=== PATIENT | male | born 1945 | race Caucasian/White ===

== ENCOUNTER 2022-01-29 19:00 | Inpatient (IN) | payer MEDICARE, OTHER ==
[2022-01-29] MEDS ORDERED: FUROSEMIDE 10 MG/ML 4 ML VIAL IV STA (19:17)
[2022-01-29] MEDS ORDERED: IPRATROPIUM-ALBUTEROL 3 ML NEB INHALATION STA (19:17)
--- NOTE | 2022-01-29 19:20 | ED ---
SOB HPI - General Chief Complaint: Shortness of Breath Stated Complaint: SOB Time Seen by Provider: 01/29/22 19:00 Source: patient, EMS, RN notes reviewed Mode of arrival: EMS Limitations: no limitations - History of Present Illness Initial Comments: 68-year-old male history of renal failure and dialysis whose last dialysis was this morning who states she's had progressively worsening shortness of breath for the past week with exertional dyspnea. He states he been going 50 feet today after dialysis who is very short of breath he uses a walker normally. No fevers chills no nausea vomiting sweats he is a former smoker but denies any history of COPD he states he does feel better with oxygen on however. MD Complaint: shortness of breath - Related Data Allergies Allergy/AdvReac Type Severity Reaction Status Date / Time No Known Allergies Allergy Verified 01/29/22 19:11 Review of Systems ROS Statement: Those systems with pertinent positive or pertinent negative responses have been documented in the HPI. ROS Other: All systems not noted in ROS Statement are negative. Past Medical History Past Medical History: Dialysis, Renal Disease Additional Past Medical History / Comment(s): Heart murmur History of Any Multi-Drug Resistant Organisms: None Reported Additional Past Surgical History / Comment(s): Kidney transplant Past Psychological History: No Psychological Hx Reported Smoking Status: Former smoker Past Alcohol Use History: Rare Past Drug Use History: None Reported General Exam - General Exam Comments Initial Comments: This is a well-developed well-nourished awake alert oriented 4 male Limitations: no limitations General appearance: alert, anxious Head exam: Present: atraumatic, normocephalic, normal inspection Eye exam: Present: normal appearance, PERRL, EOMI. Absent: scleral icterus, conjunctival injection, periorbital swelling ENT exam: Present: normal exam, mucous membranes moist Neck exam: Present: other (He does have a soft collar on he states he had a cervical fracture over a year ago and aggravated it this past June when he fell down escalator. No deficits.). Absent: tenderness, meningismus, lymphadenopathy Respiratory exam: Present: rales, decreased breath sounds (No surgery or bruits). Absent: respiratory distress, wheezes, rhonchi, stridor Cardiovascular Exam: Present: regular rate, normal rhythm, normal heart sounds. Absent: systolic murmur, diastolic murmur, rubs, gallop, clicks GI/Abdominal exam: Present: soft, normal bowel sounds. Absent: distended, tenderness, guarding, rebound, rigid Extremities exam: Present: full ROM, pedal edema, other (Patient is demonstrating sluggish capillary refill left toes and foot.). Absent: tenderness, joint swelling, calf tenderness Back exam: Present: normal inspection Neurological exam: Present: alert, oriented X3, CN II-XII intact Psychiatric exam: Present: normal affect, normal mood Skin exam: Present: warm, dry, intact, normal color. Absent: rash Course Vital Signs 01/29/22 01/29/22 01/29/22 19:04 19:55 20:06 Temperature 98.2 F Pulse Rate 94 86 86 Respiratory 20 Rate Blood Pressure 102/83 O2 Sat by Pulse 98 Oximetry - Reevaluation(s) Reevaluation #1: 01/29/22 20:47 Voice the patient finds that he does still somewhat improved on further questio rupert the patient does state he he's had a flushed feeling and felt hot recently but no overt fevers chills or sweats. He does feel as if he does better with oxygen however. Medical Decision Making - Medical Decision Making I did discuss findings with patient family patient will be admitted to the [facility] group with consultation by Dr. Rios as well as cardiology. No old EKGs to compare the current one with. Patient just recently moved up here from [place] 10 days ago. - Lab Data Result diagrams: 01/29/22 19:26 01/29/22 19:26 Lab Results 01/29/22 01/29/22 01/29/22 Range/Units 19:26 19:26 19:26 WBC 5.6 (3.8-10.6) k/uL RBC 3.92 L (4.30-5.90) m/uL Hgb 12.2 L (13.0-17.5) gm/dL Hct 39.0 (39.0-53.0) % MCV 99.4 (80.0-100.0) fL MCH 31.2 (25.0-35.0) pg MCHC 31.4 (31.0-37.0) g/dL RDW 14.2 (11.5-15.5) % Plt Count 106 L (150-450) k/uL MPV 11.8 Neutrophils % 80 % Lymphocytes % 9 % Monocytes % 8 % Eosinophils % 1 % Basophils % 1 % Neutrophils # 4.5 (1.3-7.7) k/uL Lymphocytes # 0.5 L (1.0-4.8) k/uL Monocytes # 0.4 (0-1.0) k/uL Eosinophils # 0.1 (0-0.7) k/uL Basophils # 0.1 (0-0.2) k/uL PT 12.6 H (9.0-12.0) sec INR 1.2 H (<1.2) APTT 24.6 (22.0-30.0) sec Sodium 139 (137-145) mmol/L Potassium 4.3 (3.5-5.1) mmol/L Chloride 94 L (98-107) mmol/L Carbon Dioxide 29 (22-30) mmol/L Anion Gap 16 mmol/L BUN 31 H (9-20) mg/dL Creatinine 3.45 H (0.66-1.25) mg/dL Est GFR (CKD-EPI)AfAm 19 (>60 ml/min/1.73 sqM) Est GFR (CKD-EPI)NonAf 16 (>60 ml/min/1.73 sqM) Glucose 102 H (74-99) mg/dL Plasma Lactic Acid Ryan (0.7-2.0) mmol/L Calcium 8.3 L (8.4-10.2) mg/dL Magnesium 1.8 (1.6-2.3) mg/dL Total Bilirubin 0.8 (0.2-1.3) mg/dL AST 41 (17-59) U/L ALT 25 (4-49) U/L Alkaline Phosphatase 121 (38-126) U/L Troponin I (0.000-0.034) ng/mL NT-Pro-B Natriuret Pep pg/mL Total Protein 7.1 (6.3-8.2) g/dL Albumin 4.1 (3.5-5.0) g/dL 01/29/22 01/29/22 01/29/22 Range/Units 19:26 19:26 19:26 WBC (3.8-10.6) k/uL RBC (4.30-5.90) m/uL Hgb (13.0-17.5) gm/dL Hct (39.0-53.0) % MCV (80.0-100.0) fL MCH (25.0-35.0) pg MCHC (31.0-37.0) g/dL RDW (11.5-15.5) % Plt Count (150-450) k/uL MPV Neutrophils % % Lymphocytes % % Monocytes % % Eosinophils % % Basophils % % Neutrophils # (1.3-7.7) k/uL Lymphocytes # (1.0-4.8) k/uL Monocytes # (0-1.0) k/uL Eosinophils # (0-0.7) k/uL Basophils # (0-0.2) k/uL PT (9.0-12.0) sec INR (<1.2) APTT (22.0-30.0) sec Sodium (137-145) mmol/L Potassium (3.5-5.1) mmol/L Chloride (98-107) mmol/L Carbon Dioxide (22-30) mmol/L Anion Gap mmol/L BUN (9-20) mg/dL Creatinine (0.66-1.25) mg/dL Est GFR (CKD-EPI)AfAm (>60 ml/min/1.73 sqM) Est GFR (CKD-EPI)NonAf (>60 ml/min/1.73 sqM) Glucose (74-99) mg/dL Plasma Lactic Acid Ryan 2.3 H* (0.7-2.0) mmol/L Calcium (8.4-10.2) mg/dL Magnesium (1.6-2.3) mg/dL Total Bilirubin (0.2-1.3) mg/dL AST (17-59) U/L ALT (4-49) U/L Alkaline Phosphatase (38-126) U/L Troponin I 0.234 H* (0.000-0.034) ng/mL NT-Pro-B Natriuret Pep 97459 pg/mL Total Protein (6.3-8.2) g/dL Albumin (3.5-5.0) g/dL - EKG Data -: EKG Interpreted by Ca EKG shows normal: sinus rhythm EKG Comments: Sinus rhythm rate of 91. Interval 168 QRS duration 106 QT/QTC 393/441 borderline left axis deviation nonspecific T-wave configuration PVCs noted - Radiology Data Radiology results: report reviewed (Imaging reviewed evidence a right middle lobe infiltrate.), image reviewed Disposition Clinical Impression: Non-STEMI (non-ST elevated myocardial infarction), Pneumonia, Chronic renal failure, Bronchospasm Disposition: ADMITTED IP TO THIS HOSP Condition: Fair Referrals: None,Stated [Primary Care Provider] - 1-2 days Decision Date: 01/29/22 Decision Time: 20:53
[2022-01-29 19:35] LABS: Basophils # (A) 0.1 k/uL (0-0.2); Basophils % (A) 1 %; Eosinophils # (A) 0.1 k/uL (0-0.7); Eosinophils % (A) 1 %; HGB 12.2 gm/dL (13.0-17.5); Lymphocytes # (A) 0.5 k/uL (1.0-4.8); Lymphocytes % (A) 9 %; MCH 31.2 pg (25.0-35.0); MCHC 31.4 g/dL (31.0-37.0); MCV 99.4 fL (80.0-100.0); Mean Platelet Volume 11.8; Monocytes # (A) 0.4 k/uL (0-1.0); Monocytes % (A) 8 %; Neutrophils # (A) 4.5 k/uL (1.3-7.7); Neutrophils % (A) 80 %; Platelet Count 106 k/uL (150-450); RBC 3.92 m/uL (4.30-5.90); RDW 14.2 % (11.5-15.5); WBC 5.6 k/uL (3.8-10.6)
--- NOTE | 2022-01-29 19:41 | XR ---
EXAMINATION TYPE: XR chest 2V DATE OF EXAM: 01/29/2022 7:36 PM COMPARISON: None TECHNIQUE: XR chest 2V Frontal and lateral views of the chest. CLINICAL INDICATION:Male, 76 years old with history of difficulty breathing; FINDINGS: Lungs/Pleura: Obscuration of the right heart border with airspace opacities in the right lung base. N o evidence pneumothorax pleural effusion. Pulmonary vascularity: Unremarkable. Heart/mediastinum: Cardiomediastinal silhouette is unremarkable. Atherosclerotic calcifications are seen in the aorta. Musculoskeletal: No acute osseous pathology. IMPRESSION: Right middle lobe pneumonia.
[2022-01-29 19:44] LABS: Albumin 4.1 g/dL (3.5-5.0); Calcium 8.3 mg/dL (8.4-10.2); Magnesium 1.8 mg/dL (1.6-2.3); Potassium 4.3 mmol/L (3.5-5.1); Total Bilirubin 0.8 mg/dL (0.2-1.3); Total Protein 7.1 g/dL (6.3-8.2)
[2022-01-29 20:20] LABS: INR 1.2 (<1.2); Partial Thromboplastin Time 24.6 sec (22.0-30.0); Prothrombin Time 12.6 sec (9.0-12.0)
[2022-01-29] MEDS ORDERED: cefTRIAXone IN SWFI 1,000 MG/10 ML SYRINGE IVP STA (20:36)
[2022-01-29] MEDS ORDERED: NITROGLYCERIN SL TABS 0.4 MG TAB SUBLINGUAL PRN (20:53)
[2022-01-29] MEDS ORDERED: HEPARIN SODIUM 1,000 UN/ML (10ML VL) IV ONE (20:53)
[2022-01-29] MEDS ORDERED: AZITHROMYCIN 500 MG in SODIUM CHLORIDE 0.9% 250 ML IVPB STA (20:56)
[2022-01-29] MEDS: HEPARIN SOD,PORK IN 0.45% NACL 25,000 UNIT in 0.45% NACL 1 250ML.BAG IV SCH (22:02)
--- NOTE | 2022-01-30 03:04 | P.HPIM ---
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 he has not established OP docs for follow up. but has been receiving regular HD. last session was this morning of 01/29 after his session of HD today, he noticed that he got really short of breath after very short distance of 50 feet. this is unusual to him , he also reports SOB at rest over the past few days, this has been progressively getting worse, he also reports orthopnea. productive cough of yellowish sputum , denies any hemoptysis denies chest pain , denies fever, but does report chills. he is not aware of any sick contacts. He has travelled by car for many hours, and took very little stops if any. he denies any new calf tenderness, denies any history of blood clots. he is not on blood thinner at home. he has history of ESRD for many years now , he had renal transplant 1992 that failed later, and then had another transplant 1995 that has only recently failed and went back to HD May 2021. since he moved to [place] he has been receiving his HD 3 times a week as scheduled , no missed sessions. he reports an old neck injury for which he has been wearing soft neck collar as needed for pain, and was switched by RN to stiff neck collar. he otherwise denies any GI bleeding , abd pain , or focal neuro deficits. he normally walks with a walker. workup in the ED showed no leukocytosis , Hgb 12.2 lactic acidosis . elevated cr with history of ESRD. elevated trops . CXR showed right mid lobe infilterate. Review of Systems Pertinent positives as noted in HPI. All other systems were reviewed and are negative Past Medical History Past Medical History: Dialysis, Renal Disease Additional Past Medical History / Comment(s): Heart murmur History of Any Multi-Drug Resistant Organisms: None Reported Additional Past Surgical History / Comment(s): Kidney transplant Past Psychological History: No Psychological Hx Reported Smoking Status: Former smoker Past Alcohol Use History: Rare Past Drug Use History: None Reported - Past Family History famly Additional Family Medical History / Comment(s): father of stroke , mother pancreatic cancer Medications and Allergies Home Medications Medication Instructions Recorded Confirmed Type Atorvastatin [Lipitor] 10 mg PO DIRECTED 01/29/22 01/29/22 History Cholecalciferol [Vitamin D3 (25 25 mcg PO DAILY 01/29/22 01/29/22 History Mcg = 1000 Iu)] [place]-3/Dha/Epa/Fish Oil [Fish Oil 1 cap PO DAILY 01/29/22 01/29/22 History 1,000 mg Softgel] Ondansetron [Zofran] 4 mg PO DAILY PRN 01/29/22 01/29/22 History Sevelamer Carbonate 1,600 mg PO TID-W/MEALS 01/29/22 01/29/22 History Unknown Depression Medication 1 dose PO DAILY 01/29/22 01/29/22 History oxyCODONE-APAP 5-325MG [Percocet 1 tab PO BID PRN 01/29/22 01/29/22 History 5-325 mg] polyethylene glycoL 3350 [Miralax] 17 gm PO DAILY PRN 01/29/22 01/29/22 History rOPINIRole HCL [Requip] 2 mg PO DIRECTED 01/29/22 01/29/22 History Allergies Allergy/AdvReac Type Severity Reaction Status Date / Time No Known Allergies Allergy Verified 01/29/22 22:19 Physical Exam Vitals: Vital Signs Temp Pulse Resp BP Pulse Ox 01/30/22 00:36 98.3 F 96 24 99/66 100 01/29/22 21:38 85 20 117/80 98 01/29/22 20:06 86 01/29/22 19:55 86 01/29/22 19:04 98.2 F 94 20 102/83 98 Intake and Output 01/29/22 01/29/22 01/30/22 14:59 22:59 06:59 Other: Weight 68.039 kg Constitutional: No acute distress, conversant, pleasant Eyes: Anicteric sclerae, moist conjunctiva, Pupils equal round reactive to light ENMT: NC/AT Oropharynx clear, no erythema, or exudates Neck: neck fixed in stiff neck collar Lungs: Clear to auscultation, no wheezing or rales Clear to percussion Normal respiratory effort, no accessory muscle use Cardiovascular: Heart regular in rate and rhythm, No murmurs, gallops, or rubs No peripheral edema Abdominal: Soft Nontender, no guarding, rebound or rigidity Abdomen moving with respiration Normoactive bowel sounds No hepatomegaly, No splenomegaly No palpable mass No abdominal wall hernia noted Skin: Normal temperature, tone, texture, turgor No induration No subcutaneous nodules No rash, lesions No ulcers Extremities: positive left arm fistula thrill No digital cyanosis No clubbing post tibial pulses intact and symmetrical Radial pulses intact and symmetrical No calf tenderness Psychiatric: Alert and oriented to person, place and time Appropriate affect fair judgement Neuro Muscles Strength 4/5 in all 4 extremities Sensation to light touch grossly present throughout Cranial nerves II-XII grossly intact No focal sensory deficits Lymphatics: no palpable cervical or supraclavicular , or inguinal lymph nodes Results CBC & Chem 7: 01/29/22 19:01/29/22: Labs: Abnormal Lab Results - Last 24 Hours (Table) 01/29/22 01/29/22 01/29/22 Range/Units 19:26 19: 19: RBC 3.92 L (4.30-5.90) m/uL Hgb 12.2 L (13.0-17.5) gm/dL Plt Count 106 L (150-450) k/uL Lymphocytes # 0.5 L (1.0-4.8) k/uL PT 12.6 H (9.0-12.0) sec INR 1.2 H (<1.2) Chloride 94 L (98-107) mmol/L BUN 31 H (9-20) mg/dL Creatinine 3.45 H (0.66-1.25) mg/dL Glucose 102 H (74-99) mg/dL Plasma Lactic Acid Ryan (0.7-2.0) mmol/L Calcium 8.3 L (8.4-10.2) mg/dL Troponin I (0.000-0.034) ng/mL 01/29/22 01/29/22 01/29/22 Range/Units 19:26 19: 22:30 RBC (4.30-5.90) m/uL Hgb (13.0-17.5) gm/dL Plt Count (150-450) k/uL Lymphocytes # (1.0-4.8) k/uL PT (9.0-12.0) sec INR (<1.2) Chloride (98-107) mmol/L BUN (9-20) mg/dL Creatinine (0.66-1.25) mg/dL Glucose (74-99) mg/dL Plasma Lactic Acid Ryan 2.3 H* (0.7-2.0) mmol/L Calcium (8.4-10.2) mg/dL Troponin I 0.234 H* 0.226 H* (0.000-0.034) ng/mL 01/30/22 Range/Units 00:07 RBC (4.30-5.90) m/uL Hgb (13.0-17.5) gm/dL Plt Count (150-450) k/uL Lymphocytes # (1.0-4.8) k/uL PT (9.0-12.0) sec INR (<1.2) Chloride (98-107) mmol/L BUN (9-20) mg/dL Creatinine (0.66-1.25) mg/dL Glucose (74-99) mg/dL Plasma Lactic Acid Ryan (0.7-2.0) mmol/L Calcium (8.4-10.2) mg/dL Troponin I 0.236 H* (0.000-0.034) ng/mL Assessment and Plan Assessment: community acquired lobar pneumonia lactic acidosis follow up cultures urine legionella ag initiate on azithromycin and rocephin symptomatic control supplemental oxygen as needed tylenol for fever CXR showed right lobar pneumonia ESRD on HD nephrology consult Progressive SOB , rule out underlying cardiac disease elevated trops possibly secondary to ESRD trend trops monitoring tech cardiology consult EKG no acute ST changes check Echo cardiogram heparin gtt continue aspirin statin nitro prn for chest pain full code DVT PPX on heparin gtt for ACS
[2022-01-30] MEDS ORDERED: NALOXONE 0.4 MG/ML 1 ML VIAL IV PRN (03:05)
[2022-01-30] MEDS ORDERED: MELATONIN 3 MG TABLET PO PRN (03:05)
[2022-01-30] MEDS ORDERED: ACETAMINOPHEN TAB 325 MG TAB PO PRN (03:05)
[2022-01-30] MEDS: SEVELAMER 800 MG TAB PO SCH ×3 (08:15→20:51)
[2022-01-30] MEDS ORDERED: ASPIRIN 325 MG TAB PO SCH (09:00)
[2022-01-30] MEDS: IPRATROPIUM-ALBUTEROL 3 ML NEB INHALATION PRN (11:30)
--- NOTE | 2022-01-30 11:50 | P.NPCON ---
History of Present Illness - Reason for Consult end stage renal disease - History of Present Illness Patient is a 76-year-old male with end-stage renal disease on hemodialysis on a Friday schedule. Patient has just moved from [place] about 10 days ago. He has a previous history of 2 kidney transplants the first one in 1992 which was at donor allograft and the second one in 1995 from his niece which lasted for about 25 years. Patient was started on hemodialysis in May 2021. Patient is admitted to the hospital with complaints of shortness of breath. He did have his hemodialysis treatment in the morning at with about 2 L of ultrafiltration. Patient reported feeling weak and tired with the possible low-grade fever. He does not have any significant urine output No previous issues with fluid overload and increased weight gains during treatments. Next Chest x-ray shows right middle lobe pneumonia Review of Systems As per HPI Past Medical History Past Medical History: Dialysis, Renal Disease Additional Past Medical History / Comment(s): Heart murmur History of Any Multi-Drug Resistant Organisms: None Reported Additional Past Surgical History / Comment(s): Kidney transplant Past Psychological History: No Psychological Hx Reported Smoking Status: Former smoker Past Alcohol Use History: Rare Past Drug Use History: None Reported - Past Family History famly Additional Family Medical History / Comment(s): father of stroke , mother pancreatic cancer Medications and Allergies Home Medications Medication Instructions Recorded Confirmed Type Atorvastatin [Lipitor] 10 mg PO HS 01/29/22 01/30/22 History Cholecalciferol [Vitamin D3 (25 25 mcg PO DAILY 01/29/22 01/29/22 History Mcg = 1000 Iu)] [place]-3/Dha/Epa/Fish Oil [Fish Oil 1 cap PO DAILY 01/29/22 01/29/22 History 1,000 mg Softgel] Ondansetron [Zofran] 4 mg PO DAILY PRN 01/29/22 01/29/22 History Sevelamer Carbonate 1,600 mg PO TID-W/MEALS 01/29/22 01/29/22 History oxyCODONE-APAP 5-325MG [Percocet 1 tab PO BID PRN 01/29/22 01/29/22 History 5-325 mg] polyethylene glycoL 3350 [Miralax] 17 gm PO DAILY PRN 01/29/22 01/29/22 History rOPINIRole HCL [Requip] 2 mg PO BID 01/29/22 01/30/22 History Bumetanide [BUMEX] 2 mg PO BID 01/30/22 01/30/22 History Isosorbide Mononitrate ER [Imdur] 30 mg PO DAILY 01/30/22 01/30/22 History Magnesium Oxide [Mag-Ox] 400 mg PO DAILY 01/30/22 01/30/22 History PARoxetine [Paxil] 10 mg PO DAILY 01/30/22 01/30/22 History Allergies Allergy/AdvReac Type Severity Reaction Status Date / Time No Known Allergies Allergy Verified 01/29/22 22:19 Physical Exam Vitals: Vital Signs Temp Pulse Resp BP Pulse Ox 01/30/22 11:37 90 16 01/30/22 11:31 91 16 01/30/22 08:07 97.9 F 95 18 126/91 98 01/30/22 07:43 100 01/30/22 07:20 97.9 F 100 19 116/93 99 01/30/22 00:36 98.3 F 96 24 99/66 100 01/29/22 21:38 85 20 117/80 98 01/29/22 20:06 86 01/29/22 19:55 86 01/29/22 19:04 98.2 F 94 20 102/83 98 Intake and Output 01/29/22 01/30/22 01/30/22 22:59 06:59 14:59 Intake Total 44.363 Balance 44.363 Intake: Intake, IV Titration 44.363 Amount Heparin Sod,Pork in 0.45% 44.363 NaCl 25,000 unit In 0.45 % NaCl 1 250ml.bag @ 12 UNITS/KG/HR 8.165 mls/hr IV .Q24H [facility] Rx#: [id number] Other: Weight 68.039 kg Patient is awake, comfortable, not in any acute distress Alert oriented 3 Examination of the heart S1 and S2 Examination of the lungs bilateral breath sounds are heard Abdomen is soft nontender Examination of the lower extremities shows no significant edema [employer] exam grossly intact Results - Lab Results Most recent lab results Calcium 8.3 mg/dL (8.4-10.2) L 01/29/22 19:26 Magnesium 1.8 mg/dL (1.6-2.3) 01/29/22 19:26 01/29/22 19:26 01/29/22 19:26 Assessment and Plan Assessment: 1. End-stage renal disease on hemodialysis on a Friday schedule via left arm AV fistula 2. Acute hypoxic respiratory failure secondary to pneumonia 3. Right middle lobe pneumonia maintained on antibiotics 4. History of 2 previous kidney transplants initial one in 1992 which was a donor and the second one in 1995 which lasted for about 25 years. This was from his knees. Patient was restarted on dialysis in May 2021 5. CK D mineral bone disorder Plan: Hemodialysis in a.m. Continue antibiotics for pneumonia No evidence of significant fluid overload currently to warrant an extra treatment today. Continue with phosphate binders Thank you for the consultation. We'll continue to follow the patient with you during his hospitalization
--- NOTE | 2022-01-30 13:34 | P.PN ---
Subjective Progress Note Date: 01/30/22 Principal diagnosis: sob Patient is feeling okay currently. Still having shortness of breath. No chest pain. No significant cough. No fevers or chills. Currently requiring 2 L of nasal cannula. Objective - Vital Signs Vital signs: Vital Signs Temp 97.9 F 01/30/22 08:07 Pulse 90 01/30/22 11:37 Resp 16 01/30/22 11:37 BP 126/91 01/30/22 08:07 Pulse Ox 98 01/30/22 08:07 FiO2 Intake & Output 01/29/22 01/30/22 01/30/22 18:59 06:59 18:59 Intake Total 44.363 Balance 44.363 Weight 68.039 kg Intake: Intake, IV Titration 44.363 Amount Heparin Sod,Pork in 0.45% 44.363 NaCl 25,000 unit In 0.45 % NaCl 1 250ml.bag @ 12 UNITS/KG/HR 8.165 mls/hr IV .Q24H [facility] Rx#: [id number] - Exam Constitutional: No acute distress, conversant, pleasant Eyes:Anicteric sclerae, moist conjunctiva, no lid-lag, PERRLA, ENMT: Oropharynx clear, no erythema, exudates Neck: Supple, FROM, no masses, or JVD, No carotid bruits, No thyromegaly Lungs: Clear to auscultation, Clear to percussion, Normal respiratory effort, no accessory muscle use Cardiovascular: Heart regular in rate and rhythm, No murmurs, gallops, or rubs, No peripheral edema Abdominal: Soft, Nontender, no guarding, rebound or rigidity, Normoactive bowel sounds, No hepatomegaly, No splenomegaly, No palpable mass Skin: Normal temperature, tone, texture, turgor, no induration, No subcutaneous nodules, No rash, lesions, No ulcers Extremities: No digital cyanosis, No clubbing, Pedal pulses intact and symmetrical, Radial pulses intact and symmetrical, No calf tenderness Psychiatric: Alert and oriented to person, place and time, appropriate affect, intact judgement Neuro: Muscles Strength 5/5 in all 4 extremities, Sensation to light touch grossly present throughout, Cranial nerves II-XII grossly intact, no focal sensory deficits - Labs CBC & Chem 7: 01/29/22 19:26 01/29/22 19:26 Labs: Abnormal Lab Results - Last 24 Hours (Table) 01/29/22 01/29/22 01/29/22 Range/Units 19:26 19:26 19:26 RBC 3.92 L (4.30-5.90) m/uL Hgb 12.2 L (13.0-17.5) gm/dL Plt Count 106 L (150-450) k/uL Lymphocytes # 0.5 L (1.0-4.8) k/uL PT 12.6 H (9.0-12.0) sec INR 1.2 H (<1.2) APTT (22.0-30.0) sec Chloride 94 L (98-107) mmol/L BUN 31 H (9-20) mg/dL Creatinine 3.45 H (0.66-1.25) mg/dL Glucose 102 H (74-99) mg/dL Plasma Lactic Acid Ryan (0.7-2.0) mmol/L Calcium 8.3 L (8.4-10.2) mg/dL Troponin I (0.000-0.034) ng/mL Procalcitonin (0.02-0.09) ng/mL 01/29/22 01/29/22 01/29/22 Range/Units 19:26 19:26 20:39 RBC (4.30-5.90) m/uL Hgb (13.0-17.5) gm/dL Plt Count (150-450) k/uL Lymphocytes # (1.0-4.8) k/uL PT (9.0-12.0) sec INR (<1.2) APTT (22.0-30.0) sec Chloride (98-107) mmol/L BUN (9-20) mg/dL Creatinine (0.66-1.25) mg/dL Glucose (74-99) mg/dL Plasma Lactic Acid Ryan 2.3 H* (0.7-2.0) mmol/L Calcium (8.4-10.2) mg/dL Troponin I 0.234 H* (0.000-0.034) ng/mL Procalcitonin 0.23 H (0.02-0.09) ng/mL 01/29/22 01/30/22 01/30/22 Range/Units 22:30 00:07 02:50 RBC (4.30-5.90) m/uL Hgb (13.0-17.5) gm/dL Plt Count (150-450) k/uL Lymphocytes # (1.0-4.8) k/uL PT (9.0-12.0) sec INR (<1.2) APTT 50.2 H (22.0-30.0) sec Chloride (98-107) mmol/L BUN (9-20) mg/dL Creatinine (0.66-1.25) mg/dL Glucose (74-99) mg/dL Plasma Lactic Acid Ryan (0.7-2.0) mmol/L Calcium (8.4-10.2) mg/dL Troponin I 0.226 H* 0.236 H* (0.000-0.034) ng/mL Procalcitonin (0.02-0.09) ng/mL Assessment and Plan Plan: Community acquired lobar pneumonia Lactic acidosis, resolved follow up cultures urine legionella ag Continue azithromycin and rocephin supplemental oxygen as needed tylenol for fever as needed ESRD on HD nephrology is following Progressive SOB likely secondary to above, rule out underlying cardiac disease Flattly elevated trops possibly secondary to ESRD 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
--- NOTE | 2022-01-30 14:00 | P.CNPUL ---
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 Most recently patient was restarted on hemodialysis in May 2021. Other medical history includes smoking history, and bowel resection for bowel obstruction. Patient carries a [id number] smoki ng history, in remission for the past 6 years. He denies having a diagnosis of COPD, not any inhalers or breathing treatments on a regular basis, he recently started wearing oxygen. His hemodialysis is on Tuesdays and Saturdays. On 01/29/2022 patient presented to the emergency department per EMS, with complaints of progressive shortness of breath for the past week. Patient could hardly walk 50 feet, denied any chest pain, no fever, no chills, no nausea, mild cough, with some phlegm production. Patient has a c-collar neck brace in place for history of neck fracture 2 years ago and a fall more recently. Chest x-ray in emergency department showed right middle lobe pneumonia. Patient had a white count of 5.6, hemoglobin of 12.2, electrolytes were unremarkable, sodium was 139, potassium is 4.3, BUN was 31 and creatinine is 3.45, his proBNP was 68,200, troponins were 0.234, 0.226, 0.236. Progesterone level was 0.23 not significantly elevated especially in view of his impaired renal function. COVID-19 PCR was negative. Patient was started on azithromycin and Rocephin for possibility of underlying community acquired pneumonia, he was evaluated by cardiology and was started on heparin infusion for possibility non-ST elevated myocardial infarction. Review of Systems All systems: negative Constitutional: Reports weakness, Denies chills, Denies fever Eyes: denies blurred vision, denies pain Ears, nose, mouth and throat: Denies headache, Denies sore throat Cardiovascular: Denies chest pain, Denies shortness of breath Respiratory: Reports dyspnea, Denies cough Gastrointestinal: Denies abdominal pain, Denies diarrhea, Denies nausea, Denies vomiting Musculoskeletal: Denies myalgias Integumentary: Denies pruritus, Denies rash Neurological: Denies numbness, Denies weakness Psychiatric: Denies anxiety, Denies depression Endocrine: Denies fatigue, Denies weight change Past Medical History Past Medical History: Dialysis, Renal Disease Additional Past Medical History / Comment(s): Heart murmur History of Any Multi-Drug Resistant Organisms: None Reported Additional Past Surgical History / Comment(s): Kidney transplant Past Psychological History: No Psychological Hx Reported Smoking Status: Former smoker Past Alcohol Use History: Rare Past Drug Use History: None Reported - Past Family History famly Additional Family Medical History / Comment(s): father of stroke , mother pancreatic cancer Medications and Allergies Home Medications Medication Instructions Recorded Confirmed Type Atorvastatin [Lipitor] 10 mg PO HS 01/29/22 01/30/22 History Cholecalciferol [Vitamin D3 (25 25 mcg PO DAILY 01/29/22 01/29/22 History Mcg = 1000 Iu)] [place]-3/Dha/Epa/Fish Oil [Fish Oil 1 cap PO DAILY 01/29/22 01/29/22 History 1,000 mg Softgel] Ondansetron [Zofran] 4 mg PO DAILY PRN 01/29/22 01/29/22 History Sevelamer Carbonate 1,600 mg PO TID-W/MEALS 01/29/22 01/29/22 History oxyCODONE-APAP 5-325MG [Percocet 1 tab PO BID PRN 01/29/22 01/29/22 History 5-325 mg] polyethylene glycoL 3350 [Miralax] 17 gm PO DAILY PRN 01/29/22 01/29/22 History rOPINIRole HCL [Requip] 2 mg PO BID 01/29/22 01/30/22 History Bumetanide [BUMEX] 2 mg PO BID 01/30/22 01/30/22 History Isosorbide Mononitrate ER [Imdur] 30 mg PO DAILY 01/30/22 01/30/22 History Magnesium Oxide [Mag-Ox] 400 mg PO DAILY 01/30/22 01/30/22 History PARoxetine [Paxil] 10 mg PO DAILY 01/30/22 01/30/22 History Allergies Allergy/AdvReac Type Severity Reaction Status Date / Time No Known Allergies Allergy Verified 01/29/22 22:19 Physical Exam Vitals: Vital Signs Temp Pulse Resp BP Pulse Ox 01/30/22 11:37 90 16 01/30/22 11:31 91 16 01/30/22 08:07 97.9 F 95 18 126/91 98 01/30/22 07:43 100 01/30/22 07:20 97.9 F 100 19 116/93 99 01/30/22 00:36 98.3 F 96 24 99/66 100 01/29/22 21:38 85 20 117/80 98 01/29/22 20:06 86 01/29/22 19:55 86 01/29/22 19:04 98.2 F 94 20 102/83 98 Intake and Output 01/29/22 01/30/22 01/30/22 22:59 06:59 14:59 Intake Total 44.363 Balance 44.363 Intake: Intake, IV Titration 44.363 Amount Heparin Sod,Pork in 0.45% 44.363 NaCl 25,000 unit In 0.45 % NaCl 1 250ml.bag @ 12 UNITS/KG/HR 8.165 mls/hr IV .Q24H COUNT [facility]CLUDES [facility] Rx#: [id number] Other: Weight 68.039 kg GENERAL EXAM: Alert, very pleasant, 76-year-old white male, sitting up in the recliner, in the emergency department, no acute distress, on 2 L of oxygen satting 98%, comfortable in no apparent distress. HEAD: Normocephalic/atraumatic. EYES: Normal reaction of pupils, equal size. Conjunctiva pink, sclera white. NOSE: Clear with pink turbinates. THROAT: No erythema or exudates. NECK: No masses, no JVD, no thyroid enlargement, no adenopathy. Patient has a C collar neck brace in place CHEST: No chest wall deformity. Symmetrical expansion. LUNGS: Equal air entry with no crackles, wheeze, rhonchi or dullness. CVS: Regular rate and rhythm, normal S1 and S2, no gallops, no murmurs, no rubs ABDOMEN: Soft, nontender. No hepatosplenomegaly, normal bowel sounds, no guarding or rigidity. EXTREMITIES: No clubbing, no edema, no cyanosis, 2+ pulses and upper and lower extremities. MUSCULOSKELETAL: Muscle strength and tone normal. SPINE: No scoliosis or deformity SKIN: No rashes CENTRAL NERVOUS SYSTEM: Alert and oriented -3. No focal deficits, tone is normal in all 4 extremities. PSYCHIATRIC: Alert and oriented -3. Appropriate affect. Intact judgment and insight. Results - Laboratory Findings CBC and BMP: 01/29/22 19:26 01/29/22 19:26 PT/INR, D-dimer PT 12.6 sec (9.0-12.0) H 01/29/22 19: INR 1.2 (<1.2) H 01/29/22 19:26 Abnormal lab findings: Abnormal Labs 01/29/22 01/29/22 01/29/22 19:26 19:26 19:26 RBC 3.92 L Hgb 12.2 L Plt Count 106 L Lymphocytes # 0.5 L PT 12.6 H INR 1.2 H APTT Chloride 94 L BUN 31 H Creatinine 3.45 H Glucose 102 H Plasma Lactic Acid Ryan Calcium 8.3 L Troponin I Procalcitonin 01/29/22 01/29/22 01/29/22 19: 19: 20:39 RBC Hgb Plt Count Lymphocytes # PT INR APTT Chloride BUN Creatinine Glucose Plasma Lactic Acid Ryan 2.3 H* Calcium Troponin I 0.234 H* Procalcitonin 0.23 H 01/29/22 01/30/22 01/30/22 22:30 00:07 02:50 RBC Hgb Plt Count Lymphocytes # PT INR APTT 50.2 H Chloride BUN Creatinine Glucose Plasma Lactic Acid Ryan Calcium Troponin I 0.226 H* 0.236 H* Procalcitonin - Diagnostic Findings Chest x-ray: report reviewed, image reviewed Assessment and Plan Plan: Assessment: #1. Shortness of breath, with the possibility of coronary acquired pneumonia, and acute exacerbation of congestive heart failure #2. Elevated troponins, rule out non-ST elevated myocardial infarction #3. End-stage renal disease on hemodialysis on Friday schedule #4. History of smoking, currently in remission for the past 6 years, patient Shirley [id number] smoking history #5. Chronic hypoxic respiratory failure patient recently started wearing oxygen #6. History of renal transplant 2, in 1992 from a donor, and in 1995 from a living donor, who was patient's niece #7. History of neck fracture, and patient wears a c-collar Plan: Continue antibiotics Continue breathing treatments We will obtain sputum for culture Hemodialysis per nephrology Cardiology recommendations We'll continue to follow his clinical course I have personally seen and examined the patient, performed the documentation and the assessment and plan as written. Number of minutes spent on the visit: [15] Time with Patient: Greater than 30
--- NOTE | 2022-01-30 19:09 | CA ---
Transthoracic Echo Report Name: John Benedict Age: 76 Gender: M : 1945 Exam Date: 01/30/2022 08:48 Exam Location: [facility] Ht (in): 69 Wt (lb): 150 Ordering Physician: Clare Nelson MD Attending/Referring Phys: [id number], Leslie Data Entry Email Processor Irene Luna RDCS Procedure CPT: Indications: orthopnea , progressive SOB Cardiac Hx: Technical Quality: Technically difficult study Contrast 1: Total Dose (mL): Contrast 2: Lumason Total Dose (mL): MEASUREMENTS (Male / Female) Normal Values 2D ECHO LV Diastolic Diameter PLAX 5.3 cm 4.2 - 5.9 / 3.9 - 5.3 cm LV Systolic Diameter PLAX 4.7 cm IVS Diastolic Thickness 1.2 cm 0.6 - 1.0 / 0.6 - 0.9 cm LVPW Diastolic Thickness 1.6 cm 0.6 - 1.0 / 0.6 - 0.9 cm LV Relative Wall Thickness 0.5 RV Internal Dim ED PLAX 3.8 cm LA Systolic Diameter LX 4.8 cm 3.0 - 4.0 / 2.7 - 3.8 cm LA Volume 115.3 cm??? 18 - 58 / 22 - 52 cm??? M-MODE Aortic Root Diameter MM 3.4 cm LA Systolic Diameter MM 5.1 cm LA Ao Ratio MM 1.5 MV E Point Septal Separation 0.9 cm AV Cusp Separation MM 0.7 cm DOPPLER AV Peak Velocity 213.3 cm/s AV Peak Gradient 18.2 mmHg AV Mean Velocity 140.5 cm/s AV Mean Gradient 9.3 mmHg AV Velocity Time Integral 37.7 cm LVOT Peak Velocity 50.9 cm/s LVOT Peak Gradient 1.0 mmHg MV Area PHT 8.5 cm??? Mitral E Point Velocity 70.7 cm/s Mitral A Point Velocity 38.4 cm/s Mitral E to A Ratio 1.8 MV Deceleration Time 88.9 ms MV E' Velocity 3.1 cm/s Mitral E to MV E' Ratio 23.1 TR Peak Velocity 304.9 cm/s TR Peak Gradient 37.2 mmHg Right Ventricular Systolic Press 40.2 mmHg FINDINGS Left Ventricle Left ventricular ejection fraction is estimated at15- 20%. Severely reduced global left ventricular systolic function. Right Ventricle Moderate right ventricular dilatation. Mild pulmonary hypertension. Right Atrium Normal right atrial size. Left Atrium Moderately increased left atrial diameter. Severely increased left atrial volume. Mildly increased left atrial area. Mitral Valve Structurally normal mitral valve. Moderate mitral regurgitation. Aortic Valve Mild aortic stenosis with a peak gradient of 18 mmHg and a mean gradient of 9 mmHg. gradient could be underestimated because of poor LV function. Severe sclerosis Tricuspid Valve Structurally normal tricuspid valve. Moderate tricuspid regurgitation. Pulmonic Valve Pulmonic valve not well visualized. Pericardium Normal pericardium. Aorta Normal size aortic root and proximal ascending aorta. CONCLUSIONS 1. Severely impaired systolic function 2. Moderate mitral and tricuspid regurgitation 3. 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 The severity of the aortic stenosis could be underestimated secondary to the impaired systolic function. Previewed by: Dr. Manuel Russo MD (Electronically Signed) Final Date: 30 January 2022 19:08
[2022-01-30 19:12] LABS: Glucose,Whole Blood 155 mg/dL (70-110)
[2022-01-30] MEDS ORDERED: ATORVASTATIN 10 MG TAB PO SCH (21:00)
[2022-01-30] MEDS ORDERED: AZITHROMYCIN 500 MG TAB PO SCH (21:00)
[2022-01-30] MEDS: METOPROLOL TARTRATE 12.5 MG TAB PO SCH (21:03)
[2022-01-30] MEDS: HEPARIN SOD,PORK IN 0.45% NACL 25,000 UNIT in 0.45% NACL 1 250ML.BAG IV SCH (23:20)
--- NOTE | 2022-01-31 00:38 | CONS ---
CONSULTATION REASON FOR CONSULTATION: Elevated troponin. HISTORY OF PRESENT ILLNESS: This patient is 76 years of age. He came into the hospital complaining of shortness of breath walking short distances, feeling feverish and weak. He also had productive cough with yellowish sputum. He also has end-stage renal disease, on hemodialysis. He had a fracture of cervical spine, I believe he now wears a neck collar for support. I was asked to see him for elevated troponin, but it appears that his troponin is not primary related to any myocardial injury. He has a right middle lobe pneumonia and is currently on antibiotics. He denies any chest discomfort at the time of my evaluation. EKG revealed a sinus mechanism with IVCD, leftward axis, rare PVCs. Laboratory data reveals that the troponin is abnormal, but the pattern is not suggestive of myocardial injury, it seems to be a flat pattern 0.2. PAST MEDICAL HISTORY: Remarkable for end-stage renal disease, CAD, hypertension, and also hyperlipidemia. PHYSICAL EXAMINATION: VITAL SIGNS: Blood pressure is 120/70, pulse rate is about 90, regular. HEENT: Unremarkable. Fundus was not examined by me. NECK: Supple. There is JVD of 1 cm. No carotid bruit. HEART: Reveals S1, S2 with a short systolic murmur at left sternal border. Second heart sound is preserved. LUNGS: Clear. ABDOMEN: Soft, nontender. LOWER EXTREMITIES: Reveal diminished pulses. CENTRAL NERVOUS SYSTEM: Grossly within normal limits. IMPRESSION: 1. Right middle lobe pneumonia. 2. Elevated troponin, not suggestive of myocardial injury. 3. Hypertension. 4. End-stage renal disease, on hemodialysis. 5. Recent cervical spine fracture, on a collar. RECOMMENDATIONS: I am recommending pulmonary evaluation. Add a small dose of beta sal. Check LV function by echocardiogram. The patient will be followed for at least another day until we get the results of the echo. Clinical picture seems that we are dealing with a pneumonia with some hypoxia. I will request Pulmonary evaluation. Thank you very much for the consult. MMODL / IJN: [id number] /
[2022-01-31 00:45] LABS: HDL Cholesterol 64.7 mg/dL (40.00-60.00); Triglycerides 47.3 mg/dL (0.00-149.00)
[2022-01-31 01:13] LABS: Chol/HDL Ratio 1.59 Ratio; LDL Cholesterol,Direct Reflex 34.5 mg/dL (0.00-129.00)
[2022-01-31 03:14] LABS: Basophils % (A) 1 %; Eosinophils # (A) 0.1 k/uL (0-0.7); Eosinophils % (A) 2 %; HCT 39.5 % (39.0-53.0); HGB 12.1 gm/dL (13.0-17.5); Hypochromasia Slight; Lymphocytes # (A) 0.7 k/uL (1.0-4.8); Lymphocytes % (A) 13 %; MCH 30.7 pg (25.0-35.0); MCHC 30.5 g/dL (31.0-37.0); MCV 100.7 fL (80.0-100.0); Macrocytosis Slight; Mean Platelet Volume 11.5; Monocytes # (A) 0.5 k/uL (0-1.0); Monocytes % (A) 9 %; Neutrophils % (A) 74 %; Platelet Count 99 k/uL (150-450); RBC 3.93 m/uL (4.30-5.90); RDW 14.4 % (11.5-15.5); WBC 5.5 k/uL (3.8-10.6)
[2022-01-31 03:22] LABS: Calcium 8.2 mg/dL (8.4-10.2); Potassium 5.1 mmol/L (3.5-5.1)
[2022-01-31] MEDS: SEVELAMER 800 MG TAB PO SCH ×3 (08:07→17:54)
[2022-01-31] MEDS ORDERED: LIDOCAINE 2% GEL 30 ML TUBE TOPICAL PRN (09:48)
--- NOTE | 2022-01-31 10:07 | P.PN ---
Subjective Patient is seen for follow-up for end-stage renal disease. Patient was admitted to the hospital with complaints of shortness of breath which worsened after his dialysis treatment on Friday. Chest x-ray shows evidence of right middle lobe infiltrate. Echocardiogram showed ejection fraction of 20 % with moderate mitral and tricuspid regurgitation. White cell count is not elevated and patient has not had a fever post hospitalization although he complained of feeling warm prior to admission. Patient is scheduled for hemodialysis today. I will repeat a chest x-ray post dialysis and if he is symptomatically improved posttreatment we will arrange for an extra treatment tomorrow for fluid removal. Objective - Vital Signs Vital signs: Vital Signs Temp 97.5 F L 01/31/22 04:00 Pulse 96 01/31/22 04:00 Resp 01/31/22 04:00 BP 143/92 01/31/22 04:00 Pulse Ox 96 01/31/22 04:00 FiO2 Intake & Output 01/30/22 01/31/22 01/31/22 18:59 06:59 18:59 Intake Total 203.172 Balance 203.172 Intake: Intake, IV Titration 203.172 Amount Heparin Sod,Pork in 0.45% 203.172 NaCl 25,000 unit In 0.45 % NaCl 1 250ml.bag @ 12 UNITS/KG/HR 8.165 mls/hr IV .Q24H [facility] Rx#: [id number] Other: # Voids 1 # Bowel Movements 1 - Exam Patient is comfortable Tachypneic Possible wheezing Alert oriented 3 Examination of the heart S1 and S2 Examination lungs bilateral breath sounds are heard bilateral wheezing is heard as well Abdomen is soft nontender Examination of the lower extremities shows no significant edema bilaterally [employer] exam grossly intact - Labs CBC & Chem 7: 01/31/22 02:41 01/31/22 02:41 Labs: Abnormal Lab Results - Last 24 Hours (Table) 01/30/22 01/30/22 01/31/22 Range/Units 02:50 19:11 02:41 RBC 3.93 L (4.30-5.90) m/uL Hgb 12.1 L (13.0-17.5) gm/dL MCV 100.7 H (80.0-100.0) fL MCHC 30.5 L (31.0-37.0) g/dL Plt Count 99 L (150-450) k/uL Lymphocytes # 0.7 L (1.0-4.8) k/uL APTT (22.0-30.0) sec Sodium (137-145) mmol/L Chloride (98-107) mmol/L BUN (9-20) mg/dL Creatinine (0.66-1.25) mg/dL POC Glucose (mg/dL) 155 H (70-110) mg/dL Calcium (8.4-10.2) mg/dL HDL Cholesterol 64.70 H (40.00-60.00) mg/dL 01/31/22 01/31/22 Range/Units 02:41 02:41 RBC (4.30-5.90) m/uL Hgb (13.0-17.5) gm/dL MCV (80.0-100.0) fL MCHC (31.0-37.0) g/dL Plt Count (150-450) k/uL Lymphocytes # (1.0-4.8) k/uL APTT 39.1 H (22.0-30.0) sec Sodium 136 L (137-145) mmol/L Chloride 94 L (98-107) mmol/L BUN 51 H (9-20) mg/dL Creatinine 4.92 H (0.66-1.25) mg/dL POC Glucose (mg/dL) (70-110) mg/dL Calcium 8.2 L (8.4-10.2) mg/dL HDL Cholesterol (40.00-60.00) mg/dL Microbiology - Last 24 Hours (Table) 01/30/22 17:34 Gram Stain - Preliminary Sputum Sputum Culture - Preliminary 01/29/22 20:42 Blood Culture - Preliminary Blood No Growth after 24 hours 01/29/22 20:39 Blood Culture - Preliminary Blood No Growth after 24 hours Assessment and Plan Assessment: 1. End-stage renal disease on hemodialysis on a Friday schedule via left arm AV fistula 2. Acute hypoxic respiratory failure secondary to pneumonia. If patient's symptoms improved post dialysis we will arrange for an extra treatment tomorrow. A chest x-ray will also be repeated post dialysis. 3. Right middle lobe pneumonia maintained on antibiotics 4. History of 2 previous kidney transplants initial one in 1992 which was a donor and the second one in 1995 which lasted for about 25 years. This was from his knees. Patient was restarted on dialysis in May 2021 5. CK D mineral bone disorder 6. Severe cardiomyopathy with ejection fraction at 20% with moderate mitral valve and tricuspid regurgitation Plan: Hemodialysis today Check chest x-ray postdialysis If symptoms are significantly improved post dialysis we will arrange for next treatment tomorrow. Continue with antibiotics in the meantime Possible need for cardiac catheterization.
--- NOTE | 2022-01-31 10:38 | P.PN ---
Subjective Progress Note Date: 01/31/22 This is 76-year-old patient that recently moved to [place], [place] from [place], with past medical history of end-stage renal disease, patient has a history of 2 renal transplants in the past, with the last one in 1995 from his niece, and that lasted about 25 years. Most recently patient was restarted on hemodialysis in May 2021. Other medical history includes smoking history, and bowel resection for bowel obstruction. Patient carries a [id number] smoking history, in remission for the past 6 years. He denies having a diagnosis of COPD, not any inhalers or breathing treatments on a regular basis, he recently started wearing oxygen. His hemodialysis is on Tuesdays and Saturdays. On 01/29/2022 patient presented to the emergency department per EMS, with complaints of progressive shortness of breath for the past week. Patient could hardly walk 50 feet, denied any chest pain, no fever, no chills, no nausea, mild cough, with some phlegm production. Patient has a c-collar neck brace in place for history of neck fracture 2 years ago and a fall more recently. Chest x-ray in emergency department showed right middle lobe pneumonia. Patient had a white count of 5.6, hemoglobin of 12.2, electrolytes were unremarkable, sodium was 139, potassium is 4.3, BUN was 31 and creatinine is 3.45, his proBNP was 68,200, troponins were 0.234, 0.226, 0.236. Progesterone level was 0.23 not significantly elevated especially in view of his impaired renal function. COVID-19 PCR was negative. Patient was started on azithromycin and Rocephin for possibility of underlying community acquired pneumonia, he was evaluated by cardiology and was started on heparin infusion for possibility non-ST elevated myocardial infarction. The patient is seen today 01/31/2022 in follow-up in the intensive care unit. He is currently sitting up in a chair at the bedside. Awake and alert in no acute distress. He is still quite dyspneic with conversation, dyspneic with minimal exertion. Echocardiogram revealed an ejection fraction of 15-20%. 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 Moderate mitral and tricuspid regurgitation. Blood cultures revealing no growth. Sputum culture pending. White count 5.5. Hemoglobin 12.1. White count 99,000. Sodium 136. Potassium 5.1. BUN 51. Creatinine 4.92. Heparin drip discontinued. Normal saline running at 10 mL per hour. Oxygen at 1 L/m per nasal cannula. He is currently afebrile. The plan is for hemodialysis today with a chest x-ray to follow. Objective - Vital Signs Vital signs: Vital Signs Temp 97.5 F L 01/31/22 04:00 Pulse 96 01/31/22 04:00 Resp 22 01/31/22 04:00 BP 143/92 01/31/22 04:00 Pulse Ox 96 01/31/22 04:00 FiO2 Intake & Output 01/30/22 01/31/22 01/31/22 18:59 06:59 18:59 Intake Total 203.172 Balance 203.172 Intake: Intake, IV Titration 203.172 Amount Heparin Sod,Pork in 0.45% 203.172 NaCl 25,000 unit In 0.45 % NaCl 1 250ml.bag @ 12 UNITS/KG/HR 8.165 mls/hr IV .Q24H [facility] Rx#: [id number] Other: # Voids 1 # Bowel Movements 1 - Exam GENERAL EXAM: Alert, very pleasant, 76-year-old male, sitting up in the recliner, on 2 L of oxygen, comfortable in no apparent distress. HEAD: Normocephalic/atraumatic. EYES: Normal reaction of pupils, equal size. Conjunctiva pink, sclera white. NOSE: Clear with pink turbinates. THROAT: No erythema or exudates. NECK: No masses, no JVD, no thyroid enlargement, no adenopathy. CHEST: No chest wall deformity. Symmetrical expansion. LUNGS: Equal air entry with cost in the bilateral bases. CVS: Regular rate and rhythm, normal S1 and S2, no gallops, no murmurs, no rubs ABDOMEN: Soft, nontender. No hepatosplenomegaly, normal bowel sounds, no guarding or rigidity. EXTREMITIES: No clubbing, no edema, no cyanosis, 2+ pulses and upper and lower extremities. MUSCULOSKELETAL: Muscle strength and tone normal. SPINE: No scoliosis or deformity SKIN: No rashes CENTRAL NERVOUS SYSTEM: No focal deficits, tone is normal in all 4 extremities. PSYCHIATRIC: Alert and oriented -3. Appropriate affect. Intact judgment and insight. - Labs CBC & Chem 7: 01/31/22 02:41 01/31/22 02:41 Labs: Abnormal Lab Results - Last 24 Hours (Table) 01/30/22 01/30/22 01/31/22 Range/Units 02:50 19:11 02:41 RBC 3.93 L (4.30-5.90) m/uL Hgb 12.1 L (13.0-17.5) gm/dL MCV 100.7 H (80.0-100.0) fL MCHC 30.5 L (31.0-37.0) g/dL Plt Count 99 L (150-450) k/uL Lymphocytes # 0.7 L (1.0-4.8) k/uL APTT (22.0-30.0) sec Sodium (137-145) mmol/L Chloride (98-107) mmol/L BUN (9-20) mg/dL Creatinine (0.66-1.25) mg/dL POC Glucose (mg/dL) 155 H (70-110) mg/dL Calcium (8.4-10.2) mg/dL HDL Cholesterol 64.70 H (40.00-60.00) mg/dL 01/31/22 01/31/22 Range/Units 02:41 02:41 RBC (4.30-5.90) m/uL Hgb (13.0-17.5) gm/dL MCV (80.0-100.0) fL MCHC (31.0-37.0) g/dL Plt Count (150-450) k/uL Lymphocytes # (1.0-4.8) k/uL APTT 39.1 H (22.0-30.0) sec Sodium 136 L (137-145) mmol/L Chloride 94 L (98-107) mmol/L BUN 51 H (9-20) mg/dL Creatinine 4.92 H (0.66-1.25) mg/dL POC Glucose (mg/dL) (70-110) mg/dL Calcium 8.2 L (8.4-10.2) mg/dL HDL Cholesterol (40.00-60.00) mg/dL Microbiology - Last 24 Hours (Table) 01/30/22 17:34 Gram Stain - Preliminary Sputum Sputum Culture - Preliminary 01/29/22 20:42 Blood Culture - Preliminary Blood No Growth after 24 hours 01/29/22 20:39 Blood Culture - Preliminary Blood No Growth after 24 hours Assessment and Plan Assessment: Acute exacerbation of systolic congestive heart failure with ejection fraction 15-20% 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 Heparin drip off. 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, patient Shirley [id number] smoking history Chronic hypoxic respiratory failure patient recently started wearing oxygen History of renal transplant 2, in 1992 from a donor, and in 1995 from a living donor, who was patient's niece History of neck fracture, and patient wears a c-collar Plan: The patient was seen and evaluated Labs and medications reviewed To have follow-up chest x-ray after hemodialysis today Prognosis is guarded We will continue to follow and make further recommendations based on his clinical status I have personally seen and examined the patient, performed the documentation and the assessment and plan as written. Number of minutes spent on the visit: 10.
--- NOTE | 2022-01-31 11:05 | P.PN ---
Subjective Progress Note Date: 01/31/22 Principal diagnosis: sob Patient states that he feels slightly better today. Still with sob however. No cp. No fevers. Objective - Vital Signs Vital signs: Vital Signs Temp 97.5 F L 01/31/22 04:00 Pulse 96 01/31/22 04:00 Resp 22 01/31/22 04:00 BP 143/92 01/31/22 04:00 Pulse Ox 96 01/31/22 04:00 FiO2 Intake & Output 01/30/22 01/31/22 01/31/22 18:59 06:59 18:59 Intake Total 203.172 Balance 203.172 Intake: Intake, IV Titration 203.172 Amount Heparin Sod,Pork in 0.45% 203.172 NaCl 25,000 unit In 0.45 % NaCl 1 250ml.bag @ 12 UNITS/KG/HR 8.165 mls/hr IV .Q24H [facility] Rx#: [id number] Other: # Voids 1 # Bowel Movements 1 - Exam Constitutional: No acute distress, conversant, pleasant Eyes:Anicteric sclerae, moist conjunctiva, no lid-lag, PERRLA, ENMT: Oropharynx clear, no erythema, exudates Neck: Supple, FROM, no masses, or JVD, No carotid bruits, No thyromegaly Lungs: Clear to auscultation, Clear to percussion, Normal respiratory effort, no accessory muscle use Cardiovascular: Heart regular in rate and rhythm, No murmurs, gallops, or rubs, No peripheral edema Abdominal: Soft, Nontender, no guarding, rebound or rigidity, Normoactive bowel sounds, No hepatomegaly, No splenomegaly, No palpable mass Skin: Normal temperature, tone, texture, turgor, no induration, No subcutaneous nodules, No rash, lesions, No ulcers Extremities: No digital cyanosis, No clubbing, Pedal pulses intact and symmetrical, Radial pulses intact and symmetrical, No calf tenderness Psychiatric: Alert and oriented to person, place and time, appropriate affect, intact judgement Neuro: Muscles Strength 5/5 in all 4 extremities, Sensation to light touch grossly present throughout, Cranial nerves II-XII grossly intact, no focal sensory deficits - Labs CBC & Chem 7: 01/31/22 02:41 01/31/22 02:41 Labs: Abnormal Lab Results - Last 24 Hours (Table) 01/30/22 01/30/22 01/31/22 Range/Units 02:50 19:11 02:41 RBC 3.93 L (4.30-5.90) m/uL Hgb 12.1 L (13.0-17.5) gm/dL MCV 100.7 H (80.0-100.0) fL MCHC 30.5 L (31.0-37.0) g/dL Plt Count 99 L (150-450) k/uL Lymphocytes # 0.7 L (1.0-4.8) k/uL APTT (22.0-30.0) sec Sodium (137-145) mmol/L Chloride (98-107) mmol/L BUN (9-20) mg/dL Creatinine (0.66-1.25) mg/dL POC Glucose (mg/dL) 155 H (70-110) mg/dL Calcium (8.4-10.2) mg/dL HDL Cholesterol 64.70 H (40.00-60.00) mg/dL 01/31/22 01/31/22 Range/Units 02:41 02:41 RBC (4.30-5.90) m/uL Hgb (13.0-17.5) gm/dL MCV (80.0-100.0) fL MCHC (31.0-37.0) g/dL Plt Count (150-450) k/uL Lymphocytes # (1.0-4.8) k/uL APTT 39.1 H (22.0-30.0) sec Sodium 136 L (137-145) mmol/L Chloride 94 L (98-107) mmol/L BUN 51 H (9-20) mg/dL Creatinine 4.92 H (0.66-1.25) mg/dL POC Glucose (mg/dL) (70-110) mg/dL Calcium 8.2 L (8.4-10.2) mg/dL HDL Cholesterol (40.00-60.00) mg/dL Microbiology - Last 24 Hours (Table) 01/30/22 17:34 Gram Stain - Preliminary Sputum Sputum Culture - Preliminary 01/29/22 20:42 Blood Culture - Preliminary Blood No Growth after 24 hours 01/29/22 20:39 Blood Culture - Preliminary Blood No Growth after 24 hours Assessment and Plan Plan: Community acquired lobar pneumonia Lactic acidosis, resolved Cultures negative so far Continue azithromycin and rocephin supplemental oxygen as needed tylenol for fever as needed Acute exacerbation of systolic congestive heart failure with ejection fraction 15-20% Severe aortic disease Per cardio Per cardio trops elevation is not due to [place], off heparin gtt. Echo reviewed. Dialysis per nephro Continue metoprolol ESRD on HD nephrology is following Dialysis full code DVT PPX on heparin gtt for ACS
--- NOTE | 2022-01-31 13:23 | P.PN ---
Subjective Patient complains of being short of breath He has a productive cough and was treated for a right middle lobe pneumonia No dizziness no lightheadedness Blood pressure is low normal On examination Blood pressure 120/80 pulse rate in the 90s afebrile Breath sounds are reduced bilaterally Heart sounds S1-S2 are soft, soft ejection systolic murmur 2-D echo and Doppler study shows severely reduced global LV systolic function with moderate RV dilation Moderate MR and TR, mild aortic stenosis Hemoglobin 12.1 Sodium 136 potassium 5.1 BUN 51 creatinine 4.9 Impression End-stage renal disease on dialysis Severe cardio myopathy with moderate MR and TR and RV enlargement Long-standing history of hypertension Suggest Continue beta blockers Lasix on days when he is not on dialysis. The patient does not make much urine Consider isosorbide and hydralazine by mouth as long as blood pressure control rate, especially with dialysis, for heart failure management Increase atorvastatin 20 mg by mouth daily Reduce aspirin to 81 mg daily Objective - Vital Signs Vital signs: Vital Signs Temp 97.5 F L 01/31/22 04:00 Pulse 96 01/31/22 04:00 Resp 22 01/31/22 04:00 BP 143/92 01/31/22 04:00 Pulse Ox 96 01/31/22 04:00 FiO2 Intake & Output 01/30/22 01/31/22 01/31/22 18:59 06:59 18:59 Intake Total 203.172 Balance 203.172 Intake: Intake, IV Titration 203.172 Amount Heparin Sod,Pork in 0.45% 203.172 NaCl 25,000 unit In 0.45 % NaCl 1 250ml.bag @ 12 UNITS/KG/HR 8.165 mls/hr IV .Q24H [facility] Rx#: [id number] Other: # Voids 1 # Bowel Movements 1 - Labs CBC & Chem 7: 01/31/22 02:41 01/31/22 02:41 Labs: Abnormal Lab Results - Last 24 Hours (Table) 01/30/22 01/30/22 01/31/22 Range/Units 02:50 19:11 02:41 RBC 3.93 L (4.30-5.90) m/uL Hgb 12.1 L (13.0-17.5) gm/dL MCV 100.7 H (80.0-100.0) fL MCHC 30.5 L (31.0-37.0) g/dL Plt Count 99 L (150-450) k/uL Lymphocytes # 0.7 L (1.0-4.8) k/uL APTT (22.0-30.0) sec Sodium (137-145) mmol/L Chloride (98-107) mmol/L BUN (9-20) mg/dL Creatinine (0.66-1.25) mg/dL POC Glucose (mg/dL) 155 H (70-110) mg/dL Calcium (8.4-10.2) mg/dL HDL Cholesterol 64.70 H (40.00-60.00) mg/dL 01/31/22 01/31/22 Range/Units 02:41 02:41 RBC (4.30-5.90) m/uL Hgb (13.0-17.5) gm/dL MCV (80.0-100.0) fL MCHC (31.0-37.0) g/dL Plt Count (150-450) k/uL Lymphocytes # (1.0-4.8) k/uL APTT 39.1 H (22.0-30.0) sec Sodium 136 L (137-145) mmol/L Chloride 94 L (98-107) mmol/L BUN 51 H (9-20) mg/dL Creatinine 4.92 H (0.66-1.25) mg/dL POC Glucose (mg/dL) (70-110) mg/dL Calcium 8.2 L (8.4-10.2) mg/dL HDL Cholesterol (40.00-60.00) mg/dL Microbiology - Last 24 Hours (Table) 01/30/22 17:34 Gram Stain - Preliminary Sputum Sputum Culture - Preliminary 01/29/22 20:42 Blood Culture - Preliminary Blood No Growth after 24 hours 01/29/22 20:39 Blood Culture - Preliminary Blood No Growth after 24 hours
[2022-01-31] MEDS: METOPROLOL TARTRATE 12.5 MG TAB PO SCH ×2 (14:51→20:39)
[2022-01-31] MEDS: ASPIRIN 81 MG PO SCH (14:51)
--- NOTE | 2022-01-31 15:50 | XR ---
EXAMINATION TYPE: XR chest 1V portable DATE OF EXAM: 01/31/2022 COMPARISON: Chest x-ray 01/29/2022 HISTORY: Post hemodialysis, shortness of breath TECHNIQUE: Single frontal view of the chest is obtained. FINDINGS: Patient is rotated. Heart size may be accentuated by technique but is likely stable. Abnor mal densities present at the right lung base, the hemidiaphragm is obscured. There is no evident pneu mothorax. Central vascularity appears prominently. There are overlying artifacts. Aorta is dense. IMPRESSION: There may be right pleural effusion and associated atelectasis, edema versus pneumonia, rotated exam, follow-up as indicated
[2022-01-31] MEDS: ALPRAZolam 0.25 MG TAB PO PRN (18:58)
[2022-01-31] MEDS: ATORVASTATIN 20 MG TAB PO SCH (20:39)
[2022-02-01] MEDS: SEVELAMER 800 MG TAB PO SCH ×3 (07:04→16:56)
[2022-02-01] MEDS: oxyCODONE-APAP 5-325MG 1 EACH TAB PO PRN ×3 (08:42→18:36)
--- NOTE | 2022-02-01 09:45 | P.PN ---
Subjective Progress Note Date: 02/01/22 This is 76-year-old patient that recently moved to [place], [place] from [place], with past medical history of end-stage renal disease, patient has a history of 2 renal transplants in the past, with the last one in 1995 from his niece, and that lasted about 25 years. Most recently patient was restarted on hemodialysis in May 2021. Other medical history includes smoking history, and bowel resection for bowel obstruction. Patient carries a [id number] smoking history, in remission for the past 6 years. He denies having a diagnosis of COPD, not any inhalers or breathing treatments on a regular basis, he recently started wearing oxygen. His hemodialysis is on Tuesdays and Saturdays. On 01/29/2022 patient presented to the emergency department per EMS, with complaints of progressive shortness of breath for the past week. Patient could hardly walk 50 feet, denied any chest pain, no fever, no chills, no nausea, mild cough, with some phlegm production. Patient has a c-collar neck brace in place for history of neck fracture 2 years ago and a fall more recently. Chest x-ray in emergency department showed right middle lobe pneumonia. Patient had a white count of 5.6, hemoglobin of 12.2, electrolytes were unremarkable, sodium was 139, potassium is 4.3, BUN was 31 and creatinine is 3.45, his proBNP was 68,200, troponins were 0.234, 0.226, 0.236. Progesterone level was 0.23 not significantly elevated especially in view of his impaired renal function. COVID-19 PCR was negative. Patient was started on azithromycin and Rocephin for possibility of underlying community acquired pneumonia, he was evaluated by cardiology and was started on heparin infusion for possibility non-ST elevated myocardial infarction. The patient is seen today 01/31/2022 in follow-up in the intensive care unit. He is currently sitting up in a chair at the bedside. Awake and alert in no acute distress. He is still quite dyspneic with conversation, dyspneic with minimal exertion. Echocardiogram revealed an ejection fraction of 15-20%. 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 Moderate mitral and tricuspid regurgitation. Blood cultures revealing no growth. Sputum culture pending. White count 5.5. Hemoglobin 12.1. White count 99,000. Sodium 136. Potassium 5.1. BUN 51. Creatinine 4.92. Heparin drip discontinued. Normal saline running at 10 mL per hour. Oxygen at 1 L/m per nasal cannula. He is currently afebrile. The plan is for hemodialysis today with a chest x-ray to follow. The patient is seen today 02/01/2022 in follow-up in intensive care unit. He is currently sitting up in a chair at the bedside. C-collar in place. He is awake and alert. He did have some issues with confusion. A process safety specialist is at the bedside. He is maintaining O2 saturations in the 90s on 2 L/m per nasal cannula. 0.9% normal saline at KVO. He did receive hemodialysis yesterday with 2 L of fluid removed. Chest x-ray continues to show evidence of fluid volume overload. The plan is for possible repeat hemodialysis today. Blood cultures reveal no growth. Sputum culture revealed no growth. No new labs today. He is currently in a -1.6 L balance. He remains on DuoNeb inhalations. Oral diuretics. Objective - Vital Signs Vital signs: Vital Signs Temp 97.5 F L 02/01/22 08:00 Pulse 75 02/01/22 08:00 Resp 15 02/01/22 08:00 BP 110/72 02/01/22 08:00 Pulse Ox 97 02/01/22 03:34 FiO2 Intake & Output 01/31/22 02/01/22 02/01/22 18:59 06:59 18:59 Intake Total 700 Output Total 2300 Balance -1600 Intake: Oral 400 Hemodialysis 300 Output: Hemodialysis 2300 Other: # Voids 0 # Bowel Movements 0 - Exam GENERAL EXAM: Alert, very pleasant, 76-year-old male, sitting up in the recliner, on 2 L of oxygen, comfortable in no apparent distress. HEAD: Normocephalic/atraumatic. EYES: Normal reaction of pupils, equal size. Conjunctiva pink, sclera white. NOSE: Clear with pink turbinates. THROAT: No erythema or exudates. NECK: C-collar in place. No masses, no JVD, no thyroid enlargement, no adenopathy. CHEST: No chest wall deformity. Symmetrical expansion. LUNGS: Equal air entry with crackles the bilateral bases. CVS: Regular rate and rhythm, normal S1 and S2, no gallops, no murmurs, no rubs ABDOMEN: Soft, nontender. No hepatosplenomegaly, normal bowel sounds, no guarding or rigidity. EXTREMITIES: No clubbing, no edema, no cyanosis, 2+ pulses and upper and lower extremities. MUSCULOSKELETAL: Muscle strength and tone normal. SPINE: No scoliosis or deformity SKIN: No rashes CENTRAL NERVOUS SYSTEM: No focal deficits, tone is normal in all 4 extremities. PSYCHIATRIC: Alert and oriented -2. Appropriate affect. Intact judgment and insight. - Labs CBC & Chem 7: 01/31/22 02:41 01/31/22 02:41 Labs: Microbiology - Last 24 Hours (Table) 01/30/22 17:34 Gram Stain - Final Sputum Sputum Culture - Final 01/29/22 20:39 Blood Culture - Preliminary Blood No Growth after 48 hours 01/29/22 20:42 Blood Culture - Preliminary Blood No Growth after 48 hours Assessment and Plan Assessment: Acute exacerbation of systolic congestive heart failure with ejection fraction 15-20% Dyspnea secondary to cardiac asthma 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 Heparin drip off. 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, patient carries a 86-owan-atys smoking history Chronic hypoxic respiratory failure patient recently started wearing oxygen History of renal transplant 2, in 1992 from a donor, and in 1995 from a living donor, who was patient's niece History of neck fracture, and patient wears a c-collar Plan: The patient was seen and evaluated Chest x-ray and medications reviewed Possible extra hemodialysis today Prognosis is guarded He is a DO NOT RESUSCITATE/DO NOT INTUBATE CODE STATUS We will continue to follow and make further recommendations based on his clinical status I have personally seen and examined the patient, performed the documentation and the assessment and plan as written. Number of minutes spent on the visit: 10.
--- NOTE | 2022-02-01 10:22 | P.PN ---
Subjective Patient is seen for follow-up for end-stage renal disease. Patient was admitted to the hospital with complaints of shortness of breath which worsened after his dialysis treatment on Friday on admission Chest x-ray shows evidence of right middle lobe infiltrate. Echocardiogram showed ejection fraction of 20 % with moderate mitral and tricuspid regurgitation. White cell count is not elevated and patient has not had a fever post hospitalization although he complained of feeling warm prior to admission. Patient had dialysis yesterday with UF of 2.3 L. He states that he does not feel significantly better although chest x-ray posttreatment did show evidence of pulmonary vascular congestion. Therefore patient will be dialyzed again today. He has some component of anxiety. Objective - Vital Signs Vital signs: Vital Signs Temp 97.5 F L 02/01/22 08:00 Pulse 75 02/01/22 08:00 Resp 15 02/01/22 08:00 BP 110/72 02/01/22 08:00 Pulse Ox 97 02/01/22 03:34 FiO2 Intake & Output 01/31/22 02/01/22 02/01/22 18:59 06:59 18:59 Intake Total 700 Output Total 2300 Balance -1600 Intake: Oral 400 Hemodialysis 300 Output: Hemodialysis 2300 Other: # Voids 0 # Bowel Movements 0 - Exam Patient is comfortable Tachypneic Audible wheezing Alert oriented 3 Examination of the heart S1 and S2 Examination lungs bilateral breath sounds are heard bilateral wheezing is heard as well Abdomen is soft nontender Examination of the lower extremities shows no significant edema bilaterally RECYCLING MANAGER exam grossly intact - Labs CBC & Chem 7: 01/31/22 02:41 01/31/22 02:41 Labs: Microbiology - Last 24 Hours (Table) 01/30/22 17:34 Gram Stain - Final Sputum Sputum Culture - Final 01/29/22 20:39 Blood Culture - Preliminary Blood No Growth after 48 hours 01/29/22 20:42 Blood Culture - Preliminary Blood No Growth after 48 hours Assessment and Plan Assessment: 1. End-stage renal disease on hemodialysis on a Friday sche dule via left arm AV fistula 2. Acute hypoxic respiratory failure secondary to pneumonia and fluid overload. 3. Right middle lobe infiltrate noted on initial chest x-ray but antibiotics now discontinued due to low suspicion for pneumonia 4. History of 2 previous kidney transplants initial one in 1992 which was a donor and the second one in 1995 which lasted for about 25 years. This was from his knees. Patient was restarted on dialysis in May 2021 5. CK D mineral bone disorder 6. Severe cardiomyopathy with ejection fraction at 20% with moderate mitral valve and tricuspid regurgitation Plan: Extra treatment of Hemodialysis today and then repeat again in a.m. Continue phosphate binders
--- NOTE | 2022-02-01 10:40 | P.PN ---
Subjective Patient resting comfortably in a chair. Denies any chest discomfort Getting ready for dialysis Blood pressure in the normal range Heart rates in the 70s and 80s Afebrile Breath sounds are reduced bilaterally but there are no rhonchi no crackles Heart sounds S1 and S2 normal no murmurs No lower extremity edema Impression Cardiomyopathy Stage V chronic kidney disease on dialysis Potassium 5.1 BUN 51 and creatinine 4.9 Suggest Increase metoprolol to 5 mg twice daily Continue by mouth Lasix Continue dialysis Objective - Vital Signs Vital signs: Vital Signs Temp 97.5 F L 02/01/22 08:00 Pulse 75 02/01/22 08:00 Resp 15 02/01/22 08:00 BP 110/72 02/01/22 08:00 Pulse Ox 97 02/01/22 03:34 FiO2 Intake & Output 01/31/22 02/01/22 02/01/22 18:59 06:59 18:59 Intake Total 700 Output Total 2300 Balance -1600 Intake: Oral 400 Hemodialysis 300 Output: Hemodialysis 2300 Other: # Voids 0 # Bowel Movements 0 - Labs CBC & Chem 7: 01/31/22 02:41 01/31/22 02:41 Labs: Microbiology - Last 24 Hours (Table) 01/30/22 17:34 Gram Stain - Final Sputum Sputum Culture - Final 01/29/22 20:39 Blood Culture - Preliminary Blood No Growth after 48 hours 01/29/22 20:42 Blood Culture - Preliminary Blood No Growth after 48 hours
--- NOTE | 2022-02-01 13:35 | P.PN ---
Subjective Progress Note Date: 02/01/22 Principal diagnosis: sob Patient was confused last night. He wasn't knowing where he was. However when I saw this morning was more oriented. He told me that he is still feeling short of breath and weak, he denied having any improvement compared to when he came in. No fevers or chills. Objective - Vital Signs Vital signs: Vital Signs Temp 97.5 F L 02/01/22 08:00 Pulse 75 02/01/22 08:00 Resp 15 02/01/22 08:00 BP 110/72 02/01/22 08:00 Pulse Ox 97 02/01/22 03:34 FiO2 Intake & Output 01/31/22 02/01/22 02/01/22 18:59 06:59 18:59 Intake Total 700 Output Total 2300 Balance -1600 Intake: Oral 400 Hemodialysis 300 Output: Hemodialysis 2300 Other: # Voids 0 # Bowel Movements 0 - Exam Constitutional: No acute distress, conversant, pleasant Eyes:Anicteric sclerae, moist conjunctiva, no lid-lag, PERRLA, ENMT: Oropharynx clear, no erythema, exudates Neck: Supple, FROM, no masses, or JVD, No carotid bruits, No thyromegaly Lungs: Clear to auscultation, Clear to percussion, Normal respiratory effort, no accessory muscle use Cardiovascular: Heart regular in rate and rhythm, No murmurs, gallops, or rubs, No peripheral edema Abdominal: Soft, Nontender, no guarding, rebound or rigidity, Normoactive bowel sounds, No hepatomegaly, No splenomegaly, No palpable mass Skin: Normal temperature, tone, texture, turgor, no induration, No subcutaneous nodules, No rash, lesions, No ulcers Extremities: No digital cyanosis, No clubbing, Pedal pulses intact and symmetrical, Radial pulses intact and symmetrical, No calf tenderness Psychiatric: Alert and oriented to person, place and time, appropriate affect, intact judgement Neuro: Muscles Strength 5/5 in all 4 extremities, Sensation to light touch grossly present throughout, Cranial nerves II-XII grossly intact, no focal sensory deficits - Labs CBC & Chem 7: 01/31/22 02:41 01/31/22 02:41 Labs: Microbiology - Last 24 Hours (Table) 01/30/22 17:34 Gram Stain - Final Sputum Sputum Culture - Final 01/29/22 20:39 Blood Culture - Preliminary Blood No Growth after 48 hours 01/29/22 20:42 Blood Culture - Preliminary Blood No Growth after 48 hours Assessment and Plan Plan: Community acquired lobar pneumonia Lactic acidosis, resolved Cultures negative so far Continue azithromycin and rocephin supplemental oxygen as needed tylenol for fever as needed Acute exacerbation of systolic congestive heart failure with ejection fraction 15-20% Severe aortic disease Per cardio Per cardio trops elevation is not due to [place], off heparin gtt. Echo reviewed. Metoprolol increased to 25 mg twice a day. Dialysis per nephro ESRD on HD nephrology is following Dialysis General weakness PT and OT full code DVT PPX on heparin gtt for ACS
[2022-02-01] MEDS: FUROSEMIDE 40 MG TAB PO SCH (13:53)
[2022-02-01] MEDS: ASPIRIN 81 MG PO SCH (14:11)
[2022-02-01] MEDS: METOPROLOL TARTRATE 25 MG TAB PO SCH ×2 (14:14→21:05)
[2022-02-01] MEDS: ATORVASTATIN 20 MG TAB PO SCH (20:46)
[2022-02-02] MEDS: ONDANSETRON 4 MG/2 ML VIAL IVP PRN (02:00)
[2022-02-02 06:34] LABS: HCT 44.6 % (39.0-53.0); HGB 13.6 gm/dL (13.0-17.5); Hypochromasia Slight; MCHC 30.5 g/dL (31.0-37.0); MCV 101.5 fL (80.0-100.0); Macrocytosis Slight; Platelet Count 78 k/uL (150-450); RDW 14.4 % (11.5-15.5); WBC 10.1 k/uL (3.8-10.6)
[2022-02-02 06:42] LABS: Calcium 8.6 mg/dL (8.4-10.2); Potassium 5.8 mmol/L (3.5-5.1)
--- NOTE | 2022-02-02 09:01 | P.PN ---
Subjective Patient is seen in follow-up for end-stage renal disease. He is maintained on hemodialysis on Friday schedule. Resting in bed. Denies chest pain or shortness of breath. Denies cough. Sitter present at bedside. Vital signs are stable. General: Awake. No acute distress. HEENT: Head exam is unremarkable. LUNGS: Breath sounds decreased. HEART: Rate and Rhythm are regular. ABDOMEN: Soft, no distention. EXTREMITITES: No edema. Objective - Vital Signs Vital signs: Vital Signs Temp 97.1 F L 02/02/22 04:00 Pulse 66 02/02/22 04:00 Resp 22 02/02/22 04:00 BP 117/72 02/02/22 04:00 Pulse Ox 96 02/02/22 07:03 FiO2 Intake & Output 02/01/22 02/02/22 02/02/22 18:59 06:59 18:59 Intake Total 400 460 Balance 400 460 Weight 75 kg Intake: Oral 400 460 Other: # Voids 0 - Labs CBC & Chem 7: 02/02/22 06:10 02/02/22 06:10 Labs: Abnormal Lab Results - Last 24 Hours (Table) 02/02/22 02/02/22 Range/Units 06:10 06:10 MCV 101.5 H (80.0-100.0) fL MCHC 30.5 L (31.0-37.0) g/dL Plt Count 78 L (150-450) k/uL Sodium 133 L (137-145) mmol/L Potassium 5.8 H (3.5-5.1) mmol/L Chloride 93 L (98-107) mmol/L BUN 41 H (9-20) mg/dL Creatinine 4.37 H (0.66-1.25) mg/dL Glucose 70 L (74-99) mg/dL Microbiology - Last 24 Hours (Table) 01/29/22 20:42 Blood Culture - Preliminary Blood No Growth after 72 hours 01/29/22 20:39 Blood Culture - Preliminary Blood No Growth after 72 hours 01/30/22 17:34 Gram Stain - Final Sputum Sputum Culture - Final Assessment and Plan Plan: Assessment: 1. End-stage renal disease maintained on hemodialysis on Friday schedule. He has a left upper extremity AV fistula. 2. Pneumonia status post antibiotics. 3. Hyperkalemia secondary to chronic kidney disease. Expect improvement post dialysis. 4. 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 5. Acute on chronic systolic CHF with ejection fraction of 15-20% with moderate mitral and tricuspid regurgitation. Plan: Hemodialysis today.
--- NOTE | 2022-02-02 09:04 | P.PN ---
Subjective Progress Note Date: 02/02/22 PROGRESS NOTE The patient is a 76-year-old male with known history of end-stage renal disease, status post transplant and now on dialysis. He presented with symptoms progressive dyspnea and CHF. His echocardiogram showed a severely impaired systolic function. According to the patient when he lived in [place] he was told that he has an impaired systolic function and cardiac catheterization was suggested but because of his renal function that was not done. He had an episode of hypotension yesterday with confusion but better this morning. He is feeling better, he denies any dyspnea, dizziness or palpitations. He denies any chest discomfort. He has no nausea. Medications: Aspirin once a day, Lipitor 20 mg daily, Lasix 40 mg daily, metoprolol tartrate 25 mg twice a day, Renvela, PHYSICAL EXAMINATION: Blood pressure 117/70 heart rate 60 LUNGS: Decreased breath sounds bilaterally HEART: Regular rate and rhythm, S1, S2. No S3. systolic ejection murmur, /6 ABDOMEN: Soft, nontender, no organomegaly EXTREMETIES: Trace to 1 edema LAB: BUN 41, creatinine 4.37, hemoglobin 13.6, potassium 5.8 IMPRESSION: 1. Progressive dyspnea, multifactorial with possible lung infection, CHF with systolic dysfunction and chronic kidney disease 2. Cardiomyopathy of unknown duration or etiology. According to the patient he was told he has any appears systolic function in the past 3. End-stage renal disease on dialysis status post transplant 2 4. Aortic stenosis may be underestimated because of the cardiomyopathy PLAN: 1. Change the dose of beta sal to metoprolol succinate 12-1/2 mg daily 2. Continue other medications 3. Depending on the blood pressure adjust CHF treatment 4. Continue dialysis 5. Prognosis is guarded Objective - Vital Signs Vital signs: Vital Signs Temp 97.1 F L 02/02/22 04:00 Pulse 66 02/02/22 04:00 Resp 22 02/02/22 04:00 BP 117/72 02/02/22 04:00 Pulse Ox 96 02/02/22 07:03 FiO2 Intake & Output 02/01/22 02/02/22 02/02/22 18:59 06:59 18:59 Intake Total 400 460 Balance 400 460 Weight 75 kg Intake: Oral 400 460 Other: # Voids 0 - Labs CBC & Chem 7: 02/02/22 06:10 02/02/22 06:10 Labs: Abnormal Lab Results - Last 24 Hours (Table) 02/02/22 02/02/22 Range/Units 06:10 06:10 MCV 101.5 H (80.0-100.0) fL MCHC 30.5 L (31.0-37.0) g/dL Plt Count 78 L (150-450) k/uL Sodium 133 L (137-145) mmol/L Potassium 5.8 H (3.5-5.1) mmol/L Chloride 93 L (98-107) mmol/L BUN 41 H (9-20) mg/dL Creatinine 4.37 H (0.66-1.25) mg/dL Glucose 70 L (74-99) mg/dL Microbiology - Last 24 Hours (Table) 01/29/22 20:42 Blood Culture - Preliminary Blood No Growth after 72 hours 01/29/22 20:39 Blood Culture - Preliminary Blood No Growth after 72 hours 01/30/22 17:34 Gram Stain - Final Sputum Sputum Culture - Final
[2022-02-02] MEDS: ASPIRIN 81 MG PO SCH (10:41)
[2022-02-02] MEDS: SEVELAMER 800 MG TAB PO SCH ×3 (10:41→19:03)
[2022-02-02] MEDS: FUROSEMIDE 40 MG TAB PO SCH (10:42)
--- NOTE | 2022-02-02 10:58 | P.PN ---
Subjective Progress Note Date: 02/02/22 This is 76-year-old patient that recently moved to [place], [place] from [place], with past medical history of end-stage renal disease, patient has a history of 2 renal transplants in the past, with the last one in 1995 from his niece, and that lasted about 25 years. Most recently patient was restarted on hemodialysis in May 2021. Other medical history includes smoking history, and bowel resection for bowel obstruction. Patient carries a [id number] smoking history, in remission for the past 6 years. He denies having a diagnosis of COPD, not any inhalers or breathing treatments on a regular basis, he recently started wearing oxygen. His hemodialysis is on Tuesdays and Saturdays. On 01/29/2022 patient presented to the emergency department per EMS, with complaints of progressive shortness of breath for the past week. Patient could hardly walk 50 feet, denied any chest pain, no fever, no chills, no nausea, mild cough, with some phlegm production. Patient has a c-collar neck brace in place for history of neck fracture 2 years ago and a fall more recently. Chest x-ray in emergency department showed right middle lobe pneumonia. Patient had a white count of 5.6, hemoglobin of 12.2, electrolytes were unremarkable, sodium was 139, potassium is 4.3, BUN was 31 and creatinine is 3.45, his proBNP was 68,200, troponins were 0.234, 0.226, 0.236. Progesterone level was 0.23 not significantly elevated especially in view of his impaired renal function. COVID-19 PCR was negative. Patient was started on azithromycin and Rocephin for possibility of underlying community acquired pneumonia, he was evaluated by cardiology and was started on heparin infusion for possibility non-ST elevated myocardial infarction. The patient is seen today 01/31/2022 in follow-up in the intensive care unit. He is currently sitting up in a chair at the bedside. Awake and alert in no acute distress. He is still quite dyspneic with conversation, dyspneic with minimal exertion. Echocardiogram revealed an ejection fraction of 15-20%. 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 Moderate mitral and tricuspid regurgitation. Blood cultures revealing no growth. Sputum culture pending. White count 5.5. Hemoglobin 12.1. White count 99,000. Sodium 136. Potassium 5.1. BUN 51. Creatinine 4.92. Heparin drip discontinued. Normal saline running at 10 mL per hour. Oxygen at 1 L/m per nasal cannula. He is currently afebrile. The plan is for hemodialysis today with a chest x-ray to follow. The patient is seen today 02/01/2022 in follow-up in intensive care unit. He is currently sitting up in a chair at the bedside. C-collar in place. He is awake and alert. He did have some issues with confusion. A patient safety officer is at the bedside. He is maintaining O2 saturations in the 90s on 2 L/m per nasal cannula. 0.9% normal saline at KVO. He did receive hemodialysis yesterday with 2 L of fluid removed. Chest x-ray continues to show evidence of fluid volume overload. The plan is for possible repeat hemodialysis today. Blood cultures reveal no growth. Sputum culture revealed no growth. No new labs today. He is currently in a -1.6 L balance. He remains on DuoNeb inhalations. Oral diuretics. Patient is seen today 02/02/2022 in follow-up in the intensive care unit. He is currently resting comfortably in bed. Awake and alert in no acute distress. He is still somewhat confused. Sitter is at the bedside. He did have an episode of hypotension and bradycardia that resolved without treatment last evening. Currently hemodynamically stable. Afebrile. Maintaining O2 saturations in the 90s on room air. Blood culture reveals no growth. Sputum culture revealed no growth. White count 10.1. Hemoglobin 13.6. MCV 101.5. Platelet count 78,000. Sodium 133. Potassium 5.8. Bicarb 22. BUN 41. Creatinine 4.37. No IV fluids currently. He is maintained on DuoNeb inhalations. Oral diuretics. He is at 3 S. overflow. Objective - Vital Signs Vital signs: Vital Signs Temp 97.1 F L 02/02/22 04:00 Pulse 66 02/02/22 04:00 Resp 22 02/02/22 04:00 BP 117/72 02/02/22 04:00 Pulse Ox 96 02/02/22 07:03 FiO2 Intake & Output 02/01/22 02/02/22 02/02/22 18:59 06:59 18:59 Intake Total 400 460 Balance 400 460 Weight 75 kg Intake: Oral 400 460 Other: # Voids 0 - Exam GENERAL EXAM: Alert, very pleasant, 76-year-old male, on room air, comfortable i n no apparent distress. HEAD: Normocephalic/atraumatic. EYES: Normal reaction of pupils, equal size. Conjunctiva pink, sclera white. NOSE: Clear with pink turbinates. THROAT: No erythema or exudates. NECK: C-collar in place. No masses, no JVD, no thyroid enlargement, no adenopathy. CHEST: No chest wall deformity. Symmetrical expansion. LUNGS: Equal air entry with crackles the bilateral bases. CVS: Regular rate and rhythm, normal S1 and S2, no gallops, positive murmurs, no rubs ABDOMEN: Soft, nontender. No hepatosplenomegaly, normal bowel sounds, no guarding or rigidity. EXTREMITIES: No clubbing, no edema, no cyanosis, 2+ pulses and upper and lower extremities. MUSCULOSKELETAL: Muscle strength and tone normal. SPINE: No scoliosis or deformity SKIN: No rashes CENTRAL NERVOUS SYSTEM: No focal deficits, tone is normal in all 4 extremities. PSYCHIATRIC: Alert and oriented -2. Appropriate affect. Intact judgment and insight. - Labs CBC & Chem 7: 02/02/22 06:10 02/02/22 06:10 Labs: Abnormal Lab Results - Last 24 Hours (Table) 02/02/22 02/02/22 Range/Units 06:10 06:10 MCV 101.5 H (80.0-100.0) fL MCHC 30.5 L (31.0-37.0) g/dL Plt Count 78 L (150-450) k/uL Sodium 133 L (137-145) mmol/L Potassium 5.8 H (3.5-5.1) mmol/L Chloride 93 L (98-107) mmol/L BUN 41 H (9-20) mg/dL Creatinine 4.37 H (0.66-1.25) mg/dL Glucose 70 L (74-99) mg/dL Microbiology - Last 24 Hours (Table) 01/29/22 20:42 Blood Culture - Preliminary Blood No Growth after 72 hours 01/29/22 20:39 Blood Culture - Preliminary Blood No Growth after 72 hours 01/30/22 17:34 Gram Stain - Final Sputum Sputum Culture - Final Assessment and Plan Assessment: Acute exacerbation of systolic congestive heart failure with ejection fraction 15-20% Dyspnea secondary to cardiac asthma, improved and on room air 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 Heparin drip off. 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, patient carries a [id number] smoking history Chronic hypoxic respiratory failure patient recently started wearing oxygen History of renal transplant 2, in 1992 from a donor, and in 1995 from a living donor, who was patient's niece History of neck fracture, and patient wears a c-collar Plan: The patient was seen and evaluated Medications and labs reviewed Possible hemodialysis today Prognosis is guarded He is a DO NOT RESUSCITATE/DO NOT INTUBATE CODE STATUS We will continue to follow and make further recommendations based on his clinical status I have personally seen and examined the patient, performed the documentation and the assessment and plan as written. Number of minutes spent on the visit: 10.
--- NOTE | 2022-02-02 12:00 | P.PN ---
Subjective Progress Note Date: 02/02/22 Principal diagnosis: sob Patient is feeling better today, he says in the chair yesterday. States his breathing is better. No complaints of fever, chills, nausea or vomiting. Objective - Vital Signs Vital signs: Vital Signs Temp 97.5 F L 02/02/22 10:50 Pulse 59 L 02/02/22 10:50 Resp 18 02/02/22 10:50 BP 100/72 02/02/22 10:50 Pulse Ox 95 02/02/22 10:50 FiO2 Intake & Output 02/01/22 02/02/22 02/02/22 18:59 06:59 18:59 Intake Total 400 460 Balance 400 460 Weight 75 kg Intake: Oral 400 460 Other: # Voids 0 - Exam Constitutional: No acute distress, conversant, pleasant Eyes:Anicteric sclerae, moist conjunctiva, no lid-lag, PERRLA, ENMT: Oropharynx clear, no erythema, exudates Neck: Supple, FROM, no masses, or JVD, No carotid bruits, No thyromegaly Lungs: Clear to auscultation, Clear to percussion, Normal respiratory effort, no accessory muscle use Cardiovascular: Heart regular in rate and rhythm, No murmurs, gallops, or rubs, No peripheral edema Abdominal: Soft, Nontender, no guarding, rebound or rigidity, Normoactive bowel sounds, No hepatomegaly, No splenomegaly, No palpable mass Skin: Normal temperature, tone, texture, turgor, no induration, No subcutaneous nodules, No rash, lesions, No ulcers Extremities: No digital cyanosis, No clubbing, Pedal pulses intact and symmetrical, Radial pulses intact and symmetrical, No calf tenderness Psychiatric: Alert and oriented to person, place and time, appropriate affect, intact judgement Neuro: Muscles Strength 5/5 in all 4 extremities, Sensation to light touch grossly present throughout, Cranial nerves II-XII grossly intact, no focal sen fady deficits - Labs CBC & Chem 7: 02/02/22 06:10 02/02/22 06:10 Labs: Abnormal Lab Results - Last 24 Hours (Table) 02/02/22 02/02/22 Range/Units 06:10 06:10 MCV 101.5 H (80.0-100.0) fL MCHC 30.5 L (31.0-37.0) g/dL Plt Count 78 L (150-450) k/uL Sodium 133 L (137-145) mmol/L Potassium 5.8 H (3.5-5.1) mmol/L Chloride 93 L (98-107) mmol/L BUN 41 H (9-20) mg/dL Creatinine 4.37 H (0.66-1.25) mg/dL Glucose 70 L (74-99) mg/dL Microbiology - Last 24 Hours (Table) 01/29/22 20:42 Blood Culture - Preliminary Blood No Growth after 72 hours 01/29/22 20:39 Blood Culture - Preliminary Blood No Growth after 72 hours 01/30/22 17:34 Gram Stain - Final Sputum Sputum Culture - Final Assessment and Plan Plan: Community acquired lobar pneumonia Lactic acidosis, resolved Cultures negative so far Continue azithromycin and rocephin supplemental oxygen as needed tylenol for fever as needed Acute exacerbation of systolic congestive heart failure with ejection fraction 15-20% Severe aortic disease Per cardio Per cardio trops elevation is not due to IL, off heparin gtt. Echo reviewed. Metoprolol increased to 25 mg twice a day. Dialysis per nephro ESRD on HD nephrology is following Dialysis General weakness PT and OT full code DVT PPX on heparin gtt for ACS Anticipated discharge: 1-2 days
[2022-02-02] MEDS: ATORVASTATIN 20 MG TAB PO SCH (20:04)
[2022-02-02] MEDS: oxyCODONE-APAP 5-325MG 1 EACH TAB PO PRN (22:10)
[2022-02-03 06:52] LABS: Calcium 8.6 mg/dL (8.4-10.2); Potassium 4.7 mmol/L (3.5-5.1)
[2022-02-03] MEDS: SEVELAMER 800 MG TAB PO SCH ×3 (06:57→18:00)
[2022-02-03] MEDS: FUROSEMIDE 40 MG TAB PO SCH (08:02)
[2022-02-03] MEDS: ASPIRIN 81 MG PO SCH (08:02)
[2022-02-03] MEDS ORDERED: METOPROLOL SUCCINATE (ER) 25 MG TAB.ER.24H PO SCH (09:00)
--- NOTE | 2022-02-03 09:06 | P.PN ---
Subjective Patient is seen in follow-up for end-stage renal disease. He is maintained on hemodialysis on Friday schedule. Tolerated 2 L ul trafiltration yesterday. Currently sitting up in chair. Denies chest pain or shortness of breath. Blood pressure stable. Vital signs are stable. General: Awake. No acute distress. HEENT: Head exam is unremarkable. LUNGS: Breath sounds decreased. HEART: Rate and Rhythm are regular. ABDOMEN: Soft, no distention. EXTREMITITES: No edema. Objective - Vital Signs Vital signs: Vital Signs Temp 97.8 F 02/03/22 07:59 Pulse 65 02/03/22 07:59 Resp 22 02/03/22 07:59 BP 116/58 02/03/22 07:59 Pulse Ox 94 L 02/03/22 07:59 FiO2 Intake & Output 02/02/22 02/03/22 02/03/22 18:59 06:59 18:59 Intake Total 600 Output Total 2000 0 Balance -2000 600 Weight 75.2 kg Intake: Oral 600 Output: Urine 0 0 Hemodialysis 2000 Other: # Voids 0 0 - Labs CBC & Chem 7: 02/02/22 06:10 02/03/22 06:08 Labs: Abnormal Lab Results - Last 24 Hours (Table) 02/03/22 Range/Units 06:08 Sodium 133 L (137-145) mmol/L Chloride 94 L (98-107) mmol/L BUN 30 H (9-20) mg/dL Creatinine 3.65 H (0.66-1.25) mg/dL Microbiology - Last 24 Hours (Table) 01/29/22 20:39 Blood Culture - Preliminary Blood No Growth after 96 hours 01/29/22 20:42 Blood Culture - Preliminary Blood No Growth after 96 hours Assessment and Plan Plan: Assessment: 1. End-stage renal disease maintained on hemodialysis on Friday schedule. He has a left upper extremity AV fistula. 2. Pneumonia status post antibiotics. 3. Hyperkalemia secondary to chronic kidney disease. Improved post dialysis. 4. 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 5. Acute on chronic systolic CHF with ejection fraction of 15-20% with moderate mitral and tricuspid regurgitation. Plan: Hemodialysis Friday. Check phosphorus level.
--- NOTE | 2022-02-03 09:23 | P.PN ---
Subjective Progress Note Date: 02/03/22 PROGRESS NOTE The patient is a 76-year-old male with known history of end-stage renal disease, status post transplant and now on dialysis. He presented with symptoms progressive dyspnea and CHF. His echocardiogram showed a severely impaired systolic function. According to the patient when he lived in [place] he was told that he has an impaired systolic function and cardiac catheterization was suggested but because of his renal function that was not done. He had an episode of hypotension yesterday with confusion but better this morning. He is feeling better, he denies any dyspnea, dizziness or palpitations. He denies any chest discomfort. He has no nausea. February 03: The patient is feeling better overall, he denies any chest discomfort, dizziness or palpitations. He had dialysis yesterday. He denies any nausea or vomiting. He is in sinus mechanism. He is up in the chair. Medications: Aspirin once a day, Lipitor 20 mg daily, Lasix 40 mg daily, metoprolol succinate 12-1/2 mg once a day , Renvela, PHYSICAL EXAMINATION: Blood pressure 117/70 heart rate 60 LUNGS: Decreased breath sounds bilaterally, no wheezes HEART: Regular rate and rhythm, S1, S2. No S3. systolic ejection murmur, / ABDOMEN: Soft, nontender, no organomegaly EXTREMETIES: Trace edema LAB: BUN 30, creatinine 3.65, potassium 4.7 IMPRESSION: 1. Progressive dyspnea, multifactorial with possible lung infection, CHF with systolic dysfunction and chronic kidney disease, stabilizing 2. Cardiomyopathy of unknown duration or etiology. According to the patient he was told that he has a cardiomyopathy in the past, detail unavailable 3. End-stage renal disease on dialysis status post transplant 2 4. Aortic stenosis may be underestimated because of the cardiomyopathy PLAN: 1. Increase metoprolol to twice a day 2. Continue other medications 3. Depending on the blood pressure adjust CHF treatment 4. Continue dialysis 5. Prognosis is guarded Objective - Vital Signs Vital signs: Vital Signs Temp 97.8 F 02/03/22 07:59 Pulse 65 02/03/22 07:59 Resp 22 02/03/22 07:59 BP 116/58 02/03/22 07:59 Pulse Ox 94 L 02/03/22 07:59 FiO2 Intake & Output 02/02/22 02/03/22 02/03/22 18:59 06:59 18:59 Intake Total 600 Output Total 1999 0 Balance -1999 600 Weight 75.2 kg Intake: Oral 600 Output: Urine 0 0 Hemodialysis 1999 Other: # Voids 0 0 - Labs CBC & Chem 7: 02/02/22 06:10 02/03/22 06:08 Labs: Abnormal Lab Results - Last 24 Hours (Table) 02/03/22 Range/Units 06:08 Sodium 133 L (137-145) mmol/L Chloride 94 L (98-107) mmol/L BUN 30 H (9-20) mg/dL Creatinine 3.65 H (0.66-1.25) mg/dL Microbiology - Last 24 Hours (Table) 01/29/22 20:39 Blood Culture - Preliminary Blood No Growth after 96 hours 01/29/22 20:42 Blood Culture - Preliminary Blood No Growth after 96 hours
[2022-02-03] MEDS: METOPROLOL TARTRATE 12.5 MG TAB PO SCH (09:58)
[2022-02-03] MEDS: METOPROLOL TARTRATE 25 MG TAB PO SCH (09:58)
--- NOTE | 2022-02-03 10:58 | P.PN ---
Subjective Progress Note Date: 02/03/22 This is 76-year-old patient that recently moved to [place], [place] from [place], with past medical history of end-stage renal disease, patient has a history of 2 renal transplants in the past, with the last one in 1995 from his niece, and that lasted about 25 years. Most recently patient was restarted on hemodialysis in May 2021. Other medical history includes smoking history, and bowel resection for bowel obstruction. Patient carries a [id number] smoking history, in remission for the past 6 years. He denies having a diagnosis of COPD, not any inhalers or breathing treatments on a regular basis, he recently started wearing oxygen. His hemodialysis is on Tuesdays and Saturdays. On 01/29/2022 patient presented to the emergency department per EMS, with complaints of progressive shortness of breath for the past week. Patient could hardly walk 50 feet, denied any chest pain, no fever, no chills, no nausea, mild cough, with some phlegm production. Patient has a c-collar neck brace in place for history of neck fracture 2 years ago and a fall more recently. Chest x-ray in emergency department showed right middle lobe pneumonia. Patient had a white count of 5.6, hemoglobin of 12.2, electrolytes were unremarkable, sodium was 139, potassium is 4.3, BUN was 31 and creatinine is 3.45, his proBNP was 68,200, troponins were 0.234, 0.226, 0.236. Progesterone level was 0.23 not significantly elevated especially in view of his impaired renal function. COVID-19 PCR was negative. Patient was started on azithromycin and Rocephin for possibility of underlying community acquired pneumonia, he was evaluated by cardiology and was started on heparin infusion for possibility non-ST elevated myocardial infarction. The patient is seen today 01/31/2022 in follow-up in the intensive care unit. He is currently sitting up in a chair at the bedside. Awake and alert in no acute distress. He is still quite dyspneic with conversation, dyspneic with minimal exertion. Echocardiogram revealed an ejection fraction of 15-20%. 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 Moderate mitral and tricuspid regurgitation. Blood cultures revealing no growth. Sputum culture pending. White count 5.5. Hemoglobin 12.1. White count 99,000. Sodium 136. Potassium 5.1. BUN 51. Creatinine 4.92. Heparin drip discontinued. Normal saline running at 10 mL per hour. Oxygen at 1 L/m per nasal cannula. He is currently afebrile. The plan is for hemodialysis today with a chest x-ray to follow. The patient is seen today 02/01/2022 in follow-up in intensive care unit. He is currently sitting up in a chair at the bedside. C-collar in place. He is awake and alert. He did have some issues with confusion. A health and safety technician is at the bedside. He is maintaining O2 saturations in the 90s on 2 L/m per nasal cannula. 0.9% normal saline at KVO. He did receive hemodialysis yesterday with 2 L of fluid removed. Chest x-ray continues to show evidence of fluid volume overload. The plan is for possible repeat hemodialysis today. Blood cultures reveal no growth. Sputum culture revealed no growth. No new labs today. He is currently in a -1.6 L balance. He remains on DuoNeb inhalations. Oral diuretics. Patient is seen today 02/02/2022 in follow-up in the intensive care unit. He is currently resting comfortably in bed. Awake and alert in no acute distress. He is still somewhat confused. Sitter is at the bedside. He did have an episode of hypotension and bradycardia that resolved without treatment last evening. Currently hemodynamically stable. Afebrile. Maintaining O2 saturations in the 90s on room air. Blood culture reveals no growth. Sputum culture revealed no growth. White count 10.1. Hemoglobin 13.6. MCV 101.5. Platelet count 78,000. Sodium 133. Potassium 5.8. Bicarb 22. BUN 41. Creatinine 4.37. No IV fluids currently. He is maintained on DuoNeb inhalations. Oral diuretics. He is at 3 S. overflow. The patient is seen today 02/03/2022 in follow-up in the intensive care unit. He is currently sitting up in a chair at the bedside. He is maintaining O2 saturations in the 90s on room air. He is somewhat restless. No IV fluids. He is continued on DuoNeb inhalations. Remains on oral diuretics. Currently in a -1.4 L balance. Blood cultures revealed no growth. Sputum culture revealed no growth. Sodium 133. Potassium 4.7. Chloride 94. Bicarb 24. BUN 30. Creatinine 3.65. Objective - Vital Signs Vital signs: Vital Signs Temp 97.8 F 02/03/22 07:59 Pulse 65 02/03/22 07:59 Resp 22 02/03/22 07:59 BP 116/58 02/03/22 07:59 Pulse Ox 94 L 02/03/22 07:59 FiO2 Intake & Output 02/02/22 02/03/22 02/03/22 18:59 06:59 18:59 Intake Total 600 Output Total 2000 0 Balance -2000 600 Weight 75.2 kg Intake: Oral 600 Output: Urine 0 0 Hemodialysis 2000 Other: # Voids 0 0 - Exam GENERAL EXAM: Alert, very pleasant, 76-year-old male, on room air, up in a chair at the bedside, comfortable in no apparent distress. HEAD: Normocephalic/atraumatic. EYES: Normal reaction of pupils, equal size. Conjunctiva pink, sclera white. NOSE: Clear with pink turbinates. THROAT: No erythema or exudates. NECK: C-collar in place. No masses, no JVD, no thyroid enlargement, no adenopathy. CHEST: No chest wall deformity. Symmetrical expansion. LUNGS: Equal air entry with crackles the bilateral bases. CVS: Regular rate and rhythm, normal S1 and S2, no gallops, positive murmurs, no rubs ABDOMEN: Soft, nontender. No hepatosplenomegaly, normal bowel sounds, no guarding or rigidity. EXTREMITIES: No clubbing, no edema, no cyanosis, 2+ pulses and upper and lower extremities. MUSCULOSKELETAL: Muscle strength and tone normal. SPINE: No scoliosis or deformity SKIN: No rashes CENTRAL NERVOUS SYSTEM: No focal deficits, tone is normal in all 4 extremities. PSYCHIATRIC: Alert and oriented -2. Appropriate affect. Intact judgment and insight. - Labs CBC & Chem 7: 02/02/22 06:10 02/03/22 06:08 Labs: Abnormal Lab Results - Last 24 Hours (Table) 02/03/22 02/03/22 Range/Units 06:08 06:08 Sodium 133 L (137-145) mmol/L Chloride 94 L (98-107) mmol/L BUN 30 H (9-20) mg/dL Creatinine 3.65 H (0.66-1.25) mg/dL Phosphorus 5.2 H (2.5-4.5) mg/dL Microbiology - Last 24 Hours (Table) 01/29/22 20:39 Blood Culture - Preliminary Blood No Growth after 96 hours 01/29/22 20:42 Blood Culture - Preliminary Blood No Growth after 96 hours Assessment and Plan Assessment: Acute exacerbation of systolic congestive heart failure with ejection fraction 15-20% Dyspnea secondary to cardiac asthma, improved and on room air 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 Heparin drip off. 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, patient carries a [id number] smoking history Chronic hypoxic respiratory failure patient recently started wearing oxygen History of renal transplant 2, in 1992 from a donor, and in 1995 from a living donor, who was patient's niece History of neck fracture, and patient wears a c-collar Plan: The patient was seen and evaluated Medications and labs reviewed Currently stable and on room air Prognosis is guarded DO NOT RESUSCITATE/DO NOT INTUBATE CODE STATUS We will continue to follow I have personally seen and examined the patient, performed the documentation and the assessment and plan as written. Number of minutes spent on the visit: 10.
--- NOTE | 2022-02-03 12:25 | P.PN ---
Subjective Progress Note Date: 02/03/22 Principal diagnosis: sob Patient still feeling generally weak, is requesting not to go home today but tomorrow instead because he cannot stand up due to weakness. He states that his breathing is feeling better. No pain. Objective - Vital Signs Vital signs: Vital Signs Temp 97.6 F 02/03/22 11:34 Pulse 70 02/03/22 11:34 Resp 22 02/03/22 11:34 BP 116/58 02/03/22 07:59 Pulse Ox 99 02/03/22 11:34 FiO2 Intake & Output 02/02/22 02/03/22 02/03/22 18:59 06:59 18:59 Intake Total 600 Output Total 2000 0 Balance -2000 600 Weight 75.2 kg Intake: Oral 600 Output: Urine 0 0 Hemodialysis 2000 Other: # Voids 0 0 - Exam Constitutional: No acute distress, conversant, pleasant Eyes:Anicteric sclerae, moist conjunctiva, no lid-lag, PERRLA, ENMT: Oropharynx clear, no erythema, exudates Neck: Supple, FROM, no masses, or JVD, No carotid bruits, No thyromegaly Lungs: Clear to auscultation, Clear to percussion, Normal respiratory effort, no accessory muscle use Cardiovascular: Heart regular in rate and rhythm, No murmurs, gallops, or rubs, No peripheral edema Abdominal: Soft, Nontender, no guarding, rebound or rigidity, Normoactive bowel sounds, No hepatomegaly, No splenomegaly, No palpable mass Skin: Normal temperature, tone, texture, turgor, no induration, No subcutaneous nodules, No rash, lesions, No ulcers Extremities: No digital cyanosis, No clubbing, Pedal pulses intact and symme trical, Radial pulses intact and symmetrical, No calf tenderness Psychiatric: Alert and oriented to person, place and time, appropriate affect, intact judgement Neuro: Muscles Strength 5/5 in all 4 extremities, Sensation to light touch grossly present throughout, Cranial nerves II-XII grossly intact, no focal sensory deficits - Labs CBC & Chem 7: 02/02/22 06:10 02/03/22 06:08 Labs: Abnormal Lab Results - Last 24 Hours (Table) 02/03/22 02/03/22 Range/Units 06:08 06:08 Sodium 133 L (137-145) mmol/L Chloride 94 L (98-107) mmol/L BUN 30 H (9-20) mg/dL Creatinine 3.65 H (0.66-1.25) mg/dL Phosphorus 5.2 H (2.5-4.5) mg/dL Microbiology - Last 24 Hours (Table) 01/29/22 20:39 Blood Culture - Preliminary Blood No Growth after 96 hours 01/29/22 20:42 Blood Culture - Preliminary Blood No Growth after 96 hours Assessment and Plan Plan: Community acquired lobar pneumonia Lactic acidosis, resolved Cultures negative so far Continue azithromycin and rocephin supplemental oxygen as needed tylenol for fever as needed Acute exacerbation of systolic congestive heart failure with ejection fraction 1 5-20% Severe aortic disease Per cardio Per cardio trops elevation is not due to CT, off heparin gtt. Echo reviewed. Metoprolol Dialysis per nephro ESRD on HD nephrology is following Dialysis General weakness PT and OT full code DVT PPX on heparin gtt for ACS Anticipated discharge: Tomorrow
[2022-02-03] MEDS: ATORVASTATIN 20 MG TAB PO SCH (20:09)
[2022-02-03] MEDS: METOPROLOL SUCCINATE (ER) 25 MG TAB.ER.24H PO SCH (20:10)
[2022-02-03] MEDS: ALPRAZolam 0.25 MG TAB PO PRN (20:57)
[2022-02-03] MEDS: oxyCODONE-APAP 5-325MG 1 EACH TAB PO PRN (22:36)
[2022-02-04] MEDS: oxyCODONE-APAP 5-325MG 1 EACH TAB PO PRN (03:07)
[2022-02-04] MEDS: ONDANSETRON 4 MG/2 ML VIAL IVP PRN (05:06)
[2022-02-04] MEDS: SEVELAMER 800 MG TAB PO SCH ×3 (06:47→16:44)
[2022-02-04 08:21] LABS: Potassium 4.8 mmol/L (3.5-5.1)
--- NOTE | 2022-02-04 08:58 | P.PN ---
Subjective Progress Note Date: 02/04/22 The patient is a 76-year-old male with multiple comorbid conditions is currently admitted with progressive dyspnea and congestive heart failure. The patient has a known low ejection fraction, as well as end-stage renal disease on dialysis. Over the past 24 hours the patient has more reported hypotensive episodes. Currently his furosemide is being held on dialysis days. The patient was interviewed and examined sitting up in a recliner chair. He is slightly labored and his breathing. He denies any chest pain or chest pressure. GENERAL: Ill-appearing, with mild labored breathing NECK: Distended neck veins LUNGS: Breath sounds diminished to auscultation bilaterally. Respiration equal. No wheezes, rales or rhonchi. HEART: Regular rate and rhythm. Distant heart sounds. S1 and S2 heard. EXTREMITIES: Normal range of motion, no edema. No clubbing or cyanosis. Peripheral pulses intact. VITALS: Blood pressure 100/68, pulse 57, temp 97.4F, SpO2 95% on 2 L nasal cannula TELEMETRY: Sinus rhythm LABS: Sodium 132, potassium 4.8, BUN 46, creatinine 5.35 IMPRESSION: Progressive dyspnea, multifactorial Congestive heart failure, systolic Cardiomyopathy of unknown known duration or etiology Aortic stenosis End-stage renal disease on dialysis History of renal transplant PLAN: Discontinue diuretics Start low dose nitrates Consider hydralazine in the future if blood pressure allows Further recommendations based on clinical course I am dictating on behalf of Dr Kit Saucedo's history/physical and assessment/plan. Objective - Vital Signs Vital signs: Vital Signs Temp 97.4 F L 02/04/22 04:00 Pulse 57 L 02/04/22 04:00 Resp 21 02/04/22 04:00 BP 100/68 02/04/22 04:00 Pulse Ox 95 02/04/22 04:00 FiO2 Intake & Output 02/03/22 02/04/22 02/04/22 18:59 06:59 18:59 Intake Total 500 360 Output Total 0 0 Balance 500 360 Weight 73.3 kg Intake: Oral 500 360 Output: Urine 0 0 Other: # Voids 0 0 - Labs CBC & Chem 7: 02/02/22 06:10 02/04/22 07:46 Labs: Abnormal Lab Results - Last 24 Hours (Table) 02/03/22 02/04/22 Range/Units 06:08 07:46 Sodium 132 L (137-145) mmol/L Chloride 91 L (98-107) mmol/L BUN 46 H (9-20) mg/dL Creatinine 5.35 H (0.66-1.25) mg/dL Calcium 8.0 L (8.4-10.2) mg/dL Phosphorus 5.2 H (2.5-4.5) mg/dL Microbiology - Last 24 Hours (Table) 01/29/22 20:39 Blood Culture - Preliminary Blood No Growth after 120 hours 01/29/22 20:42 Blood Culture - Preliminary Blood No Growth after 120 hours
[2022-02-04] MEDS ORDERED: ISOSORBIDE MONONITRATE ER 15 MG TAB PO SCH (09:00)
--- NOTE | 2022-02-04 09:09 | P.PN ---
Subjective Patient is seen in follow-up for end-stage renal disease. He is maintained on hemodialysis on Friday schedule. Currently sitting up in chair. Denies chest pain or shortness of breath. Blood pressure on the lower side. Feels weak. Vital signs are stable. Blood pressure on the lower side. General: Awake. No acute distress. HEENT: Head exam is unremarkable. LUNGS: Breath sounds decreased. HEART: Rate and Rhythm are regular. ABDOMEN: Soft, no distention. EXTREMITITES: No edema. Objective - Vital Signs Vital signs: Vital Signs Temp 97.4 F L 02/04/22 04:00 Pulse 57 L 02/04/22 04:00 Resp 21 02/04/22 04:00 BP 100/68 02/04/22 04:00 Pulse Ox 95 02/04/22 04:00 FiO2 Intake & Output 02/03/22 02/04/22 02/04/22 18:59 06:59 18:59 Intake Total 500 360 Output Total 0 0 Balance 500 360 Weight 73.3 kg Intake: Oral 500 360 Output: Urine 0 0 Other: # Voids 0 0 - Labs CBC & Chem 7: 02/02/22 06:10 02/04/22 07:46 Labs: Abnormal Lab Results - Last 24 Hours (Table) 02/03/22 02/04/22 Range/Units 06:08 07:46 Sodium 132 L (137-145) mmol/L Chloride 91 L (98-107) mmol/L BUN 46 H (9-20) mg/dL Creatinine 5.35 H (0.66-1.25) mg/dL Calcium 8.0 L (8.4-10.2) mg/dL Phosphorus 5.2 H (2.5-4.5) mg/dL Microbiology - Last 24 Hours (Table) 01/29/22 20:39 Blood Culture - Preliminary Blood No Growth after 120 hours 01/29/22 20:42 Blood Culture - Preliminary Blood No Growth after 120 hours Assessment and Plan Plan: Assessment: 1. End-stage renal disease maintained on hemodialysis on Friday schedule. He has a left upper extremity AV fistula. 2. Pneumonia status post antibiotics. 3. Hyperkalemia secondary to chronic kidney disease. Improved post dialysis. 4. 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 Phosphorus 5.2 dated 01/26/2022. 5. Acute on chronic systolic CHF with ejection fraction of 15-20% with moderate mitral and tricuspid regurgitation. Plan: Short hemodialysis treatment today mostly for ultrafiltration. Another t reatment tomorrow per his outpatient schedule. Add midodrine 5 mg 3 times daily. Hold for systolic blood pressure greater than 110.
[2022-02-04] MEDS: METOPROLOL SUCCINATE (ER) 25 MG TAB.ER.24H PO SCH (09:23)
[2022-02-04] MEDS: ASPIRIN 81 MG PO SCH (09:28)
[2022-02-04] MEDS: MIDODRINE 5 MG TAB PO SCH ×2 (11:42→16:44)
--- NOTE | 2022-02-04 12:14 | P.PN ---
Subjective Progress Note Date: 02/04/22 02/04/2022, the patient is being seen for a follow-up. The patient is calm and comfortable on room air oxygen. He is on and off confused yet there is no agitation. No focal neurological deficits. No signs of any respiratory distress. The patient's last hemodialysis session was on Friday and another session this to be done today. He is known to have a left upper extremity AV fistula. His cardiac rhythm is sinus. Urine output is minimal at this point in time. In terms of his blood work, his blood Showed BUN of 46 with a creatinine of 5.3 and his sodium is 132. The patient has end-stage renal disease and undergoes dialysis 3 times a week. His blood pressure remains on the softer side. He feels weak. No nausea. No vomiting. No diarrhea. No abdominal pain. No other significant events overnight. Objective - Vital Signs Vital signs: Vital Signs Temp 97.5 F L 02/04/22 11:39 Pulse 45 L 02/04/22 11:39 Resp 16 02/04/22 11:39 BP 82/55 02/04/22 11:39 Pulse Ox 97 02/04/22 11:39 FiO2 Intake & Output 02/03/22 02/04/22 02/04/22 18:59 06:59 18:59 Intake Total 500 360 Output Total 0 0 Balance 500 360 Weight 73.3 kg Intake: Oral 500 360 Output: Urine 0 0 Other: # Voids 0 0 - Exam GENERAL EXAM: Alert, very pleasant, 76-year-old male, on room air, up in a chair at the bedside, comfortable in no apparent distress. The patient remains on room air oxygen for now. Breathing is nonlabored HEAD: Normocephalic/atraumatic. EYES: Normal reaction of pupils, equal size. Conjunctiva pink, sclera white. NOSE: Clear with pink turbinates. THROAT: No erythema or exudates. NECK: C-collar in place. No masses, no JVD, no thyroid enlargement, no adenopathy. CHEST: No chest wall deformity. Symmetrical expansion. LUNGS: Equal air entry with crackles the bilateral bases. CVS: Regular rate and rhythm, normal S1 and S2, no gallops, positive murmurs, no rubs ABDOMEN: Soft, nontender. No hepatosplenomegaly, normal bowel sounds, no guarding or rigidity. EXTREMITIES: No clubbing, no edema, no cyanosis, 2+ pulses and upper and lower extremities. MUSCULOSKELETAL: Muscle strength and tone normal. SPINE: No scoliosis or deformity SKIN: No rashes CENTRAL NERVOUS SYSTEM: No focal deficits, tone is normal in all 4 extremities. PSYCHIATRIC: Alert and oriented -2. Appropriate affect. Intact judgment and insight. - Labs CBC & Chem 7: 02/02/22 06:10 02/04/22 07:46 Labs: Abnormal Lab Results - Last 24 Hours (Table) 02/04/22 Range/Units 07:46 Sodium 132 L (137-145) mmol/L Chloride 91 L (98-107) mmol/L BUN 46 H (9-20) mg/dL Creatinine 5.35 H (0.66-1.25) mg/dL Calcium 8.0 L (8.4-10.2) mg/dL Microbiology - Last 24 Hours (Table) 01/29/22 20:39 Blood Culture - Preliminary Blood No Growth after 120 hours 01/29/22 20:42 Blood Culture - Preliminary Blood No Growth after 120 hours Assessment and Plan Plan: Acute exacerbation of systolic congestive heart failure with ejection fraction 15-20%, compensated at this point in time and there are no signs of fluid overload Dyspnea secondary to cardiac asthma, improved and the patient remains on room air 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 No angina. No syncope. Blood pressure is soft Elevated troponins, rule out non-ST elevated myocardial infarction in no acute coronary syndrome. Heparin drip off. 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, patient carries a [id number] smoking history Chronic hypoxic respiratory failure patient recently started wearing oxygen History of renal transplant 2, in 1992 from a donor, and in 1995 from a living donor, who was patient's niece History of neck fracture, and patient wears a c-collar Plan: Continue monitoring the respiratory status No signs of any fluid overload Continue hemodialysis with ultrafiltration and this is to be done today We'll start the patient on midodrine 5 mg 3 times a day Discharge planning is in progress The patient may be able to leave the ICU after hemodialysis today.
--- NOTE | 2022-02-04 13:34 | P.DS ---
Providers Date of admission: 01/29/22 20:53 Attending physician: Clare Nelson MD Consults: 01/29/22 20:53 Consult Physician Routine Consulting Provider: Gloria Rios Consult Reason/Comments: Chronic renal failure Do you want consulting provider notified?: Yes, Notify in am Consult Physician Urgent Consulting Provider: Manuel Russo Consult Reason/Comments: Elevated troponin, NSTEMI Do you want consulting provider notified?: Yes 01/30/22 10:10 Consult Physician Urgent Consulting Provider: Joey Dubon Consult Reason/Comments: left lower lobe pneumonia Do you want consulting provider notified?: Yes Primary care physician: Stated None Hospital Course: Patient is a 76-year-old male he's got multiple medical problems including congestive heart failure end-stage renal disease. Patient was having some difficulty in breathing atypical chest pain present on admission. Patient ended up undergoing additional dialysis sessions in the hospital. Has dialysis on Friday and Friday. Patient's respiratory status improved and he was on room air. His blood pressure was on the low side and he was started on regimen 5 mg 3 times a day by nephrology. Patient was cleared to resume his outpatient dialysis schedule. Patient was offered subacute rehab however family and patient refusing at this time and therefore patient was discharged home in stable condition. He is to resume his normal dialysis schedule. He is to continue with annual home medication midodrine 3 times daily. Patient was not having any difficulty breathing chest pain nausea vomiting fever or chills on day of discharge. Patient Condition at Discharge: Fair Plan - Discharge Summary Discharge Rx Participant: No New Discharge Prescriptions: New Midodrine [ProAmatine] 5 mg PO AC-TID #90 tab Continue Ondansetron [Zofran] 4 mg PO DAILY PRN PRN Reason: Nausea Atorvastatin [Lipitor] 10 mg PO HS polyethylene glycoL 3350 [Miralax] 17 gm PO DAILY PRN PRN Reason: Constipation oxyCODONE-APAP 5-325MG [Percocet 5-325 mg] 1 tab PO BID PRN PRN Reason: Pain Cholecalciferol [Vitamin D3 (25 Mcg = 1000 Iu)] 25 mcg PO DAILY rOPINIRole HCL [Requip] 2 mg PO BID Bumetanide [BUMEX] 2 mg PO BID Magnesium Oxide [Mag-Ox] 400 mg PO DAILY PARoxetine [Paxil] 10 mg PO DAILY Sevelamer Carbonate 1,600 mg PO TID-W/MEALS [place]-3/Dha/Epa/Fish Oil [Fish Oil 1,000 mg Softgel] 1 cap PO DAILY Isosorbide Mononitrate ER [Imdur] 30 mg PO DAILY Discharge Medication List Atorvastatin [Lipitor] 10 mg PO HS 01/29/22 [History] Cholecalciferol [Vitamin D3 (25 Mcg = 1000 Iu)] 25 mcg PO DAILY 01/29/22 [History] [place]-3/Dha/Epa/Fish Oil [Fish Oil 1,000 mg Softgel] 1 cap PO DAILY 01/29/22 [History] Ondansetron [Zofran] 4 mg PO DAILY PRN 01/29/22 [History] Sevelamer Carbonate 1,600 mg PO TID-W/MEALS 01/29/22 [History] oxyCODONE-APAP 5-325MG [Percocet 5-325 mg] 1 tab PO BID PRN 01/29/22 [History] polyethylene glycoL 3350 [Miralax] 17 gm PO DAILY PRN 01/29/22 [History] rOPINIRole HCL [Requip] 2 mg PO BID 01/29/22 [History] Bumetanide [BUMEX] 2 mg PO BID 01/30/22 [History] Isosorbide Mononitrate ER [Imdur] 30 mg PO DAILY 01/30/22 [History] Magnesium Oxide [Mag-Ox] 400 mg PO DAILY 01/30/22 [History] PARoxetine [Paxil] 10 mg PO DAILY 01/30/22 [History] Midodrine [ProAmatine] 5 mg PO AC-TID #90 tab 02/04/22 [Rx] Follow up Appointment(s)/Referral(s): None,Stated [Primary Care Provider] - 1-2 days Discharge Disposition: HOME SELF-CARE
[2022-02-04] MEDS: IPRATROPIUM-ALBUTEROL 3 ML NEB INHALATION PRN (15:55)
[2022-02-04 19:00] VITALS: BP 108/93; PULSE 70; RESP 24; TEMP 97.1
== END 2022-02-04 18:00 | disposition home health service (06) | DRG 291 ==
LOC: EC 19:00 → 3SCARD 20:53 → 2SICU 01-30 18:42
PROVIDERS: ADMIT Internal Medicine; ATTEND Internal Medicine
PROC: 5A1D70Z Performance of Urinary Filtration, Intermittent, Less than 6 Hours Per Day (ICD-10-PCS; principal; 2022-01-31)
DX: I13.2 Hypertensive heart and chronic kidney disease with heart failure and with stage 5 chronic kidney disease, or end stage renal disease (principal); I50.23 Acute on chronic systolic (congestive) heart failure; J18.1 Lobar pneumonia, unspecified organism; J96.21 Acute and chronic respiratory failure with hypoxia; N18.6 End stage renal disease; E87.2 Acidosis; Z94.0 Kidney transplant status; I42.9 Cardiomyopathy, unspecified; J98.01 Acute bronchospasm; E83.9 Disorder of mineral metabolism, unspecified; E78.5 Hyperlipidemia, unspecified; E87.5 Hyperkalemia; F41.9 Anxiety disorder, unspecified; R77.8 Other specified abnormalities of plasma proteins; Z99.2 Dependence on renal dialysis; I08.3 Combined rheumatic disorders of mitral, aortic and tricuspid valves; I25.10 Atherosclerotic heart disease of native coronary artery without angina pectoris; I49.3 Ventricular premature depolarization; S12.9XXD Fracture of neck, unspecified, subsequent encounter; Z91.81 History of falling; Z99.81 Dependence on supplemental oxygen; Z20.822 Contact with and (suspected) exposure to COVID-19; Z79.82 Long term (current) use of aspirin; Z79.899 Other long term (current) drug therapy; Z80.0 Family history of malignant neoplasm of digestive organs; Z82.3 Family history of stroke; Z87.891 Personal history of nicotine dependence
CPT/HCPCS: 36415; 71045; 71046; 80048; 80053; 80061; 83605; 83721; 83735; 83880; 84100; 84145; 84484; 85025; 85027; 85610; 85730; 87040; 87070; 87205; 87635; 90935; 93005; 93306; 94640; 94760; 96365; 96366; 96368; 96375; 99285

== ENCOUNTER 2022-03-11 19:07 | Inpatient (IN) | payer MEDICARE, OTHER ==
[2022-03-11] MEDS ORDERED: FUROSEMIDE 10 MG/ML 10 ML VIAL IV STA (19:27)
--- NOTE | 2022-03-11 19:30 | ED ---
General Adult HPI - General Chief complaint: Shortness of Breath Stated complaint: SOB Time Seen by Provider: 03/11/22 19:10 Source: patient, EMS, RN notes reviewed, old records reviewed Mode of arrival: EMS Limitations: no limitations - History of Present Illness Initial comments: This is a 76-year-old male who presents emergency Department with a past medical history significant for renal failure and congestive heart failure. Patient states his difficulty breathing is getting progressively worse so he came to emergency department today. Patient denies any fever chills or cough. Patient denies headache patient denies numbness weakness. Patient denies lightheadedness or dizziness. Patient denies any chest pain or palpitations. Patient denies abdominal pain patient denies nausea vomiting diarrhea. Patient states there is a little more swelling is legs are normal. Patient states he was dialyzed on Friday but on Friday he felt much worse and thought he needed to be dialyzed again. - Related Data Home Medications Medication Instructions Recorded Confirmed Atorvastatin [Lipitor] 10 mg PO HS 01/29/22 01/30/22 Cholecalciferol [Vitamin D3 (25 25 mcg PO DAILY 01/29/22 01/29/22 Mcg = 1000 Iu)] [place]-3/Dha/Epa/Fish Oil [Fish Oil 1 cap PO DAILY 01/29/22 01/29/22 1,000 mg Softgel] Ondansetron [Zofran] 4 mg PO DAILY PRN 01/29/22 01/29/22 Sevelamer Carbonate 1,600 mg PO TID-W/MEALS 01/29/22 01/29/22 oxyCODONE-APAP 5-325MG [Percocet 1 tab PO BID PRN 01/29/22 01/29/22 5-325 mg] polyethylene glycoL 3350 [Miralax] 17 gm PO DAILY PRN 01/29/22 01/29/22 rOPINIRole HCL [Requip] 2 mg PO BID 01/29/22 01/30/22 Bumetanide [BUMEX] 2 mg PO BID 01/30/22 01/30/22 Isosorbide Mononitrate ER [Imdur] 30 mg PO DAILY 01/30/22 01/30/22 Magnesium Oxide [Mag-Ox] 400 mg PO DAILY 01/30/22 01/30/22 PARoxetine [Paxil] 10 mg PO DAILY 01/30/22 01/30/22 Previous Rx's Medication Instructions Recorded Midodrine [ProAmatine] 5 mg PO AC-TID #90 tab 02/04/22 Allergies Allergy/AdvReac Type Severity Reaction Status Date / Time enalaprilat [From Vasotec] Allergy Swelling Verified 02/01/22 07:45 lisinopril Allergy Swelling Verified 02/01/22 07:45 Review of Systems ROS Statement: Those systems with pertinent positive or pertinent negative responses have been documented in the HPI. ROS Other: All systems not noted in ROS Statement are negative. Past Medical History Past Medical History: Dialysis, Renal Disease Additional Past Medical History / Comment(s): Heart murmur History of Any Multi-Drug Resistant Organisms: None Reported Additional Past Surgical History / Comment(s): Kidney transplant Past Anesthesia/Blood Transfusion Reactions: No Reported Reaction Past Psychological History: No Psychological Hx Reported Smoking Status: Former smoker Past Alcohol Use History: Rare Past Drug Use History: None Reported - Past Family History Mother Family Medical History: Cancer Additional Family Medical History / Comment(s): pancreatic cancer Father Additional Family Medical History / Comment(s): father of stroke , mother pancreatic cancer General Exam - General Exam Comments Initial Comments: GENERAL: Patient is well-developed and well-nourished. Patient is nontoxic and well- hydrated and is in mild distress. ENT: Neck is soft and supple. No significant lymphadenopathy is noted. Oropharynx is clear. Moist mucous membranes. Neck has full range of motion without eliciting any pain. EYES: The sclera were anicteric and conjunctiva were pink and moist. Extraocular movements were intact and pupils were equal round and reactive to light. Eyelids were unremarkable. PULMONARY: Unlabored respirations. Good breath sounds bilaterally. Slight crackles in the bases CARDIOVASCULAR: There is a regular rate and rhythm without any murmurs gallops or rubs. ABDOMEN: Soft and nontender with normal bowel sounds. SKIN: Skin is clear with no lesions or rashes and otherwise unremarkable. NEUROLOGIC: Patient is alert and oriented x3. Cranial nerves II through XII are grossly intact. Motor and sensory are also intact. Normal speech, volume and content. Symmetrical smile. MUSCULOSKELETAL: Normal extremities with adequate strength and full range of motion. LYMPHATICS: No significant lymphadenopathy is noted PSYCHIATRIC: Normal psychiatric evaluation. Limitations: no limitations Course Vital Signs 03/11/22 03/11/22 19:08 19:54 Pulse Rate 101 H 94 Respiratory 30 H 24 Rate Blood Pressure 124/88 120/77 O2 Sat by Pulse 98 100 Oximetry Medical Decision Making - Medical Decision Making EKG shows sinus tachycardia at 100 bpm MN interval 265 QRSs 100 a QT interval 363 QTC is 420. Patient's EKG shows no ST segment elevation or depression. Chest x-ray shows pleural effusion on the right consistent with congestive heart failure. I gave the patient 100 of Lasix. I spoke with Dr. Larose and he agreed to admit the patient admitted the patient I consult nephrology - Lab Data Result diagrams: 03/11/22 19:30 03/11/22 19:30 Lab Results 03/11/22 03/11/22 03/11/22 Range/Units 19:30 19:30 19:30 WBC 3.3 L (3.8-10.6) k/uL RBC 3.42 L (4.30-5.90) m/uL Hgb 11.1 L (13.0-17.5) gm/dL Hct 34.5 L (39.0-53.0) % MCV 101.0 H (80.0-100.0) fL MCH 32.4 (25.0-35.0) pg MCHC 32.1 (31.0-37.0) g/dL RDW 17.1 H (11.5-15.5) % Plt Count 88 L (150-450) k/uL MPV 11.9 Neutrophils % 68 % Lymphocytes % 14 % Monocytes % 12 % Eosinophils % 1 % Basophils % 1 % Neutrophils # 2.3 (1.3-7.7) k/uL Lymphocytes # 0.5 L (1.0-4.8) k/uL Monocytes # 0.4 (0-1.0) k/uL Eosinophils # 0.0 (0-0.7) k/uL Basophils # 0.0 (0-0.2) k/uL Hypochromasia Slight Anisocytosis Slight Macrocytosis Moderate PT 12.0 (9.0-12.0) sec INR 1.1 (<1.2) APTT 26.9 (22.0-30.0) sec Sodium 138 (137-145) mmol/L Potassium 5.4 H (3.5-5.1) mmol/L Chloride 93 L (98-107) mmol/L Carbon Dioxide 23 (22-30) mmol/L Anion Gap 22 mmol/L BUN 64 H (9-20) mg/dL Creatinine 6.47 H (0.66-1.25) mg/dL Est GFR (CKD-EPI)AfAm 9 (>60 ml/min/1.73 sqM) Est GFR (CKD-EPI)NonAf 8 (>60 ml/min/1.73 sqM) Glucose 97 (74-99) mg/dL Plasma Lactic Acid Ryan (0.7-2.0) mmol/L Calcium 7.7 L (8.4-10.2) mg/dL Magnesium 1.9 (1.6-2.3) mg/dL Total Bilirubin 0.9 (0.2-1.3) mg/dL AST 55 (17-59) U/L ALT 29 (4-49) U/L Alkaline Phosphatase 146 H (38-126) U/L Troponin I (0.000-0.034) ng/mL Total Protein 7.1 (6.3-8.2) g/dL Albumin 4.3 (3.5-5.0) g/dL 03/11/22 03/11/22 Range/Units 19:30 19:30 WBC (3.8-10.6) k/uL RBC (4.30-5.90) m/uL Hgb (13.0-17.5) gm/dL Hct (39.0-53.0) % MCV (80.0-100.0) fL MCH (25.0-35.0) pg MCHC (31.0-37.0) g/dL RDW (11.5-15.5) % Plt Count (150-450) k/uL MPV Neutrophils % % Lymphocytes % % Monocytes % % Eosinophils % % Basophils % % Neutrophils # (1.3-7.7) k/uL Lymphocytes # (1.0-4.8) k/uL Monocytes # (0-1.0) k/uL Eosinophils # (0-0.7) k/uL Basophils # (0-0.2) k/uL Hypochromasia Anisocytosis Macrocytosis PT (9.0-12.0) sec INR (<1.2) APTT (22.0-30.0) sec Sodium (137-145) mmol/L Potassium (3.5-5.1) mmol/L Chloride (98-107) mmol/L Carbon Dioxide (22-30) mmol/L Anion Gap mmol/L BUN (9-20) mg/dL Creatinine (0.66-1.25) mg/dL Est GFR (CKD-EPI)AfAm (>60 ml/min/1.73 sqM) Est GFR (CKD-EPI)NonAf (>60 ml/min/1.73 sqM) Glucose (74-99) mg/dL Plasma Lactic Acid Ryan 3.0 H* (0.7-2.0) mmol/L Calcium (8.4-10.2) mg/dL Magnesium (1.6-2.3) mg/dL Total Bilirubin (0.2-1.3) mg/dL AST (17-59) U/L ALT (4-49) U/L Alkaline Phosphatase (38-126) U/L Troponin I 0.410 H* (0.000-0.034) ng/mL Total Protein (6.3-8.2) g/dL Albumin (3.5-5.0) g/dL Disposition Clinical Impression: Acute pulmonary edema, Chronic renal failure Disposition: ADMITTED IP TO THIS HOSP Referrals: None,Stated [Primary Care Provider] - 1-2 days Time of Disposition: 20:30
[2022-03-11 19:45] LABS: Anisocytosis Slight; Basophils % (A) 1 %; Eosinophils % (A) 1 %; HCT 34.5 % (39.0-53.0); HGB 11.1 gm/dL (13.0-17.5); Hypochromasia Slight; Lymphocytes # (A) 0.5 k/uL (1.0-4.8); Lymphocytes % (A) 14 %; MCH 32.4 pg (25.0-35.0); MCHC 32.1 g/dL (31.0-37.0); Macrocytosis Moderate; Mean Platelet Volume 11.9; Monocytes # (A) 0.4 k/uL (0-1.0); Monocytes % (A) 12 %; Neutrophils # (A) 2.3 k/uL (1.3-7.7); Neutrophils % (A) 68 %; RBC 3.42 m/uL (4.30-5.90); RDW 17.1 % (11.5-15.5); WBC 3.3 k/uL (3.8-10.6)
[2022-03-11 19:54] LABS: Albumin 4.3 g/dL (3.5-5.0); Calcium 7.7 mg/dL (8.4-10.2); Magnesium 1.9 mg/dL (1.6-2.3); Potassium 5.4 mmol/L (3.5-5.1); Total Bilirubin 0.9 mg/dL (0.2-1.3); Total Protein 7.1 g/dL (6.3-8.2)
[2022-03-11 20:02] LABS: INR 1.1 (<1.2); Partial Thromboplastin Time 26.9 sec (22.0-30.0)
--- NOTE | 2022-03-11 20:03 | XR ---
EXAMINATION TYPE: XR chest 2V DATE OF EXAM: 03/11/2022 7:40 PM COMPARISON: Chest radiographs from 01/31/2022 TECHNIQUE: XR chest 2V Frontal and lateral views of the chest. CLINICAL INDICATION:Male, 76 years old with history of difficulty breathing; FINDINGS: Lungs/Pleura: Right pleural effusion with cardiomegaly. Pulmonary vascularity: Pulmonary vascular congestion. Heart/mediastinum: Cardiomediastinal silhouette is enlarged and partially obscured due to overlying a nd adjacent opacities. Musculoskeletal: No acute osseous pathology. IMPRESSION: Right-sided pleural effusion. Medical history correlate with serum BNP for congestive heart failure.
[2022-03-11 20:06] LABS: Platelet Count 88 k/uL (150-450)
--- NOTE | 2022-03-12 00:02 | P.HPIM ---
History of Present Illness H&P Date: 03/11/22 Chief Complaint: shortness of breath 76 year old male with ESRD (s/p 2 renal transplants 1992 donor , 1995 liver donor), advanced systolic CHF with LVEF 15-20%, severe aortic valve stenosis , 60 pack year of smoking patient has recently moved from [place] to [place] , has not established PCP care yet. he Receives HD through a left arm fistual on . his last session was Friday (2 days ago) however, he claims that this time he started feeling SOB next day and was hoping to get another HD session . he denies any fever, chills, chest pain, body aches, sore throat, abd pain , nausea or vomiting, denies any changes in bowel habits. he makes no urine, and denies any GI bleeding he was recently hospitalized for similar issue on January 29, upon discharge he declined placement at [facility]. today he reports Orthopnea , PND, productive cough , SOB despite using supplemental oxygen at home. he is getting exertional dyspnea with mild exertion , and has progressed to SOB at rest. he reports some leg edema , but denies any known sick contact. [place] in the ED CXR showed pulmonary vascular congestion with pleural effusion , WBC 3.3, Hgb 11.1 MCV 101, Plt 88, K 5.4 , LA 3.0, trop up to 0.4 from his baseline of 0.2 Review of Systems Pertinent positives as noted in HPI. All other systems were reviewed and are negative Past Medical History Past Medical History: Heart Failure, Dialysis, Renal Disease Additional Past Medical History / Comment(s): Heart murmur History of Any Multi-Drug Resistant Organisms: None Reported Additional Past Surgical History / Comment(s): Kidney transplant Past Anesthesia/Blood Transfusion Reactions: No Reported Reaction Past Psychological History: No Psychological Hx Reported Smoking Status: Former smoker Past Alcohol Use History: Rare Past Drug Use History: None Reported - Past Family History Mother Family Medical History: Cancer Additional Family Medical History / Comment(s): pancreatic cancer Father Additional Family Medical History / Comment(s): father of stroke , mother pancreatic cancer Medications and Allergies Home Medications Medication Instructions Recorded Confirmed Type Atorvastatin [Lipitor] 10 mg PO HS 01/29/22 03/11/22 History Cholecalciferol [Vitamin D3 (25 25 mcg PO DAILY 01/29/22 03/11/22 History Mcg = 1000 Iu)] [place]-3/Dha/Epa/Fish Oil [Fish Oil 1 cap PO DAILY 01/29/22 03/11/22 History 1,000 mg Softgel] Ondansetron [Zofran] 4 mg PO DAILY PRN 01/29/22 03/11/22 History Sevelamer Carbonate 1,600 mg PO TID-W/MEALS 01/29/22 03/11/22 History oxyCODONE-APAP 5-325MG [Percocet 1 tab PO BID PRN 01/29/22 03/11/22 History 5-325 mg] rOPINIRole HCL [Requip] 2 mg PO BID 01/29/22 03/11/22 History Bumetanide [BUMEX] 2 mg PO BID 01/30/22 03/11/22 History Isosorbide Mononitrate ER [Imdur] 30 mg PO DAILY 01/30/22 03/11/22 History Magnesium Oxide [Mag-Ox] 400 mg PO DAILY 01/30/22 03/11/22 History PARoxetine [Paxil] 10 mg PO DAILY 01/30/22 03/11/22 History Allergies Allergy/AdvReac Type Severity Reaction Status Date / Time enalaprilat [From Vasotec] Allergy Swelling Verified 03/11/22 20:48 lisinopril Allergy Swelling Verified 03/11/22 20:48 Physical Exam Vitals: Vital Signs Pulse Resp BP Pulse Ox 03/11/22 19:54 94 24 120/77 100 03/11/22 19:08 101 H 30 H 124/88 98 Intake and Output 03/11/22 03/11/22 03/11/22 06:59 14:59 22:59 Other: Weight 71.668 kg Constitutional: No acute distress, conversant Eyes: Anicteric sclerae, moist conjunctiva, Pupils equal round reactive to light ENMT: NC/AT Oropharynx clear, no erythema, or exudates Neck: Supple, no masses, + JVD No carotid bruits No thyromegaly Lungs: inspiratory rales at lung bases, no wheezing Normal respiratory effort, no accessory muscle use Cardiovascular: Heart regular in rate and rhythm, systolic murmurs, no gallops, or rubs +1 bilateral peripheral leg trace Abdominal: Soft Nontender, no guarding, rebound or rigidity Abdomen moving with respiration Normoactive bowel sounds No hepatomegaly, No splenomegaly No palpable mass No abdominal wall hernia noted Skin: Normal temperature, tone, texture, turgor No induration No subcutaneous nodules No rash, lesions No ulcers Extremities: No digital cyanosis No clubbing Pedal pulses intact and symmetrical Radial pulses intact and symmetrical No calf tenderness Psychiatric: Alert and oriented to person, place and time Appropriate affect fair judgement Neuro Muscles Strength 4/5 in all 4 extremities Sensation to light touch grossly present throughout Cranial nerves II-XII grossly intact No focal sensory deficits Lymphatics: no palpable cervical or supraclavicular , or inguinal lymph nodes Results CBC & Chem 7: 03/11/22 19:30 03/11/22 19:30 Labs: Abnormal Lab Results - Last 24 Hours (Table) 03/11/22 03/11/22 03/11/22 Range/Units 19:30 19:30 19:30 WBC 3.3 L (3.8-10.6) k/uL RBC 3.42 L (4.30-5.90) m/uL Hgb 11.1 L (13.0-17.5) gm/dL Hct 34.5 L (39.0-53.0) % MCV 101.0 H (80.0-100.0) fL RDW 17.1 H (11.5-15.5) % Plt Count 88 L (150-450) k/uL Lymphocytes # 0.5 L (1.0-4.8) k/uL Potassium 5.4 H (3.5-5.1) mmol/L Chloride 93 L (98-107) mmol/L BUN 64 H (9-20) mg/dL Creatinine 6.47 H (0.66-1.25) mg/dL Plasma Lactic Acid Ryan 3.0 H* (0.7-2.0) mmol/L Calcium 7.7 L (8.4-10.2) mg/dL Alkaline Phosphatase 146 H (38-126) U/L Troponin I (0.000-0.034) ng/mL 03/11/22 Range/Units 19:30 WBC (3.8-10.6) k/uL RBC (4.30-5.90) m/uL Hgb (13.0-17.5) gm/dL Hct (39.0-53.0) % MCV (80.0-100.0) fL RDW (11.5-15.5) % Plt Count (150-450) k/uL Lymphocytes # (1.0-4.8) k/uL Potassium (3.5-5.1) mmol/L Chloride (98-107) mmol/L BUN (9-20) mg/dL Creatinine (0.66-1.25) mg/dL Plasma Lactic Acid Ryan (0.7-2.0) mmol/L Calcium (8.4-10.2) mg/dL Alkaline Phosphatase (38-126) U/L Troponin I 0.410 H* (0.000-0.034) ng/mL Assessment and Plan Assessment: acute CHF exacerbation (LVEF 15-20%) ESRD on HD left AV fistula , TTS plan patient received 100 mg IV lasix in the ED nephro consult for HD renal diet with fluid restriction 1500 cc /24 hrs resume bumex monitor vital signs hall monitor supplemental oxygen as needed patient is not currently on ACEI or BB , or aldactone , possibly due to low blood pressure consult cardiology for heart failure medications optimization lactic acidosis , resolved elevated trops, (chronically elevated in ESRD patient , no report of chest pain ) continue to trend valvular heart disease , with suspected severe aortic valve stenosis await cardiology recs avoid hypotension thrombocytopenia , denies any bleeding continue to monitor anemia of chronic disease full code DVT PPX mechanical due to thrombocytopenia
[2022-03-12] MEDS: BUMETANIDE 1 MG TAB PO SCH ×3 (00:35→20:39)
[2022-03-12] MEDS: SEVELAMER 800 MG TAB PO SCH ×3 (07:06→17:32)
[2022-03-12] MEDS: PARoxetine 10 MG TAB PO SCH (09:44)
[2022-03-12] MEDS: ISOSORBIDE MONONITRATE ER 30 MG TAB.ER.24H PO SCH ×2 (09:44→16:35)
[2022-03-12 11:02] VITALS: BMI 23.3
--- NOTE | 2022-03-12 11:51 | P.CRDCN ---
History of Present Illness Consult date: 03/12/22 History of present illness: CHIEF COMPLAINT: Elevated troponins HISTORY OF PRESENT ILLNESS: This is a 76-year-old male with a past medical history significant for end-stage renal disease on hemodialysis with previous kidney transplant 2, cardiomyopathy with an ejection fraction of 20%, aortic stenosis, and hyperlipidemia. Patient follows in the office with Dr. Phillips. We have been asked to see the patient in consultation for abnormal troponins. Patient presented to the hospital with a chief complaint of shortness of breath. Patient denies any chest pain or pressure. Patient's vital signs are stable. Blood pressure 111/69. * EKG reveals sinus tachycardia with no signs of acute ischemia. Nonspecific ST-T wave changes.. Left axis deviation. LVH. * Chest xray right sided pleural effusion * Laboratory data: WBC 3.3. Hemoglobin 11.1. Platelet count 88. Sodium 138. Potassium 5.4. BUN 64. Creatinine 6.47. Lactic acid 3.0. Troponin 0.410. ProBNP 102,000. * Current home cardiac medications include Imdur 30 mg daily, Lipitor 10 mg at night, and Bumex 2 mg twice a day * Most recent echocardiogram obtained in January 2022 revealed ejection fraction 15-20%. REVIEW OF SYSTEMS: Thorough review of systems not completed secondary to limited evaluation/examination due to Covid19 PHYSICAL EXAM: Thorough physical exam not completed secondary to limited evaluation/examination due to Covid19 ASSESSMENT: Acute Covid 19 End-stage renal disease on hemodialysis Fluid overload, secondary to above Abnormal troponin, no evidence of acute coronary syndrome, likely secondary to end-stage renal disease History of renal transplant 2 Severe cardiomyopathy, etiology unclear Valvular heart disease PLAN: Obtain limited echo Obtain additional troponin Patient with soft blood pressures and has been unable to tolerate heart failure regimen indications in the past due to hypotension and bradycardia during dialysis. We will continue to monitor vital signs and add medications as patient can tolerate Further recommendations pending patient's Nurse practitioner note has been reviewed by physician. Signing provider agrees with the documented findings, assessment, and plan of care. Past Medical History Past Medical History: Heart Failure, Dialysis, Renal Disease Additional Past Medical History / Comment(s): Heart murmur History of Any Multi-Drug Resistant Organisms: None Reported Past Surgical History: Appendectomy Additional Past Surgical History / Comment(s): Kidney transplant Past Anesthesia/Blood Transfusion Reactions: No Reported Reaction Past Psychological History: No Psychological Hx Reported Smoking Status: Former smoker Past Alcohol Use History: Rare Past Drug Use History: None Reported - Past Family History Mother Family Medical History: Cancer Additional Family Medical History / Comment(s): pancreatic cancer Father Family Medical History: CVA/TIA Additional Family Medical History / Comment(s): father of stroke , mother pancreatic cancer Medications and Allergies Home Medications Medication Instructions Recorded Confirmed Type Atorvastatin [Lipitor] 10 mg PO HS 01/29/22 03/11/22 History Cholecalciferol [Vitamin D3 (25 25 mcg PO DAILY 01/29/22 03/11/22 History Mcg = 1000 Iu)] [place]-3/Dha/Epa/Fish Oil [Fish Oil 1 cap PO DAILY 01/29/22 03/11/22 History 1,000 mg Softgel] Ondansetron [Zofran] 4 mg PO DAILY PRN 01/29/22 03/11/22 History Sevelamer Carbonate 1,600 mg PO TID-W/MEALS 01/29/22 03/11/22 History oxyCODONE-APAP 5-325MG [Percocet 1 tab PO BID PRN 01/29/22 03/11/22 History 5-325 mg] rOPINIRole HCL [Requip] 2 mg PO BID 01/29/22 03/11/22 History Bumetanide [BUMEX] 2 mg PO BID 01/30/22 03/11/22 History Isosorbide Mononitrate ER [Imdur] 30 mg PO DAILY 01/30/22 03/11/22 History Magnesium Oxide [Mag-Ox] 400 mg PO DAILY 01/30/22 03/11/22 History PARoxetine [Paxil] 10 mg PO DAILY 01/30/22 03/11/22 History Allergies Allergy/AdvReac Type Severity Reaction Status Date / Time enalaprilat [From Vasotec] Allergy Swelling Verified 03/11/22 20:48 lisinopril Allergy Swelling Verified 03/11/22 20:48 Physical Exam Vitals: Vital Signs Temp Pulse Pulse Resp BP BP Pulse Ox 03/12/22 08:41 95 03/12/22 08:00 98.2 F 86 18 111/69 99 03/12/22 04:45 20 98 03/12/22 04:40 98.3 F 91 22 110/75 99 03/11/22 23:05 98.4 F 96 24 108/74 99 03/11/22 19:54 94 24 120/77 100 03/11/22 19:08 101 H 30 H 124/88 98 Intake and Output 03/11/22 03/12/22 03/12/22 22:59 06:59 14:59 Intake Total 550 Balance 550 Intake: Oral 550 Other: Weight 71.668 kg 71.668 kg 71.668 kg Results 03/11/22 19:30 03/11/22 19:30 Cardiac Enzymes 03/11/22 03/11/22 Range/Units 19:30 19:30 AST 55 (17-59) U/L Troponin I 0.410 H* (0.000-0.034) ng/mL Coagulation 03/11/22 Range/Units 19:30 PT 12.0 (9.0-12.0) sec APTT 26.9 (22.0-30.0) sec CBC 03/11/22 Range/Units 19:30 WBC 3.3 L (3.8-10.6) k/uL RBC 3.42 L (4.30-5.90) m/uL Hgb 11.1 L (13.0-17.5) gm/dL Hct 34.5 L (39.0-53.0) % Plt Count 88 L (150-450) k/uL Comprehensive Metabolic Panel 03/11/22 Range/Units 19:30 Sodium 138 (137-145) mmol/L Potassium 5.4 H (3.5-5.1) mmol/L Chloride 93 L (98-107) mmol/L Carbon Dioxide 23 (22-30) mmol/L BUN 64 H (9-20) mg/dL Creatinine 6.47 H (0.66-1.25) mg/dL Glucose 97 (74-99) mg/dL Calcium 7.7 L (8.4-10.2) mg/dL AST 55 (17-59) U/L ALT 29 (4-49) U/L Alkaline Phosphatase 146 H (38-126) U/L Total Protein 7.1 (6.3-8.2) g/dL Albumin 4.3 (3.5-5.0) g/dL Current Medications Generic Name Dose Route Start Last Admin Trade Name Freq PRN Reason Stop Dose Admin Atorvastatin Calcium 10 mg 03/12/22 21:00 Atorvastatin 10 Mg Tab PO HS MONY Bumetanide 2 mg 03/11/22 23:45 03/12/22 09:43 Bumetanide 1 Mg Tab PO 2 mg BID MONY Administration Isosorbide Mononitrate 30 mg 03/12/22 09:00 Isosorbide Mononitrate Er 30 Mg Tab.Er.24h PO DAILY MONY Oxycodone/Acetaminophen 1 each 03/11/22 23:43 Oxycodone-Apap 5-325mg 1 Each Tab PO BID PRN Pain Paroxetine HCl 10 mg 03/12/22 09:00 03/12/22 09:44 Paroxetine 10 Mg Tab PO 10 mg DAILY MONY Administration Ropinirole HCl 2 mg 03/11/22 23:45 03/12/22 09:43 Ropinirole Hcl 1 Mg Tab PO 2 mg BID MONY Administration Sevelamer Carbonate 1,600 mg 03/12/22 07:30 03/12/22 07:06 Sevelamer 800 Mg Tab PO 1,600 mg TID-W/MEALS MONY Administration Intake and Output 03/11/22 03/12/22 03/12/22 22:59 06:59 14:59 Intake Total 550 Balance 550 Intake: Oral 550 Other: Weight 71.668 kg 71.668 kg 71.668 kg Patient Weight 03/13/22 06:59 Weight 71.668 kg 03/11/22 19:30 03/11/22 19:30
[2022-03-12] MEDS ORDERED: dexAMETHasone 2 MG TAB PO STA (12:03)
--- NOTE | 2022-03-12 13:11 | P.NPCON ---
History of Present Illness - Reason for Consult end stage renal disease - History of Present Illness Patient is a 76-year-old male with end-stage renal disease and history of 2 prior renal transplants and currently back on hemodialysis. Patient is maintained on a Friday schedule. He recently moved from [place]. Patient has a left arm AV fistula. He states that he has been complaining of increased shortness of breath for the last week. Patient denied any fever Patient tested positive for COVID-19 PCR. Patient was recently hospitalized in January with acute hypoxic respiratory fa ilure and volume overload. He was found to have cardiomyopathy with ejection fraction of 15-20% with moderate tricuspid regurgitation. Chest x-ray showed evidence of CHF and pulmonary vascular congestion. Review of Systems As per HPI, other systems negative Past Medical History Past Medical History: Heart Failure, Dialysis, Renal Disease Additional Past Medical History / Comment(s): Heart murmur History of Any Multi-Drug Resistant Organisms: None Reported Past Surgical History: Appendectomy Additional Past Surgical History / Comment(s): Kidney transplant Past Anesthesia/Blood Transfusion Reactions: No Reported Reaction Past Psychological History: No Psychological Hx Reported Smoking Status: Former smoker Past Alcohol Use History: Rare Past Drug Use History: None Reported - Past Family History Mother Family Medical History: Cancer Additional Family Medical History / Comment(s): pancreatic cancer Father Family Medical History: CVA/TIA Additional Family Medical History / Comment(s): father of stroke , mother pancreatic cancer Medications and Allergies Home Medications Medication Instructions Recorded Confirmed Type Atorvastatin [Lipitor] 10 mg PO HS 01/29/22 03/11/22 History Cholecalciferol [Vitamin D3 (25 25 mcg PO DAILY 01/29/22 03/11/22 History Mcg = 1000 Iu)] [place]-3/Dha/Epa/Fish Oil [Fish Oil 1 cap PO DAILY 01/29/22 03/11/22 History 1,000 mg Softgel] Ondansetron [Zofran] 4 mg PO DAILY PRN 01/29/22 03/11/22 History Sevelamer Carbonate 1,600 mg PO TID-W/MEALS 01/29/22 03/11/22 History oxyCODONE-APAP 5-325MG [Percocet 1 tab PO BID PRN 01/29/22 03/11/22 History 5-325 mg] rOPINIRole HCL [Requip] 2 mg PO BID 01/29/22 03/11/22 History Bumetanide [BUMEX] 2 mg PO BID 01/30/22 03/11/22 History Isosorbide Mononitrate ER [Imdur] 30 mg PO DAILY 01/30/22 03/11/22 History Magnesium Oxide [Mag-Ox] 400 mg PO DAILY 01/30/22 03/11/22 History PARoxetine [Paxil] 10 mg PO DAILY 01/30/22 03/11/22 History Allergies Allergy/AdvReac Type Severity Reaction Status Date / Time enalaprilat [From Vasotec] Allergy Swelling Verified 03/11/22 20:48 lisinopril Allergy Swelling Verified 03/11/22 20:48 Physical Exam Vitals: Vital Signs Temp Pulse Pulse Resp BP BP Pulse Ox 03/12/22 08:41 95 03/12/22 08:00 98.2 F 86 18 111/69 99 03/12/22 04:45 20 98 03/12/22 04:40 98.3 F 91 22 110/75 99 03/11/22 23:05 98.4 F 96 24 108/74 99 03/11/22 19:54 94 24 120/77 100 03/11/22 19:08 101 H 30 H 124/88 98 Intake and Output 03/11/22 03/12/22 03/12/22 22:59 06:59 14:59 Intake Total 550 Balance 550 Intake: Oral 550 Other: Weight 71.668 kg 71.668 kg 71.668 kg Patient is awake, comfortable, not in any acute distress Examination of the heart S1 and S2 Examination lungs decreased breath sounds at the bases with basilar crackles heard Abdomen is soft nontender Examination lower extremities shows edema 1+ bilaterally [employer] exam grossly intact Results - Lab Results Most recent lab results Calcium 7.7 mg/dL (8.4-10.2) L 03/11/22 19:30 Magnesium 1.9 mg/dL (1.6-2.3) 03/11/22 19:30 03/11/22 19:30 03/11/22 19:30 Assessment and Plan Assessment: 1. End-stage renal disease on hemodialysis on a Friday schedule via left arm AV fistula 2. Volume overload 3. Positive COVID-19 PCR with chest x-ray showing evidence of pulmonary vascular congestion 4. 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 History of 2 prior renal transplant with the first one in 1992 which was a donor allograft and the second one in 1995 from his knees which lasted for 25 years. Patient was restarted on hemodialysis in May 2021 Plan: Hemodialysis today with increase UF as tolerated. Will repeat hemodialysis in a.m. Repeat chest x-ray after hemodialysis tomorrow Continue phosphate binders next Thank you for the consultation. We'll continue to follow the patient with you during his hospitalization
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
--- NOTE | 2022-03-12 15:36 | P.PN ---
Subjective Progress Note Date: 03/12/22 (delayed charting seen at 1125) Patient is a 76 year old male with ESRD (s/p 2 renal transplants 1992 donor ,1995 liver donor) currently on HD left arm fistual on TTS, advanced sys tolic CHF with LVEF 15-20%, and severe aortic valve stenosis who presented to the ER with worsening shortness of breath. In the ER he outpatient. Chest x- ray didn't demonstrate vascular congestion with pleural effusion. Laboratory analysis was remarkable for white blood cell count 3.3, hemoglobin 11.1, platelets 88, potassium 5.4, lactic acid 3, troponin 0.4. He was given a dose of IV diuresis. Arrangements are made for admission. Cardiology and nephrology were consulted. He did test positive for COVID-19 and pulmonary was consulted. Patient seen and examined at bedside. He reports that his breathing is somewhat better than yesterday, mostly because he is not active and has been sitting in bed. He denies any nausea, vomiting, significant lower extremity edema. We discussed his diagnosis of COVID. He adamantly denies having COVID in the past and states this is first time with the disease. General: Ill appearing, no distress, appears at stated age Derm: warm, dry Head: atraumatic, normocephalic, symmetric Eyes: EOMI, no lid lag, anicteric sclera Mouth: no lip lesion, mucus membranes moist Cardiovascular: S1S2 reg, no murmur, positive posterior tibial pulse bilateral, Lungs: Course bs bilateral, no rhonchi, no rales , no accessory muscle use Abdominal: soft, nontender to palpation, no guarding, no appreciable organomegaly Ext: no gross muscle atrophy, 1+ edema, no contractures Neuro: CN II-XI grossly intact, no focal neuro deficits Psych: lethargic, oriented, appropriate affect Assessment/Plan: Acute exacerbation of CHF, with EF 15-20% Severe aortic stenosis - fluid management with HD - Strict I and O - Daily weights - fluid restriction. - imdur - Cardio recs: Patient with marginal blood pressures, has been unable to tolerate heart failure regimen due to hypotension and bradycardia during dialysis in the past. COVID respiratory tract infection Acute hypoxic respiratory failure-patient had O2 sat in the 70s off of oxygen-- liekly multifactoral Prior tobacco abuse -Start Decadron -Consult pulmonary ESRD on HD - TTS - Nephrology recs, discussed with Dr. Gabriel WHARTON today. - Renveljuan Chronic: Anemia of chronic disease Thrombocytopenia DVT prophylaxis: SCDs Discussed with: patient, nephrology, nursing Anticipated discharge: in 2-[address]: home A total of 65 minutes was spent on the care of this complex patient more than 50% of the time was spent in counseling and care coordination. Objective - Vital Signs Vital signs: Vital Signs Temp 98.2 F 03/12/22 08:00 Pulse 86 03/12/22 08:00 Resp 18 03/12/22 08:00 BP 111/69 03/12/22 08:00 Pulse Ox 95 03/12/22 08:41 FiO2 Intake & Output 03/11/22 03/12/22 03/12/22 18:59 06:59 18:59 Intake Total 550 Balance 550 Weight 71.668 kg 71.668 kg Intake: Oral 550 - Labs CBC & Chem 7: 03/11/22 19:30 03/11/22 19:30 Labs: Abnormal Lab Results - Last 24 Hours (Table) 03/11/22 03/11/22 03/11/22 Range/Units 19:30 19:30 19:30 WBC 3.3 L (3.8-10.6) k/uL RBC 3.42 L (4.30-5.90) m/uL Hgb 11.1 L (13.0-17.5) gm/dL Hct 34.5 L (39.0-53.0) % MCV 101.0 H (80.0-100.0) fL RDW 17.1 H (11.5-15.5) % Plt Count 88 L (150-450) k/uL Lymphocytes # 0.5 L (1.0-4.8) k/uL Potassium 5.4 H (3.5-5.1) mmol/L Chloride 93 L (98-107) mmol/L BUN 64 H (9-20) mg/dL Creatinine 6.47 H (0.66-1.25) mg/dL Plasma Lactic Acid Ryan 3.0 H* (0.7-2.0) mmol/L Calcium 7.7 L (8.4-10.2) mg/dL Alkaline Phosphatase 146 H (38-126) U/L Troponin I (0.000-0.034) ng/mL Coronavirus (PCR) (Not Detectd) 03/11/22 03/12/22 03/12/22 Range/Units 19:30 01:05 11:50 WBC (3.8-10.6) k/uL RBC (4.30-5.90) m/uL Hgb (13.0-17.5) gm/dL Hct (39.0-53.0) % MCV (80.0-100.0) fL RDW (11.5-15.5) % Plt Count (150-450) k/uL Lymphocytes # (1.0-4.8) k/uL Potassium (3.5-5.1) mmol/L Chloride (98-107) mmol/L BUN (9-20) mg/dL Creatinine (0.66-1.25) mg/dL Plasma Lactic Acid Ryan (0.7-2.0) mmol/L Calcium (8.4-10.2) mg/dL Alkaline Phosphatase (38-126) U/L Troponin I 0.410 H* 0.484 H* (0.000-0.034) ng/mL Coronavirus (PCR) Detected A (Not Detectd)
[2022-03-12] MEDS: ATORVASTATIN 10 MG TAB PO SCH (20:39)
[2022-03-12] MEDS: oxyCODONE-APAP 5-325MG 1 EACH TAB PO PRN (22:20)
[2022-03-13] MEDS: SEVELAMER 800 MG TAB PO SCH ×3 (05:56→17:28)
--- NOTE | 2022-03-13 07:29 | CA ---
Transthoracic Echo Report Name: John Benedict Age: 76 Gender: M : 1945 Exam Date: 03/12/2022 13:53 Exam Location: [facility] Ht (in): 69 Wt (lb): 158 Ordering Physician: Grecia Land Attending/Referring Phys: [id number], Shanda Cardiology Teacher Irene Luna RDCS Procedure CPT: Indications: LV function Cardiac Hx: Limited Echo Pt is Covid positive. Technical Quality: Technically difficult study Contrast 1: [place] Total Dose (mL): 3 Contrast 2: Total Dose (mL): MEASUREMENTS (Male / Female) Normal Values 2D ECHO RV Internal Dim ED PLAX 4.5 cm DOPPLER TR Peak Velocity 267.9 cm/s TR Peak Gradient 28.7 mmHg FINDINGS Left Ventricle Left ventricular ejection fraction is estimated at 10-15%. Severely reduced global left ventricular systolic function. Right Ventricle Severe right ventricular dilatation. Right Atrium Left Atrium Mitral Valve Aortic Valve Tricuspid Valve Pulmonic Valve Pericardium Aorta CONCLUSIONS Limited echo. Severe global hypokinesis of the left ventricle Valvular structures were not visualized Previewed by: Dr. Manuel Russo MD (Electronically Signed) Final Date: 13 March 2022 07:28
[2022-03-13] MEDS ORDERED: dexAMETHasone 2 MG TAB PO SCH (09:00)
[2022-03-13 10:23] LABS: Anisocytosis Slight; HCT 33.3 % (39.0-53.0); HGB 10.8 gm/dL (13.0-17.5); Hypochromasia Slight; MCH 32.9 pg (25.0-35.0); MCHC 32.4 g/dL (31.0-37.0); MCV 101.5 fL (80.0-100.0); Macrocytosis Moderate; Mean Platelet Volume 11.9; RBC 3.28 m/uL (4.30-5.90); RDW 17.1 % (11.5-15.5); WBC 2.2 k/uL (3.8-10.6)
[2022-03-13 10:42] LABS: Platelet Count 97 k/uL (150-450)
[2022-03-13 10:48] LABS: Calcium 7.4 mg/dL (8.4-10.2); Magnesium 1.9 mg/dL (1.6-2.3); Potassium 4.6 mmol/L (3.5-5.1)
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
--- NOTE | 2022-03-13 13:22 | P.PN ---
Subjective Progress Note Date: 03/13/22 Patient is a 76 year old male with ESRD (s/p 2 renal transplants 1992 donor ,1995 liver donor) currently on HD left arm fistual on TTS, advanced systolic CHF with LVEF 15-20%, and severe aortic valve stenosis who presented to the ER with worsening shortness of breath. In the ER he outpatient. Chest x- ray didn't demonstrate vascular congestion with pleural effusion. Laboratory analysis was remarkable for white blood cell count 3.3, hemoglobin 11.1, platelets 88, potassium 5.4, lactic acid 3, troponin 0.4. He was given a dose of IV diuresis. Arrangements are made for admission. Cardiology and nephrology were consulted. He did test positive for COVID-19 and pulmonary was consulted. He underwent hemodialysis on 03/12 in 03/13. Pulmonary evaluated the patient and recommended no more steroids as hypoxia likely secondary to CHF and not COVID- 19. Patient seen and examined at bedside. Breathing is still bad, but better than yesterday. No chest pain. No nausea or vomiting. Just feeling weak and "ill". General: Ill appearing, no distress, appears at stated age Derm: warm, dry Head: atraumatic, normocephalic, symmetric Eyes: EOMI, no lid lag, anicteric sclera Mouth: no lip lesion, mucus membranes moist Cardiovascular: S1S2 reg, no murmur, positive posterior tibial pulse bilateral, Lungs: Course bs bilateral, no rhonchi, no rales , no accessory muscle use Abdominal: soft, nontender to palpation, no guarding, no appreciable organomegaly Ext: no gross muscle atrophy, 1+ edema, no contractures Neuro: CN II-XI grossly intact, no focal neuro deficits Psych: lethargic, oriented, appropriate affect Assessment/Plan: Acute exacerbation of CHF, with EF 15-20% Severe aortic stenosis - fluid management with HD done on 03/12 and 03/13, plan again fro 03/14 - Strict I and O - Daily weights - fluid restriction. - imdur - Cardio recs: Patient with marginal blood pressures, has been unable to tolerate heart failure regimen due to hypotension and bradycardia during dialysis in the past. COVID respiratory tract infection Acute hypoxic respiratory failure-patient had O2 sat in the 70s off of oxygen-- likely multifactoral Prior tobacco abuse - pulmonary recommends no decadron as hypoxia likely from CHF and not covid. ESRD on HD - TTS - Nephrology recs: Hd 03/12, 03/13, and 03/14 - [place] Elevated troponin - likely multifactoral and due to CHF in conjunction with renal failure - not consistent with ACS Chronic: Anemia of chronic disease Thrombocytopenia Leukopenia DVT prophylaxis: SCDs Discussed with: patient, nephrology, nursing Anticipated discharge: in 1-[address]: home health A total of 25 minutes was spent on the care of this complex patient more than 50% of the time was spent in counseling and care coordination. Active Medications Generic Name Dose Route Start Last Admin Trade Name Freq PRN Reason Stop Dose Admin Atorvastatin Calcium 10 mg 03/12/22 21:00 03/12/22 20:39 Atorvastatin 10 Mg Tab PO 10 mg HS MONY Administration Bumetanide 2 mg 03/11/22 23:45 03/12/22 20:39 Bumetanide 1 Mg Tab PO 2 mg BID MONY Administration Isosorbide Mononitrate 30 mg 03/12/22 09:00 03/12/22 16:35 Isosorbide Mononitrate Er 30 Mg Tab.Er.24h PO Not Given DAILY MONY Oxycodone/Acetaminophen 1 each 03/11/22 23:43 03/12/22 22:20 Oxycodone-Apap 5-325mg 1 Each Tab PO 1 each BID PRN Administration Pain Paroxetine HCl 10 mg 03/12/22 09:00 03/12/22 09:44 Paroxetine 10 Mg Tab PO 10 mg DAILY MONY Administration Ropinirole HCl 2 mg 03/11/22 23:45 03/12/22 20:39 Ropinirole Hcl 1 Mg Tab PO 2 mg BID MONY Administration Sevelamer Carbonate 1,600 mg 03/12/22 07:30 03/13/22 05:56 Sevelamer 800 Mg Tab PO 1,600 mg TID-W/MEALS MONY Administration Objective - Vital Signs Vital signs: Vital Signs Temp 97.8 F 03/13/22 13:07 Pulse 76 03/13/22 13:07 Resp 19 03/13/22 13:07 BP 122/65 03/13/22 13:07 Pulse Ox 93 L 03/13/22 04:15 FiO2 Intake & Output 03/12/22 03/13/22 03/13/22 18:59 06:59 18:59 Intake Total 300 660 Output Total 2800 2 3000 Balance -2500 -2 -0 Weight 71.668 kg Intake: Oral 360 Hemodialysis 300 300 Output: Urine 2 Hemodialysis 2800 3000 Other: # Voids 1 # Bowel Movements 1 1 - Labs CBC & Chem 7: 03/13/22 08:33 03/13/22 08:33 Labs: Abnormal Lab Results - Last 24 Hours (Table) 03/13/22 03/13/22 Range/Units 08:33 08:33 WBC 2.2 L (3.8-10.6) k/uL RBC 3.28 L (4.30-5.90) m/uL Hgb 10.8 L (13.0-17.5) gm/dL Hct 33.3 L (39.0-53.0) % MCV 101.5 H (80.0-100.0) fL RDW 17.1 H (11.5-15.5) % Plt Count 97 L (150-450) k/uL Chloride 94 L (98-107) mmol/L BUN 62 H (9-20) mg/dL Creatinine 6.09 H (0.66-1.25) mg/dL Glucose 128 H (74-99) mg/dL Calcium 7.4 L (8.4-10.2) mg/dL
[2022-03-13] MEDS: BUMETANIDE 1 MG TAB PO SCH ×2 (14:01→20:03)
[2022-03-13] MEDS: ISOSORBIDE MONONITRATE ER 30 MG TAB.ER.24H PO SCH (14:01)
[2022-03-13] MEDS: PARoxetine 10 MG TAB PO SCH (14:02)
--- NOTE | 2022-03-13 16:46 | P.PN ---
Subjective Patient is seen for follow-up for end-stage renal disease. He was admitted to the hospital with shortness of breath and volume overload. Patient also tested positive for COVID-19 PCR. Status post hemodialysis yesterday with UF of 2.8 L. Patient tolerated his treatment well. He will be scheduled for hemodialysis again today due to fluid overload. Objective - Vital Signs Vital signs: Vital Signs Temp 97.8 F 03/13/22 13:07 Pulse 76 03/13/22 14:00 Resp 19 03/13/22 14:00 BP 122/65 03/13/22 13:07 Pulse Ox 93 L 03/13/22 04:15 FiO2 Intake & Output 03/12/22 03/13/22 03/13/22 18:59 06:59 18:59 Intake Total 300 900 Output Total 2800 2 3000 Balance -2500 -2 -2100 Weight 71.668 kg Intake: Oral 600 Hemodialysis 300 300 Output: Urine 2 Hemodialysis 2800 3000 Other: # Voids 1 # Bowel Movements 1 1 - Exam Patient is awake, comfortable not in any acute distress Examination of the heart S1 and S2 Examination of the lungs bilateral breath sounds are heard Abdomen is soft nontender Examination of lower extremities shows edema 1+ bilaterally with chronic skin changes [employer] exam grossly intact - Labs CBC & Chem 7: 03/13/22 08:33 03/13/22 08:33 Labs: Abnormal Lab Results - Last 24 Hours (Table) 03/13/22 03/13/22 Range/Units 08:33 08:33 WBC 2.2 L (3.8-10.6) k/uL RBC 3.28 L (4.30-5.90) m/uL Hgb 10.8 L (13.0-17.5) gm/dL Hct 33.3 L (39.0-53.0) % MCV 101.5 H (80.0-100.0) fL RDW 17.1 H (11.5-15.5) % Plt Count 97 L (150-450) k/uL Chloride 94 L (98-107) mmol/L BUN 62 H (9-20) mg/dL Creatinine 6.09 H (0.66-1.25) mg/dL Glucose 128 H (74-99) mg/dL Calcium 7.4 L (8.4-10.2) mg/dL Assessment and Plan Assessment: 1. End-stage renal disease on hemodialysis on a Friday schedule via left arm AV fistula 2. Volume overload 3. Positive COVID-19 PCR with chest x-ray showing evidence of pulmonary vascular congestion 4. 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 History of 2 prior renal transplant with the first one in 1992 which was a donor allograft and the second one in 1995 from his knees which lasted for 25 years. Patient was restarted on hemodialysis in May 2021 Plan: Hemodialysis today with increase UF as tolerated. Will repeat hemodialysis in am Check chest x-ray post dialysis
--- NOTE | 2022-03-13 18:31 | XR ---
EXAMINATION TYPE: XR chest 1V DATE OF EXAM: 03/13/2022 5:19 PM COMPARISON: Chest radiographs from 03/11/2022 TECHNIQUE: XR chest 1V Portable AP radiograph of the chest. CLINICAL INDICATION:Male, 76 years old with history of chf; FINDINGS: Lungs/Pleura: There is no evidence of pleural effusion, focal consolidation, or pneumothorax. Pulmonary vascularity: Mild pulmonary vascular congestion. Heart/mediastinum: Cardiomediastinal silhouette is enlarged and stable. Musculoskeletal: No acute osseous pathology. IMPRESSION: Cardiomegaly and mild pulmonary vascular congestion. Correlate with BNP for congestive heart failure.
[2022-03-13] MEDS: ATORVASTATIN 10 MG TAB PO SCH (20:03)
[2022-03-14] MEDS: SEVELAMER 800 MG TAB PO SCH ×3 (06:05→18:43)
--- NOTE | 2022-03-14 08:09 | PN ---
PROGRESS NOTE SUBJECTIVE: Mr. Harkins is a 76-year-old gentleman who has been admitted to the hospital with multiple medical problems. He has end-stage renal disease and came in with a volume overloaded picture. His troponin elevation was the issue, but this troponin elevation does not suggest myocardial injury. I am recommending that we can continue dialysis and he can be discharged when okay with the admitting doctor. No further intervention necessary upon discharge. He should follow up with Dr. Phillips in about 2-3 weeks. OBJECTIVE: VITAL SIGNS: Stable. HEART: S1-S2 are normal, short systolic murmur noted. LUNGS: Reveal diminished air entry. ABDOMEN: Exam unchanged. LOWER EXTREMITIES: Exam unchanged. Dialysis is in progress. MMODL / IJN: [id number] /
[2022-03-14 08:58] LABS: Anisocytosis Slight; HCT 34.6 % (39.0-53.0); HGB 11.2 gm/dL (13.0-17.5); MCH 31.9 pg (25.0-35.0); MCHC 32.3 g/dL (31.0-37.0); MCV 98.8 fL (80.0-100.0); Macrocytosis Slight; Mean Platelet Volume 12.4; RDW 17.2 % (11.5-15.5); WBC 3.7 k/uL (3.8-10.6)
[2022-03-14 09:12] LABS: Calcium 7.9 mg/dL (8.4-10.2)
[2022-03-14 10:21] LABS: Platelet Count 73 k/uL (150-450)
--- NOTE | 2022-03-14 10:59 | P.PN ---
Subjective Progress Note Date: 03/14/22 CHIEF COMPLAINT: Elevated troponins HISTORY OF PRESENT ILLNESS: This is a 76-year-old male with a past medical history significant for end-stage renal disease on hemodialysis with previous kidney transplant 2, cardiomyopathy with an ejection fraction of 20%, aortic stenosis, and hyperlipidemia. Patient follows in the office with Dr. Phillips. We have been asked to see the patient in consultation for abnormal troponins. Patient presented to the hospital with a chief complaint of shortness of breath. Patient denies any chest pain or pressure. Patient's vital signs are stable. Blood pressure 111/69. * EKG reveals sinus tachycardia with no signs of acute ischemia. Nonspecific ST-T wave changes.. Left axis deviation. LVH. * Chest xray right sided pleural effusion * Laboratory data: WBC 3.3. Hemoglobin 11.1. Platelet count 88. Sodium 138. Potassium 5.4. BUN 64. Creatinine 6.47. Lactic acid 3.0. Troponin 0.410. ProBNP 102,000. * Current home cardiac medications include Imdur 30 mg daily, Lipitor 10 mg at night, and Bumex 2 mg twice a day * Most recent echocardiogram obtained in January 2022 revealed ejection fraction 15-20%. 03/14/2022 Patient examined this morning. Patient is sitting up in the chair. He denies chest pain or shortness of breath. Per nursing, he is scheduled for hemodialysis today. Vital signs are stable. Echo reveals EF 10-15% PHYSICAL EXAM: Thorough physical exam not completed secondary to limited evaluation/examination due to Covid19 ASSESSMENT: Acute Covid 19 End-stage renal disease on hemodialysis Fluid overload, secondary to above Abnormal troponin, no evidence of acute coronary syndrome, likely secondary to end-stage renal disease History of renal transplant 2 Severe cardiomyopathy, etiology unclear Valvular heart disease PLAN: Continue current cardiac medications Patient with soft blood pressures and has been unable to tolerate heart failure regimen medications in the past due to hypotension and bradycardia during dialysis. We will continue to monitor vital signs and add medications as patient can tolerate Further recommendations pending patient's course Nurse practitioner note has been reviewed by physician. Signing provider agrees with the documented findings, assessment, and plan of care. Objective - Vital Signs Vital signs: Vital Signs Temp 97.6 F 03/13/22 20:05 Pulse 78 03/14/22 03:55 Resp 17 03/14/22 03:55 BP 108/67 03/14/22 03:55 Pulse Ox 100 03/14/22 03:55 FiO2 Intake & Output 03/13/22 03/14/22 03/14/22 18:59 06:59 18:59 Intake Total 1260 358 Output Total 3000 1 Balance -1740 -1 358 Intake: Oral 960 358 Hemodialysis 300 Output: Urine 1 Hemodialysis 3000 Other: # Voids 1 - Labs CBC & Chem 7: 03/14/22 08:16 03/14/22 08:16 Labs: Abnormal Lab Results - Last 24 Hours (Table) 03/14/22 03/14/22 Range/Units 08:16 08:16 WBC 3.7 L (3.8-10.6) k/uL RBC 3.50 L (4.30-5.90) m/uL Hgb 11.2 L (13.0-17.5) gm/dL Hct 34.6 L (39.0-53.0) % RDW 17.2 H (11.5-15.5) % Plt Count 73 L (150-450) k/uL Sodium 136 L (137-145) mmol/L Chloride 95 L (98-107) mmol/L Carbon Dioxide 21 L (22-30) mmol/L BUN 53 H (9-20) mg/dL Creatinine 5.21 H (0.66-1.25) mg/dL Calcium 7.9 L (8.4-10.2) mg/dL
--- NOTE | 2022-03-14 11:45 | P.PN ---
Subjective Patient is seen for follow-up for end-stage renal disease. He was admitted to the hospital with shortness of breath and volume overload. Patient also tested positive for COVID-19 PCR. Status post hemodialysis yesterday with UF of 3 L. Patient tolerated his treatment well. He will be scheduled for hemodialysis again today due to fluid overload. Objective - Vital Signs Vital signs: Vital Signs Temp 97.6 F 03/13/22 20:05 Pulse 78 03/14/22 03:55 Resp 17 03/14/22 03:55 BP 108/67 03/14/22 03:55 Pulse Ox 100 03/14/22 03:55 FiO2 Intake & Output 03/13/22 03/14/22 03/14/22 18:59 06:59 18:59 Intake Total 1260 358 Output Total 3000 1 Balance -1740 -1 358 Intake: Oral 960 358 Hemodialysis 300 Output: Urine 1 Hemodialysis 3000 Other: # Voids 1 - Exam Patient is awake, comfortable not in any acute distress Examination of the heart S1 and S2 Examination of the lungs bilateral breath sounds are heard Abdomen is soft nontender Examination of lower extremities shows edema 1+ bilaterally with chronic skin changes [employer] exam grossly intact - Labs CBC & Chem 7: 03/14/22 08:16 03/14/22 08:16 Labs: Abnormal Lab Results - Last 24 Hours (Table) 03/14/22 03/14/22 Range/Units 08:16 08:16 WBC 3.7 L (3.8-10.6) k/uL RBC 3.50 L (4.30-5.90) m/uL Hgb 11.2 L (13.0-17.5) gm/dL Hct 34.6 L (39.0-53.0) % RDW 17.2 H (11.5-15.5) % Plt Count 73 L (150-450) k/uL Sodium 136 L (137-145) mmol/L Chloride 95 L (98-107) mmol/L Carbon Dioxide 21 L (22-30) mmol/L BUN 53 H (9-20) mg/dL Creatinine 5.21 H (0.66-1.25) mg/dL Calcium 7.9 L (8.4-10.2) mg/dL Assessment and Plan Assessment: 1. End-stage renal disease on hemodialysis on a Friday schedule via left arm AV fistula 2. Volume overload, improving with increase ultrafiltration 3. Positive COVID-19 PCR with chest x-ray showing evidence of pulmonary vascular congestion 4. 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 History of 2 prior renal transplant with the first one in 1992 which was a donor allograft and the second one in 1995 from his knees which lasted for 25 years. Patient was restarted on hemodialysis in May 2021 Plan: Continue with daily treatments for now for increased ultrafiltration. Repeat chest x-ray after 2 treatments of hemodialysis continues to show pulmonary vascular congestion.
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
--- NOTE | 2022-03-14 14:00 | P.PN ---
Subjective Progress Note Date: 03/14/22 Patient is getting better, but still having difficulty breathing today. Still has oxygen requirement. Gen: awake, alert HEENT: normocephalic, atraumatic, good hearing acuity, moist mucous membranes Resp: good air exchange, breathing comfortably with no accessory muscle use CVS: good distal perfusion x 4, GI: soft, NTTP, ND : no SPT, no CVAT, redmond catheter not present MSK: no pitting edema, no clubbing Neuro: non-focal, moving all extremities Psych: cooperative, euthymic mood Assessment/plan: Acute exacerbation of CHF, with EF 15-20% Severe aortic stenosis - fluid management with HD done on 03/12 and 03/13, plan again for 03/14 - Strict I and O - Daily weights - fluid restriction. - imdur - Cardio recs: Patient with marginal blood pressures, has been unable to tolerate heart failure regimen due to hypotension and bradycardia during dialysis in the past. COVID respiratory tract infection Acute hypoxic respiratory failure-patient had O2 sat in the 70s off of oxygen-- likely multifactoral Prior tobacco abuse - pulmonary recommends no decadron as hypoxia likely from CHF and not covid. ESRD on HD - TTS - Nephrology recs: Hd 03/12, 03/13, and 03/14 - [place] Elevated troponin - likely multifactoral and due to CHF in conjunction with renal failure - not consistent with ACS Chronic: Anemia of chronic disease Thrombocytopenia Leukopenia DVT prophylaxis: SCDs Anticipated discharge: in 1-[address]: home health Objective - Vital Signs Vital signs: Vital Signs Temp 97.4 F L 03/14/22 12:00 Pulse 74 03/14/22 12:00 Resp 16 03/14/22 12:00 BP 100/62 03/14/22 12:00 Pulse Ox 99 03/14/22 12:00 FiO2 Intake & Output 03/13/22 03/14/22 03/14/22 18:59 06:59 18:59 Intake Total 1260 358 Output Total 3000 1 Balance -1740 -1 358 Intake: Oral 960 358 Hemodialysis 300 Output: Urine 1 Hemodialysis 3000 Other: # Voids 1 - Labs CBC & Chem 7: 03/14/22 08:16 03/14/22 08:16 Labs: Abnormal Lab Results - Last 24 Hours (Table) 03/14/22 03/14/22 Range/Units 08:16 08:16 WBC 3.7 L (3.8-10.6) k/uL RBC 3.50 L (4.30-5.90) m/uL Hgb 11.2 L (13.0-17.5) gm/dL Hct 34.6 L (39.0-53.0) % RDW 17.2 H (11.5-15.5) % Plt Count 73 L (150-450) k/uL Sodium 136 L (137-145) mmol/L Chloride 95 L (98-107) mmol/L Carbon Dioxide 21 L (22-30) mmol/L BUN 53 H (9-20) mg/dL Creatinine 5.21 H (0.66-1.25) mg/dL Calcium 7.9 L (8.4-10.2) mg/dL
[2022-03-14] MEDS: ISOSORBIDE MONONITRATE ER 30 MG TAB.ER.24H PO SCH (19:22)
[2022-03-14] MEDS: PARoxetine 10 MG TAB PO SCH (19:22)
[2022-03-14] MEDS: BUMETANIDE 1 MG TAB PO SCH ×2 (19:22→20:08)
[2022-03-14] MEDS: ATORVASTATIN 10 MG TAB PO SCH (20:08)
[2022-03-15] MEDS: SEVELAMER 800 MG TAB PO SCH ×3 (06:21→18:16)
[2022-03-15 08:03] LABS: Anisocytosis Slight; HCT 35.2 % (39.0-53.0); HGB 10.9 gm/dL (13.0-17.5); Hypochromasia Slight; MCV 100.2 fL (80.0-100.0); Macrocytosis Slight; Mean Platelet Volume 13.3; Platelet Count 80 k/uL (150-450); RBC 3.51 m/uL (4.30-5.90); WBC 3.1 k/uL (3.8-10.6)
[2022-03-15 08:05] LABS: Calcium 7.9 mg/dL (8.4-10.2); Magnesium 1.8 mg/dL (1.6-2.3); Potassium 3.9 mmol/L (3.5-5.1)
[2022-03-15] MEDS ORDERED: LOSARTAN 25 MG TAB PO SCH ×2 (09:15→21:00)
[2022-03-15 10:13] LABS: Lymphocytes # (M) 0.47 k/uL (1.0-4.8); Monocytes # (M) 0.34 k/uL (0-1.0); Neutrophils # (M) 2.29 k/uL (1.3-7.7); Neutrophils % (M) 74 %; Nucleated Red Blood Cells 0 /100 WBC (0-0); Total Cells Counted 100
[2022-03-15 10:14] LABS: Large Platelets Present
[2022-03-15 10:15] LABS: Poikilocytosis (M) Present
[2022-03-15] MEDS: ISOSORBIDE MONONITRATE ER 30 MG TAB.ER.24H PO SCH (10:32)
[2022-03-15] MEDS: METOPROLOL TARTRATE 12.5 MG TAB PO SCH (10:32)
[2022-03-15] MEDS: PARoxetine 10 MG TAB PO SCH (10:33)
[2022-03-15] MEDS: BUMETANIDE 1 MG TAB PO SCH ×2 (10:33→20:10)
--- NOTE | 2022-03-15 11:22 | P.PN ---
Subjective Progress Note Date: 03/15/22 CHIEF COMPLAINT: Elevated troponins HISTORY OF PRESENT ILLNESS: This is a 76-year-old male with a past medical history significant for end-stage renal disease on hemodialysis with previous kidney transplant 2, cardiomyopathy with an ejection fraction of 20%, aortic stenosis, and hyperlipidemia. Patient follows in the office with Dr. Phillips. We have been asked to see the patient in consultation for abnormal troponins. Patient presented to the hospital with a chief complaint of shortness of breath. Patient denies any chest pain or pressure. Patient's vital signs are stable. Blood pressure 111/69. * EKG reveals sinus tachycardia with no signs of acute ischemia. Nonspecific ST-T wave changes.. Left axis deviation. LVH. * Chest xray right sided pleural effusion * Laboratory data: WBC 3.3. Hemoglobin 11.1. Platelet count 88. Sodium 138. Potassium 5.4. BUN 64. Creatinine 6.47. Lactic acid 3.0. Troponin 0.410. ProBNP 102,000. * Current home cardiac medications include Imdur 30 mg daily, Lipitor 10 mg at night, and Bumex 2 mg twice a day * Most recent echocardiogram obtained in January 2022 revealed ejection fraction 15-20%. 03/14/2022 Patient examined this morning. Patient is sitting up in the chair. He denies chest pain or shortness of breath. Per nursing, he is scheduled for hemodialysis today. Vital signs are stable. Echo reveals EF 10-15% 03/15/2022 Patient examined this morning sitting up in the chair. Patient denies chest pain or pressure. He denies shortness of breath. Vital signs are stable. PHYSICAL EXAM: Thorough physical exam not completed secondary to limited evaluation/examination due to Covid19 ASSESSMENT: Acute Covid 19 End-stage renal disease on hemodialysis Fluid overload, secondary to above Abnormal troponin, no evidence of acute coronary syndrome, likely secondary to end-stage renal disease History of renal transplant 2 Severe cardiomyopathy, etiology unclear Valvular heart disease PLAN: Continue current cardiac medications Patient with soft blood pressures and has been unable to tolerate heart failure regimen medications in the past due to hypotension and bradycardia during dialysis. We will add low dose losartan 12.5 mg at night and metoprolol tartrate 12.5 mg daily. Continue to monitor blood pressure We will sign off. Please reconsult if needed Nurse practitioner note has been reviewed by physician. Signing provider agrees with the documented findings, assessment, and plan of care. Objective - Vital Signs Vital signs: Vital Signs Temp 97.9 F 03/15/22 10:37 Pulse 75 03/15/22 10:38 Resp 18 03/15/22 10:38 BP 103/58 03/15/22 10:37 Pulse Ox 100 03/15/22 10:37 FiO2 Intake & Output 03/14/22 03/15/22 03/15/22 18:59 06:59 18:59 Intake Total 476 300 118 Output Total 3300 Balance 476 -3000 118 Weight 84 kg Intake: Oral 476 118 Hemodialysis 300 Output: Hemodialysis 3300 Other: # Voids 1 1 - Labs CBC & Chem 7: 03/15/22 07:32 03/15/22 07:32 Labs: Abnormal Lab Results - Last 24 Hours (Table) 03/15/22 03/15/22 Range/Units 07:32 07:32 WBC 3.1 L (3.8-10.6) k/uL RBC 3.51 L (4.30-5.90) m/uL Hgb 10.9 L (13.0-17.5) gm/dL Hct 35.2 L (39.0-53.0) % MCV 100.2 H (80.0-100.0) fL RDW 17.0 H (11.5-15.5) % Plt Count 80 L (150-450) k/uL Lymphocytes # (Manual) 0.47 L (1.0-4.8) k/uL BUN 36 H (9-20) mg/dL Creatinine 4.33 H (0.66-1.25) mg/dL Calcium 7.9 L (8.4-10.2) mg/dL
--- NOTE | 2022-03-15 11:25 | P.PN ---
Subjective Patient is seen for follow-up for end-stage renal disease. He was admitted to the hospital with shortness of breath and volume overload. Patient also tested positive for COVID-19 PCR. Patient has being dialyzed daily for the last 3 days with total UF of about 9 L. He states he is feeling better No complaints of nausea vomiting abdominal pain or diarrhea. Objective - Vital Signs Vital signs: Vital Signs Temp 97.9 F 03/15/22 10:37 Pulse 75 03/15/22 10:38 Resp 18 03/15/22 10:38 BP 103/58 03/15/22 10:37 Pulse Ox 100 03/15/22 10:37 FiO2 Intake & Output 03/14/22 03/15/22 03/15/22 18:59 06:59 18:59 Intake Total 476 300 118 Output Total 3300 Balance 476 -3000 118 Weight 84 kg Intake: Oral 476 118 Hemodialysis 300 Output: Hemodialysis 3300 Other: # Voids 1 1 - Exam Patient is awake, comfortable not in any acute distress Examination of the heart S1 and S2 Examination of the lungs bilateral breath sounds are heard Abdomen is soft nontender Examination of lower extremities shows edema 1+ bilaterally with chronic skin changes BIOMED TECH exam grossly intact - Labs CBC & Chem 7: 03/15/22 07:32 03/15/22 07:32 Labs: Abnormal Lab Results - Last 24 Hours (Table) 03/15/22 03/15/22 Range/Units 07:32 07:32 WBC 3.1 L (3.8-10.6) k/uL RBC 3.51 L (4.30-5.90) m/uL Hgb 10.9 L (13.0-17.5) gm/dL Hct 35.2 L (39.0-53.0) % MCV 100.2 H (80.0-100.0) fL RDW 17.0 H (11.5-15.5) % Plt Count 80 L (150-450) k/uL Lymphocytes # (Manual) 0.47 L (1.0-4.8) k/uL BUN 36 H (9-20) mg/dL Creatinine 4.33 H (0.66-1.25) mg/dL Calcium 7.9 L (8.4-10.2) mg/dL Assessment and Plan Assessment: 1. End-stage renal disease on hemodialysis on a Friday schedule via left arm AV fistula 2. Volume overload, improving with increase ultrafiltration 3. Positive COVID-19 PCR with chest x-ray showing evidence of pulmonary vascular congestion 4. 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 History of 2 prior renal transplant with the first one in 1992 which was a donor allograft and the second one in 1995 from his knees which lasted for 25 years. Patient was restarted on hemodialysis in May 2021 Plan: Hemodialysis today and then again in a.m.
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
--- NOTE | 2022-03-15 13:24 | P.PN ---
Subjective Progress Note Date: 03/15/22 Patient is getting better with dialysis. Plan is for discharge tomorrow, dialysis session today. Pt will undergo 6MWT to determine home oxygen need. Gen: awake, alert HEENT: normocephalic, atraumatic, good hearing acuity, moist mucous membranes Resp: good air exchange, breathing comfortably with no accessory muscle use CVS: good distal perfusion x 4, GI: soft, NTTP, ND : no SPT, no CVAT, redmond catheter not present MSK: no pitting edema, no clubbing Neuro: non-focal, moving all extremities Psych: cooperative, euthymic mood Assessment/plan: Acute exacerbation of CHF, with EF 15-20% Severe aortic stenosis - fluid management with HD done on 03/12 and 03/13, plan again for 03/14 - Strict I and O - Daily weights - fluid restriction. - imdur - Cardio recs: Patient with marginal blood pressures, has been unable to tolerate heart failure regimen due to hypotension and bradycardia during dialys is in the past. COVID respiratory tract infection Acute hypoxic respiratory failure-patient had O2 sat in the 70s off of oxygen-- likely multifactoral Prior tobacco abuse - pulmonary recommends no decadron as hypoxia likely from CHF and not covid. ESRD on HD - TTS - Nephrology recs: Hd 03/12, 03/13, and 03/14 - Renvela Elevated troponin - likely multifactoral and due to CHF in conjunction with renal failure - not consistent with ACS Chronic: Anemia of chronic disease Thrombocytopenia Leukopenia DVT prophylaxis: SCDs Anticipated discharge: in 1-[address]: home health Objective - Vital Signs Vital signs: Vital Signs Temp 97.9 F 03/15/22 10:37 Pulse 75 03/15/22 10:38 Resp 18 03/15/22 10:38 BP 103/58 03/15/22 10:37 Pulse Ox 100 03/15/22 10:37 FiO2 Intake & Output 03/14/22 03/15/22 03/15/22 18:59 06:59 18:59 Intake Total 476 300 118 Output Total 3300 Balance 476 -3000 118 Weight 84 kg Intake: Oral 476 118 Hemodialysis 300 Output: Hemodialysis 3300 Other: # Voids 1 1 - Labs CBC & Chem 7: 03/15/22 07:32 03/15/22 07:32 Labs: Abnormal Lab Results - Last 24 Hours (Table) 03/15/22 03/15/22 Range/Units 07:32 07:32 WBC 3.1 L (3.8-10.6) k/uL RBC 3.51 L (4.30-5.90) m/uL Hgb 10.9 L (13.0-17.5) gm/dL Hct 35.2 L (39.0-53.0) % MCV 100.2 H (80.0-100.0) fL RDW 17.0 H (11.5-15.5) % Plt Count 80 L (150-450) k/uL Lymphocytes # (Manual) 0.47 L (1.0-4.8) k/uL BUN 36 H (9-20) mg/dL Creatinine 4.33 H (0.66-1.25) mg/dL Calcium 7.9 L (8.4-10.2) mg/dL
[2022-03-15] MEDS: ATORVASTATIN 10 MG TAB PO SCH (20:09)
[2022-03-15] MEDS: oxyCODONE-APAP 5-325MG 1 EACH TAB PO PRN (20:10)
[2022-03-16 03:40] VITALS: RESP 18
[2022-03-16] MEDS: SEVELAMER 800 MG TAB PO SCH ×3 (06:25→19:11)
[2022-03-16] MEDS: BUMETANIDE 1 MG TAB PO SCH (09:51)
[2022-03-16] MEDS: PARoxetine 10 MG TAB PO SCH (09:52)
[2022-03-16] MEDS: METOPROLOL TARTRATE 12.5 MG TAB PO SCH (09:52)
[2022-03-16] MEDS: ISOSORBIDE MONONITRATE ER 30 MG TAB.ER.24H PO SCH (09:52)
--- NOTE | 2022-03-16 10:59 | P.DS ---
Providers Date of admission: 03/11/22 20:42 Expected date of discharge: 03/16/22 Attending physician: Clare Nelson MD Consults: 03/11/22 20:40 Consult Physician Routine Consulting Provider: Gloria Rios Consult Reason/Comments: Chronic renal failure Do you want consulting provider notified?: Yes 03/12/22 12:03 Consult Physician Routine Consulting Provider: Gonzalo Gandhi Consult Reason/Comments: COVID and Hypoxia, AE CHF Do you want consulting provider notified?: Yes Primary care physician: Stated None Hospital Course: Acute exacerbation of CHF, with EF 15-20% Severe aortic stenosis COVID respiratory tract infection Acute hypoxic respiratory failure-patient had O2 sat in the 70s off of oxygen-- likely multifactoral Prior tobacco abuse ESRD on HD Elevated troponin Anemia of chronic disease Thrombocytopenia Leukopenia Patient is a 76 year old male with ESRD (s/p 2 renal transplants 1992 donor ,1995 liver donor) currently on HD left arm fistual on TTS, advanced systolic CHF with LVEF 15-20%, and severe aortic valve stenosis who presented to the ER with worsening shortness of breath. In the ER he outpatient. Chest x- ray didn't demonstrate vascular congestion with pleural effusion. Laboratory analysis was remarkable for white blood cell count 3.3, hemoglobin 11.1, platelets 88, potassium 5.4, lactic acid 3, troponin 0.4. He was given a dose of IV diuresis. Arrangements are made for admission. Cardiology and nephrology were consulted. He did test positive for COVID-19 and pulmonary was consulted. He underwent hemodialysis on 03/12 in 03/13. Pulmonary evaluated the patient and recommended no more steroids as hypoxia likely secondary to CHF and not COVID- 19. Patient's dyspnea improved with multiple sessions of dialysis. However, on day of discharge she was still requiring oxygen at rest. Therefore, he was discharged with home oxygen with plans to follow-up with pulmonology as well as nephrology. Patient will also follow-up with primary care physician. I spent 40 minutes coordinating this complex discharge, discharge date 03/16. Gen: awake, alert HEENT: normocephalic, atraumatic, good hearing acuity, moist mucous membranes Resp: good air exchange, breathing comfortably with no accessory muscle use CVS: good distal perfusion x 4, GI: soft, NTTP, ND : no SPT, no CVAT, redmond catheter not present MSK: no pitting edema, no clubbing Neuro: non-focal, moving all extremities Psych: cooperative, euthymic mood Patient Condition at Discharge: Fair Plan - Discharge Summary Discharge Rx Participant: No New Discharge Prescriptions: New Metoprolol Tartrate [Lopressor] 12.5 mg PO DAILY #30 tab Losartan [Cozaar] 12.5 mg PO HS #15 tab Continue Ondansetron [Zofran] 4 mg PO DAILY PRN PRN Reason: Nausea Atorvastatin [Lipitor] 10 mg PO HS oxyCODONE-APAP 5-325MG [Percocet 5-325 mg] 1 tab PO BID PRN PRN Reason: Pain Cholecalciferol [Vitamin D3 (25 Mcg = 1000 Iu)] 25 mcg PO DAILY rOPINIRole HCL [Requip] 2 mg PO BID Bumetanide [BUMEX] 2 mg PO BID Magnesium Oxide [Mag-Ox] 400 mg PO DAILY PARoxetine [Paxil] 10 mg PO DAILY Sevelamer Carbonate 1,600 mg PO TID-W/MEALS [place]-3/Dha/Epa/Fish Oil [Fish Oil 1,000 mg Softgel] 1 cap PO DAILY Isosorbide Mononitrate ER [Imdur] 30 mg PO DAILY Discharge Medication List Atorvastatin [Lipitor] 10 mg PO HS 01/29/22 [History] Cholecalciferol [Vitamin D3 (25 Mcg = 1000 Iu)] 25 mcg PO DAILY 01/29/22 [History] [place]-3/Dha/Epa/Fish Oil [Fish Oil 1,000 mg Softgel] 1 cap PO DAILY 01/29/22 [History] Ondansetron [Zofran] 4 mg PO DAILY PRN 01/29/22 [History] Sevelamer Carbonate 1,600 mg PO TID-W/MEALS 01/29/22 [History] oxyCODONE-APAP 5-325MG [Percocet 5-325 mg] 1 tab PO BID PRN 01/29/22 [History] rOPINIRole HCL [Requip] 2 mg PO BID 01/29/22 [History] Bumetanide [BUMEX] 2 mg PO BID 01/30/22 [History] Isosorbide Mononitrate ER [Imdur] 30 mg PO DAILY 01/30/22 [History] Magnesium Oxide [Mag-Ox] 400 mg PO DAILY 01/30/22 [History] PARoxetine [Paxil] 10 mg PO DAILY 01/30/22 [History] Losartan [Cozaar] 12.5 mg PO HS #15 tab 03/16/22 [Rx] Metoprolol Tartrate [Lopressor] 12.5 mg PO DAILY #30 tab 03/16/22 [Rx] Follow up Appointment(s)/Referral(s): [facility] [NON-STAFF] - 03/18/22 4:40 am (You will have dialysis on MWF at 4:40PM for the 2 weeks after your COVID Diagnosis.) None,Stated [Primary Care Provider] - 1-2 days [facility] [NON-[facility]] - Discharge Disposition: HOME WITH HOME HEALTH SERVICES
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
[2022-03-16 12:52] VITALS: TEMP 97.6
--- NOTE | 2022-03-16 14:11 | P.PN ---
Subjective Progress Note Date: 03/16/22 Follow-up for ESRD. Objective - Vital Signs Vital signs: Vital Signs Temp 97.6 F 03/16/22 12:50 Pulse 78 03/16/22 12:50 Resp 18 03/16/22 12:50 BP 108/67 03/16/22 12:50 Pulse Ox 100 03/16/22 12:50 FiO2 Intake & Output 03/15/22 03/16/22 03/16/22 18:59 06:59 18:59 Intake Total 736 120 354 Output Total 2500 0 354 Balance -1764 120 0 Intake: Oral 736 120 354 Output: Urine 0 354 Hemodialysis 2500 Other: # Voids 1 - Exam No acute distress S1-S2 heard Lungs clear No edema - Labs CBC & Chem 7: 03/15/22 07:32 03/15/22 07:32 Assessment and Plan Assessment: #1 ESRD on hemodialysis. 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 Next treatment on Friday. #2 supportive care
[2022-03-16 18:16] VITALS: BP 118/71; PULSE 71
--- NOTE | 2022-03-21 07:36 | CDI ---
Documentation Clarification Form Date: 03/21/22 From: Ros Botello Admit Date: 03/11/2022 08:42:00 PM Patient Name: John Benedict Visit Number: [id number] Discharge Date: 03/16/2022 06:47:00 PM ATTENTION: The Clinical Documentation Specialists (CDI) and [facility] Coding Staff appreciate your assistance in clarifying documentation. Please respond to the clarification below the line at the bottom and electronically sign. The CDI & [facility] Coding staff will review the response and follow-up if needed. Please note: Queries are made part of the Legal Health Record. If you have any questions, please contact the author of this message via ITS. Dr. Mk Jackson, Your patient has leukopenia, thrombocytopenia, and anemia in CKD. Based on this information and the findings below, is there an additional diagnosis that is clinically appropriate for this patient? Patient history/risk factors: s/p 2 kidney transplants, ESRD, acute on chronic systolic CHF, COVID 19, aortic stenosis, dialysis, former smoker Clinical Indicators: WBC 3.3, HGB 11.1, HCT 34.5, PLT CT 88, Neutrophils 68, Treatment: monitor for bleeding, monitor with labs Is there an additional diagnosis that is clinically appropriate for this patient? [ ] Pancytopenia due to other, please specify [x] Anemia, in CKD [ ] Thrombocytopenia, please specify etiology [ ] Other, please specify [ ] Unable to determine MTDD
== END 2022-03-16 18:47 | disposition home health service (06) | DRG 291 ==
LOC: EC 19:07 → 3SCARD 20:42
PROVIDERS: ADMIT Internal Medicine; ATTEND Internal Medicine
PROC: 5A1D70Z Performance of Urinary Filtration, Intermittent, Less than 6 Hours Per Day (ICD-10-PCS; principal; 2022-03-12)
DX: I50.23 Acute on chronic systolic (congestive) heart failure (principal); J96.01 Acute respiratory failure with hypoxia; U07.1 COVID-19; N18.6 End stage renal disease; E87.20 Acidosis, unspecified; I42.9 Cardiomyopathy, unspecified; Z94.0 Kidney transplant status; I95.9 Hypotension, unspecified; D69.6 Thrombocytopenia, unspecified; D63.1 Anemia in chronic kidney disease; E83.9 Disorder of mineral metabolism, unspecified; Z99.2 Dependence on renal dialysis; I08.2 Rheumatic disorders of both aortic and tricuspid valves; R00.1 Bradycardia, unspecified; E78.5 Hyperlipidemia, unspecified; R77.8 Other specified abnormalities of plasma proteins; Z79.899 Other long term (current) drug therapy; Z87.891 Personal history of nicotine dependence; Z88.8 Allergy status to other drugs, medicaments and biological substances
CPT/HCPCS: 36415; 71045; 71046; 80048; 80053; 83605; 83735; 83880; 84484; 85025; 85027; 85610; 85730; 87635; 90935; 93005; 93308; 94760; 96365; 96366; 99285

== ENCOUNTER → 2022-04-12 | Outpatient (CLI) | payer MEDICARE, OTHER ==
--- NOTE | 2022-04-12 10:29 | XR ---
EXAMINATION TYPE: XR foot complete LT DATE OF EXAM: 04/12/2022 CLINICAL HISTORY: L03.031 CELLULITIS OF LEFT TOE TECHNIQUE: Frontal, lateral and oblique images of the left foot are obtained. COMPARISON: None. FINDINGS: There is no acute fracture/dislocation evident. The joint spaces appear within normal mantilla its. Mild soft tissue swelling left second toe. No bony destructive process to suggest osteomyelitis. Vascular calcifications are noted. IMPRESSION: There is no acute fracture or dislocation. ICD 10 NO FRACTURE, INITIAL EVALUATION
== END | disposition home or self-care (01) ==
LOC: RADXRMAIN 09:25
PROVIDERS: ATTEND Nurse Practitioner Family
DX: L03.031 Cellulitis of right toe (principal)

== ENCOUNTER 2022-05-01 09:54 | Inpatient (IN) | payer MEDICARE, OTHER ==
[2022-05-01] MEDS ORDERED: IPRATROPIUM-ALBUTEROL 3 ML NEB INHALATION STA (10:16)
--- NOTE | 2022-05-01 10:36 | ED ---
SOB HPI <Tamir Yi - Last Filed: 05/01/22 11:58> - General Source: patient, RN notes reviewed Mode of arrival: ambulatory Limitations: no limitations - History of Present Illness MD Complaint: shortness of breath, cough Known History Of: congestive heart failure Associated Symptoms: sputum production Treatments Prior to Arrival: oxygen - Related Data Home Oxygen Therapy: Yes <Thea Fair - Last Filed: 05/01/22 13:24> - General Chief Complaint: Shortness of Breath Stated Complaint: vomiting Time Seen by Provider: 05/01/22 09:59 - History of Present Illness Initial Comments: This is a 76-year-old male who presents to the emergency department for difficulty breathing. He was at dialysis today, when he proceeded to throw up, and he was only able to have 1.5 hours of treatment. Currently receives hemodialysis Friday, , and Saturdays, however due to the holidays this week he is getting it Friday, Friday, and Friday. His son-in-law states that he has been on hemodialysis for many years, and is not sure how long. He does have a history of 2 renal transplants in 1992 and was also a liver donor in 1995. At dialysis they were concerned that he had an 8 kg weight gain that there was a buildup of fluid in his lungs and around his heart. He has been increasingly short of breath over the last several days according to his son-in-law, and his son-in-law states that he has seemed somewhat delusional and has been speaking to himself over the last couple of days as well. He is normally on 2 L of oxygen at home, however they've had to increase it to 3-4 L due to an increase in difficulty breathing. He was hospitalized here in early March for an acute on chronic CHF exacerbation as well and subsequently required multiple rounds of dialysis as well as diuresis. Denies any fevers, chills, sore throat, chest pain, palpitations, abdominal pain, nausea, diarrhea, back pain, or headaches. (Thea Fair) - Related Data Home Medications Medication Instructions Recorded Confirmed Atorvastatin [Lipitor] 10 mg PO HS 01/29/22 05/01/22 Cholecalciferol [Vitamin D3 (25 25 mcg PO DAILY 01/29/22 05/01/22 Mcg = 1000 Iu)] [place]-3/Dha/Epa/Fish Oil [Fish Oil 1 cap PO DAILY 01/29/22 05/01/22 1,000 mg Softgel] Ondansetron [Zofran] 4 mg PO DAILY PRN 01/29/22 05/01/22 Sevelamer Carbonate 1,600 mg PO TID-W/MEALS 01/29/22 05/01/22 oxyCODONE-APAP 5-325MG [Percocet 1 tab PO TID PRN 01/29/22 05/01/22 5-325 mg] Bumetanide [BUMEX] 4 mg PO BID 01/30/22 05/01/22 Isosorbide Mononitrate ER [Imdur] 30 mg PO DAILY 01/30/22 05/01/22 Magnesium Oxide [Mag-Ox] 400 mg PO DAILY 01/30/22 05/01/22 PARoxetine [Paxil] 10 mg PO DIRECTED 01/30/22 05/01/22 Aspirin 81 mg PO DAILY 05/01/22 05/01/22 Gabapentin [Neurontin] 100 mg PO HS 05/01/22 05/01/22 Midodrine [ProAmatine] 5 mg PO DIRECTED 05/01/22 05/01/22 rOPINIRole HCL [Requip] 0.5 mg PO BID 05/01/22 05/01/22 Previous Rx's Medication Instructions Recorded Losartan [Cozaar] 12.5 mg PO HS #15 tab 03/16/22 Metoprolol Tartrate [Lopressor] 12.5 mg PO DAILY #30 tab 03/16/22 Allergies Allergy/AdvReac Type Severity Reaction Status Date / Time enalaprilat [From Vasotec] Allergy Swelling Verified 03/11/22 20:48 lisinopril Allergy Swelling Verified 03/11/22 20:48 Review of Systems ROS Other: All systems not noted in ROS Statement are negative. <Tamir Yi - Last Filed: 05/01/22 11:58> ROS Other: All systems not noted in ROS Statement are negative. <Thea Fair - Last Filed: 05/01/22 13:24> ROS Statement: Those systems with pertinent positive or pertinent negative responses have been documented in the HPI. Past Medical History Past Medical History: Heart Failure, Dialysis, Renal Disease Additional Past Medical History / Comment(s): Heart murmur History of Any Multi-Drug Resistant Organisms: None Reported Past Surgical History: Appendectomy Additional Past Surgical History / Comment(s): Kidney transplant Past Anesthesia/Blood Transfusion Reactions: No Reported Reaction Past Psychological History: No Psychological Hx Reported Smoking Status: Former smoker Past Alcohol Use History: Rare Past Drug Use History: None Reported - Past Family History Mother Family Medical History: Cancer Additional Family Medical History / Comment(s): pancreatic cancer Father Family Medical History: CVA/TIA Additional Family Medical History / Comment(s): father of stroke , mother pancreatic cancer <Thea Fair - Last Filed: 05/01/22 13:24> General Exam Limitations: no limitations General appearance: alert Head exam: Present: atraumatic, normocephalic, normal inspection Respiratory exam: Present: respiratory distress, rhonchi, accessory muscle use, decreased breath sounds Cardiovascular Exam: Present: normal rhythm, tachycardia GI/Abdominal exam: Present: soft, normal bowel sounds. Absent: distended, tenderness Neurological exam: Present: alert Skin exam: Present: warm, dry, intact <Thea Fair - Last Filed: 05/01/22 13:24> Course Vital Signs 05/01/22 05/01/22 05/01/22 09:54 10:42 11:00 Temperature 98.3 F 98.4 F Pulse Rate 58 L 114 H 126 H Respiratory 18 24 21 Rate Blood Pressure 138/81 129/77 88/44 O2 Sat by Pulse 84 L 98 94 L Oximetry Fraction of Inspired Oxygen (FIO2) 05/01/22 05/01/22 11:05 12:04 Temperature Pulse Rate 109 H Respiratory 20 Rate Blood Pressure 128/84 O2 Sat by Pulse 99 Oximetry Fraction of 100 Inspired Oxygen (FIO2) Medical Decision Making - Lab Data Result diagrams: 05/01/22 10:10 05/01/22 10:10 <Tamir Yi - Last Filed: 05/01/22 11:58> - Lab Data Result diagrams: 05/01/22 10:10 05/01/22 10:10 - EKG Data -: EKG Interpreted by [facility] - Radiology Data Radiology results: report reviewed, image reviewed <Thea Fair - Last Filed: 05/01/22 13:24> - Medical Decision Making Patient was also evaluated by myself. Patient was unable to finish dialysis earlier. Chest x-ray concerning for CHF. Case was discussed with Dr. Byrnes, who will consult covering for critical care. Case also discussed with Dr. Muñoz, who will admit covering Dr. Pereira. Cardiology will be placed on consult. Patient has been placed on BiPAP and is living with this. Patient and family are updated. I have reviewed all documentation, results and performed the medical decision making in its entirety, which constitutes more than 50% of the visit. (Tamir Yi) This is a 76-year-old male who presents to the emergency department for difficulty breathing and vomiting. Patient had a basin next to him, which was filled with a glob of sputum. He continued to desaturate into the high 70s to low 80s on the nasal cannula and was subsequently placed on a BiPAP. A DuoNeb treatment was administered. Lab work reveals leukocytosis, hyperkalemia, and several other electrolyte irregularities. ABG measures his pO2 at 35 and pCO2 at 54. My interpretation of his chest x-ray reveals a right-sided pleural effusion and pulmonary venous congestion. COVID and influenza testing are negative. Troponin is chronically elevated for the patient and this consistent with prior values. BNP is very high at 158,000, much higher than the patient's prior values. Patient admitted to medicine for acute CHF exacerbation and hypoxemia, but will be placed in the ICU. ED attending Dr. Yi evaluated the patient as well and spoke with Dr. Byrnes for critical care consult and Dr. Cruz for medicine. Cardiology and nephrology placed as consults. Of note, the patient's home medications were not all ordered, as it is unknown when these were last taken and if they are completely up to date. We'll defer to the admitting team when re-ordering these. (Thea Fair) - Lab Data Lab Results 05/01/22 05/01/22 05/01/22 Range/Units 10:10 10:10 10:10 WBC 16.6 H (3.8-10.6) k/uL RBC 3.69 L (4.30-5.90) m/uL Hgb 12.4 L (13.0-17.5) gm/dL Hct 38.9 L (39.0-53.0) % MCV 105.5 H D (80.0-100.0) fL MCH 33.5 (25.0-35.0) pg MCHC 31.8 (31.0-37.0) g/dL RDW 17.2 H (11.5-15.5) % Plt Count 100 L (150-450) k/uL MPV 11.0 Neutrophils % 94 % Lymphocytes % 2 % Monocytes % 3 % Eosinophils % 0 % Basophils % 0 % Neutrophils # 15.6 H (1.3-7.7) k/uL Lymphocytes # 0.3 L (1.0-4.8) k/uL Monocytes # 0.5 (0-1.0) k/uL Eosinophils # 0.1 (0-0.7) k/uL Basophils # 0.0 (0-0.2) k/uL Manual Slide Review Performed Hypochromasia Slight Anisocytosis Slight Macrocytosis Marked A PT 10.9 (9.0-12.0) sec INR 1.0 (<1.2) APTT 25.8 (22.0-30.0) sec Sample Site ABG pH (7.35-7.45) ABG pCO2 (35-45) mmHg ABG pO2 (83-108) mmHg ABG HCO3 (21-25) mmol/L ABG Total CO2 (19-24) mmol/L ABG O2 Saturation (94-97) % ABG Base Excess mmol/L Javy Test FiO2 % Sodium 141 (137-145) mmol/L Potassium 5.6 H (3.5-5.1) mmol/L Chloride 98 (98-107) mmol/L Carbon Dioxide 31 H (22-30) mmol/L Anion Gap 12 mmol/L BUN 46 H (9-20) mg/dL Creatinine 4.05 H (0.66-1.25) mg/dL Est GFR (CKD-EPI)AfAm 15 (>60 ml/min/1.73 sqM) Est GFR (CKD-EPI)NonAf 13 (>60 ml/min/1.73 sqM) Glucose 101 H (74-99) mg/dL Plasma Lactic Acid Ryan (0.7-2.0) mmol/L Calcium 7.9 L (8.4-10.2) mg/dL Phosphorus (2.5-4.5) mg/dL Magnesium (1.6-2.3) mg/dL Total Bilirubin 1.6 H (0.2-1.3) mg/dL AST 49 (17-59) U/L ALT 23 (4-49) U/L Alkaline Phosphatase 146 H (38-126) U/L Troponin I (0.000-0.034) ng/mL NT-Pro-B Natriuret Pep pg/mL Total Protein 7.3 (6.3-8.2) g/dL Albumin 4.3 (3.5-5.0) g/dL Amylase 196 H (30-110) U/L Lipase 454 H (23-300) U/L Coronavirus (PCR) (Not Detectd) Influenza Type A RNA (Not Detectd) Influenza Type B (PCR) (Not Detectd) 05/01/22 05/01/22 05/01/22 Range/Units 10:10 10:10 10:10 WBC (3.8-10.6) k/uL RBC (4.30-5.90) m/uL Hgb (13.0-17.5) gm/dL Hct (39.0-53.0) % MCV (80.0-100.0) fL MCH (25.0-35.0) pg MCHC (31.0-37.0) g/dL RDW (11.5-15.5) % Plt Count (150-450) k/uL MPV Neutrophils % % Lymphocytes % % Monocytes % % Eosinophils % % Basophils % % Neutrophils # (1.3-7.7) k/uL Lymphocytes # (1.0-4.8) k/uL Monocytes # (0-1.0) k/uL Eosinophils # (0-0.7) k/uL Basophils # (0-0.2) k/uL Manual Slide Review Hypochromasia Anisocytosis Macrocytosis PT (9.0-12.0) sec INR (<1.2) APTT (22.0-30.0) sec Sample Site ABG pH (7.35-7.45) ABG pCO2 (35-45) mmHg ABG pO2 (83-108) mmHg ABG HCO3 (21-25) mmol/L ABG Total CO2 (19-24) mmol/L ABG O2 Saturation (94-97) % ABG Base Excess mmol/L Javy Test FiO2 % Sodium (137-145) mmol/L Potassium (3.5-5.1) mmol/L Chloride (98-107) mmol/L Carbon Dioxide (22-30) mmol/L Anion Gap mmol/L BUN (9-20) mg/dL Creatinine (0.66-1.25) mg/dL Est GFR (CKD-EPI)AfAm (>60 ml/min/1.73 sqM) Est GFR (CKD-EPI)NonAf (>60 ml/min/1.73 sqM) Glucose (74-99) mg/dL Plasma Lactic Acid Ryan 2.1 H* (0.7-2.0) mmol/L Calcium (8.4-10.2) mg/dL Phosphorus (2.5-4.5) mg/dL Magnesium (1.6-2.3) mg/dL Total Bilirubin (0.2-1.3) mg/dL AST (17-59) U/L ALT (4-49) U/L Alkaline Phosphatase (38-126) U/L Troponin I 0.427 H* (0.000-0.034) ng/mL NT-Pro-B Natriuret Pep 768453 pg/mL Total Protein (6.3-8.2) g/dL Albumin (3.5-5.0) g/dL Amylase (30-110) U/L Lipase (23-300) U/L Coronavirus (PCR) (Not Detectd) Influenza Type A RNA (Not Detectd) Influenza Type B (PCR) (Not Detectd) 05/01/22 05/01/22 05/01/22 Range/Units 10:10 10:10 10:28 WBC (3.8-10.6) k/uL RBC (4.30-5.90) m/uL Hgb (13.0-17.5) gm/dL Hct (39.0-53.0) % MCV (80.0-100.0) fL MCH (25.0-35.0) pg MCHC (31.0-37.0) g/dL RDW (11.5-15.5) % Plt Count (150-450) k/uL MPV Neutrophils % % Lymphocytes % % Monocytes % % Eosinophils % % Basophils % % Neutrophils # (1.3-7.7) k/uL Lymphocytes # (1.0-4.8) k/uL Monocytes # (0-1.0) k/uL Eosinophils # (0-0.7) k/uL Basophils # (0-0.2) k/uL Manual Slide Review Hypochromasia Anisocytosis Macrocytosis PT (9.0-12.0) sec INR (<1.2) APTT (22.0-30.0) sec Sample Site ABG pH (7.35-7.45) ABG pCO2 (35-45) mmHg ABG pO2 (83-108) mmHg ABG HCO3 (21-25) mmol/L ABG Total CO2 (19-24) mmol/L ABG O2 Saturation (94-97) % ABG Base Excess mmol/L Javy Test FiO2 % Sodium (137-145) mmol/L Potassium (3.5-5.1) mmol/L Chloride (98-107) mmol/L Carbon Dioxide (22-30) mmol/L Anion Gap mmol/L BUN (9-20) mg/dL Creatinine (0.66-1.25) mg/dL Est GFR (CKD-EPI)AfAm (>60 ml/min/1.73 sqM) Est GFR (CKD-EPI)NonAf (>60 ml/min/1.73 sqM) Glucose (74-99) mg/dL Plasma Lactic Acid Ryan (0.7-2.0) mmol/L Calcium (8.4-10.2) mg/dL Phosphorus 4.3 (2.5-4.5) mg/dL Magnesium 1.7 (1.6-2.3) mg/dL Total Bilirubin (0.2-1.3) mg/dL AST (17-59) U/L ALT (4-49) U/L Alkaline Phosphatase (38-126) U/L Troponin I (0.000-0.034) ng/mL NT-Pro-B Natriuret Pep pg/mL Total Protein (6.3-8.2) g/dL Albumin (3.5-5.0) g/dL Amylase (30-110) U/L Lipase (23-300) U/L Coronavirus (PCR) Not Detected (Not Detectd) Influenza Type A RNA Not Detected (Not Detectd) Influenza Type B (PCR) Not Detected (Not Detectd) 05/01/22 Range/Units 10:28 WBC (3.8-10.6) k/uL RBC (4.30-5.90) m/uL Hgb (13.0-17.5) gm/dL Hct (39.0-53.0) % MCV (80.0-100.0) fL MCH (25.0-35.0) pg MCHC (31.0-37.0) g/dL RDW (11.5-15.5) % Plt Count (150-450) k/uL MPV Neutrophils % % Lymphocytes % % Monocytes % % Eosinophils % % Basophils % % Neutrophils # (1.3-7.7) k/uL Lymphocytes # (1.0-4.8) k/uL Monocytes # (0-1.0) k/uL Eosinophils # (0-0.7) k/uL Basophils # (0-0.2) k/uL Manual Slide Review Hypochromasia Anisocytosis Macrocytosis PT (9.0-12.0) sec INR (<1.2) APTT (22.0-30.0) sec Sample Site right radial ABG pH 7.36 (7.35-7.45) ABG pCO2 54 H (35-45) mmHg ABG pO2 35 L* (83-108) mmHg ABG HCO3 30 H (21-25) mmol/L ABG Total CO2 32 H (19-24) mmol/L ABG O2 Saturation 57.6 L (94-97) % ABG Base Excess 5.0 mmol/L Javy Test Yes FiO2 100 % Sodium (137-145) mmol/L Potassium (3.5-5.1) mmol/L Chloride (98-107) mmol/L Carbon Dioxide (22-30) mmol/L Anion Gap mmol/L BUN (9-20) mg/dL Creatinine (0.66-1.25) mg/dL Est GFR (CKD-EPI)AfAm (>60 ml/min/1.73 sqM) Est GFR (CKD-EPI)NonAf (>60 ml/min/1.73 sqM) Glucose (74-99) mg/dL Plasma Lactic Acid Ryan (0.7-2.0) mmol/L Calcium (8.4-10.2) mg/dL Phosphorus (2.5-4.5) mg/dL Magnesium (1.6-2.3) mg/dL Total Bilirubin (0.2-1.3) mg/dL AST (17-59) U/L ALT (4-49) U/L Alkaline Phosphatase (38-126) U/L Troponin I (0.000-0.034) ng/mL NT-Pro-B Natriuret Pep pg/mL Total Protein (6.3-8.2) g/dL Albumin (3.5-5.0) g/dL Amylase (30-110) U/L Lipase (23-300) U/L Coronavirus (PCR) (Not Detectd) Influenza Type A RNA (Not Detectd) Influenza Type B (PCR) (Not Detectd) - EKG Data EKG Comments: Sinus tachycardia. Left axis deviation. Ventricular rate 112 bpm, NM interval 177 ms, QRS duration 97 ms, QTC 381 ms. (Thea Fair) Critical Care Time Critical Care Time: Yes Total Critical Care Time: 32 <Tamir Yi - Last Filed: 05/01/22 11:58> Disposition <Tamir Yi - Last Filed: 05/01/22 11:58> <Thea Fair - Last Filed: 05/01/22 13:24> Clinical Impression: Acute exacerbation of CHF (congestive heart failure), Acute respiratory failure Disposition: ADMITTED IP TO THIS HOSP
[2022-05-01 10:47] LABS: Anisocytosis Slight; Basophils % (A) 0 %; Eosinophils # (A) 0.1 k/uL (0-0.7); Eosinophils % (A) 0 %; HCT 38.9 % (39.0-53.0); HGB 12.4 gm/dL (13.0-17.5); Hypochromasia Slight; Lymphocytes # (A) 0.3 k/uL (1.0-4.8); Lymphocytes % (A) 2 %; MCH 33.5 pg (25.0-35.0); MCHC 31.8 g/dL (31.0-37.0); Macrocytosis Marked; Monocytes # (A) 0.5 k/uL (0-1.0); Monocytes % (A) 3 %; Neutrophils # (A) 15.6 k/uL (1.3-7.7); Neutrophils % (A) 94 %; Platelet Count 100 k/uL (150-450); RBC 3.69 m/uL (4.30-5.90); RDW 17.2 % (11.5-15.5); WBC 16.6 k/uL (3.8-10.6)
[2022-05-01 10:52] LABS: ABG HCO3 30 mmol/L (21-25); ABG Oxygen Saturation 57.6 % (94-97); ABG PCO2 54 mmHg (35-45); ABG PH 7.36 (7.35-7.45); ABG TCO2 32 mmol/L (19-24); Allen Test Performed? Yes
[2022-05-01 10:54] LABS: Partial Thromboplastin Time 25.8 sec (22.0-30.0); Prothrombin Time 10.9 sec (9.0-12.0)
[2022-05-01 10:55] LABS: Magnesium 1.7 mg/dL (1.6-2.3); Phosphorus 4.3 mg/dL (2.5-4.5)
[2022-05-01 10:56] LABS: Albumin 4.3 g/dL (3.5-5.0); Calcium 7.9 mg/dL (8.4-10.2); Potassium 5.6 mmol/L (3.5-5.1); Total Bilirubin 1.6 mg/dL (0.2-1.3); Total Protein 7.3 g/dL (6.3-8.2)
--- NOTE | 2022-05-01 10:56 | XR ---
EXAMINATION TYPE: XR chest 2V DATE OF EXAM: 05/01/2022 COMPARISON: 03/13/2020 HISTORY: Shortness of breath TECHNIQUE: Frontal and lateral views of the chest are obtained. FINDINGS: Scattered senescent parenchymal changes noted. Pulmonary venous congestion with cardiomegaly and small right-sided pleural effusion suggests mild ch anges of congestive failure. Correlate clinically. Mediastinal structures are stable and grossly unremarkable. No evidence for hilar prominence. Degenerative changes dorsal spine. IMPRESSION: 1. Pulmonary venous congestion with cardiomegaly and small right-sided pleural effusion suggests mild changes of congestive failure. Correlate clinically.
[2022-05-01 11:03] LABS: MCV 105.5 fL (80.0-100.0)
[2022-05-01 11:08] LABS: ABG PO2 35 mmHg (83-108)
[2022-05-01] MEDS ORDERED: NALOXONE 0.4 MG/ML 1 ML VIAL IV PRN ×2 (11:57→14:36)
[2022-05-01] MEDS ORDERED: ACETAMINOPHEN TAB 325 MG TAB PO PRN (11:57)
[2022-05-01] MEDS ORDERED: ONDANSETRON 4 MG TAB PO PRN (12:38)
[2022-05-01] MEDS ORDERED: oxyCODONE-APAP 5-325MG 1 EACH TAB PO PRN (12:38)
--- NOTE | 2022-05-01 14:34 | P.HPIM ---
History of Present Illness H&P Date: 05/01/22 Chief Complaint: sob 76-year-old male with history of end-stage renal disease, chronic systolic congestive heart failure with ejection fraction of 15-20%, severe aortic stenos is who presents to the emergency department for difficulty breathing. He is a very poor historian, was moaning most of my interview with him, no providing much information. According to the ER he was at dialysis today, when he threw up, he was only able to have 1.5 hours of treatment. When seen in the ER he was receiving hemodialysis. He is on Friday, , and Saturdays schedule, however due to the holidays this week he is getting it Friday, Friday, and Friday. He does have a history of 2 renal transplants in 1992 and was also a liver donor in 1995. At dialysis they were concerned that he had an 8 kg weight gain. He has been increasingly short of breath over the last several days according to his son-in-law, and his son-in-law states that he has seemed somewhat delusional and has been speaking to himself over the last couple of days as well. He is normally on 2 L of oxygen at home, however they've had to increase it to 3-4 L due to an increase in difficulty breathing. He was hospitalized here in early March for an acute on chronic CHF exacerbation as well and subsequently required multiple rounds of dialysis as well as diuresis. Patient denied having any pain except in his feet and legs which has been chronic. He denied having fevers or chills. He states he has some abdominal pain and he threw up 2 days ago but currently no pain, no nausea or vomiting. No chest pain. No urinary symptoms. Evaluation in the emergency department revealed heart rate 109, oxygen saturation 84% on room air. white count 16.6, hemoglobin 12.4, platelet count 100, sodium 141, potassium 4.6, chloride 98, bicarbonate 31, BUN 46, creatinine 4.05, glucose 101. Amylase 196, lipase 454, lactic acid 2.1, calcium 7.9, phosphorus 4.3, magnesium 1.7, troponin 0.4-7, proBNP [id number]. Abg PH 7.36, Pco2 54, Po2 35. Tested negative for flu and covid in the emergency department. CXR showed pulmonary vascular congestion with cardiomegaly. Review of Systems Unobtainable secondary to current mental status Past Medical History Past Medical History: Heart Failure, Dialysis, Renal Disease Additional Past Medical History / Comment(s): Heart murmur History of Any Multi-Drug Resistant Organisms: None Reported Past Surgical History: Appendectomy Additional Past Surgical History / Comment(s): Kidney transplant Past Anesthesia/Blood Transfusion Reactions: No Reported Reaction Past Psychological History: No Psychological Hx Reported Smoking Status: Former smoker Past Alcohol Use History: Rare Past Drug Use History: None Reported - Past Family History Mother Family Medical History: Cancer Additional Family Medical History / Comment(s): pancreatic cancer Father Family Medical History: CVA/TIA Additional Family Medical History / Comment(s): father of stroke , mother pancreatic cancer Medications and Allergies Home Medications Medication Instructions Recorded Confirmed Type Atorvastatin [Lipitor] 10 mg PO HS 01/29/22 05/01/22 History Cholecalciferol [Vitamin D3 (25 25 mcg PO DAILY 01/29/22 05/01/22 History Mcg = 1000 Iu)] [place]-3/Dha/Epa/Fish Oil [Fish Oil 1 cap PO DAILY 01/29/22 05/01/22 History 1,000 mg Softgel] Ondansetron [Zofran] 4 mg PO DAILY PRN 01/29/22 05/01/22 History Sevelamer Carbonate 1,600 mg PO TID-W/MEALS 01/29/22 05/01/22 History oxyCODONE-APAP 5-325MG [Percocet 1 tab PO TID PRN 01/29/22 05/01/22 History 5-325 mg] Bumetanide [BUMEX] 4 mg PO BID 01/30/22 05/01/22 History Isosorbide Mononitrate ER [Imdur] 30 mg PO DAILY 01/30/22 05/01/22 History Magnesium Oxide [Mag-Ox] 400 mg PO DAILY 01/30/22 05/01/22 History PARoxetine [Paxil] 10 mg PO DIRECTED 01/30/22 05/01/22 History Losartan [Cozaar] 12.5 mg PO HS #15 tab 03/16/22 05/01/22 Rx Metoprolol Tartrate [Lopressor] 12.5 mg PO DAILY #30 tab 03/16/22 05/01/22 Rx Aspirin 81 mg PO DAILY 05/01/22 05/01/22 History Gabapentin [Neurontin] 100 mg PO HS 05/01/22 05/01/22 History Midodrine [ProAmatine] 5 mg PO DIRECTED 05/01/22 05/01/22 History rOPINIRole HCL [Requip] 0.5 mg PO BID 05/01/22 05/01/22 History Allergies Allergy/AdvReac Type Severity Reaction Status Date / Time enalaprilat [From Vasotec] Allergy Swelling Verified 03/11/22 20:48 lisinopril Allergy Swelling Verified 03/11/22 20:48 Physical Exam Vitals: Vital Signs Temp Pulse Resp BP Pulse Ox FiO2 05/01/22 12:04 109 H 20 128/84 99 05/01/22 11:05 100 05/01/22 11:00 98.4 F 126 H 21 88/44 94 L 05/01/22 10:42 114 H 24 129/77 98 05/01/22 09:54 98.3 F 58 L 18 138/81 84 L Intake and Output 04/30/22 05/01/22 05/01/22 22:59 06:59 14:59 Other: Weight 76.204 kg Constitutional: No acute distress, conversant, pleasant Eyes:Anicteric sclerae, moist conjunctiva, no lid-lag, PERRLA, ENMT: Oropharynx clear, no erythema, exudates Neck: Supple, FROM, no masses, or JVD, No carotid bruits, No thyromegaly Lungs: Decreased air entry bilaterally, Clear to percussion, Normal respiratory effort, no accessory muscle use Cardiovascular: Heart regular in rate and rhythm, No murmurs, gallops, or rubs, No peripheral edema Abdominal: Soft, Nontender, no guarding, rebound or rigidity, Normoactive bowel sounds, No hepatomegaly, No splenomegaly, No palpable mass Skin: Normal temperature, tone, texture, turgor, no induration, No subcutaneous nodules, No rash, lesions, No ulcers Extremities: erythema and skin changes in both lower extremities. No digital cyanosis, No clubbing, Pedal pulses intact and symmetrical, Radial pulses intact and symmetrical, No calf tenderness Psychiatric: Alert and oriented to person, place and time, appropriate affect, intact judgement Neuro: Muscles Strength 5/5 in all 4 extremities, Sensation to light touch grossly present throughout, Cranial nerves II-XII grossly intact, no focal sensory deficits Results CBC & Chem 7: 05/01/22 10:10 05/01/22 10:10 Labs: Abnormal Lab Results - Last 24 Hours (Table) 05/01/22 05/01/22 05/01/22 Range/Units 10:10 10:10 10:10 WBC 16.6 H (3.8-10.6) k/uL RBC 3.69 L (4.30-5.90) m/uL Hgb 12.4 L (13.0-17.5) gm/dL Hct 38.9 L (39.0-53.0) % MCV 105.5 H D (80.0-100.0) fL RDW 17.2 H (11.5-15.5) % Plt Count 100 L (150-450) k/uL Neutrophils # 15.6 H (1.3-7.7) k/uL Lymphocytes # 0.3 L (1.0-4.8) k/uL Macrocytosis Marked A ABG pCO2 (35-45) mmHg ABG pO2 (83-108) mmHg ABG HCO3 (21-25) mmol/L ABG Total CO2 (19-24) mmol/L ABG O2 Saturation (94-97) % Potassium 5.6 H (3.5-5.1) mmol/L Carbon Dioxide 31 H (22-30) mmol/L BUN 46 H (9-20) mg/dL Creatinine 4.05 H (0.66-1.25) mg/dL Glucose 101 H (74-99) mg/dL Plasma Lactic Acid Ryan 2.1 H* (0.7-2.0) mmol/L Calcium 7.9 L (8.4-10.2) mg/dL Total Bilirubin 1.6 H (0.2-1.3) mg/dL Alkaline Phosphatase 146 H (38-126) U/L Troponin I (0.000-0.034) ng/mL Amylase 196 H (30-110) U/L Lipase 454 H (23-300) U/L 05/01/22 05/01/22 Range/Units 10:10 10:28 WBC (3.8-10.6) k/uL RBC (4.30-5.90) m/uL Hgb (13.0-17.5) gm/dL Hct (39.0-53.0) % MCV (80.0-100.0) fL RDW (11.5-15.5) % Plt Count (150-450) k/uL Neutrophils # (1.3-7.7) k/uL Lymphocytes # (1.0-4.8) k/uL Macrocytosis ABG pCO2 54 H (35-45) mmHg ABG pO2 35 L* (83-108) mmHg ABG HCO3 30 H (21-25) mmol/L ABG Total CO2 32 H (19-24) mmol/L ABG O2 Saturation 57.6 L (94-97) % Potassium (3.5-5.1) mmol/L Carbon Dioxide (22-30) mmol/L BUN (9-20) mg/dL Creatinine (0.66-1.25) mg/dL Glucose (74-99) mg/dL Plasma Lactic Acid Ryan (0.7-2.0) mmol/L Calcium (8.4-10.2) mg/dL Total Bilirubin (0.2-1.3) mg/dL Alkaline Phosphatase (38-126) U/L Troponin I 0.427 H* (0.000-0.034) ng/mL Amylase (30-110) U/L Lipase (23-300) U/L Assessment and Plan Plan: Acute CHF exacerbation (LVEF 10-15%) Acute on chronic hypoxic respiratory failure BIPAP O2 to keep sats above 92% Consult pulm and cardio Currently on dialysis to assist removing fluids. Resume diuretics monitor vital signs lunchroom monitor ESRD on HD left AV fistula , Nephro consult Renal diet with fluid restriction 1500 cc /24 hrs lactic acidosis , Monitor for resolution Elevated trops, (chronically elevated in ESRD patient , no report of chest pain ) cardiology to see Valvular heart disease , with suspected severe aortic valve stenosis await cardiology recs avoid hypotension thrombocytopenia , denies any bleeding continue to monitor anemia of chronic disease full code DVT PPX mechanical due to thrombocytopenia Admit to inpatient, expected length of stay more than 2 midnights
--- NOTE | 2022-05-01 15:31 | P.CNPUL ---
History of Present Illness Consult date: 05/01/22 Reason for consult: dyspnea History of present illness: This is a 76-year-old male patient who came into the [facility] because of worsening shortness of breath. 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 During this current weekend holiday, the patient was switched to dialysis regimen of Friday and Friday. While having his dialysis today, the patient started having some abdominal pain and emesis and dialysis had to be interrupted. The patient also was noted to be short of breath and for that reason the patient was brought in to the hospital for further evaluation. At the time of arrival to the MRSA department, the patient was quite short of breath and hypoxic. He normally uses oxygen at 2 L and he had increase in oxygen requirements. At that point, the patient was placed on BiPAP to support his breathing. At the time of my arrival, the patient was started on a BiPAP and the patient was utilizing BiPAP at a pressure of 12/5 cm of water with an FiO2 of 75%. He was sent to the BiPAP machine. His chest x- ray showed cardiomegaly, Pulmicort after congestion and a recurrent left-sided pleural effusion. He did have some increased edema in lower extremity bilaterally and apparently there is history of weight gain in the order of 8 kg and this patient. The patient reported left ventricular shortness of breath. No fever. No chills. No altered mentation. While in the BiPAP, the patient was able to respond Lasix questions appropriately. His potassium level was at 5.6 with a sodium level of 141, he had an elevated white cell count of 16.6 with a hemoglobin of 12.4 and his BUN was 46 with a creatinine of 4.05. The patient had a blood. That was probably suboptimal. The blood gas showed a pH of 7.36 with a pCO2 of 54 and a pO2 of 35. I believe this was done while him being on a percent FiO2. Current pulse ox is above 90% on the monitor. His proBNP level was 158,000, his LFTs were normal, his Covid 19 testing and influenza screen was negative. His magnesium was at 1.7, phosphorus is 4.3, troponin was at 0.427. Sodium level is at 141. Normal coagulation profile. Review of Systems All systems: Generalized fatigue, weakness, debility Constitutional: Reports weakness, Denies chills, Denies fever Eyes: denies blurred vision, denies pain Ears, nose, mouth and throat: Denies headache, Denies sore throat Cardiovascular: Denies chest pain, increased shortness of breath and increased lower oximetry edema Respiratory: Reports dyspnea, Denies cough Gastrointestinal: Denies abdominal pain, Denies diarrhea, Denies nausea, Denies vomiting Musculoskeletal: Denies myalgias Integumentary: Denies pruritus, Denies rash Neurological: Denies numbness increase weakness Psychiatric: Denies anxiety, Denies depression Endocrine: Increase fatigue, increased body weight 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%, history of renal chest and 2 in 1992 from a donor and in 1995 from a living donor, history of neck fracture, history of Covid 19 infection, severe aortic stenosis, anemia of chronic disease History of Any Multi-Drug Resistant Organisms: None Reported Past Surgical History: Appendectomy Additional Past Surgical History / Comment(s): Kidney transplant times 07/28/1992 and 1995 and the patient has a fistula in the left upper extremity Past Anesthesia/Blood Transfusion Reactions: No Reported Reaction Past Psychological History: No Psychological Hx Reported Smoking Status: Former smoker Past Alcohol Use History: Rare Past Drug Use History: None Reported - Past Family History Mother Family Medical History: Cancer Additional Family Medical History / Comment(s): pancreatic cancer Father Family Medical History: CVA/TIA Additional Family Medical History / Comment(s): father of stroke , mother pancreatic cancer Medications and Allergies Home Medications Medication Instructions Recorded Confirmed Type Atorvastatin [Lipitor] 10 mg PO HS 01/29/22 03/11/22 History Cholecalciferol [Vitamin D3 (25 25 mcg PO DAILY 01/29/22 03/11/22 History Mcg = 1000 Iu)] [place]-3/Dha/Epa/Fish Oil [Fish Oil 1 cap PO DAILY 01/29/22 03/11/22 History 1,000 mg Softgel] Ondansetron [Zofran] 4 mg PO DAILY PRN 01/29/22 03/11/22 History Sevelamer Carbonate 1,600 mg PO TID-W/MEALS 01/29/22 03/11/22 History oxyCODONE-APAP 5-325MG [Percocet 1 tab PO TID PRN 01/29/22 03/11/22 History 5-325 mg] Bumetanide [BUMEX] 4 mg PO BID 01/30/22 03/11/22 History Isosorbide Mononitrate ER [Imdur] 30 mg PO DAILY 01/30/22 03/11/22 History Magnesium Oxide [Mag-Ox] 400 mg PO DAILY 01/30/22 03/11/22 History PARoxetine [Paxil] 10 mg PO DIRECTED 01/30/22 03/11/22 History Losartan [Cozaar] 12.5 mg PO HS #15 tab 03/16/22 Rx Metoprolol Tartrate [Lopressor] 12.5 mg PO DAILY #30 tab 03/16/22 Rx Aspirin 81 mg PO DAILY 05/01/22 History Colchicine [Colcrys] 0.6 mg PO DIRECTED PRN 05/01/22 History Gabapentin [Neurontin] 100 mg PO HS 05/01/22 History Lidocaine-Prilocaine Cream [Emla 1 applic TOPICAL MOWEFR 05/01/22 History Cream 2.5%/2.5%] Midodrine [ProAmatine] 5 - 10 mg PO TID 05/01/22 History allopurinoL [Zyloprim] 300 mg PO DAILY 05/01/22 History rOPINIRole HCL [Requip] 2 mg PO BID 05/01/22 History Allergies Allergy/AdvReac Type Severity Reaction Status Date / Time enalaprilat [From Vasotec] Allergy Swelling Verified 03/11/22 20:48 lisinopril Allergy Swelling Verified 03/11/22 20:48 Physical Exam Vitals: Vital Signs Temp Pulse Resp BP Pulse Ox FiO2 05/01/22 15:19 100 05/01/22 12:04 109 H 20 128/84 99 05/01/22 11:05 100 05/01/22 11:00 98.4 F 126 H 21 88/44 94 L 05/01/22 10:42 114 H 24 129/77 98 05/01/22 09:54 98.3 F 58 L 18 138/81 84 L Intake and Output 05/01/22 05/01/22 05/01/22 06:59 14:59 22:59 Other: Weight 76.204 kg General: Ill appearing, no distress, appears at stated age, the patient is having minimal breathing and at this point, the patient is on BiPAP with above- mentioned settings. He is able to communicate. Derm: warm, dry Head: atraumatic, normocephalic, symmetric Eyes: EOMI, no lid lag, anicteric sclera Mouth: no lip lesion, mucus membranes moist Cardiovascular: S1S2 reg, no murmur, positive posterior tibial pulse bilateral, overall heart sounds are quite distant Lungs: Diminished breath sounds bilaterally special left lung base along with dullness to percussion and the patient has crackles in lung base bilaterally. Abdominal: soft, nontender to palpation, no guarding, no appreciable organomegaly Ext: no gross muscle atrophy, 1+ edema, no contractures Neuro: CN II-XI grossly intact, no focal neuro deficits Psych: lethargic, oriented, appropriate affect Results - Laboratory Findings CBC and BMP: 05/01/22 10:10 05/01/22 10:10 ABG ABG pH 7.36 (7.35-7.45) 05/01/22 10:28 ABG pCO2 54 mmHg (35-45) H 05/01/22 10:28 ABG pO2 35 mmHg (83-108) L* 05/01/22 10:28 ABG O2 Saturation 57.6 % (94-97) L 05/01/22 10:28 PT/INR, D-dimer PT 10.9 sec (9.0-12.0) 05/01/22 10:10 INR 1.0 (<1.2) 05/01/22 10:10 Abnormal lab findings: Abnormal Labs 05/01/22 05/01/22 05/01/22 10:10 10:10 10:10 WBC 16.6 H RBC 3.69 L Hgb 12.4 L Hct 38.9 L MCV 105.5 H D RDW 17.2 H Plt Count 100 L Neutrophils # 15.6 H Lymphocytes # 0.3 L Macrocytosis Marked A ABG pCO2 ABG pO2 ABG HCO3 ABG Total CO2 ABG O2 Saturation Potassium 5.6 H Carbon Dioxide 31 H BUN 46 H Creatinine 4.05 H Glucose 101 H Plasma Lactic Acid Ryan 2.1 H* Calcium 7.9 L Total Bilirubin 1.6 H Alkaline Phosphatase 146 H Troponin I Amylase 196 H Lipase 454 H 05/01/22 05/01/22 10:10 10:28 WBC RBC Hgb Hct MCV RDW Plt Count Neutrophils # Lymphocytes # Macrocytosis ABG pCO2 54 H ABG pO2 35 L* ABG HCO3 30 H ABG Total CO2 32 H ABG O2 Saturation 57.6 L Potassium Carbon Dioxide BUN Creatinine Glucose Plasma Lactic Acid Ryan Calcium Total Bilirubin Alkaline Phosphatase Troponin I 0.427 H* Amylase Lipase - Diagnostic Findings Chest x-ray: image reviewed Assessment and Plan Plan: Acute hypoxic respiratory failure with obvious signs of fluid overload as the patient had increasing third spacing, peripheral edema, pulmonary vascular congestion and recurrent left pleural effusion Acute BiPAP dependent respiratory failure, currently the patient is on a BiPAP at a pressures of 12/5 cm of water Acute on chronic shortness of breath, mostly related to fluid overload/CHF/ pleural effusion. End-stage renal disease, currently on hemodialysis. Reason infection with coronavirus, without coronavirus associated pneumonia. The patient was hospitalized back in March 2022 when he tested positive for Covid 19 on 03/12/2022 and subsequent testing was negative. Prior history of kidney transplant 2 with subsequent failure and the patient is currently on hemodialysis History of CHF, systolic heart failure with an ejection fraction of 15-20% in addition to mild pulmonary hypertension, moderate mitral and tricuspid regurgitation and suspected aortic stenosis and the severity could not be established by the previous echocardiogram History of hyperlipidemia. Prior history of tobacco use. Chronic Thrombocytopenia nausea, abdominal pain with mild elevation of the lipase, rule out underlying pancreatitis Hyperkalemia, potassium level is at 5.6 Mild lactic acidosis, recovered and lactic acid level has normalized. Plan Keep continue the BiPAP for now the same setting The patient will be admitted to the intensive care unit for further monitoring Contacted nephrology and the patient is going to undergo hemodialysis today as the patient has obvious signs of fluid overload Possible thoracentesis of the left lung at the later stage Keep BiPAP therapy for now Monitor lipase levels Monitor electrodes including the potassium level Continue Bumex 2 mg IV every 12 hours as the patient develops a limited amount of urine output We will resume all medication including Cozaar, metoprolol and Imdur Prognosis extremely poor based above-mentioned comorbidities. The patient will be admitted to the intensive care unit. Family was made aware.
[2022-05-01] MEDS ORDERED: HEPARIN SODIUM,PORCINE 5,000 UNIT/ML 1 ML VIAL SQ SCH (16:00)
[2022-05-01] MEDS: BUMETANIDE 0.25 MG/ML 10 ML VIAL IV SCH (17:51)
[2022-05-01] MEDS: HEPARIN SODIUM,PORCINE/PF 5,000 UNIT/0.5 ML SYRINGE SQ SCH ×2 (17:54→23:45)
[2022-05-01] MEDS: SEVELAMER 800 MG TAB PO SCH ×2 (17:55→18:31)
[2022-05-01 18:49] LABS: Glucose,Whole Blood 96 mg/dL (70-110)
[2022-05-01 20:55] LABS: Anisocytosis Slight; HCT 32.3 % (39.0-53.0); HGB 10.6 gm/dL (13.0-17.5); Hypochromasia Slight; MCH 34.4 pg (25.0-35.0); MCHC 32.7 g/dL (31.0-37.0); Macrocytosis Moderate; Mean Platelet Volume 11.1; RBC 3.08 m/uL (4.30-5.90); RDW 16.8 % (11.5-15.5); WBC 9.9 k/uL (3.8-10.6)
[2022-05-01 21:02] LABS: Platelet Count 81 k/uL (150-450)
[2022-05-01] MEDS: ATORVASTATIN 10 MG TAB PO SCH (21:19)
[2022-05-01] MEDS: GABAPENTIN 100 MG CAP PO SCH (21:19)
[2022-05-01] MEDS: LOSARTAN 25 MG TAB PO SCH (21:19)
[2022-05-01 21:28] LABS: Calcium 7.5 mg/dL (8.4-10.2); Potassium 4.3 mmol/L (3.5-5.1)
[2022-05-02] MEDS: BUMETANIDE 0.25 MG/ML 10 ML VIAL IV SCH ×2 (03:10→15:57)
[2022-05-02] MEDS: HEPARIN SODIUM,PORCINE/PF 5,000 UNIT/0.5 ML SYRINGE SQ SCH ×3 (07:54→23:31)
[2022-05-02] MEDS: MAGNESIUM OXIDE 400 MG TAB PO SCH (08:01)
[2022-05-02] MEDS: CHOLECALCIFEROL 25 MCG (1000 IU) TABLET PO SCH (08:01)
[2022-05-02] MEDS: ASPIRIN 81 MG PO SCH (08:01)
[2022-05-02] MEDS: ISOSORBIDE MONONITRATE ER 30 MG TAB.ER.24H PO SCH (08:01)
[2022-05-02] MEDS: METOPROLOL TARTRATE 12.5 MG TAB PO SCH (08:01)
[2022-05-02] MEDS: SEVELAMER 800 MG TAB PO SCH ×3 (08:09→20:19)
[2022-05-02] MEDS ORDERED: NON FORMULARY DRUG (Omega-3/Dha/Epa/Fish Oil [Fish Oil 1,000 Mg Softgel] 1 EACH Capsule) PO SCH (09:00)
[2022-05-02 09:15] LABS: Anisocytosis Slight; Basophils % (A) 0 %; Eosinophils # (A) 0.1 k/uL (0-0.7); Eosinophils % (A) 1 %; HGB 10.4 gm/dL (13.0-17.5); Hypochromasia Moderate; Lymphocytes # (A) 0.4 k/uL (1.0-4.8); Lymphocytes % (A) 4 %; MCH 33.2 pg (25.0-35.0); MCHC 31.4 g/dL (31.0-37.0); MCV 105.7 fL (80.0-100.0); Macrocytosis Marked; Mean Platelet Volume 11.2; Monocytes # (A) 0.5 k/uL (0-1.0); Monocytes % (A) 6 %; Neutrophils # (A) 7.3 k/uL (1.3-7.7); Neutrophils % (A) 87 %; RBC 3.12 m/uL (4.30-5.90); WBC 8.4 k/uL (3.8-10.6)
[2022-05-02 09:21] LABS: Platelet Count 72 k/uL (150-450)
[2022-05-02 09:37] LABS: Albumin 2.9 g/dL (3.5-5.0); Calcium 6.9 mg/dL (8.4-10.2); Magnesium 1.7 mg/dL (1.6-2.3); Phosphorus 5.2 mg/dL (2.5-4.5); Potassium 4.6 mmol/L (3.5-5.1); Total Bilirubin 1.5 mg/dL (0.2-1.3); Total Protein 5.2 g/dL (6.3-8.2)
--- NOTE | 2022-05-02 09:37 | XR ---
EXAMINATION TYPE: XR chest 1V portable DATE OF EXAM: 05/02/2022 COMPARISON: 05/01/2022 HISTORY: CHF TECHNIQUE: Single frontal view of the chest is obtained. FINDINGS: There is persistent mild cardiomegaly and moderate pulmonary vascular congestion and mild interstitial edema. There is a small right pleural effusion. There is no pneumothorax. There is no airspace opacity. IMPRESSION: Findings most consistent with mild to moderate CHF unchanged compared to the prior study.
--- NOTE | 2022-05-02 09:40 | P.NPCON ---
History of Present Illness - Reason for Consult end stage renal disease - History of Present Illness Reason for consultation: End-stage renal disease History of present illness: Patient is a 76-year-old male seen in renal consultation for end-stage renal disease. He is maintained on hemodialysis on Friday schedule. Patient came to the hospital due to worsening shortness of breath. Patient has severe cardiomyopathy with ejection fraction of 10-15%. Patient went to hemodialysis outpatient yesterday but due to vomiting the treatment was cut short and he was sent to the hospital. Patient completed hemodialysis treatment here in the hospital with 2 L ultrafiltration. He is currently on BiPAP. He was requiring 75% FiO2 and is down to 40% today. Patient did have a fever of 101.2F this admission but this morning was 98.7. Patient tested negative for coronavirus as well as influenza A and B. Patient did have COVID- 19 infection recently and tested positive in March 2022. Per nurse, not making any urine. Blood pressure is stable. Vital signs are stable. General: Resting in bed. HEENT: Head exam is unremarkable. On BiPAP. LUNGS: Breath sounds decreased. HEART: Rate and Rhythm are regular. ABDOMEN: Soft, no distention. EXTREMITITES: No edema. 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%, history of renal chest and 2 in 1992 from a donor and in 1995 from a living donor, history of neck fracture, history of Covid 19 infection, severe aortic stenosis, anemia of chronic disease History of Any Multi-Drug Resistant Organisms: None Reported Past Surgical History: Appendectomy Additional Past Surgical History / Comment(s): Kidney transplant times 07/28/1992 and 1995 and the patient has a fistula in the left upper extremity Past Anesthesia/Blood Transfusion Reactions: No Reported Reaction Past Psychological History: No Psychological Hx Reported Smoking Status: Former smoker Past Alcohol Use History: Rare Past Drug Use History: None Reported - Past Family History Mother Family Medical History: Cancer Additional Family Medical History / Comment(s): pancreatic cancer Father Family Medical History: CVA/TIA Additional Family Medical History / Comment(s): father of stroke , mother pancreatic cancer Medications and Allergies Home Medications Medication Instructions Recorded Confirmed Type Atorvastatin [Lipitor] 10 mg PO HS 01/29/22 05/01/22 History Cholecalciferol [Vitamin D3 (25 25 mcg PO DAILY 01/29/22 05/01/22 History Mcg = 1000 Iu)] [place]-3/Dha/Epa/Fish Oil [Fish Oil 1 cap PO DAILY 01/29/22 05/01/22 History 1,000 mg Softgel] Ondansetron [Zofran] 4 mg PO DAILY PRN 01/29/22 05/01/22 History Sevelamer Carbonate 800 - 1,600 mg PO DIRECTED 01/29/22 05/01/22 History oxyCODONE-APAP 5-325MG [Percocet 1 tab PO TID PRN 01/29/22 05/01/22 History 5-325 mg] Bumetanide [BUMEX] 2 - 4 mg PO DIRECTED 01/30/22 05/01/22 History Isosorbide Mononitrate ER [Imdur] 30 mg PO DAILY 01/30/22 05/01/22 History Magnesium Oxide [Mag-Ox] 400 mg PO DAILY 01/30/22 05/01/22 History PARoxetine [Paxil] 10 mg PO DAILY 01/30/22 05/01/22 History Losartan [Cozaar] 12.5 mg PO HS #15 tab 03/16/22 05/01/22 Rx Metoprolol Tartrate [Lopressor] 12.5 mg PO DAILY #30 tab 03/16/22 05/01/22 Rx Allopurinol (Unknown Dose) 1 tab PO DIRECTED 05/01/22 05/01/22 History Aspirin 81 mg PO DAILY 05/01/22 05/01/22 History Colchicine [Colcrys] 0.6 mg PO DIRECTED PRN 05/01/22 05/01/22 History Gabapentin [Neurontin] 100 mg PO HS 05/01/22 05/01/22 History Lidocaine-Prilocaine Cream [Emla 1 applic TOPICAL MOWEFR 05/01/22 05/01/22 History Cream 2.5%/2.5%] Midodrine [ProAmatine] 5 - 10 mg PO DIRECTED 05/01/22 05/01/22 History [place] 1 tab PO DAILY 05/01/22 05/01/22 History rOPINIRole HCL [Requip] 2 mg PO BID 05/01/22 05/01/22 History Allergies Allergy/AdvReac Type Severity Reaction Status Date / Time enalaprilat [From Vasotec] Allergy Swelling Verified 03/11/22 20:48 lisinopril Allergy Swelling Verified 03/11/22 20:48 Physical Exam Vitals: Vital Signs Temp Pulse Pulse Resp BP BP Pulse Ox 05/02/22 09:00 84 15 112/68 96 05/02/22 08:00 98.7 F 92 98 19 104/59 95 05/02/22 07:27 96 05/02/22 07:00 103 H 16 115/60 95 05/02/22 06:00 90 15 114/67 98 05/02/22 05:00 96 17 114/69 97 05/02/22 04:00 99.2 F 98 108 H 17 110/61 97 05/02/22 03:57 05/02/22 03:39 05/02/22 03:29 05/02/22 03:00 92 15 107/58 96 05/02/22 02:00 96 14 117/70 96 05/02/22 01:00 101 H 16 119/66 97 05/02/22 00:13 98 17 96 05/02/22 00:00 101 H 15 114/64 96 05/01/22 23:32 05/01/22 23:00 101 H 19 113/57 96 05/01/22 22:00 104 H 16 115/60 96 05/01/22 21:33 05/01/22 21:00 100 14 112/60 97 05/01/22 20:00 99.2 F 102 H 13 112/57 97 05/01/22 19:00 100.9 F H 98 19 115/49 98 05/01/22 18:58 05/01/22 18:54 18 L 20 99 05/01/22 17:43 101.2 F H 108 H 22 119/59 100 05/01/22 15:19 05/01/22 14:00 106/74 05/01/22 13:00 105 H 18 128/80 100 05/01/22 12:57 100.9 F H 110 H 18 115/60 97 05/01/22 12:04 109 H 20 128/84 99 05/01/22 12:00 110 H 20 129/76 100 05/01/22 11:05 05/01/22 11:00 98.4 F 112 H 18 129/77 94 L 05/01/22 10:42 114 H 24 129/77 98 05/01/22 10:05 79 L 05/01/22 09:54 98.3 F 58 L 18 138/81 84 L FiO2 05/02/22 09:00 05/02/22 08:00 40 05/02/22 07:27 40 05/02/22 07:00 05/02/22 06:00 05/02/22 05:00 05/02/22 04:00 40 05/02/22 03:57 40 05/02/22 03:39 50 05/02/22 03:29 65 05/02/22 03:00 05/02/22 02:00 05/02/22 01:00 05/02/22 00:13 05/02/22 00:00 05/01/22 23:32 75 05/01/22 23:00 05/01/22 22:00 85 05/01/22 21:33 85 05/01/22 21:00 05/01/22 20:00 100 05/01/22 19:00 100 05/01/22 18:58 100 05/01/22 18:54 05/01/22 17:43 05/01/22 15:19 100 05/01/22 14:00 05/01/22 13:00 05/01/22 12:57 05/01/22 12:04 05/01/22 12:00 05/01/22 11:05 100 05/01/22 11:00 05/01/22 10:42 05/01/22 10:05 05/01/22 09:54 Intake and Output 05/01/22 05/02/22 05/02/22 22:59 06:59 14:59 Intake Total 500 10 Output Total 2200 0 0 Balance -1700 0 10 Intake: Oral 10 Hemodialysis 500 Output: Urine 0 0 0 Hemodialysis 2200 Other: # Bowel Movements 2 Weight 71.9 kg Results - Lab Results Most recent lab results ABG pH 7.36 (7.35-7.45) 05/01/22 10:28 ABG pCO2 54 mmHg (35-45) H 05/01/22 10:28 ABG pO2 35 mmHg (83-108) L* 05/01/22 10:28 ABG HCO3 30 mmol/L (21-25) H 05/01/22 10:28 ABG O2 Saturation 57.6 % (94-97) L 05/01/22 10:28 Calcium 7.5 mg/dL (8.4-10.2) L 05/01/22 20:04 Phosphorus 4.3 mg/dL (2.5-4.5) 05/01/22 10:28 Magnesium 1.7 mg/dL (1.6-2.3) 05/01/22 10:28 05/02/22 08:40 05/01/22 20:04 Assessment and Plan Plan: Assessment: 1. End-stage renal disease maintained on hemodialysis on Friday schedule. 2. Acute hypoxic respiratory failure secondary to volume overload and also concern for pneumonia. 3. Acute on chronic systolic CHF with ejection fraction of 10-15%. 4. 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 5. Anemia of chronic disease. Hemoglobin at goal. Plan: Hemodialysis tomorrow. Wean FiO2. Stop Bumex if anuric. Thank you for the consultation. I will continue to follow the patient with you during his hospital stay.
--- NOTE | 2022-05-02 12:00 | P.PN ---
Subjective Progress Note Date: 05/02/22 Principal diagnosis: sob Feeling better, still with pain in both legs. Nursing reported that he has been having liquid stools 2 last night and one this am. Had a fever last night of 101.2. No chest or abdominal pain. Not making any urine. Objective - Vital Signs Vital signs: Vital Signs Temp 98.7 F 05/02/22 08:00 Pulse 89 05/02/22 11:00 Resp 15 05/02/22 11:00 BP 99/59 05/02/22 11:00 Pulse Ox 94 L 05/02/22 11:00 FiO2 40 05/02/22 10:45 Intake & Output 05/01/22 05/02/22 05/02/22 18:59 06:59 18:59 Intake Total 500 210 Output Total 2200 0 0 Balance -1700 0 210 Weight 76.204 kg 71.9 kg Intake: Oral 210 Hemodialysis 500 Output: Urine 0 0 Hemodialysis 2200 Other: # Bowel Movements 1 - Exam Constitutional: No acute distress, conversant, pleasant Eyes:Anicteric sclerae, moist conjunctiva, no lid-lag, PERRLA, ENMT: Oropharynx clear, no erythema, exudates Neck: Supple, FROM, no masses, or JVD, No carotid bruits, No thyromegaly Lungs: Decreased air entry bilaterally, Clear to percussion, Normal respiratory effort, no accessory muscle use Cardiovascular: Heart regular in rate and rhythm, No murmurs, gallops, or rubs, No peripheral edema Abdominal: Soft, Nontender, no guarding, rebound or rigidity, Normoactive bowel sounds, No hepatomegaly, No splenomegaly, No palpable mass Skin: Normal temperature, tone, texture, turgor, no induration, No subcutaneous nodules, No rash, lesions, No ulcers Extremities: erythema and skin changes in both lower extremities. No digital cyanosis, No clubbing, Pedal pulses intact and symmetrical, Radial pulses intact and symmetrical, No calf tenderness Psychiatric: Alert and oriented to person, place and time, appropriate affect, intact judgement Neuro: Muscles Strength 5/5 in all 4 extremities, Sensation to light touch grossly present throughout, Cranial nerves II-XII grossly intact, no focal sensory deficits - Labs CBC & Chem 7: 05/02/22 08:40 05/02/22 08:40 Labs: Abnormal Lab Results - Last 24 Hours (Table) 05/01/22 05/01/22 05/01/22 Range/Units 20:04 20:04 20:04 RBC 3.08 L (4.30-5.90) m/uL Hgb 10.6 L (13.0-17.5) gm/dL Hct 32.3 L (39.0-53.0) % MCV 105.0 H (80.0-100.0) fL RDW 16.8 H (11.5-15.5) % Plt Count 81 L (150-450) k/uL Lymphocytes # (1.0-4.8) k/uL Macrocytosis Sodium 136 L (137-145) mmol/L BUN 27 H (9-20) mg/dL Creatinine 2.67 H (0.66-1.25) mg/dL Calcium 7.5 L (8.4-10.2) mg/dL Phosphorus (2.5-4.5) mg/dL Total Bilirubin (0.2-1.3) mg/dL Troponin I 0.746 H* (0.000-0.034) ng/mL Total Protein (6.3-8.2) g/dL Albumin (3.5-5.0) g/dL 05/02/22 05/02/22 Range/Units 08:40 08:40 RBC 3.12 L (4.30-5.90) m/uL Hgb 10.4 L (13.0-17.5) gm/dL Hct 33.0 L (39.0-53.0) % MCV 105.7 H (80.0-100.0) fL RDW 17.0 H (11.5-15.5) % Plt Count 72 L (150-450) k/uL Lymphocytes # 0.4 L (1.0-4.8) k/uL Macrocytosis Marked A Sodium (137-145) mmol/L BUN 44 H (9-20) mg/dL Creatinine 3.48 H (0.66-1.25) mg/dL Calcium 6.9 L (8.4-10.2) mg/dL Phosphorus 5.2 H (2.5-4.5) mg/dL Total Bilirubin 1.5 H (0.2-1.3) mg/dL Troponin I (0.000-0.034) ng/mL Total Protein 5.2 L (6.3-8.2) g/dL Albumin 2.9 L (3.5-5.0) g/dL Assessment and Plan Plan: Acute CHF exacerbation (LVEF 10-15%) Acute on chronic hypoxic respiratory failure BIPAP O2 to keep sats above 92% Pulm and cardio following Currently on dialysis to assist removing fluids. 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
[2022-05-02] MEDS: ONDANSETRON 4 MG/2 ML VIAL IVP PRN ×2 (12:07→20:06)
[2022-05-02] MEDS: PARoxetine 10 MG TAB PO SCH (12:40)
--- NOTE | 2022-05-02 12:47 | P.CRDCN ---
History of Present Illness History of present illness: HISTORY OF PRESENTING ILLNESS Patient is a 76-year-old male with history of end-stage renal disease, severe cardiomyopathy EF in the 10-20% range aortic stenosis likely underestimated secondary to low-flow low gradient. Patient did have adjustment in his dialysis today secondary to the holiday weekend. He then went to dialysis yesterday morning however was feeling nauseous and extremely short of breath and therefore only able to run half of his treatment. He then came to the emergency department and received further treatment and was placed on BiPAP. He states after having some of the volume removed he has been feeling better. He admits he does not make much of any urine. He denies any chest pain or pressure. [place] been in the area for approximately 8 weeks and has been hospitalized for a total of 3 weeks. He denies any chest pain or pressure. EKG shows sinus rhythm, left axis deviation, no significant ST or T wave abnor malities. Troponin 0.42, 0.74 with previous levels in the 0.2 2.4 range. On presentation he was noted to be hypoxic, 79%. Chest x-ray shows pulmonary congestion and small right-sided pleural effusion. He was seen in ICU and was able to be weaned from BiPAP and currently feels somewhat better. REVIEW OF SYSTEMS At the time of my exam: CONSTITUTIONAL: Denies fever or chills. CARDIOVASCULAR: Denies chest pain, +shortness of breath, +orthopnea, no PND or palpitations. RESPIRATORY: Denies cough. GASTROINTESTINAL: Denies abdominal pain, diarrhea, constipation, nausea or vomiting. MUSCULOSKELETAL: Denies myalgias. NEUROLOGIC: Denies numbness, tingling or weakness. ENDOCRINE: Denies fatigue, weight change, polydipsia or polyurina. GENITOURINARY: Denies burning, hematuria or urgency with micturation. HEMATOLOGIC: Denies history of anemia or bleeding. PHYSICAL EXAMINATION Vital signs reviewed. CONSTITUTIONAL: No apparent distress, chronically ill appearing HEENT: Head is normocephalic. Pupils are equal, round. Sclerae anicteric. Mucous membranes of the mouth are moist. No JVD. No carotid bruit. CHEST EXAMINATION: Decreased breath sounds bilaterally with crackles at bases HEART EXAMINATION: Regular rate and rhythm. S1, S2 heard. +2/6 systolic murmur, no gallops or rub. ABDOMEN: Soft, nontender. Positive bowel sounds. EXTREMITIES: 2+ peripheral pulses, no lower extremity edema and no calf tenderness. NEUROLOGIC EXAMINATION: Patient is awake, alert and oriented x3. ASSESSMENT 1. Acute on chronic systolic heart failure 2. End-stage renal disease 3. Non-STEMI, type II mechanism with no angina and appears related to hypoxia and end-stage renal disease 4. Severe cardiomyopathy EF 10-20% 5. Aortic stenosis likely underestimated secondary to low-flow low gradient PLAN Majority of symptoms appear related to changes in dialysis and he had a dramatic improvements with hemodialysis yesterday. Continue to dialyze patient as needed. Continue heart failure regimen with metoprolol and losartan as well as Imdur. No significant angina-type symptoms. 2 previous similar presentations with echoes at that time showing preserved EF and no need to repeat echo. May consider ischemic workup pending patient's progress however this can likely be performed as an outpt. 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%, history of renal chest and 2 in 1992 from a donor and in 1995 from a living donor, history of neck fracture, history of Covid 19 infection, severe aortic stenosis, anemia of chronic disease History of Any Multi-Drug Resistant Organisms: None Reported Past Surgical History: Appendectomy Additional Past Surgical History / Comment(s): Kidney transplant times 07/28/1992 and 1995 and the patient has a fistula in the left upper extremity Past Anesthesia/Blood Transfusion Reactions: No Reported Reaction Past Psychological History: No Psychological Hx Reported Smoking Status: Former smoker Past Alcohol Use History: Rare Past Drug Use History: None Reported - Past Family History Mother Family Medical History: Cancer Additional Family Medical History / Comment(s): pancreatic cancer Father Family Medical History: CVA/TIA Additional Family Medical History / Comment(s): father of stroke , mother pancreatic cancer Medications and Allergies Home Medications Medication Instructions Recorded Confirmed Type Atorvastatin [Lipitor] 10 mg PO HS 01/29/22 05/01/22 History Cholecalciferol [Vitamin D3 (25 25 mcg PO DAILY 01/29/22 05/01/22 History Mcg = 1000 Iu)] [place]-3/Dha/Epa/Fish Oil [Fish Oil 1 cap PO DAILY 01/29/22 05/01/22 History 1,000 mg Softgel] Ondansetron [Zofran] 4 mg PO DAILY PRN 01/29/22 05/01/22 History Sevelamer Carbonate 800 - 1,600 mg PO DIRECTED 01/29/22 05/01/22 History oxyCODONE-APAP 5-325MG [Percocet 1 tab PO TID PRN 01/29/22 05/01/22 History 5-325 mg] Bumetanide [BUMEX] 2 - 4 mg PO DIRECTED 01/30/22 05/01/22 History Isosorbide Mononitrate ER [Imdur] 30 mg PO DAILY 01/30/22 05/01/22 History Magnesium Oxide [Mag-Ox] 400 mg PO DAILY 01/30/22 05/01/22 History PARoxetine [Paxil] 10 mg PO DAILY 01/30/22 05/01/22 History Losartan [Cozaar] 12.5 mg PO HS #15 tab 03/16/22 05/01/22 Rx Metoprolol Tartrate [Lopressor] 12.5 mg PO DAILY #30 tab 03/16/22 05/01/22 Rx Allopurinol (Unknown Dose) 1 tab PO DIRECTED 05/01/22 05/01/22 History Aspirin 81 mg PO DAILY 05/01/22 05/01/22 History Colchicine [Colcrys] 0.6 mg PO DIRECTED PRN 05/01/22 05/01/22 History Gabapentin [Neurontin] 100 mg PO HS 05/01/22 05/01/22 History Lidocaine-Prilocaine Cream [Emla 1 applic TOPICAL MOWEFR 05/01/22 05/01/22 History Cream 2.5%/2.5%] Midodrine [ProAmatine] 5 - 10 mg PO DIRECTED 05/01/22 05/01/22 History Emy-Catalino 1 tab PO DAILY 05/01/22 05/01/22 History rOPINIRole HCL [Requip] 2 mg PO BID 05/01/22 05/01/22 History Allergies Allergy/AdvReac Type Severity Reaction Status Date / Time enalaprilat [From Vasotec] Allergy Swelling Verified 03/11/22 20:48 lisinopril Allergy Swelling Verified 03/11/22 20:48 Physical Exam Vitals: Vital Signs Temp Pulse Pulse Resp BP BP Pulse Ox 05/02/22 11:00 89 15 99/59 94 L 05/02/22 10:45 05/02/22 10:00 79 15 90/58 95 05/02/22 09:00 84 15 112/68 96 05/02/22 08:00 98.7 F 92 98 19 104/59 95 05/02/22 07:27 96 05/02/22 07:00 103 H 16 115/60 95 05/02/22 06:00 90 15 114/67 98 05/02/22 05:00 96 17 114/69 97 05/02/22 04:00 99.2 F 98 108 H 17 110/61 97 05/02/22 03:57 05/02/22 03:39 05/02/22 03:29 05/02/22 03:00 92 15 107/58 96 05/02/22 02:00 96 14 117/70 96 05/02/22 01:00 101 H 16 119/66 97 05/02/22 00:13 98 17 96 05/02/22 00:00 101 H 15 114/64 96 05/01/22 23:32 05/01/22 23:00 101 H 19 113/57 96 05/01/22 22:00 104 H 16 115/60 96 05/01/22 21:33 05/01/22 21:00 100 14 112/60 97 05/01/22 20:00 99.2 F 102 H 13 112/57 97 05/01/22 19:00 100.9 F H 98 19 115/49 98 05/01/22 18:58 05/01/22 18:54 18 L 20 99 05/01/22 17:43 101.2 F H 108 H 22 119/59 100 05/01/22 15:19 05/01/22 14:00 106/74 05/01/22 13:00 105 H 18 128/80 100 05/01/22 12:57 100.9 F H 110 H 18 115/60 97 FiO2 05/02/22 11:00 05/02/22 10:45 40 05/02/22 10:00 05/02/22 09:00 05/02/22 08:00 40 05/02/22 07:27 40 05/02/22 07:00 05/02/22 06:00 05/02/22 05:00 05/02/22 04:00 40 05/02/22 03:57 40 05/02/22 03:39 50 05/02/22 03:29 65 05/02/22 03:00 05/02/22 02:00 05/02/22 01:00 05/02/22 00:13 05/02/22 00:00 05/01/22 23:32 75 05/01/22 23:00 05/01/22 22:00 85 05/01/22 21:33 85 05/01/22 21:00 05/01/22 20:00 100 05/01/22 19:00 100 05/01/22 18:58 100 05/01/22 18:54 05/01/22 17:43 05/01/22 15:19 100 05/01/22 14:00 05/01/22 13:00 05/01/22 12:57 Intake and Output 05/01/22 05/02/22 05/02/22 22:59 06:59 14:59 Intake Total 500 210 Output Total 2200 0 0 Balance -1700 0 210 Intake: Oral 210 Hemodialysis 500 Output: Urine 0 0 0 Hemodialysis 2200 Other: # Bowel Movements 1 Weight 71.9 kg Results 05/02/22 08:40 05/02/22 08:40 Cardiac Enzymes 05/01/22 05/02/22 Range/Units 20:04 08:40 AST 35 (17-59) U/L Troponin I 0.746 H* (0.000-0.034) ng/mL CBC 05/01/22 05/02/22 Range/Units 20:04 08:40 WBC 9.9 8.4 (3.8-10.6) k/uL RBC 3.08 L 3.12 L (4.30-5.90) m/uL Hgb 10.6 L 10.4 L (13.0-17.5) gm/dL Hct 32.3 L 33.0 L (39.0-53.0) % Plt Count 81 L 72 L (150-450) k/uL Comprehensive Metabolic Panel 05/01/22 05/02/22 Range/Units 20:04 08:40 Sodium 136 L 138 (137-145) mmol/L Potassium 4.3 4.6 (3.5-5.1) mmol/L Chloride 100 101 (98-107) mmol/L Carbon Dioxide 28 25 (22-30) mmol/L BUN 27 H 44 H (9-20) mg/dL Creatinine 2.67 H 3.48 H (0.66-1.25) mg/dL Glucose 90 75 (74-99) mg/dL Calcium 7.5 L 6.9 L (8.4-10.2) mg/dL AST 35 (17-59) U/L ALT 17 (4-49) U/L Alkaline Phosphatase 96 (38-126) U/L Total Protein 5.2 L (6.3-8.2) g/dL Albumin 2.9 L (3.5-5.0) g/dL Current Medications Generic Name Dose Route Start Last Admin Trade Name Freq PRN Reason Stop Dose Admin Acetaminophen 650 mg 05/01/22 11:57 Acetaminophen Tab 325 Mg Tab PO Q4HR PRN Fever and/or Mild Pain Aspirin 81 mg 05/02/22 09:00 05/02/22 08:01 Aspirin 81 Mg PO 81 mg DAILY MONY Administration Atorvastatin Calcium 10 mg 05/01/22 21:00 05/01/22 21:19 Atorvastatin 10 Mg Tab PO Not Given HS MONY Bumetanide 2 mg 05/01/22 15:00 05/02/22 03:10 Bumetanide 0.25 Mg/Ml 10 Ml Vial IV 2 mg Q12H MONY Administration Cholecalciferol 25 mcg 05/02/22 09:00 05/02/22 08:01 Cholecalciferol 25 Mcg (1000 Iu) Tablet PO 25 mcg DAILY MONY Administration Gabapentin 100 mg 05/01/22 21:00 05/01/22 21:19 Gabapentin 100 Mg Cap PO Not Given HS MONY Heparin Sodium (Porcine) 5,000 unit 05/01/22 16:00 05/02/22 07:54 Heparin Sodium,Porcine/Pf 5,000 Unit/0.5 Ml Syringe SQ 5,000 unit Q8HR MONY Administration Isosorbide Mononitrate 30 mg 05/02/22 09:00 05/02/22 08:01 Isosorbide Mononitrate Er 30 Mg Tab.Er.24h PO 30 mg DAILY MONY Administration Losartan Potassium 12.5 mg 05/01/22 21:00 05/01/22 21:19 Losartan 25 Mg Tab PO Not Given HS MONY Magnesium Oxide 400 mg 05/02/22 09:00 05/02/22 08:01 Magnesium Oxide 400 Mg Tab PO 400 mg DAILY MONY Administration Metoprolol Tartrate 12.5 mg 05/02/22 09:00 05/02/22 08:01 Metoprolol Tartrate 12.5 Mg Tab PO 12.5 mg DAILY MONY Administration Naloxone HCl 0.2 mg 05/01/22 14:36 Naloxone 0.4 Mg/Ml 1 Ml Vial IV Q2M PRN Opioid Reversal Ondansetron HCl 4 mg 05/01/22 12:38 Ondansetron 4 Mg Tab PO DAILY PRN Nausea Ondansetron HCl 4 mg 05/01/22 14:36 05/02/22 12:07 Ondansetron 4 Mg/2 Ml Vial IVP 4 mg Q8HR PRN Administration Nausea And Vomiting Oxycodone/Acetaminophen 1 each 05/02/22 11:49 Oxycodone-Apap 10-325mg 1 Each Tab PO Q8HR PRN Pain Paroxetine HCl 10 mg 05/02/22 12:00 05/02/22 12:40 Paroxetine 10 Mg Tab PO 10 mg DAILY MONY Administration Ropinirole HCl 2 mg 05/02/22 12:00 05/02/22 12:39 Ropinirole Hcl 1 Mg Tab PO 2 mg BID MONY Administration Sevelamer Carbonate 1,600 mg 05/01/22 17:30 05/02/22 12:07 Sevelamer 800 Mg Tab PO 1,600 mg TID-W/MEALS MONY Administration Intake and Output 05/01/22 05/02/22 05/02/22 22:59 06:59 14:59 Intake Total 500 210 Output Total 2200 0 0 Balance -1700 0 210 Intake: Oral 210 Hemodialysis 500 Output: Urine 0 0 0 Hemodialysis 2200 Other: # Bowel Movements 1 Weight 71.9 kg 05/02/22 08:40 05/02/22 08:40
--- NOTE | 2022-05-02 14:22 | P.PN ---
Subjective Progress Note Date: 05/02/22 This is a 76-year-old male patient who came into the ED because of worsening shortness of breath. 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 During this current holiday, the patient was switched to dialysis regimen of Friday and Friday. While having his dialysis today, the patient started having some abdominal pain and emesis and dialysis had to be interrupted. The patient also was noted to be short of breath and for that reason the patient was brought in to the hospital for further evaluation. At the time of arrival to the MRSA department, the patient was quite short of breath and hypoxic. He normally uses oxygen at 2 L and he had increase in oxygen requirements. At that point, the patient was placed on BiPAP to support his breathing. At the time of my arrival, the patient was started on a BiPAP and the patient was utilizing BiPAP at a pressure of 12/5 cm of water with an FiO2 of 75%. He was sent to the BiPAP machine. His chest x- ray showed cardiomegaly, Pulmicort after congestion and a recurrent left-sided pleural effusion. He did have some increased edema in lower extremity bilaterally and apparently there is history of weight gain in the order of 8 kg and this patient. The patient reported left ventricular shortness of breath. No fever. No chills. No altered mentation. While in the BiPAP, the patient was able to respond Lasix questions appropriately. His potassium level was at 5.6 with a sodium level of 141, he had an elevated white cell count of 16.6 with a hemoglobin of 12.4 and his BUN was 46 with a creatinine of 4.05. The patient had a blood. That was probably suboptimal. The blood gas showed a pH of 7.36 with a pCO2 of 54 and a pO2 of 35. I believe this was done while him being on a percent FiO2. Current pulse ox is above 90% on the monitor. His proBNP level was 158,000, his LFTs were normal, his Covid 19 testing and influenza screen was negative. His magnesium was at 1.7, phosphorus is 4.3, troponin was at 0.427. Sodium level is at 141. Normal coagulation profile. On 05/02/2022, the patient is doing better compared to yesterday. The patient spent the night on BiPAP at a pressure of 12/6 cm of water and FiO2 is down to 40%. He generating a tidal volume of 700 and his minute ventilation is around 12 L/m. The patient completed hemodialysis yesterday and a total of 1.7 L of fluid was removed. Another session of hemodialysis will be done tomorrow. The chest x-ray was repeated and there is improvement in the volume status and decrease in the size of left-sided pleural effusion. Troponin was 0.7. The potassium level is down to 4.3 with a sodium level of 136 and a BUN of 27 with a creatinine of 2.6. The white cell count is at 8.4 with a hemoglobin of 10.4 and a platelet count of 72. The patient is not producing much of urine output. The patient remains on Bumex. All patient medications have been resumed. He is awake and alert and communicating. Denies having any chest pain. Objective - Vital Signs Vital signs: Vital Signs Temp 98.7 F 05/02/22 08:00 Pulse 84 05/02/22 09:00 Resp 15 05/02/22 09:00 BP 112/68 05/02/22 09:00 Pulse Ox 96 05/02/22 09:00 FiO2 40 05/02/22 08:00 Intake & Output 05/01/22 05/02/22 05/02/22 18:59 06:59 18:59 Intake Total 500 10 Output Total 2200 0 0 Balance -1700 0 10 Weight 76.204 kg 71.9 kg Intake: Oral 10 Hemodialysis 500 Output: Urine 0 0 Hemodialysis 2200 Other: # Bowel Movements 2 - Exam General: Ill appearing, no distress, appears at stated age, the patient is having minimal breathing and at this point, the patient is on BiPAP with above-m entioned settings. He is able to communicate. The patient remains on a BiPAP at a pressure of 12/6 cm of water. Derm: warm, dry Head: atraumatic, normocephalic, symmetric Eyes: EOMI, no lid lag, anicteric sclera Mouth: no lip lesion, mucus membranes moist Cardiovascular: S1S2 reg, no murmur, positive posterior tibial pulse bilateral, overall heart sounds are quite distant Lungs: Diminished breath sounds bilaterally special left lung base along with dullness to percussion and the patient has crackles in lung base bilaterally. Abdominal: soft, nontender to palpation, no guarding, no appreciable organomegaly Ext: no gross muscle atrophy, 1+ edema, no contractures Neuro: CN II-XI grossly intact, no focal neuro deficits Psych: lethargic, oriented, appropriate affect - Labs CBC & Chem 7: 05/02/22 08:40 05/02/22 08:40 Labs: Abnormal Lab Results - Last 24 Hours (Table) 05/01/22 05/01/22 05/01/22 Range/Units 10:10 10:10 10:10 WBC 16.6 H (3.8-10.6) k/uL RBC 3.69 L (4.30-5.90) m/uL Hgb 12.4 L (13.0-17.5) gm/dL Hct 38.9 L (39.0-53.0) % MCV 105.5 H D (80.0-100.0) fL RDW 17.2 H (11.5-15.5) % Plt Count 100 L (150-450) k/uL Neutrophils # 15.6 H (1.3-7.7) k/uL Lymphocytes # 0.3 L (1.0-4.8) k/uL Macrocytosis Marked A ABG pCO2 (35-45) mmHg ABG pO2 (83-108) mmHg ABG HCO3 (21-25) mmol/L ABG Total CO2 (19-24) mmol/L ABG O2 Saturation (94-97) % Sodium (137-145) mmol/L Potassium 5.6 H (3.5-5.1) mmol/L Carbon Dioxide 31 H (22-30) mmol/L BUN 46 H (9-20) mg/dL Creatinine 4.05 H (0.66-1.25) mg/dL Glucose 101 H (74-99) mg/dL Plasma Lactic Acid Ryan 2.1 H* (0.7-2.0) mmol/L Calcium 7.9 L (8.4-10.2) mg/dL Total Bilirubin 1.6 H (0.2-1.3) mg/dL Alkaline Phosphatase 146 H (38-126) U/L Troponin I (0.000-0.034) ng/mL Amylase 196 H (30-110) U/L Lipase 454 H (23-300) U/L 05/01/22 05/01/22 05/01/22 Range/Units 10:10 10:28 20:04 WBC (3.8-10.6) k/uL RBC 3.08 L (4.30-5.90) m/uL Hgb 10.6 L (13.0-17.5) gm/dL Hct 32.3 L (39.0-53.0) % MCV 105.0 H (80.0-100.0) fL RDW 16.8 H (11.5-15.5) % Plt Count 81 L (150-450) k/uL Neutrophils # (1.3-7.7) k/uL Lymphocytes # (1.0-4.8) k/uL Macrocytosis ABG pCO2 54 H (35-45) mmHg ABG pO2 35 L* (83-108) mmHg ABG HCO3 30 H (21-25) mmol/L ABG Total CO2 32 H (19-24) mmol/L ABG O2 Saturation 57.6 L (94-97) % Sodium (137-145) mmol/L Potassium (3.5-5.1) mmol/L Carbon Dioxide (22-30) mmol/L BUN (9-20) mg/dL Creatinine (0.66-1.25) mg/dL Glucose (74-99) mg/dL Plasma Lactic Acid Ryan (0.7-2.0) mmol/L Calcium (8.4-10.2) mg/dL Total Bilirubin (0.2-1.3) mg/dL Alkaline Phosphatase (38-126) U/L Troponin I 0.427 H* (0.000-0.034) ng/mL Amylase (30-110) U/L Lipase (23-300) U/L 05/01/22 05/01/22 05/02/22 Range/Units 20:04 20:04 08:40 WBC (3.8-10.6) k/uL RBC 3.12 L (4.30-5.90) m/uL Hgb 10.4 L (13.0-17.5) gm/dL Hct 33.0 L (39.0-53.0) % MCV 105.7 H (80.0-100.0) fL RDW 17.0 H (11.5-15.5) % Plt Count 72 L (150-450) k/uL Neutrophils # (1.3-7.7) k/uL Lymphocytes # 0.4 L (1.0-4.8) k/uL Macrocytosis Marked A ABG pCO2 (35-45) mmHg ABG pO2 (83-108) mmHg ABG HCO3 (21-25) mmol/L ABG Total CO2 (19-24) mmol/L ABG O2 Saturation (94-97) % Sodium 136 L (137-145) mmol/L Potassium (3.5-5.1) mmol/L Carbon Dioxide (22-30) mmol/L BUN 27 H (9-20) mg/dL Creatinine 2.67 H (0.66-1.25) mg/dL Glucose (74-99) mg/dL Plasma Lactic Acid Ryan (0.7-2.0) mmol/L Calcium 7.5 L (8.4-10.2) mg/dL Total Bilirubin (0.2-1.3) mg/dL Alkaline Phosphatase (38-126) U/L Troponin I 0.746 H* (0.000-0.034) ng/mL Amylase (30-110) U/L Lipase (23-300) U/L Assessment and Plan Plan: Acute hypoxic respiratory failure with obvious signs of fluid overload as the patient had increasing third spacing, peripheral edema, pulmonary vascular congestion and recurrent left pleural effusion. The patient underwent emergent hemodialysis yesterday and emergency department with removal of 1.7 L of fluid. Shortness of breath is improved. The patient is stable for now and the patient is going to be trialed on nasal cannula. Acute BiPAP dependent respiratory failure, currently the patient is on a BiPAP at a pressures of 12/5 cm of water, with an FiO2 of 40%, improving Acute on chronic shortness of breath, mostly related to fluid overload/CHF/ pleural effusion. Clinically improved postdialysis End-stage renal disease, currently on hemodialysis. Reason infection with coronavirus, without coronavirus associated pneumonia. The patient was hospitalized back in March 2022 when he tested positive for Covid 19 on 03/12/2022 and subsequent testing was negative. Prior history of kidney transplant 2 with subsequent failure and the patient is currently on hemodialysis History of CHF, systolic heart failure with an ejection fraction of 15-20% in addition to mild pulmonary hypertension, moderate mitral and tricuspid regurgitation and suspected aortic stenosis and the severity could not be established by the previous echocardiogram History of hyperlipidemia. Prior history of tobacco use. Chronic Thrombocytopenia nausea, abdominal pain with mild elevation of the lipase, rule out underlying pancreatitis Hyperkalemia, potassium level is at 5.6, potassium level improved postdialysis Mild lactic acidosis, recovered and lactic acid level has normalized. Plan Keep continue the BiPAP for now the same setting and this can be used on an off during the day and overnight and meanwhile the patient will be given breaks off the BiPAP and placed on nasal cannula We'll put the patient on 3 L liters of oxygen nasal cannula and we will going to titrate oxygen flow to maintain saturation above 90% Another session of hemodialysis tomorrow Monitor electrodes including the potassium level Continue Bumex 2 mg IV every 12 hours as the patient develops a limited amount of urine output Continue Cozaar, metoprolol and Imdur Prognosis extremely poor based above-mentioned comorbidities. The patient will be kept in the intensive care unit for now.
[2022-05-02] MEDS: oxyCODONE-APAP 10-325MG 1 EACH TAB PO PRN (15:58)
[2022-05-02] MEDS: GABAPENTIN 100 MG CAP PO SCH (20:19)
[2022-05-02] MEDS: ATORVASTATIN 10 MG TAB PO SCH (20:19)
[2022-05-03] MEDS ORDERED: ONDANSETRON 4 MG/2 ML VIAL IVP STA (01:22)
[2022-05-03] MEDS: LOSARTAN 25 MG TAB PO SCH ×2 (01:42→21:14)
[2022-05-03] MEDS: BUMETANIDE 0.25 MG/ML 10 ML VIAL IV SCH (03:45)
[2022-05-03] MEDS: SEVELAMER 800 MG TAB PO SCH ×3 (09:18→20:08)
[2022-05-03 09:29] LABS: Anisocytosis Slight; Basophils % (A) 0 %; Eosinophils # (A) 0.1 k/uL (0-0.7); Eosinophils % (A) 1 %; HCT 32.2 % (39.0-53.0); HGB 10.3 gm/dL (13.0-17.5); Hypochromasia Moderate; Lymphocytes # (A) 0.3 k/uL (1.0-4.8); Lymphocytes % (A) 5 %; MCH 33.9 pg (25.0-35.0); MCHC 31.9 g/dL (31.0-37.0); MCV 106.1 fL (80.0-100.0); Macrocytosis Marked; Mean Platelet Volume 10.8; Monocytes # (A) 0.6 k/uL (0-1.0); Monocytes % (A) 8 %; Neutrophils # (A) 6.1 k/uL (1.3-7.7); Neutrophils % (A) 83 %; RBC 3.04 m/uL (4.30-5.90); RDW 16.3 % (11.5-15.5); WBC 7.3 k/uL (3.8-10.6)
[2022-05-03] MEDS ORDERED: MIDODRINE 5 MG TAB PO ONE (09:30)
[2022-05-03] MEDS: PROMETHAZINE 25 MG TAB PO PRN ×3 (09:34→21:17)
--- NOTE | 2022-05-03 09:44 | P.PN ---
Subjective HISTORY OF PRESENTING ILLNESS Patient is a 76-year-old male with history of end-stage renal disease, severe cardiomyopathy EF in the 10-20% range aortic stenosis likely underestimated secondary to low-flow low gradient. Patient did have adjustment in his dialysis today secondary to the holiday weekend. He then went to dialysis yesterday morning however was feeling nauseous and extremely short of breath and therefore only able to run half of his treatment. He then came to the emergency department and received further treatment and was placed on BiPAP. He states after having some of the volume removed he has been feeling better. He admits he does not make much of any urine. He denies any chest pain or pressure. [place] been in the area for approximately 8 weeks and has been hospitalized for a total of 3 weeks. He denies any chest pain or pressure. EKG shows sinus rhythm, left axis deviation, no significant ST or T wave abnormalities. Troponin 0.42, 0.74 with previous levels in the 0.2 2.4 range. On presentation he was noted to be hypoxic, 79%. Chest x-ray shows pulmonary congestion and small right-sided pleural effusion. He was seen in ICU and was able to be weaned from BiPAP and currently feels somewhat better. 05/03 Patient seen and examined. Blood pressures borderline 92/56. He did have new onset of nausea yesterday and this morning with some epigastric pain. He denies any fevers or chills. He did have some loose stools however no hematochezia or melena. His breathing has been somewhat better with dialysis. PHYSICAL EXAMINATION Vital signs reviewed. CONSTITUTIONAL: No apparent distress, chronically ill appearing HEENT: Head is normocephalic. Pupils are equal, round. Sclerae anicteric. Mucous membranes of the mouth are moist. No JVD. No carotid bruit. CHEST EXAMINATION: Decreased breath sounds bilaterally with crackles at bases HEART EXAMINATION: Regular rate and rhythm. S1, S2 heard. +2/6 systolic murmur, no gallops or rub. ABDOMEN: Soft, nontender. Positive bowel sounds. EXTREMITIES: 2+ peripheral pulses, no lower extremity edema and no calf tenderness. NEUROLOGIC EXAMINATION: Patient is awake, alert and oriented x3. ASSESSMENT 1. Acute on chronic systolic heart failure 2. End-stage renal disease 3. Non-STEMI, type II mechanism with no angina and appears related to hypoxia and end-stage renal disease 4. Severe cardiomyopathy EF 10-20% 5. Aortic stenosis likely underestimated secondary to low-flow low gradient 6. Nasuea and epigastric pain, does not appear cardiac in nature PLAN Majority of symptoms appear related to changes in dialysis and has had improvements with hemodialysis. Continue to dialyze patient, undergoing HD today. Continue heart failure regimen with metoprolol and losartan as well as Imdur. No significant angina-type symptoms. 2 previous similar presentations with echoes at that time showing preserved EF and no need to repeat echo. May consider ischemic workup pending patient's progress however this can likely be performed as an outpt. Objective - Vital Signs Vital signs: Vital Signs Temp 97.8 F 05/03/22 04:00 Pulse 98 05/03/22 07:00 Resp 18 05/03/22 07:00 BP 109/58 05/03/22 07:00 Pulse Ox 92 L 05/03/22 08:13 FiO2 40 05/02/22 14:24 Intake & Output 05/02/22 05/03/22 05/03/22 18:59 06:59 18:59 Intake Total 230 500 Output Total 0 2500 Balance 230 -2000 Weight 73.3 kg Intake: Oral 230 Hemodialysis 500 Output: Urine 0 0 Emesis 100 Hemodialysis 2400 Other: # Bowel Movements 0 1 - Labs CBC & Chem 7: 05/02/22 08:40 05/02/22 08:40
[2022-05-03 09:47] LABS: Platelet Count 74 k/uL (150-450)
[2022-05-03 09:49] LABS: Potassium 4.3 mmol/L (3.5-5.1); Total Bilirubin 1.2 mg/dL (0.2-1.3); Total Protein 5.5 g/dL (6.3-8.2)
--- NOTE | 2022-05-03 09:53 | XR ---
EXAMINATION TYPE: XR abdomen 1V DATE OF EXAM: 05/03/2022 COMPARISON: NONE HISTORY: Pain TECHNIQUE: One view abdominal series FINDINGS: The osseous structures are intact. The bowel gas pattern is nonspecific. Hypertrophic and degenerati ve changes of the spine. Vascular calcifications noted. Surgical clips are seen in the abdomen. Chron ic rib deformities are noted. Prominent gastric bubble and a few small bowel loops. Arthropathy of th e hips with diffuse osteopenia. IMPRESSION: 1. Nonspecific abdomen with prominent gastric bubble. Small bowel loops in the basis of an ileus or e nteritis. A partial obstruction not entirely excluded correlate clinically
--- NOTE | 2022-05-03 09:54 | XR ---
EXAMINATION TYPE: XR chest 1V portable DATE OF EXAM: 05/03/2022 COMPARISON: 05/02/2022 HISTORY: Abnormal x-ray TECHNIQUE: Single frontal view of the chest is obtained. FINDINGS: A bilateral consolidation and pleural effusion with cardiomegaly. Hypertrophic and degener ative changes of the spine. Arthropathy of the shoulders. No pneumothorax. Hyperinflation suggests CO PD. Atherosclerotic change aorta. Prominent right paratracheal region could be the basis of positioni ng and ectatic vasculature. Correlate with standard PA and lateral views of the chest when the patien t condition tolerates. IMPRESSION: 1. COPD with cardiomegaly and bilateral lower lobe infiltrate with small effusion. Correlate for unde rlying CHF otherwise or pneumonia.
[2022-05-03] MEDS: HEPARIN SODIUM,PORCINE/PF 5,000 UNIT/0.5 ML SYRINGE SQ SCH ×2 (10:05→16:42)
--- NOTE | 2022-05-03 10:39 | P.PN ---
Subjective Patient is seen in follow-up for end-stage renal disease. He is maintained on hemodialysis on Friday schedule. Patient received dialysis yesterday with 2.4 L removed and is receiving another treatment now. He is now on nasal cannula. Patient is much better. Blood pressure is stable. Vital signs are stable. General: Awake. No acute distress. HEENT: Head exam is unremarkable. On nasal cannula. LUNGS: Breath sounds decreased. HEART: Rate and Rhythm are regular. ABDOMEN: Soft, no distention. EXTREMITITES: No edema. Objective - Vital Signs Vital signs: Vital Signs Temp 98.2 F 05/03/22 09:00 Pulse 83 05/03/22 10:00 Resp 13 05/03/22 10:00 BP 108/61 05/03/22 10:00 Pulse Ox 95 05/03/22 10:00 FiO2 40 05/02/22 14:24 Intake & Output 05/02/22 05/03/22 05/03/22 18:59 06:59 18:59 Intake Total 230 500 Output Total 0 2500 Balance 230 -2000 Weight 73.3 kg Intake: Oral 230 Hemodialysis 500 Output: Urine 0 0 Emesis 100 Hemodialysis 2400 Other: # Bowel Movements 0 1 - Labs CBC & Chem 7: 05/03/22 09:03 05/03/22 09:03 Labs: Abnormal Lab Results - Last 24 Hours (Table) 05/03/22 05/03/22 Range/Units 09:03 09:03 RBC 3.04 L (4.30-5.90) m/uL Hgb 10.3 L (13.0-17.5) gm/dL Hct 32.2 L (39.0-53.0) % MCV 106.1 H (80.0-100.0) fL RDW 16.3 H (11.5-15.5) % Plt Count 74 L (150-450) k/uL Lymphocytes # 0.3 L (1.0-4.8) k/uL Macrocytosis Marked A BUN 45 H (9-20) mg/dL Creatinine 3.56 H (0.66-1.25) mg/dL Glucose 109 H (74-99) mg/dL Calcium 7.0 L (8.4-10.2) mg/dL Total Protein 5.5 L (6.3-8.2) g/dL Albumin 3.0 L (3.5-5.0) g/dL Assessment and Plan Plan: Assessment: 1. End-stage renal disease maintained on hemodialysis on Friday schedule. 2. Acute hypoxic respiratory failure secondary to volume overload and also concern for pneumonia. 3. Acute on chronic systolic CHF with ejection fraction of 10-15%. 4. 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 5. Anemia of chronic disease. Plan: Currently seen while undergoing hemodialysis. Another treatment tomorrow per his outpatient schedule. Challenge UF as able to tolerate. Wean FiO2. Check iron studies. Stop Bumex as he is anuric. Hold losartan for systolic blood pressure less than 110.
[2022-05-03] MEDS ORDERED: IOPAMIDOL CONTRAST (ORAL USE) VIAL PO PRN (11:31)
--- NOTE | 2022-05-03 11:41 | P.PN ---
Subjective Progress Note Date: 05/03/22 Principal diagnosis: sob He was naving nausea and vomiting today, nursing reported diarrhea as well. Stool studies sent. No fevers or chills. He complains of pain in the upper abd ominal area. Objective - Vital Signs Vital signs: Vital Signs Temp 98.2 F 05/03/22 09:00 Pulse 83 05/03/22 10:00 Resp 13 05/03/22 10:00 BP 108/61 05/03/22 10:00 Pulse Ox 95 05/03/22 10:00 FiO2 40 05/02/22 14:24 Intake & Output 05/02/22 05/03/22 05/03/22 18:59 06:59 18:59 Intake Total 230 500 Output Total 0 2500 Balance 230 -2000 Weight 73.3 kg Intake: Oral 230 Hemodialysis 500 Output: Urine 0 0 Emesis 100 Hemodialysis 2400 Other: # Bowel Movements 0 1 - Exam Constitutional: No acute distress, conversant, pleasant Eyes:Anicteric sclerae, moist conjunctiva, no lid-lag, PERRLA, ENMT: Oropharynx clear, no erythema, exudates Neck: Supple, FROM, no masses, or JVD, No carotid bruits, No thyromegaly Lungs: Decreased air entry bilaterally, Clear to percussion, Normal respiratory effort, no accessory muscle use Cardiovascular: Heart regular in rate and rhythm, No murmurs, gallops, or rubs, No peripheral edema Abdominal: Soft, Nontender, no guarding, rebound or rigidity, Normoactive bowel sounds, No hepatomegaly, No splenomegaly, No palpable mass Skin: Normal temperature, tone, texture, turgor, no induration, No subcutaneous nodules, No rash, lesions, No ulcers Extremities: erythema and skin changes in both lower extremities. No digital cyanosis, No clubbing, Pedal pulses intact and symmetrical, Radial pulses intact and symmetrical, No calf tenderness Psychiatric: Alert and oriented to person, place and time, appropriate affect, intact judgement Neuro: Muscles Strength 5/5 in all 4 extremities, Sensation to light touch grossly present throughout, Cranial nerves II-XII grossly intact, no focal sensory deficits - Labs CBC & Chem 7: 05/03/22 09:03 05/03/22 09:03 Labs: Abnormal Lab Results - Last 24 Hours (Table) 05/03/22 05/03/22 Range/Units 09:03 09:03 RBC 3.04 L (4.30-5.90) m/uL Hgb 10.3 L (13.0-17.5) gm/dL Hct 32.2 L (39.0-53.0) % MCV 106.1 H (80.0-100.0) fL RDW 16.3 H (11.5-15.5) % Plt Count 74 L (150-450) k/uL Lymphocytes # 0.3 L (1.0-4.8) k/uL Macrocytosis Marked A BUN 45 H (9-20) mg/dL Creatinine 3.56 H (0.66-1.25) mg/dL Glucose 109 H (74-99) mg/dL Calcium 7.0 L (8.4-10.2) mg/dL Total Protein 5.5 L (6.3-8.2) g/dL Albumin 3.0 L (3.5-5.0) g/dL Microbiology - Last 24 Hours (Table) 05/02/22 09:03 Blood Culture - Preliminary Blood No Growth after 24 hours 05/02/22 09:12 Blood Culture - Preliminary Blood No Growth after 24 hours 05/02/22 23:27 Stool Culture - Preliminary Stool Assessment and Plan Plan: Acute CHF exacerbation (LVEF 10-15%) Acute on chronic hypoxic respiratory failure BIPAP O2 to keep sats above 92% Pulm and cardio following Currently on dialysis to assist removing fluids. Resume diuretics--currently no urine output monitor vital signs panel monitor Abdominal pain, vomiting and diarrhea, had fever on admission which is currently resolved. Amylase and lipase ok Stool cultures, WBC and C.diff ordered Xray showing possible bowel obstruction, will get abd/pelvis CT. D/w laine Lacey to give contrast ESRD on HD left AV fistula , Nephro following On HD Renal diet with fluid restriction 1500 cc /24 hrs Lactic acidosis Resolved Elevated trops, (chronically elevated in ESRD patient , no report of chest pain ) cardiology following Valvular heart disease , with suspected severe aortic valve stenosis cardiology recs Avoid hypotension thrombocytopenia , denies any bleeding continue to monitor anemia of chronic disease Stable full code DVT PPX mechanical due to thrombocytopenia
--- NOTE | 2022-05-03 15:01 | P.PN ---
Subjective Progress Note Date: 05/03/22 This is a 76-year-old male patient who came into the ED because of worsening shortness of breath. 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 During this current holiday, the patient was switched to dialysis regimen of Friday and Friday. While having his dialysis today, the patient started having some abdominal pain and emesis and dialysis had to be interrupted. The patient also was noted to be short of breath and for that reason the patient was brought in to the hospital for further evaluation. At the time of arrival to the MRSA department, the patient was quite short of breath and hypoxic. He normally uses oxygen at 2 L and he had increase in oxygen requirements. At that point, the patient was placed on BiPAP to support his breathing. At the time of my arrival, the patient was started on a BiPAP and the patient was utilizing BiPAP at a pressure of 12/5 cm of water with an FiO2 of 75%. He was sent to the BiPAP machine. His chest x- ray showed cardiomegaly, Pulmicort after congestion and a recurrent left-sided pleural effusion. He did have some increased edema in lower extremity bilaterally and apparently there is history of weight gain in the order of 8 kg and this patient. The patient reported left ventricular shortness of breath. No fever. No chills. No altered mentation. While in the BiPAP, the patient was able to respond Lasix questions appropriately. His potassium level was at 5.6 with a sodium level of 141, he had an elevated white cell count of 16.6 with a hemoglobin of 12.4 and his BUN was 46 with a creatinine of 4.05. The patient had a blood. That was probably suboptimal. The blood gas showed a pH of 7.36 with a pCO2 of 54 and a pO2 of 35. I believe this was done while him being on a percent FiO2. Current pulse ox is above 90% on the monitor. His proBNP level was 158,000, his LFTs were normal, his Covid 19 testing and influenza screen was negative. His magnesium was at 1.7, phosphorus is 4.3, troponin was at 0.427. Sodium level is at 141. Normal coagulation profile. On 05/02/2022, the patient is doing better compared to yesterday. The patient spent the night on BiPAP at a pressure of 12/6 cm of water and FiO2 is down to 40%. He generating a tidal volume of 700 and his minute ventilation is around 12 L/m. The patient completed hemodialysis yesterday and a total of 1.7 L of fluid was removed. Another session of hemodialysis will be done tomorrow. The chest x-ray was repeated and there is improvement in the volume status and decrease in the size of left-sided pleural effusion. Troponin was 0.7. The potassium level is down to 4.3 with a sodium level of 136 and a BUN of 27 with a creatinine of 2.6. The white cell count is at 8.4 with a hemoglobin of 10.4 and a platelet count of 72. The patient is not producing much of urine output. The patient remains on Bumex. All patient medications have been resumed. He is awake and alert and communicating. Denies having any chest pain. 05/03/2022, I'm seeing the patient for a follow-up. The patient is in the intensive care unit. Noted the patient underwent another session of hemodialysis yesterday with a total of 1.8 of ultrafiltration. Another session will be done today. Currently the patient on 3 L of oxygen by nasal cannula. Overnight, the patient had episodes of nausea and emesis and some vague abdominal pain. He was given Zofran and Phenergan for nausea. He also had some limited diarrhea. Accordingly, stool for C. diff was sent and the results of pending for now. Meanwhile, the patient is hemodynamically stable. He is off the BiPAP for now. His oxygen at 3 L/m cannula. His blood work today shows a sodium level of 1:30 this level of 4.3, current is 99 bicarb 30 BUN is 45 creatinine 3.56 and a white cell count 7.3 with a hemoglobin of 10.3 and a platelet count of 74. Chest x-ray from today showed COPD and cardiac megaly on bilateral lower lobe pulmonary infiltrates and small effusions lung base. The patient also had a flat some of the abdomen that showed nonspecific bowel. Repeat amylase and lipase showed drop in the numbers with a lipase level of 189. Objective - Vital Signs Vital signs: Vital Signs Temp 97.0 F L 05/03/22 13:50 Pulse 87 05/03/22 13:50 Resp 16 05/03/22 13:50 BP 121/62 05/03/22 13:50 Pulse Ox 100 05/03/22 13:00 FiO2 40 05/02/22 14:24 Intake & Output 05/02/22 05/03/22 05/03/22 18:59 06:59 18:59 Intake Total 230 500 250 Output Total 0 2500 0 Balance 230 -2000 250 Weight 73.3 kg Intake: Oral 230 250 Hemodialysis 500 Output: Urine 0 0 0 Emesis 100 Hemodialysis 2400 Other: # Bowel Movements 0 1 - Exam General: Ill appearing, no distress, appears at stated age, the patient is having minimal breathing and at this point, patient is currently on 3 L of Oxymizer nasal cannula. Derm: warm, dry Head: atraumatic, normocephalic, symmetric Eyes: EOMI, no lid lag, anicteric sclera Mouth: no lip lesion, mucus membranes moist Cardiovascular: S1S2 reg, no murmur, positive posterior tibial pulse bilateral, overall heart sounds are quite distant Lungs: Diminished breath sounds bilaterally special left lung base along with dullness to percussion and the patient has crackles in lung base bilaterally. Abdominal: soft, nontender to palpation, no guarding, no appreciable organomegaly Ext: no gross muscle atrophy, 1+ edema, no contractures Neuro: CN II-XI grossly intact, no focal neuro deficits Psych: lethargic, oriented, appropriate affect - Labs CBC & Chem 7: 05/03/22 09:03 05/03/22 09:03 Labs: Abnormal Lab Results - Last 24 Hours (Table) 05/02/22 05/03/22 05/03/22 Range/Units 23:27 09:03 09:03 RBC 3.04 L (4.30-5.90) m/uL Hgb 10.3 L (13.0-17.5) gm/dL Hct 32.2 L (39.0-53.0) % MCV 106.1 H (80.0-100.0) fL RDW 16.3 H (11.5-15.5) % Plt Count 74 L (150-450) k/uL Lymphocytes # 0.3 L (1.0-4.8) k/uL Macrocytosis Marked A BUN 45 H (9-20) mg/dL Creatinine 3.56 H (0.66-1.25) mg/dL Glucose 109 H (74-99) mg/dL Calcium 7.0 L (8.4-10.2) mg/dL Total Protein 5.5 L (6.3-8.2) g/dL Albumin 3.0 L (3.5-5.0) g/dL Stool Lactoferrin POSITIVE A (NEGATIVE) Microbiology - Last 24 Hours (Table) 05/02/22 09:03 Blood Culture - Preliminary Blood No Growth after 24 hours 05/02/22 09:12 Blood Culture - Preliminary Blood No Growth after 24 hours 05/02/22 23:27 Stool Culture - Preliminary Stool Assessment and Plan Plan: Acute hypoxic respiratory failure with obvious signs of fluid overload as the patient had increasing third spacing, peripheral edema, pulmonary vascular congestion and recurrent left pleural effusion. The patient underwent emergent hemodialysis yesterday and emergency department with removal of 1.7 L of fluid. Another session of hemodialysis was done on 05/02/2022 with a0.9 L of ultrafiltration and another session of dialysis will be done today. He is currently on 3 L of oxygen by nasal cannula. No signs of respiratory distress. Acute BiPAP dependent respiratory failure, currently the patient is off the BiPAP and is currently on 3 L Acute on chronic shortness of breath, mostly related to fluid overload/CHF/ pleural effusion. Clinically improved postdialysis Nausea and emesis and diarrhea on that investigation. Rule out C. diff colitis. The patient on a combination of Zofran and Phenergan for emesis. Last him of the abdomen is showing nonspecific findings. End-stage renal disease, currently on hemodialysis. Reason infection with coronavirus, without coronavirus associated pneumonia. The patient was hospitalized back in March 2022 when he tested positive for Covid 19 on 03/12/2022 and subsequent testing was negative. Prior history of kidney transplant 2 with subsequent failure and the patient is currently on hemodialysis History of CHF, systolic heart failure with an ejection fraction of 15-20% in addition to mild pulmonary hypertension, moderate mitral and tricuspid regurgitation and suspected aortic stenosis and the severity could not be established by the previous echocardiogram History of hyperlipidemia. Prior history of tobacco use. Chronic Thrombocytopenia nausea, abdominal pain with mild elevation of the lipase, rule out underlying pancreatitis Hyperkalemia, potassium level is at 5.6, potassium level improved postdialysis Mild lactic acidosis, recovered and lactic acid level has normalized. Plan Amylase and lipase levels are improving Complete hemodialysis today Continue rest of the medications Currently on 3 L of oxygen by nasal cannula Head some of the abdomen was nonspecific Stool for C. diff to be checked Keep the patient ICU and will continue to follow. Prognosis extremely poor based above-mentioned comorbidities. The patient will be kept in the intensive care unit for now.
[2022-05-03] MEDS: ASPIRIN 81 MG PO SCH (15:40)
[2022-05-03] MEDS: ISOSORBIDE MONONITRATE ER 30 MG TAB.ER.24H PO SCH (15:40)
[2022-05-03] MEDS: METOPROLOL TARTRATE 12.5 MG TAB PO SCH (15:40)
[2022-05-03] MEDS: MAGNESIUM OXIDE 400 MG TAB PO SCH (16:41)
[2022-05-03] MEDS: CHOLECALCIFEROL 25 MCG (1000 IU) TABLET PO SCH (16:42)
[2022-05-03] MEDS: PARoxetine 10 MG TAB PO SCH (16:42)
--- NOTE | 2022-05-03 17:06 | CT ---
EXAMINATION TYPE: CT abdomen pelvis w con DATE OF EXAM: 05/03/2022 COMPARISON: None HISTORY: Vomiting and diarrhea. Patient on dialysis CT DLP: 1327.2 mGycm Automated exposure control for dose reduction was used. CONTRAST: Performed with IV Contrast, patient injected with 100ml mL of Isovue 300. Images obtained from the diaphragm to the floor of the pelvis with oral and IV contrast. There are bilateral pleural effusions. Heart is borderline enlarged. There is some infiltrate and ate lectasis at both lung bases. Liver and spleen are intact. Gallbladder is dilated and measures 6 cm in diameter. The intrahepatic bile are not dilated. No evidence of pancreatic mass. There is vascular c alcification. There is no adrenal mass. Kidneys are absent. There is a transplanted kidney in the pelvis on the lef t side. There is 2.4 cm cortical cyst in the transplant kidney. No hydronephrosis. No retroperitoneal adenopathy. Abdominal aorta is atheromatous. There is some sigmoid diverticulosis without diverticul itis. No inguinal hernia. There is some prostate calcification. No free fluid in the pelvis. No ascit es. There is dilated mid small bowel up to 4 cm. Transition point not seen. The terminal ileum is not dilated. Appendix not seen. No sign of thickened appendix. There is multilevel lumbar spondylotic changes. No compression fracture. The hip joints are intact. IMPRESSION: Dilated gallbladder suggestive of cholecystitis. No dilated ducts. Dilated mid small bowel with no transition point seen. This could relate to partial mechanical obstru ction or small bowel ileus. Atherosclerotic vascular disease. Pleural effusions and cardiomegaly that could be some chronic congestive heart failure.
[2022-05-03] MEDS: GABAPENTIN 100 MG CAP PO SCH (21:17)
[2022-05-03] MEDS: ATORVASTATIN 10 MG TAB PO SCH (21:18)
[2022-05-03] MEDS: oxyCODONE-APAP 10-325MG 1 EACH TAB PO PRN (22:33)
[2022-05-04] MEDS: HEPARIN SODIUM,PORCINE/PF 5,000 UNIT/0.5 ML SYRINGE SQ SCH ×3 (00:27→18:54)
[2022-05-04 01:09] LABS: Glucose,Whole Blood 102 mg/dL (70-110)
[2022-05-04 07:12] LABS: Anisocytosis Slight; HCT 31.4 % (39.0-53.0); HGB 10.1 gm/dL (13.0-17.5); Hypochromasia Marked; MCH 34.4 pg (25.0-35.0); MCHC 32.1 g/dL (31.0-37.0); MCV 107.2 fL (80.0-100.0); Macrocytosis Marked; Mean Platelet Volume 10.8; RBC 2.93 m/uL (4.30-5.90); RDW 16.2 % (11.5-15.5)
[2022-05-04 07:15] LABS: Platelet Count 66 k/uL (150-450)
[2022-05-04 07:27] LABS: Calcium 6.9 mg/dL (8.4-10.2); Potassium 4.1 mmol/L (3.5-5.1)
[2022-05-04] MEDS ORDERED: PIPERACILLIN-TAZOBACTAM 3.375 GM in SODIUM CHLORIDE 0.9% 100 ML IVPB SCH (09:00)
--- NOTE | 2022-05-04 10:11 | P.GSCN ---
History of Present Illness Consult date: 05/04/22 Reason for Consult: Abdominal pain History of present illness: 76-year-old male comes in the ER with complaints of shortness of breath, vomitin g, and confusion. Patient says he has had 3-4 episodes in the last several years where he was told he had a bowel obstruction. His symptoms resolved with bowel rest he says during those episodes. He has had bowel movements. He was at dialysis 2 days ago when he had episodes of vomiting. Pain was again present yesterday along with further vomiting. CAT scan was ordered. CAT scan shows mild small bowel dilation. It also shows a distended gallbladder. Patient points to the periumbilical region as the source of his pain. Denies right upper quadrant pain. No history of known gallbladder disease. White blood cell count normal. Bilirubin initially minimally elevated. That is now normal. 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%, history of renal chest and 2 in 1992 from a donor and in 1995 from a living donor, history of neck fracture, history of Covid 19 infection, severe aortic stenosis, anemia of chronic disease History of Any Multi-Drug Resistant Organisms: None Reported Past Surgical History: Appendectomy Additional Past Surgical History / Comment(s): Kidney transplant times 07/28/1992 and 1995 and the patient has a fistula in the left upper extremity Past Anesthesia/Blood Transfusion Reactions: No Reported Reaction Past Psychological History: No Psychological Hx Reported Smoking Status: Former smoker Past Alcohol Use History: Rare Past Drug Use History: None Reported - Past Family History Mother Family Medical History: Cancer Additional Family Medical History / Comment(s): pancreatic cancer Father Family Medical History: CVA/TIA Additional Family Medical History / Comment(s): father of stroke , mother pancreatic cancer Medications and Allergies Home Medications Medication Instructions Recorded Confirmed Type Atorvastatin [Lipitor] 10 mg PO HS 01/29/22 05/01/22 History Cholecalciferol [Vitamin D3 (25 25 mcg PO DAILY 01/29/22 05/01/22 History Mcg = 1000 Iu)] [place]-3/Dha/Epa/Fish Oil [Fish Oil 1 cap PO DAILY 01/29/22 05/01/22 History 1,000 mg Softgel] Ondansetron [Zofran] 4 mg PO DAILY PRN 01/29/22 05/01/22 History Sevelamer Carbonate 800 - 1,600 mg PO DIRECTED 01/29/22 05/01/22 History oxyCODONE-APAP 5-325MG [Percocet 1 tab PO TID PRN 01/29/22 05/01/22 History 5-325 mg] Bumetanide [BUMEX] 2 - 4 mg PO DIRECTED 01/30/22 05/01/22 History Isosorbide Mononitrate ER [Imdur] 30 mg PO DAILY 01/30/22 05/01/22 History Magnesium Oxide [Mag-Ox] 400 mg PO DAILY 01/30/22 05/01/22 History PARoxetine [Paxil] 10 mg PO DAILY 01/30/22 05/01/22 History Losartan [Cozaar] 12.5 mg PO HS #15 tab 03/16/22 05/01/22 Rx Metoprolol Tartrate [Lopressor] 12.5 mg PO DAILY #30 tab 03/16/22 05/01/22 Rx Allopurinol (Unknown Dose) 1 tab PO DIRECTED 05/01/22 05/01/22 History Aspirin 81 mg PO DAILY 05/01/22 05/01/22 History Colchicine [Colcrys] 0.6 mg PO DIRECTED PRN 05/01/22 05/01/22 History Gabapentin [Neurontin] 100 mg PO HS 05/01/22 05/01/22 History Lidocaine-Prilocaine Cream [Emla 1 applic TOPICAL MOWEFR 05/01/22 05/01/22 His tory Cream 2.5%/2.5%] Midodrine [ProAmatine] 5 - 10 mg PO DIRECTED 05/01/22 05/01/22 History Emy-Catalino 1 tab PO DAILY 05/01/22 05/01/22 History rOPINIRole HCL [Requip] 2 mg PO BID 05/01/22 05/01/22 History Allergies Allergy/AdvReac Type Severity Reaction Status Date / Time enalaprilat [From Vasotec] Allergy Swelling Verified 03/11/22 20:48 lisinopril Allergy Swelling Verified 03/11/22 20:48 Surgical - Exam Vital Signs Temp Pulse Resp BP Pulse Ox 98.3 F 58 L 18 138/81 84 L 05/01/22 09:54 05/01/22 09:54 05/01/22 09:54 05/01/22 09:54 05/01/22 09:54 Physical exam: General: Well-developed, well-nourished HEENT: Normocephalic, sclerae nonicteric Abdomen: Nontender, nondistended Extremities: Mild edema, dialysis access noted Neuro: Alert and oriented Results - Labs 05/04/22 06:50 05/04/22 06:50 Abnormal Lab Results - Last 24 Hours (Table) 05/02/22 05/03/22 05/04/22 Range/Units 23:27 09:03 06:50 RBC 2.93 L (4.30-5.90) m/uL Hgb 10.1 L (13.0-17.5) gm/dL Hct 31.4 L (39.0-53.0) % MCV 107.2 H (80.0-100.0) fL RDW 16.2 H (11.5-15.5) % Plt Count 66 L (150-450) k/uL Macrocytosis Marked A Sodium (137-145) mmol/L BUN (9-20) mg/dL Creatinine (0.66-1.25) mg/dL Glucose (74-99) mg/dL Calcium (8.4-10.2) mg/dL Iron 51 L (65-175) ug/dL TIBC 190 L (228-460) ug/dL Transferrin 136.0 L (204.0-354.0) mg/dL Ferritin 1387.0 H (22.0-322.0) ng/mL Stool Lactoferrin POSITIVE A (NEGATIVE) 05/04/22 Range/Units 06:50 RBC (4.30-5.90) m/uL Hgb (13.0-17.5) gm/dL Hct (39.0-53.0) % MCV (80.0-100.0) fL RDW (11.5-15.5) % Plt Count (150-450) k/uL Macrocytosis Sodium 134 L (137-145) mmol/L BUN 31 H (9-20) mg/dL Creatinine 3.10 H (0.66-1.25) mg/dL Glucose 71 L (74-99) mg/dL Calcium 6.9 L (8.4-10.2) mg/dL Iron (65-175) ug/dL TIBC (228-460) ug/dL Transferrin (204.0-354.0) mg/dL Ferritin (22.0-322.0) ng/mL Stool Lactoferrin (NEGATIVE) Microbiology - Last 24 Hours (Table) 05/02/22 09:03 Blood Culture - Preliminary Blood No Growth after 24 hours 05/02/22 09:12 Blood Culture - Preliminary Blood No Growth after 24 hours 05/02/22 23:27 Stool Culture - Preliminary Stool Diabetes panel 05/04/22 Range/Units 06:50 Sodium 134 L (137-145) mmol/L Potassium 4.1 (3.5-5.1) mmol/L Chloride 98 (98-107) mmol/L Carbon Dioxide 28 (22-30) mmol/L BUN 31 H (9-20) mg/dL Creatinine 3.10 H (0.66-1.25) mg/dL Glucose 71 L (74-99) mg/dL Calcium 6.9 L (8.4-10.2) mg/dL Calcium panel 05/04/22 Range/Units 06:50 Calcium 6.9 L (8.4-10.2) mg/dL Pituitary panel 05/04/22 Range/Units 06:50 Sodium 134 L (137-145) mmol/L Potassium 4.1 (3.5-5.1) mmol/L Chloride 98 (98-107) mmol/L Carbon Dioxide 28 (22-30) mmol/L BUN 31 H (9-20) mg/dL Creatinine 3.10 H (0.66-1.25) mg/dL Glucose 71 L (74-99) mg/dL Calcium 6.9 L (8.4-10.2) mg/dL Adrenal panel 05/04/22 Range/Units 06:50 Sodium 134 L (137-145) mmol/L Potassium 4.1 (3.5-5.1) mmol/L Chloride 98 (98-107) mmol/L Carbon Dioxide 28 (22-30) mmol/L BUN 31 H (9-20) mg/dL Creatinine 3.10 H (0.66-1.25) mg/dL Glucose 71 L (74-99) mg/dL Calcium 6.9 L (8.4-10.2) mg/dL Assessment and Plan Assessment: 76-year-old male with abdominal pain, vomiting, and CAT scan findings as described. Etiology unclear at this time. Favor ileus/PSBO over cholecystitis as the etiology for his symptoms. We'll check abdominal ultrasound. Continue clear liquid diet for now. Repeat abdominal x-rays tomorrow. Will follow.
[2022-05-04] MEDS ORDERED: MIDODRINE 5 MG TAB PO PRN (10:13)
--- NOTE | 2022-05-04 10:14 | P.PN ---
Subjective Progress Note Date: 05/04/22 This is a 76-year-old male patient who came into the ED because of worsening shortness of breath. 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 During this current holiday, the patient was switched to dialysis regimen of Friday and Friday. While having his dialysis today, the patient started having some abdominal pain and emesis and dialysis had to be interrupted. The patient also was noted to be short of breath and for that reason the patient was brought in to the hospital for further evaluation. At the time of arrival to the MRSA department, the patient was quite short of breath and hypoxic. He normally uses oxygen at 2 L and he had increase in oxygen requirements. At that point, the patient was placed on BiPAP to support his breathing. At the time of my arrival, the patient was started on a BiPAP and the patient was utilizing BiPAP at a pressure of 12/5 cm of water with an FiO2 of 75%. He was sent to the BiPAP machine. His chest x- ray showed cardiomegaly, Pulmicort after congestion and a recurrent left-sided pleural effusion. He did have some increased edema in lower extremity bilaterally and apparently there is history of weight gain in the order of 8 kg and this patient. The patient reported left ventricular shortness of breath. No fever. No chills. No altered mentation. While in the BiPAP, the patient was able to respond Lasix questions appropriately. His potassium level was at 5.6 with a sodium level of 141, he had an elevated white cell count of 16.6 with a hemoglobin of 12.4 and his BUN was 46 with a creatinine of 4.05. The patient had a blood. That was probably suboptimal. The blood gas showed a pH of 7.36 with a pCO2 of 54 and a pO2 of 35. I believe this was done while him being on a percent FiO2. Current pulse ox is above 90% on the monitor. His proBNP level was 158,000, his LFTs were normal, his Covid 19 testing and influenza screen was negative. His magnesium was at 1.7, phosphorus is 4.3, troponin was at 0.427. Sodium level is at 141. Normal coagulation profile. On 05/02/2022, the patient is doing better compared to yesterday. The patient spent the night on BiPAP at a pressure of 12/6 cm of water and FiO2 is down to 40%. He generating a tidal volume of 700 and his minute ventilation is around 12 L/m. The patient completed hemodialysis yesterday and a total of 1.7 L of fluid was removed. Another session of hemodialysis will be done tomorrow. The chest x-ray was repeated and there is improvement in the volume status and decrease in the size of left-sided pleural effusion. Troponin was 0.7. The potassium level is down to 4.3 with a sodium level of 136 and a BUN of 27 with a creatinine of 2.6. The white cell count is at 8.4 with a hemoglobin of 10.4 and a platelet count of 72. The patient is not producing much of urine output. The patient remains on Bumex. All patient medications have been resumed. He is awake and alert and communicating. Denies having any chest pain. 05/03/2022, I'm seeing the patient for a follow-up. The patient is in the intensive care unit. Noted the patient underwent another session of hemodialysis yesterday with a total of 1.8 of ultrafiltration. Another session will be done today. Currently the patient on 3 L of oxygen by nasal cannula. Overnight, the patient had episodes of nausea and emesis and some vague abdominal pain. He was given Zofran and Phenergan for nausea. He also had some limited diarrhea. Accordingly, stool for C. diff was sent and the results of pending for now. Meanwhile, the patient is hemodynamically stable. He is off the BiPAP for now. His oxygen at 3 L/m cannula. His blood work today shows a sodium level of 1:30 this level of 4.3, current is 99 bicarb 30 BUN is 45 creatinine 3.56 and a white cell count 7.3 with a hemoglobin of 10.3 and a platelet count of 74. Chest x-ray from today showed COPD and cardiac megaly on bilateral lower lobe pulmonary infiltrates and small effusions lung base. The patient also had a flat some of the abdomen that showed nonspecific bowel. Repeat amylase and lipase showed drop in the numbers with a lipase level of 189. Today's evaluation of 05/04/2022, the patient is being seen for a follow-up. The patient is undergoing another session of hemodialysis. Dialysis was done yesterday and another session to be done today. The patient is being also demonstrated on a regular basis. The patient is currently on oxygen at 3 L. No significant respiratory distress. There was some concern of ongoing abdominal pain and some nausea and emesis yesterday. The patient was given Zofran and Phenergan. He was having also some episodic diarrhea. The diarrhea has resolved. Abdominal pain has also resolved. No emesis for now. CAT scan of the abdomen and pelvis was done yesterday and the patient was found to have bilateral pleural effusion. Limited atelectasis in lung bases. Gallbladder was dilated and measures up to 6 cm in size. The biliary ducts were none dilated. There was multilevel lumbar spondylolytic changes. There was dilated mid small bowel without a transition points. Possibility of ileus cannot be completely ruled out. In enervates, GI surgeries on the case. The patient is tolerating a heart healthy diet. The white cell count is at 5 with a hemoglobin of 10.1 and a platelet count of 66. BUN is 31 with a creatinine of 3.1 and sodium is at 134. Stool for C. diff is still not done as the patient's stool was better for him. Otherwise, no other significant events. No pressors. His blood pressure is borderline hypotensive. Objective - Vital Signs Vital signs: Vital Signs Temp 97.6 F 05/04/22 08:00 Pulse 87 05/04/22 09:00 Resp 12 05/04/22 09:00 BP 114/74 05/04/22 09:00 Pulse Ox 90 L 05/04/22 09:00 FiO2 100 05/04/22 00:55 Intake & Output 05/03/22 05/04/22 05/04/22 18:59 06:59 18:59 Intake Total 450 Output Total 0 0 0 Balance 450 0 0 Weight 68.6 kg Intake: Oral 450 Output: Urine 0 0 0 Other: # Bowel Movements 1 - Exam General: Ill appearing, no distress, appears at stated age, the patient is having minimal breathing and at this point, patient is currently on 3 L of O2 nasal cannula. Derm: warm, dry Head: atraumatic, normocephalic, symmetric Eyes: EOMI, no lid lag, anicteric sclera Mouth: no lip lesion, mucus membranes moist Cardiovascular: S1S2 reg, no murmur, positive posterior tibial pulse bilateral, overall heart sounds are quite distant Lungs: Diminished breath sounds bilaterally special left lung base along with dullness to percussion and the patient has crackles in lung base bilaterally. Abdominal: soft, nontender to palpation, no guarding, no appreciable organomegaly Ext: no gross muscle atrophy, 1+ edema, no contractures Neuro: CN II-XI grossly intact, no focal neuro deficits Psych: lethargic, oriented, appropriate affect - Labs CBC & Chem 7: 05/04/22 06:50 05/04/22 06:50 Labs: Abnormal Lab Results - Last 24 Hours (Table) 05/02/22 05/03/22 05/04/22 Range/Units 23:27 09:03 06:50 RBC 2.93 L (4.30-5.90) m/uL Hgb 10.1 L (13.0-17.5) gm/dL Hct 31.4 L (39.0-53.0) % MCV 107.2 H (80.0-100.0) fL RDW 16.2 H (11.5-15.5) % Plt Count 66 L (150-450) k/uL Macrocytosis Marked A Sodium (137-145) mmol/L BUN (9-20) mg/dL Creatinine (0.66-1.25) mg/dL Glucose (74-99) mg/dL Calcium (8.4-10.2) mg/dL Iron 51 L (65-175) ug/dL TIBC 190 L (228-460) ug/dL Transferrin 136.0 L (204.0-354.0) mg/dL Ferritin 1387.0 H (22.0-322.0) ng/mL Stool Lactoferrin POSITIVE A (NEGATIVE) 05/04/22 Range/Units 06:50 RBC (4.30-5.90) m/uL Hgb (13.0-17.5) gm/dL Hct (39.0-53.0) % MCV (80.0-100.0) fL RDW (11.5-15.5) % Plt Count (150-450) k/uL Macrocytosis Sodium 134 L (137-145) mmol/L BUN 31 H (9-20) mg/dL Creatinine 3.10 H (0.66-1.25) mg/dL Glucose 71 L (74-99) mg/dL Calcium 6.9 L (8.4-10.2) mg/dL Iron (65-175) ug/dL TIBC (228-460) ug/dL Transferrin (204.0-354.0) mg/dL Ferritin (22.0-322.0) ng/mL Stool Lactoferrin (NEGATIVE) Microbiology - Last 24 Hours (Table) 05/02/22 09:03 Blood Culture - Preliminary Blood No Growth after 24 hours 05/02/22 09:12 Blood Culture - Preliminary Blood No Growth after 24 hours 05/02/22 23:27 Stool Culture - Preliminary Stool Assessment and Plan Plan: Acute hypoxic respiratory failure with obvious signs of fluid overload as the patient had increasing third spacing, peripheral edema, pulmonary vascular congestion and recurrent left pleural effusion. The patient has underwent dialy sis on a daily basis since admission, and this is going to be his fourth hemodialysis. Is off the BiPAP and is on oxygen at 3 L/m nasal cannula. Acute BiPAP dependent respiratory failure, currently the patient is off the BiPAP and is currently on 3 L Acute on chronic shortness of breath, mostly related to fluid overload/CHF/ pleural effusion. Clinically improved postdialysis Nausea and emesis and diarrhea on that investigation. Rule out C. diff colitis. The patient on a combination of Zofran and Phenergan for emesis. Last him of the abdomen is showing nonspecific findings. The GI status is stable and the patient is currently well and asymptomatic. CAT scan of the abdomen was done a nd the findings were essentially nonspecific, questionable ileus. No leukocytosis. LFTs are normal. The gallbladder was dilated. We'll proceed with an ultrasound the gallbladder. End-stage renal disease, currently on hemodialysis. Reason infection with coronavirus, without coronavirus associated pneumonia. The patient was hospitalized back in March 2022 when he tested positive for Covid 19 on 03/12/2022 and subsequent testing was negative. Prior history of kidney transplant 2 with subsequent failure and the patient is currently on hemodialysis History of CHF, systolic heart failure with an ejection fraction of 15-20% in addition to mild pulmonary hypertension, moderate mitral and tricuspid regurgitation and suspected aortic stenosis and the severity could not be established by the previous echocardiogram History of hyperlipidemia. Prior history of tobacco use. Chronic Thrombocytopenia nausea, abdominal pain with mild elevation of the lipase, rule out underlying pancreatitis Hyperkalemia, potassium level is at 5.6, potassium level improved postdialysis Mild lactic acidosis, recovered and lactic acid level has normalized. Plan Discontinue Zosyn, no need for antibiotics Please on ultrasound of the gallbladder, GI symptoms have essentially recovered Amylase and lipase levels are improving Complete hemodialysis today Continue rest of the medications Currently on 3 L of oxygen by nasal cannula Head midodrine 3 times a day upon the request of the dialysis specialist exam blood pressure during hemodialysis and the patient will be started on midodrine 10 mg by mouth 3 times a day Keep the patient ICU and will continue to follow. Prognosis extremely poor based above-mentioned comorbidities.
--- NOTE | 2022-05-04 10:38 | P.PN ---
Subjective Progress Note Date: 05/04/22 Principal diagnosis: This is a 76-year-old male with ESRD on dialysis Friday. Came in with volume overload. Last dialysis before yesterday 2 L were taken off and he was able to tolerated with blood pressure somewhat low in the 90s to 100 as per the dialysis nurse. Patient remains weak and tired is on nasal cannula oxygen and complains of shortness of breath. Chest x-ray yesterday shows possible CHF History of present illness: Patient is a 76-year-old male seen in renal consultation for end-stage renal disease. He is maintained on hemodialysis on Friday schedule. Patient came to the hospital due to worsening shortness of breath. Patient has severe cardiomyopathy with ejection fraction of 10-15%. Patient went to hemodialysis outpatient yesterday but due to vomiting the treatment was cut short and he was sent to the hospital Objective - Vital Signs Vital signs: Vital Signs Temp 97.6 F 05/04/22 08:00 Pulse 87 05/04/22 09:00 Resp 12 05/04/22 09:00 BP 114/74 05/04/22 09:00 Pulse Ox 90 L 05/04/22 09:00 FiO2 100 05/04/22 00:55 Intake & Output 05/03/22 05/04/22 05/04/22 18:59 06:59 18:59 Intake Total 450 Output Total 0 0 0 Balance 450 0 0 Weight 68.6 kg Intake: Oral 450 Output: Urine 0 0 0 Other: # Bowel Movements 1 On examination awake alert but profoundly weak HEENT exam no JVP neck is supple no facial asymmetry Lungs are significant for an occasional basilar crackle poor air entry Heart sounds unremarkable for any murmur rub gallop Abdomen soft nontender Extremity exam was trace edema Neurologically awake alert profoundly weak - Labs CBC & Chem 7: 05/04/22 06:50 05/04/22 06:50 Labs: Abnormal Lab Results - Last 24 Hours (Table) 05/02/22 05/03/22 05/04/22 Range/Units 23:27 09:03 06:50 RBC 2.93 L (4.30-5.90) m/uL Hgb 10.1 L (13.0-17.5) gm/dL Hct 31.4 L (39.0-53.0) % MCV 107.2 H (80.0-100.0) fL RDW 16.2 H (11.5-15.5) % Plt Count 66 L (150-450) k/uL Macrocytosis Marked A Sodium (137-145) mmol/L BUN (9-20) mg/dL Creatinine (0.66-1.25) mg/dL Glucose (74-99) mg/dL Calcium (8.4-10.2) mg/dL Iron 51 L (65-175) ug/dL TIBC 190 L (228-460) ug/dL Transferrin 136.0 L (204.0-354.0) mg/dL Ferritin 1387.0 H (22.0-322.0) ng/mL Stool Lactoferrin POSITIVE A (NEGATIVE) 05/04/22 Range/Units 06:50 RBC (4.30-5.90) m/uL Hgb (13.0-17.5) gm/dL Hct (39.0-53.0) % MCV (80.0-100.0) fL RDW (11.5-15.5) % Plt Count (150-450) k/uL Macrocytosis Sodium 134 L (137-145) mmol/L BUN 31 H (9-20) mg/dL Creatinine 3.10 H (0.66-1.25) mg/dL Glucose 71 L (74-99) mg/dL Calcium 6.9 L (8.4-10.2) mg/dL Iron (65-175) ug/dL TIBC (228-460) ug/dL Transferrin (204.0-354.0) mg/dL Ferritin (22.0-322.0) ng/mL Stool Lactoferrin (NEGATIVE) Microbiology - Last 24 Hours (Table) 05/02/22 09:03 Blood Culture - Preliminary Blood No Growth after 24 hours 05/02/22 09:12 Blood Culture - Preliminary Blood No Growth after 24 hours 05/02/22 23:27 Stool Culture - Preliminary Stool Assessment and Plan Assessment: Assessment: 1. End-stage renal disease maintained on hemodialysis on Friday schedule. Low blood pressure difficult to ultrafiltrate aggressively 2. Acute hypoxic respiratory failure secondary to volume overload and also concern for pneumonia. 3. Acute on chronic systolic CHF with ejection fraction of 10-15%. 4. 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 5. Anemia of chronic disease. Plan: We will attempt 2.5 L today. Wean FiO2. Check iron studies. Stop Bumex as he is anuric. Hold losartan for systolic blood pressure less than 110.
--- NOTE | 2022-05-04 11:07 | US ---
EXAMINATION TYPE: US gallbladder DATE OF EXAM: 05/04/2022 COMPARISON: CT CLINICAL HISTORY: Distended gallbladder on CT. Abnormal CT TECHNIQUE: Multiple sonographic images of the right upper quadrant are obtained. FINDINGS: EXAM MEASUREMENTS: Liver Length: 12.7 cm Gallbladder Wall: 0.4 cm CBD: 0.6 cm Pancreas: Obscured by bowel gas Liver: Limited visualization, appeared wnl Gallbladder: Distended as visualized on CT, possible small amount of sludge, wall slightly thickened Evidence for sonographic Cat's sign: No CBD: wnl Right Kidney: Surgically absent Incidental finding right pleural effusion as visualized on CT IMPRESSION: Distended gallbladder with no wall thickening or pericholecystic fluid. There is mild sludge within t he dependent portion. The sonographic Cat's sign is negative.
--- NOTE | 2022-05-04 12:18 | P.PN ---
Subjective Progress Note Date: 05/04/22 Principal diagnosis: sob Symptoms has improved. No nausea or vomiting. No diarrhea. Patient states that his abdominal pain has improved. Breathing seems to be easier as well. Objective - Vital Signs Vital signs: Vital Signs Temp 97.6 F 05/04/22 08:00 Pulse 87 05/04/22 09:00 Resp 12 05/04/22 09:00 BP 114/74 05/04/22 09:00 Pulse Ox 90 L 05/04/22 09:00 FiO2 100 05/04/22 00:55 Intake & Output 05/03/22 05/04/22 05/04/22 18:59 06:59 18:59 Intake Total 450 Output Total 0 0 0 Balance 450 0 0 Weight 68.6 kg Intake: Oral 450 Output: Urine 0 0 0 Other: # Bowel Movements 1 - Exam Constitutional: No acute distress, conversant, pleasant Eyes:Anicteric sclerae, moist conjunctiva, no lid-lag, PERRLA, ENMT: Oropharynx clear, no erythema, exudates Neck: Supple, FROM, no masses, or JVD, No carotid bruits, No thyromegaly Lungs: Decreased air entry bilaterally, Clear to percussion, Normal respiratory effort, no accessory muscle use Cardiovascular: Heart regular in rate and rhythm, No murmurs, gallops, or rubs, No peripheral edema Abdominal: Soft, Nontender, no guarding, rebound or rigidity, Normoactive bowel sounds, No hepatomegaly, No splenomegaly, No palpable mass Skin: Normal temperature, tone, texture, turgor, no induration, No subcutaneous nodules, No rash, lesions, No ulcers Extremities: erythema and skin changes in both lower extremities. No digital cyanosis, No clubbing, Pedal pulses intact and symmetrical, Radial pulses intact and symmetrical, No calf tenderness Psychiatric: Alert and oriented to person, place and time, appropriate affect, intact judgement Neuro: Muscles Strength 5/5 in all 4 extremities, Sensation to light touch grossly present throughout, Cranial nerves II-XII grossly intact, no focal sensory deficits - Labs CBC & Chem 7: 05/04/22 06:50 05/04/22 06:50 Labs: Abnormal Lab Results - Last 24 Hours (Table) 05/02/22 05/03/22 05/04/22 Range/Units 23:27 09:03 06:50 RBC 2.93 L (4.30-5.90) m/uL Hgb 10.1 L (13.0-17.5) gm/dL Hct 31.4 L (39.0-53.0) % MCV 107.2 H (80.0-100.0) fL RDW 16.2 H (11.5-15.5) % Plt Count 66 L (150-450) k/uL Macrocytosis Marked A Sodium (137-145) mmol/L BUN (9-20) mg/dL Creatinine (0.66-1.25) mg/dL Glucose (74-99) mg/dL Calcium (8.4-10.2) mg/dL Iron 51 L (65-175) ug/dL TIBC 190 L (228-460) ug/dL Transferrin 136.0 L (204.0-354.0) mg/dL Ferritin 1387.0 H (22.0-322.0) ng/mL Stool Lactoferrin POSITIVE A (NEGATIVE) 05/04/22 Range/Units 06:50 RBC (4.30-5.90) m/uL Hgb (13.0-17.5) gm/dL Hct (39.0-53.0) % MCV (80.0-100.0) fL RDW (11.5-15.5) % Plt Count (150-450) k/uL Macrocytosis Sodium 134 L (137-145) mmol/L BUN 31 H (9-20) mg/dL Creatinine 3.10 H (0.66-1.25) mg/dL Glucose 71 L (74-99) mg/dL Calcium 6.9 L (8.4-10.2) mg/dL Iron (65-175) ug/dL TIBC (228-460) ug/dL Transferrin (204.0-354.0) mg/dL Ferritin (22.0-322.0) ng/mL Stool Lactoferrin (NEGATIVE) Microbiology - Last 24 Hours (Table) 05/02/22 09:12 Blood Culture - Preliminary Blood No Growth after 48 hours 05/02/22 09:03 Blood Culture - Preliminary Blood No Growth after 48 hours 05/02/22 23:27 Stool Culture - Preliminary Stool Assessment and Plan Plan: Acute CHF exacerbation (LVEF 10-15%) Acute on chronic hypoxic respiratory failure BIPAP O2 to keep sats above 92% Pulm and cardio following Currently on dialysis to assist removing fluids. Resume diuretics--currently no urine output monitor vital signs lunchroom monitor Abdominal pain, vomiting and diarrhea, had fever on admission which is currently resolved. Amylase and lipase ok Stool cultures pending, sent for lactoferrin positive Computed tomography scan of the abdomen showed possible ileus as well as distended gallbladder. Patient was seen by general surgery, case was discussed with Dr. Elizabeth who ordered a abdominal ultrasound. It showed distended gallbladder again but no pericholecystic fluid or gallbladder wall thickening. Conservative management is recommended. ESRD on HD left AV fistula , Nephro following On HD Renal diet with fluid restriction 1500 cc /24 hrs Suspected peripheral vascular disease, bilateral feet pain, left more than right Consult vascular surgery Lactic acidosis Resolved Elevated trops, (chronically elevated in ESRD patient , no report of chest pain ) cardiology following Valvular heart disease , with suspected severe aortic valve stenosis cardiology recs Avoid hypotension Thrombocytopenia , denies any bleeding continue to monitor anemia of chronic disease Stable full code DVT PPX mechanical due to thrombocytopenia
--- NOTE | 2022-05-04 12:36 | P.PN ---
Subjective HISTORY OF PRESENTING ILLNESS Patient is a 76-year-old male with history of end-stage renal disease, severe cardiomyopathy EF in the 10-20% range aortic stenosis likely underestimated secondary to low-flow low gradient. Patient did have adjustment in his dialysis today secondary to the holiday weekend. He then went to dialysis yesterday morning however was feeling nauseous and extremely short of breath and therefore only able to run half of his treatment. He then came to the emergency department and received further treatment and was placed on BiPAP. He states after having some of the volume removed he has been feeling better. He admits he does not make much of any urine. He denies any chest pain or pressure. [place] in the area for approximately 8 weeks and has been hospitalized for a total of 3 weeks. He denies any chest pain or pressure. EKG shows sinus rhythm, left axis deviation, no significant ST or T wave abnormalities. Troponin 0.42, 0.74 with previous levels in the 0.2 2.4 range. On presentation he was noted to be hypoxic, 79%. Chest x-ray shows pulmonary congestion and small right-sided pleural effusion. He was seen in ICU and was able to be weaned from BiPAP and currently feels somewhat better. 05/03 Patient seen and examined. Blood pressures borderline 92/56. He did have new onset of nausea yesterday and this morning with some epigastric pain. He denies any fevers or chills. He did have some loose stools however no hematochezia or melena. His breathing has been somewhat better with dialysis. 05/04 Patient seen and examined. Patient states overall he is feeling better. Undergoing dialysis today with goal of 3 L to be taken off. Denies any further abdominal pain. No chest pain. Has a good appetite. Blood pressures borderline however maps mainly in the mid 60s. PHYSICAL EXAMINATION Vital signs reviewed. CONSTITUTIONAL: No apparent distress, chronically ill appearing HEENT: Head is normocephalic. Pupils are equal, round. Sclerae anicteric. Mucous membranes of the mouth are moist. No JVD. No carotid bruit. CHEST EXAMINATION: Decreased breath sounds bilaterally with crackles at bases HEART EXAMINATION: Regular rate and rhythm. S1, S2 heard. +2/6 systolic murmur, no gallops or rub. ABDOMEN: Soft, nontender. Positive bowel sounds. EXTREMITIES: 2+ peripheral pulses, no lower extremity edema and no calf tenderness. NEUROLOGIC EXAMINATION: Patient is awake, alert and oriented x3. ASSESSMENT 1. Acute on chronic systolic heart failure 2. End-stage renal disease 3. Non-STEMI, type II mechanism with no angina and appears related to hypoxia and end-stage renal disease 4. Severe cardiomyopathy EF 10-20% 5. Aortic stenosis likely underestimated secondary to low-flow low gradient 6. Nasuea and epigastric pain, does not appear cardiac in nature PLAN Majority of symptoms appear related to changes in dialysis and has had improvements with hemodialysis. Continue to dialyze patient, undergoing HD today. Continue heart failure regimen with metoprolol and losartan as well as Imdur. No significant angina-type symptoms. 2 previous similar presentations with echoes at that time showing preserved EF and no need to repeat echo. May consider ischemic workup pending patient's progress however this can likely be performed as an outpt. Appears to be progressing well. OK for transfer from ICU Objective - Vital Signs Vital signs: Vital Signs Temp 97.6 F 05/04/22 08:00 Pulse 87 05/04/22 09:00 Resp 12 05/04/22 09:00 BP 114/74 05/04/22 09:00 Pulse Ox 90 L 05/04/22 09:00 FiO2 100 05/04/22 00:55 Intake & Output 05/03/22 05/04/22 05/04/22 18:59 06:59 18:59 Intake Total 450 Output Total 0 0 0 Balance 450 0 0 Weight 68.6 kg Intake: Oral 450 Output: Urine 0 0 0 Other: # Bowel Movements 1 - Labs CBC & Chem 7: 05/04/22 06:50 05/04/22 06:50 Labs: Abnormal Lab Results - Last 24 Hours (Table) 05/03/22 05/04/22 05/04/22 Range/Units 09:03 06:50 06:50 RBC 2.93 L (4.30-5.90) m/uL Hgb 10.1 L (13.0-17.5) gm/dL Hct 31.4 L (39.0-53.0) % MCV 107.2 H (80.0-100.0) fL RDW 16.2 H (11.5-15.5) % Plt Count 66 L (150-450) k/uL Macrocytosis Marked A Sodium 134 L (137-145) mmol/L BUN 31 H (9-20) mg/dL Creatinine 3.10 H (0.66-1.25) mg/dL Glucose 71 L (74-99) mg/dL Calcium 6.9 L (8.4-10.2) mg/dL Iron 51 L (65-175) ug/dL TIBC 190 L (228-460) ug/dL Transferrin 136.0 L (204.0-354.0) mg/dL Ferritin 1387.0 H (22.0-322.0) ng/mL Microbiology - Last 24 Hours (Table) 05/02/22 09:12 Blood Culture - Preliminary Blood No Growth after 48 hours 05/02/22 09:03 Blood Culture - Preliminary Blood No Growth after 48 hours 05/02/22 23:27 Stool Culture - Preliminary Stool
--- NOTE | 2022-05-04 13:19 | P.GSCN ---
History of Present Illness Consult date: 05/04/22 History of present illness: John is a 76-year-old male who has a history of renal failure on dialysis, peripheral arterial disease, heart failure, cardiomyopathy, renal transplantation who was at dialysis began having increasing shortness of breath vomiting and confusion. He was brought to the hospital for this. He also had issues with abdominal pain and vomiting therefore he was fully evaluated here in the ER. While here, he has complaints of left sided foot pain and previous wounds and he has been apparently trying to get into our office to see us but has not done so to this point. We are asked to see him regarding this. Patient states he has had a wound on his left second toe for many months, he has seen wound care and they have tried applying things to his wound. He denies any further workup or evaluation for peripheral arterial disease. He says he has a neuropathy. 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%, history of renal chest and 2 in 1992 from a donor and in 1995 from a living donor, history of neck fracture, history of Covid 19 infection, severe aortic stenosis, anemia of chronic disease History of Any Multi-Drug Resistant Organisms: None Reported Past Surgical History: Appendectomy Additional Past Surgical History / Comment(s): Kidney transplant times 07/28/1992 and 1995 and the patient has a fistula in the left upper extremity Past Anesthesia/Blood Transfusion Reactions: No Reported Reaction Past Psychological History: No Psychological Hx Reported Smoking Status: Former smoker Past Alcohol Use History: Rare Past Drug Use History: None Reported - Past Family History Mother Family Medical History: Cancer Additional Family Medical History / Comment(s): pancreatic cancer Father Family Medical History: CVA/TIA Additional Family Medical History / Comment(s): father of stroke , mother pancreatic cancer Medications and Allergies Home Medications Medication Instructions Recorded Confirmed Type Atorvastatin [Lipitor] 10 mg PO HS 01/29/22 05/01/22 History Cholecalciferol [Vitamin D3 (25 25 mcg PO DAILY 01/29/22 05/01/22 History Mcg = 1000 Iu)] [place]-3/Dha/Epa/Fish Oil [Fish Oil 1 cap PO DAILY 01/29/22 05/01/22 History 1,000 mg Softgel] Ondansetron [Zofran] 4 mg PO DAILY PRN 01/29/22 05/01/22 History Sevelamer Carbonate 800 - 1,600 mg PO DIRECTED 01/29/22 05/01/22 History oxyCODONE-APAP 5-325MG [Percocet 1 tab PO TID PRN 01/29/22 05/01/22 History 5-325 mg] Bumetanide [BUMEX] 2 - 4 mg PO DIRECTED 01/30/22 05/01/22 History Isosorbide Mononitrate ER [Imdur] 30 mg PO DAILY 01/30/22 05/01/22 History Magnesium Oxide [Mag-Ox] 400 mg PO DAILY 01/30/22 05/01/22 History PARoxetine [Paxil] 10 mg PO DAILY 01/30/22 05/01/22 History Losartan [Cozaar] 12.5 mg PO HS #15 tab 03/16/22 05/01/22 Rx Metoprolol Tartrate [Lopressor] 12.5 mg PO DAILY #30 tab 03/16/22 05/01/22 Rx Allopurinol (Unknown Dose) 1 tab PO DIRECTED 05/01/22 05/01/22 History Aspirin 81 mg PO DAILY 05/01/22 05/01/22 History Colchicine [Colcrys] 0.6 mg PO DIRECTED PRN 05/01/22 05/01/22 History Gabapentin [Neurontin] 100 mg PO HS 05/01/22 05/01/22 History Lidocaine-Prilocaine Cream [Emla 1 applic TOPICAL MOWEFR 05/01/22 05/01/22 History Cream 2.5%/2.5%] Midodrine [ProAmatine] 5 - 10 mg PO DIRECTED 05/01/22 05/01/22 History Emy-Catalino 1 tab PO DAILY 05/01/22 05/01/22 History rOPINIRole HCL [Requip] 2 mg PO BID 05/01/22 05/01/22 History Allergies Allergy/AdvReac Type Severity Reaction Status Date / Time enalaprilat [From Vasotec] Allergy Swelling Verified 03/11/22 20:48 lisinopril Allergy Swelling Verified 03/11/22 20:48 Surgical - Exam Vital Signs Temp Pulse Resp BP Pulse Ox 98.3 F 58 L 18 138/81 84 L 11/23/22 09:54 05/01/22 09:54 05/01/22 09:54 05/01/22 09:54 05/01/22 09:54 Gen. is a pleasant operative male on dialysis. In no acute distress. Chronically ill-appearing. HEENT is normal cephalic, atraumatic, heart appears regular. Lungs are diminished but clear. Abdomen is soft, no obvious tenderness to palpation. Extremities show no clubbing, cyanosis or edema. He has palpable radial femoral pulses and popliteal pulses bilaterally. No palpable pedal pulses. On the left second toe there is a callus Which is removed at the bedside, there is a small approximately 2-3 mm wound and some semi-purulent drainage at the level of the toenail. No erythema or drainage otherwise. Results - Labs 05/04/22 06:50 05/04/22 06:50 Abnormal Lab Results - Last 24 Hours (Table) 05/03/22 05/04/22 05/04/22 Range/Units 09:03 06:50 06:50 RBC 2.93 L (4.30-5.90) m/uL Hgb 10.1 L (13.0-17.5) gm/dL Hct 31.4 L (39.0-53.0) % MCV 107.2 H (80.0-100.0) fL RDW 16.2 H (11.5-15.5) % Plt Count 66 L (150-450) k/uL Macrocytosis Marked A Sodium 134 L (137-145) mmol/L BUN 31 H (9-20) mg/dL Creatinine 3.10 H (0.66-1.25) mg/dL Glucose 71 L (74-99) mg/dL Calcium 6.9 L (8.4-10.2) mg/dL Iron 51 L (65-175) ug/dL TIBC 190 L (228-460) ug/dL Transferrin 136.0 L (204.0-354.0) mg/dL Ferritin 1387.0 H (22.0-322.0) ng/mL Microbiology - Last 24 Hours (Table) 05/02/22 09:12 Blood Culture - Preliminary Blood No Growth after 48 hours 05/02/22 09:03 Blood Culture - Preliminary Blood No Growth after 48 hours 05/02/22 23:27 Stool Culture - Preliminary Stool Diabetes panel 05/04/22 Range/Units 06:50 Sodium 134 L (137-145) mmol/L Potassium 4.1 (3.5-5.1) mmol/L Chloride 98 (98-107) mmol/L Carbon Dioxide 28 (22-30) mmol/L BUN 31 H (9-20) mg/dL Creatinine 3.10 H (0.66-1.25) mg/dL Glucose 71 L (74-99) mg/dL Calcium 6.9 L (8.4-10.2) mg/dL Calcium panel 05/04/22 Range/Units 06:50 Calcium 6.9 L (8.4-10.2) mg/dL Pituitary panel 05/04/22 Range/Units 06:50 Sodium 134 L (137-145) mmol/L Potassium 4.1 (3.5-5.1) mmol/L Chloride 98 (98-107) mmol/L Carbon Dioxide 28 (22-30) mmol/L BUN 31 H (9-20) mg/dL Creatinine 3.10 H (0.66-1.25) mg/dL Glucose 71 L (74-99) mg/dL Calcium 6.9 L (8.4-10.2) mg/dL Adrenal panel 05/04/22 Range/Units 06:50 Sodium 134 L (137-145) mmol/L Potassium 4.1 (3.5-5.1) mmol/L Chloride 98 (98-107) mmol/L Carbon Dioxide 28 (22-30) mmol/L BUN 31 H (9-20) mg/dL Creatinine 3.10 H (0.66-1.25) mg/dL Glucose 71 L (74-99) mg/dL Calcium 6.9 L (8.4-10.2) mg/dL Assessment and Plan Assessment: Peripheral arterial disease, likely microvascular Left second toe wound Neuropathy Plan: John was seen and evaluated in the ICU, he likely has infrapopliteal disease as he maintains palpable popliteal pulses but no significant pedal pulses are notified. I do believe he would benefit from podiatry evaluation of his toes and possibly a removal of his toenail. At this time local wound care and will plan to order lower extremity arterial Doppler. Patient seemingly understands plan and is willing to proceed
[2022-05-04] MEDS: SEVELAMER 800 MG TAB PO SCH ×2 (14:36→18:39)
[2022-05-04] MEDS: CHOLECALCIFEROL 25 MCG (1000 IU) TABLET PO SCH (18:39)
[2022-05-04] MEDS: PARoxetine 10 MG TAB PO SCH (18:40)
[2022-05-04] MEDS: MAGNESIUM OXIDE 400 MG TAB PO SCH (18:40)
[2022-05-04] MEDS: PROMETHAZINE 25 MG TAB PO PRN (18:54)
[2022-05-04] MEDS: ATORVASTATIN 10 MG TAB PO SCH (20:01)
[2022-05-04] MEDS: GABAPENTIN 100 MG CAP PO SCH (20:01)
[2022-05-05] MEDS: HEPARIN SODIUM,PORCINE/PF 5,000 UNIT/0.5 ML SYRINGE SQ SCH ×3 (02:12→17:44)
[2022-05-05] MEDS: ISOSORBIDE MONONITRATE ER 30 MG TAB.ER.24H PO SCH ×2 (02:37→09:31)
[2022-05-05] MEDS: ASPIRIN 81 MG PO SCH ×2 (02:37→09:31)
[2022-05-05] MEDS: METOPROLOL TARTRATE 12.5 MG TAB PO SCH ×2 (02:38→09:31)
[2022-05-05] MEDS: LOSARTAN 25 MG TAB PO SCH ×2 (02:38→20:40)
[2022-05-05] MEDS: PROMETHAZINE 25 MG TAB PO PRN ×2 (04:25→20:40)
[2022-05-05 04:28] LABS: Albumin 3.1 g/dL (3.5-5.0); Calcium 7.2 mg/dL (8.4-10.2); Potassium 3.7 mmol/L (3.5-5.1); Total Bilirubin 1.2 mg/dL (0.2-1.3); Total Protein 5.7 g/dL (6.3-8.2)
[2022-05-05 05:11] LABS: Anisocytosis Slight; HCT 32.4 % (39.0-53.0); HGB 10.3 gm/dL (13.0-17.5); Hypochromasia Slight; MCH 33.4 pg (25.0-35.0); MCHC 31.7 g/dL (31.0-37.0); MCV 105.3 fL (80.0-100.0); Macrocytosis Moderate; Mean Platelet Volume 11.5; Platelet Count 79 k/uL (150-450); RBC 3.08 m/uL (4.30-5.90); RDW 16.3 % (11.5-15.5); WBC 5.5 k/uL (3.8-10.6)
[2022-05-05 06:09] LABS: Band Neutrophils % 1 %; Eosinophils # (M) 0.06 k/uL (0-0.7); Lymphocytes # (M) 0.55 k/uL (1.0-4.8); Monocytes # (M) 0.61 k/uL (0-1.0); Neutrophils % (M) 77 %; Nucleated Red Blood Cells 0 /100 WBC (0-0); Total Cells Counted 100
[2022-05-05 06:12] LABS: Poikilocytosis (M) Present
[2022-05-05] MEDS: SEVELAMER 800 MG TAB PO SCH ×3 (06:43→17:44)
--- NOTE | 2022-05-05 07:02 | XR ---
Abdomen. HISTORY: Follow-up ileus. COMPARISON: 05/03/2022. TECHNIQUE: 3 views of the abdomen were obtained including one upright view in 2 supine views. FINDINGS: There is contrast throughout the colon from previous CT of abdomen and pelvis performed on 05/03/2022 bowel gas pattern is nonspecific and there is no evidence of ileus or obstruction. There is an infiltrate in the left lung base. There is no free air beneath the diaphragm. The osseous structures are grossly normal in exception of degenerative disc disease lumbar spine. IMPRESSION: 1. Interval resolution of the previous ileus. There is no free air or obstruction. 2. Left lung base infiltrate consistent with pneumonia or atelectasis.
[2022-05-05] MEDS: MAGNESIUM OXIDE 400 MG TAB PO SCH (09:31)
[2022-05-05] MEDS: CHOLECALCIFEROL 25 MCG (1000 IU) TABLET PO SCH (09:31)
[2022-05-05] MEDS: PARoxetine 10 MG TAB PO SCH (09:33)
--- NOTE | 2022-05-05 10:50 | P.PN ---
Subjective Progress Note Date: 05/05/22 Principal diagnosis: This is a 76-year-old male with ESRD on dialysis Friday. Came in with volume overload. Last dialysis before yesterday 2 L were taken off and again was dialyzed yesterday and 2.5 L were taken off, he tolerated both sessions well this morning he is feeling fairly well. Patient remains weak and tired is on nasal cannula oxygen and complains of shortness of breath. Chest x-ray yesterday shows possible CHF History of present illness: Patient is a 76-year-old male seen in renal consultation for end-stage renal disease. He is maintained on hemodialysis on Friday schedule. Patient came to the hospital due to worsening shortness of breath. Patient has severe cardiomyopathy with ejection fraction of 10-15%. Patient went to hemodialysis outpatient yesterday but due to vomiting the treatment was cut short and he was sent to the hospital Objective - Vital Signs Vital signs: Vital Signs Temp 97.8 F 05/05/22 08:00 Pulse 80 05/05/22 08:00 Resp 17 05/05/22 08:00 BP 110/67 05/05/22 08:00 Pulse Ox 98 05/05/22 08:00 FiO2 100 05/04/22 00:55 Intake & Output 05/04/22 05/05/22 05/05/22 18:59 06:59 18:59 Intake Total 600 Output Total 0 0 Balance 600 0 Weight 65.9 kg Intake: Oral 600 Output: Urine 0 0 Other: # Bowel Movements 1 1 Examination awake alert somewhat slow to respond but oriented HEENT exam no JVP neck is supple no facial asymmetry Lungs are significant for an occasional coarse crackle at bases which clears with cough air entry is fairly good Heart sounds are unremarkable for any murmur rub gallop Abdomen soft nontender Extremity examination no edema Neurologically awake alert oriented but generalized weakness. - Labs CBC & Chem 7: 05/05/22 03:58 05/05/22 03:58 Labs: Abnormal Lab Results - Last 24 Hours (Table) 05/05/22 05/05/22 Range/Units 03:58 03:58 RBC 3.08 L (4.30-5.90) m/uL Hgb 10.3 L (13.0-17.5) gm/dL Hct 32.4 L (39.0-53.0) % MCV 105.3 H (80.0-100.0) fL RDW 16.3 H (11.5-15.5) % Plt Count 79 L (150-450) k/uL Lymphocytes # (Manual) 0.55 L (1.0-4.8) k/uL Sodium 132 L (137-145) mmol/L Chloride 97 L (98-107) mmol/L Creatinine 2.68 H (0.66-1.25) mg/dL Calcium 7.2 L (8.4-10.2) mg/dL Alkaline Phosphatase 148 H (38-126) U/L Total Protein 5.7 L (6.3-8.2) g/dL Albumin 3.1 L (3.5-5.0) g/dL Microbiology - Last 24 Hours (Table) 05/02/22 23:27 Stool Culture - Preliminary Stool 05/02/22 09:12 Blood Culture - Preliminary Blood No Growth after 48 hours 05/02/22 09:03 Blood Culture - Preliminary Blood No Growth after 48 hours Assessment and Plan Assessment: Assessment: 1. End-stage renal disease maintained on hemodialysis on Friday schedule. Low blood pressure difficult to ultrafiltrate aggressively. Had dialysis 2 days in a row Friday and Friday yesterday to and 2-1/2 L ultrafiltration 2. Acute hypoxic respiratory failure secondary to volume overload and also concern for pneumonia. Improved 3. Acute on chronic systolic CHF with ejection fraction of 10-15%. 4. 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 5. Anemia of chronic disease. hg 10.3 6. Chest x-ray shows left lung base infiltrate consistent with pneumonia or atelectasis. 7. Possible cholecystitis gallbladder ultrasound shows dilated gallbladder with no wall thickening with mild sludge and negative Cat's sign. Computed tomography scan on 05/03/2022 showed dilated gallbladder Recommendation 1. Dialysis schedule will be Friday 2. Monitor labs including hemoglobin calcium phosphorus
--- NOTE | 2022-05-05 10:53 | P.PN ---
Subjective Progress Note Date: 05/05/22 Principal diagnosis: Abdominal pain Patient says he is doing better today. He is fatigued. He is hungry. He has had a bowel movement. Abdominal cramps improved. Pain still present in the periumbilical location but better. He would like more food. Ultrasound gallbladder showed mild sludge and mild gallbladder distention. Abdominal x- rays show resolution of the ileus identified on recent CAT scan. Objective - Vital Signs Vital signs: Vital Signs Temp 97.8 F 05/05/22 08:00 Pulse 80 05/05/22 08:00 Resp 17 05/05/22 08:00 BP 110/67 05/05/22 08:00 Pulse Ox 98 05/05/22 08:00 FiO2 100 05/04/22 00:55 Intake & Output 05/04/22 05/05/22 05/05/22 18:59 06:59 18:59 Intake Total 600 Output Total 0 0 Balance 600 0 Weight 65.9 kg Intake: Oral 600 Output: Urine 0 0 Other: # Bowel Movements 1 1 - Exam Abdomen: Soft, minimal mid abdominal tenderness, no rebound or guarding - Labs CBC & Chem 7: 05/05/22 03:58 05/05/22 03:58 Labs: Abnormal Lab Results - Last 24 Hours (Table) 05/05/22 05/05/22 Range/Units 03:58 03:58 RBC 3.08 L (4.30-5.90) m/uL Hgb 10.3 L (13.0-17.5) gm/dL Hct 32.4 L (39.0-53.0) % MCV 105.3 H (80.0-100.0) fL RDW 16.3 H (11.5-15.5) % Plt Count 79 L (150-450) k/uL Lymphocytes # (Manual) 0.55 L (1.0-4.8) k/uL Sodium 132 L (137-145) mmol/L Chloride 97 L (98-107) mmol/L Creatinine 2.68 H (0.66-1.25) mg/dL Calcium 7.2 L (8.4-10.2) mg/dL Alkaline Phosphatase 148 H (38-126) U/L Total Protein 5.7 L (6.3-8.2) g/dL Albumin 3.1 L (3.5-5.0) g/dL Microbiology - Last 24 Hours (Table) 05/02/22 23:27 Stool Culture - Preliminary Stool 05/02/22 09:12 Blood Culture - Preliminary Blood No Growth after 48 hours 05/02/22 09:03 Blood Culture - Preliminary Blood No Growth after 48 hours Assessment and Plan (1) Abdominal pain Narrative/Plan: Patient seems to be doing better at this time. Will advance diet to full liqu ids. Increase activity. Will follow. Current Visit: Yes Status: Acute Code(s): R10.9 - UNSPECIFIED ABDOMINAL PAIN SNOMED Code(s): 75316821
--- NOTE | 2022-05-05 12:11 | P.PN ---
Subjective Progress Note Date: 05/05/22 Principal diagnosis: sob Patient says he is doing better today. No overnight events, he feels very weak. States that he was not able to stand up this morning due to weakness. He is hungry and asking for that to be advanced. He has had a bowel movement yesterday. Still with abdominal cramps but that's improved. Abdominal x-rays show resolution of the ileus identified on recent CAT scan. Objective - Vital Signs Vital signs: Vital Signs Temp 97.9 F 05/05/22 11:20 Pulse 80 05/05/22 11:20 Resp 18 05/05/22 11:20 BP 92/55 05/05/22 11:20 Pulse Ox 95 05/05/22 11:20 FiO2 100 05/04/22 00:55 Intake & Output 05/04/22 05/05/22 05/05/22 18:59 06:59 18:59 Intake Total 600 Output Total 0 0 Balance 600 0 Weight 65.9 kg Intake: Oral 600 Output: Urine 0 0 Other: # Bowel Movements 1 1 - Exam Constitutional: No acute distress, conversant, pleasant Eyes:Anicteric sclerae, moist conjunctiva, no lid-lag, PERRLA, ENMT: Oropharynx clear, no erythema, exudates Neck: Supple, FROM, no masses, or JVD, No carotid bruits, No thyromegaly Lungs: Decreased air entry bilaterally, Clear to percussion, Normal respiratory effort, no accessory muscle use Cardiovascular: Heart regular in rate and rhythm, No murmurs, gallops, or rubs, No peripheral edema Abdominal: Soft, Nontender, no guarding, rebound or rigidity, Normoactive bowel sounds, No hepatomegaly, No splenomegaly, No palpable mass Skin: Normal temperature, tone, texture, turgor, no induration, No subcutaneous nodules, No rash, lesions, No ulcers Extremities: erythema and skin changes in both lower extremities. No digital cyanosis, No clubbing, Pedal pulses intact and symmetrical, Radial pulses intact and symmetrical, No calf tenderness Psychiatric: Alert and oriented to person, place and time, appropriate affect, intact judgement Neuro: Muscles Strength 5/5 in all 4 extremities, Sensation to light touch grossly present throughout, Cranial nerves II-XII grossly intact, no focal sensory deficits - Labs CBC & Chem 7: 05/05/22 03:58 05/05/22 03:58 Labs: Abnormal Lab Results - Last 24 Hours (Table) 05/05/22 05/05/22 Range/Units 03:58 03:58 RBC 3.08 L (4.30-5.90) m/uL Hgb 10.3 L (13.0-17.5) gm/dL Hct 32.4 L (39.0-53.0) % MCV 105.3 H (80.0-100.0) fL RDW 16.3 H (11.5-15.5) % Plt Count 79 L (150-450) k/uL Lymphocytes # (Manual) 0.55 L (1.0-4.8) k/uL Sodium 132 L (137-145) mmol/L Chloride 97 L (98-107) mmol/L Creatinine 2.68 H (0.66-1.25) mg/dL Calcium 7.2 L (8.4-10.2) mg/dL Alkaline Phosphatase 148 H (38-126) U/L Total Protein 5.7 L (6.3-8.2) g/dL Albumin 3.1 L (3.5-5.0) g/dL Microbiology - Last 24 Hours (Table) 05/02/22 09:03 Blood Culture - Preliminary Blood No Growth after 72 hours 05/02/22 09:12 Blood Culture - Preliminary Blood No Growth after 72 hours 05/02/22 23:27 Stool Culture - Preliminary Stool Assessment and Plan Plan: Acute CHF exacerbation (LVEF 10-15%) Acute on chronic hypoxic respiratory failure BIPAP currently off O2 to keep sats above 92% Pulm and cardio following Currently on dialysis to assist removing fluids. 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 Ileus Amylase and lipase normal Computed tomography scan of the abdomen showed possible ileus as well as distended gallbladder. Patient was seen by general surgery, case was discussed with Dr. Elizabeth who ordered a abdominal ultrasound. It showed distended gallbladder again but no pericholecystic fluid or gallbladder wall thickening. Conservative management is recommended. Advancing diet as tolerated General surgery following, ileus seems to be resolving per the last abdominal x- ray done on 05/05. ESRD on HD left AV fistula , Nephro following On HD Renal diet with fluid restriction 1500 cc /24 hrs Suspected peripheral vascular disease, bilateral feet pain, left more than right Consult vascular surgery Lactic acidosis Resolved Elevated trops, (chronically elevated in ESRD patient , no report of chest pain ) cardiology following Valvular heart disease , with suspected severe aortic valve stenosis cardiology recs Avoid hypotension Thrombocytopenia , denies any bleeding continue to monitor anemia of chronic disease Stable General weakness PT and OT full code DVT PPX mechanical due to thrombocytopenia Anticipated Discharge: 1 day Anticipated disposition rehab
--- NOTE | 2022-05-05 14:12 | P.PN ---
Subjective HISTORY OF PRESENTING ILLNESS Patient is a 76-year-old male with history of end-stage renal disease, severe cardiomyopathy EF in the 10-20% range aortic stenosis likely underestimated secondary to low-flow low gradient. Patient did have adjustment in his dialysis today secondary to the holiday weekend. He then went to dialysis yesterday morning however was feeling nauseous and extremely short of breath and therefore only able to run half of his treatment. He then came to the emergency department and received further treatment and was placed on BiPAP. He states after having some of the volume removed he has been feeling better. He admits he does not make much of any urine. He denies any chest pain or pressure. [place] the area for approximately 8 weeks and has been hospitalized for a total of 3 weeks. He denies any chest pain or pressure. EKG shows sinus rhythm, left axis deviation, no significant ST or T wave abnormalities. Troponin 0.42, 0.74 with previous levels in the 0.2 2.4 range. On presentation he was noted to be hypoxic, 79%. Chest x-ray shows pulmonary congestion and small right-sided pleural effusion. He was seen in ICU and was able to be weaned from BiPAP and currently feels somewhat better. 05/03 Patient seen and examined. Blood pressures borderline 92/56. He did have new onset of nausea yesterday and this morning with some epigastric pain. He denies any fevers or chills. He did have some loose stools however no hematochezia or melena. His breathing has been somewhat better with dialysis. 05/04 Patient seen and examined. Patient states overall he is feeling better. Undergoing dialysis today with goal of 3 L to be taken off. Denies any further abdominal pain. No chest pain. Has a good appetite. Blood pressures borderline however maps mainly in the mid 60s. 05/05 Patient seen and examined. Patient transferred up from ICU. Denies any chest pain or pressure. He is eating clear liquid diet. Denies any abdominal pain currently. Blood pressure is borderline 89/56 at its lowest overnight. PHYSICAL EXAMINATION Vital signs reviewed. CONSTITUTIONAL: No apparent distress, chronically ill appearing HEENT: Head is normocephalic. Pupils are equal, round. Sclerae anicteric. Mucous membranes of the mouth are moist. No JVD. No carotid bruit. CHEST EXAMINATION: Decreased breath sounds bilaterally with crackles at bases HEART EXAMINATION: Regular rate and rhythm. S1, S2 heard. +2/6 systolic murmur, no gallops or rub. ABDOMEN: Soft, nontender. Positive bowel sounds. EXTREMITIES: 2+ peripheral pulses, no lower extremity edema and no calf tenderness. NEUROLOGIC EXAMINATION: Patient is awake, alert and oriented x3. ASSESSMENT 1. Acute on chronic systolic heart failure 2. End-stage renal disease 3. Non-STEMI, type II mechanism with no angina and appears related to hypoxia and end-stage renal disease 4. Severe cardiomyopathy EF 10-20% 5. Aortic stenosis likely underestimated secondary to low-flow low gradient 6. Nasuea and epigastric pain, does not appear cardiac in nature. Surgery evaluating PLAN Continue to dialyze patient per nephro Continue heart failure regimen with metoprolol and losartan as well as Imdur. Monitor borderline BP's however given extreme cardiomyopathy ideal MAP 65 No significant angina-type symptoms. 2 previous similar presentations with echoes at that time showing severely decr eased EF and no need to repeat echo. May consider ischemic workup pending patient's progress however this can likely be performed as an outpt. Further abdominal pain workup per surgery, advancing diet Objective - Vital Signs Vital signs: Vital Signs Temp 97.9 F 05/05/22 11:20 Pulse 80 05/05/22 11:20 Resp 18 05/05/22 11:20 BP 92/55 05/05/22 11:20 Pulse Ox 95 05/05/22 11:20 FiO2 100 05/04/22 00:55 Intake & Output 05/04/22 05/05/22 05/05/22 18:59 06:59 18:59 Intake Total 600 Output Total 0 0 Balance 600 0 Weight 65.9 kg Intake: Oral 600 Output: Urine 0 0 Other: # Bowel Movements 1 1 - Labs CBC & Chem 7: 05/05/22 03:58 05/05/22 03:58 Labs: Abnormal Lab Results - Last 24 Hours (Table) 05/05/22 05/05/22 Range/Units 03:58 03:58 RBC 3.08 L (4.30-5.90) m/uL Hgb 10.3 L (13.0-17.5) gm/dL Hct 32.4 L (39.0-53.0) % MCV 105.3 H (80.0-100.0) fL RDW 16.3 H (11.5-15.5) % Plt Count 79 L (150-450) k/uL Lymphocytes # (Manual) 0.55 L (1.0-4.8) k/uL Sodium 132 L (137-145) mmol/L Chloride 97 L (98-107) mmol/L Creatinine 2.68 H (0.66-1.25) mg/dL Calcium 7.2 L (8.4-10.2) mg/dL Alkaline Phosphatase 148 H (38-126) U/L Total Protein 5.7 L (6.3-8.2) g/dL Albumin 3.1 L (3.5-5.0) g/dL Microbiology - Last 24 Hours (Table) 05/02/22 09:03 Blood Culture - Preliminary Blood No Growth after 72 hours 05/02/22 09:12 Blood Culture - Preliminary Blood No Growth after 72 hours 05/02/22 23:27 Stool Culture - Preliminary Stool
--- NOTE | 2022-05-05 15:11 | P.PN ---
Subjective Progress Note Date: 05/05/22 This is a 76-year-old male patient who came into the ED because of worsening shortness of breath. 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 During this current holiday, the patient was switched to dialysis regimen of Friday and Friday. While having his dialysis today, the patient started having some abdominal pain and emesis and dialysis had to be interrupted. The patient also was noted to be short of breath and for that reason the patient was brought in to the hospital for further evaluation. At the time of arrival to the MRSA department, the patient was quite short of breath and hypoxic. He normally uses oxygen at 2 L and he had increase in oxygen requirements. At that point, the patient was placed on BiPAP to support his breathing. At the time of my arrival, the patient was started on a BiPAP and the patient was utilizing BiPAP at a pressure of 12/5 cm of water with an FiO2 of 75%. He was sent to the BiPAP machine. His chest x- ray showed cardiomegaly, Pulmicort after congestion and a recurrent left-sided pleural effusion. He did have some increased edema in lower extremity bilaterally and apparently there is history of weight gain in the order of 8 kg and this patient. The patient reported left ventricular shortness of breath. No fever. No chills. No altered mentation. While in the BiPAP, the patient was able to respond Lasix questions appropriately. His potassium level was at 5.6 with a sodium level of 141, he had an elevated white cell count of 16.6 with a hemoglobin of 12.4 and his BUN was 46 with a creatinine of 4.05. The patient had a blood. That was probably suboptimal. The blood gas showed a pH of 7.36 with a pCO2 of 54 and a pO2 of 35. I believe this was done while him being on a percent FiO2. Current pulse ox is above 90% on the monitor. His proBNP level was 158,000, his LFTs were normal, his Covid 19 testing and influenza screen was negative. His magnesium was at 1.7, phosphorus is 4.3, troponin was at 0.427. Sodium level is at 141. Normal coagulation profile. On 05/02/2022, the patient is doing better compared to yesterday. The patient spent the night on BiPAP at a pressure of 12/6 cm of water and FiO2 is down to 40%. He generating a tidal volume of 700 and his minute ventilation is around 12 L/m. The patient completed hemodialysis yesterday and a total of 1.7 L of fluid was removed. Another session of hemodialysis will be done tomorrow. The chest x-ray was repeated and there is improvement in the volume status and decrease in the size of left-sided pleural effusion. Troponin was 0.7. The potassium level is down to 4.3 with a sodium level of 136 and a BUN of 27 with a creatinine of 2.6. The white cell count is at 8.4 with a hemoglobin of 10.4 and a platelet count of 72. The patient is not producing much of urine output. The patient remains on Bumex. All patient medications have been resumed. He is awake and alert and communicating. Denies having any chest pain. 05/03/2022, I'm seeing the patient for a follow-up. The patient is in the intensive care unit. Noted the patient underwent another session of hemodialysis yesterday with a total of 1.8 of ultrafiltration. Another session will be done today. Currently the patient on 3 L of oxygen by nasal cannula. Overnight, the patient had episodes of nausea and emesis and some vague abdominal pain. He was given Zofran and Phenergan for nausea. He also had some limited diarrhea. Accordingly, stool for C. diff was sent and the results of pending for now. Meanwhile, the patient is hemodynamically stable. He is off the BiPAP for now. His oxygen at 3 L/m cannula. His blood work today shows a sodium level of 1:30 this level of 4.3, current is 99 bicarb 30 BUN is 45 creatinine 3.56 and a white cell count 7.3 with a hemoglobin of 10.3 and a platelet count of 74. Chest x-ray from today showed COPD and cardiac megaly on bilateral lower lobe pulmonary infiltrates and small effusions lung base. The patient also had a flat some of the abdomen that showed nonspecific bowel. Repeat amylase and lipase showed drop in the numbers with a lipase level of 189. Today's evaluation of 05/04/2022, the patient is being seen for a follow-up. The patient is undergoing another session of hemodialysis. Dialysis was done yesterday and another session to be done today. The patient is being also demonstrated on a regular basis. The patient is currently on oxygen at 3 L. No significant respiratory distress. There was some concern of ongoing abdominal pain and some nausea and emesis yesterday. The patient was given Zofran and Phenergan. He was having also some episodic diarrhea. The diarrhea has resolved. Abdominal pain has also resolved. No emesis for now. CAT scan of the abdomen and pelvis was done yesterday and the patient was found to have bilateral pleural effusion. Limited atelectasis in lung bases. Gallbladder was dilated and measures up to 6 cm in size. The biliary ducts were none dilated. There was multilevel lumbar spondylolytic changes. There was dilated mid small bowel without a transition points. Possibility of ileus cannot be completely ruled out. In enervates, GI surgeries on the case. The patient is tolerating a heart healthy diet. The white cell count is at 5 with a hemoglobin of 10.1 and a platelet count of 66. BUN is 31 with a creatinine of 3.1 and sodium is at 134. Stool for C. diff is still not done as the patient's stool was better for him. Otherwise, no other significant events. No pressors. His blood pressure is borderline hypotensive. On 05/05/2022, the patient left intensive care unit and the patient is currently on a medical floor. He is on room air oxygen. No nausea or vomiting or abdominal pain. No dialysis for today. Volume status is stable for now. No other new complaints. Blood pressure is stable. The white cell count of 5.5 with a hemoglobin of 10.3. Platelets 79. Sodium is at 132. BUN is at 20 with a creatinine of 2.6.. The cultures were negative. Flat film of the abdomen showed interval resolution of the previously described ileus. The patient was seen by general surgery. Abdominal cramps improved. He wanted some more fluid. Also of the gallbladder showed sludge and mild distention. Objective - Vital Signs Vital signs: Vital Signs Temp 97.9 F 05/05/22 11:20 Pulse 80 05/05/22 11:20 Resp 18 05/05/22 11:20 BP 92/55 05/05/22 11:20 Pulse Ox 95 05/05/22 11:20 FiO2 100 05/04/22 00:55 Intake & Output 05/04/22 05/05/22 05/05/22 18:59 06:59 18:59 Intake Total 600 Output Total 0 0 Balance 600 0 Weight 65.9 kg Intake: Oral 600 Output: Urine 0 0 Other: # Bowel Movements 1 1 1 - Exam General: Ill appearing, no distress, appears at stated age, the patient is having minimal breathing and at this point, patient is currently on room air oxygen Derm: warm, dry Head: atraumatic, normocephalic, symmetric Eyes: EOMI, no lid lag, anicteric sclera Mouth: no lip lesion, mucus membranes moist Cardiovascular: S1S2 reg, no murmur, positive posterior tibial pulse bilateral, overall heart sounds are quite distant Lungs: Diminished breath sounds bilaterally special left lung base along with dullness to percussion and the patient has crackles in lung base bilaterally. Abdominal: soft, nontender to palpation, no guarding, no appreciable organomegaly Ext: no gross muscle atrophy, 1+ edema, no contractures Neuro: CN II-XI grossly intact, no focal neuro deficits Psych: lethargic, oriented, appropriate affect - Labs CBC & Chem 7: 05/05/22 03:58 05/05/22 03:58 Labs: Abnormal Lab Results - Last 24 Hours (Table) 05/05/22 05/05/22 Range/Units 03:58 03:58 RBC 3.08 L (4.30-5.90) m/uL Hgb 10.3 L (13.0-17.5) gm/dL Hct 32.4 L (39.0-53.0) % MCV 105.3 H (80.0-100.0) fL RDW 16.3 H (11.5-15.5) % Plt Count 79 L (150-450) k/uL Lymphocytes # (Manual) 0.55 L (1.0-4.8) k/uL Sodium 132 L (137-145) mmol/L Chloride 97 L (98-107) mmol/L Creatinine 2.68 H (0.66-1.25) mg/dL Calcium 7.2 L (8.4-10.2) mg/dL Alkaline Phosphatase 148 H (38-126) U/L Total Protein 5.7 L (6.3-8.2) g/dL Albumin 3.1 L (3.5-5.0) g/dL Microbiology - Last 24 Hours (Table) 05/02/22 09:03 Blood Culture - Preliminary Blood No Growth after 72 hours 05/02/22 09:12 Blood Culture - Preliminary Blood No Growth after 72 hours 05/02/22 23:27 Stool Culture - Preliminary Stool Assessment and Plan Plan: Acute hypoxic respiratory failure with obvious signs of fluid overload as the patient had increasing third spacing, peripheral edema, pulmonary vascular congestion and recurrent left pleural effusion. The patient has underwent dialysis 4 since admission. Currently on room air oxygen. Acute BiPAP dependent respiratory failure, recovered currently on room air oxygen Acute on chronic shortness of breath, mostly related to fluid overload/CHF/ pleural effusion. Clinically improved postdialysis Ileus with secondary abdominal pain Nausea and emesis and diarrhea on that investigation. Rule out C. diff colitis. The patient on a combination of Zofran and Phenergan for emesis. Last him of the abdomen is showing nonspecific findings. The GI status is stable and the patient is currently well and asymptomatic. CAT scan of the abdomen was done and the findings were e ssentially nonspecific, questionable ileus. No leukocytosis. LFTs are normal. The gallbladder was dilated. Ultrasound the gallbladder showed distention and sludge. Clinically improved. Tolerating diet. End-stage renal disease, currently on hemodialysis. Reason infection with coronavirus, without coronavirus associated pneumonia. The patient was hospitalized back in March 2022 when he tested positive for Covid 19 on 03/12/2022 and subsequent testing was negative. Prior history of kidney transplant 2 with subsequent failure and the patient is currently on hemodialysis History of CHF, systolic heart failure with an ejection fraction of 15-20% in addition to mild pulmonary hypertension, moderate mitral and tricuspid regurgitation and suspected aortic stenosis and the severity could not be established by the previous echocardiogram History of hyperlipidemia. Prior history of tobacco use. Chronic Thrombocytopenia nausea, abdominal pain with mild elevation of the lipase, rule out underlying pancreatitis Hyperkalemia, potassium level is at 5.6, potassium level improved postdialysis Mild lactic acidosis, recovered and lactic acid level has normalized. Plan Currently on room air oxygen Abdominal pain resolved Pancreatic enzymes are back to normal ileus recovered Patient is doing well. midodrine 10 mg by mouth 3 times a day We will sign off the case. Prognosis on long-term basis is poor based above-mentioned comorbidities.
[2022-05-05] MEDS: oxyCODONE-APAP 10-325MG 1 EACH TAB PO PRN (15:26)
[2022-05-05] MEDS: ATORVASTATIN 10 MG TAB PO SCH (20:40)
[2022-05-05] MEDS: GABAPENTIN 100 MG CAP PO SCH (20:40)
[2022-05-06] MEDS: HEPARIN SODIUM,PORCINE/PF 5,000 UNIT/0.5 ML SYRINGE SQ SCH ×3 (00:12→17:29)
--- NOTE | 2022-05-06 07:44 | P.PN ---
Subjective Progress Note Date: 05/06/22 Patient is a 76-year-old male with end-stage renal disease on hemodialysis, systolic congestive heart failure with ejection fraction 10-20%, severe aortic stenosis, and multiple other comorbid conditions who presented to the ER for difficulty with breathing. On arrival to the ER he was satting 84% on room air and required placement on a BiPAP. Initial laboratory analysis showed hemoglo bin 10.6, platelets 81, creatinine 2.67, and troponin was mildly elevated at 0.74. COVID-19 and influenza testing are negative. BNP was significantly elevated at 158,000 He was admitted for acute exacerbation of congestive heart failure. He was started on diuresis and had an immediate hemodialysis session. Nephrology, cardiology, and pulmonary were consulted. He was admitted to the ICU. BiPAP was able to be weaned by the next morning. He underwent daily hemodialysis. He did develop abdominal pain and nausea. He underwent a computed tomography scan of abdomen and pelvis was found to have an ileus. General surgery was consulted. He was treated conservatively. He continued to tolerate a diet increase. He complained of some left foot pain and vascular surgery was consulted. Imaging: Initial chest x-ray: Pulmonary venous congestion with cardiomegaly and small right-sided pleural effusion CT abdomen and pelvis: Dilated gallbladder suggestive of cholecystitis without dilated ducts, dilated small bowel related to partial junction versus ileus, pleural effusion, cardiomegaly Gallbladder ultrasound: Distended gallbladder with no wall thickening or. Cholecystic fluid, Cat's sign negative General: nontoxic, no distress, appears at stated age Derm: warm, dry, smal 0.25 cm circular wound left second toe without drainage Head: atraumatic, normocephalic, symmetric Eyes: EOMI, no lid lag, anicteric sclera Mouth: no lip lesion, mucus membranes moist Cardiovascular: S1S2 reg, no murmur, positive posterior tibial pulse bilateral, Lungs: CTA bilateral, no rhonchi, no rales , no accessory muscle use Abdominal: soft, nontender to palpation, no guarding, no appreciable orga nomegaly Ext: no gross muscle atrophy, no edema, no contractures Neuro: CN II-XI grossly intact, no focal neuro deficits Psych: Alert, oriented, appropriate affect Assessment/plan: Acute exacerbation of systolic congestive heart failure Severe aortic stenosis Type II non-ST segment elevated myocardial infarction related to hypoxia and end-stage renal disease -Cardiology recommendations: Outpatient ischemic evaluation -Fluid management with hemodialysis -Continue with metoprolol, losartan, and Imdur -Aspirin End-stage renal disease on hemodialysis, prior kidney transplant 2 -Nephrology following -Continue with Renvela -Next hemodialysis is Monday 05/07 Probable PAD with left second toe wound - await lower extremity arterial US ordered by vascular surgery - agree with podiatry recs. Ileus -Gen. surgery recommendations -Increase to full liquid diet Hypertension, controlled - Patient is on medications for heart failure including losartan and Lopressor however due to low blood pressures he does take Midrin as needed with dialysis. -Follow blood pressures Generalized weakness and debility -PT/OT Anemia, likely related to end-stage renal disease Thrombocytopenia, chronic Acute hypoxic respiratory failure, resolved Hyperkalemia, resolved Lactic acidosis, resolved DVT prophylaxis: Heparin Discussed with: patient, nursing Anticipated discharge: in AM Anticipated discharge place: rehab A total of 65 minutes was spent on the care of this complex patient more than 50% of the time was spent in counseling and care coordination. Objective - Vital Signs Vital signs: Vital Signs Temp 96.9 F L 05/06/22 05:00 Pulse 72 05/06/22 05:00 Resp 16 05/06/22 05:00 BP 89/60 05/06/22 05:00 Pulse Ox 99 05/06/22 05:00 FiO2 100 05/04/22 00:55 Intake & Output 05/05/22 05/06/22 05/06/22 18:59 06:59 18:59 Other: # Bowel Movements 1 - Labs CBC & Chem 7: 05/05/22 03:58 05/05/22 03:58 Labs: Microbiology - Last 24 Hours (Table) 05/02/22 09:03 Blood Culture - Preliminary Blood No Growth after 72 hours 05/02/22 09:12 Blood Culture - Preliminary Blood No Growth after 72 hours 05/02/22 23:27 Stool Culture - Preliminary Stool
[2022-05-06] MEDS: MAGNESIUM OXIDE 400 MG TAB PO SCH (09:39)
[2022-05-06] MEDS: CHOLECALCIFEROL 25 MCG (1000 IU) TABLET PO SCH (09:39)
[2022-05-06] MEDS: SEVELAMER 800 MG TAB PO SCH ×3 (09:39→17:29)
[2022-05-06] MEDS: ASPIRIN 81 MG PO SCH (09:39)
[2022-05-06] MEDS: ISOSORBIDE MONONITRATE ER 30 MG TAB.ER.24H PO SCH (09:39)
[2022-05-06] MEDS: PARoxetine 10 MG TAB PO SCH (09:39)
[2022-05-06] MEDS: METOPROLOL TARTRATE 12.5 MG TAB PO SCH (09:39)
[2022-05-06] MEDS: oxyCODONE-APAP 10-325MG 1 EACH TAB PO PRN ×2 (09:43→21:12)
--- NOTE | 2022-05-06 09:58 | P.PN ---
Subjective Patient is a 76-year-old male with history of end-stage renal disease on hemodialysis with previous kidney transplant 2, hyperlipidemia, severe card iomyopathy EF in the 10-20% range aortic stenosis likely underestimated secondary to low-flow low gradient.Follows with Dr. Phillips.We are seeing the patient for congestive heart failure. Patient did have adjustment in his dialysis today secondary to the holiday weekend. He then went to dialysis ye morning however was feeling nauseous and extremely short of breath and therefore only able to run half of his treatment. He then came to the emergency department and received further treatment and was placed on BiPAP. He states after having some of the volume removed he has been feeling better. He admits he does not make much of any urine. Troponin 0.42, 0.74 with previous levels in the 0.2 2.4 range. On presentation he was noted to be hypoxic, 79%. He was initially admitted to the ICU and weaned from BiPAP and transferred to medical floor. 05/06 Patient seen and examined at bedside, has been transferred out of the ICU. Denies any chest pain or pressure. Denies any shortness of breath. Appears euvolemic on exam. He is eating full liquid diet. Being treated for Ileus. Denies any abdominal pain currently. Blood pressure is borderline overnight, this morning 111/69. PHYSICAL EXAMINATION Vital signs reviewed. CONSTITUTIONAL: No apparent distress, chronically ill appearing HEENT: Head is normocephalic. Mucous membranes of the mouth are moist. No JVD CHEST EXAMINATION: Decreased breath sounds bilaterally with crackles at bases HEART EXAMINATION: Regular rate and rhythm. S1, S2 heard. +2/6 systolic murmur, no gallops or rub. ABDOMEN: Soft, nontender. Positive bowel sounds. EXTREMITIES: 2+ peripheral pulses, no lower extremity edema and no calf tenderness. NEUROLOGIC EXAMINATION: Patient is awake, alert and oriented x3. ASSESSMENT 1. Acute on chronic heart failure with reduced ejection fraction 2. End-stage renal disease 3. Non-STEMI, type II mechanism with no angina and appears related to hypoxia and end-stage renal disease 4. Severe cardiomyopathy EF 10-20% 5. Aortic stenosis likely underestimated secondary to low-flow low gradient 6. Nasuea and epigastric pain, does not appear cardiac in nature. Surgery evaluating 7. Ileus PLAN Continue to dialyze patient per nephro Continue heart failure regimen with metoprolol and losartan as well as Imdur. Monitor borderline BP's however given extreme cardiomyopathy ideal MAP 65 No significant angina-type symptoms. 2 previous similar presentations with echoes at that time showing severely decr eased EF and no need to repeat echo. May consider ischemic workup pending patient's progress however this can likely be performed as an outpt. Close follow up outpatient with Dr. Phillips. No further changes from a cardiology perspective we'll follow the patient as needed. Please reconsult if needed. Nurse practitioner note has been reviewed by physician. Signing provider agrees with the documented findings, assessment, and plan of care. Objective - Vital Signs Vital signs: Vital Signs Temp 96.9 F L 05/06/22 05:00 Pulse 89 05/06/22 09:35 Resp 16 05/06/22 05:00 BP 111/69 05/06/22 09:35 Pulse Ox 99 05/06/22 05:00 FiO2 100 05/04/22 00:55 Intake & Output 05/05/22 05/06/22 05/06/22 18:59 06:59 18:59 Other: # Bowel Movements 1 - Labs CBC & Chem 7: 05/05/22 03:58 05/05/22 03:58 Labs: Microbiology - Last 24 Hours (Table) 05/02/22 23:27 Stool Culture - Final Stool 05/02/22 09:03 Blood Culture - Preliminary Blood No Growth after 72 hours 05/02/22 09:12 Blood Culture - Preliminary Blood No Growth after 72 hours
--- NOTE | 2022-05-06 11:09 | P.PN ---
Subjective Progress Note Date: 05/06/22 Principal diagnosis: Chronic foot wound Patient was seen and examined as a follow-up. No acute changes through the night. Patient is going to undergo arterial duplex study. He was up and ambulating with physical therapy. He has been afebrile. Podiatry has been consulted. Objective - Vital Signs Vital signs: Vital Signs Temp 96.9 F L 05/06/22 05:00 Pulse 72 05/06/22 05:00 Resp 16 05/06/22 05:00 BP 89/60 05/06/22 05:00 Pulse Ox 99 05/06/22 05:00 FiO2 100 05/04/22 00:55 Intake & Output 05/05/22 05/06/22 05/06/22 18:59 06:59 18:59 Other: # Bowel Movements 1 - Exam Gen. is a pleasant operative male on dialysis. In no acute distress. Chronically ill-appearing. HEENT is normal cephalic, atraumatic, heart appears regular. Lungs are diminished but clear. Extremities show no clubbing, cyanosis or edema. He has palpable radial femoral pulses and popliteal pulses bilaterally. No palpable pedal pulses. Left toenail was some semi-purulent drainage. - Labs CBC & Chem 7: 05/05/22 03:58 05/05/22 03:58 Labs: Microbiology - Last 24 Hours (Table) 05/02/22 23:27 Stool Culture - Final Stool 05/02/22 09:03 Blood Culture - Preliminary Blood No Growth after 72 hours 05/02/22 09:12 Blood Culture - Preliminary Blood No Growth after 72 hours Assessment and Plan Assessment: 1. Peripheral arterial disease, likely microvascular 2. Left second toe wound 3. Peripheral neuropathy Plan: 1. Continue symptomatic spread of care 2. Await arterial duplex study results 3. No plans for any vascular surgical intervention at this time 4. Recommend outpatient follow-up with vascular surgery Thank you for this consultation.The impression and plan of care has been dictated as directed. I performed a history and examination of this patient, discussed the same with the dictator. I agree with the dictator's note ,documented as a scribe. Any additional findings or plans will be noted.
--- NOTE | 2022-05-06 12:50 | P.PN ---
Subjective Patient is seen for follow-up for end-stage renal disease. He is maintained on a Friday schedule. Patient was admitted with volume overload. He states he is feeling better. Volume status has improved. No significant complaints today. Objective - Vital Signs Vital signs: Vital Signs Temp 98 F 05/06/22 12:39 Pulse 81 05/06/22 12:39 Resp 16 05/06/22 12:39 BP 110/69 05/06/22 12:39 Pulse Ox 93 L 05/06/22 12:39 FiO2 100 05/04/22 00:55 Intake & Output 05/05/22 05/06/22 05/06/22 18:59 06:59 18:59 Other: # Bowel Movements 1 - Exam Awake, comfortable, no acute distress Examination of the heart S1 and S2 Examination of the lungs bilateral breath sounds are heard Abdomen is soft nontender Examination lower extremities shows trace edema bilaterally SALVAGE ENGINEER exam grossly intact - Labs CBC & Chem 7: 05/05/22 03:58 05/05/22 03:58 Labs: Microbiology - Last 24 Hours (Table) 05/02/22 09:12 Blood Culture - Preliminary Blood No Growth after 96 hours 05/02/22 09:03 Blood Culture - Preliminary Blood No Growth after 96 hours 05/02/22 23:27 Stool Culture - Final Stool Assessment and Plan Assessment: 1. End-stage renal disease maintained on hemodialysis on Friday schedule. Low blood pressure difficult to ultrafiltrate aggressively. Had dialysis 2 days in a row Friday and Friday yesterday to and 2-1/2 L ultrafiltration 2. Acute hypoxic respiratory failure secondary to volume overload and also concern for pneumonia. Improved 3. Acute on chronic systolic CHF with ejection fraction of 10-15%. 4. 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 5. Anemia of chronic disease. hg 10.3 6. Chest x-ray shows left lung base infiltrate consistent with pneumonia or atelectasis. Plan: Hemodialysis tomorrow. This can be done as outpatient if patient is discharged today.
--- NOTE | 2022-05-06 13:01 | P.PN ---
Subjective Progress Note Date: 05/06/22 CHIEF COMPLAINT: Abdominal pain HISTORY OF PRESENT ILLNESS: Patient reports no abdominal pain at this time. He denies any nausea or vomiting. He did have a bowel movement yesterday that helped with his pain. Undergoing arterial Doppler studies for his peripheral arterial disease. And is followed by vascular surgery. Tolerating full liquid diet. Afebrile. WBC is 5.5 Hgb 10.3 platelets are 79 sodium 132 potassium 3.7 creatinine 2.68 PHYSICAL EXAM: VITAL SIGNS: Reviewed. GENERAL: Well-developed in no acute distress. ABDOMEN: Soft. Nondistended. Nontender. NEUROLOGIC: Alert and oriented. Cranial nerves II through XII grossly intact. ASSESSMENT: 1. Abdominal pain 2. Ileus 3. Distended gallbladder and sludge noted on ultrasound PLAN: -Continue full liquid diet -Continue supportive care -Increase activity level -Further recommendations forthcoming per surgeon Physician Assembling Fabricator note has been reviewed by physician. Signing provider agrees with the documented findings, assessment, and plan of care. I have personally seen and examined the patient, reviewed the AUTOMATIC HEMMER /PAs history, exam and MDM and agree with the assessment and plan as written. Based on total visit time, I have performed more than 50% of the visit. As above: Patient doing well today. He did have a bowel movement today. No nausea or vomiting. Tolerating full liquids. He is hungry for solid foods. Begin renal diet at this time. We'll follow. Objective - Vital Signs Vital signs: Vital Signs Temp 98 F 05/06/22 12:39 Pulse 81 05/06/22 12:39 Resp 16 05/06/22 12:39 BP 110/69 05/06/22 12:39 Pulse Ox 93 L 05/06/22 12:39 FiO2 100 05/04/22 00:55 Intake & Output 05/05/22 05/06/22 05/06/22 18:59 06:59 18:59 Other: # Bowel Movements 1 - Labs CBC & Chem 7: 05/05/22 03:58 05/05/22 03:58 Labs: Microbiology - Last 24 Hours (Table) 05/02/22 09:12 Blood Culture - Preliminary Blood No Growth after 96 hours 05/02/22 09:03 Blood Culture - Preliminary Blood No Growth after 96 hours 05/02/22 23:27 Stool Culture - Final Stool
[2022-05-06] MEDS: ATORVASTATIN 10 MG TAB PO SCH (20:19)
[2022-05-06] MEDS: GABAPENTIN 100 MG CAP PO SCH (20:19)
[2022-05-06] MEDS: LOSARTAN 25 MG TAB PO SCH (20:19)
[2022-05-06] MEDS: PROMETHAZINE 25 MG TAB PO PRN (21:12)
[2022-05-07] MEDS: HEPARIN SODIUM,PORCINE/PF 5,000 UNIT/0.5 ML SYRINGE SQ SCH ×4 (00:01→23:58)
[2022-05-07 06:24] LABS: HCT 27.9 % (39.0-53.0); HGB 9.2 gm/dL (13.0-17.5); Hypochromasia Slight; MCH 34.6 pg (25.0-35.0); MCV 104.9 fL (80.0-100.0); Macrocytosis Moderate; Mean Platelet Volume 11.8; RBC 2.65 m/uL (4.30-5.90); RDW 15.6 % (11.5-15.5); WBC 4.2 k/uL (3.8-10.6)
[2022-05-07 06:25] LABS: Platelet Count 78 k/uL (150-450)
[2022-05-07 06:45] LABS: African American GFR (CKD) 9 (>60 ml/min/1.73 sqM); Anion Gap 10 mmol/L; Blood Urea Nitrogen 51 mg/dL (9-20); Calcium 6.9 mg/dL (8.4-10.2); Carbon Dioxide 23 mmol/L (22-30); Chloride 96 mmol/L (98-107); Glucose 79 mg/dL (74-99); Non-African American GFR(CKD) 8 (>60 ml/min/1.73 sqM); Potassium 4.7 mmol/L (3.5-5.1); Sodium 129 mmol/L (137-145)
[2022-05-07] MEDS: SEVELAMER 800 MG TAB PO SCH ×3 (08:21→18:03)
[2022-05-07] MEDS: CHOLECALCIFEROL 25 MCG (1000 IU) TABLET PO SCH (08:22)
[2022-05-07] MEDS: ASPIRIN 81 MG PO SCH (08:22)
[2022-05-07] MEDS: MAGNESIUM OXIDE 400 MG TAB PO SCH (08:22)
[2022-05-07] MEDS: ISOSORBIDE MONONITRATE ER 30 MG TAB.ER.24H PO SCH (08:22)
[2022-05-07] MEDS: METOPROLOL TARTRATE 12.5 MG TAB PO SCH (08:22)
[2022-05-07] MEDS: PARoxetine 10 MG TAB PO SCH (08:23)
[2022-05-07] MEDS: oxyCODONE-APAP 10-325MG 1 EACH TAB PO PRN ×2 (08:28→18:04)
--- NOTE | 2022-05-07 11:58 | P.PN ---
Subjective Progress Note Date: 05/07/22 Principal diagnosis: Chronic foot wound Patient was seen and examined as a follow-up. No acute changes through the night. Patient states he's just feeling weak and tired.yesterday he underwent ABIs were not completed due to blood pressure not being allowed taken in the left upper extremity however patient has good waveforms. Objective - Vital Signs Vital signs: Vital Signs Temp 97.6 F 05/07/22 05:11 Pulse 79 05/07/22 05:11 Resp 16 05/07/22 05:11 BP 89/58 05/07/22 05:11 Pulse Ox 96 05/07/22 07:54 FiO2 100 05/04/22 00:55 Intake & Output 05/06/22 05/07/22 05/07/22 18:59 06:59 18:59 Intake Total 240 Balance 240 Weight 66.2 kg 66 kg Intake: Oral 240 Other: # Voids 3 - Exam Gen. is a pleasant operative male on dialysis. In no acute distress. Chronically ill-appearing. HEENT is normal cephalic, atraumatic, heart appears regular. Lungs are diminished but clear. Extremities show no clubbing, cyan osis or edema. He has palpable radial femoral pulses and popliteal pulses bilaterally. No palpable pedal pulses. Left toe with some mild erythema drainage noted today from toenail. great toe tender to palpation. - Labs CBC & Chem 7: 05/07/22 05:43 05/07/22 05:43 Labs: Abnormal Lab Results - Last 24 Hours (Table) 05/07/22 05/07/22 Range/Units 05:43 05:43 RBC 2.65 L (4.30-5.90) m/uL Hgb 9.2 L (13.0-17.5) gm/dL Hct 27.9 L (39.0-53.0) % MCV 104.9 H (80.0-100.0) fL RDW 15.6 H (11.5-15.5) % Plt Count 78 L (150-450) k/uL Sodium 129 L (137-145) mmol/L Chloride 96 L (98-107) mmol/L BUN 51 H (9-20) mg/dL Creatinine 6.27 H (0.66-1.25) mg/dL Calcium 6.9 L (8.4-10.2) mg/dL Microbiology - Last 24 Hours (Table) 05/02/22 09:12 Blood Culture - Preliminary Blood No Growth after 96 hours 05/02/22 09:03 Blood Culture - Preliminary Blood No Growth after 96 hours 05/02/22 23:27 Stool Culture - Final Stool Assessment and Plan Assessment: 1. Peripheral arterial disease, likely microvascular 2. Left second toe wound 3. Peripheral neuropathy Plan: 1. Continue symptomatic spread of care 2. No plans for any vascular surgical intervention at this time 3. Recommend outpatient follow-up with vascular surgery 4. Podiatry consulted to evaluate the left great toe/toenail for possible underlying infection under toenail/toenail removal Thank you for this consultation, we will sign off at this time. Thank you for this consultation.The impression and plan of care has been dictated as directed. Dr. Lundberg I performed a history and examination of this patient, discussed the same with the dictator. I agree with the dictator's note ,documented as a scribe. Any additional findings or plans will be noted.
--- NOTE | 2022-05-07 12:00 | P.PN ---
Subjective Patient is seen for follow-up for end-stage renal disease. He is maintained on a Friday schedule. Patient was admitted with volume overload. He states he is feeling better. Volume status has improved. No significant complaints today. Objective - Vital Signs Vital signs: Vital Signs Temp 97.6 F 05/07/22 05:11 Pulse 79 05/07/22 05:11 Resp 16 05/07/22 05:11 BP 89/58 05/07/22 05:11 Pulse Ox 96 05/07/22 07:54 FiO2 100 05/04/22 00:55 Intake & Output 05/06/22 05/07/22 05/07/22 18:59 06:59 18:59 Intake Total 240 Balance 240 Weight 66.2 kg 66 kg Intake: Oral 240 Other: # Voids 3 - Exam Awake, comfortable, no acute distress Examination of the heart S1 and S2 Examination of the lungs bilateral breath sounds are heard Abdomen is soft nontender Examination lower extremities shows trace edema bilaterally PROCESSING ASSOCIATE exam grossly intact - Labs CBC & Chem 7: 05/07/22 05:43 05/07/22 05:43 Labs: Abnormal Lab Results - Last 24 Hours (Table) 05/07/22 05/07/22 Range/Units 05:43 05:43 RBC 2.65 L (4.30-5.90) m/uL Hgb 9.2 L (13.0-17.5) gm/dL Hct 27.9 L (39.0-53.0) % MCV 104.9 H (80.0-100.0) fL RDW 15.6 H (11.5-15.5) % Plt Count 78 L (150-450) k/uL Sodium 129 L (137-145) mmol/L Chloride 96 L (98-107) mmol/L BUN 51 H (9-20) mg/dL Creatinine 6.27 H (0.66-1.25) mg/dL Calcium 6.9 L (8.4-10.2) mg/dL Microbiology - Last 24 Hours (Table) 05/02/22 23:27 Stool Culture - Final Stool 05/02/22 09:03 Blood Culture - Preliminary Blood No Growth after 120 hours 05/02/22 09:12 Blood Culture - Preliminary Blood No Growth after 120 hours Assessment and Plan Assessment: 1. End-stage renal disease maintained on hemodialysis on Friday schedule. Low blood pressure difficult to ultrafiltrate aggressively. Had dialysis 2 days in a row Friday and Friday yesterday to and 2-1/2 L ultrafiltration 2. Acute hypoxic respiratory failure secondary to volume overload and also concern for pneumonia. Improved 3. Acute on chronic systolic CHF with ejection fraction of 10-15%. 4. 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 5. Anemia of chronic disease. hg 10.3 6. Chest x-ray shows left lung base infiltrate consistent with pneumonia or atelectasis. Plan: Hemodialysis today.
[2022-05-07 12:25] VITALS: BMI 21.4
--- NOTE | 2022-05-07 12:51 | P.CNOR ---
History of Present Illness - [facility] Consult date: 05/07/22 Consult reason: other (left 2nd toe wound) History of present illness: I was asked to consult on this patient regarding a left 2nd toe wound. Patient was a poor historian regarding the issue with the toe. He denies injury and does not recollect a previous wound. States that it is tender to palpation. Patient has been evaluated by vascular sx who did not recommend any intervention. 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%, history of renal chest and 2 in 1992 from a donor and in 1995 from a living donor, history of neck fracture, history of Covid 19 infection, severe aortic stenosis, anemia of chronic disease History of Any Multi-Drug Resistant Organisms: None Reported Past Surgical History: Appendectomy Additional Past Surgical History / Comment(s): Kidney transplant times 07/28/1992 and 1995 and the patient has a fistula in the left upper extremity Past Anesthesia/Blood Transfusion Reactions: No Reported Reaction Past Psychological History: No Psychological Hx Reported Smoking Status: Former smoker Past Alcohol Use History: Rare Past Drug Use History: None Reported - Past Family History Mother Family Medical History: Cancer Additional Family Medical History / Comment(s): pancreatic cancer Father Family Medical History: CVA/TIA Additional Family Medical History / Comment(s): father of stroke , mother pancreatic cancer Medications and Allergies Home Medications Medication Instructions Recorded Confirmed Type Atorvastatin [Lipitor] 10 mg PO HS 01/29/22 05/01/22 History Cholecalciferol [Vitamin D3 (25 25 mcg PO DAILY 01/29/22 05/01/22 History Mcg = 1000 Iu)] [place]-3/Dha/Epa/Fish Oil [Fish Oil 1 cap PO DAILY 01/29/22 05/01/22 History 1,000 mg Softgel] Ondansetron [Zofran] 4 mg PO DAILY PRN 01/29/22 05/01/22 History Sevelamer Carbonate 800 - 1,600 mg PO DIRECTED 01/29/22 05/01/22 History oxyCODONE-APAP 5-325MG [Percocet 1 tab PO TID PRN 01/29/22 05/01/22 History 5-325 mg] Bumetanide [BUMEX] 2 - 4 mg PO DIRECTED 01/30/22 05/01/22 History Isosorbide Mononitrate ER [Imdur] 30 mg PO DAILY 01/30/22 05/01/22 History Magnesium Oxide [Mag-Ox] 400 mg PO DAILY 01/30/22 05/01/22 History PARoxetine [Paxil] 10 mg PO DAILY 01/30/22 05/01/22 History Losartan [Cozaar] 12.5 mg PO HS #15 tab 03/16/22 05/01/22 Rx Metoprolol Tartrate [Lopressor] 12.5 mg PO DAILY #30 tab 03/16/22 05/01/22 Rx Allopurinol (Unknown Dose) 1 tab PO DIRECTED 05/01/22 05/01/22 History Aspirin 81 mg PO DAILY 05/01/22 05/01/22 History Colchicine [Colcrys] 0.6 mg PO DIRECTED PRN 05/01/22 05/01/22 History Gabapentin [Neurontin] 100 mg PO HS 05/01/22 05/01/22 History Lidocaine-Prilocaine Cream [Emla 1 applic TOPICAL MOWEFR 05/01/22 05/01/22 History Cream 2.5%/2.5%] Midodrine [ProAmatine] 5 - 10 mg PO DIRECTED 05/01/22 05/01/22 History Emy-Catalino 1 tab PO DAILY 05/01/22 05/01/22 History rOPINIRole HCL [Requip] 2 mg PO BID 05/01/22 05/01/22 History Allergies Allergy/AdvReac Type Severity Reaction Status Date / Time enalaprilat [From Vasotec] Allergy Swelling Verified 03/11/22 20:48 lisinopril Allergy Swelling Verified 03/11/22 20:48 Physical Examination Osteopathic Statement: *. No significant issues noted on an osteopathic structural exam other than those noted in the History and Physical/Consult. B/L foot exam: Skin: warm, dry and flaky. No open wounds. No pedal hair growth. There is a stable, dry, superficial hemorrhagic bulla on the distal tip of the left 2nd toe. There is no surrounding erythema or edema. No drainage. Area is not soft or boggy. Mildly tender with palpation. The left 2nd toenail is thickened and dystrophic with no loosening of the nail plate Neurological: absent protective sensation B/L feet Vascular: weakly palpable pedal pulses with intact CFT to all digits B/L feet. No peripheral edema MSK: No bony abnormalities or deformities Results - Labs Labs: Abnormal Lab Results - Last 24 Hours (Table) 05/07/22 05/07/22 Range/Units 05:43 05:43 RBC 2.65 L (4.30-5.90) m/uL Hgb 9.2 L (13.0-17.5) gm/dL Hct 27.9 L (39.0-53.0) % MCV 104.9 H (80.0-100.0) fL RDW 15.6 H (11.5-15.5) % Plt Count 78 L (150-450) k/uL Sodium 129 L (137-145) mmol/L Chloride 96 L (98-107) mmol/L BUN 51 H (9-20) mg/dL Creatinine 6.27 H (0.66-1.25) mg/dL Calcium 6.9 L (8.4-10.2) mg/dL Microbiology - Last 24 Hours (Table) 05/02/22 23:27 Stool Culture - Final Stool 05/02/22 09:03 Blood Culture - Preliminary Blood No Growth after 120 hours 05/02/22 09:12 Blood Culture - Preliminary Blood No Growth after 120 hours H & H 05/01/22 05/01/22 05/02/22 Range/Units 10:10 20:04 08:40 Hgb 12.4 L 10.6 L 10.4 L (13.0-17.5) gm/dL Hct 38.9 L 32.3 L 33.0 L (39.0-53.0) % 05/03/22 05/04/22 05/05/22 Range/Units 09:03 06:50 03:58 Hgb 10.3 L 10.1 L 10.3 L (13.0-17.5) gm/dL Hct 32.2 L 31.4 L 32.4 L (39.0-53.0) % 05/07/22 Range/Units 05:43 Hgb 9.2 L (13.0-17.5) gm/dL Hct 27.9 L (39.0-53.0) % Coagulation 05/01/22 Range/Units 10:10 INR 1.0 (<1.2) Result Diagrams: 05/07/22 05:43 05/07/22 05:43 Assessment and Plan Assessment: Type 2 DM with neuropathy and ESRD Plan: The area of concern is dry and stable. There is no need for wound care or any other intervention at this time. The tissue will eventually slough over time. The wound does not appear to be caused by the thickened and dystrophic nail plate, therefore the nail does not require removal Time with Patient: Less than 30
--- NOTE | 2022-05-07 13:15 | P.PN ---
Subjective Progress Note Date: 05/07/22 CHIEF COMPLAINT: Abdominal pain HISTORY OF PRESENT ILLNESS: Patient is sitting up at bedside chair. Patient reports no abdominal pain. He denies any nausea or vomiting. He has been having bowel movements and flatus. He is tolerating a renal diet. Afebrile. WBC 4.2 Hgb 9.2 platelets 78 sodium 129 potassium 4.7 creatinine 6.27. Patient scheduled for hemodialysis today PHYSICAL EXAM: VITAL SIGNS: Reviewed. GENERAL: Well-developed in no acute distress. ABDOMEN: Soft. Nondistended. Nontender. NEUROLOGIC: Alert and oriented. Cranial nerves II through XII grossly intact. ASSESSMENT: 1. Abdominal pain resolved 2. Ileus resolved 3. Distended gallbladder and sludge noted on ultrasound PLAN: -Continue renal diet -Continue supportive care -Increase activity level Physician Topographical Field Assistant note has been reviewed by physician. Signing provider agrees with the documented findings, assessment, and plan of care. I have personally seen and examined the patient, reviewed the BORDER PATROL OFFICER /PAs history, exam and MDM and agree with the assessment and plan as written. Based on total visit time, I have performed more than 50% of the visit. As above: The patient doing well today. Tolerating diet. Had some mild nausea earlier today but that resolved. Denies abdominal pain. We'll sign off. Pleas e call if needed. Objective - Vital Signs Vital signs: Vital Signs Temp 97.9 F 05/07/22 12:45 Pulse 75 05/07/22 12:45 Resp 16 05/07/22 12:45 BP 99/58 05/07/22 12:45 Pulse Ox 98 05/07/22 12:45 FiO2 100 05/04/22 00:55 Intake & Output 05/06/22 05/07/22 05/07/22 18:59 06:59 18:59 Intake Total 240 Balance 240 Weight 66.2 kg 66 kg 66 kg Intake: Oral 240 Other: # Voids 3 - Labs CBC & Chem 7: 05/07/22 05:43 05/07/22 05:43 Labs: Abnormal Lab Results - Last 24 Hours (Table) 05/07/22 05/07/22 Range/Units 05:43 05:43 RBC 2.65 L (4.30-5.90) m/uL Hgb 9.2 L (13.0-17.5) gm/dL Hct 27.9 L (39.0-53.0) % MCV 104.9 H (80.0-100.0) fL RDW 15.6 H (11.5-15.5) % Plt Count 78 L (150-450) k/uL Sodium 129 L (137-145) mmol/L Chloride 96 L (98-107) mmol/L BUN 51 H (9-20) mg/dL Creatinine 6.27 H (0.66-1.25) mg/dL Calcium 6.9 L (8.4-10.2) mg/dL Microbiology - Last 24 Hours (Table) 05/02/22 23:27 Stool Culture - Final Stool 05/02/22 09:03 Blood Culture - Preliminary Blood No Growth after 120 hours 05/02/22 09:12 Blood Culture - Preliminary Blood No Growth after 120 hours
--- NOTE | 2022-05-07 15:18 | P.PN ---
Subjective Progress Note Date: 05/07/22 Patient is a 76-year-old male with end-stage renal disease on hemodialysis, systolic congestive heart failure with ejection fraction 10-20%, severe aortic stenosis, and multiple other comorbid conditions who presented to the ER for difficulty with breathing. On arrival to the ER he was satting 84% on room air and required placement on a BiPAP. Initial laboratory analysis showed hemoglobin 10.6, platelets 81, creatinine 2.67, and troponin was mildly elevated at 0.74. COVID-19 and influenza testing are negative. BNP was significantly elevated at 158,000 He was admitted for acute exacerbation of congestive heart failure. He was started on diuresis and had an immediate hemodialysis session. Nephrology, cardiology, and pulmonary were consulted. He was admitted to the ICU. BiPAP was able to be weaned by the next morning. He underwent daily hemodialysis. He did develop abdominal pain and nausea. He underwent a computed tomography scan of abdomen and pelvis was found to have an ileus. [facility] [place] was consulted. He was treated conservatively. He continued to tolerate a diet increase. He complained of some left foot pain and vascular surgery was consulted. Arterial duplex was ordered which was pending at the time of this note. Podiatry was consulted and recommended no further intervention. Imaging: Initial chest x-ray: Pulmonary venous congestion with cardiomegaly and small right-sided pleural effusion CT abdomen and pelvis: Dilated gallbladder suggestive of cholecystitis without dilated ducts, dilated small bowel related to partial junction versus ileus, pleural effusion, cardiomegaly Gallbladder ultrasound: Distended gallbladder with no wall thickening or cholecystic fluid, Cat's sign negative Patient was seen and examined during dialysis. He reports improvement in his breathing. He has no complaints today. No pain in his left foot. General: nontoxic, no distress, appears at stated age Derm: warm, dry, small 0.25 cm circular wound left second toe without drainage Head: atraumatic, normocephalic, symmetric Eyes: EOMI, no lid lag, anicteric sclera Mouth: no lip lesion, mucus membranes moist Cardiovascular: S1S2 reg, systolic murmur Lungs: CTA bilateral, no rhonchi, no rales , no accessory muscle use Abdominal: soft, nontender to palpation Ext: no gross muscle atrophy, no edema, no contractures Neuro: no focal neuro deficits Psych: Alert, oriented, appropriate affect #Acute exacerbation of systolic congestive heart failure #Severe aortic stenosis #Type II non-ST segment elevated myocardial infarction related to hypoxia and end-stage renal disease -Cardiology recommendations: Outpatient ischemic evaluation -Fluid management with hemodialysis -Continue with metoprolol, losartan, and Imdur -Aspirin #Hyponatremia -Likely related to lasix use -Patient encouraged hydration by mouth -Patient is not volume overloaded -Nephrology on board -Repeat BMP tomorrow morning #End-stage renal disease on hemodialysis, prior kidney transplant 2 -Nephrology following -Continue with Renvela -Continue hemodialysis #Probable PAD with left second toe wound - Await lower extremity arterial US ordered by vascular surgery #Ileus - Gen. surgery recommendations - Renal diet #Hypertension, controlled - Patient is on medications for heart failure including losartan and Lopressor however due to low blood pressures he does take Midodrin as needed with sandy lysis. - Follow blood pressures #Generalized weakness and debility - PT/OT #Anemia, likely related to end-stage renal disease #Thrombocytopenia, chronic Resolved: Acute hypoxic respiratory failure Hyperkalemia Lactic acidosis DVT prophylaxis: Heparin Discussed with: Patient, nursing Anticipated discharge: in AM Objective - Vital Signs Vital signs: Vital Signs Temp 97.9 F 05/07/22 12:45 Pulse 75 05/07/22 12:45 Resp 16 05/07/22 12:45 BP 99/58 05/07/22 12:45 Pulse Ox 98 05/07/22 12:45 FiO2 100 05/04/22 00:55 Intake & Output 05/06/22 05/07/22 05/07/22 18:59 06:59 18:59 Intake Total 240 Balance 240 Weight 66.2 kg 66 kg 66 kg Intake: Oral 240 Other: # Voids 3 - Labs CBC & Chem 7: 05/07/22 05:43 05/07/22 05:43 Labs: Abnormal Lab Results - Last 24 Hours (Table) 05/07/22 05/07/22 Range/Units 05:43 05:43 RBC 2.65 L (4.30-5.90) m/uL Hgb 9.2 L (13.0-17.5) gm/dL Hct 27.9 L (39.0-53.0) % MCV 104.9 H (80.0-100.0) fL RDW 15.6 H (11.5-15.5) % Plt Count 78 L (150-450) k/uL Sodium 129 L (137-145) mmol/L Chloride 96 L (98-107) mmol/L BUN 51 H (9-20) mg/dL Creatinine 6.27 H (0.66-1.25) mg/dL Calcium 6.9 L (8.4-10.2) mg/dL Microbiology - Last 24 Hours (Table) 05/02/22 23:27 Stool Culture - Final Stool 05/02/22 09:03 Blood Culture - Preliminary Blood No Growth after 120 hours 05/02/22 09:12 Blood Culture - Preliminary Blood No Growth after 120 hours
--- NOTE | 2022-05-07 18:04 | P.GSHP ---
History of Present Illness H&P Date: 05/07/22 Chief Complaint: Infected toe left foot 76-year-old male with history of end-stage renal disease, chronic systolic congestive heart failure with ejection fraction of 15-20%, severe aortic stenosis who presents to the emergency department for difficulty breathing. He is a very poor historian, was moaning most of my interview with him, no providing much information. According to the ER he was at dialysis today, when he threw up, he was only able to have 1.5 hours of treatment. When seen in the ER he was receiving hemodialysis. He is on Friday, , and Saturdays s Arrivelydule, however due to the holidays this week he is getting it Friday, Friday, and Friday. He does have a history of 2 renal transplants in 1992 and was also a liver donor in 1995. At dialysis they were concerned that he had an 8 kg weight gain. He has been increasingly short of breath over the last several days according to his son-in-law, and his son-in-law states that he has seemed somewhat delusional and has been speaking to himself over the last couple of days as well. He is normally on 2 L of oxygen at home, however they've had to increase it to 3-4 L due to an increase in difficulty breathing. He was hospitalized here in early March for an acute on chronic CHF exacerbation as well and subsequently required multiple rounds of dialysis as well as diuresis. Patient denied having any pain except in his feet and legs which has been chronic. He denied having fevers or chills. He states he has some abdominal pain and he threw up 2 days ago but currently no pain, no nausea or vomiting. No chest pain. No urinary symptoms. Evaluation in the emergency department revealed heart rate 109, oxygen saturation 84% on room air. white count 16.6, hemoglobin 12.4, platelet count 100, sodium 141, potassium 4.6, chloride 98, bicarbonate 31, BUN 46, creatinine 4.05, glucose 101. Amylase 196, lipase 454, lactic acid 2.1, calcium 7.9, phosphorus 4.3, magnesium 1.7, troponin 0.4-7, proBNP 120235. Abg PH 7.36, Pco2 54, Po2 35. Tested negative for flu and covid in the emergency department. CXR showed pulmonary vascular congestion with cardiomegaly. Patient is being consult did by podiatry for treatment of a possible infection to the left second toe. 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%, history of renal chest and 2 in 1992 from a donor and in 1995 from a living donor, history of neck fracture, history of Covid 19 infection, severe aortic stenosis, anemia of chronic disease History of Any Multi-Drug Resistant Organisms: None Reported Past Surgical History: Appendectomy Additional Past Surgical History / Comment(s): Kidney transplant times 07/28/1992 and 1995 and the patient has a fistula in the left upper extremity Past Anesthesia/Blood Transfusion Reactions: No Reported Reaction Past Psychological History: No Psychological Hx Reported Smoking Status: Former smoker Past Alcohol Use History: Rare Past Drug Use History: None Reported - Past Family History Mother Family Medical History: Cancer Additional Family Medical History / Comment(s): pancreatic cancer Father Family Medical History: CVA/TIA Additional Family Medical History / Comment(s): father of stroke , mother pancreatic cancer Medications and Allergies Home Medications Medication Instructions Recorded Confirmed Type Atorvastatin [Lipitor] 10 mg PO HS 01/29/22 05/01/22 History Cholecalciferol [Vitamin D3 (25 25 mcg PO DAILY 01/29/22 05/01/22 History Mcg = 1000 Iu)] [place]-3/Dha/Epa/Fish Oil [Fish Oil 1 cap PO DAILY 01/29/22 05/01/22 History 1,000 mg Softgel] Ondansetron [Zofran] 4 mg PO DAILY PRN 01/29/22 05/01/22 History Sevelamer Carbonate 800 - 1,600 mg PO DIRECTED 01/29/22 05/01/22 History oxyCODONE-APAP 5-325MG [Percocet 1 tab PO TID PRN 01/29/22 05/01/22 History 5-325 mg] Bumetanide [BUMEX] 2 - 4 mg PO DIRECTED 01/30/22 05/01/22 History Isosorbide Mononitrate ER [Imdur] 30 mg PO DAILY 01/30/22 05/01/22 History Magnesium Oxide [Mag-Ox] 400 mg PO DAILY 01/30/22 05/01/22 History PARoxetine [Paxil] 10 mg PO DAILY 01/30/22 05/01/22 History Losartan [Cozaar] 12.5 mg PO HS #15 tab 03/16/22 05/01/22 Rx Metoprolol Tartrate [Lopressor] 12.5 mg PO DAILY #30 tab 03/16/22 05/01/22 Rx Allopurinol (Unknown Dose) 1 tab PO DIRECTED 05/01/22 05/01/22 History Aspirin 81 mg PO DAILY 05/01/22 05/01/22 History Colchicine [Colcrys] 0.6 mg PO DIRECTED PRN 05/01/22 05/01/22 History Gabapentin [Neurontin] 100 mg PO HS 05/01/22 05/01/22 History Lidocaine-Prilocaine Cream [Emla 1 applic TOPICAL MOWEFR 05/01/22 05/01/22 History Cream 2.5%/2.5%] Midodrine [ProAmatine] 5 - 10 mg PO DIRECTED 05/01/22 05/01/22 History Emy-Catalino 1 tab PO DAILY 05/01/22 05/01/22 History rOPINIRole HCL [Requip] 2 mg PO BID 05/01/22 05/01/22 History Allergies Allergy/AdvReac Type Severity Reaction Status Date / Time enalaprilat [From Vasotec] Allergy Swelling Verified 03/11/22 20:48 lisinopril Allergy Swelling Verified 03/11/22 20:48 Surgical - Exam Vital Signs Temp Pulse Resp BP Pulse Ox 98.3 F 58 L 18 138/81 84 L 05/01/22 09:54 05/01/22 09:54 05/01/22 09:54 05/01/22 09:54 05/01/22 09:54 - Cardiovascular Patient has nonpalpable pedal pulses bilateral the integument is thin there is atrophy of the underlying dermal tissues there is no digital hair bilateral - Integumentary Patient has a pre-ulcerative lesion on the distal aspect of the left second toe this lesion is fluid filled with hematogenous fluid measuring approximately half centimeter diameter there is no extending erythema no extending edema no increased temperature no clinical sign of infection. - Neurologic All epicritic and L2 sensations intact and symmetrical bilateral - Musculoskeletal Decreased range of motion ankle joint subtalar joint and midtarsal joint bilateral hammertoes 2 through 4 bilateral all inverters everters plantar flex dorsiflexors grossly intact symmetrical bilateral Results - Labs 05/07/22 05:43 05/07/22 05:43 Abnormal Lab Results - Last 24 Hours (Table) 05/07/22 05/07/22 Range/Units 05:43 05:43 RBC 2.65 L (4.30-5.90) m/uL Hgb 9.2 L (13.0-17.5) gm/dL Hct 27.9 L (39.0-53.0) % MCV 104.9 H (80.0-100.0) fL RDW 15.6 H (11.5-15.5) % Plt Count 78 L (150-450) k/uL Sodium 129 L (137-145) mmol/L Chloride 96 L (98-107) mmol/L BUN 51 H (9-20) mg/dL Creatinine 6.27 H (0.66-1.25) mg/dL Calcium 6.9 L (8.4-10.2) mg/dL Microbiology - Last 24 Hours (Table) 05/02/22 23:27 Stool Culture - Final Stool 05/02/22 09:03 Blood Culture - Preliminary Blood No Growth after 120 hours 05/02/22 09:12 Blood Culture - Preliminary Blood No Growth after 120 hours Diabetes panel 05/07/22 Range/Units 05:43 Sodium 129 L (137-145) mmol/L Potassium 4.7 (3.5-5.1) mmol/L Chloride 96 L (98-107) mmol/L Carbon Dioxide 23 (22-30) mmol/L BUN 51 H (9-20) mg/dL Creatinine 6.27 H (0.66-1.25) mg/dL Glucose 79 (74-99) mg/dL Calcium 6.9 L (8.4-10.2) mg/dL Calcium panel 05/07/22 Range/Units 05:43 Calcium 6.9 L (8.4-10.2) mg/dL Pituitary panel 05/07/22 Range/Units 05:43 Sodium 129 L (137-145) mmol/L Potassium 4.7 (3.5-5.1) mmol/L Chloride 96 L (98-107) mmol/L Carbon Dioxide 23 (22-30) mmol/L BUN 51 H (9-20) mg/dL Creatinine 6.27 H (0.66-1.25) mg/dL Glucose 79 (74-99) mg/dL Calcium 6.9 L (8.4-10.2) mg/dL Adrenal panel 05/07/22 Range/Units 05:43 Sodium 129 L (137-145) mmol/L Potassium 4.7 (3.5-5.1) mmol/L Chloride 96 L (98-107) mmol/L Carbon Dioxide 23 (22-30) mmol/L BUN 51 H (9-20) mg/dL Creatinine 6.27 H (0.66-1.25) mg/dL Glucose 79 (74-99) mg/dL Calcium 6.9 L (8.4-10.2) mg/dL Assessment and Plan Assessment: Hematoma injury without infection left second toe with peripheral arterial disease Plan: Exam. Review of patient's past medical history. This lesion appears to be a hematoma on the distal aspect of the left second toe. Considering the patient systemic condition and vascular status be best to treat this lesion with precaution. Therefore no debridement or drainage and hematoma was performed. Instead we will provide topical protection and support to prevent infection. Hopefully this lesion resolves without complication. Orders written for application of Triple Antibiotic to the lesion topically cover loosely with a dry sterile dressing. Patient is to wear a surgical shoe to offload the area. He is not to wear street shoes. We will follow the patient in the clinic after discharge thank you for this consult
[2022-05-07] MEDS: BACITRACIN OINT 1 EACH PACKET TOPICAL SCH (18:28)
[2022-05-07] MEDS: LOSARTAN 25 MG TAB PO SCH (20:23)
[2022-05-07] MEDS: ATORVASTATIN 10 MG TAB PO SCH (20:24)
[2022-05-07] MEDS: GABAPENTIN 100 MG CAP PO SCH (20:24)
[2022-05-07] MEDS: PROMETHAZINE 25 MG TAB PO PRN (21:07)
[2022-05-08] MEDS: PARoxetine 10 MG TAB PO SCH (08:27)
[2022-05-08] MEDS: oxyCODONE-APAP 10-325MG 1 EACH TAB PO PRN ×2 (08:27→14:02)
[2022-05-08] MEDS: ISOSORBIDE MONONITRATE ER 30 MG TAB.ER.24H PO SCH (08:28)
[2022-05-08] MEDS: MAGNESIUM OXIDE 400 MG TAB PO SCH (08:28)
[2022-05-08] MEDS: METOPROLOL TARTRATE 12.5 MG TAB PO SCH (08:28)
[2022-05-08] MEDS: CHOLECALCIFEROL 25 MCG (1000 IU) TABLET PO SCH (08:29)
[2022-05-08] MEDS: ASPIRIN 81 MG PO SCH (08:29)
[2022-05-08] MEDS: SEVELAMER 800 MG TAB PO SCH ×2 (08:29→14:02)
[2022-05-08] MEDS: BACITRACIN OINT 1 EACH PACKET TOPICAL SCH (08:29)
[2022-05-08] MEDS: HEPARIN SODIUM,PORCINE/PF 5,000 UNIT/0.5 ML SYRINGE SQ SCH ×2 (08:29→15:37)
[2022-05-08 08:59] LABS: Anion Gap 12.1 mmol/L (10.00-18.00); BUN/Creat Ratio 6.1 Ratio (12.00-20.00); Blood Urea Nitrogen 23.8 mg/dL (9.0-27.0); Calcium 7.5 mg/dL (8.7-10.3); Carbon Dioxide 24.9 mmol/L (20.0-27.5); Non-African American GFR(CKD) 13.8 (60.0-200.0); Potassium 4.1 mmol/L (3.5-5.5)
[2022-05-08 09:49] LABS: HCT 26.2 % (39.6-50.0); HGB 8.3 g/dL (13.0-17.0); MCH 33.3 pg (27.0-32.0); MCHC 31.7 g/dL (32.0-37.0); MCV 105.2 fL (80.0-97.0); Mean Platelet Volume 13.7 fL (9.5-12.2); NRBC Per 100 WBC 0 /100 WBCS (0.0-0.0); Platelet Count 97 X 10*3/uL (140-440); RBC 2.49 X 10*6/uL (4.40-5.60); RDW 16.4 % (11.5-14.5); WBC 2.94 X 10*3/uL (4.50-10.00)
[2022-05-08 09:50] LABS: Macrocytosis (M) 2+
--- NOTE | 2022-05-08 10:15 | P.DS ---
Providers Date of admission: 05/01/22 11:48 Expected date of discharge: 05/08/22 Attending physician: Nandini Cruz MD Consults: 05/01/22 11:56 Consult Physician Stat Consulting Provider: Josse Byrnes Consult Reason/Comments: dyspnea Do you want consulting provider notified?: Already Contacted Consult Physician Urgent Consulting Provider: Raymundo Garcia Consult Reason/Comments: crf, dyspnea, did not finish dialysis Do you want consulting provider notified?: Yes 05/01/22 11:57 Consult Physician Urgent Consulting Provider: Kit Saucedo Consult Reason/Comments: dyspnea, eval for chf Do you want consulting provider notified?: Yes 05/04/22 08:42 Consult Physician Routine Consulting Provider: Shaw Elizabeth Consult Reason/Comments: fermin Do you want consulting provider notified?: Yes 05/04/22 12:09 Consult Physician Urgent Consulting Provider: Opal Lozada Consult Reason/Comments: y Do you want consulting provider notified?: Yes 05/07/22 11:14 Consult Physician Routine Consulting Provider: Rylan Crum Consult Reason/Comments: infected toenail, possible removal Do you want consulting provider notified?: Yes Primary care physician: Fransisco Pereira [facility] Hospital Course: Patient is a 76-year-old male with end-stage renal disease on hemodialysis, systolic congestive heart failure with ejection fraction 10-20%, severe aortic stenosis, and multiple other comorbid conditions who presented to the ER for difficulty with breathing. On arrival to the ER he was satting 84% on room air and required placement on a BiPAP. Initial laboratory analysis showed hemoglobin 10.6, platelets 81, creatinine 2.67, and troponin was mildly elevated at 0.74. COVID-19 and influenza testing are negative. BNP was significantly elevated at 158,000 He was admitted for acute exacerbation of congestive heart failure. He was started on diuresis and had an immediate hemodialysis session. Nephrology, cardiology, and pulmonary were consulted. He was admitted to the ICU. BiPAP was able to be weaned by the next morning. He underwent daily hemodialysis. He did develop abdominal pain and nausea. He underwent a computed tomography scan of abdomen and pelvis was found to have an ileus. General surgery was consulted. He was treated conservatively. He continued to tolerate a diet increase. He complained of some left foot pain and vascular surgery was consulted. Arterial duplex was ordered which was pending at the time of this note. Podiatry was consulted and recommended conservative management. PT and OT was consulted and recommended SNF. Patient was accepted to [facility]. Imaging: Initial chest x-ray: Pulmonary venous congestion with cardiomegaly and small right-sided pleural effusion CT abdomen and pelvis: Dilated gallbladder suggestive of cholecystitis without dilated ducts, dilated small bowel related to partial junction versus ileus, pleural effusion, cardiomegaly Gallbladder ultrasound: Distended gallbladder with no wall thickening or cholecystic fluid, Cat's sign negative Other pertient studies include arterial duplex Patient was seen and examined during dialysis. He reports improvement in his breathing. He has no complaints today. No pain in his left foot. General: nontoxic, no distress, appears at stated age Derm: warm, dry, small 0.25 cm circular wound left second toe without drainage Head: atraumatic, normocephalic, symmetric Eyes: EOMI, no lid lag, anicteric sclera Mouth: no lip lesion, mucus membranes moist Cardiovascular: S1S2 reg, systolic murmur Lungs: CTA bilateral, no rhonchi, no rales , no accessory muscle use Abdominal: soft, nontender to palpation Ext: no gross muscle atrophy, no edema, no contractures Neuro: no focal neuro deficits Psych: Alert, oriented, appropriate affect Discharge Diagnosis: #Acute exacerbation of systolic congestive heart failure #Severe aortic stenosis #Type II non-ST segment elevated myocardial infarction related to hypoxia and end-stage renal disease #Probable PAD with left second toe wound #Ileus #Hypertension, controlled #Generalized weakness and debility #Anemia, likely related to end-stage renal disease #Thrombocytopenia, chronic Resolved: Acute hypoxic respiratory failure Hyperkalemia Lactic acidosis Hyponatremia Patient will be discharged to [facility] with the following instructions: Diet: Renal Restart hemodialysis on a Friday, Friday, Friday schedule. Wound care instructions for L toe wound: Bacitracin twice a day. Follow up with your PCP within 1-2 days of discharge. Follow up with Podiatry within 1 week of discharge. Follow up with Vascular surgery within 1 week of discharge. Follow up with Cardiology within 1 week of discharge. Follow up with Nephrology within 1 week of discharge. This complex discharge took 37 minutes to complete. Patient Condition at Discharge: Stable Plan - Discharge Summary Discharge Rx Participant: Yes New Discharge Prescriptions: Continue Ondansetron [Zofran] 4 mg PO DAILY PRN PRN Reason: Nausea Atorvastatin [Lipitor] 10 mg PO HS Cholecalciferol [Vitamin D3 (25 Mcg = 1000 Iu)] 25 mcg PO DAILY Magnesium Oxide [Mag-Ox] 400 mg PO DAILY PARoxetine [Paxil] 10 mg PO DAILY Metoprolol Tartrate [Lopressor] 12.5 mg PO DAILY #30 tab Aspirin 81 mg PO DAILY Emy-Catalino 1 tab PO DAILY Sevelamer Carbonate 800 - 1,600 mg PO DIRECTED [place]-3/Dha/Epa/Fish Oil [Fish Oil 1,000 mg Softgel] 1 cap PO DAILY Isosorbide Mononitrate ER [Imdur] 30 mg PO DAILY Losartan [Cozaar] 12.5 mg PO HS #15 tab Midodrine [ProAmatine] 5 - 10 mg PO DIRECTED rOPINIRole HCL [Requip] 2 mg PO BID Lidocaine-Prilocaine Cream [Emla Cream 2.5%/2.5%] 1 applic TOPICAL MOWEFR oxyCODONE-APAP 5-325MG [Percocet 5-325 mg] 1 tab PO TID PRN #9 tab PRN Reason: Pain Gabapentin [Neurontin] 100 mg PO HS #3 cap Changed Bumetanide [BUMEX] 2 mg PO BID #0 Discontinued Allopurinol (Unknown Dose) 1 tab PO DIRECTED Colchicine [Colcrys] 0.6 mg PO DIRECTED PRN PRN Reason: gout Discharge Medication List Atorvastatin [Lipitor] 10 mg PO HS 01/29/22 [History] Cholecalciferol [Vitamin D3 (25 Mcg = 1000 Iu)] 25 mcg PO DAILY 01/29/22 [History] [place]-3/Dha/Epa/Fish Oil [Fish Oil 1,000 mg Softgel] 1 cap PO DAILY 01/29/22 [History] Ondansetron [Zofran] 4 mg PO DAILY PRN 01/29/22 [History] Sevelamer Carbonate 800 - 1,600 mg PO DIRECTED 01/29/22 [History] Isosorbide Mononitrate ER [Imdur] 30 mg PO DAILY 01/30/22 [History] Magnesium Oxide [Mag-Ox] 400 mg PO DAILY 01/30/22 [History] PARoxetine [Paxil] 10 mg PO DAILY 01/30/22 [History] Losartan [Cozaar] 12.5 mg PO HS #15 tab 03/16/22 [Rx] Metoprolol Tartrate [Lopressor] 12.5 mg PO DAILY #30 tab 03/16/22 [Rx] Aspirin 81 mg PO DAILY 05/01/22 [History] Lidocaine-Prilocaine Cream [Emla Cream 2.5%/2.5%] 1 applic TOPICAL MOWEFR 05/01/22 [History] Midodrine [ProAmatine] 5 - 10 mg PO DIRECTED 05/01/22 [History] Emy-Catalino 1 tab PO DAILY 05/01/22 [History] rOPINIRole HCL [Requip] 2 mg PO BID 05/01/22 [History] Bumetanide [BUMEX] 2 mg PO BID #0 05/08/22 [Rx] Gabapentin [Neurontin] 100 mg PO HS #3 cap 05/08/22 [Rx] oxyCODONE-APAP 5-325MG [Percocet 5-325 mg] 1 tab PO TID PRN #9 tab 05/08/22 [Rx] Follow up Appointment(s)/Referral(s): Fransisco Pereira MD [Primary Care Provider] - 1-2 days [facility] [NON-STAFF] - Mj Phillips MD [STAFF PHYSICIAN] - 1 Week (please make appt before dc ) Rylan Crum DPM [STAFF PHYSICIAN] - 1 Week Gloria Rios MD [STAFF PHYSICIAN] - 1 Week Activity/Diet/Wound Care/Special Instructions: Diet: Renal Restart hemodialysis on a Friday, Friday, Friday schedule. Wound care instructions for L toe wound: Bacitracin twice a day. Follow up with your PCP within 1-2 days of discharge. Follow up with Podiatry within 1 week of discharge. Follow up with Vascular surgery within 1 week of discharge. Follow up with Cardiology within 1 week of discharge. Follow up with Nephrology within 1 week of discharge. Discharge Disposition: TRANSFER TO SNF/ECF
[2022-05-08 13:16] VITALS: BP 95/60; PULSE 70; RESP 18; TEMP 97.9
--- NOTE | 2022-05-08 15:04 | US ---
EXAMINATION TYPE: US arterial LE multi level DATE OF EXAM: 05/06/2022 9:41 AM CLINICAL HISTORY: nonpalpable DP pulses. Doppler Waveforms: Right: Monophasic Left: Monophasic Ankle-Brachial Indices: Right: 1.2 Left: Non-compressible Toe Brachial Indices: Right: 0.42 Left: 0.31 Loss of phasicity bilaterally is nonspecific. IMPRESSION: Nondiagnostic left ENZO. Normal right ENZO. Diminished bilateral TBI's consistent with at least mild peripheral arterial disease in the bilateral feet. Further workup and follow-up advised.
--- NOTE | 2022-05-09 07:35 | P.PN ---
Subjective Patient is seen for follow-up for end-stage renal disease. He is maintained on a Friday schedule. Patient was admitted with volume overload. He states he is feeling better. Volume status has improved. No significant complaints today. Objective - Vital Signs Vital signs: Vital Signs Temp 97.9 F 05/08/22 13:00 Pulse 70 05/08/22 13:00 Resp 18 05/08/22 13:00 BP 95/60 05/08/22 13:00 Pulse Ox 100 05/08/22 13:00 FiO2 100 05/04/22 00:55 - Exam Awake, comfortable, no acute distress Examination of the heart S1 and S2 Examination of the lungs bilateral breath sounds are heard Abdomen is soft nontender Examination lower extremities shows trace edema bilaterally BALLOON SANDER exam grossly intact - Labs CBC & Chem 7: 05/08/22 03:47 05/08/22 03:47 Labs: Abnormal Lab Results - Last 24 Hours (Table) 05/08/22 05/08/22 Range/Units 03:47 03:47 WBC 2.94 L (4.50-10.00) X 10*3/uL RBC 2.49 L (4.40-5.60) X 10*6/uL Hgb 8.3 L (13.0-17.0) g/dL Hct 26.2 L (39.6-50.0) % MCV 105.2 H (80.0-97.0) fL MCH 33.3 H (27.0-32.0) pg MCHC 31.7 L (32.0-37.0) g/dL RDW 16.4 H (11.5-14.5) % Plt Count 97 L (140-440) X 10*3/uL Plt Count Comment DECREASED A MPV 13.7 H (9.5-12.2) fL Creatinine 3.9 H (0.6-1.5) mg/dL Est GFR (CKD-EPI)AfAm 16.0 L (60.0-200.0) Est GFR (CKD-EPI)NonAf 13.8 L (60.0-200.0) BUN/Creatinine Ratio 6.10 L (12.00-20.00) Ratio Calcium 7.5 L (8.7-10.3) mg/dL Microbiology - Last 24 Hours (Table) 05/02/22 09:03 Blood Culture - Final Blood No Growth after 144 hours 05/02/22 09:12 Blood Culture - Final Blood No Growth after 144 hours Assessment and Plan Assessment: 1. End-stage renal disease maintained on hemodialysis on Friday schedule. Low blood pressure difficult to ultrafiltrate aggressively. Had dialysis 2 days in a row Friday and Friday yesterday to and 2-1/2 L ultrafiltration 2. Acute hypoxic respiratory failure secondary to volume overload and also concern for pneumonia. Improved 3. Acute on chronic systolic CHF with ejection fraction of 10-15%. 4. 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 5. Anemia of chronic disease. hg 10.3 6. Chest x-ray shows left lung base infiltrate consistent with pneumonia or atelectasis. Plan: Hemodialysis in am
== END 2022-05-08 17:21 | DRG 280 ==
LOC: EC 09:54 → 2SICU 11:48 → 5NMEDONC 05-05 08:35
PROVIDERS: ADMIT Internal Medicine; ATTEND Internal Medicine
PROC: 5A09357 Assistance with Respiratory Ventilation, Less than 24 Consecutive Hours, Continuous Positive Airway Pressure (ICD-10-PCS; 2022-05-01)
PROC: 5A1D70Z Performance of Urinary Filtration, Intermittent, Less than 6 Hours Per Day (ICD-10-PCS; principal; 2022-05-02)
DX: I13.2 Hypertensive heart and chronic kidney disease with heart failure and with stage 5 chronic kidney disease, or end stage renal disease (principal); I21.A1 Myocardial infarction type 2; I50.23 Acute on chronic systolic (congestive) heart failure; J96.21 Acute and chronic respiratory failure with hypoxia; N18.6 End stage renal disease; E87.1 Hypo-osmolality and hyponatremia; E87.20 Acidosis, unspecified; J98.11 Atelectasis; K56.7 Ileus, unspecified; T86.12 Kidney transplant failure; E11.40 Type 2 diabetes mellitus with diabetic neuropathy, unspecified; E11.51 Type 2 diabetes mellitus with diabetic peripheral angiopathy without gangrene; S90.122A Contusion of left lesser toe(s) without damage to nail, initial encounter; D63.1 Anemia in chronic kidney disease; D69.6 Thrombocytopenia, unspecified; J44.9 Chronic obstructive pulmonary disease, unspecified; I95.9 Hypotension, unspecified; Z99.81 Dependence on supplemental oxygen; E11.22 Type 2 diabetes mellitus with diabetic chronic kidney disease; Z20.822 Contact with and (suspected) exposure to COVID-19; Z99.2 Dependence on renal dialysis; I42.9 Cardiomyopathy, unspecified; E83.9 Disorder of mineral metabolism, unspecified; R53.81 Other malaise; E78.5 Hyperlipidemia, unspecified; E87.5 Hyperkalemia; L60.3 Nail dystrophy; K82.8 Other specified diseases of gallbladder; Z86.16 Personal history of COVID-19; Z86.73 Personal history of transient ischemic attack (TIA), and cerebral infarction without residual deficits; Z79.82 Long term (current) use of aspirin; Z87.891 Personal history of nicotine dependence; Z79.899 Other long term (current) drug therapy; Z88.8 Allergy status to other drugs, medicaments and biological substances; I08.3 Combined rheumatic disorders of mitral, aortic and tricuspid valves
CPT/HCPCS: 36415; 36600; 71045; 71046; 74018; 74019; 74177; 76705; 80048; 80053; 82150; 82728; 82805; 83540; 83550; 83605; 83630; 83690; 83735; 83880; 84100; 84484; 85025; 85027; 85610; 85730; 87040; 87045; 87046; 87502; 87635; 90935; 93005; 93923; 94640; 94660; 94760; 96374; 99291

== ENCOUNTER 2022-06-03 01:02 | Inpatient (IN) | payer MEDICARE, OTHER ==
[2022-06-03] MEDS ORDERED: ONDANSETRON 4 MG/2 ML VIAL IVP STA (01:06)
[2022-06-03 02:21] LABS: Calcium 8.2 mg/dL (8.4-10.2); Magnesium 1.5 mg/dL (1.6-2.3); Potassium 4.1 mmol/L (3.5-5.1); Total Bilirubin 0.9 mg/dL (0.2-1.3); Total Protein 7.2 g/dL (6.3-8.2)
--- NOTE | 2022-06-03 02:21 | CT ---
EXAMINATION TYPE: CT abdomen pelvis wo con DATE OF EXAM: 06/03/2022 COMPARISON: 05/03/2022 HISTORY: Abdominal pain CT DLP: mGycm Automated exposure control for dose reduction was used. Images obtained from the diaphragm to the floor the pelvis with no contrast. There is mild right pleural effusion. Heart is enlarged. No pericardial effusion. There is some inter stitial density and subsegmental atelectasis at the posterior lung bases. The gallbladder is dilated and measures 6.5 cm in diameter. The bowel is nondilated. Spleen is intact . There is no pancreatic mass. The stomach is intact. No discrete liver mass. There is no adrenal mass. There clips apparently from bilateral nephrectomy. Abdominal aorta is ather omatous. 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 There is 2 cm cortical cyst lower pole of the transplant kidney. No hydronephrosis. The bladder distends smoothly. There is no free fluid in the pe lvis. There is prostate calcification. No inguinal hernia. There is no mesenteric edema. No ascites or free air. No evidence of a bowel obstruction. Lumbar spin e is intact. No compression fracture. There is multilevel vacuum disks. The bony pelvis is intact. Th e hip joints are intact. There is moderate atherosclerotic vascular calcification in the abdomen and pelvis. IMPRESSION: There is a mild right pleural effusion. There is some interstitial infiltrate and atelectasis at the posterior lung bases. There is improvement in the lung abnormalities and pleural fluid compared to ol d exam. Cardiomegaly. There is dilated gallbladder suggestive of cholecystitis and gallbladder increased in d iameter compared to recent exam. There is some mild colonic diverticulosis without diverticulitis.
--- NOTE | 2022-06-03 02:23 | XR ---
EXAMINATION TYPE: XR chest 2V DATE OF EXAM: 06/03/2022 COMPARISON: 05/03/2022 HISTORY: Nausea and vomiting TECHNIQUE: 2 views FINDINGS: Heart is within normal limits. There is no heart failure. There is slight blunting right co stophrenic angle. There are no hilar masses. There are chest leads. Bony thorax is intact. IMPRESSION: Minimal pleural reaction right lung base. Pleural fluid mostly cleared compared to old ex am. No heart failure seen. Inspiration improved compared to the old exam.
[2022-06-03 02:25] LABS: Basophils % (A) 0 %; Eosinophils # (A) 0.1 k/uL (0-0.7); Eosinophils % (A) 1 %; HGB 9.7 gm/dL (13.0-17.5); Hypochromasia Slight; Lymphocytes # (A) 0.6 k/uL (1.0-4.8); Lymphocytes % (A) 7 %; MCH 33.9 pg (25.0-35.0); MCHC 32.5 g/dL (31.0-37.0); MCV 104.5 fL (80.0-100.0); Macrocytosis Moderate; Mean Platelet Volume 11.4; Monocytes # (A) 0.7 k/uL (0-1.0); Monocytes % (A) 8 %; Neutrophils # (A) 7.7 k/uL (1.3-7.7); Neutrophils % (A) 83 %; RBC 2.87 m/uL (4.30-5.90); RDW 15.1 % (11.5-15.5); WBC 9.3 k/uL (3.8-10.6)
[2022-06-03 02:28] LABS: Platelet Count 121 k/uL (150-450)
--- NOTE | 2022-06-03 03:16 | ED ---
General Adult HPI - General Source: patient, EMS Mode of arrival: EMS Limitations: no limitations <Janusz Bailey - Last Filed: 06/03/22 03:10> <Gonzalo Reese - Last Filed: 06/03/22 10:26> - General Chief complaint: Abdominal Pain Stated complaint: Weakness, Vomiting, Diarrhea Time Seen by Provider: 06/03/22 01:04 - History of Present Illness Initial comments: This is a 76-year-old male with a past medical history including end-stage renal disease on dialysis Friday, and Friday presented to the emergency department via EMS for nausea, vomiting and weakness. The patient stated that he had an episode of nausea and vomiting today as well as episode of loose stools. The patient stated that his weakness also started today; EMS for evaluation. The patient stated that he did undergo dialysis with the full treatment on Friday and stated that the symptoms started today. The patient denied any recent sick contacts. The patient had right upper quadrant abdominal pain as well as generalized abdominal pain. The patient was however resting in bed comfortably without any acute pain or distress on my evaluation. The patient denied any fevers and chills. (Janusz Bailey) - Related Data Home Medications Medication Instructions Recorded Confirmed Atorvastatin [Lipitor] 10 mg PO HS 01/29/22 05/01/22 Cholecalciferol [Vitamin D3 (25 25 mcg PO DAILY 01/29/22 05/01/22 Mcg = 1000 Iu)] [place]-3/Dha/Epa/Fish Oil [Fish Oil 1 cap PO DAILY 01/29/22 05/01/22 1,000 mg Softgel] Ondansetron [Zofran] 4 mg PO DAILY PRN 01/29/22 05/01/22 Isosorbide Mononitrate ER [Imdur] 30 mg PO DAILY 01/30/22 05/01/22 Magnesium Oxide [Mag-Ox] 400 mg PO DAILY 01/30/22 05/01/22 PARoxetine [Paxil] 10 mg PO DAILY 01/30/22 05/01/22 Aspirin 81 mg PO DAILY 05/01/22 05/01/22 Lidocaine-Prilocaine Cream [Emla 1 applic TOPICAL MOWEFR 05/01/22 05/01/22 Cream 2.5%/2.5%] Emy-Catalino 1 tab PO DAILY 05/01/22 05/01/22 rOPINIRole HCL [Requip] 2 mg PO BID 05/01/22 05/01/22 Previous Rx's Medication Instructions Recorded Losartan [Cozaar] 12.5 mg PO HS #15 tab 03/16/22 Metoprolol Tartrate [Lopressor] 12.5 mg PO DAILY #30 tab 03/16/22 Bumetanide [BUMEX] 2 mg PO BID #0 05/08/22 Gabapentin [Neurontin] 100 mg PO HS #3 cap 05/08/22 Midodrine [ProAmatine] 10 mg PO TID PRN #0 05/08/22 Sevelamer Carbonate 1,600 mg PO TID #0 05/08/22 oxyCODONE-APAP 5-325MG [Percocet 1 tab PO TID PRN #9 tab 05/08/22 5-325 mg] Allergies Allergy/AdvReac Type Severity Reaction Status Date / Time enalaprilat [From Vasotec] Allergy Swelling Verified 03/11/22 20:48 lisinopril Allergy Swelling Verified 03/11/22 20:48 Review of Systems ROS Other: All systems not noted in ROS Statement are negative. <Janusz Bailey - Last Filed: 06/03/22 03:10> ROS Other: All systems not noted in ROS Statement are negative. <Gonzalo Reese - Last Filed: 06/03/22 10:26> ROS Statement: Those systems with pertinent positive or pertinent negative responses have been documented in the HPI. 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%, history of renal chest and 2 in 1992 from a donor and in 1995 from a living donor, history of neck fracture, history of Covid 19 infection, severe aortic stenosis, anemia of chronic disease History of Any Multi-Drug Resistant Organisms: None Reported Past Surgical History: Appendectomy Additional Past Surgical History / Comment(s): Kidney transplant times 07/28/1992 and 1995 and the patient has a fistula in the left upper extremity Past Anesthesia/Blood Transfusion Reactions: No Reported Reaction Past Psychological History: No Psychological Hx Reported Smoking Status: Former smoker Past Alcohol Use History: Rare Past Drug Use History: None Reported - Past Family History Mother Family Medical History: Cancer Additional Family Medical History / Comment(s): pancreatic cancer Father Family Medical History: CVA/TIA Additional Family Medical History / Comment(s): father of stroke , mother pancreatic cancer <Janusz Bailey - Last Filed: 06/03/22 03:10> General Exam Limitations: no limitations General appearance: alert, in no apparent distress Head exam: Present: atraumatic, normocephalic, normal inspection Eye exam: Present: normal appearance, PERRL Pupils: Present: normal accommodation ENT exam: Present: normal exam, normal oropharynx, mucous membranes moist Neck exam: Present: normal inspection, full ROM Respiratory exam: Present: normal lung sounds bilaterally Cardiovascular Exam: Present: regular rate, normal rhythm, normal heart sounds GI/Abdominal exam: Present: soft, tenderness (Tenderness noted in the right upper quadrant, generalized abdominal pain noted as well however a lesser extent than the right upper quadrant) Extremities exam: Present: normal inspection, full ROM, normal capillary refill Back exam: Present: normal inspection, full ROM Neurological exam: Present: alert, oriented X3, CN II-XII intact Psychiatric exam: Present: normal affect, normal mood Skin exam: Present: warm, dry <Janusz Bailey - Last Filed: 06/03/22 03:10> Course <Janusz Bailey - Last Filed: 06/03/22 03:10> <Gonzalo Reese - Last Filed: 06/03/22 10:26> Vital Signs 06/03/22 06/03/22 06/03/22 01:10 05:19 06:30 Temperature 99.6 F Pulse Rate 102 H 96 92 Respiratory 16 14 14 Rate Blood Pressure 130/82 120/64 117/70 O2 Sat by Pulse 98 98 98 Oximetry - Reevaluation(s) Reevaluation #1: Laboratory workup was obtained and was largely within normal limits. The patient's elevation of troponin was likely secondary to dialysis and was lower than his previous baseline troponin levels. The patient also had an elevated creatinine likely secondary to his dialysis as well. The patient's lipase was significantly elevated at 560. Computed tomography scan was obtained and was interpreted by myself and showed a possibility for cholecystitis. Due to this finding, an ultrasound was ordered at this time. 06/03/22 03:14 06/03/22 03:14 (Janusz Bailey) Reevaluation #2: 06/03/22 10:13 The patient was endorsed me at our shift change pending ultrasound. Ultrasound did show evidence of dilated gallbladder and pericolic fluid. On my repeat examination upon arrival the patient did have mild right upper quadrant tenderness palpation. I did discuss the case with Dr. Ferrara and Dr. Hahn as well as Dr. Villatoro. Patient be admitted I did also additionally discuss the case briefly with Dr. Phillips who will be consulted for the elevated troponin. (Gonzalo Reese) EKG Findings - EKG Comments: EKG Findings:: An EKG was obtained and was interpreted by myself showing a rate of 95, P irritable 161, QR alevism 109 and QTC of 434. This EKG showed normal sinus rhythm. There was an isolated T-wave inversions noted to lead V6 however there were no ST segment elevations or depressions noted. <Janusz Bailey - Last Filed: 06/03/22 03:10> Medical Decision Making - Lab Data Result diagrams: 06/03/22 01:38 06/03/22 01:38 <Janusz Bailey - Last Filed: 06/03/22 03:10> - Lab Data Result diagrams: 06/03/22 01:38 06/03/22 01:38 <Gonzalo Reese - Last Filed: 06/03/22 10:26> - Medical Decision Making The patient will be signed out to the oncoming physician, Dr. Reese pending ultrasound rule out cholecystitis at this time. The patient was signed out in stable condition. (Janusz Bailey) Was pt. sent in by a medical professional or institution? @ Yes-[by , PA, MOBILE SALES ASSISTANT, urgent care, hospital, or [place] health care facility] Did you speak to anyone other than the patient for history? @ No patient was signed out to me-[EMS, parent, family, police, friend?] Did you review nursing and triage notes? @ Yes-[agree or disagree, why?] Were old charts reviewed? @ Yes -[outside hosp., previous admissions, EMS record, old EKG, old radiological studies, urgent care reports/EKGs, [place] health care facility records?] Differential Diagnosis? @ Abdominal pain, ultrasound indicative of cholecystitis. Patient without chest pain but elevated troponin to be evaluated by cardiology. Patient is a dialysis patient to be evaluated and treated by nephrology-[chest pain, altered mental status abdominal pain women, abdominal pain men, vaginal bleeding, weakness, fever, dyspnea, syncope, headache, dizziness, GI bleed, back pain, seizure] EKG interpreted by me (3pts min.)? @ -[none] X-rays interpreted by me (1pt min.)? @ -[none] CT interpreted by me (1pt min.)? @ -[none] U/S interpreted by me (1pt. min.)? @ Ultrasound interpretation shows evidence of dilated gallbladder and pericolic fluid -[none] What testing was considered but not performed? (CT, X-rays, U/S, labs)? Why? @ [CT, X-rays, U/S, labs? Why?] What meds were considered but not given? Why? @ -[none] Did you discuss the management of the patient with other professionals? @ Yes with Dr. Ferrara, Dr. Hahn, Dr. Phillips, and Dr. Villatoro -[professionals i.e. Dr, PA, MOBILE SALES ASSISTANT, Lab, RT, Psych Nurse, Impersonator Character, Supervisor [employer], Teacher, Manufacturing Systems Engineer, foster care case manager? Give summary] Did you reconcile home meds? @ -[none] Was smoking cessation discussed for >3mins.? @ -[none] Was critical care preformed (if so, how long)? @ -[none] Were there social determinants of health that impacted care today? How? (Homelessness, low income, unemployed, alcoholism, drug addiction, transportation, low edu. Level, literacy, decrease access to med. care, retirement, rehab)? @ -[Homelessness, low income, unemployed, alcoholism, drug addiction, transportation, low edu. Level, literacy, decrease access to med. care, retirement, rehab?] Was there de-escalation of care discussed even if they declined? (Discuss DNR or withdrawal of care, Hospice)? @ No -[Discuss DNR or withdrawal of care, Hospice?] What co-morbidities impacted this encounter? (DM, HTN, Smoking, COPD, CAD, Cancer, CVA, Hep., AIDS, mental health diagnosis, sleep apnea, morbid obesity)? @ The patient was admitted for inpatient evaluation and treatment by surgery by nephrology by cardiology-[DM, HTN, Smoking, COPD, CAD, Cancer, CVA, Hep., AIDS, mental health diagnosis, sleep apnea, morbid obesity?] Was patient admitted / discharged? @ Patient was admitted-[hospital course] Undiagnosed new problem with uncertain prognosis? @ -[none] Drug Therapy requiring intensive monitoring for toxicity (Heparin, Nitro, Insulin, Cardizem)? @ -[none] Were any procedures done? @ -[none] Diagnosis/symptom? @ Acute cholecystitis, chronic renal failure, elevated troponin -[default] Acute, or Chronic, or Acute on Chronic? @ Acute and chronic-[default] Uncomplicated (without systemic symptoms) or Complicated (systemic symptoms)? @ -[default] Side effects of treatment? @ -[none] Exacerbation, Progression, or Severe Exacerbation] @ -[no] Poses a threat to life or bodily function? @ -[no] (Gonzalo Reese) - Lab Data Lab Results 06/03/22 06/03/22 06/03/22 Range/Units 01:38 01:38 01:38 WBC (3.8-10.6) k/uL RBC (4.30-5.90) m/uL Hgb (13.0-17.5) gm/dL Hct (39.0-53.0) % MCV (80.0-100.0) fL MCH (25.0-35.0) pg MCHC (31.0-37.0) g/dL RDW (11.5-15.5) % Plt Count (150-450) k/uL MPV Neutrophils % % Lymphocytes % % Monocytes % % Eosinophils % % Basophils % % Neutrophils # (1.3-7.7) k/uL Lymphocytes # (1.0-4.8) k/uL Monocytes # (0-1.0) k/uL Eosinophils # (0-0.7) k/uL Basophils # (0-0.2) k/uL Hypochromasia Macrocytosis Sodium 141 (137-145) mmol/L Potassium 4.1 (3.5-5.1) mmol/L Chloride 101 (98-107) mmol/L Carbon Dioxide 25 (22-30) mmol/L Anion Gap 15 mmol/L BUN 47 H (9-20) mg/dL Creatinine 5.15 H (0.66-1.25) mg/dL Est GFR (CKD-EPI)AfAm 11 (>60 ml/min/1.73 sqM) Est GFR (CKD-EPI)NonAf 10 (>60 ml/min/1.73 sqM) Glucose 103 H (74-99) mg/dL Calcium 8.2 L (8.4-10.2) mg/dL Magnesium 1.5 L (1.6-2.3) mg/dL Total Bilirubin 0.9 (0.2-1.3) mg/dL AST 34 (17-59) U/L ALT 21 (4-49) U/L Alkaline Phosphatase 137 H (38-126) U/L Troponin I 0.233 H* (0.000-0.034) ng/mL NT-Pro-B Natriuret Pep [id number] pg/mL Total Protein 7.2 (6.3-8.2) g/dL Albumin 4.0 (3.5-5.0) g/dL Lipase 560 H (23-300) U/L 06/03/22 Range/Units 01:38 WBC 9.3 (3.8-10.6) k/uL RBC 2.87 L (4.30-5.90) m/uL Hgb 9.7 L (13.0-17.5) gm/dL Hct 30.0 L (39.0-53.0) % MCV 104.5 H (80.0-100.0) fL MCH 33.9 (25.0-35.0) pg MCHC 32.5 (31.0-37.0) g/dL RDW 15.1 (11.5-15.5) % Plt Count 121 L D (150-450) k/uL MPV 11.4 Neutrophils % 83 % Lymphocytes % 7 % Monocytes % 8 % Eosinophils % 1 % Basophils % 0 % Neutrophils # 7.7 (1.3-7.7) k/uL Lymphocytes # 0.6 L (1.0-4.8) k/uL Monocytes # 0.7 (0-1.0) k/uL Eosinophils # 0.1 (0-0.7) k/uL Basophils # 0.0 (0-0.2) k/uL Hypochromasia Slight Macrocytosis Moderate Sodium (137-145) mmol/L Potassium (3.5-5.1) mmol/L Chloride (98-107) mmol/L Carbon Dioxide (22-30) mmol/L Anion Gap mmol/L BUN (9-20) mg/dL Creatinine (0.66-1.25) mg/dL Est GFR (CKD-EPI)AfAm (>60 ml/min/1.73 sqM) Est GFR (CKD-EPI)NonAf (>60 ml/min/1.73 sqM) Glucose (74-99) mg/dL Calcium (8.4-10.2) mg/dL Magnesium (1.6-2.3) mg/dL Total Bilirubin (0.2-1.3) mg/dL AST (17-59) U/L ALT (4-49) U/L Alkaline Phosphatase (38-126) U/L Troponin I (0.000-0.034) ng/mL NT-Pro-B Natriuret Pep pg/mL Total Protein (6.3-8.2) g/dL Albumin (3.5-5.0) g/dL Lipase (23-300) U/L Disposition <Janusz Bailey - Last Filed: 06/03/22 03:10> Decision Date: 06/03/22 Decision Time: 09:00 <Gonzalo Reese - Last Filed: 06/03/22 10:26> Clinical Impression: Acute cholecystitis, Elevated troponin, Chronic renal failure, Elevated brain natriuretic peptide (BNP) level, Hypomagnesemia Disposition: ADMITTED IP TO THIS HOSP Condition: Fair Referrals: Fransisco Pereira MD [Primary Care Provider] - 1-2 days
--- NOTE | 2022-06-03 07:29 | US ---
EXAMINATION TYPE: US abdomen limited DATE OF EXAM: 06/03/2022 COMPARISON: CT 06/03/2022 CLINICAL HISTORY: RUQ pain, r/o fermin. Right kidney removed. Hx of distended gallbladder. CT showed dilated GB. TECHNIQUE: Multiple sonographic images of the right upper quadrant are obtained. FINDINGS: EXAM MEASUREMENTS: Liver Length: 14.0 cm Gallbladder Wall: 0.5 cm CBD: 0.6 cm Pancreas: Obscured by bowel gas Liver: Appears coarse with increased echotexture. Gallbladder: Enlarged in size. Fluid visualized adjacent to GB. Mild wall thickening noted at 0.5 cm. Evidence for sonographic Cat's sign: neg CBD: wnl as visualized, limited due to bowel gas Right Kidney: Surgically absent Right pleural effusion seen IMPRESSION: 1. Dilated gallbladder with pericholecystic fluid. Correlate for signs and symptoms of cholecystitis given absence of a negative sonographic Cta's sign. Consider HIDA scan for confirmation. 2. Hepatic steatosis. 3. Trace right pleural effusion.
[2022-06-03] MEDS ORDERED: PIPERACILLIN-TAZOBACTAM 3.375 GM in SODIUM CHLORIDE 0.9% 100 ML IVPB STA (09:38)
[2022-06-03] MEDS ORDERED: IOPAMIDOL CONTRAST (ORAL USE) VIAL PO PRN (09:40)
[2022-06-03] MEDS ORDERED: NALOXONE 0.4 MG/ML 1 ML VIAL IV PRN (10:33)
[2022-06-03] MEDS ORDERED: MAGNESIUM SULFATE-D5W PMX 1 GM in DEXTROSE/WATER 1 100ML.BAG IVPB ONE (10:43)
[2022-06-03] MEDS: oxyCODONE-APAP 5-325MG 1 EACH TAB PO PRN ×2 (10:57→22:39)
--- NOTE | 2022-06-03 11:51 | P.HPIM ---
History of Present Illness H&P Date: 06/03/22 Chief Complaint: Vomiting Patient is a 76-year-old male with history of ESRD on hemodialysis, systolic CHF with EF 10-20%, severe aortic stenosis, multiple other comorbidities presenting with nausea and vomiting. He claims that he was recently admitted to the hospital for shortness of breath, discharged to subacute rehab. He then got home last week, and had his dialysis on Friday. He rested all of yesterday, but this morning woke up with vomiting. Since then he has also noted some right-sided abdominal pain, diffuse, unable to localize, feels tender to palpation, at worst is 10/10 with palpation. He denies any further nausea or vomiting. He denies any fevers or chills. He denies any chest pain, shortness of breath, urinary or bowel complaints. In the ED, patient was tachycardic to 102, normal blood pressure, afebrile and saturating well on room air. Laboratory workup was significant for macrocytic anemia at baseline, mild thrombocytopenia, magnesium 1.5, elevated BUN/creatinine, elevated troponin of 0.233, elevated ALP, proBNP elevated at 119,000, similar to prior, elevated lipase at 560. Right upper quadrant ultrasound showed dilated gallbladder with pericholecystic fluid and hepatic steatosis. CT abdomen and pelvis showed mild right pleural effusion, dilated gallbladder suggestive cholecystitis and mild colonic diverticulosis without diverticulitis. Patient was given Zosyn in the ED, and magnesium, and admitted for acute cholecystitis. Patient seen and examined at bedside. Pertinent positives and negatives as discussed in HPI, a complete review of systems was performed and all other systems are negative. Vital signs reviewed General: nontoxic, no distress, appears at stated age, chronically ill-appearing Derm: warm, dry Head: atraumatic, normocephalic, symmetric Eyes: EOMI, no lid lag, anicteric sclera, pupils equal round reactive to light ENT: Nose and ears atraumatic Neck: No thyromegaly, supple Mouth: no lip lesion, mucus membranes moist Cardiovascular: S1S2 reg, no murmur, trace peripheral, left arm AV fistula Lungs: Bilateral fine crackles at the bases, no wheeze, no accessory muscle use Abdominal: soft, nontender to palpation, no guarding, no appreciable organomegaly Ext: no gross muscle atrophy, muscle strength muscle strength 5 out of 5 in all 4 extremities, no contractures Neuro: CN II-XII grossly intact Psych: Alert, oriented, appropriate affect Assessment/Plan: Acute cholecystitis Acute abdominal pain Nausea and vomiting Diverticulosis without diverticulitis - Continue IV Zosyn - Gen. surgery consulted - Cardiology and nephrology for preoperative medical optimization History of systolic CHF with EF 10-20% Mild right pleural effusion Severe aortic stenosis Elevated troponin - EKG shows nonspecific T wave abnormalities, sinus rhythm - Cardiology consulted - Telemetry - Currently appears euvolemic ESRD on hemodialysis - Gets dialyzed TTS - Nephrology consulted Hypomagnesemia -Replete and monitor Macrocytic anemia Mild thrombocytopenia -B12 and folic acid pending Other Chronic medical problems Hypertension Dyslipidemia -Continue home medications The patient is admitted with an anticipated greater than 2 midnight stay for ev aluation of acute cholecystitis. Surrogate decision-maker: CODE STATUS: Full Code DVT prophylaxis: Subcu heparin Anticipated discharge date: Pending clinical course Anticipated discharge place: Pending Clinical course A total of 55 minutes was spent on the care of this complex patient more than 50% of the time was spent in counseling and care coordination. 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%, history of renal chest and 2 in 1992 from a donor and in 1995 from a living donor, history of neck fracture, history of Covid 19 infection, severe aortic stenosis, anemia of chronic disease History of Any Multi-Drug Resistant Organisms: None Reported Past Surgical History: Appendectomy Additional Past Surgical History / Comment(s): Kidney transplant times and 1995 and the patient has a fistula in the left upper extremity Past Anesthesia/Blood Transfusion Reactions: No Reported Reaction Past Psychological History: No Psychological Hx Reported Smoking Status: Former smoker Past Alcohol Use History: Rare Past Drug Use History: None Reported - Past Family History Mother Family Medical History: Cancer Additional Family Medical History / Comment(s): pancreatic cancer Father Family Medical History: CVA/TIA Additional Family Medical History / Comment(s): father of stroke , mother pancreatic cancer Medications and Allergies Home Medications Medication Instructions Recorded Confirmed Type Atorvastatin [Lipitor] 10 mg PO HS 01/29/22 06/03/22 History Cholecalciferol [Vitamin D3 (25 50 mcg PO DAILY 01/29/22 06/03/22 History Mcg = 1000 Iu)] [place]-3/Dha/Epa/Fish Oil [Fish Oil 1 cap PO DAILY 01/29/22 06/03/22 History 1,000 mg Softgel] Isosorbide Mononitrate ER [Imdur] 30 mg PO DAILY 01/30/22 06/03/22 History Aspirin 81 mg PO DAILY 05/01/22 06/03/22 History rOPINIRole HCL [Requip] 2 mg PO BID 05/01/22 06/03/22 History oxyCODONE-APAP 5-325MG [Percocet 1 tab PO TID PRN #9 tab 05/08/22 06/03/22 Rx 5-325 mg] Folic Acid/Vit B Complex and C 0.8 mg PO TUTHSA 06/03/22 06/03/22 History [Emy-Catalino Tablet] Sevelamer Carbonate 800 mg PO TID-W/MEALS 06/03/22 06/03/22 History Allergies Allergy/AdvReac Type Severity Reaction Status Date / Time enalaprilat [From Vasotec] Allergy Swelling Verified 06/03/22 11:06 lisinopril Allergy Swelling Verified 06/03/22 11:06 Physical Exam Vitals: Vital Signs Temp Pulse Resp BP Pulse Ox 06/03/22 10:21 93 18 108/63 96 06/03/22 06:30 92 14 117/70 98 06/03/22 05:19 96 14 120/64 98 06/03/22 01:10 99.6 F 102 H 16 130/82 98 Intake and Output 06/02/22 06/03/22 06/03/22 22:59 06:59 14:59 Other: Weight 68.039 kg Results CBC & Chem 7: 06/03/22 01:38 06/03/22 01:38 Labs: Abnormal Lab Results - Last 24 Hours (Table) 06/03/22 06/03/22 06/03/22 Range/Units 01:38 01:38 01:38 RBC 2.87 L (4.30-5.90) m/uL Hgb 9.7 L (13.0-17.5) gm/dL Hct 30.0 L (39.0-53.0) % MCV 104.5 H (80.0-100.0) fL Plt Count 121 L D (150-450) k/uL Lymphocytes # 0.6 L (1.0-4.8) k/uL BUN 47 H (9-20) mg/dL Creatinine 5.15 H (0.66-1.25) mg/dL Glucose 103 H (74-99) mg/dL Calcium 8.2 L (8.4-10.2) mg/dL Magnesium 1.5 L (1.6-2.3) mg/dL Alkaline Phosphatase 137 H (38-126) U/L Troponin I 0.233 H* (0.000-0.034) ng/mL Lipase 560 H (23-300) U/L
--- NOTE | 2022-06-03 11:54 | P.NPCON ---
History of Present Illness - Reason for Consult Consult date: 06/03/22 end stage renal disease - Chief Complaint ESRD TTS - History of Present Illness This is a 76-year-old male known to us with ESRD on dialysis Friday recent admission 05/01/2022 to 05/08/2022 because of volume overload. He came in today with nausea vomiting today. Denies any significant abdominal discomfort. He was last dialyzed on Friday day before yesterday on his scheduled time. Workup Based on computed tomography scan and ultrasound shows cholecystitis and gallstone. 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%, history of renal chest and 2 in 1992 from a donor and in 1995 from a living donor, history of nec k fracture, history of Covid 19 infection, severe aortic stenosis, anemia of chronic disease History of Any Multi-Drug Resistant Organisms: None Reported Past Surgical History: Appendectomy Additional Past Surgical History / Comment(s): Kidney transplant times 07/28/1992 and 1995 and the patient has a fistula in the left upper extremity Past Anesthesia/Blood Transfusion Reactions: No Reported Reaction Past Psychological History: No Psychological Hx Reported Smoking Status: Former smoker Past Alcohol Use History: Rare Past Drug Use History: None Reported - Past Family History Mother Family Medical History: Cancer Additional Family Medical History / Comment(s): pancreatic cancer Father Family Medical History: CVA/TIA Additional Family Medical History / Comment(s): father of stroke , mother pancreatic cancer Medications and Allergies Home Medications Medication Instructions Recorded Confirmed Type Atorvastatin [Lipitor] 10 mg PO HS 01/29/22 06/03/22 History Cholecalciferol [Vitamin D3 (25 50 mcg PO DAILY 01/29/22 06/03/22 History Mcg = 1000 Iu)] [place]-3/Dha/Epa/Fish Oil [Fish Oil 1 cap PO DAILY 01/29/22 06/03/22 History 1,000 mg Softgel] Isosorbide Mononitrate ER [Imdur] 30 mg PO DAILY 01/30/22 06/03/22 History Aspirin 81 mg PO DAILY 05/01/22 06/03/22 History rOPINIRole HCL [Requip] 2 mg PO BID 05/01/22 06/03/22 History oxyCODONE-APAP 5-325MG [Percocet 1 tab PO TID PRN #9 tab 05/08/22 06/03/22 Rx 5-325 mg] Folic Acid/Vit B Complex and C 0.8 mg PO TUTHSA 06/03/22 06/03/22 History [Emy-Catalino Tablet] Sevelamer Carbonate 800 mg PO TID-W/MEALS 06/03/22 06/03/22 History Allergies Allergy/AdvReac Type Severity Reaction Status Date / Time enalaprilat [From Vasotec] Allergy Swelling Verified 06/03/22 11:06 lisinopril Allergy Swelling Verified 06/03/22 11:06 Physical Exam Vitals: Vital Signs Temp Pulse Resp BP Pulse Ox 06/03/22 10:21 93 18 108/63 96 06/03/22 06:30 92 14 117/70 98 06/03/22 05:19 96 14 120/64 98 06/03/22 01:10 99.6 F 102 H 16 130/82 98 Intake and Output 06/02/22 06/03/22 06/03/22 22:59 06:59 14:59 Other: Weight 68.039 kg On examination somewhat ill-looking male. Currently on room air. HEENT exam no JVP neck is supple no facial asymmetry Lungs are significant for bilateral coarse crackles at bases Heart sounds are unremarkable. EKG shows normal sinus rhythm. Abdomen soft nontender Extremity exam was no edema Neurologically awake alert oriented but is weak overall. A chest x-ray shows minimal pleural reaction right lung base Results - Lab Results Most recent lab results Calcium 8.2 mg/dL (8.4-10.2) L 06/03/22 01:38 Magnesium 1.5 mg/dL (1.6-2.3) L 06/03/22 01:38 06/03/22 01:38 06/03/22 01:38 Assessment and Plan Assessment: Impression 1. ESRD on dialysis Friday with the left upper arm access. 2. Admitted with nausea vomiting. Computed tomography scan shows likely cholecystitis although clinically is not consistent. Ultrasound also shows dilated gallbladder with pericholecystic fluid. 3. Anemia hemoglobin is 9.7 slightly below target 4. Normal electrolytes. 5. History of cardiomyopathy ejection fraction 15% 6. Past history of living donor kidney allograft 1995 7. History of aortic stenosis. Recommendation We will dialyze tomorrow. Surgical consult pending although patient is refusing surgery for possible cholecystitis.
--- NOTE | 2022-06-03 12:06 | P.GSCN ---
History of Present Illness Consult date: 06/03/22 Reason for Consult: Dilated gallbladder History of present illness: Is a 76-year-old male who was admitted to the hospital some complaints of vague abdominal pain. Patient's CAT scan shows evidence of a mildly enlarged gallbladder. His ultrasound shows evidence of a large gallbladder with some pericholecystic fluid. The patient denies any significant abdominal pain today when I see him. He states he is hungry. 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%, history of renal chest and 2 in 1992 from a donor and in 1995 from a living donor, history of neck fracture, history of Covid 19 infection, severe aortic stenosis, anemia of chronic disease History of Any Multi-Drug Resistant Organisms: None Reported Past Surgical History: Appendectomy Additional Past Surgical History / Comment(s): Kidney transplant times and 1995 and the patient has a fistula in the left upper extremity Past Anesthesia/Blood Transfusion Reactions: No Reported Reaction Past Psychological History: No Psychological Hx Reported Smoking Status: Former smoker Past Alcohol Use History: Rare Past Drug Use History: None Reported - Past Family History Mother Family Medical History: Cancer Additional Family Medical History / Comment(s): pancreatic cancer Father Family Medical History: CVA/TIA Additional Family Medical History / Comment(s): father of stroke , mother pancreatic cancer Medications and Allergies Home Medications Medication Instructions Recorded Confirmed Type Atorvastatin [Lipitor] 10 mg PO HS 01/29/22 06/03/22 History Cholecalciferol [Vitamin D3 (25 50 mcg PO DAILY 01/29/22 06/03/22 History Mcg = 1000 Iu)] [place]-3/Dha/Epa/Fish Oil [Fish Oil 1 cap PO DAILY 01/29/22 06/03/22 History 1,000 mg Softgel] Isosorbide Mononitrate ER [Imdur] 30 mg PO DAILY 01/30/22 06/03/22 History Aspirin 81 mg PO DAILY 05/01/22 06/03/22 History rOPINIRole HCL [Requip] 2 mg PO BID 05/01/22 06/03/22 History oxyCODONE-APAP 5-325MG [Percocet 1 tab PO TID PRN #9 tab 05/08/22 06/03/22 Rx 5-325 mg] Folic Acid/Vit B Complex and C 0.8 mg PO TUTHSA 06/03/22 06/03/22 History [Emy-Catalino Tablet] Sevelamer Carbonate 800 mg PO TID-W/MEALS 06/03/22 06/03/22 History Allergies Allergy/AdvReac Type Severity Reaction Status Date / Time enalaprilat [From Vasotec] Allergy Swelling Verified 06/03/22 11:06 lisinopril Allergy Swelling Verified 06/03/22 11:06 Surgical - Exam Vital Signs Temp Pulse Resp BP Pulse Ox 99.6 F 102 H 16 130/82 98 06/03/22 01:10 06/03/22 01:10 06/03/22 01:10 06/03/22 01:10 06/03/22 01:10 - General well developed, well nourished, no distress - Eyes PERRL - ENT normal pinna - Neck no masses - Respiratory normal expansion - Cardiovascular Rhythm: regular - Abdomen Abdomen soft. There is minimal tenderness throughout. There is no rebound or guarding. There is no significant right upper quadrant pain. Abdomen: soft, non tender Results - Labs 06/03/22 01:38 06/03/22 01:38 Abnormal Lab Results - Last 24 Hours (Table) 06/03/22 06/03/22 06/03/22 Range/Units 01:38 01:38 01:38 RBC 2.87 L (4.30-5.90) m/uL Hgb 9.7 L (13.0-17.5) gm/dL Hct 30.0 L (39.0-53.0) % MCV 104.5 H (80.0-100.0) fL Plt Count 121 L D (150-450) k/uL Lymphocytes # 0.6 L (1.0-4.8) k/uL BUN 47 H (9-20) mg/dL Creatinine 5.15 H (0.66-1.25) mg/dL Glucose 103 H (74-99) mg/dL Calcium 8.2 L (8.4-10.2) mg/dL Magnesium 1.5 L (1.6-2.3) mg/dL Alkaline Phosphatase 137 H (38-126) U/L Troponin I 0.233 H* (0.000-0.034) ng/mL Lipase 560 H (23-300) U/L Diabetes panel 06/03/22 Range/Units 01:38 Sodium 141 (137-145) mmol/L Potassium 4.1 (3.5-5.1) mmol/L Chloride 101 (98-107) mmol/L Carbon Dioxide 25 (22-30) mmol/L BUN 47 H (9-20) mg/dL Creatinine 5.15 H (0.66-1.25) mg/dL Glucose 103 H (74-99) mg/dL Calcium 8.2 L (8.4-10.2) mg/dL AST 34 (17-59) U/L ALT 21 (4-49) U/L Alkaline Phosphatase 137 H (38-126) U/L Total Protein 7.2 (6.3-8.2) g/dL Albumin 4.0 (3.5-5.0) g/dL Calcium panel 06/03/22 Range/Units 01:38 Calcium 8.2 L (8.4-10.2) mg/dL Albumin 4.0 (3.5-5.0) g/dL Pituitary panel 06/03/22 Range/Units 01:38 Sodium 141 (137-145) mmol/L Potassium 4.1 (3.5-5.1) mmol/L Chloride 101 (98-107) mmol/L Carbon Dioxide 25 (22-30) mmol/L BUN 47 H (9-20) mg/dL Creatinine 5.15 H (0.66-1.25) mg/dL Glucose 103 H (74-99) mg/dL Calcium 8.2 L (8.4-10.2) mg/dL Adrenal panel 06/03/22 Range/Units 01:38 Sodium 141 (137-145) mmol/L Potassium 4.1 (3.5-5.1) mmol/L Chloride 101 (98-107) mmol/L Carbon Dioxide 25 (22-30) mmol/L BUN 47 H (9-20) mg/dL Creatinine 5.15 H (0.66-1.25) mg/dL Glucose 103 H (74-99) mg/dL Calcium 8.2 L (8.4-10.2) mg/dL Total Bilirubin 0.9 (0.2-1.3) mg/dL AST 34 (17-59) U/L ALT 21 (4-49) U/L Alkaline Phosphatase 137 H (38-126) U/L Total Protein 7.2 (6.3-8.2) g/dL Albumin 4.0 (3.5-5.0) g/dL - Imaging CT scan - abdomen: report reviewed (Mildly dilated gallbladder) US - abdomen: report reviewed (Large gallbladder with some minimal pericholecystic fluid.) Assessment and Plan Plan: Probable mild chronic cholecystitis. Patient's white count was normal. His liver function tests are also normal. Patient will be observed. No surgical i ntervention is planned at this point. We will follow with you. He may benefit from outpatient laparoscopic cholecystectomy in the future.
[2022-06-03] MEDS: SEVELAMER 800 MG TAB PO SCH ×2 (13:14→17:47)
--- NOTE | 2022-06-03 16:31 | CONS ---
CONSULTATION CHIEF COMPLAINT: Elevated troponin. HISTORY OF PRESENT ILLNESS: John is a 76-year-old gentleman with history of end-stage renal disease, on hemodialysis, who presented to hospital primarily with recurrent bouts of nausea and vomiting. I have been consulted because of elevated troponin at 0.2. He does not have any chest pain and does not have shortness of breath, PND, orthopnea, or leg edema. His BNP is elevated, probably related to underlying renal failure. Since admission, the patient has been diagnosed with cholecystitis, and workup is currently in progress for the same. He has a cardiac history including chronic systolic heart failure, severe aortic stenosis, and multiple other comorbidities. PAST MEDICAL HISTORY: Significant for cardiomyopathy with congestive heart failure; end-stage renal disease, on hemodialysis; and dyslipidemia. CURRENT MEDICATIONS: Include: 1. Percocet. 2. Requip. 3. Fish oil. 4. Imdur. 5. Vitamin D. 6. Aspirin. 7. Lipitor. ALLERGIES: 1. Lisinopril. 2. Vasotec. FAMILY HISTORY: Negative for premature coronary artery disease. SOCIAL HISTORY: Denies current smoking, EtOH abuse, or drug abuse. REVIEW OF SYSTEMS: HEENT: Unremarkable. CARDIAC: As described above. RESPIRATORY: As described above. GI: Negative. GENITOURINARY: Significant for end-stage renal disease. PSYCHOSOCIAL: Negative. DERM: Negative. CONSTITUTIONAL: Negative. ONCOLOGICAL: Negative. Rest of the system review is not relevant. IMAGING STUDIES: The patient had an echocardiogram in January of this year, that revealed severely impaired LV function with moderate mitral and tricuspid regurgitation and aortic sclerosis with aortic stenosis. PHYSICAL EXAMINATION: GENERAL: Comfortable at rest. VITAL SIGNS: Stable. CHEST: Reveals good air entry bilaterally. HEART: Reveals first and second heart sounds. Ejection systolic murmur in the aortic area. ABDOMEN: Soft. EXTREMITIES: Did not reveal any edema. LABORATORY DATA: Show that the potassium is 4.1, BUN is 47, creatinine is 5. Troponins are elevated. BNP is 119,000. Hemoglobin is 9.7, platelet count is 121. ASSESSMENT: 1. Elevated troponin secondary to end-stage renal disease. 2. History of cardiomyopathy with chronic systolic heart failure. 3. Possible cholecystitis. PLAN: Continue on current cardiac medications. MMODL / IJN: [id number] /
[2022-06-03] MEDS: HEPARIN SODIUM,PORCINE/PF 5,000 UNIT/0.5 ML SYRINGE SQ SCH ×2 (17:18→23:55)
[2022-06-03] MEDS: PIPERACILLIN-TAZOBACTAM 3.375 GM in SODIUM CHLORIDE 0.9% 100 ML IVPB SCH (21:23)
[2022-06-03] MEDS: ATORVASTATIN 10 MG TAB PO SCH (21:23)
[2022-06-04] MEDS: oxyCODONE-APAP 5-325MG 1 EACH TAB PO PRN ×2 (06:51→20:18)
[2022-06-04 08:46] LABS: Calcium 7.4 mg/dL (8.4-10.2); Magnesium 1.6 mg/dL (1.6-2.3); Potassium 4.4 mmol/L (3.5-5.1)
[2022-06-04] MEDS ORDERED: FOLIC ACID-VIT B COMPLEX-VIT C 1 CAP PO SCH (09:00)
[2022-06-04] MEDS: HEPARIN SODIUM,PORCINE/PF 5,000 UNIT/0.5 ML SYRINGE SQ SCH ×2 (09:29→16:04)
[2022-06-04] MEDS: ASPIRIN 81 MG PO SCH (09:30)
[2022-06-04] MEDS: CHOLECALCIFEROL 25 MCG (1000 IU) TABLET PO SCH (09:30)
[2022-06-04] MEDS: PIPERACILLIN-TAZOBACTAM 3.375 GM in SODIUM CHLORIDE 0.9% 100 ML IVPB SCH (09:30)
[2022-06-04] MEDS: NON FORMULARY DRUG (Omega-3/Dha/Epa/Fish Oil [Fish Oil 1,000 Mg Softgel] 1 EACH Capsule) PO SCH (09:31)
--- NOTE | 2022-06-04 11:24 | P.PN ---
Subjective Progress Note Date: 06/04/22 Principal diagnosis: vomitting Hospital Course: 76-year-old male with history of ESRD on hemodialysis, systolic CHF with EF 10- 20%, severe aortic stenosis, multiple other comorbidities presenting with nausea and vomiting. In the ED, patient was tachycardic to 102, normal blood pressure, afebrile and saturating well on room air. Laboratory workup was significant for macrocytic anemia at baseline, mild thrombocytopenia, magnesium 1.5, elevated BUN/creatinine, elevated troponin of 0.233, elevated ALP, proBNP elevated at 119,000, similar to prior, elevated lipase at 560. Right upper quadrant ultrasound showed dilated gallbladder with pericholecystic fluid and hepatic steatosis. CT abdomen and pelvis showed mild right pleural effusion, dilated gallbladder suggestive cholecystitis and mild colonic diverticulosis without diverticulitis. Patient was given Zosyn in the ED, and magnesium, and admitted for cholecystitis. Surgery consulted, no acute intervention. Cardiology consulted, no changes in medications. Subjective: Patient seen and examined at bedside. No acute events overnight. Still has occasional nausea, but no vomiting. He denies any further abdominal pain. He denies any chest pain, shortness of breath, bowel or urinary complaints. Pertinent positives and negatives as discussed above, a complete review of systems was performed and all other systems are negative. Vitals Signs Reviewed. General: nontoxic, no distress, appears at stated age, chronically ill-appearing Derm: warm, dry Head: atraumatic, normocephalic, symmetric Eyes: EOMI, no lid lag, anicteric sclera, pupils equal round reactive to light ENT: Nose and ears atraumatic Neck: No thyromegaly, supple Mouth: no lip lesion, mucus membranes moist Cardiovascular: S1S2 reg, no murmur, trace peripheral, left arm AV fistula Lungs: Bilateral fine crackles at the bases, no wheeze, no accessory muscle use, supplemental oxygen Abdominal: soft, nontender to palpation, no guarding, no appreciable organomegaly Ext: no gross muscle atrophy, muscle strength muscle strength 5 out of 5 in all 4 extremities, no contractures Neuro: CN II-XII grossly intact Psych: Alert, oriented, appropriate affect Assessment and Plan: Likely chronic cholecystitis Acute abdominal pain - resolved Nausea and vomiting - resolving Diverticulosis without diverticulitis -Was on IV antibiotics, switched to oral - Gen. surgery consulted, no acute interventions - Cardiology and nephrology also following History of systolic CHF with EF 10-20% Mild right pleural effusion Severe aortic stenosis Elevated troponin - EKG shows nonspecific T wave abnormalities, sinus rhythm - Cardiology consulted, no medication changes - Telemetry - Currently appears euvolemic ESRD on hemodialysis - Gets dialyzed TTS - Nephrology consulted Hypomagnesemia -Replete and monitor Macrocytic anemia Mild thrombocytopenia -folic acid levels normal - B12 pending Other Chronic medical problems Hypertension Dyslipidemia -Continue home medications DVT ppx: Subcu heparin Code status: No code Anticipated discharge place: Home Anticipated discharge time:. Tomorrow Objective - Vital Signs Vital signs: Vital Signs Temp 98.2 F 06/04/22 08:00 Pulse 85 06/04/22 08:00 Resp 20 06/04/22 08:00 BP 97/57 06/04/22 08:00 Pulse Ox 99 06/04/22 08:00 FiO2 Intake & Output 06/03/22 06/04/22 06/04/22 18:59 06:59 18:59 Intake Total 120 Balance 120 Weight 45 kg Intake: Oral 120 Other: # Voids 1 # Bowel Movements 2 - Labs CBC & Chem 7: 06/03/22 01:38 06/04/22 07:47 Labs: Abnormal Lab Results - Last 24 Hours (Table) 06/03/22 06/03/22 06/04/22 Range/Units 11:20 14:35 07:47 Carbon Dioxide 20 L (22-30) mmol/L BUN 64 H (9-20) mg/dL Creatinine 6.94 H (0.66-1.25) mg/dL Calcium 7.4 L (8.4-10.2) mg/dL Troponin I 0.233 H* 0.242 H* (0.000-0.034) ng/mL
--- NOTE | 2022-06-04 11:41 | CA ---
Transthoracic Echo Report Name: John Benedict Age: 76 Gender: M : 1945 Exam Date: 06/03/2022 13:39 Exam Location: [facility] Ht (in): 69 Wt (lb): 150 Ordering Physician: Mj Phillips MD ([id number]) Attending/Referring Phys: Alan RAMSEY Environmental Programs Manager Jumana Marin RDCS Procedure CPT: Indications: elevated trop Cardiac Hx: Technical Quality: Fair Contrast 1: Total Dose (mL): Contrast 2: Total Dose (mL): MEASUREMENTS (Male / Female) Normal Values 2D ECHO LV Diastolic Diameter PLAX 5.0 cm 4.2 - 5.9 / 3.9 - 5.3 cm LV Systolic Diameter PLAX 4.6 cm IVS Diastolic Thickness 1.4 cm 0.6 - 1.0 / 0.6 - 0.9 cm LVPW Diastolic Thickness 1.5 cm 0.6 - 1.0 / 0.6 - 0.9 cm LV Relative Wall Thickness 0.6 RV Internal Dim ED PLAX 5.2 cm LA Volume 103.6 cm??? 18 - 58 / 22 - 52 cm??? M-MODE Aortic Root Diameter MM 2.9 cm LA Systolic Diameter MM 5.1 cm LA Ao Ratio MM 1.8 AV Cusp Separation MM 1.3 cm DOPPLER AV Peak Velocity 237.3 cm/s AV Peak Gradient 22.5 mmHg LVOT Peak Velocity 74.2 cm/s LVOT Peak Gradient 2.2 mmHg MV Area PHT 4.0 cm??? Mitral E Point Velocity 124.1 cm/s Mitral A Point Velocity 78.3 cm/s Mitral E to A Ratio 1.6 MV Deceleration Time 190.7 ms TR Peak Velocity 312.2 cm/s TR Peak Gradient 39.0 mmHg Right Ventricular Systolic Press 43.1 mmHg FINDINGS Left Ventricle Mildly increased septal wall thickness. Severely reduced global left ventricular systolic function. Left ventricular ejection fraction is estimated at 20-25 %. Right Ventricle Severe right ventricular dilatation. Mild pulmonary hypertension. Right Atrium Severe right atrial dilatation. Left Atrium Severely increased left atrial volume. Mildly increased left atrial area. Mitral Valve Moderate mitral regurgitation. Mitral valve thickened. Moderate mitral annular calcification. Aortic Valve Diffuse thickening (sclerosis) of the aortic valve cusp. Aortic valve sclerosis. Severe calcifications of the aortic valve. The gradient could underestimate the severity of aortic stenosis because of low flow Tricuspid Valve Structurally normal tricuspid valve. [id number] tricuspid regurgitation. Pulmonic Valve Mild pulmonic regurgitation. Pericardium No pericardial effusion. Aorta Normal size aortic root and proximal ascending aorta. CONCLUSIONS 1. Severe global hypokinesis of the left ventricle 2. Severe calcification of the aortic valve, the severity of aortic stenosis may be underestimated 3. Moderate mitral with moderate to severe tricuspid regurgitation Previewed by: Dr. Manuel Russo MD (Electronically Signed) Final Date: 04 June 2022 11:40
[2022-06-04 11:57] VITALS: BMI 21.4
[2022-06-04] MEDS: SEVELAMER 800 MG TAB PO SCH ×2 (12:13→17:40)
--- NOTE | 2022-06-04 12:46 | P.PN ---
Subjective Patient is seen in follow-up for end-stage renal disease. He is maintained on hemodialysis on Friday schedule. Sitting up in chair. On 2 L is a cannula. Denies chest pain or shortness of breath. Feels weak. Vital signs are stable. General: No acute distress. HEENT: Head exam is unremarkable. LUNGS: Breath sounds decreased. HEART: Rate and Rhythm are regular. ABDOMEN: Soft, no distention. EXTREMITITES: Trace edema. Objective - Vital Signs Vital signs: Vital Signs Temp 98.2 F 06/04/22 08:00 Pulse 77 06/04/22 11:41 Resp 14 06/04/22 11:41 BP 100/66 06/04/22 11:41 Pulse Ox 99 06/04/22 11:41 FiO2 Intake & Output 06/03/22 06/04/22 06/04/22 18:59 06:59 18:59 Intake Total 120 Balance 120 Weight 45 kg 65.952 kg Intake: Oral 120 Other: # Voids 1 # Bowel Movements 2 - Labs CBC & Chem 7: 06/03/22 01:38 06/04/22 07:47 Labs: Abnormal Lab Results - Last 24 Hours (Table) 06/03/22 06/04/22 Range/Units 14:35 07:47 Carbon Dioxide 20 L (22-30) mmol/L BUN 64 H (9-20) mg/dL Creatinine 6.94 H (0.66-1.25) mg/dL Calcium 7.4 L (8.4-10.2) mg/dL Troponin I 0.242 H* (0.000-0.034) ng/mL Microbiology - Last 24 Hours (Table) 06/03/22 10:17 Blood Culture - Preliminary Blood No Growth after 24 hours 06/03/22 10:17 Blood Culture - Preliminary Blood No Growth after 24 hours Assessment and Plan Plan: Assessment: 1. End-stage renal disease maintained on hemodialysis on Friday schedule. 2. Abdominal pain with nausea and vomiting. Questionable cholecystitis. Surgery following. No interventions planned. 3. Chronic systolic CHF with ejection fraction of 10-20% with severe aortic stenosis. 4. Hypomagnesemia from poor intake. Being replaced. 5. 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 Plan: Hemodialysis today. Add oral magnesium oxide. Low-salt diet and 1500 mL fluid restriction.
--- NOTE | 2022-06-04 14:10 | P.PN ---
Subjective Progress Note Date: 06/04/22 CHIEF COMPLAINT: Chronic cholecystitis HISTORY OF PRESENT ILLNESS: Patient sitting at bedside. Denies any abdominal pain. Tolerating diet. Denies any nausea or vomiting. Patient seen by cardiology regarding elevated troponins and they feel is secondary to his end- stage renal disease. Afebrile. PHYSICAL EXAM: VITAL SIGNS: Reviewed. GENERAL: Well-developed in no acute distress. HEENT: No sclera icterus. Extraocular movements grossly intact. Moist buccal mucosa. Head is atraumatic, normocephalic. ABDOMEN: Soft. Nondistended. Nontender. NEUROLOGIC: Alert and oriented. Cranial nerves II through XII grossly intact. ASSESSMENT: 1. Chronic cholecystitis PLAN: -Recommend outpatient laparoscopic cholecystectomy -Continue supportive care Physician Dry Box Operator note has been reviewed by physician. Signing provider agrees with the documented findings, assessment, and plan of care. Objective - Vital Signs Vital signs: Vital Signs Temp 98.2 F 06/04/22 08:00 Pulse 77 06/04/22 11:41 Resp 14 06/04/22 11:41 BP 100/66 06/04/22 11:41 Pulse Ox 99 06/04/22 11:41 FiO2 Intake & Output 06/03/22 06/04/22 06/04/22 18:59 06:59 18:59 Intake Total 120 Balance 120 Weight 45 kg 65.952 kg Intake: Oral 120 Other: # Voids 1 # Bowel Movements 2 - Labs CBC & Chem 7: 06/03/22 01:38 06/04/22 07:47 Labs: Abnormal Lab Results - Last 24 Hours (Table) 06/03/22 06/04/22 Range/Units 14:35 07:47 Carbon Dioxide 20 L (22-30) mmol/L BUN 64 H (9-20) mg/dL Creatinine 6.94 H (0.66-1.25) mg/dL Calcium 7.4 L (8.4-10.2) mg/dL Troponin I 0.242 H* (0.000-0.034) ng/mL Microbiology - Last 24 Hours (Table) 06/03/22 10:17 Blood Culture - Preliminary Blood No Growth after 24 hours 06/03/22 10:17 Blood Culture - Preliminary Blood No Growth after 24 hours
[2022-06-04] MEDS: ISOSORBIDE MONONITRATE ER 30 MG TAB.ER.24H PO SCH (16:03)
[2022-06-04] MEDS: MAGNESIUM OXIDE 400 MG TAB PO SCH (16:04)
[2022-06-04] MEDS: metroNIDAZOLE 500 MG TAB PO SCH ×2 (16:04→21:37)
[2022-06-04] MEDS: MAGNESIUM SULFATE-D5W PMX 1 GM in DEXTROSE/WATER 1 100ML.BAG IVPB SCH ×2 (16:06→18:53)
[2022-06-04] MEDS: ATORVASTATIN 10 MG TAB PO SCH (20:19)
[2022-06-04] MEDS ORDERED: CEFDINIR 300 MG CAP PO SCH (21:00)
[2022-06-05] MEDS: HEPARIN SODIUM,PORCINE/PF 5,000 UNIT/0.5 ML SYRINGE SQ SCH ×2 (00:23→08:59)
[2022-06-05] MEDS: oxyCODONE-APAP 5-325MG 1 EACH TAB PO PRN (06:33)
--- NOTE | 2022-06-05 07:26 | PN ---
PROGRESS NOTE SUBJECTIVE: Mr. Benedict is a gentleman with acute cholecystitis and also has what seems to be an ischemic cardiomyopathy-type picture. He was seen in consultation by Dr. Phillips yesterday. He has end-stage renal disease, bouts of nausea, mild troponin elevation which I do not believe is related to a significant myocardial injury. He has cardiomyopathy and end-stage renal failure, on hemodialysis. He is doing somewhat better today. His cholecystitis is being managed conservatively. Troponin elevation does not suggest myocardial injury. PHYSICAL EXAMINATION: VITALS: Stable. HEART: S1, S2 heard normally with ejection systolic murmur at the base. Second heart sound is preserved. LUNGS: Reveal diminished air entry. ABDOMEN: Unchanged. LOWER EXTREMITY: Unchanged. PLAN: To continue current medications, and we will see him as needed. MMODL / IJN: [id number] /
[2022-06-05 08:17] VITALS: BP 98/60; PULSE 75; RESP 16; TEMP 98.3
[2022-06-05] MEDS: NON FORMULARY DRUG (Omega-3/Dha/Epa/Fish Oil [Fish Oil 1,000 Mg Softgel] 1 EACH Capsule) PO SCH (08:35)
[2022-06-05] MEDS: metroNIDAZOLE 500 MG TAB PO SCH (08:58)
[2022-06-05] MEDS: SEVELAMER 800 MG TAB PO SCH ×2 (08:58→12:26)
[2022-06-05] MEDS: ASPIRIN 81 MG PO SCH (08:59)
[2022-06-05] MEDS: MAGNESIUM OXIDE 400 MG TAB PO SCH (08:59)
[2022-06-05] MEDS: ISOSORBIDE MONONITRATE ER 30 MG TAB.ER.24H PO SCH (08:59)
[2022-06-05] MEDS: CHOLECALCIFEROL 25 MCG (1000 IU) TABLET PO SCH (08:59)
--- NOTE | 2022-06-05 10:40 | P.DS ---
Providers Date of admission: 06/03/22 10:34 Expected date of discharge: 06/05/22 Attending physician: Miguel Ferrara MD Consults: 06/03/22 10:33 Consult Physician Urgent Consulting Provider: Adam Villatoro Consult Reason/Comments: Evaluation for dialysis Do you want consulting provider notified?: Yes Consult Physician Urgent Consulting Provider: Mj Phillips Consult Reason/Comments: Elevated troponin, chronic renal failure Do you want consulting provider notified?: Yes 06/03/22 10:37 Consult Physician Routine Consulting Provider: Corbin Hahn Consult Reason/Comments: Cholecystitis Do you want consulting provider notified?: Already Contacted 06/04/22 15:37 Consult to Palliative Care Routine Consulting Provider: Payton Harp Consult Reason/Comments: high palliative screening score Do you want consulting provider notified?: Yes Primary care physician: Fransisco Pereira Hospital Course: Discharge Diagnosis: Acute on chronic cholecystitis Acute abdominal pain Nausea and vomiting Diverticulosis without diverticulitis History of systolic CHF EF 10-20% Mild right pleural effusion Severe aortic stenosis Elevated troponin ESRD on hemodialysis Hypomagnesemia Macrocytic anemia Mild thrombocytopenia Hospital Course: 76-year-old male with history of ESRD on hemodialysis, systolic CHF with EF 10- 20%, severe aortic stenosis, multiple other comorbidities presenting with nausea and vomiting. In the ED, patient was tachycardic to 102, normal blood pressure, afebrile and saturating well on room air. Laboratory workup was significant for macrocytic anemia at baseline, mild thrombocytopenia, magnesium 1.5, elevated BUN/creatinine, elevated troponin of 0.233, elevated ALP, proBNP elevated at 119,000, similar to prior, elevated lipase at 560. Right upper quadrant ultrasound showed dilated gallbladder with pericholecystic fluid and hepatic steatosis. CT abdomen and pelvis showed mild right pleural effusion, dilated gallbladder suggestive cholecystitis and mild colonic diverticulosis without diverticulitis. Patient was given Zosyn in the ED, and magnesium, and admitted for cholecystitis. Surgery consulted, no acute intervention. Needs outpatient follow-up for elective cholecystectomy. Will be discharged on oral antibiotics. Cardiology consulted, no changes in medications. Nephrology consulted, had dialysis as scheduled. Labs stable at Discharge. Patient seen and examined at bedside. Vital signs reviewed and stable. General: nontoxic, no distress, appears at stated age, chronically ill-appearing Derm: warm, dry Head: atraumatic, normocephalic, symmetric Eyes: EOMI, no lid lag, anicteric sclera, pupils equal round reactive to light ENT: Nose and ears atraumatic Neck: No thyromegaly, supple Mouth: no lip lesion, mucus membranes moist Cardiovascular: S1S2 reg, no murmur, trace peripheral, left arm AV fistula Lungs: Bilateral fine crackles at the bases, no wheeze, no accessory muscle use, supplemental oxygen Abdominal: soft, nontender to palpation, no guarding, no appreciable organomegaly Ext: no gross muscle atrophy, muscle strength muscle strength 5 out of 5 in all 4 extremities, no contractures Neuro: CN II-XII grossly intact Psych: Alert, oriented, appropriate affect A total of 37 minutes of time were spent preparing this complex discharge summary. Patient was discharged on 06/05/22 at 9:39. Patient Condition at Discharge: Stable Plan - Discharge Summary Discharge Rx Participant: No New Discharge Prescriptions: New metroNIDAZOLE [Flagyl] 500 mg PO TID #9 tab Magnesium Oxide [Mag-Ox] 400 mg PO DAILY #30 tab Cefdinir [Omnicef] 300 mg PO Q12HR #6 cap Continue Atorvastatin [Lipitor] 10 mg PO HS Cholecalciferol [Vitamin D3 (25 Mcg = 1000 Iu)] 50 mcg PO DAILY Aspirin 81 mg PO DAILY Folic Acid/Vit B Complex and C [Emy-Catalino Tablet] 0.8 mg PO TUTHSA Sevelamer Carbonate 800 mg PO TID-W/MEALS [place]-3/Dha/Epa/Fish Oil [Fish Oil 1,000 mg Softgel] 1 cap PO DAILY Isosorbide Mononitrate ER [Imdur] 30 mg PO DAILY rOPINIRole HCL [Requip] 2 mg PO BID oxyCODONE-APAP 5-325MG [Percocet 5-325 mg] 1 tab PO TID PRN #9 tab PRN Reason: Pain Discharge Medication List Atorvastatin [Lipitor] 10 mg PO HS 01/29/22 [History] Cholecalciferol [Vitamin D3 (25 Mcg = 1000 Iu)] 50 mcg PO DAILY 01/29/22 [History] [place]-3/Dha/Epa/Fish Oil [Fish Oil 1,000 mg Softgel] 1 cap PO DAILY 01/29/22 [History] Isosorbide Mononitrate ER [Imdur] 30 mg PO DAILY 01/30/22 [History] Aspirin 81 mg PO DAILY 05/01/22 [History] rOPINIRole HCL [Requip] 2 mg PO BID 05/01/22 [History] oxyCODONE-APAP 5-325MG [Percocet 5-325 mg] 1 tab PO TID PRN #9 tab 05/08/22 [Rx] Folic Acid/Vit B Complex and C [Emy-Catalino Tablet] 0.8 mg PO TUTHSA 06/03/22 [History] Sevelamer Carbonate 800 mg PO TID-W/MEALS 06/03/22 [History] Cefdinir [Omnicef] 300 mg PO Q12HR #6 cap 06/05/22 [Rx] Magnesium Oxide [Mag-Ox] 400 mg PO DAILY #30 tab 06/05/22 [Rx] metroNIDAZOLE [Flagyl] 500 mg PO TID #9 tab 06/05/22 [Rx] Follow up Appointment(s)/Referral(s): Fransisco Pereira MD [Primary Care Provider] - 1-2 days [facility] [NON-STAFF] - 1-2 Days Corbin Hahn MD [STAFF PHYSICIAN] - 06/14/22 11:15 am Activity/Diet/Wound Care/Special Instructions: Call your oxygen supply company and let them know that you are interested in being put on the list for a portable oxygen concentrator. Discharge Disposition: HOME WITH HOME HEALTH SERVICES
--- NOTE | 2022-06-05 11:35 | P.PN ---
Subjective Progress Note Date: 06/05/22 CHIEF COMPLAINT: Chronic cholecystitis HISTORY OF PRESENT ILLNESS: Patient cleaning up in the bathroom. Denies any abdominal pain. Tolerating diet. Denies any nausea or vomiting. Patient seen by cardiology regarding elevated troponins and they feel is secondary to his end-stage renal disease. Afebrile. Patient being discharged today PHYSICAL EXAM: VITAL SIGNS: Reviewed. GENERAL: Well-developed in no acute distress. HEENT: No sclera icterus. Extraocular movements grossly intact. Moist buccal mucosa. Head is atraumatic, normocephalic. ABDOMEN: Soft. Nondistended. Nontender. NEUROLOGIC: Alert and oriented. Cranial nerves II through XII grossly intact. ASSESSMENT: 1. Chronic cholecystitis PLAN: -Recommend outpatient laparoscopic cholecystectomy -Continue supportive care -Patient can be discharged from surgical standpoint Physician Record Clerk Salesperson note has been reviewed by physician. Signing provider agrees with the documented findings, assessment, and plan of care. Objective - Vital Signs Vital signs: Vital Signs Temp 98.3 F 06/05/22 08:00 Pulse 75 06/05/22 09:10 Resp 16 06/05/22 09:10 BP 98/60 06/05/22 08:00 Pulse Ox 100 06/05/22 08:00 FiO2 Intake & Output 06/04/22 06/05/22 06/05/22 18:59 06:59 18:59 Intake Total 360 980 Output Total 3300 Balance 360 -2320 Weight 65.952 kg Intake: Oral 360 680 Hemodialysis 300 Output: Hemodialysis 3300 Other: # Voids 4 # Bowel Movements 2 - Labs CBC & Chem 7: 06/03/22 01:38 06/04/22 07:47 Labs: Microbiology - Last 24 Hours (Table) 06/03/22 10:17 Blood Culture - Preliminary Blood No Growth after 24 hours 06/03/22 10:17 Blood Culture - Preliminary Blood No Growth after 24 hours
--- NOTE | 2022-06-05 12:27 | P.CONS ---
History of Present Illness - Reason for Consult Consult date: 06/05/22 Goals of care Requesting physician: Miguel Ferrara - Chief Complaint N/V, abdominal pain - History of Present Illness Patient is a 76-year-old male with history of ESRD on hemodialysis, systolic CHF with EF 10-20%, severe aortic stenosis, multiple other comorbidities presenting with nausea and vomiting. He claims that he was recently admitted to the hospital for shortness of breath, discharged to subacute rehab. He then got home last week, and had his dialysis on Friday. He woke up on 06/03/22 with nausea and vomiting and came to the emergency department. Since then he has also noted some right-sided abdominal pain, diffuse, unable to localize, feels tender to palpation, at worst is 10/10 with palpation. He denies any further nausea or vomiting. He denies any fevers or chills. He denies any chest pain, shortness of breath, urinary or bowel complaints. In the ED, patient was tachycardic to 102, normal blood pressure, afebrile and saturating well on room air. Laboratory workup was significant for macrocytic anemia at baseline, mild thrombocytopenia, magnesium 1.5, elevated BUN/creatinine, elevated troponin of 0.233, elevated ALP, proBNP elevated at 119,000, similar to prior, elevated lipase at 560. Right upper quadrant ultrasound showed dilated gallbladder with pericholecystic fluid and hepatic steatosis. CT abdomen and pelvis showed mild right pleural effusion, dilated gallbladder suggestive cholecystitis and mild colonic diverticulosis without diverticulitis. Patient was given Zosyn in the ED, and magnesium, and admitted for acute cholecystitis. Per surgery, probable mild chronic cholecystitis. Patient's white count was normal. His liver function tests are also normal. No surgical intervention is planned at this point. He may benefit from outpatient laparoscopic cholecystectomy in the future. 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%, history of renal chest and 2 in 1992 from a donor and in 1995 from a living donor, history of neck fracture, history of Covid 19 infection, severe aortic stenosis, anemia of chronic disease History of Any Multi-Drug Resistant Organisms: None Reported Past Surgical History: Appendectomy Additional Past Surgical History / Comment(s): Kidney transplant times 07/28/1992 and 1995 and the patient has a fistula in the left upper extremity Past Anesthesia/Blood Transfusion Reactions: No Reported Reaction Past Psychological History: No Psychological Hx Reported Smoking Status: Former smoker Past Alcohol Use History: Rare Past Drug Use History: None Reported - Past Family History Mother Family Medical History: Cancer Additional Family Medical History / Comment(s): pancreatic cancer Father Family Medical History: CVA/TIA Additional Family Medical History / Comment(s): father of stroke , mother pancreatic cancer Medications and Allergies Home Medications Medication Instructions Recorded Confirmed Type Atorvastatin [Lipitor] 10 mg PO HS 01/29/22 06/03/22 History Cholecalciferol [Vitamin D3 (25 50 mcg PO DAILY 01/29/22 06/03/22 History Mcg = 1000 Iu)] [place]-3/Dha/Epa/Fish Oil [Fish Oil 1 cap PO DAILY 01/29/22 06/03/22 History 1,000 mg Softgel] Isosorbide Mononitrate ER [Imdur] 30 mg PO DAILY 01/30/22 06/03/22 History Aspirin 81 mg PO DAILY 05/01/22 06/03/22 History rOPINIRole HCL [Requip] 2 mg PO BID 05/01/22 06/03/22 History oxyCODONE-APAP 5-325MG [Percocet 1 tab PO TID PRN #9 tab 05/08/22 06/03/22 Rx 5-325 mg] Folic Acid/Vit B Complex and C 0.8 mg PO TUTHSA 06/03/22 06/03/22 History [Emy-Catalino Tablet] Sevelamer Carbonate 800 mg PO TID-W/MEALS 06/03/22 06/03/22 History Cefdinir [Omnicef] 300 mg PO Q12HR #6 cap 06/05/22 Rx Magnesium Oxide [Mag-Ox] 400 mg PO DAILY #30 tab 06/05/22 Rx metroNIDAZOLE [Flagyl] 500 mg PO TID #9 tab 06/05/22 Rx Allergies Allergy/AdvReac Type Severity Reaction Status Date / Time enalaprilat [From Vasotec] Allergy Swelling Verified 06/03/22 11:06 lisinopril Allergy Swelling Verified 06/03/22 11:06 Physical Exam Vitals: Vital Signs Temp Pulse Resp BP Pulse Ox 06/05/22 09:10 75 16 06/05/22 08:00 98.3 F 75 16 98/60 100 06/05/22 02:08 98.0 F 81 17 132/74 95 06/04/22 23:56 98.3 F 80 17 102/62 100 06/04/22 22:14 97.7 F 77 16 139/72 06/04/22 20:00 98.3 F 81 18 127/66 98 06/04/22 16:07 98.2 F 78 20 96/58 100 Intake and Output 06/04/22 06/05/22 06/05/22 22:59 06:59 14:59 Intake Total 980 Output Total 3300 Balance -2320 Intake: Oral 680 Hemodialysis 300 Output: Hemodialysis 3300 Other: # Voids 4 General: Well developed, well nourished. No acute distress. Chronically ill appearing HEENT: Head is atraumatic, normocephalic. Lungs: Respirations even and nonlabored. Abdomen/GI: Soft. No guarding, rigidity, or abdominal tenderness. : No suprapubic tenderness. Musculoskeletal/ Extremities: SMALL, no joint deformity or swelling. No gross atrophy. + generalized weakness Skin: Warm and dry Neurologic: Awake, alert and oriented times 3. CN II-XII grossly intact. No focal deficits. Psychiatric: Appropriate mood and affect. Results CBC & Chem 7: 06/03/22 01:38 06/04/22 07:47 Labs: Microbiology - Last 24 Hours (Table) 06/03/22 10:17 Blood Culture - Preliminary Blood No Growth after 24 hours 06/03/22 10:17 Blood Culture - Preliminary Blood No Growth after 24 hours Chest x-ray: report reviewed CT scan - abdomen: report reviewed CT scan - pelvis: report reviewed US - abdomen: report reviewed Assessment and Plan Assessment: Social * Occupation - Retired * Marital status - to , Sissy * Residence - house * Who do you reside with - , daughter, and son-in-law * ETOH - no * Tobacco - former smoker * Illicit drugs - no Spiritual/Cultural * A spiritual person - no * Sikh - N/A Functional Assessment * Able to walk independently - yes * Assistive devices - walker * Able to use the bathroom independently - yes * Continent - yes * Require assistance bathing- minimal assistance * Able to feed self - yes * Who prepares meals - and daughter * How many meals a day eaten - 2 * Transportation - son-in-law * Able to shop - no * Who manages medications - daughter * Who manages finances -patient Psychological/Emotional * Dementia present - no * Insight and judgment - intact * Depression - no * Suicidal thoughts - * Good support system - family * Patients goals - optimize functionality * Frequent hospitalizations - no * Desire to keep coming back to the hospital for treatment - yes Symptoms * Pain - 5/10 toe pain, continue Percocet * Fatigue - + generalized weakness and fatigue * SOB - no * Insomnia - no * N/V - no * Anxiety - no * Depression - no * Confusion - no * Agitation - no * Hallucinations - no * Appetite/weight loss - decreased appetite, no recent weight loss. Continue with renal diet and 1.5 L fluid restriction * Dysphagia - no * Constipation - no, LBM 06/04 * Incontinence - no * Itch - no * Cough - no Plan: Summary/Goals - the patient is hard of hearing. He states he is going home today. The patient multiple chronic illnesses, including end-stage renal disease and CHF. He states they are well managed at home and sees Dr. Pereira. Information provided regarding palliative care philosophies and services available. The patient stated that he could use an extra layer of support at home. He agreed to try outpatient palliative care services and was assured that he may terminate these services at any point. Recommendations - home with [facility] services and palliative care Advanced Directives - none on file Code Status - DO NOT RESUSCITATE Thank you for this consultation Payton Harp [facility] Palliative Care [facility] [id number] Email: [email or web address] Time with Patient: Greater than 30
--- NOTE | 2022-06-05 13:36 | P.PN ---
Subjective Patient is seen in follow-up for end-stage renal disease. He is maintained on hemodialysis on Friday schedule. On 3 L nasal cannula. Denies chest pain or shortness of breath. No active complaints. Vital signs are stable. General: No acute distress. HEENT: Head exam is unremarkable. LUNGS: Breath sounds decreased. HEART: Rate and Rhythm are regular. ABDOMEN: Soft, no distention. EXTREMITITES: Trace edema. Objective - Vital Signs Vital signs: Vital Signs Temp 98.3 F 06/05/22 08:00 Pulse 75 06/05/22 09:10 Resp 16 06/05/22 09:10 BP 98/60 06/05/22 08:00 Pulse Ox 100 06/05/22 08:00 FiO2 Intake & Output 06/04/22 06/05/22 06/05/22 18:59 06:59 18:59 Intake Total 360 980 Output Total 3300 Balance 360 -2320 Weight 65.952 kg Intake: Oral 360 680 Hemodialysis 300 Output: Hemodialysis 3300 Other: # Voids 4 # Bowel Movements 2 - Labs CBC & Chem 7: 06/03/22 01:38 06/04/22 07:47 Labs: Microbiology - Last 24 Hours (Table) 06/03/22 10:17 Blood Culture - Preliminary Blood No Growth after 48 hours 06/03/22 10:17 Blood Culture - Preliminary Blood No Growth after 48 hours Assessment and Plan Plan: Assessment: 1. End-stage renal disease maintained on hemodialysis on Friday schedule. 2. Abdominal pain with nausea and vomiting. Questionable cholecystitis. Surgery following. No interventions planned this admission. 3. Chronic systolic CHF with ejection fraction of 10-20% with severe aortic stenosis. 4. Hypomagnesemia from poor intake. Being replaced. Better. On oral magnesium oxide. 5. 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 Plan: Hemodialysis tomorrow. Low-salt diet and 1500 mL fluid restriction. Increase Mag-Ox to twice a day.
[2022-06-05] MEDS ORDERED: MAGNESIUM OXIDE 400 MG TAB PO SCH (21:00)
== END 2022-06-05 14:51 | disposition home health service (06) | DRG 444 ==
LOC: EC 01:02 → 3SCARD 10:34 → 4SSUR 06-04 23:24
PROVIDERS: ADMIT Student in an Organized Health Care Education/Training Program; ATTEND Student in an Organized Health Care Education/Training Program
PROC: 5A1D70Z Performance of Urinary Filtration, Intermittent, Less than 6 Hours Per Day (ICD-10-PCS; principal; 2022-06-04)
DX: K80.12 Calculus of gallbladder with acute and chronic cholecystitis without obstruction (principal); N18.6 End stage renal disease; I13.2 Hypertensive heart and chronic kidney disease with heart failure and with stage 5 chronic kidney disease, or end stage renal disease; I50.22 Chronic systolic (congestive) heart failure; J98.11 Atelectasis; R45.851 Suicidal ideations; Z66 Do not resuscitate; R79.89 Other specified abnormal findings of blood chemistry; I25.10 Atherosclerotic heart disease of native coronary artery without angina pectoris; K57.90 Diverticulosis of intestine, part unspecified, without perforation or abscess without bleeding; E11.22 Type 2 diabetes mellitus with diabetic chronic kidney disease; E78.5 Hyperlipidemia, unspecified; E83.42 Hypomagnesemia; F10.20 Alcohol dependence, uncomplicated; F17.210 Nicotine dependence, cigarettes, uncomplicated; I25.5 Ischemic cardiomyopathy; D53.9 Nutritional anemia, unspecified; D63.8 Anemia in other chronic diseases classified elsewhere; R01.1 Cardiac murmur, unspecified; R00.0 Tachycardia, unspecified; D69.6 Thrombocytopenia, unspecified; J44.9 Chronic obstructive pulmonary disease, unspecified; I08.3 Combined rheumatic disorders of mitral, aortic and tricuspid valves; K76.0 Fatty (change of) liver, not elsewhere classified; K82.8 Other specified diseases of gallbladder; M89.8X9 Other specified disorders of bone, unspecified site; R56.9 Unspecified convulsions; Z79.82 Long term (current) use of aspirin; Z79.899 Other long term (current) drug therapy; Z86.16 Personal history of COVID-19; Z86.73 Personal history of transient ischemic attack (TIA), and cerebral infarction without residual deficits; Z99.2 Dependence on renal dialysis; Z87.81 Personal history of (healed) traumatic fracture
CPT/HCPCS: 36415; 71046; 74176; 76705; 80048; 80053; 82607; 82746; 83690; 83735; 83880; 84484; 85025; 87040; 87340; 90935; 93005; 93306; 96372; 96374; 96375; 99285

== ENCOUNTER 2022-06-22 03:13 | Inpatient (IN) | payer MEDICARE, OTHER ==
--- NOTE | 2022-06-22 03:20 | ED ---
SOB HPI - General Stated Complaint: SOB Time Seen by Provider: 06/22/22 03:18 Source: RN notes reviewed, old records reviewed Mode of arrival: EMS Limitations: no limitations - History of Present Illness Initial Comments: This is a 68-year-old male to the emergency department for evaluation presents today for evaluation severe shortness of breath cough can't catch his breath ca n't take a deep breath. Patient has history of dialysis renal failure CHF. Patient has significant difficulty in breathing and is scheduled for dialysis this morning. Patient is denying fevers, no chest pain MD Complaint: shortness of breath, cough -: days(s) Severity: moderate Severity scale (1-10): 5 Quality: dull Consistency: intermittent Improves With: oxygen, rest Worsens With: exertion, movement Context: recent URI, anxiety, recent illness Associated Symptoms: cough, nausea/vomiting Treatments Prior to Arrival: none - Related Data Home Medications Medication Instructions Recorded Confirmed Atorvastatin [Lipitor] 10 mg PO HS 01/29/22 06/03/22 Cholecalciferol [Vitamin D3 (25 50 mcg PO DAILY 01/29/22 06/03/22 Mcg = 1000 Iu)] [place]-3/Dha/Epa/Fish Oil [Fish Oil 1 cap PO DAILY 01/29/22 06/03/22 1,000 mg Softgel] Isosorbide Mononitrate ER [Imdur] 30 mg PO DAILY 01/30/22 06/03/22 Aspirin 81 mg PO DAILY 05/01/22 06/03/22 rOPINIRole HCL [Requip] 2 mg PO BID 05/01/22 06/03/22 Folic Acid/Vit B Complex and C 0.8 mg PO TUTHSA 06/03/22 06/03/22 [Emy-Catalino Tablet] Sevelamer Carbonate 800 mg PO TID-W/MEALS 06/03/22 06/03/22 Previous Rx's Medication Instructions Recorded oxyCODONE-APAP 5-325MG [Percocet 1 tab PO TID PRN #9 tab 05/08/22 5-325 mg] Cefdinir [Omnicef] 300 mg PO Q12HR #6 cap 06/05/22 Magnesium Oxide [Mag-Ox] 400 mg PO DAILY #30 tab 06/05/22 metroNIDAZOLE [Flagyl] 500 mg PO TID #9 tab 06/05/22 Allergies Allergy/AdvReac Type Severity Reaction Status Date / Time enalaprilat [From Vasotec] Allergy Swelling Verified 06/03/22 11:06 lisinopril Allergy Swelling Verified 06/03/22 11:06 Review of Systems ROS Statement: Those systems with pertinent positive or pertinent negative responses have been documented in the HPI. ROS Other: All systems not noted in ROS Statement are negative. 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%, history of renal chest and 2 in 1992 from a donor and in 1995 from a living donor, history of neck fracture, history of Covid 19 infection, severe aortic stenosis, anemia of chronic disease History of Any Multi-Drug Resistant Organisms: None Reported Past Surgical History: Appendectomy Additional Past Surgical History / Comment(s): Kidney transplant times 07/28/1992 and 1995 and the patient has a fistula in the left upper extremity Past Anesthesia/Blood Transfusion Reactions: No Reported Reaction Past Psychological History: No Psychological Hx Reported Smoking Status: Former smoker Past Alcohol Use History: Rare Past Drug Use History: None Reported - Past Family History Mother Family Medical History: Cancer Additional Family Medical History / Comment(s): pancreatic cancer Father Family Medical History: CVA/TIA Additional Family Medical History / Comment(s): father of stroke , mother pancreatic cancer General Exam General appearance: anxious Head exam: Present: atraumatic, normocephalic, normal inspection Eye exam: Present: normal appearance, PERRL, EOMI. Absent: scleral icterus, conjunctival injection, periorbital swelling ENT exam: Present: normal exam, mucous membranes moist Neck exam: Present: normal inspection. Absent: tenderness, meningismus, lymphadenopathy Respiratory exam: Present: respiratory distress, rales, accessory muscle use, decreased breath sounds, prolonged expiratory. Absent: wheezes, rhonchi, stridor Cardiovascular Exam: Present: regular rate, normal rhythm, normal heart sounds. Absent: systolic murmur, diastolic murmur, rubs, gallop, clicks GI/Abdominal exam: Present: soft, normal bowel sounds. Absent: distended, tenderness, guarding, rebound, rigid Extremities exam: Present: normal inspection, full ROM, normal capillary refill. Absent: tenderness, pedal edema, joint swelling, calf tenderness Back exam: Present: normal inspection Neurological exam: Present: alert, oriented X3, CN II-XII intact Psychiatric exam: Present: normal affect, normal mood Skin exam: Present: warm, dry, intact, normal color. Absent: rash Course Vital Signs 06/22/22 03:21 Temperature 98.5 F Pulse Rate 102 H Respiratory 22 Rate Blood Pressure 124/88 O2 Sat by Pulse 100 Oximetry - Reevaluation(s) Reevaluation #1: 06/22/22 03:19 Medical record is reviewed Reevaluation #2: 06/22/22 04:32 Patient still with shortness of breath Reevaluation #3: 06/22/22 04:32 Patient informed of results and questions answered Reevaluation #4: 06/22/22 03:20 Differential Dyspnea: Coronary syndrome, arrhythmia, tamponade, asthma, COPD, pulmonary embolism, pneumonia, pneumothorax, pulmonary effusion, anaphylaxis, diabetic ketoacidosis, flailed chest, pulmonary contusion, diaphragmatic rupture, anemia, n euromuscular, this is not meant to be an all-inclusive list. Reevaluation #5: 06/22/22 03:20 Was pt. sent in by a medical professional or institution? @ -[by , PA, TRANSFER COORDINATOR, urgent care, hospital, or detention] Did you speak to anyone other than the patient for history? @ -[EMS, parent, family, police, friend?] Did you review nursing and triage notes? @ -[agree or disagree, why?] Were old charts reviewed? @ -[outside hosp., previous admissions, EMS record, old EKG, old radiological studies, urgent care reports/EKGs, detention records?] Differential Diagnosis? @ -[chest pain, altered mental status abdominal pain women, abdominal pain men, vaginal bleeding, weakness, fever, dyspnea, syncope, headache, dizziness, GI bleed, back pain, seizure] EKG interpreted by me (3pts min.)? @ -[none] X-rays interpreted by me (1pt min.)? @ -[none] CT interpreted by me (1pt min.)? @ -[none] U/S interpreted by me (1pt. min.)? @ -[none] What testing was considered but not performed? (CT, X-rays, U/S, labs)? Why? @ [CT, X-rays, U/S, labs? Why?] What meds were considered but not given? Why? @ -[none] Did you discuss the management of the patient with other professionals? @ -[professionals i.e. Dr, PA, TRANSFER COORDINATOR, Lab, RT, Psych Nurse, Orthopedics Teacher, Bag Inspector, Teacher, Assistant Counsel, disease case manager? Give summary] Did you reconcile home meds? @ -[none] Was smoking cessation discussed for >3mins.? @ -[none] Was critical care preformed (if so, how long)? @ -[none] Were there social determinants of health that impacted care today? How? (Homelessness, low income, unemployed, alcoholism, drug addiction, transportation, low edu. Level, literacy, decrease access to med. care, senior living, rehab)? @ -[Homelessness, low income, unemployed, alcoholism, drug addiction, transport ation, low edu. Level, literacy, decrease access to med. care, senior living, rehab?] Was there de-escalation of care discussed even if they declined? (Discuss DNR or withdrawal of care, Hospice)? @ -[Discuss DNR or withdrawal of care, Hospice?] What co-morbidities impacted this encounter? (DM, HTN, Smoking, COPD, CAD, Cancer, CVA, Hep., AIDS, mental health diagnosis, sleep apnea, morbid obesity)? @ -[DM, HTN, Smoking, COPD, CAD, Cancer, CVA, Hep., AIDS, mental health diagnosis, sleep apnea, morbid obesity?] Was patient admitted / discharged? @ -[hospital course] Undiagnosed new problem with uncertain prognosis? @ -[none] Drug Therapy requiring intensive monitoring for toxicity (Heparin, Nitro, Insulin, Cardizem)? @ -[none] Were any procedures done? @ -[none] Diagnosis/symptom? @ -[default] Acute, or Chronic, or Acute on Chronic? @ -[default] Uncomplicated (without systemic symptoms) or Complicated (systemic symptoms)? @ -[default] Side effects of treatment? @ -[none] Exacerbation, Progression, or Severe Exacerbation] @ -[no] Poses a threat to life or bodily function? @ -[no] - Consultations Consultation #1: Spoke with sound who will admit this patient Medical Decision Making - Medical Decision Making 76 male DF for evaluation patient Dese for evaluation of shortness of breath patient has scheduled dialysis today states his breathing is significant. X- rays positive for CHF fluid overload and pneumonia. Will place on antibiotics. - Lab Data Result diagrams: 06/22/22 03:28 06/22/22 03:28 Lab Results 06/22/22 06/22/22 06/22/22 Range/Units 03:28 03:28 03:28 WBC 5.9 (3.8-10.6) k/uL RBC 3.22 L (4.30-5.90) m/uL Hgb 10.2 L (13.0-17.5) gm/dL Hct 32.3 L (39.0-53.0) % MCV 100.2 H (80.0-100.0) fL MCH 31.8 (25.0-35.0) pg MCHC 31.7 (31.0-37.0) g/dL RDW 15.6 H (11.5-15.5) % Plt Count 156 (150-450) k/uL MPV 11.1 Neutrophils % 78 % Lymphocytes % 9 % Monocytes % 7 % Eosinophils % 2 % Basophils % 1 % Neutrophils # 4.6 (1.3-7.7) k/uL Lymphocytes # 0.5 L (1.0-4.8) k/uL Monocytes # 0.4 (0-1.0) k/uL Eosinophils # 0.1 (0-0.7) k/uL Basophils # 0.1 (0-0.2) k/uL Macrocytosis Slight PT 12.2 H (9.0-12.0) sec INR 1.2 H (<1.2) APTT 24.9 (22.0-30.0) sec Sodium 135 L (137-145) mmol/L Potassium 5.1 (3.5-5.1) mmol/L Chloride 96 L (98-107) mmol/L Carbon Dioxide 24 (22-30) mmol/L Anion Gap 15 mmol/L BUN 68 H (9-20) mg/dL Creatinine 5.01 H (0.66-1.25) mg/dL Est GFR (CKD-EPI)AfAm 12 (>60 ml/min/1.73 sqM) Est GFR (CKD-EPI)NonAf 10 (>60 ml/min/1.73 sqM) Glucose 97 (74-99) mg/dL Calcium 7.6 L (8.4-10.2) mg/dL Phosphorus 8.9 H (2.5-4.5) mg/dL Magnesium 1.7 (1.6-2.3) mg/dL Total Bilirubin 0.9 (0.2-1.3) mg/dL AST 40 (17-59) U/L ALT 24 (4-49) U/L Alkaline Phosphatase 142 H (38-126) U/L Troponin I (0.000-0.034) ng/mL Total Protein 7.4 (6.3-8.2) g/dL Albumin 3.9 (3.5-5.0) g/dL 06/22/22 Range/Units 03:28 WBC (3.8-10.6) k/uL RBC (4.30-5.90) m/uL Hgb (13.0-17.5) gm/dL Hct (39.0-53.0) % MCV (80.0-100.0) fL MCH (25.0-35.0) pg MCHC (31.0-37.0) g/dL RDW (11.5-15.5) % Plt Count (150-450) k/uL MPV Neutrophils % % Lymphocytes % % Monocytes % % Eosinophils % % Basophils % % Neutrophils # (1.3-7.7) k/uL Lymphocytes # (1.0-4.8) k/uL Monocytes # (0-1.0) k/uL Eosinophils # (0-0.7) k/uL Basophils # (0-0.2) k/uL Macrocytosis PT (9.0-12.0) sec INR (<1.2) APTT (22.0-30.0) sec Sodium (137-145) mmol/L Potassium (3.5-5.1) mmol/L Chloride (98-107) mmol/L Carbon Dioxide (22-30) mmol/L Anion Gap mmol/L BUN (9-20) mg/dL Creatinine (0.66-1.25) mg/dL Est GFR (CKD-EPI)AfAm (>60 ml/min/1.73 sqM) Est GFR (CKD-EPI)NonAf (>60 ml/min/1.73 sqM) Glucose (74-99) mg/dL Calcium (8.4-10.2) mg/dL Phosphorus (2.5-4.5) mg/dL Magnesium (1.6-2.3) mg/dL Total Bilirubin (0.2-1.3) mg/dL AST (17-59) U/L ALT (4-49) U/L Alkaline Phosphatase (38-126) U/L Troponin I 0.180 H* (0.000-0.034) ng/mL Total Protein (6.3-8.2) g/dL Albumin (3.5-5.0) g/dL - EKG Data -: EKG Interpreted by Me (EKG is sinus tachycardia 102 [place] 158 QRS 1 QTC 420) - Radiology Data Radiology results: report reviewed (CHest x-rays positive for CHF pneumonia), image reviewed Disposition Clinical Impression: Elevated troponin, Pneumonia, Acute exacerbation of CHF (congestive heart failure), Chronic renal failure Disposition: ADMITTED IP TO THIS [facility] Condition: Fair Is patient prescribed a controlled substance at d/c from ED?: No Referrals: Fransisco Pereira MD [Primary Care Provider] - 1-2 days Time of Disposition: 04:35
[2022-06-22 03:36] LABS: Basophils # (A) 0.1 k/uL (0-0.2); Basophils % (A) 1 %; Eosinophils # (A) 0.1 k/uL (0-0.7); Eosinophils % (A) 2 %; HCT 32.3 % (39.0-53.0); HGB 10.2 gm/dL (13.0-17.5); Lymphocytes # (A) 0.5 k/uL (1.0-4.8); Lymphocytes % (A) 9 %; MCH 31.8 pg (25.0-35.0); MCHC 31.7 g/dL (31.0-37.0); MCV 100.2 fL (80.0-100.0); Macrocytosis Slight; Mean Platelet Volume 11.1; Monocytes # (A) 0.4 k/uL (0-1.0); Monocytes % (A) 7 %; Neutrophils # (A) 4.6 k/uL (1.3-7.7); Neutrophils % (A) 78 %; Platelet Count 156 k/uL (150-450); RBC 3.22 m/uL (4.30-5.90); RDW 15.6 % (11.5-15.5); WBC 5.9 k/uL (3.8-10.6)
--- NOTE | 2022-06-22 03:56 | XR ---
EXAMINATION TYPE: XR chest 1V portable DATE OF EXAM: 06/22/2022 COMPARISON: 06/03/2022 HISTORY: Short of breath TECHNIQUE: FINDINGS: Heart appears enlarged. There is pulmonary vascular congestion. There is blunting of the ri ght costophrenic angle. There are chest leads. Bony thorax is intact IMPRESSION: Congestive heart failure with right pleural effusion. Right lower lobe infiltrate. Abnorm alities appear new compared to old exam.
[2022-06-22 03:59] LABS: INR 1.2 (<1.2); Partial Thromboplastin Time 24.9 sec (22.0-30.0); Prothrombin Time 12.2 sec (9.0-12.0)
[2022-06-22 04:05] LABS: Albumin 3.9 g/dL (3.5-5.0); Calcium 7.6 mg/dL (8.4-10.2); Magnesium 1.7 mg/dL (1.6-2.3); Phosphorus 8.9 mg/dL (2.5-4.5); Potassium 5.1 mmol/L (3.5-5.1); Total Bilirubin 0.9 mg/dL (0.2-1.3); Total Protein 7.4 g/dL (6.3-8.2)
[2022-06-22] MEDS ORDERED: NALOXONE 0.4 MG/ML 1 ML VIAL IV PRN (04:29)
[2022-06-22] MEDS ORDERED: AZITHROMYCIN 500 MG in SODIUM CHLORIDE 0.9% 250 ML IVPB STA (04:33)
[2022-06-22] MEDS ORDERED: IPRATROPIUM-ALBUTEROL 3 ML NEB INHALATION PRN (04:34)
[2022-06-22] MEDS: ONDANSETRON 4 MG/2 ML VIAL IVP PRN ×2 (05:23→18:27)
--- NOTE | 2022-06-22 06:11 | P.HPIM ---
History of Present Illness H&P Date: 06/22/22 The patient is 76-year-old male with a PMH of ESRD on hemodialysis and systolic CHF with EF 10-20% who presented to the emergency room with complaints of shortness of breath. The patient reports that he has been experiencing gradually worsening shortness of breath since yesterday afternoon. He denied experiencing chest discomfort or lower extremity pain. Reports some nonproductive cough. Denies nausea, vomiting, abdominal pain, diarrhea. The patient was scheduled to undergo scheduled dialysis later today. Chest x-ray in the emergency room revealed findings consistent with fluid overload with right pleural effusion as well as a right lower lobe infiltrate. EKG reveals sinus rhythm beats per minute with left axis deviation as well as LVH with T-wave inversion in leads V5 to V6. Laboratory evaluation was remarkable for a proBNP 124,000, troponin 0.180, BUN 60, and creatinine 5.01. Review of systems: Pertinent positives and negatives as discussed in HPI, a complete review of systems was performed and all other systems are negative. Physical examination: General: non toxic, no distress, appears at stated age, normal weight Derm: Left first and second toe with scabs noted, warm Head: atraumatic, normocephalic, symmetric Eyes: EOMI, no lid lag, anicteric sclera, pupils equal round reactive to light ENT: Nose and ears atraumatic Neck: No cervical lymphadenopathy, trachea midline, supple Mouth: no lip lesion, mucus membranes moist Cardiovascular: S1S2 reg, no murmur, positive dorsalis pedis pulse bilateral, no edema Lungs: Scattered rhonchi without rales, no wheezing, no accessory muscle use Abdominal: soft, nontender to palpation, no guarding Ext: muscle strength 4 out of 5 in all 4 extremities grossly, no gross muscle atrophy, no contractures, left upper extremity fistula noted with palpable thrill Neuro: CN II-XI grossly intact, no gross focal neuro deficits Psych: Alert, oriented, appropriate affect Assessment/plan Shortness of breath, suspect secondary to community acquired pneumonia with fluid overload in setting of dialysis -Continue with empiric antibiotics Ceftriaxone and Azithromycin -Dialysis resumption Elevated troponin -At baseline Left toes scabs -Wound care consult DVT prophylaxis -Heparin subcu The patient is admitted with an anticipated greater than 2 midnight stay for evaluation of shortness of breath. CODE STATUS: No code (discussed the patient's goals of care in detail with the patient. Patient states that the event of a cardiac arrest, but he does not wish to undergo CPR or be placed on life support for any reason. He does not wish to have elective intubation or any additional forms of life support. 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%, history of renal chest and 2 in 1992 from a donor and in 1995 from a living donor, history of neck fracture, history of Covid 19 infection, severe aortic stenosis, anemia of chronic disease History of Any Multi-Drug Resistant Organisms: None Reported Past Surgical History: Appendectomy Additional Past Surgical History / Comment(s): Kidney transplant times 07/28/1992 and 1995 and the patient has a fistula in the left upper extremity Past Anesthesia/Blood Transfusion Reactions: No Reported Reaction Past Psychological History: No Psychological Hx Reported Smoking Status: Former smoker Past Alcohol Use History: Rare Past Drug Use History: None Reported - Past Family History Mother Family Medical History: Cancer Additional Family Medical History / Comment(s): pancreatic cancer Father Family Medical History: CVA/TIA Additional Family Medical History / Comment(s): father of stroke , mother pancreatic cancer Medications and Allergies Home Medications Medication Instructions Recorded Confirmed Type Atorvastatin [Lipitor] 10 mg PO HS 01/29/22 06/03/22 History Cholecalciferol [Vitamin D3 (25 50 mcg PO DAILY 01/29/22 06/03/22 History Mcg = 1000 Iu)] [place]-3/Dha/Epa/Fish Oil [Fish Oil 1 cap PO DAILY 01/29/22 06/03/22 History 1,000 mg Softgel] Isosorbide Mononitrate ER [Imdur] 30 mg PO DAILY 01/30/22 06/03/22 History Aspirin 81 mg PO DAILY 05/01/22 06/03/22 History rOPINIRole HCL [Requip] 2 mg PO BID 05/01/22 06/03/22 History oxyCODONE-APAP 5-325MG [Percocet 1 tab PO TID PRN #9 tab 05/08/22 06/03/22 Rx 5-325 mg] Folic Acid/Vit B Complex and C 0.8 mg PO TUTHSA 06/03/22 06/03/22 History [Emy-Catalino Tablet] Sevelamer Carbonate 800 mg PO TID-W/MEALS 06/03/22 06/03/22 History Cefdinir [Omnicef] 300 mg PO Q12HR #6 cap 06/05/22 Rx Magnesium Oxide [Mag-Ox] 400 mg PO DAILY #30 tab 06/05/22 Rx metroNIDAZOLE [Flagyl] 500 mg PO TID #9 tab 06/05/22 Rx Allergies Allergy/AdvReac Type Severity Reaction Status Date / Time enalaprilat [From Vasotec] Allergy Swelling Verified 06/03/22 11:06 lisinopril Allergy Swelling Verified 06/03/22 11:06 Physical Exam Vitals: Vital Signs Temp Pulse Pulse Resp BP BP Pulse Ox 06/22/22 05:40 97.9 F 105 H 18 94/64 100 06/22/22 03:21 98.5 F 102 H 22 124/88 100 Intake and Output 06/21/22 06/21/22 06/22/22 14:59 22:59 06:59 Other: Weight 68.039 kg Results CBC & Chem 7: 06/22/22 03:28 06/22/22 03:28 Labs: Abnormal Lab Results - Last 24 Hours (Table) 06/22/22 06/22/22 06/22/22 Range/Units 03:28 03:28 03:28 RBC 3.22 L (4.30-5.90) m/uL Hgb 10.2 L (13.0-17.5) gm/dL Hct 32.3 L (39.0-53.0) % MCV 100.2 H (80.0-100.0) fL RDW 15.6 H (11.5-15.5) % Lymphocytes # 0.5 L (1.0-4.8) k/uL PT 12.2 H (9.0-12.0) sec INR 1.2 H (<1.2) Sodium 135 L (137-145) mmol/L Chloride 96 L (98-107) mmol/L BUN 68 H (9-20) mg/dL Creatinine 5.01 H (0.66-1.25) mg/dL Calcium 7.6 L (8.4-10.2) mg/dL Phosphorus 8.9 H (2.5-4.5) mg/dL Alkaline Phosphatase 142 H (38-126) U/L Troponin I (0.000-0.034) ng/mL 06/22/22 Range/Units 03:28 RBC (4.30-5.90) m/uL Hgb (13.0-17.5) gm/dL Hct (39.0-53.0) % MCV (80.0-100.0) fL RDW (11.5-15.5) % Lymphocytes # (1.0-4.8) k/uL PT (9.0-12.0) sec INR (<1.2) Sodium (137-145) mmol/L Chloride (98-107) mmol/L BUN (9-20) mg/dL Creatinine (0.66-1.25) mg/dL Calcium (8.4-10.2) mg/dL Phosphorus (2.5-4.5) mg/dL Alkaline Phosphatase (38-126) U/L Troponin I 0.180 H* (0.000-0.034) ng/mL
[2022-06-22] MEDS: HEPARIN SODIUM,PORCINE/PF 5,000 UNIT/0.5 ML SYRINGE SQ SCH ×3 (08:44→23:29)
[2022-06-22] MEDS: ISOSORBIDE MONONITRATE ER 30 MG TAB.ER.24H PO SCH (08:44)
[2022-06-22] MEDS: ASPIRIN 81 MG PO SCH (08:44)
[2022-06-22] MEDS: MORPHINE SULFATE 4 MG/ML SYRINGE IV PRN ×2 (08:44→14:44)
--- NOTE | 2022-06-22 09:14 | P.NPCON ---
History of Present Illness - Reason for Consult Consult date: 06/22/22 end stage renal disease - Chief Complaint Shortness breath - History of Present Illness This is 76-year-old male known to us with ESRD on dialysis Friday. Came in because of shortness of breath. He is on oxygen nasal cannula here and is as well at home. He was recently admitted on 06/03/2022 for shortness of breath as well. At the time he was diagnosed to have cholecystitis and gallstones. Surgical intervention was delayed and he was discharged for elective cholecystectomy after antibiotics. 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%, history of renal chest and 2 in 1992 from a donor and in 1995 from a living donor, history of neck fracture, history of Covid 19 infection, severe aortic stenosis, anemia of chronic disease History of Any Multi-Drug Resistant Organisms: None Reported Past Surgical History: Appendectomy Additional Past Surgical History / Comment(s): Kidney transplant times 07/28/1992 and 1995 and the patient has a fistula in the left upper extremity Past Anesthesia/Blood Transfusion Reactions: No Reported Reaction Past Psychological History: No Psychological Hx Reported Smoking Status: Former smoker Past Alcohol Use History: Rare Past Drug Use History: None Reported - Past Family History Mother Family Medical History: Cancer Additional Family Medical History / Comment(s): pancreatic cancer Father Family Medical History: CVA/TIA Additional Family Medical History / Comment(s): father of stroke , mother pancreatic cancer Medications and Allergies Home Medications Medication Instructions Recorded Confirmed Type Atorvastatin [Lipitor] 10 mg PO HS 01/29/22 06/03/22 History Cholecalciferol [Vitamin D3 (25 50 mcg PO DAILY 01/29/22 06/03/22 History Mcg = 1000 Iu)] [place]-3/Dha/Epa/Fish Oil [Fish Oil 1 cap PO DAILY 01/29/22 06/03/22 History 1,000 mg Softgel] Isosorbide Mononitrate ER [Imdur] 30 mg PO DAILY 01/30/22 06/03/22 History Aspirin 81 mg PO DAILY 05/01/22 06/03/22 History rOPINIRole HCL [Requip] 2 mg PO BID 05/01/22 06/03/22 History oxyCODONE-APAP 5-325MG [Percocet 1 tab PO TID PRN #9 tab 05/08/22 06/03/22 Rx 5-325 mg] Folic Acid/Vit B Complex and C 0.8 mg PO TUTHSA 06/03/22 06/03/22 History [Emy-Catalino Tablet] Sevelamer Carbonate 800 mg PO TID-W/MEALS 06/03/22 06/03/22 History Cefdinir [Omnicef] 300 mg PO Q12HR #6 cap 06/05/22 Rx Magnesium Oxide [Mag-Ox] 400 mg PO DAILY #30 tab 06/05/22 Rx metroNIDAZOLE [Flagyl] 500 mg PO TID #9 tab 06/05/22 Rx Allergies Allergy/AdvReac Type Severity Reaction Status Date / Time enalaprilat [From Vasotec] Allergy Swelling Verified 06/03/22 11:06 lisinopril Allergy Swelling Verified 06/03/22 11:06 Physical Exam Vitals: Vital Signs Temp Pulse Pulse Resp BP BP Pulse Ox 06/22/22 05:40 97.9 F 105 H 18 94/64 100 06/22/22 03:21 98.5 F 102 H 22 124/88 100 Intake and Output 06/21/22 06/22/22 06/22/22 22:59 06:59 14:59 Other: Weight 68.039 kg Exam he looks anxious, is on oxygen nasal cannula. HEENT exam no JVP neck is supple no facial asymmetry Lungs are clear to auscultation fair air entry bilaterally Heart sounds unremarkable for any murmur rub gallop although is known with aortic stenosis Abdomen soft nontender Extremity exam was no edema Neurologically awake alert oriented profoundly weak Results - Lab Results Most recent lab results Calcium 7.6 mg/dL (8.4-10.2) L 06/22/22 03:28 Phosphorus 8.9 mg/dL (2.5-4.5) H 06/22/22 03:28 Magnesium 1.7 mg/dL (1.6-2.3) 06/22/22 03:28 06/22/22 03:28 06/22/22 03:28 Assessment and Plan Assessment: Impression 1. ESRD on dialysis Friday with an graft in his left upper arm. 2. Admitted with shortness of breath and congestive heart failure 3. 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 4. History of failed kidney transplant, 1995. Back on dialysis 5. History of severe aortic stenosis. 6. Anemia hemoglobin is 10.2 at target. 7. Phosphorus 8.9 and calcium is 7.6, albumin 3.9 8. Possible pneumonia currently on ceftriaxone. 9. History of cholecystitis recently 06/03/2022 Recommend addition 1. Will be dialyzed today we will attempt to take off 3 L or 20 half hours. 2. Maintain current antibiotics. 3. Monitor labs every 3-4 days Thank you for this consultation and we'll continue to follow closely
--- NOTE | 2022-06-22 09:49 | P.PN ---
Subjective Progress Note Date: 06/22/22 Hospital course: The patient is a very pleasant 76-year-old male with a past medical history of ESRD on hemodialysis (Tuesdays//Saturdays last completed dialysis session 06/20/22), peripheral vascular/arterial disease with left great toe and second toe distal ulcers, bilateral lower extremity neuropathy and systolic CHF with previously known EF of 20-25%. Patient presented to the emergency department with a chief complaint of shortness of breath accompanied by cough with greenish/grayish colored sputum production. Patient underwent a full evaluation in the emergency department. EKG completed revealing sinus tachycardia at 102 bpm with T-wave inversion in lateral leads I, aVL, V5 and V6. This is a new finding when compared to EKG completed in 06/03/22 only revealing T-wave inversion in V6. Chest x-ray completed consistent with fluid volume overload with right pleural effusion and right lower lobe infiltrate, consistent with CHF and right lower lobe pneumonia. Labs completed and reviewed. CBC revealing macrocytic anemia with hemoglobin of 10.2, at baseline levels. BMP consistent with ESRD with BUN of 68, creatinine 5.01, and GFR of 10. Liver profile revealing a chronically elevated alkaline phosphatase of 142. Covid PCR was negative. Troponin was elevated at 0.180, which appears to be chronic in nature. An proBNP elevated at 124,000. Patient admitted under our services with consultation to cardiology and nephrology. Physical exam: General: non toxic, no distress, appears at stated age Derm: warm, dry Head: atraumatic, normocephalic, symmetric Eyes: EOMI, no lid lag, anicteric sclera Mouth: no lip lesion, mucus membranes moist Cardiovascular: S1S2 reg, systolic murmur, positive diminished posterior tibial pulses bilaterally. AV fistula left upper extremity with bruit and thrill present. Lungs: Respirations even, regular, and unlabored. Lungs diminished with b ibasilar crackles. No wheezes or rhonchi noted. Abdominal: soft and distended, nontender to palpation, no guarding, no appreciable organomegaly Ext: no gross muscle atrophy, 1-2+ pitting bilateral lower extremity edema, no contractures. Left great toe and second toe distal ulcerations/wounds Neuro: CN II-XI grossly intact, no focal neuro deficits Psych: Alert, oriented, appropriate affect Assessment and plan of care: Acute exacerbation of chronic systolic heart failure with previously known EF of 20-25% Right lower lobe consolidation concerning for community-acquired pneumonia Elevated troponin, appears chronic in nature Sinus tachycardia with EKG changes -Cardiology consulted -Telemetry monitoring -ProBNP 124,000 -Daily weights -Close monitoring of I's and O's -Cardiac diet -Lasix -Continuation of cardiac medication regimen with Aspirin, atorvastatin, and isosorbide mononitrate -Antibiotics Rocephin and azithromycin -Continued close monitoring of electrolytes while diuresing. -Recent echocardiogram completed 06/03/22 revealing a severely reduced global left ventricular systolic function with an EF of 20-25% with Left great toe and second toe distal ulcerations/wounds Peripheral Arterial insufficiency Neuropathy, patient reports extreme pain and left great and second toe often at night and reports very severe at times -Wound care consulted -Patient to be referred to vascular surgery upon discharge for outpatient follow-up and further testing -Continue Requip 2 mg twice daily and Percocet as needed for pain/discomfort. CODE STATUS: DO NOT RESUSCITATE/DO NOT INTUBATE DVT prophylaxis: Heparin: Discussed with: Patient and RN Anticipated discharge date: Clinical course to determine Anticipated discharge place: Home A total of 38 minutes was spent on the care of this complex patient more than 50% of the time was spent in counseling and care coordination. I reviewed the documentation as provided by the POONAM above, who is the original author of this note. I agree with the documented assessment and plan, with the following changes: none Objective - Vital Signs Vital signs: Vital Signs Temp 97.9 F 06/22/22 05:40 Pulse 105 H 06/22/22 05:40 Resp 18 06/22/22 05:40 BP 94/64 06/22/22 05:40 Pulse Ox 100 06/22/22 05:40 FiO2 Intake & Output 06/21/22 06/22/22 06/22/22 18:59 06:59 18:59 Weight 68.039 kg - Labs CBC & Chem 7: 06/22/22 03:28 06/22/22 03:28 Labs: Abnormal Lab Results - Last 24 Hours (Table) 06/22/22 06/22/22 06/22/22 Range/Units 03:28 03:28 03:28 RBC 3.22 L (4.30-5.90) m/uL Hgb 10.2 L (13.0-17.5) gm/dL Hct 32.3 L (39.0-53.0) % MCV 100.2 H (80.0-100.0) fL RDW 15.6 H (11.5-15.5) % Lymphocytes # 0.5 L (1.0-4.8) k/uL PT 12.2 H (9.0-12.0) sec INR 1.2 H (<1.2) Sodium 135 L (137-145) mmol/L Chloride 96 L (98-107) mmol/L BUN 68 H (9-20) mg/dL Creatinine 5.01 H (0.66-1.25) mg/dL Calcium 7.6 L (8.4-10.2) mg/dL Phosphorus 8.9 H (2.5-4.5) mg/dL Alkaline Phosphatase 142 H (38-126) U/L Troponin I (0.000-0.034) ng/mL 06/22/22 Range/Units 03:28 RBC (4.30-5.90) m/uL Hgb (13.0-17.5) gm/dL Hct (39.0-53.0) % MCV (80.0-100.0) fL RDW (11.5-15.5) % Lymphocytes # (1.0-4.8) k/uL PT (9.0-12.0) sec INR (<1.2) Sodium (137-145) mmol/L Chloride (98-107) mmol/L BUN (9-20) mg/dL Creatinine (0.66-1.25) mg/dL Calcium (8.4-10.2) mg/dL Phosphorus (2.5-4.5) mg/dL Alkaline Phosphatase (38-126) U/L Troponin I 0.180 H* (0.000-0.034) ng/mL
[2022-06-22] MEDS: SEVELAMER 800 MG TAB PO SCH ×3 (11:58→17:17)
[2022-06-22] MEDS: FUROSEMIDE 10 MG/ML 4 ML VIAL IV SCH ×2 (12:13→23:29)
[2022-06-22] MEDS: ATORVASTATIN 10 MG TAB PO SCH (23:29)
[2022-06-23] MEDS: SEVELAMER 800 MG TAB PO SCH ×3 (06:54→16:02)
[2022-06-23 08:13] LABS: HCT 29.3 % (39.0-53.0); HGB 9.1 gm/dL (13.0-17.5); Hypochromasia Slight; MCH 31.9 pg (25.0-35.0); MCHC 31.2 g/dL (31.0-37.0); MCV 102.2 fL (80.0-100.0); Macrocytosis Slight; Mean Platelet Volume 10.8; Platelet Count 142 k/uL (150-450); RBC 2.86 m/uL (4.30-5.90); RDW 15.8 % (11.5-15.5); WBC 4.2 k/uL (3.8-10.6)
[2022-06-23 08:28] LABS: Albumin 3.6 g/dL (3.5-5.0); Calcium 7.7 mg/dL (8.4-10.2); Magnesium 1.7 mg/dL (1.6-2.3); Potassium 4.5 mmol/L (3.5-5.1); Total Bilirubin 0.7 mg/dL (0.2-1.3); Total Protein 7.1 g/dL (6.3-8.2)
[2022-06-23] MEDS: AZITHROMYCIN 500 MG in SODIUM CHLORIDE 0.9% 250 ML IVPB SCH (08:55)
[2022-06-23] MEDS: FUROSEMIDE 10 MG/ML 4 ML VIAL IV SCH ×2 (08:56→20:42)
[2022-06-23] MEDS: HEPARIN SODIUM,PORCINE/PF 5,000 UNIT/0.5 ML SYRINGE SQ SCH ×3 (08:56→23:11)
[2022-06-23] MEDS: ISOSORBIDE MONONITRATE ER 30 MG TAB.ER.24H PO SCH (08:56)
[2022-06-23] MEDS: ASPIRIN 81 MG PO SCH (08:56)
--- NOTE | 2022-06-23 09:16 | P.PN ---
Subjective Progress Note Date: 06/23/22 Principal diagnosis: This is 76-year-old male known to us with ESRD on dialysis Friday. Came in because of shortness of breath. He is on oxygen nasal cannula here and is as well at home. He was dialyzed yesterday and 2 L were taken off late last night. He remains still short of breath on oxygen. He was recently admitted on 06/03/2022 for shortness of breath as well. At the time he was diagnosed to have cholecystitis and gallstones. Surgical intervention was delayed and he was discharged for elective cholecystectomy after antibiotics. 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% history of kidney transplant in 1995, aortic stenosis Objective - Vital Signs Vital signs: Vital Signs Temp 97.7 F 06/23/22 03:26 Pulse 100 06/23/22 03:26 Resp 20 06/23/22 03:26 BP 110/70 06/23/22 03:26 Pulse Ox 97 06/23/22 03:26 FiO2 Intake & Output 06/22/22 06/23/22 06/23/22 18:59 06:59 18:59 Intake Total 360 358 Balance 360 358 Weight 67.3 kg Intake: Oral 360 358 Other: Voiding Method Bedside Commode Exam he looks anxious, is on oxygen nasal cannula. Short of breath HEENT exam no JVP neck is supple no facial asymmetry Lungs are significant for bilateral coarse crackle diminished air entry bilaterally Heart sounds unremarkable for any murmur rub gallop although is known with aortic stenosis Abdomen soft nontender Extremity exam was edema Neurologically awake alert oriented profoundly weak - Labs CBC & Chem 7: 06/23/22 07:44 06/23/22 07:44 Labs: Abnormal Lab Results - Last 24 Hours (Table) 06/22/22 06/22/22 06/23/22 Range/Units 08:54 12:07 07:44 RBC 2.86 L (4.30-5.90) m/uL Hgb 9.1 L (13.0-17.5) gm/dL Hct 29.3 L (39.0-53.0) % MCV 102.2 H (80.0-100.0) fL RDW 15.8 H (11.5-15.5) % Plt Count 142 L (150-450) k/uL BUN (9-20) mg/dL Creatinine (0.66-1.25) mg/dL Glucose (74-99) mg/dL Calcium (8.4-10.2) mg/dL Alkaline Phosphatase (38-126) U/L Troponin I 0.159 H* 0.174 H* (0.000-0.034) ng/mL 06/23/22 Range/Units 07:44 RBC (4.30-5.90) m/uL Hgb (13.0-17.5) gm/dL Hct (39.0-53.0) % MCV (80.0-100.0) fL RDW (11.5-15.5) % Plt Count (150-450) k/uL BUN 35 H (9-20) mg/dL Creatinine 3.58 H (0.66-1.25) mg/dL Glucose 135 H (74-99) mg/dL Calcium 7.7 L (8.4-10.2) mg/dL Alkaline Phosphatase 143 H (38-126) U/L Troponin I (0.000-0.034) ng/mL Assessment and Plan Assessment: Impression 1. ESRD on dialysis Friday with an graft in his left upper arm. 2. Admitted with shortness of breath and congestive heart failure, dialyzed yesterday 06/22/2022 2 L taken off or 3 hours was stable 3. 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 4. History of failed kidney transplant, 1995. Back on dialysis 5. History of severe aortic stenosis. 6. Anemia hemoglobin is 10.2 at target, came down to 9.1 this morning. 7. Phosphorus 8.9 and calcium is 7.6, albumin 3.9 8. Possible pneumonia currently on ceftriaxone. 9. History of cholecystitis recently 06/03/2022 Recommend addition 1. Will be dialyzed again today and will try to take off with pure ultrafiltration 2 L over 20 half hours. 2. Maintain current antibiotics. 3. Monitor labs every 3-4 days Thank you for this consultation and we'll continue to follow closely
[2022-06-23] MEDS: oxyCODONE-APAP 5-325MG 1 EACH TAB PO PRN ×3 (10:45→23:11)
--- NOTE | 2022-06-23 11:30 | P.PN ---
Subjective Progress Note Date: 06/23/22 Hospital course: The patient is a very pleasant 76-year-old male with a past medical history of ESRD on hemodialysis (Tuesdays//Saturdays last completed dialysis session 06/20/22), peripheral vascular/arterial disease with left great toe and second toe distal ulcers, bilateral lower extremity neuropathy and systolic CHF with previously known EF of 20-25%. Patient presented to the emergency department with a chief complaint of shortness of breath accompanied by cough with greenish/grayish colored sputum production. Patient underwent a full evaluation in the emergency department. EKG completed revealing sinus tachycardia at 102 bpm with T-wave inversion in lateral leads I, aVL, V5 and V6. This is a new finding when compared to EKG completed in 06/03/22 only revealing T-wave inversion in V6. Chest x-ray completed consistent with fluid volume overload with right pleural effusion and right lower lobe infiltrate, consistent with CHF and right lower lobe pneumonia. Labs completed and reviewed. CBC revealing macrocytic anemia with hemoglobin of 10.2, at baseline levels. BMP consistent with ESRD with BUN of 68, creatinine 5.01, and GFR of 10. Liver profile revealing a chronically elevated alkaline phosphatase of 142. Covid PCR was negative. Troponin was elevated at 0.180, which appears to be chronic in nature. An proBNP elevated at 124,000. Patient admitted under our services with consultation to cardiology and nephrology. Patient underwent hemodialysis on 06/22/22 and currently on IV diuresis with Lasix for treatment of CHF and azithromycin and Rocephin for treatment of right lower lobe pneumonia. Nephrology and cardiology remain following. Physical exam: Patient seen and fully evaluated at bedside this morning. He was sitting up in the chair and reports currently having pain to left great and second toe. RN medicating patient at this time. Patient reports shortness of breath is okay at rest but states significantly worsens with any movement. Patient reports becoming extremely short of breath just moving from bed to chair. Morning labs reviewed. Magnesium being replaced his magnesium was 1.7 this morning. Nephrology planning to have patient undergo dialysis again today. Discussed with Dr. Silva, edge bonder as well and patient to remain on Lasix 40 mg twice a day with strict I's and O's. General: non toxic, no distress, appears at stated age Derm: warm, dry Head: atraumatic, normocephalic, symmetric Eyes: EOMI, no lid lag, anicteric sclera Mouth: no lip lesion, mucus membranes moist Cardiovascular: S1S2 reg, systolic murmur, positive diminished posterior tibial pulses bilaterally. AV fistula left upper extremity with bruit and thrill pres ent. Lungs: Respirations even, regular, and unlabored. Lungs diminished with diffuse rhonchi and bibasilar crackles. No wheezes noted. Coarse cough was noted during assessment. Abdominal: soft and distended, nontender to palpation, no guarding, no appreciable organomegaly Ext: no gross muscle atrophy, 1+ pitting bilateral lower extremity edema, no contractures. Left great toe and second toe distal ulcerations/wounds Neuro: CN II-XI grossly intact, no focal neuro deficits Psych: Alert, oriented, appropriate affect Assessment and plan of care: Acute exacerbation of chronic systolic heart failure with previously known EF of 10-20% Right lower lobe consolidation concerning for community-acquired pneumonia Elevated troponin, appears chronic in nature Sinus tachycardia with EKG changes -Cardiology consulted -Telemetry monitoring -ProBNP 124,000 -Daily weights -Close monitoring of I's and O's -Cardiac diet -Lasix -Continuation of cardiac medication regimen with Aspirin, atorvastatin, and isosorbide mononitrate -Antibiotics Rocephin and azithromycin -Continued close monitoring of electrolytes while diuresing. -Recent echocardiogram completed 06/03/22 revealing a severely reduced global left ventricular systolic function with an EF of 20-25% with Left great toe and second toe distal ulcerations/wounds Peripheral Arterial insufficiency Neuropathy, patient reports extreme pain and left great and second toe often at night and reports very severe at times -Wound care consulted -Patient to be referred to vascular surgery upon discharge for outpatient foll ow-up and further testing -Continue Requip 2 mg twice daily and Percocet as needed for pain/discomfort. CODE STATUS: DO NOT RESUSCITATE/DO NOT INTUBATE DVT prophylaxis: Heparin: Discussed with: Patient and RN Anticipated discharge date: Clinical course to determine Anticipated discharge place: Home A total of 36 minutes was spent on the care of this complex patient more than 50% of the time was spent in counseling and care coordination. I reviewed the documentation as provided by the POONAM above, who is the original author of this note. I agree with the documented assessment and plan, with the following changes: none Objective - Vital Signs Vital signs: Vital Signs Temp 97.7 F 06/23/22 03:26 Pulse 100 06/23/22 03:26 Resp 20 06/23/22 03:26 BP 110/70 06/23/22 03:26 Pulse Ox 97 06/23/22 03:26 FiO2 Intake & Output 06/22/22 06/23/22 06/23/22 18:59 06:59 18:59 Intake Total 360 Balance 360 Weight 67.3 kg Intake: Oral 360 Other: Voiding Method Bedside Commode - Labs CBC & Chem 7: 06/25/22 06:39 06/26/22 08:35 Labs: Abnormal Lab Results - Last 24 Hours (Table) 06/22/22 06/22/22 Range/Units 08:54 12:07 Troponin I 0.159 H* 0.174 H* (0.000-0.034) ng/mL
[2022-06-23] MEDS ORDERED: MAGNESIUM OXIDE 400 MG TAB PO STA (11:54)
--- NOTE | 2022-06-23 12:47 | P.CRDCN ---
History of Present Illness Consult date: 06/23/22 History of present illness: The patient is 76-year-old male with a past medical history of ESRD on hemodialysis and systolic CHF with EF 10-20% who presented to the emergency room with complaints of shortness of breath. We've been consulted to see the patient for elevated troponins and congestive heart failure. Troponins were 0.180, 0.159, 0.174. BNP was 124,000. Upon admission creatinine was 5 patient was dialyzed yesterday and creatinine has improved to 3.5. He is on IV antibiotics and IV Lasix. Will restart home meds including Lipitor and Imdur. Patient will continue with Lasix dose by nephrology. Will start Toprol XL 25 mg. Will obtain a 2-D echocardiogram Review of Systems REVIEW OF SYSTEMS At the time of my exam: CONSTITUTIONAL: Denies fever or chills. EYES: Negative for vision changes ENT: Negative for hearing loss CARDIOVASCULAR: Denies chest pain, shortness of breath, diaphoresis, orthopnea, PND or palpitations. VASCULAR: Denies edema RESPIRATORY: Denies cough. Complains of shortness of breath GASTROINTESTINAL: Denies abdominal pain, diarrhea, constipation, nausea or vomiting. MUSCULOSKELETAL: Denies myalgias. NEUROLOGIC: Denies numbness, tingling, headache or weakness. ENDOCRINE: Denies fatigue, weight change, polydipsia or polyurina. GENITOURINARY: Denies burning, hematuria or urgency with micturation. HEMATOLOGIC: Denies history of anemia or bleeding. DERMATOLOGY: Denies rash or skin sores PSYCH: Negative for depression or hallucinations. 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%, history of renal chest and 2 in 1992 from a donor and in 1995 from a living donor, history of neck fracture, history of Covid 19 infection, severe aortic stenosis, anemia of chronic disease History of Any Multi-Drug Resistant Organisms: None Reported Past Surgical History: Appendectomy Additional Past Surgical History / Comment(s): Kidney transplant times 07/28/1992 and 1995 and the patient has a fistula in the left upper extremity Past Anesthesia/Blood Transfusion Reactions: No Reported Reaction Past Psychological History: No Psychological Hx Reported Smoking Status: Former smoker Past Alcohol Use History: Rare Past Drug Use History: None Reported - Past Family History Mother Family Medical History: Cancer Additional Family Medical History / Comment(s): pancreatic cancer Father Family Medical History: CVA/TIA Additional Family Medical History / Comment(s): father of stroke , mother pancreatic cancer Medications and Allergies Home Medications Medication Instructions Recorded Confirmed Type Atorvastatin [Lipitor] 10 mg PO HS 01/29/22 06/22/22 History Cholecalciferol [Vitamin D3 (25 50 mcg PO DAILY 01/29/22 06/22/22 History Mcg = 1000 Iu)] Viola-3/Dha/Epa/Fish Oil [Fish Oil 1 cap PO DAILY 01/29/22 06/22/22 History 1,000 mg Softgel] Isosorbide Mononitrate ER [Imdur] 30 mg PO DAILY 01/30/22 06/22/22 History Aspirin 81 mg PO DAILY 05/01/22 06/22/22 History rOPINIRole HCL [Requip] 2 mg PO BID 05/01/22 06/22/22 History oxyCODONE-APAP 5-325MG [Percocet 1 tab PO TID PRN #9 tab 05/08/22 06/22/22 Rx 5-325 mg] Folic Acid/Vit B Complex and C 0.8 mg PO TUTHSA 06/03/22 06/22/22 History [Emy-Catalino Tablet] Sevelamer Carbonate 800 mg PO TID-W/MEALS 06/03/22 06/22/22 History Magnesium Oxide [Mag-Ox] 400 mg PO DAILY #30 tab 06/05/22 06/22/22 Rx Allergies Allergy/AdvReac Type Severity Reaction Status Date / Time enalaprilat [From Vasotec] Allergy Swelling Verified 06/03/22 11:06 lisinopril Allergy Swelling Verified 06/03/22 11:06 Physical Exam Vitals: Vital Signs Temp Pulse Resp BP Pulse Ox 06/23/22 09:10 100 06/23/22 03:26 97.7 F 100 20 110/70 97 06/23/22 00:07 143/86 06/22/22 23:28 97.4 F L 103 H 16 107/68 100 06/22/22 19:32 97.6 F 86 20 105/69 99 06/22/22 16:00 97.9 F 91 16 103/68 97 06/22/22 14:00 90 18 Intake and Output 06/22/22 06/23/22 06/23/22 22:59 06:59 14:59 Intake Total 120 358 Balance 120 358 Intake: Oral 120 358 Other: Weight 67.3 kg General: The patient is awake and alert, in no distress, and does not appear acutely ill. Skin: Skin is warm and dry and no rashes or lesions are noted. Eye: Pupils are equal, round and reactive to light, extra-ocular movements are intact; there is normal conjunctiva bilaterally. Ears, nose, mouth and throat: There are moist mucous membranes and no oral lesions. Neck: The neck is supple, there is no tenderness or JVD. Cardiovascular: There is regular rate and rhythm. No murmur, rub or gallop is appreciated. Respiratory: Lungs are clear to auscultation, respirations are non-labored, breath sounds are equal. Gastrointestinal: Soft, non-distended, non-tender abdomen without masses or organomegaly noted. There is no rebound or guarding present. Bowel sounds are unremarkable. Back: There is no tenderness to palpation in the midline. There is no obvious deformity. Musculoskeletal: Normal ROM, no tenderness, There is no pedal edema. There is no calf tenderness or swelling. Extremities: Mild bilateral pitting edema Vascular: Femoral pulse is normal. Posterior tibial pulses are normal .Dorsalis pedis is palpable. Neurological: CN II-XII intact. There are no obvious motor or sensory deficits. Speech is normal. Psychiatric: Cooperative, appropriate mood & affect, normal judgment Results 06/23/22 07:44 06/23/22 07:44 Cardiac Enzymes 06/22/22 06/23/22 Range/Units 12:07 07:44 AST 35 (17-59) U/L Troponin I 0.174 H* (0.000-0.034) ng/mL CBC 06/23/22 Range/Units 07:44 WBC 4.2 (3.8-10.6) k/uL RBC 2.86 L (4.30-5.90) m/uL Hgb 9.1 L (13.0-17.5) gm/dL Hct 29.3 L (39.0-53.0) % Plt Count 142 L (150-450) k/uL Comprehensive Metabolic Panel 06/23/22 Range/Units 07:44 Sodium 139 (137-145) mmol/L Potassium 4.5 (3.5-5.1) mmol/L Chloride 99 (98-107) mmol/L Carbon Dioxide 26 (22-30) mmol/L BUN 35 H (9-20) mg/dL Creatinine 3.58 H (0.66-1.25) mg/dL Glucose 135 H (74-99) mg/dL Calcium 7.7 L (8.4-10.2) mg/dL AST 35 (17-59) U/L ALT 21 (4-49) U/L Alkaline Phosphatase 143 H (38-126) U/L Total Protein 7.1 (6.3-8.2) g/dL Albumin 3.6 (3.5-5.0) g/dL Current Medications Generic Name Dose Route Start Last Admin Trade Name Freq PRN Reason Stop Dose Admin Albuterol/Ipratropium 3 ml 06/22/22 04:34 Ipratropium-Albuterol 3 Ml Neb INHALATION RT-TID PRN Shortness Of Breath Or Wheezing Aspirin 81 mg 06/22/22 09:00 06/23/22 08:56 Aspirin 81 Mg PO 81 mg DAILY MONY Administration Atorvastatin Calcium 10 mg 06/22/22 21:00 06/22/22 23:29 Atorvastatin 10 Mg Tab PO 10 mg HS MONY Administration Furosemide 40 mg 06/22/22 09:30 06/23/22 08:56 Furosemide 10 Mg/Ml 4 Ml Vial IV 40 mg Q12HR MONY Administration Heparin Sodium (Porcine) 5,000 unit 06/22/22 08:00 06/23/22 08:56 Heparin Sodium,Porcine/Pf 5,000 Unit/0.5 Ml Syringe SQ 5,000 unit Q8HR MONY Administration Ceftriaxone Sodium 2 gm/ 50 mls @ 100 mls/hr 06/23/22 05:00 06/23/22 05:25 Sodium Chloride IVPB 100 mls/hr Q24H MONY Administration Protocol Azithromycin 500 mg/ Sodium 250 mls @ 250 mls/hr 06/23/22 09:00 06/23/22 08:55 Chloride IVPB 06/25/22 09:59 250 mls/hr DAILY MONY Administration Protocol Isosorbide Mononitrate 30 mg 06/22/22 09:00 06/23/22 08:56 Isosorbide Mononitrate Er 30 Mg Tab.Er.24h PO 30 mg DAILY MONY Administration Morphine Sulfate 4 mg 06/22/22 04:29 06/22/22 14:44 Morphine Sulfate 4 Mg/Ml Syringe IV 4 mg Q4HR PRN Administration Severe Pain (Scale 7 to 10) Naloxone HCl 0.2 mg 06/22/22 04:29 Naloxone 0.4 Mg/Ml 1 Ml Vial IV Q2M PRN Opioid Reversal Ondansetron HCl 4 mg 06/22/22 04:29 06/22/22 18:27 Ondansetron 4 Mg/2 Ml Vial IVP 4 mg Q8HR PRN Administration Nausea And Vomiting Oxycodone/Acetaminophen 1 each 06/22/22 09:29 06/23/22 10:45 Oxycodone-Apap 5-325mg 1 Each Tab PO 1 each TID PRN Administration Pain Ropinirole HCl 2 mg 06/22/22 09:30 06/23/22 08:56 Ropinirole Hcl 1 Mg Tab PO 2 mg BID MONY Administration Sevelamer Carbonate 800 mg 06/22/22 09:29 06/23/22 06:54 Sevelamer 800 Mg Tab PO 800 mg TID-W/MEALS MONY Administration Intake and Output 06/22/22 06/23/22 06/23/22 22:59 06:59 14:59 Intake Total 120 358 Balance 120 358 Intake: Oral 120 358 Other: Weight 67.3 kg 06/23/22 07:44 06/23/22 07:44 Assessment and Plan Assessment: Elevated troponin secondary to chronic kidney disease Acute on chronic systolic congestive heart failure Plan: Continue with Lasix Restart Imdur and Lipitor Start Toprol-XL 25 mg daily Continue with all other current cardiac medications Continue with telemetry monitoring Further recommendations based on clinical course The above impression and plan of care have been discussed and directed by the signing physician. Laura Ernst, nurse practitioner, acting as scribe for signing physician.
[2022-06-23] MEDS: METOPROLOL SUCCINATE (ER) 25 MG TAB.ER.24H PO SCH (15:18)
[2022-06-23] MEDS: ATORVASTATIN 10 MG TAB PO SCH (20:42)
[2022-06-24] MEDS: SEVELAMER 800 MG TAB PO SCH ×3 (08:00→16:58)
[2022-06-24] MEDS: FUROSEMIDE 10 MG/ML 4 ML VIAL IV SCH (08:00)
[2022-06-24] MEDS: ASPIRIN 81 MG PO SCH (08:00)
[2022-06-24] MEDS: oxyCODONE-APAP 5-325MG 1 EACH TAB PO PRN (08:01)
[2022-06-24] MEDS: METOPROLOL SUCCINATE (ER) 25 MG TAB.ER.24H PO SCH (08:01)
[2022-06-24] MEDS: ISOSORBIDE MONONITRATE ER 30 MG TAB.ER.24H PO SCH (08:01)
[2022-06-24] MEDS: HEPARIN SODIUM,PORCINE/PF 5,000 UNIT/0.5 ML SYRINGE SQ SCH ×3 (08:54→22:58)
[2022-06-24] MEDS: AZITHROMYCIN 500 MG in SODIUM CHLORIDE 0.9% 250 ML IVPB SCH (08:54)
--- NOTE | 2022-06-24 10:45 | P.PN ---
Subjective Patient is seen for follow-up for end-stage renal disease. He is maintained on a Friday schedule. He was admitted to the hospital with shortness of breath and chest x-ray showing evidence of volume overload and pulmonary vascular congestion. Patient has had extra treatment for hemodialysis and states he is feeling better. No significant complaints today. Objective - Vital Signs Vital signs: Vital Signs Temp 97.7 F 06/24/22 08:00 Pulse 95 06/24/22 08:00 Resp 19 06/24/22 08:00 BP 133/85 06/24/22 08:00 Pulse Ox 100 06/24/22 08:00 FiO2 Intake & Output 06/23/22 06/24/22 06/24/22 18:59 06:59 18:59 Intake Total 476 240 Balance 476 240 Intake: Oral 476 240 Other: Voiding Method Bedside Commode # Voids 1 # Bowel Movements 2 1 - Exam Awake, comfortable, no acute distress Examination of the heart S1 and S2 Examination lungs bilateral breath sounds are heard Abdomen is soft nontender Examination lower extremities shows trace edema bilaterally - Labs CBC & Chem 7: 06/23/22 07:44 06/23/22 07:44 Assessment and Plan Assessment: 1. ESRD on dialysis Friday with an graft in his left upper arm. 2. Admitted with shortness of breath and congestive heart failure, dialyzed 06/22/2022 2 L taken off or 3 hours was stable. Status post hemodialysis on 06/23/2022 as well but about 2 L of ultrafiltration 3. 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 4. History of failed kidney transplant, 1995. Back on dialysis 5. History of severe aortic stenosis. 6. Anemia hemoglobin is 10.2 at target, came down to 9.1 this morning. 7. Phosphorus 8.9 and calcium is 7.6, albumin 3.9 8. Possible pneumonia currently on ceftriaxone. 9. History of cholecystitis recently 06/03/20 Plan: Repeat hemodialysis in a.m.
--- NOTE | 2022-06-24 11:31 | P.CONS ---
History of Present Illness - Reason for Consult Consult date: 06/24/22 wound care - History of Present Illness This is a 76-year-old patient known to the wound care center with nonhealing ulceration to the second digit of the right foot. Patient's last appointment at the wound care center was May 29. It was recommended that patient undergo possible surgical debridement with possible removal of the phalanx of the second digit. Patient has not returned to the wound care center since that visit. He has been utilizing collagen prior. At this time patient has a eschar to To the medial aspect of the second digit and a To the distal tip of the phalanx. No drainage noted. No granulation noted. Review Of Systems: Constitutional: No fever, no chills, no night sweats. No weight change. No weakness, fatigue or lethargy. No daytime sleepiness. Integumentary:reports wounds, no lesions. No rash or pruritus. No unusual bruising. No change in hair or nails. Physical exam: General Appearance: Alert, cooperative, no distress, appears stated age. Skin: See HPI all other Skin color, texture, tugor normal, no rashes or lesions. Neurologic: Alert oriented x3 Assessment: 1. 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 Peripheral vascular disease 3. End-stage renal failure 4. Acute on chronic combined systolic and diastolic heart failure Plan: 1. Apply honey gel to the ulceration dry gauze rolled gauze and secure with paper tape. Change Friday. Patient returned to the wound care center on FridayJune 28 @ 9:00 Thank you for the consultation any questions to contact the wound care center DNP note has been reviewed and discussed with Dr. Chowdhury and the impression and plan of care has been directed as dictated. 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%, history of renal chest and 2 in 1992 from a donor and in 1995 from a living donor, history of neck fracture, history of Covid 19 infection, severe aortic stenosis, anemia of chronic disease History of Any Multi-Drug Resistant Organisms: None Reported Past Surgical History: Appendectomy Additional Past Surgical History / Comment(s): Kidney transplant times 07/28/1992 and 1995 and the patient has a fistula in the left upper extremity Past Anesthesia/Blood Transfusion Reactions: No Reported Reaction Past Psychological History: No Psychological Hx Reported Smoking Status: Former smoker Past Alcohol Use History: Rare Past Drug Use History: None Reported - Past Family History Mother Family Medical History: Cancer Additional Family Medical History / Comment(s): pancreatic cancer Father Family Medical History: CVA/TIA Additional Family Medical History / Comment(s): father of stroke , mother pancreatic cancer Medications and Allergies Home Medications Medication Instructions Recorded Confirmed Type Atorvastatin [Lipitor] 10 mg PO HS 01/29/22 06/22/22 History Cholecalciferol [Vitamin D3 (25 50 mcg PO DAILY 01/29/22 06/22/22 History Mcg = 1000 Iu)] [place]-3/Dha/Epa/Fish Oil [Fish Oil 1 cap PO DAILY 01/29/22 06/22/22 History 1,000 mg Softgel] Isosorbide Mononitrate ER [Imdur] 30 mg PO DAILY 01/30/22 06/22/22 History Aspirin 81 mg PO DAILY 05/01/22 06/22/22 History rOPINIRole HCL [Requip] 2 mg PO BID 05/01/22 06/22/22 History oxyCODONE-APAP 5-325MG [Percocet 1 tab PO TID PRN #9 tab 05/08/22 06/22/22 Rx 5-325 mg] Folic Acid/Vit B Complex and C 0.8 mg PO TUTHSA 06/03/22 06/22/22 History [Emy-Catalino Tablet] Sevelamer Carbonate 800 mg PO TID-W/MEALS 06/03/22 06/22/22 History Magnesium Oxide [Mag-Ox] 400 mg PO DAILY #30 tab 06/05/22 06/22/22 Rx Allergies Allergy/AdvReac Type Severity Reaction Status Date / Time enalaprilat [From Vasotec] Allergy Swelling Verified 06/03/22 11:06 lisinopril Allergy Swelling Verified 06/03/22 11:06 Physical Exam Vitals: Vital Signs Temp Pulse Resp BP Pulse Ox 06/24/22 08:00 97.7 F 95 19 133/85 100 06/24/22 03:16 97.9 F 103 H 18 114/73 100 06/23/22 23:09 97.6 F 93 16 110/73 100 06/23/22 19:47 97.7 F 82 18 101/58 100 06/23/22 16:00 97.8 F 90 16 128/74 96 06/23/22 14:00 95 18 Intake and Output 06/23/22 06/24/22 06/24/22 22:59 06:59 14:59 Intake Total 240 Balance 240 Intake: Oral 240 Other: Voiding Method Bedside Commode # Bowel Movements 1 Results CBC & Chem 7: 06/23/22 07:44 06/23/22 07:44 Assessment and Plan (1) Non-pressure chronic ulcer of other part of left foot with necrosis of bone Current Visit: Yes Status: Acute Code(s): L97.524 - NON-PRS CHRONIC ULCER OTH PRT LEFT FOOT W NECROSIS OF BONE SNOMED Code(s): 35348829609976305 (2) Peripheral vascular disease, unspecified Current Visit: Yes Status: Acute Code(s): I73.9 - PERIPHERAL VASCULAR DISEASE, UNSPECIFIED SNOMED Code(s): 598943195 (3) End stage renal disease Current Visit: Yes Status: Acute Code(s): N18.6 - END STAGE RENAL DISEASE SNOMED Code(s): 05901478 (4) Acute on chronic combined systolic (congestive) and diastolic (congestive) heart failure Current Visit: Yes Status: Acute Code(s): I50.43 - ACUTE ON CHRONIC COMBINED SYSTOLIC AND DIASTOLIC HRT FAIL SNOMED Code(s): 467416220641084
--- NOTE | 2022-06-24 12:05 | P.PN ---
Subjective Progress Note Date: 06/24/22 Hospital course: The patient is a very pleasant 76-year-old male with a past medical history of ESRD on hemodialysis (Tuesdays//Saturdays last completed dialysis session 06/20/22), peripheral vascular/arterial disease with left great toe and second toe distal ulcers, bilateral lower extremity neuropathy and systolic CHF with previously known EF of 20-25%. Patient presented to the emergency department with a chief complaint of shortness of breath accompanied by cough with greenish/grayish colored sputum production. Patient underwent a full evaluation in the emergency department. EKG completed revealing sinus tachycardia at 102 bpm with T-wave inversion in lateral leads I, aVL, V5 and V6. This is a new finding when compared to EKG completed in 06/03/22 only revealing T-wave inversion in V6. Chest x-ray completed consistent with fluid volume overload with right pleural effusion and right lower lobe infiltrate, consistent with CHF and right lower lobe pneumonia. Labs completed and reviewed. CBC revealing macrocytic anemia with hemoglobin of 10.2, at baseline levels. BMP consistent with ESRD with BUN of 68, creatinine 5.01, and GFR of 10. Liver profile revealing a chronically elevated alkaline phosphatase of 142. Covid PCR was negative. Troponin was elevated at 0.180, which appears to be chronic in nature. An proBNP elevated at 124,000. Patient admitted under our services with consultation to cardiology and nephrology. Patient underwent hemodialysis on 06/22/22 and currently on IV diuresis with Lasix for treatment of CHF and azithromycin and Rocephin for treatment of right lower lobe pneumonia. Nephrology and cardiology remain following. Physical exam: Patient seen and fully evaluated at bedside this morning. He was sitting up in the chair, he currently reports pain to his left first and second toe is controlled at this time with current pain medication regimen. Patient does report his breathing is better and is no longer exhibiting conversational dyspnea but continues to have SOB with exertion. There was no documented urinary output upon review of chart, this was discussed with patient and RN both report pt is reporting urine and it was expressed need for accurate monitoring and documentation of output. Patient did receive an extra course of dialysis yesterday afternoon and plan is for patient to resume scheduled dialysis session tomorrow. Pending further recommendations of cardiology we will continue with IV Lasix 40 mg every 12 hours and isosorbide mononitrate. General: non toxic, no distress, appears at stated age Derm: warm, dry Head: atraumatic, normocephalic, symmetric Eyes: EOMI, no lid lag, anicteric sclera Mouth: no lip lesion, mucus membranes moist Cardiovascular: S1S2 reg, systolic murmur, positive diminished posterior tibial pulses bilaterally. AV fistula left upper extremity with bruit and thrill present. Lungs: Respirations even, regular, and unlabored. Lungs with bibasilar crackles. No wheezes or rhonchi noted. Coarse cough was noted during assessment. Abdominal: soft and distended, nontender to palpation, no guarding, no appreciable organomegaly Ext: no gross muscle atrophy, scant bilateral lower extremity edema, no contractures. Left great toe and second toe distal ulcerations/wounds Neuro: CN II-XI grossly intact, no focal neuro deficits Psych: Alert, oriented, appropriate affect Assessment and plan of care: Acute exacerbation of chronic systolic heart failure with previously known EF of 20-25% Right lower lobe consolidation concerning for community-acquired pneumonia Elevated troponin, appears chronic in nature Sinus tachycardia with EKG changes -Cardiology consulted -Telemetry monitoring -ProBNP 124,000 -Daily weights -Close monitoring of I's and O's -Cardiac diet -Lasix -Continuation of cardiac medication regimen with Aspirin, atorvastatin, and isosorbide mononitrate -Antibiotics Rocephin and azithromycin -Continued close monitoring of electrolytes while diuresing. -Recent echocardiogram completed 06/03/22 revealing a severely reduced global left ventricular systolic function with an EF of 20-25% with Left great toe and second toe distal chronic ulcerations/wounds Peripheral Arterial insufficiency Neuropathy, patient reports extreme pain to left great and second toe often at night and reports very severe at times -Wound care following -Patient to be referred to vascular surgery upon discharge for outpatient follow-up and further management -Continue Requip 2 mg twice daily and Percocet as needed for pain/discomfort. CODE STATUS: DO NOT RESUSCITATE/DO NOT INTUBATE DVT prophylaxis: Heparin: Discussed with: Patient and RN Anticipated discharge date: Clinical course to determine Anticipated discharge place: Home A total of 35 minutes was spent on the care of this complex patient more than 50% of the time was spent in counseling and care coordination. I reviewed the documentation as provided by the POONAM above, who is the original author of this note. I agree with the documented assessment and plan, with the following changes: none Objective - Vital Signs Vital signs: Vital Signs Temp 97.7 F 06/24/22 08:00 Pulse 95 06/24/22 08:00 Resp 19 06/24/22 08:00 BP 133/85 06/24/22 08:00 Pulse Ox 100 06/24/22 08:00 FiO2 Intake & Output 06/23/22 06/24/22 06/24/22 18:59 06:59 18:59 Intake Total 476 240 Balance 476 240 Intake: Oral 476 240 Other: Voiding Method Bedside Commode # Voids 1 # Bowel Movements 2 1 - Labs CBC & Chem 7: 06/25/22 06:39 06/26/22 08:35
[2022-06-24 13:01] LABS: Anisocytosis Slight; HCT 31.5 % (39.0-53.0); HGB 9.4 gm/dL (13.0-17.5); Hypochromasia Moderate; MCH 31.7 pg (25.0-35.0); MCV 105.9 fL (80.0-100.0); Macrocytosis Moderate; Mean Platelet Volume 10.9; Platelet Count 138 k/uL (150-450); RBC 2.98 m/uL (4.30-5.90); RDW 16.2 % (11.5-15.5); WBC 4.2 k/uL (3.8-10.6)
[2022-06-24 13:04] LABS: Albumin 3.8 g/dL (3.5-5.0); Calcium 8.2 mg/dL (8.4-10.2); Magnesium 1.9 mg/dL (1.6-2.3); Total Bilirubin 0.8 mg/dL (0.2-1.3); Total Protein 7.2 g/dL (6.3-8.2)
--- NOTE | 2022-06-24 13:31 | P.PN ---
Subjective Progress Note Date: 06/24/22 History of present illness: The patient is 76-year-old male with a past medical history of ESRD on hemodia lysis and systolic CHF with EF 10-20% who presented to the emergency room with complaints of shortness of breath. We've been consulted to see the patient for elevated troponins and congestive heart failure. Troponins were 0.180, 0.159, 0.174. BNP was 124,000. Upon admission creatinine was 5 patient was dialyzed yesterday and creatinine has improved to 3.5. He is on IV antibiotics and IV Lasix. Will restart home meds including Lipitor and Imdur. Patient will continue with Lasix dose by nephrology. Will start Toprol XL 25 mg. Will obtain a 2-D echocardiogram 06/24 quality assurance monitor has been a sinus rhythm. Patient denies chest pain. He complains of neck pain and foot pain. Heart rate is in the 80s and 90s, blood pressure 110/74, pulse ox 100% on 3 L. Hemoglobin is 9.4, BUN 36 and creatinine 3.9. Physical examination: Gen: This is a 76-year-old male. He is resting comfortably in bed. VS: reviewed HEENT: Head is atraumatic, normocephalic. Pupils equal, round. Sclerae is anicteric. NECK: Supple. No JVD. No lymphadenopathy. No thyromegaly. LUNGS: Crackles bilaterally. No intercostal retractions. HEART: Regular rate and rhythm. No murmur. ABDOMEN: Soft. Bowel sounds are present. No masses. No tenderness. EXTREMITIES: No pedal edema. No calf tenderness. NEUROLOGICAL: Patient is awake, alert and oriented x3. Cranial nerves 2 through 12 are grossly intact. Assessment: Elevated troponin secondary to chronic kidney disease Acute on chronic systolic heart failure Chronic ulcer to the left foot End-stage renal disease on HD Peripheral vascular disease Plan: Continue with Lasix Continue patient on aspirin, Imdur and Lipitor Continue Toprol-XL 25 mg daily Further recommendations to follow based upon clinical course Nurse practitioner note has been reviewed, I agree with documented findings and plan of care. Patient was seen and examined. Objective - Vital Signs Vital signs: Vital Signs Temp 97.7 F 06/24/22 08:00 Pulse 95 06/24/22 08:00 Resp 19 06/24/22 08:00 BP 133/85 01/16/23 08:00 Pulse Ox 100 06/24/22 08:00 FiO2 Intake & Output 06/23/22 06/24/22 06/24/22 18:59 06:59 18:59 Intake Total 476 240 Balance 476 240 Intake: Oral 476 240 Other: Voiding Method Bedside Commode # Voids 1 # Bowel Movements 2 1 - Labs CBC & Chem 7: 06/24/22 12:24 06/24/22 12:24
[2022-06-24] MEDS: ATORVASTATIN 10 MG TAB PO SCH (20:49)
[2022-06-25] MEDS: oxyCODONE-APAP 5-325MG 1 EACH TAB PO PRN (05:33)
[2022-06-25 07:18] LABS: Anisocytosis Slight; HCT 33.1 % (39.0-53.0); MCH 31.2 pg (25.0-35.0); MCHC 30.3 g/dL (31.0-37.0); MCV 103.2 fL (80.0-100.0); Macrocytosis Moderate; Mean Platelet Volume 11.7; Platelet Count 136 k/uL (150-450); RBC 3.21 m/uL (4.30-5.90); WBC 4.1 k/uL (3.8-10.6)
[2022-06-25 07:28] LABS: Albumin 3.7 g/dL (3.5-5.0); Calcium 7.9 mg/dL (8.4-10.2); Magnesium 1.8 mg/dL (1.6-2.3); Potassium 5.7 mmol/L (3.5-5.1); Total Bilirubin 0.8 mg/dL (0.2-1.3); Total Protein 7.3 g/dL (6.3-8.2)
[2022-06-25] MEDS ORDERED: diphenhydrAMINE 50 MG/ML 1 ML VIAL IVP STA (10:28)
[2022-06-25] MEDS: HEPARIN SODIUM,PORCINE/PF 5,000 UNIT/0.5 ML SYRINGE SQ SCH ×3 (10:36→23:55)
--- NOTE | 2022-06-25 12:12 | P.PN ---
Subjective Progress Note Date: 06/25/22 History of present illness: The patient is 76-year-old male with a past medical history of ESRD on hemodia lysis and systolic CHF with EF 10-20% who presented to the emergency room with complaints of shortness of breath. We've been consulted to see the patient for elevated troponins and congestive heart failure. Troponins were 0.180, 0.159, 0.174. BNP was 124,000. Upon admission creatinine was 5 patient was dialyzed yesterday and creatinine has improved to 3.5. He is on IV antibiotics and IV Lasix. Will restart home meds including Lipitor and Imdur. Patient will continue with Lasix dose by nephrology. Will start Toprol XL 25 mg. Will obtain a 2-D echocardiogram 06/24 conveyor monitor has been a sinus rhythm. Patient denies chest pain. He complains of neck pain and foot pain. Heart rate is in the 80s and 90s, blood pressure 110/74, pulse ox 100% on 3 L. Hemoglobin is 9.4, BUN 36 and creatinine 3.9. 06/25 Patient denies any new concerns. No chest pain. Shortness of breath is contro lled. Heart rate is in the 70s and low 80s, blood pressure 114/79, pulse ox 99% on 3 L nasal cannula. Repeat blood work reveals potassium of 5.7, BUN 44 creatinine 5.2. Patient is having dialysis today. Physical examination: Gen: This is a 76-year-old male. He is resting comfortably in bed. VS: reviewed HEENT: Head is atraumatic, normocephalic. Pupils equal, round. Sclerae is anic teric. NECK: Supple. No JVD. No lymphadenopathy. No thyromegaly. LUNGS: Crackles bilaterally. No intercostal retractions. HEART: Regular rate and rhythm. No murmur. ABDOMEN: Soft. Bowel sounds are present. No masses. No tenderness. EXTREMITIES: No pedal edema. No calf tenderness. NEUROLOGICAL: Patient is awake, alert and oriented x3. Cranial nerves 2 through 12 are grossly intact. Assessment: Elevated troponin secondary to chronic kidney disease Acute on chronic systolic heart failure Chronic ulcer to the left foot End-stage renal disease on HD Peripheral vascular disease Plan: Continue patient on aspirin, Imdur and Lipitor Continue Toprol-XL 25 mg daily Cardiology will sign off this case in follow-up on an as-needed basis. Please reconsult if any new concerns. Nurse practitioner note has been reviewed, I agree with documented findings and plan of care. Patient was seen and examined. Objective - Vital Signs Vital signs: Vital Signs Temp 97.7 F 06/25/22 08:00 Pulse 79 06/25/22 08:00 Resp 19 06/25/22 08:00 BP 114/79 06/25/22 08:00 Pulse Ox 99 06/25/22 08:00 FiO2 Intake & Output 06/24/22 06/25/22 06/25/22 18:59 06:59 18:59 Intake Total 480 180 Output Total 150 Balance 330 180 Weight 65.4 kg Intake: Oral 480 180 Output: Urine 150 Other: Voiding Method Bedside Commode Bedside Commode # Bowel Movements 1 - Labs CBC & Chem 7: 06/25/22 06:39 06/25/22 06:39 Labs: Abnormal Lab Results - Last 24 Hours (Table) 06/24/22 06/24/22 06/25/22 Range/Units 12:24 12:24 06:39 RBC 2.98 L 3.21 L (4.30-5.90) m/uL Hgb 9.4 L 10.0 L (13.0-17.5) gm/dL Hct 31.5 L 33.1 L (39.0-53.0) % MCV 105.9 H 103.2 H (80.0-100.0) fL MCHC 30.0 L 30.3 L (31.0-37.0) g/dL RDW 16.2 H 16.0 H (11.5-15.5) % Plt Count 138 L 136 L (150-450) k/uL Potassium (3.5-5.1) mmol/L Carbon Dioxide (22-30) mmol/L BUN 36 H (9-20) mg/dL Creatinine 3.99 H (0.66-1.25) mg/dL Glucose 135 H (74-99) mg/dL Calcium 8.2 L (8.4-10.2) mg/dL Alkaline Phosphatase 157 H (38-126) U/L 06/25/22 Range/Units 06:39 RBC (4.30-5.90) m/uL Hgb (13.0-17.5) gm/dL Hct (39.0-53.0) % MCV (80.0-100.0) fL MCHC (31.0-37.0) g/dL RDW (11.5-15.5) % Plt Count (150-450) k/uL Potassium 5.7 H (3.5-5.1) mmol/L Carbon Dioxide 21 L (22-30) mmol/L BUN 44 H (9-20) mg/dL Creatinine 5.20 H (0.66-1.25) mg/dL Glucose (74-99) mg/dL Calcium 7.9 L (8.4-10.2) mg/dL Alkaline Phosphatase 164 H (38-126) U/L
--- NOTE | 2022-06-25 12:23 | P.PN ---
Subjective Progress Note Date: 06/25/22 Principal diagnosis: dyspnea Hospital Course: 76-year-old male with a past medical history of ESRD on hemodialysis TTS, peripheral vascular/arterial disease with left great toe and second toe distal ulcers, bilateral lower extremity neuropathy and systolic CHF with previously known EF of 20-25%. Patient presented to the emergency department with a chief complaint of shortness of breath accompanied by cough with greenish/grayish colored sputum production. Patient underwent a full evaluation in the emergency department. EKG completed revealing sinus tachycardia at 102 bpm with T-wave inversion in lateral leads I, aVL, V5 and V6. This is a new finding when compared to EKG completed in 06/03/22 only revealing T-wave inversion in V6. Chest x-ray completed consistent with fluid volume overload with right pleural effusion and right lower lobe infiltrate, consistent with CHF and right lower lobe pneumonia. Labs completed and reviewed. CBC revealing macrocytic anemia with hemoglobin of 10.2, at baseline levels. BMP consistent with ESRD with BUN of 68, creatinine 5.01, and GFR of 10. Liver profile revealing a chronically elevated alkaline phosphatase of 142. Covid PCR was negative. Troponin was elevated at 0.180, which appears to be chronic in nature. An proBNP elevated at 124,000. Patient no longer IV diuretics due to poor urine output, getting frequent hemodialysis for volume overload. Nephrology following. Cardiology also following. Subjective: Patient seen and examined at bedside. No acute events overnight. He claims that his shortness of breath is still persistent. He currently uses 2 L of oxygen at home. He denies any chest pain, abdominal pain, nausea, vomiting, diarrhea, constipation, or urinary complaints. Pertinent positives and negatives as discussed above, a complete review of systems was performed and all other systems are negative. Vitals Signs Reviewed. General: nontoxic, no distress, appears at stated age Derm: warm, dry Head: atraumatic, normocephalic, symmetric Eyes: EOMI, no lid lag, anicteric sclera Mouth: no lip lesion, mucus membranes moist Cardiovascular: S1S2 reg, no murmur, left upper extremity AV fistula with thrill and bruit present Lungs: Bibasilar rales , no accessory muscle use Abdominal: soft, nontender to palpation, no guarding, no appreciable organomegaly Ext: no gross muscle atrophy, no edema, no contractures, left great toe and second toe distal ulcerations/wounds Neuro: CN II-XI grossly intact, no focal neuro deficits Psych: Alert, oriented, appropriate affect Assessment and Plan: Acute on chronic systolic heart failure Elevated troponin, chronic Sinus tachycardia -IV Lasix discontinued due to poor urine output -Dialysis -Nephrology and cardiology following -Continue aspirin, statin, nitrates -Telemetry, daily weights, I's and O's Community-acquired pneumonia Acute on chronic hypoxic respiratory failure -Right lower lobe consolidation seen on chest x-ray -IV antibiotics -Currently on home 2 L oxygen Hyperkalemia -Dialysis today Left great toe, second toe chronic ulceration Peripheral arterial disease Peripheral neuropathy -Wound care -Outpatient vascular surgery follow-up DVT ppx: Subcu heparin Code status: DNR/DNI Anticipated discharge place: Home versus rehab, PT/OT consult Anticipated discharge time: 1-2 days Objective - Vital Signs Vital signs: Vital Signs Temp 97.7 F 06/25/22 08:00 Pulse 79 06/25/22 08:00 Resp 19 06/25/22 08:00 BP 114/79 06/25/22 08:00 Pulse Ox 99 06/25/22 08:00 FiO2 Intake & Output 06/24/22 06/25/22 06/25/22 18:59 06:59 18:59 Intake Total 480 180 Output Total 150 Balance 330 180 Weight 65.4 kg Intake: Oral 480 180 Output: Urine 150 Other: Voiding Method Bedside Commode Bedside Commode Bedside Commode # Bowel Movements 1 - Labs CBC & Chem 7: 06/25/22 06:39 06/25/22 06:39 Labs: Abnormal Lab Results - Last 24 Hours (Table) 06/24/22 06/24/22 06/25/22 Range/Units 12:24 12:24 06:39 RBC 2.98 L 3.21 L (4.30-5.90) m/uL Hgb 9.4 L 10.0 L (13.0-17.5) gm/dL Hct 31.5 L 33.1 L (39.0-53.0) % MCV 105.9 H 103.2 H (80.0-100.0) fL MCHC 30.0 L 30.3 L (31.0-37.0) g/dL RDW 16.2 H 16.0 H (11.5-15.5) % Plt Count 138 L 136 L (150-450) k/uL Potassium (3.5-5.1) mmol/L Carbon Dioxide (22-30) mmol/L BUN 36 H (9-20) mg/dL Creatinine 3.99 H (0.66-1.25) mg/dL Glucose 135 H (74-99) mg/dL Calcium 8.2 L (8.4-10.2) mg/dL Alkaline Phosphatase 157 H (38-126) U/L 06/25/22 Range/Units 06:39 RBC (4.30-5.90) m/uL Hgb (13.0-17.5) gm/dL Hct (39.0-53.0) % MCV (80.0-100.0) fL MCHC (31.0-37.0) g/dL RDW (11.5-15.5) % Plt Count (150-450) k/uL Potassium 5.7 H (3.5-5.1) mmol/L Carbon Dioxide 21 L (22-30) mmol/L BUN 44 H (9-20) mg/dL Creatinine 5.20 H (0.66-1.25) mg/dL Glucose (74-99) mg/dL Calcium 7.9 L (8.4-10.2) mg/dL Alkaline Phosphatase 164 H (38-126) U/L
--- NOTE | 2022-06-25 12:29 | P.PN ---
Subjective Patient is seen for follow-up for end-stage renal disease. He is maintained on a Friday schedule. He was admitted to the hospital with shortness of breath and chest x-ray showing evidence of volume overload and pulmonary vascular congestion. Patient has had extra treatment for hemodialysis and states he is feeling better. Patient is seen on hemodialysis. Tolerating his treatment well. Complaining of itching Objective - Vital Signs Vital signs: Vital Signs Temp 97.7 F 06/25/22 08:00 Pulse 79 06/25/22 08:00 Resp 19 06/25/22 08:00 BP 114/79 06/25/22 08:00 Pulse Ox 99 06/25/22 08:00 FiO2 Intake & Output 06/24/22 06/25/22 06/25/22 18:59 06:59 18:59 Intake Total 480 180 Output Total 150 Balance 330 180 Weight 65.4 kg Intake: Oral 480 180 Output: Urine 150 Other: Voiding Method Bedside Commode Bedside Commode Bedside Commode # Bowel Movements 1 - Exam Awake, comfortable, no acute distress Examination of the heart S1 and S2 Examination lungs bilateral breath sounds are heard Abdomen is soft nontender Examination lower extremities shows trace edema bilaterally - Labs CBC & Chem 7: 06/25/22 06:39 06/25/22 06:39 Labs: Abnormal Lab Results - Last 24 Hours (Table) 06/24/22 06/24/22 06/25/22 Range/Units 12:24 12:24 06:39 RBC 2.98 L 3.21 L (4.30-5.90) m/uL Hgb 9.4 L 10.0 L (13.0-17.5) gm/dL Hct 31.5 L 33.1 L (39.0-53.0) % MCV 105.9 H 103.2 H (80.0-100.0) fL MCHC 30.0 L 30.3 L (31.0-37.0) g/dL RDW 16.2 H 16.0 H (11.5-15.5) % Plt Count 138 L 136 L (150-450) k/uL Potassium (3.5-5.1) mmol/L Carbon Dioxide (22-30) mmol/L BUN 36 H (9-20) mg/dL Creatinine 3.99 H (0.66-1.25) mg/dL Glucose 135 H (74-99) mg/dL Calcium 8.2 L (8.4-10.2) mg/dL Alkaline Phosphatase 157 H (38-126) U/L 06/25/22 Range/Units 06:39 RBC (4.30-5.90) m/uL Hgb (13.0-17.5) gm/dL Hct (39.0-53.0) % MCV (80.0-100.0) fL MCHC (31.0-37.0) g/dL RDW (11.5-15.5) % Plt Count (150-450) k/uL Potassium 5.7 H (3.5-5.1) mmol/L Carbon Dioxide 21 L (22-30) mmol/L BUN 44 H (9-20) mg/dL Creatinine 5.20 H (0.66-1.25) mg/dL Glucose (74-99) mg/dL Calcium 7.9 L (8.4-10.2) mg/dL Alkaline Phosphatase 164 H (38-126) U/L Assessment and Plan Assessment: 1. ESRD on dialysis Friday with an graft in his left upper arm. 2. Admitted with shortness of breath and congestive heart failure, dialyzed 06/22/2022 2 L taken off or 3 hours was stable. Status post hemodialysis on 06/23/2022 as well but about 2 L of ultrafiltration 3. 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 4. History of failed kidney transplant, 1995. Back on dialysis 5. History of severe aortic stenosis. 6. Anemia hemoglobin is 10.2 at target, came down to 9.1 this morning. 7. Phosphorus 8.9 and calcium is 7.6, albumin 3.9 8. Possible pneumonia currently on ceftriaxone. 9. History of cholecystitis recently 06/03/20 Plan: Increase UF as tolerated IV Benadryl 1 with hemodialysis to help with the pruritus.
[2022-06-25] MEDS: SEVELAMER 800 MG TAB PO SCH ×3 (13:47→17:43)
[2022-06-25] MEDS: METOPROLOL SUCCINATE (ER) 25 MG TAB.ER.24H PO SCH (17:43)
[2022-06-25] MEDS: AZITHROMYCIN 500 MG in SODIUM CHLORIDE 0.9% 250 ML IVPB SCH (17:43)
[2022-06-25] MEDS: ASPIRIN 81 MG PO SCH (17:43)
[2022-06-25] MEDS: ISOSORBIDE MONONITRATE ER 30 MG TAB.ER.24H PO SCH (17:43)
[2022-06-25] MEDS: ATORVASTATIN 10 MG TAB PO SCH (20:10)
[2022-06-26] MEDS: oxyCODONE-APAP 5-325MG 1 EACH TAB PO PRN ×2 (03:53→10:09)
[2022-06-26 09:38] LABS: Calcium 8.3 mg/dL (8.4-10.2); Potassium 5.4 mmol/L (3.5-5.1)
[2022-06-26] MEDS: SEVELAMER 800 MG TAB PO SCH ×2 (10:05→13:41)
[2022-06-26] MEDS: ISOSORBIDE MONONITRATE ER 30 MG TAB.ER.24H PO SCH (10:09)
[2022-06-26] MEDS: ASPIRIN 81 MG PO SCH (10:09)
[2022-06-26] MEDS: HEPARIN SODIUM,PORCINE/PF 5,000 UNIT/0.5 ML SYRINGE SQ SCH ×2 (10:09→15:11)
[2022-06-26] MEDS: METOPROLOL SUCCINATE (ER) 25 MG TAB.ER.24H PO SCH (10:09)
--- NOTE | 2022-06-26 11:10 | P.PN ---
Subjective Patient is seen for follow-up for end-stage renal disease. He is maintained on a Friday schedule. He was admitted to the hospital with shortness of breath and chest x-ray showing evidence of volume overload and pulmonary vascular congestion. Patient has had extra treatment for hemodialysis and states he is feeling better. Tolerated hemodialysis well yesterday with UF of 2.6 L. Plans for discharge today. Objective - Vital Signs Vital signs: Vital Signs Temp 97.9 F 06/26/22 07:50 Pulse 76 06/26/22 07:53 Resp 16 06/26/22 09:40 BP 130/83 06/26/22 07:50 Pulse Ox 99 06/26/22 08:34 FiO2 Intake & Output 06/25/22 06/26/22 06/26/22 18:59 06:59 18:59 Intake Total 480 180 Output Total 2600 Balance -2119 180 Weight 99 kg Intake: Oral 180 180 Hemodialysis 300 Output: Hemodialysis 2600 Other: Voiding Method Bedside Commode Bedside Commode Bedside Commode # Voids 1 - Exam Awake, comfortable, no acute distress No edema noted [employer] exam grossly intact - Labs CBC & Chem 7: 06/25/22 06:39 06/26/22 08:35 Labs: Abnormal Lab Results - Last 24 Hours (Table) 06/26/22 Range/Units 08:35 Potassium 5.4 H (3.5-5.1) mmol/L BUN 34 H (9-20) mg/dL Creatinine 4.06 H (0.66-1.25) mg/dL Calcium 8.3 L (8.4-10.2) mg/dL Assessment and Plan Assessment: 1. ESRD on dialysis Friday with an graft in his left upper arm. 2. Admitted with shortness of breath and congestive heart failure, dialyzed 06/22/2022 2 L taken off or 3 hours was stable. Status post hemodialysis on 06/23/2022 as well but about 2 L of ultrafiltration 3. 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 4. History of failed kidney transplant, 1995. Back on dialysis 5. History of severe aortic stenosis. 6. Anemia hemoglobin is 10.2 at target, came down to 9.1 this morning. 7. Phosphorus 8.9 and calcium is 7.6, albumin 3.9 8. Possible pneumonia currently on ceftriaxone. 9. History of cholecystitis recently 06/03/20 Plan: Hemodialysis in a.m. This can be done as outpatient if patient is discharged today. He is cleared for discharge from nephrology standpoint.
--- NOTE | 2022-06-26 11:31 | P.DS ---
Providers Date of admission: 06/22/22 04:29 Expected date of discharge: 06/26/22 Attending physician: Zoë Keane MD Consults: 06/22/22 04:29 Consult Physician Routine Consulting Provider: Gloria Rios Consult Reason/Comments: HD Do you want consulting provider notified?: Yes 06/22/22 09:34 Consult Physician Routine Consulting Provider: Mj Phillips Consult Reason/Comments: CHF exacerbation Do you want consulting provider notified?: Yes Primary care physician: Fransisco Pereira Hospital Course: Discharge Diagnosis: Acute on chronic systolic heart failure Elevated troponin Sinus tachycardia Community-acquired pneumonia Acute on chronic hypoxic respiratory failure Hyperkalemia Left great toe, second toe chronic ulceration Peripheral arterial disease Peripheral neuropathy Hospital Course: 76-year-old male with a past medical history of ESRD on hemodialysis TTS, peripheral vascular/arterial disease with left great toe and second toe distal ulcers, bilateral lower extremity neuropathy and systolic CHF with previously known EF of 20-25%. Patient presented to the emergency department with a chief complaint of shortness of breath accompanied by cough with greenish/grayish colored sputum production. EKG completed revealing sinus tachycardia at 102 bpm with T-wave inversion in lateral leads I, aVL, V5 and V6. This is a new finding when compared to EKG completed in 06/03/22 only revealing T-wave inversion in V6. Chest x-ray consistent with fluid volume overload with right pleural effusion and right lower lobe infiltrate, consistent with CHF and right lower lobe pneumonia. CBC revealing macrocytic anemia with hemoglobin of 10.2, at baseline levels. BMP consistent with ESRD with BUN of 68, creatinine 5.01, and GFR of 10. Liver profile revealing a chronically elevated alkaline phosphatase of 142. Covid PCR was negative. Troponin was elevated at 0.180, which appears to be chronic in nature. An proBNP elevated at 124,000. Nephrology and ca rdiology consulted. Patient was initially on IV diuretics, but discontinued due to poor urine output. Patient received hemodialysis during this hospitalization with improvement in respiratory status. Patient also given IV antibiotics, will be discharged on oral antibiotics to complete the course of community-acquired pneumonia. Cardiology also started metoprolol. Patient seen by wound care for left toe chronic ulcerations, will be following up in the wound clinic. He should also follow up with vascular surgery as an outpatient for further evaluation. Patient seen and examined at bedside.[] Vital signs reviewed and stable. General: nontoxic, no distress, appears at stated age Derm: warm, dry Head: atraumatic, normocephalic, symmetric Eyes: EOMI, no lid lag, anicteric sclera Mouth: no lip lesion, mucus membranes moist Cardiovascular: S1S2 reg, no murmur, left upper extremity AV fistula with thrill and bruit present Lungs: Bibasilar rales , no accessory muscle use Abdominal: soft, nontender to palpation, no guarding, no appreciable organomegaly Ext: no gross muscle atrophy, no edema, no contractures, left great toe and second toe distal ulcerations/wounds Neuro: CN II-XI grossly intact, no focal neuro deficits Psych: Alert, oriented, appropriate affect A total of 36 minutes of time were spent preparing this complex discharge summary. Patient was discharged on 06/26/22 at 11:20. Patient Condition at Discharge: Stable Plan - Discharge Summary Discharge Rx Participant: No New Discharge Prescriptions: New Cefdinir 300 mg PO Q12HR #2 cap Metoprolol Succinate (ER) [Toprol XL] 25 mg PO DAILY #30 tab Continue Atorvastatin [Lipitor] 10 mg PO HS Cholecalciferol [Vitamin D3 (25 Mcg = 1000 Iu)] 50 mcg PO DAILY Aspirin 81 mg PO DAILY Folic Acid/Vit B Complex and C [Emy-Catalino Tablet] 0.8 mg PO TUTHSA Sevelamer Carbonate 800 mg PO TID-W/MEALS Magnesium Oxide [Mag-Ox] 400 mg PO DAILY #30 tab Addis-3/Dha/Epa/Fish Oil [Fish Oil 1,000 mg Softgel] 1 cap PO DAILY Isosorbide Mononitrate ER [Imdur] 30 mg PO DAILY rOPINIRole HCL [Requip] 2 mg PO BID oxyCODONE-APAP 5-325MG [Percocet 5-325 mg] 1 tab PO TID PRN #9 tab PRN Reason: Pain Discharge Medication List Atorvastatin [Lipitor] 10 mg PO HS 01/29/22 [History] Cholecalciferol [Vitamin D3 (25 Mcg = 1000 Iu)] 50 mcg PO DAILY 01/29/22 [History] Addis-3/Dha/Epa/Fish Oil [Fish Oil 1,000 mg Softgel] 1 cap PO DAILY 01/29/22 [History] Isosorbide Mononitrate ER [Imdur] 30 mg PO DAILY 01/30/22 [History] Aspirin 81 mg PO DAILY 05/01/22 [History] rOPINIRole HCL [Requip] 2 mg PO BID 05/01/22 [History] oxyCODONE-APAP 5-325MG [Percocet 5-325 mg] 1 tab PO TID PRN #9 tab 05/08/22 [Rx] Folic Acid/Vit B Complex and C [Emy-Catalino Tablet] 0.8 mg PO TUTHSA 06/03/22 [History] Sevelamer Carbonate 800 mg PO TID-W/MEALS 06/03/22 [History] Magnesium Oxide [Mag-Ox] 400 mg PO DAILY #30 tab 06/05/22 [Rx] Cefdinir 300 mg PO Q12HR #2 cap 06/26/22 [Rx] Metoprolol Succinate (ER) [Toprol XL] 25 mg PO DAILY #30 tab 06/26/22 [Rx] Follow up Appointment(s)/Referral(s): Fransisco Pereira MD [Primary Care Provider] - 1-2 days [facility] [NON-STAFF] - 06/28/22 9:00 am Patient Instructions/Handouts: Pulmonary Edema (GEN) Activity/Diet/Wound Care/Special Instructions: Please follow up with wound care clinic. He may need to see vascular surgeon for ulcerations on your left toes. Please see your PCP and oncology coordinator as soon as possible. Activity: As tolerated. Take breaks as needed. Diet: Heart healthy and carb consistent diet. Avoid salts, or foods with hidden salts such as canned or boxed foods and frozen dinners. Extra salt makes your heart work harder and traps the fluid in your body for longer. Special Instructions: Weigh yourself every morning after you urinate. If you gain 3 pounds overnight or more than 5 pounds in one week, call your primary physician and substance abuse prevention coordinator for guidance on your medications or they may want to see you in their office. Keep a daily log of your weights and be sure to bring with you at follow up visits with your PCP and substance abuse prevention coordinator. Take all of your medications as directed, especially your water pills. NEVER skip a dose. And remember to keep all of your doctor's appointments and follow- up as needed. Elevate your legs when you are not up moving around to help with circulation and prevent swelling. Compression stockings are also a great way to improve lower extremity circulation and prevent/improve lower extremity edema. Call your primary care provider and substance abuse prevention coordinator if you notice any extra swelling in your legs, ankles, feet or abdomen, if you have a new dry cough, if your shortness of breath worsens with activity or at rest, or if you feel more fatigued. Again, I truly like to thank you for your service! It is always an honor and to be able to provide care for a !!!! Thank you for allowing us to participate in your care, it was truly a pleasure having you for our patient!!! Discharge Disposition: HOME SELF-CARE
[2022-06-26 15:08] VITALS: BP 104/55; PULSE 69; RESP 17; TEMP 97.9
== END 2022-06-26 16:01 | disposition home or self-care (01) | DRG 193 ==
LOC: EC 03:13 → UNDOADMIN 04:29 → 4SSUR 04:29 → 3SCARD 04:29
PROVIDERS: ADMIT Internal Medicine; ATTEND Internal Medicine
PROC: 5A1D70Z Performance of Urinary Filtration, Intermittent, Less than 6 Hours Per Day (ICD-10-PCS; principal; 2022-06-22)
DX: J18.9 Pneumonia, unspecified organism (principal); I50.43 Acute on chronic combined systolic (congestive) and diastolic (congestive) heart failure; J96.21 Acute and chronic respiratory failure with hypoxia; N18.6 End stage renal disease; I42.9 Cardiomyopathy, unspecified; T86.10 Unspecified complication of kidney transplant; Z66 Do not resuscitate; L97.519 Non-pressure chronic ulcer of other part of right foot with unspecified severity; D63.8 Anemia in other chronic diseases classified elsewhere; L97.524 Non-pressure chronic ulcer of other part of left foot with necrosis of bone; I73.9 Peripheral vascular disease, unspecified; D53.9 Nutritional anemia, unspecified; Z99.2 Dependence on renal dialysis; I35.0 Nonrheumatic aortic (valve) stenosis; L29.9 Pruritus, unspecified; G62.9 Polyneuropathy, unspecified; R74.8 Abnormal levels of other serum enzymes; R00.0 Tachycardia, unspecified; Z20.822 Contact with and (suspected) exposure to COVID-19; E87.5 Hyperkalemia; Z28.310 Unvaccinated for COVID-19; Z86.73 Personal history of transient ischemic attack (TIA), and cerebral infarction without residual deficits; Z86.16 Personal history of COVID-19; Z87.891 Personal history of nicotine dependence; Z79.899 Other long term (current) drug therapy; Z79.82 Long term (current) use of aspirin; Z88.8 Allergy status to other drugs, medicaments and biological substances
CPT/HCPCS: 36415; 71045; 80048; 80053; 83735; 83880; 84100; 84484; 85025; 85027; 85610; 85730; 87635; 90935; 93005; 94760; 96365; 96375; 99285

== ENCOUNTER 2022-07-06 09:46 | Observation (INO) | payer MEDICARE, OTHER ==
[2022-07-06 09:53] VITALS: TEMP 98.5
[2022-07-06 10:21] LABS: Anisocytosis Slight; Basophils % (A) 1 %; Eosinophils # (A) 0.1 k/uL (0-0.7); Eosinophils % (A) 2 %; HCT 32.8 % (39.0-53.0); HGB 10.6 gm/dL (13.0-17.5); Lymphocytes # (A) 0.6 k/uL (1.0-4.8); Lymphocytes % (A) 12 %; MCH 32.1 pg (25.0-35.0); MCHC 32.2 g/dL (31.0-37.0); MCV 99.7 fL (80.0-100.0); Macrocytosis Slight; Mean Platelet Volume 11.3; Monocytes # (A) 0.7 k/uL (0-1.0); Monocytes % (A) 13 %; Neutrophils # (A) 3.7 k/uL (1.3-7.7); Neutrophils % (A) 69 %; RDW 17.5 % (11.5-15.5); WBC 5.3 k/uL (3.8-10.6)
[2022-07-06 10:22] LABS: Platelet Count 95 k/uL (150-450)
[2022-07-06 10:29] LABS: Albumin 3.7 g/dL (3.5-5.0); Calcium 7.9 mg/dL (8.4-10.2); Magnesium 1.8 mg/dL (1.6-2.3); Potassium 4.1 mmol/L (3.5-5.1); Total Bilirubin 1.2 mg/dL (0.2-1.3); Total Protein 7.4 g/dL (6.3-8.2)
[2022-07-06 10:35] LABS: INR 1.3 (<1.2); Partial Thromboplastin Time 30.9 sec (22.0-30.0)
--- NOTE | 2022-07-06 10:40 | XR ---
EXAMINATION TYPE: XR chest 2V DATE OF EXAM: 07/06/2022 10:24 AM COMPARISON: Chest radiographs from 06/22/2022 TECHNIQUE: XR chest 2V Frontal and lateral views of the chest. CLINICAL INDICATION:Male, 76 years old with history of difficulty breathing; FINDINGS: Lungs/Pleura: No evidence of focal consolidation or pneumothorax. Blunting of the costophrenic angles is present. Pulmonary vascularity: Pulmonary vascular congestion. Heart/mediastinum: Cardiomediastinal silhouette is enlarged and stable. Musculoskeletal: No acute osseous pathology. IMPRESSION: Cardiomegaly, pulmonary vascular congestion and bilateral pleural effusions. Correlate with BNP for c ongestive heart failure.
[2022-07-06 11:08] VITALS: RESP 20
[2022-07-06] MEDS ORDERED: NALOXONE 0.4 MG/ML 1 ML VIAL IV PRN (12:01)
--- NOTE | 2022-07-06 12:04 | ED ---
General Adult HPI - General Chief complaint: Shortness of Breath Stated complaint: SOB Time Seen by Provider: 07/06/22 10:07 Source: patient, EMS, RN notes reviewed, old records reviewed Mode of arrival: EMS - History of Present Illness Initial comments: Patient is a 76-year-old male that was sent here from dialysis of a concern for dyspnea. Patient has a history of ESRD on hemodialysis Friday, , Friday, heart failure, who presents complaining of dyspnea. He has had worsening exertional dyspnea over the last few weeks as well as some waking. There is concern for volume overload. Patient states he is normally on 3 L nasal cannula at home and he currently is on them and saturating well. States he get worsening shortness of breath with exertion. His no some mild lower extremity swelling as well. Endorses some mild worsening shortness of breath when laying down flat. He denies any chest pain. Denies any abdominal pain, nausea, vomiting. States he became short of breath at the facility. Dialysis was concerned that he needs to be evaluated and stopped his run early after 2 L were removed. They sent him immediately to the emergency department. Patient is currently resting comfortably. States he feels like he has to last few weeks. Has noticed some increased fluid. Is uncertain why they just did not finish his run of dialysis. Presents for further evaluation at this time. Denies any fevers, cough. - Related Data Home Medications Medication Instructions Recorded Confirmed Atorvastatin [Lipitor] 10 mg PO HS 01/29/22 07/06/22 Cholecalciferol [Vitamin D3 (25 50 mcg PO DAILY 01/29/22 07/06/22 Mcg = 1000 Iu)] [place]-3/Dha/Epa/Fish Oil [Fish Oil 1 cap PO DAILY 01/29/22 07/06/22 1,000 mg Softgel] Isosorbide Mononitrate ER [Imdur] 30 mg PO DAILY 01/30/22 07/06/22 Aspirin 81 mg PO DAILY 05/01/22 07/06/22 rOPINIRole HCL [Requip] 2 mg PO BID 05/01/22 07/06/22 Folic Acid/Vit B Complex and C 0.8 mg PO TUTHSA 06/03/22 07/06/22 [Emy-Catalino Tablet] Sevelamer Carbonate 800 mg PO TID-W/MEALS 06/03/22 07/06/22 Amoxic-Pot Clav 875-125Mg 1 tab PO BID 07/06/22 07/06/22 [Augmentin 875-125] Colchicine 0.6 mg PO BID 07/06/22 07/06/22 Previous Rx's Medication Instructions Recorded oxyCODONE-APAP 5-325MG [Percocet 1 tab PO TID PRN #9 tab 05/08/22 5-325 mg] Magnesium Oxide [Mag-Ox] 400 mg PO DAILY #30 tab 06/05/22 Metoprolol Succinate (ER) [Toprol 25 mg PO DAILY #30 tab 06/26/22 XL] Allergies Allergy/AdvReac Type Severity Reaction Status Date / Time enalaprilat [From Vasotec] Allergy Swelling Verified 07/06/22 12:04 lisinopril Allergy Swelling Verified 07/06/22 12:04 Review of Systems ROS Statement: Those systems with pertinent positive or pertinent negative responses have been documented in the HPI. Review of Systems: CONST: Denies fever EYES: Denies blurry vision ENT: Denies nasal congestion C/V: Denies Chest pain RESP: Endorses worsening exertional shortness of breath. GI: Denies abdominal pain : Denies dysuria SKIN: Denies rash. MSK: Denies joint pain. NEURO: Denies headache ROS Other: All systems not noted in ROS Statement are negative. 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%, history of renal chest and 2 in 1992 from a donor and in 1995 from a living donor, history of neck fracture, history of Covid 19 infection, severe aortic stenosis, anemia of chronic disease History of Any Multi-Drug Resistant Organisms: None Reported Past Surgical History: Appendectomy Additional Past Surgical History / Comment(s): Kidney transplant times 07/28/1992 and 1995 and the patient has a fistula in the left upper extremity Past Anesthesia/Blood Transfusion Reactions: No Reported Reaction Past Psychological History: No Psychological Hx Reported Smoking Status: Former smoker Past Alcohol Use History: Rare Past Drug Use History: None Reported - Past Family History Mother Family Medical History: Cancer Additional Family Medical History / Comment(s): pancreatic cancer Father Family Medical History: CVA/TIA Additional Family Medical History / Comment(s): father of stroke , mother pancreatic cancer General Exam - General Exam Comments Initial Comments: General: Appears in no acute distress. HEAD: Normal with no signs of head trauma. EYES: PERRLA, EOMI, conjunctiva normal, no discharge. ENT: Hearing grossly intact, normal oropharynx. RESPIRATORY: Clear breath sounds bilaterally. No wheezes, rales, or rhonchi. No hypoxia on baseline 3 L nasal cannula. C/V: Regular rate and rhythm. S1 and S2 auscultated, mild 1+ pitting edema symmetrical bilateral lower extremities., peripheral pulses 2+ and intact throughout. Has a palpable thrill and audible bruit of the patient's left upper extremity AV fistula. ABD: Abd is soft, nontender, nondistended EXT: Normal range of motion, no obvious deformity SKIN: No rashes or lesions observed on exposed skin. NEURO: Alert and oriented 4. Hard of hearing. Course Vital Signs 07/06/22 07/06/22 07/06/22 09:48 10:00 10:08 Temperature 98.5 F Pulse Rate 75 80 Respiratory 16 19 Rate Blood Pressure 131/81 131/81 O2 Sat by Pulse 100 99 99 Oximetry 07/06/22 07/06/22 07/06/22 10:30 10:49 11:00 Temperature Pulse Rate 79 80 80 Respiratory 19 16 20 Rate Blood Pressure 136/80 136/80 136/80 O2 Sat by Pulse 100 98 96 Oximetry Medical Decision Making - Medical Decision Making Based on the patient's presentation and physical exam, does appear volume overloaded and likely needed to finish his dialysis run. I'm not certain why they did not finish the dialysis run. Patient appears well. In no respiratory distress. We will obtain basic labs, chest x-ray, BNP. He was in agreement this plan. Vital signs otherwise within acceptable limits. No hypoxia on his baseline 3 L nasal cannula. Patient's laboratory studies are remarkable for a chronically elevated troponin with an his baseline. This is likely secondary to his history of ESRD. Patient's Covid, flu, RSV negative. BNP is elevated to 111,000 patient has a chronic anemia of 10.6 which is near his baseline. Chest x-ray revealed bilateral pulmonary edema as well as pleural effusions. Patient's EKG showed no signs of acute ischemia. On reevaluation, patient remains at his baseline. However on exertion, he does seem to desat slightly down to below 90%'s. He is having exertional dyspnea that is clinically significant. He likely requires further dialysis. I did recommend admission for nephrology to complete this. He was in agreement this plan. I spoke with the manager documentation on-call doctor Oscar and we discussed the case at length and he was in agreement that patient requires further dialysis. This was arranged. I spoke with the admitting physician, who accepted the admission. Patient was admitted in stable condition. Was pt. sent in by a medical professional or institution (, RON, TRANSCRIPTION MANAGER, urgent care, hospital, or custodial...) When possible be specific @ -Dialysis Center over concern for worsening dyspnea. Did you speak to anyone other than the patient for history (EMS, parent, family, police, friend...)? What history was obtained from this source @ -No Did you review nursing and triage notes (agree or disagree)? Why? @ -I reviewed and agree with nursing and triage notes Were old charts reviewed (outside hosp., previous admission, EMS record, old EKG, old radiological studies, urgent care reports/EKG's, custodial records)? Report findings @ -Yes, old labs and charts were reviewed. Differential Diagnosis (chest pain, altered mental status, abdominal pain women, abdominal pain men, vaginal bleeding, weakness, fever, dyspnea, syncope, headache, dizziness, GI bleed, back pain, seizure, CVA, palpatations, mental health)? @ -Volume overload, electrolyte abnormalities, CHF, exertional dyspnea. This list is not all inclusive. EKG interpreted by me (3pts min.). @ -As above X-rays interpreted by me (1pt min.). @ -Chest x-ray revealed bilateral pulmonary edema and pleural effusions. Concerning for volume overload. CT interpreted by me (1pt min.). @ -None done U/S interpreted by me (1pt. min.). @ -None done What testing was considered but not performed or refused? (CT, X-rays, U/S, labs)? Why? @ -None What meds were considered but not given or refused? Why? @ -None Did you discuss the management of the patient with other professionals (professionals i.e. , RON, TRANSCRIPTION MANAGER, lab, RT, psych nurse, social studies teacher, proofreader, teacher, registration officer, case planner)? Give summary @ -Yes, manager documentation Dr. Moore who was in agreement with the plan and will arrange for dialysis. I spoke with the admitting team Dr. Ferrara who accepted the admission. Was smoking cessation discussed for >3mins.? @ -No Was critical care preformed (if so, how long)? @ -No Were there social determinants of health that impacted care today? How? ( Homelessness, low income, unemployed, alcoholism, drug addiction, transportation, low edu. Level, literacy, decrease access to med. care, fpc, rehab)? @ -No Was there de-escalation of care discussed even if they declined (Discuss DNR or withdrawal of care, Hospice)? DNR status @ -No What co-morbidities impacted this encounter? (DM, HTN, Smoking, COPD, CAD, Cancer, CVA, ARF, Chemo, Hep., AIDS, mental health diagnosis, sleep apnea, morbid obesity)? @ -ESRD on hemodialysis. Was patient admitted / discharged? Hospital course, mention meds given and route, prescriptions, significant lab abnormalities, going to OR and other pertinent info. @ -Admitted to the hospital in stable condition. See above for emergency Department course. Undiagnosed new problem with uncertain prognosis? @ -No Drug Therapy requiring intensive monitoring for toxicity (Heparin, Nitro, Insulin, Cardizem)? @ -No Were any procedures done? @ -No Diagnosis/symptom? @ -Volume overload Acute, or Chronic, or Acute on Chronic? @ -Acute on chronic Uncomplicated (without systemic symptoms) or Complicated (systemic symptoms)? @ -Complicated Side effects of treatment? @ -No Exacerbation, Progression, or Severe Exacerbation? @ -No Poses a threat to life or bodily function? How? (Chest pain, [place], [place], pneumonia, PE, COPD, DKA, ARF, appy, cholecystitis, CVA, Diverticulitis, Homicidal, Suicidal, threat to staff... and all critical care pts) @ -Yes, if untreated can result in significant morbidity and mortality. Diagnosis/symptom? @ -History of ESRD on hemodialysis Acute, or Chronic, or Acute on Chronic? @ -Chronic Uncomplicated (without systemic symptoms) or Complicated (systemic symptoms)? @ -Complicated Side effects of treatment? @ -none Exacerbation, Progression, or Severe Exacerbation] @ -no Poses a threat to life or bodily function? @ -no Diagnosis/symptom? @ -Elevated troponin Acute, or Chronic, or Acute on Chronic? @ -Chronic Uncomplicated (without systemic symptoms) or Complicated (systemic symptoms)? @ -Uncomplicated Side effects of treatment? @ -none Exacerbation, Progression, or Severe Exacerbation] @ -no Poses a threat to life or bodily function? @ -no - Lab Data Result diagrams: 07/06/22 10:10 07/06/22 09:56 Lab Results 07/06/22 07/06/22 07/06/22 Range/Units 09:56 09:56 09:56 WBC (3.8-10.6) k/uL RBC (4.30-5.90) m/uL Hgb (13.0-17.5) gm/dL Hct (39.0-53.0) % MCV (80.0-100.0) fL MCH (25.0-35.0) pg MCHC (31.0-37.0) g/dL RDW (11.5-15.5) % Plt Count (150-450) k/uL MPV Neutrophils % % Lymphocytes % % Monocytes % % Eosinophils % % Basophils % % Neutrophils # (1.3-7.7) k/uL Lymphocytes # (1.0-4.8) k/uL Monocytes # (0-1.0) k/uL Eosinophils # (0-0.7) k/uL Basophils # (0-0.2) k/uL Anisocytosis Macrocytosis PT 13.0 H (9.0-12.0) sec INR 1.3 H (<1.2) APTT 30.9 H (22.0-30.0) sec Sodium 137 (137-145) mmol/L Potassium 4.1 (3.5-5.1) mmol/L Chloride 94 L (98-107) mmol/L Carbon Dioxide 33 H (22-30) mmol/L Anion Gap 10 mmol/L BUN 30 H (9-20) mg/dL Creatinine 3.05 H (0.66-1.25) mg/dL Est GFR (CKD-EPI)AfAm 22 (>60 ml/min/1.73 sqM) Est GFR (CKD-EPI)NonAf 19 (>60 ml/min/1.73 sqM) Glucose 77 (74-99) mg/dL Calcium 7.9 L (8.4-10.2) mg/dL Magnesium 1.8 (1.6-2.3) mg/dL Total Bilirubin 1.2 (0.2-1.3) mg/dL AST 69 H (17-59) U/L ALT 131 H (4-49) U/L Alkaline Phosphatase 178 H (38-126) U/L Troponin I 0.131 H* (0.000-0.034) ng/mL NT-Pro-B Natriuret Pep pg/mL Total Protein 7.4 (6.3-8.2) g/dL Albumin 3.7 (3.5-5.0) g/dL Influenza Type A (PCR) (Not Detectd) Influenza Type B (PCR) (Not Detectd) RSV (PCR) (Not Detectd) SARS-CoV-2 (PCR) (Not Detectd) 07/06/22 07/06/22 07/06/22 Range/Units 09:56 10:10 10:10 WBC 5.3 (3.8-10.6) k/uL RBC 3.30 L (4.30-5.90) m/uL Hgb 10.6 L (13.0-17.5) gm/dL Hct 32.8 L (39.0-53.0) % MCV 99.7 (80.0-100.0) fL MCH 32.1 (25.0-35.0) pg MCHC 32.2 (31.0-37.0) g/dL RDW 17.5 H (11.5-15.5) % Plt Count 95 L (150-450) k/uL MPV 11.3 Neutrophils % 69 % Lymphocytes % 12 % Monocytes % 13 % Eosinophils % 2 % Basophils % 1 % Neutrophils # 3.7 (1.3-7.7) k/uL Lymphocytes # 0.6 L (1.0-4.8) k/uL Monocytes # 0.7 (0-1.0) k/uL Eosinophils # 0.1 (0-0.7) k/uL Basophils # 0.0 (0-0.2) k/uL Anisocytosis Slight Macrocytosis Slight PT (9.0-12.0) sec INR (<1.2) APTT (22.0-30.0) sec Sodium (137-145) mmol/L Potassium (3.5-5.1) mmol/L Chloride (98-107) mmol/L Carbon Dioxide (22-30) mmol/L Anion Gap mmol/L BUN (9-20) mg/dL Creatinine (0.66-1.25) mg/dL Est GFR (CKD-EPI)AfAm (>60 ml/min/1.73 sqM) Est GFR (CKD-EPI)NonAf (>60 ml/min/1.73 sqM) Glucose (74-99) mg/dL Calcium (8.4-10.2) mg/dL Magnesium (1.6-2.3) mg/dL Total Bilirubin (0.2-1.3) mg/dL AST (17-59) U/L ALT (4-49) U/L Alkaline Phosphatase (38-126) U/L Troponin I (0.000-0.034) ng/mL NT-Pro-B Natriuret Pep [id number] pg/mL Total Protein (6.3-8.2) g/dL Albumin (3.5-5.0) g/dL Influenza Type A (PCR) Not Detected (Not Detectd) Influenza Type B (PCR) Not Detected (Not Detectd) RSV (PCR) Not Detected (Not Detectd) SARS-CoV-2 (PCR) Not Detected (Not Detectd) Disposition Clinical Impression: Volume overload, Dialysis patient, Elevated troponin Disposition: ADMITTED IP TO THIS [facility] Condition: Stable Time of Disposition: 11:40
--- NOTE | 2022-07-06 14:28 | P.NPCON ---
History of Present Illness - Reason for Consult Consult date: 07/06/22 end stage renal disease - Chief Complaint Shortness of breath - History of Present Illness 76-year-old gentleman referred from dialysis clinic after 2 hours of dialysis with worsening shortness of breath. He was recently hospitalized with similar problem, treated as worsening CHF. He has volume overload and he had an extra treatment yesterday. He did complete to oversew of dialysis in 2 L of fluid was removed. He did have episodes of low blood pressures during treatment. Discussion with the dialysis nurse, he was getting more labored breathing she got worried and called in EMS and sent him to the hospital. While in the hospital he is on 3 L oxygen by nasal cannula. No acute distress. Chest x-ray showed volume overload. Denies any chest pain. 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%, history of renal chest and 2 in 1992 from a donor and in 1995 from a living donor, history of neck fracture, history of Covid 19 infection, severe aortic stenosis, anemia of chronic disease History of Any Multi-Drug Resistant Organisms: None Reported Past Surgical History: Appendectomy Additional Past Surgical History / Comment(s): Kidney transplant times 07/28/1992 and 1995 and the patient has a fistula in the left upper extremity Past Anesthesia/Blood Transfusion Reactions: No Reported Reaction Past Psychological History: No Psychological Hx Reported Smoking Status: Former smoker Past Alcohol Use History: Rare Past Drug Use History: None Reported - Past Family History Mother Family Medical History: Cancer Additional Family Medical History / Comment(s): pancreatic cancer Father Family Medical History: CVA/TIA Additional Family Medical History / Comment(s): father of stroke , mother pancreatic cancer Medications and Allergies Home Medications Medication Instructions Recorded Confirmed Type Atorvastatin [Lipitor] 10 mg PO HS 01/29/22 07/06/22 History Cholecalciferol [Vitamin D3 (25 50 mcg PO DAILY 01/29/22 07/06/22 History Mcg = 1000 Iu)] [place]-3/Dha/Epa/Fish Oil [Fish Oil 1 cap PO DAILY 01/29/22 07/06/22 History 1,000 mg Softgel] Isosorbide Mononitrate ER [Imdur] 30 mg PO DAILY 01/30/22 07/06/22 History Aspirin 81 mg PO DAILY 05/01/22 07/06/22 History rOPINIRole HCL [Requip] 2 mg PO BID 05/01/22 07/06/22 History oxyCODONE-APAP 5-325MG [Percocet 1 tab PO TID PRN #9 tab 05/08/22 07/06/22 Rx 5-325 mg] Folic Acid/Vit B Complex and C 0.8 mg PO TUTHSA 06/03/22 07/06/22 History [Emy-Catalino Tablet] Sevelamer Carbonate 800 mg PO TID-W/MEALS 06/03/22 07/06/22 History Magnesium Oxide [Mag-Ox] 400 mg PO DAILY #30 tab 06/05/22 07/06/22 Rx Metoprolol Succinate (ER) [Toprol 25 mg PO DAILY #30 tab 06/26/22 07/06/22 Rx XL] Amoxic-Pot Clav 875-125Mg 1 tab PO BID 07/06/22 07/06/22 History [Augmentin 875-125] Colchicine 0.6 mg PO BID 07/06/22 07/06/22 History Allergies Allergy/AdvReac Type Severity Reaction Status Date / Time enalaprilat [From Vasotec] Allergy Swelling Verified 07/06/22 12:04 lisinopril Allergy Swelling Verified 07/06/22 12:04 Physical Exam Vitals: Vital Signs Temp Pulse Resp BP Pulse Ox 07/06/22 11:00 80 20 136/80 96 07/06/22 10:49 80 16 136/80 98 07/06/22 10:30 79 19 136/80 100 07/06/22 10:08 99 07/06/22 10:00 80 19 131/81 99 07/06/22 09:48 98.5 F 75 16 131/81 100 Intake and Output 07/05/22 07/06/22 07/06/22 22:59 06:59 14:59 Other: Weight 68.039 kg No acute distress S1-S2 heard Decreased breath sounds Trace edema Results - Lab Results Most recent lab results Calcium 7.9 mg/dL (8.4-10.2) L 07/06/22 09:56 Magnesium 1.8 mg/dL (1.6-2.3) 07/06/22 09:56 07/06/22 10:10 07/06/22 09:56 Assessment and Plan Assessment: #1 shortness of breath secondary to volume overload #2 ESRD on hemodialysis, TTS. #3 hypotensive episodes during dialysis. #4 anemia with ESRD #5 metabolic bone disease Plan: #1 plan hemodialysis today, 3 hours, 3 L of ultrafiltration. #2 ESRD medications #3 if patient stable after dialysis can be discharged from nephrology point of view to be followed up with dialysis clinic next week.
[2022-07-06] MEDS ORDERED: VIT B COMPLEX AND C PO SCH (14:45)
[2022-07-06] MEDS ORDERED: FOLIC ACID PO SCH (14:45)
--- NOTE | 2022-07-06 14:45 | P.HPIM ---
History of Present Illness H&P Date: 07/06/22 Chief Complaint: Dyspnea 76-year-old man with medical history of known CAD, chronic systolic heart failure with ejection fraction 20%, end-stage renal disease on Friday dialysis, hypertension, hyperlipidemia, restless leg syndrome presented for evaluation of dyspnea on exertion. Patient has been reporting increasing dyspnea on exertion for the last couple weeks, worse in the last couple days. He went to his routine dialysis session, where he was found to have worsening dyspnea while on dialysis. The dialysis nurse had concerns that the patient may need to be intubated and therefore sent the patient to the emergency room for further evaluation. At the time of evaluation the emergency room, patient was on his baseline oxygen requirement, but does get dyspneic with minimal exertion. Patient says that he has not been able to lie flat and quite some time and this is been affecting his sleep. He denies fevers, chills, nausea, vomiting, chest pain, palpitations, syncope, presyncope, abdominal pain, constipation, diarrhea, dysuria, dyschezia, numbness/weakness of extremities. He does report cough with sputum production, frothy white in nature. In the emergency room, patient was afebrile, 131/81, heart rate 80, 99% on 3 L of nasal cannula. CBC shows anemia 10.6, platelets of 95, both of which are close to baseline. Chemistries show chloride 94, CO2 33, BUN of 30, creatinine 3.05, otherwise unremarkable. Liver function test show an elevation of AST to 69, elevation of ALT 131, elevation of alkaline phosphatase to 178, otherwise unremarkable. ENT is 111,000, troponin is 0.131. Coags show elevated INR at 1.3. RSV, Covid, influenza A, B were all negative. Chest x-ray shows increasing pleural effusions as well as his primary vascularity insistent with volume overload, reviewed by admitting hospitalist. Case was discussed with emergency room physician and decision was made to admit the patient for observation for dialysis. All Systems reviewed and pertinent positives and negatives noted in HPI, all other symptoms are negative Gen: in no apparent distress, resting comfortably in bed Eyes: PERRL, no scleral injection or icterus HENT: normocephalic, atraumatic, good hearing acuity, moist mucous membranes Neck: no tracheal deviation, full range of motion Resp: good air exchange, breathing comfortably with no accessory muscle use, no tactile fremitus, bilateral crackles CVS: good distal perfusion x 4, bilateral 2+ pitting edema, regular rate and rhythm, soft systolic murmur GI: soft, NTTP, ND, no hepatosplenomegaly : no suprapubic tenderness, no CVAT, redmond catheter not present MSK: no clubbing, no cyanosis, no noted contractures of extremities Skin: no noted rashes, petechiae; temperature of skin is appropriate Neuro: moving all extremities without signs of weakness, CN II-XII intact Psych: cooperative, euthymic mood, insight and judgment intact Labs and imaging as above Assessment/plan: End-stage renal disease with volume overload Chronic combined systolic and diastolic heart failure, ejection fraction 20% Chronic respiratory failure -Admit to observation, telemetry -Nephrology consult -Dialysis session today, schedule for dialysis session on Friday for extra ultrafiltration, this was discussed with nephrology -After discussion with nephrology, patient can be discharged following his dial ysis session. 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%, history of renal chest and 2 in 1992 from a donor and in 1995 from a living donor, history of neck fracture, history of Covid 19 infection, severe aortic stenosis, anemia of chronic disease History of Any Multi-Drug Resistant Organisms: None Reported Past Surgical History: Appendectomy Additional Past Surgical History / Comment(s): Kidney transplant times 07/28/1992 and 1995 and the patient has a fistula in the left upper extremity Past Anesthesia/Blood Transfusion Reactions: No Reported Reaction Past Psychological History: No Psychological Hx Reported Smoking Status: Former smoker Past Alcohol Use History: Rare Past Drug Use History: None Reported - Past Family History Mother Family Medical History: Cancer Additional Family Medical History / Comment(s): pancreatic cancer Father Family Medical History: CVA/TIA Additional Family Medical History / Comment(s): father of stroke , mother pancreatic cancer Medications and Allergies Home Medications Medication Instructions Recorded Confirmed Type Atorvastatin [Lipitor] 10 mg PO HS 01/29/22 07/06/22 History Cholecalciferol [Vitamin D3 (25 50 mcg PO DAILY 01/29/22 07/06/22 History Mcg = 1000 Iu)] [place]-3/Dha/Epa/Fish Oil [Fish Oil 1 cap PO DAILY 01/29/22 07/06/22 History 1,000 mg Softgel] Isosorbide Mononitrate ER [Imdur] 30 mg PO DAILY 01/30/22 07/06/22 History Aspirin 81 mg PO DAILY 05/01/22 07/06/22 History rOPINIRole HCL [Requip] 2 mg PO BID 05/01/22 07/06/22 History oxyCODONE-APAP 5-325MG [Percocet 1 tab PO TID PRN #9 tab 05/08/22 07/06/22 Rx 5-325 mg] Folic Acid/Vit B Complex and C 0.8 mg PO TUTHSA 06/03/22 07/06/22 History [Emy-Catalino Tablet] Sevelamer Carbonate 800 mg PO TID-W/MEALS 06/03/22 07/06/22 History Magnesium Oxide [Mag-Ox] 400 mg PO DAILY #30 tab 06/05/22 07/06/22 Rx Metoprolol Succinate (ER) [Toprol 25 mg PO DAILY #30 tab 06/26/22 07/06/22 Rx XL] Amoxic-Pot Clav 875-125Mg 1 tab PO BID 07/06/22 07/06/22 History [Augmentin 875-125] Colchicine 0.6 mg PO BID 07/06/22 07/06/22 History Allergies Allergy/AdvReac Type Severity Reaction Status Date / Time enalaprilat [From Vasotec] Allergy Swelling Verified 07/06/22 12:04 lisinopril Allergy Swelling Verified 07/06/22 12:04 Physical Exam Osteopathic Statement: *. No significant issues noted on an osteopathic structural exam other than those noted in the History and Physical/Consult. Vitals: Vital Signs Temp Pulse Resp BP Pulse Ox 07/06/22 11:00 80 20 136/80 96 07/06/22 10:49 80 16 136/80 98 07/06/22 10:30 79 19 136/80 100 07/06/22 10:08 99 07/06/22 10:00 80 19 131/81 99 07/06/22 09:48 98.5 F 75 16 131/81 100 Intake and Output 07/05/22 07/06/22 07/06/22 22:59 06:59 14:59 Other: Weight 68.039 kg Results CBC & Chem 7: 07/06/22 10:10 07/06/22 09:56 Labs: Abnormal Lab Results - Last 24 Hours (Table) 07/06/22 07/06/22 07/06/22 Range/Units 09:56 09:56 09:56 RBC (4.30-5.90) m/uL Hgb (13.0-17.5) gm/dL Hct (39.0-53.0) % RDW (11.5-15.5) % Plt Count (150-450) k/uL Lymphocytes # (1.0-4.8) k/uL PT 13.0 H (9.0-12.0) sec INR 1.3 H (<1.2) APTT 30.9 H (22.0-30.0) sec Chloride 94 L (98-107) mmol/L Carbon Dioxide 33 H (22-30) mmol/L BUN 30 H (9-20) mg/dL Creatinine 3.05 H (0.66-1.25) mg/dL Calcium 7.9 L (8.4-10.2) mg/dL AST 69 H (17-59) U/L ALT 131 H (4-49) U/L Alkaline Phosphatase 178 H (38-126) U/L Troponin I 0.131 H* (0.000-0.034) ng/mL 07/06/22 Range/Units 10:10 RBC 3.30 L (4.30-5.90) m/uL Hgb 10.6 L (13.0-17.5) gm/dL Hct 32.8 L (39.0-53.0) % RDW 17.5 H (11.5-15.5) % Plt Count 95 L (150-450) k/uL Lymphocytes # 0.6 L (1.0-4.8) k/uL PT (9.0-12.0) sec INR (<1.2) APTT (22.0-30.0) sec Chloride (98-107) mmol/L Carbon Dioxide (22-30) mmol/L BUN (9-20) mg/dL Creatinine (0.66-1.25) mg/dL Calcium (8.4-10.2) mg/dL AST (17-59) U/L ALT (4-49) U/L Alkaline Phosphatase (38-126) U/L Troponin I (0.000-0.034) ng/mL
[2022-07-06] MEDS ORDERED: HEPARIN SODIUM,PORCINE/PF 5,000 UNIT/0.5 ML SYRINGE SQ SCH (16:00)
--- NOTE | 2022-07-06 17:13 | XR ---
EXAMINATION TYPE: XR foot complete LT DATE OF EXAM: 07/06/2022 4:24 PM INDICATION: Patient age:Male; 76 years old; Reason for study: Pt has order. Osteomyelitis of left second toe; PHH. COMPARISON: Left foot radiograph 04/12/2022 TECHNIQUE: The left foot was examined in the AP, oblique, and lateral projections. FINDINGS: No acute fracture or dislocation. Mild joint space narrowing of the distal interphalangeal joints. Ma rginal osteophytes present. Diffuse soft tissue swelling and edema. No gross bony destructive changes . Pronounced vascular calcifications. IMPRESSION: Diffuse soft tissue edema without any destructive osseous changes.
--- NOTE | 2022-07-06 17:16 | P.DS ---
Providers Date of admission: 07/06/22 12:01 Expected date of discharge: 07/06/22 Attending physician: Miguel Ferrara MD Consults: 07/06/22 12:01 Consult Physician Routine Consulting Provider: Barbara Maldonado Consult Reason/Comments: incomplete dialysis run, volume overload Do you want consulting provider notified?: Already Contacted Primary care physician: Fransisco Pereira [facility] Course: End-stage renal disease with volume overload Chronic combined systolic and diastolic heart failure, ejection fraction 20% Chronic respiratory failure CAD Hypertension Hyperlipidemia Restless leg syndrome 76-year-old man with medical history of known CAD, chronic systolic heart failure with ejection fraction 20%, end-stage renal disease on Friday dialysis, hypertension, hyperlipidemia, restless leg syndrome presented for evaluation of dyspnea on exertion. In the emergency room, patient was afebrile, 131/81, heart rate 80, 99% on 3 L of nasal cannula. CBC shows anemia 10.6, platelets of 95, both of which are close to baseline. Chemistries show chloride 94, CO2 33, BUN of 30, creatinine 3.05, otherwise unremarkable. Liver function test show an elevation of AST to 69, elevation of ALT 131, elevation of alkaline phosphatase to 178, otherwise unremarkable. ENT is 111,000, troponin is 0.131. Coags show elevated INR at 1.3. RSV, Covid, influenza A, B were all negative. Chest x-ray shows increasing pleural effusions as well as his primary vascularity consistent with volume overload, reviewed by admitting hospitalist. Case was discussed with emergency room physician and decision was made to admit the patient for observation for dialysis. Patient underwent dialysis with plan for ultrafiltration of 3 L. Doing well after the procedure, discharged home with plan to repeat dialysis on Friday and then resume his Friday schedule. See same day history and physical for physical exam Patient Condition at Discharge: Good Plan - Discharge Summary New Discharge Prescriptions: Continue Atorvastatin [Lipitor] 10 mg PO HS Cholecalciferol [Vitamin D3 (25 Mcg = 1000 Iu)] 50 mcg PO DAILY Aspirin 81 mg PO DAILY Folic Acid/Vit B Complex and C [Emy-Catalino Tablet] 0.8 mg PO TUTHSA Sevelamer Carbonate 800 mg PO TID-W/MEALS Magnesium Oxide [Mag-Ox] 400 mg PO DAILY #30 tab Amoxic-Pot Clav 875-125Mg [Augmentin 875-125] 1 tab PO BID [place]-3/Dha/Epa/Fish Oil [Fish Oil 1,000 mg Softgel] 1 cap PO DAILY Isosorbide Mononitrate ER [Imdur] 30 mg PO DAILY rOPINIRole HCL [Requip] 2 mg PO BID oxyCODONE-APAP 5-325MG [Percocet 5-325 mg] 1 tab PO TID PRN #9 tab PRN Reason: Pain Metoprolol Succinate (ER) [Toprol XL] 25 mg PO DAILY #30 tab Colchicine 0.6 mg PO BID Discharge Medication List Atorvastatin [Lipitor] 10 mg PO HS 01/29/22 [History] Cholecalciferol [Vitamin D3 (25 Mcg = 1000 Iu)] 50 mcg PO DAILY 01/29/22 [History] [place]-3/Dha/Epa/Fish Oil [Fish Oil 1,000 mg Softgel] 1 cap PO DAILY 01/29/22 [History] Isosorbide Mononitrate ER [Imdur] 30 mg PO DAILY 01/30/22 [History] Aspirin 81 mg PO DAILY 05/01/22 [History] rOPINIRole HCL [Requip] 2 mg PO BID 05/01/22 [History] oxyCODONE-APAP 5-325MG [Percocet 5-325 mg] 1 tab PO TID PRN #9 tab 05/08/22 [Rx] Folic Acid/Vit B Complex and C [Emy-Catalino Tablet] 0.8 mg PO TUTHSA 06/03/22 [History] Sevelamer Carbonate 800 mg PO TID-W/MEALS 06/03/22 [History] Magnesium Oxide [Mag-Ox] 400 mg PO DAILY #30 tab 06/05/22 [Rx] Metoprolol Succinate (ER) [Toprol XL] 25 mg PO DAILY #30 tab 06/26/22 [Rx] Amoxic-Pot Clav 875-125Mg [Augmentin 875-125] 1 tab PO BID 07/06/22 [History] Colchicine 0.6 mg PO BID 07/06/22 [History] Follow up Appointment(s)/Referral(s): Fransisco Pereira MD [Primary Care Provider] - 1-2 days Discharge Disposition: HOME WITH HOME HEALTH SERVICES
[2022-07-06] MEDS ORDERED: SEVELAMER 800 MG TAB PO SCH (17:30)
[2022-07-06 17:45] VITALS: BP 130/77; PULSE 84
[2022-07-06] MEDS ORDERED: COLCHICINE 0.6 MG EACH PO SCH (21:00)
[2022-07-06] MEDS ORDERED: AMOXIC-POT CLAV 875-125MG 1 EACH TAB PO SCH (21:00)
[2022-07-06] MEDS ORDERED: ATORVASTATIN 10 MG TAB PO SCH (21:00)
[2022-07-07] MEDS ORDERED: METOPROLOL SUCCINATE (ER) 25 MG TAB.ER.24H PO SCH (09:00)
[2022-07-07] MEDS ORDERED: MAGNESIUM OXIDE 400 MG TAB PO SCH (09:00)
[2022-07-07] MEDS ORDERED: CHOLECALCIFEROL 25 MCG (1000 IU) TABLET PO SCH (09:00)
[2022-07-07] MEDS ORDERED: NON FORMULARY DRUG (Omega-3/Dha/Epa/Fish Oil [Fish Oil 1,000 Mg Softgel] 1 EACH Capsule) PO SCH (09:00)
[2022-07-07] MEDS ORDERED: ISOSORBIDE MONONITRATE ER 30 MG TAB.ER.24H PO SCH (09:00)
[2022-07-07] MEDS ORDERED: ASPIRIN 81 MG PO SCH (09:00)
== END 2022-07-06 18:01 | disposition home health service (06) ==
LOC: EC 09:46 → INTOOBSV 12:01 → 3SCARD 12:01
PROVIDERS: ADMIT Student in an Organized Health Care Education/Training Program; ATTEND Student in an Organized Health Care Education/Training Program
DX: E87.70 Fluid overload, unspecified (principal); I13.2 Hypertensive heart and chronic kidney disease with heart failure and with stage 5 chronic kidney disease, or end stage renal disease; N18.6 End stage renal disease; I50.22 Chronic systolic (congestive) heart failure; Z90.49 Acquired absence of other specified parts of digestive tract; Z94.0 Kidney transplant status; Z99.2 Dependence on renal dialysis; R77.8 Other specified abnormalities of plasma proteins; Z20.822 Contact with and (suspected) exposure to COVID-19; E78.5 Hyperlipidemia, unspecified; G25.81 Restless legs syndrome; D63.1 Anemia in chronic kidney disease; J81.1 Chronic pulmonary edema; J90 Pleural effusion, not elsewhere classified; Z87.891 Personal history of nicotine dependence; Z80.0 Family history of malignant neoplasm of digestive organs; Z82.49 Family history of ischemic heart disease and other diseases of the circulatory system; Z82.3 Family history of stroke; Z86.73 Personal history of transient ischemic attack (TIA), and cerebral infarction without residual deficits; Z86.16 Personal history of COVID-19; I35.0 Nonrheumatic aortic (valve) stenosis; Z79.82 Long term (current) use of aspirin; Z79.899 Other long term (current) drug therapy; Z88.8 Allergy status to other drugs, medicaments and biological substances
CPT/HCPCS: 99285; 36415; 93005; 83880; 80053; 83735; 84484; 85025; 85610; 85730; 87636; 73630; 71046; G0378

== ENCOUNTER 2022-08-16 20:55 | Observation (INO) | payer MEDICARE, OTHER ==
--- NOTE | 2022-08-16 21:37 | ED ---
General Adult HPI - General Chief complaint: Fall Stated complaint: Fall Time Seen by Provider: 08/16/22 21:04 Source: patient, EMS Mode of arrival: EMS Limitations: no limitations - History of Present Illness Initial comments: This is a 76-year-old male with a past medical history including hypertension and previously diagnosed dementia presents emergency department for a fall via EMS. The patient stated that he was going to the bathroom when he stood up and fell after losing his balance, hitting the left side of his head. The patient denied loss of consciousness and denied any other acute pain or distress. The patient stated that he did not have any lightheadedness or dizziness. The patient did admit that he had been falling multiple times recently at home. The patient was resting in bed stating that his only pain was on the left side of his forehead where he fell. The patient was in a c-collar. The patient was resting in bed comfortably without any pain. - Related Data Home Medications Medication Instructions Recorded Confirmed Atorvastatin [Lipitor] 10 mg PO HS 01/29/22 08/16/22 Cholecalciferol [Vitamin D3 (25 50 mcg PO DAILY 01/29/22 08/16/22 Mcg = 1000 Iu)] [place]-3/Dha/Epa/Fish Oil [Fish Oil 1 cap PO DAILY 01/29/22 08/16/22 1,000 mg Softgel] Isosorbide Mononitrate ER [Imdur] 30 mg PO DAILY 01/30/22 08/16/22 Aspirin 81 mg PO DAILY 05/01/22 08/16/22 rOPINIRole HCL [Requip] 2 mg PO BID 05/01/22 08/16/22 Folic Acid/Vit B Complex and C 0.8 mg PO TUTHSA 06/03/22 08/16/22 [Emy-Catalino Tablet] Sevelamer Carbonate 1,600 mg PO PC-TID 06/03/22 08/16/22 Bumetanide [BUMEX] 4 mg PO DAILY 08/16/22 08/16/22 Calcium Acetate [Phoslo] 667 mg PO PC-TID 08/16/22 08/16/22 Gabapentin [Neurontin] 100 mg PO HS 08/16/22 08/16/22 Lidocaine-Prilocaine Cream [Emla 1 applic TOPICAL TUTHSA PRN 08/16/22 08/16/22 Cream 2.5%/2.5%] Previous Rx's Medication Instructions Recorded oxyCODONE-APAP 5-325MG [Percocet 1 tab PO TID PRN #9 tab 05/08/22 5-325 mg] Magnesium Oxide [Mag-Ox] 400 mg PO DAILY #30 tab 06/05/22 Metoprolol Succinate (ER) [Toprol 25 mg PO DAILY #30 tab 06/26/22 XL] Allergies Allergy/AdvReac Type Severity Reaction Status Date / Time enalaprilat [From Vasotec] Allergy Swelling Verified 08/16/22 21:29 lisinopril Allergy Swelling Verified 08/16/22 21:29 Review of Systems ROS Statement: Those systems with pertinent positive or pertinent negative responses have been documented in the HPI. ROS Other: All systems not noted in ROS Statement are negative. 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%, history of renal chest and 2 in 1992 from a donor and in 1995 from a living donor, history of neck fracture, history of Covid 19 infection, severe aortic stenosis, anemia of chronic disease History of Any Multi-Drug Resistant Organisms: None Reported Past Surgical History: Appendectomy Additional Past Surgical History / Comment(s): Kidney transplant times 07/28/1992 and 1995 and the patient has a fistula in the left upper extremity Past Anesthesia/Blood Transfusion Reactions: No Reported Reaction Past Psychological History: No Psychological Hx Reported Smoking Status: Former smoker Past Alcohol Use History: Rare Past Drug Use History: None Reported - Past Family History Mother Family Medical History: Cancer Additional Family Medical History / Comment(s): pancreatic cancer Father Family Medical History: CVA/TIA Additional Family Medical History / Comment(s): father of stroke , mother pancreatic cancer General Exam Limitations: no limitations General appearance: alert, in no apparent distress Head exam: Present: normocephalic, normal inspection, other (Small, 0.5 cm hematoma over the left forehead just above the eyebrow) Eye exam: Present: normal appearance, PERRL Pupils: Present: normal accommodation ENT exam: Present: normal exam, normal oropharynx, mucous membranes moist Neck exam: Present: normal inspection, other (In c-collar) Respiratory exam: Present: normal lung sounds bilaterally Cardiovascular Exam: Present: regular rate, normal rhythm, normal heart sounds GI/Abdominal exam: Present: soft, normal bowel sounds Extremities exam: Present: normal inspection, full ROM Back exam: Present: normal inspection, full ROM Neurological exam: Present: alert, oriented X3, CN II-XII intact Psychiatric exam: Present: normal affect, normal mood Skin exam: Present: warm, dry Course Vital Signs 08/16/22 21:00 Temperature 98 F Pulse Rate 81 Respiratory 16 Rate Blood Pressure 130/91 O2 Sat by Pulse 98 Oximetry EKG Findings - EKG Comments: EKG Findings:: In EKG was obtained and was interpreted by myself showing a rate of 75, TX interval of 159, QRS duration of 122 and QTC of 474. This EKG showed a normal sinus rhythm with no ST segment elevation or depression noted. Medical Decision Making - Medical Decision Making Was pt. sent in by a medical professional or institution (, PA, GAMING INVESTIGATOR, urgent care, hospital, or [facility]...) When possible be specific @ -No Did you speak to anyone other than the patient for history (EMS, parent, family, police, friend...)? What history was obtained from this source @ -Yes, patient's daughter Did you review nursing and triage notes (agree or disagree)? Why? @ -I reviewed and agree with nursing and triage notes Were old charts reviewed (outside hosp., previous admission, EMS record, old EKG, old radiological studies, urgent care reports/EKG's, [facility] records)? Report findings @ -No old charts were reviewed Differential Diagnosis (chest pain, altered mental status, abdominal pain women, abdominal pain men, vaginal bleeding, weakness, fever, dyspnea, syncope, headache, dizziness, GI bleed, back pain, seizure, CVA, palpatations, mental health)? @ -Intracranial hemorrhage, cervical spinal fracture, hip fracture EKG interpreted by me (3pts min.). @ -As above X-rays interpreted by me (1pt min.). @ -Chest x-ray was obtained and was interpreted by myself showing mild cardiomegaly. There was minimal pleural fluid. There are pleural effusions that were improved compared to the last exam. A pelvis x-ray was also obtained and was interpreted by myself showing no acute abnormalities the pelvis and both hips. CT interpreted by me (1pt min.). @ -CT head and CT C-spine was obtained and was interpreted by myself showing cerebral atrophy and chronic small vessel ischemia. There appears to be some left-sided posterior soft tissue swelling at the skull base. There was no acute intracranial abnormality. There was no cervical spinal fracture noted. U/S interpreted by me (1pt. min.). @ -None done What testing was considered but not performed or refused? (CT, X-rays, U/S, labs)? Why? @ -None What meds were considered but not given or refused? Why? @ -None Did you discuss the management of the patient with other professionals (pr ofessionals i.e. , PA, GAMING INVESTIGATOR, lab, RT, psych nurse, social insurance adviser, skill training program coordinator, teacher, electrical engineering drafting officer, rehabilitation caseworker)? Give summary @ -Yes, admitting physician Was smoking cessation discussed for >3mins.? @ -No Was critical care preformed (if so, how long)? @ -No Were there social determinants of health that impacted care today? How? (Homelessness, low income, unemployed, alcoholism, drug addiction, transportation, low edu. Level, literacy, decrease access to med. care, assisted, rehab)? @ -No Was there de-escalation of care discussed even if they declined (Discuss DNR or withdrawal of care, Hospice)? DNR status @ -No What co-morbidities impacted this encounter? (DM, HTN, Smoking, COPD, CAD, Cancer, CVA, ARF, Chemo, Hep., AIDS, mental health diagnosis, sleep apnea, morbid obesity)? @ -Multiple falls, end-stage renal disease on dialysis Friday, and Friday, hypertension, mild dementia Was patient admitted / discharged? Hospital course, mention meds given and route, prescriptions, significant lab abnormalities, going to OR and other pertinent info. @ -The patient was seen and evaluated in the emergency department. Physical exam, the patient was resting in bed without any acute distress. The signs admission were stable and initially, only imaging was obtained and all imaging was within normal limits. When the patient was told of this, the patient was initially okay with being discharged home. The patient's family also stated that he was at his baseline and was agreeable to taking the patient home. However, the patient stated that he was concerned that he would be falling multiple times at home as he has fallen multiple times at home over the last several days. Because of this, the patient did not feel comfortable going home. I did agree to place the patient in observation to be observed overnight in order to receive dialysis in the morning. Laboratory workup was obtained for admission purposes. The patient continued to remain stable and was also advised that he would have evaluation for [facility] placement as the patient had multiple falls at home. The patient was agreeable to this and the patient was placed in observation in stable condition. Undiagnosed new problem with uncertain prognosis? @ -No Drug Therapy requiring intensive monitoring for toxicity (Heparin, Nitro, Insulin, Cardizem)? @ -No Were any procedures done? @ -No Diagnosis/symptom? @ -Fall, closed head injury Acute, or Chronic, or Acute on Chronic? @ -Acute on chronic Uncomplicated (without systemic symptoms) or Complicated (systemic symptoms)? @ -Uncomplicated Side effects of treatment? @ -No Exacerbation, Progression, or Severe Exacerbation? @ -No Poses a threat to life or bodily function? How? (Chest pain, [place], [place], pneumonia, PE, COPD, DKA, ARF, appy, cholecystitis, CVA, Diverticulitis, Homicidal, S uicidal, threat to staff... and all critical care pts) @ -No Diagnosis/symptom? @ -Multiple falls Acute, or Chronic, or Acute on Chronic? @ -Chronic Uncomplicated (without systemic symptoms) or Complicated (systemic symptoms)? @ -Uncomplicated Side effects of treatment? @ -none Exacerbation, Progression, or Severe Exacerbation] @ -no Poses a threat to life or bodily function? @ -no Disposition Clinical Impression: Fall, Closed head injury Disposition: ADMITTED IP TO THIS HOSP Condition: Stable Is patient prescribed a controlled substance at d/c from ED?: No Referrals: Fransisco Pereira MD [Primary Care Provider] - 1-2 days Time of Disposition: 23:00 Decision to Admit Reason: Admit from EC Decision Date: 08/16/22 Decision Time: 23:00
--- NOTE | 2022-08-16 22:30 | CT ---
EXAMINATION TYPE: CT brain yohannes wo con DATE OF EXAM: 08/16/2022 COMPARISON: None HISTORY: Fall CT DLP: 1655.6 mGycm Automated exposure control for dose reduction was used. Images obtained of the brain and cervical spine without contrast. There is some hypodensity in the periventricular white matter. There is no mass effect or midline saundra ft. No sign of intracranial hemorrhage. Calvarium is intact. There is cerebral cortical atrophy. There is occipital scalp swelling at the skull base on the left side. The cervical vertebra show some straightening. There is degenerative disc space narrowing in the mid and lower cervical spine. There is spurring of the endplates. Facet joints are intact. There is multi level cervical hypertrophic facet arthropathy. IMPRESSION: Cerebral atrophy and chronic small vessel ischemia. There appears to be some left side posterior soft tissue swelling at the skull base. Correlation with physical exam is needed. No acute intracranial a bnormality. Spondylotic changes in the cervical spine. No cervical spine fracture.
--- NOTE | 2022-08-16 22:31 | XR ---
EXAMINATION TYPE: XR chest 1V DATE OF EXAM: 08/16/2022 COMPARISON: 07/06/2022 HISTORY: Trauma TECHNIQUE: Single view FINDINGS: Heart is enlarged. No heart failure. There is slight blunting of the costophrenic angles. T horacic aorta is atheromatous. There are no hilar masses. IMPRESSION: Mild cardiomegaly. Minimal pleural fluid. Pleural effusions improved compared to last exa m pulmonary congestion improved.
--- NOTE | 2022-08-16 22:32 | XR ---
EXAMINATION TYPE: XR Hip Bilateral and AP pelvis DATE OF EXAM: 08/16/2022 COMPARISON: NONE HISTORY: Pain TECHNIQUE: 5 views FINDINGS: The pelvic ring is intact. The proximal femurs and hip joints are intact. There is extensiv e vascular calcification. Sacroiliac joints are intact. IMPRESSION: No acute abnormality of the pelvis and both hips.
[2022-08-17] MEDS ORDERED: NALOXONE 0.4 MG/ML 1 ML VIAL IV PRN (00:06)
[2022-08-17 00:09] LABS: Anisocytosis Slight; Basophils % (A) 0 %; Eosinophils % (A) 0 %; HCT 32.3 % (39.0-53.0); HGB 10.2 gm/dL (13.0-17.5); Lymphocytes # (A) 0.4 k/uL (1.0-4.8); Lymphocytes % (A) 6 %; MCH 30.8 pg (25.0-35.0); MCHC 31.6 g/dL (31.0-37.0); MCV 97.5 fL (80.0-100.0); Macrocytosis Slight; Mean Platelet Volume 10.9; Monocytes # (A) 0.4 k/uL (0-1.0); Monocytes % (A) 6 %; Neutrophils # (A) 5.9 k/uL (1.3-7.7); Neutrophils % (A) 87 %; Platelet Count 135 k/uL (150-450); RBC 3.32 m/uL (4.30-5.90); WBC 6.8 k/uL (3.8-10.6)
[2022-08-17 00:21] LABS: Albumin 3.9 g/dL (3.5-5.0); Calcium 7.8 mg/dL (8.4-10.2); Magnesium 1.8 mg/dL (1.6-2.3); Potassium 4.5 mmol/L (3.5-5.1); Total Protein 7.7 g/dL (6.3-8.2)
[2022-08-17 00:26] LABS: INR 1.5 (<1.2); Partial Thromboplastin Time 27.6 sec (22.0-30.0); Prothrombin Time 15.1 sec (9.0-12.0)
--- NOTE | 2022-08-17 05:05 | P.HPIM ---
History of Present Illness H&P Date: 08/17/22 The patient is a 76-year-old male with a PMH of chronic systolic CHF with EF 20%, coronary artery disease, ESRD and hemodialysis Friday, , Friday, hypertension, and hyperlipidemia who presents to the emergency room after a fall. The patient reports that he was at his home using the bathroom when he lost his balance as he attempted to stand up, falling and hitting the side of his head. The patient denied losing consciousness. Most denied experiencing chest discomfort, shortness of breath, or dizziness. States that he has simply lost his balance. He reports multiple falls over the past few days due to his poor balance. That experiencing chest discomfort, shortness of breath, nausea, vomiting, diaphoresis.Review of systems: Pertinent positives and negatives as discussed in HPI, a complete review of systems was performed and all other systems are negative. Physical examination: Vital signs reviewed General: non toxic, no distress, appears at stated age, normal weight Derm: no unusual rashes/lesions, warm Head: atraumatic, normocephalic, symmetric Eyes: EOMI, no lid lag, anicteric sclera, pupils equal round reactive to light ENT: Nose and ears atraumatic Neck: No cervical lymphadenopathy, trachea midline, supple Mouth: no lip lesion, mucus membranes moist Cardiovascular: S1S2 reg, no murmur, positive dorsalis pedis pulse bilateral, no edema Lungs: CTA bilateral, no rhonchi, no rales, no accessory muscle use Abdominal: soft, nontender to palpation, no guarding Ext: muscle strength 5 out of 5 in all 4 extremities grossly, no gross muscle atrophy, no contractures, Neuro: CN II-XI grossly intact, no gross focal neuro deficits Psych: Alert, oriented, appropriate affect Assessment: Multiple falls with debility Chronic conditions: CHF, CAD, hypertension, hyperlipidemia, ESRD Imaging: CT head and cervical spine revealed a left-sided posterior soft tissue swelling of the skull base. Chest x-ray revealed mild cardiomegaly. Hip and pelvis x- ray was unremarkable. EKG revealed sinus rhythm with left axis deviation at 75 bpm with a prolonged QT interval and poor R-wave progression. Data Review: Laboratory evaluation was remarkable for troponin 0.093 (lower than baseline of 0.14), proBNP 171,000, BUN 63, creatinine 5.0, hemoglobin 10.4, and platelets 135 (improved from 95 6 weeks ago) Plan: PT consult Nephrology consulted for resumption of hemodialysis Continue with the following home medications: -Aspirin 81 mg by mouth daily -Lipitor 10 mg by mouth daily at bedtime -Imdur 30 mg by mouth daily -Bumex 4 mg by mouth daily -Toprol 25 mg by mouth daily DVT prophylaxis: Heparin subq The patient is admitted with an anticipated less than 2 midnight stay for evaluation of debility CODE STATUS: Full Code Discussed with: Patient Anticipated discharge place: Home 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%, history of renal chest and 2 in 1992 from a donor and in 1995 from a living donor, history of neck fracture, history of Covid 19 infection, severe aortic stenosis, anemia of chronic disease History of Any Multi-Drug Resistant Organisms: None Reported Past Surgical History: Appendectomy Additional Past Surgical History / Comment(s): Kidney transplant times 07/28/1992 and 1995 and the patient has a fistula in the left upper extremity Past Anesthesia/Blood Transfusion Reactions: No Reported Reaction Past Psychological History: No Psychological Hx Reported Smoking Status: Former smoker Past Alcohol Use History: Rare Additional Past Alcohol Use History / Comment(s): patient can not remember when he stopped smoking Past Drug Use History: None Reported - Past Family History Mother Family Medical History: Cancer Additional Family Medical History / Comment(s): pancreatic cancer Father Family Medical History: CVA/TIA Additional Family Medical History / Comment(s): father of stroke , mother pancreatic cancer Medications and Allergies Home Medications Medication Instructions Recorded Confirmed Type Atorvastatin [Lipitor] 10 mg PO HS 01/29/22 08/16/22 History Cholecalciferol [Vitamin D3 (25 50 mcg PO DAILY 01/29/22 08/16/22 History Mcg = 1000 Iu)] [place]-3/Dha/Epa/Fish Oil [Fish Oil 1 cap PO DAILY 01/29/22 08/16/22 History 1,000 mg Softgel] Isosorbide Mononitrate ER [Imdur] 30 mg PO DAILY 01/30/22 08/16/22 History Aspirin 81 mg PO DAILY 05/01/22 08/16/22 History rOPINIRole HCL [Requip] 2 mg PO BID 05/01/22 08/16/22 History oxyCODONE-APAP 5-325MG [Percocet 1 tab PO TID PRN #9 tab 05/08/22 08/16/22 Rx 5-325 mg] Folic Acid/Vit B Complex and C 0.8 mg PO TUTHSA 06/03/22 08/16/22 History [Emy-Catalino Tablet] Sevelamer Carbonate 1,600 mg PO PC-TID 06/03/22 08/16/22 History Magnesium Oxide [Mag-Ox] 400 mg PO DAILY #30 tab 06/05/22 08/16/22 Rx Metoprolol Succinate (ER) [Toprol 25 mg PO DAILY #30 tab 06/26/22 08/16/22 Rx XL] Bumetanide [BUMEX] 4 mg PO DAILY 08/16/22 08/16/22 History Calcium Acetate [Phoslo] 667 mg PO PC-TID 08/16/22 08/16/22 History Gabapentin [Neurontin] 100 mg PO HS 08/16/22 08/16/22 History Lidocaine-Prilocaine Cream [Emla 1 applic TOPICAL TUTHSA PRN 08/16/22 08/16/22 History Cream 2.5%/2.5%] Allergies Allergy/AdvReac Type Severity Reaction Status Date / Time enalaprilat [From Vasotec] Allergy Swelling Verified 08/16/22 21:29 lisinopril Allergy Swelling Verified 08/16/22 21:29 Physical Exam Vitals: Vital Signs Temp Pulse Pulse Resp BP BP Pulse Ox 08/17/22 01:08 97.6 F 77 18 129/89 100 08/17/22 00:30 75 18 128/76 97 08/17/22 00:09 20 97 08/16/22 21:00 98 F 81 16 130/91 98 Intake and Output 08/16/22 08/16/22 08/17/22 14:59 22:59 06:59 Other: Weight 68.492 kg 68.492 kg Results CBC & Chem 7: 08/16/22 23:54 08/16/22 23:54 Labs: Abnormal Lab Results - Last 24 Hours (Table) 08/16/22 08/16/22 08/16/22 Range/Units 23:54 23:54 23:54 RBC 3.32 L (4.30-5.90) m/uL Hgb 10.2 L (13.0-17.5) gm/dL Hct 32.3 L (39.0-53.0) % RDW 18.0 H (11.5-15.5) % Plt Count 135 L (150-450) k/uL Lymphocytes # 0.4 L (1.0-4.8) k/uL PT 15.1 H (9.0-12.0) sec INR 1.5 H (<1.2) Carbon Dioxide 20 L (22-30) mmol/L BUN 63 H (9-20) mg/dL Creatinine 5.01 H (0.66-1.25) mg/dL Glucose 115 H (74-99) mg/dL Calcium 7.8 L (8.4-10.2) mg/dL Alkaline Phosphatase 182 H (38-126) U/L Troponin I (0.000-0.034) ng/mL 08/16/22 Range/Units 23:54 RBC (4.30-5.90) m/uL Hgb (13.0-17.5) gm/dL Hct (39.0-53.0) % RDW (11.5-15.5) % Plt Count (150-450) k/uL Lymphocytes # (1.0-4.8) k/uL PT (9.0-12.0) sec INR (<1.2) Carbon Dioxide (22-30) mmol/L BUN (9-20) mg/dL Creatinine (0.66-1.25) mg/dL Glucose (74-99) mg/dL Calcium (8.4-10.2) mg/dL Alkaline Phosphatase (38-126) U/L Troponin I 0.093 H* (0.000-0.034) ng/mL
[2022-08-17 08:35] VITALS: RESP 16
[2022-08-17] MEDS: HEPARIN SODIUM,PORCINE/PF 5,000 UNIT/0.5 ML SYRINGE SQ SCH ×2 (08:38→16:22)
[2022-08-17] MEDS: SEVELAMER 800 MG TAB PO SCH ×3 (08:38→18:11)
[2022-08-17] MEDS ORDERED: BUMETANIDE 1 MG TAB PO SCH (09:00)
[2022-08-17] MEDS ORDERED: CHOLECALCIFEROL 25 MCG (1000 IU) TABLET PO SCH (09:00)
[2022-08-17] MEDS ORDERED: ISOSORBIDE MONONITRATE ER 30 MG TAB.ER.24H PO SCH (09:00)
[2022-08-17] MEDS ORDERED: ASPIRIN 81 MG PO SCH (09:00)
[2022-08-17] MEDS ORDERED: METOPROLOL SUCCINATE (ER) 25 MG TAB.ER.24H PO SCH (09:00)
--- NOTE | 2022-08-17 12:06 | P.NPCON ---
History of Present Illness - Reason for Consult Consult date: 08/17/22 end stage renal disease - Chief Complaint Fall - History of Present Illness This is a patient known to us with ESRD on dialysis Friday He was admitted after a fall. He was in the bathroom and was trying to grab onto something and fell. Did not lose consciousness there was no associated dizziness prior to the fall. Supposedly she he has had several falls recently. No nausea vomiting chest pain fever chills shortness of breath. 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 History of renal transplant 1992. Severe aortic stenosis. Currently on exam he is awake and alert somewhat slow to respond but appropriate and was able to recognize his family that was in the room. He has generalized weakness. No obvious trauma noted except for mild bruising on the left lateral i.e. 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%, history of renal chest and 2 in 1992 from a donor and in 1995 from a living donor, history of neck fracture, history of Covid 19 infection, severe aortic stenosis, anemia of chronic disease History of Any Multi-Drug Resistant Organisms: None Reported Past Surgical History: Appendectomy Additional Past Surgical History / Comment(s): Kidney transplant times 07/28/1992 and 1995 and the patient has a fistula in the left upper extremity Past Anesthesia/Blood Transfusion Reactions: No Reported Reaction Past Psychological History: No Psychological Hx Reported Smoking Status: Former smoker Past Alcohol Use History: Rare Additional Past Alcohol Use History / Comment(s): patient can not remember when he stopped smoking Past Drug Use History: None Reported - Past Family History Mother Family Medical History: Cancer Additional Family Medical History / Comment(s): pancreatic cancer Father Family Medical History: CVA/TIA Additional Family Medical History / Comment(s): father of stroke , mother p ancreatic cancer Medications and Allergies Home Medications Medication Instructions Recorded Confirmed Type Atorvastatin [Lipitor] 10 mg PO HS 01/29/22 08/16/22 History Cholecalciferol [Vitamin D3 (25 50 mcg PO DAILY 01/29/22 08/16/22 History Mcg = 1000 Iu)] [place]-3/Dha/Epa/Fish Oil [Fish Oil 1 cap PO DAILY 01/29/22 08/16/22 History 1,000 mg Softgel] Isosorbide Mononitrate ER [Imdur] 30 mg PO DAILY 01/30/22 08/16/22 History Aspirin 81 mg PO DAILY 05/01/22 08/16/22 History rOPINIRole HCL [Requip] 2 mg PO BID 05/01/22 08/16/22 History oxyCODONE-APAP 5-325MG [Percocet 1 tab PO TID PRN #9 tab 05/08/22 08/16/22 Rx 5-325 mg] Folic Acid/Vit B Complex and C 0.8 mg PO TUTHSA 06/03/22 08/16/22 History [Emy-Catalino Tablet] Sevelamer Carbonate 1,600 mg PO PC-TID 06/03/22 08/16/22 History Magnesium Oxide [Mag-Ox] 400 mg PO DAILY #30 tab 06/05/22 08/16/22 Rx Metoprolol Succinate (ER) [Toprol 25 mg PO DAILY #30 tab 06/26/22 08/16/22 Rx XL] Bumetanide [BUMEX] 4 mg PO DAILY 08/16/22 08/16/22 History Calcium Acetate [Phoslo] 667 mg PO PC-TID 08/16/22 08/16/22 History Gabapentin [Neurontin] 100 mg PO HS 08/16/22 08/16/22 History Lidocaine-Prilocaine Cream [Emla 1 applic TOPICAL TUTHSA PRN 08/16/22 08/16/22 History Cream 2.5%/2.5%] Allergies Allergy/AdvReac Type Severity Reaction Status Date / Time enalaprilat [From Vasotec] Allergy Swelling Verified 08/16/22 21:29 lisinopril Allergy Swelling Verified 08/16/22 21:29 Physical Exam Vitals: Vital Signs Temp Pulse Pulse Resp BP BP Pulse Ox 08/17/22 08:13 97.5 F L 75 16 121/83 99 08/17/22 08:00 16 08/17/22 01:08 97.6 F 77 18 129/89 100 08/17/22 00:30 75 18 128/76 97 08/17/22 00:09 20 97 08/16/22 21:00 98 F 81 16 130/91 98 Intake and Output 08/16/22 08/17/22 08/17/22 22:59 06:59 14:59 Other: # Voids 0 # Bowel Movements 0 Weight 68.492 kg 68.492 kg Awake alert oriented but generalized weakness and slow to talk HEENT exam no JVP noted neck is supple no facial asymmetry small bruise on the lateral side of his left eye. There is some tenderness there. Computed tomography scan showed some posterior skull soft tissue swelling at the skull base otherwise was normal.. Heart sounds are unremarkable although patient is known with severe aortic stenosis, although the echocardiogram does not mention anything dated 03/12/2022. Lungs are clear to auscultation good air entry bilaterally Abdomen soft nontender Extremity exam was no edema Neurologically awake alert oriented but profoundly weakness and no focal motor deficit but is supple no facial asymmetry and moves all his lines Results - Lab Results Most recent lab results Calcium 7.8 mg/dL (8.4-10.2) L 08/16/22 23:54 Magnesium 1.8 mg/dL (1.6-2.3) 08/16/22 23:54 08/16/22 23:54 08/16/22 23:54 Assessment and Plan Assessment: Impression 1. ESRD on dialysis Friday with a fistula in his left upper arm. History of 2 transplants details not available. 2. History of fall and has been falling recently. Causes generalized weakness and debility. Computed tomography scan shows soft tissue swelling at the base of the skull. 3. 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 Echocardiogram dated 06/03/2022 shows aortic stenosis. Additionally has moderate mitral and moderate to severe tricuspid regurg. Recommendations 1. Dialysis today with 2 L of. 2. Patient may need some physical therapy. Defer to the primary physician
[2022-08-17 12:23] VITALS: BP 108/72; PULSE 72; TEMP 97.4
--- NOTE | 2022-08-17 18:24 | P.DS ---
Providers Date of admission: 08/17/22 00:06 Expected date of discharge: 08/17/22 Attending physician: Zoë Keane MD Consults: 08/17/22 00:06 Consult Physician Routine Consulting Provider: Adam Villatoro Consult Reason/Comments: ESRD on HD Do you want consulting provider notified?: Yes, Notify in am Primary care physician: Fransisco Pereira Hospital Course: Discharge Diagnosis: Recurrent falls at home ESRD status post renal transplant 2 currently on hemodialysis Tuesdays, , and Saturdays. Chronic systolic heart failure with previously known EF of 20% Hypertension Hyperlipidemia Coronary artery disease with chronic elevated troponin Hospital Course: Patient is a very pleasant 76-year-old male with a past medical history of coronary artery disease, chronic systolic heart failure with previously known EF of 20%, hypertension, hyperlipidemia, ESRD status post renal transplant 2 currently on hemodialysis Tuesdays, , and Saturdays. Patient presented to the emergency department overnight with a chief complaint of fall and hitting the side of his head. He went to the emergency department for evaluation, he did not lose consciousness or experience any dizziness, lightheadedness, chest pain, shortness of breath, or have any numbness/tingling/weakness. Patient reports multiple falls over the past few months and previous stay at [facility] for rehab secondary to falls. Patient states he just loses his balance and falls. He underwent full evaluation in the emergency department. Labs completed and reviewed. CBC showing normocytic anemia with hemoglobin of 10.2, which is at baseline hemoglobin level. BMP consistent with ESRD with BUN 63, creatinine 5.01, and GFR of 10 patient was due for dialysis today. Alkaline phosphatase 182 and is also chronically elevated. Troponin elevated at 0.093 which is below normal chronic baseline troponin elevation and patient asymptomatic to any cardiac complaints or concerns. Patient was admitted under our services for needed dialysis as well as evaluation by physical therapy and possible placement. Patient was evaluated and received full dialysis treatment session and cleared by nephrology for outpatient follow-up as scheduled Tuesdays//Saturdays for continued hemodialysis. Patient and family were talked to by case work aide/social media content manager for possible placement in ECF for rehab. Patient and family reportedly declining long term facility placement at this time feeling home care with physical therapy would be better option. Medically, patient is stable at this time and will be discharged home with home care and physical therapy per his request. Physical exam: Patient seen and examined at bedside. Vital signs reviewed and stable. General: Nontoxic, no distress and appears stated age. Derm: Skin warm and dry, normal coloration for ethnicity. Head: Atraumatic, normocephalic and symmetric. Eyes: EOMs intact, no lid lag, and anicteric sclera Mouth: no lip lesions, mucus membranes moist Cardiovascular: regular rate and rhythm with normal S1S2, systolic murmur, positive posterior tibial pulses bilaterally, and cap refill < 2 seconds. AV fistula left upper extremity, thrill and bruit present Lungs: Respirations even, regular, and unlabored on room air. Lungs CTA bilaterally, no rhonchi, no rales, no wheezing, and no accessory muscle usage. Abdominal: soft, nontender to palpation, no guarding, no appreciable organomegaly Ext: ROM intact. No gross muscle atrophy, no edema, no contractures Neuro: Speech clear, face symmetrical and CN II-XII grossly intact with no noted focal neuro deficits Psych: Alert and oriented to person, place, time, and situation. Appropriate and pleasant affect. A total of 29 minutes of time were spent preparing this complex discharge summary. Pt was discharged after completion of his dialysis on 08/17/22 at 6:12 PM. Patient was seen independently by Nurse Practitioner. This document was prepared using [employer] dictation software. Please allow for errors in tunnel elastic operator lockstitch while rare they do occur. I reviewed the documentation as provided by the POONAM above, who is the original author of this note. I agree with the documented assessment and plan, with the following changes: none Patient Condition at Discharge: Stable Plan - Discharge Summary New Discharge Prescriptions: Continue Atorvastatin [Lipitor] 10 mg PO HS Cholecalciferol [Vitamin D3 (25 Mcg = 1000 Iu)] 50 mcg PO DAILY Aspirin 81 mg PO DAILY Folic Acid/Vit B Complex and C [Emy-Catalino Tablet] 0.8 mg PO TUTHSA Sevelamer Carbonate 1,600 mg PO PC-TID Magnesium Oxide [Mag-Ox] 400 mg PO DAILY #30 tab Lidocaine-Prilocaine Cream [Emla Cream 2.5%/2.5%] 1 applic TOPICAL TUTHSA PRN PRN Reason: ACCESS SITE BEFORE DIALYSIS Bumetanide [BUMEX] 4 mg PO DAILY [place]-3/Dha/Epa/Fish Oil [Fish Oil 1,000 mg Softgel] 1 cap PO DAILY Isosorbide Mononitrate ER [Imdur] 30 mg PO DAILY rOPINIRole HCL [Requip] 2 mg PO BID oxyCODONE-APAP 5-325MG [Percocet 5-325 mg] 1 tab PO TID PRN #9 tab PRN Reason: Pain Metoprolol Succinate (ER) [Toprol XL] 25 mg PO DAILY #30 tab Calcium Acetate [PhosLo] 667 mg PO PC-TID Gabapentin [Neurontin] 100 mg PO HS Discharge Medication List Atorvastatin [Lipitor] 10 mg PO HS 01/29/22 [History] Cholecalciferol [Vitamin D3 (25 Mcg = 1000 Iu)] 50 mcg PO DAILY 01/29/22 [History] [place]-3/Dha/Epa/Fish Oil [Fish Oil 1,000 mg Softgel] 1 cap PO DAILY 01/29/22 [History] Isosorbide Mononitrate ER [Imdur] 30 mg PO DAILY 01/30/22 [History] Aspirin 81 mg PO DAILY 05/01/22 [History] rOPINIRole HCL [Requip] 2 mg PO BID 05/01/22 [History] oxyCODONE-APAP 5-325MG [Percocet 5-325 mg] 1 tab PO TID PRN #9 tab 05/08/22 [Rx] Folic Acid/Vit B Complex and C [Emy-Catalino Tablet] 0.8 mg PO TUTHSA 06/03/22 [History] Sevelamer Carbonate 1,600 mg PO PC-TID 06/03/22 [History] Magnesium Oxide [Mag-Ox] 400 mg PO DAILY #30 tab 06/05/22 [Rx] Metoprolol Succinate (ER) [Toprol XL] 25 mg PO DAILY #30 tab 06/26/22 [Rx] Bumetanide [BUMEX] 4 mg PO DAILY 08/16/22 [History] Calcium Acetate [PhosLo] 667 mg PO PC-TID 08/16/22 [History] Gabapentin [Neurontin] 100 mg PO HS 08/16/22 [History] Lidocaine-Prilocaine Cream [Emla Cream 2.5%/2.5%] 1 applic TOPICAL TUTHSA PRN 08/16/22 [History] Follow up Appointment(s)/Referral(s): Fransisco Pereira MD [Primary Care Provider] - 1-2 days [facility], [NON-STAFF] - As Needed Patient Instructions/Handouts: Fall Prevention for Older Adults (DC) Activity/Diet/Wound Care/Special Instructions: Activity: Walk with walker at all times, recommend supervision at all times with ambulation. Diet: Continue renal diet. Special Instructions: Take all of your medications as directed and remember to keep all of your doctor's appointments and follow-up as needed. You are being discharged home with [facility] for physical therapy, recommended evaluation for possible long term facility placement for rehab and declining at this time but in agreement to discharge home with physical therapy and home care. Continue to follow up outpatient with manager respiratory in for scheduled hemodialysis Tuesdays, , and Saturdays. Thank you for allowing us to participate in your care, it was truly a pleasure having you for our patient!!! Discharge Disposition: HOME WITH HOME HEALTH SERVICES
[2022-08-17] MEDS ORDERED: GABAPENTIN 100 MG CAP PO SCH (21:00)
[2022-08-17] MEDS ORDERED: ATORVASTATIN 10 MG TAB PO SCH (21:00)
== END 2022-08-17 19:21 | disposition home health service (06) ==
LOC: EC 20:55 → 6NMEDSUR 08-17 00:06 → 5NMEDONC 08-17 07:30
PROVIDERS: ADMIT Internal Medicine; ATTEND Internal Medicine
DX: W19.XXXA Unspecified fall, initial encounter (principal); R29.6 Repeated falls; I25.10 Atherosclerotic heart disease of native coronary artery without angina pectoris; I13.2 Hypertensive heart and chronic kidney disease with heart failure and with stage 5 chronic kidney disease, or end stage renal disease; N18.6 End stage renal disease; I50.22 Chronic systolic (congestive) heart failure; D63.1 Anemia in chronic kidney disease; Z99.2 Dependence on renal dialysis; E78.5 Hyperlipidemia, unspecified; R77.8 Other specified abnormalities of plasma proteins; Z94.0 Kidney transplant status; Z79.891 Long term (current) use of opiate analgesic; Z79.899 Other long term (current) drug therapy
CPT/HCPCS: 90935; 96374; 99285; 36415; 93005; 83880; 80053; 83690; 83735; 84484; 85025; 85610; 85730; 73521; 71045; 72125; 70450; G0378 ×2; J1644

== ENCOUNTER → 2023-01-20 | Outpatient (CLI) | payer MEDICARE, OTHER ==
--- NOTE | 2023-01-21 13:56 | CT ---
EXAMINATION TYPE: CT brain wo con DATE OF EXAM: 01/20/2023 COMPARISON: 08/16/2022 HISTORY: headaches down right side of neck CT DLP: [address] of the brain was performed. The ventricles, basal cisterns and sulci overlying the cerebral convexities demonstrate mild enlargem ent. There is no evidence for intracranial hemorrhage or sulcal effacement. There is decreased attenuation about the periventricular white matter and deep white matter of both c erebral hemispheres, compatible with chronic small vessel ischemia. Differential diagnosis does inclu de demyelination. No mass effects are seen.No midline shift. Osseous calvarium is intact. If symptoms persist consider MRI. IMPRESSION: 1. Age related atrophic and chronic small vessel ischemic change without acute intracranial process s een at this time.
== END | disposition home or self-care (01) ==
LOC: RADCTMAIN 17:31
PROVIDERS: ATTEND Family Medicine
DX: I67.82 Cerebral ischemia (principal); G31.9 Degenerative disease of nervous system, unspecified
CPT/HCPCS: 70450

== ENCOUNTER 2023-02-12 10:51 | Inpatient (IN) | payer MEDICARE, OTHER ==
--- NOTE | 2023-02-12 12:18 | ED ---
Skin/Abscess/FB HPI - General Chief complaint: Skin/Abscess/Foreign Body Stated complaint: infection in leg Time Seen by Provider: 02/12/23 11:32 Source: patient, family, RN notes reviewed Mode of arrival: wheelchair Limitations: physical limitation - History of Present Illness Initial comments: 77-year-old male presents emergency Department with chief complaint of leg infection. Patient has been under current treatment since end of November for left toe infection, left calf infection this was improving but now sniffily worse over the last week. Patient has been on Keflex. Patient has now developed infection to the right foot. Patient has known renal, arterial disease. Patient denies any fevers or chills he is having worsening symptoms patient was sent in by visiting nurse. - Related Data Home Medications Medication Instructions Recorded Confirmed Atorvastatin [Lipitor] 10 mg PO HS 01/29/22 08/16/22 Cholecalciferol [Vitamin D3 (25 50 mcg PO DAILY 01/29/22 08/16/22 Mcg = 1000 Iu)] [place]/Dha/Epa/Fish Oil [Fish Oil 1 cap PO DAILY 01/29/22 08/16/22 1,000 mg Softgel] Isosorbide Mononitrate ER [Imdur] 30 mg PO DAILY 01/30/22 08/16/22 Aspirin 81 mg PO DAILY 05/01/22 08/16/22 rOPINIRole HCL [Requip] 2 mg PO BID 05/01/22 08/16/22 Folic Acid/Vit B Complex and C 0.8 mg PO TUTHSA 06/03/22 08/16/22 [Emy-Catalino Tablet] Sevelamer Carbonate 1,600 mg PO PC-TID 06/03/22 08/16/22 Bumetanide [BUMEX] 4 mg PO DAILY 08/16/22 08/16/22 Calcium Acetate [PhosLo] 667 mg PO PC-TID 08/16/22 08/16/22 Gabapentin [Neurontin] 100 mg PO HS 08/16/22 08/16/22 Lidocaine-Prilocaine Cream [Emla 1 applic TOPICAL TUTHSA PRN 08/16/22 08/16/22 Cream 2.5%/2.5%] Previous Rx's Medication Instructions Recorded oxyCODONE-APAP 5-325MG [Percocet 1 tab PO TID PRN #9 tab 05/08/22 5-325 mg] Magnesium Oxide [Mag-Ox] 400 mg PO DAILY #30 tab 06/05/22 Metoprolol Succinate (ER) [Toprol 25 mg PO DAILY #30 tab 06/26/22 XL] Allergies Allergy/AdvReac Type Severity Reaction Status Date / Time enalaprilat [From Vasotec] Allergy Swelling Verified 02/12/23 11:23 lisinopril Allergy Swelling Verified 02/12/23 11:23 Review of Systems ROS Statement: Those systems with pertinent positive or pertinent negative responses have been documented in the HPI. ROS Other: All systems not noted in ROS Statement are negative. 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%, history of renal chest and 2 in 1992 from a donor and in 1995 from a living donor, history of neck fracture, history of Covid 19 infection, severe aortic stenosis, anemia of chronic disease.neuropathy History of Any Multi-Drug Resistant Organisms: None Reported Past Surgical History: Appendectomy Additional Past Surgical History / Comment(s): Kidney transplant times and 1995 and the patient has a fistula in the left upper extremity Past Anesthesia/Blood Transfusion Reactions: No Reported Reaction Past Psychological History: No Psychological Hx Reported Smoking Status: Former smoker Past Alcohol Use History: Rare Past Drug Use History: None Reported - Past Family History Mother Family Medical History: Cancer Additional Family Medical History / Comment(s): pancreatic cancer Father Family Medical History: CVA/TIA Additional Family Medical History / Comment(s): father of stroke , mother pancreatic cancer General Exam Limitations: physical limitation General appearance: alert, in no apparent distress Head exam: Present: atraumatic, normocephalic, normal inspection Eye exam: Present: normal appearance, PERRL, EOMI. Absent: scleral icterus, conjunctival injection, periorbital swelling ENT exam: Present: normal exam, mucous membranes moist Neck exam: Present: normal inspection, full ROM. Absent: tenderness, meningismus, lymphadenopathy Respiratory exam: Present: normal lung sounds bilaterally. Absent: respiratory distress, wheezes, rales, rhonchi, stridor Cardiovascular Exam: Present: regular rate, normal rhythm, normal heart sounds. Absent: systolic murmur, diastolic murmur, rubs, gallop, clicks Extremities exam: Present: other (Right calf large ulceration, healing wound noted to the left toe, there is erythema of the second digit of the right foot and proximal foot) Course Vital Signs 02/12/23 11:17 Temperature 98.0 F Pulse Rate 59 L Respiratory 20 Rate Blood Pressure 97/52 O2 Sat by Pulse 98 Oximetry Medical Decision Making - Medical Decision Making Was pt. sent in by a medical professional or institution ([facility], [employer]ING [employer]ESSIONAL, urgent care, hospital, or [facility]...) When possible be specific @ -No Did you speak to anyone other than the patient for history (EMS, parent, family, police, friend...)? What history was obtained from this source @ -No Did you review nursing and triage notes (agree or disagree)? Why? @ -I reviewed and agree with nursing and triage notes Were old charts reviewed (outside hosp., previous admission, EMS record, old EKG, old radiological studies, urgent care reports/EKG's, [facility] records)? Report findings @ -No old charts were reviewed Differential Diagnosis (chest pain, altered mental status, abdominal pain women, abdominal pain men, vaginal bleeding, weakness, fever, dyspnea, syncope, headache, dizziness, GI bleed, back pain, seizure, CVA, palpatations, mental health, musculoskeletal)? @ -Cellulitis, peripheral artery disease, osteomyelitis EKG interpreted by me (3pts min.). @ -None X-rays interpreted by me (1pt min.). @ -X-ray left tib-fib no acute abnormality right foot concerning for possible osteomyelitis CT interpreted by me (1pt min.). @ -None done U/S interpreted by me (1pt. min.). @ -None done What testing was considered but not performed or refused? (CT, X-rays, U/S, labs)? Why? @ -None What meds were considered but not given or refused? Why? @ -None Did you discuss the management of the patient with other professionals (professionals i.e. [facility], FLOOR TILING PROFESSIONAL, lab, RT, psych nurse, social media specialist, medical billing coordinator, teacher, hospital chief financial officer, disease case manager)? Give summary @ -No Was smoking cessation discussed for >3mins.? @ -No Was critical care preformed (if so, how long)? @ -No Were there social determinants of health that impacted care today? How? (Homelessness, low income, unemployed, alcoholism, drug addiction, tra nsportation, low edu. Level, literacy, decrease access to med. care, penitentiary, rehab)? @ -No Was there de-escalation of care discussed even if they declined (Discuss DNR or withdrawal of care, Hospice)? DNR status @ -No What co-morbidities impacted this encounter? (DM, HTN, Smoking, COPD, CAD, Cancer, CVA, ARF, Chemo, Hep., AIDS, mental health diagnosis, sleep apnea, morbid obesity)? @ -Renal disease, peripheral artery disease Was patient admitted / discharged? Hospital course, mention meds given and route, prescriptions, significant lab abnormalities, going to OR and other pertinent info. @ -Admitted patient's been having worsening symptoms currently on antibiotics is failed outpatient treatment. X-ray shows possibility of osteomyelitis required bone scan. Patient will be admitted for further workup and evaluation. Undiagnosed new problem with uncertain prognosis? @ -No Drug Therapy requiring intensive monitoring for toxicity (Heparin, Nitro, Insulin, Cardizem)? @ -No Were any procedures done? @ -No Diagnosis/symptom? @ -Peripheral artery disease, cellulitis, leg ulcerations Acute, or Chronic, or Acute on Chronic? @ -Acute Uncomplicated (without systemic symptoms) or Complicated (systemic symptoms)? @ -Complicated Side effects of treatment? @ -No Exacerbation, Progression, or Severe Exacerbation? @ -No Poses a threat to life or bodily function? How? (Chest pain, [place], [place], pneumonia, PE, COPD, DKA, ARF, appy, cholecystitis, CVA, Diverticulitis, Homicidal, Suicidal, threat to staff... and all critical care pts) @ -No - Lab Data Result diagrams: 02/12/23 12:26 02/12/23 12:26 Lab Results 02/12/23 02/12/23 02/12/23 Range/Units 12:26 12:26 12:26 WBC 6.1 (3.8-10.6) k/uL RBC 2.82 L (4.30-5.90) m/uL Hgb 10.2 L (13.0-17.5) gm/dL Hct 31.3 L (39.0-53.0) % MCV 111.1 H (80.0-100.0) fL MCH 36.2 H (25.0-35.0) pg MCHC 32.6 (31.0-37.0) g/dL RDW 16.3 H (11.5-15.5) % Plt Count 100 L (150-450) k/uL MPV 11.0 Hypochromasia Slight Anisocytosis Slight Macrocytosis Marked A Sodium 138 (137-145) mmol/L Potassium 4.5 (3.5-5.1) mmol/L Chloride 96 L (98-107) mmol/L Carbon Dioxide 31 H (22-30) mmol/L Anion Gap 11 mmol/L BUN 45 H (9-20) mg/dL Creatinine 4.71 H (0.66-1.25) mg/dL Est GFR (CKD-EPI)AfAm 13 (>60 ml/min/1.73 sqM) Est GFR (CKD-EPI)NonAf 11 (>60 ml/min/1.73 sqM) Glucose 96 (74-99) mg/dL Plasma Lactic Acid Ryan 1.5 (0.7-2.0) mmol/L Calcium 8.4 (8.4-10.2) mg/dL Total Bilirubin 1.0 (0.2-1.3) mg/dL AST 42 (17-59) U/L ALT 28 (4-49) U/L Alkaline Phosphatase 155 H (38-126) U/L C-Reactive Protein 2.1 H (<1.0) mg/dL Total Protein 7.3 (6.3-8.2) g/dL Albumin 3.8 (3.5-5.0) g/dL Disposition Clinical Impression: Peripheral vascular disease, unspecified, Cellulitis, Leg ulcer, left Disposition: ADMITTED IP TO THIS [facility] Condition: Poor Referrals: Fransisco Pereira MD [Primary Care Provider] - 1-2 days Time of Disposition: 14:03
[2023-02-12 12:41] LABS: Anisocytosis Slight; Basophils % (A) 1 %; Eosinophils # (A) 0.1 k/uL (0-0.7); Eosinophils % (A) 2 %; HCT 31.3 % (39.0-53.0); HGB 10.2 gm/dL (13.0-17.5); Hypochromasia Slight; Lymphocytes # (A) 0.5 k/uL (1.0-4.8); Lymphocytes % (A) 9 %; MCH 36.2 pg (25.0-35.0); MCHC 32.6 g/dL (31.0-37.0); MCV 111.1 fL (80.0-100.0); Macrocytosis Marked; Monocytes # (A) 0.6 k/uL (0-1.0); Monocytes % (A) 10 %; Neutrophils # (A) 4.7 k/uL (1.3-7.7); Neutrophils % (A) 78 %; Platelet Count 100 k/uL (150-450); RBC 2.82 m/uL (4.30-5.90); RDW 16.3 % (11.5-15.5); WBC 6.1 k/uL (3.8-10.6)
[2023-02-12 12:46] LABS: ALT 28 U/L (4-49); AST 42 U/L (17-59); African American GFR (CKD) 13 (>60 ml/min/1.73 sqM); Albumin 3.8 g/dL (3.5-5.0); Alkaline Phosphatase 155 U/L (38-126); Anion Gap 11 mmol/L; Blood Urea Nitrogen 45 mg/dL (9-20); C Reactive Protein 2.1 mg/dL (<1.0); Calcium 8.4 mg/dL (8.4-10.2); Carbon Dioxide 31 mmol/L (22-30); Chloride 96 mmol/L (98-107); Glucose 96 mg/dL (74-99); Non-African American GFR(CKD) 11 (>60 ml/min/1.73 sqM); Potassium 4.5 mmol/L (3.5-5.1); Sodium 138 mmol/L (137-145); Total Protein 7.3 g/dL (6.3-8.2)
--- NOTE | 2023-02-12 12:50 | XR ---
EXAMINATION TYPE: XR tibia fibula LT DATE OF EXAM: 02/12/2023 COMPARISON: NONE HISTORY: Pain TECHNIQUE: Two views are submitted. FINDINGS: The osseous structures are intact. Vascular calcifications. Diffuse osteopenia. Narrowing of the medi al part of the knee joint. Calcaneal spurs noted. No osseous destruction. IMPRESSION: 1. No acute osseous abnormality.
--- NOTE | 2023-02-12 12:53 | XR ---
EXAMINATION TYPE: XR foot complete RT DATE OF EXAM: 02/12/2023 COMPARISON: NONE HISTORY: Swelling TECHNIQUE: Three views are submitted. FINDINGS: The osseous structures are intact. There is no acute fracture or dislocation. Vascular calcificati ons. Diffuse osteopenia. Mild hypertrophic there is mild loss of mineralization of the most medial cu neiform. Soft tissue edema noted. Calcaneal spurs noted. IMPRESSION: 1. Soft tissue edema. There is loss of mineralization along the medial margin of the most medial cune iform bone. Recommend triple phase bone scan to assess for osteomyelitis.
[2023-02-12] MEDS ORDERED: NALOXONE 0.4 MG/ML 1 ML VIAL IV PRN (14:03)
[2023-02-12] MEDS ORDERED: VANCOMYCIN IV PER PHARMACY 1 EACH MISC MISCELLANE PRN (14:04)
[2023-02-12] MEDS ORDERED: VANCOMYCIN 1,250 MG in SODIUM CHLORIDE 0.9% 250 ML IVPB STA (14:10)
[2023-02-12] MEDS ORDERED: bisacodyL 5 MG TABLET.DR PO PRN (16:09)
[2023-02-12] MEDS ORDERED: MELATONIN 3 MG TABLET PO PRN (16:09)
[2023-02-12] MEDS ORDERED: ONDANSETRON 4 MG/2 ML VIAL IVP PRN (16:09)
[2023-02-12] MEDS ORDERED: HYDROcodone/APAP 5-325MG 1 EACH TAB PO PRN (16:09)
--- NOTE | 2023-02-12 16:31 | P.HPIM ---
History of Present Illness H&P Date: 02/12/23 Patient is a 77-year-old male with end-stage renal disease on hemodialysis, congestive heart failure, cardiomyopathy with ejection fraction 20-25%, hypertension, and dyslipidemia who presented to the emergency room at the direction of his home care nurse for worsening wounds. He has been following with Dr. Crum but his moods have been worsening. On arrival to ER he was slightly hypotensive with a blood pressure 97/52 and a pulse of 59. Laboratory analysis included a CBC remarkable for hemoglobin 10.2 and platelets of 100 over 4 are at patient's baseline and a BNP remarkable for chloride 96, And 31, BUN 45, creatinine 4.71. Right foot x-ray showed soft tissue edema with possible osteomyelitis recommended triple phase bone scan, left tib-fib x-ray shows no acute osseous abnormalities. In the ER he was started on vancomycin. Arrangements were made for admission for possible osteomyelitis. Patient seen and examined at bedside. He reports tat he has been following at the wound care center on Friday for a left calf wound.e has been on creams and then an oral antibiotic was prescribed by his primary care. Today when the [facility] care urskoffi came out she was cncerned about he lack of progress on the wound. He has been feeling tired with decreased appetite. He denies any fevers. His shortness of breath has been increasing. He states that over the past 2 weeks he has been having increasing numbness in his legs, feeling more tired when walking like his leg are going to give out, but denies pain when walking. He does report that his feet have also been getting colder. He reports a product cough for the last month. Vital signs reviewed General: nontoxic, no distress, appears at stated age Derm: warm, dry - unable to dopppler DP pulse b/l, legs are dusky at b/l toes, there is a 1/2 dollar sized necrotic ulcer on the medical left calf without desquamation, drainage or erthhema, there is a small area of erthema at the first metatarsal head on the right. Eyes: EOMI, no lid lag, anicteric sclera, pupils equal round reactive to light ENT: Nose and ears atraumatic, no thrush, no pharyngeal erythema Cardiovascular: S1S2 reg, no murmur, positive posterior tibial pulse bilateral, no edema, capillary refill less than 2 seconds Lungs: clear to auscultation bilateral, no rhonchi, no rales, no wheeze, no accessory muscle use Abdominal: soft, nontender to palpation, no guarding, no appreciable organomegaly, normal bowel sounds Ext: + gross muscle atrophy,no contractures Neuro: CN II-XII grossly intact, no focal neurodeficits Psych: Alert, oriented, appropriate affect Assessment/Plan: Chronic right foot wound, concerns of osteomyelitis Chronic left calf ulcer Probable severe PAD - check ENZO - Consult ID and vascular - continue with vanco, monitoring cr and trough for toxicity - add unasyn IVPB - check blood cultures - check MRI of foot without contrast - ASA 81 mg daily ESRD on HD //FRI - consult nephrology CHronic systolic CHF, EF 20% HTN HLD Severe aortic stenosis - no REINIER/ARB with ESRD - resume bumex, metoprolol 25 mg daily - ASA 81 mg daily, lipitor 10 mg daily, Imdur 30 mg daily Imaging: per HPI Data Review: per HPI The patient is admitted with an anticipated greater than 2 midnight stay for evaluation of chornic foot wound, probable osteo Surrogate decision-maker: Son CODE STATUS:DNR DVT prophylaxis: Heparin Anticipated discharge date: Pending clinical Course Anticipated discharge place: Pending clinical Course This dictation was prepared using [employer] voice recognition software. Though every attempt is made to correct errors during dictation some may still exist. Past Medical History Past Medical History: Heart Failure, Dialysis, Renal Disease Additional Past Medical History / Comment(s): Dialysis dependent renal failure, CVA, cardiomyopathy with an ejection fraction of 20%, history of renal transplant 2 in 1992 from a donor and in 1995 from a living donor, history of neck fracture, history of Covid 19 infection, severe aortic stenosis, anemia of chronic disease, neuropathy History of Any Multi-Drug Resistant Organisms: None Reported Past Surgical History: Appendectomy Additional Past Surgical History / Comment(s): Kidney transplant X 2 in 1992 and 1995 and the patient has a fistula in the left upper extremity Past Anesthesia/Blood Transfusion Reactions: No Reported Reaction Past Psychological History: No Psychological Hx Reported Smoking Status: Former smoker Past Alcohol Use History: Rare Past Drug Use History: None Reported - Past Family History Mother Family Medical History: Cancer Additional Family Medical History / Comment(s): pancreatic cancer Father Family Medical History: CVA/TIA Additional Family Medical History / Comment(s): father of stroke , mother pancreatic cancer Medications and Allergies Home Medications Medication Instructions Recorded Confirmed Type Atorvastatin [Lipitor] 10 mg PO HS 01/29/22 02/12/23 History Cholecalciferol [Vitamin D3 (25 50 mcg PO DAILY 01/29/22 02/12/23 History Mcg = 1000 Iu)] [place]-3/Dha/Epa/Fish Oil [Fish Oil 1 cap PO DAILY 01/29/22 02/12/23 History 1,000 mg Softgel] Isosorbide Mononitrate ER [Imdur] 30 mg PO DAILY 01/30/22 02/12/23 History Aspirin 81 mg PO DAILY 05/01/22 02/12/23 History rOPINIRole HCL [Requip] 2 mg PO BID 05/01/22 02/12/23 History Folic Acid/Vit B Complex and C 0.8 mg PO DIRECTED 06/03/22 02/12/23 History [Emy-Catalino Tablet] Sevelamer Carbonate 1,600 mg PO PC-TID 06/03/22 02/12/23 History Magnesium Oxide [Mag-Ox] 400 mg PO DAILY #30 tab 06/05/22 02/12/23 Rx Metoprolol Succinate (ER) [Toprol 25 mg PO DAILY #30 tab 06/26/22 02/12/23 Rx XL] Bumetanide [BUMEX] 4 mg PO DAILY 08/16/22 02/12/23 History Calcium Acetate [PhosLo] 667 mg PO PC-TID 08/16/22 02/12/23 History Lidocaine-Prilocaine Cream [Emla 1 applic TOPICAL DAILY PRN 08/16/22 02/12/23 History Cream 2.5%/2.5%] Cephalexin [Keflex] 500 mg PO Q12HR 02/12/23 02/12/23 History Colchicine [Colcrys] 0.6 mg PO BID 02/12/23 02/12/23 History PARoxetine [Paxil] 5 mg PO DAILY 02/12/23 02/12/23 History allopurinoL [Zyloprim] 100 mg PO DAILY 02/12/23 02/12/23 History oxyCODONE-APAP 5-325MG [Percocet 1 - 1.5 tab PO TID PRN 02/12/23 02/12/23 History 5-325 mg] Allergies Allergy/AdvReac Type Severity Reaction Status Date / Time enalaprilat [From Vasotec] Allergy Swelling Verified 02/12/23 14:40 lisinopril Allergy Swelling Verified 02/12/23 14:40 gabapentin AdvReac Hallucinati Verified 02/12/23 14:40 ons/Nightma res Physical Exam Osteopathic Statement: *. No significant issues noted on an osteopathic structural exam other than those noted in the History and Physical/Consult. Vitals: Vital Signs Temp Pulse Resp BP Pulse Ox 02/12/23 11:17 98.0 F 59 L 20 97/52 98 Intake and Output 02/12/23 02/12/23 02/12/23 06:59 14:59 22:59 Other: Weight 63.503 kg Results CBC & Chem 7: 02/12/23 12:26 02/12/23 12:26 Labs: Abnormal Lab Results - Last 24 Hours (Table) 02/12/23 02/12/23 Range/Units 12:26 12:26 RBC 2.82 L (4.30-5.90) m/uL Hgb 10.2 L (13.0-17.5) gm/dL Hct 31.3 L (39.0-53.0) % MCV 111.1 H (80.0-100.0) fL MCH 36.2 H (25.0-35.0) pg RDW 16.3 H (11.5-15.5) % Plt Count 100 L (150-450) k/uL Lymphocytes # 0.5 L (1.0-4.8) k/uL Macrocytosis Marked A Chloride 96 L (98-107) mmol/L Carbon Dioxide 31 H (22-30) mmol/L BUN 45 H (9-20) mg/dL Creatinine 4.71 H (0.66-1.25) mg/dL Alkaline Phosphatase 155 H (38-126) U/L C-Reactive Protein 2.1 H (<1.0) mg/dL
[2023-02-12] MEDS ORDERED: AMPICILLIN-SULBACTAM 3 GM in SODIUM CHLORIDE 0.9% 100 ML IVPB SCH (18:00)
--- NOTE | 2023-02-12 18:05 | XR ---
EXAM: XR Chest, 2 Views CLINICAL HISTORY: ITS.REASON XR Reason: cough TECHNIQUE: Frontal and lateral views of the chest. COMPARISON: None FINDINGS: Hardware: None. Lungs/pleura: Small bilateral pleural effusions. Prominent lung markings may represent pulmonary vasculature congestion/edema. Elevation of the right hemidiaphragm. Heart/mediastinum: Enlargement of the cardiac silhouette. Atherosclerotic calcifications in the aorta. Soft tissues: Unremarkable. Bones: No acute fracture. Degenerative changes of the visualized right acromio clavicular joint and spine. Upper abdomen: Normal. IMPRESSION: Small bilateral pleural effusions. Prominent lung markings may represent pulmonary vasculature congestion/edema.
--- NOTE | 2023-02-12 22:25 | P.CONS ---
History of Present Illness - Reason for Consult Consult date: 02/12/23 - History of Present Illness Patient is a 77-year-old male with a past medical history significant for end-stage renal disease in this patient who is status post renal transplant x2 history of COVID-19 infection aortic stenosis presenting to the ER infection to the right foot area apparently the patient did have a history of infection to the left second toe tip that has been treated by the carton forming machine adjuster in the out patient setting) did have some debridement and has been treated with a course of oral antibiotic patient not developing swelling redness on dorsal aspect of the right foot over the last few days patient denies any history of any trauma has been complaining of mostly pain swelling and redness on the dorsal aspect of the right foot with some erythema but no open wound or any drainage patient denies any fever and chills and no fever has been recorded on presentation to the hospital patient did have a normal white count did have elevated BUN/creatinine CRP was 2.1 liver enzymes are normal influenza RSV and COVID testing was negative patient did have a x-ray of the foot soft tissue edema loss of mineralization along the medial margin of the cuneiform bone concerning for osteomyelitis that has prompted this infectious disease consultation patient empirically started on vancomycin 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%, history of renal chest and 2 in 1992 from a donor and in 1995 from a living donor, history of neck fracture, history of Covid 19 infection, severe aortic stenosis, anemia of chronic disease.neuropathy History of Any Multi-Drug Resistant Organisms: None Reported Past Surgical History: Appendectomy Additional Past Surgical History / Comment(s): Kidney transplant times 07/28/1992 and 1995 and the patient has a fistula in the left upper extremity Past Anesthesia/Blood Transfusion Reactions: No Reported Reaction Past Psychological History: No Psychological Hx Reported Smoking Status: Former smoker Past Alcohol Use History: Rare Past Drug Use History: None Reported - Past Family History Mother Family Medical History: Cancer Additional Family Medical History / Comment(s): pancreatic cancer Father Family Medical History: CVA/TIA Additional Family Medical History / Comment(s): father of stroke , mother pancreatic cancer Medications and Allergies Home Medications Medication Instructions Recorded Confirmed Type Atorvastatin [Lipitor] 10 mg PO HS 01/29/22 02/12/23 History Cholecalciferol [Vitamin D3 (25 50 mcg PO DAILY 01/29/22 02/12/23 History Mcg = 1000 Iu)] [place]-3/Dha/Epa/Fish Oil [Fish Oil 1 cap PO DAILY 01/29/22 02/12/23 History 1,000 mg Softgel] Isosorbide Mononitrate ER [Imdur] 30 mg PO DAILY 01/30/22 02/12/23 History Aspirin 81 mg PO DAILY 05/01/22 02/12/23 History rOPINIRole HCL [Requip] 2 mg PO BID 05/01/22 02/12/23 History Folic Acid/Vit B Complex and C 0.8 mg PO DIRECTED 06/03/22 02/12/23 History [Emy-Catalino Tablet] Sevelamer Carbonate 1,600 mg PO PC-TID 06/03/22 02/12/23 History Magnesium Oxide [Mag-Ox] 400 mg PO DAILY #30 tab 06/05/22 02/12/23 Rx Metoprolol Succinate (ER) [Toprol 25 mg PO DAILY #30 tab 06/26/22 02/12/23 Rx XL] Bumetanide [BUMEX] 4 mg PO DAILY 08/16/22 02/12/23 History Calcium Acetate [PhosLo] 667 mg PO PC-TID 08/16/22 02/12/23 History Lidocaine-Prilocaine Cream [Emla 1 applic TOPICAL DAILY PRN 08/16/22 02/12/23 History Cream 2.5%/2.5%] Cephalexin [Keflex] 500 mg PO Q12HR 02/12/23 02/12/23 History Colchicine [Colcrys] 0.6 mg PO BID 02/12/23 02/12/23 History PARoxetine [Paxil] 5 mg PO DAILY 02/12/23 02/12/23 History allopurinoL [Zyloprim] 100 mg PO DAILY 02/12/23 02/12/23 History oxyCODONE-APAP 5-325MG [Percocet 1 - 1.5 tab PO TID PRN 02/12/23 02/12/23 History 5-325 mg] Allergies Allergy/AdvReac Type Severity Reaction Status Date / Time enalaprilat [From Vasotec] Allergy Swelling Verified 02/12/23 14:40 lisinopril Allergy Swelling Verified 02/12/23 14:40 gabapentin AdvReac Hallucinati Verified 02/12/23 14:40 ons/Nightma res Physical Exam Vitals: Vital Signs Temp Pulse Resp BP Pulse Ox 02/12/23 11:17 98.0 F 59 L 20 97/52 98 Intake and Output 02/12/23 02/12/23 02/12/23 06:59 14:59 22:59 Other: Weight 63.503 kg Results CBC & Chem 7: 02/12/23 12:26 02/12/23 12:26 Labs: Abnormal Lab Results - Last 24 Hours (Table) 02/12/23 02/12/23 Range/Units 12:26 12:26 RBC 2.82 L (4.30-5.90) m/uL Hgb 10.2 L (13.0-17.5) gm/dL Hct 31.3 L (39.0-53.0) % MCV 111.1 H (80.0-100.0) fL MCH 36.2 H (25.0-35.0) pg RDW 16.3 H (11.5-15.5) % Plt Count 100 L (150-450) k/uL Lymphocytes # 0.5 L (1.0-4.8) k/uL Macrocytosis Marked A Chloride 96 L (98-107) mmol/L Carbon Dioxide 31 H (22-30) mmol/L BUN 45 H (9-20) mg/dL Creatinine 4.71 H (0.66-1.25) mg/dL Alkaline Phosphatase 155 H (38-126) U/L C-Reactive Protein 2.1 H (<1.0) mg/dL Assessment and Plan Plan: 1patient presented to hospital with swelling erythema on the dorsal right of the right foot with no ulceration however did have abnormal plain x-ray concerning for possible osteomyelitis which is unlikely but not entirely excluded. 2patient did have a history of infection of the left second toe tip with dried out wound but no significant swelling or redness on the drainage 3-we will repeat a sed rate and also obtain a bone scan to rule out osteomyelitis 4-marked the area of the redness 5-continue with empiric vancomycin We will follow on clinical condition and cultures to further adjust medication if needed Thank you for this consultation we will follow the patient along with you Dictation was produced using [employer] dictation software. please excuse any grammatical, word or spelling errors. Time with Patient: Greater than 30
[2023-02-12] MEDS: CALCIUM ACETATE 667 MG TAB PO SCH (22:31)
[2023-02-12] MEDS: COLCHICINE 0.6 MG EACH PO SCH (22:32)
[2023-02-12] MEDS: SEVELAMER 800 MG TAB PO SCH (22:37)
[2023-02-12] MEDS: ATORVASTATIN 10 MG TAB PO SCH (22:38)
[2023-02-12] MEDS: HEPARIN SODIUM,PORCINE 5,000 UNIT/ML 1 ML VIAL SQ SCH (22:38)
[2023-02-12] MEDS: ALPRAZolam 0.25 MG TAB PO PRN (22:38)
--- NOTE | 2023-02-13 09:32 | US ---
EXAMINATION TYPE: US arterial LE single level DATE OF EXAM: 02/13/2023 8:30 AM CLINICAL INDICATION: Male, 77 years old with history of ENZO only please, PAD; patient had painful ank les and cold feet History of: Smoker: previous Hypertension: y Diabetic: n Hyperlipidemia: y TIA/CVA: TIA's Previous Vascular Surgery: n CAD: n ND: n Vascular Ulcers: n Claudication: n Gangrene: n Doppler Waveforms: Right: Multiphasic Left: Multiphasic Right Brachial Pressure: 125 Left Brachial Pressure: unable to have BP's in this arm Ankle-Brachial Indices: Right: 0.2 Left: 0.2 Toe Brachial Indices: Right: not detected Left: not detected IMPRESSION: Abnormal ENZO indices are suggestive of a critical peripheral vascular occlusive disease bilaterally. Consider dedicated arteriogram.
[2023-02-13] MEDS ORDERED: SODIUM CHLORIDE 0.9% 1,000 ML IV SCH ×5 (09:45)
[2023-02-13] MEDS ORDERED: ALTEPLASE 6 MG in SODIUM CHLORIDE 0.9% 144 ML IV ONE ×4 (10:00)
[2023-02-13] MEDS ORDERED: HEPARIN SOD,PORK IN 0.45% NACL 25,000 UNIT in 0.45% NACL 1 250ML.BAG IV SCH ×2 (10:00)
[2023-02-13 11:22] LABS: HCT 33.6 % (39.6-50.0); HGB 10.6 d/dL (13.0-17.0); MCH 35.1 pg (27.0-32.0); MCHC 31.5 d/dL (32.0-37.0); MCV 111.3 FL (80.0-97.0); Mean Platelet Volume 14.5 FL (9.5-12.2); NRBC Per 100 WBC 0 X 10*3/uL (0.00-0.01); Platelet Count 97 X 10*3/uL (140-440); RBC 3.02 X 10*6/uL (4.40-5.60); RDW 15.9 % (11.5-14.5); WBC 5.82 X 10*3/uL (4.50-10.00)
[2023-02-13 11:26] LABS: BUN/Creat Ratio 9.67 Ratio (12.00-20.00); Blood Urea Nitrogen 49.3 mg/dL (9.0-27.0); Calcium 8.7 mg/dL (8.7-10.3); Carbon Dioxide 25.8 mmol/L (21.6-31.8); Chloride 96 mmol/L (96-109); Glucose 83 mg/dL (70-110); Potassium 5.9 mmol/L (3.5-5.5); Sodium 137 mmol/L (135-145)
--- NOTE | 2023-02-13 11:40 | P.NPCON ---
History of Present Illness - Reason for Consult end stage renal disease - History of Present Illness Reason for consultation: End-stage renal disease History of present illness: Patient is a 77-year-old male seen in renal consultation for end-stage renal disease. He is maintained on hemodialysis on Friday schedule via AV fistula. Patient has history of systolic CHF with ejection fraction of 20-25%. Patient came to the hospital due to wounds in his lower extremities. Patient states he was recently started on oral antibiotic but is not sure of the name. Patient stated his home care nurse advised him to go to the hospital. There is concern for osteomyelitis. Infectious disease is following. He is receiving IV antibiotics. MRI is pending. He denies chest pain or shortness of breath. Oral intake is good. No vomiting or diarrhea. Tolerating dialysis well. Vital signs are stable. General: No acute distress. HEENT: Head exam is unremarkable. LUNGS: No audible rhonchi or wheezes. HEART: Rate and Rhythm are regular. ABDOMEN: Nontender. EXTREMITITES: No edema. No drainage noted. 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%, history of renal chest and 2 in 1992 from a donor and in 1995 from a living donor, history of ne ck fracture, history of Covid 19 infection, severe aortic stenosis, anemia of chronic disease.neuropathy History of Any Multi-Drug Resistant Organisms: None Reported Past Surgical History: Appendectomy Additional Past Surgical History / Comment(s): Kidney transplant times 07/28/1992 and 1995 and the patient has a fistula in the left upper extremity Past Anesthesia/Blood Transfusion Reactions: No Reported Reaction Past Psychological History: No Psychological Hx Reported Smoking Status: Former smoker Past Alcohol Use History: Rare Additional Past Alcohol Use History / Comment(s): patient can not remember when he stopped smoking Past Drug Use History: None Reported - Past Family History Mother Family Medical History: Cancer Additional Family Medical History / Comment(s): pancreatic cancer Father Family Medical History: CVA/TIA Additional Family Medical History / Comment(s): father of stroke , mother pancreatic cancer Medications and Allergies Home Medications Medication Instructions Recorded Confirmed Type Atorvastatin [Lipitor] 10 mg PO HS 01/29/22 02/12/23 History Cholecalciferol [Vitamin D3 (25 50 mcg PO DAILY 01/29/22 02/12/23 History Mcg = 1000 Iu)] [place]-3/Dha/Epa/Fish Oil [Fish Oil 1 cap PO DAILY 01/29/22 02/12/23 History 1,000 mg Softgel] Isosorbide Mononitrate ER [Imdur] 30 mg PO DAILY 01/30/22 02/12/23 History Aspirin 81 mg PO DAILY 05/01/22 02/12/23 History rOPINIRole HCL [Requip] 2 mg PO BID 05/01/22 02/12/23 History Folic Acid/Vit B Complex and C 0.8 mg PO DIRECTED 06/03/22 02/12/23 History [Emy-Catalino Tablet] Sevelamer Carbonate 1,600 mg PO PC-TID 06/03/22 02/12/23 History Magnesium Oxide [Mag-Ox] 400 mg PO DAILY #30 tab 06/05/22 02/12/23 Rx Metoprolol Succinate (ER) [Toprol 25 mg PO DAILY #30 tab 06/26/22 02/12/23 Rx XL] Bumetanide [BUMEX] 4 mg PO DAILY 08/16/22 02/12/23 History Calcium Acetate [PhosLo] 667 mg PO PC-TID 08/16/22 02/12/23 History Lidocaine-Prilocaine Cream [Emla 1 applic TOPICAL DAILY PRN 08/16/22 02/12/23 History Cream 2.5%/2.5%] Cephalexin [Keflex] 500 mg PO Q12HR 02/12/23 02/12/23 History Colchicine [Colcrys] 0.6 mg PO BID 02/12/23 02/12/23 History PARoxetine [Paxil] 5 mg PO DAILY 02/12/23 02/12/23 History allopurinoL [Zyloprim] 100 mg PO DAILY 02/12/23 02/12/23 History oxyCODONE-APAP 5-325MG [Percocet 1 - 1.5 tab PO TID PRN 02/12/23 02/12/23 History 5-325 mg] Allergies Allergy/AdvReac Type Severity Reaction Status Date / Time enalaprilat [From Vasotec] Allergy Swelling Verified 02/12/23 14:40 lisinopril Allergy Swelling Verified 02/12/23 14:40 gabapentin AdvReac Hallucinati Verified 02/12/23 14:40 ons/Nightma res Physical Exam Vitals: Vital Signs Temp Pulse Pulse Resp BP BP Pulse Ox 02/13/23 07:45 98.0 F 64 17 125/73 98 02/13/23 01:52 97.8 F 63 14 116/77 97 02/12/23 20:42 94.7 F L 56 L 14 120/73 99 02/12/23 17:00 98.6 F 68 18 122/71 98 Intake and Output 02/12/23 02/13/23 02/13/23 22:59 06:59 14:59 Other: Voiding Method Toilet # Voids 3 Weight 63.503 kg Results - Lab Results Most recent lab results Calcium 8.7 mg/dL (8.7-10.3) 02/13/23 07:14 02/13/23 07:14 02/13/23 07:14 Assessment and Plan Plan: Assessment: 1. End-stage renal disease maintained on hemodialysis on Friday schedule. 2. Right foot erythema with concern for osteomyelitis. MRI pending. ID following. 3. Chronic kidney disease mineral bone disease maintained on phosphate binders. 4. Hyperkalemia secondary to chronic kidney disease. 5. Chronic systolic CHF ejection fraction of 20-25% with moderate mitral and moderate to severe tricuspid regurgitation. Plan: Currently seen while undergoing hemodialysis. Goal UF 2-1/2-3 L. Next treatment on Friday. Thank you for the consultation. I will continue to follow the patient with you during his hospital stay.
[2023-02-13] MEDS ORDERED: VANCOMYCIN 1,250 MG in SODIUM CHLORIDE 0.9% 250 ML IVPB ONE (12:00)
[2023-02-13 12:03] LABS: Anisocytosis Slight; Basophils % (A) 0 %; Eosinophils # (A) 0.1 k/uL (0-0.7); Eosinophils % (A) 3 %; HCT 32.5 % (39.0-53.0); HGB 10.3 gm/dL (13.0-17.5); Hypochromasia Slight; Lymphocytes # (A) 0.4 k/uL (1.0-4.8); Lymphocytes % (A) 9 %; MCH 35.6 pg (25.0-35.0); MCHC 31.6 g/dL (31.0-37.0); MCV 112.6 fL (80.0-100.0); Mean Platelet Volume 11.6; Monocytes # (A) 0.3 k/uL (0-1.0); Monocytes % (A) 7 %; Neutrophils # (A) 3.5 k/uL (1.3-7.7); Neutrophils % (A) 78 %; RBC 2.88 m/uL (4.30-5.90); RDW 16.5 % (11.5-15.5); WBC 4.5 k/uL (3.8-10.6)
[2023-02-13 12:11] LABS: Platelet Count 90 k/uL (150-450)
[2023-02-13 12:12] LABS: Macrocytosis Marked
--- NOTE | 2023-02-13 13:08 | P.GSCN ---
History of Present Illness Consult date: 02/13/23 Reason for Consult: Peripheral arterial disease Requesting physician: Enriqueta Hickman History of present illness: This is 77-year-old male with a history of diabetes mellitus, chronic wounds, end-stage renal disease status post 2 transplants on dialysis, and heart failure who presented to the emergency department for concerns of leg infection. Patient has been under treatment for a leg and ulcer since the end of November. He believed that it was starting to get worse last week they came in for further evaluation. Patient also has a area of redness and tenderness on the dorsal aspect of his right foot. X-rays do not show any definitive osteomyelitis. Patient was admitted on IV antibiotics with infectious disease on consult. Vascular surgery was consulted by primary medical team for concerns for peripheral arterial disease. He underwent ABIs which was reported as abnormal. Patient currently denies any chest pain, no pain in his lower extremities with ambulation just states that he gets weak and feels though he can't walk long duration causes legs may collapse. He has been afebrile, no fevers or chills. Review of Systems A 14 point review systems was completed all pertinent positives and negatives as stated in the HPI. 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%, history of renal chest and 2 in 1992 from a donor and in 1995 from a living donor, history of neck fracture, history of Covid 19 infection, severe aortic stenosis, anemia of chronic disease.neuropathy History of Any Multi-Drug Resistant Organisms: None Reported Past Surgical History: Appendectomy Additional Past Surgical History / Comment(s): Kidney transplant times 07/28/1992 and 1995 and the patient has a fistula in the left upper extremity Past Anesthesia/Blood Transfusion Reactions: No Reported Reaction Past Psychological History: No Psychological Hx Reported Smoking Status: Former smoker Past Alcohol Use History: Rare Additional Past Alcohol Use History / Comment(s): patient can not remember when he stopped smoking Past Drug Use History: None Reported - Past Family History Mother Family Medical History: Cancer Additional Family Medical History / Comment(s): pancreatic cancer Father Family Medical History: CVA/TIA Additional Family Medical History / Comment(s): father of stroke , mother pancreatic cancer Medications and Allergies Home Medications Medication Instructions Recorded Confirmed Type Atorvastatin [Lipitor] 10 mg PO HS 01/29/22 02/12/23 History Cholecalciferol [Vitamin D3 (25 50 mcg PO DAILY 01/29/22 02/12/23 History Mcg = 1000 Iu)] [place]-3/Dha/Epa/Fish Oil [Fish Oil 1 cap PO DAILY 01/29/22 02/12/23 History 1,000 mg Softgel] Isosorbide Mononitrate ER [Imdur] 30 mg PO DAILY 01/30/22 02/12/23 History Aspirin 81 mg PO DAILY 05/01/22 02/12/23 History rOPINIRole HCL [Requip] 2 mg PO BID 05/01/22 02/12/23 History Folic Acid/Vit B Complex and C 0.8 mg PO DIRECTED 06/03/22 02/12/23 History [Emy-Catalino Tablet] Sevelamer Carbonate 1,600 mg PO PC-TID 06/03/22 02/12/23 History Magnesium Oxide [Mag-Ox] 400 mg PO DAILY #30 tab 06/05/22 02/12/23 Rx Metoprolol Succinate (ER) [Toprol 25 mg PO DAILY #30 tab 06/26/22 02/12/23 Rx XL] Bumetanide [BUMEX] 4 mg PO DAILY 08/16/22 02/12/23 History Calcium Acetate [PhosLo] 667 mg PO PC-TID 08/16/22 02/12/23 History Lidocaine-Prilocaine Cream [Emla 1 applic TOPICAL DAILY PRN 08/16/22 02/12/23 History Cream 2.5%/2.5%] Cephalexin [Keflex] 500 mg PO Q12HR 02/12/23 02/12/23 History Colchicine [Colcrys] 0.6 mg PO BID 02/12/23 02/12/23 History PARoxetine [Paxil] 5 mg PO DAILY 02/12/23 02/12/23 History allopurinoL [Zyloprim] 100 mg PO DAILY 02/12/23 02/12/23 History oxyCODONE-APAP 5-325MG [Percocet 1 - 1.5 tab PO TID PRN 02/12/23 02/12/23 History 5-325 mg] Allergies Allergy/AdvReac Type Severity Reaction Status Date / Time enalaprilat [From Vasotec] Allergy Swelling Verified 02/12/23 14:40 lisinopril Allergy Swelling Verified 02/12/23 14:40 gabapentin AdvReac Hallucinati Verified 02/12/23 14:40 ons/Nightma res Surgical - Exam Vital Signs Temp Pulse Resp BP Pulse Ox 98.0 F 59 L 20 97/52 98 02/12/23 11:17 02/12/23 11:17 02/12/23 11:17 02/12/23 11:17 02/12/23 11:17 General appearance: The patient is alert, oriented, appears in no acute distress. HET: Head is normocephalic and atraumatic. Pupils are equal and reactive. Neck: Supple. Heart: Regular. Lungs: Equal expansion, normal respiratory effort. Abdomen: Soft, nontender, nondistended. Extremities: Nonpalpable bilateral PT and DP pulses. Palpable femoral and popliteal pulses. Left lower leg with superficial wound to the cath and diabetic ulcer to the distal tip of left second toe.dorsal aspect right foot with swelling and erythema. Neurological: No focal deficits. . Results - Labs 02/13/23 11:28 02/13/23 07:14 Abnormal Lab Results - Last 24 Hours (Table) 02/12/23 02/13/23 02/13/23 Range/Units 12:26 07:14 07:14 RBC 3.02 L (4.40-5.60) X 10*6/uL Hgb 10.6 L (13.0-17.0) d/dL Hct 33.6 L (39.6-50.0) % MCV 111.3 H (80.0-97.0) FL MCH 35.1 H (27.0-32.0) pg MCHC 31.5 L (32.0-37.0) d/dL RDW 15.9 H (11.5-14.5) % Plt Count 97 L (140-440) X 10*3/uL MPV 14.5 H (9.5-12.2) FL Lymphocytes # 0.5 L (1.0-4.8) k/uL Macrocytosis Potassium 5.9 H (3.5-5.5) mmol/L Anion Gap 15.20 H (4.00-12.00) mmol/L BUN 49.3 H (9.0-27.0) mg/dL Creatinine 5.1 H (0.6-1.5) mg/dL Est GFR (CKD-EPI) 11 L (>=60) BUN/Creatinine Ratio 9.67 L (12.00-20.00) Ratio 02/13/23 Range/Units 11:28 RBC 2.88 L (4.40-5.60) X 10*6/uL Hgb 10.3 L (13.0-17.0) d/dL Hct 32.5 L (39.6-50.0) % MCV 112.6 H (80.0-97.0) FL MCH 35.6 H (27.0-32.0) pg MCHC (32.0-37.0) d/dL RDW 16.5 H (11.5-14.5) % Plt Count 90 L (140-440) X 10*3/uL MPV (9.5-12.2) FL Lymphocytes # 0.4 L (1.0-4.8) k/uL Macrocytosis Marked A Potassium (3.5-5.5) mmol/L Anion Gap (4.00-12.00) mmol/L BUN (9.0-27.0) mg/dL Creatinine (0.6-1.5) mg/dL Est GFR (CKD-EPI) (>=60) BUN/Creatinine Ratio (12.00-20.00) Ratio Diabetes panel 02/13/23 Range/Units 07:14 Sodium 137 (135-145) mmol/L Potassium 5.9 H (3.5-5.5) mmol/L Chloride 96 (96-109) mmol/L Carbon Dioxide 25.8 (21.6-31.8) mmol/L BUN 49.3 H (9.0-27.0) mg/dL Creatinine 5.1 H (0.6-1.5) mg/dL Glucose 83 (70-110) mg/dL Calcium 8.7 (8.7-10.3) mg/dL Calcium panel 02/13/23 Range/Units 07:14 Calcium 8.7 (8.7-10.3) mg/dL Pituitary panel 02/13/23 Range/Units 07:14 Sodium 137 (135-145) mmol/L Potassium 5.9 H (3.5-5.5) mmol/L Chloride 96 (96-109) mmol/L Carbon Dioxide 25.8 (21.6-31.8) mmol/L BUN 49.3 H (9.0-27.0) mg/dL Creatinine 5.1 H (0.6-1.5) mg/dL Glucose 83 (70-110) mg/dL Calcium 8.7 (8.7-10.3) mg/dL Adrenal panel 02/13/23 Range/Units 07:14 Sodium 137 (135-145) mmol/L Potassium 5.9 H (3.5-5.5) mmol/L Chloride 96 (96-109) mmol/L Carbon Dioxide 25.8 (21.6-31.8) mmol/L BUN 49.3 H (9.0-27.0) mg/dL Creatinine 5.1 H (0.6-1.5) mg/dL Glucose 83 (70-110) mg/dL Calcium 8.7 (8.7-10.3) mg/dL - Imaging Comments: Lower extremity arterial duplex right incomplete. Waveforms overall favor microvascular disease. Assessment and Plan Assessment: 1. Chronic left Ulcer 2. Left second toe ulcer noninfected 3. Right dorsal aspect foot with erythema, rule out infection 4. Peripheral arterial disease, mostly microvascular 5. Diabetes mellitus with peripheral neuropathy 6. End-stage renal disease on dialysis Plan: 1. Agree with MRI of right foot 2. No plans for any vascular surgical intervention at this time, recommend out patient follow-up 3. Continue with recommendations from infectious disease 4. We will continue to follow, with further recommendations based on MRI Thank you for this consultation. The impression and plan of care has been dictated as directed. Dr. Lozada I performed a history and examination of this patient, discussed the same with the dictator. I agree with the dictator's note ,documented as a scribe. Any additional findings or plans will be noted.
[2023-02-13 13:13] LABS: Erythrocyte Sedimentation Rate 30 mm/Hr (0-20)
[2023-02-13 13:34] LABS: INR 1.1 (<1.2); Prothrombin Time 11.3 sec (9.0-12.0)
[2023-02-13] MEDS: allopurinoL 100 MG TAB PO SCH (13:45)
[2023-02-13] MEDS: CALCIUM ACETATE 667 MG TAB PO SCH ×3 (13:45→18:07)
[2023-02-13] MEDS: SEVELAMER 800 MG TAB PO SCH ×3 (13:45→18:07)
[2023-02-13] MEDS: ISOSORBIDE MONONITRATE ER 30 MG TAB.ER.24H PO SCH (13:46)
[2023-02-13] MEDS: METOPROLOL SUCCINATE (ER) 25 MG TAB.ER.24H PO SCH (13:46)
[2023-02-13] MEDS: ASPIRIN 81 MG PO SCH (13:46)
[2023-02-13] MEDS: BUMETANIDE 1 MG TAB PO SCH (13:50)
[2023-02-13] MEDS: COLCHICINE 0.6 MG EACH PO SCH ×2 (13:50→20:22)
[2023-02-13] MEDS: PARoxetine 10 MG TAB PO SCH (13:50)
[2023-02-13] MEDS: HEPARIN SODIUM,PORCINE 5,000 UNIT/ML 1 ML VIAL SQ SCH ×3 (13:51→20:33)
[2023-02-13] MEDS: oxyCODONE-APAP 5-325MG 1 EACH TAB PO PRN (14:04)
[2023-02-13 16:59] LABS: African American GFR (CKD) 23 (>60 ml/min/1.73 sqM); Anion Gap 9 mmol/L; Blood Urea Nitrogen 24 mg/dL (9-20); Calcium 8.2 mg/dL (8.4-10.2); Carbon Dioxide 29 mmol/L (22-30); Chloride 95 mmol/L (98-107); Glucose 105 mg/dL (74-99); Non-African American GFR(CKD) 20 (>60 ml/min/1.73 sqM); Sodium 133 mmol/L (137-145)
[2023-02-13 17:07] LABS: Potassium 4.3 mmol/L (3.5-5.1)
--- NOTE | 2023-02-13 17:28 | P.PN ---
Subjective Progress Note Date: 02/13/23 Patient is a 77-year-old male with end-stage renal disease on hemodialysis, congestive heart failure, cardiomyopathy with ejection fraction 20-25%, hypertension, and dyslipidemia who presented to the emergency room at the direction of his home care nurse for worsening wounds. He has been following with Dr. Crum but his moods have been worsening. On arrival to ER he was slightly hypotensive with a blood pressure 97/52 and a pulse of 59. Laboratory analysis included a CBC remarkable for hemoglobin 10.2 and platelets of 100 over 4 are at patient's baseline and a BNP remarkable for chloride 96, And 31, BUN 45, creatinine 4.71. Right foot x-ray showed soft tissue edema with possible osteomyelitis recommended triple phase bone scan, left tib-fib x-ray shows no acute osseous abnormalities. In the ER he was started on vancomycin. Arrangements were made for admission for possible osteomyelitis. Nephrology, infectious disease, and vascular surgery were consulted. Patient seen and examined at bedside. Continues to have worsening numbness in his feet. He continues to have some shortness of breath which is unchanged from yesterday. He has no other complaints currently. Vital signs reviewed General: nontoxic, no distress, appears at stated age Cardiovascular: S1S2 reg, no murmur, positive posterior tibial pulse bilateral, Lungs: Coarse breath sounds bilateral, no rhonchi, no rales , no accessory muscle use, hard of hearing Abdominal: soft, nontender to palpation, no guarding, no appreciable organomegaly Ext: no gross muscle atrophy, no edema b/l lower extremities, no contractures Neuro: CN II-XI grossly intact, no focal neuro deficits Psych: Alert, oriented, appropriate affect Assessment/Plan: Chronic right foot wound, concerns of osteomyelitis Chronic left calf ulcer Peripheral arterial disease, mostly microvascular -Infectious disease note reviewed: Continue with vancomycin - continue with vanco, monitoring cr and trough for toxicity -Await blood cultures -Await MRI of foot - ASA 81 mg daily -Vascular surgery note reviewed and case discussed with Dr. Lozada. No plans for vascular surgical intervention at this time, outpatient follow-up ESRD on HD T//FRI -Nephrology note reviewed: HD today CHronic systolic CHF, EF 20% HTN HLD Severe aortic stenosis - no REINIER/ARB with ESRD - resume bumex, metoprolol 25 mg daily - ASA 81 mg daily, lipitor 10 mg daily, Imdur 30 mg daily Imaging: None new Data Review: Vitals reviewed in afebrile for the last 24 hours. Labs reviewed included CBC and basic metabolic profile which are remarkable for hemoglobin 10.3, hematocrit 32.5, platelets of 90, sodium 133, potassium 4.3 DVT prophylaxis: Heparin Anticipated discharge date: Pending clinical Course Anticipated discharge place: Pending clinical Course This dictation was prepared using [employer] voice recognition software. Though every attempt is made to correct errors during dictation some may still exist. Objective - Vital Signs Vital signs: Vital Signs Temp 97.4 F L 02/13/23 12:50 Pulse 65 02/13/23 12:50 Resp 16 02/13/23 12:50 BP 140/67 02/13/23 12:50 Pulse Ox 100 02/13/23 11:50 FiO2 Intake & Output 02/12/23 02/13/23 02/13/23 18:59 06:59 18:59 Intake Total 500 Output Total 3000 Balance -2500 Weight 63.503 kg 63.503 kg 64.2 kg Intake: Hemodialysis 500 Output: Hemodialysis 3000 Other: Voiding Method Toilet Toilet # Voids 3 - Labs CBC & Chem 7: 02/13/23 11:28 02/13/23 16:13 Labs: Abnormal Lab Results - Last 24 Hours (Table) 02/13/23 02/13/23 02/13/23 Range/Units 07:14 07:14 11:28 RBC 3.02 L 2.88 L (4.40-5.60) X 10*6/uL Hgb 10.6 L 10.3 L (13.0-17.0) d/dL Hct 33.6 L 32.5 L (39.6-50.0) % MCV 111.3 H 112.6 H (80.0-97.0) FL MCH 35.1 H 35.6 H (27.0-32.0) pg MCHC 31.5 L (32.0-37.0) d/dL RDW 15.9 H 16.5 H (11.5-14.5) % Plt Count 97 L 90 L (140-440) X 10*3/uL MPV 14.5 H (9.5-12.2) FL Lymphocytes # 0.4 L (1.0-4.8) k/uL Macrocytosis Marked A ESR 30 H (0-20) mm/Hr Sodium (137-145) mmol/L Potassium 5.9 H (3.5-5.5) mmol/L Chloride (98-107) mmol/L Anion Gap 15.20 H (4.00-12.00) mmol/L BUN 49.3 H (9.0-27.0) mg/dL Creatinine 5.1 H (0.6-1.5) mg/dL Est GFR (CKD-EPI) 11 L (>=60) BUN/Creatinine Ratio 9.67 L (12.00-20.00) Ratio Glucose (74-99) mg/dL Calcium (8.4-10.2) mg/dL 02/13/23 Range/Units 16:13 RBC (4.40-5.60) X 10*6/uL Hgb (13.0-17.0) d/dL Hct (39.6-50.0) % MCV (80.0-97.0) FL MCH (27.0-32.0) pg MCHC (32.0-37.0) d/dL RDW (11.5-14.5) % Plt Count (140-440) X 10*3/uL MPV (9.5-12.2) FL Lymphocytes # (1.0-4.8) k/uL Macrocytosis ESR (0-20) mm/Hr Sodium 133 L (137-145) mmol/L Potassium (3.5-5.5) mmol/L Chloride 95 L (98-107) mmol/L Anion Gap (4.00-12.00) mmol/L BUN 24 H (9.0-27.0) mg/dL Creatinine 2.90 H (0.6-1.5) mg/dL Est GFR (CKD-EPI) (>=60) BUN/Creatinine Ratio (12.00-20.00) Ratio Glucose 105 H (74-99) mg/dL Calcium 8.2 L (8.4-10.2) mg/dL
[2023-02-13 17:46] LABS: Hepatitis B Surface AB- Quant 3.5 mIU/mL; Hepatitis B Surface Antigen Nonreactive
[2023-02-13] MEDS: ATORVASTATIN 10 MG TAB PO SCH (20:22)
[2023-02-13] MEDS: AMPICILLIN-SULBACTAM 3 GM in SODIUM CHLORIDE 0.9% 100 ML IVPB SCH (20:23)
--- NOTE | 2023-02-14 08:15 | MR ---
EXAMINATION TYPE: MR foot RT wo con DATE OF EXAM: 02/13/2023 COMPARISON: Radiograph 02/12/2023 HISTORY: 77-year-old male pain, Osteomyelitis TECHNIQUE: Multiplanar, multisequence images of the right foot were obtained without IV contrast. FINDINGS: The technologist notes that the patient was moving even after several attempts. The scan had to be st opped prior to the last sequence. Generalized soft tissue swelling including plantar muscle edema, probably related to neuropathic watson ge. There is mild degenerative change first MTP joint with mild bunion formation. Note that the posterior heel is not included in the field of view and is not assessed. If there is an ulcer in this location and concern for osteomyelitis here, dedicated imaging of this location will b e needed. No convincing suspicious bone marrow replacement is seen. IMPRESSION: Motion degraded exam. Note that the posterior heel is excluded from the field of view and not assesse d. If there is concern for osteomyelitis in this location, further dedicated imaging will be needed. In addition, we will need additional direction as to the site of patient's ulcer. There is some soft tissue edema throughout as well as plantar muscle edema typically seen with neuropathic changes but n o convincing bone marrow replacement in the visualized portions of the foot to clearly indicate osteo myelitis at this time.
[2023-02-14] MEDS ORDERED: VANCOMYCIN 1,250 MG in SODIUM CHLORIDE 0.9% 250 ML IVPB ONE (09:00)
[2023-02-14] MEDS: oxyCODONE-APAP 5-325MG 1 EACH TAB PO PRN ×2 (09:47→15:55)
[2023-02-14] MEDS: METOPROLOL SUCCINATE (ER) 25 MG TAB.ER.24H PO SCH (09:58)
[2023-02-14] MEDS: ISOSORBIDE MONONITRATE ER 30 MG TAB.ER.24H PO SCH (09:58)
[2023-02-14] MEDS: SEVELAMER 800 MG TAB PO SCH ×3 (10:18→17:51)
[2023-02-14] MEDS: HEPARIN SODIUM,PORCINE 5,000 UNIT/ML 1 ML VIAL SQ SCH ×3 (10:18→21:18)
[2023-02-14] MEDS: ASPIRIN 81 MG PO SCH (10:18)
[2023-02-14] MEDS: CALCIUM ACETATE 667 MG TAB PO SCH ×3 (10:18→17:51)
[2023-02-14] MEDS: COLCHICINE 0.6 MG EACH PO SCH ×2 (10:19→21:17)
[2023-02-14] MEDS: BUMETANIDE 1 MG TAB PO SCH (10:19)
[2023-02-14] MEDS: allopurinoL 100 MG TAB PO SCH (10:19)
[2023-02-14] MEDS: PARoxetine 10 MG TAB PO SCH (10:20)
--- NOTE | 2023-02-14 11:25 | P.PN ---
Subjective Patient is seen in follow-up for end-stage renal disease. He is maintained on hemodialysis on Friday schedule. No problems with dialysis yesterday. Hemodynamically stable. Sitting up in chair. On room air. Vital signs are stable. General: No acute distress. HEENT: Head exam is unremarkable. LUNGS: No audible rhonchi or wheezes. HEART: Rate and Rhythm are regular. ABDOMEN: Nontender. EXTREMITITES: No edema. No drainage. Objective - Vital Signs Vital signs: Vital Signs Temp 98.2 F 02/14/23 08:00 Pulse 65 02/14/23 08:00 Resp 17 02/14/23 08:00 BP 117/70 02/14/23 08:00 Pulse Ox 100 02/14/23 08:00 FiO2 Intake & Output 02/13/23 02/14/23 02/14/23 18:59 06:59 18:59 Intake Total 500 Output Total 3000 Balance -2500 Weight 64.2 kg Intake: Hemodialysis 500 Output: Hemodialysis 3000 Other: Voiding Method Toilet Toilet Toilet # Voids 0 1 - Labs CBC & Chem 7: 02/13/23 11:28 02/13/23 16:13 Labs: Abnormal Lab Results - Last 24 Hours (Table) 02/13/23 02/13/23 02/13/23 Range/Units 07:14 07:14 11:28 RBC 3.02 L 2.88 L (4.40-5.60) X 10*6/uL Hgb 10.6 L 10.3 L (13.0-17.0) d/dL Hct 33.6 L 32.5 L (39.6-50.0) % MCV 111.3 H 112.6 H (80.0-97.0) FL MCH 35.1 H 35.6 H (27.0-32.0) pg MCHC 31.5 L (32.0-37.0) d/dL RDW 15.9 H 16.5 H (11.5-14.5) % Plt Count 97 L 90 L (140-440) X 10*3/uL MPV 14.5 H (9.5-12.2) FL Lymphocytes # 0.4 L (1.0-4.8) k/uL Macrocytosis Marked A ESR 30 H (0-20) mm/Hr Sodium (137-145) mmol/L Potassium 5.9 H (3.5-5.5) mmol/L Chloride (98-107) mmol/L Anion Gap 15.20 H (4.00-12.00) mmol/L BUN 49.3 H (9.0-27.0) mg/dL Creatinine 5.1 H (0.6-1.5) mg/dL Est GFR (CKD-EPI) 11 L (>=60) BUN/Creatinine Ratio 9.67 L (12.00-20.00) Ratio Glucose (74-99) mg/dL Calcium (8.4-10.2) mg/dL 02/13/23 Range/Units 16:13 RBC (4.40-5.60) X 10*6/uL Hgb (13.0-17.0) d/dL Hct (39.6-50.0) % MCV (80.0-97.0) FL MCH (27.0-32.0) pg MCHC (32.0-37.0) d/dL RDW (11.5-14.5) % Plt Count (140-440) X 10*3/uL MPV (9.5-12.2) FL Lymphocytes # (1.0-4.8) k/uL Macrocytosis ESR (0-20) mm/Hr Sodium 133 L (137-145) mmol/L Potassium (3.5-5.5) mmol/L Chloride 95 L (98-107) mmol/L Anion Gap (4.00-12.00) mmol/L BUN 24 H (9.0-27.0) mg/dL Creatinine 2.90 H (0.6-1.5) mg/dL Est GFR (CKD-EPI) (>=60) BUN/Creatinine Ratio (12.00-20.00) Ratio Glucose 105 H (74-99) mg/dL Calcium 8.2 L (8.4-10.2) mg/dL Microbiology - Last 24 Hours (Table) 02/12/23 15:15 Blood Culture - Preliminary Blood 02/12/23 15:30 Blood Culture - Preliminary Blood Assessment and Plan Plan: Assessment: 1. End-stage renal disease maintained on hemodialysis on Friday schedule. 2. Right foot erythema with concern for osteomyelitis. ID following. 3. Chronic kidney disease mineral bone disease maintained on phosphate binders. 4. Hyperkalemia secondary to chronic kidney disease. 5. Chronic systolic CHF ejection fraction of 20-25% with moderate mitral and moderate to severe tricuspid regurgitation. Plan: Hemodialysis tomorrow. Monitor vancomycin levels. Dose to be adjusted for renal function.
--- NOTE | 2023-02-14 12:17 | P.PN ---
Subjective Progress Note Date: 02/14/23 Principal diagnosis: Chronic wounds Patient seen and examined today without any acute changes. MRI was pre-much nondiagnostic. Await recommendations from infectious disease and primary medical team that they're doing further imaging. For now patient remains afebrile, he remains on Unasyn and vancomycin. Objective - Vital Signs Vital signs: Vital Signs Temp 98.2 F 02/14/23 08:00 Pulse 65 02/14/23 08:00 Resp 17 02/14/23 08:00 BP 117/70 02/14/23 08:00 Pulse Ox 100 02/14/23 08:00 FiO2 Intake & Output 02/13/23 02/14/23 02/14/23 18:59 06:59 18:59 Intake Total 500 Output Total 3000 Balance -2500 Weight 64.2 kg Intake: Hemodialysis 500 Output: Hemodialysis 3000 Other: Voiding Method Toilet Toilet Toilet # Voids 0 1 - Exam General appearance: The patient is alert, oriented, appears in no acute distress. HET: Head is normocephalic and atraumatic. Neck: Supple. Abdomen: Soft, nondistended. Extremities: Nonpalpable bilateral PT and DP pulses. Left lower leg with superficial wound to the cath and diabetic ulcer to the distal tip of left second toe.dorsal aspect right foot with swelling and erythema. Neurological: No focal deficits. - Labs CBC & Chem 7: 02/13/23 11:28 02/13/23 16:13 Labs: Abnormal Lab Results - Last 24 Hours (Table) 02/13/23 02/13/23 Range/Units 07:14 16:13 ESR 30 H (0-20) mm/Hr Sodium 133 L (137-145) mmol/L Chloride 95 L (98-107) mmol/L BUN 24 H (9-20) mg/dL Creatinine 2.90 H (0.66-1.25) mg/dL Glucose 105 H (74-99) mg/dL Calcium 8.2 L (8.4-10.2) mg/dL Microbiology - Last 24 Hours (Table) 02/12/23 15:15 Blood Culture - Preliminary Blood 02/12/23 15:30 Blood Culture - Preliminary Blood Assessment and Plan Assessment: 1. Chronic left Ulcer 2. Left second toe ulcer noninfected 3. Right dorsal aspect foot with erythema, rule out infection 4. Peripheral arterial disease, mostly microvascular 5. Diabetes mellitus with peripheral neuropathy 6. End-stage renal disease on dialysis Plan: 1. No plans for any vascular surgical intervention at this time, recommend outpatient follow-up 2. Continue with recommendations from infectious disease Thank you for this consultation, we will continue to follow. The impression and plan of care has been dictated as directed. Dr. Lundberg I performed a history and examination of this patient, discussed the same with the dictator. I agree with the dictator's note ,documented as a scribe. Any additional findings or plans will be noted.
--- NOTE | 2023-02-14 18:25 | P.PN ---
Subjective Progress Note Date: 02/14/23 Hospital course: Patient is a 77-year-old male with end-stage renal disease on hemodialysis, systolic congestive heart failure, cardiomyopathy with ejection fraction 20-25%, hypertension, and dyslipidemia. He presented to the emergency room at the direction of his home care nurse for worsening wounds. He has been following with Dr. Crum but his moods have been worsening. On arrival to ER he was slightly hypotensive with a blood pressure 97/52 and a pulse of 59. Laboratory analysis included a CBC remarkable for hemoglobin 10.2 and platelets of 100 over 4 are at patient's baseline and a BNP remarkable for chloride 96, And 31, BUN 45, creatinine 4.71. Right foot x-ray showed soft tissue edema with possible osteomyelitis recommended triple phase bone scan, left tib-fib x-ray shows no acute osseous abnormalities. In the ER he was started on IV antibiotics with vancomycin and admitted under our services with consultation to nephrology, infectious disease, and vascular surgery were consulted. Physical exam: Vital signs reviewed and stable. General: Nontoxic, no distress and appears stated age. Derm: Skin warm and dry, normal coloration for ethnicity. Left lower extremity with chronic ulceration left calf and small ulcer acute distal tip of left second toe. Ulceration with surrounding erythema and edema to right foot second toe. Head: Atraumatic, normocephalic and symmetric. Eyes: EOMs intact, no lid lag, and anicteric sclera Mouth: no lip lesions, mucus membranes moist Cardiovascular: regular rate and rhythm with normal S1S2, no murmur and cap refill delayed. Lungs: Respirations even, regular, and unlabored on room air. Lungs CTA bilaterally, no rhonchi, no rales, no wheezing, and no accessory muscle usage. Abdominal: soft, nontender to palpation, no guarding, no appreciable organomegaly Ext: ROM intact. No gross muscle atrophy, bilateral lower extremity edema and venous discoloration. no contractures Neuro: Speech clear, face symmetrical and CN II-XII grossly intact with no noted focal neuro deficits Psych: Alert and oriented to person, place, time, and situation. Appropriate and pleasant affect. Assessment and Plan of Care: Chronic right foot wound, concerns of infection/osteomyelitis Chronic left calf ulcer and left second toe ulcer Peripheral arterial disease, mostly microvascular -Infectious disease following, reviewed documentation in chart. -Continue IV antibiotics with with vancomycin, monitoring cr and trough for to xicity -Follow up on blood cultures, showing no growth to date -Patient scheduled to undergo MRI this morning. -Continue aspirin 81 mg daily and atorvastatin 10 mg nightly. -Vascular surgery following and discussed plan of care with vascular surgery [facility]. No plans for vascular surgical intervention at this time, recommend ruling out infectious process and outpatient follow-up with our office ESRD on HD T//FRI -Nephrology following and managing hemodialysis. HFrEF with EF of 20% HTN HLD Severe aortic stenosis Asymptomatic bradycardia - no REINIER/ARB with ESRD - resume bumex, metoprolol 25 mg daily - ASA 81 mg daily, lipitor 10 mg daily, Imdur 30 mg daily Imaging: -Will follow up on MRI results once available. Data Review: Vital signs reviewed. Blood pressure 98/56, heart rate 43, respiratory rate 17, temp 97.6F, SpO2 100% on room air. CODE STATUS: Full code DVT prophylaxis: Heparin Discussed with: Patient and RN Anticipated discharge date: Clinical course to determine Anticipated discharge place: Home Patient was seen independently by Nurse Pracitioner. This document was prepared using [employer] dictation software. Please allow for errors in industrial economist, while rare they do occur. Pedro Pinedo NP rendered care for this patient independently, reviewed the findings and plan as documented in the note above. I did not physically speak w ith or examine the patient on this date. Objective - Vital Signs Vital signs: Vital Signs Temp 98.2 F 02/14/23 08:00 Pulse 65 02/14/23 08:00 Resp 17 02/14/23 08:00 BP 117/70 02/14/23 08:00 Pulse Ox 100 02/14/23 08:00 FiO2 Intake & Output 02/13/23 02/14/23 02/14/23 18:59 06:59 18:59 Intake Total 500 Output Total 3000 Balance -2500 Weight 64.2 kg Intake: Hemodialysis 500 Output: Hemodialysis 3000 Other: Voiding Method Toilet Toilet # Voids 0 1 - Labs CBC & Chem 7: 02/17/23 17:15 02/17/23 05:48 Labs: Abnormal Lab Results - Last 24 Hours (Table) 02/13/23 02/13/23 02/13/23 Range/Units 07:14 07:14 11:28 RBC 3.02 L 2.88 L (4.40-5.60) X 10*6/uL Hgb 10.6 L 10.3 L (13.0-17.0) d/dL Hct 33.6 L 32.5 L (39.6-50.0) % MCV 111.3 H 112.6 H (80.0-97.0) FL MCH 35.1 H 35.6 H (27.0-32.0) pg MCHC 31.5 L (32.0-37.0) d/dL RDW 15.9 H 16.5 H (11.5-14.5) % Plt Count 97 L 90 L (140-440) X 10*3/uL MPV 14.5 H (9.5-12.2) FL Lymphocytes # 0.4 L (1.0-4.8) k/uL Macrocytosis Marked A ESR 30 H (0-20) mm/Hr Sodium (137-145) mmol/L Potassium 5.9 H (3.5-5.5) mmol/L Chloride (98-107) mmol/L Anion Gap 15.20 H (4.00-12.00) mmol/L BUN 49.3 H (9.0-27.0) mg/dL Creatinine 5.1 H (0.6-1.5) mg/dL Est GFR (CKD-EPI) 11 L (>=60) BUN/Creatinine Ratio 9.67 L (12.00-20.00) Ratio Glucose (74-99) mg/dL Calcium (8.4-10.2) mg/dL 02/13/23 Range/Units 16:13 RBC (4.40-5.60) X 10*6/uL Hgb (13.0-17.0) d/dL Hct (39.6-50.0) % MCV (80.0-97.0) FL MCH (27.0-32.0) pg MCHC (32.0-37.0) d/dL RDW (11.5-14.5) % Plt Count (140-440) X 10*3/uL MPV (9.5-12.2) FL Lymphocytes # (1.0-4.8) k/uL Macrocytosis ESR (0-20) mm/Hr Sodium 133 L (137-145) mmol/L Potassium (3.5-5.5) mmol/L Chloride 95 L (98-107) mmol/L Anion Gap (4.00-12.00) mmol/L BUN 24 H (9.0-27.0) mg/dL Creatinine 2.90 H (0.6-1.5) mg/dL Est GFR (CKD-EPI) (>=60) BUN/Creatinine Ratio (12.00-20.00) Ratio Glucose 105 H (74-99) mg/dL Calcium 8.2 L (8.4-10.2) mg/dL Microbiology - Last 24 Hours (Table) 02/12/23 15:15 Blood Culture - Preliminary Blood 02/12/23 15:30 Blood Culture - Preliminary Blood
[2023-02-14] MEDS: AMPICILLIN-SULBACTAM 3 GM in SODIUM CHLORIDE 0.9% 100 ML IVPB SCH (21:18)
[2023-02-15] MEDS: oxyCODONE-APAP 5-325MG 1 EACH TAB PO PRN ×3 (01:15→21:44)
[2023-02-15 06:48] LABS: Anisocytosis Slight; HCT 35.7 % (39.0-53.0); HGB 10.9 gm/dL (13.0-17.5); Hypochromasia Marked; MCH 35.7 pg (25.0-35.0); MCHC 30.6 g/dL (31.0-37.0); MCV 116.7 fL (80.0-100.0); Macrocytosis Marked; Mean Platelet Volume 9.1; Platelet Count 69 k/uL (150-450); RBC 3.06 m/uL (4.30-5.90); RDW 16.6 % (11.5-15.5); WBC 4.4 k/uL (3.8-10.6)
[2023-02-15 09:15] LABS: ALT 23 U/L (10-49); AST 30 U/L (14-35); Albumin 3.9 d/dL (3.8-4.9); Albumin/Globulin Ratio 1.34 Ratio (1.60-3.17); Alkaline Phosphatase 152 U/L (41-126); Calcium 8.4 mg/dL (8.7-10.3); Carbon Dioxide 25.1 mmol/L (21.6-31.8); Chloride 94 mmol/L (96-109); Globulin 2.9 d/dL (1.6-3.3); Glucose 84 mg/dL (70-110); Magnesium 2.2 mg/dL (1.5-2.4); Potassium 5.3 mmol/L (3.5-5.5); Sodium 135 mmol/L (135-145); Total Bilirubin 0.7 mg/dL (0.3-1.2); Total Protein 6.8 d/dL (6.2-8.2)
--- NOTE | 2023-02-15 09:52 | P.PN ---
Subjective Progress Note Date: 02/13/23 Principal diagnosis: R foot pain/abnormal xray ?osteomyelitis Patient is a 77-year-old male with a past medical history significant for end-stage renal disease in this patient who is status post renal transplant x2 history of COVID-19 infection aortic stenosis presenting to the ER infection to the right foot, patient also have a history of left second toe tip wound and debridement by his sink maker, patient did have a x-ray of the foot which did show soft tissue edema no submental laceration of the medial cuneiform bone concerning for osteomyelitis patient was started on vancomycin. On today's evaluation that is 02/13/2023, the patient denies having any fever or any chills, the patient is breathing comfortably currently on room air no chest pain shortness with cough no abdominal pain or any worsening pain to the right foot. Patient did have a creatinine 2.90, vancomycin random was 19.3 blood cultures pending MRI report is pending Objective - Vital Signs Vital signs: Vital Signs Temp 98.0 F 02/13/23 07:45 Pulse 64 02/13/23 07:45 Resp 17 02/13/23 08:40 BP 125/73 02/13/23 07:45 Pulse Ox 98 02/13/23 07:45 FiO2 Intake & Output 02/12/23 02/13/23 02/13/23 18:59 06:59 18:59 Weight 63.503 kg 63.503 kg 64.2 kg Other: Voiding Method Toilet Toilet # Voids 3 - Exam GENERAL DESCRIPTION: Elderly male lying in bed in no distress RESPIRATORY SYSTEM: Unlabored breathing , decreased breath sounds at bases HEART: S1 S2 regular rate and rhythm ,no loud murmurs ABDOMEN: Soft , no tenderness EXTREMITIES: Right foot dorsum did have an area of erythema which is tender to touch no open wound no drainage - Labs CBC & Chem 7: 02/15/23 06:00 02/15/23 06:04 Labs: Abnormal Lab Results - Last 24 Hours (Table) 02/12/23 02/12/23 02/13/23 Range/Units 12:26 12:26 07:14 RBC 2.82 L 3.02 L (4.30-5.90) m/uL Hgb 10.2 L 10.6 L (13.0-17.5) gm/dL Hct 31.3 L 33.6 L (39.0-53.0) % MCV 111.1 H 111.3 H (80.0-100.0) fL MCH 36.2 H 35.1 H (25.0-35.0) pg MCHC 31.5 L (32.0-37.0) d/dL RDW 16.3 H 15.9 H (11.5-15.5) % Plt Count 100 L 97 L (150-450) k/uL MPV 14.5 H (9.5-12.2) FL Lymphocytes # 0.5 L (1.0-4.8) k/uL Macrocytosis Marked A Potassium (3.5-5.5) mmol/L Chloride 96 L (98-107) mmol/L Carbon Dioxide 31 H (22-30) mmol/L Anion Gap (4.00-12.00) mmol/L BUN 45 H (9-20) mg/dL Creatinine 4.71 H (0.66-1.25) mg/dL Est GFR (CKD-EPI) (>=60) BUN/Creatinine Ratio (12.00-20.00) Ratio Alkaline Phosphatase 155 H (38-126) U/L C-Reactive Protein 2.1 H (<1.0) mg/dL 02/13/23 02/13/23 Range/Units 07:14 11:28 RBC 2.88 L (4.30-5.90) m/uL Hgb 10.3 L (13.0-17.5) gm/dL Hct 32.5 L (39.0-53.0) % MCV 112.6 H (80.0-100.0) fL MCH 35.6 H (25.0-35.0) pg MCHC (32.0-37.0) d/dL RDW 16.5 H (11.5-15.5) % Plt Count 90 L (150-450) k/uL MPV (9.5-12.2) FL Lymphocytes # 0.4 L (1.0-4.8) k/uL Macrocytosis Marked A Potassium 5.9 H (3.5-5.5) mmol/L Chloride (98-107) mmol/L Carbon Dioxide (22-30) mmol/L Anion Gap 15.20 H (4.00-12.00) mmol/L BUN 49.3 H (9-20) mg/dL Creatinine 5.1 H (0.66-1.25) mg/dL Est GFR (CKD-EPI) 11 L (>=60) BUN/Creatinine Ratio 9.67 L (12.00-20.00) Ratio Alkaline Phosphatase (38-126) U/L C-Reactive Protein (<1.0) mg/dL Assessment and Plan (1) Abnormal x-ray of bone Current Visit: Yes Status: Acute Code(s): R93.7 - ABNORMAL FINDINGS ON DIAGNOSTIC IMAGING OF PRT MS JONOS SNOMED Code(s): 036475164 (2) Osteomyelitis Current Visit: Yes Status: Acute Code(s): M86.9 - OSTEOMYELITIS, UNSPECIFIED SNOMED Code(s): 79305033 Plan: 1patient presented to hospital with swelling erythema on the dorsal right of the right foot with no ulceration however did have abnormal plain x-ray concerning for possible osteomyelitis which is unlikely but not entirely excluded. 2patient did have a history of infection of the left second toe tip with dried out wound but no significant swelling or redness on the drainage 3MRI has been ordered results will be followed. 4continue with empiric vancomycin while awaiting further work-up to be completed Dictation was produced using [employer] software. please excuse any grammatical, word or spelling errors.
--- NOTE | 2023-02-15 09:55 | P.PN ---
Subjective Progress Note Date: 02/14/23 Principal diagnosis: R foot pain/abnormal xray ?osteomyelitis Patient is a 77-year-old male with a past medical history significant for end-stage renal disease in this patient who is status post renal transplant x2 history of COVID-19 infection aortic stenosis presenting to the ER infection to the right foot, patient also have a history of left second toe tip wound and debridement by his radiology therapist, patient did have a x-ray of the foot which did show soft tissue edema no submental laceration of the medial cuneiform bone concerning for osteomyelitis patient was started on vancomycin. On today's evaluation that is 02/14/2023, the patient remains to be afebrile, the patient is breathing comfortably currently on room air no chest pain shortness with cough no abdominal pain or any worsening pain to the right foot. Patient white count is 4.4 cultures has been negative so far sed rate of 30 CRP of 2.1 MRI was inconclusive blood culture has been negative so far Objective - Vital Signs Vital signs: Vital Signs Temp 97.6 F 02/14/23 12:28 Pulse 47 L 02/14/23 12:28 Resp 17 02/14/23 12:28 BP 107/66 02/14/23 12:28 Pulse Ox 100 02/14/23 12:28 FiO2 Intake & Output 02/13/23 02/14/23 02/14/23 18:59 06:59 18:59 Intake Total 500 Output Total 3000 Balance -2500 Weight 64.2 kg Intake: Hemodialysis 500 Output: Hemodialysis 3000 Other: Voiding Method Toilet Toilet Toilet # Voids 0 1 - Exam GENERAL DESCRIPTION: Elderly male lying in bed in no distress RESPIRATORY SYSTEM: Unlabored breathing , decreased breath sounds at bases HEART: S1 S2 regular rate and rhythm ,no loud murmurs ABDOMEN: Soft , no tenderness EXTREMITIES: Right foot dorsum did have an area of erythema which is tender to touch no open wound no drainage - Labs CBC & Chem 7: 02/15/23 06:00 02/15/23 06:04 Labs: Abnormal Lab Results - Last 24 Hours (Table) 02/13/23 Range/Units 16:13 Sodium 133 L (137-145) mmol/L Chloride 95 L (98-107) mmol/L BUN 24 H (9-20) mg/dL Creatinine 2.90 H (0.66-1.25) mg/dL Glucose 105 H (74-99) mg/dL Calcium 8.2 L (8.4-10.2) mg/dL Microbiology - Last 24 Hours (Table) 02/12/23 15:15 Blood Culture - Preliminary Blood 02/12/23 15:30 Blood Culture - Preliminary Blood Assessment and Plan (1) Abnormal x-ray of bone Current Visit: Yes Status: Acute Code(s): R93.7 - ABNORMAL FINDINGS ON DIAGNOSTIC IMAGING OF PRT MS SYS SNOMED Code(s): 671517428 (2) Osteomyelitis Current Visit: Yes Status: Acute Code(s): M86.9 - OSTEOMYELITIS, UNSPECIFIED SNOMED Code(s): 12117470 Plan: 1patient presented to hospital with swelling erythema on the dorsal right of the right foot with no ulceration however did have abnormal plain x-ray concerning for possible osteomyelitis which is unlikely but not entirely excluded. 2patient did have a history of infection of the left second toe tip with dried out wound but no significant swelling or redness on the drainage 3MRI was inconclusive patient ESR is not significantly elevated, we will obtain a bone scan to better define underlying abnormality seen on the x-ray. 4continue with the vancomycin pharmacy to dose while waiting for the work-up to be completed Dictation was produced using [employer] dictation software. please excuse any grammatical, word or spelling errors. Time with Patient: Less than 30
[2023-02-15] MEDS: BUMETANIDE 1 MG TAB PO SCH (10:09)
[2023-02-15] MEDS: allopurinoL 100 MG TAB PO SCH (10:09)
[2023-02-15] MEDS: SEVELAMER 800 MG TAB PO SCH ×3 (10:09→18:13)
[2023-02-15] MEDS: ASPIRIN 81 MG PO SCH (10:09)
[2023-02-15] MEDS: CALCIUM ACETATE 667 MG TAB PO SCH ×3 (10:09→18:13)
[2023-02-15] MEDS: COLCHICINE 0.6 MG EACH PO SCH ×2 (10:10→21:44)
[2023-02-15] MEDS: PARoxetine 10 MG TAB PO SCH (10:10)
[2023-02-15] MEDS: HEPARIN SODIUM,PORCINE 5,000 UNIT/ML 1 ML VIAL SQ SCH ×3 (10:13→21:49)
--- NOTE | 2023-02-15 12:14 | P.PN ---
Subjective Progress Note Date: 02/15/23 Patient seen and examined. Currently receiving dialysis Objective - Vital Signs Vital signs: Vital Signs Temp 97.3 F L 02/15/23 08:14 Pulse 59 L 02/15/23 08:14 Resp 16 02/15/23 08:14 BP 118/70 02/15/23 08:14 Pulse Ox 100 02/15/23 08:14 FiO2 Intake & Output 02/14/23 02/15/23 02/15/23 18:59 06:59 18:59 Weight 64.7 kg Other: Voiding Method Toilet Toilet Toilet # Voids 1 2 - Exam No acute distress. On dialysis functioning well. Bilateral foot wounds similar to previous - Labs CBC & Chem 7: 02/15/23 06:00 02/15/23 06:04 Labs: Abnormal Lab Results - Last 24 Hours (Table) 02/15/23 02/15/23 Range/Units 06:00 06:04 RBC 3.06 L (4.30-5.90) m/uL Hgb 10.9 L (13.0-17.5) gm/dL Hct 35.7 L (39.0-53.0) % MCV 116.7 H (80.0-100.0) fL MCH 35.7 H (25.0-35.0) pg MCHC 30.6 L (31.0-37.0) g/dL RDW 16.6 H (11.5-15.5) % Plt Count 69 L (150-450) k/uL Macrocytosis Marked A Chloride 94 L (96-109) mmol/L Anion Gap 15.90 H (4.00-12.00) mmol/L BUN 47.0 H (9.0-27.0) mg/dL Creatinine 5.4 H (0.6-1.5) mg/dL Est GFR (CKD-EPI) 10 L (>=60) BUN/Creatinine Ratio 8.70 L (12.00-20.00) Ratio Calcium 8.4 L (8.7-10.3) mg/dL Alkaline Phosphatase 152 H (41-126) U/L Albumin/Globulin Ratio 1.34 L (1.60-3.17) Ratio Microbiology - Last 24 Hours (Table) 02/12/23 15:15 Blood Culture - Preliminary Blood 02/12/23 15:30 Blood Culture - Preliminary Blood Assessment and Plan Assessment: Bilateral foot wounds Incisional disease Peripheral arterial disease Plan: Discussed with patient and family at the bedside, I doubt any surgical intervention required at this point. Did see an order for potential bone scan evaluation. MRI was reviewed, there is no evidence of mid foot abscess as visualized. Discussed that he should be able to heal wounds given his blood flow however that would be the next discussion of the areas continue delayed healing but this can be addressed as an outpatient. They seemingly understand.
--- NOTE | 2023-02-15 13:21 | P.PN ---
Subjective Progress Note Date: 02/15/23 Hospital course: Patient is a 77-year-old male with end-stage renal disease on hemodialysis, systolic congestive heart failure, cardiomyopathy with ejection fraction 20-25%, hypertension, and dyslipidemia. He presented to the emergency room at the direction of his home care nurse for worsening wounds. He has been following with Dr. Crum but his moods have been worsening. On arrival to ER he was slightly hypotensive with a blood pressure 97/52 and a pulse of 59. Laboratory analysis included a CBC remarkable for hemoglobin 10.2 and platelets of 100 over 4 are at patient's baseline and a BNP remarkable for chloride 96, And 31, BUN 45, creatinine 4.71. Right foot x-ray showed soft tissue edema with possible osteomyelitis recommended triple phase bone scan, left tib-fib x-ray shows no acute osseous abnormalities. In the ER he was started on IV antibiotics with vancomycin and admitted under our services with consultation to nephrology, infectious disease, and vascular surgery were consulted. MRI right foot reported to be a motion degraded exam, however showing soft tissue edema throughout as well as plantar muscle edema typically seen with neuropathic changes but no co nvincing bone marrow replacement in the visualized portions of the foot to clearly indicate osteomyelitis at this time. Physical exam: Patient seen and fully evaluated at bedside this morning upon beginning of Scheduled dialysis. He currently reports numbness in feet otherwise denies any complaints at this time. Vital signs reviewed and stable. General: Nontoxic, no distress and appears stated age. Derm: Skin warm and dry, normal coloration for ethnicity. Left lower extremity with chronic ulceration left calf and small ulcer acute distal tip of left second toe. Ulceration with surrounding erythema and edema to right foot second toe. Head: Atraumatic, normocephalic and symmetric. Eyes: EOMs intact, no lid lag, and anicteric sclera Mouth: no lip lesions, mucus membranes moist Cardiovascular: regular rate and rhythm with normal S1S2, no murmur and cap refill delayed. Lungs: Respirations even, regular, and unlabored on room air. Lungs CTA bilaterally, no rhonchi, no rales, no wheezing, and no accessory muscle usage. Abdominal: soft, nontender to palpation, no guarding, no appreciable organomegaly Ext: ROM intact. No gross muscle atrophy, bilateral lower extremity edema and venous discoloration. no contractures Neuro: Speech clear, face symmetrical and CN II-XII grossly intact with no noted focal neuro deficits Psych: Alert and oriented to person, place, time, and situation. Appropriate and pleasant affect. Assessment and Plan of Care: Chronic right foot wound, concerns of infection/osteomyelitis Chronic left calf ulcer and left second toe ulcer Peripheral arterial disease, mostly microvascular -Infectious disease following, reviewed documentation in chart. -Continue IV antibiotics with with Unasyn and vancomycin, monitoring cr and trough for toxicity -Follow up on blood cultures, showing no growth to date -MRI right foot reported to be a motion degraded exam, however showing soft tissue edema throughout as well as plantar muscle edema typically seen with neuropathic changes but no convincing bone marrow replacement in the visualized portions of the foot to clearly indicate osteomyelitis at this time. -Continue aspirin 81 mg daily and atorvastatin 10 mg nightly. -Vascular surgery following and reviewed documentation in chart. No plans for vascular surgical intervention at this time, recommend ruling out infectious process and outpatient follow-up with our office ESRD on HD T//FRI Bicytopenia -Nephrology following and managing hemodialysis. HFrEF with EF of 20% HTN HLD Severe aortic stenosis Asymptomatic bradycardia - no REINIER/ARB with ESRD - resume bumex, metoprolol 25 mg daily - ASA 81 mg daily, lipitor 10 mg daily, Imdur 30 mg daily Imaging reviewed: -MRI right foot reported to be a motion degraded exam, however showing soft tissue edema throughout as well as plantar muscle edema typically seen with neuropathic changes but no convincing bone marrow replacement in the visualized portions of the foot to clearly indicate osteomyelitis at this time. Data Review: -Vital signs reviewed. Blood pressure 118/70, heart rate 59, respiratory rate 16, temp 97.3F, and SpO2 of 100% on room air. Labs completed and reviewed. CBC showing stable normocytic anemia with hemoglobin of 10.9 and thrombocytopenia with platelet count of 69.BMP consistent with ESRD with BUN of 47.0, creatinine 5.4, and GFR of 10 patient undergoing scheduled dialysis this morning. Liver profile showing elevated alkaline phosphatase of 152 otherwise normal findings. CODE STATUS: Full code DVT prophylaxis: Heparin Discussed with: Patient and RN Anticipated discharge date: Clinical course to determine Anticipated discharge place: Home Patient was seen independently by Nurse Pracitioner. This document was prepared using [employer] dictation software. Please allow for errors in panel machine operator, while rare they do occur. Pedro Pinedo NP rendered care for this patient independently, reviewed the findings and plan as documented in the note above. I did not physically speak with or examine the patient on this date. Objective - Vital Signs Vital signs: Vital Signs Temp 97.4 F L 02/15/23 01:15 Pulse 52 L 02/15/23 01:15 Resp 15 02/15/23 01:15 BP 125/70 02/15/23 01:15 Pulse Ox 100 02/15/23 01:15 FiO2 Intake & Output 02/14/23 02/15/23 02/15/23 18:59 06:59 18:59 Weight 64.7 kg Other: Voiding Method Toilet Toilet # Voids 1 2 - Labs CBC & Chem 7: 02/17/23 17:15 02/17/23 05:48 Labs: Abnormal Lab Results - Last 24 Hours (Table) 02/15/23 Range/Units 06:00 RBC 3.06 L (4.30-5.90) m/uL Hgb 10.9 L (13.0-17.5) gm/dL Hct 35.7 L (39.0-53.0) % MCV 116.7 H (80.0-100.0) fL MCH 35.7 H (25.0-35.0) pg MCHC 30.6 L (31.0-37.0) g/dL RDW 16.6 H (11.5-15.5) % Plt Count 69 L (150-450) k/uL Macrocytosis Marked A Microbiology - Last 24 Hours (Table) 02/12/23 15:15 Blood Culture - Preliminary Blood 02/12/23 15:30 Blood Culture - Preliminary Blood
--- NOTE | 2023-02-15 13:30 | P.PN ---
Subjective Progress Note Date: 02/15/23 Follow-up for ESRD, seen during dialysis, tolerating well. Objective - Vital Signs Vital signs: Vital Signs Temp 97.3 F L 02/15/23 12:33 Pulse 57 L 02/15/23 12:33 Resp 18 02/15/23 12:33 BP 127/67 02/15/23 12:33 Pulse Ox 100 02/15/23 12:33 FiO2 Intake & Output 02/14/23 02/15/23 02/15/23 18:59 06:59 18:59 Weight 64.7 kg Other: Voiding Method Toilet Toilet Toilet # Voids 1 2 - Exam No acute distress S1-S2 heard Lungs clear No edema - Labs CBC & Chem 7: 02/15/23 06:00 02/15/23 06:04 Labs: Abnormal Lab Results - Last 24 Hours (Table) 02/15/23 02/15/23 Range/Units 06:00 06:04 RBC 3.06 L (4.30-5.90) m/uL Hgb 10.9 L (13.0-17.5) gm/dL Hct 35.7 L (39.0-53.0) % MCV 116.7 H (80.0-100.0) fL MCH 35.7 H (25.0-35.0) pg MCHC 30.6 L (31.0-37.0) g/dL RDW 16.6 H (11.5-15.5) % Plt Count 69 L (150-450) k/uL Macrocytosis Marked A Chloride 94 L (96-109) mmol/L Anion Gap 15.90 H (4.00-12.00) mmol/L BUN 47.0 H (9.0-27.0) mg/dL Creatinine 5.4 H (0.6-1.5) mg/dL Est GFR (CKD-EPI) 10 L (>=60) BUN/Creatinine Ratio 8.70 L (12.00-20.00) Ratio Calcium 8.4 L (8.7-10.3) mg/dL Alkaline Phosphatase 152 H (41-126) U/L Albumin/Globulin Ratio 1.34 L (1.60-3.17) Ratio Microbiology - Last 24 Hours (Table) 02/12/23 15:15 Blood Culture - Preliminary Blood 02/12/23 15:30 Blood Culture - Preliminary Blood Assessment and Plan Assessment: #1 ESRD, TTS schedule #2 right foot infection, concern for ostia #3 anemia with chronic kidney disease #4 metabolic bone disease #5 chronic systolic CHF with EF of 20-25% Plan: #1 hemodialysis today as per outpatient schedule #2 next treatment on Friday #3 antibiotics as per primary
[2023-02-15] MEDS: METOPROLOL SUCCINATE (ER) 25 MG TAB.ER.24H PO SCH (16:23)
[2023-02-15] MEDS: ISOSORBIDE MONONITRATE ER 30 MG TAB.ER.24H PO SCH (16:23)
--- NOTE | 2023-02-15 18:12 | P.PN ---
Subjective Progress Note Date: 02/15/23 Principal diagnosis: R foot pain/abnormal xray ?osteomyelitis Patient is a 77-year-old male with a past medical history significant for end-stage renal disease in this patient who is status post renal transplant x2 history of COVID-19 infection aortic stenosis presenting to the ER infection to the right foot, patient also have a history of left second toe tip wound and debridement by his film developing machine operator, patient did have a x-ray of the foot which did show soft tissue edema no submental laceration of the medial cuneiform bone concerning for osteomyelitis patient was started on vancomycin. On today's evaluation that is 02/15/2023, the patient remains to be afebrile, t he patient is breathing comfortably, the patient denies chest pain shortness of breath or cough, no nausea no vomiting no abdominal pain and no diarrhea has been reported. Patient denies any worsening pain to the right foot Patient white count is 4.4, creatinine is 5.4 cultures has been negative so far sed rate of 30 CRP of 2.1 MRI was inconclusive blood culture has been negative so far Objective - Vital Signs Vital signs: Vital Signs Temp 98 F 02/15/23 14:58 Pulse 62 02/15/23 14:58 Resp 18 02/15/23 14:58 BP 106/58 02/15/23 14:58 Pulse Ox 100 02/15/23 12:33 FiO2 Intake & Output 02/14/23 02/15/23 02/15/23 18:59 06:59 18:59 Intake Total 500 Output Total 3002 Balance -2502 Weight 64.7 kg Intake: Hemodialysis 500 Output: Urine 2 Hemodialysis 3000 Other: Voiding Method Toilet Toilet Toilet # Voids 1 2 # Bowel Movements 1 - Exam GENERAL DESCRIPTION: Elderly male lying in bed in no distress RESPIRATORY SYSTEM: Unlabored breathing , decreased breath sounds at bases HEART: S1 S2 regular rate and rhythm ,no loud murmurs ABDOMEN: Soft , no tenderness EXTREMITIES: Right foot dorsum did have an area of erythema which is tender to touch no open wound no drainage - Labs CBC & Chem 7: 02/15/23 06:00 02/15/23 06:04 Labs: Abnormal Lab Results - Last 24 Hours (Table) 02/15/23 02/15/23 Range/Units 06:00 06:04 RBC 3.06 L (4.30-5.90) m/uL Hgb 10.9 L (13.0-17.5) gm/dL Hct 35.7 L (39.0-53.0) % MCV 116.7 H (80.0-100.0) fL MCH 35.7 H (25.0-35.0) pg MCHC 30.6 L (31.0-37.0) g/dL RDW 16.6 H (11.5-15.5) % Plt Count 69 L (150-450) k/uL Macrocytosis Marked A Chloride 94 L (96-109) mmol/L Anion Gap 15.90 H (4.00-12.00) mmol/L BUN 47.0 H (9.0-27.0) mg/dL Creatinine 5.4 H (0.6-1.5) mg/dL Est GFR (CKD-EPI) 10 L (>=60) BUN/Creatinine Ratio 8.70 L (12.00-20.00) Ratio Calcium 8.4 L (8.7-10.3) mg/dL Alkaline Phosphatase 152 H (41-126) U/L Albumin/Globulin Ratio 1.34 L (1.60-3.17) Ratio Microbiology - Last 24 Hours (Table) 02/12/23 15:15 Blood Culture - Preliminary Blood 02/12/23 15:30 Blood Culture - Preliminary Blood Assessment and Plan (1) Abnormal x-ray of bone Current Visit: Yes Status: Acute Code(s): R93.7 - ABNORMAL FINDINGS ON DIAGNOSTIC IMAGING OF PRT MS SYS SNOMED Code(s): 196189712 (2) Osteomyelitis Current Visit: Yes Status: Acute Code(s): M86.9 - OSTEOMYELITIS, UNSPECIFIED SNOMED Code(s): 70146689 Plan: 1patient presented to hospital with swelling erythema on the dorsal right of the right foot with no ulceration however did have abnormal plain x-ray c oncerning for possible osteomyelitis which is unlikely but not entirely excluded. 2patient did have a history of infection of the left second toe tip with dried out wound but no significant swelling or redness on the drainage 3MRI was inconclusive patient ESR is not significantly elevated, currently waiting for bone scan to better define underlying abnormality seen on the x-ray. 4patient to continue with the vancomycin pharmacy to dose and monitor clinical course closely Dictation was produced using [employer] dictation software. please excuse any grammatical, word or spelling errors. Time with Patient: Less than 30
[2023-02-15] MEDS: ACETAMINOPHEN TAB 325 MG TAB PO PRN (19:45)
[2023-02-15] MEDS: AMPICILLIN-SULBACTAM 3 GM in SODIUM CHLORIDE 0.9% 100 ML IVPB SCH (19:46)
[2023-02-15] MEDS: ALPRAZolam 0.25 MG TAB PO PRN (21:44)
[2023-02-15] MEDS: ATORVASTATIN 10 MG TAB PO SCH (21:44)
[2023-02-16] MEDS: oxyCODONE-APAP 5-325MG 1 EACH TAB PO PRN ×3 (06:38→22:54)
[2023-02-16] MEDS: PARoxetine 10 MG TAB PO SCH (08:35)
[2023-02-16] MEDS: COLCHICINE 0.6 MG EACH PO SCH ×2 (08:35→22:53)
[2023-02-16] MEDS: ASPIRIN 81 MG PO SCH (08:35)
[2023-02-16] MEDS: METOPROLOL SUCCINATE (ER) 25 MG TAB.ER.24H PO SCH (08:36)
[2023-02-16] MEDS: SEVELAMER 800 MG TAB PO SCH ×3 (08:36→18:03)
[2023-02-16] MEDS: BUMETANIDE 1 MG TAB PO SCH (08:36)
[2023-02-16] MEDS: ISOSORBIDE MONONITRATE ER 30 MG TAB.ER.24H PO SCH (08:36)
[2023-02-16] MEDS: HEPARIN SODIUM,PORCINE 5,000 UNIT/ML 1 ML VIAL SQ SCH ×2 (08:36→22:53)
[2023-02-16] MEDS: CALCIUM ACETATE 667 MG TAB PO SCH ×3 (08:36→18:03)
[2023-02-16] MEDS: allopurinoL 100 MG TAB PO SCH (08:36)
[2023-02-16 13:57] LABS: African American GFR (CKD) 14 (>60 ml/min/1.73 sqM); Non-African American GFR(CKD) 13 (>60 ml/min/1.73 sqM)
[2023-02-16 14:02] LABS: Vancomycin,Random 21.1 ug/mL
--- NOTE | 2023-02-16 17:09 | P.PN ---
Subjective Progress Note Date: 02/16/23 Hospital course: Patient is a 77-year-old male with end-stage renal disease on hemodialysis, systolic congestive heart failure, cardiomyopathy with ejection fraction 20-25%, hypertension, and dyslipidemia. He presented to the emergency room at the direction of his home care nurse for worsening wounds. He has been following with Dr. Crum but his moods have been worsening. On arrival to ER he was slightly hypotensive with a blood pressure 97/52 and a pulse of 59. Laboratory analysis included a CBC remarkable for hemoglobin 10.2 and platelets of 100 over 4 are at patient's baseline and a BNP remarkable for chloride 96, And 31, BUN 45, creatinine 4.71. Right foot x-ray showed soft tissue edema with possible osteomyelitis recommended triple phase bone scan, left tib-fib x-ray shows no acute osseous abnormalities. In the ER he was started on IV antibiotics with vancomycin and admitted under our services with consultation to nephrology, infectious disease, and vascular surgery were consulted. MRI right foot reported to be a motion degraded exam, however showing soft tissue edema throughout as well as plantar muscle edema typically seen with neuropathic changes but no co nvincing bone marrow replacement in the visualized portions of the foot to clearly indicate osteomyelitis at this time. Physical exam: Patient seen and fully evaluated at bedside this morning. He was sitting up in the recliner and appeared to be doing well this morning. Patient reports rough night but so far this morning is having a good day. He continues to report pain in his right toes and foot, erythema seems to be improving. Vital signs reviewed and stable. General: Nontoxic, no distress and appears stated age. Derm: Skin warm and dry, normal coloration for ethnicity. Left lower extremity with chronic ulceration left calf and small ulcer acute distal tip of left second toe. Ulceration with surrounding erythema and edema to right foot second toe. Head: Atraumatic, normocephalic and symmetric. Eyes: EOMs intact, no lid lag, and anicteric sclera Mouth: no lip lesions, mucus membranes moist Cardiovascular: regular rate and rhythm with normal S1S2, no murmur and cap refill delayed. Lungs: Respirations even, regular, and unlabored on room air. Lungs CTA bilaterally, no rhonchi, no rales, no wheezing, and no accessory muscle usage. Abdominal: soft, nontender to palpation, no guarding, no appreciable organomegaly Ext: ROM intact. No gross muscle atrophy, bilateral lower extremity edema and venous discoloration. no contractures Neuro: Speech clear, face symmetrical and CN II-XII grossly intact with no noted focal neuro deficits Psych: Alert and oriented to person, place, time, and situation. Appropriate and pleasant affect. Assessment and Plan of Care: Chronic right foot wound, concerns of infection/osteomyelitis Chronic left calf ulcer and left second toe ulcer Peripheral arterial disease, mostly microvascular -Infectious disease following, recommending continuation of vancomycin. -Continue IV antibiotics with with Unasyn and vancomycin, monitoring cr and trough for toxicity -Follow up on blood cultures, showing no growth to date -MRI right foot reported to be a motion degraded exam, however showing soft tissue edema throughout as well as plantar muscle edema typically seen with neuropathic changes but no convincing bone marrow replacement in the visualized portions of the foot to clearly indicate osteomyelitis at this time. -Continue aspirin 81 mg daily and atorvastatin 10 mg nightly. -Vascular surgery following and reviewed documentation in chart. No plans for vascular surgical intervention at this time, recommend ruling out infectious process and outpatient follow-up with our office ESRD on HD T//FRI Bicytopenia -Nephrology following and managing hemodialysis. HFrEF with EF of 20% HTN HLD Severe aortic stenosis Asymptomatic bradycardia - no REINIER/ARB with ESRD - resume bumex, metoprolol 25 mg daily - ASA 81 mg daily, lipitor 10 mg daily, Imdur 30 mg daily Imaging reviewed: -MRI right foot reported to be a motion degraded exam, however showing soft tissue edema throughout as well as plantar muscle edema typically seen with neuropathic changes but no convincing bone marrow replacement in the visualized portions of the foot to clearly indicate osteomyelitis at this time. Data Review: -Vital signs reviewed. Blood pressure 137/80, heart rate 70, respiratory rate 14, temp 97.7F, SpO2 100% on room air. CODE STATUS: Full code DVT prophylaxis: Heparin Discussed with: Patient and RN Anticipated discharge date: Likely in the next 24-[address]: Home Patient was seen independently by Nurse Pracitioner. This document was prepared using [employer] dictation software. Please allow for errors in it risk advisor, while rare they do occur. Pedro Pinedo NP rendered care for this patient independently, reviewed the findings and plan as documented in the note above. I did not physically speak with or examine the patient on this date. Objective - Vital Signs Vital signs: Vital Signs Temp 97.7 F 02/16/23 07:50 Pulse 70 02/16/23 07:50 Resp 14 02/16/23 07:50 BP 137/80 02/16/23 07:50 Pulse Ox 100 02/16/23 07:50 FiO2 Intake & Output 02/15/23 02/16/23 02/16/23 18:59 06:59 18:59 Intake Total 500 Output Total 3002 Balance -2502 Weight 63.3 kg Intake: Hemodialysis 500 Output: Urine 2 Hemodialysis 3000 Other: Voiding Method Toilet Toilet # Voids 1 # Bowel Movements 1 4 - Labs CBC & Chem 7: 02/17/23 17:15 02/17/23 05:48 Labs: Abnormal Lab Results - Last 24 Hours (Table) 02/15/23 Range/Units 06:04 Chloride 94 L (96-109) mmol/L Anion Gap 15.90 H (4.00-12.00) mmol/L BUN 47.0 H (9.0-27.0) mg/dL Creatinine 5.4 H (0.6-1.5) mg/dL Est GFR (CKD-EPI) 10 L (>=60) BUN/Creatinine Ratio 8.70 L (12.00-20.00) Ratio Calcium 8.4 L (8.7-10.3) mg/dL Alkaline Phosphatase 152 H (41-126) U/L Albumin/Globulin Ratio 1.34 L (1.60-3.17) Ratio Microbiology - Last 24 Hours (Table) 02/12/23 15:15 Blood Culture - Preliminary Blood 02/12/23 15:30 Blood Culture - Preliminary Blood
--- NOTE | 2023-02-16 18:26 | P.PN ---
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 On today's evaluation that is 02/16/2023, the patient continues to be afebrile, the patient is breathing comfortably and denies any shortness of breath no chest pain or cough, the patient denies having any nausea and vomiting no abdominal pain and no diarrhea, Patient still combining of some pain to the right foot Patient white count is 4.4, creatinine is 5.4 as of 02/15/2023 no blood draw was done today, cultures has been negative so far sed rate of 30 CRP of 2.1 MRI was inconclusive blood culture has been negative so far Objective - Vital Signs Vital signs: Vital Signs Temp 97.7 F 02/16/23 07:50 Pulse 70 02/16/23 08:40 Resp 14 02/16/23 08:40 BP 137/80 02/16/23 07:50 Pulse Ox 100 02/16/23 07:50 FiO2 Intake & Output 02/15/23 02/16/23 02/16/23 18:59 06:59 18:59 Intake Total 500 Output Total 3002 Balance -2502 Weight 63.3 kg Intake: Hemodialysis 500 Output: Urine 2 Hemodialysis 3000 Other: Voiding Method Toilet Toilet Toilet # Voids 1 1 # Bowel Movements 1 4 1 - Exam GENERAL DESCRIPTION: Elderly male lying in bed in no distress RESPIRATORY SYSTEM: Unlabored breathing , decreased breath sounds at bases HEART: S1 S2 regular rate and rhythm ,no loud murmurs ABDOMEN: Soft , no tenderness EXTREMITIES: Right foot dorsum did have an area of erythema which is tender to touch no open wound no drainage - Labs CBC & Chem 7: 02/15/23 06:00 02/16/23 13:12 Labs: Abnormal Lab Results - Last 24 Hours (Table) 02/15/23 Range/Units 06:04 Chloride 94 L (96-109) mmol/L Anion Gap 15.90 H (4.00-12.00) mmol/L BUN 47.0 H (9.0-27.0) mg/dL Creatinine 5.4 H (0.6-1.5) mg/dL Est GFR (CKD-EPI) 10 L (>=60) BUN/Creatinine Ratio 8.70 L (12.00-20.00) Ratio Calcium 8.4 L (8.7-10.3) mg/dL Alkaline Phosphatase 152 H (41-126) U/L Albumin/Globulin Ratio 1.34 L (1.60-3.17) Ratio Microbiology - Last 24 Hours (Table) 02/12/23 15:15 Blood Culture - Preliminary Blood 02/12/23 15:30 Blood Culture - Preliminary Blood Assessment and Plan (1) Abnormal x-ray of bone Current Visit: Yes Status: Acute Code(s): R93.7 - ABNORMAL FINDINGS ON DIAGNOSTIC IMAGING OF PRT MS SYS SNOMED Code(s): 243035398 (2) Osteomyelitis Current Visit: Yes Status: Acute Code(s): M86.9 - OSTEOMYELITIS, UNSPECIFIED SNOMED Code(s): 48942176 Plan: 1patient presented to hospital with swelling erythema on the dorsal right of the right foot with no ulceration however did have abnormal plain x-ray concerning for possible osteomyelitis which is unlikely but not entirely excluded. 2patient did have a history of infection of the left second toe tip with dried out wound but no significant swelling or redness on the drainage 3MRI was inconclusive patient ESR is not significantly elevated, currently waiting for bone scan to better define underlying abnormality seen on the x-ray. 4patient to continue with the vancomycin pharmacy to dose with further workup on the basis of the bone scan Dictation was produced using [employer] dictation software. please excuse any grammatical, word or spelling errors. Time with Patient: Less than 30
[2023-02-16] MEDS: AMPICILLIN-SULBACTAM 3 GM in SODIUM CHLORIDE 0.9% 100 ML IVPB SCH (20:31)
[2023-02-16] MEDS: ALPRAZolam 0.25 MG TAB PO PRN (22:53)
[2023-02-16] MEDS: ATORVASTATIN 10 MG TAB PO SCH (22:53)
[2023-02-16] MEDS: ACETAMINOPHEN TAB 325 MG TAB PO PRN (23:23)
[2023-02-17] MEDS: CALCIUM ACETATE 667 MG TAB PO SCH ×3 (08:28→17:47)
[2023-02-17] MEDS: ISOSORBIDE MONONITRATE ER 30 MG TAB.ER.24H PO SCH (08:28)
[2023-02-17] MEDS: METOPROLOL SUCCINATE (ER) 25 MG TAB.ER.24H PO SCH (08:28)
[2023-02-17] MEDS: SEVELAMER 800 MG TAB PO SCH ×3 (08:28→17:47)
[2023-02-17] MEDS: allopurinoL 100 MG TAB PO SCH (08:28)
[2023-02-17] MEDS: ASPIRIN 81 MG PO SCH (08:28)
[2023-02-17] MEDS: BUMETANIDE 1 MG TAB PO SCH (08:28)
[2023-02-17] MEDS: PARoxetine 10 MG TAB PO SCH (08:29)
[2023-02-17] MEDS: HEPARIN SODIUM,PORCINE 5,000 UNIT/ML 1 ML VIAL SQ SCH ×2 (08:29→21:29)
[2023-02-17] MEDS: COLCHICINE 0.6 MG EACH PO SCH ×2 (08:29→21:29)
[2023-02-17 08:58] LABS: ALT 24 U/L (10-49); AST 40 U/L (14-35); Albumin 4.2 d/dL (3.8-4.9); Albumin/Globulin Ratio 1.35 Ratio (1.60-3.17); Alkaline Phosphatase 158 U/L (41-126); BUN/Creat Ratio 9.69 Ratio (12.00-20.00); Blood Urea Nitrogen 49.4 mg/dL (9.0-27.0); Calcium 8.2 mg/dL (8.7-10.3); Carbon Dioxide 23.5 mmol/L (21.6-31.8); Chloride 95 mmol/L (96-109); Globulin 3.1 d/dL (1.6-3.3); Glucose 78 mg/dL (70-110); Potassium 5.2 mmol/L (3.5-5.5); Sodium 136 mmol/L (135-145); Total Bilirubin 0.7 mg/dL (0.3-1.2); Total Protein 7.3 d/dL (6.2-8.2)
[2023-02-17 09:10] LABS: HCT 31.8 % (39.6-50.0); HGB 10.3 d/dL (13.0-17.0); MCHC 32.4 d/dL (32.0-37.0); MCV 111.2 FL (80.0-97.0); Mean Platelet Volume 14.5 FL (9.5-12.2); NRBC Per 100 WBC 0 X 10*3/uL (0.00-0.01); Platelet Count 101 X 10*3/uL (140-440); RBC 2.86 X 10*6/uL (4.40-5.60); RDW 16.1 % (11.5-14.5); WBC 5.32 X 10*3/uL (4.50-10.00)
[2023-02-17] MEDS: ACETAMINOPHEN TAB 325 MG TAB PO PRN ×2 (09:31→17:49)
[2023-02-17] MEDS: oxyCODONE-APAP 5-325MG 1 EACH TAB PO PRN ×2 (09:32→17:47)
[2023-02-17] MEDS: ALPRAZolam 0.25 MG TAB PO PRN ×2 (09:32→17:47)
--- NOTE | 2023-02-17 13:43 | P.PN ---
Subjective Progress Note Date: 02/17/23 Principal diagnosis: Chronic wounds Patient seen and examined today as follow-up. He underwent bone scan this morning and is going to be undergoing his second part around 1:00 today he stated. No acute changes through the night. No other complaints. He is been afebrile. Objective - Vital Signs Vital signs: Vital Signs Temp 97.6 F 02/17/23 12:32 Pulse 75 02/17/23 12:32 Resp 16 02/17/23 12:32 BP 95/51 02/17/23 12:32 Pulse Ox 97 02/17/23 12:32 FiO2 Intake & Output 02/16/23 02/17/23 02/17/23 18:59 06:59 18:59 Intake Total 160 Balance 160 Intake: Oral 160 Other: Voiding Method Toilet Toilet Toilet # Voids 1 2 1 # Bowel Movements 1 1 - Exam General appearance: The patient is alert, oriented, appears in no acute distress. HET: Head is normocephalic and atraumatic. Neck: Supple. Abdomen: Soft, nondistended. Extremities: Bilateral foot wounds similar to previous. Neurological: No focal deficits. - Labs CBC & Chem 7: 02/17/23 05:48 02/17/23 05:48 Labs: Abnormal Lab Results - Last 24 Hours (Table) 02/16/23 02/17/23 02/17/23 Range/Units 13:12 05:48 05:48 RBC 2.86 L (4.40-5.60) X 10*6/uL Hgb 10.3 L (13.0-17.0) d/dL Hct 31.8 L (39.6-50.0) % MCV 111.2 H (80.0-97.0) FL MCH 36.0 H (27.0-32.0) pg RDW 16.1 H (11.5-14.5) % Plt Count 101 L (140-440) X 10*3/uL MPV 14.5 H (9.5-12.2) FL Chloride 95 L (96-109) mmol/L Anion Gap 17.50 H (4.00-12.00) mmol/L BUN 49.4 H (9.0-27.0) mg/dL Creatinine 4.22 H 5.1 H (0.66-1.25) mg/dL Est GFR (CKD-EPI) 11 L (>=60) BUN/Creatinine Ratio 9.69 L (12.00-20.00) Ratio Calcium 8.2 L (8.7-10.3) mg/dL AST 40 H (14-35) U/L Alkaline Phosphatase 158 H (41-126) U/L Albumin/Globulin Ratio 1.35 L (1.60-3.17) Ratio Assessment and Plan Assessment: 1. Chronic left Ulcer 2. Left second toe ulcer noninfected 3. Right dorsal aspect foot with erythema, rule out infection 4. Peripheral arterial disease 5. Diabetes mellitus with peripheral neuropathy 6. End-stage renal disease on dialysis Plan: 1. No plans for any vascular surgical intervention at this time, will await bone scan results, otherwise follow-up as an outpatient 2. Continue with recommendations from infectious disease Thank you for this consultation, we will continue to follow. The impression and plan of care has been dictated as directed. Dr. Lundberg I performed a history and examination of this patient, discussed the same with the dictator. I agree with the dictator's note ,documented as a scribe. Any additional findings or plans will be noted.
--- NOTE | 2023-02-17 14:58 | NM ---
EXAMINATION TYPE: NM bone 3 phase DATE OF EXAM: 02/17/2023 COMPARISON: MR right foot 02/13/2023, right foot radiograph 02/12/2023 CLINICAL INDICATION: Male, 77 years old with history of abnormal xray ?osteomyelitis; Triple phase bone scintigraphy was performed following the injection of 20.2 mCi Tc 99m MDP. Immedia te images and 6 hours post injection images acquired. FINDINGS: The forefoot is not included in the imaging which limits evaluation. There is slightly increased uptake to the right foot on flow images compared to the left. There is ag ain slightly increased radiotracer within the medial aspect of the right ankle on blood pool images. Similar bilateral ankle uptake on delayed imaging. IMPRESSION: No convincing scintigraphic evidence for osteomyelitis within the visualized bilateral an kles and midfoot. The forefoot is not included in the imaging which limits evaluation.
--- NOTE | 2023-02-17 15:56 | P.PN ---
Subjective Progress Note Date: 02/17/23 Hospital course: Patient is a 77-year-old male with end-stage renal disease on hemodialysis, systolic congestive heart failure, cardiomyopathy with ejection fraction 20-25%, hypertension, and dyslipidemia. He presented to the emergency room at the direction of his home care nurse for worsening wounds. He has been following with Dr. Crum but his moods have been worsening. On arrival to ER he was slightly hypotensive with a blood pressure 97/52 and a pulse of 59. Laboratory analysis included a CBC remarkable for hemoglobin 10.2 and platelets of 100 over 4 are at patient's baseline and a BNP remarkable for chloride 96, And 31, BUN 45, creatinine 4.71. Right foot x-ray showed soft tissue edema with possible osteomyelitis recommended triple phase bone scan, left tib-fib x-ray shows no acute osseous abnormalities. In the ER he was started on IV antibiotics with vancomycin and admitted under our services with consultation to nephrology, infectious disease, and vascular surgery were consulted. MRI right foot reported to be a motion degraded exam, however showing soft tissue edema throughout as well as plantar muscle edema typically seen with neuropathic changes but no co nvincing bone marrow replacement in the visualized portions of the foot to clearly indicate osteomyelitis at this time. Physical exam: Patient seen and fully evaluated at bedside this morning. He was sitting up in the recliner and appeared to be doing well this morning. Patient currently denies having any needs or complaints at this time, he is scheduled to undergo bone scan later today. Vital signs reviewed and stable. General: Nontoxic, no distress and appears stated age. Derm: Skin warm and dry, normal coloration for ethnicity. Left lower extremity with chronic ulceration left calf and small ulcer acute distal tip of left second toe. Ulceration with surrounding erythema and edema to right foot second toe. Head: Atraumatic, normocephalic and symmetric. Eyes: EOMs intact, no lid lag, and anicteric sclera Mouth: no lip lesions, mucus membranes moist Cardiovascular: regular rate and rhythm with normal S1S2, no murmur and cap refill delayed. Lungs: Respirations even, regular, and unlabored on room air. Lungs CTA bilaterally, no rhonchi, no rales, no wheezing, and no accessory muscle usage. Abdominal: soft, nontender to palpation, no guarding, no appreciable organomegal y Ext: ROM intact. No gross muscle atrophy, bilateral lower extremity edema and venous discoloration. no contractures Neuro: Speech clear, face symmetrical and CN II-XII grossly intact with no noted focal neuro deficits Psych: Alert and oriented to person, place, time, and situation. Appropriate and pleasant affect. Assessment and Plan of Care: Chronic right foot wound, concerns of infection/osteomyelitis Chronic left calf ulcer and left second toe ulcer Peripheral arterial disease, mostly microvascular -Infectious disease following, recommending continuation of vancomycin until bone scan results are available. -Continue IV antibiotics with with Unasyn and vancomycin, monitoring cr and trough for toxicity -Blood cultures showing no growth to date. -Continue aspirin 81 mg daily and atorvastatin 10 mg nightly. -Vascular surgery following and reviewed documentation in chart. No plans for vascular surgical intervention at this time, recommend ruling out infectious process and outpatient follow-up with our office ESRD on HD T//FRI Bicytopenia -Nephrology following and managing hemodialysis. HFrEF with EF of 20% HTN HLD Severe aortic stenosis Asymptomatic bradycardia -No REINIER/ARB with ESRD -Continue Bumex 4 mg daily,metoprolol 25 mg daily, ASA 81 mg daily, lipitor 10 mg daily, Imdur 30 mg daily Imaging reviewed: -No new imaging for review at this time. Patient scheduled to undergo bone scan later today. Data Review: -Vital signs reviewed. Blood pressure 126/75, heart rate 62, respiratory rate 18, temp 97.7F, and SpO2 of 99% on room air. -Labs reviewed. CBC showing stable macrocytic anemia with hemoglobin of 10.3, improvement of thrombocytopenia with platelet count increasing to 101. BMP remains consistent with ESRD with BUN of 49.4, creatinine 5.1, and GFR of 11 and patient is scheduled to undergo dialysis tomorrow morning. CODE STATUS: Full code DVT prophylaxis: Heparin Discussed with: Patient, infectious disease physician and RN Anticipated discharge date: Likely in the next 24-[address]: Home Patient was seen independently by Nurse Pracitioner. This document was prepared using [employer] dictation software. Please allow for errors in accounts payable or receivable clerk, while rare they do occur. Pedro Pinedo NP rendered care for this patient independently, reviewed the findings and plan as documented in the note above. I did not physically speak with or examine the patient on this date. Objective - Vital Signs Vital signs: Vital Signs Temp 97.7 F 02/17/23 07:16 Pulse 62 02/17/23 07:16 Resp 18 02/17/23 07:16 BP 126/75 02/17/23 07:16 Pulse Ox 99 02/17/23 07:16 FiO2 Intake & Output 02/16/23 02/17/23 02/17/23 18:59 06:59 18:59 Intake Total 160 Balance 160 Intake: Oral 160 Other: Voiding Method Toilet Toilet # Voids 1 2 # Bowel Movements 1 - Labs CBC & Chem 7: 02/17/23 17:15 02/17/23 05:48 Labs: Abnormal Lab Results - Last 24 Hours (Table) 02/15/23 02/16/23 02/17/23 Range/Units 06:04 13:12 05:48 Chloride 94 L 95 L (96-109) mmol/L Anion Gap 15.90 H 17.50 H (4.00-12.00) mmol/L BUN 47.0 H 49.4 H (9.0-27.0) mg/dL Creatinine 5.4 H 4.22 H 5.1 H (0.6-1.5) mg/dL Est GFR (CKD-EPI) 10 L 11 L (>=60) BUN/Creatinine Ratio 8.70 L 9.69 L (12.00-20.00) Ratio Calcium 8.4 L 8.2 L (8.7-10.3) mg/dL AST 40 H (14-35) U/L Alkaline Phosphatase 152 H 158 H (41-126) U/L Albumin/Globulin Ratio 1.34 L 1.35 L (1.60-3.17) Ratio
[2023-02-17 17:58] LABS: HCT 33.9 % (39.0-53.0); HGB 10.2 gm/dL (13.0-17.5); MCH 35.3 pg (25.0-35.0); MCHC 30.2 g/dL (31.0-37.0); MCV 116.8 fL (80.0-100.0); RDW 16.6 % (11.5-15.5); WBC 3.8 k/uL (3.8-10.6)
[2023-02-17 17:59] LABS: Anisocytosis Slight; Hypochromasia Moderate; Macrocytosis Marked; Mean Platelet Volume 11.5
--- NOTE | 2023-02-17 17:59 | P.PN ---
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 On today's evaluation that is 02/17/2023, the patient remains to be afebrile, the patient is breathing comfortably on room air , the patient denies having any chest pain or cough, the patient denies nausea and vomiting no abdominal pain and no diarrhea, the patient denies any worsening pain to the right foot Patient white count is 5.32, creatinine is 5.1, cultures has been negative so far sed rate of 30 CRP of 2.1 MRI was inconclusive blood culture has been negative so far Objective - Vital Signs Vital signs: Vital Signs Temp 97.6 F 02/17/23 12:32 Pulse 75 02/17/23 12:32 Resp 16 02/17/23 12:32 BP 95/51 02/17/23 12:32 Pulse Ox 97 02/17/23 12:32 FiO2 Intake & Output 02/16/23 02/17/23 02/17/23 18:59 06:59 18:59 Intake Total 160 Balance 160 Intake: Oral 160 Other: Voiding Method Toilet Toilet Toilet # Voids 1 2 1 # Bowel Movements 1 1 - Exam GENERAL DESCRIPTION: Elderly male lying in bed in no distress RESPIRATORY SYSTEM: Unlabored breathing , decreased breath sounds at bases HEART: S1 S2 regular rate and rhythm ,no loud murmurs ABDOMEN: Soft , no tenderness EXTREMITIES: Right foot dorsum did have an area of erythema which is tender to touch no open wound no drainage - Labs CBC & Chem 7: 02/17/23 05:48 02/17/23 05:48 Labs: Abnormal Lab Results - Last 24 Hours (Table) 02/16/23 02/17/23 02/17/23 Range/Units 13:12 05:48 05:48 RBC 2.86 L (4.40-5.60) X 10*6/uL Hgb 10.3 L (13.0-17.0) d/dL Hct 31.8 L (39.6-50.0) % MCV 111.2 H (80.0-97.0) FL MCH 36.0 H (27.0-32.0) pg RDW 16.1 H (11.5-14.5) % Plt Count 101 L (140-440) X 10*3/uL MPV 14.5 H (9.5-12.2) FL Chloride 95 L (96-109) mmol/L Anion Gap 17.50 H (4.00-12.00) mmol/L BUN 49.4 H (9.0-27.0) mg/dL Creatinine 4.22 H 5.1 H (0.66-1.25) mg/dL Est GFR (CKD-EPI) 11 L (>=60) BUN/Creatinine Ratio 9.69 L (12.00-20.00) Ratio Calcium 8.2 L (8.7-10.3) mg/dL AST 40 H (14-35) U/L Alkaline Phosphatase 158 H (41-126) U/L Albumin/Globulin Ratio 1.35 L (1.60-3.17) Ratio Assessment and Plan (1) Abnormal x-ray of bone Current Visit: Yes Status: Acute Code(s): R93.7 - ABNORMAL FINDINGS ON DIAGNOSTIC IMAGING OF PRT [place] SNOMED Code(s): 314668161 (2) Osteomyelitis Current Visit: Yes Status: Acute Code(s): M86.9 - OSTEOMYELITIS, UNSPECIFIED SNOMED Code(s): 87401080 Plan: 1patient presented to hospital with swelling erythema on the dorsal right of the right foot with no ulceration however did have abnormal plain x-ray concerning for possible osteomyelitis which is unlikely but not entirely excluded. 2patient did have a history of infection of the left second toe tip with dried out wound but no significant swelling or redness on the drainage 3MRI was inconclusive patient ESR is not significantly elevated, currently waiting for bone scan to better define underlying abnormality seen on the x-ray. 4patient to continue with the vancomycin pharmacy to dose while waiting for the bone scan to be completed and monitor clinical course closely Dictation was produced using [employer] software. please excuse any grammatical, word or spelling errors. Time with Patient: Less than 30
[2023-02-17 19:00] LABS: Basophils # (M) 0.04 k/uL (0-0.2); Eosinophils # (M) 0.08 k/uL (0-0.7); Lymphocytes # (M) 0.38 k/uL (1.0-4.8); Monocytes # (M) 0.57 k/uL (0-1.0); Neutrophils # (M) 2.74 k/uL (1.3-7.7); Neutrophils % (M) 72 %; Nucleated Red Blood Cells 0 /100 WBC (0-0); Total Cells Counted 100
[2023-02-17 19:16] LABS: Polychromasia Present
[2023-02-17 19:19] LABS: Platelet Count 93 k/uL (150-450)
[2023-02-17] MEDS: AMPICILLIN-SULBACTAM 3 GM in SODIUM CHLORIDE 0.9% 100 ML IVPB SCH (19:23)
--- NOTE | 2023-02-17 19:53 | P.PN ---
Subjective Patient is seen for f/u for ESRD Scheduled for HD in am No complaints today. Objective - Vital Signs Vital signs: Vital Signs Temp 97.8 F 02/17/23 19:28 Pulse 54 L 02/17/23 19:28 Resp 16 02/17/23 19:28 BP 134/74 02/17/23 19:28 Pulse Ox 100 02/17/23 19:28 FiO2 Intake & Output 02/17/23 02/17/23 02/18/23 06:59 18:59 06:59 Other: Voiding Method Toilet Toilet # Voids 2 1 # Bowel Movements 1 - Exam Patient is comfortable Lungs are clear, decreased breath sounds in bases CVS S1 and S2 Abdomen is soft Extremities trace edema. - Labs CBC & Chem 7: 02/17/23 17:15 02/17/23 05:48 Labs: Abnormal Lab Results - Last 24 Hours (Table) 02/17/23 02/17/23 02/17/23 Range/Units 05:48 05:48 17:15 RBC 2.86 L 2.90 L (4.40-5.60) X 10*6/uL Hgb 10.3 L 10.2 L (13.0-17.0) d/dL Hct 31.8 L 33.9 L (39.6-50.0) % MCV 111.2 H 116.8 H (80.0-97.0) FL MCH 36.0 H 35.3 H (27.0-32.0) pg MCHC 30.2 L (31.0-37.0) g/dL RDW 16.1 H 16.6 H (11.5-14.5) % Plt Count 101 L 93 L (140-440) X 10*3/uL MPV 14.5 H (9.5-12.2) FL Lymphocytes # (Manual) 0.38 L (1.0-4.8) k/uL Macrocytosis Marked A Chloride 95 L (96-109) mmol/L Anion Gap 17.50 H (4.00-12.00) mmol/L BUN 49.4 H (9.0-27.0) mg/dL Creatinine 5.1 H (0.6-1.5) mg/dL Est GFR (CKD-EPI) 11 L (>=60) BUN/Creatinine Ratio 9.69 L (12.00-20.00) Ratio Calcium 8.2 L (8.7-10.3) mg/dL AST 40 H (14-35) U/L Alkaline Phosphatase 158 H (41-126) U/L Albumin/Globulin Ratio 1.35 L (1.60-3.17) Ratio Assessment and Plan Assessment: #1 ESRD, TTS schedule #2 right foot infection, concern for ostia #3 anemia with chronic kidney disease #4 metabolic bone disease #5 chronic systolic CHF with EF of 20-25% Plan: HD in am.
[2023-02-17] MEDS: ATORVASTATIN 10 MG TAB PO SCH (21:29)
[2023-02-18 08:14] VITALS: BMI 22.8
[2023-02-18] MEDS ORDERED: BACITRACIN OINT 1 EACH PACKET TOPICAL ONE (09:02)
--- NOTE | 2023-02-18 10:06 | P.PN ---
Subjective Progress Note Date: 02/18/23 Principal diagnosis: Chronic wounds Patient seen and examined today as follow-up. No acute changes through the night. No other complaints. He is been afebrile. The patient is going to undergo hemodialysis today. Bone scan showed no osteomyelitis. Objective - Vital Signs Vital signs: Vital Signs Temp 97.4 F L 02/18/23 08:05 Pulse 55 L 02/18/23 08:05 Resp 19 02/18/23 08:05 BP 121/68 02/18/23 08:05 Pulse Ox 100 02/18/23 08:05 FiO2 Intake & Output 02/17/23 02/18/23 02/18/23 18:59 06:59 18:59 Weight 70 kg 70 kg Other: Voiding Method Toilet Toilet # Voids 1 # Bowel Movements 1 - Exam General appearance: The patient is alert, oriented, appears in no acute distress. HET: Head is normocephalic and atraumatic. Neck: Supple. Abdomen: Soft, nondistended. Extremities: Bilateral foot wounds similar to previous. Right dorsal aspect erythema and swelling improved. Neurological: No focal deficits. - Labs CBC & Chem 7: 02/17/23 17:15 02/17/23 05:48 Labs: Abnormal Lab Results - Last 24 Hours (Table) 02/17/23 Range/Units 17:15 RBC 2.90 L (4.30-5.90) m/uL Hgb 10.2 L (13.0-17.5) gm/dL Hct 33.9 L (39.0-53.0) % MCV 116.8 H (80.0-100.0) fL MCH 35.3 H (25.0-35.0) pg MCHC 30.2 L (31.0-37.0) g/dL RDW 16.6 H (11.5-15.5) % Plt Count 93 L (150-450) k/uL Lymphocytes # (Manual) 0.38 L (1.0-4.8) k/uL Macrocytosis Marked A Microbiology - Last 24 Hours (Table) 02/12/23 15:15 Blood Culture - Final Blood 02/12/23 15:30 Blood Culture - Final Blood Assessment and Plan Assessment: 1. Chronic left Ulcer 2. Left second toe ulcer noninfected 3. Right dorsal aspect foot with erythema, no osteomyelitis per bone scan 4. Peripheral arterial disease 5. Diabetes mellitus with peripheral neuropathy 6. End-stage renal disease on dialysis Plan: 1. No plans for any vascular surgical intervention at this time, recommend outpatient follow-up with Dr. Lundberg. Thank you for this consultation, patient is clear from vascular surgery for discharge. The impression and plan of care has been dictated as directed. Dr. Lundberg I performed a history and examination of this patient, discussed the same with the dictator. I agree with the dictator's note ,documented as a scribe. Any additional findings or plans will be noted.
--- NOTE | 2023-02-18 12:46 | P.PN ---
Subjective Patient is seen for f/u for ESRD Patient is seen on hemodialysis. Tolerating treatment well. Currently sleeping but has been arousable. Objective - Vital Signs Vital signs: Vital Signs Temp 97.4 F L 02/18/23 08:05 Pulse 55 L 02/18/23 08:05 Resp 19 02/18/23 08:05 BP 121/68 02/18/23 08:05 Pulse Ox 100 02/18/23 08:05 FiO2 Intake & Output 02/17/23 02/18/23 02/18/23 18:59 06:59 18:59 Weight 70 kg 70 kg Other: Voiding Method Toilet Toilet Toilet # Voids 1 # Bowel Movements 1 - Exam Patient is comfortable Access working well Extremities trace edema. - Labs CBC & Chem 7: 02/17/23 17:15 02/17/23 05:48 Labs: Abnormal Lab Results - Last 24 Hours (Table) 02/17/23 Range/Units 17:15 RBC 2.90 L (4.30-5.90) m/uL Hgb 10.2 L (13.0-17.5) gm/dL Hct 33.9 L (39.0-53.0) % MCV 116.8 H (80.0-100.0) fL MCH 35.3 H (25.0-35.0) pg MCHC 30.2 L (31.0-37.0) g/dL RDW 16.6 H (11.5-15.5) % Plt Count 93 L (150-450) k/uL Lymphocytes # (Manual) 0.38 L (1.0-4.8) k/uL Macrocytosis Marked A Microbiology - Last 24 Hours (Table) 02/12/23 15:15 Blood Culture - Final Blood 02/12/23 15:30 Blood Culture - Final Blood Assessment and Plan Assessment: #1 ESRD, TTS schedule #2 right foot infection, concern for osteomyelitis #3 anemia with chronic kidney disease #4 metabolic bone disease #5 chronic systolic CHF with EF of 20-25% Plan: Continue dialysis on a Friday schedule
[2023-02-18 12:49] VITALS: BP 130/77
--- NOTE | 2023-02-18 13:06 | P.DS ---
Providers Date of admission: 02/12/23 13:37 Expected date of discharge: 02/18/23 Attending physician: Enriqueta Hickman DO Consults: 02/12/23 14:05 Consult Physician Urgent Consulting Provider: Raymundo Garcia Consult Reason/Comments: Dialysis Do you want consulting provider notified?: Yes 02/12/23 16:10 Consult Physician Routine Consulting Provider: Carlos Wiley Consult Reason/Comments: possible osteo Do you want consulting provider notified?: Yes 02/12/23 16:11 Consult Physician Routine Consulting Provider: Tj Lundberg Consult Reason/Comments: PAD Do you want consulting provider notified?: Yes Primary care physician: Franssico Pereira Hospital Course: Discharge Diagnosis: Chronic right foot wound with surrounding cellulitis.. Osteomyelitis ruled out. MRI unclear secondary to motion degraded exam and bone scan was negative ruling out osteomyelitis. Patient received IV antibiotics with Unasyn and vancomycin throughout hospitalization. Once osteomyelitis was completely ruled out from negative bone scan, and discussed with infectious disease recommending patient continue oral antibiotics with doxycycline 100 mg twice daily. Patient to follow up outpatient with PCP in 1-2 days and vascular surgery in 2 weeks. Chronic left calf ulcer and left second toe ulcer Peripheral arterial disease, mostly microvascular ESRD on HD T//FRI Bicytopenia HFrEF with EF of 20% HTN HLD Severe aortic stenosis Asymptomatic bradycardia Hospital Course: Patient is a 77-year-old male with end-stage renal disease on hemodialysis, systolic congestive heart failure, cardiomyopathy with ejection fraction 20-25%, hypertension, and dyslipidemia. He presented to the emergency room at the direction of his home care nurse for worsening wounds. He has been following with Dr. Crum but his moods have been worsening. On arrival to ER he was slightly hypotensive with a blood pressure 97/52 and a pulse of 59. Laboratory analysis included a CBC remarkable for hemoglobin 10.2 and platelets of 100 over 4 are at patient's baseline and a BNP remarkable for chloride 96, And 31, BUN 45, creatinine 4.71. Right foot x-ray showed soft tissue edema with possible osteomyelitis recommended triple phase bone scan, left tib-fib x-ray shows no acute osseous abnormalities. In the ER he was started on IV antibiotics with vancomycin and admitted under our services with consultation to nephrology, infectious disease, and vascular surgery were consulted. MRI right foot reported to be a motion degraded exam, however showing soft tissue edema throughout as well as plantar muscle edema typically seen with neuropathic changes but no convincing bone marrow replacement in the visualized portions of the foot to clearly indicate osteomyelitis at this time. Secondary to MRI being indeterminate on completely ruling out osteomyelitis secondary to motion degraded exam, a bone scan was then ordered by infectious disease. Nuclear bone scan was negative showing no convincing scintigraphic evidence for osteomyelitis. negative ruling out osteomyelitis. Patient received IV antibiotics with Unasyn and vancomycin throughout hospitalization infectious disease recommending patient continue oral antibiotics with doxycycline 100 mg twice daily. Medically, patient is stable for discharge home at this time once completion of dialysis today. Patient didn't have been made with [facility] to follow patient outpatient. Patient to continue with dialysis Tuesdays, , and Saturdays with next dialysis treatment session to be completed as previously scheduled on 02/20/23. 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 Physical exam: Vital signs reviewed and stable. General: Nontoxic, no distress and appears stated age. Derm: Skin warm and dry, normal coloration for ethnicity. Left lower extremity with chronic ulceration left calf and small ulcer acute distal tip of left second toe. Ulceration with surrounding erythema and edema to right foot second toe. Head: Atraumatic, normocephalic and symmetric. Eyes: EOMs intact, no lid lag, and anicteric sclera Mouth: no lip lesions, mucus membranes moist Cardiovascular: regular rate and rhythm with normal S1S2, no murmur and cap refill delayed. AV fistula left upper extremity bruit and thrill intact. Lungs: Respirations even, regular, and unlabored on room air. Lungs CTA bilaterally, no rhonchi, no rales, no wheezing, and no accessory muscle usage. Abdominal: soft, nontender to palpation, no guarding, no appreciable organomegaly Ext: ROM intact. No gross muscle atrophy, bilateral lower extremity edema and venous discoloration. no contractures Neuro: Speech clear, face symmetrical and CN II-XII grossly intact with no noted focal neuro deficits Psych: Alert and oriented to person, place, time, and situation. Appropriate and pleasant affect. A total of 35 minutes of time were spent preparing this complex discharge summary. Pt was discharged on 02/18/23 at 1 PM. Patient was seen independently by Nurse Practitioner. This document was prepared using [employer] dictation software. Please allow for errors in rn research while rare they do occur. Pedro Pinedo NP rendered care for this patient independently, reviewed the findings and plan as documented in the note above. I did not physically speak with or examine the patient on this date. Patient Condition at Discharge: Stable Plan - Discharge Summary Discharge Rx Participant: No New Discharge Prescriptions: New Doxycycline Hyclate 100 mg PO BID 10 Days #20 tab Continue Atorvastatin [Lipitor] 10 mg PO HS Cholecalciferol [Vitamin D3 (25 Mcg = 1000 Iu)] 50 mcg PO DAILY Aspirin 81 mg PO DAILY Folic Acid/Vit B Complex and C [Emy-Catalino Tablet] 0.8 mg PO DIRECTED Sevelamer Carbonate 1,600 mg PO PC-TID Magnesium Oxide [Mag-Ox] 400 mg PO DAILY #30 tab Lidocaine-Prilocaine Cream [Emla Cream 2.5%/2.5%] 1 applic TOPICAL DAILY PRN PRN Reason: ACCESS SITE BEFORE DIALYSIS Bumetanide [BUMEX] 4 mg PO DAILY oxyCODONE-APAP 5-325MG [Percocet 5-325 mg] 1 - 1.5 tab PO TID PRN PRN Reason: Pain PARoxetine [Paxil] 5 mg PO DAILY [place]-3/Dha/Epa/Fish Oil [Fish Oil 1,000 mg Softgel] 1 cap PO DAILY Isosorbide Mononitrate ER [Imdur] 30 mg PO DAILY rOPINIRole HCL [Requip] 2 mg PO BID Metoprolol Succinate (ER) [Toprol XL] 25 mg PO DAILY #30 tab Calcium Acetate [PhosLo] 667 mg PO PC-TID allopurinoL [Zyloprim] 100 mg PO DAILY Colchicine [Colcrys] 0.6 mg PO BID Discontinued Cephalexin [Keflex] 500 mg PO Q12HR Discharge Medication List Atorvastatin [Lipitor] 10 mg PO HS 01/29/22 [History] Cholecalciferol [Vitamin D3 (25 Mcg = 1000 Iu)] 50 mcg PO DAILY 01/29/22 [History] [place]-3/Dha/Epa/Fish Oil [Fish Oil 1,000 mg Softgel] 1 cap PO DAILY 01/29/22 [History] Isosorbide Mononitrate ER [Imdur] 30 mg PO DAILY 01/30/22 [History] Aspirin 81 mg PO DAILY 05/01/22 [History] rOPINIRole HCL [Requip] 2 mg PO BID 05/01/22 [History] Folic Acid/Vit B Complex and C [Emy-Catalino Tablet] 0.8 mg PO DIRECTED 06/03/22 [History] Sevelamer Carbonate 1,600 mg PO PC-TID 06/03/22 [History] Magnesium Oxide [Mag-Ox] 400 mg PO DAILY #30 tab 06/05/22 [Rx] Metoprolol Succinate (ER) [Toprol XL] 25 mg PO DAILY #30 tab 06/26/22 [Rx] Bumetanide [BUMEX] 4 mg PO DAILY 08/16/22 [History] Calcium Acetate [PhosLo] 667 mg PO PC-TID 08/16/22 [History] Lidocaine-Prilocaine Cream [Emla Cream 2.5%/2.5%] 1 applic TOPICAL DAILY PRN 08/16/22 [History] Colchicine [Colcrys] 0.6 mg PO BID 02/12/23 [History] PARoxetine [Paxil] 5 mg PO DAILY 02/12/23 [History] allopurinoL [Zyloprim] 100 mg PO DAILY 02/12/23 [History] oxyCODONE-APAP 5-325MG [Percocet 5-325 mg] 1 - 1.5 tab PO TID PRN 02/12/23 [History] Doxycycline Hyclate 100 mg PO BID 10 Days #20 tab 02/18/23 [Rx] Follow up Appointment(s)/Referral(s): [facility] [NON-STAFF] - 1 Week Fransisco Pereira MD [Primary Care Provider] - 02/21/23 1:00 pm Tj Lundberg DO [STAFF PHYSICIAN] - 2 Weeks [facility], [NON-STAFF] - 1 Week Patient Instructions/Handouts: Cellulitis (ED) Activity/Diet/Wound Care/Special Instructions: Activity: As tolerated. Take breaks as needed. Diet: Renal diet consisting of Heart healthy and carb consistent diet. Avoid salts, or foods with hidden salts such as canned or boxed foods and frozen dinners. Extra salt makes your heart work harder and traps the fluid in your body for longer. Special Instructions: Take all of your medications as directed and remember to keep all of your doctor's appointments and follow-up as needed. Thank you for allowing us to participate in your care, it was truly a pleasure having you for our patient!!! Discharge Disposition: HOME WITH HOME HEALTH SERVICES
[2023-02-18 13:10] VITALS: PULSE 62; RESP 16; TEMP 97
[2023-02-18] MEDS: CALCIUM ACETATE 667 MG TAB PO SCH ×2 (13:27→13:57)
[2023-02-18] MEDS: SEVELAMER 800 MG TAB PO SCH ×2 (13:28→13:57)
[2023-02-18] MEDS: HEPARIN SODIUM,PORCINE 5,000 UNIT/ML 1 ML VIAL SQ SCH (13:28)
[2023-02-18] MEDS: BUMETANIDE 1 MG TAB PO SCH (13:54)
[2023-02-18] MEDS: ASPIRIN 81 MG PO SCH (13:54)
[2023-02-18] MEDS: allopurinoL 100 MG TAB PO SCH (13:54)
[2023-02-18] MEDS: ISOSORBIDE MONONITRATE ER 30 MG TAB.ER.24H PO SCH (13:55)
[2023-02-18] MEDS: COLCHICINE 0.6 MG EACH PO SCH (13:55)
[2023-02-18] MEDS: METOPROLOL SUCCINATE (ER) 25 MG TAB.ER.24H PO SCH (13:56)
[2023-02-18] MEDS: PARoxetine 10 MG TAB PO SCH (13:56)
--- NOTE | 2023-02-18 17:37 | P.PN ---
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 On today's evaluation that is 02/18/2023, the patient denies any fever or any c hills, the patient is breathing comfortably , the patient denies chest pain or cough, the patient denies nausea and vomiting no abdominal pain and no diarrhea has been reported, the patient pain to the right foot has decreased in intensity Patient white count is 5.32, creatinine is 5.1 as of 02/17/2023, cultures has been negative so far sed rate of 30 CRP of 2.1 MRI was inconclusive blood culture has been negative so far, bone scan was negative for osteomyelitis Objective - Vital Signs Vital signs: Vital Signs Temp 97 F L 02/18/23 13:08 Pulse 62 02/18/23 13:08 Resp 16 02/18/23 13:08 BP 130/77 02/18/23 13:08 Pulse Ox 100 02/18/23 12:35 FiO2 Intake & Output 02/17/23 02/18/23 02/18/23 18:59 06:59 18:59 Intake Total 500 Output Total 2700 Balance -2200 Weight 70 kg 70 kg Intake: Hemodialysis 500 Output: Hemodialysis 2700 Other: Voiding Method Toilet Toilet Toilet # Voids 1 # Bowel Movements 1 - Exam GENERAL DESCRIPTION: Elderly male lying in bed in no distress RESPIRATORY SYSTEM: Unlabored breathing , decreased breath sounds at bases HEART: S1 S2 regular rate and rhythm ,no loud murmurs ABDOMEN: Soft , no tenderness EXTREMITIES: Right foot dorsum did have an area of erythema which is tender to touch no open wound no drainage - Labs CBC & Chem 7: 02/17/23 17:15 02/17/23 05:48 Labs: Abnormal Lab Results - Last 24 Hours (Table) 02/17/23 Range/Units 17:15 RBC 2.90 L (4.30-5.90) m/uL Hgb 10.2 L (13.0-17.5) gm/dL Hct 33.9 L (39.0-53.0) % MCV 116.8 H (80.0-100.0) fL MCH 35.3 H (25.0-35.0) pg MCHC 30.2 L (31.0-37.0) g/dL RDW 16.6 H (11.5-15.5) % Plt Count 93 L (150-450) k/uL Lymphocytes # (Manual) 0.38 L (1.0-4.8) k/uL Macrocytosis Marked A Microbiology - Last 24 Hours (Table) 02/12/23 15:15 Blood Culture - Final Blood 02/12/23 15:30 Blood Culture - Final Blood Assessment and Plan (1) Abnormal x-ray of bone Current Visit: Yes Status: Acute Code(s): R93.7 - ABNORMAL FINDINGS ON DIAGNOSTIC IMAGING OF PRT MS SYS SNOMED Code(s): 639078696 (2) Osteomyelitis Current Visit: Yes Status: Acute Code(s): M86.9 - OSTEOMYELITIS, UNSPECIFIED SNOMED Code(s): 13107653 Plan: 1patient presented to hospital with swelling erythema on the dorsal right of the right foot with no ulceration however did have abnormal plain x-ray con cerning for possible osteomyelitis which is unlikely but not entirely excluded. 2patient did have a history of infection of the left second toe tip with dried out wound but no significant swelling or redness on the drainage 3MRI was inconclusive patient ESR is not significantly elevated, currently waiting for bone scan to better define underlying abnormality seen on the x-ray. 4patient bone scan was negative for osteomyelitis we will discontinue vancomycin and given short course of oral doxycycline and a close outpatient follow-up Dictation was produced using [employer] dictation software. please excuse any grammatical, word or spelling errors. Time with Patient: Less than 30
[2023-02-18] MEDS ORDERED: VANCOMYCIN 1,250 MG in SODIUM CHLORIDE 0.9% 250 ML IVPB ONE (18:00)
== END 2023-02-18 17:45 | disposition home health service (06) | DRG 299 ==
LOC: EC 10:51 → 5NMEDONC 13:37
PROVIDERS: ADMIT Internal Medicine; ATTEND Internal Medicine
PROC: 5A1D70Z Performance of Urinary Filtration, Intermittent, Less than 6 Hours Per Day (ICD-10-PCS; principal; 2023-02-18)
DX: E11.51 Type 2 diabetes mellitus with diabetic peripheral angiopathy without gangrene (principal); N18.6 End stage renal disease; I13.2 Hypertensive heart and chronic kidney disease with heart failure and with stage 5 chronic kidney disease, or end stage renal disease; I42.9 Cardiomyopathy, unspecified; I50.22 Chronic systolic (congestive) heart failure; L03.115 Cellulitis of right lower limb; L97.229 Non-pressure chronic ulcer of left calf with unspecified severity; Z94.0 Kidney transplant status; E11.621 Type 2 diabetes mellitus with foot ulcer; D63.1 Anemia in chronic kidney disease; E11.22 Type 2 diabetes mellitus with diabetic chronic kidney disease; E11.42 Type 2 diabetes mellitus with diabetic polyneuropathy; I08.3 Combined rheumatic disorders of mitral, aortic and tricuspid valves; L97.529 Non-pressure chronic ulcer of other part of left foot with unspecified severity; E83.9 Disorder of mineral metabolism, unspecified; E11.628 Type 2 diabetes mellitus with other skin complications; I70.245 Atherosclerosis of native arteries of left leg with ulceration of other part of foot; I70.25 Atherosclerosis of native arteries of other extremities with ulceration; Z79.84 Long term (current) use of oral hypoglycemic drugs; D69.6 Thrombocytopenia, unspecified; Z86.16 Personal history of COVID-19; Z99.2 Dependence on renal dialysis; I95.9 Hypotension, unspecified; E78.5 Hyperlipidemia, unspecified; E87.5 Hyperkalemia; R00.1 Bradycardia, unspecified; Z79.2 Long term (current) use of antibiotics; Z79.899 Other long term (current) drug therapy; Z79.82 Long term (current) use of aspirin; Z82.3 Family history of stroke; Z86.73 Personal history of transient ischemic attack (TIA), and cerebral infarction without residual deficits; Z87.891 Personal history of nicotine dependence; Z71.3 Dietary counseling and surveillance; Z88.8 Allergy status to other drugs, medicaments and biological substances
CPT/HCPCS: 36415; 71046; 78315; 80048; 80053; 80202; 82565; 83605; 83735; 85025; 85027; 85384; 85610; 85652; 85730; 86140; 86706; 87040; 87340; 87636; 90935; 93922; 96365; 96366; 99285

== ENCOUNTER 2023-02-21 10:50 | Emergency (ER) | payer MEDICARE, OTHER ==
[2023-02-21] MEDS ORDERED: oxyCODONE-APAP 5-325MG 1 EACH TAB PO STA (11:25)
--- NOTE | 2023-02-21 11:34 | ED ---
Extremity Problem HPI - General Chief complaint: Extremity Problem,Nontraumatic Stated complaint: Right leg pain Time Seen by Provider: 02/21/23 11:11 Source: patient, family, RN notes reviewed Mode of arrival: wheelchair Limitations: no limitations - History of Present Illness Initial comments: This is a 77-year-old male who presents to the emergency department for an infection to the right foot. Patient was just discharged from this facility 3 days ago for this infection and started on a course of doxycycline. States that he [facility] with [facility] and they were concerned that the infection seemed worse, and he was instructed to come to the emergency department. They were also concerned that the right leg looked more pale than the left leg and were concerned about adequate blood flow. Patient states that this is increasingly painful. Currently treating his pain with his prescription for oxycodone. Denies any fevers or chills. Denies any fevers, chills, sore throat, cough, dyspnea, chest pain, palpitations, abdominal pain, nausea, vomiting, diarrhea, back pain, or headaches. MD Complaint: extremity pain - Related Data Home Medications Medication Instructions Recorded Confirmed Atorvastatin [Lipitor] 10 mg PO HS 01/29/22 02/12/23 Cholecalciferol [Vitamin D3 (25 50 mcg PO DAILY 01/29/22 02/12/23 Mcg = 1000 Iu)] [place]-3/Dha/Epa/Fish Oil [Fish Oil 1 cap PO DAILY 01/29/22 02/12/23 1,000 mg Softgel] Isosorbide Mononitrate ER [Imdur] 30 mg PO DAILY 01/30/22 02/12/23 Aspirin 81 mg PO DAILY 05/01/22 02/12/23 rOPINIRole HCL [Requip] 2 mg PO BID 05/01/22 02/12/23 Folic Acid/Vit B Complex and C 0.8 mg PO DIRECTED 06/03/22 02/12/23 [Emy-Catalino Tablet] Sevelamer Carbonate 1,600 mg PO PC-TID 06/03/22 02/12/23 Bumetanide [BUMEX] 4 mg PO DAILY 08/16/22 02/12/23 Calcium Acetate [PhosLo] 667 mg PO PC-TID 08/16/22 02/12/23 Lidocaine-Prilocaine Cream [Emla 1 applic TOPICAL DAILY PRN 08/16/22 02/12/23 Cream 2.5%/2.5%] Colchicine [Colcrys] 0.6 mg PO BID 02/12/23 02/12/23 PARoxetine [Paxil] 5 mg PO DAILY 02/12/23 02/12/23 allopurinoL [Zyloprim] 100 mg PO DAILY 02/12/23 02/12/23 oxyCODONE-APAP 5-325MG [Percocet 1 - 1.5 tab PO TID PRN 02/12/23 02/12/23 5-325 mg] Previous Rx's Medication Instructions Recorded Magnesium Oxide [Mag-Ox] 400 mg PO DAILY #30 tab 06/05/22 Metoprolol Succinate (ER) [Toprol 25 mg PO DAILY #30 tab 06/26/22 XL] Doxycycline Hyclate 100 mg PO BID 10 Days #20 tab 02/18/23 clindamycin HCL [Cleocin] 450 mg PO Q8H 7 Days #63 cap 02/21/23 Allergies Allergy/AdvReac Type Severity Reaction Status Date / Time enalaprilat [From Vasotec] Allergy Swelling Verified 02/21/23 11:03 lisinopril Allergy Swelling Verified 02/21/23 11:03 gabapentin AdvReac Hallucinati Verified 02/21/23 11:03 ons/Nightma res Review of Systems ROS Statement: Those systems with pertinent positive or pertinent negative responses have been documented in the HPI. ROS Other: All systems not noted in ROS Statement are negative. 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%, history of renal chest and 2 in 1992 from a donor and in 1995 from a living donor, history of neck fracture, history of Covid 19 infection, severe aortic stenosis, anemia of chronic disease.neuropathy History of Any Multi-Drug Resistant Organisms: None Reported Past Surgical History: Appendectomy Additional Past Surgical History / Comment(s): Kidney transplant times 07/28/1992 and 1995 and the patient has a fistula in the left upper extremity Past Anesthesia/Blood Transfusion Reactions: No Reported Reaction Past Psychological History: No Psychological Hx Reported Smoking Status: Former smoker Past Alcohol Use History: Rare Past Drug Use History: None Reported - Past Family History Mother Family Medical History: Cancer Additional Family Medical History / Comment(s): pancreatic cancer Father Family Medical History: CVA/TIA Additional Family Medical History / Comment(s): father of stroke , mother pancreatic cancer General Exam Limitations: no limitations General appearance: alert, in no apparent distress Head exam: Present: atraumatic, normocephalic, normal inspection Respiratory exam: Present: normal lung sounds bilaterally. Absent: respiratory distress, wheezes, rales, rhonchi, stridor Cardiovascular Exam: Present: regular rate, normal rhythm, normal heart sounds. Absent: systolic murmur, diastolic murmur, rubs, gallop, clicks Extremities exam: Present: other (Erythema and tenderness to the dorsal aspect of the right forefoot and the right middle toe. Capillary refill <2 seconds. ) Neurological exam: Present: alert, oriented X3, CN II-XII intact Psychiatric exam: Present: normal affect, normal mood Course Vital Signs 02/21/23 02/21/23 11:01 14:38 Temperature 98.4 F Pulse Rate 58 L 78 Respiratory 20 18 Rate Blood Pressure 122/79 121/66 O2 Sat by Pulse 99 Oximetry Medical Decision Making - Medical Decision Making This is a 77-year-old male who presents to the emergency department for right foot pain. Was pt. sent in by a medical professional or institution? @ -No Did you speak to anyone other than the patient for history? @ -No Did you review nursing and triage notes? @ -Yes, and I agree, it is accurate with regards to the patient's symptoms. Were old charts reviewed? @ -Yes, discharge summary from 02/18/23 at this facility, discussing that osteomyelitis had been ruled out and the patient was discharged home with a prescription for doxycycline. Differential Diagnosis? @ -Differential Foot Pain: Fracture, contusion, cellulitis, abscess, osteomyelitis, DVT, arterial occlusion, this is not meant to be an all-inclusive list. EKG interpreted by me (3pts min.)? @ -Not obtained X-rays interpreted by me (1pt min.)? @ -X-ray of the right foot obtained. My interpretation identifies no evidence of subcutaneous gas formation. CT interpreted by me (1pt min.)? @ -Not obtained U/S interpreted by me (1pt. min.)? @ -Not obtained What testing was considered but not performed? (CT, X-rays, U/S, labs)? Why? @ -None What meds were considered but not given? Why? @ -None Did you discuss the management of the patient with other professionals? @ -Yes, Dr. Ferrara, who did not believe that the patient needed to be readmitted. Did you reconcile home meds? @ -No Was smoking cessation discussed for >3mins.? @ -No Was critical care preformed (if so, how long)? @ -No Were there social determinants of health that impacted care today? How? (Homelessness, low income, unemployed, alcoholism, drug addiction, transportation, low edu. Level, literacy, decrease access to med. care, [place] [facility], rehab)? @ -No Was there de-escalation of care discussed even if they declined? (Discuss DNR or withdrawal of care, Hospice)? @ -No What co-morbidities impacted this encounter? (DM, HTN, Smoking, COPD, CAD, Cancer, CVA, Hep., AIDS, mental health diagnosis, sleep apnea, morbid obesity)? @ -PAD, renal failure Was patient admitted / discharged? @ -Discharged. Lab work obtained and found to be relatively nonactionable, with values being similar to prior. Renal function is consistent with patient's history of renal failure. X-ray of the right foot obtained revealing no evidence of subcutaneous gas formation or other acute process. The presentation was fairly unremarkable. I spoke with Dr. Ferrara with [facility], whose name had been on the discharge summary from his admission 3 days ago. However, he advised that he had just signed the chart and it was actually DAVIAN Vasquez, who had evaluated the patient. She was unfortunately not available that day to come look at the patient to get her opinion on if it had changed substantially or not since his discharge. Dr. Ferrara however advised that based on his lab work and our examination, he did not think that he would benefit from admission and advised that there is nothing else that they would do. Additionally, discussed with the patient that given his peripheral arterial disease, it is going to be difficult for this area to heal regardless. He does have a follow-up appt with Dr. Lundberg, vascular surgery, next week, where this can be discussed. Dr. Lowery also evaluated the patient at bedside. The area of erythema was outlined with a skin marker. We switched his antibiotic from doxycycline to clindamycin. He'll otherwise follow up with his PCP and was given strict return parameters. Undiagnosed new problem with uncertain prognosis? @ -None Drug Therapy requiring intensive monitoring for toxicity (Heparin, Nitro, Insulin, Cardizem)? @ -None Were any procedures done? @ -None Diagnosis/symptom? @ -Cellulitis right foot Acute, or Chronic, or Acute on Chronic? @ -Acute Uncomplicated (without systemic symptoms) or Complicated (systemic symptoms)? @ -Uncomplicated Side effects of treatment? @ -None Exacerbation, Progression, or Severe Exacerbation] @ -Stable Poses a threat to life or bodily function? @ -No Return precautions reviewed in depth, the patient is instructed to return to the emergency department with any new, worsening, or concerning symptoms. Patient verbalized understanding. This case was discussed in detail with the attending ED physician, Dr. Lowery. Presentation, findings, and treatment plan discussed in detail as well. - Lab Data Result diagrams: 02/21/23 11:42 02/21/23 11:42 Lab Results 02/21/23 02/21/23 02/21/23 Range/Units 11:42 11:42 11:42 WBC 3.7 L (3.8-10.6) k/uL RBC 2.79 L (4.30-5.90) m/uL Hgb 10.2 L (13.0-17.5) gm/dL Hct 31.5 L (39.0-53.0) % MCV 112.9 H (80.0-100.0) fL MCH 36.5 H (25.0-35.0) pg MCHC 32.3 (31.0-37.0) g/dL RDW 16.6 H (11.5-15.5) % Plt Count 72 L (150-450) k/uL MPV 13.9 Neutrophils % 69 % Lymphocytes % 13 % Monocytes % 12 % Eosinophils % 2 % Basophils % 1 % Neutrophils # 2.6 (1.3-7.7) k/uL Lymphocytes # 0.5 L (1.0-4.8) k/uL Monocytes # 0.5 (0-1.0) k/uL Eosinophils # 0.1 (0-0.7) k/uL Basophils # 0.0 (0-0.2) k/uL Manual Slide Review Performed Hypochromasia Slight Anisocytosis Slight Macrocytosis Marked A Sodium 138 (137-145) mmol/L Potassium 4.5 (3.5-5.1) mmol/L Chloride 96 L (98-107) mmol/L Carbon Dioxide 27 (22-30) mmol/L Anion Gap 15 mmol/L BUN 54 H (9-20) mg/dL Creatinine 5.54 H (0.66-1.25) mg/dL Est GFR (CKD-EPI)AfAm 10 (>60 ml/min/1.73 sqM) Est GFR (CKD-EPI)NonAf 9 (>60 ml/min/1.73 sqM) Glucose 93 (74-99) mg/dL Plasma Lactic Acid Ryan 1.1 (0.7-2.0) mmol/L Calcium 8.1 L (8.4-10.2) mg/dL Total Bilirubin 1.1 (0.2-1.3) mg/dL AST 45 (17-59) U/L ALT 28 (4-49) U/L Alkaline Phosphatase 154 H (38-126) U/L C-Reactive Protein 1.5 H (<1.0) mg/dL Total Protein 7.3 (6.3-8.2) g/dL Albumin 3.8 (3.5-5.0) g/dL - Radiology Data Radiology results: report reviewed, image reviewed Disposition Clinical Impression: Cellulitis of right foot Disposition: HOME SELF-CARE Instructions (If sedation given, give patient instructions): Cellulitis (ED) Additional Instructions: Return to the emergency department with any new, worsening, or concerning symptoms. Stop taking the doxycycline and start taking the clindamycin as prescribed for 7 days. Monitor the area of redness in the marked area. Follow up with your primary care provider in 1-2 days. Prescriptions: clindamycin HCL [Cleocin] 450 mg PO Q8H 7 Days #63 cap Is patient prescribed a controlled substance at d/c from ED?: No Referrals: Franissco Pereira MD [Primary Care Provider] - 1-2 days
[2023-02-21 11:54] LABS: Anisocytosis Slight; Basophils % (A) 1 %; Eosinophils # (A) 0.1 k/uL (0-0.7); Eosinophils % (A) 2 %; HCT 31.5 % (39.0-53.0); HGB 10.2 gm/dL (13.0-17.5); Hypochromasia Slight; Lymphocytes # (A) 0.5 k/uL (1.0-4.8); Lymphocytes % (A) 13 %; MCH 36.5 pg (25.0-35.0); MCHC 32.3 g/dL (31.0-37.0); MCV 112.9 fL (80.0-100.0); Macrocytosis Marked; Mean Platelet Volume 13.9; Monocytes # (A) 0.5 k/uL (0-1.0); Monocytes % (A) 12 %; Neutrophils # (A) 2.6 k/uL (1.3-7.7); Neutrophils % (A) 69 %; RBC 2.79 m/uL (4.30-5.90); RDW 16.6 % (11.5-15.5); WBC 3.7 k/uL (3.8-10.6)
[2023-02-21 12:17] LABS: ALT 28 U/L (4-49); AST 45 U/L (17-59); African American GFR (CKD) 10 (>60 ml/min/1.73 sqM); Albumin 3.8 g/dL (3.5-5.0); Alkaline Phosphatase 154 U/L (38-126); Anion Gap 15 mmol/L; Blood Urea Nitrogen 54 mg/dL (9-20); C Reactive Protein 1.5 mg/dL (<1.0); Calcium 8.1 mg/dL (8.4-10.2); Carbon Dioxide 27 mmol/L (22-30); Chloride 96 mmol/L (98-107); Glucose 93 mg/dL (74-99); Non-African American GFR(CKD) 9 (>60 ml/min/1.73 sqM); Potassium 4.5 mmol/L (3.5-5.1); Sodium 138 mmol/L (137-145); Total Bilirubin 1.1 mg/dL (0.2-1.3); Total Protein 7.3 g/dL (6.3-8.2)
--- NOTE | 2023-02-21 12:32 | XR ---
EXAMINATION TYPE: XR foot complete RT DATE OF EXAM: 02/21/2023 CLINICAL HISTORY: pain TECHNIQUE: Frontal, lateral and oblique images of the right foot are obtained. COMPARISON: None. FINDINGS: There is no acute fracture/dislocation evident. The joint spaces appear within normal mantilla its. Vascular calcifications are noted. Plantar calcaneal spur identified. IMPRESSION: There is no acute fracture or dislocation. ICD 10 NO FRACTURE, INITIAL EVALUATION
[2023-02-21 13:48] LABS: Platelet Count 72 k/uL (150-450)
[2023-02-21] MEDS ORDERED: cefTRIAXone IN SWFI 1,000 MG/10 ML SYRINGE IVP STA (13:48)
[2023-02-21 15:27] VITALS: BP 121/66; PULSE 78; RESP 18; TEMP 98.4
== END 2023-02-21 14:39 | disposition home or self-care (01) ==
LOC: EC 10:50
DX: L03.115 Cellulitis of right lower limb (principal); I50.9 Heart failure, unspecified; Z79.82 Long term (current) use of aspirin; Z79.899 Other long term (current) drug therapy; Z88.8 Allergy status to other drugs, medicaments and biological substances; Z99.2 Dependence on renal dialysis; Z87.891 Personal history of nicotine dependence; Z94.0 Kidney transplant status
CPT/HCPCS: 36415; 80053; 83605; 85025; 86140; 73630; 99284; 96374; J0696

== ENCOUNTER → 2023-04-09 | Outpatient (CLI) | payer MEDICARE, OTHER ==
--- NOTE | 2023-04-09 15:26 | CT ---
EXAMINATION TYPE: CT angio abd aorta w/Runoff CT DLP: 1788.1 mGycm, Automated exposure control for dose reduction was used. 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 3-D reconstructed images and maximum intensity projection images were obtained. CT angio abd aorta w /Runoff CT Contrast: Contrast used:100 mL of Isovue 370 with IV Contrast, Oral contrast used: None FINDINGS: CTA Abdomen and pelvis: No evidence for intramural hematoma on noncontrast imaging. The superior calc ifications of the arterial vascular. No evidence for intimal flap to suggest dissection. The origins of the abdominal aorta including the celiac axis, superior mesenteric artery the inferior mesenteric artery are intact. There is a transplant kidney with its artery intact. The jamul kidneys are not vi sualized may be atrophic or surgically absent. The common iliac arteries and external iliac arteries are patent. There is scattered atherosclerotic disease. CTA Lower extremities: Right: The common femoral and superficial femoral arteries are patent. The popliteal artery is patent . Scattered atherosclerosis throughout the arterial vasculature of the thigh. Poor visualization of the anterior and posterior tibial artery secondary to extensive atherosclerotic plaque. Left: The common femoral and superficial femoral arteries are patent. The popliteal artery is patent. Scattered atherosclerosis throughout the arterial vasculature of the thigh. Poor visualization of th e anterior and posterior tibial artery secondary to extensive atherosclerotic plaque. LOWER CHEST: The heart is enlarged for size. There is coronary artery calcifications. Mitral valve an nular and aortic valve leaflet calcifications. Moderate right and small left pleural effusion. No foc al consolidation or pneumothorax. LIVER: Unremarkable GALLBLADDER AND BILE DUCTS: Gallbladder lawrence appears prominent. No gallstones identified. PANCREAS: Unremarkable. SPLEEN: Unremarkable. ADRENAL GLANDS: Unremarkable. KIDNEYS AND URETERS: Atrophic jamul kidneys and/or surgically absent with left lower pelvis transpla nt kidney without evidence of hydronephrosis. PELVIS BLADDER: Unremarkable REPRODUCTIVE: Unremarkable. ABDOMEN & PELVIS STOMACH AND BOWEL: No evidence of bowel obstruction. Scattered colonic diverticula are present. PERITONEUM: No evidence of pneumoperitoneum or free fluid. MUSCULOSKELETAL: Moderate disc degeneration changes are present throughout the thoracolumbar spine. LYMPH NODES: No gross evidence for lymphadenopathy. SOFT TISSUE/ABDOMINAL WALL: Unremarkable IMPRESSION 1. Poor visualization of the arterial vasculature of the legs due to extensive atherosclerotic plaqu e. The vasculature of the legs extending from the common femoral artery to the popliteal artery are p atent. Consider angiogram in the [employer] for complete evaluation of the legs vessels given extensive atherosclerosis limiting evaluation. 2. No evidence for abdominal aortic aneurysm. The major vessels of the abdominal aorta are patent. T here is suspected surgically absent versus atrophic bilateral kidneys. 3. Severe atherosclerotic disease involving abdominal aorta and lower extremity vasculature. 4. Prominent gallbladder wall correlate for signs and symptoms of right upper quadrant pain. Previou sly this was markedly distended on 06/03/2022. Findings could be due to underdistention.
== END | disposition home or self-care (01) ==
LOC: RADCTMAIN 13:23
PROVIDERS: ATTEND Surgery
DX: I70.223 Atherosclerosis of native arteries of extremities with rest pain, bilateral legs (principal)
CPT/HCPCS: 75635; 36415; Q9967

== ENCOUNTER 2023-06-28 06:45 | Emergency (ER) | payer MEDICARE, OTHER ==
[2023-06-28 07:09] VITALS: RESP 18; TEMP 97.6
--- NOTE | 2023-06-28 07:09 | ED ---
Extremity Problem HPI - General Chief complaint: Extremity Problem,Nontraumatic Stated complaint: ISSUES WITH PORT Time Seen by Provider: 06/28/23 06:52 Source: patient, RN notes reviewed Mode of arrival: wheelchair Limitations: no limitations - History of Present Illness Initial comments: 77-year-old male presents emergency Department chief complaint of left arm. Bleeding. Patient states that he's had a few episodes the bleeding then subsides. He states that it happens typically after he has been coughing. He has 2 areas on his left arm. That leads he states that he is able to soak through comfort, sheets, mattress pad he said there was a significant amount of bleeding. Patient denies any blood thinners. - Related Data Home Medications Medication Instructions Recorded Confirmed Atorvastatin [Lipitor] 10 mg PO HS 01/29/22 03/04/23 Cholecalciferol [Vitamin D3 (25 50 mcg PO DAILY 01/29/22 03/04/23 Mcg = 1000 Iu)] [place]-3/Dha/Epa/Fish Oil [Fish Oil 1 cap PO DAILY 01/29/22 03/04/23 1,000 mg Softgel] Isosorbide Mononitrate ER [Imdur] 30 mg PO DAILY 01/30/22 03/04/23 Aspirin 81 mg PO DAILY 05/01/22 03/04/23 rOPINIRole HCL [Requip] 2 mg PO BID 05/01/22 03/04/23 Folic Acid/Vit B Complex and C 0.8 mg PO DIRECTED 06/03/22 03/04/23 [Emy-Catalino Tablet] Sevelamer Carbonate 1,600 mg PO PC-TID 06/03/22 03/04/23 Bumetanide [BUMEX] 4 mg PO DAILY 08/16/22 03/04/23 Calcium Acetate [PhosLo] 667 mg PO PC-TID 08/16/22 03/04/23 Lidocaine-Prilocaine Cream [Emla 1 applic TOPICAL DAILY PRN 08/16/22 03/04/23 Cream 2.5%/2.5%] Colchicine [Colcrys] 0.6 mg PO BID 02/12/23 03/04/23 PARoxetine [Paxil] 5 mg PO DAILY 02/12/23 03/04/23 allopurinoL [Zyloprim] 100 mg PO DAILY 02/12/23 03/04/23 oxyCODONE-APAP 5-325MG [Percocet 1 - 1.5 tab PO TID PRN 02/12/23 03/04/23 5-325 mg] Previous Rx's Medication Instructions Recorded Magnesium Oxide [Mag-Ox] 400 mg PO DAILY #30 tab 06/05/22 Metoprolol Succinate (ER) [Toprol 25 mg PO DAILY #30 tab 06/26/22 XL] clindamycin HCL [Cleocin] 450 mg PO Q8H 7 Days #63 cap 02/21/23 Allergies Allergy/AdvReac Type Severity Reaction Status Date / Time enalaprilat [From Vasotec] Allergy Swelling Verified 06/28/23 06:50 lisinopril Allergy Swelling Verified 06/28/23 06:50 gabapentin AdvReac Hallucinati Verified 06/28/23 06:50 ons/Nightma res Review of Systems ROS Statement: Those systems with pertinent positive or pertinent negative responses have been documented in the HPI. ROS Other: All systems not noted in ROS Statement are negative. 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%, history of renal transplant and 2 in 1992 from a donor and in 1995 from a living donor, history of neck fracture, history of Covid 19 infection, severe aortic stenosis, anemia of chronic disease neuropathy, dialysis Friday History of Any Multi-Drug Resistant Organisms: None Reported Past Surgical History: Appendectomy Additional Past Surgical History / Comment(s): Kidney transplant in 07/28/1992 and 1995 and the patient has a fistula in the left upper extremity Past Anesthesia/Blood Transfusion Reactions: No Reported Reaction Past Psychological History: No Psychological Hx Reported Smoking Status: Former smoker Past Alcohol Use History: Rare Past Drug Use History: None Reported - Past Family History Mother Family Medical History: Cancer Additional Family Medical History / Comment(s): pancreatic cancer Father Family Medical History: CVA/TIA Additional Family Medical History / Comment(s): father of stroke General Exam Limitations: no limitations General appearance: alert, in no apparent distress Head exam: Present: atraumatic, normocephalic, normal inspection Respiratory exam: Present: normal lung sounds bilaterally. Absent: respiratory distress, wheezes, rales, rhonchi, stridor Cardiovascular Exam: Present: regular rate, normal rhythm, normal heart sounds. Absent: systolic murmur, diastolic murmur, rubs, gallop, clicks GI/Abdominal exam: Present: soft, normal bowel sounds. Absent: distended, tenderness, guarding, rebound, rigid Extremities exam: Present: other (Left arm upper fistula Blood noted, there is recent dry blood, no active bleeding) Course Vital Signs 06/28/23 06:49 Temperature 97.6 F Pulse Rate 66 Respiratory 18 Rate Blood Pressure 109/63 O2 Sat by Pulse 99 Oximetry Medical Decision Making - Medical Decision Making Was pt. sent in by a medical professional or institution ([facility], [employer], urgent care, hospital, or alf...) When possible be specific @ -No Did you speak to anyone other than the patient for history (EMS, parent, family, police, friend...)? What history was obtained from this source @ -No Did you review nursing and triage notes (agree or disagree)? Why? @ -I reviewed and agree with nursing and triage notes Were old charts reviewed (outside hosp., previous admission, EMS record, old EKG, old radiological studies, urgent care reports/EKG's, alf records)? Report findings @ -No old charts were reviewed Differential Diagnosis (chest pain, altered mental status, abdominal pain women, abdominal pain men, vaginal bleeding, weakness, fever, dyspnea, syncope, headache, dizziness, GI bleed, back pain, seizure, CVA, palpatations, mental health, musculoskeletal)? @ -. Fistula failure, hemorrhage EKG interpreted by me (3pts min.). @ -None X-rays interpreted by me (1pt min.). @ -None done CT interpreted by me (1pt min.). @ -None done U/S interpreted by me (1pt. min.). @ -None done What testing was considered but not performed or refused? (CT, X-rays, U/S, labs)? Why? @ -None What meds were considered but not given or refused? Why? @ -None Did you discuss the management of the patient with other professionals (professionals i.e. [facility], [employer], lab, RT, psych nurse, social sciences professor, dope heater, teacher, inshore undersea warfare officer, pillowcase cleaner)? Give summary @ -Vascular Dr. Lundberg who came evaluated the patient's and assessed patient fistula which started bleeding. He then sutured the area bleeding using a [id number] suture. Was smoking cessation discussed for >3mins.? @ -No Was critical care preformed (if so, how long)? @ -No Were there social determinants of health that impacted care today? How? (Homelessness, low income, unemployed, alcoholism, drug addiction, transportation, low edu. Level, literacy, decrease access to med. care, group home, rehab)? @ -No Was there de-escalation of care discussed even if they declined (Discuss DNR or withdrawal of care, Hospice)? DNR status @ -No What co-morbidities impacted this encounter? (DM, HTN, Smoking, COPD, CAD, Canc er, CVA, ARF, Chemo, Hep., AIDS, mental health diagnosis, sleep apnea, morbid obesity)? @ -None Was patient admitted / discharged? Hospital course, mention meds given and route, prescriptions, significant lab abnormalities, going to OR and other pertinent info. @ -Discharge patient after studies at patient's baseline no significant hyperkalemia patient had bleeding from the fistula which was sutured by vascular surgeon. Patient will follow-up in office patient was discharged to dialysis center Undiagnosed new problem with uncertain prognosis? @ -No Drug Therapy requiring intensive monitoring for toxicity (Heparin, Nitro, Insulin, Cardizem)? @ -No Were any procedures done? @ -No Diagnosis/symptom? @ -Fistula hemorrhage Acute, or Chronic, or Acute on Chronic? @ -Acute Uncomplicated (without systemic symptoms) or Complicated (systemic symptoms)? @ -Uncomplicated Side effects of treatment? @ -No Exacerbation, Progression, or Severe Exacerbation? @ -No Poses a threat to life or bodily function? How? (Chest pain, USA, MS, pneumonia, PE, COPD, DKA, ARF, appy, cholecystitis, CVA, Diverticulitis, Homicidal, Bain icidal, threat to staff... and all critical care pts) @ -No - Lab Data Result diagrams: 06/28/23 09:17 06/28/23 09:17 Lab Results 06/28/23 06/28/23 06/28/23 Range/Units 09:17 09:17 09:17 WBC 4.4 (3.8-10.6) k/uL RBC 3.10 L (4.30-5.90) m/uL Hgb 11.0 L (13.0-17.5) gm/dL Hct 34.8 L (39.0-53.0) % MCV 112.3 H (80.0-100.0) fL MCH 35.5 H (25.0-35.0) pg MCHC 31.6 (31.0-37.0) g/dL RDW 15.7 H (11.5-15.5) % Plt Count 108 L (150-450) k/uL MPV 11.1 Neutrophils % 74 % Lymphocytes % 11 % Monocytes % 9 % Eosinophils % 3 % Basophils % 1 % Neutrophils # 3.2 (1.3-7.7) k/uL Lymphocytes # 0.5 L (1.0-4.8) k/uL Monocytes # 0.4 (0-1.0) k/uL Eosinophils # 0.1 (0-0.7) k/uL Basophils # 0.0 (0-0.2) k/uL Manual Slide Review Performed Hypochromasia Moderate Hypochromasia (manual) Present Macrocytosis Marked A PT 12.0 (10.0-12.5) sec INR 1.1 (<1.2) APTT 27.7 (22.0-30.0) sec Sodium 143 (137-145) mmol/L Potassium 4.6 (3.5-5.1) mmol/L Chloride 100 (98-107) mmol/L Carbon Dioxide 26 (22-30) mmol/L Anion Gap 17 mmol/L BUN 58 H (9-20) mg/dL Creatinine 5.00 H (0.66-1.25) mg/dL Est GFR (CKD-EPI)AfAm 12 (>60 ml/min/1.73 sqM) Est GFR (CKD-EPI)NonAf 10 (>60 ml/min/1.73 sqM) Glucose 91 (74-99) mg/dL Calcium 7.8 L (8.4-10.2) mg/dL Total Bilirubin 1.0 (0.2-1.3) mg/dL AST 35 (17-59) U/L ALT 21 (4-49) U/L Alkaline Phosphatase 159 H (38-126) U/L Total Protein 7.9 (6.3-8.2) g/dL Albumin 4.3 (3.5-5.0) g/dL Disposition Clinical Impression: Hemorrhage of arteriovenous fistula Disposition: HOME SELF-CARE Condition: Stable Additional Instructions: Please return to the Emergency Department if symptoms worsen or any other concerns. Is patient prescribed a controlled substance at d/c from ED?: No Referrals: Fransisco Pereira MD [Primary Care Provider] - 1-2 days Time of Disposition: 10:27
[2023-06-28 09:26] LABS: Basophils % (A) 1 %; Eosinophils # (A) 0.1 k/uL (0-0.7); Eosinophils % (A) 3 %; HCT 34.8 % (39.0-53.0); Hypochromasia Moderate; Lymphocytes # (A) 0.5 k/uL (1.0-4.8); Lymphocytes % (A) 11 %; MCH 35.5 pg (25.0-35.0); MCHC 31.6 g/dL (31.0-37.0); MCV 112.3 fL (80.0-100.0); Macrocytosis Marked; Mean Platelet Volume 11.1; Monocytes # (A) 0.4 k/uL (0-1.0); Monocytes % (A) 9 %; Neutrophils # (A) 3.2 k/uL (1.3-7.7); Neutrophils % (A) 74 %; Platelet Count 108 k/uL (150-450); RDW 15.7 % (11.5-15.5); WBC 4.4 k/uL (3.8-10.6)
[2023-06-28 09:35] LABS: INR 1.1 (<1.2); Partial Thromboplastin Time 27.7 sec (22.0-30.0)
[2023-06-28 09:48] LABS: ALT 21 U/L (4-49); AST 35 U/L (17-59); African American GFR (CKD) 12 (>60 ml/min/1.73 sqM); Albumin 4.3 g/dL (3.5-5.0); Alkaline Phosphatase 159 U/L (38-126); Anion Gap 17 mmol/L; Blood Urea Nitrogen 58 mg/dL (9-20); Calcium 7.8 mg/dL (8.4-10.2); Carbon Dioxide 26 mmol/L (22-30); Chloride 100 mmol/L (98-107); Glucose 91 mg/dL (74-99); Hypochromasia (M) Present; Non-African American GFR(CKD) 10 (>60 ml/min/1.73 sqM); Potassium 4.6 mmol/L (3.5-5.1); Sodium 143 mmol/L (137-145); Total Protein 7.9 g/dL (6.3-8.2)
[2023-06-28 12:05] VITALS: BP 115/59; PULSE 55
--- NOTE | 2023-06-28 14:40 | P.GSCN ---
History of Present Illness Consult date: 06/28/23 Reason for Consult: bleeding AVG History of present illness: 77 year old male with history of left upper extremity AVG and dialysis states having multiple episodes of bleeding from the access site after dialysis. 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%, history of renal transplant and 2 in 1992 from a donor and in 1995 from a living donor, history of neck fracture, history of Covid 19 infection, severe aortic stenosis, anemia of chronic disease neuropathy, dialysis Friday History of Any Multi-Drug Resistant Organisms: None Reported Past Surgical History: Appendectomy Additional Past Surgical History / Comment(s): Kidney transplant in 07/28/1992 and 1995 and the patient has a fistula in the left upper extremity Past Anesthesia/Blood Transfusion Reactions: No Reported Reaction Past Psychological History: No Psychological Hx Reported Smoking Status: Former smoker Past Alcohol Use History: Rare Past Drug Use History: None Reported - Past Family History Mother Family Medical History: Cancer Additional Family Medical History / Comment(s): pancreatic cancer Father Family Medical History: CVA/TIA Additional Family Medical History / Comment(s): father of stroke Medications and Allergies Home Medications Medication Instructions Recorded Confirmed Type Atorvastatin [Lipitor] 10 mg PO HS 01/29/22 03/04/23 History Cholecalciferol [Vitamin D3 (25 50 mcg PO DAILY 01/29/22 03/04/23 History Mcg = 1000 Iu)] [place]-3/Dha/Epa/Fish Oil [Fish Oil 1 cap PO DAILY 01/29/22 03/04/23 History 1,000 mg Softgel] Isosorbide Mononitrate ER [Imdur] 30 mg PO DAILY 01/30/22 03/04/23 History Aspirin 81 mg PO DAILY 05/01/22 03/04/23 History rOPINIRole HCL [Requip] 2 mg PO BID 05/01/22 03/04/23 History Folic Acid/Vit B Complex and C 0.8 mg PO DIRECTED 06/03/22 03/04/23 History [Emy-Catalino Tablet] Sevelamer Carbonate 1,600 mg PO PC-TID 06/03/22 03/04/23 History Magnesium Oxide [Mag-Ox] 400 mg PO DAILY #30 tab 06/05/22 03/04/23 Rx Metoprolol Succinate (ER) [Toprol 25 mg PO DAILY #30 tab 06/26/22 03/04/23 Rx XL] Bumetanide [BUMEX] 4 mg PO DAILY 08/16/22 03/04/23 History Calcium Acetate [PhosLo] 667 mg PO PC-TID 08/16/22 03/04/23 History Lidocaine-Prilocaine Cream [Emla 1 applic TOPICAL DAILY PRN 08/16/22 03/04/23 History Cream 2.5%/2.5%] Colchicine [Colcrys] 0.6 mg PO BID 02/12/23 03/04/23 History PARoxetine [Paxil] 5 mg PO DAILY 02/12/23 03/04/23 History allopurinoL [Zyloprim] 100 mg PO DAILY 02/12/23 03/04/23 History oxyCODONE-APAP 5-325MG [Percocet 1 - 1.5 tab PO TID PRN 02/12/23 03/04/23 History 5-325 mg] clindamycin HCL [Cleocin] 450 mg PO Q8H 7 Days #63 cap 02/21/23 03/04/23 Rx Allergies Allergy/AdvReac Type Severity Reaction Status Date / Time enalaprilat [From Vasotec] Allergy Swelling Verified 06/28/23 06:50 lisinopril Allergy Swelling Verified 06/28/23 06:50 gabapentin AdvReac Hallucinati Verified 06/28/23 06:50 ons/Nightma res Surgical - Exam Vital Signs Temp Pulse Resp BP Pulse Ox 97.6 F 66 18 109/63 99 06/28/23 06:49 06/28/23 06:49 06/28/23 06:49 06/28/23 06:49 06/28/23 06:49 left upper extremity AVG with palpable thrill. Small pinhole site with active bleeding. Appears to have non healing area at the access sites. - General well developed, well nourished, no distress Results - Labs 06/28/23 09:17 06/28/23 09:17 Abnormal Lab Results - Last 24 Hours (Table) 06/28/23 06/28/23 Range/Units 09:17 09:17 RBC 3.10 L (4.30-5.90) m/uL Hgb 11.0 L (13.0-17.5) gm/dL Hct 34.8 L (39.0-53.0) % MCV 112.3 H (80.0-100.0) fL MCH 35.5 H (25.0-35.0) pg RDW 15.7 H (11.5-15.5) % Plt Count 108 L (150-450) k/uL Lymphocytes # 0.5 L (1.0-4.8) k/uL Macrocytosis Marked A BUN 58 H (9-20) mg/dL Creatinine 5.00 H (0.66-1.25) mg/dL Calcium 7.8 L (8.4-10.2) mg/dL Alkaline Phosphatase 159 H (38-126) U/L Diabetes panel 06/28/23 Range/Units 09:17 Sodium 143 (137-145) mmol/L Potassium 4.6 (3.5-5.1) mmol/L Chloride 100 (98-107) mmol/L Carbon Dioxide 26 (22-30) mmol/L BUN 58 H (9-20) mg/dL Creatinine 5.00 H (0.66-1.25) mg/dL Glucose 91 (74-99) mg/dL Calcium 7.8 L (8.4-10.2) mg/dL AST 35 (17-59) U/L ALT 21 (4-49) U/L Alkaline Phosphatase 159 H (38-126) U/L Total Protein 7.9 (6.3-8.2) g/dL Albumin 4.3 (3.5-5.0) g/dL Calcium panel 06/28/23 Range/Units 09:17 Calcium 7.8 L (8.4-10.2) mg/dL Albumin 4.3 (3.5-5.0) g/dL Pituitary panel 06/28/23 Range/Units 09:17 Sodium 143 (137-145) mmol/L Potassium 4.6 (3.5-5.1) mmol/L Chloride 100 (98-107) mmol/L Carbon Dioxide 26 (22-30) mmol/L BUN 58 H (9-20) mg/dL Creatinine 5.00 H (0.66-1.25) mg/dL Glucose 91 (74-99) mg/dL Calcium 7.8 L (8.4-10.2) mg/dL Adrenal panel 06/28/23 Range/Units 09:17 Sodium 143 (137-145) mmol/L Potassium 4.6 (3.5-5.1) mmol/L Chloride 100 (98-107) mmol/L Carbon Dioxide 26 (22-30) mmol/L BUN 58 H (9-20) mg/dL Creatinine 5.00 H (0.66-1.25) mg/dL Glucose 91 (74-99) mg/dL Calcium 7.8 L (8.4-10.2) mg/dL Total Bilirubin 1.0 (0.2-1.3) mg/dL AST 35 (17-59) U/L ALT 21 (4-49) U/L Alkaline Phosphatase 159 H (38-126) U/L Total Protein 7.9 (6.3-8.2) g/dL Albumin 4.3 (3.5-5.0) g/dL Assessment and Plan Assessment: Bleeding from left upper extremity AVG ESRD Possible outflow stenosis Plan: Due to active bleeding from the AVG, the area was cleansed and in a sterile fashion a suture was placed in a figure eight fashion for hemostasis. Ok to have dialysis around the suture site. Follow up in office for fistulagram and possible need for revision. Thank you for the consultation
== END 2023-06-28 12:03 | disposition home or self-care (01) ==
LOC: EC 06:45
DX: T82.838A Hemorrhage due to vascular prosthetic devices, implants and grafts, initial encounter (principal); I50.9 Heart failure, unspecified; N18.6 End stage renal disease; Z99.2 Dependence on renal dialysis; Z88.8 Allergy status to other drugs, medicaments and biological substances; Z87.891 Personal history of nicotine dependence; Z86.16 Personal history of COVID-19
CPT/HCPCS: 36415; 80053; 85025; 85610; 85730; 99284

== ENCOUNTER 2023-06-30 15:31 | Inpatient (IN) | payer MEDICARE, OTHER ==
--- NOTE | 2023-06-30 17:02 | ED ---
General Adult HPI - General Chief complaint: Shortness of Breath Stated complaint: SOB Time Seen by Provider: 06/30/23 16:04 Source: patient, EMS Mode of arrival: EMS Limitations: altered mental status - History of Present Illness Initial comments: Patient is 77-year-old man who reportedly is here for decreased activity/lethargy. When I interview the patient he is not able to give much history. He is somnolent but arousable. When questioned about symptoms she states there is pain in his foot. He does appear to have chronic ulcer that is wrapped currently. Patient complains of shortness of breath. He does state that he did make his last dialysis session 2 days ago now. -: hour(s) Consistency: constant Improves with: none Worsens with: none Associated Symptoms: shortness of breath, other (Right foot pain) Treatments Prior to Arrival: other (Oxygen) - Related Data Home Medications Medication Instructions Recorded Confirmed Atorvastatin [Lipitor] 10 mg PO HS 01/29/22 06/30/23 Cholecalciferol [Vitamin D3 (25 50 mcg PO DAILY 01/29/22 06/30/23 Mcg = 1000 Iu)] [place]-3/Dha/Epa/Fish Oil [Fish Oil 1 cap PO DAILY 01/29/22 06/30/23 1,000 mg Softgel] Isosorbide Mononitrate ER [Imdur] 30 mg PO DAILY 01/30/22 06/30/23 Aspirin 81 mg PO DIRECTED 05/01/22 06/30/23 rOPINIRole HCL [Requip] 2 mg PO BID 05/01/22 06/30/23 Folic Acid/Vit B Complex and C 0.8 mg PO DAILY 06/03/22 06/30/23 [Emy-Catalino Tablet] Bumetanide [BUMEX] 4 mg PO DAILY 08/16/22 06/30/23 Calcium Acetate [PhosLo] 1,334 mg PO PC-TID 08/16/22 06/30/23 PARoxetine [Paxil] 5 mg PO DAILY 02/12/23 06/30/23 allopurinoL [Zyloprim] 100 mg PO DAILY 02/12/23 06/30/23 oxyCODONE-APAP 5-325MG [Percocet 1 - 1.5 tab PO TID PRN 02/12/23 06/30/23 5-325 mg] Magnesium Oxide 483mg 483 mg PO DAILY 06/30/23 06/30/23 Previous Rx's Medication Instructions Recorded Metoprolol Succinate (ER) [Toprol 25 mg PO DAILY #30 tab 06/26/22 XL] Allergies Allergy/AdvReac Type Severity Reaction Status Date / Time enalaprilat [From Vasotec] Allergy Swelling Verified 06/30/23 17:26 lisinopril Allergy Swelling Verified 06/30/23 17:26 gabapentin AdvReac Hallucinati Verified 06/30/23 17:26 ons/Nightma res Review of Systems ROS Statement: Those systems with pertinent positive or pertinent negative responses have been documented in the HPI. ROS Other: All systems not noted in ROS Statement are negative. Limitations: ROS unobtainable due to patients medical condition Respiratory: Reports: dyspnea. Denies: cough Cardiovascular: Denies: chest pain Gastrointestinal: Denies: abdominal pain Musculoskeletal: Reports: other (Right foot pain). 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%, history of renal transplant and 2 in 1992 from a donor and in 1995 from a living donor, history of neck fracture, history of Covid 19 infection, severe aortic stenosis, anemia of chronic disease neuropathy, dialysis Friday History of Any Multi-Drug Resistant Organisms: None Reported Past Surgical History: Appendectomy Additional Past Surgical History / Comment(s): Kidney transplant in 07/28/1992 and 1995 and the patient has a fistula in the left upper extremity Past Anesthesia/Blood Transfusion Reactions: No Reported Reaction Past Psychological History: No Psychological Hx Reported Smoking Status: Former smoker Past Alcohol Use History: Rare Past Drug Use History: None Reported - Past Family History Mother Family Medical History: Cancer Additional Family Medical History / Comment(s): pancreatic cancer Father Family Medical History: CVA/TIA Additional Family Medical History / Comment(s): father of stroke General Exam Limitations: no limitations General appearance: other (Patient is somnolent but arousable.) Head exam: Present: atraumatic, normocephalic Eye exam: Present: conjunctival injection (Right). Absent: scleral icterus ENT exam: Present: mucous membranes dry Neck exam: Present: normal inspection, full ROM. Absent: meningismus Respiratory exam: Present: rales. Absent: respiratory distress, wheezes, rhonchi, stridor, accessory muscle use Cardiovascular Exam: Present: regular rate, normal rhythm, systolic murmur (Grade 3 systolic ejection murmur). Absent: diastolic murmur, rubs, gallop GI/Abdominal exam: Present: soft. Absent: distended, tenderness, guarding, rebound, rigid, mass Extremities exam: Present: normal inspection, normal capillary refill. Absent: pedal edema, calf tenderness Back exam: Present: normal inspection. Absent: CVA tenderness (R), CVA tenderness (L) Neurological exam: Present: alert, CN II-XII intact. Absent: oriented X3, motor sensory deficit Skin exam: Present: warm, dry, intact, normal color, other (On the patient's right foot, there is stage I ulcer to the medial malleolus and over the calcaneus.). Absent: rash Course Vital Signs 06/30/23 06/30/23 06/30/23 15:37 17:43 19:00 Temperature 101.3 F H 99.2 F Pulse Rate 80 75 74 Pulse Rate [ Pulse Oximetery ] Respiratory 18 18 23 Rate Blood Pressure 123/63 122/71 118/65 Blood Pressure [Right Arm] O2 Sat by Pulse 98 96 95 Oximetry 06/30/23 21:11 Temperature 98.8 F Pulse Rate Pulse Rate [ 68 Pulse Oximetery ] Respiratory 20 Rate Blood Pressure Blood Pressure 114/69 [Right Arm] O2 Sat by Pulse 97 Oximetry EKG Findings - EKG Results: EKG: interpreted by ERMD, sinus rhythm (Rate 75 bpm) - Blocks, [place], Hypertrophy, ST Abn: QRS axis and voltage: left axis deviation (-30 to -90) Chamber hypertrophy or enlargement: left ventricular hypertrophy or enlargement (LVE) - ND, Pacemaker, Normal: Myocardial infarction: septal ND (old age or indeterminate), anterior ND (old age or indeterminate) Medical Decision Making - Medical Decision Making The patient had chest x-ray that I interpreted as showing changes suggestive of volume overload. No acute infiltrate or pneumothorax. Patient is 77-year-old man here to have evaluation for dyspnea and found to have fever. Volume overload on the chest x-ray with no definite infiltrate. The patient is given empiric antibiotic for the fever, and will be admitted to have nephrology consultation for possible dialysis. Was pt. sent in by a medical professional or institution (, RON, DIRECTOR OUTPATIENT SERVICES, urgent care, hospital, or longterm...) When possible be specific @ -[No] Did you speak to anyone other than the patient for history (EMS, parent, family, police, friend...)? What history was obtained from this source @ -[No] Did you review nursing and triage notes (agree or disagree)? Why? @ -[I reviewed and agree with nursing and triage notes] Were old charts reviewed (outside hosp., previous admission, EMS record, old EKG, old radiological studies, urgent care reports/EKG's, longterm records)? Report findings @ -[Yes old charts were reviewed] Differential Diagnosis (chest pain, altered mental status, abdominal pain women, abdominal pain men, vaginal bleeding, weakness, fever, dyspnea, syncope, headache, dizziness, GI bleed, back pain, seizure, CVA, palpatations, mental health, musculoskeletal)? @ -[Differential Dyspnea: Coronary syndrome, arrhythmia, tamponade, asthma, COPD, pulmonary embolism, pneumonia, pneumothorax, pulmonary effusion, anaphylaxis, diabetic ketoacidosis, flailed chest, pulmonary contusion, diaphragmatic rupture, anemia, neuromus cular, this is not meant to be an all-inclusive list. EKG interpreted by me (3pts min.). @ -[I interpreted as above] X-rays interpreted by me (1pt min.). @ -[I interpreted as above CT interpreted by me (1pt min.). @ -[None done] U/S interpreted by me (1pt. min.). @ -[None done] What testing was considered but not performed or refused? (CT, X-rays, U/S, labs)? Why? @ -[None] What meds were considered but not given or refused? Why? @ -[None] Did you discuss the management of the patient with other professionals (professionals i.e. RON Max, DIRECTOR OUTPATIENT SERVICES, lab, RT, psych nurse, older adult social work specialist, recreational therapist, teacher, chief medical officer, caser shoe parts)? Give summary @ -[Case discussed with admitting physician and treatment recommendations are incorporated Was smoking cessation discussed for >3mins.? @ -[No] Was critical care preformed (if so, how long)? @ -[No] Were there social determinants of health that impacted care today? How? (Homelessness, low income, unemployed, alcoholism, drug addiction, trans portation, low edu. Level, literacy, decrease access to med. care, fpc, rehab)? @ -[No] Was there de-escalation of care discussed even if they declined (Discuss DNR or withdrawal of care, Hospice)? DNR status @ -[No] What co-morbidities impacted this encounter? (DM, HTN, Smoking, COPD, CAD, Cance r, CVA, ARF, Chemo, Hep., AIDS, mental health diagnosis, sleep apnea, morbid obesity)? @ -[End-stage renal disease, hypertension Was patient admitted / discharged? Hospital course, mention meds given and route, prescriptions, significant lab abnormalities, going to OR and other pertinent info. @ -[As above Undiagnosed new problem with uncertain prognosis? @ -[No] Drug Therapy requiring intensive monitoring for toxicity (Heparin, Nitro, Insulin, Cardizem)? @ -[No] Were any procedures done? @ -[No] Diagnosis/symptom? @ -[Acute dyspnea, suspected due to fluid overload Acute fever, source currently unknown, cultures are pending Right foot ulcer, chronic Acute, or Chronic, or Acute on Chronic? @ -[Acute Uncomplicated (without systemic symptoms) or Complicated (systemic symptoms)? @ -[Uncomplicated Side effects of treatment? @ -[No] Exacerbation, Progression, or Severe Exacerbation? @ -[No] Poses a threat to life or bodily function? How? (Chest pain, USA, ND, pneumonia, PE, COPD, DKA, ARF, appy, cholecystitis, CVA, Diverticulitis, Homicidal, Suicidal, threat to staff... and all critical care pts) @ -[Yes - Lab Data Result diagrams: 07/06/23 05:54 07/05/23 06:08 Lab Results 06/30/23 06/30/23 06/30/23 Range/Units 16:26 16:26 16:26 WBC 8.5 (3.8-10.6) k/uL RBC 3.01 L (4.30-5.90) m/uL Hgb 10.6 L (13.0-17.5) gm/dL Hct 33.2 L (39.0-53.0) % MCV 110.3 H (80.0-100.0) fL MCH 35.3 H (25.0-35.0) pg MCHC 32.0 (31.0-37.0) g/dL RDW 15.9 H (11.5-15.5) % Plt Count 97 L (150-450) k/uL MPV 11.0 Neutrophils % 93 % Lymphocytes % 2 % Monocytes % 4 % Eosinophils % 1 % Basophils % 0 % Neutrophils # 7.9 H (1.3-7.7) k/uL Lymphocytes # 0.2 L (1.0-4.8) k/uL Monocytes # 0.3 (0-1.0) k/uL Eosinophils # 0.0 (0-0.7) k/uL Basophils # 0.0 (0-0.2) k/uL Manual Slide Review Performed Hypochromasia Slight Macrocytosis Marked A PT 13.2 H (10.0-12.5) sec INR 1.2 H (<1.2) APTT 26.3 (22.0-30.0) sec VBG pH (7.31-7.41) VBG pCO2 (37-51) mmHg VBG HCO3 (24-28) mmol/L Sodium 139 (137-145) mmol/L Potassium 5.7 H (3.5-5.1) mmol/L Chloride 99 (98-107) mmol/L Carbon Dioxide 21 L (22-30) mmol/L Anion Gap 19 mmol/L BUN 62 H (9-20) mg/dL Creatinine 5.30 H (0.66-1.25) mg/dL Est GFR (CKD-EPI)AfAm 11 (>60 ml/min/1.73 sqM) Est GFR (CKD-EPI)NonAf 10 (>60 ml/min/1.73 sqM) Glucose 93 (74-99) mg/dL Plasma Lactic Acid Ryan (0.7-2.0) mmol/L Calcium 8.1 L (8.4-10.2) mg/dL Total Bilirubin 1.6 H (0.2-1.3) mg/dL AST 43 (17-59) U/L ALT 21 (4-49) U/L Alkaline Phosphatase 151 H (38-126) U/L Ammonia (<30) umol/L Troponin I (0.000-0.034) ng/mL NT-Pro-B Natriuret Pep 542820 pg/mL Total Protein 7.7 (6.3-8.2) g/dL Albumin 4.2 (3.5-5.0) g/dL Influenza Type A (PCR) (Not Detectd) Influenza Type B (PCR) (Not Detectd) RSV (PCR) (Not Detectd) SARS-CoV-2 (PCR) (Not Detectd) 06/30/23 06/30/23 06/30/23 Range/Units 16:26 16:26 16:26 WBC (3.8-10.6) k/uL RBC (4.30-5.90) m/uL Hgb (13.0-17.5) gm/dL Hct (39.0-53.0) % MCV (80.0-100.0) fL MCH (25.0-35.0) pg MCHC (31.0-37.0) g/dL RDW (11.5-15.5) % Plt Count (150-450) k/uL MPV Neutrophils % % Lymphocytes % % Monocytes % % Eosinophils % % Basophils % % Neutrophils # (1.3-7.7) k/uL Lymphocytes # (1.0-4.8) k/uL Monocytes # (0-1.0) k/uL Eosinophils # (0-0.7) k/uL Basophils # (0-0.2) k/uL Manual Slide Review Hypochromasia Macrocytosis PT (10.0-12.5) sec INR (<1.2) APTT (22.0-30.0) sec VBG pH (7.31-7.41) VBG pCO2 (37-51) mmHg VBG HCO3 (24-28) mmol/L Sodium (137-145) mmol/L Potassium (3.5-5.1) mmol/L Chloride (98-107) mmol/L Carbon Dioxide (22-30) mmol/L Anion Gap mmol/L BUN (9-20) mg/dL Creatinine (0.66-1.25) mg/dL Est GFR (CKD-EPI)AfAm (>60 ml/min/1.73 sqM) Est GFR (CKD-EPI)NonAf (>60 ml/min/1.73 sqM) Glucose (74-99) mg/dL Plasma Lactic Acid Ryan 1.9 (0.7-2.0) mmol/L Calcium (8.4-10.2) mg/dL Total Bilirubin (0.2-1.3) mg/dL AST (17-59) U/L ALT (4-49) U/L Alkaline Phosphatase (38-126) U/L Ammonia 36 H (<30) umol/L Troponin I 0.104 H* (0.000-0.034) ng/mL NT-Pro-B Natriuret Pep pg/mL Total Protein (6.3-8.2) g/dL Albumin (3.5-5.0) g/dL Influenza Type A (PCR) Not Detected (Not Detectd) Influenza Type B (PCR) Not Detected (Not Detectd) RSV (PCR) Not Detected (Not Detectd) SARS-CoV-2 (PCR) Not Detected (Not Detectd) 06/30/23 Range/Units 17:27 WBC (3.8-10.6) k/uL RBC (4.30-5.90) m/uL Hgb (13.0-17.5) gm/dL Hct (39.0-53.0) % MCV (80.0-100.0) fL MCH (25.0-35.0) pg MCHC (31.0-37.0) g/dL RDW (11.5-15.5) % Plt Count (150-450) k/uL MPV Neutrophils % % Lymphocytes % % Monocytes % % Eosinophils % % Basophils % % Neutrophils # (1.3-7.7) k/uL Lymphocytes # (1.0-4.8) k/uL Monocytes # (0-1.0) k/uL Eosinophils # (0-0.7) k/uL Basophils # (0-0.2) k/uL Manual Slide Review Hypochromasia Macrocytosis PT (10.0-12.5) sec INR (<1.2) APTT (22.0-30.0) sec VBG pH 7.46 H (7.31-7.41) VBG pCO2 32 L (37-51) mmHg VBG HCO3 22 L (24-28) mmol/L Sodium (137-145) mmol/L Potassium (3.5-5.1) mmol/L Chloride (98-107) mmol/L Carbon Dioxide (22-30) mmol/L Anion Gap mmol/L BUN (9-20) mg/dL Creatinine (0.66-1.25) mg/dL Est GFR (CKD-EPI)AfAm (>60 ml/min/1.73 sqM) Est GFR (CKD-EPI)NonAf (>60 ml/min/1.73 sqM) Glucose (74-99) mg/dL Plasma Lactic Acid Ryan (0.7-2.0) mmol/L Calcium (8.4-10.2) mg/dL Total Bilirubin (0.2-1.3) mg/dL AST (17-59) U/L ALT (4-49) U/L Alkaline Phosphatase (38-126) U/L Ammonia (<30) umol/L Troponin I (0.000-0.034) ng/mL NT-Pro-B Natriuret Pep pg/mL Total Protein (6.3-8.2) g/dL Albumin (3.5-5.0) g/dL Influenza Type A (PCR) (Not Detectd) Influenza Type B (PCR) (Not Detectd) RSV (PCR) (Not Detectd) SARS-CoV-2 (PCR) (Not Detectd) Disposition Clinical Impression: Volume overload, End stage renal disease, Dyspnea, Foot ulcer Disposition: ADMITTED IP TO THIS HOSP Condition: Undetermined Is patient prescribed a controlled substance at d/c from ED?: No
--- NOTE | 2023-06-30 17:08 | XR ---
EXAMINATION TYPE: XR chest 2V DATE OF EXAM: 06/30/2023 COMPARISON: 02/12/2023 HISTORY: Difficulty breathing TECHNIQUE: Frontal and lateral views of the chest are obtained. FINDINGS: There is moderate cardiomegaly, pulmonary vascular congestion and small bilateral pleural effusions. Findings most consistent with CHF. There is no pneumothorax. The osseous structures are intact IMPRESSION: Acute cardiopulmonary disease with findings most consistent with moderate CHF.
[2023-06-30 17:12] LABS: Basophils % (A) 0 %; Eosinophils % (A) 1 %; HCT 33.2 % (39.0-53.0); HGB 10.6 gm/dL (13.0-17.5); Hypochromasia Slight; Lymphocytes # (A) 0.2 k/uL (1.0-4.8); Lymphocytes % (A) 2 %; MCH 35.3 pg (25.0-35.0); MCV 110.3 fL (80.0-100.0); Macrocytosis Marked; Monocytes # (A) 0.3 k/uL (0-1.0); Monocytes % (A) 4 %; Neutrophils # (A) 7.9 k/uL (1.3-7.7); Neutrophils % (A) 93 %; RBC 3.01 m/uL (4.30-5.90); RDW 15.9 % (11.5-15.5); WBC 8.5 k/uL (3.8-10.6)
[2023-06-30 17:38] LABS: Lactic Acid, Venous 1.9 mmol/L (0.7-2.0)
[2023-06-30 17:40] LABS: ALT 21 U/L (4-49); AST 43 U/L (17-59); African American GFR (CKD) 11 (>60 ml/min/1.73 sqM); Albumin 4.2 g/dL (3.5-5.0); Alkaline Phosphatase 151 U/L (38-126); Anion Gap 19 mmol/L; Blood Urea Nitrogen 62 mg/dL (9-20); Calcium 8.1 mg/dL (8.4-10.2); Carbon Dioxide 21 mmol/L (22-30); Chloride 99 mmol/L (98-107); Glucose 93 mg/dL (74-99); Non-African American GFR(CKD) 10 (>60 ml/min/1.73 sqM); Sodium 139 mmol/L (137-145); Total Bilirubin 1.6 mg/dL (0.2-1.3); Total Protein 7.7 g/dL (6.3-8.2)
[2023-06-30 17:45] LABS: INR 1.2 (<1.2); Partial Thromboplastin Time 26.3 sec (22.0-30.0); Prothrombin Time 13.2 sec (10.0-12.5)
[2023-06-30 17:46] LABS: Potassium 5.7 mmol/L (3.5-5.1)
[2023-06-30 18:01] LABS: Platelet Count 97 k/uL (150-450)
[2023-06-30 18:06] LABS: NT-Pro-B-Type Natriuretic Pept 119000 pg/mL
[2023-06-30 18:15] LABS: VBG PH 7.46 (7.31-7.41)
[2023-06-30] MEDS ORDERED: NALOXONE 0.4 MG/ML 1 ML VIAL IV PRN (18:29)
[2023-06-30] MEDS: ACETAMINOPHEN TAB 325 MG TAB PO PRN (23:09)
--- NOTE | 2023-07-01 02:51 | P.HPIM ---
History of Present Illness H&P Date: 06/30/23 Chief Complaint: Shortness of breath 77-year-old male congestive heart failure left ventricular ejection fraction 20- 25%, end-stage renal disease on hemodialysis TTS Patient is a poor historian. However he does report that he has been feeling well throughout the weekend his last hemodialysis session was Friday however today Friday he woke up having severe shortness of breath denies any orthopnea denies any paroxysmal nocturnal dyspnea denies any fevers chills coughing sore throat body aches. He was feeling generalized weakness and difficulty with breathing with ambulation and even during rest for which she decided to call EMS and come in for evaluation He denies any changes in his medications. He does also report some right foot pain he reports that he has an ulcer on his right foot which he follows up with podiatry as outpatient. He is currently not on any antibiotics at home Patient otherwise denies any recent hospitalization or hospital stay he denies any traveling denies any history of blood clots Patient denies tobacco smoking illicit drugs or heavy alcohol Workup in the ED suggested pulmonary vascular congestion and some fluid overload review of systems Pertinent positives as noted in HPI. All other systems were reviewed and are negative on exam Constitutional: No acute distress, conversant, pleasant Eyes: Anicteric sclerae, moist conjunctiva, Pupils equal round reactive to light ENMT: NC/AT Oropharynx clear, no erythema, or exudates Neck: Supple, no masses, or JVD No carotid bruits No thyromegaly Lungs: Good breath sounds bilaterally with expiratory rales at lung bases Clear to percussion Normal respiratory effort, no accessory muscle use Cardiovascular: Heart regular in rate and rhythm, Systolic murmurs, no gallops, or rubs No peripheral edema Abdominal: Soft Nontender, no guarding, rebound or rigidity Abdomen moving with respiration Normoactive bowel sounds No hepatomegaly, No splenomegaly No palpable mass No abdominal wall hernia noted Skin: Right foot wrapped in surgical dressing patient did not want that to be touched and 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 Extremities: No digital cyanosis No clubbing Pedal pulses intact and symmetrical Radial pulses intact and symmetrical No calf tenderness Psychiatric: Alert and oriented to person, place and time Appropriate affect fair judgement Neuro Muscles Strength 5/5 in all 4 extremities Sensation to light touch grossly present throughout Cranial nerves II-XII grossly intact Lymphatics: no palpable cervical or supraclavicular lymph nodes 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%, history of renal transplant and 2 in 1992 from a donor and in 1995 from a living donor, history of neck fracture, history of Covid 19 infection, severe aortic stenosis, anemia of chronic disease neuropathy, dialysis Friday History of Any Multi-Drug Resistant Organisms: None Reported Past Surgical History: Appendectomy Additional Past Surgical History / Comment(s): Kidney transplant in 07/28/1992 and 1995 and the patient has a fistula in the left upper extremity Past Anesthesia/Blood Transfusion Reactions: No Reported Reaction Past Psychological History: No Psychological Hx Reported Smoking Status: Former smoker Past Alcohol Use History: Rare Past Drug Use History: None Reported - Past Family History Mother Family Medical History: Cancer Additional Family Medical History / Comment(s): pancreatic cancer Father Family Medical History: CVA/TIA Additional Family Medical History / Comment(s): father of stroke Medications and Allergies Home Medications Medication Instructions Recorded Confirmed Type Atorvastatin [Lipitor] 10 mg PO HS 01/29/22 06/30/23 History Cholecalciferol [Vitamin D3 (25 50 mcg PO DAILY 01/29/22 06/30/23 History Mcg = 1000 Iu)] [place]-3/Dha/Epa/Fish Oil [Fish Oil 1 cap PO DAILY 01/29/22 06/30/23 History 1,000 mg Softgel] Isosorbide Mononitrate ER [Imdur] 30 mg PO DAILY 01/30/22 06/30/23 History Aspirin 81 mg PO DIRECTED 05/01/22 06/30/23 History rOPINIRole HCL [Requip] 2 mg PO BID 05/01/22 06/30/23 History Folic Acid/Vit B Complex and C 0.8 mg PO DAILY 06/03/22 06/30/23 History [Emy-Catalino Tablet] Metoprolol Succinate (ER) [Toprol 25 mg PO DAILY #30 tab 06/26/22 06/30/23 Rx XL] Bumetanide [BUMEX] 4 mg PO DAILY 08/16/22 06/30/23 History Calcium Acetate [PhosLo] 1,334 mg PO PC-TID 08/16/22 06/30/23 History PARoxetine [Paxil] 5 mg PO DAILY 02/12/23 06/30/23 History allopurinoL [Zyloprim] 100 mg PO DAILY 02/12/23 06/30/23 History oxyCODONE-APAP 5-325MG [Percocet 1 - 1.5 tab PO TID PRN 02/12/23 06/30/23 History 5-325 mg] Magnesium Oxide 483mg 483 mg PO DAILY 06/30/23 06/30/23 History Allergies Allergy/AdvReac Type Severity Reaction Status Date / Time enalaprilat [From Vasotec] Allergy Swelling Verified 06/30/23 17:26 lisinopril Allergy Swelling Verified 06/30/23 17:26 gabapentin AdvReac Hallucinati Verified 06/30/23 17:26 ons/Nightma res Physical Exam Vitals: Vital Signs Temp Pulse Resp BP Pulse Ox 06/30/23 19:00 99.2 F 74 23 118/65 95 06/30/23 17:43 75 18 122/71 96 06/30/23 15:37 101.3 F H 80 18 123/63 98 Intake and Output 06/30/23 06/30/23 06/30/23 06:59 14:59 22:59 Other: Weight 68.039 kg Results CBC & Chem 7: 06/30/23 16:26 06/30/23 16:26 Labs: Abnormal Lab Results - Last 24 Hours (Table) 06/30/23 06/30/23 06/30/23 Range/Units 16:26 16:26 16:26 RBC 3.01 L (4.30-5.90) m/uL Hgb 10.6 L (13.0-17.5) gm/dL Hct 33.2 L (39.0-53.0) % MCV 110.3 H (80.0-100.0) fL MCH 35.3 H (25.0-35.0) pg RDW 15.9 H (11.5-15.5) % Plt Count 97 L (150-450) k/uL Neutrophils # 7.9 H (1.3-7.7) k/uL Lymphocytes # 0.2 L (1.0-4.8) k/uL Macrocytosis Marked A PT 13.2 H (10.0-12.5) sec INR 1.2 H (<1.2) VBG pH (7.31-7.41) VBG pCO2 (37-51) mmHg VBG HCO3 (24-28) mmol/L Potassium 5.7 H (3.5-5.1) mmol/L Carbon Dioxide 21 L (22-30) mmol/L BUN 62 H (9-20) mg/dL Creatinine 5.30 H (0.66-1.25) mg/dL Calcium 8.1 L (8.4-10.2) mg/dL Total Bilirubin 1.6 H (0.2-1.3) mg/dL Alkaline Phosphatase 151 H (38-126) U/L Ammonia (<30) umol/L Troponin I (0.000-0.034) ng/mL 06/30/23 06/30/23 06/30/23 Range/Units 16:26 16:26 17:27 RBC (4.30-5.90) m/uL Hgb (13.0-17.5) gm/dL Hct (39.0-53.0) % MCV (80.0-100.0) fL MCH (25.0-35.0) pg RDW (11.5-15.5) % Plt Count (150-450) k/uL Neutrophils # (1.3-7.7) k/uL Lymphocytes # (1.0-4.8) k/uL Macrocytosis PT (10.0-12.5) sec INR (<1.2) VBG pH 7.46 H (7.31-7.41) VBG pCO2 32 L (37-51) mmHg VBG HCO3 22 L (24-28) mmol/L Potassium (3.5-5.1) mmol/L Carbon Dioxide (22-30) mmol/L BUN (9-20) mg/dL Creatinine (0.66-1.25) mg/dL Calcium (8.4-10.2) mg/dL Total Bilirubin (0.2-1.3) mg/dL Alkaline Phosphatase (38-126) U/L Ammonia 36 H (<30) umol/L Troponin I 0.104 H* (0.000-0.034) ng/mL Assessment and Plan Assessment: 77-year-old male with chronic systolic CHF left ventricular ejection fraction 20-25% end-stage renal disease on TTS hemodialysis coming in with worsening shortness of breath of 1 day duration I discussed case with the ED doctor and accepted the admission for fluid overload with anticipated length of stay more than 2 midnights Chronic hypoxic respiratory failure on 2 L nasal cannula at home Pulmonary vascular congestion multifactorial with history of hemodialysis and congestive heart failure Acute on chronic CHF exacerbation with fluid overload left ventricular ejection fraction 20-25% Fluid restriction 1.8 L daily Daily weight Nephro consult for hemodialysis BUN 62 creatinine 5.3 Sodium 139 potassium 5.7 Tropes chronically elevated and stable 0.104 Elevated BNP Acute viral panel negative for COVID influenza and RSV Continue with supplemental oxygen as needed Chest x-ray showed pulmonary vascular congestion Continue with cardiac medications Imdur and metoprolol Chronic conditions Chronic anemia hemoglobin stable 10.6 patient denies any bleeding Severe peripheral arterial disease Chronic right foot ulcer Hypertension Hyperlipidemia Resume home medications blood pressure medications, statin Podiatry consult Patient received one-time dose of antibiotic in the ED Rocephin 2 g. Follow-up blood cultures continue to monitor off antibiotics await further recommendations from podiatry check CRP and ESR No fever no leukocytosis white count 8.5 Full code DVT prophylaxis heparin subcu 3 times daily
[2023-07-01] MEDS ORDERED: ASPIRIN 81 MG PO PRN (09:00)
[2023-07-01] MEDS: PARoxetine 10 MG TAB PO SCH (09:06)
[2023-07-01] MEDS: HEPARIN SODIUM,PORCINE 5,000 UNIT/ML 1 ML VIAL SQ SCH ×3 (09:06→23:21)
[2023-07-01] MEDS: oxyCODONE-APAP 5-325MG 1 EACH TAB PO PRN ×2 (09:21→23:21)
--- NOTE | 2023-07-01 10:42 | P.PN ---
Subjective Progress Note Date: 07/01/23 Hospital course Patient is a 77-year-old male with a past medical history of congestive heart failure with ejection fraction 20 to 25%, end-stage renal disease on hemodialysis Friday who presents to the ED with shortness of breath and cough. Patient also complaining of right foot pain. In the ED chest x-ray showed findings most consistent with moderate CHF. This morning patient states that he still feeling short of breath. Patient has not had dialysis since being hospitalized. Patient also complaining of right foot pain. Patient states that he has not gotten out of bed yet. 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 Nephrology to manage Patient currently satting well on his home O2 of 2 L Strict I's and O's Daily weight Continue with cardiac meds which include Imdur and metoprolol. Trend CBC BMP and magnesium Chronic right foot ulcers Podiatry consult Hold off on antibiotics for now Acute on chronic debility PT OT consult Chronic conditions Anemia of chronic disease Hemoglobin stable Severe peripheral arterial disease Stable Resume home meds Hypertension Controlled Resume home meds Hyperlipidemia Resume statin DVT prophylaxis: Subcu heparin 3 times a day Disposition: Depending on hospital course and PT OT eval Objective - Vital Signs Vital signs: Vital Signs Temp 97.7 F 07/01/23 08:00 Pulse 57 L 07/01/23 08:00 Resp 19 07/01/23 08:00 BP 117/72 07/01/23 08:00 Pulse Ox 96 07/01/23 08:00 FiO2 Intake & Output 06/30/23 07/01/23 07/01/23 18:59 06:59 18:59 Output Total 200 Balance -200 Weight 68.039 kg 68.039 kg Output: Urine 200 - Labs CBC & Chem 7: 06/30/23 16:26 06/30/23 16:26 Labs: Abnormal Lab Results - Last 24 Hours (Table) 0106/30/23 06/30/23 Range/Units 16:26 16:26 16:26 RBC 3.01 L (4.30-5.90) m/uL Hgb 10.6 L (13.0-17.5) gm/dL Hct 33.2 L (39.0-53.0) % MCV 110.3 H (80.0-100.0) fL MCH 35.3 H (25.0-35.0) pg RDW 15.9 H (11.5-15.5) % Plt Count 97 L (150-450) k/uL Neutrophils # 7.9 H (1.3-7.7) k/uL Lymphocytes # 0.2 L (1.0-4.8) k/uL Macrocytosis Marked A PT 13.2 H (10.0-12.5) sec INR 1.2 H (<1.2) VBG pH (7.31-7.41) VBG pCO2 (37-51) mmHg VBG HCO3 (24-28) mmol/L Potassium 5.7 H (3.5-5.1) mmol/L Carbon Dioxide 21 L (22-30) mmol/L BUN 62 H (9-20) mg/dL Creatinine 5.30 H (0.66-1.25) mg/dL Calcium 8.1 L (8.4-10.2) mg/dL Total Bilirubin 1.6 H (0.2-1.3) mg/dL Alkaline Phosphatase 151 H (38-126) U/L Ammonia (<30) umol/L Troponin I (0.000-0.034) ng/mL 06/30/23 06/30/23 06/30/23 Range/Units 16:26 16:26 17:27 RBC (4.30-5.90) m/uL Hgb (13.0-17.5) gm/dL Hct (39.0-53.0) % MCV (80.0-100.0) fL MCH (25.0-35.0) pg RDW (11.5-15.5) % Plt Count (150-450) k/uL Neutrophils # (1.3-7.7) k/uL Lymphocytes # (1.0-4.8) k/uL Macrocytosis PT (10.0-12.5) sec INR (<1.2) VBG pH 7.46 H (7.31-7.41) VBG pCO2 32 L (37-51) mmHg VBG HCO3 22 L (24-28) mmol/L Potassium (3.5-5.1) mmol/L Carbon Dioxide (22-30) mmol/L BUN (9-20) mg/dL Creatinine (0.66-1.25) mg/dL Calcium (8.4-10.2) mg/dL Total Bilirubin (0.2-1.3) mg/dL Alkaline Phosphatase (38-126) U/L Ammonia 36 H (<30) umol/L Troponin I 0.104 H* (0.000-0.034) ng/mL
[2023-07-01 10:56] LABS: Basophils # (A) 0.04 X 10*3/uL (0.00-0.10); Basophils % (A) 0.5 %; Elliptocytes 2+; Eosinophils # (A) 0.01 X 10*3/uL (0.04-0.35); Eosinophils % (A) 0.1 %; HCT 31.3 % (39.6-50.0); HGB 9.8 g/dL (13.0-17.0); Immature Platelet Fraction 10.6 % (1.1-6.1); Lymphocytes # (A) 0.23 X 10*3/uL (0.90-5.00); Lymphocytes % (A) 2.6 %; MCH 34.1 pg (27.0-32.0); MCHC 31.3 g/dL (32.0-37.0); MCV 109.1 FL (80.0-97.0); Macrocytosis (M) 2+; Mean Platelet Volume 14.1 FL (9.5-12.2); Monocytes % (A) 5.7 %; NRBC Per 100 WBC 0 X 10*3/uL (0.00-0.01); Neutrophils # (A) 7.91 X 10*3/uL (1.80-7.70); Neutrophils % (A) 90.9 %; Platelet Count 79 X 10*3/uL (140-440); RBC 2.87 X 10*6/uL (4.40-5.60); RDW 16.1 % (11.5-14.5); WBC 8.71 X 10*3/uL (4.50-10.00)
--- NOTE | 2023-07-01 11:27 | P.NPCON ---
History of Present Illness - Reason for Consult end stage renal disease - History of Present Illness Patient is a 77-year-old male with end-stage renal disease on hemodialysis on a Friday schedule via left arm AV fistula. He is admitted to the hospital with complaints of increased weakness and dizziness. He also had some nausea but no significant vomiting. No history of fever or chills. Blood pressure noted to be slightly on the lower side. Review of Systems As per HPI. 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%, history of renal transplant and 2 in 1992 from a donor and in 1995 from a living donor, history of neck fracture, history of Covid 19 infection, severe aortic stenosis, anemia of chronic disease neuropathy, dialysis Friday History of Any Multi-Drug Resistant Organisms: None Reported Past Surgical History: Appendectomy Additional Past Surgical History / Comment(s): Kidney transplant in 07/28/1992 a 1995 and the patient has a fistula in the left upper extremity Past Anesthesia/Blood Transfusion Reactions: No Reported Reaction Past Psychological History: No Psychological Hx Reported Smoking Status: Former smoker Past Alcohol Use History: Rare Past Drug Use History: None Reported - Past Family History Mother Family Medical History: Cancer Additional Family Medical History / Comment(s): pancreatic cancer Father Family Medical History: CVA/TIA Additional Family Medical History / Comment(s): father of stroke Medications and Allergies Home Medications Medication Instructions Recorded Confirmed Type Atorvastatin [Lipitor] 10 mg PO HS 01/29/22 06/30/23 History Cholecalciferol [Vitamin D3 (25 50 mcg PO DAILY 01/29/22 06/30/23 History Mcg = 1000 Iu)] Venus-3/Dha/Epa/Fish Oil [Fish Oil 1 cap PO DAILY 01/29/22 06/30/23 History 1,000 mg Softgel] Isosorbide Mononitrate ER [Imdur] 30 mg PO DAILY 01/30/22 06/30/23 History Aspirin 81 mg PO DIRECTED 05/01/22 06/30/23 History rOPINIRole HCL [Requip] 2 mg PO BID 05/01/22 06/30/23 History Folic Acid/Vit B Complex and C 0.8 mg PO DAILY 06/03/22 06/30/23 History [Emy-Catalino Tablet] Metoprolol Succinate (ER) [Toprol 25 mg PO DAILY #30 tab 06/26/22 06/30/23 Rx XL] Bumetanide [BUMEX] 4 mg PO DAILY 08/16/22 06/30/23 History Calcium Acetate [PhosLo] 1,334 mg PO PC-TID 08/16/22 06/30/23 History PARoxetine [Paxil] 5 mg PO DAILY 02/12/23 06/30/23 History allopurinoL [Zyloprim] 100 mg PO DAILY 02/12/23 06/30/23 History oxyCODONE-APAP 5-325MG [Percocet 1 - 1.5 tab PO TID PRN 02/12/23 06/30/23 History 5-325 mg] Magnesium Oxide 483mg 483 mg PO DAILY 06/30/23 06/30/23 History Allergies Allergy/AdvReac Type Severity Reaction Status Date / Time enalaprilat [From Vasotec] Allergy Swelling Verified 06/30/23 17:26 lisinopril Allergy Swelling Verified 06/30/23 17:26 gabapentin AdvReac Hallucinati Verified 06/30/23 17:26 ons/Nightma res Physical Exam Vitals: Vital Signs Temp Pulse Pulse Resp BP BP Pulse Ox 07/01/23 08:00 97.7 F 57 L 19 117/72 96 07/01/23 02:00 97.6 F 49 L 93/57 93 L 06/30/23 21:11 98.8 F 68 20 114/69 97 06/30/23 19:00 99.2 F 74 23 118/65 95 06/30/23 17:43 75 18 122/71 96 06/30/23 15:37 101.3 F H 80 18 123/63 98 Intake and Output 06/30/23 07/01/23 07/01/23 22:59 06:59 14:59 Output Total 200 Balance -200 Output: Urine 200 Other: Weight 68.039 kg Patient is comfortable awake not in any acute distress Alert and oriented x 3 Examination of the heart S1 and S2 Examination of the lungs decreased breath sounds at the bases Abdomen is soft nontender Examination of lower extremity shows chronic skin changes with trace edema 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 End-stage renal disease on hemodialysis on a Friday schedule via left arm AV fistula 2. History of CHF with ejection fraction of 20 to 25% 3. Volume overload 4. Mild hyperkalemia with end-stage renal disease 5. Anemia of chronic disease 6. History of failed renal transplant x 2 Plan: Hemodialysis today with UF of 2 to 2.5 L as tolerated. Use midodrine to help with UF Hold metoprolol as heart rate is low with low blood pressure. Thank you for the consultation. Will continue to follow the patient with you during his hospitalization.
[2023-07-01 11:45] LABS: Erythrocyte Sedimentation Rate 21 mm/Hr (0-20)
[2023-07-01] MEDS ORDERED: VANCOMYCIN IV PER PHARMACY 1 EACH MISC MISCELLANE PRN (15:28)
[2023-07-01] MEDS: ISOSORBIDE MONONITRATE ER 30 MG TAB.ER.24H PO SCH (15:51)
[2023-07-01] MEDS: METOPROLOL SUCCINATE (ER) 25 MG TAB.ER.24H PO SCH (15:51)
[2023-07-01] MEDS ORDERED: VANCOMYCIN 1,250 MG in SODIUM CHLORIDE 0.9% 250 ML IVPB ONE (16:00)
[2023-07-01] MEDS: MIDODRINE 5 MG TAB PO SCH (16:20)
--- NOTE | 2023-07-01 17:59 | P.GSHP ---
History of Present Illness H&P Date: 07/01/23 Chief Complaint: Decubitus ulcerations right foot Patient is a 77-year-old patient Patient is a 77-year-old patient h admitted yesterday for acute acute for severe shortness of breath denies any orthopnea denies any paroxysmal nocturnal dyspnea denies any fevers chills coughing sore throat body aches. He was feeling generalized weakness and difficulty with breathing with ambulation and even during rest for which she decided to call EMS aPatient has a history of decubitus ulcerations on his right heel patient has been under our care for these in the wound care center. Patient reported pain in these areas are being consult for this. Patient reported pain in these areas and we are being consulted for this. For these in the wound care center. 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%, history of renal transplant and 2 in 1992 from a donor and in 1995 from a living donor, history of neck fracture, history of Covid 19 infection, severe aortic stenosis, anemia of chronic disease neuropathy, dialysis Friday History of Any Multi-Drug Resistant Organisms: None Reported Past Surgical History: Appendectomy Additional Past Surgical History / Comment(s): Kidney transplant in 07/28/1992 and 1995 and the patient has a fistula in the left upper extremity Past Anesthesia/Blood Transfusion Reactions: No Reported Reaction Past Psychological History: No Psychological Hx Reported Smoking Status: Former smoker Past Alcohol Use History: Rare Past Drug Use History: None Reported - Past Family History Mother Family Medical History: Cancer Additional Family Medical History / Comment(s): pancreatic cancer Father Family Medical History: CVA/TIA Additional Family Medical History / Comment(s): father of stroke Medications and Allergies Home Medications Medication Instructions Recorded Confirmed Type Atorvastatin [Lipitor] 10 mg PO HS 01/29/22 06/30/23 History Cholecalciferol [Vitamin D3 (25 50 mcg PO DAILY 01/29/22 06/30/23 History Mcg = 1000 Iu)] Sterling-3/Dha/Epa/Fish Oil [Fish Oil 1 cap PO DAILY 01/29/22 06/30/23 History 1,000 mg Softgel] Isosorbide Mononitrate ER [Imdur] 30 mg PO DAILY 01/30/22 06/30/23 History Aspirin 81 mg PO DIRECTED 05/01/22 06/30/23 History rOPINIRole HCL [Requip] 2 mg PO BID 05/01/22 06/30/23 History Folic Acid/Vit B Complex and C 0.8 mg PO DAILY 06/03/22 06/30/23 History [Emy-Catalino Tablet] Metoprolol Succinate (ER) [Toprol 25 mg PO DAILY #30 tab 06/26/22 06/30/23 Rx XL] Bumetanide [BUMEX] 4 mg PO DAILY 08/16/22 06/30/23 History Calcium Acetate [PhosLo] 1,334 mg PO PC-TID 08/16/22 06/30/23 History PARoxetine [Paxil] 5 mg PO DAILY 02/12/23 06/30/23 History allopurinoL [Zyloprim] 100 mg PO DAILY 02/12/23 06/30/23 History oxyCODONE-APAP 5-325MG [Percocet 1 - 1.5 tab PO TID PRN 02/12/23 06/30/23 Histo ry 5-325 mg] Magnesium Oxide 483mg 483 mg PO DAILY 06/30/23 06/30/23 History Allergies Allergy/AdvReac Type Severity Reaction Status Date / Time enalaprilat [From Vasotec] Allergy Swelling Verified 06/30/23 17:26 lisinopril Allergy Swelling Verified 06/30/23 17:26 gabapentin AdvReac Hallucinati Verified 06/30/23 17:26 ons/Nightma res Surgical - Exam Vital Signs Temp Pulse Resp BP Pulse Ox 101.3 F H 80 18 123/63 98 06/30/23 15:37 06/30/23 15:37 06/30/23 15:37 06/30/23 15:37 06/30/23 15:37 - Cardiovascular Patient has diminished pedal pulses bilateralPatient has diminished pedal pulses bilateral with no digital hair with no digital hair there is thinning of the dermis bilateral there is thinning of the dermis bilateral extremities are cool to cool bilateral extremities are cool to cool bilateral - Integumentary Patient has full-thickness ulcerations of the right lower extremity and the medial malleolus and posterior to the and posterior to the Achilles tendon. There is no extending erythema edema.. There is mild pain with palpation of the area the drainage is serosanguineous and there is no odor. - Neurologic All epicritic and pallesthetic sensations are grossly intact symmetrical bilateral - Musculoskeletal Patient has decreased range of motion ankle joint subtalar joint and midtarsal joint and metatarsophalangeal joints bilateral all inverters everters plantar flexors dorsiflexors grossly intact symmetrical bilateral Results - Labs 07/01/23 04:27 06/30/23 16:26 Abnormal Lab Results - Last 24 Hours (Table) 06/30/23 06/30/23 06/30/23 Range/Units 16:26 16:26 17:27 RBC (4.40-5.60) X 10*6/uL Hgb (13.0-17.0) g/dL Hct (39.6-50.0) % MCV (80.0-97.0) FL MCH (27.0-32.0) pg MCHC (32.0-37.0) g/dL RDW (11.5-14.5) % Plt Count 97 L (150-450) k/uL MPV (9.5-12.2) FL Neutrophils # 7.9 H (1.3-7.7) k/uL Lymphocytes # 0.2 L (1.0-4.8) k/uL Eosinophils # (0.04-0.35) X 10*3/uL Immature Plt Fraction (1.1-6.1) % Macrocytosis (manual) Elliptocytes ESR (0-20) mm/Hr VBG pH 7.46 H (7.31-7.41) VBG pCO2 32 L (37-51) mmHg VBG HCO3 22 L (24-28) mmol/L Troponin I 0.104 H* (0.000-0.034) ng/mL C-Reactive Protein (0.00-0.80) mg/dL 07/01/23 07/01/23 Range/Units 04:27 04:27 RBC 2.87 L (4.40-5.60) X 10*6/uL Hgb 9.8 L (13.0-17.0) g/dL Hct 31.3 L (39.6-50.0) % MCV 109.1 H (80.0-97.0) FL MCH 34.1 H (27.0-32.0) pg MCHC 31.3 L (32.0-37.0) g/dL RDW 16.1 H (11.5-14.5) % Plt Count 79 L (150-450) k/uL MPV 14.1 H (9.5-12.2) FL Neutrophils # 7.91 H (1.3-7.7) k/uL Lymphocytes # 0.23 L (1.0-4.8) k/uL Eosinophils # 0.01 L (0.04-0.35) X 10*3/uL Immature Plt Fraction 10.6 H (1.1-6.1) % Macrocytosis (manual) 2+ A Elliptocytes 2+ A ESR 21 H (0-20) mm/Hr VBG pH (7.31-7.41) VBG pCO2 (37-51) mmHg VBG HCO3 (24-28) mmol/L Troponin I (0.000-0.034) ng/mL C-Reactive Protein 7.20 H (0.00-0.80) mg/dL Microbiology - Last 24 Hours (Table) 06/30/23 16:35 Blood Culture Gram Stain - Preliminary Blood 06/30/23 16:20 Blood Culture Gram Stain - Preliminary Blood Assessment and Plan Assessment: Decubitus ulcers of the right lower extremity peripheral arterial disease by lateral Plan: Exam. Review patient's chart. We will order Silver collagen and placed on the wounds and changed every other day and maintain a dry sterile dressing. Also we'll get radiographs to assess the ankle area for any infection or increase in soft tissue volume or any gas in the soft tissue. We will follow
--- NOTE | 2023-07-01 18:48 | XR ---
EXAMINATION TYPE: XR ankle limited RT DATE OF EXAM: 07/01/2023 6:22 PM CLINICAL INDICATION:Male, 77 years old with history of checking wounds on ankle; [facility] COMPARISON: None TECHNIQUE: XR ankle limited RT; ankle is imaged in frontal, lateral and oblique projections. FINDINGS: Severe atherosclerosis of the arterial vasculature. Calcaneal plantar spurring. Multifocal degeneration changes with osteophyte formation and joint space narrowing. No evidence for osseous ero ramiro. IMPRESSION: 1. No evidence of acute fracture. 2. No evidence for osseous erosion to suggest sesamoiditis. 3. Severe atherosclerosis of the arterial vasculature.
[2023-07-01] MEDS: ATORVASTATIN 10 MG TAB PO SCH (21:49)
[2023-07-02] MEDS: MIDODRINE 5 MG TAB PO SCH ×2 (06:50→17:16)
[2023-07-02] MEDS: METOPROLOL SUCCINATE (ER) 25 MG TAB.ER.24H PO SCH (08:14)
[2023-07-02] MEDS: HEPARIN SODIUM,PORCINE 5,000 UNIT/ML 1 ML VIAL SQ SCH ×3 (08:22→23:41)
[2023-07-02] MEDS: ISOSORBIDE MONONITRATE ER 30 MG TAB.ER.24H PO SCH (08:22)
[2023-07-02] MEDS: PARoxetine 10 MG TAB PO SCH (08:32)
[2023-07-02 09:00] LABS: Blood Urea Nitrogen 35.1 mg/dL (9.0-27.0); Chloride 93 mmol/L (96-109); Glucose 94 mg/dL (70-110); Magnesium 2.2 mg/dL (1.5-2.4); Potassium 4.2 mmol/L (3.5-5.5); Sodium 135 mmol/L (135-145)
[2023-07-02] MEDS: ACETAMINOPHEN TAB 325 MG TAB PO PRN (09:22)
[2023-07-02 10:13] LABS: HGB 9.6 g/dL (13.0-17.0); MCH 34.4 pg (27.0-32.0); MCV 107.5 FL (80.0-97.0); Mean Platelet Volume 14.1 FL (9.5-12.2); NRBC Per 100 WBC 0 X 10*3/uL (0.00-0.01); Platelet Count 68 X 10*3/uL (140-440); RBC 2.79 X 10*6/uL (4.40-5.60); RDW 15.8 % (11.5-14.5)
[2023-07-02] MEDS ORDERED: VANCOMYCIN 1,250 MG in SODIUM CHLORIDE 0.9% 250 ML IVPB ONE (12:00)
--- NOTE | 2023-07-02 12:27 | P.PN ---
Subjective Progress Note Date: 07/02/23 Hospital course Patient is a 77-year-old male with a past medical history of congestive heart failure with ejection fraction 20 to 25%, end-stage renal disease on hemodialysis Friday who presents to the ED with shortness of breath and cough. Patient also complaining of right foot pain. In the ED chest x-ray showed findings most consistent with moderate CHF. Patient seen this morning. He states that his shortness of breath is better after he got the dialysis. He states that he still feels weak. He states that his strength is not at his baseline yet. He does not feel ready to go home. 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 Appreciate wound care recommendations from podiatry Acute on chronic systolic heart failure Chronic hypoxic respiratory failure Volume management with hemodialysis. Nephrology to manage Patient currently satting well on his home O2 of 2 L Strict I's and O's Daily weight Continue with cardiac meds which include Imdur and metoprolol. Trend CBC BMP and magnesium Patient states that his breathing is better after he had dialysis Acute on chronic debility PT OT consult Chronic conditions Anemia of chronic disease Hemoglobin stable Severe peripheral arterial disease Stable Resume home meds Hypertension Controlled Resume home meds Hyperlipidemia Resume statin DVT prophylaxis: Subcu heparin 3 times a day Disposition: Depending on hospital course and PT OT eval Objective - Vital Signs Vital signs: Vital Signs Temp 97.9 F 07/02/23 07:55 Pulse 52 L 07/02/23 07:55 Resp 17 07/02/23 07:55 BP 97/51 07/02/23 07:55 Pulse Ox 100 07/02/23 07:55 FiO2 Intake & Output 07/01/23 07/02/23 07/02/23 18:59 06:59 18:59 Intake Total 1000 200 Output Total 3000 Balance -1999 200 Weight 68.039 kg Intake: Oral 500 200 Hemodialysis 500 Output: Hemodialysis 3000 Other: # Voids 1 3 # Bowel Movements 1 - Labs CBC & Chem 7: 07/02/23 05:05 07/02/23 05:05 Labs: Abnormal Lab Results - Last 24 Hours (Table) 07/02/23 07/02/23 Range/Units 05:05 05:05 RBC 2.79 L (4.40-5.60) X 10*6/uL Hgb 9.6 L (13.0-17.0) g/dL Hct 30.0 L (39.6-50.0) % MCV 107.5 H (80.0-97.0) FL MCH 34.4 H (27.0-32.0) pg RDW 15.8 H (11.5-14.5) % Plt Count 68 L (140-440) X 10*3/uL MPV 14.1 H (9.5-12.2) FL Immature Plt Fraction 15.0 H (1.1-6.1) % Chloride 93 L (96-109) mmol/L Anion Gap 15.00 H (4.00-12.00) mmol/L BUN 35.1 H (9.0-27.0) mg/dL Creatinine 4.5 H (0.6-1.5) mg/dL Est GFR (CKD-EPI) 13 L (>=60) BUN/Creatinine Ratio 7.80 L (12.00-20.00) Ratio Calcium 8.0 L (8.7-10.3) mg/dL Microbiology - Last 24 Hours (Table) 06/30/23 16:35 Blood Culture Gram Stain - Preliminary Blood Blood Culture - Preliminary Presumptive MRSA 06/30/23 16:20 Blood Culture Gram Stain - Preliminary Blood Blood Culture - Preliminary Presumptive MRSA
--- NOTE | 2023-07-02 14:32 | NM ---
EXAMINATION TYPE: NM bone 3 phase DATE OF EXAM: 07/02/2023 COMPARISON: 07/01/2023 CLINICAL INDICATION: Male, 77 years old with history of Rule out a similar of the Right foot; Triple phase bone scintigraphy was performed following the injection of 22.7 mCi Tc 99m MDP. Immedia te images and 5.5 hours post injection images acquired. FINDINGS: Flow phase imaging does not demonstrate focal accumulation of radiotracer. Blood pool imaging there r emains similar homogenous uptake throughout the feet. There is mild uptake within the mid foot bilate rally on delayed imaging suggestive of degeneration. IMPRESSION: No evidence for osteomyelitis uptake most compatible with degeneration changes of the midfoot joints.
[2023-07-02] MEDS: oxyCODONE-APAP 5-325MG 1 EACH TAB PO PRN ×2 (15:43→23:22)
[2023-07-02] MEDS: CALCIUM ACETATE 667 MG TAB PO SCH (17:45)
--- NOTE | 2023-07-02 20:12 | P.PN ---
Subjective Patient is seen for follow-up for end-stage renal disease. He is currently having an echocardiogram done. Tolerated hemodialysis well yesterday. UF of 3 L. No significant complaints today. Objective - Vital Signs Vital signs: Vital Signs Temp 97.6 F 07/02/23 14:00 Pulse 54 L 07/02/23 14:00 Resp 16 07/02/23 14:00 BP 102/58 07/02/23 14:00 Pulse Ox 99 07/02/23 14:00 FiO2 Intake & Output 07/02/23 07/02/23 07/03/23 06:59 18:59 06:59 Intake Total 1000 200 Output Total 3000 1 Balance -1999 199 Weight 68.039 kg Intake: Oral 500 200 Hemodialysis 500 Output: Stool 1 Hemodialysis 3000 Other: # Voids 3 - Exam Patient is awake, comfortable, no acute distress Examination of the heart S1 and S2 Examination of the lungs shows decreased breath sounds at the bases Abdomen is soft nontender Examination of lower extremities shows trace edema AUTOCAD exam grossly intact - Labs CBC & Chem 7: 07/02/23 05:05 07/02/23 05:05 Labs: Abnormal Lab Results - Last 24 Hours (Table) 07/02/23 07/02/23 Range/Units 05:05 05:05 RBC 2.79 L (4.40-5.60) X 10*6/uL Hgb 9.6 L (13.0-17.0) g/dL Hct 30.0 L (39.6-50.0) % MCV 107.5 H (80.0-97.0) FL MCH 34.4 H (27.0-32.0) pg RDW 15.8 H (11.5-14.5) % Plt Count 68 L (140-440) X 10*3/uL MPV 14.1 H (9.5-12.2) FL Immature Plt Fraction 15.0 H (1.1-6.1) % Chloride 93 L (96-109) mmol/L Anion Gap 15.00 H (4.00-12.00) mmol/L BUN 35.1 H (9.0-27.0) mg/dL Creatinine 4.5 H (0.6-1.5) mg/dL Est GFR (CKD-EPI) 13 L (>=60) BUN/Creatinine Ratio 7.80 L (12.00-20.00) Ratio Calcium 8.0 L (8.7-10.3) mg/dL Microbiology - Last 24 Hours (Table) 06/30/23 16:35 Blood Culture Gram Stain - Preliminary Blood Blood Culture - Preliminary Presumptive MRSA 06/30/23 16:20 Blood Culture Gram Stain - Preliminary Blood Blood Culture - Preliminary Presumptive MRSA Assessment and Plan Assessment: 1. End-stage renal disease on hemodialysis on a Friday schedule via left arm AV fistula 2. History of CHF with ejection fraction of 20 to 25% 3. Volume overload 4. Mild hyperkalemia with end-stage renal disease 5. Anemia of chronic disease 6. History of failed renal transplant x 2 7. MRSA bacteremia with right foot ulcer. Maintained on vancomycin. Plan: Hemodialysis in a.m. with UF of 2 to 2.5 L as tolerated. Continue IV antibiotics Use midodrine to help with UF
[2023-07-02] MEDS: ATORVASTATIN 10 MG TAB PO SCH (21:39)
[2023-07-03] MEDS: ACETAMINOPHEN TAB 325 MG TAB PO PRN ×2 (00:46→20:46)
--- NOTE | 2023-07-03 04:59 | P.CONS ---
History of Present Illness - Reason for Consult Consult date: 07/02/23 - History of Present Illness Patient is a 77-year-old male with a past medical history significant for heart failure history of renal transplant end-stage renal disease currently on dialysis patient was brought into the hospital for evaluation of decreased activity and lethargy patient also have a ulceration on his right heel for the patient is getting treatment at [facility] patient has been ad mitted to hospital for management of his underlying condition the patient was noticed to be febrile with a temperature of 101.3 F on arrival to the ER patient was not tachycardic hypotensive or hypoxic patient did have a white count of 8.71 BUN and creatinine has been elevated liver enzymes are normal troponin was mildly elevated CRP of 7.20 influenza RSV COVID testing was negative chest x-ray suggested possible CHF patient did have a ankle x-ray no evidence for acute fracture no evidence of bony abnormality patient did have blood cultures drawn came back positive with MRSA patient was started on vancomycin infectious disease was consulted for further management of antibiotic therapy, patient is currently afebrile he is breathing comfortably on 2 L nasal cannula oxygen denies any chest pain shortness of breath or cough no abdominal pain he did have chronic nonhealing wound to the right heel area however denies significant pain did have some drainage 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%, history of renal transplant and 2 in 1992 from a donor and in 1995 from a living donor, history of neck fracture, history of Covid 19 infection, severe aortic stenosis, anemia of chronic disease neuropathy, dialysis Friday History of Any Multi-Drug Resistant Organisms: None Reported Past Surgical History: Appendectomy Additional Past Surgical History / Comment(s): Kidney transplant in 07/28/1992 and 1995 and the patient has a fistula in the left upper extremity Past Anesthesia/Blood Transfusion Reactions: No Reported Reaction Past Psychological History: No Psychological Hx Reported Smoking Status: Former smoker Past Alcohol Use History: Rare Past Drug Use History: None Reported - Past Family History Mother Family Medical History: Cancer Additional Family Medical History / Comment(s): pancreatic cancer Father Family Medical History: CVA/TIA Additional Family Medical History / Comment(s): father of stroke Medications and Allergies Home Medications Medication Instructions Recorded Confirmed Type Atorvastatin [Lipitor] 10 mg PO HS 01/29/22 06/30/23 History Cholecalciferol [Vitamin D3 (25 50 mcg PO DAILY 01/29/22 06/30/23 History Mcg = 1000 Iu)] [place]-3/Dha/Epa/Fish Oil [Fish Oil 1 cap PO DAILY 01/29/22 06/30/23 History 1,000 mg Softgel] Isosorbide Mononitrate ER [Imdur] 30 mg PO DAILY 01/30/22 06/30/23 History Aspirin 81 mg PO DIRECTED 05/01/22 06/30/23 History rOPINIRole HCL [Requip] 2 mg PO BID 05/01/22 06/30/23 History Folic Acid/Vit B Complex and C 0.8 mg PO DAILY 06/03/22 06/30/23 History [Emy-Catalino Tablet] Metoprolol Succinate (ER) [Toprol 25 mg PO DAILY #30 tab 06/26/22 06/30/23 Rx XL] Bumetanide [BUMEX] 4 mg PO DAILY 08/16/22 06/30/23 History Calcium Acetate [PhosLo] 1,334 mg PO PC-TID 08/16/22 06/30/23 History PARoxetine [Paxil] 5 mg PO DAILY 02/12/23 06/30/23 History allopurinoL [Zyloprim] 100 mg PO DAILY 02/12/23 06/30/23 History oxyCODONE-APAP 5-325MG [Percocet 1 - 1.5 tab PO TID PRN 02/12/23 06/30/23 History 5-325 mg] Magnesium Oxide 483mg 483 mg PO DAILY 06/30/23 06/30/23 History Allergies Allergy/AdvReac Type Severity Reaction Status Date / Time enalaprilat [From Vasotec] Allergy Swelling Verified 06/30/23 17:26 lisinopril Allergy Swelling Verified 06/30/23 17:26 gabapentin AdvReac Hallucinati Verified 06/30/23 17:26 ons/Nightma res Physical Exam Vitals: Vital Signs Temp Pulse Resp BP Pulse Ox 07/02/23 07:55 97.9 F 52 L 17 97/51 100 07/02/23 02:00 98 F 57 L 18 96/53 97 07/01/23 20:16 98.8 F 83 18 135/74 07/01/23 20:00 99.2 F 76 15 135/58 98 07/01/23 14:00 98.8 F 54 L 17 102/56 98 Intake and Output 07/01/23 07/02/23 07/02/23 22:59 06:59 14:59 Intake Total 500 500 Output Total 3000 Balance -2500 500 Intake: Oral 500 Hemodialysis 500 Output: Hemodialysis 3000 Other: # Voids 1 3 # Bowel Movements 1 Results CBC & Chem 7: 07/02/23 05:05 07/02/23 05:05 Labs: Abnormal Lab Results - Last 24 Hours (Table) 07/01/23 07/01/23 Range/Units 04:27 04:27 RBC 2.87 L (4.40-5.60) X 10*6/uL Hgb 9.8 L (13.0-17.0) g/dL Hct 31.3 L (39.6-50.0) % MCV 109.1 H (80.0-97.0) FL MCH 34.1 H (27.0-32.0) pg MCHC 31.3 L (32.0-37.0) g/dL RDW 16.1 H (11.5-14.5) % Plt Count 79 L (140-440) X 10*3/uL MPV 14.1 H (9.5-12.2) FL Neutrophils # 7.91 H (1.80-7.70) X 10*3/uL Lymphocytes # 0.23 L (0.90-5.00) X 10*3/uL Eosinophils # 0.01 L (0.04-0.35) X 10*3/uL Immature Plt Fraction 10.6 H (1.1-6.1) % Macrocytosis (manual) 2+ A Elliptocytes 2+ A ESR 21 H (0-20) mm/Hr C-Reactive Protein 7.20 H (0.00-0.80) mg/dL Microbiology - Last 24 Hours (Table) 06/30/23 16:35 Blood Culture Gram Stain - Preliminary Blood 06/30/23 16:20 Blood Culture Gram Stain - Preliminary Blood Assessment and Plan Plan: 1patient with MRSA bacteremia high clinical suspicion is related to his right heel infected ulcer and concern for possible osteomyelitis as patient currently do not have any other obvious focus for this bacteremia 2-blood cultures will be repeated document clearance of his bacteremia 3-check inflammatory markers 4-await bone scan 5-patient to continue vancomycin pharmacy to dose target trough of 15 6-local wound care per podiatry We will follow on clinical condition and cultures to further adjust medication if needed Thank you for this consultation we will follow the patient along with you Dictation was produced using [employer] dictation software. please excuse any grammatical, word or spelling errors. Time with Patient: Greater than 30
[2023-07-03] MEDS: MIDODRINE 5 MG TAB PO SCH ×2 (06:38→17:15)
[2023-07-03] MEDS: HEPARIN SODIUM,PORCINE 5,000 UNIT/ML 1 ML VIAL SQ SCH (07:31)
[2023-07-03] MEDS: METOPROLOL SUCCINATE (ER) 25 MG TAB.ER.24H PO SCH (07:32)
[2023-07-03] MEDS: CHOLECALCIFEROL 25 MCG (1000 IU) TABLET PO SCH (07:41)
[2023-07-03] MEDS: BUMETANIDE 1 MG TAB PO SCH (07:41)
[2023-07-03] MEDS: FOLIC ACID-VIT B COMPLEX-VIT C 1 CAP PO SCH (07:42)
[2023-07-03] MEDS: ISOSORBIDE MONONITRATE ER 30 MG TAB.ER.24H PO SCH (07:42)
[2023-07-03] MEDS: PARoxetine 10 MG TAB PO SCH (07:42)
[2023-07-03] MEDS: CALCIUM ACETATE 667 MG TAB PO SCH ×3 (07:42→17:15)
[2023-07-03] MEDS: allopurinoL 100 MG TAB PO SCH (07:42)
[2023-07-03] MEDS ORDERED: NON FORMULARY DRUG (Omega-3/Dha/Epa/Fish Oil [Fish Oil 1,000 Mg Softgel] 1 EACH Capsule) PO SCH (09:00)
--- NOTE | 2023-07-03 10:29 | CA ---
Transthoracic Echo Report Name: John Benedict Age: 77 Gender: M : 1945 Exam Date: 07/02/2023 11:59 Exam Location: [facility] Ht (in): 69 Wt (lb): 150 Ordering Physician: Vadim Izaguirre MD Attending/Referring Phys: [employer] Disassembler Don Norris RD Procedure CPT: Indications: r/o endocarditis Cardiac Hx: Technical Quality: Fair Contrast 1: Total Dose (mL): Contrast 2: Total Dose (mL): MEASUREMENTS (Male / Female) Normal Values 2D ECHO LV Diastolic Diameter PLAX 5.1 cm 4.2 - 5.9 / 3.9 - 5.3 cm LV Systolic Diameter PLAX 3.8 cm IVS Diastolic Thickness 1.2 cm 0.6 - 1.0 / 0.6 - 0.9 cm LVPW Diastolic Thickness 1.4 cm 0.6 - 1.0 / 0.6 - 0.9 cm LV Relative Wall Thickness 0.5 RV Internal Dim ED PLAX 4.9 cm LVOT Diameter 1.8 cm Aortic Root Diameter 2.8 cm LA Systolic Diameter LX 3.5 cm 3.0 - 4.0 / 2.7 - 3.8 cm LV Diastolic Volume MOD BP 92.6 cm??? 67 - 155 / 56 - 104 cm??? LV Systolic Volume MOD BP 68.1 cm??? 22 - 58 / 19 - 49 cm??? LV Ejection Fraction MOD BP 26.5 % >= 55 % LV Cardiac Index MOD BP 753.6 cm???/min???m??? LV Diastolic Volume MOD 4C 74.2 cm??? LV Systolic Volume MOD 4C 65.1 cm??? LV Ejection Fraction MOD 4C 12.3 % LV Cardiac Index MOD 4C 279.7 cm???/min???m??? LV Diastolic Length 4C 7.9 cm LV Systolic Length 4C 7.7 cm LV Diastolic Volume MOD 2C 112.9 cm??? LV Systolic Volume MOD 2C 70.4 cm??? LV Ejection Fraction MOD 2C 37.6 % LV Cardiac Index MOD 2C 1306.9 cm???/min???m??? LV Diastolic Length 2C 8.1 cm LV Systolic Length 2C 7.8 cm DOPPLER AV Peak Velocity 273.4 cm/s AV Peak Gradient 29.9 mmHg AV Mean Velocity 203.7 cm/s AV Mean Gradient 18.6 mmHg AV Velocity Time Integral 68.4 cm LVOT Peak Velocity 53.9 cm/s LVOT Peak Gradient 1.2 mmHg LVOT Velocity Time Integral 13.4 cm LVOT Stroke Volume 32.4 cm??? LVOT Stroke Volume Index 17.7 ml/m??? LVOT Cardiac Index 995.9 cm???/min???m??? AV Area Cont Eq vti 0.5 cm??? AV Area Cont Eq pk 0.5 cm??? MV Peak Velocity 121.8 cm/s MV Peak Gradient 5.9 mmHg MV Mean Velocity 49.8 cm/s MV Mean Gradient 1.3 mmHg MV Velocity Time Integral 42.5 cm Mitral E Point Velocity 111.8 cm/s Mitral A Point Velocity 41.1 cm/s Mitral E to A Ratio 2.7 MV Deceleration Time 360.6 ms TR Peak Velocity 240.1 cm/s TR Peak Gradient 23.1 mmHg Right Ventricular Systolic Press 33.1 mmHg PV Peak Velocity 164.6 cm/s PV Peak Gradient 10.8 mmHg FINDINGS Left Ventricle Normal LV size. Mild concentric LVH. Globally inpaired LV. Left ventricular ejection fraction is estimated at 20-25 %. Right Ventricle Moderate to severe right ventricular dilatation. Right Atrium Moderate to Severe right atrial dilatation. RA area= 27.5cm2 Left Atrium Moderate left atrial dilatation. Mitral Valve At least moderate mitral annulus calcification. Moderate to severe stenosis. MV area by VTI= 0.7cm2 Aortic Valve Aortic valve not well visualized. Severe AV calcification. Peak gradient= 30mmHg. Mean gradient= 18.6 mmHg. AV area by VTI= 0.5cm2. Tricuspid Valve Structurally normal tricuspid valve. Moderate to severe TR. Pulmonic Valve Pulmonic valve not well visualized. Moderate to severe PI. Pericardium Grossly normal. Aorta Normal size aortic root. CONCLUSIONS Impaired LV systolic function with EF between 20-25% and dilated left ventricle Aortic sclerosis. Mean gradient across the valve is 18 mmHg. Moderate to severe right ventricular dilation Moderate to severe tricuspid regurgitation Previewed by: Dr. Sang Leblanc MD (Electronically Signed) Final Date: 03 July 2023 10:29
--- NOTE | 2023-07-03 10:49 | P.GSCN ---
History of Present Illness Consult date: 07/03/23 Reason for Consult: Dialysis site bleeding Requesting physician: Clare Nelson History of present illness: This is a pleasant 77-year-old male with a past medical history including failed renal transplant with end-stage renal disease on hemodialysis, anemia of chronic disease, thrombocytopenia, chronic wound, heart failure, aortic stenosis with an EF of 20 to 25% who presented to the emergency department for shortness of breath, lethargy. Patient gets dialysis Saturdays. He had been going to all of his dialysis appointments. During this hospitalization he underwent dialysis on Friday without any complications and then yesterday he had bleeding from his fistula site. Patient was recently seen in the emergency department 02/08/2024 for similar episode where he had bleeding status post di alysis and was seen and evaluated by who had to place a suture as there was an open ulcer, likely from repeated access to the same area. He was supposed to follow-up with Dr. Lundberg for fistulogram and possible revision. Patient supposed to get dialysis today however again he started having bleeding yesterday. He now has nonpalpable thrill. Vascular surgery was consulted for evaluation of left upper extremity AV graft. Patient denies any pain and no current bleeding. There is a dressing over the fistula. He currently denies any shortness of breath or chest pain, no abdominal pain, nausea vomiting, fevers or chills. Patient does have positive blood cultures for MRSA, currently on IV vancomycin. Bone scan completed of lower extremities with reported no evidence for osteomyelitis uptake most compatible with degenerative changes of the midfoot joints. Right Ankle x-ray also negative for osteomyelitis. Review of Systems A 14 point review systems was completed all pertinent positives and negatives as stated in the HPI. 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%, history of renal transplant and 2 in 1992 from a donor and in 1995 from a living donor, history of neck fracture, history of Covid 19 infection, severe aortic stenosis, anemia of chronic disease neuropathy, dialysis Friday History of Any Multi-Drug Resistant Organisms: None Reported Past Surgical History: Appendectomy Additional Past Surgical History / Comment(s): Kidney transplant in 07/28/1992 and 1995 and the patient has a fistula in the left upper extremity Past Anesthesia/Blood Transfusion Reactions: No Reported Reaction Past Psychological History: No Psychological Hx Reported Smoking Status: Former smoker Past Alcohol Use History: Rare Past Drug Use History: None Reported - Past Family History Mother Family Medical History: Cancer Additional Family Medical History / Comment(s): pancreatic cancer Father Family Medical History: CVA/TIA Additional Family Medical History / Comment(s): father of stroke Medications and Allergies Home Medications Medication Instructions Recorded Confirmed Type Atorvastatin [Lipitor] 10 mg PO HS 01/29/22 06/30/23 History Cholecalciferol [Vitamin D3 (25 50 mcg PO DAILY 01/29/22 06/30/23 History Mcg = 1000 Iu)] [place]-3/Dha/Epa/Fish Oil [Fish Oil 1 cap PO DAILY 01/29/22 06/30/23 History 1,000 mg Softgel] Isosorbide Mononitrate ER [Imdur] 30 mg PO DAILY 01/30/22 06/30/23 History Aspirin 81 mg PO DIRECTED 05/01/22 06/30/23 History rOPINIRole HCL [Requip] 2 mg PO BID 05/01/22 06/30/23 History Folic Acid/Vit B Complex and C 0.8 mg PO DAILY 06/03/22 06/30/23 History [Emy-Catalino Tablet] Metoprolol Succinate (ER) [Toprol 25 mg PO DAILY #30 tab 06/26/22 06/30/23 Rx XL] Bumetanide [BUMEX] 4 mg PO DAILY 08/16/22 06/30/23 History Calcium Acetate [PhosLo] 1,334 mg PO PC-TID 08/16/22 06/30/23 History PARoxetine [Paxil] 5 mg PO DAILY 02/12/23 06/30/23 History allopurinoL [Zyloprim] 100 mg PO DAILY 02/12/23 06/30/23 History oxyCODONE-APAP 5-325MG [Percocet 1 - 1.5 tab PO TID PRN 02/12/23 06/30/23 History 5-325 mg] Magnesium Oxide 483mg 483 mg PO DAILY 06/30/23 06/30/23 History Allergies Allergy/AdvReac Type Severity Reaction Status Date / Time enalaprilat [From Vasotec] Allergy Swelling Verified 06/30/23 17:26 lisinopril Allergy Swelling Verified 06/30/23 17:26 gabapentin AdvReac Hallucinati Verified 06/30/23 17:26 ons/Nightma res Surgical - Exam Vital Signs Temp Pulse Resp BP Pulse Ox 101.3 F H 80 18 123/63 98 06/30/23 15:37 06/30/23 15:37 06/30/23 15:37 06/30/23 15:37 06/30/23 15:37 General appearance: The patient is alert, oriented, appears in no acute distress. HET: Head is normocephalic and atraumatic. Pupils are equal and reactive. Neck: Supple. Heart: Regular. Lungs: Equal expansion, normal respiratory effort. Abdomen: Soft, nontender, nondistended. Extremities: Left upper extremity AV graft with palpable thrill and no audible bruit. There is a small dressing over fistula without any active bleeding. Neurological: No focal deficits. Results - Labs 07/03/23 06:35 07/03/23 06:35 Abnormal Lab Results - Last 24 Hours (Table) 07/02/23 07/02/23 Range/Units 05:05 05:05 RBC 2.79 L (4.40-5.60) X 10*6/uL Hgb 9.6 L (13.0-17.0) g/dL Hct 30.0 L (39.6-50.0) % MCV 107.5 H (80.0-97.0) FL MCH 34.4 H (27.0-32.0) pg RDW 15.8 H (11.5-14.5) % Plt Count 68 L (140-440) X 10*3/uL MPV 14.1 H (9.5-12.2) FL Immature Plt Fraction 15.0 H (1.1-6.1) % Chloride 93 L (96-109) mmol/L Anion Gap 15.00 H (4.00-12.00) mmol/L BUN 35.1 H (9.0-27.0) mg/dL Creatinine 4.5 H (0.6-1.5) mg/dL Est GFR (CKD-EPI) 13 L (>=60) BUN/Creatinine Ratio 7.80 L (12.00-20.00) Ratio Calcium 8.0 L (8.7-10.3) mg/dL Microbiology - Last 24 Hours (Table) 06/30/23 16:35 Blood Culture Gram Stain - Preliminary Blood Blood Culture - Preliminary Presumptive MRSA 06/30/23 16:20 Blood Culture Gram Stain - Preliminary Blood Blood Culture - Preliminary Presumptive MRSA Diabetes panel 07/02/23 Range/Units 05:05 Sodium 135 (135-145) mmol/L Potassium 4.2 (3.5-5.5) mmol/L Chloride 93 L (96-109) mmol/L Carbon Dioxide 27.0 (21.6-31.8) mmol/L BUN 35.1 H (9.0-27.0) mg/dL Creatinine 4.5 H (0.6-1.5) mg/dL Glucose 94 (70-110) mg/dL Calcium 8.0 L (8.7-10.3) mg/dL Calcium panel 07/02/23 Range/Units 05:05 Calcium 8.0 L (8.7-10.3) mg/dL Pituitary panel 07/02/23 Range/Units 05:05 Sodium 135 (135-145) mmol/L Potassium 4.2 (3.5-5.5) mmol/L Chloride 93 L (96-109) mmol/L Carbon Dioxide 27.0 (21.6-31.8) mmol/L BUN 35.1 H (9.0-27.0) mg/dL Creatinine 4.5 H (0.6-1.5) mg/dL Glucose 94 (70-110) mg/dL Calcium 8.0 L (8.7-10.3) mg/dL Adrenal panel 07/02/23 Range/Units 05:05 Sodium 135 (135-145) mmol/L Potassium 4.2 (3.5-5.5) mmol/L Chloride 93 L (96-109) mmol/L Carbon Dioxide 27.0 (21.6-31.8) mmol/L BUN 35.1 H (9.0-27.0) mg/dL Creatinine 4.5 H (0.6-1.5) mg/dL Glucose 94 (70-110) mg/dL Calcium 8.0 L (8.7-10.3) mg/dL Assessment and Plan Assessment: 1. Thrombosed left fistula 2. End-stage renal disease on hemodialysis 3. Bacteremia, MRSA 4. Thrombocytopenia 5. Fluid overload 6. Anemia of chronic disease 7. Heart failure and aortic stenosis 8. Chronic right lower extremity wounds Plan: 1. Await recommendations from nephrology 2. Will likely plan for temporary HD catheter placement today or tomorrow 3. Await repeat blood cultures 4. Tentative plan will be for tunneled catheter once bacteremia cleared 5. WBC scan ordered to evaluate LUE fistula to rule out as possible source for bacteremia 6. Further recommendations forthcoming per vascular surgeon Thank you for this consultation, we will continue to follow. The impression and plan of care has been dictated as directed. I performed a history and examination of this patient, discussed the same with the dictator. I agree with the dictator's note ,documented as a scribe. Any additional findings or plans will be noted. Patient seen and examined. Await further blood cultures, will place temporary catheter when necessary. Left upper extremity fistula appear thrombosed. There is a large ulceration. Likely would need operative intervention for revision if this is a salvageable site.
[2023-07-03 11:29] LABS: Basophils # (A) 0.03 X 10*3/uL (0.00-0.10); Basophils % (A) 0.7 %; Eosinophils # (A) 0.14 X 10*3/uL (0.04-0.35); Eosinophils % (A) 3.2 %; HCT 27.6 % (39.6-50.0); HGB 8.9 g/dL (13.0-17.0); Immature Platelet Fraction 13.4 % (1.1-6.1); Lymphocytes # (A) 0.53 X 10*3/uL (0.90-5.00); Lymphocytes % (A) 12.1 %; MCHC 32.2 g/dL (32.0-37.0); MCV 105.3 FL (80.0-97.0); Mean Platelet Volume 13.9 FL (9.5-12.2); Monocytes # (A) 0.91 X 10*3/uL (0.20-1.00); Monocytes % (A) 20.8 %; NRBC Per 100 WBC 0 X 10*3/uL (0.00-0.01); Neutrophils # (A) 2.75 X 10*3/uL (1.80-7.70); Neutrophils % (A) 62.7 %; Platelet Count 78 X 10*3/uL (140-440); RBC 2.62 X 10*6/uL (4.40-5.60); RDW 15.6 % (11.5-14.5); WBC 4.38 X 10*3/uL (4.50-10.00)
[2023-07-03 11:38] LABS: Blood Urea Nitrogen 52.1 mg/dL (9.0-27.0); Chloride 93 mmol/L (96-109); Glucose 82 mg/dL (70-110); Potassium 4.1 mmol/L (3.5-5.5); Sodium 136 mmol/L (135-145)
[2023-07-03 11:39] LABS: Calcium 7.5 mg/dL (8.7-10.3)
[2023-07-03 11:43] LABS: Erythrocyte Sedimentation Rate 16 mm/Hr (0-20)
--- NOTE | 2023-07-03 12:16 | P.PN ---
Subjective Progress Note Date: 07/03/23 Hospital course Patient is a 77-year-old male with a past medical history of congestive heart failure with ejection fraction 20 to 25%, end-stage renal disease on hemodialysis Friday who presents to the ED with shortness of breath and cough. Patient also complaining of right foot pain. In the ED chest x-ray showed findings most consistent with moderate CHF. Patient seen this morning. He states that his shortness of breath is better after he got the dialysis. He states that he still feels weak. He states that his strength is not at his baseline yet. He does not feel ready to go home. Physical exam General examination - Alert and Oriented 3 in NAD, appears chronically debilitated Heart - + S1S2 no murmurs Lungs - Clear to auscultation Abdomen soft NT ND +ve BS Extremities - No edema, superficial ulcer on the right foot ankle, deep ulcer on right foot ankle heel with no purulent discharge and no surrounding erythema FOOD TASTER - Moving all 4 extremities spontaneously Psych - Calm and cooperative Assessment and plan MRSA bacteremia Acute on chronic right foot ulcers Suspect source is the wounds on his right foot Resume IV vancomycin Check echocardiogram to rule out endocarditis Chest x-ray negative for osteomyelitis Bone scan negative for osteomyelitis Reviewed infectious disease note Podiatry also following. Appreciate wound care recommendations from podiatry Acute on chronic systolic heart failure Chronic hypoxic respiratory failure Volume management with hemodialysis. Nephrology to manage Patient currently satting well on his home O2 of 2 L Strict I's and O's Daily weight Continue with cardiac meds which include Imdur and metoprolol. Trend CBC BMP and magnesium Patient states that his breathing is better after he had dialysis End-stage renal disease Patient is AV fistula is not working Due to bacteremia patient will have a temporary dialysis catheter placed Once repeat blood cultures are negative patient will then have a tunneled catheter. Bleeding from AV fistula Will discontinue heparin Anemia of chronic disease Hemoglobin is stable Thrombocytopenia suspect due to infection Continue to trend CBC Today platelets are trending down Acute on chronic debility PT OT consult Chronic conditions Anemia of chronic disease Hemoglobin stable Severe peripheral arterial disease Stable Resume home meds Hypertension Controlled Resume home meds Hyperlipidemia Resume statin DVT prophylaxis: Subcu heparin 3 times a day Disposition: Depending on hospital course and PT OT eval Objective - Vital Signs Vital signs: Vital Signs Temp 97.4 F L 01/25/24 07:53 Pulse 55 L 07/03/23 07:53 Resp 18 07/03/23 01:43 BP 121/70 07/03/23 07:53 Pulse Ox 99 07/03/23 07:53 FiO2 Intake & Output 07/02/23 07/03/23 07/03/23 18:59 06:59 18:59 Intake Total 200 358 Output Total 1 Balance 199 358 Weight 68.039 kg Intake: Oral 200 358 Output: Stool 1 Other: # Voids 1 - Labs CBC & Chem 7: 07/03/23 06:35 07/03/23 06:35 Labs: Abnormal Lab Results - Last 24 Hours (Table) 07/03/23 07/03/23 Range/Units 06:35 06:35 WBC 4.38 L (4.50-10.00) X 10*3/uL RBC 2.62 L (4.40-5.60) X 10*6/uL Hgb 8.9 L (13.0-17.0) g/dL Hct 27.6 L (39.6-50.0) % MCV 105.3 H (80.0-97.0) FL MCH 34.0 H (27.0-32.0) pg RDW 15.6 H (11.5-14.5) % Plt Count 78 L (140-440) X 10*3/uL MPV 13.9 H (9.5-12.2) FL Lymphocytes # 0.53 L (0.90-5.00) X 10*3/uL Immature Plt Fraction 13.4 H (1.1-6.1) % Chloride 93 L (96-109) mmol/L Anion Gap 18.00 H (4.00-12.00) mmol/L BUN 52.1 H (9.0-27.0) mg/dL Creatinine 5.6 H (0.6-1.5) mg/dL Est GFR (CKD-EPI) 10 L (>=60) BUN/Creatinine Ratio 9.30 L (12.00-20.00) Ratio Calcium 7.5 L (8.7-10.3) mg/dL Microbiology - Last 24 Hours (Table) 06/30/23 16:35 Blood Culture Gram Stain - Final Blood Blood Culture - Final Methicillin resist S. aureus 06/30/23 16:20 Blood Culture Gram Stain - Final Blood Blood Culture - Final Methicillin resist S. aureus
--- NOTE | 2023-07-03 12:18 | P.PN ---
Subjective Patient is seen for follow-up for end-stage renal disease. Patient was noticed to have bleeding from his fistula yesterday. He has had previous suture placement for bleeding post hemodialysis from the access. This morning there is no thrill noted. Patient was evaluated by vascular surgery and is scheduled for possible thrombectomy and fistulogram today. No bleeding noted currently. MRSA bacteremia based on blood cultures on 06/30/2023 Objective - Vital Signs Vital signs: Vital Signs Temp 97.4 F L 07/03/23 07:53 Pulse 55 L 07/03/23 07:53 Resp 18 07/03/23 01:43 BP 121/70 07/03/23 07:53 Pulse Ox 99 07/03/23 07:53 FiO2 Intake & Output 07/02/23 07/03/23 07/03/23 18:59 06:59 18:59 Intake Total 200 358 Output Total 1 Balance 199 358 Weight 68.039 kg Intake: Oral 200 358 Output: Stool 1 Other: # Voids 1 - Exam Patient is awake, comfortable, no acute distress Examination of the heart S1 and S2 Examination of the lungs shows decreased breath sounds at the bases Abdomen is soft nontender Examination of lower extremities shows trace edema. 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 exam grossly intact - Labs CBC & Chem 7: 07/03/23 06:35 07/03/23 06:35 Labs: Abnormal Lab Results - Last 24 Hours (Table) 07/03/23 07/03/23 Range/Units 06:35 06:35 WBC 4.38 L (4.50-10.00) X 10*3/uL RBC 2.62 L (4.40-5.60) X 10*6/uL Hgb 8.9 L (13.0-17.0) g/dL Hct 27.6 L (39.6-50.0) % MCV 105.3 H (80.0-97.0) FL MCH 34.0 H (27.0-32.0) pg RDW 15.6 H (11.5-14.5) % Plt Count 78 L (140-440) X 10*3/uL MPV 13.9 H (9.5-12.2) FL Lymphocytes # 0.53 L (0.90-5.00) X 10*3/uL Immature Plt Fraction 13.4 H (1.1-6.1) % Chloride 93 L (96-109) mmol/L Anion Gap 18.00 H (4.00-12.00) mmol/L BUN 52.1 H (9.0-27.0) mg/dL Creatinine 5.6 H (0.6-1.5) mg/dL Est GFR (CKD-EPI) 10 L (>=60) BUN/Creatinine Ratio 9.30 L (12.00-20.00) Ratio Calcium 7.5 L (8.7-10.3) mg/dL Microbiology - Last 24 Hours (Table) 06/30/23 16:35 Blood Culture Gram Stain - Final Blood Blood Culture - Final Methicillin resist S. aureus 06/30/23 16:20 Blood Culture Gram Stain - Final Blood Blood Culture - Final Methicillin resist S. aureus Assessment and Plan Assessment: 1. End-stage renal disease on hemodialysis on a Friday schedule via left arm AV fistula 2. History of CHF with ejection fraction of 20 to 25% 3. Volume overload 4. Mild hyperkalemia with end-stage renal disease 5. Anemia of chronic disease 6. History of failed renal transplant x 2 7. MRSA bacteremia with right foot ulcer. Maintained on vancomycin. 8. Thrombosed left arm AV fistula scheduled for thrombectomy and fistulogram today. Plan: Hemodialysis after thrombectomy Continue IV antibiotics Use midodrine to help with UF
[2023-07-03] MEDS: oxyCODONE-APAP 5-325MG 1 EACH TAB PO PRN ×2 (14:37→22:32)
--- NOTE | 2023-07-03 17:56 | CDI ---
Documentation Clarification Form Date: 07/03/2023 03:34:00 PM From: Meli Gongora RN, CCDS Phone: [phone] Admit Date: 06/30/2023 06:32:00 PM Patient Name: John Benedict Visit Number: [id number] Discharge Date: ATTENTION: The Clinical Documentation Specialists (CDI) and [facility] Coding Staff appreciate your assistance in clarifying documentation. Please respond to the clarification below the line at the bottom and electronically sign. The CDI & [facility] Coding staff will review the response and follow-up if needed. Please note: Queries are made part of the Legal Health Record. If you have any questions, please contact the author of this message via ITS. Dr. Vadim Izaguirre The patient has Methicillin resist S. aureus blood cultures drawn on 06/30/23 . Based on this information and the findings below, is there an additional diagnosis that is clinically appropriate for this patient? 07/01 attending progress notes: Patient had 2 out of 2 blood cultures positive for Staph aureus. Patient does have a deep wound on his right foot. I suspect this is the source of his infection. 07/02 ID: patient with MRSA bacteremia high clinical suspicion is related to his right heel infected ulcer History/Risk Factors: Heart Failure, Dialysis, Renal Disease, CVA, renal transplant and 2, fistula in the left upper extremity, Right foot, there is stage I ulcer (per ED assessment) Clinical Indicators: 77-year-old man who reportedly is here for decreased activity/lethargy. WBC 8.5 , HGB 10.6, HCT 33.2, K+ 5.7, PLT 97, BUN 62 CR 5.30 Troponin 1.104 Lactic acid: 1.9 06/30 VS: 123/63 80 18 101.3 98% 5/L NC 06/30 (19:00) 118/64 74 Treatment: Vancomycin 1,250 MG IVPB 07/01-124 PTD Rocephin 2 GM IVPB Once 06/30 Is there an additional diagnosis that is clinically appropriate for this patient? [ X ] Sepsis, with MRSA Bacteremia present on admission [ ] MRSA Bacteremia without Sepsis [ ] Other, please specify [ ] Unable to determine SIRS Criteria: 2 or more of the following may indicate SIRS Temperature < 96.8F (36C) or > 101.0F (38.3C) Heart Rate > 90 bpm Respiratory Rate > 20 breaths/min or PaCO2 < 32 mmHg White Blood Cell Count > 12,000 or < 4,000 cells/mm3 or > 10% bands (Template Last Reviewed: June 2022) MTDD
[2023-07-03] MEDS: ATORVASTATIN 10 MG TAB PO SCH (20:46)
--- NOTE | 2023-07-04 01:58 | P.PN ---
Subjective Progress Note Date: 07/03/23 Principal diagnosis: Reason for follow-up visit MRSA bacteremia This is a telehealth visit Patient is a 77-year-old male with a past medical history significant for heart failure history of renal transplant end-stage renal disease currently on dialysis patient was brought into the hospital for evaluation of decreased activity and lethargy patient also have a ulceration on his right heel for the patient is getting treatment at [facility], the patient did have a right forearm graft for dialysis which seem to be thrombosed and did have evidence of MRSA bacteremia. On today's evaluation that is 07/03/2023 patient remains to be afebrile, the patient is breathing comfortably and is currently on 2 L nasal cannula oxygen, the patient denies having any chest pain no significant cough or sputum production patient denies having abdominal pain no nausea no vomiting and no diarrhea has been reported denies any worsening pain to the heel wound. Patient did have white count of 4.38 sed rate is 16 creatinine is 5.6 CRP 7.20 blood culture with MRSA repeat blood cultures pending. Objective - Vital Signs Vital signs: Vital Signs Temp 97.4 F L 07/03/23 07:53 Pulse 55 L 07/03/23 07:53 Resp 18 07/03/23 01:43 BP 121/70 07/03/23 07:53 Pulse Ox 99 07/03/23 07:53 FiO2 Intake & Output 07/02/23 07/03/23 07/03/23 18:59 06:59 18:59 Intake Total 200 358 Output Total 1 Balance 199 358 Weight 68.039 kg Intake: Oral 200 358 Output: Stool 1 Other: # Voids 1 - Exam Elderly male lying in bed in no distress Respiratory system unlabored breathing decreased breath sound the base Heart S1-S2 regular Abdominal soft no tenderness Extremities no edema feet Exam completed with the help of INTEGRATED LOGISTICS OPERATIONS MANAGER - Labs CBC & Chem 7: 07/04/23 05:43 07/04/23 05:43 Labs: Abnormal Lab Results - Last 24 Hours (Table) 07/02/23 Range/Units 05:05 RBC 2.79 L (4.40-5.60) X 10*6/uL Hgb 9.6 L (13.0-17.0) g/dL Hct 30.0 L (39.6-50.0) % MCV 107.5 H (80.0-97.0) FL MCH 34.4 H (27.0-32.0) pg RDW 15.8 H (11.5-14.5) % Plt Count 68 L (140-440) X 10*3/uL MPV 14.1 H (9.5-12.2) FL Immature Plt Fraction 15.0 H (1.1-6.1) % Microbiology - Last 24 Hours (Table) 06/30/23 16:35 Blood Culture Gram Stain - Final Blood Blood Culture - Final Methicillin resist S. aureus 06/30/23 16:20 Blood Culture Gram Stain - Final Blood Blood Culture - Final Methicillin resist S. aureus Assessment and Plan (1) MRSA bacteremia Current Visit: Yes Status: Acute Code(s): R78.81 - BACTEREMIA; B95.62 - METHICILLIN RESIS STAPH INFCT CAUSING DISEASES CLASSD [facility] SNOMED Code(s): 89699978556572934 Plan: 1patient with MRSA bacteremia high clinical suspicion is related to his right heel infected ulcer and concern for possible osteomyelitis, however the wound scan was negative patient also have a thrombosed right arm AV graft which could be the source of this bacteremia, WBC scan has been ordered however not a very reliable testing 2-blood cultures has been repeated document clearance of his bacteremia 3--patient to continue vancomycin pharmacy to dose target trough of 15 Dictation was produced using [employer] dictation software. please excuse any grammatical, word or spelling errors. Time with Patient: Less than 30
[2023-07-04] MEDS: MIDODRINE 5 MG TAB PO SCH ×2 (06:50→13:38)
[2023-07-04] MEDS: oxyCODONE-APAP 5-325MG 1 EACH TAB PO PRN ×2 (08:15→18:06)
[2023-07-04] MEDS: METOPROLOL SUCCINATE (ER) 25 MG TAB.ER.24H PO SCH (08:15)
[2023-07-04 08:55] LABS: Basophils # (A) 0.02 X 10*3/uL (0.00-0.10); Basophils % (A) 0.4 %; Eosinophils # (A) 0.18 X 10*3/uL (0.04-0.35); Eosinophils % (A) 3.8 %; HCT 27.9 % (39.6-50.0); Lymphocytes # (A) 0.53 X 10*3/uL (0.90-5.00); Lymphocytes % (A) 11.1 %; MCH 34.2 pg (27.0-32.0); MCHC 32.3 g/dL (32.0-37.0); MCV 106.1 FL (80.0-97.0); Mean Platelet Volume 13.9 FL (9.5-12.2); Monocytes # (A) 1.06 X 10*3/uL (0.20-1.00); Monocytes % (A) 22.2 %; NRBC Per 100 WBC 0 X 10*3/uL (0.00-0.01); Neutrophils # (A) 2.97 X 10*3/uL (1.80-7.70); Neutrophils % (A) 62.3 %; Platelet Count 80 X 10*3/uL (140-440); RBC 2.63 X 10*6/uL (4.40-5.60); RDW 15.5 % (11.5-14.5); WBC 4.77 X 10*3/uL (4.50-10.00)
[2023-07-04] MEDS ORDERED: VANCOMYCIN 1,250 MG in SODIUM CHLORIDE 0.9% 250 ML IVPB ONE (09:00)
[2023-07-04 09:02] LABS: Magnesium 2.1 mg/dL (1.5-2.4)
[2023-07-04 09:10] LABS: BUN/Creat Ratio 9.49 Ratio (12.00-20.00); Blood Urea Nitrogen 64.5 mg/dL (9.0-27.0); Calcium 7.3 mg/dL (8.7-10.3); Carbon Dioxide 25.6 mmol/L (21.6-31.8); Chloride 92 mmol/L (96-109); Glucose 85 mg/dL (70-110); Potassium 5.2 mmol/L (3.5-5.5); Sodium 136 mmol/L (135-145)
[2023-07-04] MEDS: CHOLECALCIFEROL 25 MCG (1000 IU) TABLET PO SCH (10:37)
[2023-07-04] MEDS: allopurinoL 100 MG TAB PO SCH (10:38)
[2023-07-04] MEDS: CALCIUM ACETATE 667 MG TAB PO SCH ×3 (10:38→18:07)
[2023-07-04] MEDS: ISOSORBIDE MONONITRATE ER 30 MG TAB.ER.24H PO SCH (10:38)
--- NOTE | 2023-07-04 10:38 | P.PN ---
Subjective Progress Note Date: 07/04/23 Principal diagnosis: Malfunctioning left fistula Patient was seen and examined today as a follow-up. He remains afebrile. Repeat blood cultures preliminary negative at 24 hours. He denies any pain on the left upper extremity. WBC scan ordered however since patient had a recent bone scan radiology will not do until Friday so this test will be canceled. Plan for temporary hemodialysis catheter placement. Objective - Vital Signs Vital signs: Vital Signs Temp 97.8 F 07/04/23 07:16 Pulse 55 L 07/04/23 07:16 Resp 19 07/04/23 07:16 BP 111/59 07/04/23 07:16 Pulse Ox 97 07/04/23 07:16 FiO2 Intake & Output 07/03/23 07/04/23 07/04/23 18:59 06:59 18:59 Intake Total 712 450 Balance 712 450 Intake: Oral 712 450 Other: # Voids 1 3 - Exam General appearance: The patient is alert, oriented, appears in no acute dis tress. HET: Head is normocephalic and atraumatic. Pupils are equal and reactive. Neck: Supple. Heart: Regular. Lungs: Equal expansion, normal respiratory effort. Abdomen: Soft, nontender, nondistended. Extremities: Left upper extremity AV graft with palpable thrill and no audible bruit. There is a small dressing over fistula without any active bleeding. Neurological: No focal deficits. - Labs CBC & Chem 7: 07/04/23 05:43 07/04/23 05:43 Labs: Abnormal Lab Results - Last 24 Hours (Table) 07/03/23 07/03/23 Range/Units 06:35 06:35 WBC 4.38 L (4.50-10.00) X 10*3/uL RBC 2.62 L (4.40-5.60) X 10*6/uL Hgb 8.9 L (13.0-17.0) g/dL Hct 27.6 L (39.6-50.0) % MCV 105.3 H (80.0-97.0) FL MCH 34.0 H (27.0-32.0) pg RDW 15.6 H (11.5-14.5) % Plt Count 78 L (140-440) X 10*3/uL MPV 13.9 H (9.5-12.2) FL Lymphocytes # 0.53 L (0.90-5.00) X 10*3/uL Immature Plt Fraction 13.4 H (1.1-6.1) % Chloride 93 L (96-109) mmol/L Anion Gap 18.00 H (4.00-12.00) mmol/L BUN 52.1 H (9.0-27.0) mg/dL Creatinine 5.6 H (0.6-1.5) mg/dL Est GFR (CKD-EPI) 10 L (>=60) BUN/Creatinine Ratio 9.30 L (12.00-20.00) Ratio Calcium 7.5 L (8.7-10.3) mg/dL Microbiology - Last 24 Hours (Table) 07/02/23 05:05 Blood Culture - Preliminary Blood 06/30/23 16:35 Blood Culture Gram Stain - Final Blood Blood Culture - Final Methicillin resist S. aureus 06/30/23 16:20 Blood Culture Gram Stain - Final Blood Blood Culture - Final Methicillin resist S. aureus Assessment and Plan Assessment: 1. Thrombosed left fistula 2. End-stage renal disease on hemodialysis 3. Bacteremia, MRSA 4. Thrombocytopenia 5. Fluid overload 6. Anemia of chronic disease 7. Heart failure and aortic stenosis 8. Chronic right lower extremity wounds Plan: 1. Dialysis per nephrology 2. Temporary HD catheter placed right femoral vein 3. Await repeat blood cultures 4. Tentative plan will be for tunneled catheter once bacteremia cleared 5. WBC scan canceled 6. Patient will follow-up with Dr. Monica Randall and plan for outpatient fistula revision/explantation Thank you for this consultation, we will continue to follow. The impression and plan of care has been dictated as directed. Dr. Lundberg I performed a history and examination of this patient, discussed the same with the dictator. I agree with the dictator's note ,documented as a scribe. Any additional findings or plans will be noted.
--- NOTE | 2023-07-04 12:04 | P.PCN ---
Date of Procedure: 07/04/23 Preoperative Diagnosis: ESRD on HD, bacteremia, thrombosed left upper extremity graft Postoperative Diagnosis: same Procedure(s) Performed: Ultrasound guided right common femoral vein temporary dialysis catheter Anesthesia: local Surgeon: Tj Lundberg Estimated Blood Loss (ml): 5 Pathology: none sent Condition: stable Disposition: floor Indications for Procedure: 77 year old gentleman with history of ESRD on HD via left upper extremity AVG who has been bleeding from an ulceration and ultimately thrombosed due to pressure control. The ulceration is large and won't be able to be used in the future and requires a revision is in need for temporary dialysis. Description of Procedure: The right groin was prepped and draped in the usual fashion. Local anesthetic was then placed overlying the femoral vein. Ultrasound was used and femoral vein was compressible and without thrombus. Under ultrasound guidance the vein was cannulated. Guidewire was passed. Dilator advanced on top of the guidewire. A 20cm curved catheter was then placed in usual fashion and was secured with 3-0 silk. Dressing applied. The patient tolerated the procedure well.
[2023-07-04] MEDS: BUMETANIDE 1 MG TAB PO SCH (12:25)
[2023-07-04] MEDS: FOLIC ACID-VIT B COMPLEX-VIT C 1 CAP PO SCH (12:25)
--- NOTE | 2023-07-04 13:38 | P.PN ---
Subjective Progress Note Date: 07/04/23 Hospital course Patient is a 77-year-old male with a past medical history of congestive heart failure with ejection fraction 20 to 25%, end-stage renal disease on hemodialysis Friday who presents to the ED with shortness of breath and cough. Patient also complaining of right foot pain. In the ED chest x-ray showed findings most consistent with moderate CHF. Patient's blood cultures came back positive for MRSA. Patient does have ulcers on his right foot which could be the source of the infection. Patient also had a clotted AV graft which could also be the source of the infection. Patient did have a bone scan that was negative for osteomyelitis. WBC scan is pending to rule out AV graft infection. Infectious disease is following the patient. Since patient is AV graft was clotted patient had a temporary dialysis catheter placed on 07/04/2023. Plan is once the bacteremia is resolved to put in a tunneled catheter. Patient seen this morning. Patient states that his shortness of breath is improving. This morning patient had a temporary dialysis catheter placed. 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 Will defer to infectious disease if patient needs ATA to rule out endocarditis Chest x-ray negative for osteomyelitis Bone scan negative for osteomyelitis WBC scan ordered to rule out AV graft infection Reviewed infectious disease note Podiatry also following. Appreciate wound care recommendations from podiatry Acute on chronic systolic heart failure Chronic hypoxic respiratory failure Volume management with hemodialysis. Nephrology to manage Patient currently satting well on his home O2 of 2 L Strict I's and O's Daily weight Continue with cardiac meds which include Imdur and metoprolol. Trend CBC BMP and magnesium Patient states that his breathing is better after he had dialysis End-stage renal disease Patient is AV graft is not working Due to bacteremia patient had a temporary dialysis catheter placed today Once repeat blood cultures are negative patient will then have a tunneled catheter. Bleeding from AV fistula Will discontinue heparin Hemoglobin is stable Anemia of chronic disease Hemoglobin is stable Thrombocytopenia suspect due to infection Continue to trend CBC Platelets are improving today Acute on chronic debility PT OT consult Chronic conditions Severe peripheral arterial disease Stable Resume home meds Hypertension Controlled Resume home meds Hyperlipidemia Resume statin DVT prophylaxis: Subcu heparin 3 times a day Disposition: Depending on hospital course and PT OT eval Objective - Vital Signs Vital signs: Vital Signs Temp 97.8 F 07/04/23 07:16 Pulse 55 L 07/04/23 07:25 Resp 19 07/04/23 07:25 BP 111/59 07/04/23 07:16 Pulse Ox 97 07/04/23 07:16 FiO2 Intake & Output 07/03/23 07/04/23 07/04/23 18:59 06:59 18:59 Intake Total 712 450 Output Total 1 Balance 712 450 -1 Intake: Oral 712 450 Output: Stool 1 Other: # Voids 1 3 - Labs CBC & Chem 7: 07/04/23 05:43 07/04/23 05:43 Labs: Abnormal Lab Results - Last 24 Hours (Table) 07/04/23 07/04/23 Range/Units 05:43 05:43 RBC 2.63 L (4.40-5.60) X 10*6/uL Hgb 9.0 L (13.0-17.0) g/dL Hct 27.9 L (39.6-50.0) % MCV 106.1 H (80.0-97.0) FL MCH 34.2 H (27.0-32.0) pg RDW 15.5 H (11.5-14.5) % Plt Count 80 L (140-440) X 10*3/uL MPV 13.9 H (9.5-12.2) FL Lymphocytes # 0.53 L (0.90-5.00) X 10*3/uL Monocytes # 1.06 H (0.20-1.00) X 10*3/uL Chloride 92 L (96-109) mmol/L Anion Gap 18.40 H (4.00-12.00) mmol/L BUN 64.5 H (9.0-27.0) mg/dL Creatinine 6.8 H (0.6-1.5) mg/dL Est GFR (CKD-EPI) 8 L (>=60) BUN/Creatinine Ratio 9.49 L (12.00-20.00) Ratio Calcium 7.3 L (8.7-10.3) mg/dL Microbiology - Last 24 Hours (Table) 07/02/23 05:05 Blood Culture - Preliminary Blood 06/30/23 16:35 Blood Culture Gram Stain - Final Blood Blood Culture - Final Methicillin resist S. aureus 06/30/23 16:20 Blood Culture Gram Stain - Final Blood Blood Culture - Final Methicillin resist S. aureus
--- NOTE | 2023-07-04 19:31 | P.PN ---
Subjective Patient is seen for follow-up for end-stage renal disease. MRSA bacteremia based on blood cultures on 06/30/2023 Status post temporary dialysis catheter placement as thrombectomy could not be performed on the AV fistula and patient will need tunneled catheter for hemodialysis. Plan is for further intervention down the road on the AV fistula for new access formation. Scheduled for hemodialysis today. Objective - Vital Signs Vital signs: Vital Signs Temp 97.3 F L 07/04/23 13:52 Pulse 52 L 07/04/23 13:52 Resp 19 07/04/23 13:52 BP 105/66 07/04/23 13:52 Pulse Ox 100 07/04/23 13:52 FiO2 Intake & Output 07/04/23 07/04/23 07/05/23 06:59 18:59 06:59 Intake Total 450 Output Total 1 Balance 450 -1 Intake: Oral 450 Output: Stool 1 Other: # Voids 3 2 - Exam Patient is awake, comfortable, no acute distress Examination of the heart S1 and S2 Examination of the lungs shows decreased breath sounds at the bases Abdomen is soft nontender Examination of lower extremities shows trace edema. 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 exam grossly intact - Labs CBC & Chem 7: 07/04/23 05:43 07/04/23 05:43 Labs: Abnormal Lab Results - Last 24 Hours (Table) 07/04/23 07/04/23 Range/Units 05:43 05:43 RBC 2.63 L (4.40-5.60) X 10*6/uL Hgb 9.0 L (13.0-17.0) g/dL Hct 27.9 L (39.6-50.0) % MCV 106.1 H (80.0-97.0) FL MCH 34.2 H (27.0-32.0) pg RDW 15.5 H (11.5-14.5) % Plt Count 80 L (140-440) X 10*3/uL MPV 13.9 H (9.5-12.2) FL Lymphocytes # 0.53 L (0.90-5.00) X 10*3/uL Monocytes # 1.06 H (0.20-1.00) X 10*3/uL Chloride 92 L (96-109) mmol/L Anion Gap 18.40 H (4.00-12.00) mmol/L BUN 64.5 H (9.0-27.0) mg/dL Creatinine 6.8 H (0.6-1.5) mg/dL Est GFR (CKD-EPI) 8 L (>=60) BUN/Creatinine Ratio 9.49 L (12.00-20.00) Ratio Calcium 7.3 L (8.7-10.3) mg/dL Microbiology - Last 24 Hours (Table) 07/02/23 05:05 Blood Culture - Preliminary Blood Assessment and Plan Assessment: 1. End-stage renal disease on hemodialysis on a Friday schedule via left arm AV fistula. AV fistula has thrombosed. Patient will need further intervention for new abscess formation. In the meantime for tunneled dialysis catheter will be placed but could not be done today due to bacteremia. Patient currently has temporary dialysis catheter. 2. History of CHF with ejection fraction of 20 to 25% 3. Volume overload 4. Mild hyperkalemia with end-stage renal disease 5. Anemia of chronic disease 6. History of failed renal transplant x 2 7. MRSA bacteremia with right foot ulcer. Maintained on vancomycin. 8. Thrombosed left arm AV fistula Plan: Hemodialysis today. Continue IV antibiotics Use midodrine to help with UF
[2023-07-04] MEDS: PARoxetine 10 MG TAB PO SCH (19:38)
[2023-07-04] MEDS: ATORVASTATIN 10 MG TAB PO SCH (20:18)
[2023-07-04] MEDS: ACETAMINOPHEN TAB 325 MG TAB PO PRN (22:28)
--- NOTE | 2023-07-04 22:42 | P.PN ---
Subjective Progress Note Date: 07/04/23 Principal diagnosis: Reason for follow-up visit MRSA bacteremia This is a telehealth visit Patient is a 77-year-old male with a past medical history significant for heart failure history of renal transplant end-stage renal disease currently on dialysis patient was brought into the hospital for evaluation of decreased activity and lethargy patient also have a ulceration on his right heel for the patient is getting treatment at [facility], the patient did have a right forearm graft for dialysis which seem to be thrombosed and did have evidence of MRSA bacteremia. On today's evaluation that is 07/04/2023, the patient is afebrile, the patient is breathing comfortably on 2 L nasal cannula oxygen, the patient denies having any shortness of breath chest pain or cough.Patient denies having any abdominal pain no nausea vomiting or any diarrhea, patient did have a right femoral vein temporary dialysis catheter placement for thrombosed left lower extremity graft. Blood culture repeated 07/02/2023 so far negative white count of 4.77 creatinine 6.8, Vanco random level of 19 Objective - Vital Signs Vital signs: Vital Signs Temp 97.8 F 07/04/23 07:16 Pulse 55 L 07/04/23 07:16 Resp 19 07/04/23 07:16 BP 111/59 07/04/23 07:16 Pulse Ox 97 07/04/23 07:16 FiO2 Intake & Output 07/03/23 07/04/23 07/04/23 18:59 06:59 18:59 Intake Total 712 450 Balance 712 450 Intake: Oral 712 450 Other: # Voids 1 3 - Exam Elderly male lying in bed in no distress Respiratory system unlabored breathing decreased breath sound the base Heart S1-S2 regular Abdominal soft no tenderness Extremities no edema feet Exam completed with the help of IT TRAINER - Labs CBC & Chem 7: 07/04/23 05:43 07/04/23 05:43 Labs: Abnormal Lab Results - Last 24 Hours (Table) 07/03/23 07/03/23 Range/Units 06:35 06:35 WBC 4.38 L (4.50-10.00) X 10*3/uL RBC 2.62 L (4.40-5.60) X 10*6/uL Hgb 8.9 L (13.0-17.0) g/dL Hct 27.6 L (39.6-50.0) % MCV 105.3 H (80.0-97.0) FL MCH 34.0 H (27.0-32.0) pg RDW 15.6 H (11.5-14.5) % Plt Count 78 L (140-440) X 10*3/uL MPV 13.9 H (9.5-12.2) FL Lymphocytes # 0.53 L (0.90-5.00) X 10*3/uL Immature Plt Fraction 13.4 H (1.1-6.1) % Chloride 93 L (96-109) mmol/L Anion Gap 18.00 H (4.00-12.00) mmol/L BUN 52.1 H (9.0-27.0) mg/dL Creatinine 5.6 H (0.6-1.5) mg/dL Est GFR (CKD-EPI) 10 L (>=60) BUN/Creatinine Ratio 9.30 L (12.00-20.00) Ratio Calcium 7.5 L (8.7-10.3) mg/dL Microbiology - Last 24 Hours (Table) 07/02/23 05:05 Blood Culture - Preliminary Blood 06/30/23 16:35 Blood Culture Gram Stain - Final Blood Blood Culture - Final Methicillin resist S. aureus 06/30/23 16:20 Blood Culture Gram Stain - Final Blood Blood Culture - Final Methicillin resist S. aureus Assessment and Plan (1) MRSA bacteremia Current Visit: Yes Status: Acute Code(s): R78.81 - BACTEREMIA; B95.62 - METHICILLIN RESIS STAPH INFCT CAUSING DISEASES CLASSD [facility] SNOMED Code(s): 19602794765411585 Plan: 1patient with MRSA bacteremia high clinical suspicion is related to his right heel infected ulcer and concern for possible osteomyelitis, however the wound scan was negative patient also have a thrombosed right arm AV graft which could be the source of this bacteremia, 2-blood cultures has been repeated document clearance of his bacteremia 3--patient to continue vancomycin pharmacy to dose target trough of 15 and monitor clinical course closely Dictation was produced using [employer] dictation software. please excuse any grammatical, word or spelling errors. Time with Patient: Less than 30
[2023-07-05] MEDS: oxyCODONE-APAP 5-325MG 1 EACH TAB PO PRN ×3 (01:57→20:26)
[2023-07-05] MEDS: ACETAMINOPHEN TAB 325 MG TAB PO PRN (04:32)
[2023-07-05] MEDS: MIDODRINE 5 MG TAB PO SCH ×2 (06:28→12:27)
[2023-07-05] MEDS: ISOSORBIDE MONONITRATE ER 30 MG TAB.ER.24H PO SCH (08:57)
[2023-07-05] MEDS: METOPROLOL SUCCINATE (ER) 25 MG TAB.ER.24H PO SCH (08:57)
[2023-07-05] MEDS: CHOLECALCIFEROL 25 MCG (1000 IU) TABLET PO SCH (08:57)
[2023-07-05] MEDS: BUMETANIDE 1 MG TAB PO SCH (08:57)
[2023-07-05] MEDS: CALCIUM ACETATE 667 MG TAB PO SCH ×3 (08:57→16:55)
[2023-07-05] MEDS: allopurinoL 100 MG TAB PO SCH (08:57)
[2023-07-05] MEDS: PARoxetine 10 MG TAB PO SCH (08:58)
[2023-07-05] MEDS: FOLIC ACID-VIT B COMPLEX-VIT C 1 CAP PO SCH (08:58)
[2023-07-05 09:24] LABS: BUN/Creat Ratio 10.14 Ratio (12.00-20.00); Blood Urea Nitrogen 42.6 mg/dL (9.0-27.0); Calcium 7.2 mg/dL (8.7-10.3); Carbon Dioxide 24.4 mmol/L (21.6-31.8); Chloride 95 mmol/L (96-109); Glucose 86 mg/dL (70-110); Potassium 4.7 mmol/L (3.5-5.5); Sodium 133 mmol/L (135-145)
[2023-07-05 10:13] LABS: Basophils # (A) 0.02 X 10*3/uL (0.00-0.10); Basophils % (A) 0.5 %; Eosinophils # (A) 0.14 X 10*3/uL (0.04-0.35); Eosinophils % (A) 3.4 %; HCT 29.7 % (39.6-50.0); HGB 9.4 g/dL (13.0-17.0); Immature Platelet Fraction 13.4 % (1.1-6.1); Lymphocytes # (A) 0.61 X 10*3/uL (0.90-5.00); Lymphocytes % (A) 14.7 %; MCH 33.7 pg (27.0-32.0); MCHC 31.6 g/dL (32.0-37.0); MCV 106.5 FL (80.0-97.0); Mean Platelet Volume 14.1 FL (9.5-12.2); Monocytes # (A) 0.72 X 10*3/uL (0.20-1.00); Monocytes % (A) 17.3 %; NRBC Per 100 WBC 0 X 10*3/uL (0.00-0.01); Neutrophils # (A) 2.65 X 10*3/uL (1.80-7.70); Neutrophils % (A) 63.9 %; Platelet Count 67 X 10*3/uL (140-440); RBC 2.79 X 10*6/uL (4.40-5.60); RDW 15.5 % (11.5-14.5); WBC 4.15 X 10*3/uL (4.50-10.00)
--- NOTE | 2023-07-05 11:36 | P.PN ---
Subjective Patient is seen for follow-up for end-stage renal disease. MRSA bacteremia based on blood cultures on 06/30/2023 Status post temporary dialysis catheter placement as thrombectomy could not be performed on the AV fistula and patient will need tunneled catheter for hemodialysis once bacteremia is cleared. Plan is for further intervention down the road on the AV fistula for new access formation. Seen on hemodialysis today. Tolerating treatment well. Repeat blood cultures on 07/02/2023 negative thus far. Objective - Vital Signs Vital signs: Vital Signs Temp 97.4 F L 07/05/23 06:45 Pulse 59 L 07/05/23 06:45 Resp 18 07/05/23 06:45 BP 135/73 07/05/23 06:45 Pulse Ox 100 07/05/23 06:45 FiO2 Intake & Output 07/04/23 07/05/23 07/05/23 18:59 06:59 18:59 Intake Total 500 240 Output Total 1 1 Balance -1 499 240 Intake: Oral 500 240 Output: Stool 1 1 Other: # Voids 2 1 # Bowel Movements 1 - Exam Patient is awake, comfortable, no acute distress Examination of the heart S1 and S2 Examination of the lungs shows decreased breath sounds at the bases Abdomen is soft nontender Examination of lower extremities shows trace edema. 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 - Labs CBC & Chem 7: 07/05/23 06:08 07/05/23 06:08 Labs: Abnormal Lab Results - Last 24 Hours (Table) 07/05/23 07/05/23 Range/Units 06:08 06:08 WBC 4.15 L (4.50-10.00) X 10*3/uL RBC 2.79 L (4.40-5.60) X 10*6/uL Hgb 9.4 L (13.0-17.0) g/dL Hct 29.7 L (39.6-50.0) % MCV 106.5 H (80.0-97.0) FL MCH 33.7 H (27.0-32.0) pg MCHC 31.6 L (32.0-37.0) g/dL RDW 15.5 H (11.5-14.5) % Plt Count 67 L (140-440) X 10*3/uL MPV 14.1 H (9.5-12.2) FL Lymphocytes # 0.61 L (0.90-5.00) X 10*3/uL Immature Plt Fraction 13.4 H (1.1-6.1) % Sodium 133 L (135-145) mmol/L Chloride 95 L (96-109) mmol/L Anion Gap 13.60 H (4.00-12.00) mmol/L BUN 42.6 H (9.0-27.0) mg/dL Creatinine 4.2 H (0.6-1.5) mg/dL Est GFR (CKD-EPI) 14 L (>=60) BUN/Creatinine Ratio 10.14 L (12.00-20.00) Ratio Calcium 7.2 L (8.7-10.3) mg/dL Microbiology - Last 24 Hours (Table) 07/02/23 05:05 Blood Culture - Preliminary Blood Assessment and Plan Assessment: 1. End-stage renal disease on hemodialysis on a Friday schedule via left arm AV fistula. AV fistula has thrombosed. Patient will need further intervention for new abscess formation. In the meantime for tunneled dialysis catheter will be placed but could not be done today due to bacteremia. Patient currently has temporary dialysis catheter. 2. History of CHF with ejection fraction of 20 to 25% 3. Volume overload 4. Mild hyperkalemia with end-stage renal disease 5. Anemia of chronic disease 6. History of failed renal transplant x 2 7. MRSA bacteremia with right foot ulcer. Maintained on vancomycin. Repeat blood cultures on 07/02/2023 negative thus far. 8. Thrombosed left arm AV fistula Plan: Hemodialysis today. Continue IV antibiotics Use midodrine to help with UF
--- NOTE | 2023-07-05 12:31 | P.PN ---
Subjective Progress Note Date: 07/05/23 Patient seen and examined. A temporary catheter placed yesterday. Getting dialysis today. No complaints Objective - Vital Signs Vital signs: Vital Signs Temp 97.4 F L 07/05/23 06:45 Pulse 59 L 07/05/23 06:45 Resp 18 07/05/23 06:45 BP 135/73 07/05/23 06:45 Pulse Ox 100 07/05/23 06:45 FiO2 Intake & Output 07/04/23 07/05/23 07/05/23 18:59 06:59 18:59 Intake Total 500 240 Output Total 1 1 Balance -1 499 240 Intake: Oral 500 240 Output: Stool 1 1 Other: # Voids 2 1 # Bowel Movements 1 - Exam No acute distress resting comfortably. Right groin sheath in place. Mild serosanguineous drainage on the dressing. No hematoma noted. Getting dialysis currently - Labs CBC & Chem 7: 07/05/23 06:08 07/05/23 06:08 Labs: Abnormal Lab Results - Last 24 Hours (Table) 07/05/23 07/05/23 Range/Units 06:08 06:08 WBC 4.15 L (4.50-10.00) X 10*3/uL RBC 2.79 L (4.40-5.60) X 10*6/uL Hgb 9.4 L (13.0-17.0) g/dL Hct 29.7 L (39.6-50.0) % MCV 106.5 H (80.0-97.0) FL MCH 33.7 H (27.0-32.0) pg MCHC 31.6 L (32.0-37.0) g/dL RDW 15.5 H (11.5-14.5) % Plt Count 67 L (140-440) X 10*3/uL MPV 14.1 H (9.5-12.2) FL Lymphocytes # 0.61 L (0.90-5.00) X 10*3/uL Immature Plt Fraction 13.4 H (1.1-6.1) % Sodium 133 L (135-145) mmol/L Chloride 95 L (96-109) mmol/L Anion Gap 13.60 H (4.00-12.00) mmol/L BUN 42.6 H (9.0-27.0) mg/dL Creatinine 4.2 H (0.6-1.5) mg/dL Est GFR (CKD-EPI) 14 L (>=60) BUN/Creatinine Ratio 10.14 L (12.00-20.00) Ratio Calcium 7.2 L (8.7-10.3) mg/dL Microbiology - Last 24 Hours (Table) 07/02/23 05:05 Blood Culture - Preliminary Blood Assessment and Plan Assessment: 1. Thrombosed left fistula 2. End-stage renal disease on hemodialysis 3. Bacteremia, MRSA 4. Thrombocytopenia 5. Fluid overload 6. Anemia of chronic disease 7. Heart failure and aortic stenosis 8. Chronic right lower extremity wounds Plan: Continue dialysis as recommended per nephrology. Await further culture results. Currently most recent culture results are negative. Awaiting tagged WBC scan Friday
--- NOTE | 2023-07-05 13:28 | P.PN ---
Subjective Progress Note Date: 07/05/23 (delayed charting seen at 1030) Patient is a 77-year-old male with end-stage renal disease on dialysis status post renal transplant, prior stroke, cardiomyopathy with ejection fraction of 25%, and severe aortic stenosis who presented to the hospital with shortness of breath. On arrival to the ER he was found to be febrile with a temperature of 101.3. Initial laboratory analysis was remarkable for hemoglobin 10.6, platelets 97, potassium 5.7, BUN 62, creatinine 5.30, troponin 0.104, and BNP of 119,000. Influenza A/B/RSV/COVID-19 testing was negative. Initial chest x-ray was consistent with fluid overload from congestive heart failure. Patient was admitted and nephrology was consulted for fluid optimization. He was seen by nephrology and underwent hemodialysis. Blood cultures came back positive with MRSA. Patient was noted to have right lower extremity wounds and podiatry was consulted. They recommended silver collagen every other day. Due to bacteremia infectious disease was consulted. They recommended a bone scan which came back negative for osteomyelitis with degenerative changes in the midfoot joints. Patient also underwent echocardiogram which demonstrated ejection fraction 20 to 25% with moderate to severe right ventricular dilatation and moderate to severe tricuspid regurgitation. Aortic valve was not well-visualized. Patient had a temporary hemodialysis catheter placed as his AV fistula had thrombosed. Tagged white blood cell scan was ordered to assess for possible abscess formation. Patient seen and examined at bedside. He complains of being tired. He does have some left foot pain but no right foot pain. He denies any nausea or vomiting. He denies any diarrhea. He does report some shortness of breath which is chronic. Vital signs reviewed General: Nontoxic, no distress, appears at stated age Cardiovascular: S1S2 reg, no murmur Lungs: CTA bilateral, no rhonchi, no rales, no accessory muscle use Abdominal: Soft, nontender to palpation, no guarding Ext: No gross muscle atrophy, no edema b/l lower extremities, no contractures Neuro: CN II-XI grossly intact, no focal neuro deficits Psych: Alert, oriented, appropriate affect Assessment/Plan: MRSA bacteremia, source unknown End-stage renal disease on hemodialysis with malfunctioning AV fistula Acute exacerbation of systolic congestive heart failure with ejection fraction 20 to 25% -Nuclear medicine tagged white blood cell scan ordered and will be performed on 07/07/2023 -Vascular recommendations: Continue dialysis, await tagged white blood cell scan -Repeat blood cultures negative x 72 hours -Nephrology recommendations: Hemodialysis -Infectious disease recommendation: Continue with vancomycin -Vancomycin with pharmacy dosing, monitor trough levels for signs of toxicity -Aspirin 81 mg daily, Lipitor 10 mg at night, Bumex 4 mg daily, Imdur 30 mg daily, metoprolol 25 mg daily -Patient has been requiring midodrine to help maintain blood pressure with he modialysis Anemia of chronic disease Thrombocytopenia -Suspect thrombocytopenia is due to infection -Follow CBC -No indication for transfusion Chronic right foot ulceration -Podiatry recommendations reviewed: Silver dressing every other day. Chronic debility -PT/OT recommendations Chronic conditions: Severe peripheral arterial disease Hypertension Dyslipidemia Imaging: Nuclear medicine bone scan: Negative for signs of osteomyelitis Data Review: Labs reviewed from today include CBC and basic metabolic profile which are remarkable for hemoglobin 9.4, platelets 67, sodium 133, BUN 42, creatinine 4.2. DVT prophylaxis: SCDs Anticipated discharge date: Pending clinical course Anticipated discharge place: Pending clinical course This dictation was prepared using [employer] voice recognition software. Though every attempt is made to correct errors during dictation some may still exist. Objective - Vital Signs Vital signs: Vital Signs Temp 97.4 F L 07/05/23 06:45 Pulse 59 L 07/05/23 06:45 Resp 18 07/05/23 06:45 BP 135/73 07/05/23 06:45 Pulse Ox 100 07/05/23 06:45 FiO2 Intake & Output 07/04/23 07/05/23 07/05/23 18:59 06:59 18:59 Intake Total 500 240 Output Total 1 1 Balance -1 499 240 Intake: Oral 500 240 Output: Stool 1 1 Other: # Voids 2 1 # Bowel Movements 1 - Labs CBC & Chem 7: 07/05/23 06:08 07/05/23 06:08 Labs: Abnormal Lab Results - Last 24 Hours (Table) 07/05/23 07/05/23 Range/Units 06:08 06:08 WBC 4.15 L (4.50-10.00) X 10*3/uL RBC 2.79 L (4.40-5.60) X 10*6/uL Hgb 9.4 L (13.0-17.0) g/dL Hct 29.7 L (39.6-50.0) % MCV 106.5 H (80.0-97.0) FL MCH 33.7 H (27.0-32.0) pg MCHC 31.6 L (32.0-37.0) g/dL RDW 15.5 H (11.5-14.5) % Plt Count 67 L (140-440) X 10*3/uL MPV 14.1 H (9.5-12.2) FL Lymphocytes # 0.61 L (0.90-5.00) X 10*3/uL Immature Plt Fraction 13.4 H (1.1-6.1) % Sodium 133 L (135-145) mmol/L Chloride 95 L (96-109) mmol/L Anion Gap 13.60 H (4.00-12.00) mmol/L BUN 42.6 H (9.0-27.0) mg/dL Creatinine 4.2 H (0.6-1.5) mg/dL Est GFR (CKD-EPI) 14 L (>=60) BUN/Creatinine Ratio 10.14 L (12.00-20.00) Ratio Calcium 7.2 L (8.7-10.3) mg/dL Microbiology - Last 24 Hours (Table) 07/02/23 05:05 Blood Culture - Preliminary Blood
[2023-07-05] MEDS: ATORVASTATIN 10 MG TAB PO SCH (20:26)
[2023-07-06] MEDS: oxyCODONE-APAP 5-325MG 1 EACH TAB PO PRN ×2 (02:15→17:38)
[2023-07-06] MEDS: MIDODRINE 5 MG TAB PO SCH ×2 (06:32→17:31)
[2023-07-06] MEDS: CALCIUM ACETATE 667 MG TAB PO SCH ×3 (08:13→17:31)
[2023-07-06] MEDS: CHOLECALCIFEROL 25 MCG (1000 IU) TABLET PO SCH (08:13)
[2023-07-06] MEDS: METOPROLOL SUCCINATE (ER) 25 MG TAB.ER.24H PO SCH (08:13)
[2023-07-06] MEDS: allopurinoL 100 MG TAB PO SCH (08:13)
[2023-07-06] MEDS: BUMETANIDE 1 MG TAB PO SCH (08:13)
[2023-07-06] MEDS: FOLIC ACID-VIT B COMPLEX-VIT C 1 CAP PO SCH (08:14)
[2023-07-06] MEDS: PARoxetine 10 MG TAB PO SCH (08:14)
[2023-07-06] MEDS: ISOSORBIDE MONONITRATE ER 30 MG TAB.ER.24H PO SCH (08:14)
[2023-07-06] MEDS ORDERED: VANCOMYCIN 1,250 MG in SODIUM CHLORIDE 0.9% 250 ML IVPB ONE (09:00)
[2023-07-06 10:01] LABS: HCT 32.8 % (39.0-53.0); HGB 10.4 gm/dL (13.0-17.5); Hypochromasia Marked; MCH 35.6 pg (25.0-35.0); MCHC 31.7 g/dL (31.0-37.0); MCV 112.3 fL (80.0-100.0); Macrocytosis Marked; Mean Platelet Volume 11.1; Platelet Count 66 k/uL (150-450); RBC 2.92 m/uL (4.30-5.90); RDW 15.9 % (11.5-15.5); WBC 4.5 k/uL (3.8-10.6)
--- NOTE | 2023-07-06 11:21 | P.PN ---
Subjective Patient is seen for follow-up for end-stage renal disease. MRSA bacteremia on blood cultures on 06/30/2023 Status post temporary dialysis catheter placement as thrombectomy could not be performed on the AV fistula and patient will need tunneled catheter for hemodialysis once bacteremia is cleared. Plan is for further intervention down the road on the AV fistula for new access formation. Repeat blood cultures on 07/02/2023 negative thus far. Noted to have bleeding from temporary right femoral catheter. Objective - Vital Signs Vital signs: Vital Signs Temp 98 F 07/06/23 06:56 Pulse 64 07/06/23 06:56 Resp 17 07/06/23 06:56 BP 118/64 07/06/23 06:56 Pulse Ox 96 07/06/23 06:56 FiO2 Intake & Output 07/05/23 07/06/23 07/06/23 18:59 06:59 18:59 Intake Total 640 240 Output Total 2400 Balance -1760 240 Weight 64.6 kg Intake: Oral 240 240 Hemodialysis 400 Output: Hemodialysis 2400 Other: # Bowel Movements 1 - Exam Patient is awake, comfortable, no acute distress Examination of the heart S1 and S2 Examination of the lungs shows decreased breath sounds at the bases Abdomen is soft nontender Examination of lower extremities shows trace edema. Right foot is wrapped. 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 End-stage renal disease on hemodialysis on a Friday schedule via left arm AV fistula. AV fistula has thrombosed. Patient will need further intervention for new abscess formation. In the meantime for tunneled di alysis catheter will be placed but could not be done today due to bacteremia. Patient currently has temporary dialysis catheter. 2. History of CHF with ejection fraction of 20 to 25% 3. Volume overload 4. Mild hyperkalemia with end-stage renal disease 5. Anemia of chronic disease 6. History of failed renal transplant x 2 7. MRSA bacteremia with right foot ulcer. Maintained on vancomycin. Repeat blood cultures on 07/02/2023 negative thus far. 8. Thrombosed left arm AV fistula 9. Bleeding from site of temporary femoral dialysis catheter Plan: DDAVP x 1 today Next hemodialysis on 07/08/2023 Continue IV antibiotics Use midodrine to help with UF
[2023-07-06] MEDS ORDERED: DESMOPRESSIN ACETATE 20 MCG in SODIUM CHLORIDE 0.9% 50 ML IVPB ONE (12:00)
--- NOTE | 2023-07-06 14:04 | P.PN ---
Subjective Progress Note Date: 07/06/23 (delayed charting seen at 0930) Patient is a 77-year-old male with end-stage renal disease on dialysis status post renal transplant, prior stroke, cardiomyopathy with ejection fraction of 25%, and severe aortic stenosis who presented to the hospital with shortness of breath. On arrival to the ER he was found to be febrile with a temperature of 101.3. Initial laboratory analysis was remarkable for hemoglobin 10.6, platelets 97, potassium 5.7, BUN 62, creatinine 5.30, troponin 0.104, and BNP of 119,000. Influenza A/B/RSV/COVID-19 testing was negative. Initial chest x-ray was consistent with fluid overload from congestive heart failure. Patient was admitted and nephrology was consulted for fluid optimization. He was seen by nephrology and underwent hemodialysis. Blood cultures came back positive with MRSA. Patient was noted to have right lower extremity wounds and podiatry was consulted. They recommended silver collagen every other day. Due to bacteremia infectious disease was consulted. They recommended a bone scan which came back negative for osteomyelitis with degenerative changes in the midfoot joints. Patient also underwent echocardiogram which demonstrated ejection fraction 20 to 25% with moderate to severe right ventricular dilatation and moderate to severe tricuspid regurgitation. Aortic valve was not well-visualized. Patient had a temporary hemodialysis catheter placed as his AV fistula had thrombosed. Tagged white blood cell scan was ordered to assess for possible abscess formation. Patient seen and examined at bedside. He continues to complain of bilateral feet pain. He denies any chest pain, shortness of breath, nausea, vomiting. He also complains of feeling slightly more confused today. He states that he had some bleeding from his right groin temporary hemodialysis catheter yesterday. It was then controlled but recurred. They have placed a pressure bag in its place. No other complaints currently. Vital signs reviewed General: Nontoxic, no distress, appears at stated age Cardiovascular: S1S2 reg, no murmur Lungs: CTA bilateral, no rhonchi, no rales, no accessory muscle use Abdominal: Soft, nontender to palpation, no guarding Ext: No gross muscle atrophy, no edema b/l lower extremities, no contractures HD cath right groin with clot noted under dressing, no active bleed noted. Neuro: CN II-XI grossly intact, no focal neuro deficits Psych: Alert, oriented, appropriate affect Assessment/Plan: MRSA bacteremia, source unknown End-stage renal disease on hemodialysis with malfunctioning AV fistula Acute exacerbation of systolic congestive heart failure with ejection fraction 20 to 25% -Nuclear medicine tagged white blood cell scan ordered and will be performed on 07/07/2023 - Await further vascular recommendations -Repeat blood cultures negative -Nephrology note reviewed: DDAVP x 1 today, next HD 07/08/2023. -Await further Infectious disease recommendations -Vancomycin with pharmacy dosing, monitor trough levels for signs of toxicity -Aspirin 81 mg daily, Lipitor 10 mg at night, Bumex 4 mg daily, Imdur 30 mg daily, metoprolol 25 mg daily -Patient has been requiring midodrine to help maintain blood pressure with hemodialysis Bleeding from temporary HD cath - continue with pressure - DDAVP ordered by nephrology Anemia of chronic disease Thrombocytopenia -Suspect thrombocytopenia is due to infection -Follow CBC -No indication for transfusion Chronic right foot ulceration -Podiatry recommendations reviewed: Silver dressing every other day. Chronic debility -PT/OT recommendations Chronic conditions: Severe peripheral arterial disease Hypertension Dyslipidemia Imaging: None new Data Review: Labs reviewed from today include CBC which is remarkable for hemoglobin 10.4, hematocrit 32.8, and platelets of 66. DVT prophylaxis: SCDs Anticipated discharge date: Pending clinical course Anticipated discharge place: Pending clinical course This dictation was prepared using [employer] voice recognition software. Though every attempt is made to correct errors during dictation some may still exist. Objective - Vital Signs Vital signs: Vital Signs Temp 98 F 07/06/23 06:56 Pulse 64 07/06/23 06:56 Resp 17 07/06/23 06:56 BP 118/64 07/06/23 06:56 Pulse Ox 96 07/06/23 06:56 FiO2 Intake & Output 07/05/23 07/06/23 07/06/23 18:59 06:59 18:59 Intake Total 640 240 Output Total 2400 Balance -1760 240 Weight 64.6 kg Intake: Oral 240 240 Hemodialysis 400 Output: Hemodialysis 2400 Other: # Bowel Movements 1 - Labs CBC & Chem 7: 07/06/23 05:54 07/05/23 06:08 Labs: Abnormal Lab Results - Last 24 Hours (Table) 07/06/23 Range/Units 05:54 RBC 2.92 L (4.30-5.90) m/uL Hgb 10.4 L (13.0-17.5) gm/dL Hct 32.8 L (39.0-53.0) % MCV 112.3 H (80.0-100.0) fL MCH 35.6 H (25.0-35.0) pg RDW 15.9 H (11.5-15.5) % Plt Count 66 L (150-450) k/uL Macrocytosis Marked A Microbiology - Last 24 Hours (Table) 07/02/23 05:05 Blood Culture - Preliminary Blood
--- NOTE | 2023-07-06 14:35 | P.PN ---
Subjective Progress Note Date: 07/06/23 Principal diagnosis: ESRD Patient seen and examined. Doing well. No bleeding or current issues with groin catheter. Overnight issues reviewed Objective - Vital Signs Vital signs: Vital Signs Temp 97.3 F L 07/06/23 13:22 Pulse 50 L 07/06/23 13:22 Resp 18 07/06/23 13:22 BP 113/59 07/06/23 13:22 Pulse Ox 100 07/06/23 13:22 FiO2 Intake & Output 07/05/23 07/06/23 07/06/23 18:59 06:59 18:59 Intake Total 640 240 Output Total 2400 Balance -1760 240 Weight 64.6 kg Intake: Oral 240 240 Hemodialysis 400 Output: Hemodialysis 2400 Other: # Bowel Movements 1 - Constitutional General appearance: Present: average body habitus, cooperative - EENT Eyes: Present: PERRLA - Respiratory Respiratory: bilateral: CTA - Cardiovascular Rhythm: regular - Neurologic Neurologic: Present: CNII-XII intact - Psychiatric Psychiatric: Present: A&O x's 3, appropriate affect - Additional findings Additional findings: right femoral catheter with surrounding dry blood, no active bleeding - Labs CBC & Chem 7: 07/06/23 05:54 07/05/23 06:08 Labs: Abnormal Lab Results - Last 24 Hours (Table) 07/06/23 Range/Units 05:54 RBC 2.92 L (4.30-5.90) m/uL Hgb 10.4 L (13.0-17.5) gm/dL Hct 32.8 L (39.0-53.0) % MCV 112.3 H (80.0-100.0) fL MCH 35.6 H (25.0-35.0) pg RDW 15.9 H (11.5-15.5) % Plt Count 66 L (150-450) k/uL Macrocytosis Marked A Microbiology - Last 24 Hours (Table) 07/02/23 05:05 Blood Culture - Preliminary Blood Assessment and Plan Assessment: ESRD on HD MRSA Bacteremia Bleeding right temporary HD catheter Anemia Chronic right foot ulceration Plan: Continue HD per Nephrology Most recent blood culture is negative. Plan for tunneled catheter early next week
[2023-07-06] MEDS: ACETAMINOPHEN TAB 325 MG TAB PO PRN (15:12)
[2023-07-06] MEDS: ATORVASTATIN 10 MG TAB PO SCH (20:34)
[2023-07-07] MEDS: MIDODRINE 5 MG TAB PO SCH ×2 (06:35→17:03)
[2023-07-07] MEDS: CALCIUM ACETATE 667 MG TAB PO SCH ×3 (08:01→17:03)
[2023-07-07] MEDS: METOPROLOL SUCCINATE (ER) 25 MG TAB.ER.24H PO SCH (08:02)
[2023-07-07] MEDS: BUMETANIDE 1 MG TAB PO SCH (08:02)
[2023-07-07] MEDS: CHOLECALCIFEROL 25 MCG (1000 IU) TABLET PO SCH (08:02)
[2023-07-07] MEDS: allopurinoL 100 MG TAB PO SCH (08:02)
[2023-07-07] MEDS: ISOSORBIDE MONONITRATE ER 30 MG TAB.ER.24H PO SCH (08:02)
[2023-07-07] MEDS: FOLIC ACID-VIT B COMPLEX-VIT C 1 CAP PO SCH (08:03)
[2023-07-07] MEDS: oxyCODONE-APAP 5-325MG 1 EACH TAB PO PRN ×3 (08:09→21:15)
[2023-07-07 09:28] LABS: HGB 9.2 g/dL (13.0-17.0); MCH 33.6 pg (27.0-32.0); MCHC 31.7 g/dL (32.0-37.0); MCV 105.8 FL (80.0-97.0); NRBC Per 100 WBC 0 X 10*3/uL (0.00-0.01); Platelet Count 88 X 10*3/uL (140-440); RBC 2.74 X 10*6/uL (4.40-5.60); RDW 15.4 % (11.5-14.5); WBC 4.75 X 10*3/uL (4.50-10.00)
[2023-07-07] MEDS: PARoxetine 10 MG TAB PO SCH (10:28)
[2023-07-07] MEDS ORDERED: DARBEPOETIN ALFA 40 MCG/0.4 ML SYRINGE SQ SCH (10:30)
--- NOTE | 2023-07-07 10:31 | P.PN ---
Subjective Patient is seen in follow-up for end-stage renal disease. He is maintained on Friday schedule. Last dialysis was on July 05, 2023. Has a right femoral catheter at this time. Denies chest pain or shortness of breath. Hemodynamically stable. On nasal cannula. Vital signs are stable. General: No acute distress. HEENT: Head exam is unremarkable. On nasal cannula. LUNGS: No audible rhonchi or wheezes. HEART: Rate and Rhythm are regular. ABDOMEN: Nontender. EXTREMITITES: No edema. Objective - Vital Signs Vital signs: Vital Signs Temp 97.5 F L 07/07/23 07:36 Pulse 68 07/07/23 08:00 Resp 19 07/07/23 07:36 BP 145/77 07/07/23 08:00 Pulse Ox 99 07/07/23 08:00 FiO2 Intake & Output 07/06/23 07/07/23 07/07/23 18:59 06:59 18:59 Intake Total 240 240 Balance 240 240 Weight 63.5 kg Intake: Oral 240 240 Other: # Voids 3 2 - Labs CBC & Chem 7: 07/07/23 04:20 07/05/23 06:08 Labs: Abnormal Lab Results - Last 24 Hours (Table) 07/07/23 Range/Units 04:20 RBC 2.74 L (4.40-5.60) X 10*6/uL Hgb 9.2 L (13.0-17.0) g/dL Hct 29.0 L (39.6-50.0) % MCV 105.8 H (80.0-97.0) FL MCH 33.6 H (27.0-32.0) pg MCHC 31.7 L (32.0-37.0) g/dL RDW 15.4 H (11.5-14.5) % Plt Count 88 L (140-440) X 10*3/uL MPV 14.0 H (9.5-12.2) FL Assessment and Plan Plan: Assessment: 1. End-stage renal disease maintained on hemodialysis on Friday schedule. 2. Thrombosed AV fistula. Currently using right femoral catheter. Awaits permacath placement once cleared by ID. 3. MRSA bacteremia on IV antibiotics. ID following. 4. Chronic kidney disease mineral bone disease maintained on PhosLo. 5. Anemia of chronic kidney disease. Plan: Hemodialysis tomorrow. Add Aranesp. Monitor vancomycin levels. Dose to be adjusted for renal function. Permacath placement once cleared by ID. Hold midodrine for systolic blood pressure greater than 110.
--- NOTE | 2023-07-07 12:01 | P.PN ---
Subjective Progress Note Date: 07/06/23 Principal diagnosis: Reason for follow-up visit MRSA bacteremia This is a telehealth visit Patient is a 77-year-old male with a past medical history significant for heart failure history of renal transplant end-stage renal disease currently on dialysis patient was brought into the hospital for evaluation of decreased activity and lethargy patient also have a ulceration on his right heel for the patient is getting treatment at [facility], the patient did have a right forearm graft for dialysis which seem to be thrombosed and did have evidence of MRSA bacteremia. On today's evaluation that is 07/06/2023 patient remains to be afebrile, the patient is breathing comfortably on 2 L nasal cannula oxygen, the patient denies having any chest pain did have occasional cough but no sputum production patient denies having abdominal pain no nausea no vomiting and no diarrhea has been reported, the patient denies any worsening pain to the heel wound. No new symptoms Patient did have white count of 4.5 sed rate is 16 creatinine is 4.2 CRP 7.20 blood culture with MRSA repeat blood cultures so far negative Objective - Vital Signs Vital signs: Vital Signs Temp 97.3 F L 07/06/23 13:22 Pulse 50 L 07/06/23 13:22 Resp 18 07/06/23 13:22 BP 113/59 07/06/23 13:22 Pulse Ox 100 07/06/23 13:22 FiO2 Intake & Output 07/05/23 07/06/23 07/06/23 18:59 06:59 18:59 Intake Total 640 240 Output Total 2400 Balance -1760 240 Weight 64.6 kg Intake: Oral 240 240 Hemodialysis 400 Output: Hemodialysis 2400 Other: # Voids 3 # Bowel Movements 1 - Exam Elderly male lying in bed in no distress Respiratory system unlabored breathing decreased breath sound the base Heart S1-S2 regular Abdominal soft no tenderness Extremities no edema feet Exam completed with the help of ASSISTANT STORE DIRECTOR - Labs CBC & Chem 7: 07/07/23 04:20 07/05/23 06:08 Labs: Abnormal Lab Results - Last 24 Hours (Table) 07/06/23 Range/Units 05:54 RBC 2.92 L (4.30-5.90) m/uL Hgb 10.4 L (13.0-17.5) gm/dL Hct 32.8 L (39.0-53.0) % MCV 112.3 H (80.0-100.0) fL MCH 35.6 H (25.0-35.0) pg RDW 15.9 H (11.5-15.5) % Plt Count 66 L (150-450) k/uL Macrocytosis Marked A Assessment and Plan (1) MRSA bacteremia Current Visit: Yes Status: Acute Code(s): R78.81 - BACTEREMIA; B95.62 - METHICILLIN RESIS STAPH IN[facility] Code(s): 15587521077536534 Plan: 1patient with MRSA bacteremia high clinical suspicion is related to his right heel infected ulcer and concern for possible osteomyelitis, however the wound scan was negative patient also have a thrombosed right arm AV graft which could be the source of this bacteremia patient chest x-ray was not suggestive of pneumonia bone scan was negative for any osteomyelitis 2-blood cultures has been repeated and so far negative 3--patient to continue vancomycin pharmacy to dose target trough of 15, waiting for the WBC scan Dictation was produced using Level dictation software. please excuse any grammatical, word or spelling errors. Time with Patient: Less than 30
--- NOTE | 2023-07-07 12:03 | P.PN ---
Subjective Progress Note Date: 07/07/23 Principal diagnosis: Reason for follow-up visit MRSA bacteremia Patient is a 77-year-old male with a past medical history significant for heart failure history of renal transplant end-stage renal disease currently on dialysis patient was brought into the hospital for evaluation of decreased activity and lethargy patient also have a ulceration on his right heel for the patient is getting treatment at [facility], the patient did have a right forearm graft for dialysis which seem to be thrombosed and did have evidence of MRSA bacteremia. On today's evaluation that is 07/06/2023 patient remains to be afebrile, the patient is breathing comfortably on 2 L nasal cannula oxygen, the patient denies having any chest pain did have occasional cough but no sputum production patient denies having abdominal pain no nausea no vomiting and no diarrhea has been reported, the patient denies any worsening pain to the heel wound. No new symptoms Patient did have white count of 4.5 sed rate is 16 creatinine is 4.2 CRP 7.20 blood culture with MRSA repeat blood cultures so far negative Objective - Vital Signs Vital signs: Vital Signs Temp 97.5 F L 07/07/23 07:36 Pulse 68 07/07/23 08:00 Resp 19 07/07/23 07:36 BP 145/77 07/07/23 08:00 Pulse Ox 99 07/07/23 08:00 FiO2 Intake & Output 07/06/23 07/07/23 07/07/23 18:59 06:59 18:59 Intake Total 240 240 Balance 240 240 Weight 63.5 kg Intake: Oral 240 240 Other: # Voids 3 2 - Exam GENERAL DESCRIPTION: An elderly male up in the chair in no distress RESPIRATORY SYSTEM: Unlabored breathing , decreased breath sounds at bases HEART: S1 S2 regular rate and rhythm , ABDOMEN: Soft , no tenderness EXTREMITIES: Right ankle posterior heel wound with no slough tissue no redness, left forearm graft site with a dry scab - Labs CBC & Chem 7: 07/07/23 04:20 07/05/23 06:08 Labs: Abnormal Lab Results - Last 24 Hours (Table) 07/07/23 Range/Units 04:20 RBC 2.74 L (4.40-5.60) X 10*6/uL Hgb 9.2 L (13.0-17.0) g/dL Hct 29.0 L (39.6-50.0) % MCV 105.8 H (80.0-97.0) FL MCH 33.6 H (27.0-32.0) pg MCHC 31.7 L (32.0-37.0) g/dL RDW 15.4 H (11.5-14.5) % Plt Count 88 L (140-440) X 10*3/uL MPV 14.0 H (9.5-12.2) FL Assessment and Plan (1) MRSA bacteremia Current Visit: Yes Status: Acute Code(s): R78.81 - BACTEREMIA; B95.62 - METHICILLIN RESIS STAPH INFCT CAUSING DISEASES CLASSD [facility] SNOMED Code(s): 27972030645069577 Plan: 1patient with MRSA bacteremia high clinical suspicion is related to his right heel infected ulcer and concern for possible osteomyelitis, however the wound scan was negative patient also have a thrombosed right arm AV graft which could be the source of this bacteremia patient chest x-ray was not suggestive of pneumonia bone scan was negative for any osteomyelitis, WBC scan has been ordered this morning we will wait for the results 2-blood cultures has been repeated and so far negative patient is cleared to go for permacatheter placement and as he has cleared his bacteremia 3--patient to continue vancomycin pharmacy to dose target trough of 15, and monitor clinical course closely Dictation was produced using I[employer] dictation software. please excuse any grammatical, word or spelling errors. Time with Patient: Less than 30
[2023-07-07 12:05] LABS: BUN/Creat Ratio 10.54 Ratio (12.00-20.00); Blood Urea Nitrogen 50.6 mg/dL (9.0-27.0); Calcium 7.7 mg/dL (8.7-10.3); Carbon Dioxide 23.4 mmol/L (21.6-31.8); Chloride 99 mmol/L (96-109); Glucose 102 mg/dL (70-110); Potassium 5.3 mmol/L (3.5-5.5); Sodium 138 mmol/L (135-145)
--- NOTE | 2023-07-07 12:33 | P.PN ---
Subjective Progress Note Date: 07/07/23 Principal diagnosis: Malfunctioning left fistula Patient is seen and examined today as a follow-up. He is scheduled to get hemodialysis today. He has been having some oozing from the right groin temp cath. Preliminary repeat blood culture with no growth after 72 hours. Infec tious disease cleared patient to have tunneled cath placed. Patient is without any acute changes through the night. Objective - Vital Signs Vital signs: Vital Signs Temp 97.5 F L 07/07/23 07:36 Pulse 68 07/07/23 08:00 Resp 19 07/07/23 07:36 BP 145/77 07/07/23 08:00 Pulse Ox 99 07/07/23 08:00 FiO2 Intake & Output 07/06/23 07/07/23 07/07/23 18:59 06:59 18:59 Intake Total 240 240 Balance 240 240 Weight 63.5 kg Intake: Oral 240 240 Other: # Voids 3 2 - Exam General appearance: The patient is alert, oriented, appears in no acute distress. HET: Head is normocephalic and atraumatic. Pupils are equal and reactive. Neck: Supple. Heart: Regular. Lungs: Equal expansion, normal respiratory effort. Abdomen: Soft, nontender, nondistended. Extremities: Left upper extremity AV graft with non-palpable thrill and no audible bruit. Right groin with hemodialysis catheter in place with small amount of oozing. Neurological: No focal deficits. - Labs CBC & Chem 7: 07/07/23 04:20 07/07/23 04:20 Labs: Abnormal Lab Results - Last 24 Hours (Table) 07/06/23 Range/Units 05:54 RBC 2.92 L (4.30-5.90) m/uL Hgb 10.4 L (13.0-17.5) gm/dL Hct 32.8 L (39.0-53.0) % MCV 112.3 H (80.0-100.0) fL MCH 35.6 H (25.0-35.0) pg RDW 15.9 H (11.5-15.5) % Plt Count 66 L (150-450) k/uL Macrocytosis Marked A Assessment and Plan Assessment: 1. Thrombosed left fistula 2. End-stage renal disease on hemodialysis 3. Bacteremia, MRSA 4. Thrombocytopenia 5. Fluid overload 6. Anemia of chronic disease 7. Heart failure and aortic stenosis 8. Chronic right lower extremity wounds Plan: 1. Dialysis per nephrology 2. Temporary HD catheter placed right femoral vein 3. Repeat blood cultures after 72 hours with no growth. Infectious disease cleared patient for tunnel catheter 4. Will plan for tunneled catheter placement tomorrow 5. N.p.o. after midnight 6. Patient will follow-up with Dr. Lundberg and plan for outpatient fistula revision/explantation Thank you for this consultation, we will continue to follow. The impression and plan of care has been dictated as directed. Dr. Lundberg I performed a history and examination of this patient, discussed the same with the dictator. I agree with the dictator's note ,documented as a scribe. Any additional findings or plans will be noted.
--- NOTE | 2023-07-07 15:11 | P.PN ---
Subjective Progress Note Date: 07/07/23 (delayed charting seen at 1215) Patient is a 77-year-old male with end-stage renal disease on dialysis status post renal transplant, prior stroke, cardiomyopathy with ejection fraction of 25%, and severe aortic stenosis who presented to the hospital with shortness of breath. On arrival to the ER he was found to be febrile with a temperature of 101.3. Initial laboratory analysis was remarkable for hemoglobin 10.6, platelets 97, potassium 5.7, BUN 62, creatinine 5.30, troponin 0.104, and BNP of 119,000. Influenza A/B/RSV/COVID-19 testing was negative. Initial chest x-ray was consistent with fluid overload from congestive heart failure. Patient was admitted and nephrology was consulted for fluid optimization. He was seen by nephrology and underwent hemodialysis. Blood cultures came back positive with MRSA. Patient was noted to have right lower extremity wounds and podiatry was consulted. They recommended silver collagen every other day. Due to bacteremia infectious disease was consulted. They recommended a bone scan which came back negative for osteomyelitis with degenerative changes in the midfoot joints. Patient also underwent echocardiogram which demonstrated ejection fraction 20 to 25% with moderate to severe right ventricular dilatation and moderate to severe tricuspid regurgitation. Aortic valve was not well-visualized. Patient had a temporary hemodialysis catheter placed as his AV fistula had thrombosed. Tagged white blood cell scan was ordered to assess for possible abscess formation. Patient seen and examined at bedside. He is feeling well today. He is anxious to go home. He has no other complaints currently. Vital signs reviewed General: Nontoxic, no distress, appears at stated age Cardiovascular: S1S2 reg, no murmur Lungs:Decreased bs bilateral, no rhonchi, no rales, no accessory muscle use Abdominal: Soft, nontender to palpation, no guarding Ext: No gross muscle atrophy, no edema b/l lower extremities, no contractures HD cath right groin with clot noted under dressing, no active bleed noted. Neuro: CN II-XI grossly intact, no focal neuro deficits Psych: Alert, oriented, appropriate affect Assessment/Plan: MRSA bacteremia, source unknown End-stage renal disease on hemodialysis with malfunctioning AV fistula Acute exacerbation of systolic congestive heart failure with ejection fraction 20 to 25% -Nuclear medicine tagged white blood cell scan in process -Repeat blood cultures negative -Vancomycin with pharmacy dosing, monitor trough levels for signs of toxicity -Aspirin 81 mg daily, Lipitor 10 mg at night, Bumex 4 mg daily, Imdur 30 mg daily, metoprolol 25 mg daily -Patient has been requiring midodrine to help maintain blood pressure with hemodialysis -Case discussed with nephrology and plan will be to insert a permanent hemodialysis catheter, they have already spoken with ID who is cleared this. That would be able to be discharged after that from their standpoint. -Case discussed with infectious disease. Will await tagged white blood cell scan results and then determine length of vancomycin treatment -Vascular surgery note reviewed: Plan for hemodialysis catheter tomorrow with removal of temporary catheter. Outpatient follow-up with Dr. Lundberg for fistula revision/explantation Bleeding from temporary HD cath, resolved Anemia of chronic disease Thrombocytopenia -Suspect thrombocytopenia is due to infection -Follow CBC -No indication for transfusion Chronic right foot ulceration -Podiatry recommendations reviewed: Silver dressing every other day. Chronic debility -PT/OT recommendations Chronic conditions: Severe peripheral arterial disease Hypertension Dyslipidemia Imaging: None new Data Review: Labs reviewed from today include CBC and basic metabolic profile which are remarkable for hemoglobin 9.2, platelets 88, BUN 50, creatinine 4.8. DVT prophylaxis: SCDs Anticipated discharge date: Pending clinical course Anticipated discharge place: Pending clinical course This dictation was prepared using [employer] voice recognition software. Though every attempt is made to correct errors during dictation some may still exist. Objective - Vital Signs Vital signs: Vital Signs Temp 97.5 F L 07/07/23 07:36 Pulse 68 07/07/23 08:00 Resp 19 07/07/23 07:36 BP 145/77 07/07/23 08:00 Pulse Ox 99 07/07/23 08:00 FiO2 Intake & Output 07/06/23 07/07/23 07/07/23 18:59 06:59 18:59 Intake Total 240 240 Balance 240 240 Weight 63.5 kg Intake: Oral 240 240 Other: # Voids 3 2 # Bowel Movements 2 - Labs CBC & Chem 7: 07/07/23 04:20 07/07/23 04:20 Labs: Abnormal Lab Results - Last 24 Hours (Table) 07/07/23 07/07/23 Range/Units 04:20 04:20 RBC 2.74 L (4.40-5.60) X 10*6/uL Hgb 9.2 L (13.0-17.0) g/dL Hct 29.0 L (39.6-50.0) % MCV 105.8 H (80.0-97.0) FL MCH 33.6 H (27.0-32.0) pg MCHC 31.7 L (32.0-37.0) g/dL RDW 15.4 H (11.5-14.5) % Plt Count 88 L (140-440) X 10*3/uL MPV 14.0 H (9.5-12.2) FL Anion Gap 15.60 H (4.00-12.00) mmol/L BUN 50.6 H (9.0-27.0) mg/dL Creatinine 4.8 H (0.6-1.5) mg/dL Est GFR (CKD-EPI) 12 L (>=60) BUN/Creatinine Ratio 10.54 L (12.00-20.00) Ratio Calcium 7.7 L (8.7-10.3) mg/dL Microbiology - Last 24 Hours (Table) 07/02/23 05:05 Blood Culture - Final Blood
--- NOTE | 2023-07-07 16:06 | NM ---
EXAMINATION TYPE: NM WBC whole body DATE OF EXAM: 07/07/2023 COMPARISON: NONE CLINICAL INDICATION: Male, 77 years old with history of bacteremia, search for infection of focus; TECHNIQUE: Following administration of 14.5 mCi Tc99m Ceretec. Images obtained 3.5 hours post injec tion. FINDINGS: Normal physiological tracer activity is noted in the liver and spleen and in the bone marrow of the a xial and appendicular skeleton. No abnormal focus of tracer activity is identified. Injection site at the right forearm. IMPRESSION: No abnormal focus of radiotracer to identify any potential site of infection. Injection site at the r ight forearm.
[2023-07-07] MEDS ORDERED: VANCOMYCIN 1,250 MG in SODIUM CHLORIDE 0.9% 250 ML IVPB ONE (21:00)
[2023-07-07] MEDS: ATORVASTATIN 10 MG TAB PO SCH (21:14)
[2023-07-08] MEDS ORDERED: MIDAZOLAM 2 MG/2 ML VIAL IVP ONE (07:44)
[2023-07-08] MEDS ORDERED: fentaNYL (PF) 50 MCG/ML 2 ML AMP IVP ONE (07:44)
[2023-07-08] MEDS ORDERED: LIDOCAINE 1% INJ 10MG/ML (20 ML MDV) SQ ONE (07:52)
[2023-07-08] MEDS ORDERED: IV FLUID CONTINUATION 1,000 ML IV ONE (07:53)
[2023-07-08] MEDS ORDERED: HEPARIN SODIUM 1,000 UN/ML (10ML VL) IVP ONE (08:03)
--- NOTE | 2023-07-08 08:19 | P.OP ---
Date of Procedure: 07/08/23 Preoperative Diagnosis: ESRD Postoperative Diagnosis: same Procedure(s) Performed: Left tunneled hemodialysis catheter placement via left internal jugular vein under ultrasound and fluoroscopic guidance Conscious sedation x 20 minutes Anesthesia: MAC, local Surgeon: Tj Lundberg Estimated Blood Loss (ml): 5 Pathology: none sent Condition: stable Disposition: floor Indications for Procedure: 77 year old male with history of ESRD on HD via left upper extremity graft which has been bleeding and currently thrombosed presents to the bean sprout laborer for placement of tunneled HD catheter. Description of Procedure: Operative narrative: After written and informed consent was obtained and all risks, benefits and competitions were described the patient was brought to the [facility] and laid in a supine position. Ultrasound was used to assess the veins and the right IJ was non compressible and the patient stated he is having too much pain turning his neck to the left and therefore we will attempt the left. The area of the left neck was prepped and draped in the usual sterile fashion. Timeout was performed in normal fashion and antibiotics were administered prior to access. Utilizing ultrasound the left internal jugular vein was visualized and shown to be patent without any thrombus. Under ultrasound guidance the vein was then cannulated with dark nonpulsatile blood flow visualized. Guidewire was placed under direct visualization of fluoroscopy into the superior vena cava. Attention was then placed to the chest wall. A small incision was created on the lateral aspect of the chest wall as well as the access site at the neck. A 23 centimeter palindrome hemodialysis catheter was then tunneled from the chest wall to the neck. Serial dilation was then performed and breakaway sheath was placed into the internal jugular vein under direct visualization of fluoroscopy. The catheter was then placed within the break away sheath the sheath was removed. The ports were assessed for patency and amanuel and flushed easily and then were hep-locked. The catheter was then sutured in place, cleansed and dressings were placed. The patient tolerated procedure well.
--- NOTE | 2023-07-08 09:07 | XR ---
EXAMINATION TYPE: XR chest 1V portable DATE OF EXAM: 07/08/2023 Comparison: 06/30/2023 Clinical History: 77-year-old male line placement Findings: Left-sided double-lumen hemodialysis catheter tips in the right atrium. Heart mildly enlarged. Perihi lar and interstitial density. Hazy density at the right base. Left base underpenetrated and not well assessed. No appreciable pneumothorax. Impression: Ongoing mild pulmonary vascular congestion. This may be slightly improved in the interval. Suspect tr valente right effusion. Left base underpenetrated and not well assessed.
[2023-07-08 10:08] LABS: HCT 30.9 % (39.0-53.0); HGB 9.9 gm/dL (13.0-17.5); Hypochromasia Moderate; MCH 35.6 pg (25.0-35.0); MCV 111.3 fL (80.0-100.0); Macrocytosis Marked; Mean Platelet Volume 12.4; RBC 2.78 m/uL (4.30-5.90); RDW 15.7 % (11.5-15.5); WBC 5.6 k/uL (3.8-10.6)
[2023-07-08] MEDS ORDERED: DESMOPRESSIN ACETATE 4 MCG/ML VIAL (MDV) IV ONE (10:20)
[2023-07-08 10:26] LABS: Platelet Count 73 k/uL (150-450)
--- NOTE | 2023-07-08 10:42 | P.PN ---
Subjective Progress Note Date: 07/08/23 Principal diagnosis: Malfunctioning left fistula Patient is seen and examined as a follow-up. This morning he went for left IJ tunneled catheter placement. Following the procedure his right femoral temporary catheter was removed. Initially pressure was applied and there was g ood hemostasis however patient had moved and sat up for chest x-ray and started bleeding quite heavily from the right groin site according to cardiovascular nurse. Pressure was applied and then pressure dressing placed. At this time patient seen that bleeding was controlled. Yesterday platelets were 88,000 he has end-stage renal disease and history of anemia. Orders obtained for DDAVP, and platelets. Objective - Vital Signs Vital signs: Vital Signs Temp 97.4 F L 07/08/23 07:51 Pulse 58 L 07/08/23 07:51 Resp 16 07/08/23 08:30 BP 138/80 07/08/23 07:51 Pulse Ox 96 07/08/23 07:51 FiO2 Intake & Output 07/07/23 07/08/23 07/08/23 18:59 06:59 18:59 Intake Total 100 Balance 100 Weight 68.356 kg Intake: IV 100 Other: # Voids 1 # Bowel Movements 1 1 - Exam General appearance: The patient is alert, oriented, appears in no acute distress. HET: Head is normocephalic and atraumatic. Pupils are equal and reactive. Neck: Supple. Heart: Regular. Lungs: Equal expansion, normal respiratory effort. Abdomen: Soft, nontender, nondistended. Extremities: Left upper extremity AV graft with non-palpable thrill and no audible bruit. Right groin with pressure dressing in place and no further bleeding noted surrounding pressure dressing. Left IJ tunnel catheter in place Neurological: No focal deficits. - Labs CBC & Chem 7: 07/08/23 09:24 07/07/23 04:20 Labs: Abnormal Lab Results - Last 24 Hours (Table) 07/07/23 07/08/23 Range/Units 04:20 09:24 RBC 2.78 L (4.30-5.90) m/uL Hgb 9.9 L (13.0-17.5) gm/dL Hct 30.9 L (39.0-53.0) % MCV 111.3 H (80.0-100.0) fL MCH 35.6 H (25.0-35.0) pg RDW 15.7 H (11.5-15.5) % Macrocytosis Marked A Anion Gap 15.60 H (4.00-12.00) mmol/L BUN 50.6 H (9.0-27.0) mg/dL Creatinine 4.8 H (0.6-1.5) mg/dL Est GFR (CKD-EPI) 12 L (>=60) BUN/Creatinine Ratio 10.54 L (12.00-20.00) Ratio Calcium 7.7 L (8.7-10.3) mg/dL Microbiology - Last 24 Hours (Table) 07/02/23 05:05 Blood Culture - Final Blood Assessment and Plan Assessment: 1. End-stage renal disease requiring hemodialysis status post temporary right femoral catheter and left IJ tunneled catheter 2. Thrombosed left fistula 3. Number cytopenia with increased bleeding from right groin dialysis access 4. Bacteremia, MRSA 5. Thrombocytopenia 6. Fluid overload 7. Anemia of chronic disease 8. Heart failure and aortic stenosis 9. Chronic right lower extremity wounds Plan: 1. Temporary HD catheter removed, left IJ tunneled catheter placed 2. Hemodialysis per recommendations from nephrology 3. Keep pressure dressing in place to right groin keep flat for 1 hour 4. 1 unit of platelets ordered, DDAVP ordered 5. If bleeding stable patient may have renal diet 6. Patient will follow-up with Dr. Lundberg and plan for outpatient fistula revision/explantation Thank you for this consultation, we will continue to follow. The impression and plan of care has been dictated as directed. Dr. Lundberg I performed a history and examination of this patient, discussed the same with the dictator. I agree with the dictator's note ,documented as a scribe. Any additional findings or plans will be noted.
--- NOTE | 2023-07-08 11:01 | P.PN ---
Subjective Patient is seen in follow-up for end-stage renal disease. He is maintained on Friday schedule. Permacath placed this morning. Femoral catheter removed. Was having bleeding from femoral catheter site. Vital signs are stable. General: No acute distress. HEENT: Head exam is unremarkable. On nasal cannula. LUNGS: No audible rhonchi or wheezes. HEART: Rate and Rhythm are regular. ABDOMEN: Nontender. EXTREMITITES: No edema. Objective - Vital Signs Vital signs: Vital Signs Temp 97.4 F L 07/08/23 07:51 Pulse 58 L 07/08/23 07:51 Resp 16 07/08/23 08:30 BP 138/80 07/08/23 07:51 Pulse Ox 96 07/08/23 07:51 FiO2 Intake & Output 07/07/23 07/08/23 07/08/23 18:59 06:59 18:59 Intake Total 100 Balance 100 Weight 68.356 kg Intake: IV 100 Other: # Voids 1 # Bowel Movements 1 1 - Labs CBC & Chem 7: 07/08/23 09:24 07/07/23 04:20 Labs: Abnormal Lab Results - Last 24 Hours (Table) 07/07/23 07/08/23 Range/Units 04:20 09:24 RBC 2.78 L (4.30-5.90) m/uL Hgb 9.9 L (13.0-17.5) gm/dL Hct 30.9 L (39.0-53.0) % MCV 111.3 H (80.0-100.0) fL MCH 35.6 H (25.0-35.0) pg RDW 15.7 H (11.5-15.5) % Macrocytosis Marked A Anion Gap 15.60 H (4.00-12.00) mmol/L BUN 50.6 H (9.0-27.0) mg/dL Creatinine 4.8 H (0.6-1.5) mg/dL Est GFR (CKD-EPI) 12 L (>=60) BUN/Creatinine Ratio 10.54 L (12.00-20.00) Ratio Calcium 7.7 L (8.7-10.3) mg/dL Microbiology - Last 24 Hours (Table) 07/02/23 05:05 Blood Culture - Final Blood Assessment and Plan Plan: Assessment: 1. End-stage renal disease maintained on hemodialysis on Friday schedule. 2. Thrombosed AV fistula. Permacath placed this morning. Femoral catheter removed. 3. MRSA bacteremia on IV antibiotics. ID following. 4. Chronic kidney disease mineral bone disease maintained on PhosLo. 5. Anemia of chronic kidney disease. On Aranesp. Plan: Hemodialysis today. IV DDAVP x 1 dose today. Monitor vancomycin levels. Dose to be adjusted for renal function. Hold midodrine for systolic blood pressure greater than 110.
[2023-07-08] MEDS: oxyCODONE-APAP 5-325MG 1 EACH TAB PO PRN ×2 (11:21→21:46)
--- NOTE | 2023-07-08 12:06 | P.CONS ---
History of Present Illness - Reason for Consult Consult date: 07/08/23 wound care - History of Present Illness This 77-year-old patient being seen for nonhealing ulceration to the right medial ankle. The ulceration measures approximate 0.3 x 1.2 x 0.1 cm granulation noted within the wound bed with Slough and nonviable tissue present. The wound edges are attached to the wound base there is no tunneling or undermining noted. Patient has serous drainage to the site. Has been utilizing absorptive Silver. He follows with Dr. Crum. Review Of Systems: Constitutional: No fever, no chills, no night sweats. No weight change. No weakness, fatigue or lethargy. No daytime sleepiness. Integumentary:reports wounds, no lesions. No rash or pruritus. No unusual bruising. No change in hair or nails. Physical exam: General Appearance: Alert, cooperative, no distress, appears stated age. Skin: See HPI all other Skin color, texture, tugor normal, no rashes or lesions. Neurologic: Alert oriented x3 Assessment: 1. Nonhealing ulceration fat layer exposure rate ankle 2. Peripheral arterial disease Plan: 1. Continue with the absorptive Silver. Patient will continue to follow with Dr. Crum for discharge. Thank you for the consultation any questions to contact the wound care center DNP note has been reviewed and discussed with Dr. Chowdhury and the impression and plan of care has been directed as dictated. 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%, history of renal transplant and 2 in 1992 from a donor and in 1995 from a living donor, history of neck fracture, history of Covid 19 infection, severe aortic stenosis, anemia of chronic disease neuropathy, dialysis Friday History of Any Multi-Drug Resistant Organisms: MRSA Year Discovered:: 06/30/23 MDRO Source:: Blood Past Surgical History: Appendectomy Additional Past Surgical History / Comment(s): Kidney transplant in 07/28/1992 and 1995 and the patient has a fistula in the left upper extremity Past Anesthesia/Blood Transfusion Reactions: No Reported Reaction Past Psychological History: No Psychological Hx Reported Smoking Status: Former smoker Past Alcohol Use History: Rare Past Drug Use History: None Reported - Past Family History Mother Family Medical History: Cancer Additional Family Medical History / Comment(s): pancreatic cancer Father Family Medical History: CVA/TIA Additional Family Medical History / Comment(s): father of stroke Medications and Allergies Home Medications Medication Instructions Recorded Confirmed Type Atorvastatin [Lipitor] 10 mg PO HS 01/29/22 06/30/23 History Cholecalciferol [Vitamin D3 (25 50 mcg PO DAILY 01/29/22 06/30/23 History Mcg = 1000 Iu)] [place]-3/Dha/Epa/Fish Oil [Fish Oil 1 cap PO DAILY 01/29/22 06/30/23 History 1,000 mg Softgel] Isosorbide Mononitrate ER [Imdur] 30 mg PO DAILY 01/30/22 06/30/23 History Aspirin 81 mg PO DIRECTED 05/01/22 06/30/23 History rOPINIRole HCL [Requip] 2 mg PO BID 05/01/22 06/30/23 History Folic Acid/Vit B Complex and C 0.8 mg PO DAILY 06/03/22 06/30/23 History [Emy-Catalino Tablet] Metoprolol Succinate (ER) [Toprol 25 mg PO DAILY #30 tab 06/26/22 06/30/23 Rx XL] Bumetanide [BUMEX] 4 mg PO DAILY 08/16/22 06/30/23 History Calcium Acetate [PhosLo] 1,334 mg PO PC-TID 08/16/22 06/30/23 History PARoxetine [Paxil] 5 mg PO DAILY 02/12/23 06/30/23 History allopurinoL [Zyloprim] 100 mg PO DAILY 02/12/23 06/30/23 History oxyCODONE-APAP 5-325MG [Percocet 1 - 1.5 tab PO TID PRN 02/12/23 06/30/23 History 5-325 mg] Magnesium Oxide 483mg 483 mg PO DAILY 06/30/23 06/30/23 History Allergies Allergy/AdvReac Type Severity Reaction Status Date / Time enalaprilat [From Vasotec] Allergy Swelling Verified 06/30/23 17:26 lisinopril Allergy Swelling Verified 06/30/23 17:26 gabapentin AdvReac Hallucinati Verified 06/30/23 17:26 ons/Nightma res Physical Exam Vitals: Vital Signs Temp Pulse Resp BP Pulse Ox 07/08/23 11:00 97 151/77 07/08/23 08:30 16 07/08/23 07:51 97.4 F L 58 L 16 138/80 96 07/08/23 01:13 97.6 F 54 L 14 134/76 98 07/07/23 20:00 97.5 F L 56 L 15 130/64 98 07/07/23 17:07 54 L 07/07/23 14:48 97.3 F L 50 L 18 122/66 100 Intake and Output 07/07/23 07/08/23 07/08/23 22:59 06:59 14:59 Intake Total 100 Balance 100 Intake: IV 100 Other: # Voids 1 # Bowel Movements 1 1 Weight 68.356 kg Results CBC & Chem 7: 07/08/23 09:24 07/07/23 04:20 Labs: Abnormal Lab Results - Last 24 Hours (Table) 07/07/23 07/08/23 Range/Units 04:20 09:24 RBC 2.78 L (4.30-5.90) m/uL Hgb 9.9 L (13.0-17.5) gm/dL Hct 30.9 L (39.0-53.0) % MCV 111.3 H (80.0-100.0) fL MCH 35.6 H (25.0-35.0) pg RDW 15.7 H (11.5-15.5) % Macrocytosis Marked A Anion Gap 15.60 H (4.00-12.00) mmol/L BUN 50.6 H (9.0-27.0) mg/dL Creatinine 4.8 H (0.6-1.5) mg/dL Est GFR (CKD-EPI) 12 L (>=60) BUN/Creatinine Ratio 10.54 L (12.00-20.00) Ratio Calcium 7.7 L (8.7-10.3) mg/dL Microbiology - Last 24 Hours (Table) 07/02/23 05:05 Blood Culture - Final Blood Assessment and Plan (1) Non-pressure chronic ulcer of right ankle with fat layer exposed Current Visit: Yes Status: Acute Code(s): L97.312 - NON-PRS CHRONIC ULCER OF RIGHT ANKLE W FAT LAYER EXPOSED SNOMED Code(s): 03344738689013710 (2) Peripheral vascular disease, unspecified Current Visit: No Status: Acute Code(s): I73.9 - PERIPHERAL VASCULAR DISEASE, UNSPECIFIED SNOMED Code(s): 540065330
--- NOTE | 2023-07-08 12:47 | P.PN ---
Subjective Progress Note Date: 07/08/23 (delayed charting seen at 1045) Patient is a 77-year-old male with end-stage renal disease on dialysis status post renal transplant, prior stroke, cardiomyopathy with ejection fraction of 25%, and severe aortic stenosis who presented to the hospital with shortness of breath. On arrival to the ER he was found to be febrile with a temperature of 101.3. Initial laboratory analysis was remarkable for hemoglobin 10.6, platelets 97, potassium 5.7, BUN 62, creatinine 5.30, troponin 0.104, and BNP of 119,000. Influenza A/B/RSV/COVID-19 testing was negative. Initial chest x-ray was consistent with fluid overload from congestive heart failure. Patient was admitted and nephrology was consulted for fluid optimization. He was seen by nephrology and underwent hemodialysis. Blood cultures came back positive with MRSA. Patient was noted to have right lower extremity wounds and podiatry was consulted. They recommended silver collagen every other day. Due to bacteremia infectious disease was consulted. They recommended a bone scan which came back negative for osteomyelitis with degenerative changes in the midfoot joints. Patient also underwent echocardiogram which demonstrated ejection fraction 20 to 25% with moderate to severe right ventricular dilatation and moderate to severe tricuspid regurgitation. Aortic valve was not well-visualized. Patient had a temporary hemodialysis catheter placed as his AV fistula had thrombosed. Tagged white blood cell scan was ordered to assess for possible abscess formation, this came back negative. He had a tunneled HD cath placed on 07/08/23 Patient seen and examined at bedside. Per nursing he had significant bleeding from where they removed his temporary hemodialysis catheter requiring copious amounts of pressure. Patient is quite lethargic. He does wake up and answer questions appropriately. He denies any chest pain, change in his shortness of breath, lightheadedness, or dizziness. Vital signs reviewed General: Nontoxic, no distress, appears at stated age Cardiovascular: S1S2 reg, no murmur Lungs:Decreased bs bilateral, no rhonchi, no rales, no accessory muscle use Abdominal: Soft, nontender to palpation, no guarding Ext: No gross muscle atrophy, no edema b/l lower extremities, no contractures HD cath right groin with clot noted under dressing, no active bleed noted. Neuro: CN II-XI grossly intact, no focal neuro deficits Psych: Alert, oriented, appropriate affect Assessment/Plan: MRSA bacteremia, source unknown End-stage renal disease on hemodialysis with malfunctioning AV fistula Acute exacerbation of systolic congestive heart failure with ejection fraction 20 to 25% -Nuclear medicine tagged white blood cell scan negative -Repeat blood cultures negative -Vancomycin with pharmacy dosing, monitor trough levels for signs of toxicity -Aspirin 81 mg daily, Lipitor 10 mg at night, Bumex 4 mg daily, Imdur 30 mg daily, metoprolol 25 mg daily -Patient has been requiring midodrine to help maintain blood pressure with hemodialysis -Case discussed with nephrology HD today -Await further ID recs for duration of outpatient abx -Vascular surgery note reviewed: Outpatient follow-up with Dr. Lundberg for fistula revision/explantation Bleeding from prior temporary cath site - Discussed with Dr. Garcia and DDVAP ordered 20 mvg X 1 Anemia of chronic disease Thrombocytopenia -Suspect thrombocytopenia is due to infection -Follow CBC -No indication for transfusion Chronic right foot ulceration - Wound care consult- continue absorptive dressing, follow-up with wound care. Chronic debility -PT/OT recommendations Chronic conditions: Severe peripheral arterial disease Hypertension Dyslipidemia Imaging: None new Data Review: Labs reviewed from today include CBC which is remarkable for hemoglobin 9.9 and platelets of 73. DVT prophylaxis: SCDs Anticipated discharge date: in AM Anticipated discharge place: Home with home health This dictation was prepared using [employer] voice recognition software. Though every attempt is made to correct errors during dictation some may still exist. Objective - Vital Signs Vital signs: Vital Signs Temp 97.4 F L 07/08/23 07:51 Pulse 97 07/08/23 11:00 Resp 16 07/08/23 08:30 BP 151/77 07/08/23 11:00 Pulse Ox 96 07/08/23 07:51 FiO2 Intake & Output 07/07/23 07/08/23 07/08/23 18:59 06:59 18:59 Intake Total 100 Balance 100 Weight 68.356 kg Intake: IV 100 Other: # Voids 1 # Bowel Movements 1 1 - Labs CBC & Chem 7: 07/08/23 09:24 07/07/23 04:20 Labs: Abnormal Lab Results - Last 24 Hours (Table) 07/08/23 Range/Units 09:24 RBC 2.78 L (4.30-5.90) m/uL Hgb 9.9 L (13.0-17.5) gm/dL Hct 30.9 L (39.0-53.0) % MCV 111.3 H (80.0-100.0) fL MCH 35.6 H (25.0-35.0) pg RDW 15.7 H (11.5-15.5) % Plt Count 73 L (150-450) k/uL Macrocytosis Marked A Microbiology - Last 24 Hours (Table) 07/02/23 05:05 Blood Culture - Final Blood
[2023-07-08 14:05] VITALS: BMI 22.2
[2023-07-08] MEDS: FOLIC ACID-VIT B COMPLEX-VIT C 1 CAP PO SCH (14:54)
[2023-07-08] MEDS: CALCIUM ACETATE 667 MG TAB PO SCH ×3 (14:54→18:52)
[2023-07-08] MEDS: BUMETANIDE 1 MG TAB PO SCH (14:55)
[2023-07-08] MEDS: PARoxetine 10 MG TAB PO SCH (14:55)
[2023-07-08] MEDS: MIDODRINE 5 MG TAB PO SCH ×2 (14:56→17:49)
[2023-07-08] MEDS: allopurinoL 100 MG TAB PO SCH (14:57)
[2023-07-08] MEDS: CHOLECALCIFEROL 25 MCG (1000 IU) TABLET PO SCH (14:57)
[2023-07-08] MEDS: ISOSORBIDE MONONITRATE ER 30 MG TAB.ER.24H PO SCH (14:57)
[2023-07-08] MEDS: METOPROLOL SUCCINATE (ER) 25 MG TAB.ER.24H PO SCH (14:58)
[2023-07-08] MEDS: ACETAMINOPHEN TAB 325 MG TAB PO PRN (15:48)
[2023-07-08] MEDS: SODIUM CHLORIDE 0.9% 500 ML 500 ML IV SCH (21:44)
[2023-07-08] MEDS: ATORVASTATIN 10 MG TAB PO SCH (21:46)
--- NOTE | 2023-07-08 23:22 | P.PN ---
Subjective Progress Note Date: 07/08/23 Principal diagnosis: Reason for follow-up visit MRSA bacteremia Patient is a 77-year-old male with a past medical history significant for heart failure history of renal transplant end-stage renal disease currently on dialysis patient was brought into the hospital for evaluation of decreased activity and lethargy patient also have a ulceration on his right heel for the patient is getting treatment at [facility], the patient did have a right forearm graft for dialysis which seem to be thrombosed and did have evidence of MRSA bacteremia. Patient did got left chest permacatheter On today's evaluation that is 07/08/2023 patient continues to be afebrile, the patient is breathing comfortably on 2 L nasal cannula oxygen, the patient denies chest pain, the patient did have occasional cough but no sputum production patient denies having abdominal pain no nausea no vomiting and no diarrhea has been reported, No new symptoms Patient did have white count of 5.6 sed rate is 16 creatinine is 4.2 CRP 7.20 blood culture with MRSA repeat blood cultures so far negative, WBC scan was negative Objective - Vital Signs Vital signs: Vital Signs Temp 97.8 F 07/08/23 14:07 Pulse 97 07/08/23 11:00 Resp 20 07/08/23 14:07 BP 141/67 07/08/23 14:07 Pulse Ox 96 07/08/23 07:51 FiO2 Intake & Output 07/07/23 07/08/23 07/08/23 18:59 06:59 18:59 Intake Total 500 Output Total 2300 Balance -1800 Weight 68.356 kg 68.356 kg Intake: IV 100 Hemodialysis 400 Output: Hemodialysis 2300 Other: # Voids 1 # Bowel Movements 1 1 - Exam GENERAL DESCRIPTION: An elderly male up in the chair in no distress RESPIRATORY SYSTEM: Unlabored breathing , decreased breath sounds at bases HEART: S1 S2 regular rate and rhythm , ABDOMEN: Soft , no tenderness EXTREMITIES: Right ankle posterior heel wound with no slough tissue no redness, left forearm graft site with a dry scab - Labs CBC & Chem 7: 07/08/23 09:24 07/07/23 04:20 Labs: Abnormal Lab Results - Last 24 Hours (Table) 07/08/23 Range/Units 09:24 RBC 2.78 L (4.30-5.90) m/uL Hgb 9.9 L (13.0-17.5) gm/dL Hct 30.9 L (39.0-53.0) % MCV 111.3 H (80.0-100.0) fL MCH 35.6 H (25.0-35.0) pg RDW 15.7 H (11.5-15.5) % Plt Count 73 L (150-450) k/uL Macrocytosis Marked A Microbiology - Last 24 Hours (Table) 07/02/23 05:05 Blood Culture - Final Blood Assessment and Plan (1) MRSA bacteremia Current Visit: Yes Status: Acute Code(s): R78.81 - BACTEREMIA; B95.62 - ME THICILLIN RESIS STAPH INFCT [facility]ING [facility] SNOM[facility] Code(s): 21576680248718872 Plan: 1patient with MRSA bacteremia high clinical suspicion is related to his right heel infected ulcer and concern for possible osteomyelitis, however the wound scan was negative patient also have a thrombosed right arm AV graft which could be the source of this bacteremia patient chest x-ray was not suggestive of pneumonia bone scan was negative for any osteomyelitis, WBC scan has been ordered this morning we will wait for the results 2-blood cultures has been repeated and so far negative patient did got permacatheter placement on 07/07/2023 and the patient WBC scan came back negative 3--patient to continue vancomycin pharmacy to dose target trough of 15, prescription for outpatient vancomycin through the dialysis was provided to the briefcase sewer Dictation was produced using [employer] dictation software. please excuse any grammatical, word or spelling errors. Time with Patient: Less than 30
[2023-07-09] MEDS: MIDODRINE 5 MG TAB PO SCH ×2 (06:29→17:40)
[2023-07-09] MEDS: SODIUM CHLORIDE 0.9% 500 ML 500 ML IV SCH (06:29)
[2023-07-09] MEDS: allopurinoL 100 MG TAB PO SCH (09:46)
[2023-07-09] MEDS: CHOLECALCIFEROL 25 MCG (1000 IU) TABLET PO SCH (09:47)
[2023-07-09] MEDS: METOPROLOL SUCCINATE (ER) 25 MG TAB.ER.24H PO SCH (09:47)
[2023-07-09] MEDS: ISOSORBIDE MONONITRATE ER 30 MG TAB.ER.24H PO SCH (09:49)
[2023-07-09] MEDS: BUMETANIDE 1 MG TAB PO SCH (09:53)
[2023-07-09] MEDS: PARoxetine 10 MG TAB PO SCH (09:54)
[2023-07-09 10:02] LABS: Anisocytosis Slight; HGB 8.7 gm/dL (13.0-17.5); Hypochromasia Moderate; MCH 35.4 pg (25.0-35.0); MCHC 32.2 g/dL (31.0-37.0); MCV 110.2 fL (80.0-100.0); Macrocytosis Marked; Mean Platelet Volume 12.6; RBC 2.45 m/uL (4.30-5.90); RDW 16.2 % (11.5-15.5); WBC 5.6 k/uL (3.8-10.6)
[2023-07-09] MEDS: CALCIUM ACETATE 667 MG TAB PO SCH ×3 (10:02→17:42)
[2023-07-09] MEDS: FOLIC ACID-VIT B COMPLEX-VIT C 1 CAP PO SCH (10:03)
[2023-07-09] MEDS: oxyCODONE-APAP 5-325MG 1 EACH TAB PO PRN ×2 (10:14→17:42)
[2023-07-09 11:01] LABS: Platelet Count 78 k/uL (150-450)
--- NOTE | 2023-07-09 11:45 | P.PN ---
Subjective Patient is seen in follow-up for end-stage renal disease. He is maintained on Friday schedule. Permacath placed July 08, 2023. Femoral catheter removed. Feels weak. Vital signs are stable. General: No acute distress. HEENT: Head exam is unremarkable. On nasal cannula. LUNGS: No audible rhonchi or wheezes. HEART: Rate and Rhythm are regular. ABDOMEN: Nontender. EXTREMITITES: No edema. Objective - Vital Signs Vital signs: Vital Signs Temp 98.2 F 07/09/23 07:40 Pulse 75 07/09/23 07:40 Resp 16 07/09/23 07:40 BP 125/67 07/09/23 07:40 Pulse Ox 100 07/09/23 07:40 FiO2 Intake & Output 07/08/23 07/09/23 07/09/23 18:59 06:59 18:59 Intake Total 752 Output Total 2300 Balance -1548 Weight 68.356 kg 68.946 kg Intake: IV 100 Blood Product 252 Platelet Pheresis Pas 252 Psoralen Unit [id number] Hemodialysis 400 Output: Hemodialysis 2300 Other: # Voids 1 5 - Labs CBC & Chem 7: 07/09/23 06:06 07/07/23 04:20 Labs: Abnormal Lab Results - Last 24 Hours (Table) 07/08/23 07/08/23 07/08/23 Range/Units 09:24 12:46 12:46 RBC (4.30-5.90) m/uL Hgb (13.0-17.5) gm/dL Hct (39.0-53.0) % MCV (80.0-100.0) fL MCH (25.0-35.0) pg RDW (11.5-15.5) % Plt Count 73 L (150-450) k/uL Macrocytosis Vitamin B12 1002.0 H (200.0-944.0) pg/mL RBC Folate 933 H (280 - 791) ng/mL 07/09/23 Range/Units 06:06 RBC 2.45 L (4.30-5.90) m/uL Hgb 8.7 L (13.0-17.5) gm/dL Hct 27.0 L (39.0-53.0) % MCV 110.2 H (80.0-100.0) fL MCH 35.4 H (25.0-35.0) pg RDW 16.2 H (11.5-15.5) % Plt Count 78 L (150-450) k/uL Macrocytosis Marked A Vitamin B12 (200.0-944.0) pg/mL RBC Folate (280 - 791) ng/mL Microbiology - Last 24 Hours (Table) 07/07/23 12:22 Blood Culture - Preliminary Blood Assessment and Plan Plan: Assessment: 1. End-stage renal disease maintained on hemodialysis on Friday schedule. 2. Thrombosed AV fistula. Permacath placed July 08, 2023. Femoral catheter removed. 3. MRSA bacteremia on IV antibiotics. ID following. 4. Chronic kidney disease mineral bone disease maintained on PhosLo. 5. Anemia of chronic kidney disease. On Aranesp. Also received IV DDAVP this admission due to bleeding from the catheter site. Plan: Hemodialysis tomorrow. Monitor vancomycin levels. Dose to be adjusted for renal function. Hold midodrine for systolic blood pressure greater than 110.
--- NOTE | 2023-07-09 12:20 | P.PN ---
Subjective Progress Note Date: 07/09/23 Principal diagnosis: Reason for follow-up visit MRSA bacteremia Patient is a 77-year-old male with a past medical history significant for heart failure history of renal transplant end-stage renal disease currently on dialysis patient was brought into the hospital for evaluation of decreased activity and lethargy patient also have a ulceration on his right heel for the patient is getting treatment at [facility], the patient did have a right forearm graft for dialysis which seem to be thrombosed and did have evidence of MRSA bacteremia. Patient did got left chest permacatheter On today's evaluation that is 07/09/2023, the patient denies having any fever or any chills, the patient is currently on 2 L nasal cannula oxygen however has been complaining of shortness of breath and chest congestion patient denies having any chest pain occasional cough but no sputum production denies any nausea vomiting no abdominal pain no diarrhea. Patient white count of 5.6, vancomycin random is 26.8 blood culture repeat has been negative Objective - Vital Signs Vital signs: Vital Signs Temp 98.2 F 07/09/23 07:40 Pulse 75 07/09/23 07:40 Resp 16 07/09/23 07:40 BP 125/67 07/09/23 07:40 Pulse Ox 100 07/09/23 07:40 FiO2 Intake & Output 07/08/23 07/09/23 07/09/23 18:59 06:59 18:59 Intake Total 752 Output Total 2300 Balance -1548 Weight 68.356 kg 68.946 kg Intake: IV 100 Blood Product 252 Platelet Pheresis Pas 252 Psoralen Unit [id number] Hemodialysis 400 Output: Hemodialysis 2300 Other: # Voids 1 5 - Exam GENERAL DESCRIPTION: An elderly male up in the chair in no distress RESPIRATORY SYSTEM: Unlabored breathing , coarse breath sounds bilaterally HEART: S1 S2 regular rate and rhythm , ABDOMEN: Soft , no tenderness EXTREMITIES: Right ankle wound is currently dressed, left forearm graft site with a dry scab - Labs CBC & Chem 7: 07/09/23 06:06 07/07/23 04:20 Labs: Abnormal Lab Results - Last 24 Hours (Table) 07/08/23 07/08/23 07/09/23 Range/Units 12:46 12:46 06:06 RBC 2.45 L (4.30-5.90) m/uL Hgb 8.7 L (13.0-17.5) gm/dL Hct 27.0 L (39.0-53.0) % MCV 110.2 H (80.0-100.0) fL MCH 35.4 H (25.0-35.0) pg RDW 16.2 H (11.5-15.5) % Plt Count 78 L (150-450) k/uL Macrocytosis Marked A Vitamin B12 1002.0 H (200.0-944.0) pg/mL RBC Folate 933 H (280 - 791) ng/mL Microbiology - Last 24 Hours (Table) 07/07/23 12:22 Blood Culture - Preliminary Blood Assessment and Plan (1) MRSA bacteremia Current Visit: Yes Status: Acute Code(s): R78.81 - BACTEREMIA; B95.62 - METHICILLIN RESIS STAPH INFCT [facility] Code(s): 50148100891113355 Plan: 1patient with MRSA bacteremia high clinical suspicion is related to his right heel infected ulcer and concern for possible osteomyelitis, however the wound scan was negative patient also have a thrombosed right arm AV graft which could be the source of this bacteremia patient chest x-ray was not suggestive of pn [place] bone scan was negative for any osteomyelitis, WBC scan has been ordered this morning we will wait for the results 2-blood cultures has been repeated and so far negative patient did got permaca theter placement on 07/07/2023 and the patient WBC scan came back negative 3--patient will be continued with vancomycin pharmacy to dose which can be done through the dialysis recommending extending course because of concern for possible deep infection, discussed with the admitting physician Dictation was produced using [employer] dictation software. please excuse any grammatical, word or spelling errors. Time with Patient: Less than 30
--- NOTE | 2023-07-09 12:42 | P.PN ---
Subjective Progress Note Date: 07/09/23 Patient is a 77-year-old male with end-stage renal disease on dialysis status post renal transplant, prior stroke, cardiomyopathy with ejection fraction of 25%, and severe aortic stenosis who presented to the hospital with shortness of breath. On arrival to the ER he was found to be febrile with a temperature of 101.3. Initial laboratory analysis was remarkable for hemoglobin 10.6, platelets 97, potassium 5.7, BUN 62, creatinine 5.30, troponin 0.104, and BNP of 119,000. Influenza A/B/RSV/COVID-19 testing was negative. Initial chest x-ray was consistent with fluid overload from congestive heart failure. Patient was admitted and nephrology was consulted for fluid optimization. He was seen by nephrology and underwent hemodialysis. Blood cultures came back positive with MRSA. Patient was noted to have right lower extremity wounds and podiatry was consulted. They recommended silver collagen every other day. Due to bacteremia infectious disease was consulted. They recommended a bone scan which came back negative for osteomyelitis with degenerative changes in the midfoot joints. Patient also underwent echocardiogram which demonstrated ejection fraction 20 to 25% with moderate to severe right ventricular dilatation and moderate to severe tricuspid regurgitation. Aortic valve was not well-visualized. Patient had a temporary hemodialysis catheter placed as his AV fistula had thrombosed. Tagged white blood cell scan was ordered to assess for possible abscess formation, this came back negative. He had a tunneled HD cath placed on 07/08/23 Patient seen and examined at bedside. Patient seen and examined at bedside. He is feeling more short of breath today and slightly lightheaded. He denies any overt chest discomfort. He is feeling fairly weak. He would like to stay 1 more day in the hospital. Vital signs reviewed General: Nontoxic, no distress, appears at stated age Cardiovascular: S1S2 reg, no murmur Lungs:Decreased bs bilateral, no rhonchi, no rales, no accessory muscle use Abdominal: Soft, nontender to palpation, no guarding Ext: No gross muscle atrophy, no edema b/l lower extremities, no contractures HD cath right groin with clot noted under dressing, no active bleed noted. Neuro: CN II-XI grossly intact, no focal neuro deficits Psych: Alert, oriented, appropriate affect Assessment/Plan: MRSA bacteremia, source unknown End-stage renal disease on hemodialysis with malfunctioning AV fistula Acute exacerbation of systolic congestive heart failure with ejection fraction 20 to 25% -Infectious disease note reviewed and case discussed with Dr. Wiley: Will have 4 more weeks of IV vancomycin with dialysis on discharge. -Discussed with Dr. Garcia: Will plan on hemodialysis tomorrow and then discharge home. -Vascular surgery recs: Outpatient follow-up with Dr. Lundberg for fistula revision/explantation -Nuclear medicine tagged white blood cell scan negative, bone scan negative -Repeat blood cultures negative -Vancomycin with pharmacy dosing, monitor trough levels for signs of toxicity -Aspirin 81 mg daily, Lipitor 10 mg at night, Bumex 4 mg daily, Imdur 30 mg daily, metoprolol 25 mg daily -Patient has been requiring midodrine to help maintain blood pressure with hemodialysis Bleeding from prior temporary cath site, resolved Anemia of chronic disease, now symptomatic Thrombocytopenia -Suspect thrombocytopenia is due to infection -Patient now with symptomiatic anemia with increasing SOB, dizziness with walk ing, and increased fatigue. case discussed with Dr. Garcia and if HgB stable this evening optimal timing of transfusion would be with HD tomorrow. Repeat HgB at 1600. Chronic right foot ulceration - Wound care consult- continue absorptive dressing, follow-up with wound care. Chronic debility -PT/OT recommendations Chronic conditions: Severe peripheral arterial disease Hypertension Dyslipidemia Imaging: None new Labs: Labs reviewed from today reveal hemoglobin of 8.7 and platelets of 87. There is a drop of 1 g in the hemoglobin likely related to bleeding. DVT prophylaxis: SCDs Anticipated discharge date: in AM Anticipated discharge place: Home with home health This dictation was prepared using [employer] voice recognition software. Omid mccollum every attempt is made to correct errors during dictation some may still exist. Objective - Vital Signs Vital signs: Vital Signs Temp 98.2 F 07/09/23 07:40 Pulse 75 07/09/23 07:40 Resp 16 07/09/23 07:40 BP 125/67 07/09/23 07:40 Pulse Ox 100 07/09/23 07:40 FiO2 Intake & Output 07/08/23 07/09/23 07/09/23 18:59 06:59 18:59 Intake Total 752 Output Total 2300 Balance -1548 Weight 68.356 kg 68.946 kg Intake: IV 100 Blood Product 252 Platelet Pheresis Pas 252 Psoralen Unit [id number] Hemodialysis 400 Output: Hemodialysis 2300 Other: # Voids 1 5 - Labs CBC & Chem 7: 07/09/23 06:06 07/07/23 04:20 Labs: Abnormal Lab Results - Last 24 Hours (Table) 07/08/23 07/08/23 07/09/23 Range/Units 12:46 12:46 06:06 RBC 2.45 L (4.30-5.90) m/uL Hgb 8.7 L (13.0-17.5) gm/dL Hct 27.0 L (39.0-53.0) % MCV 110.2 H (80.0-100.0) fL MCH 35.4 H (25.0-35.0) pg RDW 16.2 H (11.5-15.5) % Plt Count 78 L (150-450) k/uL Macrocytosis Marked A Vitamin B12 1002.0 H (200.0-944.0) pg/mL RBC Folate 933 H (280 - 791) ng/mL Microbiology - Last 24 Hours (Table) 07/07/23 12:22 Blood Culture - Preliminary Blood
--- NOTE | 2023-07-09 15:03 | P.PN ---
Subjective Progress Note Date: 07/09/23 Principal diagnosis: Malfunctioning left fistula Patient seen and examined today as a follow-up. He was initially up getting showered and cleaned up. He had a left IJ tunnel catheter placed yesterday and his temporary right groin HD catheter was discontinued and he had bleeding following that. Bleeding has subsided with pressure dressing, DDAVP and he was given a unit of platelets. No further bleeding throughout the day yesterday and overnight. Patient had dialysis without any problems with the left IJ catheter. Objective - Vital Signs Vital signs: Vital Signs Temp 98.2 F 07/09/23 07:40 Pulse 75 07/09/23 07:40 Resp 16 07/09/23 07:40 BP 125/67 07/09/23 07:40 Pulse Ox 100 07/09/23 07:40 FiO2 Intake & Output 07/08/23 07/09/23 07/09/23 18:59 06:59 18:59 Intake Total 752 Output Total 2300 Balance -1548 Weight 68.356 kg 68.946 kg Intake: IV 100 Blood Product 252 Platelet Pheresis Pas 252 Psoralen Unit [id number] Hemodialysis 400 Output: Hemodialysis 2300 Other: # Voids 1 5 - Exam General appearance: The patient is alert, oriented, appears in no acute distress. HET: Head is normocephalic and atraumatic. Pupils are equal and reactive. Neck: Supple. Chest: Left IJ tunneled catheter in place with dressing clean dry and intact Heart: Regular. Lungs: Equal expansion, normal respiratory effort. Abdomen: Soft, nontender, nondistended. Extremities: Left upper extremity AV graft with non-palpable thrill and no audible bruit. Right groin with pressure dressing in place, small clot noted at access site without any active bleeding. Left tunneled IJ catheter in place. Neurological: No focal deficits. - Labs CBC & Chem 7: 07/09/23 06:06 07/07/23 04:20 Labs: Abnormal Lab Results - Last 24 Hours (Table) 07/08/23 07/08/23 Range/Units 09:24 12:46 RBC 2.78 L (4.30-5.90) m/uL Hgb 9.9 L (13.0-17.5) gm/dL Hct 30.9 L (39.0-53.0) % MCV 111.3 H (80.0-100.0) fL MCH 35.6 H (25.0-35.0) pg RDW 15.7 H (11.5-15.5) % Plt Count 73 L (150-450) k/uL Macrocytosis Marked A Vitamin B12 1002.0 H (200.0-944.0) pg/mL Microbiology - Last 24 Hours (Table) 07/07/23 12:22 Blood Culture - Preliminary Blood Assessment and Plan Assessment: 1. End-stage renal disease requiring hemodialysis status post temporary right femoral catheter and left IJ tunneled catheter 2. Thrombosed left fistula 3. Bacteremia, MRSA with negative repeat blood cultures 4. Thrombocytopenia 5. Fluid overload, resolved 6. Anemia of chronic disease 7. Heart failure and aortic stenosis 8. Chronic right lower extremity wounds Plan: 1. Temporary HD catheter removed, left IJ tunneled catheter placed 2. Hemodialysis per recommendations from nephrology 3. Activity as tolerated 4. Continue to monitor right groin site for bleeding 5. Patient will follow-up with Dr. Lundberg and plan for outpatient fistula revision/explantation Thank you for this consultation, patient is cleared for discharge from a vascular standpoint. The impression and plan of care has been dictated as directed. Dr. Lozada I performed a history and examination of this patient, discussed the same with the dictator. I agree with the dictator's note ,documented as a scribe. Any additional findings or plans will be noted.
[2023-07-09] MEDS: ACETAMINOPHEN TAB 325 MG TAB PO PRN (15:35)
[2023-07-09 16:36] LABS: Anisocytosis Slight; HCT 26.4 % (39.0-53.0); HGB 8.4 gm/dL (13.0-17.5); Hypochromasia Moderate; MCH 35.2 pg (25.0-35.0); MCHC 31.8 g/dL (31.0-37.0); MCV 110.9 fL (80.0-100.0); Macrocytosis Marked; Mean Platelet Volume 11.3; RBC 2.38 m/uL (4.30-5.90); RDW 16.2 % (11.5-15.5); WBC 4.6 k/uL (3.8-10.6)
[2023-07-09 17:05] LABS: Platelet Count 71 k/uL (150-450)
[2023-07-09] MEDS: ATORVASTATIN 10 MG TAB PO SCH (21:34)
[2023-07-10] MEDS: oxyCODONE-APAP 5-325MG 1 EACH TAB PO PRN ×2 (02:10→09:55)
[2023-07-10] MEDS: SODIUM CHLORIDE 0.9% 500 ML 500 ML IV SCH (05:48)
[2023-07-10 08:19] LABS: HCT 26.6 % (39.0-53.0); HGB 8.5 gm/dL (13.0-17.5); Hypochromasia Moderate; MCH 35.4 pg (25.0-35.0); MCHC 32.1 g/dL (31.0-37.0); MCV 110.3 fL (80.0-100.0); Macrocytosis Marked; Mean Platelet Volume 12.6; RBC 2.42 m/uL (4.30-5.90)
[2023-07-10] MEDS: allopurinoL 100 MG TAB PO SCH (08:19)
[2023-07-10] MEDS: CALCIUM ACETATE 667 MG TAB PO SCH ×2 (08:19→12:39)
[2023-07-10] MEDS: MIDODRINE 5 MG TAB PO SCH (08:20)
[2023-07-10] MEDS: PARoxetine 10 MG TAB PO SCH (08:20)
[2023-07-10] MEDS: ISOSORBIDE MONONITRATE ER 30 MG TAB.ER.24H PO SCH (08:20)
[2023-07-10] MEDS: BUMETANIDE 1 MG TAB PO SCH (08:20)
[2023-07-10] MEDS: FOLIC ACID-VIT B COMPLEX-VIT C 1 CAP PO SCH (08:20)
[2023-07-10] MEDS: CHOLECALCIFEROL 25 MCG (1000 IU) TABLET PO SCH (08:20)
[2023-07-10] MEDS: METOPROLOL SUCCINATE (ER) 25 MG TAB.ER.24H PO SCH (08:20)
[2023-07-10 08:22] LABS: Platelet Count 71 k/uL (150-450)
--- NOTE | 2023-07-10 12:29 | P.PN ---
Subjective Progress Note Date: 07/10/23 77-year-old male with end-stage renal disease on dialysis status post renal transplant, prior stroke, cardiomyopathy with ejection fraction of 25%, and severe aortic stenosis who presented to the hospital with shortness of breath. On arrival to the ER he was found to be febrile with a temperature of 101.3. Initial laboratory analysis was remarkable for hemoglobin 10.6, platelets 97, potassium 5.7, BUN 62, creatinine 5.30, troponin 0.104, and BNP of 119,000. Influenza A/B/RSV/COVID-19 testing was negative. Initial chest x-ray was consistent with fluid overload from congestive heart failure. Patient was admitted and nephrology was consulted for fluid optimization. He was seen by nephrology and underwent hemodialysis. Blood cultures came back positive with MRSA. Patient was noted to have right lower extremity wounds and podiatry was consulted. They recommended silver collagen every other day. Due to bacteremia infectious disease was consulted. They recommended a bone scan which came back negative for osteomyelitis with degenerative changes in the midfoot joints. Patient also underwent echocardiogram which demonstrated ejection fraction 20 to 25% with moderate to severe right ventricular dilatation and moderate to severe tricuspid regurgitation. Aortic valve was not well-visualized. Patient had a temporary hemodialysis catheter placed as his AV fistula had thrombosed. Tagged white blood cell scan was ordered to assess for possible abscess formation, this came back negative. He had a tunneled HD cath placed on 07/08/23. He did have a 1 point drop in Hg from 9.9 to 8.4 on 07/09. 07/10 Patient was seen and examined. He is currently undergoing HD. He reports feeling very unsteady on his feet. This was confirmed with the RN that he requires heavy assist. Plans for PT to re-evaluate the patient today. CBC Hg 8.5 Hct 26.6 MCV 110.3 Plt 71. Vital signs reviewed General: Nontoxic, no distress, appears at stated age Cardiovascular: S1S2 reg, no murmur Lungs:Decreased bs bilateral, no rhonchi, no rales, no accessory muscle use Ext: No gross muscle atrophy, no edema b/l lower extremities, no contractures HD cath left chest dressing bloody. Neuro: no focal neuro deficits Psych: Alert, oriented, appropriate affect Based on my assessment of this patient, this patient meets a moderate complexity level of care. Patient has a new diagnosis of acute renal failure requiring HD and MRSA bacteremia with uncertain prognosis. MRSA bacteremia, source unknown: 4 more weeks of IV vancomycin with dialysis on discharge. End-stage renal disease on hemodialysis with malfunctioning AV fistula: HD on Friday schedule. Outpatient follow-up with Dr. Lundberg for fistula revision/explantation Acute exacerbation of systolic congestive heart failure with ejection fraction 20 to 25%: Bumex 4 mg PO QD. Metoprolol 25 mg PO QD. Anemia of chronic disease, now symptomatic: Aranesp 40 mcg SQ Qweekly. Transfuse if Hg < 7. Thrombocytopenia: Suspect due to infection. Chronic right foot ulceration: Continue absorptive dressing. Wound care follow up. Chronic debility: PT/OT re-consulted. Patient appears debilitated. Complains of unsteadiness. Will need to re-assess if he is safe to go home. CODE STATUS: FULL CODE. DVT Prophylaxis: SCD GI Prophylaxis: Designated medical POA if patient is not able to make medical decisions for themselves: I have reviewed the following mergers and acquisitions consultant notes: ID, Nephrology, Vascular note. I have reviewed the results of the following tests: CBC. I have ordered the following tests: I have discussed the care of this patient with the following independent historian: Discussed with RN. I have independently interpreted the following test below: I have discussed the management of this patient with the following physician: Objective - Vital Signs Vital signs: Vital Signs Temp 97.6 F 07/10/23 08:00 Pulse 66 07/10/23 08:00 Resp 21 07/10/23 08:00 BP 128/72 07/10/23 08:00 Pulse Ox 100 07/10/23 08:00 FiO2 Intake & Output 07/09/23 07/10/23 07/10/23 18:59 06:59 18:59 Weight 70.5 kg Other: # Voids 1 - Labs CBC & Chem 7: 07/10/23 06:55 07/07/23 04:20 Labs: Abnormal Lab Results - Last 24 Hours (Table) 07/09/23 07/10/23 Range/Units 16:00 06:55 RBC 2.38 L 2.42 L (4.30-5.90) m/uL Hgb 8.4 L 8.5 L (13.0-17.5) gm/dL Hct 26.4 L 26.6 L (39.0-53.0) % MCV 110.9 H 110.3 H (80.0-100.0) fL MCH 35.2 H 35.4 H (25.0-35.0) pg RDW 16.2 H 16.0 H (11.5-15.5) % Plt Count 71 L 71 L (150-450) k/uL Macrocytosis Marked A Marked A Microbiology - Last 24 Hours (Table) 07/07/23 12:22 Blood Culture - Preliminary Blood
--- NOTE | 2023-07-10 12:47 | P.PN ---
Subjective Patient is seen in follow-up for end-stage renal disease. He is maintained on Friday schedule. Permacath placed July 08, 2023. Femoral catheter removed. Tolerating dialysis well. Hemodynamically stable. Vital signs are stable. General: No acute distress. HEENT: Head exam is unremarkable. On nasal cannula. LUNGS: No audible rhonchi or wheezes. HEART: Rate and Rhythm are regular. ABDOMEN: Nontender. EXTREMITITES: No edema. Objective - Vital Signs Vital signs: Vital Signs Temp 97.6 F 07/10/23 08:00 Pulse 66 07/10/23 08:00 Resp 21 07/10/23 08:00 BP 128/72 07/10/23 08:00 Pulse Ox 100 07/10/23 08:00 FiO2 Intake & Output 07/09/23 07/10/23 07/10/23 18:59 06:59 18:59 Weight 70.5 kg Other: # Voids 1 - Labs CBC & Chem 7: 07/10/23 06:55 07/07/23 04:20 Labs: Abnormal Lab Results - Last 24 Hours (Table) 07/09/23 07/10/23 Range/Units 16:00 06:55 RBC 2.38 L 2.42 L (4.30-5.90) m/uL Hgb 8.4 L 8.5 L (13.0-17.5) gm/dL Hct 26.4 L 26.6 L (39.0-53.0) % MCV 110.9 H 110.3 H (80.0-100.0) fL MCH 35.2 H 35.4 H (25.0-35.0) pg RDW 16.2 H 16.0 H (11.5-15.5) % Plt Count 71 L 71 L (150-450) k/uL Macrocytosis Marked A Marked A Microbiology - Last 24 Hours (Table) 07/07/23 12:22 Blood Culture - Preliminary Blood Assessment and Plan Plan: Assessment: 1. End-stage renal disease maintained on hemodialysis on Friday schedule. 2. Thrombosed AV fistula. Permacath placed July 08, 2023. Femoral catheter removed. 3. MRSA bacteremia on IV antibiotics. ID following. 4. Chronic kidney disease mineral bone disease maintained on PhosLo. 5. Anemia of chronic kidney disease. On Aranesp. Also received IV DDAVP this admission due to bleeding from the catheter site. Plan: Currently seen while undergoing hemodialysis. Next remain Friday. Monitor vancomycin levels. Dose to be adjusted for renal function. Hold midodrine for systolic blood pressure greater than 110. Check phosphorus level.
--- NOTE | 2023-07-10 14:15 | P.DS ---
Providers Date of admission: 06/30/23 18:32 Expected date of discharge: 07/10/23 Attending physician: Mk Jackson MD Consults: 06/30/23 18:29 Consult Physician Routine Consulting Provider: Gloria Rios Consult Reason/Comments: Dialysis patient, volume overload Do you want consulting provider notified?: Yes 07/01/23 01:16 Consult Physician Routine Consulting Provider: Rylan Crum Consult Reason/Comments: known to doc, foot ulcer Do you want consulting provider notified?: Yes, Notify in am 07/01/23 15:29 Consult Physician Routine Consulting Provider: Carlos Wiley Consult Reason/Comments: bacteremia Do you want consulting provider notified?: Yes 07/02/23 20:28 Consult Physician Routine Consulting Provider: Tj Lundberg Consult Reason/Comments: dialysis site bleeding Do you want consulting provider notified?: Already Contacted Primary care physician: [facility] Hospital Course: 77-year-old male with end-stage renal disease on dialysis status post renal transplant, prior stroke, cardiomyopathy with ejection fraction of 25%, and severe aortic stenosis who presented to the hospital with shortness of breath. On arrival to the ER he was found to be febrile with a temperature of 101.3. Initial laboratory analysis was remarkable for hemoglobin 10.6, platelets 97, potassium 5.7, BUN 62, creatinine 5.30, troponin 0.104, and BNP of 119,000. In fluenza A/B/RSV/COVID-19 testing was negative. Initial chest x-ray was consistent with fluid overload from congestive heart failure. Patient was admitted and nephrology was consulted for fluid optimization. He was seen by nephrology and underwent hemodialysis. Blood cultures came back positive with MRSA. Patient was noted to have right lower extremity wounds and podiatry was consulted. They recommended silver collagen every other day. Due to bacteremia infectious disease was consulted. They recommended a bone scan which came back negative for osteomyelitis with degenerative changes in the midfoot joints. Patient also underwent echocardiogram which demonstrated ejection fraction 20 to 25% with moderate to severe right ventricular dilatation and moderate to severe tricuspid regurgitation. Aortic valve was not well-visualized. Patient had a temporary hemodialysis catheter placed as his AV fistula had thrombosed. Tagged white blood cell scan was ordered to assess for possible abscess formation, this came back negative. He had a tunneled HD cath placed on 07/08/23. He did have a 1 point drop in Hg from 9.9 to 8.4 on 07/09. 07/10 Patient was seen and examined. He is currently undergoing HD. He reports feeling very unsteady on his feet. This was confirmed with the RN that he requires heavy assist. CBC Hg 8.5 Hct 26.6 MCV 110.3 Plt 71. Patient refusing PT and SNF and prefers to go home. Plans for discharge home today, continue Vancomycin with hemodialysis for 4 weeks. Follow up with Dr. Lundberg, Dr. Garcia, Dr. Wiley within 1 week of discharge. Follow up with PCP within 1-2 days of discharge. Follow up at [facility] for continued treatment of R foot ulcer. Vital signs reviewed General: Nontoxic, no distress, appears at stated age Cardiovascular: S1S2 reg, no murmur Lungs:Decreased bs bilateral, no rhonchi, no rales, no accessory muscle use Ext: No gross muscle atrophy, no edema b/l lower extremities, no contractures HD cath left chest dressing bloody. Neuro: no focal neuro deficits Psych: Alert, oriented, appropriate affect Discharge Diagnosis: MRSA bacteremia, source unknown: 4 more weeks of IV vancomycin with dialysis on discharge. End-stage renal disease on hemodialysis with malfunctioning AV fistula: HD on Friday schedule. Outpatient follow-up with Dr. Lundberg for fistula revision/explantation. Acute exacerbation of systolic congestive heart failure with ejection fraction 20 to 25%: Bumex 4 mg PO QD. Metoprolol 25 mg PO QD. Anemia of chronic disease: Aranesp 40 mcg SQ Qweekly. Transfuse if Hg < 7. Thrombocytopenia: Suspect due to infection. Chronic right foot ulceration: Continue absorptive dressing. Wound care follow up. This complex discharge took 35 minutes to complete. Patient Condition at Discharge: Stable Plan - Discharge Summary New Discharge Prescriptions: New Aspirin 81 mg PO DAILY PRN tab PRN Reason: SEE LABEL COMMENT Midodrine [ProAmatine] 5 mg PO AC-BID #60 tab Continue Atorvastatin [Lipitor] 10 mg PO HS Cholecalciferol [Vitamin D3 (25 Mcg = 1000 Iu)] 50 mcg PO DAILY Folic Acid/Vit B Complex and C [Emy-Catalino Tablet] 0.8 mg PO DAILY Bumetanide [BUMEX] 4 mg PO DAILY oxyCODONE-APAP 5-325MG [Percocet 5-325 mg] 1 - 1.5 tab PO TID PRN PRN Reason: Pain PARoxetine [Paxil] 5 mg PO DAILY Wilson-3/Dha/Epa/Fish Oil [Fish Oil 1,000 mg Softgel] 1 cap PO DAILY Isosorbide Mononitrate ER [Imdur] 30 mg PO DAILY rOPINIRole HCL [Requip] 2 mg PO BID Metoprolol Succinate (ER) [Toprol XL] 25 mg PO DAILY #30 tab Calcium Acetate [PhosLo] 1,334 mg PO PC-TID allopurinoL [Zyloprim] 100 mg PO DAILY Magnesium Oxide 483mg 483 mg PO DAILY Discontinued Aspirin 81 mg PO DIRECTED Discharge Medication List Atorvastatin [Lipitor] 10 mg PO HS 01/29/22 [History] Cholecalciferol [Vitamin D3 (25 Mcg = 1000 Iu)] 50 mcg PO DAILY 01/29/22 [History] Wilson-3/Dha/Epa/Fish Oil [Fish Oil 1,000 mg Softgel] 1 cap PO DAILY 01/29/22 [History] Isosorbide Mononitrate ER [Imdur] 30 mg PO DAILY 01/30/22 [History] rOPINIRole HCL [Requip] 2 mg PO BID 05/01/22 [History] Folic Acid/Vit B Complex and C [Eym-Catalino Tablet] 0.8 mg PO DAILY 06/03/22 [History] Metoprolol Succinate (ER) [Toprol XL] 25 mg PO DAILY #30 tab 06/26/22 [Rx] Bumetanide [BUMEX] 4 mg PO DAILY 08/16/22 [History] Calcium Acetate [PhosLo] 1,334 mg PO PC-TID 08/16/22 [History] PARoxetine [Paxil] 5 mg PO DAILY 02/12/23 [History] allopurinoL [Zyloprim] 100 mg PO DAILY 02/12/23 [History] oxyCODONE-APAP 5-325MG [Percocet 5-325 mg] 1 - 1.5 tab PO TID PRN 02/12/23 [History] Magnesium Oxide 483mg 483 mg PO DAILY 06/30/23 [History] Aspirin 81 mg PO DAILY PRN tab 07/10/23 [Rx] Midodrine [ProAmatine] 5 mg PO AC-BID #60 tab 07/10/23 [Rx] Follow up Appointment(s)/Referral(s): Fransisco Pereira MD [Primary Care Provider] - 1-2 days Tj Lundberg DO [STAFF PHYSICIAN] - 1 Week [facility], [NON-STAFF] - 1 Week ([facility] will call you to arrange a visit) [facility] [NON-STAFF] - 1 Week Raymundo Garcia DO [STAFF PHYSICIAN] - 1 Week Carlos Wiley MD [STAFF PHYSICIAN] - 1 Week Activity/Diet/Wound Care/Special Instructions: Diet: Renal Continue Vanocomycin with dialysis for 4 weeks. Follow up with Dr. Lundberg, Dr. Wiley, Dr. Garcia within 1 week. Follow up with PCP within 1-2 days of discharge. Discharge Disposition: HOME SELF-CARE
[2023-07-10 14:42] VITALS: BP 128/70; PULSE 70; RESP 19; TEMP 97.7
--- NOTE | 2023-07-10 15:52 | P.PN ---
Subjective Progress Note Date: 07/10/23 Principal diagnosis: Reason for follow-up visit MRSA bacteremia Patient is a 77-year-old male with a past medical history significant for heart failure history of renal transplant end-stage renal disease currently on dialysis patient was brought into the hospital for evaluation of decreased activity and lethargy patient also have a ulceration on his right heel for the patient is getting treatment at [facility], the patient did have a right forearm graft for dialysis which seem to be thrombosed and did have evidence of MRSA bacteremia. Patient did got left chest permacatheter On today's evaluation that is 07/10/2023, patient remains to be afebrile, the patient is breathing comfortably on 3 L nasal cannula oxygen, the patient denies any chest pain shortness of breath or worsening cough and no sputum production, no nausea vomiting no abdominal pain no diarrhea has been reported. Patient white count is 4.0 vancomycin level is 24.4 blood culture repeated 07/02/2023 as well as 07/07/2023 so far negative Objective - Vital Signs Vital signs: Vital Signs Temp 97.6 F 07/10/23 08:00 Pulse 66 07/10/23 08:00 Resp 21 07/10/23 08:00 BP 128/72 07/10/23 08:00 Pulse Ox 100 07/10/23 08:00 FiO2 Intake & Output 07/09/23 07/10/23 07/10/23 18:59 06:59 18:59 Weight 70.5 kg Other: # Voids 1 - Exam GENERAL DESCRIPTION: An elderly male up in the chair in no distress RESPIRATORY SYSTEM: Unlabored breathing , coarse breath sounds bilaterally HEART: S1 S2 regular rate and rhythm , ABDOMEN: Soft , no tenderness EXTREMITIES: Right ankle wound is currently dressed, left forearm graft site with a dry scab - Labs CBC & Chem 7: 07/10/23 06:55 07/07/23 04:20 Labs: Abnormal Lab Results - Last 24 Hours (Table) 07/09/23 07/10/23 Range/Units 16:00 06:55 RBC 2.38 L 2.42 L (4.30-5.90) m/uL Hgb 8.4 L 8.5 L (13.0-17.5) gm/dL Hct 26.4 L 26.6 L (39.0-53.0) % MCV 110.9 H 110.3 H (80.0-100.0) fL MCH 35.2 H 35.4 H (25.0-35.0) pg RDW 16.2 H 16.0 H (11.5-15.5) % Plt Count 71 L 71 L (150-450) k/uL Macrocytosis Marked A Marked A Microbiology - Last 24 Hours (Table) 07/07/23 12:22 Blood Culture - Preliminary Blood Assessment and Plan (1) MRSA bacteremia Current Visit: Yes Status: Acute Code(s): R78.81 - BACTEREMIA; B95.62 - METHICILLIN RESIS STAPH INFCT CAUSING DISEASES [facility] SNOM[facility] Code(s): 76836453638918295 Plan: 1patient with MRSA bacteremia high clinical suspicion is related to his right heel infected ulcer and concern for possible osteomyelitis, however the wound scan was negative patient also have a thrombosed right arm AV graft which could be the source of this bacteremia patient chest x-ray was not suggestive of pneumonia bone scan was negative for any osteomyelitis, WBC scan has been negative 2-blood cultures has been repeated and so far negative patient did got permacatheter placement on 07/07/2023 and the patient WBC scan came back negative 3--patient did have some clinical improvement and has cleared his bacteremia, patient will be continued with vancomycin pharmacy to dose through the dialysis x 4 weeks and a close outpatient follow-up will recommend blood cultures to be repeated after completion of his antibiotic therapy to make sure no evidence of any recurrence of bacteremia Dictation was produced using [employer] dictation software. please excuse any grammatical, word or spelling errors. Time with Patient: Less than 30
--- NOTE | 2023-07-10 16:02 | P.PN ---
Subjective Progress Note Date: 07/10/23 Principal diagnosis: Malfunctioning left fistula Patient was seen and examined as a follow-up this morning. He was getting hemodialysis. He is without any complaints. There is no bleeding from the right groin and no hematoma noted. Objective - Vital Signs Vital signs: Vital Signs Temp 97.7 F 07/10/23 14:00 Pulse 70 07/10/23 14:00 Resp 19 07/10/23 14:00 BP 128/70 07/10/23 14:00 Pulse Ox 100 07/10/23 14:00 FiO2 Intake & Output 07/09/23 07/10/23 07/10/23 18:59 06:59 18:59 Intake Total 400 Output Total 2400 Balance -2000 Weight 70.5 kg Intake: Hemodialysis 400 Output: Hemodialysis 2400 Other: # Voids 1 - Exam General appearance: The patient is alert, oriented, appears in no acute d istress. HET: Head is normocephalic and atraumatic. Neck: Supple. Chest: Left IJ tunneled catheter in place with dressing clean dry and intact Abdomen: Soft, nondistended. Extremities: Left upper extremity AV graft with non-palpable thrill and no audible bruit. Right groin access site without any bleeding, minimal bruising and no hematoma. Left tunneled IJ catheter in place. Neurological: No focal deficits. - Labs CBC & Chem 7: 07/10/23 06:55 07/07/23 04:20 Labs: Abnormal Lab Results - Last 24 Hours (Table) 07/09/23 07/10/23 Range/Units 16:00 06:55 RBC 2.38 L 2.42 L (4.30-5.90) m/uL Hgb 8.4 L 8.5 L (13.0-17.5) gm/dL Hct 26.4 L 26.6 L (39.0-53.0) % MCV 110.9 H 110.3 H (80.0-100.0) fL MCH 35.2 H 35.4 H (25.0-35.0) pg RDW 16.2 H 16.0 H (11.5-15.5) % Plt Count 71 L 71 L (150-450) k/uL Macrocytosis Marked A Marked A Microbiology - Last 24 Hours (Table) 07/07/23 12:22 Blood Culture - Preliminary Blood Assessment and Plan Assessment: 1. End-stage renal disease requiring hemodialysis status post temporary right femoral catheter and left IJ tunneled catheter 2. Thrombosed left fistula 3. Bacteremia, MRSA with negative repeat blood cultures 4. Thrombocytopenia 5. Fluid overload, resolved 6. Anemia of chronic disease 7. Heart failure and aortic stenosis 8. Chronic right lower extremity wounds Plan: 1. Temporary HD catheter removed, left IJ tunneled catheter placed 2. Hemodialysis per recommendations from nephrology 3. Activity as tolerated 4. Patient will follow-up with Dr. Lundberg and plan for outpatient fistula revision/explantation Thank you for this consultation, patient is cleared for discharge from a vascular standpoint. We will sign off at this time. The impression and plan of care has been dictated as directed. Dr. Price I performed a history and examination of this patient, discussed the same with the dictator. I agree with the dictator's note ,documented as a scribe. Any additional findings or plans will be noted.
--- NOTE | 2023-07-11 09:33 | CDI ---
Documentation Clarification Form Date: 07/11/2023 09:00:12 AM From: Meli Gongora Phone: [phone] Admit Date: 06/30/2023 06:32:00 PM Patient Name: John Benedict Visit Number: [id number] Discharge Date: 07/10/2023 05:18:00 PM ATTENTION: The Clinical Documentation Specialists (CDI) and [facility] Coding Staff appreciate your assistance in clarifying documentation. Please respond to the clarification below the line at the bottom and electronically sign. The CDI & [facility] Coding staff will review the response and follow-up if needed. Please note: Queries are made part of the Legal Health Record. If you have any questions, please contact the author of this message via ITS. Dr. Anette Larose Sepsis with MRSA Bacteremia present on admission is documented on the query 07/03/23 but is not noted in subsequent documentation. Clarification is requested. History/Risk Factors: Heart Failure, Dialysis, Renal Disease, CVA, renal transplant and 2, fistula in the left upper extremity, Right foot, there is stage I ulcer (per ED assessment). Clinical Indicators: 77-year-old man who reportedly is here for decreased activity/lethargy. WBC 8.5, HGB 10.6, HCT 33.2, K+ 5.7, PLT 97, BUN 62 CR 5.30 Troponin 1.104 Lactic acid: 1.9 06/30 VS: 123/63 80 18 101.3 98% 5/L NC 06/30 (19:00) 118/64 74 07/01 attending progress notes: Patient had 2 out of 2 blood cultures positive for Staph aureus. Patient does have a deep wound on his right foot. I suspect this is the source of his infection. 07/02 ID: patient with MRSA bacteremia high clinical suspicion is related to his right heel infected ulcer. Treatment: Vancomycin 1,250 MG IVPB 07/01-124 PTD Rocephin 2 GM IVPB Once 06/30 Please clarify what you are treating? [ ] Sepsis, with MRSA Bacteremia present on admission [ x] MRSA Bacteremia without Sepsis [ ] Other condition, please specify [ ] Unable to determine (Template Last Revised: August 2020) MTDD
== END 2023-07-10 17:18 | disposition home health service (06) | DRG 291 ==
LOC: EC 15:31 → 4SSUR 18:32
PROVIDERS: ADMIT Internal Medicine; ATTEND Internal Medicine
PROC: 5A1D70Z Performance of Urinary Filtration, Intermittent, Less than 6 Hours Per Day (ICD-10-PCS; 2023-07-01)
PROC: 06HY33Z Insertion of Infusion Device into Lower Vein, Percutaneous Approach (ICD-10-PCS; 2023-07-04)
PROC: 02H633Z Insertion of Infusion Device into Right Atrium, Percutaneous Approach (ICD-10-PCS; principal; 2023-07-08 07:30)
PROC: 06PY3YZ Removal of Other Device from Lower Vein, Percutaneous Approach (ICD-10-PCS; principal; 2023-07-08 07:30)
PROC: 0JH63XZ Insertion of Tunneled Vascular Access Device into Chest Subcutaneous Tissue and Fascia, Percutaneous Approach (ICD-10-PCS; principal; 2023-07-08 07:30)
DX: I13.2 Hypertensive heart and chronic kidney disease with heart failure and with stage 5 chronic kidney disease, or end stage renal disease (principal); I50.23 Acute on chronic systolic (congestive) heart failure; N18.6 End stage renal disease; T86.12 Kidney transplant failure; R78.81 Bacteremia; N17.9 Acute kidney failure, unspecified; J96.11 Chronic respiratory failure with hypoxia; L97.419 Non-pressure chronic ulcer of right heel and midfoot with unspecified severity; L97.312 Non-pressure chronic ulcer of right ankle with fat layer exposed; T82.868A Thrombosis due to vascular prosthetic devices, implants and grafts, initial encounter; T82.838A Hemorrhage due to vascular prosthetic devices, implants and grafts, initial encounter; D69.6 Thrombocytopenia, unspecified; D63.1 Anemia in chronic kidney disease; E83.9 Disorder of mineral metabolism, unspecified; I08.2 Rheumatic disorders of both aortic and tricuspid valves; I42.9 Cardiomyopathy, unspecified; L97.519 Non-pressure chronic ulcer of other part of right foot with unspecified severity; E11.22 Type 2 diabetes mellitus with diabetic chronic kidney disease; E11.51 Type 2 diabetes mellitus with diabetic peripheral angiopathy without gangrene; E11.621 Type 2 diabetes mellitus with foot ulcer; Z99.2 Dependence on renal dialysis; E11.40 Type 2 diabetes mellitus with diabetic neuropathy, unspecified; B95.62 Methicillin resistant Staphylococcus aureus infection as the cause of diseases classified elsewhere; E78.5 Hyperlipidemia, unspecified; E87.5 Hyperkalemia; R26.81 Unsteadiness on feet; Z53.20 Procedure and treatment not carried out because of patient's decision for unspecified reasons; Z79.82 Long term (current) use of aspirin; Z79.899 Other long term (current) drug therapy; Z86.16 Personal history of COVID-19; Z86.73 Personal history of transient ischemic attack (TIA), and cerebral infarction without residual deficits; Z87.891 Personal history of nicotine dependence; Z86.14 Personal history of Methicillin resistant Staphylococcus aureus infection; Z88.8 Allergy status to other drugs, medicaments and biological substances; Y83.2 Surgical operation with anastomosis, bypass or graft as the cause of abnormal reaction of the patient, or of later complication, without mention of misadventure at the time of the procedure; Y84.1 Kidney dialysis as the cause of abnormal reaction of the patient, or of later complication, without mention of misadventure at the time of the procedure; Y71.2 Prosthetic and other implants, materials and accessory cardiovascular devices associated with adverse incidents
CPT/HCPCS: 36415; 36558; 71045; 71046; 76937; 77001; 78306; 78315; 80048; 80053; 80202; 82140; 82607; 82747; 82803; 83605; 83735; 83880; 84484; 85025; 85027; 85610; 85652; 85730; 86140; 86850; 86900; 86901; 87040; 87077; 87186; 87636; 90935; 93005; 93306; 94760; 96365; 99211; 99285

== ENCOUNTER 2023-07-14 14:14 | Emergency (ER) | payer MEDICARE, OTHER ==
--- NOTE | 2023-07-14 14:27 | ED ---
Extremity Problem HPI - General Source: patient, family, RN notes reviewed Mode of arrival: wheelchair Limitations: no limitations - History of Present Illness MD Complaint: extremity swelling <Thea Fair - Last Filed: 07/14/23 14:26> <Geovany David - Last Filed: 07/14/23 17:24> - General Chief complaint: Extremity Problem,Nontraumatic Stated complaint: Swollen Thigh Time Seen by Provider: 07/14/23 14:20 - History of Present Illness Initial comments: This is a 77-year-old male who presents to the emergency department for right leg swelling. States that about a week ago he had a catheter removed from the right groin that was in place as a temporary hemodialysis catheter. He followed up with the [place] today and they noticed that his right leg was swollen. He was instructed to go to the emergency department to rule out a blood clot. (Thea Fair) Dictation was produced using [employer] dictation software. please excuse any grammatical, word or spelling errors. Chief Complaint: John is a 77-year-old male presents emergency department from [place] clinic for rule out DVT History of Present Illness: 77-year-old male presents to the emergency department with right thigh and right leg pain. He was seen at the [place] told to come to the ER for rule out DVT. Patient has no history of DVT. Complains of bilateral lower extremity pain. States that it feels worse at the right hip crease. He also has pain along his thigh and calf. Patient denies any chest pain or shortness of breath. Denies any fever, chills or night sweats. The ROS documented in this emergency department record has been reviewed and confirmed by me. Those systems with pertinent positive or negative responses have been documented in the HPI. All other systems are other negative and/or noncontributory. (Geovany David) - Related Data Home Medications Medication Instructions Recorded Confirmed Atorvastatin [Lipitor] 10 mg PO HS 01/29/22 06/30/23 Cholecalciferol [Vitamin D3 (25 50 mcg PO DAILY 01/29/22 06/30/23 Mcg = 1000 Iu)] [place]-3/Dha/Epa/Fish Oil [Fish Oil 1 cap PO DAILY 01/29/22 06/30/23 1,000 mg Softgel] Isosorbide Mononitrate ER [Imdur] 30 mg PO DAILY 01/30/22 06/30/23 rOPINIRole HCL [Requip] 2 mg PO BID 05/01/22 06/30/23 Folic Acid/Vit B Complex and C 0.8 mg PO DAILY 06/03/22 06/30/23 [Emy-Catalino Tablet] Bumetanide [BUMEX] 4 mg PO DAILY 08/16/22 06/30/23 Calcium Acetate [PhosLo] 1,334 mg PO PC-TID 08/16/22 06/30/23 PARoxetine [Paxil] 5 mg PO DAILY 02/12/23 06/30/23 allopurinoL [Zyloprim] 100 mg PO DAILY 02/12/23 06/30/23 oxyCODONE-APAP 5-325MG [Percocet 1 - 1.5 tab PO TID PRN 02/12/23 06/30/23 5-325 mg] Magnesium Oxide 483mg 483 mg PO DAILY 06/30/23 06/30/23 Previous Rx's Medication Instructions Recorded Metoprolol Succinate (ER) [Toprol 25 mg PO DAILY #30 tab 06/26/22 XL] Aspirin 81 mg PO DAILY PRN tab 07/10/23 Midodrine [ProAmatine] 5 mg PO AC-BID #60 tab 07/10/23 Allergies Allergy/AdvReac Type Severity Reaction Status Date / Time enalaprilat [From Vasotec] Allergy Swelling Verified 07/14/23 14:49 lisinopril Allergy Swelling Verified 07/14/23 14:49 gabapentin AdvReac Hallucinati Verified 07/14/23 14:49 ons/Nightma res Review of Systems ROS Other: All systems not noted in ROS Statement are negative. <Thea Fair - Last Filed: 07/14/23 14:26> ROS Other: All systems not noted in ROS Statement are negative. <Geovany David - Last Filed: 07/14/23 17:24> ROS Statement: Those systems with pertinent positive or pertinent negative responses have been documented in the HPI. 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%, history of renal transplant and 2 in 1992 from a donor and in 1995 from a living donor, history of neck fracture, history of Covid 19 infection, severe aortic stenosis, anemia of chronic disease neuropathy, dialysis Friday History of Any Multi-Drug Resistant Organisms: MRSA Date of last positivie culture/infection: 06/30/23 MDRO Source:: Blood Past Surgical History: Appendectomy Additional Past Surgical History / Comment(s): Kidney transplant in 07/28/1992 and 1995 and the patient has a fistula in the left upper extremity Past Anesthesia/Blood Transfusion Reactions: No Reported Reaction Past Psychological History: No Psychological Hx Reported Smoking Status: Former smoker Past Alcohol Use History: Rare Past Drug Use History: None Reported - Past Family History Mother Family Medical History: Cancer Additional Family Medical History / Comment(s): pancreatic cancer Father Family Medical History: CVA/TIA Additional Family Medical History / Comment(s): father of stroke <Thea Fair - Last Filed: 07/14/23 14:26> General Exam <Thea Fair - Last Filed: 07/14/23 14:26> <Geovany David - Last Filed: 07/14/23 17:24> - General Exam Comments Initial Comments: Visual Physical Exam Vital signs reviewed General: Well-appearing, nontoxic, no acute distress. Head: Normocephalic, atraumatic Eyes: PERRLA, EOMI ENT: Airway patent Chest: Nonlabored breathing Skin: No visual rash, normal skin tone Neuro: Alert and oriented 3 Musculoskeletal: No gross abnormalities (Thea Fair) PHYSICAL EXAM: General Impression: Alert and oriented x3, not in acute distress HEENT: Normocephalic atraumatic, extra-ocular movements intact, pupils equal and reactive to light bilaterally, mucous membranes moist. Cardiovascular: Heart regular rate and rhythm Chest: Able to complete full sentences, no retractions, no tachypnea Abdomen: abdomen soft, non-tender, non-distended, no organomegaly Musculoskeletal: Pulses present and equal in all extremities, no peripheral edema Motor: no focal deficits noted Neurological: CN II-XII grossly intact, no focal motor or sensory deficits noted Skin: Intact with no visualized rashes Psych: Normal affect and mood Right lower extremity: No appreciable swelling or pitting edema to the right thigh. Legs appear to be symmetrical. No induration along the right lower extremity (Geovany David) Course Vital Signs 07/14/23 14:47 Temperature 98.2 F Pulse Rate 55 L Respiratory 20 Rate Blood Pressure 124/59 O2 Sat by Pulse 97 Oximetry Medical Decision Making <Thea Fair - Last Filed: 07/14/23 14:26> <Geovany David - Last Filed: 07/14/23 17:24> - Medical Decision Making I performed the QuickNote portion of this chart. Signed Thea Fair PA-C. (Thea Fair) Was pt. sent in by a medical professional or institution ([facility], SPD TECH, urgent care, hospital, or [facility]...) When possible be specific @ -Patient sent in from [facility] Did you review nursing and triage notes (agree or disagree)? Why? @ -I reviewed and agree with nursing and triage notes Were old charts reviewed (outside hosp., previous admission, EMS record, old EKG, old radiological studies, urgent care reports/EKG's, [facility] records)? Report findings @ -No old charts were reviewed Differential Diagnosis (chest pain, altered mental status, abdominal pain women, abdominal pain men, vaginal bleeding, musculoskeletal, weakness, fever, dyspnea, syncope, headache, dizziness, GI bleed, back pain, seizure, CVA, palpatations, mental health)? @ -Not applicable EKG interpreted by me (3pts min.). @ -None done X-rays interpreted by me (1pt min.). @ -None done CT interpreted by me (1pt min.). @ -None done U/S interpreted by me (1pt. min.). @ -Ultrasound left lower extremity shows no DVT What testing was considered but not performed or refused? (CT, X-rays, U/S, labs)? Why? @ -None What meds were considered but not given or refused? Why? @ -None Did you discuss the management of the patient with other professionals (professionals i.e. [facility], [facility] TECH, lab, RT, psych nurse, social service manager, seamless hosiery knitter, teacher, landcare officer, immigration case manager)? Give summary @ -No Was smoking cessation discussed for >3mins.? @ -No Was critical care preformed (if so, how long)? @ -No Were there social determinants of health that impacted care today? How? (Homelessness, low income, unemployed, alcoholism, drug addiction, transportation, low edu. Level, literacy, decrease access to med. care, alf, rehab)? @ -No Was there de-escalation of care discussed even if they declined (Discuss DNR or withdrawal of care, Hospice)? DNR status @ -No What co-morbidities impacted this encounter? (DM, HTN, Smoking, COPD, CAD, Cancer, CVA, ARF, Chemo, Hep., AIDS, mental health diagnosis, sleep apnea, morbid obesity)? @ -None Was patient admitted / discharged? Hospital course, mention meds given and route, prescriptions, significant lab abnormalities, going to OR and other pertinent info. @ -77-year-old male sent in from [place] clinic for rule out DVT of the right lower extremity. Patient complaining of bilateral leg pain. Legs appear to be symmetrical. No appreciable swelling. Vital signs stable. Physical examination of the right thigh is unremarkable. Patient well-appearing at the bedside. Ultrasound of the l right lower extremity is unremarkable. Patient given IM analgesics and discharged told to follow back up with his primary care physician. Undiagnosed new problem with uncertain prognosis? @ -No Drug Therapy requiring intensive monitoring for toxicity (Heparin, Nitro, Insulin, Cardizem)? @ -No Were any procedures done? @ -No Diagnosis/symptom? Acute, or Chronic, or Acute on Chronic? Uncomplicated (without systemic symptoms) or Complicated (systemic symptoms)? @ -Right thigh pain Side effects of treatment? @ -No Exacerbation, Progression, or Severe Exacerbation? @ -No Poses a threat to life or bodily function? How? (Chest pain, [place], DC, pneumonia, PE, COPD, DKA, ARF, appy, cholecystitis, CVA, Diverticulitis, Homicidal, Suicidal, threat to staff... and all critical care pts) @ -No (Geovany David) Disposition <Thea Fair - Last Filed: 07/14/23 14:26> Is patient prescribed a controlled substance at d/c from ED?: No Time of Disposition: 17:24 <Geovany David - Last Filed: 07/14/23 17:24> Clinical Impression: Leg pain Disposition: HOME SELF-CARE Condition: Good Instructions (If sedation given, give patient instructions): Leg Pain (ED) Referrals: Fransisco Pereira MD [Primary Care Provider] - 1-2 days
[2023-07-14 15:08] VITALS: TEMP 98.2
--- NOTE | 2023-07-14 15:42 | US ---
EXAMINATION TYPE: US venous doppler duplex LE RT DATE OF EXAM: 07/14/2023 3:30 PM COMPARISON: NONE CLINICAL INDICATION: Male, 77 years old with history of Right leg swelling; Recent dialysis port plac ement. Right thigh swelling per patient. No redness. SIDE PERFORMED: Right TECHNIQUE: The lower extremity deep venous system is examined utilizing real time linear array sonog dulce with graded compression, doppler sonography and color-flow sonography. VESSELS IMAGED: Common Femoral Vein Deep Femoral Vein Greater Saphenous Vein * Femoral Vein Popliteal Vein Small Saphenous Vein * Proximal Calf Veins (* superficial vessels) Right Leg: Negative for DVT IMPRESSION: Grayscale, color doppler, spectral doppler imaging performed of the deep veins of the lo wer extremities. There is normal flow, compressibility, vascular waveforms.
[2023-07-14] MEDS ORDERED: MORPHINE SULFATE 4 MG/ML SYRINGE IM STA (17:21)
[2023-07-14 17:51] VITALS: BP 130/62; PULSE 62; RESP 18
== END 2023-07-14 17:42 | disposition home or self-care (01) ==
LOC: EC 14:14
DX: M79.604 Pain in right leg (principal); E11.22 Type 2 diabetes mellitus with diabetic chronic kidney disease; I50.9 Heart failure, unspecified; N18.6 End stage renal disease; Z87.891 Personal history of nicotine dependence; Z86.16 Personal history of COVID-19; Z88.8 Allergy status to other drugs, medicaments and biological substances; Z99.2 Dependence on renal dialysis
CPT/HCPCS: 93971; 99283; 96372; J2270

== ENCOUNTER 2023-09-29 10:11 | Day surgery (SDC) | payer MEDICARE, OTHER ==
[~2023-09-29 10:11] MED LIST: HYDROmorphone 0.5 MG/0.5 ML SYRINGE IVP PRN; LACTATED RINGERS 1,000 ML IV SCH; LIDOCAINE 1% (10MG/ML) FOR IV START INTRADERMA PRN; MIDAZOLAM 2 MG/2 ML VIAL IV PRN
[2023-09-29] MEDS: SODIUM CHLORIDE 0.9% 1,000 ML IV ONE (11:05)
[2023-09-29] MEDS: ONDANSETRON 4 MG/2 ML VIAL IVP ONE (11:17)
[2023-09-29] MEDS: IPRATROPIUM-ALBUTEROL 3 ML NEB ONE (11:17)
[2023-09-29] MEDS: DEXAMETHASONE SOD PHOSPHATE 4 MG/ML 1 ML VIAL IV ONE (11:17)
[2023-09-29 11:22] VITALS: TEMP 96.9
[2023-09-29] MEDS: MIDAZOLAM 2 MG/2 ML VIAL IVP ONE (11:48)
[2023-09-29] MEDS: ceFAZolin 1,000 MG in SODIUM CHLORIDE 0.9% 1,000 ML IRRIGATION ONE (12:12)
[2023-09-29] MEDS ORDERED: PROTAMINE SULFATE 10 MG/ML 5 ML VIAL ONE (12:12)
[2023-09-29] MEDS ORDERED: KETAMINE HCL IN 0.9 % NACL 50 MG/5 ML SYRINGE ONE (12:12)
[2023-09-29] MEDS ORDERED: PROPOFOL 10 MG/ML 20 ML VIAL IV ONE (12:12)
[2023-09-29] MEDS: HEPARIN SODIUM PORCINE IRRIGATION ONE (12:12)
[2023-09-29] MEDS ORDERED: HEPARIN SODIUM,PORCINE 5,000 UNIT/ML 1 ML VIAL ONE (12:12)
[2023-09-29] MEDS ORDERED: SODIUM CHLORIDE 0.9% (PF) 10 ML VIAL ONE (12:12)
[2023-09-29] MEDS ORDERED: DEXAMETHASONE SOD PHOSPHATE 4 MG/ML 1 ML VIAL ONE (12:12)
[2023-09-29] MEDS ORDERED: fentaNYL (PF) 50 MCG/ML 2 ML AMP ONE (12:12)
[2023-09-29] MEDS: SODIUM CHLORIDE 0.9% IRRIGATION ONE (12:12)
--- NOTE | 2023-09-29 12:12 | P.ANPRN ---
Procedure Note - Anesthesia - Nerve Block Performed Left Supraclavicular Single Time Out Performed: Yes Date of Procedure: 09/29/23 Procedure Start Time: 11:40 Procedure Stop Time: 11:45 Location of Patient: PreOp Indication: Acute Post-Operative Pain, Analgesia, Requested by Surgeon Sedation Type: Sedate with meaningful contact maintained Preparation: Sterile Prep Position: Sitting Catheter: None Needle Types: Pajunk Needle Gauge: 21 Ultrasound used to visualize needle placement: Yes Ultrasound used to observe medication spread: Yes Injectate: 0.5% Ropivacaine (see comment for volume) (Ropiv 20 ml + decadron 4mg) Blood Aspirated: No Pain Paresthesia on Injection Noted: No Resistance on Injection: Normal Image Stored and Saved: Yes Events: Uneventful and Well Tolerated
[2023-09-29] MEDS: LIDOCAINE 1% INJ 10MG/ML (20 ML MDV) SQ ONE (12:30)
[2023-09-29] MEDS: THROMBIN (BOVINE) 5,000 UNIT VIAL MISCELLANE ONE (13:35)
[2023-09-29] MEDS: GELATIN SPONGE,ABSORB (LARGE) 1 EACH SPONGE MISCELLANE ONE (13:35)
--- NOTE | 2023-09-29 16:03 | P.OP ---
Date of Procedure: 09/29/23 Preoperative Diagnosis: Thrombosed left upper extremity AVG Penetrating ulcer of left upper extremity AVG Postoperative Diagnosis: Same Procedure(s) Performed: Left upper extremity arteriovenous graft explantation Open thrombectomy of arteriovenous graft Revision, Interposition arteriovenous graft placement Anesthesia: MAC, regional Surgeon: Tj Lundberg Estimated Blood Loss (ml): 100 Pathology: none sent Condition: stable Disposition: PACU Indications for Procedure: 77-year-old gentleman with history of left upper extremity arteriovenous graft who ultimately had a perforated ulceration and bleeding which required repair and during achieving hemostasis the graft thrombosed. While he was in the hospital he had a tunneled hemodialysis catheter placed and he presented to the office for discussion of possible revision of his graft. He presents today for revision and explantation of his existing graft versus possible fistula creation. Operative Findings: Thrombosed graft with ulcerated skin. After thrombectomy good inflow and outflow was noted Description of Procedure: After written and informed consent was obtained for the patient and all risk, benefits and complications were described the patient was brought to the operative suite and laid in a supine position with his left arm outstretched on an armboard. The area of the left arm was prepped and draped in usual sterile fashion after appropriate anesthetic was performed per the anesthesiologist. A timeout was performed normal fashion antibiotics were administered prior to incision. Incision was then created over the existing graft from the axilla to the elbow with a 15 blade scalpel and dissection was carried down to the graft. The proximal and distal graft was dissected free in a circumferential manner and controlled with Vesseloops. The rest the graft was then dissected free from the subcutaneous tissue and skin in a circumferential manner. Once this was freed completely it was then cut at the proximal and distal ends and sent off for pathology. Utilizing a 4 Sohail balloon catheter thrombectomy was performed both in the proximal aspect for inflow as well as the distal aspect for the outflow with large amount of thrombus removed from both areas. There was good pulsatile bleeding noted from the inflow and good backbleeding noted from the outflow. Due to this a 4 to 7 mm [place] graft was then tunneled lateral to the incision and anastomosis was created both at the proximal and distal aspects after patient was heparinized. Anastomosis was created with 5-0 Prolene suture in a running fashion at both the proximal and distal aspects. Once completed control was released and the graft was de-aired prior to last sutures being placed. There was good pulsatile flow within the graft with good thrill noted in the axilla area. The area was copiously irrigated and hemostasis was achieved with Gelfoam and thrombin. Once hemostatic the skin that was necrotic and ulcerated was removed and the incision site was copiously irrigated with antibiotic solution and closed in a multilayer fashion. The skin was then cleansed and glue was placed for dressing. The patient tolerated the procedure well had a palpable pulse within the graft and was easily augmentable. Doppler signal was noted at the distal aspect with good bruit noted. Patient tolerated the procedure well and was sent to PACU for recovery.
[2023-09-29 16:34] VITALS: BP 143/72; PULSE 69; RESP 20
== END 2023-09-29 16:40 | disposition home or self-care (01) ==
LOC: OR 10:11
PROVIDERS: ATTEND Surgery
DX: I82.90 Acute embolism and thrombosis of unspecified vein (principal); I13.2 Hypertensive heart and chronic kidney disease with heart failure and with stage 5 chronic kidney disease, or end stage renal disease; N18.6 End stage renal disease; I50.9 Heart failure, unspecified; I25.10 Atherosclerotic heart disease of native coronary artery without angina pectoris; J90 Pleural effusion, not elsewhere classified; I73.9 Peripheral vascular disease, unspecified; H93.19 Tinnitus, unspecified ear; F10.90 Alcohol use, unspecified, uncomplicated; Z88.1 Allergy status to other antibiotic agents; Z88.6 Allergy status to analgesic agent; Z88.8 Allergy status to other drugs, medicaments and biological substances; Z79.82 Long term (current) use of aspirin; Z79.899 Other long term (current) drug therapy; Z87.891 Personal history of nicotine dependence; G47.33 Obstructive sleep apnea (adult) (pediatric); Z86.73 Personal history of transient ischemic attack (TIA), and cerebral infarction without residual deficits; Z90.49 Acquired absence of other specified parts of digestive tract; Z98.890 Other specified postprocedural states; Z79.01 Long term (current) use of anticoagulants
CPT/HCPCS: 64415; 84132; 36833; L8670; J2250; J2720; J1644; J1100; J0690 ×2; J2405; J2001; J3010; J2704

== ENCOUNTER 2024-03-18 10:55 | Inpatient (IN) | payer MEDICARE, OTHER ==
--- NOTE | 2024-03-18 12:26 | ED ---
Extremity Problem HPI - General Source: patient, EMS, RN notes reviewed Mode of arrival: EMS Limitations: physical limitation <Carmela Ashraf - Last Filed: 03/18/24 18:24> <Tj Mcgowan - Last Filed: 04/01/24 04:30> - General Chief complaint: Extremity Problem,Nontraumatic Stated complaint: R Leg Infection Time Seen by Provider: 03/18/24 12:23 - History of Present Illness Initial comments: 78-year-old male with history of CHF and renal failure on dialysis presenting to the ER with chief complaint of right leg pain x 3 days. He was in the middle of dialysis when he was sent to the ER for evaluation of right leg pain. He was seen by his PCP who told him he had cellulitis and placed him on an antibiotic. He is able to weight-bear. Denies blood thinners. Denies history of DVT. (Carmela Ashraf) - Related Data Home Medications Medication Instructions Recorded Confirmed Trevett-3/Dha/Epa/Fish Oil [Fish Oil 1 cap PO DAILY 01/29/22 03/19/24 1,000 mg Softgel] Isosorbide Mononitrate ER [Imdur] 30 mg PO DAILY 01/30/22 03/19/24 rOPINIRole HCL [Requip] 2 mg PO BID 05/01/22 03/19/24 Bumetanide [BUMEX] 4 mg PO DAILY 08/16/22 03/19/24 Calcium Acetate [PhosLo] 1,334 mg PO TID-W/MEALS 08/16/22 03/19/24 allopurinoL [Zyloprim] 100 mg PO DAILY 02/12/23 03/19/24 oxyCODONE-APAP 5-325MG [Percocet 1 - 1.5 tab PO TID PRN 02/12/23 03/19/24 5-325 mg] Midodrine [ProAmatine] 5 mg PO AC-BID PRN 09/25/23 03/19/24 Carboxymethylcellulose Sodium 1 drop BOTH EYES TID 03/19/24 03/19/24 [Refresh Tears] Cholecalciferol (Vitamin D3) 50 mcg PO DAILY 03/19/24 03/19/24 [Vitamin D3 (50 Mcg = 2000 Iu)] Lidocaine 5% Oint [Xylocaine 5% 1 applic TOPICAL DIRECTED PRN 03/19/24 03/19/24 Oint] PARoxetine [Paxil] 10 mg PO DAILY 03/19/24 03/19/24 Previous Rx's Medication Instructions Recorded Metoprolol Succinate (ER) [Toprol 25 mg PO DAILY #30 tab 06/26/22 XL] Aspirin 81 mg PO DAILY #60 tab 03/22/24 Atorvastatin [Lipitor] 80 mg PO HS #60 tab 03/22/24 Vancomycin See Rx Instructions .ROUTE 03/22/24 .COMPLEX 14 Days each Allergies Allergy/AdvReac Type Severity Reaction Status Date / Time losartan Allergy Intermediate Swelling Verified 03/19/24 09:25 Aminoglycosides Allergy Unknown Unknown Verified 03/19/24 09:25 REINIER Inhibitors Allergy Unknown Verified 03/19/24 09:25 enalapril Allergy Swelling Verified 03/19/24 09:25 enalaprilat [From Vasotec] Allergy Swelling Verified 03/19/24 09:25 ibuprofen Allergy Unknown Verified 03/19/24 09:25 lisinopril Allergy Swelling Verified 03/19/24 09:25 vancomycin Allergy Unknown Verified 03/19/24 09:25 vitamin A Allergy Unknown Verified 03/19/24 09:25 gabapentin AdvReac Hallucinati Verified 03/19/24 09:25 ons/Nightma res Review of Systems ROS Other: All systems not noted in ROS Statement are negative. <Carmela Ashraf - Last Filed: 03/18/24 18:24> ROS Other: All systems not noted in ROS Statement are negative. <Tj Mcgowan - Last Filed: 04/01/24 04:30> ROS Statement: Those systems with pertinent positive or pertinent negative responses have been documented in the HPI. 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%, history of renal transplant and 2 in 1992 from a donor and in 1995 from a living donor, history of neck fracture, history of Covid 19 infection, severe aortic stenosis, anemia of chronic disease neuropathy, dialysis Friday History of Any Multi-Drug Resistant Organisms: MRSA Date of last positivie culture/infection: 06/30/23 MDRO Source:: Blood Past Surgical History: Appendectomy Additional Past Surgical History / Comment(s): Kidney transplant in 07/28/1992 and 1995 and 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 Father Family Medical History: CVA/TIA Additional Family Medical History / Comment(s): of stroke. <AndriyCarmela - Last Filed: 03/18/24 18:24> General Exam Limitations: physical limitation General appearance: alert Head exam: Present: atraumatic, normocephalic, normal inspection Right Upper Leg exam: Present: normal inspection, full ROM. Absent: tenderness, swelling Knee exam: Present: normal inspection, full ROM. Absent: tenderness, swelling Lower Leg exam: Present: full ROM, tenderness, swelling (Mild edema right ankle). Absent: normal inspection (Diffuse deep erythema present on anterior lower leg with tenderness to palpation throughout. No calf tenderness or posterior skin changes) Foot/Toe exam: Present: normal inspection, full ROM. Absent: tenderness, s welling <AshrafCarmela - Last Filed: 03/18/24 18:24> Course Vital Signs 03/18/24 03/18/24 11:03 19:11 Temperature 97.9 F Pulse Rate 59 L 52 L Respiratory 18 16 Rate Blood Pressure 107/70 107/66 O2 Sat by Pulse 100 99 Oximetry Medical Decision Making - Lab Data Result diagrams: 03/18/24 12:44 03/18/24 12:44 - EKG Data -: EKG Interpreted by Me <Carmela Ashraf - Last Filed: 03/18/24 18:24> - Lab Data Result diagrams: 03/22/24 05:56 03/22/24 05:56 <Tj Mcgowan - Last Filed: 04/01/24 04:30> - Medical Decision Making Was pt. sent in by a medical professional or institution (, PA, TUTORING CLINICIAN, urgent care, hospital, or long-term...) When possible be specific @ -Sent by hemodialysis for right leg pain Did you speak to anyone other than the patient for history (EMS, parent, family, police, friend...)? What history was obtained from this source @ -No Did you review nursing and triage notes (agree or disagree)? Why? @ -I reviewed and agree with nursing and triage notes Were old charts reviewed (outside hosp., previous admission, EMS record, old EKG, old radiological studies, urgent care reports/EKG's, long-term records)? Report findings @ -Previous CT angio of leg revealed from 04-09-2023 Differential Diagnosis (chest pain, altered mental status, abdominal pain women, abdominal pain men, vaginal bleeding, weakness, fever, dyspnea, syncope, headache, dizziness, GI bleed, back pain, seizure, CVA, palpatations, mental health, musculoskeletal)? @ -Differential Musculoskeletal Muscular strain, contusion, ligament sprain, fracture, arthritis, septic arthritis, bursitis, cellulitis, muscle spasm, nerve compression, DVT, arterial occlusion, herpes zoster, electrolyte abnormality, tumor.... This is not meant to be in all inclusive list EKG interpreted by me (3pts min.). @ -As above X-rays interpreted by me (1pt min.). @ -None done CT interpreted by me (1pt min.). @ -CT revealed moderate atherosclerotic calcifications throughout, moderate focal stenosis right SFA mid thigh level, extensive calcifications throughout trifurcation vessels left leg, degree of calcification obscures vessel lumens, unable to adequately assess degree/narrowing, generalized anasarca U/S interpreted by me (1pt. min.). @ -Ultrasound right lower extremity reveals no evidence for DVT What testing was considered but not performed or refused? (CT, X-rays, U/S, labs)? Why? @ -None What meds were considered but not given or refused? Why? @ -None Did you discuss the management of the patient with other professionals (professionals i.e. , PA, TUTORING CLINICIAN, lab, RT, psych nurse, social work instructor, family member caretaker, teacher, personnel officer, case management manager)? Give summary @ -I spoke with [facility] physicians who accepts admission for right PAD with consult to nephrology and vascular services Was smoking cessation discussed for >3mins.? @ -No Was critical care preformed (if so, how long)? @ -No Were there social determinants of health that impacted care today? How? (Homelessness, low income, unemployed, alcoholism, drug addiction, transportation, low edu. Level, literacy, decrease access to med. care, long term, rehab)? @ -No Was there de-escalation of care discussed even if they declined (Discuss DNR or withdrawal of care, Hospice)? DNR status @ -No What co-morbidities impacted this encounter? (DM, HTN, Smoking, COPD, CAD, Cancer, CVA, ARF, Chemo, Hep., AIDS, mental health diagnosis, sleep apnea, morbid obesity)? @ -None Was patient admitted / discharged? Hospital course, mention meds given and route, prescriptions, significant lab abnormalities, going to OR and other pertinent info. @ -Admitted. This is an 78-year-old male with history of end-stage renal disease on hemodialysis presenting for right leg pain x 3 days. Denies injury or trauma. Denies blood thinners. Vitals are within acceptable limits. There is diffuse erythema and tenderness on anterior right lower leg, no sign of bacterial infection. DP pulses are weak but present on right side. Lab work remarkable for reduced kidney function, creatinine 3.20, BUN 33. Right lower extremity ultrasound negative for DVT. CT angio right leg revealed extensive calcifications throughout trifurcation vessels, appears worsened from previous CT angio 04-09-2023. I spoke with [facility] physicians who accepts admission for [facility] peripheral arterial disease with consult to nephrology and vascular services. Patient will need hemodialysis tomorrow as he received contrast today. Patient is agreeable to plan. Case was discussed with the ED attending Dr. Mcgowan. Undiagnosed new problem with uncertain prognosis? @ -No Drug Therapy requiring intensive monitoring for toxicity (Heparin, Nitro, Insulin, Cardizem)? @ -No Were any procedures done? @ -No Diagnosis/symptom? @ -Right peripheral artery disease Acute, or Chronic, or Acute on Chronic? @ -Acute Uncomplicated (without systemic symptoms) or Complicated (systemic symptoms)? @ -Uncomplicated Side effects of treatment? @ -No Exacerbation, Progression, or Severe Exacerbation? @ -No Poses a threat to life or bodily function? How? (Chest pain, USA, DC, pneumonia, PE, COPD, DKA, ARF, appy, cholecystitis, CVA, Diverticulitis, Homicidal, Suicidal, threat to staff... and all critical care pts) @ -Possibly (Carmela Ashraf) - Lab Data Lab Results 03/18/24 03/18/24 03/18/24 Range/Units 12:44 12:44 12:44 WBC 6.4 (3.8-10.6) k/uL RBC 3.00 L (4.30-5.90) m/uL Hgb 10.3 L (13.0-17.5) gm/dL Hct 32.6 L (39.0-53.0) % MCV 108.7 H (80.0-100.0) fL MCH 34.4 (25.0-35.0) pg MCHC 31.6 (31.0-37.0) g/dL RDW 16.4 H (11.5-15.5) % Plt Count 70 L (150-450) k/uL MPV 10.6 Neutrophils % 81 % Lymphocytes % 5 % Monocytes % 7 % Eosinophils % 3 % Basophils % 1 % Neutrophils # 5.2 (1.3-7.7) k/uL Lymphocytes # 0.3 L (1.0-4.8) k/uL Monocytes # 0.5 (0-1.0) k/uL Eosinophils # 0.2 (0-0.7) k/uL Basophils # 0.0 (0-0.2) k/uL Manual Slide Review Performed Hypochromasia Slight Anisocytosis Slight Macrocytosis Marked A PT 11.6 (10.0-12.5) sec INR 1.1 (<1.2) APTT 31.5 H (22.0-30.0) sec Sodium 137 (137-145) mmol/L Potassium 3.7 (3.5-5.1) mmol/L Chloride 94 L (98-107) mmol/L Carbon Dioxide 37 H (22-30) mmol/L Anion Gap 6 mmol/L BUN 33 H (9-20) mg/dL Creatinine 3.20 H (0.66-1.25) mg/dL Est GFR (CKD-EPI)AfAm 20 (>60 ml/min/1.73 sqM) Est GFR (CKD-EPI)NonAf 17 (>60 ml/min/1.73 sqM) Glucose 91 (74-99) mg/dL Plasma Lactic Acid Ryan (0.7-2.0) mmol/L Calcium 7.4 L (8.4-10.2) mg/dL Total Bilirubin 1.6 H (0.2-1.3) mg/dL AST 46 (17-59) U/L ALT 29 (4-49) U/L Alkaline Phosphatase 163 H (38-126) U/L Total Protein 6.5 (6.3-8.2) g/dL Albumin 3.3 L (3.5-5.0) g/dL TSH (0.465-4.680) mIU/L 03/18/24 03/18/24 Range/Units 12:44 12:44 WBC (3.8-10.6) k/uL RBC (4.30-5.90) m/uL Hgb (13.0-17.5) gm/dL Hct (39.0-53.0) % MCV (80.0-100.0) fL MCH (25.0-35.0) pg MCHC (31.0-37.0) g/dL RDW (11.5-15.5) % Plt Count (150-450) k/uL MPV Neutrophils % % Lymphocytes % % Monocytes % % Eosinophils % % Basophils % % Neutrophils # (1.3-7.7) k/uL Lymphocytes # (1.0-4.8) k/uL Monocytes # (0-1.0) k/uL Eosinophils # (0-0.7) k/uL Basophils # (0-0.2) k/uL Manual Slide Review Hypochromasia Anisocytosis Macrocytosis PT (10.0-12.5) sec INR (<1.2) APTT (22.0-30.0) sec Sodium (137-145) mmol/L Potassium (3.5-5.1) mmol/L Chloride (98-107) mmol/L Carbon Dioxide (22-30) mmol/L Anion Gap mmol/L BUN (9-20) mg/dL Creatinine (0.66-1.25) mg/dL Est GFR (CKD-EPI)AfAm (>60 ml/min/1.73 sqM) Est GFR (CKD-EPI)NonAf (>60 ml/min/1.73 sqM) Glucose (74-99) mg/dL Plasma Lactic Acid Ryan 1.4 (0.7-2.0) mmol/L Calcium (8.4-10.2) mg/dL Total Bilirubin (0.2-1.3) mg/dL AST (17-59) U/L ALT (4-49) U/L Alkaline Phosphatase (38-126) U/L Total Protein (6.3-8.2) g/dL Albumin (3.5-5.0) g/dL TSH 0.852 (0.465-4.680) mIU/L - EKG Data EKG Comments: EKG reveals normal sinus rhythm with widened QRS complexes. Ventricular rate 64 bpm, MT interval not calculated, QRS duration 131, QT/QTc 465/475 (Carmela Ashraf) Disposition Time of Disposition: 18:24 <Carmela Ashraf - Last Filed: 03/18/24 18:24> <Tj Mcgowan - Last Filed: 04/01/24 04:30> Clinical Impression: Peripheral arterial disease Disposition: ADMITTED IP TO THIS HOSP Condition: Stable
[2024-03-18 12:57] LABS: Anisocytosis Slight; Basophils % (A) 1 %; Eosinophils # (A) 0.2 k/uL (0-0.7); Eosinophils % (A) 3 %; HCT 32.6 % (39.0-53.0); HGB 10.3 gm/dL (13.0-17.5); Hypochromasia Slight; Lymphocytes # (A) 0.3 k/uL (1.0-4.8); Lymphocytes % (A) 5 %; MCH 34.4 pg (25.0-35.0); MCHC 31.6 g/dL (31.0-37.0); MCV 108.7 fL (80.0-100.0); Macrocytosis Marked; Mean Platelet Volume 10.6; Monocytes # (A) 0.5 k/uL (0-1.0); Monocytes % (A) 7 %; Neutrophils # (A) 5.2 k/uL (1.3-7.7); Neutrophils % (A) 81 %; RDW 16.4 % (11.5-15.5); WBC 6.4 k/uL (3.8-10.6)
[2024-03-18 13:07] LABS: ALT 29 U/L (4-49); African American GFR (CKD) 20 (>60 ml/min/1.73 sqM); Albumin 3.3 g/dL (3.5-5.0); Anion Gap 6 mmol/L; Blood Urea Nitrogen 33 mg/dL (9-20); Calcium 7.4 mg/dL (8.4-10.2); Carbon Dioxide 37 mmol/L (22-30); Chloride 94 mmol/L (98-107); Glucose 91 mg/dL (74-99); Non-African American GFR(CKD) 17 (>60 ml/min/1.73 sqM); Sodium 137 mmol/L (137-145); Total Bilirubin 1.6 mg/dL (0.2-1.3); Total Protein 6.5 g/dL (6.3-8.2)
[2024-03-18 13:15] LABS: AST 46 U/L (17-59); Alkaline Phosphatase 163 U/L (38-126); Potassium 3.7 mmol/L (3.5-5.1)
[2024-03-18 13:16] LABS: INR 1.1 (<1.2); Partial Thromboplastin Time 31.5 sec (22.0-30.0); Prothrombin Time 11.6 sec (10.0-12.5)
[2024-03-18 13:27] LABS: Platelet Count 70 k/uL (150-450)
--- NOTE | 2024-03-18 14:00 | US ---
EXAMINATION TYPE: US venous doppler duplex LE RT DATE OF EXAM: 03/18/2024 12:28 PM COMPARISON: 07/14/2023 CLINICAL INDICATION: Male, 78 years old with history of pain; Right lower leg redness. Heparin shot w ith dialysis. TECHNIQUE: The lower extremity deep venous system is examined utilizing real time linear array sonog dulce with graded compression, color doppler sonography, and spectral doppler. SIDE PERFORMED: Right FINDINGS: VESSELS IMAGED: Common Femoral Vein Deep Femoral Vein Greater Saphenous Vein * Femoral Vein Popliteal Vein Small Saphenous Vein * Proximal Calf Veins (* superficial vessels) Right Leg: Appears negative for DVT at time of scan Grayscale, color doppler, spectral doppler imaging performed of the deep veins of the lower extremiti es. IMPRESSION: No evidence for DVT within the right lower extremity imaged from the groin to the upper calf. [facility], , 03/18/2024 1:58 PM
[2024-03-18] MEDS ORDERED: RX INFO: IV CONTRAST WAS GIVEN 1 EACH MISC MISCELLANE PRN (14:06)
--- NOTE | 2024-03-18 17:30 | CT ---
EXAMINATION TYPE: CT angio lower extremity RT DATE OF EXAM: 03/18/2024 COMPARISON: 06/03/2022 abdomen pelvis HISTORY: 78-year-old male right lower leg pain. Redness to rt lower leg. Patient receiving dialysis t omorrow. TECHNIQUE: Contiguous axial scanning of the lower abdomen and pelvis with right lower extremity runof f performed with IV Contrast, patient injected with 80ml mL of Isovue 370. Coronal/sagittal reconstru ctions performed. 3-D reconstructions generated on a dedicated workstation. CT DLP: 853.2 mGycm Automated exposure control for dose reduction was used. FINDINGS: Moderate atherosclerotic calcifications are present throughout. Changes within focal moderate to severe stenosis proximal left internal iliac artery. The right [employer] and PFA are patent. Moderate focal stenosis right SFA at the mid thigh level, axial image 187. Additional scattered [id number] atherosclerotic calcifications throughout the lower extremity. Calcifications resulting in generalized moderate stenoses of the trifurcation vessels. The lumen is p oorly visualized due to the degree of calcification there does appear to be some blood flow via the Focal erosion along the lateral margin of the patella. There is generalized anasarca change. Left lower quadrant kidney. The appearance of focal severe spin al canal stenosis at the L4-L5 level due to diffuse disc bulge. Correlate with symptoms. IMPRESSION: 1. MODERATE ATHEROSCLEROTIC CALCIFICATIONS THROUGHOUT. MODERATE FOCAL STENOSIS RIGHT SFA AT THE MID T HIGH LEVEL. 2. HOWEVER, THERE ARE MORE EXTENSIVE CALCIFICATIONS THROUGHOUT THE TRIFURCATION VESSELS OF THE LEG. T HE DEGREE OF CALCIFICATION OBSCURES THE VESSEL LUMENS AND WE ARE UNABLE TO ADEQUATELY ASSESS EITHER T HE DEGREE OF NARROWING OR PATENCY. CONVENTIONAL ARTERIOGRAM MAY BE NEEDED IF CONCERN FOR ARTERIAL INS UFFICIENCY. 3. GENERALIZED ANASARCA CHANGES THROUGHOUT. 4. Focal erosion lateral margin of the patella may be due to old trauma or gout. Clinically correlate . 5. Possible severe focal spinal canal stenosis at L4-L5 incidentally noted. [facility], , 03/18/2024 5:27 PM
[2024-03-18] MEDS ORDERED: NALOXONE 0.4 MG/ML 1 ML VIAL IV PRN (18:18)
[2024-03-18] MEDS ORDERED: VANCOMYCIN IV PER PHARMACY 1 EACH MISC MISCELLANE PRN (21:10)
[2024-03-18] MEDS: oxyCODONE-APAP 10-325MG 1 EACH TAB PO ONE (21:31)
--- NOTE | 2024-03-18 21:34 | P.HPIM ---
History of Present Illness H&P Date: 03/18/24 Patient is a 78-year-old male with a history of systolic CHF (EF 15% on echo 06/2023. Managed by Dr. Farah), hyperlipidemia, ESRD (status post kidney transplant x 2) on HD, MRSA infection (bactaremia), and severe aortic stenosis came in for right leg pain. Patient reported it began on Thursday 03/15 at his right lower leg area proximal to the ankle and was sore. His right lower leg then began to swell and become erythematous with tenderness throughout the day. He reported that it also started to spread upward towards his shins. On Friday during dialysis session, patient was advised by the herbarium worker to seek care. Yesterday on 03/17 patient saw his PCP and right leg was placed in a medicated wrap. No improvement of symptoms led him to seek care at the emergency room. He denies fever, nausea and vomiting, sweats, dizziness, chest pain, claudications, shortness of breath, abdominal pain, recent travel, or sick contacts. Pain of the RLE is 10/10 at maximal intensity and at time of interview was rated at a 6/10. At the emergency room, Doppler ultrasound of right lower leg resulted negative for DVT. CT angio of the right lower extremity shows modified focal stenosis of right SFA and extends throughout the leg. EKG shows ventricular rhythm with a rate of 64 wide QRS QTc 475 MS. WBC 6.4, hemoglobin 10.3, platelets 70, sodium 137, potassium 137, chloride 94, BUN 33, creatinine 3.2, lactic acid 1.4, calcium 7.4, total bilirubin 1.6, alk phos 163, albumin 3.3, AST 46, ALT 29. On admission, patient was afebrile at 97.9 Fahrenheit pulse rate 59 respiratory rate 18 blood pressure 107/70 O2 saturation 100% at 2 L nasal cannula. ED documentation reviewed. Review of systems: Pertinent positives and negatives as discussed in HPI, a complete review of systems was performed and all other systems are negative. Family history: Pancreatic cancer on father side. Mother unknown significant medical history Social history: Tobacco: Former smoker Alcohol: Occasional alcohol intake Recreational drugs: Denies illicit drug use Travel: No recent travel Occupation: Retired Physical examination: Vital signs reviewed General: non toxic, no distress, appears at stated age, normal weight Derm: no unusual rashes/lesions, warm, wound at right lateral knee bandaged dry and clean, RLE erythema and induration with warmth and tenderness extending to proximal ankle Head: atraumatic, normocephalic, symmetric Eyes: EOMI, no lid lag, anicteric sclera, pupils equal round reactive to light ENT: Nose and ears atraumatic Neck: No cervical lymphadenopathy, trachea midline, supple Mouth: no lip lesion, mucus membranes moist Cardiovascular: S1S2 reg, Grade 4 holosystolic murmur best heard at apex Lungs: CTA bilateral, no rhonchi, no rales, no accessory muscle use Abdominal: soft, nontender to palpation, no guarding Ext: muscle strength 5 out of 5 in all 4 extremities grossly, no gross muscle atrophy, no contractures, positive dorsalis pedis pulse bilateral, no edema, right lower leg warm to touch and tender on light palpation Neuro: CN II-XI grossly intact, no gross focal neuro deficits Psych: Alert, oriented, appropriate affect and mood Assessment/Plan: #. Cellulitis of the right lower extremity Patient has erythma and swelling of affected leg with tenderness -Vancomycin to dose per pharmacy -Wound care and infectious disease consult -Order blood cultures #. Peripheral artery disease of right lower extremity CT angio showed moderate focal stenosis of right superficial femoral artery that extends throughout leg -Aspirin 81 p.o. OD -Increase Lipitor 80 p.o. mg OD -Patient should f/u with Vascular surgery as outpatient #. ESRD on hemodialysis BUN 33 creatinine 3.2. Patient has scheduled dialysis. Contrast given for CT angio Continue midodrine -Resume PhosLo and D3 supplement -BMP, Mag, Phos at a.m. -Consult nephrology for resumption of HD #. Systolic CHF not in exacerbation Ejection fraction 15% on echo 06/2023 -Bumex 4mg PO OD #. Macrocytic anemia -Obtain B12 and Folate levels #. Thrombocytopenia due to dialysis Platelet count 71, at baseline -CBC at a.m. #. Hyperlipidemia #. 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%, history of renal transplant and 2 in 1992 from a donor and in 1995 from a living donor, history of neck fracture, history of Covid 19 infection, severe aortic stenosis, anemia of chronic disease neuropathy, dialysis Friday History of Any Multi-Drug Resistant Organisms: MRSA Date of last positivie culture/infection: 06/30/23 MDRO Source:: Blood Past Surgical History: Appendectomy Additional Past Surgical History / Comment(s): Kidney transplant in 07/28/1992 and 1995 and 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 Father Family Medical History: CVA/TIA Additional Family Medical History / Comment(s): of stroke. Medications and Allergies Home Medications Medication Instructions Recorded Confirmed Type Atorvastatin [Lipitor] 10 mg PO HS 01/29/22 09/29/23 History Cholecalciferol [Vitamin D3 (25 50 mcg PO DAILY 01/29/22 09/29/23 History Mcg = 1000 Iu)] [place]-3/Dha/Epa/Fish Oil [Fish Oil 1 cap PO DAILY 01/29/22 09/29/23 History 1,000 mg Softgel] Isosorbide Mononitrate ER [Imdur] 30 mg PO DAILY 01/30/22 09/29/23 History rOPINIRole HCL [Requip] 2 mg PO BID 05/01/22 09/29/23 History Folic Acid/Vit B Complex and C 0.8 mg PO TUTHSA 06/03/22 09/29/23 History [Emy-Catalino Tablet] Metoprolol Succinate (ER) [Toprol 25 mg PO DAILY #30 tab 06/26/22 09/29/23 Rx XL] Bumetanide [BUMEX] 4 mg PO DAILY 08/16/22 09/29/23 History Calcium Acetate [PhosLo] 1,334 mg PO PC-TID 08/16/22 09/29/23 History PARoxetine [Paxil] 5 mg PO QAM 02/12/23 09/29/23 History allopurinoL [Zyloprim] 100 mg PO DAILY 02/12/23 09/29/23 History oxyCODONE-APAP 5-325MG [Percocet 1 tab PO TID PRN 02/12/23 09/29/23 History 5-325 mg] Magnesium Oxide 483mg 483 mg PO DAILY 06/30/23 09/29/23 History Aspirin 81 mg PO DAILY 09/25/23 09/29/23 History Midodrine [ProAmatine] 5 mg PO AC-BID PRN 09/25/23 09/29/23 History Allergies Allergy/AdvReac Type Severity Reaction Status Date / Time losartan Allergy Intermediate Swelling Verified 03/18/24 11:14 Aminoglycosides Allergy Unknown Unknown Verified 03/18/24 11:14 enalapril Allergy Swelling Verified 03/18/24 11:14 enalaprilat [From Vasotec] Allergy Swelling Verified 09/29/23 10:37 ibuprofen Allergy Unknown Verified 03/18/24 11:14 lisinopril Allergy Swelling Verified 09/29/23 10:37 vitamin A Allergy Unknown Verified 03/18/24 11:15 gabapentin AdvReac Hallucinati Verified 09/29/23 10:37 ons/Nightma res Physical Exam Vitals: Vital Signs Temp Pulse Resp BP Pulse Ox 03/18/24 19:11 56 L 16 107/66 100 03/18/24 11:03 97.9 F 59 L 18 107/70 100 Intake and Output 03/18/24 03/18/24 03/18/24 06:59 14:59 22:59 Other: Weight 68.039 kg Results CBC & Chem 7: 03/18/24 12:44 03/18/24 12:44 Labs: Abnormal Lab Results - Last 24 Hours (Table) 03/18/24 03/18/24 03/18/24 Range/Units 12:44 12:44 12:44 RBC 3.00 L (4.30-5.90) m/uL Hgb 10.3 L (13.0-17.5) gm/dL Hct 32.6 L (39.0-53.0) % MCV 108.7 H (80.0-100.0) fL RDW 16.4 H (11.5-15.5) % Plt Count 70 L (150-450) k/uL Lymphocytes # 0.3 L (1.0-4.8) k/uL Macrocytosis Marked A APTT 31.5 H (22.0-30.0) sec Chloride 94 L (98-107) mmol/L Carbon Dioxide 37 H (22-30) mmol/L BUN 33 H (9-20) mg/dL Creatinine 3.20 H (0.66-1.25) mg/dL Calcium 7.4 L (8.4-10.2) mg/dL Total Bilirubin 1.6 H (0.2-1.3) mg/dL Alkaline Phosphatase 163 H (38-126) U/L Albumin 3.3 L (3.5-5.0) g/dL
[2024-03-18] MEDS: VANCOMYCIN 1,250 MG in SODIUM CHLORIDE 0.9% 250 ML IVPB ONE (22:08)
[2024-03-19] MEDS: BUMETANIDE 1 MG TAB PO SCH (00:05)
[2024-03-19] MEDS: ATORVASTATIN 40 MG TAB PO SCH (00:05)
[2024-03-19] MEDS: ASPIRIN 81 MG PO SCH (00:05)
[2024-03-19] MEDS: HEPARIN SODIUM,PORCINE 5,000 UNIT/ML 1 ML VIAL SQ SCH (00:05)
[2024-03-19] MEDS: CALCIUM ACETATE 667 MG TAB PO SCH (06:32)
[2024-03-19 06:45] LABS: Anisocytosis Slight; Basophils % (A) 1 %; Eosinophils # (A) 0.2 k/uL (0-0.7); Eosinophils % (A) 3 %; HCT 31.9 % (39.0-53.0); HGB 9.9 gm/dL (13.0-17.5); Hypochromasia Moderate; Lymphocytes # (A) 0.3 k/uL (1.0-4.8); Lymphocytes % (A) 5 %; MCH 34.1 pg (25.0-35.0); MCV 109.9 fL (80.0-100.0); Macrocytosis Marked; Mean Platelet Volume 12.5; Monocytes # (A) 0.6 k/uL (0-1.0); Monocytes % (A) 10 %; Neutrophils # (A) 4.6 k/uL (1.3-7.7); Neutrophils % (A) 78 %; RDW 16.4 % (11.5-15.5)
[2024-03-19 07:02] LABS: African American GFR (CKD) 13 (>60 ml/min/1.73 sqM); Anion Gap 7 mmol/L; Blood Urea Nitrogen 47 mg/dL (9-20); Carbon Dioxide 33 mmol/L (22-30); Chloride 96 mmol/L (98-107); Glucose 88 mg/dL (74-99); Magnesium 1.7 mg/dL (1.6-2.3); Non-African American GFR(CKD) 11 (>60 ml/min/1.73 sqM); Potassium 3.8 mmol/L (3.5-5.1); Sodium 136 mmol/L (137-145)
[2024-03-19 07:12] LABS: Platelet Count 71 k/uL (150-450)
[2024-03-19] MEDS: CHOLECALCIFEROL 25 MCG (1000 IU) TABLET PO SCH (08:07)
[2024-03-19] MEDS: ACETAMINOPHEN TAB 325 MG TAB PO PRN (08:08)
[2024-03-19] MEDS: allopurinoL 100 MG TAB PO SCH (10:20)
--- NOTE | 2024-03-19 10:21 | P.NPCON ---
History of Present Illness - Reason for Consult end stage renal disease - History of Present Illness Reason for consultation: End-stage renal disease History of present is: Patient is a 78-year-old male seen in renal consultation for end-stage renal disease. He is maintained on hemodialysis on Friday schedule. Patient states he developed redness in his right lower extremity Friday evening. He subsequently started having pain in the middle of the night on Friday. He did go to hemodialysis Friday. Patient was seen by his primary care physician Friday and states they wrapped his legs. Patient states he has been taking pain medication. However due to worsening of the redness and pain he came to the hospital. No fever. Hemodynamically stable. Denies chest pain or shortness of breath. Denies history of diabetes. Patient does have history of systolic CHF with ejection fraction of less than 20% as well as aortic stenosis. No vomiting or diarrhea. Vital signs are stable. General: No acute distress. HEENT: Head exam is unremarkable. LUNGS: No audible rhonchi or wheezes. HEART: Rate and Rhythm are regular. ABDOMEN: Nontender. EXTREMITITES: Right lower extremity erythema noted. Tender to touch. Chronic changes noted in the left lower extremity. 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%, history of renal transplant and 2 in 1992 from a donor and in 1995 from a living donor, history of neck fracture, history of Covid 19 infection, severe aortic stenosis, anemia of chronic disease neuropathy, dialysis Friday History of Any Multi-Drug Resistant Organisms: MRSA Date of last positivie culture/infection: 06/30/23 MDRO Source:: Blood Past Surgical History: Appendectomy Additional Past Surgical History / Comment(s): Kidney transplant in 07/28/1992 and 1995 and 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 Father Family Medical History: CVA/TIA Additional Family Medical History / Comment(s): of stroke. Medications and Allergies Home Medications Medication Instructions Recorded Confirmed Type Atorvastatin [Lipitor] 10 mg PO HS 01/29/22 03/19/24 History [place]-3/Dha/Epa/Fish Oil [Fish Oil 1 cap PO DAILY 01/29/22 03/19/24 History 1,000 mg Softgel] Isosorbide Mononitrate ER [Imdur] 30 mg PO DAILY 01/30/22 03/19/24 History rOPINIRole HCL [Requip] 2 mg PO BID 05/01/22 03/19/24 History Metoprolol Succinate (ER) [Toprol 25 mg PO DAILY #30 tab 06/26/22 03/19/24 Rx XL] Bumetanide [BUMEX] 4 mg PO DAILY 08/16/22 03/19/24 History Calcium Acetate [PhosLo] 1,334 mg PO TID-W/MEALS 08/16/22 03/19/24 History allopurinoL [Zyloprim] 100 mg PO DAILY 02/12/23 03/19/24 History oxyCODONE-APAP 5-325MG [Percocet 1 - 1.5 tab PO TID PRN 02/12/23 03/19/24 History 5-325 mg] Midodrine [ProAmatine] 5 mg PO AC-BID PRN 09/25/23 03/19/24 History Carboxymethylcellulose Sodium 1 drop BOTH EYES TID 03/19/24 03/19/24 History [Refresh Tears] Cephalexin [Keflex] 500 mg PO QID 03/19/24 03/19/24 History Cholecalciferol (Vitamin D3) 50 mcg PO DAILY 03/19/24 03/19/24 History [Vitamin D3 (50 Mcg = 2000 Iu)] Lidocaine 5% Oint [Xylocaine 5% 1 applic TOPICAL DIRECTED PRN 03/19/24 03/19/24 History Oint] PARoxetine [Paxil] 10 mg PO DAILY 03/19/24 03/19/24 History Allergies Allergy/AdvReac Type Severity Reaction Status Date / Time losartan Allergy Intermediate Swelling Verified 03/19/24 09:25 Aminoglycosides Allergy Unknown Unknown Verified 03/19/24 09:25 REINIER Inhibitors Allergy Unknown Verified 03/19/24 09:25 enalapril Allergy Swelling Verified 03/19/24 09:25 enalaprilat [From Vasotec] Allergy Swelling Verified 03/19/24 09:25 ibuprofen Allergy Unknown Verified 03/19/24 09:25 lisinopril Allergy Swelling Verified 03/19/24 09:25 vancomycin Allergy Unknown Verified 03/19/24 09:25 vitamin A Allergy Unknown Verified 03/19/24 09:25 gabapentin AdvReac Hallucinati Verified 03/19/24 09:25 ons/Nightma res Physical Exam Vitals: Vital Signs Temp Pulse Pulse Pulse Resp BP BP 03/19/24 08:04 98.4 F 62 18 98/51 03/19/24 04:00 65 16 105/60 03/18/24 23:45 54 L 16 118/72 03/18/24 21:33 97.9 F 104 H 16 131/60 03/18/24 19:11 52 L 16 107/66 03/18/24 11:03 97.9 F 59 L 18 107/70 Pulse Ox 03/19/24 08:04 03/19/24 04:00 95 03/18/24 23:45 100 03/18/24 21:33 98 03/18/24 19:11 99 03/18/24 11:03 100 Intake and Output 03/18/24 03/19/24 03/19/24 22:59 06:59 14:59 Intake Total 360 Balance 360 Intake: Oral 360 Other: Weight 68.039 kg 64.5 kg Results - Lab Results Most recent lab results Calcium 7.0 mg/dL (8.4-10.2) L 03/19/24 06:31 Phosphorus 6.0 mg/dL (2.5-4.5) H 03/19/24 06:31 Magnesium 1.7 mg/dL (1.6-2.3) 03/19/24 06:31 03/19/24 06:31 03/19/24 06:31 Assessment and Plan Plan: Assessment: 1. End-stage renal disease maintained on hemodialysis on Friday schedule. 2. Right lower extremity cellulitis versus peripheral arterial disease. On antibiotics. CTA showed atherosclerotic calcifications and stenosis at the right SFA at mid thigh level. 3. Chronic kidney disease mineral bone disease maintained on PhosLo. Phosphorus level 6.0 dated March 19, 2024. 4. Chronic systolic CHF ejection fraction of less than 20% with aortic stenosis. 5. Anemia of chronic kidney disease. Plan: Hemodialysis tomorrow. Check iron studies. Thank you for the consultation. I will continue to follow the patient with you during his hospital stay.
[2024-03-19] MEDS: PARoxetine 10 MG TAB PO SCH (11:51)
[2024-03-19] MEDS: oxyCODONE-APAP 10-325MG 1 EACH TAB PO PRN (14:01)
[2024-03-19 14:59] LABS: % Iron Saturation 32.54 (15.00-50.00)
[2024-03-19] MEDS: VANCOMYCIN 1,250 MG in SODIUM CHLORIDE 0.9% 250 ML IVPB ONE (16:02)
[2024-03-19] MEDS: METOPROLOL SUCCINATE (ER) 25 MG TAB.ER.24H PO SCH (16:03)
--- NOTE | 2024-03-19 18:13 | P.PN ---
Subjective Progress Note Date: 03/19/24 Patient is a 78-year-old male with a history of systolic CHF (EF 15% on echo 06/2023. Managed by Dr. Farah), hyperlipidemia, ESRD (status post kidney transplant x 2) on HD, MRSA infection (bactaremia), and severe aortic stenosis came in for right leg pain. Patient reported it began on Thursday 03/15 at his right lower leg area proximal to the ankle and was sore. His right lower leg then began to swell and become erythematous with tenderness throughout the day. He reported that it also started to spread upward towards his shins. On Friday during dialysis session, patient was advised by the underwear cutter to seek care. Yesterday on 03/17 patient saw his PCP and right leg was placed in a medicated wrap. No improvement of symptoms led him to seek care at the emergency room. He denies fever, nausea and vomiting, sweats, dizziness, chest pain, claudications, shortness of breath, abdominal pain, recent travel, or sick contacts. Pain of the RLE is 10/10 at maximal intensity and at time of interview was rated at a 6/10. At the emergency room, Doppler ultrasound of right lower leg resulted negative for DVT. CT angio of the right lower extremity shows modified focal stenosis of right SFA and extends throughout the leg. EKG shows ventricular rhythm with a rate of 64 wide QRS QTc 475 MS. WBC 6.4, hemoglobin 10.3, platelets 70, sodium 137, potassium 137, chloride 94, BUN 33, creatinine 3.2, lactic acid 1.4, calcium 7.4, total bilirubin 1.6, alk phos 163, albumin 3.3, AST 46, ALT 29. On admission, patient was afebrile at 97.9 Fahrenheit pulse rate 59 respiratory rate 18 blood pressure 107/70 O2 saturation 100% at 2 L nasal cannula. Progress note 03/19/2024 patient seen and examined sitting upright in chair. No events overnight. Patient has no pain in lower extremities at this time. Last dialysis treatment was yesterday. He has no other complaints at this time. Review of systems: Pertinent positives and negatives as discussed in HPI, a complete review of systems was performed and all other systems are negative. Physical examination: Vital signs reviewed General: non toxic, no distress, appears at stated age, normal weight Derm: no unusual rashes/lesions, warm, wound at right lateral knee bandaged dry and clean, RLE erythema and induration with warmth and tenderness extending to proximal ankle Head: atraumatic, normocephalic, symmetric Eyes: EOMI, no lid lag, anicteric sclera, pupils equal round reactive to light ENT: Nose and ears atraumatic Neck: No cervical lymphadenopathy, trachea midline, supple Mouth: no lip lesion, mucus membranes moist Cardiovascular: S1S2 reg, Grade 4 holosystolic murmur best heard at apex Lungs: CTA bilateral, no rhonchi, no rales, no accessory muscle use Abdominal: soft, nontender to palpation, no guarding Ext: muscle strength 5 out of 5 in all 4 extremities grossly, no gross muscle atrophy, no contractures, positive dorsalis pedis pulse bilateral, 2+ pedal edema bilaterally, right lower leg warm to touch and tender on light palpation Neuro: CN II-XI grossly intact, no gross focal neuro deficits Psych: Alert, oriented, appropriate affect and mood Labs reviewed todayWBC 6.0, hemoglobin 9.9, platelets 71, sodium 136, potassium 3.8, bicarb 33, BUN 47, creatinine 4.68, calcium 7.0, phosphorus 6.0, iron 55, TIBC 169, percent saturated 32%, transferrin 121, ferritin 1167, B12 803, TSH 0.852 Assessment/Plan: #. Cellulitis of the right lower extremity Patient has erythma and swelling of affected leg with tenderness Continue home Percocet 1 mg every 12 hours as needed for pain -Vancomycin to dose per pharmacy, monitor Vanco troughs -Wound care and infectious disease following -Order blood cultures -Prior history of MRSA infection #. Symptomatic peripheral artery disease of right lower extremity CT angio showed moderate focal stenosis of right superficial femoral artery that extends throughout leg -Aspirin 81 p.o. OD -Increase Lipitor 80 p.o. mg OD -Consulted vascular surgery, recommendations appreciated #. ESRD on hemodialysis -Resume PhosLo and D3 supplement -BMP, Mag, Phos at a.m. -nephrology note reviewed, plan for HD tomorrow #. Systolic CHF not in exacerbation Ejection fraction 15% on echo 06/2023 -Bumex 4mg PO OD, metoprolol 25 Mg daily -Currently not on guideline directed medical therapy #. Macrocytic anemia, stable - B12 803 and Folate levels -Iron studies pending per nephrology #. Thrombocytopenia due to ESRD Platelet count 71, at baseline -CBC at a.m. Chronic: #. Hyperlipidemiaas above #Goutallopurinol 100 mg daily #Parkinson'scontinue ropinirole 2 mg twice daily Depression-paroxetine 10 mg daily DVT prophylaxis: Heparin subq CODE STATUS: Full Discussed with: Patient Anticipated discharge place: Home I have seen and evaluated the patient today. Discussed with the resident and agree with the residents finding and plan as documented in the resident's note. Changes highlighted in blue font. Objective - Vital Signs Vital signs: Vital Signs Temp 98.4 F 03/19/24 08:04 Pulse 67 03/19/24 15:54 Resp 16 03/19/24 15:54 BP 106/62 03/19/24 15:54 Pulse Ox 92 L 03/19/24 15:54 FiO2 Intake & Output 03/18/24 03/19/24 03/19/24 18:59 06:59 18:59 Intake Total 360 Balance 360 Weight 68.039 kg 64.5 kg Intake: Oral 360 - Labs CBC & Chem 7: 03/19/24 06:31 03/19/24 06:31 Labs: Abnormal Lab Results - Last 24 Hours (Table) 03/19/24 03/19/24 03/19/24 Range/Units 06:31 06:31 06:31 RBC 2.90 L (4.30-5.90) m/uL Hgb 9.9 L (13.0-17.5) gm/dL Hct 31.9 L (39.0-53.0) % MCV 109.9 H (80.0-100.0) fL RDW 16.4 H (11.5-15.5) % Plt Count 71 L (150-450) k/uL Lymphocytes # 0.3 L (1.0-4.8) k/uL Macrocytosis Marked A Sodium 136 L (137-145) mmol/L Chloride 96 L (98-107) mmol/L Carbon Dioxide 33 H (22-30) mmol/L BUN 47 H (9-20) mg/dL Creatinine 4.68 H (0.66-1.25) mg/dL Calcium 7.0 L (8.4-10.2) mg/dL Phosphorus 6.0 H (2.5-4.5) mg/dL Iron 55 L (65-175) UG/DL TIBC 169 L (228-460) UG/DL Transferrin 121.0 L (204.0-354.0) mg/dL Ferritin 1167.0 H (22.0-322.0) ng/mL
[2024-03-20 07:37] LABS: Anisocytosis Slight; Basophils % (A) 0 %; Eosinophils # (A) 0.1 k/uL (0-0.7); Eosinophils % (A) 2 %; HCT 31.6 % (39.0-53.0); Hypochromasia Slight; Lymphocytes # (A) 0.4 k/uL (1.0-4.8); Lymphocytes % (A) 6 %; MCH 34.2 pg (25.0-35.0); MCHC 31.6 g/dL (31.0-37.0); MCV 108.4 fL (80.0-100.0); Macrocytosis Marked; Mean Platelet Volume 10.9; Monocytes # (A) 0.5 k/uL (0-1.0); Monocytes % (A) 6 %; Neutrophils # (A) 6.7 k/uL (1.3-7.7); Neutrophils % (A) 85 %; Platelet Count 80 k/uL (150-450); RBC 2.91 m/uL (4.30-5.90); RDW 16.3 % (11.5-15.5); WBC 7.9 k/uL (3.8-10.6)
[2024-03-20 07:44] LABS: African American GFR (CKD) 10 (>60 ml/min/1.73 sqM); Anion Gap 11 mmol/L; Blood Urea Nitrogen 59 mg/dL (9-20); Calcium 6.7 mg/dL (8.4-10.2); Carbon Dioxide 25 mmol/L (22-30); Chloride 93 mmol/L (98-107); Glucose 93 mg/dL (74-99); Non-African American GFR(CKD) 8 (>60 ml/min/1.73 sqM); Potassium 4.7 mmol/L (3.5-5.1); Sodium 129 mmol/L (137-145)
[2024-03-20 07:49] LABS: Vancomycin,Random 21.7 ug/mL
[2024-03-20 08:07] LABS: INR 1.1 (<1.2); Partial Thromboplastin Time 32.2 sec (22.0-30.0); Prothrombin Time 11.5 sec (10.0-12.5)
[2024-03-20] MEDS ORDERED: NON FORMULARY DRUG (Omega-3/Dha/Epa/Fish Oil [Fish Oil 1,000 Mg Softgel] 1 EACH Capsule) PO SCH (09:00)
--- NOTE | 2024-03-20 09:15 | P.CONS ---
History of Present Illness - Reason for Consult Consult date: 03/19/24 Cellulitis of the right lower extremity Requesting physician: Sandra Gomez - Chief Complaint Right leg swelling and redness x 4 days - History of Present Illness Patient is a 78-year-old male with a past medical history significant for end-stage renal disease on dialysis previous history of failed renal transplant CVA aortic stenosis and this patient apparently has been dealing with a nonhealing wound on the right knee at the local wound care center now pre senting to the hospital with increasing pain and swelling redness to the right lower leg that apparently has been going on for about 4 to 5 days before presentation to the hospital patient denies having any trauma patient has been evaluated by his primary care physician and the legs has been treated with a medicated wrap patient mention he did have some improvement initially however subsequent noticed having increasing pain to the right lower extremity patient describes the pain to be sharp almost that is 10 out of 10 in severity without any radiation with associated swelling redness which is warm to touch and open wound or any drainage patient on presentation to the hospital was afebrile and no fever have been recorded subsequently patient was not tachycardic hypotensive or hypoxic he did have a white count of 6.4 BUN/creatinine has been elevated liver enzymes are normal patient did have a venous Doppler study right leg was negative for DVT lower extremity CTA moderate episode of calcification throughout moderate focal stenosis of right SFA at the mid thigh level focal erosion lateral margin of the patella may be due to trauma or gout patient has been started on vancomycin infectious disease was consulted for further management of antibiotic therapy Review of Systems Positive point and negatives has been mentioned in the HPI, complete review of systems was performed and all other systems are negative 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%, history of renal transplant and 2 in 1992 from a donor and in 1995 from a living donor, history of neck fracture, history of Covid 19 infection, severe aortic stenosis, anemia of chronic disease neuropathy, dialysis Friday History of Any Multi-Drug Resistant Organisms: MRSA Year Discovered:: 06/30/23 MDRO Source:: Blood Past Surgical History: Appendectomy Additional Past Surgical History / Comment(s): Kidney transplant in 07/28/1992 and 1995 and 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 Father Family Medical History: CVA/TIA Additional Family Medical History / Comment(s): of stroke. Medications and Allergies Home Medications Medication Instructions Recorded Confirmed Type Atorvastatin [Lipitor] 10 mg PO HS 01/29/22 03/19/24 History [place]-3/Dha/Epa/Fish Oil [Fish Oil 1 cap PO DAILY 01/29/22 03/19/24 History 1,000 mg Softgel] Isosorbide Mononitrate ER [Imdur] 30 mg PO DAILY 01/30/22 03/19/24 History rOPINIRole HCL [Requip] 2 mg PO BID 05/01/22 03/19/24 History Metoprolol Succinate (ER) [Toprol 25 mg PO DAILY #30 tab 06/26/22 03/19/24 Rx XL] Bumetanide [BUMEX] 4 mg PO DAILY 08/16/22 03/19/24 History Calcium Acetate [PhosLo] 1,334 mg PO TID-W/MEALS 08/16/22 03/19/24 History allopurinoL [Zyloprim] 100 mg PO DAILY 02/12/23 03/19/24 History oxyCODONE-APAP 5-325MG [Percocet 1 - 1.5 tab PO TID PRN 02/12/23 03/19/24 History 5-325 mg] Midodrine [ProAmatine] 5 mg PO AC-BID PRN 09/25/23 03/19/24 History Carboxymethylcellulose Sodium 1 drop BOTH EYES TID 03/19/24 03/19/24 History [Refresh Tears] Cephalexin [Keflex] 500 mg PO QID 03/19/24 03/19/24 History Cholecalciferol (Vitamin D3) 50 mcg PO DAILY 03/19/24 03/19/24 History [Vitamin D3 (50 Mcg = 2000 Iu)] Lidocaine 5% Oint [Xylocaine 5% 1 applic TOPICAL DIRECTED PRN 03/19/24 03/19/24 History Oint] PARoxetine [Paxil] 10 mg PO DAILY 03/19/24 03/19/24 History Allergies Allergy/AdvReac Type Severity Reaction Status Date / Time losartan Allergy Intermediate Swelling Verified 03/19/24 09:25 Aminoglycosides Allergy Unknown Unknown Verified 03/19/24 09:25 REINIER Inhibitors Allergy Unknown Verified 03/19/24 09:25 enalapril Allergy Swelling Verified 03/19/24 09:25 enalaprilat [From Vasotec] Allergy Swelling Verified 03/19/24 09:25 ibuprofen Allergy Unknown Verified 03/19/24 09:25 lisinopril Allergy Swelling Verified 03/19/24 09:25 vancomycin Allergy Unknown Verified 03/19/24 09:25 vitamin A Allergy Unknown Verified 03/19/24 09:25 gabapentin AdvReac Hallucinati Verified 03/19/24 09:25 ons/Nightma res Physical Exam Vitals: Vital Signs Temp Pulse Pulse Pulse Resp BP BP 03/19/24 08:04 98.4 F 62 18 98/51 03/19/24 04:00 65 16 105/60 03/18/24 23:45 54 L 16 118/72 03/18/24 21:33 97.9 F 104 H 16 131/60 03/18/24 19:11 52 L 16 107/66 03/18/24 11:03 97.9 F 59 L 18 107/70 Pulse Ox 03/19/24 08:04 03/19/24 04:00 95 03/18/24 23:45 100 03/18/24 21:33 98 03/18/24 19:11 99 03/18/24 11:03 100 Intake and Output 03/18/24 03/19/24 03/19/24 22:59 06:59 14:59 Other: Weight 68.039 kg 64.5 kg GENERAL DESCRIPTION: Elderly male up in the chair, no distress. No tachypnea or accessory muscle of respiration use. HEENT: Shows Pallor , no scleral icterus. Oral mucous membrane is dry. No pharyngeal erythema or thrush NECK: Trachea central, no thyromegaly. LUNGS: Unlabored breathing. Clear to auscultation anteriorly. No wheeze or crackle. HEART: S1, S2, regular rate and rhythm. No loud murmur ABDOMEN: Soft, no tenderness , guarding or rigidity, no organomegaly EXTREMITIES: Right knee did have a superficial wound but no redness minimal drainage that was cultured right leg did have swelling and redness which is warm and tender to touch. SKIN: No rash, no masses palpable. NEUROLOGICAL: The patient is awake, alert, oriented x3, mood and affect normal. Results CBC & Chem 7: 03/20/24 06:48 03/20/24 06:48 Labs: Abnormal Lab Results - Last 24 Hours (Table) 03/18/24 03/18/24 03/18/24 Range/Units 12:44 12:44 12:44 RBC 3.00 L (4.30-5.90) m/uL Hgb 10.3 L (13.0-17.5) gm/dL Hct 32.6 L (39.0-53.0) % MCV 108.7 H (80.0-100.0) fL RDW 16.4 H (11.5-15.5) % Plt Count 70 L (150-450) k/uL Lymphocytes # 0.3 L (1.0-4.8) k/uL Macrocytosis Marked A APTT 31.5 H (22.0-30.0) sec Sodium (137-145) mmol/L Chloride 94 L (98-107) mmol/L Carbon Dioxide 37 H (22-30) mmol/L BUN 33 H (9-20) mg/dL Creatinine 3.20 H (0.66-1.25) mg/dL Calcium 7.4 L (8.4-10.2) mg/dL Phosphorus (2.5-4.5) mg/dL Total Bilirubin 1.6 H (0.2-1.3) mg/dL Alkaline Phosphatase 163 H (38-126) U/L Albumin 3.3 L (3.5-5.0) g/dL 03/19/24 03/19/24 Range/Units 06:31 06:31 RBC 2.90 L (4.30-5.90) m/uL Hgb 9.9 L (13.0-17.5) gm/dL Hct 31.9 L (39.0-53.0) % MCV 109.9 H (80.0-100.0) fL RDW 16.4 H (11.5-15.5) % Plt Count 71 L (150-450) k/uL Lymphocytes # 0.3 L (1.0-4.8) k/uL Macrocytosis Marked A APTT (22.0-30.0) sec Sodium 136 L (137-145) mmol/L Chloride 96 L (98-107) mmol/L Carbon Dioxide 33 H (22-30) mmol/L BUN 47 H (9-20) mg/dL Creatinine 4.68 H (0.66-1.25) mg/dL Calcium 7.0 L (8.4-10.2) mg/dL Phosphorus 6.0 H (2.5-4.5) mg/dL Total Bilirubin (0.2-1.3) mg/dL Alkaline Phosphatase (38-126) U/L Albumin (3.5-5.0) g/dL Assessment and Plan (1) Cellulitis of right leg Current Visit: Yes Status: Acute Code(s): L03.115 - CELLULITIS OF RIGHT LOWER LIMB SNOMED Code(s): 79746616861737211 Plan: 1patient presented to hospital during with increasing pain and redness of right lower extremity in this patient noted to have chronic nonhealing wound of the right knee area with a question of possible source for this cellulitis there was minimal purulent drainage which has been culture and will need to cover for the gram-positive skin vicente specially MRSA to be the likely pathogen 2-local culture has been obtained results we will follow blood culture has been obtained already 3-patient to continue with vancomycin pharmacy to dose with a target trough 15 We will follow on clinical condition and cultures to further adjust medication if needed Thank you for this consultation we will follow the patient along with you Dictation was produced using [employer] dictation software. please excuse any grammatical, word or spelling errors. Time with Patient: Greater than 30
--- NOTE | 2024-03-20 12:38 | P.PN ---
Subjective Progress Note Date: 03/20/24 Patient is a 78-year-old male with a history of systolic CHF (EF 15% on echo 06/2023. Managed by Dr. Farah), hyperlipidemia, ESRD (status post kidney transplant x 2) on HD, MRSA infection (bactaremia), and severe aortic stenosis came in for right leg pain. Patient reported it began on Thursday 03/15 at his right lower leg area proximal to the ankle and was sore. His right lower leg then began to swell and become erythematous with tenderness throughout the day. He reported that it also started to spread upward towards his shins. On Friday during dialysis session, patient was advised by the airport refueling handler to seek care. Yesterday on 03/17 patient saw his PCP and right leg was placed in a medicated wrap. No improvement of symptoms led him to seek care at the emergency room. He denies fever, nausea and vomiting, sweats, dizziness, chest pain, claudications, shortness of breath, abdominal pain, recent travel, or sick contacts. Pain of the RLE is 10/10 at maximal intensity and at time of interview was rated at a 6/10. At the emergency room, Doppler ultrasound of right lower leg resulted negative for DVT. CT angio of the right lower extremity shows modified focal stenosis of right SFA and extends throughout the leg. EKG shows ventricular rhythm with a rate of 64 wide QRS QTc 475 MS. WBC 6.4, hemoglobin 10.3, platelets 70, sodium 137, potassium 137, chloride 94, BUN 33, creatinine 3.2, lactic acid 1.4, calcium 7.4, total bilirubin 1.6, alk phos 163, albumin 3.3, AST 46, ALT 29. On admission, patient was afebrile at 97.9 Fahrenheit pulse rate 59 respiratory rate 18 blood pressure 107/70 O2 saturation 100% at 2 L nasal cannula. Progress note 03/20/2024 No events overnight. Patient seen and examined, laying comfortably in bed having breakfast. He was receiving dialysis. Patient has no active pain in lower extremities at this time. He has no other complaints at this time. Review of systems: Pertinent positives and negatives as discussed in HPI, a complete review of systems was performed and all other systems are negative. Physical examination: Vital signs reviewed General: non toxic, no distress, appears at stated age, normal weight Derm: no unusual rashes/lesions, warm, wound at right lateral knee bandaged dry and clean, RLE erythema and induration with warmth and extremely sensitive and tenderness to light touch extending to proximal ankle Head: atraumatic, normocephalic, symmetric Eyes: EOMI, no lid lag, anicteric sclera, pupils equal round reactive to light ENT: Nose and ears atraumatic Neck: No cervical lymphadenopathy, trachea midline, supple Mouth: no lip lesion, mucus membranes moist Cardiovascular: S1S2 reg, Grade 4 holosystolic murmur best heard at apex Lungs: CTA bilateral, no rhonchi, no rales, no accessory muscle use Abdominal: soft, nontender to palpation, no guarding Ext: muscle strength 5 out of 5 in all 4 extremities grossly, no gross muscle atrophy, no contractures, positive dorsalis pedis pulse bilateral, 2+ pedal edema bilaterally, right lower leg warm to touch and tender on light palpation Neuro: CN II-XI grossly intact, no gross focal neuro deficits Psych: Alert, oriented, appropriate affect and mood Labs reviewed todayWBC 7.9, hemoglobin 10, platelets 80, APTT 32.2, sodium 129, potassium 4.7, chloride 93, bicarb 25, BUN 59, creatinine 5.92, calcium 6.7, random vancomycin 21.7 Assessment/Plan: #. Severe cellulitis of the right lower extremity Patient has erythma and swelling of affected leg with tenderness Continue home Percocet 1 mg every 12 hours as needed for pain - Continue vancomycin day #2 to dose per pharmacy, monitor Vanco troughs -Wound care and infectious disease following, note reviewed -blood culturespreliminary no growth -Prior history of MRSA infection #. Symptomatic peripheral artery disease of right lower extremity CT angio showed moderate focal stenosis of right superficial femoral artery that extends throughout leg -Aspirin 81 p.o. OD -Increase Lipitor 80 p.o. mg OD -Consulted vascular surgery, recommendations appreciated #. ESRD on hemodialysis Hypervolemic hyponatremia -Resume PhosLo and D3 supplement -BMP, Mag, Phos at a.m. -nephrology note reviewed, HD today #. Systolic CHF not in exacerbation Ejection fraction 15% on echo 06/2023 -Bumex 4mg PO OD, metoprolol 25 Mg daily -Currently not on guideline directed medical therapy #. Anemia of chronic kidney disease - B12 803 and Folate levels Iron 55, TIBC 169, percent saturated 32%, transferrin 121, ferritin 1167 #. Thrombocytopenia due to ESRD Platelet count 71, at baseline -CBC at a.m. Chronic: #. Hyperlipidemiaas above #Goutallopurinol 100 mg daily #Parkinson'scontinue ropinirole 2 mg twice daily Depression-paroxetine 10 mg daily DVT prophylaxis: Heparin subq CODE STATUS: Full Discussed with: Patient Anticipated discharge place: Home I have seen and evaluated the patient today. Discussed with the resident and agree with the residents finding and plan as documented in the resident's note. Changes highlighted in blue font. Objective - Vital Signs Vital signs: Vital Signs Temp 98.2 F 03/20/24 08:00 Pulse 57 L 03/20/24 11:32 Resp 16 03/20/24 11:32 BP 112/62 03/20/24 11:32 Pulse Ox 98 03/20/24 11:32 FiO2 Intake & Output 03/19/24 03/20/24 03/20/24 18:59 06:59 18:59 Intake Total 720 10 240 Output Total 0 Balance 720 10 240 Weight 69.5 kg Intake: IV 10 Invasive Line 1 10 Oral 720 240 Output: Urine 0 Other: # Voids 0 0 # Bowel Movements 0 - Labs CBC & Chem 7: 03/20/24 06:48 03/20/24 06:48 Labs: Abnormal Lab Results - Last 24 Hours (Table) 03/19/24 03/20/24 03/20/24 Range/Units 06:31 06:48 06:48 RBC 2.91 L (4.30-5.90) m/uL Hgb 10.0 L (13.0-17.5) gm/dL Hct 31.6 L (39.0-53.0) % MCV 108.4 H (80.0-100.0) fL RDW 16.3 H (11.5-15.5) % Plt Count 80 L (150-450) k/uL Lymphocytes # 0.4 L (1.0-4.8) k/uL Macrocytosis Marked A APTT (22.0-30.0) sec Sodium 129 L (137-145) mmol/L Chloride 93 L (98-107) mmol/L BUN 59 H (9-20) mg/dL Creatinine 5.92 H (0.66-1.25) mg/dL Calcium 6.7 L (8.4-10.2) mg/dL Iron 55 L (65-175) UG/DL TIBC 169 L (228-460) UG/DL Transferrin 121.0 L (204.0-354.0) mg/dL Ferritin 1167.0 H (22.0-322.0) ng/mL 03/20/24 Range/Units 06:48 RBC (4.30-5.90) m/uL Hgb (13.0-17.5) gm/dL Hct (39.0-53.0) % MCV (80.0-100.0) fL RDW (11.5-15.5) % Plt Count (150-450) k/uL Lymphocytes # (1.0-4.8) k/uL Macrocytosis APTT 32.2 H (22.0-30.0) sec Sodium (137-145) mmol/L Chloride (98-107) mmol/L BUN (9-20) mg/dL Creatinine (0.66-1.25) mg/dL Calcium (8.4-10.2) mg/dL Iron (65-175) UG/DL TIBC (228-460) UG/DL Transferrin (204.0-354.0) mg/dL Ferritin (22.0-322.0) ng/mL Microbiology - Last 24 Hours (Table) 03/18/24 23:22 Blood Culture - Preliminary Blood
--- NOTE | 2024-03-20 12:43 | P.PN ---
Subjective Progress Note Date: 03/20/24 PAtient seen in follow-up for ESRD. Seen while on HD today tolerating well. Vital signs are stable. General: No acute distress. HEENT: Head exam is unremarkable. LUNGS: No audible rhonchi or wheezes. HEART: Rate and Rhythm are regular. ABDOMEN: Nontender. EXTREMITITES: Right lower extremity erythema noted. Tender to touch. Chronic changes noted in the left lower extremity. Objective - Vital Signs Vital signs: Vital Signs Temp 98.2 F 03/20/24 08:00 Pulse 56 L 03/20/24 08:00 Resp 17 03/20/24 08:00 BP 106/61 03/20/24 08:00 Pulse Ox 96 03/20/24 08:00 FiO2 Intake & Output 03/19/24 03/20/24 03/20/24 18:59 06:59 18:59 Intake Total 720 10 240 Output Total 0 Balance 720 10 240 Weight 69.5 kg Intake: IV 10 Invasive Line 1 10 Oral 720 240 Output: Urine 0 Other: # Voids 0 0 # Bowel Movements 0 - Labs CBC & Chem 7: 03/20/24 06:48 03/20/24 06:48 Labs: Abnormal Lab Results - Last 24 Hours (Table) 03/19/24 03/20/24 03/20/24 Range/Units 06:31 06:48 06:48 RBC 2.91 L (4.30-5.90) m/uL Hgb 10.0 L (13.0-17.5) gm/dL Hct 31.6 L (39.0-53.0) % MCV 108.4 H (80.0-100.0) fL RDW 16.3 H (11.5-15.5) % Plt Count 80 L (150-450) k/uL Lymphocytes # 0.4 L (1.0-4.8) k/uL Macrocytosis Marked A APTT (22.0-30.0) sec Sodium 129 L (137-145) mmol/L Chloride 93 L (98-107) mmol/L BUN 59 H (9-20) mg/dL Creatinine 5.92 H (0.66-1.25) mg/dL Calcium 6.7 L (8.4-10.2) mg/dL Iron 55 L (65-175) UG/DL TIBC 169 L (228-460) UG/DL Transferrin 121.0 L (204.0-354.0) mg/dL Ferritin 1167.0 H (22.0-322.0) ng/mL 03/20/24 Range/Units 06:48 RBC (4.30-5.90) m/uL Hgb (13.0-17.5) gm/dL Hct (39.0-53.0) % MCV (80.0-100.0) fL RDW (11.5-15.5) % Plt Count (150-450) k/uL Lymphocytes # (1.0-4.8) k/uL Macrocytosis APTT 32.2 H (22.0-30.0) sec Sodium (137-145) mmol/L Chloride (98-107) mmol/L BUN (9-20) mg/dL Creatinine (0.66-1.25) mg/dL Calcium (8.4-10.2) mg/dL Iron (65-175) UG/DL TIBC (228-460) UG/DL Transferrin (204.0-354.0) mg/dL Ferritin (22.0-322.0) ng/mL Microbiology - Last 24 Hours (Table) 03/18/24 23:22 Blood Culture - Preliminary Blood Assessment and Plan Assessment: 1. End-stage renal disease maintained on hemodialysis on Friday schedule. 2. Right lower extremity cellulitis versus peripheral arterial disease. On antibiotics. CTA showed atherosclerotic calcifications and stenosis at the right SFA at mid thigh level. 3. Chronic kidney disease mineral bone disease maintained on PhosLo. Phosphorus level 6.0 dated March 19, 2024. 4. Chronic systolic CHF ejection fraction of less than 20% with aortic stenosis. 5. Anemia of chronic kidney disease. Plan: Seen on Hemodialysis today. ABX per ID Next HD treatment Friday
--- NOTE | 2024-03-20 13:56 | P.PN ---
Subjective Progress Note Date: 03/20/24 Principal diagnosis: Reason for follow-up is right leg cellulitis Patient is a 78-year-old male with a past medical history significant for end-stage renal disease on dialysis previous history of failed renal transplant CVA aortic stenosis and this patient apparently has been dealing with a nonhealing wound on the right knee at the local wound care center now present ing to the hospital with increasing pain and swelling redness to the right lower leg patient has been diagnosed with a cellulitis started on vancomycin. On today's evaluation that is 03/20/2024,the patient denies any fever or any chills, patient is breathing comfortably on room air, the patient denies chest pain shortness of breath and no significant cough, patient denies abdominal pain, no nausea vomiting or diarrhea. Pain to the right leg slightly decreased in intensity. Patient white count 7.9 platelets 5.92 Vanco April 28 1.7 cultures currently pending Objective - Vital Signs Vital signs: Vital Signs Temp 98.2 F 03/20/24 08:00 Pulse 57 L 03/20/24 11:32 Resp 16 03/20/24 11:32 BP 112/62 03/20/24 11:32 Pulse Ox 98 03/20/24 11:32 FiO2 Intake & Output 03/19/24 03/20/24 03/20/24 18:59 06:59 18:59 Intake Total 720 10 240 Output Total 0 Balance 720 10 240 Weight 69.5 kg Intake: IV 10 Invasive Line 1 10 Oral 720 240 Output: Urine 0 Other: # Voids 0 0 # Bowel Movements 0 - Exam GENERAL DESCRIPTION: An elderly male lying in bed in no distress RESPIRATORY SYSTEM: Unlabored breathing , decreased breath sounds at bases HEART: S1 S2 regular rate and rhythm , ABDOMEN: Soft , no tenderness EXTREMITIES: Right leg swelling redness slightly decreased - Labs CBC & Chem 7: 03/20/24 06:48 03/20/24 06:48 Labs: Abnormal Lab Results - Last 24 Hours (Table) 03/19/24 03/20/24 03/20/24 Range/Units 06:31 06:48 06:48 RBC 2.91 L (4.30-5.90) m/uL Hgb 10.0 L (13.0-17.5) gm/dL Hct 31.6 L (39.0-53.0) % MCV 108.4 H (80.0-100.0) fL RDW 16.3 H (11.5-15.5) % Plt Count 80 L (150-450) k/uL Lymphocytes # 0.4 L (1.0-4.8) k/uL Macrocytosis Marked A APTT (22.0-30.0) sec Sodium 129 L (137-145) mmol/L Chloride 93 L (98-107) mmol/L BUN 59 H (9-20) mg/dL Creatinine 5.92 H (0.66-1.25) mg/dL Calcium 6.7 L (8.4-10.2) mg/dL Iron 55 L (65-175) UG/DL TIBC 169 L (228-460) UG/DL Transferrin 121.0 L (204.0-354.0) mg/dL Ferritin 1167.0 H (22.0-322.0) ng/mL 03/20/24 Range/Units 06:48 RBC (4.30-5.90) m/uL Hgb (13.0-17.5) gm/dL Hct (39.0-53.0) % MCV (80.0-100.0) fL RDW (11.5-15.5) % Plt Count (150-450) k/uL Lymphocytes # (1.0-4.8) k/uL Macrocytosis APTT 32.2 H (22.0-30.0) sec Sodium (137-145) mmol/L Chloride (98-107) mmol/L BUN (9-20) mg/dL Creatinine (0.66-1.25) mg/dL Calcium (8.4-10.2) mg/dL Iron (65-175) UG/DL TIBC (228-460) UG/DL Transferrin (204.0-354.0) mg/dL Ferritin (22.0-322.0) ng/mL Microbiology - Last 24 Hours (Table) 03/18/24 23:22 Blood Culture - Preliminary Blood Assessment and Plan (1) Cellulitis of right leg Current Visit: Yes Status: Acute Code(s): L03.115 - CELLULITIS OF RIGHT LOWER LIMB SNOMED Code(s): 83157671085637140 Plan: 1patient presented to hospital during with increasing pain and redness of right lower extremity in this patient noted to have chronic nonhealing wound of the right knee area with a question of possible source for this cellulitis there was minimal purulent drainage which has been culture and will need to cover for the gram-positive skin vicente specially MRSA to be the likely pathogen 2-local culture has been obtained which are currently pending 3-patient right leg redness slightly decreased, to continue with vancomycin pharmacy to dose with a target trough 15 while waiting for the culture to finalize Dictation was produced using [employer] dictation software. please excuse any grammatical, word or spelling errors. Time with Patient: Less than 30
[2024-03-21 07:21] LABS: Anisocytosis Slight; Basophils % (A) 0 %; Eosinophils # (A) 0.1 k/uL (0-0.7); Eosinophils % (A) 1 %; HCT 31.8 % (39.0-53.0); HGB 10.3 gm/dL (13.0-17.5); Hypochromasia Moderate; Lymphocytes # (A) 0.5 k/uL (1.0-4.8); Lymphocytes % (A) 6 %; MCHC 32.4 g/dL (31.0-37.0); MCV 107.8 fL (80.0-100.0); Macrocytosis Marked; Mean Platelet Volume 10.6; Monocytes # (A) 0.5 k/uL (0-1.0); Monocytes % (A) 6 %; Neutrophils # (A) 8.1 k/uL (1.3-7.7); Neutrophils % (A) 86 %; RBC 2.95 m/uL (4.30-5.90); RDW 16.3 % (11.5-15.5); WBC 9.4 k/uL (3.8-10.6)
[2024-03-21 07:34] LABS: African American GFR (CKD) 15 (>60 ml/min/1.73 sqM); Anion Gap 11 mmol/L; Blood Urea Nitrogen 36 mg/dL (9-20); Calcium 7.5 mg/dL (8.4-10.2); Carbon Dioxide 27 mmol/L (22-30); Chloride 92 mmol/L (98-107); Glucose 78 mg/dL (74-99); Non-African American GFR(CKD) 13 (>60 ml/min/1.73 sqM); Potassium 4.5 mmol/L (3.5-5.1); Sodium 130 mmol/L (137-145)
[2024-03-21 07:40] LABS: Vancomycin,Random 15.9 ug/mL
[2024-03-21 07:41] LABS: INR 1.1 (<1.2); Partial Thromboplastin Time 32.1 sec (22.0-30.0); Prothrombin Time 11.7 sec (10.0-12.5)
[2024-03-21 09:21] LABS: Platelet Count 84 k/uL (150-450)
--- NOTE | 2024-03-21 09:54 | P.GSCN ---
History of Present Illness Consult date: 03/21/24 History of present illness: Patient is an 78-year-old male with multiple medical comorbidities including end-stage renal disease, previously on dialysis, nonhealing wound of the right knee, mild peripheral vascular disease previously seen in our office and found to have evidence of noncompressibility however with multiphasic waveforms on recent ultrasound. He states that approximately 4 to 5 days ago he began having some pain in his right lower leg with swelling and warmth. He was found to have evidence of cellulitis and initiated on antibiotic. He denies any significant change in his pain otherwise other than at this site. 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%, history of renal transplant and 2 in 1992 from a donor and in 1995 from a living donor, history of neck fracture, history of Covid 19 infection, severe aortic stenosis, anemia of chronic disease neuropathy, dialysis Friday History of Any Multi-Drug Resistant Organisms: MRSA Year Discovered:: 06/30/23 MDRO Source:: Blood Past Surgical History: Appendectomy Additional Past Surgical History / Comment(s): Kidney transplant in 07/28/1992 and 1995 and 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 Father Family Medical History: CVA/TIA Additional Family Medical History / Comment(s): of stroke. Medications and Allergies Home Medications Medication Instructions Recorded Confirmed Type Atorvastatin [Lipitor] 10 mg PO HS 01/29/22 03/19/24 History [place]-3/Dha/Epa/Fish Oil [Fish Oil 1 cap PO DAILY 01/29/22 03/19/24 History 1,000 mg Softgel] Isosorbide Mononitrate ER [Imdur] 30 mg PO DAILY 01/30/22 03/19/24 History rOPINIRole HCL [Requip] 2 mg PO BID 05/01/22 03/19/24 History Metoprolol Succinate (ER) [Toprol 25 mg PO DAILY #30 tab 06/26/22 03/19/24 Rx XL] Bumetanide [BUMEX] 4 mg PO DAILY 08/16/22 03/19/24 History Calcium Acetate [PhosLo] 1,334 mg PO TID-W/MEALS 08/16/22 03/19/24 History allopurinoL [Zyloprim] 100 mg PO DAILY 02/12/23 03/19/24 History oxyCODONE-APAP 5-325MG [Percocet 1 - 1.5 tab PO TID PRN 02/12/23 03/19/24 History 5-325 mg] Midodrine [ProAmatine] 5 mg PO AC-BID PRN 09/25/23 03/19/24 History Carboxymethylcellulose Sodium 1 drop BOTH EYES TID 03/19/24 03/19/24 History [Refresh Tears] Cephalexin [Keflex] 500 mg PO QID 03/19/24 03/19/24 History Cholecalciferol (Vitamin D3) 50 mcg PO DAILY 03/19/24 03/19/24 History [Vitamin D3 (50 Mcg = 2000 Iu)] Lidocaine 5% Oint [Xylocaine 5% 1 applic TOPICAL DIRECTED PRN 03/19/24 03/19/24 History Oint] PARoxetine [Paxil] 10 mg PO DAILY 03/19/24 03/19/24 History Allergies Allergy/AdvReac Type Severity Reaction Status Date / Time losartan Allergy Intermediate Swelling Verified 03/19/24 09:25 Aminoglycosides Allergy Unknown Unknown Verified 03/19/24 09:25 REINIER Inhibitors Allergy Unknown Verified 03/19/24 09:25 enalapril Allergy Swelling Verified 03/19/24 09:25 enalaprilat [From Vasotec] Allergy Swelling Verified 03/19/24 09:25 ibuprofen Allergy Unknown Verified 03/19/24 09:25 lisinopril Allergy Swelling Verified 03/19/24 09:25 vancomycin Allergy Unknown Verified 03/19/24 09:25 vitamin A Allergy Unknown Verified 03/19/24 09:25 gabapentin AdvReac Hallucinati Verified 03/19/24 09:25 ons/Nightma res Surgical - Exam Vital Signs Temp Pulse Resp BP Pulse Ox 97.9 F 59 L 18 107/70 100 03/18/24 11:03 03/18/24 11:03 03/18/24 11:03 03/18/24 11:03 03/18/24 11:03 General Is a pleasant cooperative elderly chronically ill-appearing male in no acute distress sitting at the bedside with his legs dangling over the side of the edge. He maintains palpable femoral and popliteal pulse, difficult to palpate pedal pulses. There is an area of of darkened erythema at the anterior olivares with what appears to be a central area of worsened skin finding, no areas of necrosis noted. Results CT scan is reviewed. There does appear to be mild diffuse disease through the right superficial femoral artery with a focal area of moderate disease. Difficult to evaluate below-knee due to diabetic calcific disease, however no obvious occlusions acute - Labs 03/21/24 06:20 03/21/24 06:20 Abnormal Lab Results - Last 24 Hours (Table) 03/21/24 03/21/24 03/21/24 Range/Units 06:20 06:20 06:20 RBC 2.95 L (4.30-5.90) m/uL Hgb 10.3 L (13.0-17.5) gm/dL Hct 31.8 L (39.0-53.0) % MCV 107.8 H (80.0-100.0) fL RDW 16.3 H (11.5-15.5) % Plt Count 84 L (150-450) k/uL Neutrophils # 8.1 H (1.3-7.7) k/uL Lymphocytes # 0.5 L (1.0-4.8) k/uL Macrocytosis Marked A APTT 32.1 H (22.0-30.0) sec Sodium 130 L (137-145) mmol/L Chloride 92 L (98-107) mmol/L BUN 36 H (9-20) mg/dL Creatinine 3.98 H (0.66-1.25) mg/dL Calcium 7.5 L (8.4-10.2) mg/dL Microbiology - Last 24 Hours (Table) 03/19/24 17:36 Gram Stain - Preliminary Knee - Right Wound Culture - Preliminary Presumptive Staph aureus 03/18/24 23:22 Blood Culture - Preliminary Blood Diabetes panel 03/21/24 Range/Units 06:20 Sodium 130 L (137-145) mmol/L Potassium 4.5 (3.5-5.1) mmol/L Chloride 92 L (98-107) mmol/L Carbon Dioxide 27 (22-30) mmol/L BUN 36 H (9-20) mg/dL Creatinine 3.98 H (0.66-1.25) mg/dL Glucose 78 (74-99) mg/dL Calcium 7.5 L (8.4-10.2) mg/dL Calcium panel 03/21/24 Range/Units 06:20 Calcium 7.5 L (8.4-10.2) mg/dL Pituitary panel 03/21/24 Range/Units 06:20 Sodium 130 L (137-145) mmol/L Potassium 4.5 (3.5-5.1) mmol/L Chloride 92 L (98-107) mmol/L Carbon Dioxide 27 (22-30) mmol/L BUN 36 H (9-20) mg/dL Creatinine 3.98 H (0.66-1.25) mg/dL Glucose 78 (74-99) mg/dL Calcium 7.5 L (8.4-10.2) mg/dL Adrenal panel 03/21/24 Range/Units 06:20 Sodium 130 L (137-145) mmol/L Potassium 4.5 (3.5-5.1) mmol/L Chloride 92 L (98-107) mmol/L Carbon Dioxide 27 (22-30) mmol/L BUN 36 H (9-20) mg/dL Creatinine 3.98 H (0.66-1.25) mg/dL Glucose 78 (74-99) mg/dL Calcium 7.5 L (8.4-10.2) mg/dL Assessment and Plan Assessment: Right lower extremity cellulitis Right lower extremity peripheral vascular disease End-stage renal disease Plan: Overall at this time I believe the patient does have cellulitis, he does have some peripheral vascular disease and will obtain a new Doppler image with waveforms however he maintains palpable femoral and popliteal pulse, likely the majority of this is infrapopliteal disease due to diabetic issues but given recent waveform appearance on imaging, without any further aggressive vascular intervention at this time. Will await repeat ultrasound imaging. Continue an tibiotics. Patient seemingly understands
--- NOTE | 2024-03-21 11:25 | P.PN ---
Subjective Progress Note Date: 03/21/24 Patient seen in follow-up for ESRD. Tolerated HD yesterday without issues. Vital signs are stable. General: No acute distress. HEENT: Head exam is unremarkable. LUNGS: No audible rhonchi or wheezes. HEART: Rate and Rhythm are regular. ABDOMEN: Nontender. EXTREMITITES: Right lower extremity erythema noted. Objective - Vital Signs Vital signs: Vital Signs Temp 98.1 F 03/21/24 08:00 Pulse 64 03/21/24 08:00 Resp 18 03/21/24 08:00 BP 130/71 03/21/24 08:00 Pulse Ox 97 03/21/24 08:00 FiO2 Intake & Output 03/20/24 03/21/24 03/21/24 18:59 06:59 18:59 Intake Total 1760 10 240 Output Total 4500 0 Balance -2740 10 240 Weight 63.5 kg Intake: IV 10 Invasive Line 1 10 Oral 1260 240 Hemodialysis 500 Output: Urine 0 0 Hemodialysis 2500 Hemodialysis Net Amount 2000 Other: # Voids 1 - Labs CBC & Chem 7: 03/21/24 06:20 03/21/24 06:20 Labs: Abnormal Lab Results - Last 24 Hours (Table) 03/21/24 03/21/24 03/21/24 Range/Units 06:20 06:20 06:20 RBC 2.95 L (4.30-5.90) m/uL Hgb 10.3 L (13.0-17.5) gm/dL Hct 31.8 L (39.0-53.0) % MCV 107.8 H (80.0-100.0) fL RDW 16.3 H (11.5-15.5) % Plt Count 84 L (150-450) k/uL Neutrophils # 8.1 H (1.3-7.7) k/uL Lymphocytes # 0.5 L (1.0-4.8) k/uL Macrocytosis Marked A APTT 32.1 H (22.0-30.0) sec Sodium 130 L (137-145) mmol/L Chloride 92 L (98-107) mmol/L BUN 36 H (9-20) mg/dL Creatinine 3.98 H (0.66-1.25) mg/dL Calcium 7.5 L (8.4-10.2) mg/dL Microbiology - Last 24 Hours (Table) 03/19/24 17:36 Gram Stain - Preliminary Knee - Right Wound Culture - Preliminary Presumptive Staph aureus 03/18/24 23:22 Blood Culture - Preliminary Blood Assessment and Plan Assessment: 1. End-stage renal disease maintained on hemodialysis on Friday schedule. 2. Right lower extremity cellulitis versus peripheral arterial disease. On antibiotics. CTA showed atherosclerotic calcifications and stenosis at the r ight SFA at mid thigh level. 3. Chronic kidney disease mineral bone disease maintained on PhosLo. Phosphorus level 6.0 dated March 19, 2024. 4. Chronic systolic CHF ejection fraction of less than 20% with aortic stenosis. 5. Anemia of chronic kidney disease. Plan: Continue HD TTS schedule. ABX per ID
--- NOTE | 2024-03-21 12:10 | P.PN ---
Subjective Progress Note Date: 03/21/24 Hospital Course: Patient is a 78-year-old male with a history of systolic CHF (EF 15% on echo 0 06/2023. Managed by Dr. Farah), hyperlipidemia, ESRD (status post kidney transplant x 2) on HD, MRSA infection (bactaremia), and severe aortic stenosis came in for right leg pain. Patient reported it began on Thursday 03/15 at his right lower leg area proximal to the ankle and was sore. His right lower leg then began to swell and become erythematous with tenderness throughout the day. He reported that it also started to spread upward towards his shins. On Friday during dialysis session, patient was advised by the chemistry teacher to seek care. Yesterday on 03/17 patient saw his PCP and right leg was placed in a medicated wrap. No improvement of symptoms led him to seek care at the emergency room. He denies fever, nausea and vomiting, sweats, dizziness, chest pain, claudications, shortness of breath, abdominal pain, recent travel, or sick contacts. Pain of the RLE is 10/10 at maximal intensity and at time of interview was rated at a 6/10. At the emergency room, Doppler ultrasound of right lower leg resulted negative for DVT. CT angio of the right lower extremity shows modified focal stenosis of right SFA and extends throughout the leg. EKG shows ventricular rhythm with a rate of 64 wide QRS QTc 475 MS. WBC 6.4, hemoglobin 10.3, platelets 70, sodium 137, potassium 137, chloride 94, BUN 33, creatinine 3.2, lactic acid 1.4, calcium 7.4, total bilirubin 1.6, alk phos 163, albumin 3.3, AST 46, ALT 29. On admission, patient was afebrile at 97.9 Fahrenheit pulse rate 59 respiratory rate 18 blood pressure 107/70 O2 saturation 100% at 2 L nasal cannula. Patient was started on IV vancomycin for right lower extremity cellulitis. Also being followed by ID, nephrology, vascular surgery. Subjective: Patient seen and examined at bedside. No acute events overnight. Pertinent positives and negatives as discussed above, a complete review of systems was performed and all other systems are negative. Vitals Signs Reviewed. General: [nontoxic], [no distress], [appears at stated age] Derm: [warm], [dry], right lower extremity over anterior olivares erythematous, warm, tender to palpation Head: [atraumatic], [normocephalic], [symmetric] Eyes: [EOMI], [no lid lag], [anicteric sclera] Mouth: [no lip lesion], [mucus membranes moist] Cardiovascular: [S1S2 reg], [systolic murmur] Lungs: [CTA bilateral], [no rhonchi, no rales] , [no accessory muscle use] Abdominal: [soft], [ nontender to palpation], [no guarding], [no appreciable organomegaly] Ext: [no gross muscle atrophy], [no edema], [no contractures] Neuro: [ CN II-XI grossly intact], [no focal neuro deficits] Psych: [Alert], [oriented], [appropriate affect] Data Reviewed Today: Pertinent Labs: WBC 9.4, hemoglobin 10.3, platelet 84, sodium 130, creatinine 3.98, Vanco random level 15.9 Imaging: No new imaging Assessment and Plan: #. Severe cellulitis of the right lower extremity Patient has erythma and swelling of affected leg with tenderness Continue home Percocet 1 mg every 12 hours as needed for pain - Continue vancomycin day #3 to dose per pharmacy, monitor Vanco troughs -Wound care and infectious disease following -blood culturespreliminary no growth -Prior history of MRSA infection #. Symptomatic peripheral artery disease of right lower extremity CT angio showed moderate focal stenosis of right superficial femoral artery that extends throughout leg -Aspirin 81 p.o. OD -Increase Lipitor 80 p.o. mg OD -C vascular surgery note reviewed, pending lower extremity arterial Dopplers, no acute interventions at the moment #. ESRD on hemodialysis TTS Hypervolemic hyponatremia -Continue PhosLo and D3 supplement -BMP, Mag, Phos at a.m. -nephrology note reviewed, no changes #. Systolic CHF not in exacerbation Ejection fraction 15% on echo 06/2023 -Bumex 4mg PO OD, metoprolol 25 Mg daily -Currently not on guideline directed medical therapy #. Anemia of chronic kidney disease - B12 803 and Folate levels Iron 55, TIBC 169, percent saturated 32%, transferrin 121, ferritin 1167 #. Thrombocytopenia due to ESRD Platelet count 71, at baseline -CBC at a.m. Chronic: #. Hyperlipidemiaas above #Goutallopurinol 100 mg daily #Parkinson'scontinue ropinirole 2 mg twice daily Depression-paroxetine 10 mg daily DVT prophylaxis: Heparin subq CODE STATUS: Full Discussed with: Patient Anticipated discharge place: Home Objective - Vital Signs Vital signs: Vital Signs Temp 98.1 F 03/21/24 08:00 Pulse 53 L 03/21/24 11:21 Resp 16 03/21/24 11:21 BP 100/57 03/21/24 11:21 Pulse Ox 97 03/21/24 11:21 FiO2 Intake & Output 03/20/24 03/21/24 03/21/24 18:59 06:59 18:59 Intake Total 1760 10 480 Output Total 4500 0 Balance -2740 10 480 Weight 63.5 kg Intake: IV 10 Invasive Line 1 10 Oral 1260 480 Hemodialysis 500 Output: Urine 0 0 Hemodialysis 2500 Hemodialysis Net Amount 2000 Other: # Voids 1 - Labs CBC & Chem 7: 03/21/24 06:20 03/21/24 06:20 Labs: Abnormal Lab Results - Last 24 Hours (Table) 03/21/24 03/21/24 03/21/24 Range/Units 06:20 06:20 06:20 RBC 2.95 L (4.30-5.90) m/uL Hgb 10.3 L (13.0-17.5) gm/dL Hct 31.8 L (39.0-53.0) % MCV 107.8 H (80.0-100.0) fL RDW 16.3 H (11.5-15.5) % Plt Count 84 L (150-450) k/uL Neutrophils # 8.1 H (1.3-7.7) k/uL Lymphocytes # 0.5 L (1.0-4.8) k/uL Macrocytosis Marked A APTT 32.1 H (22.0-30.0) sec Sodium 130 L (137-145) mmol/L Chloride 92 L (98-107) mmol/L BUN 36 H (9-20) mg/dL Creatinine 3.98 H (0.66-1.25) mg/dL Calcium 7.5 L (8.4-10.2) mg/dL Microbiology - Last 24 Hours (Table) 03/19/24 17:36 Gram Stain - Preliminary Knee - Right Wound Culture - Preliminary Presumptive Staph aureus 03/18/24 23:22 Blood Culture - Preliminary Blood
[2024-03-21] MEDS: VANCOMYCIN 1,250 MG in SODIUM CHLORIDE 0.9% 250 ML IVPB ONE (12:25)
--- NOTE | 2024-03-21 14:46 | US ---
EXAMINATION TYPE: US arterial LE single level DATE OF EXAM: 03/21/2024 2:13 PM CLINICAL INDICATION: Male, 78 years old with history of pad; PAD History of: Smoker: Previous Hypertension: yes Diabetic: no Hyperlipidemia: yes TIA/CVA: no Previous Vascular Surgery: no CAD: no ID: no Vascular Ulcers: yes Claudication: yes Gangrene: no Doppler Waveforms: Right: Monophasic Left: Monophasic Ankle-Brachial Indices: Right: NC Left: NC (Vessel hardening > 1.4; Normal 0.9 - 1.4, Moderate 0.7 - 0.9, Severe 0.5-0.7) Toe Brachial Indices: Right: 0.40 Left: 0.36 Unable to occlude at the ankles. IMPRESSION: 1. Limited examination with noncompressible vessels. 2. Very low ratios in the bilateral digital arteries suggest severe stenosis. [facility], Workstation: [facility], 03/21/2024 2:43 PM
--- NOTE | 2024-03-21 16:51 | P.PN ---
Subjective Progress Note Date: 03/21/24 Principal diagnosis: Reason for follow-up is right leg cellulitis Patient is a 78-year-old male with a past medical history significant for end-stage renal disease on dialysis previous history of failed renal transplant CVA aortic stenosis and this patient apparently has been dealing with a nonhealing wound on the right knee at the local wound care center now present ing to the hospital with increasing pain and swelling redness to the right lower leg patient has been diagnosed with a cellulitis started on vancomycin. On today's evaluation that is 03/21/2024,the patient remains to be afebrile, patient is on room air not requiring supplemental oxygen and denies any shortness of breath no chest pain or cough.Patient denies having any nausea or vomiting, no abdominal pain and no diarrhea has been reported, right lower extremity swelling redness slightly decreased. Patient white count is 9.4, creatinine is 3.98 culture growing present per Staph aureus Objective - Vital Signs Vital signs: Vital Signs Temp 98 F 03/21/24 15:55 Pulse 62 03/21/24 15:55 Resp 18 03/21/24 15:55 BP 112/67 03/21/24 15:55 Pulse Ox 96 03/21/24 15:55 FiO2 Intake & Output 03/20/24 03/21/24 03/21/24 18:59 06:59 18:59 Intake Total 1760 10 838 Output Total 4500 0 Balance -2740 10 838 Weight 63.5 kg Intake: IV 10 Invasive Line 1 10 Oral 1260 838 Hemodialysis 500 Output: Urine 0 0 Hemodialysis 2500 Hemodialysis Net Amount 2000 Other: # Voids 1 # Bowel Movements 1 - Exam GENERAL DESCRIPTION: An elderly male lying in bed in no distress RESPIRATORY SYSTEM: Unlabored breathing , decreased breath sounds at bases HEART: S1 S2 regular rate and rhythm , ABDOMEN: Soft , no tenderness EXTREMITIES: Right leg swelling redness slightly decreased - Labs CBC & Chem 7: 03/21/24 06:20 03/21/24 06:20 Labs: Abnormal Lab Results - Last 24 Hours (Table) 03/21/24 03/21/24 03/21/24 Range/Units 06:20 06:20 06:20 RBC 2.95 L (4.30-5.90) m/uL Hgb 10.3 L (13.0-17.5) gm/dL Hct 31.8 L (39.0-53.0) % MCV 107.8 H (80.0-100.0) fL RDW 16.3 H (11.5-15.5) % Plt Count 84 L (150-450) k/uL Neutrophils # 8.1 H (1.3-7.7) k/uL Lymphocytes # 0.5 L (1.0-4.8) k/uL Macrocytosis Marked A APTT 32.1 H (22.0-30.0) sec Sodium 130 L (137-145) mmol/L Chloride 92 L (98-107) mmol/L BUN 36 H (9-20) mg/dL Creatinine 3.98 H (0.66-1.25) mg/dL Calcium 7.5 L (8.4-10.2) mg/dL Microbiology - Last 24 Hours (Table) 03/19/24 17:36 Gram Stain - Preliminary Knee - Right Wound Culture - Preliminary Presumptive Staph aureus 03/18/24 23:22 Blood Culture - Preliminary Blood Assessment and Plan (1) Cellulitis of right leg Current Visit: Yes Status: Acute Code(s): L03.115 - CELLULITIS OF RIGHT LOWER LIMB SNOMED Code(s): 62658230300350079 Plan: 1patient presented to hospital during with increasing pain and redness of right lower extremity in this patient noted to have chronic nonhealing wound of the right knee area with a question of possible source for this cellulitis there was minimal purulent drainage which has been culture and will need to cover for the gram-positive skin vicente specially MRSA to be the likely pathogen 2-local culture currently growing Staph aureus sensitivities pending 3-patient right leg redness slightly decreased, to continue with vancomycin pharmacy to dose while waiting for the culture to finalize Dictation was produced using [employer] dictation software. please excuse any gramm atical, word or spelling errors. Time with Patient: Less than 30
[2024-03-22 06:26] LABS: Anisocytosis Slight; Basophils % (A) 0 %; Eosinophils # (A) 0.2 k/uL (0-0.7); Eosinophils % (A) 2 %; HCT 33.4 % (39.0-53.0); HGB 10.6 gm/dL (13.0-17.5); Hypochromasia Slight; Lymphocytes # (A) 0.5 k/uL (1.0-4.8); Lymphocytes % (A) 5 %; MCH 34.6 pg (25.0-35.0); MCHC 31.9 g/dL (31.0-37.0); Macrocytosis Marked; Mean Platelet Volume 10.4; Monocytes # (A) 0.5 k/uL (0-1.0); Monocytes % (A) 5 %; Neutrophils % (A) 86 %; Platelet Count 100 k/uL (150-450); RBC 3.07 m/uL (4.30-5.90); RDW 16.5 % (11.5-15.5); WBC 9.3 k/uL (3.8-10.6)
[2024-03-22 06:31] LABS: MCV 108.5 fL (80.0-100.0)
[2024-03-22 06:41] LABS: INR 1.1 (<1.2); Prothrombin Time 11.5 sec (10.0-12.5)
[2024-03-22 06:42] LABS: African American GFR (CKD) 10 (>60 ml/min/1.73 sqM); Anion Gap 11 mmol/L; Blood Urea Nitrogen 55 mg/dL (9-20); Calcium 7.4 mg/dL (8.4-10.2); Carbon Dioxide 26 mmol/L (22-30); Chloride 91 mmol/L (98-107); Glucose 75 mg/dL (74-99); Non-African American GFR(CKD) 8 (>60 ml/min/1.73 sqM); Potassium 4.7 mmol/L (3.5-5.1); Sodium 128 mmol/L (137-145)
[2024-03-22 07:27] VITALS: RESP 16
--- NOTE | 2024-03-22 10:24 | P.PN ---
Subjective Progress Note Date: 03/22/24 Principal diagnosis: Lower extremity peripheral arterial disease Patient is seen and examined today as a follow-up. He is being treated for right lower extremity cellulitis. He denies any pain in his right leg unless you are touching it over the affected cellulitis area. He does have swelling of his right lower extremity and foot. Currently on IV vancomycin awaiting cultur es. Arterial ultrasound reviewed with adequate waveforms. Objective - Vital Signs Vital signs: Vital Signs Temp 97.6 F 03/22/24 07:26 Pulse 57 L 03/22/24 07:26 Resp 16 03/22/24 07:26 BP 116/76 03/22/24 07:26 Pulse Ox 98 03/22/24 07:26 FiO2 Intake & Output 03/21/24 03/22/24 03/22/24 18:59 06:59 18:59 Intake Total 956 Output Total 0 Balance 956 Weight 69 kg Intake: Oral 956 Output: Urine 0 Other: Voiding Method Urinal # Voids 0 # Bowel Movements 1 0 - Exam General appearance: The patient is alert, oriented, appears in no acute distress. HET: Head is normocephalic and atraumatic. Pupils are equal and reactive. Neck: Supple. Abdomen: Soft, nondistended. Extremities: Right lower extremity erythema over olivares. Tender to palpation. Right lower extremity edema. Sensorimotor intact. Neurological: No focal deficits. Strength and sensation are grossly intact. - Labs CBC & Chem 7: 03/22/24 05:56 03/22/24 05:56 Labs: Abnormal Lab Results - Last 24 Hours (Table) 03/21/24 03/22/24 03/22/24 Range/Units 06:20 05:56 05:56 RBC 3.07 L (4.30-5.90) m/uL Hgb 10.6 L (13.0-17.5) gm/dL Hct 33.4 L (39.0-53.0) % MCV 108.5 H (80.0-100.0) fL RDW 16.5 H (11.5-15.5) % Plt Count 84 L 100 L (150-450) k/uL Neutrophils # 8.1 H 8.0 H (1.3-7.7) k/uL Lymphocytes # 0.5 L 0.5 L (1.0-4.8) k/uL Macrocytosis Marked A APTT 33.0 H (22.0-30.0) sec Sodium (137-145) mmol/L Chloride (98-107) mmol/L BUN (9-20) mg/dL Creatinine (0.66-1.25) mg/dL Calcium (8.4-10.2) mg/dL 03/22/24 Range/Units 05:56 RBC (4.30-5.90) m/uL Hgb (13.0-17.5) gm/dL Hct (39.0-53.0) % MCV (80.0-100.0) fL RDW (11.5-15.5) % Plt Count (150-450) k/uL Neutrophils # (1.3-7.7) k/uL Lymphocytes # (1.0-4.8) k/uL Macrocytosis APTT (22.0-30.0) sec Sodium 128 L (137-145) mmol/L Chloride 91 L (98-107) mmol/L BUN 55 H (9-20) mg/dL Creatinine 5.83 H (0.66-1.25) mg/dL Calcium 7.4 L (8.4-10.2) mg/dL Microbiology - Last 24 Hours (Table) 03/18/24 23:22 Blood Culture - Preliminary Blood 03/19/24 17:36 Gram Stain - Preliminary Knee - Right Wound Culture - Preliminary Presumptive Staph aureus Assessment and Plan Assessment: Right lower extremity cellulitis Right lower extremity peripheral vascular disease Diabetes mellitus End-stage renal disease Plan: Arterial duplex ordered for waveforms. Does have some diabetic peripheral arterial disease in the right lower extremity however compared to patient's recent ultrasound in the office there is not much change. There is no indication for any urgent vascular surgical intervention. Patient to follow-up with Dr. Lundberg as previously scheduled, unless pain does not improve once cellulitis is resolved he certainly can schedule an earlier appointment. Thank you for this consultation, vascular surgery will sign off at this time. The impression and plan of care has been dictated as directed. I performed a history and examination of this patient, discussed the same with the dictator. I agree with the dictator's note ,documented as a scribe. Any additional findings or plans will be noted.
--- NOTE | 2024-03-22 12:00 | P.DS ---
Providers Date of admission: 03/18/24 17:43 Expected date of discharge: 03/22/24 Attending physician: Clare Nelson MD Consults: 03/18/24 18:18 Consult Physician Urgent Consulting Provider: Raymundo Garcia Consult Reason/Comments: ESRD on hemodialysis Do you want consulting provider notified?: Yes 03/18/24 22:33 Consult Physician Routine Consulting Provider: Carlos Wiley Consult Reason/Comments: cellulitis of right lower extremity Do you want consulting provider notified?: Yes 03/19/24 16:48 Consult Physician Routine Consulting Provider: Tj Lundberg Consult Reason/Comments: severe symptomatic LE PAD Do you want consulting provider notified?: Yes Primary care physician: Fransisco Pereira Hospital Course: Discharge Diagnosis: Right lower extremity cellulitis Symptomatic peripheral arterial disease of right lower extremity ESRD on hemodialysis TTS CHF, systolic, not in exacerbation Anemia of chronic disease Thrombocytopenia Dyslipidemia Gout Parkinson's Depression Hospital Course: Patient is a 78-year-old male with a history of systolic CHF (EF 15% on echo 06/2023. Managed by Dr. Farah), hyperlipidemia, ESRD (status post kidney transplant x 2) on HD, MRSA infection (bactaremia), and severe aortic stenosis came in for right leg pain. Patient reported it began on Thursday 03/15 at his right lower leg area proximal to the ankle and was sore. His right lower leg then began to swell and become erythematous with tenderness throughout the day. He reported that it also started to spread upward towards his shins. On Friday during dialysis session, patient was advised by the batch and furnace operator to seek care. Yesterday on 03/17 patient saw his PCP and right leg was placed in a medicated wrap. No improvement of symptoms led him to seek care at the emergency room. He denies fever, nausea and vomiting, sweats, dizziness, chest pain, claudications, shortness of breath, abdominal pain, recent travel, or sick contacts. Pain of the RLE is 10/10 at maximal intensity and at time of interview was rated at a 6/10. At the emergency room, Doppler ultrasound of right lower leg resulted negative for DVT. CT angio of the right lower extremity shows modified focal stenosis of right SFA and extends throughout the leg. EKG shows ventricular rhythm with a rate of 64 wide QRS QTc 475 MS. WBC 6.4, hemoglobin 10.3, platelets 70, sodium 137, potassium 137, chloride 94, BUN 33, creatinine 3.2, lactic acid 1.4, calcium 7.4, total bilirubin 1.6, alk phos 163, albumin 3.3, AST 46, ALT 29. On admission, patient was afebrile at 97.9 Fahrenheit pulse rate 59 respiratory rate 18 blood pressure 107/70 O2 saturation 100% at 2 L nasal cannula. Patient was started on IV vancomycin for right lower extremity cellulitis. Also being followed by ID, nephrology, vascular surgery. Vascular surgery did not recommend any acute interventions. Outpatient follow-up. Cultures came back positive for MRSA. Patient to receive 2 weeks of IV vancomycin with dialysis. Follow-up outpatient with PCP. Patient seen and examined at bedside. Vital signs reviewed and stable. General: Nontoxic, no distress, appears at stated age Derm: Warm, dry, right lower extremity erythema over anterior olivares, improved. Head: Atraumatic, normocephalic, symmetric Eyes: EOMI, no lid lag, anicteric sclera Mouth: No lip lesion, mucus membranes moist Cardiovascular: S1S2 reg, no murmur Lungs: CTA bilateral, no rhonchi, no rales, no accessory muscle use Abdominal: Soft, nontender to palpation, no guarding, no appreciable organomegaly Ext: No gross muscle atrophy, no edema, no contractures Neuro: CN II-XI grossly intact, no focal neuro deficits Psych: Alert, oriented, appropriate affect A total of 36 minutes of time were spent preparing this complex discharge summary. Patient was discharged on 03/22/2024 at 1158. Patient Condition at Discharge: Stable Plan - Discharge Summary Discharge Rx Participant: No New Discharge Prescriptions: New Aspirin 81 mg PO DAILY #60 tab Atorvastatin [Lipitor] 80 mg PO HS #60 tab Vancomycin See Rx Instructions .ROUTE .COMPLEX 14 Days each Continue Bumetanide [BUMEX] 4 mg PO DAILY oxyCODONE-APAP 5-325MG [Percocet 5-325 mg] 1 - 1.5 tab PO TID PRN PRN Reason: Pain PARoxetine [Paxil] 10 mg PO DAILY Cholecalciferol (Vitamin D3) [Vitamin D3 (50 Mcg = 2000 Iu)] 50 mcg PO DAILY [place]-3/Dha/Epa/Fish Oil [Fish Oil 1,000 mg Softgel] 1 cap PO DAILY Isosorbide Mononitrate ER [Imdur] 30 mg PO DAILY rOPINIRole HCL [Requip] 2 mg PO BID Metoprolol Succinate (ER) [Toprol XL] 25 mg PO DAILY #30 tab Calcium Acetate [PhosLo] 1,334 mg PO TID-W/MEALS allopurinoL [Zyloprim] 100 mg PO DAILY Midodrine [ProAmatine] 5 mg PO AC-BID PRN PRN Reason: Hypotension Lidocaine 5% Oint [Xylocaine 5% Oint] 1 applic TOPICAL DIRECTED PRN PRN Reason: PRIOR TO DIALYSIS Carboxymethylcellulose Sodium [Refresh Tears] 1 drop BOTH EYES TID Discontinued Atorvastatin [Lipitor] 10 mg PO HS Cephalexin [Keflex] 500 mg PO QID Discharge Medication List [place]-3/Dha/Epa/Fish Oil [Fish Oil 1,000 mg Softgel] 1 cap PO DAILY 01/29/22 [History] Isosorbide Mononitrate ER [Imdur] 30 mg PO DAILY 01/30/22 [History] rOPINIRole HCL [Requip] 2 mg PO BID 05/01/22 [History] Metoprolol Succinate (ER) [Toprol XL] 25 mg PO DAILY #30 tab 06/26/22 [Rx] Bumetanide [BUMEX] 4 mg PO DAILY 08/16/22 [History] Calcium Acetate [PhosLo] 1,334 mg PO TID-W/MEALS 08/16/22 [History] allopurinoL [Zyloprim] 100 mg PO DAILY 02/12/23 [History] oxyCODONE-APAP 5-325MG [Percocet 5-325 mg] 1 - 1.5 tab PO TID PRN 02/12/23 [History] Midodrine [ProAmatine] 5 mg PO AC-BID PRN 09/25/23 [History] Carboxymethylcellulose Sodium [Refresh Tears] 1 drop BOTH EYES TID 03/19/24 [History] Cholecalciferol (Vitamin D3) [Vitamin D3 (50 Mcg = 2000 Iu)] 50 mcg PO DAILY 05/02 [History] Lidocaine 5% Oint [Xylocaine 5% Oint] 1 applic TOPICAL DIRECTED PRN 03/19/24 [History] PARoxetine [Paxil] 10 mg PO DAILY 03/19/24 [History] Aspirin 81 mg PO DAILY #60 tab 03/22/24 [Rx] Atorvastatin [Lipitor] 80 mg PO HS #60 tab 03/22/24 [Rx] Vancomycin See Rx Instructions .ROUTE .COMPLEX 14 Days each 03/22/24 [Rx] Follow up Appointment(s)/Referral(s): Fransisco Pereira MD [Primary Care Provider] - 1-2 days Tj Lundberg DO [STAFF PHYSICIAN] - 1 Week [facility], [NON-STAFF] - Patient Instructions/Handouts: Cellulitis (GEN), Peripheral Vascular Disease (DC) Activity/Diet/Wound Care/Special Instructions: Please see your PCP, and vascular surgeon Discharge/Stand Alone Forms: Who Do I Call? Discharge Disposition: HOME WITH HOME HEALTH SERVICES
--- NOTE | 2024-03-22 12:43 | P.PN ---
Subjective Progress Note Date: 03/22/24 Principal diagnosis: Reason for follow-up is right leg cellulitis Patient is a 78-year-old male with a past medical history significant for end-stage renal disease on dialysis previous history of failed renal transplant CVA aortic stenosis and this patient apparently has been dealing with a nonhealing wound on the right knee at the local wound care center now present ing to the hospital with increasing pain and swelling redness to the right lower leg patient has been diagnosed with a cellulitis started on vancomycin. On today's evaluation that is 03/22/2024, the patient continues to be afebrile, the patient is on room air and breathing comfortably, the Pt denies having any chest pain or cough, the patient denies having any abdominal pain no vomiting or any diarrhea pain to the right lower extremity has decreased in intensity. Patient white count is 9.3, creatinine is 5.83 local culture finalized with MRSA blood culture has been negative Objective - Vital Signs Vital signs: Vital Signs Temp 97.6 F 03/22/24 07:26 Pulse 57 L 03/22/24 07:26 Resp 16 03/22/24 07:26 BP 116/76 03/22/24 07:26 Pulse Ox 98 03/22/24 07:26 FiO2 Intake & Output 03/21/24 03/22/24 03/22/24 18:59 06:59 18:59 Intake Total 956 Output Total 0 Balance 956 Weight 69 kg Intake: Oral 956 Output: Urine 0 Other: Voiding Method Urinal # Voids 0 # Bowel Movements 1 0 - Exam GENERAL DESCRIPTION: An elderly male lying in bed in no distress RESPIRATORY SYSTEM: Unlabored breathing , decreased breath sounds at bases HEART: S1 S2 regular rate and rhythm , ABDOMEN: Soft , no tenderness EXTREMITIES: Right leg swelling redness slightly decreased - Labs CBC & Chem 7: 03/22/24 05:56 03/22/24 05:56 Labs: Abnormal Lab Results - Last 24 Hours (Table) 03/22/24 03/22/24 03/22/24 Range/Units 05:56 05:56 05:56 RBC 3.07 L (4.30-5.90) m/uL Hgb 10.6 L (13.0-17.5) gm/dL Hct 33.4 L (39.0-53.0) % MCV 108.5 H (80.0-100.0) fL RDW 16.5 H (11.5-15.5) % Plt Count 100 L (150-450) k/uL Neutrophils # 8.0 H (1.3-7.7) k/uL Lymphocytes # 0.5 L (1.0-4.8) k/uL Macrocytosis Marked A APTT 33.0 H (22.0-30.0) sec Sodium 128 L (137-145) mmol/L Chloride 91 L (98-107) mmol/L BUN 55 H (9-20) mg/dL Creatinine 5.83 H (0.66-1.25) mg/dL Calcium 7.4 L (8.4-10.2) mg/dL Microbiology - Last 24 Hours (Table) 03/18/24 23:22 Blood Culture - Preliminary Blood 03/19/24 17:36 Gram Stain - Preliminary Knee - Right Wound Culture - Preliminary Presumptive Staph aureus Assessment and Plan (1) Cellulitis of right leg Current Visit: Yes Status: Acute Code(s): L03.115 - CELLULITIS OF RIGHT L OWER LIMB SNOMED Code(s): 98413916913638963 Plan: 1patient presented to hospital during with increasing pain and redness of right lower extremity in this patient noted to have chronic nonhealing wound of the right knee area with a question of possible source for this cellulitis there was minimal purulent drainage which has been culture and will need to cover for the gram-positive skin vicente specially MRSA to be the likely pathogen 2-local culture currently growing MRSA blood culture has been negative 3-patient advised to continue with vancomycin pharmacy to dose through dialysis for 2 weeks with close outpatient follow-up discussed with the admitting physician who is working on discharge Dictation was produced using Stereotypesation software. please excuse any grammatical, word or spelling errors. Time with Patient: Less than 30
[2024-03-22 12:48] VITALS: BP 97/52; PULSE 91; TEMP 98
--- NOTE | 2024-03-22 19:19 | P.PN ---
Subjective Patient is seen for follow-up for end-stage renal disease. He is being discharged with plans for outpatient IV antibiotics. Objective - Vital Signs Vital signs: Vital Signs Temp 98 F 03/22/24 12:00 Pulse 91 03/22/24 12:00 Resp 16 03/22/24 12:00 BP 97/52 03/22/24 12:00 Pulse Ox 94 L 03/22/24 12:00 FiO2 Intake & Output 03/22/24 03/22/24 03/23/24 06:59 18:59 06:59 Intake Total 240 Balance 240 Weight 69 kg Intake: Oral 240 Other: Voiding Method Urinal Urinal # Voids 0 # Bowel Movements 0 - Exam Patient is awake, comfortable, no acute distress. Examination reveals 1+ edema bilateral legs. Chronic skin changes noted. LIBRARY HISTORIAN exam grossly intact. - Labs CBC & Chem 7: 03/22/24 05:56 03/22/24 05:56 Labs: Abnormal Lab Results - Last 24 Hours (Table) 03/19/24 03/22/24 03/22/24 Range/Units 06:31 05:56 05:56 RBC 3.07 L (4.30-5.90) m/uL Hgb 10.6 L (13.0-17.5) gm/dL Hct 33.4 L (39.0-53.0) % MCV 108.5 H (80.0-100.0) fL RDW 16.5 H (11.5-15.5) % Plt Count 100 L (150-450) k/uL Neutrophils # 8.0 H (1.3-7.7) k/uL Lymphocytes # 0.5 L (1.0-4.8) k/uL Macrocytosis Marked A APTT 33.0 H (22.0-30.0) sec Sodium (137-145) mmol/L Chloride (98-107) mmol/L BUN (9-20) mg/dL Creatinine (0.66-1.25) mg/dL Calcium (8.4-10.2) mg/dL RBC Folate 854 H (280 - 791) ng/mL 03/22/24 Range/Units 05:56 RBC (4.30-5.90) m/uL Hgb (13.0-17.5) gm/dL Hct (39.0-53.0) % MCV (80.0-100.0) fL RDW (11.5-15.5) % Plt Count (150-450) k/uL Neutrophils # (1.3-7.7) k/uL Lymphocytes # (1.0-4.8) k/uL Macrocytosis APTT (22.0-30.0) sec Sodium 128 L (137-145) mmol/L Chloride 91 L (98-107) mmol/L BUN 55 H (9-20) mg/dL Creatinine 5.83 H (0.66-1.25) mg/dL Calcium 7.4 L (8.4-10.2) mg/dL RBC Folate (280 - 791) ng/mL Microbiology - Last 24 Hours (Table) 03/19/24 17:36 Anaerobic Culture - Preliminary Knee - Right 03/19/24 17:36 Gram Stain - Final Knee - Right Wound Culture - Final Methicillin resist S. aureus 03/18/24 23:22 Blood Culture - Preliminary Blood Assessment and Plan Assessment: 1. End-stage renal disease maintained on hemodialysis on Friday schedule. 2. Right lower extremity cellulitis versus peripheral arterial disease. On antibiotics. CTA showed atherosclerotic calcifications and stenosis at the right SFA at mid thigh level. 3. Chronic kidney disease mineral bone disease maintained on PhosLo. Phosphorus level 6.0 dated March 19, 2024. 4. Chronic systolic CHF ejection fraction of less than 20% with aortic stenosis. 5. Anemia of chronic kidney disease. Plan: Hemodialysis in a.m. If patient is discharged he will follow-up for dialysis as outpatient tomorrow. Continue vancomycin with dialysis as outpatient.
--- NOTE | 2024-04-05 16:35 | CDI ---
Documentation Clarification Form Date: 04.05.2024 From: VIKTORIYA Prado Admit Date: 03/18/2024 05:43:00 PM Patient Name: John Benedict Visit Number: [id number] Discharge Date: 03/22/2024 04:12:00 PM ATTENTION: The Clinical Documentation Specialists (CDI) and [facility] Coding Staff appreciate your assistance in clarifying documentation. Please respond to the clarification below the line at the bottom and electronically sign. The CDI & [facility] Coding staff will review the response and follow-up if needed. Please note: Queries are made part of the Legal Health Record. If you have any questions, please contact the author of this message via ITS. Doctor/Provider: Miguel Ferrara MD Cellulitis of the right lower extremity is documented throughout the H&P, progress notes, consults and discharge summary. Additional clarification regarding the type of cellulitis is requested. History/risk factors: He was seen by his PCP who told him he had cellulitis and placed him on an antibiotic. Clinical Indicators: Cellulitis of the right lower extremity. Patient has erythma and swelling of affected leg with tenderness Treatment: Vancomycin Please clarify the etiology of the cellulitis, if known: [ ] Cellulitis is a diabetic skin complication [ x ] Cellulitis is not a diabetic skin complication [ ] Other, please specify: [ ] Unable to determine MTDD
== END 2024-03-22 16:12 | disposition home health service (06) | DRG 602 ==
LOC: EC 10:55 → 3SCARD 17:43 → 5NMEDONC 03-22 05:00
PROVIDERS: ADMIT Internal Medicine; ATTEND Internal Medicine
PROC: 5A1D70Z Performance of Urinary Filtration, Intermittent, Less than 6 Hours Per Day (ICD-10-PCS; principal; 2024-03-20)
DX: L03.115 Cellulitis of right lower limb (principal); N18.6 End stage renal disease; E87.1 Hypo-osmolality and hyponatremia; I50.22 Chronic systolic (congestive) heart failure; T86.12 Kidney transplant failure; E11.51 Type 2 diabetes mellitus with diabetic peripheral angiopathy without gangrene; D63.1 Anemia in chronic kidney disease; E11.22 Type 2 diabetes mellitus with diabetic chronic kidney disease; D69.59 Other secondary thrombocytopenia; E78.5 Hyperlipidemia, unspecified; F32.A Depression, unspecified; G20.A1 Parkinson's disease without dyskinesia, without mention of fluctuations; I35.0 Nonrheumatic aortic (valve) stenosis; I70.201 Unspecified atherosclerosis of native arteries of extremities, right leg; Y83.0 Surgical operation with transplant of whole organ as the cause of abnormal reaction of the patient, or of later complication, without mention of misadventure at the time of the procedure; M10.9 Gout, unspecified; M89.8X9 Other specified disorders of bone, unspecified site; Z79.82 Long term (current) use of aspirin; Z79.899 Other long term (current) drug therapy; Z86.73 Personal history of transient ischemic attack (TIA), and cerebral infarction without residual deficits; Z87.891 Personal history of nicotine dependence; Z99.2 Dependence on renal dialysis
CPT/HCPCS: 36415; 80048; 80053; 80202; 82607; 82728; 82747; 83540; 83550; 83605; 83735; 84100; 84443; 85025; 85610; 85730; 87040; 87070; 87075; 87077; 87186; 87205; 90935; 93005; 93922; 99285

== ENCOUNTER 2024-04-27 12:07 | Inpatient (IN) | payer OTHER, MEDICARE ==
--- NOTE | 2024-04-27 12:53 | ED ---
Altered Mental Status HPI - General Chief Complaint: Altered Mental Status Stated Complaint: infection R leg/infection L side face/dizzy/lethar Time Seen by Provider: 04/27/24 12:18 Source: patient, family, RN notes reviewed, old records reviewed Mode of arrival: wheelchair Limitations: altered mental status, physical limitation - History of Present Illness Initial Comments: This is an 78-year-old male to the ER for evaluation presenting today for michael luation of weakness lethargy decreased responsiveness, patient presents from dialysis, was significantly more lethargic throughout the day and this morning when he woke up. Patient is a poor historian but has no complaints of pain, brought in by daughter MD Complaint: altered mental status, confusion, decreased responsiveness, weakness -: hour(s) Severity: moderate Consistency of Symptoms: getting worse Context: history of similar presentation Associated Symptoms: weakness - Related Data Home Medications Medication Instructions Recorded Confirmed [place]-3/Dha/Epa/Fish Oil [Fish Oil 1 cap PO DAILY 01/29/22 04/27/24 1,000 mg Softgel] rOPINIRole HCL [Requip] 2 mg PO BID 05/01/22 04/27/24 Bumetanide [BUMEX] 4 mg PO DAILY 08/16/22 04/27/24 Calcium Acetate [PhosLo] 1,334 mg PO TID-W/MEALS 08/16/22 04/27/24 allopurinoL [Zyloprim] 100 mg PO DAILY 02/12/23 04/27/24 oxyCODONE-APAP 5-325MG [Percocet 1 - 1.5 tab PO TID PRN 02/12/23 04/27/24 5-325 mg] Midodrine [ProAmatine] 5 mg PO AC-BID PRN 09/25/23 04/27/24 Carboxymethylcellulose Sodium 1 drop BOTH EYES TID 03/19/24 04/27/24 [Refresh Tears] Cholecalciferol (Vitamin D3) 50 mcg PO DAILY 03/19/24 04/27/24 [Vitamin D3 (50 Mcg = 2000 Iu)] Lidocaine 5% Oint [Xylocaine 5% 1 applic TOPICAL DIRECTED PRN 03/19/24 04/27/24 Oint] PARoxetine [Paxil] 10 mg PO DAILY 03/19/24 04/27/24 Previous Rx's Medication Instructions Recorded Aspirin 81 mg PO DAILY #60 tab 03/22/24 Atorvastatin [Lipitor] 80 mg PO HS #60 tab 03/22/24 Metoprolol Succinate (ER) [Toprol 12.5 mg PO DAILY #30 tab 05/03/24 XL] Allergies Allergy/AdvReac Type Severity Reaction Status Date / Time losartan Allergy Intermediate Swelling Verified 04/27/24 12:47 Aminoglycosides Allergy Unknown Unknown Verified 04/27/24 12:47 REINIER Inhibitors Allergy Unknown Verified 04/27/24 12:47 enalapril Allergy Swelling Verified 04/27/24 12:47 enalaprilat [From Vasotec] Allergy Swelling Verified 04/27/24 12:47 ibuprofen Allergy Unknown Verified 04/27/24 12:47 lisinopril Allergy Swelling Verified 04/27/24 12:47 vancomycin Allergy Unknown Verified 04/27/24 12:47 vitamin A Allergy Unknown Verified 04/27/24 12:47 gabapentin AdvReac Hallucinati Verified 04/27/24 12:47 ons/Nightma res Review of Systems ROS Statement: Those systems with pertinent positive or pertinent negative responses have been documented in the HPI. ROS Other: All systems not noted in ROS Statement are negative. 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%, history of renal transplant and 2 in 1992 from a donor and in 1995 from a living donor, history of neck fracture, history of Covid 19 infection, severe aortic stenosis, anemia of chronic disease neuropathy, dialysis Friday History of Any Multi-Drug Resistant Organisms: MRSA Date of last positivie culture/infection: 03/19/24 MDRO Source:: rt knee, blood Past Surgical History: Appendectomy Additional Past Surgical History / Comment(s): Kidney transplant in 07/28/1992 and 1995 and 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 Father Family Medical History: CVA/TIA Additional Family Medical History / Comment(s): of stroke. General Exam Limitations: altered mental status General appearance: alert, lethargic, in distress Head exam: Present: atraumatic, normocephalic, normal inspection Eye exam: Present: normal appearance, PERRL, EOMI. Absent: scleral icterus, conjunctival injection, periorbital swelling ENT exam: Present: normal exam, mucous membranes moist Neck exam: Present: normal inspection. Absent: tenderness, meningismus, lymphadenopathy Respiratory exam: Present: normal lung sounds bilaterally. Absent: respiratory distress, wheezes, rales, rhonchi, stridor Cardiovascular Exam: Present: regular rate, normal rhythm, normal heart sounds. Absent: systolic murmur, diastolic murmur, rubs, gallop, clicks GI/Abdominal exam: Present: soft, normal bowel sounds. Absent: distended, tenderness, guarding, rebound, rigid Extremities exam: Present: normal inspection, full ROM, normal capillary refill. Absent: tenderness, pedal edema, joint swelling, calf tenderness Back exam: Present: normal inspection Neurological exam: Present: alert, oriented X3, CN II-XII intact Psychiatric exam: Present: normal affect, normal mood Skin exam: Present: warm, dry, intact, normal color. Absent: rash Course Vital Signs 04/27/24 04/27/24 04/27/24 12:11 12:40 14:16 Temperature 97.8 F Pulse Rate 61 57 L 62 Respiratory 18 20 20 Rate Blood Pressure 108/44 94/69 93/57 O2 Sat by Pulse 92 L 99 99 Oximetry 04/27/24 04/27/24 04/27/24 14:56 16:48 16:58 Temperature 98.3 F Pulse Rate 65 55 L 55 L Respiratory 20 18 18 Rate Blood Pressure 90/50 100/50 O2 Sat by Pulse 98 98 98 Oximetry 04/27/24 04/27/24 04/27/24 17:06 17:16 17:26 Temperature 98.2 F 98.3 F 98.2 F Pulse Rate 58 L 54 L 54 L Respiratory 18 14 16 Rate Blood Pressure 103/52 106/50 107/52 O2 Sat by Pulse 100 100 100 Oximetry 04/27/24 04/27/24 04/27/24 18:00 18:30 19:07 Temperature 98.2 F 98.3 F Pulse Rate 54 L 53 L 60 Respiratory 12 12 12 Rate Blood Pressure 111/57 118/60 118/65 O2 Sat by Pulse 100 100 100 Oximetry 04/27/24 04/27/24 04/27/24 21:28 22:21 23:00 Temperature Pulse Rate 57 L 58 L 57 L Respiratory 16 18 14 Rate Blood Pressure 109/57 119/39 113/64 O2 Sat by Pulse 100 100 100 Oximetry 04/28/24 04/28/24 04/28/24 00:00 01:00 02:00 Temperature Pulse Rate 55 L 60 52 L Respiratory 18 12 12 Rate Blood Pressure 106/50 107/64 107/55 O2 Sat by Pulse 100 100 Oximetry 04/28/24 04/28/24 04/28/24 03:00 04:00 05:00 Temperature Pulse Rate 58 L 59 L 60 Respiratory 12 13 15 Rate Blood Pressure 106/73 114/59 109/61 O2 Sat by Pulse 100 Oximetry 04/28/24 04/28/24 04/28/24 06:00 08:12 10:08 Temperature 98.4 F Pulse Rate 60 62 55 L Respiratory 15 20 20 Rate Blood Pressure 115/60 117/56 107/62 O2 Sat by Pulse 100 100 Oximetry - Reevaluation(s) Reevaluation #1: 04/27/24 12:52 Medical records reviewed Reevaluation #2: 04/27/24 14:46 Patient showing no signs of improvement here in the ER Reevaluation #3: 04/27/24 14:46 Per family at bedside informed of results Reevaluation #4: Was pt. sent in by a medical professional or institution (, PA, PREFLIGHT INSPECTOR, urgent care, hospital, or longterm...) When possible be specific @ -no Did you speak to anyone other than the patient for history (EMS, parent, family, police, friend...)? What history was obtained from this source @ -no Did you review nursing and triage notes (agree or disagree)? Why? @ -agree Are old charts reviewed (outside hosp., previous admission, EMS record, old EKG, old radiological studies, urgent care reports/EKG's, longterm records)? Report findings @ -yes Differential Diagnosis (chest pain, altered mental status, abdominal pain women, abdominal pain men, vaginal bleeding, weakness, fever, dyspnea, syncope, headache, dizziness, GI bleed, back pain, seizure, CVA, palpatations, mental health, musculoskeletal)? @ -prior EKG interpreted by me (3pts min.). @ -yes X-rays interpreted by me (1pt min.). @ -yes negative for acute disease CT interpreted by me (1pt min.). @ -no U/S interpreted by me (1pt. min.). @ -no What testing was considered but not performed or refused? (CT, X-rays, U/S, labs)? Why? @ -none What meds were considered but not given or refused? Why? @ -none Did you discuss the management of the patient with other professionals (professionals i.e. DrChayo, PA, PREFLIGHT INSPECTOR, lab, RT, psych nurse, medical social consultant, dining room busser, teacher, employment security officer, correctional casework specialist)? Give summary @ -no Was smoking cessation discussed for >3mins.? @ -no Was critical care preformed (if so, how long)? @ -yes31 Were there social determinants of health that impacted care today? How? (Homelessness, low income, unemployed, alcoholism, drug addiction, transportation, low edu. Level, literacy, decrease access to med. care, senior living, rehab)? @ -none Was there de-escalation of care discussed even if they declined (Discuss DNR or withdrawal of care, Hospice)? DNR status @ -no What co-morbidities impacted this encounter? (DM, HTN, Smoking, COPD, CAD, Cancer, CVA, ARF, Chemo, Hep., AIDS, mental health diagnosis, sleep apnea, morbid obesity)? @ -none Was patient admitted / discharged? Hospital course, mention meds given and route, prescriptions, significant lab abnormalities, going to OR and other pertinent info. @ - 78 male to ER for weakness decreased responsiveness especially after dialysis today. Patient is found to be significantly anemic and will admit for further observation Admit Undiagnosed new problem with uncertain prognosis? @ -no Drug Therapy requiring intensive monitoring for toxicity (Heparin, Nitro, Insulin, Cardizem)? @ -no Were any procedures done? @ -no Diagnosis/symptom? @ -Altered mental status weakness and decreased responsiveness Acute, or Chronic, or Acute on Chronic? @ -Acute Uncomplicated (without systemic symptoms) or Complicated (systemic symptoms)? @ -Complicated Side effects of treatment? @ -no Exacerbation, Progression, or Severe Exacerbation? @ -exacerbation Poses a threat to life or bodily function? How? (Chest pain, USA, CO, pneumonia, PE, COPD, DKA, ARF, appy, cholecystitis, CVA, Diverticulitis, Homicidal, Suicidal, threat to staff... and all critical care pts) @ -yes extremes of age Reevaluation #5: Differential Weakness: Hypoglycemia, shock, sepsis, hyponatremia, anemia, infection, CO, ETOH, adverse medicine reaction, overdose, stroke, this is not meant to be an all-inclusive list. Differential Altered Mental Status: Hypoglycemia, DKA, hypercapnia, ETOH, overdose, CO poisoning, trauma, myxedema coma, HTN encephalopathy, infection, encephalitis, psychosis, intercranial hemorrhage, hepatic encephalopathy, meningitis, CVA, this is not meant to be an all-inclusive list - Consultations Consultation #1: Spoke with sound to admit this patient Medical Decision Making - Medical Decision Making 78 male to ER for weakness decreased responsiveness especially after dialysis today. Patient is found to be significantly anemic and will admit for further observation - Lab Data Result diagrams: 05/03/24 07:20 05/03/24 07:20 Lab Results 04/27/24 04/27/24 04/27/24 Range/Units 12:19 12:19 12:19 WBC 6.2 (3.8-10.6) k/uL RBC 2.13 L (4.30-5.90) m/uL Hgb 7.4 L D (13.0-17.5) gm/dL Hct 23.0 L (39.0-53.0) % MCV 107.8 H (80.0-100.0) fL MCH 34.6 (25.0-35.0) pg MCHC 32.1 (31.0-37.0) g/dL RDW 16.4 H (11.5-15.5) % Plt Count 90 L (150-450) k/uL MPV 11.3 Neutrophils % (Manual) 82 % Lymphocytes % (Manual) 10 % Monocytes % (Manual) 7 % Eosinophils % (Manual) 1 % Neutrophils # (Manual) 5.08 (1.3-7.7) k/uL Lymphocytes # (Manual) 0.62 L (1.0-4.8) k/uL Monocytes # (Manual) 0.43 (0-1.0) k/uL Eosinophils # (Manual) 0.06 (0-0.7) k/uL Nucleated RBCs 0 (0-0) /100 WBC Manual Slide Review Performed Hypochromasia Slight Anisocytosis Slight Macrocytosis Marked A PT 12.3 (10.0-12.5) sec INR 1.2 H (<1.2) APTT 27.6 (22.0-30.0) sec Sodium 137 (137-145) mmol/L Potassium 4.7 (3.5-5.1) mmol/L Chloride 100 (98-107) mmol/L Carbon Dioxide 34 H (22-30) mmol/L Anion Gap 3 mmol/L BUN 24 H (9-20) mg/dL Creatinine 2.62 H (0.66-1.25) mg/dL Est GFR (CKD-EPI)AfAm 26 (>60 ml/min/1.73 sqM) Est GFR (CKD-EPI)NonAf 22 (>60 ml/min/1.73 sqM) Glucose 81 (74-99) mg/dL Plasma Lactic Acid Ryan (0.7-2.0) mmol/L Calcium 7.6 L (8.4-10.2) mg/dL Phosphorus 3.8 (2.5-4.5) mg/dL Magnesium 1.8 (1.6-2.3) mg/dL Total Bilirubin 1.0 (0.2-1.3) mg/dL AST 65 H (17-59) U/L ALT 48 (4-49) U/L Alkaline Phosphatase 219 H (38-126) U/L Ammonia (<30) umol/L Troponin I (0.000-0.034) ng/mL NT-Pro-B Natriuret Pep 040198 pg/mL Total Protein 6.7 (6.3-8.2) g/dL Albumin 3.4 L (3.5-5.0) g/dL TSH 0.882 (0.465-4.680) mIU/L Serum Alcohol <10 mg/dL 04/27/24 04/27/24 Range/Units 12:19 12:19 WBC (3.8-10.6) k/uL RBC (4.30-5.90) m/uL Hgb (13.0-17.5) gm/dL Hct (39.0-53.0) % MCV (80.0-100.0) fL MCH (25.0-35.0) pg MCHC (31.0-37.0) g/dL RDW (11.5-15.5) % Plt Count (150-450) k/uL MPV Neutrophils % (Manual) % Lymphocytes % (Manual) % Monocytes % (Manual) % Eosinophils % (Manual) % Neutrophils # (Manual) (1.3-7.7) k/uL Lymphocytes # (Manual) (1.0-4.8) k/uL Monocytes # (Manual) (0-1.0) k/uL Eosinophils # (Manual) (0-0.7) k/uL Nucleated RBCs (0-0) /100 WBC Manual Slide Review Hypochromasia Anisocytosis Macrocytosis PT (10.0-12.5) sec INR (<1.2) APTT (22.0-30.0) sec Sodium (137-145) mmol/L Potassium (3.5-5.1) mmol/L Chloride (98-107) mmol/L Carbon Dioxide (22-30) mmol/L Anion Gap mmol/L BUN (9-20) mg/dL Creatinine (0.66-1.25) mg/dL Est GFR (CKD-EPI)AfAm (>60 ml/min/1.73 sqM) Est GFR (CKD-EPI)NonAf (>60 ml/min/1.73 sqM) Glucose (74-99) mg/dL Plasma Lactic Acid Ryan 2.0 (0.7-2.0) mmol/L Calcium (8.4-10.2) mg/dL Phosphorus (2.5-4.5) mg/dL Magnesium (1.6-2.3) mg/dL Total Bilirubin (0.2-1.3) mg/dL AST (17-59) U/L ALT (4-49) U/L Alkaline Phosphatase (38-126) U/L Ammonia <9 (<30) umol/L Troponin I 0.158 H* (0.000-0.034) ng/mL NT-Pro-B Natriuret Pep pg/mL Total Protein (6.3-8.2) g/dL Albumin (3.5-5.0) g/dL TSH (0.465-4.680) mIU/L Serum Alcohol mg/dL - EKG Data -: EKG Interpreted by Me (EKG is sinus bradycardia 54 NC 179 QRS 140 QTc 498) - Radiology Data Radiology results: report reviewed (Chest x-ray is positive for pulmonary edema and pleural effusion), image reviewed Critical Care Time Critical Care Time: Yes Total Critical Care Time: 31 Disposition Clinical Impression: Non-STEMI (non-ST elevated myocardial infarction), Acute on chronic combined systolic (congestive) and diastolic (congestive) heart failure, Weakness, Altered mental status, Delirium due to general medical condition, Symptomatic anemia Disposition: ADMITTED IP TO THIS [facility] Condition: Stable Is patient prescribed a controlled substance at d/c from ED?: No Time of Disposition: 14:45
[2024-04-27 13:01] LABS: ALT 48 U/L (4-49); AST 65 U/L (17-59); African American GFR (CKD) 26 (>60 ml/min/1.73 sqM); Albumin 3.4 g/dL (3.5-5.0); Alcohol <10 mg/dL; Alkaline Phosphatase 219 U/L (38-126); Anion Gap 3 mmol/L; Blood Urea Nitrogen 24 mg/dL (9-20); Calcium 7.6 mg/dL (8.4-10.2); Carbon Dioxide 34 mmol/L (22-30); Chloride 100 mmol/L (98-107); Glucose 81 mg/dL (74-99); Magnesium 1.8 mg/dL (1.6-2.3); Non-African American GFR(CKD) 22 (>60 ml/min/1.73 sqM); Phosphorus 3.8 mg/dL (2.5-4.5); Potassium 4.7 mmol/L (3.5-5.1); Sodium 137 mmol/L (137-145); Total Protein 6.7 g/dL (6.3-8.2)
[2024-04-27 13:08] LABS: INR 1.2 (<1.2); Partial Thromboplastin Time 27.6 sec (22.0-30.0); Prothrombin Time 12.3 sec (10.0-12.5)
[2024-04-27 13:26] LABS: NT-Pro-B-Type Natriuretic Pept 102000 pg/mL
[2024-04-27 13:28] LABS: Anisocytosis Slight; Hypochromasia Slight; MCH 34.6 pg (25.0-35.0); MCHC 32.1 g/dL (31.0-37.0); MCV 107.8 fL (80.0-100.0); Macrocytosis Marked; Mean Platelet Volume 11.3; RBC 2.13 m/uL (4.30-5.90); RDW 16.4 % (11.5-15.5); WBC 6.2 k/uL (3.8-10.6)
--- NOTE | 2024-04-27 13:54 | XR ---
EXAMINATION TYPE: XR chest 2V DATE OF EXAM: 04/27/2024 12:57 PM COMPARISON: Chest radiographs from 07/08/2023 CLINICAL INDICATION: Male, 78 years old with history of Weakness; [facility] TECHNIQUE: XR chest 2V Frontal and lateral views of the chest. FINDINGS: Lungs/Pleura: No evidence of focal consolidation or pneumothorax. Blunting of the costophrenic angles is present. Pulmonary vascularity: Mild pulmonary vascular congestion. Heart/mediastinum: Cardiomediastinal silhouette is enlarged and stable. Musculoskeletal: No acute osseous pathology. Other findings: None IMPRESSION: Cardiomegaly, pulmonary vascular congestion and bilateral pleural effusions. Correlate with BNP for c ongestive heart failure. [facility], , 04/27/2024 1:52 PM
[2024-04-27 14:01] LABS: HGB 7.4 gm/dL (13.0-17.5)
[2024-04-27 14:23] LABS: Eosinophils # (M) 0.06 k/uL (0-0.7); Lymphocytes # (M) 0.62 k/uL (1.0-4.8); Monocytes # (M) 0.43 k/uL (0-1.0); Neutrophils # (M) 5.08 k/uL (1.3-7.7); Neutrophils % (M) 82 %; Nucleated Red Blood Cells 0 /100 WBC (0-0); Total Cells Counted 100
[2024-04-27 14:24] LABS: Platelet Count 90 k/uL (150-450)
[2024-04-27] MEDS: SODIUM CHLORIDE 0.9% 1,000 ML IV STA (14:40)
[2024-04-27] MEDS ORDERED: ONDANSETRON 4 MG/2 ML VIAL IVP PRN (14:42)
[2024-04-27] MEDS ORDERED: NALOXONE 0.4 MG/ML 1 ML VIAL IV PRN (14:42)
[2024-04-27] MEDS: SODIUM CHLORIDE 0.9% 1,000 ML IV SCH (15:00)
--- NOTE | 2024-04-27 18:40 | P.HPIM ---
History of Present Illness H&P Date: 04/27/24 Patient is a 78-year-old male with hyperlipidemia, anemia of chronic disease, severe aortic stenosis, ESRD (status post kidney transplant x 2, on dialysis Friday weekly), reduced ejection fraction CHF (20 to 25% EF on echo done in June 2023), chronic wound on right lower extremity (being seen by wound care at home), and MRSA (from bacteremia, last infection 03/18 and was given vancomycin) who came in for altered mental status. Patient was a poor historian and information was also gathered from daughter and son who are at bedside. Per family members, patient was very tired and sleepy as he was being taken to dialysis today which was below his baseline. During dialysis, patient was informing RNs that he did not feel well and would like to go to the hospital as he was feeling like he was getting confused and generally weak. He also noted that his right eye had blurry vision, was painful and had excessive tearing. He denied fevers, sweats, nausea, vomiting, abdominal pain, chest pain, shortness of breath, calf tenderness, tremors, facial asymmetry, focal weakness, changes in speech, bleeding, bruising, recent travel, or sick contacts. Patient was recently admitted in 03/18 for cellulitis of right lower extremity, PAD of right lower extremity found on CT that was stable, and positive MRSA on blood cultures and was prescribed vancomycin on discharge given after dialysis but family members are not sure if the medication duration was completed. In the ER, chest x-ray showed bilateral pleural effusions and increased cardiac border. EKG showed sinus bradycardia rate of 54 with PVCs wide QRS left bundle branch block and left axis deviation QTc normal. WBC 6.2 hemoglobin 7.4 platelet count 90,000 sodium 137 potassium 4.7 bicarb 34 BUN 24 creatinine 2.62 calcium 7.6 alk phos 219 troponin 0.158 TSH 0.882 serum EtOH less than 10. On admission, patient was afebrile at 97.8 Fahrenheit pulse 61 respiratory rate 18 blood pressure 108/44 O2 saturation 99% at room air Review of systems: Pertinent positives and negatives as discussed in HPI, a complete review of systems was performed and all other systems are negative. Physical examination: Vital signs reviewed General: Lethargic, no distress, appears at stated age Derm: no unusual rashes/lesions, warm, right lower extremity wound with dressing clean and dry no erythema of surrounding skin Head: atraumatic, normocephalic, symmetric Eyes: EOMI, anicteric sclera, pupils unequal size, round, reactive to light ENT: Nose and ears atraumatic Neck: No cervical lymphadenopathy, trachea midline, supple, post-auricular mass near left Mouth: no lip lesion, mucus membranes dry Cardiovascular: S1S2 reg, 3/6 holosystolic murmur heard best at right 2nd ICS Lungs: CTA bilateral, no rhonchi, no rales, no accessory muscle use Abdominal: soft, nondistended, nontender to palpation, no guarding Ext: muscle strength 3 out 5 strength in bilateral upper extremities, 5 out of 5 in bilateral lower extremities grossly, no gross muscle atrophy, no contractures, positive dorsalis pedis pulse bilateral, bilateral +2 pitting edema Neuro: CN II-XI grossly intact, generalized weakness, no gross focal neuro deficits Psych: Alert and oriented x 3, appropriate affect and mood Assessment/Plan: 78 year old male who came in for altered mental status with possible multiple sources. #. Altered mental status with lethargy and weakness #. Acute anemia superimposed on anemia of chronic disease Cardiac monitoring Fall precautions Echocardiogram CT head with out contrast Serum phosphorus Serum 25 vitamin D oh hydroxylase CBC posttransfusion BMP at a.m. Random vancomycin level Vancomycin IV dosed per pharmacy Received 1 unit packed RBC in the ED Consult cardiology #. ESRD on hemodialysis 3 times per week, at baseline Consult nephrology #. Right lower extremity wound due to PAD Consult wound care Chronic Conditions: #. Reduced ejection fraction CHF, not in exacerbation Resume home medications once reconciled F: 0.9% normal saline IVF 75 cc/h E: Replete as needed N: Clear liquid diet A: On fall precautions DVT ppx: Subcutaneous heparin every 8 hours GI ppx: Protonix 40 mg IV daily Dispo: The patient is admitted with an anticipated greater than than 2 midnight stay for evaluation of altered mental status CODE STATUS: DO NOT RESUSCITATE Discussed with: Patient, and patient's son and daughter Anticipated discharge place: Home Sandra Gomez MD PGY-1 IM Dictation was produced using [employer] dictation software. please excuse any grammatical, word or spelling errors. I saw and evaluated the patient during the westfall and critical portions of this encounter, and discussed the case in detail with the resident author of this note, I agree with the Assessment and Plan, and my changes, if any, are highlighted in blue. Patient has a recent history of MRSA bacteremia, with which she presented with similar symptoms of lethargy and cellulitis. Given patient's more pronounced presentation of lethargy with ongoing anemia, thrombocytopenia, concern for subtherapeutic treatment of MRSA bacteremia should be considered. Follow-up blood cultures. Start the patient on empiric vancomycin. Obtain ESR/CRP levels. Echocardiogram is pending. CT of the head is pending. 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%, history of renal transplant and 2 in 1992 from a donor and in 1995 from a living donor, history of neck fracture, history of Covid 19 infection, severe aortic stenosis, anemia of chronic disease neuropathy, dialysis Friday History of Any Multi-Drug Resistant Organisms: MRSA Date of last positivie culture/infection: 03/19/24 MDRO Source:: rt knee, blood Past Surgical History: Appendectomy Additional Past Surgical History / Comment(s): Kidney transplant in 07/28/1992 and 1995 and 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 Father Family Medical History: CVA/TIA Additional Family Medical History / Comment(s): of stroke. Medications and Allergies Home Medications Medication Instructions Recorded Confirmed Type [place]-3/Dha/Epa/Fish Oil [Fish Oil 1 cap PO DAILY 01/29/22 04/27/24 History 1,000 mg Softgel] Isosorbide Mononitrate ER [Imdur] 30 mg PO DAILY 01/30/22 04/27/24 History rOPINIRole HCL [Requip] 2 mg PO BID 05/01/22 04/27/24 History Metoprolol Succinate (ER) [Toprol 25 mg PO DAILY #30 tab 06/26/22 04/27/24 Rx XL] Bumetanide [BUMEX] 4 mg PO DAILY 08/16/22 04/27/24 History Calcium Acetate [PhosLo] 1,334 mg PO TID-W/MEALS 08/16/22 04/27/24 History allopurinoL [Zyloprim] 100 mg PO DAILY 02/12/23 04/27/24 History oxyCODONE-APAP 5-325MG [Percocet 1 - 1.5 tab PO TID PRN 02/12/23 04/27/24 History 5-325 mg] Midodrine [ProAmatine] 5 mg PO AC-BID PRN 09/25/23 04/27/24 History Carboxymethylcellulose Sodium 1 drop BOTH EYES TID 03/19/24 04/27/24 History [Refresh Tears] Cholecalciferol (Vitamin D3) 50 mcg PO DAILY 03/19/24 04/27/24 History [Vitamin D3 (50 Mcg = 2000 Iu)] Lidocaine 5% Oint [Xylocaine 5% 1 applic TOPICAL DIRECTED PRN 03/19/24 04/27/24 History Oint] PARoxetine [Paxil] 10 mg PO DAILY 03/19/24 04/27/24 History Aspirin 81 mg PO DAILY #60 tab 03/22/24 04/27/24 Rx Atorvastatin [Lipitor] 80 mg PO HS #60 tab 03/22/24 04/27/24 Rx Allergies Allergy/AdvReac Type Severity Reaction Status Date / Time losartan Allergy Intermediate Swelling Verified 04/27/24 12:47 Aminoglycosides Allergy Unknown Unknown Verified 04/27/24 12:47 REINIER Inhibitors Allergy Unknown Verified 04/27/24 12:47 enalapril Allergy Swelling Verified 04/27/24 12:47 enalaprilat [From Vasotec] Allergy Swelling Verified 04/27/24 12:47 ibuprofen Allergy Unknown Verified 04/27/24 12:47 lisinopril Allergy Swelling Verified 04/27/24 12:47 vancomycin Allergy Unknown Verified 04/27/24 12:47 vitamin A Allergy Unknown Verified 04/27/24 12:47 gabapentin AdvReac Hallucinati Verified 04/27/24 12:47 ons/Nightma res Physical Exam Osteopathic Statement: *. No significant issues noted on an osteopathic structural exam other than those noted in the History and Physical/Consult. Vitals: Vital Signs Temp Pulse Resp BP Pulse Ox 04/27/24 14:56 65 20 90/50 98 04/27/24 14:16 62 20 93/57 99 04/27/24 12:40 57 L 20 94/69 99 04/27/24 12:11 97.8 F 61 18 108/44 92 L Intake and Output 04/27/24 04/27/24 04/27/24 06:59 14:59 22:59 Other: Weight 68.039 kg Results CBC & Chem 7: 04/27/24 12:19 04/27/24 12:19 Labs: Abnormal Lab Results - Last 24 Hours (Table) 04/27/24 04/27/24 04/27/24 Range/Units 12:19 12:19 12:19 RBC 2.13 L (4.30-5.90) m/uL Hgb 7.4 L D (13.0-17.5) gm/dL Hct 23.0 L (39.0-53.0) % MCV 107.8 H (80.0-100.0) fL RDW 16.4 H (11.5-15.5) % Plt Count 90 L (150-450) k/uL Lymphocytes # (Manual) 0.62 L (1.0-4.8) k/uL Macrocytosis Marked A INR 1.2 H (<1.2) Carbon Dioxide 34 H (22-30) mmol/L BUN 24 H (9-20) mg/dL Creatinine 2.62 H (0.66-1.25) mg/dL Calcium 7.6 L (8.4-10.2) mg/dL AST 65 H (17-59) U/L Alkaline Phosphatase 219 H (38-126) U/L Troponin I (0.000-0.034) ng/mL Albumin 3.4 L (3.5-5.0) g/dL Crossmatch 04/27/24 04/27/24 Range/Units 12:19 14:54 RBC (4.30-5.90) m/uL Hgb (13.0-17.5) gm/dL Hct (39.0-53.0) % MCV (80.0-100.0) fL RDW (11.5-15.5) % Plt Count (150-450) k/uL Lymphocytes # (Manual) (1.0-4.8) k/uL Macrocytosis INR (<1.2) Carbon Dioxide (22-30) mmol/L BUN (9-20) mg/dL Creatinine (0.66-1.25) mg/dL Calcium (8.4-10.2) mg/dL AST (17-59) U/L Alkaline Phosphatase (38-126) U/L Troponin I 0.158 H* (0.000-0.034) ng/mL Albumin (3.5-5.0) g/dL Crossmatch See Detail
[2024-04-27] MEDS ORDERED: VANCOMYCIN IV PER PHARMACY 1 EACH MISC MISCELLANE PRN (18:43)
[2024-04-27 19:21] LABS: C Reactive Protein 1.9 mg/dL (<1.0)
[2024-04-27 19:23] LABS: Vancomycin,Random <5.0 ug/mL
--- NOTE | 2024-04-27 19:57 | CT ---
EXAMINATION TYPE: CT brain wo con DATE OF EXAM: 04/27/2024 7:26 PM COMPARISON: 01/20/2023. CLINICAL INDICATION: Male, 78 years old with history of AMS, AMS. TECHNIQUE: Brain: Axial CT images of the brain were obtained with coronal and sagittal reformats created and rev iewed. Contrast used: None. Oral contrast used: None. CT DLP: 1164.8 mGycm, Automated exposure control for dose reduction was used. FINDINGS: Brain: Extra-axial spaces: No abnormal extra-axial fluid collections. Ventricular system: Dilatation in proportion to cerebral atrophy. Cerebral parenchyma: Cerebral atrophy. No acute intraparenchymal hemorrhage or mass effect. The mcleod -white junction is well differentiated. Scattered hypoattenuating areas are seen within the white mat ter. Cerebellum: Cerebellar atrophy Mass effect: No evidence of midline shift. Intracranial vasculature: Atherosclerotic calcifications of the intracranial vessels. Soft tissues: Normal. Calvarium/osseous structures: No depressed skull fracture. Similar anterior subluxation of C1 on C2. Paranasal sinuses and mastoid air cells: Mild scattered paranasal sinus disease. Visualized orbits: Bilateral aphakia IMPRESSION: 1. No acute intracranial process. 2. Nonspecific white matter changes, likely secondary to chronic small vessel ischemic disease. [facility], , 04/27/2024 7:55 PM
[2024-04-27] MEDS: VANCOMYCIN 1,250 MG in SODIUM CHLORIDE 0.9% 250 ML IVPB ONE (20:01)
[2024-04-27 20:31] LABS: Anisocytosis Slight; Basophils % (A) 1 %; Eosinophils # (A) 0.2 k/uL (0-0.7); Eosinophils % (A) 3 %; HCT 22.9 % (39.0-53.0); HGB 7.4 gm/dL (13.0-17.5); Hypochromasia Moderate; Lymphocytes # (A) 0.5 k/uL (1.0-4.8); Lymphocytes % (A) 10 %; MCH 34.4 pg (25.0-35.0); MCHC 32.1 g/dL (31.0-37.0); MCV 107.1 fL (80.0-100.0); Macrocytosis Marked; Mean Platelet Volume 10.8; Monocytes # (A) 0.3 k/uL (0-1.0); Monocytes % (A) 6 %; Neutrophils # (A) 4.1 k/uL (1.3-7.7); Neutrophils % (A) 78 %; RBC 2.14 m/uL (4.30-5.90); RDW 17.4 % (11.5-15.5); WBC 5.3 k/uL (3.8-10.6)
[2024-04-27 20:33] LABS: Platelet Count 66 k/uL (150-450)
[2024-04-27] MEDS: ATORVASTATIN 80 MG TAB PO SCH (20:56)
[2024-04-27] MEDS: ARTIFICIAL TEARS-HYPROMELLOSE DROPS 15 ML BTL BOTH EYES SCH (21:41)
[2024-04-27] MEDS: CEFEPIME 1 GM in SODIUM CHLORIDE 0.9% 50 ML IVPB SCH (22:18)
[2024-04-28] MEDS: HYDROmorphone 0.5 MG/0.5 ML SYRINGE IVP PRN (00:31)
[2024-04-28 03:20] LABS: Erythrocyte Sedimentation Rate 14 mm/Hr (0-20)
[2024-04-28 06:59] LABS: Anisocytosis Slight; Basophils % (A) 0 %; Eosinophils # (A) 0.1 k/uL (0-0.7); Eosinophils % (A) 2 %; HGB 7.5 gm/dL (13.0-17.5); Hypochromasia Moderate; Lymphocytes # (A) 0.6 k/uL (1.0-4.8); Lymphocytes % (A) 12 %; MCH 34.9 pg (25.0-35.0); MCHC 32.7 g/dL (31.0-37.0); Macrocytosis Marked; Mean Platelet Volume 10.9; Monocytes # (A) 0.3 k/uL (0-1.0); Monocytes % (A) 5 %; Neutrophils # (A) 4.4 k/uL (1.3-7.7); Neutrophils % (A) 80 %; RBC 2.15 m/uL (4.30-5.90); RDW 17.4 % (11.5-15.5); WBC 5.5 k/uL (3.8-10.6)
[2024-04-28 07:01] LABS: MCV 106.8 fL (80.0-100.0); Platelet Count 71 k/uL (150-450)
[2024-04-28 07:20] LABS: ALT 44 U/L (4-49); AST 58 U/L (17-59); African American GFR (CKD) 18 (>60 ml/min/1.73 sqM); Alkaline Phosphatase 214 U/L (38-126); Anion Gap 10 mmol/L; Blood Urea Nitrogen 39 mg/dL (9-20); Calcium 6.8 mg/dL (8.4-10.2); Carbon Dioxide 29 mmol/L (22-30); Chloride 97 mmol/L (98-107); Glucose 72 mg/dL (74-99); Magnesium 1.6 mg/dL (1.6-2.3); Non-African American GFR(CKD) 16 (>60 ml/min/1.73 sqM); Phosphorus 5.3 mg/dL (2.5-4.5); Potassium 4.1 mmol/L (3.5-5.1); Sodium 136 mmol/L (137-145); Total Bilirubin 1.4 mg/dL (0.2-1.3)
--- NOTE | 2024-04-28 08:18 | P.CRDCN ---
History of Present Illness Consult date: 04/28/24 Reason for Consult (text): CHF, severe History of present illness: This is an 78-year-old male patient of Dr. Wade Phillips with past medical history of severe aortic stenosis, cardiomyopathy with severe LV dysfunction, end-stage renal disease on hemodialysis and status post kidney transplant x 2, chronic wound of the right lower extremity. peripheral vascular disease. We have been asked to evaluate the patient for CHF and severe . Patient presented to the hospital due to altered mental status, weakness and brought from dialysis. Init ial blood pressures were 22710 systolic. Heart rate was in the 50s and 60s. No hypoxia. Patient states that "I was goofy yesterday." He also complains of dizziness and lightheadedness. He occasionally has chills but no fever. He denies chest pain or pressure. He denies missing HD treatments. Blood pressure 115/60, heart rate 60, pulse ox 100%. Patient is seen today in the emergency center waiting for a bed on the cardiac stepdown unit. Patient has been started on IV antibiotics, IV fluids. He states that he had a previous cardiac cath a number of years ago in [place]. Mental status appears to be improved since he arrived. -EKG: Sinus rhythm with left bundle branch block 54 bpm, PVCs -Chest x-ray: Cardiomegaly, pulmonary vascular congestion and bilateral pleural effusions. -CT of the brain revealed no acute intracranial process. -Laboratory studies: Troponin 0.158, 0.143, 0.137. proBNP 102,000. C-reactive protein 1.9. TSH 0.883. Alcohol level less than 10 WBC 5.5, hemoglobin 7.5, platelet count 71. Sodium 136, potassium 4.1, BUN 39 creatinine 3.51. Influenza A, influenza B, RSV and COVID-19 not detected. -Home cardiac medications: Aspirin 81 mg daily, atorvastatin 80 mg at bedtime, Bumex 4 mg daily, Imdur 30 mg daily, Toprol XL 25 mg daily, also on midodrine as needed -Echocardiogram performed 07/01/2023 revealed EF of 20 to 25% with dilated left ventricle. Aortic sclerosis with mean gradient 18 mmHg. Moderate to severe right ventricular dilation. Moderate to severe tricuspid regurgitation. Review Of Systems: At the time of my exam: CONSTITUTIONAL: Denies fever or chills. HEENT: Denies blurred vision, vision changes, or eye pain. Denies hemoptysis CARDIOVASCULAR: Denies chest pain. Denies orthopnea. Denies PND. Denies palpitations RESPIRATORY: Denies shortness of breath. GASTROINTESTINAL: Denies abdominal pain. Denies nausea or vomiting. HEMATOLOGIC: Denies bleeding disorders. GENITOURINARY: Denies any blood in urine. SKIN: Denies puritis. Denies rash. Physical examination: Gen: This is a 78-year-old male in no acute distress VS: reviewed HEENT: Head is atraumatic, normocephalic. Pupils equal, round. Sclerae is anicteric. NECK: Supple. No JVD. LUNGS: Clear to auscultation. No wheezes or rhonchi. No intercostal retractions. HEART: Regular rate and rhythm. 4/6 AR. ABDOMEN: Soft No tenderness. EXTREMITIES: No pedal edema. No calf tenderness. NEUROLOGICAL: Patient is awake, alert. Assessment: Metabolic encephalopathy Dizziness and lightheadedness Elevated would consider cardiac catheterization troponin secondary to chronic ki dney disease Possibly related to anemia, anemia Thrombocytopenia End-stage renal disease on hemodialysis Chronic right lower extremity wound PAD Severe aortic stenosis Cardiomyopathy Chronic systolic heart failure Hyperlipidemia Chronic hypotension Plan: Resume patient's home cardiac medications Obtain 2-D echocardiogram and Doppler study to assess cardiac structure and function Would consider cardiac catheterization for ischemic workup and also ATA to further evaluate aortic stenosis Further recommendations to follow based upon clinical course Thank you kindly for this consultation. Nurse practitioner note has been reviewed, I agree with documented findings and plan of care. Patient was seen and examined. 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%, history of renal transplant and 2 in 1992 from a donor and in 1995 from a living donor, history of neck fracture, history of Covid 19 infection, severe aortic stenosis, anemia of chronic disease neuropathy, dialysis Friday History of Any Multi-Drug Resistant Organisms: MRSA Date of last positivie culture/infection: 03/19/24 MDRO Source:: rt knee, blood Past Surgical History: Appendectomy Additional Past Surgical History / Comment(s): Kidney transplant in 07/28/1992 and 1995 and 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 Father Family Medical History: CVA/TIA Additional Family Medical History / Comment(s): of stroke. Medications and Allergies Home Medications Medication Instructions Recorded Confirmed Type [place]-3/Dha/Epa/Fish Oil [Fish Oil 1 cap PO DAILY 01/29/22 04/27/24 History 1,000 mg Softgel] Isosorbide Mononitrate ER [Imdur] 30 mg PO DAILY 01/30/22 04/27/24 History rOPINIRole HCL [Requip] 2 mg PO BID 05/01/22 04/27/24 History Metoprolol Succinate (ER) [Toprol 25 mg PO DAILY #30 tab 06/26/22 04/27/24 Rx XL] Bumetanide [BUMEX] 4 mg PO DAILY 08/16/22 04/27/24 History Calcium Acetate [PhosLo] 1,334 mg PO TID-W/MEALS 08/16/22 04/27/24 History allopurinoL [Zyloprim] 100 mg PO DAILY 02/12/23 04/27/24 History oxyCODONE-APAP 5-325MG [Percocet 1 - 1.5 tab PO TID PRN 02/12/23 04/27/24 History 5-325 mg] Midodrine [ProAmatine] 5 mg PO AC-BID PRN 09/25/23 04/27/24 History Carboxymethylcellulose Sodium 1 drop BOTH EYES TID 03/19/24 04/27/24 History [Refresh Tears] Cholecalciferol (Vitamin D3) 50 mcg PO DAILY 03/19/24 04/27/24 History [Vitamin D3 (50 Mcg = 2000 Iu)] Lidocaine 5% Oint [Xylocaine 5% 1 applic TOPICAL DIRECTED PRN 03/19/24 04/27/24 History Oint] PARoxetine [Paxil] 10 mg PO DAILY 03/19/24 04/27/24 History Aspirin 81 mg PO DAILY #60 tab 03/22/24 04/27/24 Rx Atorvastatin [Lipitor] 80 mg PO HS #60 tab 03/22/24 04/27/24 Rx Allergies Allergy/AdvReac Type Severity Reaction Status Date / Time losartan Allergy Intermediate Swelling Verified 04/27/24 12:47 Aminoglycosides Allergy Unknown Unknown Verified 04/27/24 12:47 REINIER Inhibitors Allergy Unknown Verified 04/27/24 12:47 enalapril Allergy Swelling Verified 04/27/24 12:47 enalaprilat [From Vasotec] Allergy Swelling Verified 04/27/24 12:47 ibuprofen Allergy Unknown Verified 04/27/24 12:47 lisinopril Allergy Swelling Verified 04/27/24 12:47 vancomycin Allergy Unknown Verified 04/27/24 12:47 vitamin A Allergy Unknown Verified 04/27/24 12:47 gabapentin AdvReac Hallucinati Verified 04/27/24 12:47 ons/Nightma res Physical Exam Vitals: Vital Signs Temp Pulse Resp BP Pulse Ox 04/28/24 06:00 60 15 115/60 100 04/28/24 05:00 60 15 109/61 100 04/28/24 04:00 59 L 13 114/59 04/28/24 03:00 58 L 12 106/73 04/28/24 02:00 52 L 12 107/55 04/28/24 01:00 60 12 107/64 100 04/28/24 00:00 55 L 18 106/50 100 04/27/24 23:00 57 L 14 113/64 100 04/27/24 22:21 58 L 18 119/39 100 04/27/24 21:28 57 L 16 109/57 100 04/27/24 19:07 98.3 F 60 12 118/65 100 04/27/24 18:30 53 L 12 118/60 100 04/27/24 18:00 98.2 F 54 L 12 111/57 100 04/27/24 17:26 98.2 F 54 L 16 107/52 100 04/27/24 17:16 98.3 F 54 L 14 106/50 100 04/27/24 17:06 98.2 F 58 L 18 103/52 100 04/27/24 16:58 98.3 F 55 L 18 98 04/27/24 16:48 55 L 18 100/50 98 04/27/24 14:56 65 20 90/50 98 04/27/24 14:16 62 20 93/57 99 04/27/24 12:40 57 L 20 94/69 99 04/27/24 12:11 97.8 F 61 18 108/44 92 L Intake and Output 04/27/24 04/28/24 04/28/24 22:59 06:59 14:59 Intake Total 310 Balance 310 Intake: Blood Product 310 Rc As-1 Unit 310 [id number] Results 04/28/24 06:38 04/28/24 06:38 Cardiac Enzymes 04/27/24 04/27/24 04/27/24 Range/Units 12:19 12:19 15:29 AST 65 H (17-59) U/L Troponin I 0.158 H* 0.143 H* (0.000-0.034) ng/mL 04/27/24 04/28/24 Range/Units 18:03 06:38 AST 58 (17-59) U/L Troponin I 0.137 H* (0.000-0.034) ng/mL Coagulation 04/27/24 Range/Units 12:19 PT 12.3 (10.0-12.5) sec APTT 27.6 (22.0-30.0) sec CBC 04/27/24 04/27/24 04/28/24 Range/Units 12:19 19:56 06:38 WBC 6.2 5.3 5.5 (3.8-10.6) k/uL RBC 2.13 L 2.14 L 2.15 L (4.30-5.90) m/uL Hgb 7.4 L D 7.4 L 7.5 L (13.0-17.5) gm/dL Hct 23.0 L 22.9 L 23.0 L (39.0-53.0) % Plt Count 90 L 66 L 71 L (150-450) k/uL Comprehensive Metabolic Panel 04/27/24 04/28/24 Range/Units 12:19 06:38 Sodium 137 136 L (137-145) mmol/L Potassium 4.7 4.1 (3.5-5.1) mmol/L Chloride 100 97 L (98-107) mmol/L Carbon Dioxide 34 H 29 (22-30) mmol/L BUN 24 H 39 H (9-20) mg/dL Creatinine 2.62 H 3.51 H (0.66-1.25) mg/dL Glucose 81 72 L (74-99) mg/dL Calcium 7.6 L 6.8 L (8.4-10.2) mg/dL AST 65 H 58 (17-59) U/L ALT 48 44 (4-49) U/L Alkaline Phosphatase 219 H 214 H (38-126) U/L Total Protein 6.7 6.0 L (6.3-8.2) g/dL Albumin 3.4 L 3.0 L (3.5-5.0) g/dL Current Medications Generic Name Dose Route Start Last Admin Trade Name Freq PRN Reason Stop Dose Admin Allopurinol 100 mg 04/28/24 09:00 Allopurinol 100 Mg Tab PO DAILY MONY Artificial Tears 1 drops 04/27/24 22:00 04/27/24 21:41 Artificial Tears-Hypromellose Drops 15 Ml Btl BOTH EYES 1 drops TID MONY Administration Aspirin 81 mg 04/28/24 09:00 Aspirin 81 Mg PO DAILY [facility] Atorvastatin Calcium 80 mg 04/27/24 21:00 04/27/24 20:56 Atorvastatin 80 Mg Tab PO 80 mg HS MONY Administration Bumetanide 4 mg 04/28/24 09:00 Bumetanide 1 Mg Tab PO DAILY [facility] Calcium Acetate 1,334 mg 04/28/24 07:30 Calcium Acetate 667 Mg Tab PO TID-W/MEALS [facility] Cholecalciferol 50 mcg 04/28/24 09:00 Cholecalciferol 25 Mcg (1000 Iu) Tablet PO DAILY [facility] Hydromorphone HCl 0.5 mg 04/27/24 14:42 04/28/24 00:31 Hydromorphone 0.5 Mg/0.5 Ml Syringe IVP 0.5 mg Q3HR PRN Administration Severe Pain (Scale 7 to 10) Sodium Chloride 1,000 mls @ 75 mls/hr 04/27/24 14:45 04/28/24 06:33 Saline 0.9% IV 75 mls/hr .[id number] MONY Administration Vancomycin HCl 1,250 mg/ 250 mls @ 125 mls/hr 04/28/24 20:00 Sodium Chloride IVPB 04/28/24 21:59 ONCE ONE Cefepime HCl 1 gm/ Sodium 50 mls @ 12.5 mls/hr 04/27/24 20:00 04/27/24 22:18 Chloride IVPB 12.5 mls/hr Q24H MONY Administration Miscellaneous Information 1 each 04/27/24 18:43 Vancomycin Iv Per Pharmacy 1 Each Misc MISCELLANE DIRECTED PRN Per Protocol Protocol Naloxone HCl 0.2 mg 04/27/24 14:42 Naloxone 0.4 Mg/Ml 1 Ml Vial IV Q2M PRN Opioid Reversal Ondansetron HCl 4 mg 04/27/24 14:42 Ondansetron 4 Mg/2 Ml Vial IVP Q8HR PRN Nausea And Vomiting Pantoprazole Sodium 40 mg 04/28/24 09:00 Pantoprazole 40 Mg/10 Ml Vial IV DAILY MONY Paroxetine HCl 10 mg 04/28/24 09:00 Paroxetine 10 Mg Tab PO DAILY MONY Ropinirole HCl 2 mg 04/27/24 21:00 04/27/24 20:56 Ropinirole Hcl 1 Mg Tab PO 2 mg BID MONY Administration Intake and Output 04/27/24 04/28/24 04/28/24 22:59 06:59 14:59 Intake Total 310 Balance 310 Intake: Blood Product 310 Rc As-1 Unit 310 [id number] 04/28/24 06:38 04/28/24 06:38
[2024-04-28] MEDS: ASPIRIN 81 MG PO SCH (08:19)
[2024-04-28] MEDS: PANTOPRAZOLE 40 MG/10 ML VIAL IV SCH (08:19)
[2024-04-28] MEDS: CALCIUM ACETATE 667 MG TAB PO SCH (08:19)
[2024-04-28] MEDS: BUMETANIDE 1 MG TAB PO SCH (08:20)
[2024-04-28] MEDS: allopurinoL 100 MG TAB PO SCH (08:20)
[2024-04-28] MEDS: PARoxetine 10 MG TAB PO SCH (08:21)
[2024-04-28] MEDS: CHOLECALCIFEROL 25 MCG (1000 IU) TABLET PO SCH (08:21)
[2024-04-28] MEDS ORDERED: NON FORMULARY DRUG (Omega-3/Dha/Epa/Fish Oil [Fish Oil 1,000 Mg Softgel] 1 EACH Capsule) PO SCH (09:00)
--- NOTE | 2024-04-28 10:24 | P.NPCON ---
History of Present Illness - Reason for Consult end stage renal disease - History of Present Illness Reason for consultation: End-stage renal disease History of present illness: Patient is a 78-year-old male seen in renal consultation for end-stage renal disease. Patient was seen and examined in the emergency room. Patient is maintained on hemodialysis on Friday schedule. Patient came to the hospital due to generalized weakness lethargy and decreased responsiveness. Patient did complain of pain and burning in his legs at the dialysis unit and subsequently came to the hospital. Patient does have history of systolic CHF ejection fraction of less than 20% as well as aortic stenosis. Denies history of diabetes. Patient does have wound on his right lower extremity. He denies chest pain or shortness of breath. Did eat breakfast this morning. No fever or chills. White count normal. Vital signs are stable. General: No acute distress. HEENT: Head exam is unremarkable. On nasal cannula. LUNGS: No audible rhonchi or wheezes. HEART: Rate and Rhythm are regular. ABDOMEN: Nontender. EXTREMITITES: No edema. Right lower extremity wound noted. No drainage. 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%, history of renal transplant and 2 in 1992 from a donor and in 1995 from a living donor, history of neck fracture, history of Covid 19 infection, severe aortic stenosis, anemia of chronic disease neuropathy, dialysis Friday History of Any Multi-Drug Resistant Organisms: MRSA Date of last positivie culture/infection: 03/19/24 MDRO Source:: rt knee, blood Past Surgical History: Appendectomy Additional Past Surgical History / Comment(s): Kidney transplant in 07/28/1992 and 1995 and 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 Father Family Medical History: CVA/TIA Additional Family Medical History / Comment(s): of stroke. Medications and Allergies Home Medications Medication Instructions Recorded Confirmed Type [place]-3/Dha/Epa/Fish Oil [Fish Oil 1 cap PO DAILY 01/29/22 04/27/24 History 1,000 mg Softgel] Isosorbide Mononitrate ER [Imdur] 30 mg PO DAILY 01/30/22 04/27/24 History rOPINIRole HCL [Requip] 2 mg PO BID 05/01/22 04/27/24 History Metoprolol Succinate (ER) [Toprol 25 mg PO DAILY #30 tab 06/26/22 04/27/24 Rx XL] Bumetanide [BUMEX] 4 mg PO DAILY 08/16/22 04/27/24 History Calcium Acetate [PhosLo] 1,334 mg PO TID-W/MEALS 08/16/22 04/27/24 History allopurinoL [Zyloprim] 100 mg PO DAILY 02/12/23 04/27/24 History oxyCODONE-APAP 5-325MG [Percocet 1 - 1.5 tab PO TID PRN 02/12/23 04/27/24 History 5-325 mg] Midodrine [ProAmatine] 5 mg PO AC-BID PRN 09/25/23 04/27/24 History Carboxymethylcellulose Sodium 1 drop BOTH EYES TID 03/19/24 04/27/24 History [Refresh Tears] Cholecalciferol (Vitamin D3) 50 mcg PO DAILY 03/19/24 04/27/24 History [Vitamin D3 (50 Mcg = 2000 Iu)] Lidocaine 5% Oint [Xylocaine 5% 1 applic TOPICAL DIRECTED PRN 03/19/24 04/27/24 History Oint] PARoxetine [Paxil] 10 mg PO DAILY 03/19/24 04/27/24 History Aspirin 81 mg PO DAILY #60 tab 03/22/24 04/27/24 Rx Atorvastatin [Lipitor] 80 mg PO HS #60 tab 03/22/24 04/27/24 Rx Allergies Allergy/AdvReac Type Severity Reaction Status Date / Time losartan Allergy Intermediate Swelling Verified 04/27/24 12:47 Aminoglycosides Allergy Unknown Unknown Verified 04/27/24 12:47 REINIER Inhibitors Allergy Unknown Verified 04/27/24 12:47 enalapril Allergy Swelling Verified 04/27/24 12:47 enalaprilat [From Vasotec] Allergy Swelling Verified 04/27/24 12:47 ibuprofen Allergy Unknown Verified 04/27/24 12:47 lisinopril Allergy Swelling Verified 04/27/24 12:47 vancomycin Allergy Unknown Verified 04/27/24 12:47 vitamin A Allergy Unknown Verified 04/27/24 12:47 gabapentin AdvReac Hallucinati Verified 04/27/24 12:47 ons/Nightma res Physical Exam Vitals: Vital Signs Temp Pulse Resp BP Pulse Ox 04/28/24 10:08 55 L 20 107/62 04/28/24 08:12 98.4 F 62 20 117/56 100 04/28/24 06:00 60 15 115/60 100 04/28/24 05:00 60 15 109/61 100 04/28/24 04:00 59 L 13 114/59 04/28/24 03:00 58 L 12 106/73 04/28/24 02:00 52 L 12 107/55 04/28/24 01:00 60 12 107/64 100 04/28/24 00:00 55 L 18 106/50 100 04/27/24 23:00 57 L 14 113/64 100 04/27/24 22:21 58 L 18 119/39 100 04/27/24 21:28 57 L 16 109/57 100 04/27/24 19:07 98.3 F 60 12 118/65 100 04/27/24 18:30 53 L 12 118/60 100 04/27/24 18:00 98.2 F 54 L 12 111/57 100 04/27/24 17:26 98.2 F 54 L 16 107/52 100 04/27/24 17:16 98.3 F 54 L 14 106/50 100 04/27/24 17:06 98.2 F 58 L 18 103/52 100 04/27/24 16:58 98.3 F 55 L 18 98 04/27/24 16:48 55 L 18 100/50 98 04/27/24 14:56 65 20 90/50 98 04/27/24 14:16 62 20 93/57 99 04/27/24 12:40 57 L 20 94/69 99 04/27/24 12:11 97.8 F 61 18 108/44 92 L Intake and Output 04/27/24 04/28/24 04/28/24 22:59 06:59 14:59 Intake Total 310 Balance 310 Intake: Blood Product 310 Rc As-1 Unit 310 [id number] Results - Lab Results Most recent lab results Calcium 6.8 mg/dL (8.4-10.2) L 04/28/24 06:38 Phosphorus 5.3 mg/dL (2.5-4.5) H 04/28/24 06:38 Magnesium 1.6 mg/dL (1.6-2.3) 04/28/24 06:38 04/28/24 06:38 04/28/24 06:38 Assessment and Plan Plan: Assessment: 1. End-stage renal disease maintained on hemodialysis on Friday schedule. 2. Chronic systolic CHF ejection fraction of less than 20% with aortic stenosis. Cardiology following. Repeat echo pending. 3. Chronic right lower extremity wound. 4. Chronic kidney disease mineral bone disease maintained on PhosLo. Phos phorus level 5.3. 5. Anemia of chronic kidney disease with component of acute blood loss. Status post blood transfusion. No active bleeding. Hemoglobin stable at 7.5. Plan: Hemodialysis tomorrow. Hep-Lock IV fluids. Follow-up echocardiogram. Add Aranesp. Monitor vancomycin levels. Dose to be adjusted for renal function. Replace magnesium. Thank you for the consultation. I will continue to follow the patient with you during his hospital stay.
--- NOTE | 2024-04-28 10:33 | P.CONS ---
History of Present Illness - Reason for Consult Consult date: 04/28/24 wound care - History of Present Illness This is an 78-year-old patient known to the wound care center who follows with Dr. Chowdhury weekly with multiple open ulcerations. Patient has been seen in the emergency department at this time. Patient has a right lower extremity ulceration with muscle involvement left hand second digit ulceration with fat layer involvement and a right lateral knee ulceration. Original cause of wound was Gradually Appeared. The date acquired was: 03/31/2024. The wound has been in treatment 2 weeks. The wound is currently classified as a Full Thickness With Exposed Support Structures wound with etiology of To be determined and is located on the Right,Anterior Lower Leg. The wound measures 2.5cm length x 1.6cm width x 0.3cm depth; 3.142cm^2 area and 0.942cm^3 volume. There is Fat Layer (Subcutaneous Tissue) exposed. There is no tunneling or undermining noted. There is a medium amount of serosanguineous drainage noted. The wound margin is thickened. There is small (1-33%) red granulation within the wound bed. There is a large (67-100%) amount of necrotic tissue within the wound bed including Eschar and Adherent Slough. The periwound skin appearance exhibited: Scarring, Erythema. The periwound skin appearance did not exhibit: Callus, Crepitus, Excoriation, Induration, Rash, Dry/Scaly, Maceration, Atrophie Aidee, Cyanosis, Ecchymosis, Hemosiderin Staining, Mottled, Pallor, Rubor. The surrounding wound skin color is noted with erythema which is circumferential. Periwound temperature was noted as No Abnormality. Original cause of wound was Gradually Appeared. The date acquired was: 03/31/2024. The wound has been in treatment 2 weeks. The wound is currently classified as a Partial Thickness wound with etiology of Trauma, Other and is located on the Left Hand - 2nd Digit. The wound measures 1cm length x 0.8cm width x 0.1cm depth; 0.628cm^2 area and 0.063cm^3 volume. There is Fat Layer (Subcutaneous Tissue) exposed. There is no tunneling or undermining noted. There is a medium amount of serosanguineous drainage noted. The wound margin is distinct with the outline attached to the wound base. There is large (67-100%) red granulation within the wound bed. There is a small (1-33%) amount of necrotic tissue within the wound bed including Adherent Slough. The periwound skin appearance exhibited: Scarring, Erythema. The periwound skin appearance did not exhibit: Callus, Crepitus, Excoriation, Induration, Rash, Dry/Scaly, Maceration, Atrophie [place], Cyanosis, Ecchymosis, Hemosiderin Staining, Mottled, Pallor, Rubor. The surrounding wound skin color is noted with erythema which is circumferential. Periwound temperature was noted as No Abnormality. Original cause of wound was Gradually Appeared. The date acquired was: 11/10/2023. The wound has been in treatment 14 weeks. The wound is currently classified as a Full Thickness Without Exposed Support Structures wound with etiology of Trauma, Other and is located on the Right,Lateral Knee. The wound measures 0.6cm length x 0.6cm width x 0.1cm depth; 0.283cm^2 area and 0.028cm^3 volume. There is Fat Layer (Subcutaneous Tissue) exposed. There is no tunneling or undermining noted. There is a none present amount of drainage noted. The wound margin is distinct with the outline attached to the wound base. There is medium (34-66%) pink granulation within the wound bed. There is a medium (34-66%) amount of necrotic tissue within the wound bed including Adherent Slough. The periwound skin appearance exhibited: Scarring. The periwound skin appearance did not exhibit: Callus, Crepitus, Excoriation, Induration, Rash, Dry/Scaly, Maceration, Atrophie [place], Cyanosis, Ecchymosis, Hemosiderin Staining, Mottled, Rubor, Erythema. Periwound temperature was noted as No Abnormality. Review Of Systems: Constitutional: No fever, no chills, no night sweats. No weight change. No weakness, fatigue or lethargy. No daytime sleepiness. Integumentary:reports wounds, no lesions. No rash or pruritus. No unusual bruising. No change in hair or nails. Physical exam: General Appearance: Alert, cooperative, no distress, appears stated age. Skin: See HPI all other Skin color, texture, tugor normal, no rashes or lesions. Neurologic: Alert oriented x3 Assessment: 1. Nonhealing ulceration of other part of right lower extremity with necrosis of muscle 2. Nonhealing ulcer of right knee with fat layer exposure 3. Nonhealing ulceration of other site with fat layer exposure Plan: 1.Apply santyl, saline moist gauze, dry gauze, rolled gauze and secure with tape. 2. Right hand: Apply collagen, saline moist gauze, dry gauze, rolled gauze and secure with tape. Right lateral knee :Apply collagen, saline moist gauze, dry gauze, and rolled gauze. Secure with tape. 3. Return to the wound care center May 05 at 10:15 Thank you for the consultation any questions please contact the wound care center DNP note has been reviewed and discussed with Dr. Chowdhury and the impression and plan of care has been directed as dictated. 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%, history of renal transplant and 2 in 1992 from a donor and in 1995 from a living donor, history of neck fracture, history of Covid 19 infection, severe aortic stenosis, anemia of chronic disease neuropathy, dialysis Friday History of Any Multi-Drug Resistant Organisms: MRSA Year Discovered:: 03/19/24 MDRO Source:: rt knee, blood Past Surgical History: Appendectomy Additional Past Surgical History / Comment(s): Kidney transplant in 07/28/1992 and 1995 and 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 Father Family Medical History: CVA/TIA Additional Family Medical History / Comment(s): of stroke. Medications and Allergies Home Medications Medication Instructions Recorded Confirmed Type [place]-3/Dha/Epa/Fish Oil [Fish Oil 1 cap PO DAILY 01/29/22 04/27/24 History 1,000 mg Softgel] Isosorbide Mononitrate ER [Imdur] 30 mg PO DAILY 01/30/22 04/27/24 History rOPINIRole HCL [Requip] 2 mg PO BID 05/01/22 04/27/24 History Metoprolol Succinate (ER) [Toprol 25 mg PO DAILY #30 tab 06/26/22 04/27/24 Rx XL] Bumetanide [BUMEX] 4 mg PO DAILY 08/16/22 04/27/24 History Calcium Acetate [PhosLo] 1,334 mg PO TID-W/MEALS 08/16/22 04/27/24 History allopurinoL [Zyloprim] 100 mg PO DAILY 02/12/23 04/27/24 History oxyCODONE-APAP 5-325MG [Percocet 1 - 1.5 tab PO TID PRN 02/12/23 04/27/24 History 5-325 mg] Midodrine [ProAmatine] 5 mg PO AC-BID PRN 09/25/23 04/27/24 History Carboxymethylcellulose Sodium 1 drop BOTH EYES TID 03/19/24 04/27/24 History [Refresh Tears] Cholecalciferol (Vitamin D3) 50 mcg PO DAILY 03/19/24 04/27/24 History [Vitamin D3 (50 Mcg = 2000 Iu)] Lidocaine 5% Oint [Xylocaine 5% 1 applic TOPICAL DIRECTED PRN 03/19/24 04/27/24 History Oint] PARoxetine [Paxil] 10 mg PO DAILY 03/19/24 04/27/24 History Aspirin 81 mg PO DAILY #60 tab 03/22/24 04/27/24 Rx Atorvastatin [Lipitor] 80 mg PO HS #60 tab 03/22/24 04/27/24 Rx Allergies Allergy/AdvReac Type Severity Reaction Status Date / Time losartan Allergy Intermediate Swelling Verified 04/27/24 12:47 Aminoglycosides Allergy Unknown Unknown Verified 04/27/24 12:47 REINIER Inhibitors Allergy Unknown Verified 04/27/24 12:47 enalapril Allergy Swelling Verified 04/27/24 12:47 enalaprilat [From Vasotec] Allergy Swelling Verified 04/27/24 12:47 ibuprofen Allergy Unknown Verified 04/27/24 12:47 lisinopril Allergy Swelling Verified 04/27/24 12:47 vancomycin Allergy Unknown Verified 04/27/24 12:47 vitamin A Allergy Unknown Verified 04/27/24 12:47 gabapentin AdvReac Hallucinati Verified 04/27/24 12:47 ons/Nightma res Physical Exam Vitals: Vital Signs Temp Pulse Resp BP Pulse Ox 04/28/24 10:08 55 L 20 107/62 04/28/24 08:12 98.4 F 62 20 117/56 100 04/28/24 06:00 60 15 115/60 100 04/28/24 05:00 60 15 109/61 100 04/28/24 04:00 59 L 13 114/59 04/28/24 03:00 58 L 12 106/73 04/28/24 02:00 52 L 12 107/55 04/28/24 01:00 60 12 107/64 100 04/28/24 00:00 55 L 18 106/50 100 04/27/24 23:00 57 L 14 113/64 100 04/27/24 22:21 58 L 18 119/39 100 04/27/24 21:28 57 L 16 109/57 100 04/27/24 19:07 98.3 F 60 12 118/65 100 04/27/24 18:30 53 L 12 118/60 100 04/27/24 18:00 98.2 F 54 L 12 111/57 100 04/27/24 17:26 98.2 F 54 L 16 107/52 100 04/27/24 17:16 98.3 F 54 L 14 106/50 100 04/27/24 17:06 98.2 F 58 L 18 103/52 100 04/27/24 16:58 98.3 F 55 L 18 98 04/27/24 16:48 55 L 18 100/50 98 04/27/24 14:56 65 20 90/50 98 04/27/24 14:16 62 20 93/57 99 04/27/24 12:40 57 L 20 94/69 99 04/27/24 12:11 97.8 F 61 18 108/44 92 L Intake and Output 04/27/24 04/28/24 04/28/24 22:59 06:59 14:59 Intake Total 310 Balance 310 Intake: Blood Product 310 Rc As-1 Unit 310 [id number] Results CBC & Chem 7: 04/28/24 06:38 04/28/24 06:38 Labs: Abnormal Lab Results - Last 24 Hours (Table) 04/27/24 04/27/24 04/27/24 Range/Units 12:19 12:19 12:19 RBC 2.13 L (4.30-5.90) m/uL Hgb 7.4 L D (13.0-17.5) gm/dL Hct 23.0 L (39.0-53.0) % MCV 107.8 H (80.0-100.0) fL RDW 16.4 H (11.5-15.5) % Plt Count 90 L (150-450) k/uL Lymphocytes # (1.0-4.8) k/uL Lymphocytes # (Manual) 0.62 L (1.0-4.8) k/uL Macrocytosis Marked A INR 1.2 H (<1.2) Sodium (137-145) mmol/L Chloride (98-107) mmol/L Carbon Dioxide 34 H (22-30) mmol/L BUN 24 H (9-20) mg/dL Creatinine 2.62 H (0.66-1.25) mg/dL Glucose (74-99) mg/dL Calcium 7.6 L (8.4-10.2) mg/dL Phosphorus (2.5-4.5) mg/dL Total Bilirubin (0.2-1.3) mg/dL AST 65 H (17-59) U/L Alkaline Phosphatase 219 H (38-126) U/L Troponin I (0.000-0.034) ng/mL C-Reactive Protein (<1.0) mg/dL Total Protein (6.3-8.2) g/dL Albumin 3.4 L (3.5-5.0) g/dL Crossmatch 04/27/24 04/27/24 04/27/24 Range/Units 12:19 14:54 15:29 RBC (4.30-5.90) m/uL Hgb (13.0-17.5) gm/dL Hct (39.0-53.0) % MCV (80.0-100.0) fL RDW (11.5-15.5) % Plt Count (150-450) k/uL Lymphocytes # (1.0-4.8) k/uL Lymphocytes # (Manual) (1.0-4.8) k/uL Macrocytosis INR (<1.2) Sodium (137-145) mmol/L Chloride (98-107) mmol/L Carbon Dioxide (22-30) mmol/L BUN (9-20) mg/dL Creatinine (0.66-1.25) mg/dL Glucose (74-99) mg/dL Calcium (8.4-10.2) mg/dL Phosphorus (2.5-4.5) mg/dL Total Bilirubin (0.2-1.3) mg/dL AST (17-59) U/L Alkaline Phosphatase (38-126) U/L Troponin I 0.158 H* 0.143 H* (0.000-0.034) ng/mL C-Reactive Protein (<1.0) mg/dL Total Protein (6.3-8.2) g/dL Albumin (3.5-5.0) g/dL Crossmatch See Detail 04/27/24 04/27/24 04/27/24 Range/Units 18:03 18:48 19:56 RBC 2.14 L (4.30-5.90) m/uL Hgb 7.4 L (13.0-17.5) gm/dL Hct 22.9 L (39.0-53.0) % MCV 107.1 H (80.0-100.0) fL RDW 17.4 H (11.5-15.5) % Plt Count 66 L (150-450) k/uL Lymphocytes # 0.5 L (1.0-4.8) k/uL Lymphocytes # (Manual) (1.0-4.8) k/uL Macrocytosis Marked A INR (<1.2) Sodium (137-145) mmol/L Chloride (98-107) mmol/L Carbon Dioxide (22-30) mmol/L BUN (9-20) mg/dL Creatinine (0.66-1.25) mg/dL Glucose (74-99) mg/dL Calcium (8.4-10.2) mg/dL Phosphorus (2.5-4.5) mg/dL Total Bilirubin (0.2-1.3) mg/dL AST (17-59) U/L Alkaline Phosphatase (38-126) U/L Troponin I 0.137 H* (0.000-0.034) ng/mL C-Reactive Protein 1.9 H (<1.0) mg/dL Total Protein (6.3-8.2) g/dL Albumin (3.5-5.0) g/dL Crossmatch 04/28/24 04/28/24 Range/Units 06:38 06:38 RBC 2.15 L (4.30-5.90) m/uL Hgb 7.5 L (13.0-17.5) gm/dL Hct 23.0 L (39.0-53.0) % MCV 106.8 H (80.0-100.0) fL RDW 17.4 H (11.5-15.5) % Plt Count 71 L (150-450) k/uL Lymphocytes # 0.6 L (1.0-4.8) k/uL Lymphocytes # (Manual) (1.0-4.8) k/uL Macrocytosis Marked A INR (<1.2) Sodium 136 L (137-145) mmol/L Chloride 97 L (98-107) mmol/L Carbon Dioxide (22-30) mmol/L BUN 39 H (9-20) mg/dL Creatinine 3.51 H (0.66-1.25) mg/dL Glucose 72 L (74-99) mg/dL Calcium 6.8 L (8.4-10.2) mg/dL Phosphorus 5.3 H (2.5-4.5) mg/dL Total Bilirubin 1.4 H (0.2-1.3) mg/dL AST (17-59) U/L Alkaline Phosphatase 214 H (38-126) U/L Troponin I (0.000-0.034) ng/mL C-Reactive Protein (<1.0) mg/dL Total Protein 6.0 L (6.3-8.2) g/dL Albumin 3.0 L (3.5-5.0) g/dL Crossmatch Assessment and Plan (1) 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
[2024-04-28] MEDS: MAGNESIUM SULFATE-D5W PMX 1 GM in DEXTROSE/WATER 1 100ML.BAG IVPB SCH (11:16)
[2024-04-28] MEDS: DARBEPOETIN ALFA 40 MCG/0.4 ML SYRINGE SQ SCH (12:04)
[2024-04-28 13:08] LABS: Anisocytosis Slight; Basophils % (A) 0 %; Eosinophils # (A) 0.1 k/uL (0-0.7); Eosinophils % (A) 2 %; HCT 22.4 % (39.0-53.0); HGB 7.4 gm/dL (13.0-17.5); Hypochromasia Slight; Lymphocytes # (A) 0.5 k/uL (1.0-4.8); Lymphocytes % (A) 9 %; MCV 105.8 fL (80.0-100.0); Macrocytosis Marked; Mean Platelet Volume 11.6; Monocytes # (A) 0.3 k/uL (0-1.0); Monocytes % (A) 6 %; Neutrophils # (A) 4.6 k/uL (1.3-7.7); Neutrophils % (A) 82 %; Poikilocytosis Slight; RBC 2.12 m/uL (4.30-5.90); RDW 18.2 % (11.5-15.5); WBC 5.7 k/uL (3.8-10.6)
[2024-04-28 13:11] LABS: % Iron Saturation 37.27 (15.00-50.00)
[2024-04-28 13:14] LABS: Platelet Count 79 k/uL (150-450)
--- NOTE | 2024-04-28 14:05 | P.CONS ---
History of Present Illness - Reason for Consult Consult date: 04/28/24 Anemia Requesting physician: Dalton Overton - Chief Complaint Altered mental status changes - History of Present Illness This is a pleasant 78-year-old male with multiple comorbidities including hyperlipidemia, anemia of chronic disease, thrombocytopenia, severe aortic stenosis, end-stage renal disease on dialysis status post 2 kidney transplants, CHF, and chronic lower extremity wounds presented for altered mental status changes and weakness. Patient is a poor historian but according to patient's chart he was at dialysis and stated that he was not feeling well and wanted to come to the emergency department that he felt that he was getting confused. Patient was noted to be anemic on admission and vascular surgery was consulted for anemia. Patient denies any blood in his stool or black stool. He is not on any anticoagulation. He does take an 81 mg aspirin daily. Denies any history of GI bleed. Denies any history of peptic ulcer disease. States last colonoscopy about 30 years ago. Labs: WBC 5.5 hemoglobin 7.5 hematocrit 23 platelet count 71,000 sodium 136 potassium 4.1 BUN 39 creatinine 3.5 iron 82 TIBC 228 saturation 37 ferritin 776 total bilirubin 1.4 AST 58 ALT 44 alkaline phosphatase 214 vitamin B12 896 folate 23 Review of Systems REVIEW OF SYSTEMS: CARDIOPULMONARY: No chest pain or shortness of breath. Gastrointestinal: No abdominal pain. No nausea or vomiting. No hematemesis, coffee-ground emesis. No rectal bleeding, or melena. GENITOURINARY: No dysuria or hematuria. MUSCULOSKELETAL: Reports normal range of motion. SKIN: No rashes. No jaundice. ENDOCRINE: No chills, fevers. No excessive weight gain or loss. No polydipsia or polyuria. PSYCHIATRIC: Unremarkable. NEUROLOGY: Confusion. Denies dizziness, headache. ENT: Vision unremarkable. CONSTITUTIONAL: No recent weight loss. No fever, chills, night sweats. Weakness and fatigue. 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%, history of renal transplant and 2 in 1992 from a donor and in 1995 from a living donor, history of neck fracture, history of Covid 19 infection, severe aortic stenosis, anemia of chronic disease neuropathy, dialysis Friday History of Any Multi-Drug Resistant Organisms: MRSA Year Discovered:: 03/19/24 MDRO Source:: rt knee, blood Past Surgical History: Appendectomy Additional Past Surgical History / Comment(s): Kidney transplant in 07/28/1992 and 1995 and 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 Father Family Medical History: CVA/TIA Additional Family Medical History / Comment(s): of stroke. Medications and Allergies Home Medications Medication Instructions Recorded Confirmed Type Zirconia-3/Dha/Epa/Fish Oil [Fish Oil 1 cap PO DAILY 01/29/22 04/27/24 History 1,000 mg Softgel] Isosorbide Mononitrate ER [Imdur] 30 mg PO DAILY 01/30/22 04/27/24 History rOPINIRole HCL [Requip] 2 mg PO BID 05/01/22 04/27/24 History Metoprolol Succinate (ER) [Toprol 25 mg PO DAILY #30 tab 06/26/22 04/27/24 Rx XL] Bumetanide [BUMEX] 4 mg PO DAILY 08/16/22 04/27/24 History Calcium Acetate [PhosLo] 1,334 mg PO TID-W/MEALS 08/16/22 04/27/24 History allopurinoL [Zyloprim] 100 mg PO DAILY 02/12/23 04/27/24 History oxyCODONE-APAP 5-325MG [Percocet 1 - 1.5 tab PO TID PRN 02/12/23 04/27/24 History 5-325 mg] Midodrine [ProAmatine] 5 mg PO AC-BID PRN 09/25/23 04/27/24 History Carboxymethylcellulose Sodium 1 drop BOTH EYES TID 03/19/24 04/27/24 History [Refresh Tears] Cholecalciferol (Vitamin D3) 50 mcg PO DAILY 03/19/24 04/27/24 History [Vitamin D3 (50 Mcg = 2000 Iu)] Lidocaine 5% Oint [Xylocaine 5% 1 applic TOPICAL DIRECTED PRN 03/19/24 04/27/24 History Oint] PARoxetine [Paxil] 10 mg PO DAILY 03/19/24 04/27/24 History Aspirin 81 mg PO DAILY #60 tab 03/22/24 04/27/24 Rx Atorvastatin [Lipitor] 80 mg PO HS #60 tab 03/22/24 04/27/24 Rx Allergies Allergy/AdvReac Type Severity Reaction Status Date / Time losartan Allergy Intermediate Swelling Verified 04/27/24 12:47 Aminoglycosides Allergy Unknown Unknown Verified 04/27/24 12:47 REINIER Inhibitors Allergy Unknown Verified 04/27/24 12:47 enalapril Allergy Swelling Verified 04/27/24 12:47 enalaprilat [From Vasotec] Allergy Swelling Verified 04/27/24 12:47 ibuprofen Allergy Unknown Verified 04/27/24 12:47 lisinopril Allergy Swelling Verified 04/27/24 12:47 vancomycin Allergy Unknown Verified 04/27/24 12:47 vitamin A Allergy Unknown Verified 04/27/24 12:47 gabapentin AdvReac Hallucinati Verified 04/27/24 12:47 ons/Nightma res Physical Exam Vitals: Vital Signs Temp Pulse Resp BP Pulse Ox 04/28/24 08:12 98.4 F 62 20 117/56 100 04/28/24 06:00 60 15 115/60 100 04/28/24 05:00 60 15 109/61 100 04/28/24 04:00 59 L 13 114/59 04/28/24 03:00 58 L 12 106/73 04/28/24 02:00 52 L 12 107/55 04/28/24 01:00 60 12 107/64 100 04/28/24 00:00 55 L 18 106/50 100 04/27/24 23:00 57 L 14 113/64 100 04/27/24 22:21 58 L 18 119/39 100 04/27/24 21:28 57 L 16 109/57 100 04/27/24 19:07 98.3 F 60 12 118/65 100 04/27/24 18:30 53 L 12 118/60 100 04/27/24 18:00 98.2 F 54 L 12 111/57 100 04/27/24 17:26 98.2 F 54 L 16 107/52 100 04/27/24 17:16 98.3 F 54 L 14 106/50 100 04/27/24 17:06 98.2 F 58 L 18 103/52 100 04/27/24 16:58 98.3 F 55 L 18 98 04/27/24 16:48 55 L 18 100/50 98 04/27/24 14:56 65 20 90/50 98 04/27/24 14:16 62 20 93/57 99 04/27/24 12:40 57 L 20 94/69 99 04/27/24 12:11 97.8 F 61 18 108/44 92 L Intake and Output 04/27/24 04/28/24 04/28/24 22:59 06:59 14:59 Intake Total 310 Balance 310 Intake: Blood Product 310 Rc As-1 Unit 310 [id number] General appearance: The patient is alert, oriented, appears in no acute distress. HET: Head is normocephalic and atraumatic. Conjunctiva pink. Sclera anicteric. Neck: Supple without lymphadenopathy. Trachea midline. Heart: Regular. Lungs: Equal expansion, normal respiratory effort. Abdomen: Soft, nontender, nondistended. Skin: No rashes. No jaundice. Extremities: Normal skin color and turgor. No pedal edema. Neurological: No focal deficits. Alert and oriented x3. Results CBC & Chem 7: 04/28/24 11:43 04/28/24 06:38 Labs: Abnormal Lab Results - Last 24 Hours (Table) 04/27/24 04/27/24 04/27/24 Range/Units 12:19 12:19 12:19 RBC 2.13 L (4.30-5.90) m/uL Hgb 7.4 L D (13.0-17.5) gm/dL Hct 23.0 L (39.0-53.0) % MCV 107.8 H (80.0-100.0) fL RDW 16.4 H (11.5-15.5) % Plt Count 90 L (150-450) k/uL Lymphocytes # (1.0-4.8) k/uL Lymphocytes # (Manual) 0.62 L (1.0-4.8) k/uL Macrocytosis Marked A INR 1.2 H (<1.2) Sodium (137-145) mmol/L Chloride (98-107) mmol/L Carbon Dioxide 34 H (22-30) mmol/L BUN 24 H (9-20) mg/dL Creatinine 2.62 H (0.66-1.25) mg/dL Glucose (74-99) mg/dL Calcium 7.6 L (8.4-10.2) mg/dL Phosphorus (2.5-4.5) mg/dL Total Bilirubin (0.2-1.3) mg/dL AST 65 H (17-59) U/L Alkaline Phosphatase 219 H (38-126) U/L Troponin I (0.000-0.034) ng/mL C-Reactive Protein (<1.0) mg/dL Total Protein (6.3-8.2) g/dL Albumin 3.4 L (3.5-5.0) g/dL Crossmatch 04/27/24 04/27/24 04/27/24 Range/Units 12:19 14:54 15:29 RBC (4.30-5.90) m/uL Hgb (13.0-17.5) gm/dL Hct (39.0-53.0) % MCV (80.0-100.0) fL RDW (11.5-15.5) % Plt Count (150-450) k/uL Lymphocytes # (1.0-4.8) k/uL Lymphocytes # (Manual) (1.0-4.8) k/uL Macrocytosis INR (<1.2) Sodium (137-145) mmol/L Chloride (98-107) mmol/L Carbon Dioxide (22-30) mmol/L BUN (9-20) mg/dL Creatinine (0.66-1.25) mg/dL Glucose (74-99) mg/dL Calcium (8.4-10.2) mg/dL Phosphorus (2.5-4.5) mg/dL Total Bilirubin (0.2-1.3) mg/dL AST (17-59) U/L Alkaline Phosphatase (38-126) U/L Troponin I 0.158 H* 0.143 H* (0.000-0.034) ng/mL C-Reactive Protein (<1.0) mg/dL Total Protein (6.3-8.2) g/dL Albumin (3.5-5.0) g/dL Crossmatch See Detail 04/27/24 04/27/24 04/27/24 Range/Units 18:03 18:48 19:56 RBC 2.14 L (4.30-5.90) m/uL Hgb 7.4 L (13.0-17.5) gm/dL Hct 22.9 L (39.0-53.0) % MCV 107.1 H (80.0-100.0) fL RDW 17.4 H (11.5-15.5) % Plt Count 66 L (150-450) k/uL Lymphocytes # 0.5 L (1.0-4.8) k/uL Lymphocytes # (Manual) (1.0-4.8) k/uL Macrocytosis Marked A INR (<1.2) Sodium (137-145) mmol/L Chloride (98-107) mmol/L Carbon Dioxide (22-30) mmol/L BUN (9-20) mg/dL Creatinine (0.66-1.25) mg/dL Glucose (74-99) mg/dL Calcium (8.4-10.2) mg/dL Phosphorus (2.5-4.5) mg/dL Total Bilirubin (0.2-1.3) mg/dL AST (17-59) U/L Alkaline Phosphatase (38-126) U/L Troponin I 0.137 H* (0.000-0.034) ng/mL C-Reactive Protein 1.9 H (<1.0) mg/dL Total Protein (6.3-8.2) g/dL Albumin (3.5-5.0) g/dL Crossmatch 04/28/24 04/28/24 Range/Units 06:38 06:38 RBC 2.15 L (4.30-5.90) m/uL Hgb 7.5 L (13.0-17.5) gm/dL Hct 23.0 L (39.0-53.0) % MCV 106.8 H (80.0-100.0) fL RDW 17.4 H (11.5-15.5) % Plt Count 71 L (150-450) k/uL Lymphocytes # 0.6 L (1.0-4.8) k/uL Lymphocytes # (Manual) (1.0-4.8) k/uL Macrocytosis Marked A INR (<1.2) Sodium 136 L (137-145) mmol/L Chloride 97 L (98-107) mmol/L Carbon Dioxide (22-30) mmol/L BUN 39 H (9-20) mg/dL Creatinine 3.51 H (0.66-1.25) mg/dL Glucose 72 L (74-99) mg/dL Calcium 6.8 L (8.4-10.2) mg/dL Phosphorus 5.3 H (2.5-4.5) mg/dL Total Bilirubin 1.4 H (0.2-1.3) mg/dL AST (17-59) U/L Alkaline Phosphatase 214 H (38-126) U/L Troponin I (0.000-0.034) ng/mL C-Reactive Protein (<1.0) mg/dL Total Protein 6.0 L (6.3-8.2) g/dL Albumin 3.0 L (3.5-5.0) g/dL Crossmatch Assessment and Plan (1) Anemia Narrative/Plan: 78-year-old gentleman with multiple comorbidities including end-stage renal disease on hemodialysis who presented to the emergency department with confusion and weakness sent from dialysis. This is a patient who has chronic anemia and chronic thrombocytopenia. Patient is without any signs of GI bleed. He is not on any anticoagulation. Anemia profile ordered and reviewed. Patient without iron deficiency anemia. Iron 82 ferritin 776. Likely anemia of chronic disease. No plans on endoscopic evaluation. Current Visit: Yes Status: Acute Code(s): D64.9 - ANEMIA, UNSPECIFIED SNOMED Code(s): 983350119 (2) End-stage renal disease on hemodialysis Current Visit: Yes Status: Acute Code(s): N18.6 - END STAGE RENAL DISEASE; Z99.2 - DEPENDENCE ON RENAL DIALYSIS SNOMED Code(s): 049432357 (3) Heart failure Current Visit: Yes Status: Acute Code(s): I50.9 - HEART FAILURE, UNSPECIFIED SNOMED Code(s): 61880170 (4) Wound of lower extremity Current Visit: Yes Status: Acute Code(s): S81.809A - UNSPECIFIED OPEN WOUND, UNSPECIFIED LOWER LEG, INIT ENCNTR SNOMED Code(s): 049045414 (5) Weakness Current Visit: Yes Status: Acute Code(s): R53.1 - WEAKNESS SNOMED Code(s): 92604884 (6) Thrombocytopenia Current Visit: Yes Status: Acute Code(s): D69.6 - THROMBOCYTOPENIA, UNSPECIFIED SNOMED Code(s): 888140180 Plan: 1. Continue symptomatic and supportive care 2. Anemia profile ordered 3. Daily CBC, transfuse for hemoglobin less than 7 4. Protonix 40 mg daily for GI prophylaxis 5. No plans on endoscopic evaluation at this time. Monitor for GI bleed. 6. Rest of medical management per primary medical team Thank you for this consultation, we will continue to follow. Dr. Cassandra Phillips I agree with the dictator's note, documented as a scribe by Jillian Dumont.
--- NOTE | 2024-04-28 14:22 | P.PN ---
Subjective Progress Note Date: 04/28/24 Patient is a 78-year-old male with hyperlipidemia, anemia of chronic disease, severe aortic stenosis, ESRD (status post kidney transplant x 2, on dialysis Friday weekly), reduced ejection fraction CHF (20 to 25% EF on echo done in June 2023), chronic wound on right lower extremity (being seen by wound care at home), and MRSA (from bacteremia, last infection 03/18 and was given vancomycin) who came in for altered mental status. Patient was a poor historian and information was also gathered from daughter and son who are at bedside. Per family members, patient was very tired and sleepy as he was being taken to dialysis today which was below his baseline. During dialysis, patient was informing RNs that he did not feel well and would like to go to the hospital as he was feeling like he was getting confused and generally weak. He also noted that his right eye had blurry vision, was painful and had excessive tearing. He denied fevers, sweats, nausea, vomiting, abdominal pain, chest pain, shortness of breath, calf tenderness, tremors, facial asymmetry, focal weakness, changes in speech, bleeding, bruising, recent travel, or sick contacts. Patient was recently admitted in 03/18 for cellulitis of right lower extremity, PAD of right lower extremity found on CT that was stable, and positive MRSA on blood cultures and was prescribed vancomycin on discharge given after dialysis but family members are not sure if the medication duration was completed. In the ER, chest x-ray showed bilateral pleural effusions and increased cardiac border. EKG showed sinus bradycardia rate of 54 with PVCs wide QRS left bundle branch block and left axis deviation QTc normal. WBC 6.2 hemoglobin 7.4 platelet count 90,000 sodium 137 potassium 4.7 bicarb 34 BUN 24 creatinine 2.62 calcium 7.6 alk phos 219 troponin 0.158 TSH 0.882 serum EtOH less than 10. On admission, patient was afebrile at 97.8 Fahrenheit pulse 61 respiratory rate 18 blood pressure 108/44 O2 saturation 99% at room air 04/28/2024 patient seen and examined at bedside. Patient is more awake and alert today but still reported weakness that is worse than baseline ADLs. WBC 5.5 hemoglobin 7.5 platelet count 71,000 ESR 14 sodium 137 potassium 4.1 BUN 39 creatinine 3.51 glucose 72 CRP 1.9 alk phos 214 mag 1.6 calcium 6.8 albumin 3 random vancomycin less than 5 Review of systems: Pertinent positives and negatives as discussed in HPI, a complete review of systems was performed and all other systems are negative. Physical examination: Vital signs reviewed General: non toxic, no distress, appears at stated age Derm: no unusual rashes/lesions, warm, right lower extremity wound with dressing clean and dry no erythema of surrounding skin Head: atraumatic, normocephalic, symmetric Eyes: EOMI, anicteric sclera, pupils unequal size, round, reactive to light ENT: Nose and ears atraumatic Neck: No cervical lymphadenopathy, trachea midline, supple, post-auricular mass near left Mouth: no lip lesion, mucus membranes dry Cardiovascular: S1S2 reg, 3/6 holosystolic murmur heard best at right 2nd ICS Lungs: CTA bilateral, no rhonchi, no rales, no accessory muscle use Abdominal: soft, nondistended, nontender to palpation, no guarding Ext: muscle strength 3 out 5 strength in bilateral upper extremities, 5 out of 5 in bilateral lower extremities grossly, no gross muscle atrophy, no contractures, positive dorsalis pedis pulse bilateral, bilateral +2 pitting edema Neuro: CN II-XI grossly intact, generalized weakness, no gross focal neuro deficits Psych: Alert and oriented x 3, appropriate affect and mood Assessment/Plan: 78 year old male who came in for altered mental status with possible multiple sources. #. Altered mental status with lethargy and weakness, consider MRSA bacteremia vs metabolic causes #. Acute anemia superimposed on anemia of chronic disease, r/o other causes Cardiac monitoring Fall precautions Echocardiogram pending CT head w/o contrast showed no acute processes or masses Serum phosphorus 5.3 which is elevated Serum 25 vitamin D oh hydroxylase pending CBC posttransfusion hemoglobin was 7.4. Repeat CBC this morning hemoglobin 7.5. Procalcitonin CBC and BMP at a.m. Blood cultures pending Urinalysis with reflex to culture Random Vancomycin level less than 5 Vancomycin IV dosed per pharmacy Received 1 unit packed RBC in the ED Per cardiology, consider ATA to evaluate aortic stenosis and cardiac catheterization for ischemic workup Per GI, iron studies ordered and pending #. ESRD on hemodialysis 3 times per week, at baseline Nephrology following #. Right lower extremity wound due to PAD Consult wound care Chronic Conditions: #. Reduced ejection fraction CHF, not in exacerbation, not on GDMT Resume home medications once reconciled F: 0.9% normal saline IVF 75 cc/h E: Replete as needed N: Clear liquid diet A: On fall precautions DVT ppx: Subcutaneous heparin every 8 hours GI ppx: Protonix 40 mg IV daily Dispo: The patient is admitted with an anticipated greater than than 2 midnight stay for evaluation of altered mental status CODE STATUS: DO NOT RESUSCITATE Discussed with: Patient, and patient's son and daughter Anticipated discharge place: Home Sandra Gomez MD PGY-1 IM Dictation was produced using [employer] dictation software. please excuse any grammatical, word or spelling errors. I saw and evaluated the patient during the westfall and critical portions of this encounter, and discussed the case in detail with the resident author of this note, I agree with the Assessment and Plan, and my changes, if any, are mentioned below. Continue IV antibiotics. Follow up cultures. Iron studies shows anemia of chronic disease. Cardiology plans for possible ATA + cardiac cath. Objective - Vital Signs Vital signs: Vital Signs Temp 98.3 F 04/27/24 19:07 Pulse 60 04/28/24 06:00 Resp 15 04/28/24 06:00 BP 115/60 04/28/24 06:00 Pulse Ox 100 04/28/24 06:00 FiO2 Intake & Output 04/27/24 04/28/24 04/28/24 18:59 06:59 18:59 Intake Total 0 310 Balance 0 310 Weight 68.039 kg Intake: Blood Product 0 310 Rc As-1 Unit 0 310 [id number] - Labs CBC & Chem 7: 04/28/24 11:43 04/28/24 06:38 Labs: Abnormal Lab Results - Last 24 Hours (Table) 04/27/24 04/27/24 04/27/24 Range/Units 12:19 12:19 12:19 RBC 2.13 L (4.30-5.90) m/uL Hgb 7.4 L D (13.0-17.5) gm/dL Hct 23.0 L (39.0-53.0) % MCV 107.8 H (80.0-100.0) fL RDW 16.4 H (11.5-15.5) % Plt Count 90 L (150-450) k/uL Lymphocytes # (1.0-4.8) k/uL Lymphocytes # (Manual) 0.62 L (1.0-4.8) k/uL Macrocytosis Marked A INR 1.2 H (<1.2) Carbon Dioxide 34 H (22-30) mmol/L BUN 24 H (9-20) mg/dL Creatinine 2.62 H (0.66-1.25) mg/dL Calcium 7.6 L (8.4-10.2) mg/dL AST 65 H (17-59) U/L Alkaline Phosphatase 219 H (38-126) U/L Troponin I (0.000-0.034) ng/mL C-Reactive Protein (<1.0) mg/dL Albumin 3.4 L (3.5-5.0) g/dL Crossmatch 04/27/24 04/27/24 04/27/24 Range/Units 12:19 14:54 15:29 RBC (4.30-5.90) m/uL Hgb (13.0-17.5) gm/dL Hct (39.0-53.0) % MCV (80.0-100.0) fL RDW (11.5-15.5) % Plt Count (150-450) k/uL Lymphocytes # (1.0-4.8) k/uL Lymphocytes # (Manual) (1.0-4.8) k/uL Macrocytosis INR (<1.2) Carbon Dioxide (22-30) mmol/L BUN (9-20) mg/dL Creatinine (0.66-1.25) mg/dL Calcium (8.4-10.2) mg/dL AST (17-59) U/L Alkaline Phosphatase (38-126) U/L Troponin I 0.158 H* 0.143 H* (0.000-0.034) ng/mL C-Reactive Protein (<1.0) mg/dL Albumin (3.5-5.0) g/dL Crossmatch See Detail 04/27/24 04/27/24 04/27/24 Range/Units 18:03 18:48 19:56 RBC 2.14 L (4.30-5.90) m/uL Hgb 7.4 L (13.0-17.5) gm/dL Hct 22.9 L (39.0-53.0) % MCV 107.1 H (80.0-100.0) fL RDW 17.4 H (11.5-15.5) % Plt Count 66 L (150-450) k/uL Lymphocytes # 0.5 L (1.0-4.8) k/uL Lymphocytes # (Manual) (1.0-4.8) k/uL Macrocytosis Marked A INR (<1.2) Carbon Dioxide (22-30) mmol/L BUN (9-20) mg/dL Creatinine (0.66-1.25) mg/dL Calcium (8.4-10.2) mg/dL AST (17-59) U/L Alkaline Phosphatase (38-126) U/L Troponin I 0.137 H* (0.000-0.034) ng/mL C-Reactive Protein 1.9 H (<1.0) mg/dL Albumin (3.5-5.0) g/dL Crossmatch 04/28/24 Range/Units 06:38 RBC 2.15 L (4.30-5.90) m/uL Hgb 7.5 L (13.0-17.5) gm/dL Hct 23.0 L (39.0-53.0) % MCV 106.8 H (80.0-100.0) fL RDW 17.4 H (11.5-15.5) % Plt Count 71 L (150-450) k/uL Lymphocytes # 0.6 L (1.0-4.8) k/uL Lymphocytes # (Manual) (1.0-4.8) k/uL Macrocytosis Marked A INR (<1.2) Carbon Dioxide (22-30) mmol/L BUN (9-20) mg/dL Creatinine (0.66-1.25) mg/dL Calcium (8.4-10.2) mg/dL AST (17-59) U/L Alkaline Phosphatase (38-126) U/L Troponin I (0.000-0.034) ng/mL C-Reactive Protein (<1.0) mg/dL Albumin (3.5-5.0) g/dL Crossmatch
[2024-04-28] MEDS: COLLAGENASE 250 UNIT/GM OINTMENT 30 GM TUBE TOPICAL SCH (16:30)
[2024-04-28] MEDS: HEPARIN SODIUM,PORCINE 5,000 UNIT/ML 1 ML VIAL SQ SCH (16:31)
--- NOTE | 2024-04-28 18:03 | CA ---
Transthoracic Echo Report Name: John Benedict Age: 78 Gender: M : 1945 Exam Date: 04/28/2024 07:35 Exam Location: [facility] Ht (in): 69 Wt (lb): 150 Ordering Physician: Sandra Gomez MD Attending/Referring Phys: Stock House Worker Peri Balderas RDCS Procedure CPT: Indications: CHF and aortic stenosis Cardiac Hx: Technical Quality: Good Contrast 1: Total Dose (mL): Contrast 2: Total Dose (mL): MEASUREMENTS (Male / Female) Normal Values 2D ECHO LV Diastolic Diameter PLAX 5.4 cm 4.2 - 5.9 / 3.9 - 5.3 cm LV Systolic Diameter PLAX 4.3 cm IVS Diastolic Thickness 1.0 cm 0.6 - 1.0 / 0.6 - 0.9 cm LVPW Diastolic Thickness 1.3 cm 0.6 - 1.0 / 0.6 - 0.9 cm LV Relative Wall Thickness 0.4 LVOT Diameter 2.3 cm LV Diastolic Volume MOD BP 222.0 cm??? 67 - 155 / 56 - 104 cm??? LV Systolic Volume MOD BP 147.6 cm??? 22 - 58 / 19 - 49 cm??? LV Ejection Fraction MOD BP 33.5 % >= 55 % LV Cardiac Index MOD BP 2412.1 cm???/min???m??? LV Diastolic Volume MOD 4C 194.4 cm??? LV Systolic Volume MOD 4C 141.2 cm??? LV Ejection Fraction MOD 4C 27.4 % LV Cardiac Index MOD 4C 1725.6 cm???/min???m??? LV Diastolic Length 4C 9.5 cm LV Systolic Length 4C 8.4 cm LV Diastolic Volume MOD 2C 237.3 cm??? LV Systolic Volume MOD 2C 142.8 cm??? LV Ejection Fraction MOD 2C 39.8 % LV Cardiac Index MOD 2C 3064.5 cm???/min???m??? LV Diastolic Length 2C 10.1 cm LV Systolic Length 2C 9.1 cm LA Volume 137.1 cm??? 18 - 58 / 22 - 52 cm??? LA Volume Index 75.3 cm???/m??? 16 - 28 cm???/m??? DOPPLER AV Peak Velocity 406.6 cm/s AV Peak Gradient 66.1 mmHg AV Mean Velocity 291.4 cm/s AV Mean Gradient 38.3 mmHg AV Velocity Time Integral 104.5 cm LVOT Peak Velocity 119.4 cm/s LVOT Peak Gradient 5.7 mmHg LVOT Velocity Time Integral 28.4 cm LVOT Stroke Volume 113.9 cm??? LVOT Stroke Volume Index 62.3 ml/m??? LVOT Cardiac Index 3694.1 cm???/min???m??? AV Area Cont Eq vti 1.1 cm??? AV Area Cont Eq pk 1.2 cm??? MV Area PHT 2.3 cm??? Mitral E Point Velocity 121.1 cm/s Mitral A Point Velocity 45.1 cm/s Mitral E to A Ratio 2.7 MV Deceleration Time 333.5 ms TR Peak Velocity 359.1 cm/s TR Peak Gradient 51.6 mmHg Right Atrial Pressure 20.0 mmHg Pulmonary Artery Systolic Pressu 71.6 mmHg Right Ventricular Systolic Press 71.6 mmHg PV Peak Velocity 133.4 cm/s PV Peak Gradient 7.1 mmHg FINDINGS Left Ventricle Left ventricular ejection fraction is estimated at 30-35 %. Severely increased left ventricular diastolic volume. Severely increased left ventricular systolic volume. Moderately decreased left ventricular ejection fraction. Global hypokinesis. Right Ventricle Severe right ventricular dilatation with moderately reduced function. Severe pulmonary hypertension. Right Atrium Severe right atrial dilatation. Left Atrium Severely increased left atrial volume. Moderately increased left atrial area. Mitral Valve Mitral valve thickened. Mitral annular calcification. No evidence for mitral valve prolapse. No mitral stenosis. [id number] mitral regurgitation. Aortic Valve Trileaflet aortic valve. Severe aortic stenosis. Mild aortic regurgitation. Tricuspid Valve Structurally normal tricuspid valve. No tricuspid stenosis. Severe tricuspid regurgitation. Pulmonic Valve Structurally normal pulmonic valve. No pulmonic stenosis. [id number] pulmonic regurgitation. Pericardium No pericardial effusion. Left pleural effusion. Aorta Aortic annulus normal. CONCLUSIONS LVEF 30 to 35% Dilated LV cavity. Global hypokinesia. Moderate concentric LVH Grade 3 diastolic function Severe biatrial dilatation Dilated RV with reduced systolic function. Severe pulmonary hypertension with mean gradient 71 mmHg Severe aortic stenosis mean gradient 38 mmHg, with evidence of low flow state. Calcified thickened trileaflet valve. Previewed by: Dr Nirmal London (Electronically Signed) Final Date: 28 April 2024 18:02
[2024-04-28] MEDS: VANCOMYCIN 1,250 MG in SODIUM CHLORIDE 0.9% 250 ML IVPB ONE (23:10)
[2024-04-29 07:11] LABS: Anisocytosis Slight; Basophils % (A) 1 %; Eosinophils # (A) 0.1 k/uL (0-0.7); Eosinophils % (A) 3 %; HCT 24.1 % (39.0-53.0); HGB 7.7 gm/dL (13.0-17.5); Hypochromasia Moderate; Lymphocytes # (A) 0.6 k/uL (1.0-4.8); Lymphocytes % (A) 12 %; MCH 34.3 pg (25.0-35.0); MCV 107.1 fL (80.0-100.0); Macrocytosis Marked; Mean Platelet Volume 11.1; Monocytes # (A) 0.4 k/uL (0-1.0); Monocytes % (A) 8 %; Neutrophils # (A) 3.4 k/uL (1.3-7.7); Neutrophils % (A) 74 %; Platelet Count 78 k/uL (150-450); RBC 2.25 m/uL (4.30-5.90); RDW 17.2 % (11.5-15.5); WBC 4.6 k/uL (3.8-10.6)
--- NOTE | 2024-04-29 11:17 | P.PN ---
Subjective Patient is seen in follow-up for end-stage renal disease. Tolerating dialysis well. Mentation improved. Hemodynamically stable. Vital signs are stable. General: No acute distress. HEENT: Head exam is unremarkable. LUNGS: No audible rhonchi or wheezes. HEART: Rate and Rhythm are regular. ABDOMEN: Nontender. EXTREMITITES: Right lower extremity wound dressing noted. No drainage. No edema. Objective - Vital Signs Vital signs: Vital Signs Temp 97.6 F 04/29/24 07:30 Pulse 58 L 04/29/24 07:45 Resp 16 04/29/24 07:45 BP 115/61 04/29/24 07:30 Pulse Ox 100 04/29/24 07:30 FiO2 Intake & Output 04/28/24 04/29/24 04/29/24 18:59 06:59 18:59 Intake Total 450 Balance 450 Weight 68.039 kg 64.8 kg Intake: Oral 450 Other: # Voids 1 - Labs CBC & Chem 7: 04/29/24 06:41 04/28/24 06:38 Labs: Abnormal Lab Results - Last 24 Hours (Table) 04/28/24 04/28/24 04/29/24 Range/Units 06:38 11:43 06:41 RBC 2.12 L 2.25 L (4.30-5.90) m/uL Hgb 7.4 L 7.7 L (13.0-17.5) gm/dL Hct 22.4 L 24.1 L (39.0-53.0) % MCV 105.8 H 107.1 H (80.0-100.0) fL RDW 18.2 H 17.2 H (11.5-15.5) % Plt Count 79 L 78 L (150-450) k/uL Lymphocytes # 0.5 L 0.6 L (1.0-4.8) k/uL Macrocytosis Marked A Marked A TIBC 220 L (228-460) UG/DL Transferrin 157.0 L (204.0-354.0) mg/dL Ferritin 776.0 H (22.0-322.0) ng/mL Microbiology - Last 24 Hours (Table) 04/27/24 18:52 Blood Culture - Preliminary Blood Assessment and Plan Plan: Assessment: 1. End-stage renal disease maintained on hemodialysis on Friday schedule. 2. Chronic systolic CHF ejection fraction of 30 to 35% with mild to moderate mitral regurgitation, pulmonic regurgitation and severe aortic stenosis. Cardiology following. 3. Chronic right lower extremity wound. 4. Chronic kidney disease mineral bone disease maintained on PhosLo. Phosphorus level 5.3. 5. Anemia of chronic kidney disease with component of acute blood loss. Iron replete. Status post blood transfusion. No active bleeding. On Aranesp. Hemoglobin stable at 7.7. Plan: Currently seen while undergoing hemodialysis.
--- NOTE | 2024-04-29 12:17 | P.PN ---
Subjective Progress Note Date: 04/29/24 Patient is a 78-year-old male with hyperlipidemia, anemia of chronic disease, severe aortic stenosis, ESRD (status post kidney transplant x 2, on dialysis Friday weekly), reduced ejection fraction CHF (20 to 25% EF on echo done in June 2023), chronic wound on right lower extremity (being seen by wound care at home), and MRSA (from bacteremia, last infection 03/18 and was given vancomycin) who came in for altered mental status. Patient was a poor historian and information was also gathered from daughter and son who are at bedside. Per family members, patient was very tired and sleepy as he was being taken to dialysis today which was below his baseline. During dialysis, patient was informing RNs that he did not feel well and would like to go to the hospital as he was feeling like he was getting confused and generally weak. He also noted that his right eye had blurry vision, was painful and had excessive tearing. He denied fevers, sweats, nausea, vomiting, abdominal pain, chest pain, shortness of breath, calf tenderness, tremors, facial asymmetry, focal weakness, changes in speech, bleeding, bruising, recent travel, or sick contacts. Patient was recently admitted in 03/18 for cellulitis of right lower extremity, PAD of right lower extremity found on CT that was stable, and positive MRSA on blood cultures and was prescribed vancomycin on discharge given after dialysis but family members are not sure if the medication duration was completed. In the ER, chest x-ray showed bilateral pleural effusions and increased cardiac border. EKG showed sinus bradycardia rate of 54 with PVCs wide QRS left bundle branch block and left axis deviation QTc normal. WBC 6.2 hemoglobin 7.4 platelet count 90,000 sodium 137 potassium 4.7 bicarb 34 BUN 24 creatinine 2.62 calcium 7.6 alk phos 219 troponin 0.158 TSH 0.882 serum EtOH less than 10. On admission, patient was afebrile at 97.8 Fahrenheit pulse 61 respiratory rate 18 blood pressure 108/44 O2 saturation 99% at room air 04/28/2024 patient seen and examined at bedside. Patient is more awake and alert today but still reported weakness that is worse than baseline ADLs. WBC 5.5 hemoglobin 7.5 platelet count 71,000 ESR 14 sodium 137 potassium 4.1 BUN 39 creatinine 3.51 glucose 72 CRP 1.9 alk phos 214 mag 1.6 calcium 6.8 albumin 3 random vancomycin less than 5 04/29/24 patient seen and examined at bedside. Patient reported that he has improved mentation and alertness and he generally feels better. There were no acute events or complications overnight. Echocardiogram left ejection fraction 30 to 35% with global hypokinesia and moderate concentric LVH severe pulmonary hypertension with mean gradient 71 mmHg and severe aortic stenosis with gradient 38 mmHg. WBC 4.6 hemoglobin 7.7 platelet count 70,000. Review of systems: Pertinent positives and negatives as discussed in HPI, a complete review of systems was performed and all other systems are negative. Physical examination: Vital signs reviewed General: non toxic, no distress, appears at stated age Derm: no unusual rashes/lesions, warm, right lower extremity wound with dressing clean and dry no erythema of surrounding skin Head: atraumatic, normocephalic, symmetric Eyes: EOMI, anicteric sclera, pupils equal size, round, reactive to light ENT: Nose and ears atraumatic Neck: No cervical lymphadenopathy, trachea midline, supple, post-auricular mass near left Mouth: no lip lesion, mucus membranes dry Cardiovascular: S1S2 reg, 3/6 holosystolic murmur heard best at right 2nd ICS Lungs: CTA bilateral, no rhonchi, no rales, no accessory muscle use Abdominal: soft, nondistended, nontender to palpation, no guarding Ext: muscle strength 3 out 5 strength in bilateral upper extremities, 5 out of 5 in bilateral lower extremities grossly, no gross muscle atrophy, no contractures, positive dorsalis pedis pulse bilateral, bilateral lower extremity +2 pitting edema Neuro: CN II-XI grossly intact, generalized weakness, no gross focal neuro deficits Psych: Alert and oriented x 3, appropriate affect and mood Assessment/Plan: 78 year old male who came in for altered mental status with pos sible multiple sources. #. Acute metabolic encephalopathy, resolved #. Acute anemia superimposed on anemia of chronic disease, r/o other causes #Systolic cardiomyopathy, unclear if ischemic or nonischemic #Severe aortic stenosis Cardiac monitoring Fall precautions Echocardiogram left ejection fraction 30 to 35% with global hypokinesia and moderate concentric LVH severe pulmonary hypertension with mean gradient 71 mmHg and severe aortic stenosis with gradient [address] head w/o contrast showed no acute processes or masses Serum phosphorus 5.3 which is elevated Serum 25 vitamin D oh hydroxylase 48.8 Vitamin B12 896 CBC posttransfusion hemoglobin was 7.4. Repeat CBC this morning hemoglobin 7.5. Procalcitonin pending CBC and BMP at a.m. Blood cultures pending Urinalysis with reflex to culture Iron studies show anemia of chronic disease with transferrin decreased at 157 ferritin elevated at 776 and percent saturation decreased at 37 Random Vancomycin level less than 5 Discontinue vancomycin IV dosed per pharmacy Received 1 unit packed RBC in the ED Per cardiology, consider ATA to evaluate aortic stenosis and cardiac ca theterization for ischemic workup, not on guideline directed medical therapy GI following. No intervention for now PT OT daily #. ESRD on hemodialysis 3 times per week, at baseline Nephrology following. Session of dialysis today. On Aranesp #. Right lower extremity wound due to PAD Consult wound care F: Oral intake E: Replete as needed N: Renal diet A: On fall precautions. May need assistance for ambulation DVT ppx: Subcutaneous heparin every 8 hours GI ppx: Protonix 40 mg IV daily CODE STATUS: DO NOT RESUSCITATE Discussed with: Patient, and patient's son and daughter Anticipated discharge place: Home Sandra Gomez MD PGY-1 IM Dictation was produced using [employer] dictation software. please excuse any grammatical, word or spelling errors. I have seen and evaluated the patient today. Discussed with the resident and agree with the residents finding and plan as documented in the resident's note. Changes highlighted in blue font. Objective - Vital Signs Vital signs: Vital Signs Temp 98.3 F 04/28/24 20:00 Pulse 64 04/29/24 04:00 Resp 16 04/29/24 04:00 BP 96/53 04/29/24 04:00 Pulse Ox 95 04/29/24 04:00 FiO2 Intake & Output 04/28/24 04/29/24 04/29/24 18:59 06:59 18:59 Intake Total 450 Balance 450 Weight 68.039 kg 64.8 kg Intake: Oral 450 Other: # Voids 1 - Labs CBC & Chem 7: 04/29/24 06:41 04/29/24 06:41 Labs: Abnormal Lab Results - Last 24 Hours (Table) 04/28/24 04/28/24 04/29/24 Range/Units 06:38 11:43 06:41 RBC 2.12 L 2.25 L (4.30-5.90) m/uL Hgb 7.4 L 7.7 L (13.0-17.5) gm/dL Hct 22.4 L 24.1 L (39.0-53.0) % MCV 105.8 H 107.1 H (80.0-100.0) fL RDW 18.2 H 17.2 H (11.5-15.5) % Plt Count 79 L 78 L (150-450) k/uL Lymphocytes # 0.5 L 0.6 L (1.0-4.8) k/uL Macrocytosis Marked A Marked A TIBC 220 L (228-460) UG/DL Transferrin 157.0 L (204.0-354.0) mg/dL Ferritin 776.0 H (22.0-322.0) ng/mL Microbiology - Last 24 Hours (Table) 04/27/24 18:52 Blood Culture - Preliminary Blood
--- NOTE | 2024-04-29 13:02 | P.PN ---
Subjective Progress Note Date: 04/29/24 Reason for Consult (text): CHF, severe History of present illness: This is an 78-year-old male patient of Dr. Wade Phillips with past medical history of severe aortic stenosis, cardiomyopathy with severe LV dysfunction, end-stage renal disease on hemodialysis and status post kidney transplant x 2, chronic wound of the right lower extremity. peripheral vascular disease. We have been asked to evaluate the patient for CHF and severe . Patient presented to the hospital due to altered mental status, weakness and brought from dialysis. Initial blood pressures were [address] systolic. Heart rate was in the 50s and 60s. No hypoxia. Patient states that "I was goofy yesterday." He also complains of dizziness and lightheadedness. He occasionally has chills but no fever. He denies chest pain or pressure. He denies missing HD treatments. Blood pressure 115/60, heart rate 60, pulse ox 100%. Patient is seen today in the emergency center waiting for a bed on the cardiac stepdown unit. Patient has been started on IV antibiotics, IV fluids. He states that he had a previous cardiac cath a number of years ago in [place]. Mental status appears to be improved since he arrived. -EKG: Sinus rhythm with left bundle branch block 54 bpm, PVCs -Chest x-ray: Cardiomegaly, pulmonary vascular congestion and bilateral pleural effusions. -CT of the brain revealed no acute intracranial process. -Laboratory studies: Troponin 0.158, 0.143, 0.137. proBNP 102,000. C-reactive protein 1.9. TSH 0.883. Alcohol level less than 10 WBC 5.5, hemoglobin 7.5, pl atelet count 71. Sodium 136, potassium 4.1, BUN 39 creatinine 3.51. Influenza A, influenza B, RSV and COVID-19 not detected. -Home cardiac medications: Aspirin 81 mg daily, atorvastatin 80 mg at bedtime, Bumex 4 mg daily, Imdur 30 mg daily, Toprol XL 25 mg daily, also on midodrine as needed -Echocardiogram performed 07/01/2023 revealed EF of 20 to 25% with dilated left ventricle. Aortic sclerosis with mean gradient 18 mmHg. Moderate to severe right ventricular dilation. Moderate to severe tricuspid regurgitation. 04/29/24 Patient seen and examined. And is undergoing dialysis at this time. States that he is still getting lightheaded and had an episode with dialysis with a blood pressure 97/55. Patient also concerned about intermittent shortness of breath. Reviewed echocardiogram with the patient and discussed the aortic stenosis. Recommended patient consider aortic valve repair. However, patient's symptoms may be multifactorial especially with end-stage renal disease, low EF, anemia. Echocardiogram reveals EF of 30 to 35%, moderate concentric LVH, severe pulmonary hypertension with mean gradient of 71 mmHg, severe with mean gradient 38 Dr. Chow discussed case with Dr. Phillips and he will make a decision regarding next steps. Physical examination: Gen: This is a 78-year-old male in no acute distress VS: reviewed HEENT: Head is atraumatic, normocephalic. Pupils equal, round. Sclerae is anicteric. NECK: Supple. No JVD. LUNGS: Clear to auscultation. No wheezes or rhonchi. No intercostal retractions. HEART: Regular rate and rhythm. 4/6 AR. ABDOMEN: Soft No tenderness. EXTREMITIES: No pedal edema. No calf tenderness. NEUROLOGICAL: Patient is awake, alert. Assessment: Metabolic encephalopathy Dizziness and lightheadedness Elevated troponin secondary to chronic kidney disease Possibly related to anemia, anemia Thrombocytopenia End-stage renal disease on hemodialysis Chronic right lower extremity wound PAD Severe aortic stenosis Cardiomyopathy Chronic systolic heart failure Hyperlipidemia Chronic hypotension Plan: Continue patient's home cardiac medications Would consider cardiac catheterization for ischemic workup and also ATA to further evaluate aortic stenosis Further recommendations to follow based upon clinical course Thank you kindly for this consultation. Nurse practitioner note has been reviewed, I agree with documented findings and plan of care. Patient was seen and examined. Objective - Vital Signs Vital signs: Vital Signs Temp 97.6 F 04/29/24 07:30 Pulse 58 L 04/29/24 07:45 Resp 16 04/29/24 07:45 BP 115/61 04/29/24 07:30 Pulse Ox 100 04/29/24 07:30 FiO2 Intake & Output 04/28/24 04/29/24 04/29/24 18:59 06:59 18:59 Intake Total 450 Balance 450 Weight 68.039 kg 64.8 kg Intake: Oral 450 Other: # Voids 1 - Labs CBC & Chem 7: 04/29/24 06:41 04/28/24 06:38 Labs: Abnormal Lab Results - Last 24 Hours (Table) 04/28/24 04/28/24 04/29/24 Range/Units 06:38 11:43 06:41 RBC 2.12 L 2.25 L (4.30-5.90) m/uL Hgb 7.4 L 7.7 L (13.0-17.5) gm/dL Hct 22.4 L 24.1 L (39.0-53.0) % MCV 105.8 H 107.1 H (80.0-100.0) fL RDW 18.2 H 17.2 H (11.5-15.5) % Plt Count 79 L 78 L (150-450) k/uL Lymphocytes # 0.5 L 0.6 L (1.0-4.8) k/uL Macrocytosis Marked A Marked A TIBC 220 L (228-460) UG/DL Transferrin 157.0 L (204.0-354.0) mg/dL Ferritin 776.0 H (22.0-322.0) ng/mL Microbiology - Last 24 Hours (Table) 04/27/24 18:52 Blood Culture - Preliminary Blood
--- NOTE | 2024-04-29 13:18 | P.PN ---
Subjective Progress Note Date: 04/29/24 Principal diagnosis: Anemia This is a pleasant 78-year-old male with multiple comorbidities including hyperlipidemia, anemia of chronic disease, thrombocytopenia, severe aortic st enosis, end-stage renal disease on dialysis status post 2 kidney transplants, CHF, and chronic lower extremity wounds presented for altered mental status changes and weakness. Patient is a poor historian but according to patient's chart he was at dialysis and stated that he was not feeling well and wanted to come to the emergency department that he felt that he was getting confused. Patient was noted to be anemic on admission and vascular surgery was consulted for anemia. Patient denies any blood in his stool or black stool. He is not on any anticoagulation. He does take an 81 mg aspirin daily. Denies any history of GI bleed. Denies any history of peptic ulcer disease. States last co lonoscopy about 30 years ago. Labs: WBC 5.5 hemoglobin 7.5 hematocrit 23 platelet count 71,000 sodium 136 potassium 4.1 BUN 39 creatinine 3.5 iron 82 TIBC 228 saturation 37 ferritin 776 total bilirubin 1.4 AST 58 ALT 44 alkaline phosphatase 214 vitamin B12 896 folate 23 04/29/2024 Patient is seen and examined today as a follow-up for anemia. He is currently undergoing dialysis. Repeat hemoglobin is 7.7 platelet count 78,000 he continues to deny any black stool. He does state that Friday he had 1 black stool but Friday he had a normal bowel movement. He thought it was secondary to something he ate. Denies any abdominal pain, nausea or vomiting. Objective - Vital Signs Vital signs: Vital Signs Temp 97.6 F 04/29/24 07:30 Pulse 58 L 04/29/24 07:45 Resp 16 04/29/24 07:45 BP 115/61 04/29/24 07:30 Pulse Ox 100 04/29/24 07:30 FiO2 Intake & Output 04/28/24 04/29/24 04/29/24 18:59 06:59 18:59 Intake Total 450 Balance 450 Weight 68.039 kg 64.8 kg Intake: Oral 450 Other: # Voids 1 - Exam General appearance: The patient is alert, oriented, appears in no acute distress. HET: Head is normocephalic and atraumatic. Conjunctiva pink. Sclera anicteric. Neck: Supple without lymphadenopathy. Abdomen: Soft, nontender, nondistended. Extremities: Normal skin color and turgor. No pedal edema Skin: No rashes, no jaundice Neurological: No focal deficits. Alert and oriented. - Labs CBC & Chem 7: 04/29/24 06:41 04/28/24 06:38 Labs: Abnormal Lab Results - Last 24 Hours (Table) 04/28/24 04/28/24 04/29/24 Range/Units 06:38 11:43 06:41 RBC 2.12 L 2.25 L (4.30-5.90) m/uL Hgb 7.4 L 7.7 L (13.0-17.5) gm/dL Hct 22.4 L 24.1 L (39.0-53.0) % MCV 105.8 H 107.1 H (80.0-100.0) fL RDW 18.2 H 17.2 H (11.5-15.5) % Plt Count 79 L 78 L (150-450) k/uL Lymphocytes # 0.5 L 0.6 L (1.0-4.8) k/uL Macrocytosis Marked A Marked A TIBC 220 L (228-460) UG/DL Transferrin 157.0 L (204.0-354.0) mg/dL Ferritin 776.0 H (22.0-322.0) ng/mL Microbiology - Last 24 Hours (Table) 04/27/24 18:52 Blood Culture - Preliminary Blood Assessment and Plan (1) Anemia Narrative/Plan: 78-year-old gentleman with multiple comorbidities including end-stage renal disease on hemodialysis who presented to the emergency department with confusion and weakness sent from dialysis. This is a patient who has chronic anemia and chronic thrombocytopenia. Patient is without any signs of GI bleed. He is not on any anticoagulation. Anemia profile ordered and reviewed. Patient without iron deficiency anemia. Iron 82 ferritin 776. Likely anemia of chronic disease. No plans on endoscopic evaluation. Will continue to monitor for signs of GI bleed. Current Visit: Yes Status: Acute Code(s): D64.9 - ANEMIA, UNSPECIFIED SNOMED Code(s): 603289724 (2) End-stage renal disease on hemodialysis Current Visit: Yes Status: Acute Code(s): N18.6 - END STAGE RENAL DISEASE; Z99.2 - DEPENDENCE ON RENAL DIALYSIS SNOMED Code(s): 121911363 (3) Heart failure Current Visit: Yes Status: Acute Code(s): I50.9 - HEART FAILURE, UNSPECIFIED SNOMED Code(s): 47662420 (4) Wound of lower extremity Current Visit: Yes Status: Acute Code(s): S81.809A - UNSPECIFIED OPEN WOUND, UNSPECIFIED LOWER LEG, INIT ENCNTR SNOMED Code(s): 442116195 (5) Weakness Current Visit: Yes Status: Acute Code(s): R53.1 - WEAKNESS SNOMED Code(s): 36872188 (6) Thrombocytopenia Current Visit: Yes Status: Acute Code(s): D69.6 - THROMBOCYTOPENIA, UNSPECIFIED SNOMED Code(s): 997338653 Plan: 1. Continue symptomatic and supportive care 2. Anemia profile ordered and reviewed 3. Daily CBC, transfuse for hemoglobin less than 7 4. Protonix 40 mg daily for GI prophylaxis 5. No plans on endoscopic evaluation at this time. Monitor for GI bleed. 6. Rest of medical management per primary medical team Thank you for this consultation, we will continue to follow. Dr. Cassandra Phillips I agree with the dictator's note, documented as a scribe by Jillian Dumont.
[2024-04-29 16:09] LABS: African American GFR (CKD) 13 (>60 ml/min/1.73 sqM); Anion Gap 11 mmol/L; Blood Urea Nitrogen 49 mg/dL (9-20); Calcium 7.5 mg/dL (8.4-10.2); Carbon Dioxide 24 mmol/L (22-30); Chloride 98 mmol/L (98-107); Glucose 84 mg/dL (74-99); Non-African American GFR(CKD) 11 (>60 ml/min/1.73 sqM); Potassium 4.4 mmol/L (3.5-5.1); Sodium 133 mmol/L (137-145)
[2024-04-30] MEDS ORDERED: NITROGLYCERIN SL TABS 0.4 MG TAB SUBLINGUAL PRN (07:34)
[2024-04-30] MEDS ORDERED: ALPRAZolam 0.5 MG TAB PO PRN (07:34)
[2024-04-30] MEDS ORDERED: ALPRAZolam 0.25 MG TAB PO PRN (07:34)
--- NOTE | 2024-04-30 08:16 | US ---
EXAMINATION TYPE: US thyroid st tissue head/neck DATE OF EXAM: 04/29/2024 COMPARISON: NONE CLINICAL INDICATION: Male, 78 years old with history of Mass on left jaw over parotid; Lump left paro tid. patient seems unsure of how long it has been there. says it is not painful TECHNIQUE: Grayscale and color Doppler imaging of the left parotid, [facility] FINDINGS: Area of lump scanned (left parotid). There is a 1.4 x 1.3 x 1.4cm anechoic lesion seen at patients ar ea of lump. Superior to this lesion, there is also a 3.7 x 1.1 x 2.7cm complex area. IMPRESSION: Area of concern in the left parotid gland demonstrates irregular soft tissue within adjacent anechoic cysts. Tissue sampling of the complex area recommended. [facility], , 04/30/2024 8:14 AM
[2024-04-30 08:31] LABS: Anisocytosis Slight; Basophils % (A) 0 %; Eosinophils # (A) 0.1 k/uL (0-0.7); Eosinophils % (A) 2 %; HCT 24.7 % (39.0-53.0); Lymphocytes # (A) 0.4 k/uL (1.0-4.8); Lymphocytes % (A) 7 %; MCH 34.2 pg (25.0-35.0); MCHC 32.4 g/dL (31.0-37.0); MCV 105.5 fL (80.0-100.0); Macrocytosis Marked; Mean Platelet Volume 11.7; Monocytes # (A) 0.3 k/uL (0-1.0); Monocytes % (A) 7 %; Neutrophils # (A) 4.1 k/uL (1.3-7.7); Neutrophils % (A) 82 %; RBC 2.34 m/uL (4.30-5.90); RDW 17.8 % (11.5-15.5)
[2024-04-30 08:34] LABS: Platelet Count 76 k/uL (150-450)
[2024-04-30 08:45] LABS: African American GFR (CKD) 17 (>60 ml/min/1.73 sqM); Anion Gap 8 mmol/L; Blood Urea Nitrogen 33 mg/dL (9-20); Calcium 7.3 mg/dL (8.4-10.2); Carbon Dioxide 31 mmol/L (22-30); Chloride 97 mmol/L (98-107); Glucose 100 mg/dL (74-99); Non-African American GFR(CKD) 15 (>60 ml/min/1.73 sqM); Potassium 3.8 mmol/L (3.5-5.1); Sodium 136 mmol/L (137-145)
[2024-04-30] MEDS: ASPIRIN 325 MG TAB PO STA (09:33)
[2024-04-30] MEDS: ATORVASTATIN 80 MG TAB PO STA (09:45)
[2024-04-30] MEDS: ASPIRIN 81 MG PO STA (09:45)
[2024-04-30] MEDS: SODIUM CHLORIDE 0.9% 1,000 ML in EMPTY BAG 1 BAG IV ONE (09:50)
--- NOTE | 2024-04-30 10:35 | P.PN ---
Subjective Patient is seen in follow-up for end-stage renal disease. No problems with dialysis yesterday. Scheduled for cardiac catheterization today. Vital signs are stable. General: No acute distress. HEENT: Head exam is unremarkable. LUNGS: No audible rhonchi or wheezes. HEART: Rate and Rhythm are regular. ABDOMEN: Nontender. EXTREMITITES: Right lower extremity wound dressing noted. No drainage. No edema. Objective - Vital Signs Vital signs: Vital Signs Temp 97.6 F 04/30/24 07:00 Pulse 76 04/30/24 08:00 Resp 18 04/30/24 08:00 BP 108/46 04/30/24 07:00 Pulse Ox 100 04/30/24 08:11 FiO2 Intake & Output 04/29/24 04/30/24 04/30/24 18:59 06:59 18:59 Intake Total 640 Output Total 3400 Balance -2760 Weight 68.3 kg Intake: Oral 240 Hemodialysis 400 Output: Hemodialysis 1900 Hemodialysis Net Amount 1500 Other: # Voids 1 - Labs CBC & Chem 7: 04/30/24 07:16 04/30/24 07:16 Labs: Abnormal Lab Results - Last 24 Hours (Table) 04/29/24 04/30/24 04/30/24 Range/Units 06:41 07:16 07:16 RBC 2.34 L (4.30-5.90) m/uL Hgb 8.0 L (13.0-17.5) gm/dL Hct 24.7 L (39.0-53.0) % MCV 105.5 H (80.0-100.0) fL RDW 17.8 H (11.5-15.5) % Plt Count 76 L (150-450) k/uL Lymphocytes # 0.4 L (1.0-4.8) k/uL Macrocytosis Marked A Sodium 133 L 136 L (137-145) mmol/L Chloride 97 L (98-107) mmol/L Carbon Dioxide 31 H (22-30) mmol/L BUN 49 H 33 H (9-20) mg/dL Creatinine 4.56 H 3.59 H (0.66-1.25) mg/dL Glucose 100 H (74-99) mg/dL Calcium 7.5 L 7.3 L (8.4-10.2) mg/dL Microbiology - Last 24 Hours (Table) 04/27/24 18:52 Blood Culture - Preliminary Blood Assessment and Plan Plan: Assessment: 1. End-stage renal disease maintained on hemodialysis on Friday schedule. 2. Chronic systolic CHF ejection fraction of 30 to 35% with mild to moderate mitral regurgitation, pulmonic regurgitation and severe aortic stenosis. Car diology following. 3. Chronic right lower extremity wound. 4. Chronic kidney disease mineral bone disease maintained on PhosLo. Phosphorus level 5.3. 5. Anemia of chronic kidney disease with component of acute blood loss. Iron replete. Status post blood transfusion. No active bleeding. On Aranesp. Hemoglobin stable at 8. Plan: Hemodialysis tomorrow. Cardiac catheterization today.
[2024-04-30] MEDS: BENZOCAINE SPRAY 1 EACH MM ONE (10:39)
[2024-04-30] MEDS: SODIUM CHLORIDE 0.9% 250 ML IV ONE (11:41)
--- NOTE | 2024-04-30 11:51 | P.PN ---
Subjective Progress Note Date: 04/30/24 Principal diagnosis: Anemia This is a pleasant 78-year-old male with multiple comorbidities including hyperlipidemia, anemia of chronic disease, thrombocytopenia, severe aortic st enosis, end-stage renal disease on dialysis status post 2 kidney transplants, CHF, and chronic lower extremity wounds presented for altered mental status changes and weakness. Patient is a poor historian but according to patient's chart he was at dialysis and stated that he was not feeling well and wanted to come to the emergency department that he felt that he was getting confused. Patient was noted to be anemic on admission and vascular surgery was consulted for anemia. Patient denies any blood in his stool or black stool. He is not on any anticoagulation. He does take an 81 mg aspirin daily. Denies any history of GI bleed. Denies any history of peptic ulcer disease. States last co lonoscopy about 30 years ago. Labs: WBC 5.5 hemoglobin 7.5 hematocrit 23 platelet count 71,000 sodium 136 potassium 4.1 BUN 39 creatinine 3.5 iron 82 TIBC 228 saturation 37 ferritin 776 total bilirubin 1.4 AST 58 ALT 44 alkaline phosphatase 214 vitamin B12 896 folate 23 04/29/2024 Patient is seen and examined today as a follow-up for anemia. He is currently undergoing dialysis. Repeat hemoglobin is 7.7 platelet count 78,000 he continues to deny any black stool. He does state that Friday he had 1 black stool but Friday he had a normal bowel movement. He thought it was secondary to something he ate. Denies any abdominal pain, nausea or vomiting. 12/29/2023 Patient seen and examined today as a follow-up. Repeat hemoglobin today 8.0 platelet count 76,000. Denies any bright red blood or black stool. No abdominal pain, nausea or vomiting. Objective - Vital Signs Vital signs: Vital Signs Temp 97.6 F 04/30/24 07:00 Pulse 76 04/30/24 08:00 Resp 18 04/30/24 08:00 BP 108/46 04/30/24 07:00 Pulse Ox 100 04/30/24 08:11 FiO2 Intake & Output 04/29/24 04/30/24 04/30/24 18:59 06:59 18:59 Intake Total 640 Output Total 3400 Balance -2760 Weight 68.3 kg Intake: Oral 240 Hemodialysis 400 Output: Hemodialysis 1900 Hemodialysis Net Amount 1500 Other: # Voids 1 - Exam General appearance: The patient is alert, oriented, appears in no acute distress. HET: Head is normocephalic and atraumatic. Conjunctiva pink. Sclera anicteric. Neck: Supple without lymphadenopathy. Abdomen: Soft, nontender, nondistended. Extremities: Normal skin color and turgor. No pedal edema Skin: No rashes, no jaundice Neurological: No focal deficits. Alert and oriented. - Labs CBC & Chem 7: 04/30/24 07:16 04/30/24 07:16 Labs: Abnormal Lab Results - Last 24 Hours (Table) 04/28/24 04/29/24 04/30/24 Range/Units 06:48 06:41 07:16 RBC 2.34 L (4.30-5.90) m/uL Hgb 8.0 L (13.0-17.5) gm/dL Hct 24.7 L (39.0-53.0) % MCV 105.5 H (80.0-100.0) fL RDW 17.8 H (11.5-15.5) % Plt Count 76 L (150-450) k/uL Lymphocytes # 0.4 L (1.0-4.8) k/uL Macrocytosis Marked A Sodium 133 L (137-145) mmol/L Chloride (98-107) mmol/L Carbon Dioxide (22-30) mmol/L BUN 49 H (9-20) mg/dL Creatinine 4.56 H (0.66-1.25) mg/dL Glucose (74-99) mg/dL Calcium 7.5 L (8.4-10.2) mg/dL Procalcitonin 0.96 H (0.02-0.50) ng/mL 04/30/24 Range/Units 07:16 RBC (4.30-5.90) m/uL Hgb (13.0-17.5) gm/dL Hct (39.0-53.0) % MCV (80.0-100.0) fL RDW (11.5-15.5) % Plt Count (150-450) k/uL Lymphocytes # (1.0-4.8) k/uL Macrocytosis Sodium 136 L (137-145) mmol/L Chloride 97 L (98-107) mmol/L Carbon Dioxide 31 H (22-30) mmol/L BUN 33 H (9-20) mg/dL Creatinine 3.59 H (0.66-1.25) mg/dL Glucose 100 H (74-99) mg/dL Calcium 7.3 L (8.4-10.2) mg/dL Procalcitonin (0.02-0.50) ng/mL Microbiology - Last 24 Hours (Table) 04/27/24 18:52 Blood Culture - Preliminary Blood Assessment and Plan (1) Anemia Narrative/Plan: 78-year-old gentleman with multiple comorbidities including end-stage renal disease on hemodialysis who presented to the emergency department with confusion and weakness sent from dialysis. This is a patient who has chronic anemia and chronic thrombocytopenia. Patient is without any signs of GI bleed. He is not on any anticoagulation. Anemia profile ordered and reviewed. Patient without iron deficiency anemia. Iron 82 ferritin 776. Likely anemia of chronic disease. No plans on endoscopic evaluation. Will continue to monitor for signs of GI bleed. Current Visit: Yes Status: Acute Code(s): D64.9 - ANEMIA, UNSPECIFIED SNOMED Code(s): 677276306 (2) End-stage renal disease on hemodialysis Current Visit: Yes Status: Acute Code(s): N18.6 - END STAGE RENAL DISEASE; Z99.2 - DEPENDENCE ON RENAL DIALYSIS SNOMED Code(s): 258269561 (3) Heart failure Current Visit: Yes Status: Acute Code(s): I50.9 - HEART FAILURE, UNSPECIFIED SNOMED Code(s): 00295326 (4) Wound of lower extremity Current Visit: Yes Status: Acute Code(s): S81.809A - UNSPECIFIED OPEN WOUND, UNSPECIFIED LOWER LEG, INIT ENCNTR SNOMED Code(s): 082328978 (5) Weakness Current Visit: Yes Status: Acute Code(s): R53.1 - WEAKNESS SNOMED Code(s): 89881314 (6) Thrombocytopenia Current Visit: Yes Status: Acute Code(s): D69.6 - THROMBOCYTOPENIA, UNSPECIFIED SNOMED Code(s): 039047663 Plan: 1. Continue symptomatic and supportive care 2. Anemia profile ordered and reviewed. Suspect anemia of chronic disease. 3. Protonix 40 mg daily for GI prophylaxis 4. No plans on endoscopic evaluation at this time. Monitor for GI bleed. 5. Rest of medical management per primary medical team Thank you for this consultation, we will sign off at this time. Dr. Cassandra Phillips I agree with the dictator's note, documented as a scribe by Jillian Dumont.
[2024-04-30] MEDS: LIDOCAINE 1% INJ 10MG/ML (20 ML MDV) SQ ONE (11:52)
[2024-04-30] MEDS: IOPAMIDOL-370 100ML BTL INJ ONE (12:25)
[2024-04-30] MEDS: SODIUM CHLORIDE 0.9% 1,000 ML IV ONE (12:26)
--- NOTE | 2024-04-30 12:57 | P.PN ---
Subjective Progress Note Date: 04/30/24 Patient is a 78-year-old male with hyperlipidemia, anemia of chronic disease, severe aortic stenosis, ESRD (status post kidney transplant x 2, on dialysis Friday weekly), reduced ejection fraction CHF (20 to 25% EF on echo done in June 2023), chronic wound on right lower extremity (being seen by wound care at home), and MRSA (from bacteremia, last infection 03/18 and was given vancomycin) who came in for altered mental status. Patient was a poor historian and information was also gathered from daughter and son who are at bedside. Per family members, patient was very tired and sleepy as he was being taken to dialysis today which was below his baseline. During dialysis, patient was informing RNs that he did not feel well and would like to go to the hospital as he was feeling like he was getting confused and generally weak. He also noted that his right eye had blurry vision, was painful and had excessive tearing. He denied fevers, sweats, nausea, vomiting, abdominal pain, chest pain, shortness of breath, calf tenderness, tremors, facial asymmetry, focal weakness, changes in speech, bleeding, bruising, recent travel, or sick contacts. Patient was recently admitted in 03/18 for cellulitis of right lower extremity, PAD of right lower extremity found on CT that was stable, and positive MRSA on blood cultures and was prescribed vancomycin on discharge given after dialysis but family members are not sure if the medication duration was completed. In the ER, chest x-ray showed bilateral pleural effusions and increased cardiac border. EKG showed sinus bradycardia rate of 54 with PVCs wide QRS left bundle branch block and left axis deviation QTc normal. WBC 6.2 hemoglobin 7.4 platelet count 90,000 sodium 137 potassium 4.7 bicarb 34 BUN 24 creatinine 2.62 calcium 7.6 alk phos 219 troponin 0.158 TSH 0.882 serum EtOH less than 10. On admission, patient was afebrile at 97.8 Fahrenheit pulse 61 respiratory rate 18 blood pressure 108/44 O2 saturation 99% at room air 04/28/2024 patient seen and examined at bedside. Patient is more awake and alert today but still reported weakness that is worse than baseline ADLs. WBC 5.5 hemoglobin 7.5 platelet count 71,000 ESR 14 sodium 137 potassium 4.1 BUN 39 creatinine 3.51 glucose 72 CRP 1.9 alk phos 214 mag 1.6 calcium 6.8 albumin 3 random vancomycin less than 5 04/29/24 patient seen and examined at bedside. Patient reported that he has improved mentation and alertness and he generally feels better. There were no acute events or complications overnight. Echocardiogram left ejection fraction 30 to 35% with global hypokinesia and moderate concentric LVH severe pulmonary hypertension with mean gradient 71 mmHg and severe aortic stenosis with gradient 38 mmHg. WBC 4.6 hemoglobin 7.7 platelet count 70,000. 04/30/2024 patient seen and examined at bedside. Patient reported that he feels about the same as yesterday. He notes no new or worsening symptoms overnight. Vitals remained stable overnight. WBC 5 hemoglobin 8 platelet count 76,000 sodium 136 potassium 3.8 chloride 97 BUN 33 creatinine 3.59 calcium 7.3 procalcitonin 0.26. Head and neck ultrasound showed irregular soft tissue within adjacent anechoic cyst in the left parotid gland with recommended tissue sampling. Review of systems: Pertinent positives and negatives as discussed in HPI, a complete review of systems was performed and all other systems are negative. Physical examination: Vital signs reviewed General: non toxic, no distress, appears at stated age Derm: no unusual rashes/lesions, warm, right lower extremity wound with dressing clean and dry no erythema of surrounding skin Head: atraumatic, normocephalic, symmetric Eyes: EOMI, anicteric sclera, pupils equal size, round, reactive to light ENT: Nose and ears atraumatic Neck: No cervical lymphadenopathy, trachea midline, supple, post-auricular mass near left Mouth: no lip lesion, mucus membranes dry Cardiovascular: S1S2 reg, 3/6 holosystolic murmur heard best at right 2nd ICS Lungs: CTA bilateral, no rhonchi, no rales, no accessory muscle use Abdominal: soft, nondistended, nontender to palpation, no guarding Ext: muscle strength 5 out of 5 strength in bilateral upper and lower distal extremities grossly no gross muscle atrophy, no contractures, positive dorsalis pedis pulse bilateral, no extremity edema Neuro: CN II-XI grossly intact, generalized weakness, no gross focal neuro deficits Psych: Alert and oriented x 3, appropriate affect and mood Assessment/Plan: 78 year old male who came in for altered mental status with possible multiple sources. #. Acute metabolic encephalopathy, resolved #. Acute anemia superimposed on anemia of chronic disease, r/o other causes #. Systolic cardiomyopathy, unclear if ischemic or nonischemic #. Severe aortic stenosis Cardiac monitoring Fall precautions Echocardiogram left ejection fraction 30 to 35% with global hypokinesia and moderate concentric LVH severe pulmonary hypertension with mean gradient 71 mmHg and severe aortic stenosis with gradient [address] head w/o contrast showed no acute processes or masses Serum phosphorus 5.3 which is elevated Serum 25 vitamin D oh hydroxylase 48.8 Vitamin B12 896 CBC posttransfusion hemoglobin was 7.4. -> 7.5. Procalcitonin 0.26 CBC and BMP at a.m. Blood cultures negative Urinalysis with reflex to culture pending Iron studies show anemia of chronic disease with transferrin decreased at 157 ferritin elevated at 776 and percent saturation decreased at 37 Received 1 unit packed RBC in the ED Per cardiology, for ATA to evaluate aortic stenosis and cardiac catheterization for ischemic workup today, not on guideline directed medical therapy GI following. No intervention for now PT OT daily #. ESRD on hemodialysis 3 times per week, at baseline Nephrology following. Session of dialysis today. On Aranesp #. Right lower extremity wound due to PAD Consult wound care #. Left parotid mass Patient currently stable and not experiencing any symptoms Head and neck ultrasound showed irregular soft tissue within adjacent anechoic cyst in the left parotid gland with recommended tissue sampling Biopsy and follow-up on outpatient basis F: Oral intake E: Replete as needed N: Renal diet A: On fall precautions. May need assistance for ambulation DVT ppx: Subcutaneous heparin every 8 hours GI ppx: Protonix 40 mg IV daily Dispo: The patient is admitted with an anticipated greater than than 2 midnight stay for evaluation of altered mental status CODE STATUS: DO NOT RESUSCITATE Anticipated discharge place: Home Sandra Gomez MD PGY-1 IM Dictation was produced using [employer] dictation software. please excuse any grammatical, word or spelling errors. I have seen and evaluated the patient today. Discussed with the resident and agree with the residents finding and plan as documented in the resident's note. Changes highlighted in blue font. Objective - Vital Signs Vital signs: Vital Signs Temp 97.6 F 04/30/24 07:00 Pulse 76 04/30/24 07:00 Resp 18 04/30/24 07:00 BP 108/46 04/30/24 07:00 Pulse Ox 100 04/30/24 07:00 FiO2 Intake & Output 04/29/24 04/30/24 04/30/24 18:59 06:59 18:59 Intake Total 640 Output Total 3400 Balance -2760 Weight 68.3 kg Intake: Oral 240 Hemodialysis 400 Output: Hemodialysis 1900 Hemodialysis Net Amount 1500 Other: # Voids 1 - Labs CBC & Chem 7: 04/30/24 07:16 04/30/24 07:16 Labs: Abnormal Lab Results - Last 24 Hours (Table) 04/29/24 Range/Units 06:41 Sodium 133 L (137-145) mmol/L BUN 49 H (9-20) mg/dL Creatinine 4.56 H (0.66-1.25) mg/dL Calcium 7.5 L (8.4-10.2) mg/dL Microbiology - Last 24 Hours (Table) 04/27/24 18:52 Blood Culture - Preliminary Blood
[2024-04-30] MEDS ORDERED: LIDOCAINE 5% OINTMENT 50 GM JAR TOPICAL PRN (13:45)
[2024-04-30] MEDS: MIDODRINE 5 MG TAB PO PRN (14:01)
[2024-04-30] MEDS: HYDROcodone/APAP 5-325MG 1 EACH TAB PO PRN (14:13)
--- NOTE | 2024-04-30 21:08 | US ---
EXAMINATION TYPE: US extremity nonvasc mass LT DATE OF EXAM: 04/30/2024 COMPARISON: NONE CLINICAL INDICATION: Male, 78 years old with history of Visualize possible hematoma at dialysis [address]; Possible hematoma left arm at dialysis catheter TECHNIQUE: Left arm FINDINGS: Left upper arm at swelling and bruising there appears to be superficial edema In the left antecubital fossa region of interest, there are 2 complex heterogeneous cystic masses adj acent to the patient's dialysis graft, felt to most likely reflect hematomas. No internal color Doppl er flow within these collections. Medial to the collection the hematoma measures 1.2 x 1.3 x 1.6 cm. Lateral to the hematoma, the collection measures 1.6 x 1.7 x 3.1 cm. IMPRESSION: Complex cystic masses in the left antecubital region of interest surrounding the dialysis graft, felt to most likely reflect hematomas as described above. [facility], , 04/30/2024 9:06 PM
--- NOTE | 2024-04-30 23:22 | CC ---
CARDIAC CATHETERIZATION REPORT PROCEDURE: Transesophageal echo. INDICATION: Aortic stenosis. PROCEDURE NOTE: After obtaining informed consent, transesophageal echocardiogram was performed in left lateral position using an Omniplane probe. Local sedations were obtained using Xylocaine spray. The patient tolerated the procedure without any obvious immediate complications. FINDINGS: Aortic valve is a 3-leaflet valve, heavily calcified and shows severe restriction in leaflet mobility with a valve area of 0.73 cm. Ascending aorta appears aneurysmally dilated. Mitral valve shows mitral annular calcification with mild mitral regurgitation. Tricuspid valve shows moderate tricuspid regurgitation. There is severe biatrial enlargement, pericardial effusion noted. Left ventricle appears dilated shows severe LV systolic dysfunction with an ejection fraction of 35%. There is no evidence of [id number] shunt by color-flow Doppler or [id number] shunt by agitated saline contrast study. CONCLUSION: 1. Severe aortic stenosis involving the tricuspid aortic valve that is heavily calcified. 2. Cardiomyopathy with LV systolic dysfunction with an ejection fraction of around 35%. MMODL / IJN: [id number] /
--- NOTE | 2024-04-30 23:28 | CC ---
CARDIAC CATHETERIZATION REPORT INDICATION: Aortic stenosis. PROCEDURE NOTE: After obtaining informed consent, left heart catheterization and coronary angiogram were performed via the right femoral artery using standard Oswaldo catheters. Right femoral arterial access was obtained using Seldinger technique, 6-Irish sheath was placed. Catheters and wires were floated into the ascending aorta under fluoroscopic guidance. The patient has very tortuous iliacs. I had to use a Glidewire to manipulate the catheters into the abdominal aorta. The patient tolerated the procedure well without any obvious immediate complications. His noninvasive blood pressures are low, but with invasive measurements, blood pressures have been normal. I initially attempted right radial catheterization. Right radial artery access was obtained using Seldinger technique. We were able to obtain good vascular access. However, I could not advance the sheath into the radial artery due to which I stopped the catheter and then proceeded with the femoral cath. I will use the TR band for hemostasis. FINDINGS: 1. Central aortic pressure 130/70 mm. 2. Left ventriculogram: Left ventriculogram is not performed. 3. Angiographic data: a.Left main coronary artery appears calcified, but is free of significant stenosis. Divides into circumflex coronary artery and left anterior descending coronary artery. The LAD seems to have been stented in the proximal portion with the stent appears patent. It is heavily calcified but is free of significant stenosis. b.Right coronary artery is a codominant vessel, shows mild nonobstructive disease. CONCLUSIONS: Calcified coronaries without significant focal obstructive disease, heavily calcified LAD. There is what appears like a stent in the proximal LAD that is patent. PLAN: The patient will be evaluated for TAVR by Dr. Chow who evaluated the patient on the floor. MMODL / IJN: [id number] /
[2024-05-01] MEDS ORDERED: HEPARIN SODIUM,PORCINE (1 ML) 2,500 UNIT in SODIUM CHLORIDE 0.9% 250 ML IRRIGATION PRN (07:00)
[2024-05-01] MEDS ORDERED: HEPARIN SODIUM,PORCINE 10,000 UNIT in SODIUM CHLORIDE 0.9% 1,000 ML IRRIGATION PRN (07:00)
[2024-05-01 09:18] LABS: Anisocytosis Slight; Basophils % (A) 1 %; Eosinophils # (A) 0.1 k/uL (0-0.7); Eosinophils % (A) 2 %; HCT 24.1 % (39.0-53.0); HGB 7.5 gm/dL (13.0-17.5); Hypochromasia Marked; Lymphocytes # (A) 0.5 k/uL (1.0-4.8); Lymphocytes % (A) 8 %; MCHC 31.2 g/dL (31.0-37.0); Macrocytosis Marked; Mean Platelet Volume 10.6; Monocytes # (A) 0.4 k/uL (0-1.0); Monocytes % (A) 7 %; Neutrophils # (A) 4.5 k/uL (1.3-7.7); Neutrophils % (A) 81 %; RBC 2.15 m/uL (4.30-5.90); RDW 17.3 % (11.5-15.5); WBC 5.6 k/uL (3.8-10.6)
[2024-05-01 09:24] LABS: MCV 111.9 fL (80.0-100.0)
[2024-05-01 09:25] LABS: Platelet Count 79 k/uL (150-450)
[2024-05-01 09:50] LABS: African American GFR (CKD) 11 (>60 ml/min/1.73 sqM); Anion Gap 12 mmol/L; Blood Urea Nitrogen 40 mg/dL (9-20); Calcium 6.9 mg/dL (8.4-10.2); Carbon Dioxide 26 mmol/L (22-30); Chloride 99 mmol/L (98-107); Glucose 119 mg/dL (74-99); Non-African American GFR(CKD) 10 (>60 ml/min/1.73 sqM); Potassium 3.3 mmol/L (3.5-5.1); Sodium 137 mmol/L (137-145)
--- NOTE | 2024-05-01 12:43 | P.PN ---
Subjective patient is seen for follow-up for end-stage renal disease. Seen on hemodialysis. No significant complaints. Tolerating dialysis well. Objective - Vital Signs Vital signs: Vital Signs Temp 97.7 F 05/01/24 11:35 Pulse 67 05/01/24 11:35 Resp 20 05/01/24 11:35 BP 97/58 05/01/24 11:35 Pulse Ox 99 05/01/24 11:35 FiO2 Intake & Output 04/30/24 05/01/24 05/01/24 18:59 06:59 18:59 Intake Total 200 1770 Output Total 1400 Balance 200 370 Intake: IV 200 10 Invasive Line 1 10 Oral 360 Hemodialysis 1400 Output: Hemodialysis 400 Hemodialysis Net Amount 1000 Other: # Voids 0 - Exam patient is awake, comfortable, no acute distress. Examination of the heart S1 and S2 Examination of the lungs bilateral breath sounds are heard Abdomen is soft nontender Examination lower extremities shows edema 1+ bilaterally with chronic skin changes. - Labs CBC & Chem 7: 05/01/24 08:42 05/01/24 08:42 Labs: Abnormal Lab Results - Last 24 Hours (Table) 05/01/24 05/01/24 Range/Units 08:42 08:42 RBC 2.15 L (4.30-5.90) m/uL Hgb 7.5 L (13.0-17.5) gm/dL Hct 24.1 L (39.0-53.0) % MCV 111.9 H D (80.0-100.0) fL RDW 17.3 H (11.5-15.5) % Plt Count 79 L (150-450) k/uL Lymphocytes # 0.5 L (1.0-4.8) k/uL Macrocytosis Marked A Potassium 3.3 L (3.5-5.1) mmol/L BUN 40 H (9-20) mg/dL Creatinine 5.13 H (0.66-1.25) mg/dL Glucose 119 H (74-99) mg/dL Calcium 6.9 L (8.4-10.2) mg/dL Microbiology - Last 24 Hours (Table) 04/27/24 18:52 Blood Culture - Preliminary Blood Assessment and Plan Assessment: 1. End-stage renal disease maintained on hemodialysis on Friday schedule. 2. Chronic systolic CHF ejection fraction of 30 to 35% with mild to moderate mitral regurgitation, pulmonic regurgitation and severe aortic stenosis. Cardiology following. 3. Chronic right lower extremity wound. 4. Chronic kidney disease mineral bone disease maintained on PhosLo. Phosphorus level 5.3. 5. Anemia of chronic kidney disease with component of acute blood loss. Iron replete. Status post blood transfusion. No active bleeding. On Aranesp. Hemoglobin stable at 8. Plan: replace potassium
[2024-05-01] MEDS: POTASSIUM CHLORIDE ER 20 MEQ TAB.ER PO STA (15:31)
--- NOTE | 2024-05-01 15:37 | P.PN ---
Subjective Progress Note Date: 05/01/24 Patient is a 78-year-old male with hyperlipidemia, anemia of chronic disease, severe aortic stenosis, ESRD (status post kidney transplant x 2, on dialysis Friday weekly), reduced ejection fraction CHF (20 to 25% EF on echo done in June 2023), chronic wound on right lower extremity (being seen by wound care at home), and MRSA (from bacteremia, last infection 03/18 and was given vancomycin) who came in for altered mental status. Patient was a poor historian and information was also gathered from daughter and son who are at bedside. Per family members, patient was very tired and sleepy as he was being taken to dialysis today which was below his baseline. During dialysis, patient was informing RNs that he did not feel well and would like to go to the hospital as he was feeling like he was getting confused and generally weak. He also noted that his right eye had blurry vision, was painful and had excessive tearing. He denied fevers, sweats, nausea, vomiting, abdominal pain, chest pain, shortness of breath, calf tenderness, tremors, facial asymmetry, focal weakness, changes in speech, bleeding, bruising, recent travel, or sick contacts. Patient was recently admitted in 03/18 for cellulitis of right lower extremity, PAD of right lower extremity found on CT that was stable, and positive MRSA on blood cultures and was prescribed vancomycin on discharge given after dialysis but family members are not sure if the medication duration was completed. In the ER, chest x-ray showed bilateral pleural effusions and increased cardiac border. EKG showed sinus bradycardia rate of 54 with PVCs wide QRS left bundle branch block and left axis deviation QTc normal. WBC 6.2 hemoglobin 7.4 platelet count 90,000 sodium 137 potassium 4.7 bicarb 34 BUN 24 creatinine 2.62 calcium 7.6 alk phos 219 troponin 0.158 TSH 0.882 serum EtOH less than 10. On admission, patient was afebrile at 97.8 Fahrenheit pulse 61 respiratory rate 18 blood pressure 108/44 O2 saturation 99% at room air 04/28/2024 patient seen and examined at bedside. Patient is more awake and alert today but still reported weakness that is worse than baseline ADLs. WBC 5.5 hemoglobin 7.5 platelet count 71,000 ESR 14 sodium 137 potassium 4.1 BUN 39 creatinine 3.51 glucose 72 CRP 1.9 alk phos 214 mag 1.6 calcium 6.8 albumin 3 random vancomycin less than 5 04/29/24 patient seen and examined at bedside. Patient reported that he has improved mentation and alertness and he generally feels better. There were no acute events or complications overnight. Echocardiogram left ejection fraction 30 to 35% with global hypokinesia and moderate concentric LVH severe pulmonary hypertension with mean gradient 71 mmHg and severe aortic stenosis with gradient 38 mmHg. WBC 4.6 hemoglobin 7.7 platelet count 70,000. 04/30/2024 patient seen and examined at bedside. Patient reported that he feels about the same as yesterday. He notes no new or worsening symptoms overnight. Vitals remained stable overnight. WBC 5 hemoglobin 8 platelet count 76,000 sodium 136 potassium 3.8 chloride 97 BUN 33 creatinine 3.59 calcium 7.3 procalcitonin 0.26. Head and neck ultrasound showed irregular soft tissue within adjacent anechoic cyst in the left parotid gland with recommended tissue sampling. 05/01/2024 patient seen and examined at bedside. Patient reported that he experiences intermittent shortness of breath. Overnight, patient developed lesion near the dialysis site on his left upper extremity. Left upper extremity Doppler was done and was positive for hematoma. Patient reported no new or worsening symptoms. WBC 5.6 hemoglobin 7.5 platelet count 79,000 sodium 137 potassium 3.3 BUN 40 creatinine 5.13 glucose 119 calcium 6.9 Review of systems: Pertinent positives and negatives as discussed in HPI, a complete review of systems was performed and all other systems are negative. Physical examination: Vital signs reviewed General: non toxic, no distress, appears at stated age Derm: no unusual rashes/lesions, warm, right lower extremity wound with dressing clean and dry no erythema of surrounding skin Head: atraumatic, normocephalic, symmetric Eyes: EOMI, anicteric sclera, pupils equal size, round, reactive to light ENT: Nose and ears atraumatic Neck: No cervical lymphadenopathy, trachea midline, supple, post-auricular mass near left Mouth: no lip lesion, mucus membranes dry Cardiovascular: S1S2 reg, 3/6 holosystolic murmur heard best at right 2nd ICS Lungs: Bibasilar crackles, no rhonchi, no rales, no accessory muscle use Abdominal: soft, nondistended, nontender to palpation, no guarding Ext: muscle strength 5 out of 5 strength in bilateral upper and lower distal extremities grossly, soft mobile mass on left lower extremity near dialysis port , no gross muscle atrophy, no contractures, positive dorsalis pedis pulse bilateral, no extremity edema Neuro: CN II-XI grossly intact, generalized weakness, no gross focal neuro deficits Psych: Alert and oriented x 3, appropriate affect and mood Assessment/Plan: 78 year old male who came in for altered mental status with possible multiple sources. #. Acute metabolic encephalopathy, resolved #. Acute anemia superimposed on anemia of chronic disease, other causes ruled out #. Systolic cardiomyopathy, unclear if ischemic or nonischemic (20 to 25% EF on echo done in June 2023) #. Severe aortic stenosis Cardiac monitoring Fall precautions Echocardiogram left ejection fraction 30 to 35% with global hypokinesia and moderate concentric LVH severe pulmonary hypertension with mean gradient 71 mmHg and severe aortic stenosis with gradient [address] head w/o contrast showed no acute processes or masses Serum phosphorus 5.3 which is elevated Serum 25 vitamin D oh hydroxylase 48.8 Vitamin B12 896 CBC posttransfusion hemoglobin was 7.4. -> 7.5. Procalcitonin 0.26 CBC and BMP at a.m. Blood cultures negative Urinalysis with reflex to culture pending Iron studies show anemia of chronic disease with transferrin decreased at 157 ferritin elevated at 776 and percent saturation decreased at 37 Received 1 unit packed RBC in the ED Catheterization done showed aortic pressure 130/70 Per cardiology, to evaluate for TAVR by Dr. Chow GI following. No intervention for now PT OT daily #. ESRD on hemodialysis 3 times per week, at baseline Nephrology following. Session of dialysis today. On Aranesp #. Right lower extremity wound due to PAD Consult wound care #. Left parotid mass, stable Patient currently stable and not experiencing any symptoms Head and neck ultrasound showed irregular soft tissue within adjacent anechoic cyst in the left parotid gland with recommended tissue sampling Biopsy and follow-up on outpatient basis #. Left upper extremity hematoma, stable Patient is stable and has no active bleeding on the site Left upper extremity Doppler ultrasound showed complex cystic masses in the left antecubital region which correlates to a hematoma Will monitor for now F: Oral intake E: Replete as needed N: Renal diet A: On fall precautions. May need assistance for ambulation DVT ppx: Subcutaneous heparin every 8 hours GI ppx: Protonix 40 mg IV daily Dispo: The patient is admitted with an anticipated greater than than 2 midnight stay for evaluation of altered mental status CODE STATUS: DO NOT RESUSCITATE Anticipated discharge place: Home Sandra Gomez MD PGY-1 IM Dictation was produced using [employer] dictation software. please excuse any grammatical, word or spelling errors. I have seen and evaluated the patient today. Discussed with the resident and agree with the residents finding and plan as documented in the resident's note. Changes highlighted in blue font. Objective - Vital Signs Vital signs: Vital Signs Temp 97.7 F 05/01/24 11:35 Pulse 67 05/01/24 11:35 Resp 20 05/01/24 11:35 BP 97/58 05/01/24 11:35 Pulse Ox 99 05/01/24 11:35 FiO2 Intake & Output 04/30/24 05/01/24 05/01/24 18:59 06:59 18:59 Intake Total 200 1770 Output Total 1400 Balance 200 370 Intake: IV 200 10 Invasive Line 1 10 Oral 360 Hemodialysis 1400 Output: Hemodialysis 400 Hemodialysis Net Amount 1000 Other: # Voids 0 - Labs CBC & Chem 7: 05/01/24 08:42 05/01/24 08:42 Labs: Abnormal Lab Results - Last 24 Hours (Table) 05/01/24 05/01/24 Range/Units 08:42 08:42 RBC 2.15 L (4.30-5.90) m/uL Hgb 7.5 L (13.0-17.5) gm/dL Hct 24.1 L (39.0-53.0) % MCV 111.9 H D (80.0-100.0) fL RDW 17.3 H (11.5-15.5) % Plt Count 79 L (150-450) k/uL Lymphocytes # 0.5 L (1.0-4.8) k/uL Macrocytosis Marked A Potassium 3.3 L (3.5-5.1) mmol/L BUN 40 H (9-20) mg/dL Creatinine 5.13 H (0.66-1.25) mg/dL Glucose 119 H (74-99) mg/dL Calcium 6.9 L (8.4-10.2) mg/dL Microbiology - Last 24 Hours (Table) 04/27/24 18:52 Blood Culture - Preliminary Blood
--- NOTE | 2024-05-01 16:33 | P.PN ---
Subjective Progress Note Date: 05/01/24 History of present illness: This is an 78-year-old male patient of Dr. Wade Phillips with past medical history of severe aortic stenosis, cardiomyopathy with severe LV dysfunction, end-stage renal disease on hemodialysis and status post kidney transplant x 2, chronic wound of the right lower extremity. peripheral vascular disease. We have been asked to evaluate the patient for CHF and severe . Patient presented to the hospital due to altered mental status, weakness and brought from dialysis. [place] [address]30 systolic. Heart rate was in the 50s and 60s. No hypoxia. Patient states that "I was goofy yesterday." He also complains of dizziness and lightheadedness. He occasionally has chills but no fever. He denies chest pain or pressure. He denies missing HD treatments. Blood pressure 115/60, heart rate 60, pulse ox 100%. Patient is seen today in the emergency center waiting for a bed on the cardiac stepdown unit. Patient has been started on IV antibiotics, IV fluids. He states that he had a previous cardiac cath a number of years ago in [place]. Mental status appears to be improved since he arrived. -EKG: Sinus rhythm with left bundle branch block 54 bpm, PVCs -Chest x-ray: Cardiomegaly, pulmonary vascular congestion and bilateral pleural effusions. -CT of the brain revealed no acute intracranial process. -Laboratory studies: Troponin 0.158, 0.143, 0.137. proBNP 102,000. C-reactive protein 1.9. TSH 0.883. Alcohol level less than 10 WBC 5.5, hemoglobin 7.5, platelet count 71. Sodium 136, potassium 4.1, BUN 39 creatinine 3.51. Influenza A, influenza B, RSV and COVID-19 not detected. -Home cardiac medications: Aspirin 81 mg daily, atorvastatin 80 mg at bedtime, Bumex 4 mg daily, Imdur 30 mg daily, Toprol XL 25 mg daily, also on midodrine as needed -Echocardiogram performed 07/01/2023 revealed EF of 20 to 25% with dilated left ventricle. Aortic sclerosis with mean gradient 18 mmHg. Moderate to severe right ventricular dilation. Moderate to severe tricuspid regurgitation. 04/29/24 Patient seen and examined. And is undergoing dialysis at this time. States that he is still getting lightheaded and had an episode with dialysis with a blood pressure 97/55. Patient also concerned about intermittent shortness of breath. Reviewed echocardiogram with the patient and discussed the aortic stenosis. Recommended patient consider aortic valve repair. However, patient's symptoms may be multifactorial especially with end-stage renal disease, low EF, anemia. Echocardiogram reveals EF of 30 to 35%, moderate concentric LVH, severe pulmonary hypertension with mean gradient of 71 mmHg, severe with mean gradient 38 Dr. Chow discussed case with Dr. Phillips and he will make a decision regarding next steps. 05/01/2024 Patient had a cardiac catheterization and a ATA yesterday. Cardiac catheterization showed heavily calcified coronary arteries which otherwise patent along with patent stent in the LAD his ATA showed EF of 35% with heavily calcified trileaflet aortic valve with severe stenosis Physical examination: Gen: This is a 78-year-old male in no acute distress VS: reviewed HEENT: Head is atraumatic, normocephalic. Pupils equal, round. Sclerae is anicteric. NECK: Supple. No JVD. LUNGS: Clear to auscultation. No wheezes or rhonchi. No intercostal retractions. HEART: Regular rate and rhythm. 4/6 AR. Pulses parvus at tardus, S2 not audible ABDOMEN: Soft No tenderness. EXTREMITIES: No pedal edema. No calf tenderness. NEUROLOGICAL: Patient is awake, alert. Assessment: Metabolic encephalopathy Dizziness and lightheadedness Elevated troponin secondary to chronic kidney disease Possibly related to anemia, anemia Thrombocytopenia End-stage renal disease on hemodialysis Chronic right lower extremity wound PAD Severe aortic stenosis Cardiomyopathy Chronic systolic heart failure Hyperlipidemia Chronic hypotension Plan: Continue current medications. Outpatient TAVR See if he is a candidate for EPO therapy for his anemia from his CKD. His hemoglobin is 7.5. No active signs of bleeding but he does have right upper extremity hematoma which has been stable. Patient has multiple comorbidities and therefore has a poor prognosis. However patient is cleared from cardiac standpoint to be discharged with recommended close outpatient follow-up. Contact cardiology for any questions. Objective - Vital Signs Vital signs: Vital Signs Temp 97.7 F 05/01/24 11:35 Pulse 67 05/01/24 11:35 Resp 20 05/01/24 11:35 BP 97/58 05/01/24 11:35 Pulse Ox 99 05/01/24 11:35 FiO2 Intake & Output 1105/01/24 05/01/24 18:59 06:59 18:59 Intake Total 200 1770 Output Total 1400 Balance 200 370 Intake: IV 200 10 Invasive Line 1 10 Oral 360 Hemodialysis 1400 Output: Hemodialysis 400 Hemodialysis Net Amount 1000 Other: # Voids 0 - Labs CBC & Chem 7: 05/01/24 08:42 05/01/24 08:42 Labs: Abnormal Lab Results - Last 24 Hours (Table) 05/01/24 05/01/24 Range/Units 08:42 08:42 RBC 2.15 L (4.30-5.90) m/uL Hgb 7.5 L (13.0-17.5) gm/dL Hct 24.1 L (39.0-53.0) % MCV 111.9 H D (80.0-100.0) fL RDW 17.3 H (11.5-15.5) % Plt Count 79 L (150-450) k/uL Lymphocytes # 0.5 L (1.0-4.8) k/uL Macrocytosis Marked A Potassium 3.3 L (3.5-5.1) mmol/L BUN 40 H (9-20) mg/dL Creatinine 5.13 H (0.66-1.25) mg/dL Glucose 119 H (74-99) mg/dL Calcium 6.9 L (8.4-10.2) mg/dL Microbiology - Last 24 Hours (Table) 04/27/24 18:52 Blood Culture - Preliminary Blood
[2024-05-02 08:41] LABS: Anisocytosis Slight; Basophils % (A) 1 %; Eosinophils # (A) 0.2 k/uL (0-0.7); Eosinophils % (A) 4 %; HCT 25.5 % (39.0-53.0); HGB 8.1 gm/dL (13.0-17.5); Hypochromasia Slight; Lymphocytes # (A) 0.8 k/uL (1.0-4.8); Lymphocytes % (A) 15 %; MCH 34.3 pg (25.0-35.0); MCHC 31.7 g/dL (31.0-37.0); MCV 108.1 fL (80.0-100.0); Mean Platelet Volume 11.9; Monocytes # (A) 0.5 k/uL (0-1.0); Monocytes % (A) 9 %; Neutrophils # (A) 3.9 k/uL (1.3-7.7); Neutrophils % (A) 69 %; RBC 2.36 m/uL (4.30-5.90); RDW 17.8 % (11.5-15.5); WBC 5.6 k/uL (3.8-10.6)
[2024-05-02 08:43] LABS: African American GFR (CKD) 10 (>60 ml/min/1.73 sqM); Anion Gap 11 mmol/L; Blood Urea Nitrogen 43 mg/dL (9-20); Calcium 7.1 mg/dL (8.4-10.2); Carbon Dioxide 27 mmol/L (22-30); Chloride 98 mmol/L (98-107); Glucose 85 mg/dL (74-99); Non-African American GFR(CKD) 9 (>60 ml/min/1.73 sqM); Sodium 136 mmol/L (137-145)
[2024-05-02 08:47] LABS: Platelet Count 86 k/uL (150-450)
[2024-05-02 08:48] LABS: Macrocytosis Marked
--- NOTE | 2024-05-02 10:41 | P.PN ---
Subjective patient is seen for follow-up for end-stage renal disease. Sitting on bedside chair. No significant complaints. Status post hemodialysis yesterday with UF of 1 L. Objective - Vital Signs Vital signs: Vital Signs Temp 97.8 F 05/02/24 09:45 Pulse 80 05/02/24 09:45 Resp 18 05/02/24 09:45 BP 97/60 05/02/24 09:45 Pulse Ox 97 05/02/24 09:45 FiO2 Intake & Output 05/01/24 05/02/24 05/02/24 18:59 06:59 18:59 Intake Total 2009 Output Total 1400 Balance 610 Weight 69.2 kg Intake: IV 10 Invasive Line 1 10 Oral 600 Hemodialysis 1400 Output: Hemodialysis 400 Hemodialysis Net Amount 1000 Other: # Voids 1 # Bowel Movements 1 - Exam patient is awake, comfortable, no acute distress. Examination of the heart S1 and S2 Examination of the lungs bilateral breath sounds are heard Abdomen is soft nontender Examination lower extremities shows edema 1+ bilaterally with chronic skin changes. - Labs CBC & Chem 7: 05/02/24 07:36 05/02/24 07:36 Labs: Abnormal Lab Results - Last 24 Hours (Table) 05/02/24 05/02/24 Range/Units 07:36 07:36 RBC 2.36 L (4.30-5.90) m/uL Hgb 8.1 L (13.0-17.5) gm/dL Hct 25.5 L (39.0-53.0) % MCV 108.1 H (80.0-100.0) fL RDW 17.8 H (11.5-15.5) % Plt Count 86 L (150-450) k/uL Lymphocytes # 0.8 L (1.0-4.8) k/uL Macrocytosis Marked A Sodium 136 L (137-145) mmol/L BUN 43 H (9-20) mg/dL Creatinine 5.48 H (0.66-1.25) mg/dL Calcium 7.1 L (8.4-10.2) mg/dL Assessment and Plan Assessment: 1. End-stage renal disease maintained on hemodialysis on Friday schedule. 2. Chronic systolic CHF ejection fraction of 30 to 35% with mild to moderate mitral regurgitation, pulmonic regurgitation and severe aortic stenosis. Cardiology following. 3. Chronic right lower extremity wound. 4. Chronic kidney disease mineral bone disease maintained on PhosLo. Phosphorus level 5.3. 5. Anemia of chronic kidney disease with component of acute blood loss. Iron replete. Status post blood transfusion. No active bleeding. On Aranesp. Hemoglobin stable at 8. Plan: hemodialysis in a.m. mostly for increase UF. Use midodrine with treatment tomorrow.
--- NOTE | 2024-05-02 14:57 | P.PN ---
Subjective Progress Note Date: 05/02/24 Subjective: Patient seen and examined at bedside. No acute events overnight. Pertinent positives and negatives as discussed above, a complete review of systems was performed and all other systems are negative. Vitals Signs Reviewed. General: Nontoxic, no distress, appears at stated age Derm: Warm, dry, right lower extremity covered in dressing Head: Atraumatic, normocephalic, symmetric Eyes: EOMI, no lid lag, anicteric sclera Mouth: No lip lesion, mucus membranes moist Cardiovascular: S1S2 reg, systolic murmur Lungs: Bibasilar rales, no accessory muscle use Abdominal: Soft, nontender to palpation, no guarding, no appreciable organomegaly Ext: No gross muscle atrophy, no edema, no contractures Neuro: CN II-XI grossly intact, no focal neuro deficits Psych: Alert, oriented, appropriate affect Data Reviewed Today: Pertinent Labs: Hemoglobin 8.1, platelet 86, sodium 136, creatinine 5.48 Imaging: No new imaging Assessment and Plan: Active: #. Acute metabolic encephalopathy, resolved #. ESRD on hemodialysis #. Acute anemia superimposed on anemia of chronic disease, other causes ruled out, status post 1 unit of PRBCs #. Systolic cardiomyopathy #. History of CAD #. Severe aortic stenosis -Nephrology note reviewed, hemodialysis as scheduled -Cardiology recommending outpatient TAVR -Patient currently has generalized weakness, might benefit from subacute rehab -Continue aspirin 81 mg, atorvastatin 80 mg -Not on guideline directed medical therapy -Bumex 4 mg daily Chronic: GERD Depression Gout DVT ppx: Subcu heparin Code status: Full code Anticipated discharge place: Pending clinical course Anticipated discharge time: Pending clinical course Objective - Vital Signs Vital signs: Vital Signs Temp 97.8 F 05/02/24 09:45 Pulse 68 05/02/24 12:00 Resp 18 05/02/24 12:00 BP 119/68 05/02/24 12:00 Pulse Ox 94 L 05/02/24 12:00 FiO2 Intake & Output 05/01/24 05/02/24 05/02/24 18:59 06:59 18:59 Intake Total 2009 480 Output Total 1400 1 Balance 610 479 Weight 69.2 kg Intake: IV 10 Invasive Line 1 10 Oral 600 480 Hemodialysis 1400 Output: Stool 1 Hemodialysis 400 Hemodialysis Net Amount 1000 Other: # Voids 1 1 # Bowel Movements 1 - Labs CBC & Chem 7: 05/02/24 07:36 05/02/24 07:36 Labs: Abnormal Lab Results - Last 24 Hours (Table) 05/02/24 05/02/24 Range/Units 07:36 07:36 RBC 2.36 L (4.30-5.90) m/uL Hgb 8.1 L (13.0-17.5) gm/dL Hct 25.5 L (39.0-53.0) % MCV 108.1 H (80.0-100.0) fL RDW 17.8 H (11.5-15.5) % Plt Count 86 L (150-450) k/uL Lymphocytes # 0.8 L (1.0-4.8) k/uL Macrocytosis Marked A Sodium 136 L (137-145) mmol/L BUN 43 H (9-20) mg/dL Creatinine 5.48 H (0.66-1.25) mg/dL Calcium 7.1 L (8.4-10.2) mg/dL
[2024-05-03 07:39] LABS: Anisocytosis Slight; Basophils % (A) 0 %; Eosinophils # (A) 0.3 k/uL (0-0.7); Eosinophils % (A) 5 %; HCT 23.2 % (39.0-53.0); HGB 7.3 gm/dL (13.0-17.5); Hypochromasia Marked; Lymphocytes # (A) 0.5 k/uL (1.0-4.8); Lymphocytes % (A) 11 %; MCH 34.8 pg (25.0-35.0); MCHC 31.3 g/dL (31.0-37.0); Macrocytosis Marked; Mean Platelet Volume 11.7; Monocytes # (A) 0.4 k/uL (0-1.0); Monocytes % (A) 9 %; Neutrophils # (A) 3.4 k/uL (1.3-7.7); Neutrophils % (A) 72 %; RBC 2.09 m/uL (4.30-5.90); RDW 17.3 % (11.5-15.5); WBC 4.7 k/uL (3.8-10.6)
[2024-05-03 08:03] LABS: African American GFR (CKD) 8 (>60 ml/min/1.73 sqM); Anion Gap 11 mmol/L; Blood Urea Nitrogen 53 mg/dL (9-20); Calcium 6.9 mg/dL (8.4-10.2); Carbon Dioxide 29 mmol/L (22-30); Chloride 99 mmol/L (98-107); Glucose 93 mg/dL (74-99); Non-African American GFR(CKD) 7 (>60 ml/min/1.73 sqM); Potassium 4.4 mmol/L (3.5-5.1); Sodium 139 mmol/L (137-145)
[2024-05-03 08:15] LABS: Platelet Count 78 k/uL (150-450)
--- NOTE | 2024-05-03 11:17 | P.PN ---
Subjective patient is seen for follow-up for end-stage renal disease. patient is seen on hemodialysis. Tolerating treatment well. He has received midodrine this morning and goal UF is about 2 L. Objective - Vital Signs Vital signs: Vital Signs Temp 97.7 F 05/03/24 08:40 Pulse 83 05/03/24 08:40 Resp 18 05/03/24 08:40 BP 106/63 05/03/24 08:40 Pulse Ox 94 L 05/03/24 08:40 FiO2 Intake & Output 05/02/24 05/03/24 05/03/24 18:59 06:59 18:59 Intake Total 600 240 Output Total 1 Balance 599 240 Weight 70.7 kg Intake: Oral 600 240 Output: Stool 1 Other: # Voids 1 1 # Bowel Movements 1 - Exam patient is awake, comfortable, no acute distress. Examination of the heart S1 and S2 Examination of the lungs bilateral breath sounds are heard Abdomen is soft nontender Examination lower extremities shows edema 1+ bilaterally with chronic skin changes. - Labs CBC & Chem 7: 05/03/24 07:20 05/03/24 07:20 Labs: Abnormal Lab Results - Last 24 Hours (Table) 05/03/24 05/03/24 Range/Units 07:20 07:20 RBC 2.09 L (4.30-5.90) m/uL Hgb 7.3 L (13.0-17.5) gm/dL Hct 23.2 L (39.0-53.0) % MCV 111.0 H (80.0-100.0) fL RDW 17.3 H (11.5-15.5) % Plt Count 78 L (150-450) k/uL Lymphocytes # 0.5 L (1.0-4.8) k/uL Macrocytosis Marked A BUN 53 H (9-20) mg/dL Creatinine 6.84 H (0.66-1.25) mg/dL Calcium 6.9 L (8.4-10.2) mg/dL Microbiology - Last 24 Hours (Table) 04/27/24 18:52 Blood Culture - Final Blood Assessment and Plan Assessment: 1. End-stage renal disease maintained on hemodialysis on Friday schedule. 2. Chronic systolic CHF ejection fraction of 30 to 35% with mild to moderate mitral regurgitation, pulmonic regurgitation and severe aortic stenosis. Cardiology following. 3. Chronic right lower extremity wound. 4. Chronic kidney disease mineral bone disease maintained on PhosLo. Phosphorus level 5.3. 5. Anemia of chronic kidney disease with component of acute blood loss. Iron replete. Status post blood transfusion. No active bleeding. On Aranesp. Plan: hemodialysis today with UF of about 2 L
[2024-05-03 12:33] VITALS: BP 99/54; RESP 16; TEMP 97.6
[2024-05-03 12:53] VITALS: PULSE 67
--- NOTE | 2024-05-03 14:14 | P.DS ---
Providers Date of admission: 04/27/24 14:42 Expected date of discharge: 05/03/24 Attending physician: Mk Jackson MD Consults: 04/27/24 14:42 Consult Physician Routine Consulting Provider: Raymundo Garcia Consult Reason/Comments: CKD Do you want consulting provider notified?: Yes Consult Physician Routine Consulting Provider: Paula Phillips Consult Reason/Comments: anemia Do you want consulting provider notified?: Yes Primary care physician: Fransisco Pereira Hospital Course: Final Diagnosis: #. Acute metabolic encephalopathy, resolved #. ESRD on hemodialysis #. Acute anemia superimposed on anemia of chronic disease, other causes ruled out, status post 1 unit of PRBCs, stable #. Systolic cardiomyopathy #. History of CAD #. Severe aortic stenosis, stable #. Left parotid mass, stable Hospital Course: Patient is a 78-year-old male with hyperlipidemia, anemia of chronic disease, severe aortic stenosis, ESRD (status post kidney transplant x 2, on dialysis Friday weekly), reduced ejection fraction CHF (20 to 25% EF on echo done in June 2023), chronic wound on right lower extremity (being seen by wound care at home), and MRSA (from bacteremia, last infection 03/18 and was given vancomycin) who came in for altered mental status. Patient was a poor historian and information was also gathered from daughter and son who are at bedside. Per family members, patient was very tired and sleepy as he was being taken to dialysis today which was below his baseline. During dialysis, patient was informing RNs that he did not feel well and would like to go to the hospital as he was feeling like he was getting confused and generally weak. He also noted that his right eye had blurry vision, was painful and had excessive tearing. He denied fevers, sweats, nausea, vomiting, abdominal pain, chest pain, shortness of breath, calf tenderness, tremors, facial asymmetry, focal weakness, changes in speech, bleeding, bruising, recent travel, or sick contacts. Patient was recently admitted in 03/18 for cellulitis of right lower extremity, PAD of right lower extremity found on CT that was stable, and positive MRSA on blood cultures and was prescribed vancomycin on discharge given after dialysis but family members are not sure if the medication duration was completed. In the ER, chest x-ray showed bilateral pleural effusions and increased cardiac border. EKG showed sinus bradycardia rate of 54 with PVCs wide QRS left bundle branch block and left axis deviation QTc normal. WBC 6.2 hemoglobin 7.4 platelet count 90,000 sodium 137 potassium 4.7 bicarb 34 BUN 24 creatinine 2.62 calcium 7.6 alk phos 219 troponin 0.158 TSH 0.882 serum EtOH less than 10. On admission, patient was afebrile at 97.8 Fahrenheit pulse 61 respiratory rate 18 blood pressure 108/44 O2 saturation 99% at room air Patient was admitted for further evaluation of acute encephalopathy, systolic cardiomyopathy with ejection fraction 30 to 35%, ESRD and acute anemia superimposed on anemia of chronic disease. 1 unit packed RBC was transfused in the ED. Encephalopathy resolved on 04/29. Generalized weakness still noted throughout hospital stay and PT OT consult initiated. Patient's anemia became stable throughout hospital stay after transfusion. Dialysis scheduled daily for ultrafiltration. Blood pressures during hospitalization were labile and required midodrine. Patient placed on PhosLo and Aranesp. Patient noted to have left parotid mass. At the neck ultrasound showed cystic mass that was stable for further evaluation on outpatient basis. Patient also developed hematoma on left upper extremity surrounding the hemodialysis port that was stable. Echocardiogram on admission showed severe aortic stenosis. Catheteriz ation done showed elevated aortic pressure 130/70. Patient ability to perform ADLs improved throughout hospital stay. Patient is cleared for discharge today. Metoprolol succinate dose decreased to 12.5 mg p.o. and Imdur 30 mg p.o. was discontinued. Patient was advised to follow-up with PCP for left parotid mass and cardiology for medical optimization of CHF and evaluation of aortic valve replacement on outpatient basis. Physical examination: General: non toxic, no distress, appears at stated age, normal weight Derm: no unusual rashes/lesions, warm, soft, nonmobile mass on left jaw, right lower extremity wound with dressing clean and dry no erythema of surrounding skin Head: atraumatic, normocephalic, symmetric Eyes: EOMI, anicteric sclera, pupils equal round reactive to light ENT: Nose and ears atraumatic Neck: No cervical lymphadenopathy, trachea midline, supple Mouth: no lip lesion, mucus membranes moist Cardiovascular: S1S2 reg, 3/6 holosystolic murmur heard best at right 2nd ICS Lungs: CTA bilateral, no rhonchi, no rales, no accessory muscle use Abdominal: soft, nondistended, nontender to palpation, no guarding Ext: muscle strength 5 out of 5 in all 4 extremities grossly, no gross muscle atrophy, no contractures, positive dorsalis pedis pulse bilateral, no extremity edema Neuro: CN II-XI grossly intact, no gross focal neuro deficits Psych: Alert, oriented, appropriate affect and mood A total of 36 minutes of time were spent preparing this complex discharge summary. Patient was discharged on 05/03/2024 at 1339. I have seen and evaluated the patient today. Discussed with the resident and agree with the residents finding and plan as documented in the resident's note. Changes highlighted in blue font. Patient Condition at Discharge: Stable Plan - Discharge Summary Discharge Rx Participant: No New Discharge Prescriptions: Continue Bumetanide [BUMEX] 4 mg PO DAILY oxyCODONE-APAP 5-325MG [Percocet 5-325 mg] 1 - 1.5 tab PO TID PRN PRN Reason: Pain PARoxetine [Paxil] 10 mg PO DAILY Cholecalciferol (Vitamin D3) [Vitamin D3 (50 Mcg = 2000 Iu)] 50 mcg PO DAILY Aspirin 81 mg PO DAILY #60 tab Atorvastatin [Lipitor] 80 mg PO HS #60 tab Eland-3/Dha/Epa/Fish Oil [Fish Oil 1,000 mg Softgel] 1 cap PO DAILY rOPINIRole HCL [Requip] 2 mg PO BID Calcium Acetate [PhosLo] 1,334 mg PO TID-W/MEALS allopurinoL [Zyloprim] 100 mg PO DAILY Midodrine [ProAmatine] 5 mg PO AC-BID PRN PRN Reason: Hypotension Lidocaine 5% Oint [Xylocaine 5% Oint] 1 applic TOPICAL DIRECTED PRN PRN Reason: PRIOR TO DIALYSIS Carboxymethylcellulose Sodium [Refresh Tears] 1 drop BOTH EYES TID Changed Metoprolol Succinate (ER) [Toprol XL] 12.5 mg PO DAILY #30 tab Discontinued Isosorbide Mononitrate ER [Imdur] 30 mg PO DAILY Discharge Medication List Eland-3/Dha/Epa/Fish Oil [Fish Oil 1,000 mg Softgel] 1 cap PO DAILY 01/29/22 [History] rOPINIRole HCL [Requip] 2 mg PO BID 05/01/22 [History] Bumetanide [BUMEX] 4 mg PO DAILY 08/16/22 [History] Calcium Acetate [PhosLo] 1,334 mg PO TID-W/MEALS 08/16/22 [History] allopurinoL [Zyloprim] 100 mg PO DAILY 02/12/23 [History] oxyCODONE-APAP 5-325MG [Percocet 5-325 mg] 1 - 1.5 tab PO TID PRN 02/12/23 [ History] Midodrine [ProAmatine] 5 mg PO AC-BID PRN 09/25/23 [History] Carboxymethylcellulose Sodium [Refresh Tears] 1 drop BOTH EYES TID 03/19/24 [History] Cholecalciferol (Vitamin D3) [Vitamin D3 (50 Mcg = 2000 Iu)] 50 mcg PO DAILY 03/19/24 [History] Lidocaine 5% Oint [Xylocaine 5% Oint] 1 applic TOPICAL DIRECTED PRN 03/19/24 [History] PARoxetine [Paxil] 10 mg PO DAILY 03/19/24 [History] Aspirin 81 mg PO DAILY #60 tab 03/22/24 [Rx] Atorvastatin [Lipitor] 80 mg PO HS #60 tab 03/22/24 [Rx] Metoprolol Succinate (ER) [Toprol XL] 12.5 mg PO DAILY #30 tab 05/03/24 [Rx] Follow up Appointment(s)/Referral(s): Sang Leblanc MD [STAFF PHYSICIAN] - 1 Week Fransisco Pereira MD [Primary Care Provider] - 1-2 days [facility], [NON-STAFF] - [facility] [NON-STAFF] - 05/05/24 10:15 am Patient Instructions/Handouts: Aortic Stenosis (DC), Dialysis Diet (DC), Anemia (DC), End Stage Kidney Disease (DC) Activity/Diet/Wound Care/Special Instructions: Please see PCP and cardiology. Discharge Disposition: HOME WITH HOME HEALTH SERVICES
== END 2024-05-03 16:31 | disposition home health service (06) | DRG 70 ==
LOC: EC 12:07 → 3SCARD 14:42
PROVIDERS: ADMIT Internal Medicine; ATTEND Internal Medicine
PROC: 30233N1 Transfusion of Nonautologous Red Blood Cells into Peripheral Vein, Percutaneous Approach (ICD-10-PCS; 2024-04-27)
PROC: B2111ZZ Fluoroscopy of Multiple Coronary Arteries using Low Osmolar Contrast (ICD-10-PCS; 2024-04-30)
PROC: B246ZZ4 Ultrasonography of Right and Left Heart, Transesophageal (ICD-10-PCS; 2024-04-30)
PROC: 4A023N7 Measurement of Cardiac Sampling and Pressure, Left Heart, Percutaneous Approach (ICD-10-PCS; principal; 2024-04-30 10:25)
DX: G93.41 Metabolic encephalopathy (principal); I21.4 Non-ST elevation (NSTEMI) myocardial infarction; I50.43 Acute on chronic combined systolic (congestive) and diastolic (congestive) heart failure; N18.6 End stage renal disease; F05 Delirium due to known physiological condition; I31.39 Other pericardial effusion (noninflammatory); I42.8 Other cardiomyopathies; L97.813 Non-pressure chronic ulcer of other part of right lower leg with necrosis of muscle; L97.912 Non-pressure chronic ulcer of unspecified part of right lower leg with fat layer exposed; Z94.0 Kidney transplant status; L76.32 Postprocedural hematoma of skin and subcutaneous tissue following other procedure; D62 Acute posthemorrhagic anemia; D63.1 Anemia in chronic kidney disease; D69.6 Thrombocytopenia, unspecified; E78.5 Hyperlipidemia, unspecified; F32.A Depression, unspecified; I25.10 Atherosclerotic heart disease of native coronary artery without angina pectoris; I27.20 Pulmonary hypertension, unspecified; I44.7 Left bundle-branch block, unspecified; I70.0 Atherosclerosis of aorta; K21.9 Gastro-esophageal reflux disease without esophagitis; L98.492 Non-pressure chronic ulcer of skin of other sites with fat layer exposed; M10.9 Gout, unspecified; M89.8X9 Other specified disorders of bone, unspecified site; Z79.82 Long term (current) use of aspirin; Z79.899 Other long term (current) drug therapy; Z86.14 Personal history of Methicillin resistant Staphylococcus aureus infection; Z86.16 Personal history of COVID-19; Z86.73 Personal history of transient ischemic attack (TIA), and cerebral infarction without residual deficits; Z87.891 Personal history of nicotine dependence; Z99.2 Dependence on renal dialysis; Y84.8 Other medical procedures as the cause of abnormal reaction of the patient, or of later complication, without mention of misadventure at the time of the procedure; Z66 Do not resuscitate; I95.89 Other hypotension; I73.9 Peripheral vascular disease, unspecified; R79.89 Other specified abnormal findings of blood chemistry; R01.1 Cardiac murmur, unspecified; I35.0 Nonrheumatic aortic (valve) stenosis; Z88.8 Allergy status to other drugs, medicaments and biological substances; I37.1 Nonrheumatic pulmonary valve insufficiency
CPT/HCPCS: 36415; 36430; 70450; 71046; 76536; 80048; 80053; 80202; 80320; 82140; 82306; 82607; 82728; 82746; 83540; 83550; 83605; 83735; 83880; 84100; 84145; 84443; 84484; 85025; 85610; 85652; 85730; 86140; 86850; 86900; 86901; 86920; 87040; 87636; 90935; 93005; 93306; 93312; 93320; 93325; 93454; 94760; 96365; 96366; 96367; 96375; 96376; 99291

== ENCOUNTER 2024-06-16 12:42 | Inpatient (IN) | payer OTHER, MEDICARE ==
--- NOTE | 2024-06-16 13:27 | ED ---
General Adult HPI - General Chief complaint: Fall Stated complaint: FALL Time Seen by Provider: 06/16/24 12:58 Source: patient Mode of arrival: ambulatory Limitations: no limitations - History of Present Illness Initial comments: Patient is an 78-year-old male with past medical history ESRD on dialysis , Friday, Friday presenting today for mechanical trip and fall, patient states that he was backing up towards his bed with his walker when he fell backwards and hit his head on the edge of a door. He did not lose consciousness and he was heard to have fallen by his son. His son came to see check on him and called EMS. Patient currently denies any new neck pain, new back pain or any new complaints. Denies chest pain or difficulty in breathing. Denies abdominal pain. Endorses chronic low back pain. On exam patient was no candida to have right flank pain to palpation and states that this occurred yesterday when he twisted the wrong way and "felt a pop", but this injury was not from his fall. States his last Tdap was within the last few years. Is AO x 3. Has not missed any sessions of dialysis. States he has had diarrhea for the last 3 days. Patient denies blood thinner use but states that he does bleed easily. - Related Data Home Medications Medication Instructions Recorded Confirmed [place]-3/Dha/Epa/Fish Oil [Fish Oil 1 cap PO DAILY 01/29/22 06/16/24 1,000 mg Softgel] rOPINIRole HCL [Requip] 2 mg PO BID 05/01/22 06/16/24 Bumetanide [BUMEX] 4 mg PO DAILY 08/16/22 06/16/24 Calcium Acetate [PhosLo] 1,334 mg PO TID-W/MEALS 08/16/22 06/16/24 allopurinoL [Zyloprim] 100 mg PO DAILY 02/12/23 06/16/24 oxyCODONE-APAP 5-325MG [Percocet 1 tab PO TID PRN 02/12/23 06/16/24 5-325 mg] Midodrine [ProAmatine] 5 mg PO AC-BID PRN 09/25/23 06/16/24 Carboxymethylcellulose Sodium 1 drop BOTH EYES TID 03/19/24 06/16/24 [Refresh Tears] Cholecalciferol (Vitamin D3) 50 mcg PO DAILY 03/19/24 06/16/24 [Vitamin D3 (50 Mcg = 2000 Iu)] Lidocaine 5% Oint [Xylocaine 5% 1 applic TOPICAL DIRECTED PRN 03/19/24 06/16/24 Oint] PARoxetine [Paxil] 10 mg PO DAILY 03/19/24 06/16/24 Previous Rx's Medication Instructions Recorded Aspirin 81 mg PO DAILY #60 tab 03/22/24 Atorvastatin [Lipitor] 80 mg PO HS #60 tab 03/22/24 Metoprolol Succinate (ER) [Toprol 12.5 mg PO DAILY #30 tab 05/03/24 XL] Allergies Allergy/AdvReac Type Severity Reaction Status Date / Time losartan Allergy Intermediate Swelling Verified 06/16/24 19:17 Aminoglycosides Allergy Unknown Unknown Verified 06/16/24 19:17 REINIER Inhibitors Allergy Unknown Verified 06/16/24 19:17 enalapril Allergy Swelling Verified 06/16/24 19:17 enalaprilat [From Vasotec] Allergy Swelling Verified 06/16/24 19:17 ibuprofen Allergy Unknown Verified 06/16/24 19:17 lisinopril Allergy Swelling Verified 06/16/24 19:17 vancomycin Allergy Unknown Verified 06/16/24 19:17 vitamin A Allergy Unknown Verified 06/16/24 19:17 gabapentin AdvReac Hallucinati Verified 06/16/24 19:17 ons/Nightma res Review of Systems ROS Statement: Those systems with pertinent positive or pertinent negative responses have been documented in the HPI. ROS Other: All systems not noted in ROS Statement are negative. 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%, history of renal transplant and 2 in 1992 from a donor and in 1995 from a living donor, history of neck fracture, history of Covid 19 infection, severe aortic stenosis, anemia of chronic disease neuropathy, dialysis Friday History of Any Multi-Drug Resistant Organisms: MRSA Date of last positivie culture/infection: 03/19/24 MDRO Source:: rt knee, blood Past Surgical History: Appendectomy Additional Past Surgical History / Comment(s): Kidney transplant in 07/28/1992 and 1995 and 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 Father Family Medical History: CVA/TIA Additional Family Medical History / Comment(s): of stroke. General Exam - General Exam Comments Initial Comments: PE: Exam is limited as patient was seen in a hallway bed CONSTITUTIONAL: No apparent distress, uncomfortable appearing, c-collar in p lace, awake and alert, nontoxic SKIN: Warm, dry, no jaundice, hives or petechiae, 2-3 cm laceration to the left of posterior occiput, bleeding controlled, abrasions to third and fourth digits of left hand, chronic linear wound to the PIP joint of the third digit of the right hand, small yellow-purple bruise to the mid thoracic region of the back EYES: Pupils are equally round, extraocular movements intact without nystagmus, clear conjunctiva, non-icteric sclera HENT: Normocephalic, atraumatic, dry mucus membranes, oropharynx clear without exudates NECK: , C collar in place, no midline TTP PULMONARY: Scant rales lower lobes; normal excursion, no accessory muscle use and no stridor CARDIOVASCULAR: Regular rate, rhythm, normal S1 and S2. No appreciated murmurs, rubs or gallops. Strong radial pulses with intact distal perfusion. No lower extremity edema GASTROINTESTINAL: Soft, active bowel sounds throughout, non-tender, non- distended, no palpable masses, no rebound or guarding. No hepatosplenomegaly MUSCULOSKELETAL: Extremities have no gross deformity, no edema, redness, or swelling. Tenderness palpation of the right flank, no midline spinal tenderness or step-offs to palpation NEUROLOGIC:_a/o x 3, GCS 15, normal mentation and speech. Moves all extremities x 4 without motor or sensory deficit, excellent and equal strength in all 4 extremities PSYCHIATRIC:_normal mood and affect, thought process is clear and linear Limitations: no limitations Course Vital Signs 06/16/24 06/16/24 06/16/24 12:51 18:54 20:00 Temperature 97.5 F L Pulse Rate 72 75 63 Respiratory 20 12 14 Rate Blood Pressure 115/72 126/112 107/59 O2 Sat by Pulse 94 L 100 95 Oximetry 06/16/24 06/17/24 06/17/24 23:53 03:49 07:00 Temperature 97.8 F 97.7 F 97.6 F Pulse Rate 66 79 68 Respiratory 16 16 14 Rate Blood Pressure 104/89 102/60 93/61 O2 Sat by Pulse 94 L 94 L 95 Oximetry 06/17/24 06/17/24 06/17/24 07:41 10:09 14:43 Temperature 98.1 F Pulse Rate 71 65 68 Respiratory 18 20 16 Rate Blood Pressure 94/59 103/55 111/69 O2 Sat by Pulse 96 94 L 96 Oximetry EKG Findings - EKG Comments: EKG Findings:: Sinus rhythm, 69 bpm, NH interval 199 ms, QRS duration 127 ms, QT/QTc 421/441 ms, Q wave noted in V2, V3, V4, no ST elevations or depressions, Compared to EKG performed on 04/27/2024, Q waves were present at that time as well these are not new, no new ST elevations or depressions from prior EKG Medical Decision Making - Medical Decision Making Was pt. sent in by a medical professional or institution (, PA, BIT GRINDER, urgent care, hospital, or jail...) When possible be specific @ -No Did you speak to anyone other than the patient for history (EMS, parent, family, police, friend...)? What history was obtained from this source @ -No Did you review nursing and triage notes (agree or disagree)? Why? @ -I reviewed nursing and triage notes Were old charts reviewed (outside hosp., previous admission, EMS record, old EKG, old radiological studies, urgent care reports/EKG's, jail records)? Report findings @ -Medical records reviewed-reviewed chest x-ray performed on 04/27/2024 and patient had a small right pleural effusion at that time, pleural effusion on CT chest appears larger today Differential Diagnosis (chest pain, altered mental status, abdominal pain women, abdominal pain men, vaginal bleeding, weakness, fever, dyspnea, syncope, headache, dizziness, GI bleed, back pain, seizure, CVA, palpatations, mental health, musculoskeletal)? @Differential Musculoskeletal Muscular strain, contusion, ligament sprain, fracture, arthritis,muscle spasm, nerve compression, .... This is not meant to be in all inclusive list EKG interpreted by me (3pts min.). @ -As above X-rays interpreted by me (1pt min.). @ -None done CT interpreted by me (1pt min.). @CT brain shows no evidence of intracranial hemorrhage or skull fracture, CT C- spine shows no evidence of fracture or malalignment, CT chest shows right pleur al effusion, left scapular fracture, CT abdomen pelvis shows no free air or large amount of free fluid or hematoma formation U/S interpreted by me (1pt. min.). @ -None done What testing was considered but not performed or refused? (CT, X-rays, U/S, labs)? Why? A chest x-ray was considered however patient was noted to have a right pleural effusion by emergency response technician during his CT of his abdomen and pelvis without contrast and asked if I would like a CT chest ordered to further evaluate, CT chest was then performed without contrast What meds were considered but not given or refused? Why? @IV fluids were considered however patient had reassuring vital signs, and has history ESRD requiring dialysis as well as CHF so in an effort to avoid fluid overload IV fluids were withheld Did you discuss the management of the patient with other professionals (professionals i.e. , PA, BIT GR[employer]ER, lab, RT, psych nurse, health care social worker, color finisher, teacher, hospital chief executive officer, case management director)? Give summary @ -No Was smoking cessation discussed for >3mins.? @ -No Was critical care preformed (if so, how long)? @ -No Were there social determinants of health that impacted care today? How? (Homelessness, low income, unemployed, alcoholism, drug addiction, transportation, low edu. Level, literacy, decrease access to med. care, [facility], rehab)? @ -No Was there de-escalation of care discussed even if they declined (Discuss DNR or withdrawal of care, Hospice)? @ -No What co-morbidities impacted this encounter? (DM, HTN, Smoking, COPD, CAD, Cancer, CVA, ARF, Chemo, Hep., AIDS, mental health diagnosis, sleep apnea, morbid obesity)? @End-stage renal disease, chronic pain, CHF Was patient admitted / discharged? Hospital course, mention meds given and route, prescriptions, significant lab abnormalities, going to OR and other per tinent info. @Admission- patient is an 78-year-old male past medical history ESRD on dialysis , Friday, Friday presenting today for a ground-level fall at home. Patient seen and assessed on arrival. Exam limited as patient is in a hallway bed. Patient denies any new pain since his fall, endorses chronic back pain pain and right flank pain that occurred after a twisting movement yesterday. Patient has a laceration of the left posterior occiput and abrasions to the fingers, moves these fingers for full range of motion without pain or difficulty, tenderness palpation of the right flank, extremities are otherwise atraumatic. Given patient's age and areas of pain will obtain CT brain, C- spine, chest x-ray, CT abdomen pelvis without contrast to further evaluate for blunt traumatic injury.. Patient's took his home pain medications, Percocet, prior to arrival so pain is currently controlled. Will obtain basic labs. Additionally patient does have a wet sounding cough and Rales in the bilateral lower lung bhardwaj a BNP, troponin, EKG were added to CMP and CBC. CT showed T10 compression fracture as well as left scapular fracture. Patient has no deformity of the left upper extremity. On reexamination he has mild tenderness palpation of the left scapular region without midline tenderness of the spine. As patient ambulates with a walker he will need to be admitted for observation for PT/OT as he will be unable to get around at home like he normally would. Patient will be also be placed in a shoulder immobilizer. Discussed plan with patient, he is agreeable to plan of care. Patient's labs are significant for an elevation in troponin, 0.485, of note patient has no signs of STEMI on EKG and denies any chest pain. I suspect this is secondary to a chronic troponin leak and ESRD, a repeat troponin will be ordered. Potassium 3.3. Ordered oral replacement. BNP 111,000, I again suspect this is secondary to end-stage renal disease. Patient no longer makes urine so Lasix was not ordered. He is due for dialysis tomorrow. Case disucssed with Dr. Ferrara, kindly accepts patient for admission. Of note, orthopedics consult was placed. Dr. Garza kindly called, rec'd CT scapula only if scapula fracture appears to involve the glenoid. On re-eval of CT, does appear to involve the glenoid so CT shoulder ordered. Pt appropriate for sling. Undiagnosed new problem with uncertain prognosis? @ -No Drug Therapy requiring intensive monitoring for toxicity (Heparin, Nitro, Insulin, Cardizem)? @ -No Were any procedures done? @ -No Diagnosis/symptom? @Fall, scapular fracture, thoracic spine compression fracture, hypokalemia Acute, or Chronic, or Acute on Chronic? Acute Uncomplicated (without systemic symptoms) or Complicated (systemic symptoms)? @Complicated Side effects of treatment? @ -No Exacerbation, Progression, or Severe Exacerbation? @ -No Poses a threat to life or bodily function? How? (Chest pain, USA, VT, pneumonia, PE, COPD, DKA, ARF, appy, cholecystitis, CVA, Diverticulitis, Homicidal, Suicidal, threat to staff... and all critical care pts) @Yes, scapular fracture and T10 fracture are threatening to bodily function - Lab Data Result diagrams: 06/17/24 06:40 06/17/24 06:40 Lab Results 06/16/24 06/16/24 06/16/24 Range/Units 15:04 15:04 15:04 WBC 4.8 (3.8-10.6) k/uL RBC 2.83 L (4.30-5.90) m/uL Hgb 9.7 L D (13.0-17.5) gm/dL Hct 31.0 L (39.0-53.0) % MCV 109.5 H (80.0-100.0) fL MCH 34.3 (25.0-35.0) pg MCHC 31.3 (31.0-37.0) g/dL RDW 19.2 H (11.5-15.5) % Plt Count 90 L (150-450) k/uL MPV 10.5 Neutrophils % 78 % Lymphocytes % 10 % Monocytes % 8 % Eosinophils % 2 % Basophils % 1 % Neutrophils # 3.7 (1.3-7.7) k/uL Lymphocytes # 0.5 L (1.0-4.8) k/uL Monocytes # 0.4 (0-1.0) k/uL Eosinophils # 0.1 (0-0.7) k/uL Basophils # 0.0 (0-0.2) k/uL Manual Slide Review Performed Large Platelets Present Polychromasia Present Hypochromasia Moderate Poikilocytosis Slight Anisocytosis Slight Macrocytosis Marked A Target Cells Present Sodium 141 (137-145) mmol/L Potassium 3.3 L (3.5-5.1) mmol/L Chloride 100 (98-107) mmol/L Carbon Dioxide 25 (22-30) mmol/L Anion Gap 16 mmol/L BUN 33 H (9-20) mg/dL Creatinine 4.51 H (0.66-1.25) mg/dL Est GFR (CKD-EPI)AfAm 13 (>60 ml/min/1.73 sqM) Est GFR (CKD-EPI)NonAf 11 (>60 ml/min/1.73 sqM) Glucose 98 (74-99) mg/dL Calcium 6.8 L (8.4-10.2) mg/dL Total Bilirubin 1.6 H (0.2-1.3) mg/dL AST 66 H (17-59) U/L ALT 35 (4-49) U/L Alkaline Phosphatase 191 H (38-126) U/L Troponin I 0.485 H* (0.000-0.034) ng/mL NT-Pro-B Natriuret Pep 375253 pg/mL Total Protein 6.8 (6.3-8.2) g/dL Albumin 3.5 (3.5-5.0) g/dL 06/16/24 Range/Units 16:25 WBC (3.8-10.6) k/uL RBC (4.30-5.90) m/uL Hgb (13.0-17.5) gm/dL Hct (39.0-53.0) % MCV (80.0-100.0) fL MCH (25.0-35.0) pg MCHC (31.0-37.0) g/dL RDW (11.5-15.5) % Plt Count (150-450) k/uL MPV Neutrophils % % Lymphocytes % % Monocytes % % Eosinophils % % Basophils % % Neutrophils # (1.3-7.7) k/uL Lymphocytes # (1.0-4.8) k/uL Monocytes # (0-1.0) k/uL Eosinophils # (0-0.7) k/uL Basophils # (0-0.2) k/uL Manual Slide Review Large Platelets Polychromasia Hypochromasia Poikilocytosis Anisocytosis Macrocytosis Target Cells Sodium (137-145) mmol/L Potassium (3.5-5.1) mmol/L Chloride (98-107) mmol/L Carbon Dioxide (22-30) mmol/L Anion Gap mmol/L BUN (9-20) mg/dL Creatinine (0.66-1.25) mg/dL Est GFR (CKD-EPI)AfAm (>60 ml/min/1.73 sqM) Est GFR (CKD-EPI)NonAf (>60 ml/min/1.73 sqM) Glucose (74-99) mg/dL Calcium (8.4-10.2) mg/dL Total Bilirubin (0.2-1.3) mg/dL AST (17-59) U/L ALT (4-49) U/L Alkaline Phosphatase (38-126) U/L Troponin I 0.459 H* (0.000-0.034) ng/mL NT-Pro-B Natriuret Pep pg/mL Total Protein (6.3-8.2) g/dL Albumin (3.5-5.0) g/dL Disposition Clinical Impression: Fall, Left scapula fracture, Compression fracture of T10 vertebra, Elevated troponin, Bilateral pleural effusion Disposition: ADMITTED IP TO THIS [facility] Condition: Stable
--- NOTE | 2024-06-16 15:06 | CT ---
EXAMINATION TYPE: CT brain [facility] [place] con DATE OF EXAM: 06/16/2024 COMPARISON: CT brain dated 04/27/[address] brain and C-spine dated 08/16/2022 CLINICAL INDICATION: Male, 78 years old with history of fall backwards, denies neck pain, 78 y/o; PHH , Fall backwards, denies neck pain. TECHNIQUE: CT scan of the head and cervical spine are performed without contrast. CT DLP: [address] CTDI: mGy Automated exposure control for dose reduction was used. Findings: Head CT: Ventricles, basal cisterns and sulci over convexities are markedly enlarged consistent with marked ge neralized atrophy. There is marked diffuse decreased density in the periventricular white matter consistent with marked chronic ischemic demyelination. There is no acute intra or extra-axial hemorrhage. Posterior fossa including the brainstem, fourth ventricle and cerebellar pontine angles are grossly n ormal. The intraorbital contents appear normal and symmetric. Visualized paranasal sinuses are well aerated. CT cervical spine: Craniovertebral junction relationships and prevertebral soft tissues are normal. The cervical vertebral segments are normal in height and alignment and there is no fracture subluxati on. There is marked disc space narrowing and spondylosis at the C5-6 and C6-7 levels and mild to moderate disc space narrowing spondylosis at the C4-5 level. There is mild facet arthropathy in the mid and l ower cervical spine. There is moderate to marked degeneration of the uncovertebral joints in the mid lower cervical spine. There is no bony encroachment of the cervical canal. There is moderate to marked bony encroachment on the right C3-4 neural foramina, right C4-5 neural foramina and moderate encroachment of the right C6 -7 foramina.. There appears to be displaced fracture of the left scapula and CT of the left shoulder is recommended . IMPRESSION: 1. Head CT: No acute bleed or mass effect. Marked stable senescent changes. 2. CT cervical spine: No acute trauma. Moderate to marked degenerative changes in the lower cervical spine. 3. Displaced fracture of the left scapula is suspected and CT of the left shoulder is recommended. [facility], , 06/16/2024 3:04 PM
--- NOTE | 2024-06-16 15:10 | CT ---
EXAMINATION TYPE: CT chest wo con DATE OF EXAM: 06/16/2024 COMPARISON: None CLINICAL INDICATION: Male, 78 years old with history of MICHAEL; PHH, Fluid seen in lungs on CT of abdome n/Pelvis. TECHNIQUE: CT scan of the thorax is performed without IV contrast. CT DLP: 418.[address] CTDI: mGy Automated exposure control for dose reduction was used. FINDINGS: There is a large right pleural effusion and a small left pleural effusion. There is no pneumothorax. There is no airspace consolidation. There is no suspicious lung mass or nodule. There is moderate to marked cardiomegaly. The great vessels chest are normal no mediastinal, hilar or axillary adenopathy. There is a fracture of the left scapula and CT left shoulder is recommended. There is a mild to moderate acute compression fracture of T10 without retropulsion. IMPRESSION: 1. Bilateral pleural effusions, large on the right and small on the left. 2. Cardiomegaly. 3. Fracture of the left scapula and CT of the shoulders recommended. 4. Mild to moderate acute compression fracture of T10 without retropulsion. [facility], , 06/16/2024 3:08 PM
--- NOTE | 2024-06-16 15:16 | CT ---
EXAMINATION TYPE: CT abdomen pelvis wo con DATE OF EXAM: 06/16/2024 COMPARISON: 06/03/2022 CLINICAL INDICATION: Male, 78 years old with history of Fall, right flank; PHH, Rt side flank pain. TECHNIQUE: CT scan of the abdomen and pelvis is performed without oral or IV contrast. CT DLP: 1025.[address] CTDI: mGy Automated exposure control for dose reduction was used. FINDINGS: Within the limitations of a non-contrast study, the following observations are made. There is a large right pleural effusion which has increased compared to the prior study. There is bee n interval development of a small left pleural effusion. Gallbladder is normal and there is no gallstone, wall thickening, pericholecystic fluid or distention . There is no biliary ductal dilatation. There is no organomegaly of the liver, pancreas, spleen or adrenal glands. There is surgical absence of the right kidney. The left kidney is moderately atrophic. There are no l eft renal calcifications with the exception of some renal vascular calcifications. There is no left h ydronephrosis. The caliber of the abdominal aorta is normal and there is no retroperitoneal adenopathy or hemorrhag e. The bowel loops are normal in caliber is no evidence of obstruction. No inflammatory changes are iden tified in the mesentery and there is no free intraperitoneal air or fluid. There is no pelvic mass, free fluid, abscess or adenopathy. The osseous structures and soft tissues are unremarkable. IMPRESSION: 1. Bilateral pleural effusions as described above. 2 right nephrectomy. 3 moderate left renal atrophy but no renal calcification or hydronephrosis [facility], , 06/16/2024 3:13 PM
[2024-06-16 15:37] LABS: ALT 35 U/L (4-49); AST 66 U/L (17-59); African American GFR (CKD) 13 (>60 ml/min/1.73 sqM); Albumin 3.5 g/dL (3.5-5.0); Alkaline Phosphatase 191 U/L (38-126); Anion Gap 16 mmol/L; Blood Urea Nitrogen 33 mg/dL (9-20); Calcium 6.8 mg/dL (8.4-10.2); Carbon Dioxide 25 mmol/L (22-30); Chloride 100 mmol/L (98-107); Glucose 98 mg/dL (74-99); Non-African American GFR(CKD) 11 (>60 ml/min/1.73 sqM); Potassium 3.3 mmol/L (3.5-5.1); Sodium 141 mmol/L (137-145); Total Bilirubin 1.6 mg/dL (0.2-1.3); Total Protein 6.8 g/dL (6.3-8.2)
[2024-06-16 15:45] LABS: Anisocytosis Slight; Basophils % (A) 1 %; Eosinophils # (A) 0.1 k/uL (0-0.7); Eosinophils % (A) 2 %; Hypochromasia Moderate; Lymphocytes # (A) 0.5 k/uL (1.0-4.8); Lymphocytes % (A) 10 %; MCH 34.3 pg (25.0-35.0); MCHC 31.3 g/dL (31.0-37.0); MCV 109.5 fL (80.0-100.0); Macrocytosis Marked; Mean Platelet Volume 10.5; Monocytes # (A) 0.4 k/uL (0-1.0); Monocytes % (A) 8 %; Neutrophils # (A) 3.7 k/uL (1.3-7.7); Neutrophils % (A) 78 %; Poikilocytosis Slight; RBC 2.83 m/uL (4.30-5.90); RDW 19.2 % (11.5-15.5); WBC 4.8 k/uL (3.8-10.6)
[2024-06-16 15:47] LABS: HGB 9.7 gm/dL (13.0-17.5)
[2024-06-16 16:13] LABS: NT-Pro-B-Type Natriuretic Pept 111000 pg/mL
[2024-06-16] MEDS ORDERED: MAG HYDROX/AL HYDROX/SIMETH 30 ML CUP PO PRN (16:13)
[2024-06-16] MEDS ORDERED: CALCIUM CARBONATE 500 MG CHEWABLE PO PRN (16:13)
[2024-06-16] MEDS ORDERED: NALOXONE 0.4 MG/ML 1 ML VIAL IV PRN (16:13)
[2024-06-16 16:23] LABS: Large Platelets Present; Polychromasia Present
[2024-06-16] MEDS: POTASSIUM CHLORIDE ER 20 MEQ TAB.ER PO STA (16:23)
[2024-06-16] MEDS: LOPERAMIDE 2 MG CAP PO STA (16:23)
[2024-06-16 16:24] LABS: Platelet Count 90 k/uL (150-450); Target Cells Present
--- NOTE | 2024-06-16 17:45 | P.HPIM ---
History of Present Illness H&P Date: 06/16/24 Patient is a 78-year-old male with history of ESRD status post kidney transplant on hemodialysis TTS, dyslipidemia, severe aortic stenosis, HFrEF EF 30 to 35%%, severe pulmonary hypertension, chronic lower extremity wounds bilateral, anemia of chronic disease, dyslipidemia presenting after mechanical fall. He claims that he was trying to use his walker and turned when he sustained a fall. He noticed significant pain in his left shoulder area, and also hit his head on the left side. Denies any current headaches, chest pain, abdominal pain, nausea vomiting. He has chronic diarrhea and occasional chest pain with exertion. He denies any orthopnea or PND. Denies any recent fevers or chills sick contacts or travel history. His last dialysis was yesterday. In the ED, temperature was 97.5, pulse 72, respiratory rate 20, blood pressure 115/72, saturating at 94% on room air. Head and cervical spine CT showed displaced fracture of left scapula, chest CT shows the same along with bilateral pleural effusion larger on the right, small on the left, mild to moderate acute compression fracture of T10 without retropulsion. Abdominal bloating CT did not show any acute process. Hemoglobin 9.7 from baseline, sodium 141, potassium 3.3, creatinine 4.51, total bili 1.6, AST 66, ALT 35, ALP 191. Patient being admitted for acute fractures as well as difficulty ambulating. Nephrology, orthopedic surgery and physical therapy consulted. Pertinent positives and negatives as discussed in HPI, a complete review of systems was performed and all other systems are negative. Patient seen and examined at bedside. Vital signs reviewed General: nontoxic, no distress, appears at stated age, chronically ill-appearing Derm: warm, dry Head: Left posterior head laceration with 3 zulay, normocephalic, symmetric Eyes: EOMI, no lid lag, anicteric sclera, pupils equal round reactive to light ENT: Nose and ears atraumatic Neck: No thyromegaly, supple Mouth: no lip lesion, mucus membranes moist Cardiovascular: S1S2 reg, no murmur, no edema, left arm AV fistula with good bruit and thrill Lungs: Bibasilar rales, no wheeze, no accessory muscle use Abdominal: soft, nontender to palpation, no guarding, no appreciable organomegaly Ext: Decreased range of motion at left shoulder due to pain, arm in a sling Neuro: CN II-XII grossly intact Psych: Alert, oriented, appropriate affect Assessment/Plan: Active: Mechanical fall Acute left displaced scapular fracture Acute compression fracture of T10 -Pain control with oral Tylenol as needed, oral [place] as needed -Orthopedic surgery consulted, pending recommendations -PT/OT consulted ESRD on hemodialysis Mild hypokalemia Anemia of chronic disease -Continue home diuretics once reconciled -Nephrology consulted for hemodialysis -10 mill equivalent oral potassium given once -Repeat BMP tomorrow -Repeat CBC tomorrow Elevated troponin -Likely in the setting of ESRD -No active chest pain -Monitor on telemetry -If any active chest pain, will consult cardiology -Continue aspirin 81 mg, atorvastatin 80 mg Bilateral pleural effusions -Secondary to ESRD and HFrEF -Not requiring any oxygen Chronic: Severe aortic stenosis HFrEF 30 to 35%, not in exacerbation Dyslipidemia Severe pulmonary hypertension Gout Reconciled home medications when confirmed by pharmacy. The patient is admitted with an anticipated greater than 2 midnight stay as inpatient status for evaluation of acute fracture. Surrogate decision-maker: Daughter CODE STATUS: Full code DVT prophylaxis: Subcu heparin Anticipated discharge date: Pending clinical course Anticipated discharge place: Pending clinical course A total of 66 minutes was spent on the care of this complex patient more than 50% of the time was spent in counseling and care coordination. 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%, history of renal transplant and 2 in 1992 from a donor and in 1995 from a living donor, history of neck fracture, history of Covid 19 infection, severe aortic stenosis, anemia of chronic disease neuropathy, dialysis Friday History of Any Multi-Drug Resistant Organisms: MRSA Date of last positivie culture/infection: 03/19/24 MDRO Source:: rt knee, blood Past Surgical History: Appendectomy Additional Past Surgical History / Comment(s): Kidney transplant in 07/28/1992 and 1995 and 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 Father Family Medical History: CVA/TIA Additional Family Medical History / Comment(s): of stroke. Medications and Allergies Home Medications Medication Instructions Recorded Confirmed Type [place]-3/Dha/Epa/Fish Oil [Fish Oil 1 cap PO DAILY 01/29/22 04/27/24 History 1,000 mg Softgel] rOPINIRole HCL [Requip] 2 mg PO BID 05/01/22 04/27/24 History Bumetanide [BUMEX] 4 mg PO DAILY 08/16/22 04/27/24 History Calcium Acetate [PhosLo] 1,334 mg PO TID-W/MEALS 08/16/22 04/27/24 History allopurinoL [Zyloprim] 100 mg PO DAILY 02/12/23 04/27/24 History oxyCODONE-APAP 5-325MG [Percocet 1 - 1.5 tab PO TID PRN 02/12/23 04/27/24 History 5-325 mg] Midodrine [ProAmatine] 5 mg PO AC-BID PRN 09/25/23 04/27/24 History Carboxymethylcellulose Sodium 1 drop BOTH EYES TID 03/19/24 04/27/24 History [Refresh Tears] Cholecalciferol (Vitamin D3) 50 mcg PO DAILY 03/19/24 04/27/24 History [Vitamin D3 (50 Mcg = 2000 Iu)] Lidocaine 5% Oint [Xylocaine 5% 1 applic TOPICAL DIRECTED PRN 03/19/24 04/27/24 History Oint] PARoxetine [Paxil] 10 mg PO DAILY 03/19/24 04/27/24 History Aspirin 81 mg PO DAILY #60 tab 03/22/24 04/27/24 Rx Atorvastatin [Lipitor] 80 mg PO HS #60 tab 03/22/24 04/27/24 Rx Metoprolol Succinate (ER) [Toprol 12.5 mg PO DAILY #30 tab 05/03/24 04/27/24 Rx XL] Allergies Allergy/AdvReac Type Severity Reaction Status Date / Time losartan Allergy Intermediate Swelling Verified 06/16/24 12:55 Aminoglycosides Allergy Unknown Unknown Verified 06/16/24 12:55 REINIER Inhibitors Allergy Unknown Verified 06/16/24 12:55 enalapril Allergy Swelling Verified 06/16/24 12:55 enalaprilat [From Vasotec] Allergy Swelling Verified 06/16/24 12:55 ibuprofen Allergy Unknown Verified 06/16/24 12:55 lisinopril Allergy Swelling Verified 06/16/24 12:55 vancomycin Allergy Unknown Verified 06/16/24 12:55 vitamin A Allergy Unknown Verified 06/16/24 12:55 gabapentin AdvReac Hallucinati Verified 06/16/24 12:55 ons/Nightma res Physical Exam Vitals: Vital Signs Temp Pulse Resp BP Pulse Ox 06/16/24 12:51 97.5 F L 72 20 115/72 94 L Intake and Output 06/16/24 06/16/24 06/16/24 06:59 14:59 22:59 Other: Weight 68.039 kg Results CBC & Chem 7: 06/16/24 15:04 06/16/24 15:04 Labs: Abnormal Lab Results - Last 24 Hours (Table) 06/16/24 06/16/24 06/16/24 Range/Units 15:04 15:04 15:04 RBC 2.83 L (4.30-5.90) m/uL Hgb 9.7 L D (13.0-17.5) gm/dL Hct 31.0 L (39.0-53.0) % MCV 109.5 H (80.0-100.0) fL RDW 19.2 H (11.5-15.5) % Plt Count 90 L (150-450) k/uL Lymphocytes # 0.5 L (1.0-4.8) k/uL Macrocytosis Marked A Potassium 3.3 L (3.5-5.1) mmol/L BUN 33 H (9-20) mg/dL Creatinine 4.51 H (0.66-1.25) mg/dL Calcium 6.8 L (8.4-10.2) mg/dL Total Bilirubin 1.6 H (0.2-1.3) mg/dL AST 66 H (17-59) U/L Alkaline Phosphatase 191 H (38-126) U/L Troponin I 0.485 H* (0.000-0.034) ng/mL
[2024-06-16] MEDS: HYDROcodone/APAP 5-325MG 1 EACH TAB PO PRN (18:53)
--- NOTE | 2024-06-16 21:48 | CT ---
EXAMINATION TYPE: CT shoulder LT wo con DATE OF EXAM: 06/16/2024 COMPARISON: Chest CT earlier today. CLINICAL INDICATION: Male, 78 years old with history of left scapular fracture; PHH, Left scapular fr acture. CT DLP: 486.4 mGycm Automated exposure control for dose reduction was used. FINDINGS: Acute comminuted fracture through the scapula along the anterior superior portion is redemonstrated. There is extension into the posterior aspect of the osseous glenoid. On current study there is more p rominent anterior positioning of the humeral head consistent with subluxation. There is severe glenoh umeral joint narrowing relative to the anterior margin of the osseous glenoid. A few small fracture f ragments inferior superior aspect as seen from the scaphoid/anterior aspect of the osseous glenoid. F ocal moderate to severe fluid posteriorly and laterally is redemonstrated. No acromioclavicular joint separation. No additional acute displaced fracture of the left humerus or visualized left-sided ribs. Small left pleural effusion is partially imaged. Vascular graft in the an terior proximal left upper extremity is noted. IMPRESSION: Acute comminuted fracture of the scaphoid as detailed above extending to the osseous deny oid anteriorly and posteriorly with a few small ossific fragments anteriorly present. There is new an terior glenohumeral joint subluxation noted. [facility], , 06/16/2024 9:45 PM
[2024-06-16] MEDS: ATORVASTATIN 40 MG TAB PO SCH (23:01)
[2024-06-16] MEDS: FAMOTIDINE 20 MG TAB PO SCH (23:02)
[2024-06-17] MEDS ORDERED: MORPHINE SULFATE 2 MG/ML SYRINGE IVP STA (00:11)
[2024-06-17] MEDS: MORPHINE SULFATE 4 MG/ML SYRINGE IVP STA (00:18)
[2024-06-17] MEDS: ACETAMINOPHEN TAB 325 MG TAB PO PRN (04:58)
[2024-06-17 07:14] LABS: Anisocytosis Slight; Basophils % (A) 0 %; Eosinophils # (A) 0.1 k/uL (0-0.7); Eosinophils % (A) 2 %; HCT 27.8 % (39.0-53.0); HGB 8.7 gm/dL (13.0-17.5); Hypochromasia Moderate; Lymphocytes # (A) 0.5 k/uL (1.0-4.8); Lymphocytes % (A) 14 %; MCH 34.4 pg (25.0-35.0); MCHC 31.4 g/dL (31.0-37.0); MCV 109.6 fL (80.0-100.0); Macrocytosis Marked; Mean Platelet Volume 11.2; Monocytes # (A) 0.3 k/uL (0-1.0); Monocytes % (A) 7 %; Neutrophils % (A) 75 %; Poikilocytosis Slight; RBC 2.54 m/uL (4.30-5.90); RDW 18.9 % (11.5-15.5)
[2024-06-17 07:29] LABS: Platelet Count 78 k/uL (150-450)
[2024-06-17 07:37] LABS: African American GFR (CKD) 11 (>60 ml/min/1.73 sqM); Anion Gap 10 mmol/L; Blood Urea Nitrogen 36 mg/dL (9-20); Carbon Dioxide 29 mmol/L (22-30); Chloride 100 mmol/L (98-107); Glucose 77 mg/dL (74-99); Magnesium 1.6 mg/dL (1.6-2.3); Non-African American GFR(CKD) 9 (>60 ml/min/1.73 sqM); Potassium 3.6 mmol/L (3.5-5.1); Sodium 139 mmol/L (137-145)
[2024-06-17 07:47] LABS: Calcium 6.3 mg/dL (8.4-10.2)
[2024-06-17] MEDS: CALCIUM GLUCONATE IN NACL 2 GM in SALINE 1 100ML.BAG IVPB ONE (08:12)
[2024-06-17] MEDS: METOPROLOL SUCCINATE (ER) 25 MG TAB.ER.24H PO SCH (08:12)
[2024-06-17] MEDS: ASPIRIN 81 MG PO SCH (08:12)
[2024-06-17] MEDS: BUMETANIDE 1 MG TAB PO SCH (08:12)
--- NOTE | 2024-06-17 09:48 | P.CNOR ---
History of Present Illness - [facility] Consult date: 06/17/24 Consult reason: fracture (Left scapular fracture, T10 compression fracture.) History of present illness: This is an 78-year-old male who presented to the emergency department after a ground-level fall yesterday while turning with his walker. He states that he lost his balance and fell onto his left shoulder and hit his head. The patient has significant medical history including end-stage renal disease status post kidney transplant on hemodialysis TTS, dyslipidemia, severe aortic stenosis, HFrEF EF 30 to 35%%, severe pulmonary hypertension, chronic lower extremity wounds bilateral, anemia of chronic disease, dyslipidemia. On exam and x-ray/CT scan in the emergency department he is found to have a comminuted scapular fracture with extension into the glenoid. He has anterior subluxation of the humeral head. He is also found to have a T10 compression fracture. We are consulted for orthopedic evaluation and treatment. 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%, history of renal transplant and 2 in 1992 from a donor and in 1995 from a living donor, history of neck fracture, history of Covid 19 infection, severe aortic stenosis, anemia of chronic disease neuropathy, dialysis Friday History of Any Multi-Drug Resistant Organisms: MRSA Year Discovered:: 03/19/24 MDRO Source:: rt knee, blood Past Surgical History: Appendectomy Additional Past Surgical History / Comment(s): Kidney transplant in 07/28/1992 and 1995 and 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 Father Family Medical History: CVA/TIA Additional Family Medical History / Comment(s): of stroke. Medications and Allergies Home Medications Medication Instructions Recorded Confirmed Type [place]-3/Dha/Epa/Fish Oil [Fish Oil 1 cap PO DAILY 01/29/22 06/16/24 History 1,000 mg Softgel] rOPINIRole HCL [Requip] 2 mg PO BID 05/01/22 06/16/24 History Bumetanide [BUMEX] 4 mg PO DAILY 08/16/22 06/16/24 History Calcium Acetate [PhosLo] 1,334 mg PO TID-W/MEALS 08/16/22 06/16/24 History allopurinoL [Zyloprim] 100 mg PO DAILY 02/12/23 06/16/24 History oxyCODONE-APAP 5-325MG [Percocet 1 tab PO TID PRN 02/12/23 06/16/24 History 5-325 mg] Midodrine [ProAmatine] 5 mg PO AC-BID PRN 09/25/23 06/16/24 History Carboxymethylcellulose Sodium 1 drop BOTH EYES TID 03/19/24 06/16/24 History [Refresh Tears] Cholecalciferol (Vitamin D3) 50 mcg PO DAILY 03/19/24 06/16/24 History [Vitamin D3 (50 Mcg = 2000 Iu)] Lidocaine 5% Oint [Xylocaine 5% 1 applic TOPICAL DIRECTED PRN 03/19/24 06/16/24 History Oint] PARoxetine [Paxil] 10 mg PO DAILY 03/19/24 06/16/24 History Aspirin 81 mg PO DAILY #60 tab 03/22/24 06/16/24 Rx Atorvastatin [Lipitor] 80 mg PO HS #60 tab 03/22/24 06/16/24 Rx Metoprolol Succinate (ER) [Toprol 12.5 mg PO DAILY #30 tab 05/03/24 06/16/24 Rx XL] Allergies Allergy/AdvReac Type Severity Reaction Status Date / Time losartan Allergy Intermediate Swelling Verified 06/16/24 19:17 Aminoglycosides Allergy Unknown Unknown Verified 06/16/24 19:17 REINIER Inhibitors Allergy Unknown Verified 06/16/24 19:17 enalapril Allergy Swelling Verified 06/16/24 19:17 enalaprilat [From Vasotec] Allergy Swelling Verified 06/16/24 19:17 ibuprofen Allergy Unknown Verified 06/16/24 19:17 lisinopril Allergy Swelling Verified 06/16/24 19:17 vancomycin Allergy Unknown Verified 06/16/24 19:17 vitamin A Allergy Unknown Verified 06/16/24 19:17 gabapentin AdvReac Hallucinati Verified 06/16/24 19:17 ons/Nightma res Physical Examination This is an 78-year-old male in no acute distress. He is alert and oriented x 3. Exam of the head neck reveals a posterior scalp laceration closed with zulay. He is nontender about the cervical spine or paraspinal musculature. He has fairly good cervical spine motion without difficulty or pain. Exam of the upper extremities reveals a sling in place on the left. There is some swelling and ecchymosis about the left shoulder. There is a palpable fistula in the upper arm. Range of motion of the shoulder is not tested. He has full wrist and finger motion bilaterally. Exam of the right upper extremity is unremarkable. Exam of the thoracic and lumbar spine reveal no obvious deformity. There is tenderness with palpation about the lower thoracic and upper lumbar region. Exam of the lower extremities reveals no obvious deformity. He can lift each leg off the bed independently with mild pain in the back in doing so. He has full foot and ankle motion bilaterally without difficulty or pain. No groin pain with internal or external rotation. Neurovascular status to the lower extremities is intact. Results CT scan of the shoulder reveals a comminuted scapular fracture which does extend into the inferior glenoid. There is slight anterior subluxation of the humeral head. No obvious fracture noted to the proximal humerus. CT of the chest reveals a T10 compression fracture with about 20 to 30% height loss, no retropulsion or displacement. Large bilateral pleural effusions noted. - Labs Labs: Abnormal Lab Results - Last 24 Hours (Table) 06/16/24 06/16/24 06/16/24 Range/Units 15:04 15:04 15:04 RBC 2.83 L (4.30-5.90) m/uL Hgb 9.7 L D (13.0-17.5) gm/dL Hct 31.0 L (39.0-53.0) % MCV 109.5 H (80.0-100.0) fL RDW 19.2 H (11.5-15.5) % Plt Count 90 L (150-450) k/uL Lymphocytes # 0.5 L (1.0-4.8) k/uL Macrocytosis Marked A Potassium 3.3 L (3.5-5.1) mmol/L BUN 33 H (9-20) mg/dL Creatinine 4.51 H (0.66-1.25) mg/dL Calcium 6.8 L (8.4-10.2) mg/dL Total Bilirubin 1.6 H (0.2-1.3) mg/dL AST 66 H (17-59) U/L Alkaline Phosphatase 191 H (38-126) U/L Troponin I 0.485 H* (0.000-0.034) ng/mL 06/16/24 06/17/24 06/17/24 Range/Units 16:25 06:40 06:40 RBC 2.54 L (4.30-5.90) m/uL Hgb 8.7 L (13.0-17.5) gm/dL Hct 27.8 L (39.0-53.0) % MCV 109.6 H (80.0-100.0) fL RDW 18.9 H (11.5-15.5) % Plt Count 78 L (150-450) k/uL Lymphocytes # 0.5 L (1.0-4.8) k/uL Macrocytosis Marked A Potassium (3.5-5.1) mmol/L BUN 36 H (9-20) mg/dL Creatinine 5.27 H (0.66-1.25) mg/dL Calcium 6.3 L* (8.4-10.2) mg/dL Total Bilirubin (0.2-1.3) mg/dL AST (17-59) U/L Alkaline Phosphatase (38-126) U/L Troponin I 0.459 H* (0.000-0.034) ng/mL H & H 06/16/24 06/17/24 Range/Units 15:04 06:40 Hgb 9.7 L D 8.7 L (13.0-17.5) gm/dL Hct 31.0 L 27.8 L (39.0-53.0) % Result Diagrams: 06/17/24 06:40 06/17/24 06:40 Assessment and Plan (1) Fall Current Visit: Yes Status: Acute Code(s): W19.XXXA - UNSPECIFIED FALL, INITIAL ENCOUNTER SNOMED Code(s): 3116284 (2) Left scapula fracture Current Visit: Yes Status: Acute Code(s): S42.102A - FRACTURE OF UNSP PART OF SCAPULA, LEFT SHOULDER, INIT SNOMED Code(s): 5359221 Plan: The clinical and radiographic findings are discussed with the patient. With his multiple medical comorbidities, it is recommended that he be treated conservatively for his fractures. He is in an arm sling for comfort and immobilization. He may allow the arm to dangle as needed. I have ordered a high LSO brace to treat the compression fracture. He would likely not tolerate a TLSO secondary to the scapular fracture. We we will continue to follow. He is to follow-up in our office upon discharge from the hospital.
--- NOTE | 2024-06-17 13:21 | P.NPCON ---
History of Present Illness - Reason for Consult end stage renal disease - History of Present Illness Patient is an 78-year-old male with end-stage renal disease on hemodialysis on Friday schedule. He is admitted to the hospital after a fall. Patient states that he tripped on a rug while using his walker. Unfortunately he did sustain fracture of the scapula and the scaphoid on the le ft side. No complaints of shortness of breath. No history of fever chills nausea vomiting or diarrhea or abdominal pain. Patient is scheduled for hemodialysis today. 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%, history of renal transplant and 2 in 1992 from a donor and in 1995 from a living donor, history of neck fracture, history of Covid 19 infection, severe aortic stenosis, anemia of chronic disease neuropathy, dialysis Friday History of Any Multi-Drug Resistant Organisms: MRSA Date of last positivie culture/infection: 03/19/24 MDRO Source:: rt knee, blood Past Surgical History: Appendectomy Additional Past Surgical History / Comment(s): Kidney transplant in 07/28/1992 and 1995 and 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 Father Family Medical History: CVA/TIA Additional Family Medical History / Comment(s): of stroke. Medications and Allergies Home Medications Medication Instructions Recorded Confirmed Type [place]-3/Dha/Epa/Fish Oil [Fish Oil 1 cap PO DAILY 01/29/22 06/16/24 History 1,000 mg Softgel] rOPINIRole HCL [Requip] 2 mg PO BID 05/01/22 06/16/24 History Bumetanide [BUMEX] 4 mg PO DAILY 08/16/22 06/16/24 History Calcium Acetate [PhosLo] 1,334 mg PO TID-W/MEALS 08/16/22 06/16/24 History allopurinoL [Zyloprim] 100 mg PO DAILY 02/12/23 06/16/24 History oxyCODONE-APAP 5-325MG [Percocet 1 tab PO TID PRN 02/12/23 06/16/24 History 5-325 mg] Midodrine [ProAmatine] 5 mg PO AC-BID PRN 09/25/23 06/16/24 History Carboxymethylcellulose Sodium 1 drop BOTH EYES TID 03/19/24 06/16/24 History [Refresh Tears] Cholecalciferol (Vitamin D3) 50 mcg PO DAILY 03/19/24 06/16/24 History [Vitamin D3 (50 Mcg = 2000 Iu)] Lidocaine 5% Oint [Xylocaine 5% 1 applic TOPICAL DIRECTED PRN 03/19/24 06/16/24 History Oint] PARoxetine [Paxil] 10 mg PO DAILY 03/19/24 06/16/24 History Aspirin 81 mg PO DAILY #60 tab 03/22/24 06/16/24 Rx Atorvastatin [Lipitor] 80 mg PO HS #60 tab 03/22/24 06/16/24 Rx Metoprolol Succinate (ER) [Toprol 12.5 mg PO DAILY #30 tab 05/03/24 06/16/24 Rx XL] Allergies Allergy/AdvReac Type Severity Reaction Status Date / Time losartan Allergy Intermediate Swelling Verified 06/16/24 19:17 Aminoglycosides Allergy Unknown Unknown Verified 06/16/24 19:17 REINIER Inhibitors Allergy Unknown Verified 06/16/24 19:17 enalapril Allergy Swelling Verified 06/16/24 19:17 enalaprilat [From Vasotec] Allergy Swelling Verified 06/16/24 19:17 ibuprofen Allergy Unknown Verified 06/16/24 19:17 lisinopril Allergy Swelling Verified 06/16/24 19:17 vancomycin Allergy Unknown Verified 06/16/24 19:17 vitamin A Allergy Unknown Verified 06/16/24 19:17 gabapentin AdvReac Hallucinati Verified 06/16/24 19:17 ons/Nightma res Physical Exam Vitals: Vital Signs Temp Pulse Resp BP Pulse Ox 06/17/24 10:09 65 20 103/55 94 L 06/17/24 07:41 98.1 F 71 18 94/59 96 06/17/24 07:00 97.6 F 68 14 93/61 95 06/17/24 03:49 97.7 F 79 16 102/60 94 L 06/16/24 23:53 97.8 F 66 16 104/89 94 L 06/16/24 20:00 63 14 107/59 95 06/16/24 18:54 75 12 126/112 100 Patient is awake, comfortable, no acute distress. Examination of the heart S1 and S2 Examination of the lungs bilateral breath sounds are heard Abdomen is soft nontender Examination of lower extremities shows right leg is wrapped. No significant edema noted. 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 End-stage renal disease on hemodialysis on Friday schedule 2. Status post fall and fracture of the left scapula and scaphoid bone 3. CKD mineral bone disorder 4. Anemia of chronic disease 5. Hypokalemia status post replacement 6. Hypocalcemia with end-stage renal disease. PTH was 231 last month which is on the lower side for ESRD. Patient will be started on low-dose calcitriol. Continue with Tums for now Plan: Hemodialysis today Check iron profile Add Aranesp Add calcitriol Thank you for the consultation. We will continue to follow the patient with you during his hospitalization.
--- NOTE | 2024-06-17 14:49 | P.PN ---
Subjective Progress Note Date: 06/17/24 Hospital Course: 78-year-old male with history of ESRD status post kidney transplant on hemodia lysis TTS, dyslipidemia, severe aortic stenosis, HFrEF EF 30 to 35%%, severe pulmonary hypertension, chronic lower extremity wounds bilateral, anemia of chronic disease, dyslipidemia presenting after mechanical fall. In the ED, temperature was 97.5, pulse 72, respiratory rate 20, blood pressure 115/72, saturating at 94% on room air. Head and cervical spine CT showed displaced fracture of left scapula, chest CT shows the same along with bilateral pleural effusion larger on the right, small on the left, mild to moderate acute compression fracture of T10 without retropulsion. Abdominal bloating CT did not show any acute process. Hemoglobin 9.7 from baseline, sodium 141, potassium 3.3, creatinine 4.51, total bili 1.6, AST 66, ALT 35, ALP 191. Troponin is also elevated. No chest pain. Patient being admitted for acute fractures as well as difficulty ambulating. Nephrology, orthopedic surgery and physical therapy consulted. Cardiology also consulted. Subjective: Patient seen and examined at bedside. No acute events overnight. Denies any chest pain. Complaining of right hand cramping. Pertinent positives and negatives as discussed above, a complete review of systems was performed and all other systems are negative. Vitals Signs Reviewed. General: nontoxic, no distress, appears at stated age, chronically ill-appearing Derm: warm, dry, right lower extremity covered in dressing Head: Left posterior head laceration with 3 zulay, normocephalic, symmetric Eyes: EOMI, no lid lag, anicteric sclera, pupils equal round reactive to light ENT: Nose and ears atraumatic Neck: No thyromegaly, supple Mouth: no lip lesion, mucus membranes moist Cardiovascular: S1S2 reg, no murmur, no edema, left arm AV fistula with good bruit and thrill Lungs: Bibasilar rales, no wheeze, no accessory muscle use Abdominal: soft, nontender to palpation, no guarding, no appreciable organ omegaly Ext: Decreased range of motion at left shoulder due to pain, arm in a sling Neuro: CN II-XII grossly intact Psych: Alert, oriented, appropriate affect Data Reviewed Today: Pertinent Labs: WBC 4, hemoglobin 8.7, platelets 78, creatinine 5.27, calcium 6.3, magnesium 1.6 Imaging: Shoulder CT showed acute comminuted fracture of the scaphoid, new anterior glenohumeral joint subluxation. Assessment and Plan: Mechanical fall Acute left displaced scapular fracture Acute compression fracture of T10 -Pain control with oral Tylenol as needed, oral [place] as needed, IV Dilaudid as needed, monitor for sedation -Orthopedic surgery note reviewed, conservative management, hide LSO brace for compression fracture, immobilization for scapular fracture -PT/OT consulted ESRD on hemodialysis Hypocalcemia Anemia of chronic disease -Continue Bumex 4 mg daily -Nephrology note reviewed, iron studies pending, start darbepoetin, added calcitriol weekly -Continue PhosLo 3 times daily - patient was given 2 g of calcium gluconate this morning Elevated troponin -Likely in the setting of ESRD -No active chest pain -Monitor on telemetry -Cardiology consulted, pending recommendations -Continue aspirin 81 mg, atorvastatin 80 mg Bilateral pleural effusions -Secondary to ESRD and HFrEF -Not requiring any oxygen Right lower extremity chronic venous stasis dermatitis -Wound care consulted Chronic: Severe aortic stenosis HFrEF 30 to 35%, not in exacerbation Dyslipidemia Severe pulmonary hypertension Gout DVT ppx: Subcu heparin Code status: Full code Anticipated discharge place: Pending clinical course Anticipated discharge time: Pending clinical course Objective - Vital Signs Vital signs: Vital Signs Temp 98.1 F 06/17/24 07:41 Pulse 68 06/17/24 14:43 Resp 16 06/17/24 14:43 BP 111/69 06/17/24 14:43 Pulse Ox 96 06/17/24 14:43 FiO2 Intake & Output 06/16/24 06/17/24 06/17/24 18:59 06:59 18:59 Weight 68.039 kg - Labs CBC & Chem 7: 06/17/24 06:40 06/17/24 06:40 Labs: Abnormal Lab Results - Last 24 Hours (Table) 06/16/24 06/16/24 06/16/24 Range/Units 15:04 15:04 15:04 RBC 2.83 L (4.30-5.90) m/uL Hgb 9.7 L D (13.0-17.5) gm/dL Hct 31.0 L (39.0-53.0) % MCV 109.5 H (80.0-100.0) fL RDW 19.2 H (11.5-15.5) % Plt Count 90 L (150-450) k/uL Lymphocytes # 0.5 L (1.0-4.8) k/uL Macrocytosis Marked A Potassium 3.3 L (3.5-5.1) mmol/L BUN 33 H (9-20) mg/dL Creatinine 4.51 H (0.66-1.25) mg/dL Calcium 6.8 L (8.4-10.2) mg/dL Total Bilirubin 1.6 H (0.2-1.3) mg/dL AST 66 H (17-59) U/L Alkaline Phosphatase 191 H (38-126) U/L Troponin I 0.485 H* (0.000-0.034) ng/mL 06/16/24 06/17/24 06/17/24 Range/Units 16:25 06:40 06:40 RBC 2.54 L (4.30-5.90) m/uL Hgb 8.7 L (13.0-17.5) gm/dL Hct 27.8 L (39.0-53.0) % MCV 109.6 H (80.0-100.0) fL RDW 18.9 H (11.5-15.5) % Plt Count 78 L (150-450) k/uL Lymphocytes # 0.5 L (1.0-4.8) k/uL Macrocytosis Marked A Potassium (3.5-5.1) mmol/L BUN 36 H (9-20) mg/dL Creatinine 5.27 H (0.66-1.25) mg/dL Calcium 6.3 L* (8.4-10.2) mg/dL Total Bilirubin (0.2-1.3) mg/dL AST (17-59) U/L Alkaline Phosphatase (38-126) U/L Troponin I 0.459 H* (0.000-0.034) ng/mL
[2024-06-17 15:21] LABS: Hepatitis B Surface Antigen Nonreactive (Nonreactive)
[2024-06-17 17:27] LABS: Glucose,Whole Blood 112 mg/dL (70-110)
[2024-06-17] MEDS: CALCIUM ACETATE 667 MG TAB PO SCH (18:14)
[2024-06-17] MEDS: HEPARIN SODIUM,PORCINE 5,000 UNIT/ML 1 ML VIAL SQ SCH (18:14)
[2024-06-17] MEDS: DARBEPOETIN ALFA 60 MCG/0.3 ML SYRINGE SQ SCH (22:27)
[2024-06-18 07:32] LABS: Anisocytosis Slight; Basophils % (A) 0 %; Eosinophils # (A) 0.1 k/uL (0-0.7); Eosinophils % (A) 2 %; HCT 26.4 % (39.0-53.0); HGB 8.3 gm/dL (13.0-17.5); Hypochromasia Marked; Lymphocytes # (A) 0.5 k/uL (1.0-4.8); Lymphocytes % (A) 9 %; MCH 34.5 pg (25.0-35.0); MCHC 31.3 g/dL (31.0-37.0); MCV 110.3 fL (80.0-100.0); Macrocytosis Marked; Mean Platelet Volume 10.3; Monocytes # (A) 0.4 k/uL (0-1.0); Monocytes % (A) 8 %; Neutrophils # (A) 3.9 k/uL (1.3-7.7); Neutrophils % (A) 78 %; RBC 2.39 m/uL (4.30-5.90); RDW 18.2 % (11.5-15.5)
[2024-06-18 07:49] LABS: Platelet Count 75 k/uL (150-450)
[2024-06-18 07:50] LABS: African American GFR (CKD) 18 (>60 ml/min/1.73 sqM); Anion Gap 9 mmol/L; Blood Urea Nitrogen 23 mg/dL (9-20); Calcium 7.1 mg/dL (8.4-10.2); Carbon Dioxide 31 mmol/L (22-30); Chloride 97 mmol/L (98-107); Glucose 87 mg/dL (74-99); Non-African American GFR(CKD) 16 (>60 ml/min/1.73 sqM); Potassium 3.9 mmol/L (3.5-5.1); Sodium 137 mmol/L (137-145)
[2024-06-18] MEDS: PARoxetine 10 MG TAB PO SCH (08:09)
[2024-06-18] MEDS: allopurinoL 100 MG TAB PO SCH (08:10)
[2024-06-18] MEDS: FAMOTIDINE 20 MG TAB PO SCH (08:10)
--- NOTE | 2024-06-18 10:57 | P.PN ---
Subjective Patient is seen for follow-up for end-stage renal disease. Maintained on TTS schedule. Admitted to the hospital status post fall left shoulder fracture. He had significant bleeding from the AV fistula site after dialysis yesterday. Hemoglobin is 8.3 g/dL today. Platelet counts are low at 75,000. Objective - Vital Signs Vital signs: Vital Signs Temp 97.6 F 06/18/24 08:00 Pulse 66 06/18/24 08:00 Resp 19 06/18/24 08:00 BP 111/69 06/18/24 08:00 Pulse Ox 100 06/18/24 08:00 FiO2 Intake & Output 06/17/24 06/18/24 06/18/24 18:59 06:59 18:59 Intake Total 500 240 Output Total 2500 Balance -2000 240 Weight 68 kg Intake: Oral 240 Hemodialysis 500 Output: Hemodialysis 1500 Hemodialysis Net Amount 1000 - Exam Patient is awake, comfortable, no acute distress. Examination of the heart S1 and S2 Examination of the lungs bilateral breath sounds are heard Abdomen is soft nontender Examination of lower extremities shows right leg is wrapped. No significant fiordaliza ma noted. Left shoulder and sling [employer] exam grossly intact - Labs CBC & Chem 7: 06/18/24 06:11 06/18/24 06:11 Labs: Abnormal Lab Results - Last 24 Hours (Table) 06/17/24 06/18/24 06/18/24 Range/Units 17:26 06:11 06:11 RBC 2.39 L (4.30-5.90) m/uL Hgb 8.3 L (13.0-17.5) gm/dL Hct 26.4 L (39.0-53.0) % MCV 110.3 H (80.0-100.0) fL RDW 18.2 H (11.5-15.5) % Plt Count 75 L (150-450) k/uL Lymphocytes # 0.5 L (1.0-4.8) k/uL Macrocytosis Marked A Chloride 97 L (98-107) mmol/L Carbon Dioxide 31 H (22-30) mmol/L BUN 23 H (9-20) mg/dL Creatinine 3.46 H (0.66-1.25) mg/dL POC Glucose (mg/dL) 112 H (70-110) mg/dL Calcium 7.1 L (8.4-10.2) mg/dL Assessment and Plan Assessment: 1. End-stage renal disease on hemodialysis on Friday schedule 2. Status post fall and fracture of the left scapula and scaphoid bone 3. CKD mineral bone disorder 4. Anemia of chronic disease 5. Hypokalemia status post replacement 6. Hypocalcemia with end-stage renal disease. PTH was 231 last month which is on the lower side for ESRD. Patient will be started on low-dose calcitriol. Continue with Tums for now 7. Thrombocytopenia Plan: Hemodialysis in a.m. Continue Aranesp and calcitriol DDAVP x 1
[2024-06-18] MEDS: DESMOPRESSIN ACETATE 20 MCG in SODIUM CHLORIDE 0.9% 50 ML IVPB ONE (11:23)
[2024-06-18] MEDS: COLLAGENASE 250 UNIT/GM OINTMENT 30 GM TUBE TOPICAL SCH (11:24)
--- NOTE | 2024-06-18 12:22 | P.CRDCN ---
History of Present Illness Consult date: 06/18/24 Consult reason: aortic stenosis Chief complaint: Status post fall History of present illness: History of present illness: Patient is a pleasant 78-year-old male with significant past medical history of end-stage renal disease status post kidney transplant on hemodialysis, hyperlipidemia, severe aortic stenosis, cardiomyopathy with EF 30-35%, severe pulmonary hypertension, chronic lower extremity wounds bilaterally, anemia of chronic disease who presented to the emergency department status post mechanical fall. He does follow with Dr. Silva in the office. He states he was using a walker at home and had a trip and fall hitting his head and landing on his shoulder. He was found to have displaced fracture of the left scapula and acute compression fraction of T10. He was evaluated by orthopedics with no plans for surgery at this time however recommend transfer to [facility] for higher level of care if surgery were to be needed. He did have ATA 04/30/2024 which showed severe aortic stenosis with a EF 35%. Left heart cath 04/30/2024 with calcified coronaries without significant obstructive disease. He does admit that he has been feeling more tired, weak, short of breath over the past few months that has been getting progressively worse. He does have to stop and catch his breath when he was walking across the room. He is on 2 L nasal cannula home O2 at home. Labs reviewed: Troponin 0.455, 0.459, BNP 111,000, creatinine 5.27, potassium 3.6, hemoglobin 8.7. He is currently sitting upright in bedside chair and reports that his pain is well-controlled. No chest pain or pressure. REVIEW OF SYSTEMS: No fever or chills. No cough or expectoration. No diaphoresis. Patient denies headache, dizziness, blurred vision, double vision. Patient denies any stomach discomfort. No nausea, vomiting. No hematochezia. No hematemesis. Denies any black stools or blood in his stools. Denies dysuria or hematuria. No muscle weakness or numbness. No chest pain or pressure. Reports shortness of breath, fatigue, generalized weakness. PHYSICAL EXAMINATION: This is a 78-year-old male in no apparent distress at the time of my examination. HEENT: Head is atraumatic, normocephalic. Pupils are equal, round. Sclerae anicteric. Conjunctivae are clear. Mucous membranes of the mouth are moist. Neck is supple. There is no jugular venous distention. No carotid bruit is heard. CHEST EXAMINATION: Lungs are clear to auscultation. No chest wall tenderness is noted on palpation or with deep breathing. On 2 L nasal cannula. HEART EXAMINATION: Heart regular rate and rhythm. S1, S2 heard. + murmur, no gallops or rub. ABDOMEN: Soft, nontender. Bowel sounds are heard. EXTREMITIES: 2+ peripheral pulses with no evidence of peripheral edema and no calf tenderness noted. Bandage on right olivares. NEUROLOGIC EXAMINATION: Patient is awake, alert and oriented x3. IMPRESSION AND PLAN: Severe symptomatic aortic stenosis End-stage renal disease status post kidney transplant on hemodialysis Hyperlipidemia Cardiomyopathy with EF 30-35% Pulmonary hypertension Chronic lower extremity wounds Anemia PLAN: Patient does have severe symptomatic aortic stenosis with progression of symptoms over the past 2-3 months making him high risk for any orthopedic surgery. If he is to undergo surgery would recommend balloon valvuloplasty of aortic valve prior to surgery. Agree with transfer to [facility]. I am dictating on behalf of Dr. Galo Chow's history/physical and assessment/plan. 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%, history of renal transplant and 2 in 1992 from a donor and in 1995 from a living donor, history of neck fracture, history of Covid 19 infection, severe aortic stenosis, anemia of chronic disease neuropathy, dialysis Friday History of Any Multi-Drug Resistant Organisms: MRSA Date of last positivie culture/infection: 03/19/24 MDRO Source:: rt knee, blood Past Surgical History: Appendectomy Additional Past Surgical History / Comment(s): Kidney transplant in 07/28/1992 and 1995 and the patient has a fistula in the left upper extremity Past Anesthesia/Blood Transfusion Reactions: No Reported Reaction Past Psychological History: No Psychological Hx Reported Smoking Status: Former smoker Past Alcohol Use History: Rare Additional Past Alcohol Use History / Comment(s): per pt quit smoking ten years ago Past Drug Use History: None Reported - Past Family History Mother Family Medical History: Cancer Additional Family Medical History / Comment(s): Pancreatic cancer. Father Family Medical History: CVA/TIA Additional Family Medical History / Comment(s): of stroke. Medications and Allergies Home Medications Medication Instructions Recorded Confirmed Type [place]-3/Dha/Epa/Fish Oil [Fish Oil 1 cap PO DAILY 01/29/22 06/16/24 History 1,000 mg Softgel] rOPINIRole HCL [Requip] 2 mg PO BID 05/01/22 06/16/24 History Bumetanide [BUMEX] 4 mg PO DAILY 08/16/22 06/16/24 History Calcium Acetate [PhosLo] 1,334 mg PO TID-W/MEALS 08/16/22 06/16/24 History allopurinoL [Zyloprim] 100 mg PO DAILY 02/12/23 06/16/24 History oxyCODONE-APAP 5-325MG [Percocet 1 tab PO TID PRN 02/12/23 06/16/24 History 5-325 mg] Midodrine [ProAmatine] 5 mg PO AC-BID PRN 09/25/23 06/16/24 History Carboxymethylcellulose Sodium 1 drop BOTH EYES TID 03/19/24 06/16/24 History [Refresh Tears] Cholecalciferol (Vitamin D3) 50 mcg PO DAILY 03/19/24 06/16/24 History [Vitamin D3 (50 Mcg = 2000 Iu)] Lidocaine 5% Oint [Xylocaine 5% 1 applic TOPICAL DIRECTED PRN 03/19/24 06/16/24 History Oint] PARoxetine [Paxil] 10 mg PO DAILY 03/19/24 06/16/24 History Aspirin 81 mg PO DAILY #60 tab 03/22/24 06/16/24 Rx Atorvastatin [Lipitor] 80 mg PO HS #60 tab 03/22/24 06/16/24 Rx Metoprolol Succinate (ER) [Toprol 12.5 mg PO DAILY #30 tab 05/03/24 06/16/24 Rx XL] Allergies Allergy/AdvReac Type Severity Reaction Status Date / Time losartan Allergy Intermediate Swelling Verified 06/16/24 19:17 Aminoglycosides Allergy Unknown Unknown Verified 06/16/24 19:17 REINIER Inhibitors Allergy Unknown Verified 06/16/24 19:17 enalapril Allergy Swelling Verified 06/16/24 19:17 enalaprilat [From Vasotec] Allergy Swelling Verified 06/16/24 19:17 ibuprofen Allergy Unknown Verified 06/16/24 19:17 lisinopril Allergy Swelling Verified 06/16/24 19:17 vancomycin Allergy Unknown Verified 06/16/24 19:17 vitamin A Allergy Unknown Verified 06/16/24 19:17 gabapentin AdvReac Hallucinati Verified 06/16/24 19:17 ons/Nightma res Physical Exam Vitals: Vital Signs Temp Pulse Pulse Resp BP BP Pulse Ox 06/18/24 08:00 97.6 F 66 19 111/69 100 06/18/24 03:11 97.9 F 69 18 100/60 98 06/17/24 22:55 98.3 F 77 24 122/71 94 L 06/17/24 22:53 97.4 F L 64 16 130/94 06/17/24 21:16 97.4 F L 78 17 128/73 06/17/24 14:43 68 16 111/69 96 06/17/24 10:09 65 20 103/55 94 L Intake and Output 06/17/24 06/18/24 06/18/24 22:59 06:59 14:59 Intake Total 500 Output Total 2500 Balance -2000 Intake: Hemodialysis 500 Output: Hemodialysis 1500 Hemodialysis Net Amount 1000 Other: Weight 68.039 kg 68 kg Results 06/18/24 06:11 06/18/24 06:11 CBC 06/18/24 Range/Units 06:11 WBC 5.0 (3.8-10.6) k/uL RBC 2.39 L (4.30-5.90) m/uL Hgb 8.3 L (13.0-17.5) gm/dL Hct 26.4 L (39.0-53.0) % Plt Count 75 L (150-450) k/uL Comprehensive Metabolic Panel 06/18/24 Range/Units 06:11 Sodium 137 (137-145) mmol/L Potassium 3.9 (3.5-5.1) mmol/L Chloride 97 L (98-107) mmol/L Carbon Dioxide 31 H (22-30) mmol/L BUN 23 H (9-20) mg/dL Creatinine 3.46 H (0.66-1.25) mg/dL Glucose 87 (74-99) mg/dL Calcium 7.1 L (8.4-10.2) mg/dL Current Medications Generic Name Dose Route Start Last Admin Trade Name Freq PRN Reason Stop Dose Admin Acetaminophen 650 mg 06/16/24 16:13 06/17/24 20:09 Acetaminophen Tab 325 Mg Tab PO 650 mg Q6HR PRN Administration Mild Pain or Fever > 100.5 Hydrocodone Bitart/Acetaminophen 1 each 06/16/24 16:13 06/17/24 23:01 Hydrocodone/Apap 5-325mg 1 Each Tab PO 1 each Q6HR PRN Administration Moderate Pain (Scale 4 to 6) Al Hydroxide/Mg Hydroxide 15 ml 06/16/24 16:13 Mag Hydrox/Al Hydrox/Simeth 30 Ml Cup PO Q6HR PRN Indigestion Allopurinol 100 mg 06/18/24 09:00 06/18/24 08:10 Allopurinol 100 Mg Tab PO 100 mg DAILY [facility] Administration Aspirin 81 mg 06/17/24 09:00 06/18/24 08:10 Aspirin 81 Mg PO 81 mg DAILY MONY Administration Atorvastatin Calcium 80 mg 06/16/24 21:00 06/17/24 22:27 Atorvastatin 40 Mg Tab PO 80 mg HS [facility] Administration Bumetanide 4 mg 06/17/24 09:00 06/18/24 08:10 Bumetanide 1 Mg Tab PO 4 mg DAILY [facility] Administration Calcitriol 0.25 mcg 06/24/24 09:00 Calcitriol 0.25 Mcg Cap PO WEEKLY [facility] Calcium Acetate 1,334 mg 06/17/24 17:30 06/18/24 06:41 Calcium Acetate 667 Mg Tab PO 1,334 mg TID-W/MEALS MONY Administration Calcium Carbonate/Glycine 1,000 mg 06/16/24 16:13 Calcium Carbonate 500 Mg Chewable PO Q4HR PRN Dyspepsia Darbepoetin Papa 60 mcg 06/17/24 15:00 06/17/24 22:27 Darbepoetin Papa 60 Mcg/0.3 Ml Syringe SQ 60 mcg Q7D MONY Administration Famotidine 20 mg 06/18/24 09:00 06/18/24 08:10 Famotidine 20 Mg Tab PO 20 mg DAILY MONY Administration Heparin Sodium (Porcine) 5,000 unit 06/17/24 16:00 06/18/24 08:17 Heparin Sodium,Porcine 5,000 Unit/Ml 1 Ml Vial SQ Not Given Q8HR [facility] Hydromorphone HCl 0.5 mg 06/17/24 09:59 Hydromorphone 0.5 Mg/0.5 Ml Syringe IVP Q4HR PRN Breakthrough Pain Metoprolol Succinate 12.5 mg 06/17/24 09:00 06/18/24 08:09 Metoprolol Succinate (Er) 25 Mg Tab.Er.24h PO 12.5 mg DAILY MONY Administration Naloxone HCl 0.2 mg 06/16/24 16:13 Naloxone 0.4 Mg/Ml 1 Ml Vial IV Q2M PRN Opioid Reversal Paroxetine HCl 10 mg 06/18/24 09:00 06/18/24 08:09 Paroxetine 10 Mg Tab PO 10 mg DAILY MONY Administration Ropinirole HCl 2 mg 06/17/24 21:00 06/18/24 08:10 Ropinirole Hcl 1 Mg Tab PO 2 mg BID MONY Administration Intake and Output 06/17/24 06/18/24 06/18/24 22:59 06:59 14:59 Intake Total 500 Output Total 2500 Balance -2000 Intake: Hemodialysis 500 Output: Hemodialysis 1500 Hemodialysis Net Amount 1000 Other: Weight 68.039 kg 68 kg 06/18/24 06:11 06/18/24 06:11
[2024-06-18] MEDS: MIDODRINE 5 MG TAB PO STA (15:22)
--- NOTE | 2024-06-18 16:17 | P.PN ---
Subjective Progress Note Date: 06/18/24 No new complaints. Nursing reports that pt having hallucinations today. He is re-directable and not agitated. Gen: In NAD, non-toxic HEENT: normocephalic, atraumatic, hearing acuity is intant, mucous membranes moist CVS: perfusing all extremities well, no pitting edema, Respiratory: symmetric chest expansion, no accessory muscle use, GI: soft, NTTP, ND, : no suprapubic tenderness, no CVA tenderness MSK/Derm: no rashes, cyanosis Neuro: CN II-XII intact, no motor weakness, Hospital course: Hospital Course: 78-year-old male with history of ESRD status post kidney transplant on hemodialysis TTS, dyslipidemia, severe aortic stenosis, HFrEF EF 30 to 35%%, severe pulmonary hypertension, chronic lower extremity wounds bilateral, anemia of chronic disease, dyslipidemia presenting after mechanical fall. In the ED, temperature was 97.5, pulse 72, respiratory rate 20, blood pressure 115/72, saturating at 94% on room air. Head and cervical spine CT showed displaced fracture of left scapula, chest CT shows the same along with bilateral pleural effusion larger on the right, small on the left, mild to moderate acute compression fracture of T10 without retropulsion. Abdominal bloating CT did not show any acute process. Hemoglobin 9.7 from baseline, sodium 141, potassium 3.3, creatinine 4.51, total bili 1.6, AST 66, ALT 35, ALP 191. Troponin is also elevated. No chest pain. Patient being admitted for acute fractures as well as difficulty ambulating. Nephrology, orthopedic surgery and physical therapy consulted. Cardiology also consulted. Orthopedic surgery recommending the patient be transferred to [facility] for further evaluation from shoulder specialist regarding his scapular fracture. Cardiology recommended that if patient does require surgery, he will require balloon valvuloplasty of the aortic valve prior to procedure, and agree with transfer to [facility]. [facility] was contacted and accepting physician was Dr. Borrego. Pending bed availability. Assessment and Plan: Mechanical fall Acute left displaced scapular fracture Acute compression fracture of T10 -Pain control with oral Tylenol as needed, oral [place] as needed, IV Dilaudid as needed, monitor for sedation -Orthopedic surgery note reviewed, conservative management, hide LSO brace for compression fracture, immobilization for scapular fracture -PT/OT consulted ESRD on hemodialysis Hypocalcemia Anemia of chronic disease -Continue Bumex 4 mg daily -Nephrology note reviewed, iron studies pending, start darbepoetin, added calcitriol weekly -Continue PhosLo 3 times daily - patient was given 2 g of calcium gluconate this morning Elevated troponin -Likely in the setting of ESRD -No active chest pain -Monitor on telemetry -Cardiology consulted, pending recommendations -Continue aspirin 81 mg, atorvastatin 80 mg Bilateral pleural effusions -Secondary to ESRD and HFrEF -Not requiring any oxygen Right lower extremity chronic venous stasis dermatitis -Wound care consulted Chronic: Severe aortic stenosis HFrEF 30 to 35%, not in exacerbation Dyslipidemia Severe pulmonary hypertension Gout DVT ppx: Subcu heparin Code status: Full code Anticipated discharge place: Pending clinical course Anticipated discharge time: Pending clinical course Objective - Vital Signs Vital signs: Vital Signs Temp 97.6 F 06/18/24 15:15 Pulse 62 06/18/24 15:15 Resp 17 06/18/24 15:15 BP 94/56 06/18/24 15:53 Pulse Ox 96 06/18/24 15:15 FiO2 Intake & Output 06/17/24 06/18/24 06/18/24 18:59 06:59 18:59 Intake Total 500 900 Output Total 2500 Balance -2000 900 Weight 68 kg Intake: Oral 900 Hemodialysis 500 Output: Hemodialysis 1500 Hemodialysis Net Amount 1000 - Labs CBC & Chem 7: 06/18/24 06:11 06/18/24 06:11 Labs: Abnormal Lab Results - Last 24 Hours (Table) 06/17/24 06/18/24 06/18/24 Range/Units 17:26 06:11 06:11 RBC 2.39 L (4.30-5.90) m/uL Hgb 8.3 L (13.0-17.5) gm/dL Hct 26.4 L (39.0-53.0) % MCV 110.3 H (80.0-100.0) fL RDW 18.2 H (11.5-15.5) % Plt Count 75 L (150-450) k/uL Lymphocytes # 0.5 L (1.0-4.8) k/uL Macrocytosis Marked A Chloride 97 L (98-107) mmol/L Carbon Dioxide 31 H (22-30) mmol/L BUN 23 H (9-20) mg/dL Creatinine 3.46 H (0.66-1.25) mg/dL POC Glucose (mg/dL) 112 H (70-110) mg/dL Calcium 7.1 L (8.4-10.2) mg/dL
[2024-06-18] MEDS: HYDROmorphone 0.5 MG/0.5 ML SYRINGE IVP PRN (17:13)
[2024-06-19 08:41] LABS: Anisocytosis Slight; Basophils % (A) 0 %; Eosinophils # (A) 0.1 k/uL (0-0.7); Eosinophils % (A) 2 %; HCT 25.6 % (39.0-53.0); HGB 7.9 gm/dL (13.0-17.5); Hypochromasia Marked; Lymphocytes # (A) 0.5 k/uL (1.0-4.8); Lymphocytes % (A) 9 %; MCH 33.8 pg (25.0-35.0); MCHC 30.9 g/dL (31.0-37.0); MCV 109.5 fL (80.0-100.0); Macrocytosis Marked; Mean Platelet Volume 11.7; Monocytes # (A) 0.3 k/uL (0-1.0); Monocytes % (A) 6 %; Neutrophils # (A) 4.1 k/uL (1.3-7.7); Neutrophils % (A) 81 %; RBC 2.34 m/uL (4.30-5.90); RDW 17.7 % (11.5-15.5); WBC 5.1 k/uL (3.8-10.6)
[2024-06-19 08:46] LABS: Platelet Count 63 k/uL (150-450)
[2024-06-19 08:48] LABS: African American GFR (CKD) 13 (>60 ml/min/1.73 sqM); Anion Gap 13 mmol/L; Blood Urea Nitrogen 34 mg/dL (9-20); Calcium 6.8 mg/dL (8.4-10.2); Carbon Dioxide 26 mmol/L (22-30); Chloride 97 mmol/L (98-107); Glucose 82 mg/dL (74-99); Magnesium 1.6 mg/dL (1.6-2.3); Non-African American GFR(CKD) 11 (>60 ml/min/1.73 sqM); Potassium 4.2 mmol/L (3.5-5.1); Sodium 136 mmol/L (137-145)
--- NOTE | 2024-06-19 11:33 | XR ---
EXAMINATION TYPE: XR chest 1V portable DATE OF EXAM: 06/19/2024 11:25 AM COMPARISON: 04/27/2024 CLINICAL INDICATION: Male, 78 years old with history of pleural effusion and sternal fracture, TECHNIQUE: XR chest 1V portable view(s) obtained. FINDINGS: The heart size is enlarged. The pulmonary vasculature is prominent. Infiltrate or developing consolidation is at the right lung base correlate for atelectasis or pneumon ia. Atypical pulmonary edema could be considered. Small left pleural effusion is present. There is s ilhouetting the left diaphragm. Degenerative changes are at the acromioclavicular junction. There is elevation of the humeral head in relation to the acromion on the right and likely the left compatible with chronic rotator cuff tears . Sternum cannot be evaluated on the AP portable chest. IMPRESSION: 1. Developing right lower lobe infiltrate. Correlate for atelectasis or pneumonia. Consider atypical pulmonary edema. 2. Small left pleural effusion. 3. Cardiomegaly [facility], , 06/19/2024 11:30 AM
--- NOTE | 2024-06-19 11:34 | P.PN ---
Subjective Patient is seen for follow-up for end-stage renal disease. Maintained on TTS schedule. Admitted to the hospital status post fall left shoulder fracture. He had significant bleeding from the AV fistula site after dialysis on 06/17/2024 Hemoglobin is 7.9 g/dL today. Platelet counts are low at 63,000. Scheduled for hemodialysis today. Objective - Vital Signs Vital signs: Vital Signs Temp 98.5 F 06/19/24 08:14 Pulse 72 06/19/24 08:14 Resp 16 06/19/24 08:14 BP 114/69 06/19/24 08:14 Pulse Ox 97 06/19/24 08:14 FiO2 Intake & Output 06/18/24 06/19/24 06/19/24 18:59 06:59 18:59 Intake Total 900 10 Output Total 200 Balance 900 -200 10 Weight 68.4 kg Intake: IV 10 Invasive Line 1 10 Oral 900 Output: Urine 200 Other: # Bowel Movements 1 - Exam Patient is awake, comfortable, no acute distress. Examination of the heart S1 and S2 Examination of the lungs bilateral breath sounds are heard Abdomen is soft nontender Examination of lower extremities shows right leg is wrapped. No significant edema noted. 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 End-stage renal disease on hemodialysis on Friday schedule 2. Status post fall and fracture of the left scapula and scaphoid bone 3. CKD mineral bone disorder 4. Anemia of chronic disease 5. Hypokalemia status post replacement 6. Hypocalcemia with end-stage renal disease. PTH was 231 last month which is on the lower side for ESRD. Patient started on low-dose calcitriol. Continue with Tums for now 7. Thrombocytopenia Plan: Hemodialysis in a.m. Continue Aranesp and calcitriol
--- NOTE | 2024-06-19 11:38 | CT ---
EXAMINATION TYPE: CT brain wo con DATE OF EXAM: 06/19/2024 11:29 AM COMPARISON: 06/16/2024 CLINICAL INDICATION: Male, 78 years old with history of confusion, confusion TECHNIQUE: CT of the brain is performed utilizing 3 mm thick sections through the posterior fossa and 3 mm thick sections through the remaining calvarium. Study is performed within 24 hours of arrival to the hospital. Contrast used: mL of , (none if empty) CT DLP: 1186.4 mGycm, Automated exposure control for dose reduction was used. FINDINGS: No abnormal hyperdensity is present to suggest an acute intracranial hemorrhage. No mass lesion is evident. No acute infarcts are evident. Periventricular white matter hypodensity is present, likely on the bas is of chronic white matter ischemic change. Pattern appears stable from comparison. Ventricles and sulci are prominent for the patient age. Paranasal sinuses and mastoid air cells within the gheea-bq-wbal are clear. Surgical skin zulay. Be along the left parietal occipital subcutaneous tissues. The swelling has diminished over the interva l. IMPRESSION: 1. No acute intracranial process. Follow up MRI can be performed as clinically indicated. 2. Chronic appearing periventricular white matter ischemic changes with age related atrophy. [facility], , 06/19/2024 11:35 AM
--- NOTE | 2024-06-19 13:06 | P.PN ---
Subjective Progress Note Date: 06/19/24 (delayed charting seen at 1030) Patient is 78-year-old history of ESRD on HD TTS, HLD, severe aortic stenosis, HFrEF with EF 30 to 35%, severe pulmonary hypertension, and multiple other comorbid conditions who initially presented after a mechanical fall. Ultimately found to have a displaced left scapular fracture with extension into the glenohumeral joint with shoulder dislocation and neural pleural effusions. Additionally CT abdomen and pelvis showed a T9 compression fracture without retropulsion. Seen by Ortho who recommended transfer to [facility]. Dr. Jimi Gonsalez is the accepting physician currently pending bed availability. Seen by cardiology for elevated troponins flat. Cardiology did recommend TAVR prior to any surgical intervention. Patient seen and examined at bedside. Notes left extremity is cold. Does report sternal pain with movement and palpation. He denies any pain in the left lower extremity but does report that the left lower extremity feels numb which is unusual for him. He denies any shortness of breath or cough. Intermittently staring and slightly confused. Vital signs reviewed General: Nontoxic, no distress, appears at stated age, ecchymosis left chest and shoulder Cardiovascular: S1S2 reg, no murmur sternal area tender to palpation Lungs: CTA bilateral, no rhonchi, no rales, no accessory muscle use Abdominal: Soft, nontender to palpation, no guarding Ext: No gross muscle atrophy, no edema b/l lower extremities, no contractures, left lower extremity colder than right lower extremity, dopplerable pulses Neuro: CN II-XI grossly intact, no focal neuro deficits Psych: Alert, oriented, appropriate affect Assessment/Plan: Pending transfer to [facility] Mechanical fall Acute left displaced scapular fracture Acute compression fracture of T9 Pending transfer to [facility] Acute encephalopathy after head trauma has [address] posterior scalp -Repeat head CT ordered and reviewed without changes. Suspect component of traumatic brain injury -Pain control with oral Tylenol as needed, oral [place] as needed, IV Dilaudid as needed, monitor for sedation -Orthopedic surgery note reviewed, conservative management, hide LSO brace for compression fracture, immobilization for scapular fracture Severe symptomatic aortic stenosis with progression over the last 2 to 3 months making him high risk for orthopedic surgery. If he is to undergo surgery would recommend balloon valvuloplasty prior to surgery. 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 Undetermined etiology -Chest x-ray without mention of sternal fracture Elevated troponin -Likely in the setting of ESRD -No active chest pain -Monitor on telemetry -Cardiology consulted, pending recommendations -Continue aspirin 81 mg, atorvastatin 80 mg Bilateral pleural effusions -Secondary to ESRD and HFrEF -Not requiring any oxygen Right lower extremity chronic venous stasis dermatitis -Wound care consulted Chronic: Severe aortic stenosis HFrEF 30 to 35%, not in exacerbation Dyslipidemia Severe pulmonary hypertension Gout Imaging: Labs reviewed and CBC remarkable for hemoglobin 7.9 and platelets of 63. BMP remarkable for sodium of 136, BUN 34, creatinine 4.68, and calcium of 6.8. Data Review: CT head and chest x-ray ordered and reviewed. CT head showed no acute process. X-ray revealed developing right lower lobe infiltrate possible atelectasis versus pneumonia or pulmonary edema with small left pleural effusion. DVT prophylaxis: Heparin 5000 units SQ Q8 Currently awaiting transfer to [place] This dictation was prepared using [employer] voice recognition software. Though every attempt is made to correct errors during dictation some may still exist. Objective - Vital Signs Vital signs: Vital Signs Temp 97.7 F 06/19/24 12:14 Pulse 60 06/19/24 12:14 Resp 16 06/19/24 12:14 BP 90/56 06/19/24 12:14 Pulse Ox 99 06/19/24 12:14 FiO2 Intake & Output 06/18/24 06/19/24 06/19/24 18:59 06:59 18:59 Intake Total 900 10 Output Total 200 0 Balance 900 -200 10 Weight 68.4 kg Intake: IV 10 Invasive Line 1 10 Oral 900 Output: Urine 200 0 Other: # Bowel Movements 1 - Labs CBC & Chem 7: 06/19/24 06:43 06/19/24 06:43 Labs: Abnormal Lab Results - Last 24 Hours (Table) 06/19/24 06/19/24 Range/Units 06:43 06:43 RBC 2.34 L (4.30-5.90) m/uL Hgb 7.9 L (13.0-17.5) gm/dL Hct 25.6 L (39.0-53.0) % MCV 109.5 H (80.0-100.0) fL MCHC 30.9 L (31.0-37.0) g/dL RDW 17.7 H (11.5-15.5) % Plt Count 63 L (150-450) k/uL Lymphocytes # 0.5 L (1.0-4.8) k/uL Macrocytosis Marked A Sodium 136 L (137-145) mmol/L Chloride 97 L (98-107) mmol/L BUN 34 H (9-20) mg/dL Creatinine 4.68 H (0.66-1.25) mg/dL Calcium 6.8 L (8.4-10.2) mg/dL
--- NOTE | 2024-06-19 16:01 | P.PN ---
Subjective Progress Note Date: 06/19/24 History of present illness: Patient is a pleasant 78-year-old male with significant past medical history of end-stage renal disease status post kidney transplant on hemodialysis, hyperlipidemia, severe aortic stenosis, cardiomyopathy with EF 30-35%, severe pulmonary hypertension, chronic lower extremity wounds bilaterally, anemia of chronic disease who presented to the emergency department status post mechanical fall. He does follow with Dr. Silva in the office. He states he was using a walker at home and had a trip and fall hitting his head and landing on his shoulder. He was found to have displaced fracture of the left scapula and acute compression fraction of T10. He was evaluated by orthopedics with no plans for surgery at this time however recommend transfer to [facility] for [facility] of care if surgery were to be needed. He did have ATA 04/30/2024 which showed severe aortic stenosis with a EF 35%. Left heart cath 04/30/2024 with calcified coronaries without significant obstructive disease. He does admit that he has been feeling more tired, weak, short of breath over the past few months that has been getting progressively worse. He does have to stop and catch his breath when he was walking across the room. He is on 2 L nasal cannula home O2 at home. Labs reviewed: Troponin 0.455, 0.459, BNP 111,000, creatinine 5.27, potassium 3.6, hemoglobin 8.7. He is currently sitting upright in bedside chair and reports that his pain is well-controlled. No chest pain or pressure. 06/19/2024 Patient has had more confusion today and appears drowsy on exam. He did have head CT with no acute findings. He is awaiting transfer to [facility]. PHYSICAL EXAMINATION: This is a 78-year-old male in no apparent distress at the time of my examination. HEENT: Head is atraumatic, normocephalic. Pupils are equal, round. Sclerae anicteric. Conjunctivae are clear. Mucous membranes of the mouth are moist. Neck is supple. There is no jugular venous distention. No carotid bruit is heard. CHEST EXAMINATION: Lungs are clear to auscultation. No chest wall tenderness is noted on palpation or with deep breathing. On 2 L nasal cannula. HEART EXAMINATION: Heart regular rate and rhythm. S1, S2 heard. + murmur, no gallops or rub. ABDOMEN: Soft, nontender. Bowel sounds are heard. EXTREMITIES: 2+ peripheral pulses with no evidence of peripheral edema and no calf tenderness noted. Bandage on right olivares. NEUROLOGIC EXAMINATION: Patient is awake, alert and oriented x3. IMPRESSION AND PLAN: Severe symptomatic aortic stenosis End-stage renal disease status post kidney transplant on hemodialysis Hyperlipidemia Cardiomyopathy with EF 30-35% Pulmonary hypertension Chronic lower extremity wounds Anemia PLAN: Patient does have severe symptomatic aortic stenosis with progression of symptoms over the past 2-3 months making him high risk for any orthopedic surgery. If he is to undergo surgery would recommend balloon valvuloplasty of aortic valve prior to surgery. Awaiting transfer to [facility]. I am dictating on behalf of Dr. Galo Chow's history/physical and assessment/plan. Objective - Vital Signs Vital signs: Vital Signs Temp 97.7 F 06/19/24 04:10 Pulse 71 06/19/24 04:10 Resp 19 06/19/24 04:10 BP 113/66 06/19/24 04:10 Pulse Ox 100 06/19/24 04:10 FiO2 Intake & Output 06/18/24 06/19/24 06/19/24 18:59 06:59 18:59 Intake Total 900 Output Total 200 Balance 900 -200 Weight 68.4 kg Intake: Oral 900 Output: Urine 200 Other: # Bowel Movements 1 - Labs CBC & Chem 7: 06/19/24 06:43 06/19/24 06:43
[2024-06-19] MEDS: CALCIUM GLUCONATE IN NACL 2 GM in SALINE 1 100ML.BAG IVPB ONE (16:51)
[2024-06-19] MEDS: MIDODRINE 5 MG TAB PO PRN (16:53)
[2024-06-20 07:33] LABS: Anisocytosis Slight; HCT 27.6 % (39.0-53.0); HGB 8.5 gm/dL (13.0-17.5); Hypochromasia Marked; MCH 33.8 pg (25.0-35.0); MCHC 30.8 g/dL (31.0-37.0); MCV 109.7 fL (80.0-100.0); Macrocytosis Marked; Mean Platelet Volume 11.2; RBC 2.52 m/uL (4.30-5.90); RDW 17.5 % (11.5-15.5); WBC 5.6 k/uL (3.8-10.6)
[2024-06-20 07:34] LABS: Platelet Count 62 k/uL (150-450)
[2024-06-20 07:38] LABS: African American GFR (CKD) 20 (>60 ml/min/1.73 sqM); Anion Gap 12 mmol/L; Blood Urea Nitrogen 21 mg/dL (9-20); Calcium 7.2 mg/dL (8.4-10.2); Carbon Dioxide 29 mmol/L (22-30); Chloride 95 mmol/L (98-107); Glucose 89 mg/dL (74-99); Non-African American GFR(CKD) 17 (>60 ml/min/1.73 sqM); Sodium 136 mmol/L (137-145)
[2024-06-20 09:15] VITALS: RESP 20; TEMP 97.7
[2024-06-20 10:55] VITALS: BP 100/47
[2024-06-20 11:01] VITALS: PULSE 57
--- NOTE | 2024-06-20 12:15 | P.PN ---
Subjective Progress Note Date: 06/20/24 History of present illness: Patient is a pleasant 78-year-old male with significant past medical history of end-stage renal disease status post kidney transplant on hemodialysis, hyperlipidemia, severe aortic stenosis, cardiomyopathy with EF 30-35%, severe pulmonary hypertension, chronic lower extremity wounds bilaterally, anemia of chronic disease who presented to the emergency department status post mechanical fall. He does follow with Dr. Silva in the office. He states he was using a walker at home and had a trip and fall hitting his head and landing on his shoulder. He was found to have displaced fracture of the left scapula and acute compression fraction of T10. He was evaluated by orthopedics with no plans for surgery at this time however recommend transfer to [facility] for higher evel of care if surgery were to be needed. He did have ATA 04/30/2024 which showed severe aortic stenosis with a EF 35%. Left heart cath 04/30/2024 with calcified coronaries without significant obstructive disease. He does admit that he has been feeling more tired, weak, short of breath over the past few months that has been getting progressively worse. He does have to stop and catch his breath when he was walking across the room. He is on 2 L nasal cannula home O2 at home. Labs reviewed: Troponin 0.455, 0.459, BNP 111,000, creatinine 5.27, potassium 3.6, hemoglobin 8.7. He is currently sitting upright in bedside chair and reports that his pain is well-controlled. No chest pain or pressure. 06/19/2024 Patient has had more confusion today and appears drowsy on exam. He did have head CT with no acute findings. He is awaiting transfer to [facility]. 06/20/2024 Patient is more awake and alert today, out of bed to chair. Pain is worse with movement. Hemoglobin 8.5, platelets 62, sodium 136, creatinine 3.18. He is to be transferred today to [facility]. PHYSICAL EXAMINATION: This is a 78-year-old male in no apparent distress at the time of my examination. HEENT: Head is atraumatic, normocephalic. Pupils are equal, round. Sclerae anicteric. Conjunctivae are clear. Mucous membranes of the mouth are moist. Neck is supple. There is no jugular venous distention. No carotid bruit is heard. CHEST EXAMINATION: Lungs are clear to auscultation. No chest wall tenderness is noted on palpation or with deep breathing. On 2 L nasal cannula. HEART EXAMINATION: Heart regular rate and rhythm. S1, S2 heard. + murmur, no gallops or rub. ABDOMEN: Soft, nontender. Bowel sounds are heard. EXTREMITIES: 2+ peripheral pulses with no evidence of peripheral edema and no calf tenderness noted. Bandage on right olivares. NEUROLOGIC EXAMINATION: Patient is awake, alert and oriented x3. IMPRESSION AND PLAN: Severe symptomatic aortic stenosis End-stage renal disease status post kidney transplant on hemodialysis Hyperlipidemia Cardiomyopathy with EF 30-35% Pulmonary hypertension Chronic lower extremity wounds Anemia PLAN: Patient does have severe symptomatic aortic stenosis with progression of symptoms over the past 2-3 months making him high risk for any orthopedic surgery. If he is to undergo surgery would recommend balloon valvuloplasty of aortic valve prior to surgery. To be transferred today to [facility]. Follow-up outpatient 1 week after discharge. I am dictating on behalf of Dr. Galo Chow's history/physical and assessment/plan. Objective - Vital Signs Vital signs: Vital Signs Temp 98.1 F 06/20/24 04:00 Pulse 57 L 06/20/24 04:00 Resp 18 06/20/24 04:00 BP 99/58 06/20/24 04:00 Pulse Ox 100 06/20/24 04:00 FiO2 Intake & Output 06/19/24 06/20/24 06/20/24 18:59 06:59 18:59 Intake Total 210 500 Output Total 0 5500 Balance 210 -5000 Weight 62 kg Intake: IV 10 Invasive Line 1 10 Oral 200 Hemodialysis 500 Output: Urine 0 Hemodialysis 3000 Hemodialysis Net Amount 2500 - Labs CBC & Chem 7: 06/20/24 07:03 06/20/24 07:03 Labs: Abnormal Lab Results - Last 24 Hours (Table) 06/19/24 06/19/24 06/20/24 Range/Units 06:43 06:43 07:03 RBC 2.34 L 2.52 L (4.30-5.90) m/uL Hgb 7.9 L 8.5 L (13.0-17.5) gm/dL Hct 25.6 L 27.6 L (39.0-53.0) % MCV 109.5 H 109.7 H (80.0-100.0) fL MCHC 30.9 L 30.8 L (31.0-37.0) g/dL RDW 17.7 H 17.5 H (11.5-15.5) % Plt Count 63 L 62 L (150-450) k/uL Lymphocytes # 0.5 L (1.0-4.8) k/uL Macrocytosis Marked A Marked A Sodium 136 L (137-145) mmol/L Chloride 97 L (98-107) mmol/L BUN 34 H (9-20) mg/dL Creatinine 4.68 H (0.66-1.25) mg/dL Calcium 6.8 L (8.4-10.2) mg/dL 06/20/24 Range/Units 07:03 RBC (4.30-5.90) m/uL Hgb (13.0-17.5) gm/dL Hct (39.0-53.0) % MCV (80.0-100.0) fL MCHC (31.0-37.0) g/dL RDW (11.5-15.5) % Plt Count (150-450) k/uL Lymphocytes # (1.0-4.8) k/uL Macrocytosis Sodium 136 L (137-145) mmol/L Chloride 95 L (98-107) mmol/L BUN 21 H (9-20) mg/dL Creatinine 3.18 H (0.66-1.25) mg/dL Calcium 7.2 L (8.4-10.2) mg/dL
--- NOTE | 2024-06-20 12:17 | P.DS ---
Providers Date of admission: 06/16/24 16:28 Expected date of discharge: 06/20/24 Attending physician: Miguel Ferrara Consults: 06/16/24 16:13 Consult Physician Routine Consulting Provider: Maxime Garza Consult Reason/Comments: Scapular, T10 fracture Do you want consulting provider notified?: Yes, Notify in am 06/16/24 16:26 Consult Physician Routine Consulting Provider: Gloria Rios Consult Reason/Comments: hemodialysis Do you want consulting provider notified?: Yes 06/17/24 07:42 Consult Physician Routine Consulting Provider: Sang Leblanc Consult Reason/Comments: elevated trop, Hfref, may need surgical intervention Do you want consulting provider notified?: Yes 06/19/24 10:50 Consult Physician Routine Consulting Provider: Tj Lundberg Consult Reason/Comments: Cool left lower extremity Do you want consulting provider notified?: Yes Primary care physician: Fransisco Pereira Hospital Course: Mechanical fall Acute left displaced scapular fracture Acute compression fracture of T9 Pending transfer to [facility] Left lower extremity numbness ESRD on hemodialysis Hypocalcemia Anemia of chronic disease Sternal pain. Elevated troponin Bilateral pleural effusions Right lower extremity chronic venous stasis dermatitis Severe aortic stenosis HFrEF 30 to 35%, not in exacerbation Dyslipidemia Severe pulmonary hypertension Gout Hospital Course: Patient is 78-year-old history of ESRD on HD TTS, HLD, severe aortic stenosis, HFrEF with EF 30 to 35%, severe pulmonary hypertension, and multiple other c omorbid conditions who initially presented after a mechanical fall. Ultimately found to have a displaced left scapular fracture with extension into the glenohumeral joint with shoulder dislocation and neural pleural effusions. Additionally CT abdomen and pelvis showed a T9 compression fracture without retropulsion. Seen by Ortho who recommended transfer to [facility]. Dr. Borrego is the accepting physician. Seen by cardiology for elevated troponins flat. Cardiology did recommend balloon valvular angioplasty prior to any surgical intervention. Pt's LLE noted to be colder than right with hx of stenosis of left internal iliac artery and case was discussed with vascular surgery who will evaluate patient in [facility] upon transfer. Pt transferred today to [facility] for further intervention as warranted. Discussed in detail with family at bedside today who is in agreement. Vital signs reviewed General: Nontoxic, no distress, appears at stated age, ecchymosis left chest and shoulder Cardiovascular: S1S2 reg, no murmur sternal area tender to palpation Lungs: CTA bilateral, no rhonchi, no rales, no accessory muscle use Abdominal: Soft, nontender to palpation, no guarding Ext: No gross muscle atrophy, no edema b/l lower extremities, no contractures, left lower extremity colder than right lower extremity, dopplerable pulses Neuro: CN II-XI grossly intact, no focal neuro deficits Psych: Alert, oriented, appropriate affect Patient Condition at Discharge: Stable Plan - Discharge Summary Discharge Rx Participant: No New Discharge Prescriptions: No Action Bumetanide [BUMEX] 4 mg PO DAILY oxyCODONE-APAP 5-325MG [Percocet 5-325 mg] 1 tab PO TID PRN PRN Reason: Pain PARoxetine [Paxil] 10 mg PO DAILY Cholecalciferol (Vitamin D3) [Vitamin D3 (50 Mcg = 2000 Iu)] 50 mcg PO DAILY Aspirin 81 mg PO DAILY #60 tab Atorvastatin [Lipitor] 80 mg PO HS #60 tab Metoprolol Succinate (ER) [Toprol XL] 12.5 mg PO DAILY #30 tab [place]-3/Dha/Epa/Fish Oil [Fish Oil 1,000 mg Softgel] 1 cap PO DAILY rOPINIRole HCL [Requip] 2 mg PO BID Calcium Acetate [PhosLo] 1,334 mg PO TID-W/MEALS allopurinoL [Zyloprim] 100 mg PO DAILY Midodrine [ProAmatine] 5 mg PO AC-BID PRN PRN Reason: Hypotension Lidocaine 5% Oint [Xylocaine 5% Oint] 1 applic TOPICAL DIRECTED PRN PRN Reason: PRIOR TO DIALYSIS Carboxymethylcellulose Sodium [Refresh Tears] 1 drop BOTH EYES TID Discharge Medication List [place]-3/Dha/Epa/Fish Oil [Fish Oil 1,000 mg Softgel] 1 cap PO DAILY 01/29/22 [History] rOPINIRole HCL [Requip] 2 mg PO BID 05/01/22 [History] Bumetanide [BUMEX] 4 mg PO DAILY 08/16/22 [History] Calcium Acetate [PhosLo] 1,334 mg PO TID-W/MEALS 08/16/22 [History] allopurinoL [Zyloprim] 100 mg PO DAILY 02/12/23 [History] oxyCODONE-APAP 5-325MG [Percocet 5-325 mg] 1 tab PO TID PRN 02/12/23 [History] Midodrine [ProAmatine] 5 mg PO AC-BID PRN 09/25/23 [History] Carboxymethylcellulose Sodium [Refresh Tears] 1 drop BOTH EYES TID 03/19/24 [History] Cholecalciferol (Vitamin D3) [Vitamin D3 (50 Mcg = 2000 Iu)] 50 mcg PO DAILY 03/19/24 [History] Lidocaine 5% Oint [Xylocaine 5% Oint] 1 applic TOPICAL DIRECTED PRN 03/19/24 [History] PARoxetine [Paxil] 10 mg PO DAILY 03/19/24 [History] Aspirin 81 mg PO DAILY #60 tab 03/22/24 [Rx] Atorvastatin [Lipitor] 80 mg PO HS #60 tab 03/22/24 [Rx] Metoprolol Succinate (ER) [Toprol XL] 12.5 mg PO DAILY #30 tab 05/03/24 [Rx] Follow up Appointment(s)/Referral(s): Fransisco Pereira MD [Primary Care Provider] - 1-2 days Discharge Disposition: OTHER INSTITUTION NOT DEFINED
--- NOTE | 2024-06-20 12:27 | P.PN ---
Subjective Patient is seen for follow-up for end-stage renal disease. Maintained on TTS schedule. Admitted to the hospital status post fall left shoulder fracture. Status post hemodialysis yesterday with UF of 2.5 L. Patient is being transferred to tertiary care for possible surgery on left shoulder. Objective - Vital Signs Vital signs: Vital Signs Temp 97.7 F 06/20/24 09:14 Pulse 57 L 06/20/24 10:53 Resp 20 06/20/24 09:14 BP 100/47 06/20/24 10:53 Pulse Ox 98 06/20/24 10:53 FiO2 Intake & Output 06/19/24 06/20/24 06/20/24 18:59 06:59 18:59 Intake Total 210 500 260 Output Total 0 5500 Balance 210 -5000 260 Weight 62 kg Intake: IV 10 20 Invasive Line 1 10 20 Oral 200 240 Hemodialysis 500 Output: Urine 0 Hemodialysis 3000 Hemodialysis Net Amount 2500 - Exam Patient is awake, comfortable, no acute distress. Edema seems to have improved. He is not examined today as he and his family are currently communicating with another physician. - Labs CBC & Chem 7: 06/20/24 07:03 06/20/24 07:03 Labs: Abnormal Lab Results - Last 24 Hours (Table) 06/20/24 06/20/24 Range/Units 07:03 07:03 RBC 2.52 L (4.30-5.90) m/uL Hgb 8.5 L (13.0-17.5) gm/dL Hct 27.6 L (39.0-53.0) % MCV 109.7 H (80.0-100.0) fL MCHC 30.8 L (31.0-37.0) g/dL RDW 17.5 H (11.5-15.5) % Plt Count 62 L (150-450) k/uL Macrocytosis Marked A Sodium 136 L (137-145) mmol/L Chloride 95 L (98-107) mmol/L BUN 21 H (9-20) mg/dL Creatinine 3.18 H (0.66-1.25) mg/dL Calcium 7.2 L (8.4-10.2) mg/dL Assessment and Plan Assessment: 1. End-stage renal disease on hemodialysis on Friday schedule 2. Status post fall and fracture of the left scapula and scaphoid bone 3. CKD mineral bone disorder 4. Anemia of chronic disease 5. Hypokalemia status post replacement 6. Hypocalcemia with end-stage renal disease. PTH was 231 last month which is on the lower side for ESRD. Maintained on low-dose calcitriol. Continue with Tums for now 7. Thrombocytopenia Plan: Hemodialysis on TTS schedule Continue Aranesp and calcitriol
== END 2024-06-20 11:47 | disposition short-term general hospital (02) | DRG 564 ==
LOC: EC 12:42 → 3SCARD 16:28
PROVIDERS: ADMIT Student in an Organized Health Care Education/Training Program; ATTEND Student in an Organized Health Care Education/Training Program
PROC: 0HQ0XZZ Repair Scalp Skin, External Approach (ICD-10-PCS; principal; 2024-06-16)
PROC: 5A1D70Z Performance of Urinary Filtration, Intermittent, Less than 6 Hours Per Day (ICD-10-PCS; 2024-06-17)
DX: S42.192A Fracture of other part of scapula, left shoulder, initial encounter for closed fracture (principal); N18.6 End stage renal disease; S22.079A Unspecified fracture of T9-T10 vertebra, initial encounter for closed fracture; I42.9 Cardiomyopathy, unspecified; I50.22 Chronic systolic (congestive) heart failure; T82.838A Hemorrhage due to vascular prosthetic devices, implants and grafts, initial encounter; Z94.0 Kidney transplant status; W01.198A Fall on same level from slipping, tripping and stumbling with subsequent striking against other object, initial encounter; Y92.003 Bedroom of unspecified non-institutional (private) residence as the place of occurrence of the external cause; S01.01XA Laceration without foreign body of scalp, initial encounter; D63.1 Anemia in chronic kidney disease; D69.6 Thrombocytopenia, unspecified; E78.5 Hyperlipidemia, unspecified; I35.0 Nonrheumatic aortic (valve) stenosis; I27.20 Pulmonary hypertension, unspecified; G89.29 Other chronic pain; M54.50 Low back pain, unspecified; E83.51 Hypocalcemia; E87.6 Hypokalemia; S62.009A Unspecified fracture of navicular [scaphoid] bone of unspecified wrist, initial encounter for closed fracture; I70.8 Atherosclerosis of other arteries; Z99.2 Dependence on renal dialysis; I87.2 Venous insufficiency (chronic) (peripheral); R79.89 Other specified abnormal findings of blood chemistry; K52.9 Noninfective gastroenteritis and colitis, unspecified; M10.9 Gout, unspecified; Z20.822 Contact with and (suspected) exposure to COVID-19; E83.9 Disorder of mineral metabolism, unspecified; S43.006A Unspecified dislocation of unspecified shoulder joint, initial encounter; Y84.1 Kidney dialysis as the cause of abnormal reaction of the patient, or of later complication, without mention of misadventure at the time of the procedure; Z79.82 Long term (current) use of aspirin; Z79.899 Other long term (current) drug therapy; Z86.16 Personal history of COVID-19; Z86.73 Personal history of transient ischemic attack (TIA), and cerebral infarction without residual deficits; Z87.891 Personal history of nicotine dependence; Z88.1 Allergy status to other antibiotic agents; Z88.8 Allergy status to other drugs, medicaments and biological substances
CPT/HCPCS: 36415; 70450; 71045; 71250; 72125; 74176; 80048; 80053; 83540; 83550; 83735; 83880; 84484; 85025; 85027; 86706; 87340; 87635; 90935; 93005; 96365; 96366; 96372; 96375; 99285

== ENCOUNTER 2024-06-27 18:41 | Inpatient (IN) | payer OTHER, MEDICARE ==
--- NOTE | 2024-06-27 18:48 | ED ---
SOB HPI - General Stated Complaint: MICHAEL Time Seen by Provider: 06/27/24 18:47 Source: RN notes reviewed, old records reviewed Mode of arrival: EMS Limitations: altered mental status - History of Present Illness Initial Comments: This is an 78-year-old male to the ER for evaluation recent fall with scapular fracture coming in for shortness of breath today. Patient had an x-ray showing bilateral infiltrates or edema, patient himself is a poor historian unable to provide history MD Complaint: shortness of breath, chest pain, pain with inspiration -: days(s) Severity: severe Severity scale (1-10): 9 Quality: aching Consistency: constant Improves With: nothing Worsens With: nothing Known History Of: COPD Context: recent URI, anxiety, recent illness Associated Symptoms: chest pain, pain with inspiration Treatments Prior to Arrival: none - Related Data Home Medications Medication Instructions Recorded Confirmed rOPINIRole HCL [Requip] 2 mg PO BID@0800,1700 05/01/22 06/28/24 Calcium Acetate [PhosLo] 2,001 mg PO TID-W/MEALS 08/16/22 06/28/24 allopurinoL [Zyloprim] 100 mg PO TUTHSA 02/12/23 06/28/24 Midodrine [ProAmatine] 5 mg PO AC-TID 09/25/23 06/28/24 PARoxetine [Paxil] 10 mg PO DAILY 03/19/24 06/28/24 Acetaminophen Tab [Tylenol] 650 mg PO Q8HR PRN 06/28/24 06/28/24 Albuterol Nebulized [Ventolin 2.5 mg INHALATION RT-Q4H PRN 06/28/24 06/28/24 Nebulized] Bumetanide [Bumex] 2 mg PO DAILY@0600 06/28/24 06/28/24 Famotidine [Pepcid] 20 mg PO DAILY 06/28/24 06/28/24 Heparin Sodium,Porcine (1 ml) 5,000 unit SQ Q8HR 06/28/24 06/28/24 [Heparin Sodium] Magnesium Hydroxide [Milk of 7,200 mg PO DAILY PRN MDD T 06/28/24 06/28/24 Magnesia Concentrate] Na Phos,M-B/Na Phos,Di-Ba [Fleet 133 ml RECTAL DAILY PRN 06/28/24 06/28/24 Adult] bisacodyL [Dulcolax] 10 mg RECTAL DAILY PRN 06/28/24 06/28/24 calcitrioL 0.25 mcg PO BENTON 06/28/24 06/28/24 Previous Rx's Medication Instructions Recorded Atorvastatin [Lipitor] 80 mg PO HS #60 tab 03/22/24 Allergies Allergy/AdvReac Type Severity Reaction Status Date / Time losartan Allergy Intermediate Swelling Verified 06/28/24 09:17 Aminoglycosides Allergy Unknown Unknown Verified 06/28/24 09:17 REINIER Inhibitors Allergy Unknown Verified 06/28/24 09:17 enalapril Allergy Swelling Verified 06/28/24 09:17 enalaprilat [From Vasotec] Allergy Swelling Verified 06/28/24 09:17 ibuprofen Allergy Unknown Verified 06/28/24 09:17 lisinopril Allergy Swelling Verified 06/28/24 09:17 vancomycin Allergy Unknown Verified 06/28/24 09:17 vitamin A Allergy Unknown Verified 06/28/24 09:17 gabapentin AdvReac Hallucinati Verified 06/28/24 09:17 ons/Nightma res Review of Systems ROS Statement: Those systems with pertinent positive or pertinent negative responses have been documented in the HPI. ROS Other: All systems not noted in ROS Statement are negative. 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%, history of renal transplant and 2 in 1992 from a donor and in 1995 from a living donor, history of neck fracture, history of Covid 19 infection, severe aortic stenosis, anemia of chronic disease neuropathy, dialysis Friday History of Any Multi-Drug Resistant Organisms: MRSA Date of last positivie culture/infection: 03/19/24 MDRO Source:: rt knee, blood Past Surgical History: Appendectomy Additional Past Surgical History / Comment(s): Kidney transplant in 07/28/1992 and 1995 and the patient has a fistula in the left upper extremity Past Anesthesia/Blood Transfusion Reactions: No Reported Reaction Past Psychological History: No Psychological Hx Reported Smoking Status: Former smoker Past Alcohol Use History: Rare Additional Past Alcohol Use History / Comment(s): per pt quit smoking ten years ago Past Drug Use History: None Reported - Past Family History Mother Family Medical History: Cancer Additional Family Medical History / Comment(s): Pancreatic cancer. Father Family Medical History: CVA/TIA Additional Family Medical History / Comment(s): of stroke. General Exam Limitations: altered mental status, physical limitation General appearance: alert, anxious, in distress Head exam: Present: atraumatic, normocephalic, normal inspection Eye exam: Present: normal appearance, PERRL, EOMI. Absent: scleral icterus, conjunctival injection, periorbital swelling ENT exam: Present: normal exam, mucous membranes moist Neck exam: Present: normal inspection. Absent: tenderness, meningismus, lymphadenopathy Respiratory exam: Present: respiratory distress, wheezes, rales, rhonchi, accessory muscle use, decreased breath sounds, prolonged expiratory. Absent: stridor Cardiovascular Exam: Present: regular rate, normal rhythm, normal heart sounds. Absent: systolic murmur, diastolic murmur, rubs, gallop, clicks GI/Abdominal exam: Present: soft, normal bowel sounds. Absent: distended, tenderness, guarding, rebound, rigid Extremities exam: Present: normal inspection, full ROM, normal capillary refill. Absent: tenderness, pedal edema, joint swelling, calf tenderness Back exam: Present: normal inspection Neurological exam: Present: alert, oriented X3, CN II-XII intact Psychiatric exam: Present: normal affect, normal mood Skin exam: Present: warm, dry, intact, normal color. Absent: rash Course Vital Signs 06/27/24 06/27/24 06/27/24 18:47 18:52 20:20 Temperature 99.0 F Pulse Rate 75 79 Respiratory 18 20 Rate Blood Pressure 121/106 Blood Pressure [Right Arm] O2 Sat by Pulse 100 Oximetry 06/27/24 06/27/24 06/27/24 20:25 22:43 22:50 Temperature Pulse Rate 80 77 78 Respiratory Rate Blood Pressure Blood Pressure [Right Arm] O2 Sat by Pulse Oximetry 06/27/24 06/28/24 06/28/24 22:52 02:37 04:00 Temperature Pulse Rate 77 74 67 Respiratory 18 20 16 Rate Blood Pressure 119/71 114/59 Blood Pressure [Right Arm] O2 Sat by Pulse 97 97 99 Oximetry 06/28/24 06/28/24 06/28/24 06:00 08:00 10:00 Temperature Pulse Rate 66 73 Respiratory 18 17 Rate Blood Pressure 124/70 124/64 Blood Pressure [Right Arm] O2 Sat by Pulse 98 99 99 Oximetry 06/28/24 06/28/24 06/28/24 10:01 10:10 12:33 Temperature Pulse Rate 81 78 74 Respiratory 20 Rate Blood Pressure 126/88 Blood Pressure [Right Arm] O2 Sat by Pulse 98 Oximetry 06/28/24 06/28/24 06/28/24 13:04 13:18 16:29 Temperature Pulse Rate 76 78 80 Respiratory 18 Rate Blood Pressure 124/69 Blood Pressure [Right Arm] O2 Sat by Pulse 96 Oximetry 06/28/24 06/28/24 06/28/24 16:32 16:41 19:09 Temperature 98.0 F Pulse Rate 76 78 80 Respiratory 20 Rate Blood Pressure 117/57 Blood Pressure [Right Arm] O2 Sat by Pulse 95 Oximetry 06/28/24 06/28/24 06/28/24 19:56 20:06 23:30 Temperature Pulse Rate 84 81 92 Respiratory Rate Blood Pressure Blood Pressure [Right Arm] O2 Sat by Pulse Oximetry 06/28/24 06/29/24 06/29/24 23:41 02:23 03:30 Temperature 98.6 F Pulse Rate 96 105 H 101 H Respiratory 20 18 Rate Blood Pressure 108/65 112/63 Blood Pressure [Right Arm] O2 Sat by Pulse 100 100 Oximetry 06/29/24 06/29/24 06/29/24 04:02 04:16 06:32 Temperature Pulse Rate 104 H 108 H 105 H Respiratory 18 Rate Blood Pressure 114/56 Blood Pressure [Right Arm] O2 Sat by Pulse 96 Oximetry 06/29/24 06/29/24 06/29/24 07:47 08:40 11:42 Temperature 98.3 F Pulse Rate 105 H 102 H 87 Respiratory 22 24 24 Rate Blood Pressure 111/63 Blood Pressure [Right Arm] O2 Sat by Pulse 100 100 Oximetry 06/29/24 06/29/24 06/29/24 11:48 14:57 15:47 Temperature Pulse Rate 87 69 72 Respiratory 22 21 18 Rate Blood Pressure 96/63 Blood Pressure [Right Arm] O2 Sat by Pulse 99 Oximetry 06/29/24 06/29/24 17:50 17:57 Temperature 97.9 F Pulse Rate 80 Respiratory 20 18 Rate Blood Pressure 124/76 Blood Pressure 109/73 [Right Arm] O2 Sat by Pulse 99 Oximetry - Reevaluation(s) Reevaluation #1: 06/27/24 19:08 Records reviewed Reevaluation #2: 06/27/24 21:23 Has no improvement in symptoms here in the ER Reevaluation #3: 06/27/24 21:23 Patient informed of results questions answered Reevaluation #4: Was pt. sent in by a medical professional or institution ([facility], SOCIETY REPORTER, urgent care, hospital, or custodial...) When possible be specific @ -no Did you speak to anyone other than the patient for history (EMS, parent, family, police, friend...)? What history was obtained from this source @ -no Did you review nursing and triage notes (agree or disagree)? Why? @ -agree Are old charts reviewed (outside hosp., previous admission, EMS record, old EKG, old radiological studies, urgent care reports/EKG's, custodial records)? Report findings @ -yes Differential Diagnosis (chest pain, altered mental status, abdominal pain women, abdominal pain men, vaginal bleeding, weakness, fever, dyspnea, syncope, headache, dizziness, GI bleed, back pain, seizure, CVA, palpatations, mental health, musculoskeletal)? @ -prior EKG interpreted by me (3pts min.). @ -yes X-rays interpreted by me (1pt min.). @ -yes negative for acute disease CT interpreted by me (1pt min.). @ -no U/S interpreted by me (1pt. min.). @ -no What testing was considered but not performed or refused? (CT, X-rays, U/S, labs)? Why? @ -none What meds were considered but not given or refused? Why? @ -none Did you discuss the management of the patient with other professionals (professionals i.e. [facility], SOCIETY REPORTER, lab, RT, psych nurse, clinical social work therapist, household refrigeration mechanic, teacher, fire officer, caseworker intake)? Give summary @ -no Was smoking cessation discussed for >3mins.? @ -no Was critical care preformed (if so, how long)? @ -yes31 Were there social determinants of health that impacted care today? How? (Homelessness, low income, unemployed, alcoholism, drug addiction, transportation, low edu. Level, literacy, decrease access to med. care, [facility], rehab)? @ -none Was there de-escalation of care discussed even if they declined (Discuss DNR or withdrawal of care, Hospice)? DNR status @ -no What co-morbidities impacted this encounter? (DM, HTN, Smoking, COPD, CAD, Cancer, CVA, ARF, Chemo, Hep., AIDS, mental health diagnosis, sleep apnea, morbid obesity)? @ -none Was patient admitted / discharged? Hospital course, mention meds given and route, prescriptions, significant lab abnormalities, going to OR and other pertinent info. @ - 78 male to the ER for evaluation patient at this time comes in for evaluation of dyspnea shortness of breath bilateral pleural effusions pneumonia hypoxia Admitted Undiagnosed new problem with uncertain prognosis? @ -no Drug Therapy requiring intensive monitoring for toxicity (Heparin, Nitro, I nsulin, Cardizem)? @ -no Were any procedures done? @ -no Diagnosis/symptom? @ -Bilateral pleural effusions and pneumonia with hypoxia and respiratory failure Acute, or Chronic, or Acute on Chronic? @ -Acute Uncomplicated (without systemic symptoms) or Complicated (systemic symptoms)? @ -Complicated Side effects of treatment? @ -no Exacerbation, Progression, or Severe Exacerbation? @ -exacerbation Poses a threat to life or bodily function? How? (Chest pain, USA, ME, pneumonia, PE, COPD, DKA, ARF, appy, cholecystitis, CVA, Diverticulitis, Homicidal, Suicidal, threat to staff... and all critical care pts) @ -yes yes with respiratory failure Reevaluation #5: Differential Dyspnea: Coronary syndrome, arrhythmia, tamponade, asthma, COPD, pulmonary embolism, pneu monia, pneumothorax, pulmonary effusion, anaphylaxis, diabetic ketoacidosis, flailed chest, pulmonary contusion, diaphragmatic rupture, anemia, neuromuscular, this is not meant to be an all-inclusive list. - Consultations Consultation #1: Spoke with rusty who agrees to admit this patient Medical Decision Making - Medical Decision Making 78 male to the ER for evaluation patient at this time comes in for evaluation of dyspnea shortness of breath bilateral pleural effusions pneumonia hypoxia - Lab Data Result diagrams: 07/04/24 10:32 07/04/24 10:32 Lab Results 06/27/24 06/27/24 06/27/24 Range/Units 19:33 19:33 19:33 WBC 7.5 (3.8-10.6) k/uL RBC 2.43 L (4.30-5.90) m/uL Hgb 8.1 L (13.0-17.5) gm/dL Hct 24.9 L (39.0-53.0) % MCV 102.7 H D (80.0-100.0) fL MCH 33.6 (25.0-35.0) pg MCHC 32.7 (31.0-37.0) g/dL RDW 20.5 H (11.5-15.5) % Plt Count 116 L D (150-450) k/uL MPV 9.7 Neutrophils % 75 % Lymphocytes % 11 % Monocytes % 9 % Eosinophils % 2 % Basophils % 1 % Neutrophils # 5.6 (1.3-7.7) k/uL Lymphocytes # 0.8 L (1.0-4.8) k/uL Monocytes # 0.6 (0-1.0) k/uL Eosinophils # 0.1 (0-0.7) k/uL Basophils # 0.0 (0-0.2) k/uL Manual Slide Review Hypochromasia Slight Poikilocytosis Slight Anisocytosis Moderate Macrocytosis Moderate PT 13.1 H (10.0-12.5) sec INR 1.2 H (<1.2) APTT 33.9 H (22.0-30.0) sec Sodium 134 L (137-145) mmol/L Potassium 4.7 (3.5-5.1) mmol/L Chloride 95 L (98-107) mmol/L Carbon Dioxide 31 H (22-30) mmol/L Anion Gap 8 mmol/L BUN 41 H (9-20) mg/dL Creatinine 4.36 H (0.66-1.25) mg/dL Est GFR (CKD-EPI)AfAm 14 (>60 ml/min/1.73 sqM) Est GFR (CKD-EPI)NonAf 12 (>60 ml/min/1.73 sqM) Glucose 100 H (74-99) mg/dL Plasma Lactic Acid Ryan (0.7-2.0) mmol/L Calcium 8.3 L (8.4-10.2) mg/dL Magnesium 2.0 (1.6-2.3) mg/dL Iron (65-175) UG/DL TIBC (228-460) UG/DL % Saturation (15.00-50.00) Transferrin (204.0-354.0) mg/dL Ferritin (22.0-322.0) ng/mL Total Bilirubin 1.5 H (0.2-1.3) mg/dL AST 148 H (17-59) U/L ALT 76 H (4-49) U/L Alkaline Phosphatase 236 H (38-126) U/L Troponin I (0.000-0.034) ng/mL NT-Pro-B Natriuret Pep 099748 pg/mL Total Protein 6.1 L (6.3-8.2) g/dL Albumin 2.8 L (3.5-5.0) g/dL Procalcitonin (0.02-0.50) ng/mL Influenza Type A (PCR) (Not Detectd) Influenza Type B (PCR) (Not Detectd) RSV (PCR) (Not Detectd) SARS-CoV-2 (PCR) (Not Detectd) 06/27/24 06/27/24 06/27/24 Range/Units 19:33 19:33 21:52 WBC (3.8-10.6) k/uL RBC (4.30-5.90) m/uL Hgb (13.0-17.5) gm/dL Hct (39.0-53.0) % MCV (80.0-100.0) fL MCH (25.0-35.0) pg MCHC (31.0-37.0) g/dL RDW (11.5-15.5) % Plt Count (150-450) k/uL MPV Neutrophils % % Lymphocytes % % Monocytes % % Eosinophils % % Basophils % % Neutrophils # (1.3-7.7) k/uL Lymphocytes # (1.0-4.8) k/uL Monocytes # (0-1.0) k/uL Eosinophils # (0-0.7) k/uL Basophils # (0-0.2) k/uL Manual Slide Review Hypochromasia Poikilocytosis Anisocytosis Macrocytosis PT (10.0-12.5) sec INR (<1.2) APTT (22.0-30.0) sec Sodium (137-145) mmol/L Potassium (3.5-5.1) mmol/L Chloride (98-107) mmol/L Carbon Dioxide (22-30) mmol/L Anion Gap mmol/L BUN (9-20) mg/dL Creatinine (0.66-1.25) mg/dL Est GFR (CKD-EPI)AfAm (>60 ml/min/1.73 sqM) Est GFR (CKD-EPI)NonAf (>60 ml/min/1.73 sqM) Glucose (74-99) mg/dL Plasma Lactic Acid Ryan 1.8 (0.7-2.0) mmol/L Calcium (8.4-10.2) mg/dL Magnesium (1.6-2.3) mg/dL Iron (65-175) UG/DL TIBC (228-460) UG/DL % Saturation (15.00-50.00) Transferrin (204.0-354.0) mg/dL Ferritin (22.0-322.0) ng/mL Total Bilirubin (0.2-1.3) mg/dL AST (17-59) U/L ALT (4-49) U/L Alkaline Phosphatase (38-126) U/L Troponin I 0.440 H* (0.000-0.034) ng/mL NT-Pro-B Natriuret Pep pg/mL Total Protein (6.3-8.2) g/dL Albumin (3.5-5.0) g/dL Procalcitonin (0.02-0.50) ng/mL Influenza Type A (PCR) Not Detected (Not Detectd) Influenza Type B (PCR) Not Detected (Not Detectd) RSV (PCR) Not Detected (Not Detectd) SARS-CoV-2 (PCR) Not Detected (Not Detectd) 06/28/24 06/28/24 06/28/24 Range/Units 06:42 06:42 06:42 WBC 5.4 (3.8-10.6) k/uL RBC 2.36 L (4.30-5.90) m/uL Hgb 7.8 L (13.0-17.5) gm/dL Hct 25.2 L (39.0-53.0) % MCV 107.0 H (80.0-100.0) fL MCH 33.0 (25.0-35.0) pg MCHC 30.9 L (31.0-37.0) g/dL RDW 19.7 H (11.5-15.5) % Plt Count 93 L (150-450) k/uL MPV 9.6 Neutrophils % 74 % Lymphocytes % 14 % Monocytes % 7 % Eosinophils % 2 % Basophils % 1 % Neutrophils # 4.0 (1.3-7.7) k/uL Lymphocytes # 0.8 L (1.0-4.8) k/uL Monocytes # 0.4 (0-1.0) k/uL Eosinophils # 0.1 (0-0.7) k/uL Basophils # 0.0 (0-0.2) k/uL Manual Slide Review Performed Hypochromasia Marked Poikilocytosis Anisocytosis Slight Macrocytosis Marked A PT (10.0-12.5) sec INR (<1.2) APTT (22.0-30.0) sec Sodium 135 L (137-145) mmol/L Potassium 4.4 (3.5-5.1) mmol/L Chloride 98 (98-107) mmol/L Carbon Dioxide 28 (22-30) mmol/L Anion Gap 9 mmol/L BUN 44 H (9-20) mg/dL Creatinine 5.08 H (0.66-1.25) mg/dL Est GFR (CKD-EPI)AfAm 11 (>60 ml/min/1.73 sqM) Est GFR (CKD-EPI)NonAf 10 (>60 ml/min/1.73 sqM) Glucose 88 (74-99) mg/dL Plasma Lactic Acid Ryan (0.7-2.0) mmol/L Calcium 8.1 L (8.4-10.2) mg/dL Magnesium 2.0 (1.6-2.3) mg/dL Iron (65-175) UG/DL TIBC (228-460) UG/DL % Saturation (15.00-50.00) Transferrin (204.0-354.0) mg/dL Ferritin (22.0-322.0) ng/mL Total Bilirubin 1.1 (0.2-1.3) mg/dL AST 141 H (17-59) U/L ALT 79 H (4-49) U/L Alkaline Phosphatase 237 H (38-126) U/L Troponin I (0.000-0.034) ng/mL NT-Pro-B Natriuret Pep pg/mL Total Protein 5.9 L (6.3-8.2) g/dL Albumin 2.7 L (3.5-5.0) g/dL Procalcitonin 0.91 H (0.02-0.50) ng/mL Influenza Type A (PCR) (Not Detectd) Influenza Type B (PCR) (Not Detectd) RSV (PCR) (Not Detectd) SARS-CoV-2 (PCR) (Not Detectd) 06/28/24 06/28/24 06/28/24 Range/Units 06:42 11:19 11:19 WBC (3.8-10.6) k/uL RBC (4.30-5.90) m/uL Hgb (13.0-17.5) gm/dL Hct (39.0-53.0) % MCV (80.0-100.0) fL MCH (25.0-35.0) pg MCHC (31.0-37.0) g/dL RDW (11.5-15.5) % Plt Count (150-450) k/uL MPV Neutrophils % % Lymphocytes % % Monocytes % % Eosinophils % % Basophils % % Neutrophils # (1.3-7.7) k/uL Lymphocytes # (1.0-4.8) k/uL Monocytes # (0-1.0) k/uL Eosinophils # (0-0.7) k/uL Basophils # (0-0.2) k/uL Manual Slide Review Hypochromasia Poikilocytosis Anisocytosis Macrocytosis PT (10.0-12.5) sec INR (<1.2) APTT (22.0-30.0) sec Sodium (137-145) mmol/L Potassium (3.5-5.1) mmol/L Chloride (98-107) mmol/L Carbon Dioxide (22-30) mmol/L Anion Gap mmol/L BUN (9-20) mg/dL Creatinine (0.66-1.25) mg/dL Est GFR (CKD-EPI)AfAm (>60 ml/min/1.73 sqM) Est GFR (CKD-EPI)NonAf (>60 ml/min/1.73 sqM) Glucose (74-99) mg/dL Plasma Lactic Acid Ryan (0.7-2.0) mmol/L Calcium (8.4-10.2) mg/dL Magnesium (1.6-2.3) mg/dL Iron 37 L (65-175) UG/DL TIBC 186 L (228-460) UG/DL % Saturation 19.89 (15.00-50.00) Transferrin 133.0 L (204.0-354.0) mg/dL Ferritin 1394.0 H (22.0-322.0) ng/mL Total Bilirubin (0.2-1.3) mg/dL AST (17-59) U/L ALT (4-49) U/L Alkaline Phosphatase (38-126) U/L Troponin I 0.450 H* 0.426 H* (0.000-0.034) ng/mL NT-Pro-B Natriuret Pep pg/mL Total Protein (6.3-8.2) g/dL Albumin (3.5-5.0) g/dL Procalcitonin (0.02-0.50) ng/mL Influenza Type A (PCR) (Not Detectd) Influenza Type B (PCR) (Not Detectd) RSV (PCR) (Not Detectd) SARS-CoV-2 (PCR) (Not Detectd) - EKG Data -: EKG Interpreted by Me (EKG is sinus 82 AR 187 QRS 134 QTc 434) - Radiology Data Radiology results: report reviewed (X-ray positive for bilateral pleural effusions likely pneumonia underlying pneumonia), image reviewed Critical Care Time Critical Care Time: Yes Total Critical Care Time: 31 Disposition Clinical Impression: Non-STEMI (non-ST elevated myocardial infarction), Acute on chronic combined systolic (congestive) and diastolic (congestive) heart failure, Dialysis patient, Volume overload, End stage renal disease, Delirium due to general medical condition, Acute pulmonary edema, Bilateral pleural effusion, Pneumonia, Hypoxia Disposition: ADMITTED IP TO THIS HOSP Condition: Fair Is patient prescribed a controlled substance at d/c from ED?: No Time of Disposition: 21:00
[2024-06-27] MEDS: SODIUM CHLORIDE 0.9% 1,000 ML IV STA (19:39)
[2024-06-27 20:13] LABS: INR 1.2 (<1.2); Prothrombin Time 13.1 sec (10.0-12.5)
[2024-06-27 20:14] LABS: Partial Thromboplastin Time 33.9 sec (22.0-30.0)
[2024-06-27] MEDS: IPRATROPIUM-ALBUTEROL 3 ML NEB INHALATION STA ×2 (20:17→22:42)
[2024-06-27 20:20] LABS: ALT 76 U/L (4-49); AST 148 U/L (17-59); African American GFR (CKD) 14 (>60 ml/min/1.73 sqM); Albumin 2.8 g/dL (3.5-5.0); Alkaline Phosphatase 236 U/L (38-126); Anion Gap 8 mmol/L; Blood Urea Nitrogen 41 mg/dL (9-20); Calcium 8.3 mg/dL (8.4-10.2); Carbon Dioxide 31 mmol/L (22-30); Chloride 95 mmol/L (98-107); Glucose 100 mg/dL (74-99); Non-African American GFR(CKD) 12 (>60 ml/min/1.73 sqM); Potassium 4.7 mmol/L (3.5-5.1); Sodium 134 mmol/L (137-145); Total Bilirubin 1.5 mg/dL (0.2-1.3); Total Protein 6.1 g/dL (6.3-8.2)
[2024-06-27 20:23] LABS: Anisocytosis Moderate; Basophils % (A) 1 %; Eosinophils # (A) 0.1 k/uL (0-0.7); Eosinophils % (A) 2 %; HCT 24.9 % (39.0-53.0); HGB 8.1 gm/dL (13.0-17.5); Hypochromasia Slight; Lymphocytes # (A) 0.8 k/uL (1.0-4.8); Lymphocytes % (A) 11 %; MCH 33.6 pg (25.0-35.0); MCHC 32.7 g/dL (31.0-37.0); Macrocytosis Moderate; Mean Platelet Volume 9.7; Monocytes # (A) 0.6 k/uL (0-1.0); Monocytes % (A) 9 %; Neutrophils # (A) 5.6 k/uL (1.3-7.7); Neutrophils % (A) 75 %; Poikilocytosis Slight; RBC 2.43 m/uL (4.30-5.90); RDW 20.5 % (11.5-15.5); WBC 7.5 k/uL (3.8-10.6)
[2024-06-27 20:25] LABS: MCV 102.7 fL (80.0-100.0); Platelet Count 116 k/uL (150-450)
--- NOTE | 2024-06-27 20:59 | XR ---
EXAMINATION TYPE: XR chest 2V DATE OF EXAM: 06/27/2024 8:16 PM COMPARISON: Chest radiographs from [facility] 2024 CLINICAL INDICATION: Male, 78 years old with history of difficulty breathing; [facility] TECHNIQUE: XR chest 2V Frontal and lateral views of the chest. FINDINGS: Lungs/Pleura: There is no evidence of pleural effusion, focal consolidation, or pneumothorax. Pulmonary vascularity: Unremarkable. Heart/mediastinum: Cardiomediastinal silhouette is enlarged and stable. Musculoskeletal: No acute osseous pathology. IMPRESSION: Similar suspected bibasilar pneumonia [facility] Brii Lopez, , 06/27/2024 8:57 PM
[2024-06-27 21:00] LABS: NT-Pro-B-Type Natriuretic Pept 123000 pg/mL
[2024-06-27] MEDS ORDERED: PNEUMONIA PROTOCOL UTILIZED 1 EACH MISC PO PRN (21:19)
[2024-06-27 22:35] LABS: Influenza A Not Detected (Not Detectd); Influenza B Not Detected (Not Detectd); RSV Not Detected (Not Detectd)
[2024-06-27] MEDS: oxyCODONE-APAP 5-325MG 1 EACH TAB PO PRN (22:52)
[2024-06-27] MEDS: AZITHROMYCIN 500 MG in SODIUM CHLORIDE 0.9% 250 ML IVPB STA (22:54)
--- NOTE | 2024-06-28 01:47 | P.HPIM ---
History of Present Illness H&P Date: 06/28/24 Chief Complaint: Shortness of breath Patient is an 78-year-old male with past medical history of ESRD status post kidney transplant on hemodialysis, dyslipidemia, severe aortic stenosis, HFrEF EF 30 to 35%, severe pulmonary hypertension who presents to the ED shortness of breath. Per ED note patient is a poor historian, presented with shortness of breath, chest pain and pain with inspiration. At the time of my assessment patient was confused and was not able to provide much history. He could not recall why he was at the hospital. He did report mild shortness of breath at the time of interview but had no additional complaints. He denied experiencing chest discomfort, shortness of breath, cough, nausea, vomiting, abdominal pain, diarrhea. Of note the patient was recently admitted for clavicular fracture and discharged 1 week ago. Vitals on admission temperature 98.2, respiratory rate 18, blood pressure 113/56, O2 saturation 98% on 2 L nasal cannula EKG independently interpreted as sinus rhythm with frequent PVCs, rate of 82 bpm and QTc of 434 ms CXR shows suspected bibasilar pneumonia Labs on admission show WBC 7.5, hemoglobin 8.1, MCV 102.7, platelets 116. PT 13.1, INR 1.2, PTT 33.9. Sodium 134, potassium 4.7, chloride 95, bicarb 31, BUN 41, creatinine 4.36, glucose 100. Calcium 8.3. Magnesium 2.0. Lactic acid 1.8. AST 148 ALT 76 ALP 236. Troponin 0.440. NT proBNP 123,000. Review of systems: Pertinent positives and negatives as discussed in HPI, a complete review of systems was performed and all other systems are negative. Physical examination: Vital signs reviewed General: nontoxic, no distress, appears at stated age Derm: warm, dry, intact, large hematoma noted on left chest Head: atraumatic, normocephalic, symmetric Eyes: Did not assess Mouth: no lip lesion, mucus membranes moist Cardiovascular: S1 S2 reg, systolic ejection murmur loudest at RUSB Lungs: Crackles noted bilaterally throughout lung bhardwaj Abdominal: soft, non-tender to palpation, nondistended Extremities: No cyanosis, clubbing, or pedal edema. Psych: well appearing, appropriate affect Neuro: Sleepy, oriented to person, place, and time, haris LE strength 4/5 with haris UE strength 5/5 with no gross focal deficits noted on neurological examination, CN II-XII intact Assessment/Plan: Patient is a 78-year-old male with past medical history of ESRD on hemodialysis, dyslipidemia, aortic stenosis, HFrEF, severe pulmonary hypertension who presented with shortness of breath. Case was discussed with the ED physician and patient will be admitted to internal medicine service for further evaluation. Active: Acute hypoxic respiratory failure, suspect multifactorial in setting of fluid overload secondary to ESRD and systolic CHF exacerbation (HFrEF 30 to 35%), unable to rule out community-acquired pneumonia Severe aortic stenosis CXR shows suspected bibasilar opacities NT proBNP 123,000 Supplemental oxygen Continue Zithromax 500 mg daily Continue Rocephin 2 g daily DuoNebs 4 times daily Obtain procalcitonin Consult pulmonology Continue Bumex 4 mg daily Strict intake and output Daily weight Cardiology consult Cardiac monitoring Obtain daily BMP and Magnesium levels F/u Echocardiogram Consult nephrology for hemodialysis Continue Bumex 4 mg daily Anemia of chronic disease Hemoglobin of 8.1 Continue to monitor Transfuse if less than 7 Elevated troponin, possibly secondary to ESRD with CHF exacerbation Continue to trend Cardiac telemetry Consult cardiology Transaminitis AST 148, ALT 76, ALP 236. Continue to monitor Chronic: Gout Hold allopurinol Dyslipidemia Continue Lipitor 80 mg p.o. at bedtime F: KVO E: Replete as needed N: Heart healthy A: Fall precautions DVT prophylaxis: Heparin 5000 units subcu every 8 hours The patient is admitted with an anticipated more than 2 midnight stay for evaluation of acute hypoxic respiratory failure multifactorial. 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%, history of renal transplant and 2 in 1992 from a donor and in 1995 from a living donor, history of neck fracture, history of Covid 19 infection, severe aortic stenosis, anemia of chronic disease neuropathy, dialysis Friday History of Any Multi-Drug Resistant Organisms: MRSA Date of last positivie culture/infection: 03/19/24 MDRO Source:: rt knee, blood Past Surgical History: Appendectomy Additional Past Surgical History / Comment(s): Kidney transplant in 07/28/1992 and 1995 and the patient has a fistula in the left upper extremity Past Anesthesia/Blood Transfusion Reactions: No Reported Reaction Past Psychological History: No Psychological Hx Reported Smoking Status: Former smoker Past Alcohol Use History: Rare Additional Past Alcohol Use History / Comment(s): per pt quit smoking ten years ago Past Drug Use History: None Reported - Past Family History Mother Family Medical History: Cancer Additional Family Medical History / Comment(s): Pancreatic cancer. Father Family Medical History: CVA/TIA Additional Family Medical History / Comment(s): of stroke. Medications and Allergies Home Medications Medication Instructions Recorded Confirmed Type [place]-3/Dha/Epa/Fish Oil [Fish Oil 1 cap PO DAILY 01/29/22 06/16/24 History 1,000 mg Softgel] rOPINIRole HCL [Requip] 2 mg PO BID 05/01/22 06/16/24 History Bumetanide [BUMEX] 4 mg PO DAILY 08/16/22 06/16/24 History Calcium Acetate [PhosLo] 1,334 mg PO TID-W/MEALS 08/16/22 06/16/24 History allopurinoL [Zyloprim] 100 mg PO DAILY 02/12/23 06/16/24 History oxyCODONE-APAP 5-325MG [Percocet 1 tab PO TID PRN 02/12/23 06/16/24 History 5-325 mg] Midodrine [ProAmatine] 5 mg PO AC-BID PRN 09/25/23 06/16/24 History Carboxymethylcellulose Sodium 1 drop BOTH EYES TID 03/19/24 06/16/24 History [Refresh Tears] Cholecalciferol (Vitamin D3) 50 mcg PO DAILY 03/19/24 06/16/24 History [Vitamin D3 (50 Mcg = 2000 Iu)] Lidocaine 5% Oint [Xylocaine 5% 1 applic TOPICAL DIRECTED PRN 03/19/24 History Oint] PARoxetine [Paxil] 10 mg PO DAILY 03/19/24 06/16/24 History Aspirin 81 mg PO DAILY #60 tab 03/22/24 06/16/24 Rx Atorvastatin [Lipitor] 80 mg PO HS #60 tab 03/22/24 06/16/24 Rx Metoprolol Succinate (ER) [Toprol 12.5 mg PO DAILY #30 tab 05/03/24 06/16/24 Rx XL] Allergies Allergy/AdvReac Type Severity Reaction Status Date / Time losartan Allergy Intermediate Swelling Verified 06/27/24 18:52 Aminoglycosides Allergy Unknown Unknown Verified 06/27/24 18:52 REINIER Inhibitors Allergy Unknown Verified 06/27/24 18:52 enalapril Allergy Swelling Verified 06/27/24 18:52 enalaprilat [From Vasotec] Allergy Swelling Verified 06/27/24 18:52 ibuprofen Allergy Unknown Verified 06/27/24 18:52 lisinopril Allergy Swelling Verified 06/27/24 18:52 vancomycin Allergy Unknown Verified 06/27/24 18:52 vitamin A Allergy Unknown Verified 06/27/24 18:52 gabapentin AdvReac Hallucinati Verified 06/27/24 18:52 ons/Nightma res Physical Exam Vitals: Vital Signs Temp Pulse Resp BP Pulse Ox 06/27/24 22:52 77 18 119/71 97 06/27/24 22:50 78 06/27/24 22:43 77 06/27/24 20:25 80 06/27/24 20:20 79 06/27/24 18:52 20 06/27/24 18:47 99.0 F 75 18 121/106 100 Intake and Output 06/27/24 06/27/24 06/28/24 14:59 22:59 06:59 Other: Weight 77.111 kg Results CBC & Chem 7: 06/27/24 19:33 06/27/24 19:33 Labs: Abnormal Lab Results - Last 24 Hours (Table) 06/27/24 06/27/24 06/27/24 Range/Units 19:33 19:33 19:33 RBC 2.43 L (4.30-5.90) m/uL Hgb 8.1 L (13.0-17.5) gm/dL Hct 24.9 L (39.0-53.0) % MCV 102.7 H D (80.0-100.0) fL RDW 20.5 H (11.5-15.5) % Plt Count 116 L D (150-450) k/uL Lymphocytes # 0.8 L (1.0-4.8) k/uL PT 13.1 H (10.0-12.5) sec INR 1.2 H (<1.2) APTT 33.9 H (22.0-30.0) sec Sodium 134 L (137-145) mmol/L Chloride 95 L (98-107) mmol/L Carbon Dioxide 31 H (22-30) mmol/L BUN 41 H (9-20) mg/dL Creatinine 4.36 H (0.66-1.25) mg/dL Glucose 100 H (74-99) mg/dL Calcium 8.3 L (8.4-10.2) mg/dL Total Bilirubin 1.5 H (0.2-1.3) mg/dL AST 148 H (17-59) U/L ALT 76 H (4-49) U/L Alkaline Phosphatase 236 H (38-126) U/L Troponin I (0.000-0.034) ng/mL Total Protein 6.1 L (6.3-8.2) g/dL Albumin 2.8 L (3.5-5.0) g/dL 06/27/24 Range/Units 19:33 RBC (4.30-5.90) m/uL Hgb (13.0-17.5) gm/dL Hct (39.0-53.0) % MCV (80.0-100.0) fL RDW (11.5-15.5) % Plt Count (150-450) k/uL Lymphocytes # (1.0-4.8) k/uL PT (10.0-12.5) sec INR (<1.2) APTT (22.0-30.0) sec Sodium (137-145) mmol/L Chloride (98-107) mmol/L Carbon Dioxide (22-30) mmol/L BUN (9-20) mg/dL Creatinine (0.66-1.25) mg/dL Glucose (74-99) mg/dL Calcium (8.4-10.2) mg/dL Total Bilirubin (0.2-1.3) mg/dL AST (17-59) U/L ALT (4-49) U/L Alkaline Phosphatase (38-126) U/L Troponin I 0.440 H* (0.000-0.034) ng/mL Total Protein (6.3-8.2) g/dL Albumin (3.5-5.0) g/dL
--- NOTE | 2024-06-28 02:19 | P.CNPUL ---
History of Present Illness Consult date: 06/28/24 Requesting physician: Dalton Overton Reason for consult: pneumonia Chief complaint: Shortness of breath History of present illness: Patient is a 78-year-old male with past medical history significant for severe aortic stenosis, congestive heart failure, kidney transplant, end-stage renal disease, and recent fall resulting in left scapular fracture. PCP is Dr. Pereira. He presented emergency department yesterday evening, reportedly with a chief complaint of short of breath. He is hard of hearing, making difficult to communicate. When asked about his shortness of breath, he states that has been ongoing for almost a year. He is chronically oxygen pendant on 2 to 3 L/min nasal cannula while at home. He is currently residing at [facility] for rehab after a fall resulting in a left scapular fracture and T9 compression fracture on June 16. He was transferred to [facility] as the patient was felt to be high surgical risk. Patient states that they could not do anything for him there. He believes the reason he was sent in from [facility] was for low blood pressures. CBC: WBC count 7.5, hemoglobin 8.1, hematocrit 24.9, platelets 116. CMP: Sodium 134, potassium 4.7, chloride 95, serum bicarb 31, BUN 41, creatinine 4.36, glucose 100. Lactic 1.8. LFTs mildly elevated. Troponin 0.44. NT proBNP 123,000. EKG: Normal sinus rhythm, rate 82 bpm, interventricular conduction delay, with frequent PVCs. Patient states that his dyspnea is chronic in nature. He is currently resting in bed on 3 L/min nasal cannula which she states he wears at home. Chest x-ray interpreted by me to show cardiomegaly, likely bilateral small pleural effusions, right hilar and upper lobe opacities or asymmetric pulmonary edema. Patient is currently being evaluated in the emergency department. Patient denies any weight gain or lower extremity swelling. Known to have end-stage renal disease and undergoes hemodialysis on a Friday, , Friday schedule. Denies missing any treatments. States he does not make urine, but does take Bumex on outpatient basis. He is also known to have severe aortic valve stenosis and cardiomyopathy. Most recent echocardiogram from April, estimating ejection fraction of 30 to 35%, as well as, grade 3 diastolic dysfunction, severe pulmonary hypertension with a mean gradient of 71 mmHg, as well as, severe aortic stenosis with mean gradient 38 mmHg. He denies any infectious- like symptoms such as fevers, chills, chest pain, change in his chronic cough, purulent sputum production. Does endorse an occasional cough with clear sputum. Viral screen negative for influenza, RSV, COVID. Current most recent vitals: Temperature 99 F, heart rate 77 bpm, blood pressure 119/71 mmHg, nontachypneic, SpO2 97% on 3 L/min nasal cannula. Nontoxic appearance. Review of Systems Constitutional: Reports fatigue, Denies chills, Denies fever, Denies poor appetite, Denies weight gain, Denies weight loss Ears, nose, mouth and throat: Denies headache, Denies nasal congestion, Denies nasal discharge, Denies post-nasal drip, Denies sinus pain, Denies sinus pressur e, Denies sore throat Cardiovascular: Reports dyspnea on exertion, Reports shortness of breath, Denies chest pain, Denies leg edema, Denies orthopnea, Denies palpitations, Denies paroxysmal nocturnal dyspnea, Denies syncope Respiratory: Reports cough, Reports dyspnea, Reports home oxygen, Denies congestion, Denies excessive sputum, Denies hemoptysis, Denies pain on inspiration Gastrointestinal: Denies abdominal pain, Denies change in bowel habits, Denies diarrhea, Denies nausea, Denies vomiting Genitourinary: Denies dysuria Musculoskeletal: Reports fractures Musculoskeletal: left: shoulder pain, shoulder stiffness Integumentary: Denies rash Neurological: Denies seizures, Denies syncope Psychiatric: Denies anxiety, Denies depression 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%, history of renal transplant and 2 in 1992 from a donor and in 1995 from a living donor, history of neck fracture, history of Covid 19 infection, severe aortic stenosis, anemia of chronic disease neuropathy, dialysis Friday History of Any Multi-Drug Resistant Organisms: MRSA Date of last positivie culture/infection: 03/19/24 MDRO Source:: rt knee, blood Past Surgical History: Appendectomy Additional Past Surgical History / Comment(s): Kidney transplant in 07/28/1992 and 1995 and the patient has a fistula in the left upper extremity Past Anesthesia/Blood Transfusion Reactions: No Reported Reaction Past Psychological History: No Psychological Hx Reported Smoking Status: Former smoker Past Alcohol Use History: Rare Additional Past Alcohol Use History / Comment(s): per pt quit smoking ten years ago Past Drug Use History: None Reported - Past Family History Mother Family Medical History: Cancer Additional Family Medical History / Comment(s): Pancreatic cancer. Father Family Medical History: CVA/TIA Additional Family Medical History / Comment(s): of stroke. Medications and Allergies Home Medications Medication Instructions Recorded Confirmed Type [place]-3/Dha/Epa/Fish Oil [Fish Oil 1 cap PO DAILY 01/29/22 06/16/24 History 1,000 mg Softgel] rOPINIRole HCL [Requip] 2 mg PO BID 05/01/22 06/16/24 History Bumetanide [BUMEX] 4 mg PO DAILY 08/16/22 06/16/24 History Calcium Acetate [PhosLo] 1,334 mg PO TID-W/MEALS 08/16/22 06/16/24 History allopurinoL [Zyloprim] 100 mg PO DAILY 02/12/23 06/16/24 History oxyCODONE-APAP 5-325MG [Percocet 1 tab PO TID PRN 02/12/23 06/16/24 History 5-325 mg] Midodrine [ProAmatine] 5 mg PO AC-BID PRN 09/25/23 06/16/24 History Carboxymethylcellulose Sodium 1 drop BOTH EYES TID 03/19/24 06/16/24 History [Refresh Tears] Cholecalciferol (Vitamin D3) 50 mcg PO DAILY 03/19/24 06/16/24 History [Vitamin D3 (50 Mcg = 2000 Iu)] Lidocaine 5% Oint [Xylocaine 5% 1 applic TOPICAL DIRECTED PRN 03/19/24 06/16/24 History Oint] PARoxetine [Paxil] 10 mg PO DAILY 03/19/24 06/16/24 History Aspirin 81 mg PO DAILY #60 tab 03/22/24 06/16/24 Rx Atorvastatin [Lipitor] 80 mg PO HS #60 tab 03/22/24 06/16/24 Rx Metoprolol Succinate (ER) [Toprol 12.5 mg PO DAILY #30 tab 05/03/24 06/16/24 Rx XL] Allergies Allergy/AdvReac Type Severity Reaction Status Date / Time losartan Allergy Intermediate Swelling Verified 06/27/24 18:52 Aminoglycosides Allergy Unknown Unknown Verified 06/27/24 18:52 REINIER Inhibitors Allergy Unknown Verified 06/27/24 18:52 enalapril Allergy Swelling Verified 06/27/24 18:52 enalaprilat [From Vasotec] Allergy Swelling Verified 06/27/24 18:52 ibuprofen Allergy Unknown Verified 06/27/24 18:52 lisinopril Allergy Swelling Verified 06/27/24 18:52 vancomycin Allergy Unknown Verified 06/27/24 18:52 vitamin A Allergy Unknown Verified 06/27/24 18:52 gabapentin AdvReac Hallucinati Verified 06/27/24 18:52 ons/Nightma res Physical Exam Vitals: Vital Signs Temp Pulse Resp BP Pulse Ox 06/27/24 22:52 77 18 119/71 97 06/27/24 22:50 78 06/27/24 22:43 77 06/27/24 20:25 80 06/27/24 20:20 79 06/27/24 18:52 20 06/27/24 18:47 99.0 F 75 18 121/106 100 Intake and Output 06/27/24 06/27/24 06/28/24 14:59 22:59 06:59 Other: Weight 77.111 kg GENERAL EXAM: Alert, 78-year-old male, hard of hearing, comfortable in no apparent distress. HEAD: Normocephalic and atraumatic EYES: Normal reaction of pupils, equal size. NOSE: Clear with pink turbinates. THROAT: No erythema or exudates. NECK: No masses, no JVD. CHEST: No chest wall deformity. LUNGS: Equal air entry with diminished bibasilar lung sounds. No crackles, wheeze, rhonchi. On 3 L/min nasal cannula. No conversational dyspnea or accessory muscle use at rest CVS: S1 and S2 normal with grade 3 systolic murmur, regular rhythm. No extra heart sounds ABDOMEN: No hepatosplenomegaly, active bowel sounds, no guarding or rigidity. SPINE: No scoliosis or deformity SKIN: No rashes CENTRAL NERVOUS SYSTEM: No focal deficits, tone is normal in all 4 extremities. EXTREMITIES: There is no peripheral edema, clubbing, or cyanosis. Peripheral pulses are intact. Left arm AV fistula with positive bruit and thrill Results - Laboratory Findings CBC and BMP: 06/27/24 19:33 06/27/24 19:33 PT/INR, D-dimer PT 13.1 sec (10.0-12.5) H 06/27/24 19:33 INR 1.2 (<1.2) H 06/27/24 19:33 Abnormal lab findings: Abnormal Labs 06/27/24 06/27/24 06/27/24 19:33 19:33 19:33 RBC 2.43 L Hgb 8.1 L Hct 24.9 L MCV 102.7 H D RDW 20.5 H Plt Count 116 L D Lymphocytes # 0.8 L PT 13.1 H INR 1.2 H APTT 33.9 H Sodium 134 L Chloride 95 L Carbon Dioxide 31 H BUN 41 H Creatinine 4.36 H Glucose 100 H Calcium 8.3 L Total Bilirubin 1.5 H AST 148 H ALT 76 H Alkaline Phosphatase 236 H Troponin I Total Protein 6.1 L Albumin 2.8 L 06/27/24 19:33 RBC Hgb Hct MCV RDW Plt Count Lymphocytes # PT INR APTT Sodium Chloride Carbon Dioxide BUN Creatinine Glucose Calcium Total Bilirubin AST ALT Alkaline Phosphatase Troponin I 0.440 H* Total Protein Albumin - Diagnostic Findings Chest x-ray: image reviewed Assessment and Plan Assessment: Acute on chronic hypoxemic respiratory failure, currently on 3 L/min nasal cannula; chest x-ray interpreted by me to show cardiomegaly, likely bilateral small pleural effusions, right hilar and upper lobe opacities or asymmetric pulmonary edema. NT proBNP significantly elevated at 123,000. Suspect exacerbation of systolic congestive heart failure, pulmonary edema, fluid overload End-stage renal disease, undergoes hemodialysis on a Friday, , Friday schedule History of renal transplant Anemia of chronic disease, hemoglobin stable at 8.1 g/dL Elevated troponins, rule out non-ST elevation NM History of severe aortic stenosis History of heart failure with reduced ejection fraction, most recent echocardiogram estimating ejection fraction of 30 to 35% Chronic hypoxemic respiratory failure, normally on 2 to 3 L/min nasal cannula 30/12 History of hyperlipidemia History of traumatic fall, resulting in left scapular fracture and acute compression fracture of T9 without retropulsion. Plan: Patient's medications, labs, chest x-ray reviewed Supplemental oxygen to maintain oxygen saturation of 90% or greater, currently on 3 L/min nasal cannula Nephrology consulted for inpatient hemodialysis schedule Patient was restarted on Bumex Empirically covered on a combination of azithromycin and Rocephin Blood cultures pending Urine Legionella antigen to be collected Viral screen negative for influenza, RSV, COVID Will continue to follow, additional recommendations to follow I have personally seen and examined the patient, performed the documentation and the assessment and plan as written. Number of minutes spent on the visit:20 Time with Patient: Greater than 30
[2024-06-28] MEDS: FUROSEMIDE 10 MG/ML 4 ML VIAL IV SCH (05:04)
[2024-06-28] MEDS: SODIUM CHLORIDE 0.9% 1,000 ML IV SCH (05:05)
--- NOTE | 2024-06-28 07:09 | XR ---
EXAMINATION TYPE: XR chest 1V portable DATE OF EXAM: 06/28/2024 COMPARISON: 06/27/2024 CLINICAL INDICATION: Male, 78 years old with history of pneumonia; , TECHNIQUE: XR chest 1V portable views of the chest. FINDINGS: Bilateral consolidation and pleural effusion. Heart is enlarged. No pneumothorax. Arthropathy of the shoulders and diffuse osteopenia. Ectasia and atherosclerotic change aorta. IMPRESSION: 1. Stable diffuse pleural-parenchymal changes correlate for CHF versus diffuse pneumonia. [facility], , 06/28/2024 7:07 AM
[2024-06-28 07:35] LABS: Anisocytosis Slight; Basophils % (A) 1 %; Eosinophils # (A) 0.1 k/uL (0-0.7); Eosinophils % (A) 2 %; HCT 25.2 % (39.0-53.0); HGB 7.8 gm/dL (13.0-17.5); Hypochromasia Marked; Lymphocytes # (A) 0.8 k/uL (1.0-4.8); Lymphocytes % (A) 14 %; MCHC 30.9 g/dL (31.0-37.0); Macrocytosis Marked; Mean Platelet Volume 9.6; Monocytes # (A) 0.4 k/uL (0-1.0); Monocytes % (A) 7 %; Neutrophils % (A) 74 %; RBC 2.36 m/uL (4.30-5.90); RDW 19.7 % (11.5-15.5); WBC 5.4 k/uL (3.8-10.6)
[2024-06-28 08:01] LABS: ALT 79 U/L (4-49); AST 141 U/L (17-59); African American GFR (CKD) 11 (>60 ml/min/1.73 sqM); Albumin 2.7 g/dL (3.5-5.0); Alkaline Phosphatase 237 U/L (38-126); Anion Gap 9 mmol/L; Blood Urea Nitrogen 44 mg/dL (9-20); Calcium 8.1 mg/dL (8.4-10.2); Carbon Dioxide 28 mmol/L (22-30); Chloride 98 mmol/L (98-107); Glucose 88 mg/dL (74-99); Non-African American GFR(CKD) 10 (>60 ml/min/1.73 sqM); Potassium 4.4 mmol/L (3.5-5.1); Sodium 135 mmol/L (137-145); Total Bilirubin 1.1 mg/dL (0.2-1.3); Total Protein 5.9 g/dL (6.3-8.2)
[2024-06-28] MEDS ORDERED: BUMETANIDE 1 MG TAB PO SCH (09:00)
[2024-06-28 09:15] LABS: Platelet Count 93 k/uL (150-450)
[2024-06-28] MEDS: IPRATROPIUM-ALBUTEROL 3 ML NEB INHALATION SCH (10:00)
[2024-06-28] MEDS: HEPARIN SODIUM,PORCINE 5,000 UNIT/ML 1 ML VIAL SQ SCH (10:24)
[2024-06-28] MEDS: CALCIUM ACETATE 667 MG TAB PO SCH (11:58)
[2024-06-28] MEDS: MIDODRINE 5 MG TAB PO SCH (11:58)
--- NOTE | 2024-06-28 12:47 | P.CRDCN ---
History of Present Illness History of present illness: HISTORY OF PRESENT ILLNESS: This is a 78-year-old male with a past medical history significant for coronary artery disease, end-stage renal disease on hemodialysis, cardiomyopathy, and CA D. Patient follows in the office with Dr. Phillips. We have been asked to see the patient in consultation for congestive heart failure and elevated troponins. Patient examined at the bedside in the emergency room. Patient presented to the hospital with a chief complaint of shortness of breath. Patient reports he has been coughing frequently with sputum production. He also states his blood pressure has been running on the lower side. He denied any chest pain or pressure. Patient was found to have bibasilar pneumonia and was started on antibiotics. He continues to have a significant cough with sputum production at the time of examination. It is noted that the patient has severe aortic sten osis. When he was in the office in May 2020 for him and his daughter had a long conversation regarding possible aortic valve replacement and he had decided not to pursue valve replacement at that time. DIAGNOSTICS: - EKG reveals sinus mechanism with frequent PVCs. - Chest xray similar suspected bibasilar pneumonia. - Laboratory data: WBC 5.4. Hemoglobin 7.8. Platelet count 93. Sodium 135. Potassium 4.4. BUN 44. Creatinine 5.08. Troponin 0.440. 0.450. 0.426. proBNP 123,000 - Current home cardiac medications include Lipitor 80 mg at night, Bumex 2 mg daily, midodrine 5 mg 3 times a day. - Most recent echocardiogram obtained in April 2024 revealing ejection fraction 30 to 35%, mild to moderate mitral regurgitation, severe aortic stenosis, severe tricuspid regurgitation, moderate concentric LVH -Patient underwent ATA in April 2024 revealing severe aortic stenosis invol ving tricuspid aortic valve is heavily calcified. Cardiomyopathy with ejection fraction 35% - Cardiac catheterization history: April 2024 revealing calcified coronaries without focal obstructive disease, heavily calcified LAD. There is what appears like a stent in the proximal LAD that is patent. REVIEW OF SYSTEMS: At the time of my exam: CONSTITUTIONAL: Denies fever or chills. HEENT: Denies blurred vision, vision changes, or eye pain. Denies hemoptysis CARDIOVASCULAR: Denies chest pain. Denies orthopnea. Denies PND. Denies palpitations RESPIRATORY: + shortness of breath. GASTROINTESTINAL: Denies abdominal pain. Denies nausea or vomiting. HEMATOLOGIC: Denies bleeding disorders. GENITOURINARY: Denies any blood in urine. SKIN: Denies pruitis. Denies rash. PHYSICAL EXAM: VITAL SIGNS: Reviewed. GENERAL: Well-developed in no acute distress. HEENT: Head is normocephalic. Pupils are equal, round. Sclerae anicteric. Mucous membranes of the mouth are moist. Neck supple. No JVD or thyromegaly LUNGS: Respirations even and unlabored. Lungs diminished with rhonchi bilaterally HEART: Regular rate and rhythm. S1 and S2 heard. Systolic murmur noted. ABDOMEN: Soft. Nondistended. Nontender. EXTREMITIES: Normal range of motion. No clubbing or cyanosis. Peripheral pulses intact. No lower extremity edema NEUROLOGIC: Awake and alert. Oriented x 3. ASSESSMENT: Basilar pneumonia per chest x-ray Acute hypoxic respiratory failure requiring supplemental oxygen Severe aortic stenosis Acute on chronic heart failure with reduced EF Elevated troponins, type II LA, no evidence of acute coronary syndrome End-stage renal disease on hemodialysis Coronary artery disease with previous stenting Ischemic cardiomyopathy PLAN: An acute coronary event has been ruled out No need to repeat echocardiogram Resume home cardiac medications Continue IV diuretics with Lasix 40 mg twice a day Daily weights, accurate intake and output, and monitoring of kidney function Further recommendations pending patient course Nurse practitioner note has been reviewed by physician. Signing provider agrees with the documented findings, assessment, and plan of care documented by INTERNAL RECRUITER as a scribe. 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%, history of renal transplant and 2 in 1992 from a donor and in 1995 from a living donor, history of neck fracture, history of Covid 19 infection, severe aortic stenosis, anemia of chronic disease neuropathy, dialysis Friday History of Any Multi-Drug Resistant Organisms: MRSA Date of last positivie culture/infection: 03/19/24 MDRO Source:: rt knee, blood Past Surgical History: Appendectomy Additional Past Surgical History / Comment(s): Kidney transplant in 07/28/1992 and 1995 and the patient has a fistula in the left upper extremity Past Anesthesia/Blood Transfusion Reactions: No Reported Reaction Past Psychological History: No Psychological Hx Reported Smoking Status: Former smoker Past Alcohol Use History: Rare Additional Past Alcohol Use History / Comment(s): per pt quit smoking ten years ago Past Drug Use History: None Reported - Past Family History Mother Family Medical History: Cancer Additional Family Medical History / Comment(s): Pancreatic cancer. Father Family Medical History: CVA/TIA Additional Family Medical History / Comment(s): of stroke. Medications and Allergies Home Medications Medication Instructions Recorded Confirmed Type rOPINIRole HCL [Requip] 2 mg PO BID@0800,1700 05/01/22 06/28/24 History Calcium Acetate [PhosLo] 2,001 mg PO TID-W/MEALS 08/16/22 06/28/24 History allopurinoL [Zyloprim] 100 mg PO TUTHSA 02/12/23 06/28/24 History Midodrine [ProAmatine] 5 mg PO AC-TID 09/25/23 06/28/24 History PARoxetine [Paxil] 10 mg PO DAILY 03/19/24 06/28/24 History Atorvastatin [Lipitor] 80 mg PO HS #60 tab 03/22/24 06/28/24 Rx Acetaminophen Tab [Tylenol] 650 mg PO Q8HR PRN 06/28/24 06/28/24 History Albuterol Nebulized [Ventolin 2.5 mg INHALATION RT-Q4H PRN 06/28/24 06/28/24 History Nebulized] Bumetanide [Bumex] 2 mg PO DAILY@0600 06/28/24 06/28/24 History Famotidine [Pepcid] 20 mg PO DAILY 06/28/24 06/28/24 History Heparin Sodium,Porcine (1 ml) 5,000 unit SQ Q8HR 06/28/24 06/28/24 History [Heparin Sodium] Magnesium Hydroxide [Milk of 7,200 mg PO DAILY PRN MDD T 06/28/24 06/28/24 History Magnesia Concentrate] Na Phos,M-B/Na Phos,Di-Ba [Fleet 133 ml RECTAL DAILY PRN 06/28/24 06/28/24 History Adult] bisacodyL [Dulcolax] 10 mg RECTAL DAILY PRN 06/28/24 06/28/24 History calcitrioL 0.25 mcg PO BENTON 06/28/24 06/28/24 History Allergies Allergy/AdvReac Type Severity Reaction Status Date / Time losartan Allergy Intermediate Swelling Verified 06/28/24 09:17 Aminoglycosides Allergy Unknown Unknown Verified 06/28/24 09:17 REINIER Inhibitors Allergy Unknown Verified 06/28/24 09:17 enalapril Allergy Swelling Verified 06/28/24 09:17 enalaprilat [From Vasotec] Allergy Swelling Verified 06/28/24 09:17 ibuprofen Allergy Unknown Verified 06/28/24 09:17 lisinopril Allergy Swelling Verified 06/28/24 09:17 vancomycin Allergy Unknown Verified 06/28/24 09:17 vitamin A Allergy Unknown Verified 06/28/24 09:17 gabapentin AdvReac Hallucinati Verified 06/28/24 09:17 ons/Nightma res Physical Exam Vitals: Vital Signs Temp Pulse Resp BP Pulse Ox 06/28/24 10:10 78 06/28/24 10:01 81 06/28/24 10:00 99 06/28/24 08:00 73 17 124/64 99 06/28/24 06:00 66 18 124/70 98 06/28/24 04:00 67 16 114/59 99 06/28/24 02:37 74 20 97 06/27/24 22:52 77 18 119/71 97 06/27/24 22:50 78 06/27/24 22:43 77 06/27/24 20:25 80 06/27/24 20:20 79 06/27/24 18:52 20 06/27/24 18:47 99.0 F 75 18 121/106 100 Intake and Output 06/27/24 06/28/24 06/28/24 22:59 06:59 14:59 Other: Weight 77.111 kg Results 06/28/24 06:42 06/28/24 06:42 Cardiac Enzymes 06/27/24 06/27/24 06/28/24 Range/Units 19:33 19:33 06:42 AST 148 H 141 H (17-59) U/L Troponin I 0.440 H* (0.000-0.034) ng/mL 06/28/24 06/28/24 Range/Units 06:42 11:19 AST (17-59) U/L Troponin I 0.450 H* 0.426 H* (0.000-0.034) ng/mL Coagulation 06/27/24 Range/Units 19:33 PT 13.1 H (10.0-12.5) sec APTT 33.9 H (22.0-30.0) sec CBC 06/27/24 06/28/24 Range/Units 19:33 06:42 WBC 7.5 5.4 (3.8-10.6) k/uL RBC 2.43 L 2.36 L (4.30-5.90) m/uL Hgb 8.1 L 7.8 L (13.0-17.5) gm/dL Hct 24.9 L 25.2 L (39.0-53.0) % Plt Count 116 L D 93 L (150-450) k/uL Comprehensive Metabolic Panel 06/27/24 06/28/24 Range/Units 19:33 06:42 Sodium 134 L 135 L (137-145) mmol/L Potassium 4.7 4.4 (3.5-5.1) mmol/L Chloride 95 L 98 (98-107) mmol/L Carbon Dioxide 31 H 28 (22-30) mmol/L BUN 41 H 44 H (9-20) mg/dL Creatinine 4.36 H 5.08 H (0.66-1.25) mg/dL Glucose 100 H 88 (74-99) mg/dL Calcium 8.3 L 8.1 L (8.4-10.2) mg/dL AST 148 H 141 H (17-59) U/L ALT 76 H 79 H (4-49) U/L Alkaline Phosphatase 236 H 237 H (38-126) U/L Total Protein 6.1 L 5.9 L (6.3-8.2) g/dL Albumin 2.8 L 2.7 L (3.5-5.0) g/dL Current Medications Generic Name Dose Route Start Last Admin Trade Name Freq PRN Reason Stop Dose Admin Acetaminophen 650 mg 06/28/24 11:05 Acetaminophen Tab 325 Mg Tab PO Q8HR PRN Mild Pain (Scale 1 to 3) Albuterol Sulfate 2.5 mg 06/28/24 11:05 Albuterol Nebulized 2.5 Mg/3 Ml INHALATION RT-Q4H PRN Shortness Of Breath Albuterol/Ipratropium 3 ml 06/28/24 08:00 06/28/24 10:00 Ipratropium-Albuterol 3 Ml Neb INHALATION 3 ml RT-Q4H MONY Administration Allopurinol 100 mg 06/29/24 11:05 Allopurinol 100 Mg Tab PO TUTHSA MONY Aspirin 81 mg 06/29/24 09:00 Aspirin 81 Mg PO DAILY MONY Atorvastatin Calcium 80 mg 06/28/24 21:00 Atorvastatin 40 Mg Tab PO HS MONY Bisacodyl 10 mg 06/28/24 11:05 Bisacodyl 10 Mg Supp RECTAL DAILY PRN Constipation Calcitriol 0.25 mcg 07/04/24 11:05 Calcitriol 0.25 Mcg Cap PO BENTON MONY Calcium Acetate 2,001 mg 06/28/24 12:30 06/28/24 11:58 Calcium Acetate 667 Mg Tab PO 2,001 mg TID-W/MEALS MONY Administration Famotidine 20 mg 06/29/24 09:00 Famotidine 20 Mg Tab PO Q48H MONY Furosemide 40 mg 06/28/24 04:34 06/28/24 10:24 Furosemide 10 Mg/Ml 4 Ml Vial IV 40 mg Q12HR MONY Administration Heparin Sodium (Porcine) 5,000 unit 06/28/24 08:00 06/28/24 10:24 Heparin Sodium,Porcine 5,000 Unit/Ml 1 Ml Vial SQ 5,000 unit Q8HR MONY Administration Midodrine 5 mg 06/28/24 12:30 06/28/24 11:58 Midodrine 5 Mg Tab PO 5 mg AC-TID MONY Administration Miscellaneous Information 1 each 06/27/24 21:19 Pneumonia Protocol Utilized 1 Each Misc PO ONCE PRN Per Protocol Oxycodone/Acetaminophen 1 each 06/27/24 22:16 06/27/24 22:52 Oxycodone-Apap 5-325mg 1 Each Tab PO 1 each TID PRN Administration Moderate to Severe Pain (4-10) Paroxetine HCl 10 mg 06/29/24 09:00 Paroxetine 10 Mg Tab PO DAILY [facility] Ropinirole HCl 2 mg 06/28/24 17:00 Ropinirole Hcl 1 Mg Tab PO BID@0800,1700 MONY Intake and Output 06/27/24 06/28/24 06/28/24 22:59 06:59 14:59 Other: Weight 77.111 kg 06/28/24 06:42 06/28/24 06:42
--- NOTE | 2024-06-28 15:52 | P.NPCON ---
History of Present Illness - Reason for Consult end stage renal disease - History of Present Illness Reason for consultation: End-stage renal disease History of present illness: Patient is a 78-year-old male seen in renal consultation for end-stage renal disease. He is maintained on hemodialysis on Friday schedule. Patient came to the hospital due to shortness of breath. Patient is not a very reliable historian. Chest x-ray suggestive of pneumonia versus CHF. He is currently receiving antibiotics and is also getting IV Lasix. Hemodynamically stable. He is on 3 L nasal cannula. Patient does have history of cardiomyopathy with ejection fraction of 30 to 35% with mild to moderate mitral regurgitation and severe aortic stenosis and severe tricuspid regurgitation. Patient denies history of diabetes. Makes little to no urine. He denies cough. Denies vomiting or diarrhea. Vital signs are stable. General: No acute distress. HEENT: Head exam is unremarkable. On nasal cannula. LUNGS: Scattered wheezing. HEART: Rate and Rhythm are regular. ABDOMEN: Nontender. EXTREMITITES: No edema. 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%, history of renal transplant and 2 in 1992 from a donor and in 1995 from a living donor, history of neck fracture, history of Covid 19 infection, severe aortic stenosis, anemia of chronic disease neuropathy, dialysis Friday History of Any Multi-Drug Resistant Organisms: MRSA Date of last positivie culture/infection: 03/19/24 MDRO Source:: rt knee, blood Past Surgical History: Appendectomy Additional Past Surgical History / Comment(s): Kidney transplant in 07/28/1992 and 1995 and the patient has a fistula in the left upper extremity Past Anesthesia/Blood Transfusion Reactions: No Reported Reaction Past Psychological History: No Psychological Hx Reported Smoking Status: Former smoker Past Alcohol Use History: Rare Additional Past Alcohol Use History / Comment(s): per pt quit smoking ten years ago Past Drug Use History: None Reported - Past Family History Mother Family Medical History: Cancer Additional Family Medical History / Comment(s): Pancreatic cancer. Father Family Medical History: CVA/TIA Additional Family Medical History / Comment(s): of stroke. Medications and Allergies Home Medications Medication Instructions Recorded Confirmed Type rOPINIRole HCL [Requip] 2 mg PO BID@0800,1700 05/01/22 06/28/24 History Calcium Acetate [PhosLo] 2,001 mg PO TID-W/MEALS 08/16/22 06/28/24 History allopurinoL [Zyloprim] 100 mg PO TUTHSA 02/12/23 06/28/24 History Midodrine [ProAmatine] 5 mg PO AC-TID 09/25/23 06/28/24 History PARoxetine [Paxil] 10 mg PO DAILY 03/19/24 06/28/24 History Atorvastatin [Lipitor] 80 mg PO HS #60 tab 03/22/24 06/28/24 Rx Acetaminophen Tab [Tylenol] 650 mg PO Q8HR PRN 06/28/24 06/28/24 History Albuterol Nebulized [Ventolin 2.5 mg INHALATION RT-Q4H PRN 06/28/24 06/28/24 History Nebulized] Bumetanide [Bumex] 2 mg PO DAILY@0600 06/28/24 06/28/24 History Famotidine [Pepcid] 20 mg PO DAILY 06/28/24 06/28/24 History Heparin Sodium,Porcine (1 ml) 5,000 unit SQ Q8HR 06/28/24 06/28/24 History [Heparin Sodium] Magnesium Hydroxide [Milk of 7,200 mg PO DAILY PRN MDD T 06/28/24 06/28/24 History Magnesia Concentrate] Na Phos,M-B/Na Phos,Di-Ba [Fleet 133 ml RECTAL DAILY PRN 06/28/24 06/28/24 History Adult] bisacodyL [Dulcolax] 10 mg RECTAL DAILY PRN 06/28/24 06/28/24 History calcitrioL 0.25 mcg PO BENTON 06/28/24 06/28/24 History Allergies Allergy/AdvReac Type Severity Reaction Status Date / Time losartan Allergy Intermediate Swelling Verified 06/28/24 09:17 Aminoglycosides Allergy Unknown Unknown Verified 06/28/24 09:17 REINIER Inhibitors Allergy Unknown Verified 06/28/24 09:17 enalapril Allergy Swelling Verified 06/28/24 09:17 enalaprilat [From Vasotec] Allergy Swelling Verified 06/28/24 09:17 ibuprofen Allergy Unknown Verified 06/28/24 09:17 lisinopril Allergy Swelling Verified 06/28/24 09:17 vancomycin Allergy Unknown Verified 06/28/24 09:17 vitamin A Allergy Unknown Verified 06/28/24 09:17 gabapentin AdvReac Hallucinati Verified 06/28/24 09:17 ons/Nightma res Physical Exam Vitals: Vital Signs Temp Pulse Resp BP Pulse Ox 06/28/24 13:18 78 06/28/24 13:04 76 06/28/24 12:33 74 20 126/88 98 06/28/24 10:10 78 06/28/24 10:01 81 06/28/24 10:00 99 06/28/24 08:00 73 17 124/64 99 06/28/24 06:00 66 18 124/70 98 06/28/24 04:00 67 16 114/59 99 06/28/24 02:37 74 20 97 06/27/24 22:52 77 18 119/71 97 06/27/24 22:50 78 06/27/24 22:43 77 06/27/24 20:25 80 06/27/24 20:20 79 06/27/24 18:52 20 06/27/24 18:47 99.0 F 75 18 121/106 100 Results - Lab Results Most recent lab results Calcium 8.1 mg/dL (8.4-10.2) L 06/28/24 06:42 Magnesium 2.0 mg/dL (1.6-2.3) 06/28/24 06:42 06/28/24 06:42 06/28/24 06:42 Assessment and Plan Plan: Assessment: 1. End-stage renal disease maintained on hemodialysis on Friday schedule via left upper extremity AV fistula. 2. Acute hypoxic respiratory failure. 3. Pneumonia maintained on antibiotics. 4. Fluid overload. 5. Peripheral arterial disease. 6. Anemia of chronic kidney disease. 7. Chronic kidney disease mineral bone disease maintained on calcitriol and PhosLo. 8. Acute on chronic systolic CHF with severe aortic stenosis and pulmonary hypertension. 9. Recent clavicular fracture. Plan: Short hemodialysis today and another treatment tomorrow per his outpatient schedule. Maintain IV Lasix for now. Check iron studies. Follow-up echocardiogram. Thank you for the consultation. I will continue to follow the patient with you during his hospital stay.
--- NOTE | 2024-06-28 17:10 | CA ---
Transthoracic Echo Report Name: John Benedict Age: 78 Gender: M : 1945 Exam Date: 06/28/2024 11:57 Exam Location: [facility] Ht (in): 72 Wt (lb): 170 Ordering Physician: Do Espino MD Attending/Referring Phys: Security Public Safety Officer Sahara Barrera RDCS Procedure CPT: Indications: LV function Cardiac Hx: Technical Quality: Good Contrast 1: Total Dose (mL): Contrast 2: Total Dose (mL): MEASUREMENTS (Male / Female) Normal Values 2D ECHO LV Diastolic Diameter PLAX 5.2 cm 4.2 - 5.9 / 3.9 - 5.3 cm LV Systolic Diameter PLAX 4.4 cm IVS Diastolic Thickness 1.5 cm 0.6 - 1.0 / 0.6 - 0.9 cm LVPW Diastolic Thickness 1.4 cm 0.6 - 1.0 / 0.6 - 0.9 cm LV Relative Wall Thickness 0.6 RV Internal Dim ED PLAX 3.8 cm LVOT Diameter 2.1 cm LA Systolic Diameter LX 4.7 cm 3.0 - 4.0 / 2.7 - 3.8 cm LV Diastolic Volume MOD BP 211.9 cm??? 67 - 155 / 56 - 104 cm??? LV Systolic Volume MOD BP 142.0 cm??? - 58 / 19 - 49 cm??? LV Ejection Fraction MOD BP 33.0 % >= 55 % LV Cardiac Index MOD BP 2328.8 cm???/min???m??? LV Diastolic Volume MOD 4C 186.3 cm??? LV Systolic Volume MOD 4C 115.6 cm??? LV Ejection Fraction MOD 4C 37.9 % LV Cardiac Index MOD 4C 2356.4 cm???/min???m??? LV Diastolic Length 4C 8.8 cm LV Systolic Length 4C 7.5 cm LV Diastolic Volume MOD 2C 213.9 cm??? LV Systolic Volume MOD 2C 146.6 cm??? LV Ejection Fraction MOD 2C 31.4 % LV Cardiac Index MOD 2C 2242.3 cm???/min???m??? LV Diastolic Length 2C 10.0 cm LV Systolic Length 2C 9.0 cm LA Volume 75.3 cm??? 18 - 58 / 22 - 52 cm??? LA Volume Index 38.0 cm???/m??? 16 - 28 cm???/m??? DOPPLER AV Peak Velocity 350.7 cm/s AV Peak Gradient 49.2 mmHg AV Mean Velocity 236.9 cm/s AV Mean Gradient 25.6 mmHg AV Velocity Time Integral 78.7 cm AI Peak Velocity 266.2 cm/s AI Peak Gradient 28.3 mmHg AI Pressure Half Time 469.1 ms LVOT Peak Velocity 279.1 cm/s LVOT Peak Gradient 31.2 mmHg LVOT Velocity Time Integral 63.0 cm LVOT Stroke Volume 227.6 cm??? LVOT Stroke Volume Index 114.5 ml/m??? LVOT Cardiac Index 7588.6 cm???/min???m??? AV Area Cont Eq vti 2.9 cm??? AV Area Cont Eq pk 2.9 cm??? MV Area PHT 3.5 cm??? Mitral E Point Velocity 137.4 cm/s Mitral A Point Velocity 81.4 cm/s Mitral E to A Ratio 1.7 MV Deceleration Time 217.3 ms TR Peak Velocity 334.7 cm/s TR Peak Gradient 44.8 mmHg Right Ventricular Systolic Press 48.5 mmHg FINDINGS Left Ventricle Left ventricular ejection fraction is estimated at 35-40 %. Left ventricular cavity size normal. Moderately increased septal wall thickness. Severely increased left ventricular diastolic volume. Severely increased left ventricular systolic volume. Moderately decreased left ventricular ejection fraction. Right Ventricle Moderate right ventricular dilatation. Moderate pulmonary hypertension. Right Atrium Moderate right atrial dilatation. No right atrial thrombus or mass seen. Left Atrium Moderately increased left atrial diameter. Moderately increased left atrial volume. Mildly increased left atrial area. No left atrial thrombus or mass present. Mitral Valve Mitral valve thickened. Mild mitral annular calcification. Mild mitral regurgitation. Aortic Valve Trileaflet aortic valve. Aortic valve sclerosis. Moderate aortic stenosis with a peak gradient of 49 mmHg and a mean gradient of 26 mmHg. Mild aortic regurgitation. Tricuspid Valve Structurally normal tricuspid valve. [id number] tricuspid regurgitation. Pulmonic Valve Structurally normal pulmonic valve. [id number] pulmonic regurgitation. Pericardium No pericardial effusion. Pleural effusion. Aorta Normal size aortic root and proximal ascending aorta. CONCLUSIONS Left ventricular ejection fraction 35-40% Moderately increased left ventricular wall thickness RVSP 48 Moderate biatrial enlargement Mild mitral regurgitation At least moderate aortic stenosis with concern of low flow low gradient aortic stenosis. Consider ATA if clinically indicated Mild to moderate tricuspid regurgitation No pericardial effusion Previewed by: Dr. Galo Chow DO (Electronically Signed) Final Date: 28 June 2024 17:09
[2024-06-28 19:55] LABS: % Iron Saturation 19.89 (15.00-50.00)
[2024-06-28] MEDS ORDERED: AZITHROMYCIN 500 MG in SODIUM CHLORIDE 0.9% 250 ML IVPB SCH (21:00)
[2024-06-28] MEDS: ATORVASTATIN 40 MG TAB PO SCH (21:05)
[2024-06-28] MEDS: AZITHROMYCIN 500 MG TAB PO SCH (21:06)
[2024-06-29] MEDS: SODIUM CHLORIDE 0.9% 500 ML 500 ML IV ONE (07:47)
[2024-06-29] MEDS: PARoxetine 10 MG TAB PO SCH (08:47)
[2024-06-29] MEDS: ASPIRIN 81 MG PO SCH (08:49)
[2024-06-29] MEDS: FAMOTIDINE 20 MG TAB PO SCH (08:49)
[2024-06-29] MEDS: allopurinoL 100 MG TAB PO SCH (11:18)
--- NOTE | 2024-06-29 11:28 | P.PN ---
Subjective Progress Note Date: 06/29/24 Patient is an 78-year-old male with past medical history of ESRD status post kidney transplant on hemodialysis, dyslipidemia, severe aortic stenosis, HFrEF EF 30 to 35%, severe pulmonary hypertension who presents to the ED shortness of breath. Per ED note patient is a poor historian, presented with shortness of breath, chest pain and pain with inspiration. At the time of my assessment patient was confused and was not able to provide much history. He could not recall why he was at the hospital. He did report mild shortness of breath at the time of interview but had no additional complaints. He denied experiencing chest discomfort, shortness of breath, cough, nausea, vomiting, abdominal pain, diarrhea. Of note the patient was recently admitted for clavicular fracture and discharged 1 week ago. 06/29/2024 Patient seen and examined at bedside. No events overnight. He states that his shortness of breath is improving. He is to have dialysis today. Review of systems: Pertinent positives and negatives as discussed in HPI, a complete review of systems was performed and all other systems are negative. Physical examination: Vital signs reviewed General: nontoxic, no distress, appears at stated age, hard of hearing Derm: warm, dry, intact, large hematoma noted on left chest Head: atraumatic, normocephalic, symmetric Eyes: Did not assess Mouth: no lip lesion, mucus membranes moist Cardiovascular: S1 S2 reg, systolic ejection murmur loudest at RUSB Lungs: Wheeze bilaterally Abdominal: soft, non-tender to palpation, nondistended Extremities: No cyanosis, clubbing, or pedal edema. Psych: well appearing, appropriate affect Neuro: Alert and oriented, no gross focal deficits noted on neurological examination Today's findings: Labs are still pending will assess when available Echocardiogram with LVEF of 35 to 40%, moderate biatrial enlargement, moderate aortic stenosis. Assessment/Plan: Patient is a 78-year-old male with past medical history of ESRD on hemodialysis, dyslipidemia, aortic stenosis, HFrEF, severe pulmonary hypertension who presented with shortness of breath. Case was discussed with the ED physician and patient will be admitted to internal medicine service for further evaluation. Acute on chronic hypoxic respiratory failure, suspect multifactorial in setting of fluid overload secondary to ESRD and systolic CHF exacerbation (HFrEF 30 to 35%), unable to rule out community-acquired pneumonia Severe aortic stenosis Initial CXR shows suspected bibasilar opacities NT proBNP 123,000 Continue Lasix 40 mg every 12 hours Procalcitonin 0.91 Continue azithromycin 500 mg daily and ceftriaxone 2 g daily Continue bronchodilators Cardiac monitoring and supplemental oxygen as needed. Baseline O2 2 to 3 L. Will have hemodialysis today. Schedule of Friday, , Friday. Nephrology following for hemodialysis, note reviewed Cardiology following, note reviewed Pulmonology following, note reviewed NSTEMI type II, possibly secondary to ESRD with CHF exacerbation ACS ruled out by cardiology Peak troponin 0.450, now downtrending Cardiac telemetry Cardiology following Anemia of chronic disease Hemoglobin of 8.1 Continue to monitor Transfuse if less than 7 Transaminitis AST 148, ALT 76, ALP 236. Continue to monitor Chronic: Gout Hold allopurinol Dyslipidemia Continue Lipitor 80 mg p.o. at bedtime F: P.o. E: Replete as needed N: Heart healthy A: Fall precautions DVT prophylaxis: Heparin 5000 units subcu every 8 hours CODE STATUS: FULL code Discussed with: Patient Anticipated discharge place: Pending clinical course I have seen and evaluated the patient today. Discussed with the resident and agree with the residents finding and plan as documented in the resident's note. Changes highlighted in blue font. Objective - Vital Signs Vital signs: Vital Signs Temp 98.3 F 06/29/24 08:40 Pulse 102 H 06/29/24 08:40 Resp 24 06/29/24 08:40 BP 111/63 06/29/24 08:40 Pulse Ox 100 06/29/24 08:40 FiO2 - Labs CBC & Chem 7: 06/29/24 11:30 06/29/24 11:30 Labs: Abnormal Lab Results - Last 24 Hours (Table) 06/28/24 06/28/24 Range/Units 11:19 11:19 Iron 37 L (65-175) UG/DL TIBC 186 L (228-460) UG/DL Transferrin 133.0 L (204.0-354.0) mg/dL Ferritin 1394.0 H (22.0-322.0) ng/mL Troponin I 0.426 H* (0.000-0.034) ng/mL
--- NOTE | 2024-06-29 12:01 | P.PN ---
Subjective HISTORY OF PRESENT ILLNESS: This is a 78-year-old male with a past medical history significant for coronary artery disease, end-stage renal disease on hemodialysis, cardiomyopathy, and CAD. Patient follows in the office with Dr. Phillips. We have been asked to see the patient in consultation for congestive heart failure and elevated troponins. Eduardo baker examined at the bedside in the emergency room. Patient presented to the hospital with a chief complaint of shortness of breath. Patient reports he has been coughing frequently with sputum production. He also states his blood pressure has been running on the lower side. He denied any chest pain or pressure. Patient was found to have bibasilar pneumonia and was started on antibiotics. He continues to have a significant cough with sputum production at the time of examination. It is noted that the patient has severe aortic stenosis. When he was in the office in May 2020 for him and his daughter had a long conversation regarding possible aortic valve replacement and he had decided not to pursue valve replacement at that time. DIAGNOSTICS: - EKG reveals sinus mechanism with frequent PVCs. - Chest xray similar suspected bibasilar pneumonia. - Laboratory data: WBC 5.4. Hemoglobin 7.8. Platelet count 93. Sodium 135. Potassium 4.4. BUN 44. Creatinine 5.08. Troponin 0.440. 0.450. 0.426. proBNP 123,000 - Current home cardiac medications include Lipitor 80 mg at night, Bumex 2 mg daily, midodrine 5 mg 3 times a day. - Most recent echocardiogram obtained in April 2024 revealing ejection fraction 30 to 35%, mild to moderate mitral regurgitation, severe aortic st enosis, severe tricuspid regurgitation, moderate concentric LVH -Patient underwent ATA in April 2024 revealing severe aortic stenosis involving tricuspid aortic valve is heavily calcified. Cardiomyopathy with ejection fraction 35% - Cardiac catheterization history: April 2024 revealing calcified coronaries without focal obstructive disease, heavily calcified LAD. There is what appears like a stent in the proximal LAD that is patent. 06/29/2024 Patient examined this morning in the emergency room. Patient currently denies chest pain or pressure. He reports improvement in his shortness of breath. He also reports improvement in his cough. Bedside telemetry reveals sinus tachycardia. Blood pressure 111/63. PHYSICAL EXAM: VITAL SIGNS: Reviewed. GENERAL: Well-developed in no acute distress. HEENT: Head is normocephalic. Pupils are equal, round. Sclerae anicteric. Mucous membranes of the mouth are moist. Neck supple. No JVD or thyromegaly LUNGS: Respirations even and unlabored. Lungs diminished with rhonchi bilaterally HEART: Mildly tachycardic. Regular rate and rhythm. S1 and S2 heard. Systolic murmur noted. ABDOMEN: Soft. Nondistended. Nontender. EXTREMITIES: Normal range of motion. No clubbing or cyanosis. Peripheral pulses intact. No lower extremity edema NEUROLOGIC: Awake and alert. Oriented x 3. ASSESSMENT: Basilar pneumonia per chest x-ray Acute hypoxic respiratory failure requiring supplemental oxygen Severe aortic stenosis Acute on chronic heart failure with reduced EF Elevated troponins, type II AK, no evidence of acute coronary syndrome End-stage renal disease on hemodialysis Coronary artery disease with previous stenting Ischemic cardiomyopathy PLAN: An acute coronary event has been ruled out No need to repeat echocardiogram Continue current cardiac medications Add metoprolol tartrate 25 mg twice a day Continue telemetry monitoring Continue IV diuretics with Lasix 40 mg twice a day Daily weights, accurate intake and output, and monitoring of kidney function Further recommendations pending patient course Nurse practitioner note has been reviewed by physician. Signing provider agrees with the documented findings, assessment, and plan of care documented by [employer] as a scribe. Objective - Vital Signs Vital signs: Vital Signs Temp 98.3 F 06/29/24 08:40 Pulse 87 06/29/24 11:48 Resp 22 06/29/24 11:48 BP 111/63 06/29/24 08:40 Pulse Ox 100 06/29/24 08:40 FiO2 - Labs CBC & Chem 7: 06/28/24 06:42 06/28/24 06:42 Labs: Abnormal Lab Results - Last 24 Hours (Table) 06/28/24 06/28/24 Range/Units 11:19 11:19 Iron 37 L (65-175) UG/DL TIBC 186 L (228-460) UG/DL Transferrin 133.0 L (204.0-354.0) mg/dL Ferritin 1394.0 H (22.0-322.0) ng/mL Troponin I 0.426 H* (0.000-0.034) ng/mL
[2024-06-29] MEDS: METOPROLOL TARTRATE 25 MG TAB PO SCH (12:22)
[2024-06-29 12:39] LABS: ALT 99 U/L (4-49); AST 180 U/L (17-59); African American GFR (CKD) 8 (>60 ml/min/1.73 sqM); Albumin 3.1 g/dL (3.5-5.0); Alkaline Phosphatase 255 U/L (38-126); Anion Gap 13 mmol/L; Blood Urea Nitrogen 59 mg/dL (9-20); Calcium 8.2 mg/dL (8.4-10.2); Carbon Dioxide 27 mmol/L (22-30); Chloride 95 mmol/L (98-107); Glucose 93 mg/dL (74-99); Non-African American GFR(CKD) 7 (>60 ml/min/1.73 sqM); Potassium 5.3 mmol/L (3.5-5.1); Sodium 135 mmol/L (137-145); Total Bilirubin 1.2 mg/dL (0.2-1.3); Total Protein 6.5 g/dL (6.3-8.2)
[2024-06-29 12:53] LABS: Anisocytosis Moderate; Basophils # (A) 0.1 k/uL (0-0.2); Basophils % (A) 1 %; Eosinophils # (A) 0.1 k/uL (0-0.7); Eosinophils % (A) 2 %; HCT 26.6 % (39.0-53.0); HGB 8.6 gm/dL (13.0-17.5); Hypochromasia Moderate; Lymphocytes # (A) 0.5 k/uL (1.0-4.8); Lymphocytes % (A) 7 %; MCH 34.2 pg (25.0-35.0); MCHC 32.3 g/dL (31.0-37.0); MCV 105.9 fL (80.0-100.0); Macrocytosis Marked; Mean Platelet Volume 9.8; Monocytes # (A) 0.5 k/uL (0-1.0); Monocytes % (A) 6 %; Neutrophils # (A) 6.6 k/uL (1.3-7.7); Neutrophils % (A) 83 %; Platelet Count 124 k/uL (150-450); RBC 2.52 m/uL (4.30-5.90); RDW 20.7 % (11.5-15.5)
--- NOTE | 2024-06-29 15:19 | P.PN ---
Subjective Progress Note Date: 06/29/24 Principal diagnosis: Shortness of breath. Patient is a 78-year-old male with past medical history significant for severe aortic stenosis, congestive heart failure, kidney transplant, end-stage renal disease, and recent fall resulting in left scapular fracture. PCP is Dr. Pereira. He presented emergency department yesterday evening, reportedly with a chief complaint of short of breath. He is hard of hearing, making difficult to communicate. When asked about his shortness of breath, he states that has been ongoing for almost a year. He is chronically oxygen pendant on 2 to 3 L/min nasal cannula while at home. He is currently residing at [facility] for rehab after a fall resulting in a left scapular fracture and T9 compression fracture on June 16. He was transferred to [facility] as the patient was felt to be high surgical risk. Patient states that they could not do anything for him there. He believes the reason he was sent in from [facility] was for low blood pressures. CBC: WBC count 7.5, hemoglobin 8.1, hematocrit 24.9, platelets 116. CMP: Sodium 134, potassium 4.7, chloride 95, serum bicarb 31, BUN 41, creatinine 4.36, glucose 100. Lactic 1.8. LFTs mildly elevated. Troponin 0.44. NT proBNP 123,000. EKG: Normal sinus rhythm, rate 82 bpm, interventricular conduction delay, with frequent PVCs. Patient states that his dyspnea is chronic in nature. He is currently resting in bed on 3 L/min nasal cannula which she states he wears at home. Chest x-ray interpreted by me to show cardiomegaly, likely bilateral small pleural effusions, right hilar and upper lobe opacities or asymmetric pulmonary edema. Patient is currently being evaluated in the emergency department. Patient denies any weight gain or lower extremity swelling. Known to have end-stage renal disease and undergoes hemodialysis on a Friday, , Friday schedule. Denies missing any treatments. States he does not make urine, but does take Bumex on outpatient basis. He is also known to have severe aortic valve stenosis and cardiomyopathy. Most recent echocardiogram from April, estimating ejection fraction of 30 to 35%, as well as, grade 3 diastolic dysfunction, severe pulmonary hypertension with a mean gradient of 71 mmHg, as well as, severe aortic stenosis with mean gradient 38 mmHg. He denies any infectious- like symptoms such as fevers, chills, chest pain, change in his chronic cough, purulent sputum production. Does endorse an occasional cough with clear sputum. Viral screen negative for influenza, RSV, COVID. Current most recent vitals: Temperature 99 F, heart rate 77 bpm, blood pressure 119/71 mmHg, nontachypneic, SpO2 97% on 3 L/min nasal cannula. Nontoxic appearance. Progress note dated June 29, 2024. 78-year-old male seen today again in the emergency department, room 26. His procalcitonin was a bit elevated at 0.91. He is on 4 L of oxygen. He is receiving azithromycin, and Rocephin. His ejection fraction was 35 to 40%. The patient is being treated for a combination of both heart failure, systolic in nature, and possible pneumonia. Clinically, he looks better today. He is sitting in a chair next to his hospital bed. Current labs include a white count 8, hemoglobin 8.6, hematocrit 26.6, and a platelet count of 124,000. Sodium 135, potassium 5.3, chlorides 95, CO2 27, BUN 59, creatinine 6.68. Calcium is 8.2. Albumin is 3.1. Viral studies were negative. Blood and sputum cultures are currently pending. Objective - Vital Signs Vital signs: Vital Signs Temp 98.3 F 06/29/24 08:40 Pulse 69 06/29/24 14:57 Resp 21 06/29/24 14:57 BP 96/63 06/29/24 14:57 Pulse Ox 99 06/29/24 14:57 FiO2 - Exam No acute distress, oriented 3. Very hard of hearing. Currently on 4 L. HEENT examination is grossly unremarkable. Mucous membranes are moist. No oral lesions. Neck supple. Full range of motion. No adenopathy thyromegaly or neck vein distention. Cardiovascular examination reveals regular rhythm rate. S1-S2 normal. No S3 or S4. Soft systolic murmur is noted. Heart sounds are distant. Lungs reveal bibasilar crackles, and diffuse rhonchi. Breath sounds are equal. No wheezes. Abdomen soft bowel sounds are heard. No masses or tenderness. Extremities are intact. No cyanosis clubbing or edema. Skin is without rash or lesion. Neurologic examination is brief but nonfocal. - Labs CBC & Chem 7: 06/29/24 11:30 06/29/24 11:30 Labs: Abnormal Lab Results - Last 24 Hours (Table) 06/28/24 06/29/24 06/29/24 Range/Units 11:19 11:30 11:30 RBC 2.52 L (4.30-5.90) m/uL Hgb 8.6 L (13.0-17.5) gm/dL Hct 26.6 L (39.0-53.0) % MCV 105.9 H (80.0-100.0) fL RDW 20.7 H (11.5-15.5) % Plt Count 124 L (150-450) k/uL Lymphocytes # 0.5 L (1.0-4.8) k/uL Macrocytosis Marked A Sodium 135 L (137-145) mmol/L Potassium 5.3 H (3.5-5.1) mmol/L Chloride 95 L (98-107) mmol/L BUN 59 H (9-20) mg/dL Creatinine 6.68 H (0.66-1.25) mg/dL Calcium 8.2 L (8.4-10.2) mg/dL Iron 37 L (65-175) UG/DL TIBC 186 L (228-460) UG/DL Transferrin 133.0 L (204.0-354.0) mg/dL Ferritin 1394.0 H (22.0-322.0) ng/mL AST 180 H (17-59) U/L ALT 99 H (4-49) U/L Alkaline Phosphatase 255 H (38-126) U/L Albumin 3.1 L (3.5-5.0) g/dL Microbiology - Last 24 Hours (Table) 06/27/24 22:07 Blood Culture - Preliminary Blood 06/28/24 18:33 Gram Stain - Preliminary Sputum Assessment and Plan Assessment: Acute on chronic hypoxemic respiratory failure, currently on 3 L/min nasal cannula; chest x-ray interpreted by me to show cardiomegaly, likely bilateral small pleural effusions, right hilar and upper lobe opacities or asymmetric pulmonary edema. NT proBNP significantly elevated at 123,000. Suspect exacerbation of systolic congestive heart failure. End-stage renal disease, undergoes hemodialysis on a Friday, , Friday schedule. History of renal transplant. Anemia of chronic disease, hemoglobin stable at 8.1 g/dL. Elevated troponins, rule out non-ST elevation ND. History of severe aortic stenosis. History of heart failure with reduced ejection fraction. Chronic hypoxemic respiratory failure, normally on 2 to 3 L/min nasal cannula 30/12. History of hyperlipidemia. History of traumatic fall, resulting in left scapular fracture and acute compression fracture of T9 without retropulsion. Plan: Plan dated June 29, 2024. The patient is seen today in room 26, in the emergency department. He appears t o be doing a bit better today than yesterday. He is sitting in a chair next to the hospital bed. He is currently on 4 L of oxygen. His ejection fraction is quite low. He is on azithromycin and Rocephin for presumed pneumonia. His procalcitonin level was a bit elevated at 0.91. Labs, x-rays, and medications are reviewed. We will continue to follow make recommendations where appropriate. Prognosis is guarded. The patient is extremely hard of hearing. Time with Patient: Less than 30
[2024-06-29] MEDS: ALBUTEROL NEBULIZED 2.5 MG/3 ML INHALATION PRN (15:46)
[2024-06-29] MEDS: MELATONIN 5 MG TABLET PO PRN (21:48)
[2024-06-30 03:14] LABS: Hepatitis B Surface Antigen Nonreactive (Nonreactive)
[2024-06-30 03:22] LABS: Hepatitis B Surface AB- Quant 3.5 mIU/mL
[2024-06-30 07:14] LABS: Anisocytosis Moderate; Basophils # (A) 0.1 k/uL (0-0.2); Basophils % (A) 1 %; Eosinophils # (A) 0.2 k/uL (0-0.7); Eosinophils % (A) 3 %; HCT 26.4 % (39.0-53.0); HGB 8.2 gm/dL (13.0-17.5); Hypochromasia Marked; Lymphocytes # (A) 0.6 k/uL (1.0-4.8); Lymphocytes % (A) 9 %; MCV 106.6 fL (80.0-100.0); Macrocytosis Marked; Mean Platelet Volume 9.9; Monocytes # (A) 0.4 k/uL (0-1.0); Monocytes % (A) 6 %; Neutrophils # (A) 5.1 k/uL (1.3-7.7); Neutrophils % (A) 79 %; Platelet Count 104 k/uL (150-450); RBC 2.48 m/uL (4.30-5.90); RDW 20.8 % (11.5-15.5); WBC 6.5 k/uL (3.8-10.6)
[2024-06-30 07:27] LABS: ALT 104 U/L (4-49); AST 193 U/L (17-59); African American GFR (CKD) 15 (>60 ml/min/1.73 sqM); Albumin 2.8 g/dL (3.5-5.0); Alkaline Phosphatase 234 U/L (38-126); Anion Gap 7 mmol/L; Blood Urea Nitrogen 34 mg/dL (9-20); Carbon Dioxide 29 mmol/L (22-30); Chloride 94 mmol/L (98-107); Glucose 86 mg/dL (74-99); Non-African American GFR(CKD) 13 (>60 ml/min/1.73 sqM); Potassium 4.6 mmol/L (3.5-5.1); Sodium 130 mmol/L (137-145); Total Bilirubin 1.1 mg/dL (0.2-1.3); Total Protein 6.1 g/dL (6.3-8.2)
[2024-06-30] MEDS ORDERED: MIDODRINE 5 MG TAB PO SCH ×2 (07:30→12:30)
[2024-06-30] MEDS: MIDODRINE 5 MG TAB PO ONE (09:17)
--- NOTE | 2024-06-30 11:43 | P.PN ---
Subjective Progress Note Date: 06/30/24 Patient is an 78-year-old male with past medical history of ESRD status post kidney transplant on hemodialysis, dyslipidemia, severe aortic stenosis, HFrEF EF 30 to 35%, severe pulmonary hypertension who presents to the ED shortness of breath. Per ED note patient is a poor historian, presented with shortness of breath, chest pain and pain with inspiration. At the time of my assessment patient was confused and was not able to provide much history. He could not recall why he was at the hospital. He did report mild shortness of breath at the time of interview but had no additional complaints. He denied experiencing chest discomfort, shortness of breath, cough, nausea, vomiting, abdominal pain, diarrhea. Of note the patient was recently admitted for clavicular fracture and discharged 1 week ago. 06/29/2024 Patient seen and examined at bedside. No events overnight. He states that his shortness of breath is improving. He is to have dialysis today. 06/30/2024 Patient seen and examined at bedside. Hemodialysis yesterday with 2 L taken off. He was relatively hypotensive but remains asymptomatic. Shortness of breath improving. Review of systems: Pertinent positives and negatives as discussed in HPI, a complete review of systems was performed and all other systems are negative. Physical examination: Vital signs reviewed General: Lethargic, appears at stated age, hard of hearing Derm: warm, dry, intact, large hematoma noted on left chest Head: atraumatic, normocephalic, symmetric Eyes: Did not assess Mouth: no lip lesion, mucus membranes moist Cardiovascular: S1 S2 reg, systolic ejection murmur loudest at RUSB Lungs: Wheeze bilaterally R>L Abdominal: soft, non-tender to palpation, nondistended Extremities: No cyanosis, clubbing, or pedal edema. Psych: well appearing, appropriate affect Neuro: Alert and oriented, no gross focal deficits noted on neurological examination Today's findings: Labs WBC 6.5, hemoglobin 8.2, MCV 106.6, platelets 104, sodium 130, potassium 4.6, BUN 34, creatinine 4.03, AST 193, ALT 104, ALP 234 Abdominal RUQ US concerning for cholecystitis Assessment/Plan: Patient is a 78-year-old male with past medical history of ESRD on hemodialysis, dyslipidemia, aortic stenosis, HFrEF, severe pulmonary hypertension who presented with shortness of breath. Case was discussed with the ED physician and patient will be admitted to internal medicine service for further evaluation. Acute on chronic hypoxic respiratory failure, suspect multifactorial in setting of fluid overload secondary to ESRD and systolic CHF exacerbation (HFrEF 30 to 35%), unable to rule out community-acquired pneumonia Hypotension Severe aortic stenosis Generalized weakness Initial CXR shows suspected bibasilar opacities NT proBNP 123,000 Continue Lasix 40 mg every 12 hours, monitor electrolytes Begin metoprolol tartrate 25 mg twice daily Procalcitonin 0.91 Distress. Azithromycin 500 mg daily and continue IV ceftriaxone 2 g daily Continue bronchodilators Cardiac monitoring and supplemental oxygen as needed. Baseline O2 2 to 3 L. Hemodialysis schedule of Friday, , Friday. Midodrine increased to 10 3 times daily PT OT consulted Nephrology following for hemodialysis Cardiology following Pulmonology following Possible cholecystitis Transaminitis Initial AST 148, ALT 76, ALP 236. Continue to monitor LFTs -General Surgery consulted, also added IV Flagyl 500 every 8 hours Anemia of chronic disease Hemoglobin of 8.1 Continue to monitor Transfuse if less than 7 NSTEMI type II, possibly secondary to ESRD with CHF exacerbation ACS ruled out by cardiology Peak troponin 0.450, down trended Cardiac telemetry Cardiology following Chronic: Gout allopurinol Dyslipidemia Continue Lipitor 80 mg p.o. at bedtime F: P.o. E: Replete as needed N: Heart healthy A: Fall precautions, PT OT assessment DVT prophylaxis: Heparin 5000 units subcu every 8 hours CODE STATUS: FULL code Discussed with: Patient Anticipated discharge place: Pending clinical course Patient is severely ill, prognosis guarded. I have seen and evaluated the patient today. Discussed with the resident and agree with the residents finding and plan as documented in the resident's note. Changes highlighted in blue font. Objective - Vital Signs Vital signs: Vital Signs Temp 97.6 F 06/29/24 20:30 Pulse 62 06/30/24 04:34 Resp 18 06/30/24 04:34 BP 84/51 06/30/24 04:34 Pulse Ox 100 06/30/24 04:34 FiO2 Intake & Output 06/29/24 06/30/24 06/30/24 18:59 06:59 18:59 Intake Total 400 Output Total 4400 Balance -4000 Weight 77.111 kg Intake: Hemodialysis 400 Output: Hemodialysis 2400 Hemodialysis Net Amount 2000 Other: Voiding Method Diaper - Labs CBC & Chem 7: 06/30/24 06:43 06/30/24 06:43 Labs: Abnormal Lab Results - Last 24 Hours (Table) 06/29/24 06/29/24 06/30/24 Range/Units 11:30 11:30 06:43 RBC 2.52 L 2.48 L (4.30-5.90) m/uL Hgb 8.6 L 8.2 L (13.0-17.5) gm/dL Hct 26.6 L 26.4 L (39.0-53.0) % MCV 105.9 H 106.6 H (80.0-100.0) fL RDW 20.7 H 20.8 H (11.5-15.5) % Plt Count 124 L 104 L (150-450) k/uL Lymphocytes # 0.5 L 0.6 L (1.0-4.8) k/uL Macrocytosis Marked A Marked A Sodium 135 L (137-145) mmol/L Potassium 5.3 H (3.5-5.1) mmol/L Chloride 95 L (98-107) mmol/L BUN 59 H (9-20) mg/dL Creatinine 6.68 H (0.66-1.25) mg/dL Calcium 8.2 L (8.4-10.2) mg/dL AST 180 H (17-59) U/L ALT 99 H (4-49) U/L Alkaline Phosphatase 255 H (38-126) U/L Total Protein (6.3-8.2) g/dL Albumin 3.1 L (3.5-5.0) g/dL 06/30/24 Range/Units 06:43 RBC (4.30-5.90) m/uL Hgb (13.0-17.5) gm/dL Hct (39.0-53.0) % MCV (80.0-100.0) fL RDW (11.5-15.5) % Plt Count (150-450) k/uL Lymphocytes # (1.0-4.8) k/uL Macrocytosis Sodium 130 L (137-145) mmol/L Potassium (3.5-5.1) mmol/L Chloride 94 L (98-107) mmol/L BUN 34 H (9-20) mg/dL Creatinine 4.03 H (0.66-1.25) mg/dL Calcium 8.0 L (8.4-10.2) mg/dL AST 193 H (17-59) U/L ALT 104 H (4-49) U/L Alkaline Phosphatase 234 H (38-126) U/L Total Protein 6.1 L (6.3-8.2) g/dL Albumin 2.8 L (3.5-5.0) g/dL Microbiology - Last 24 Hours (Table) 06/27/24 22:07 Blood Culture - Preliminary Blood 06/28/24 18:33 Gram Stain - Preliminary Sputum
[2024-06-30] MEDS: MIDODRINE 5 MG TAB PO SCH (12:13)
--- NOTE | 2024-06-30 13:21 | P.PN ---
Subjective Progress Note Date: 06/30/24 Principal diagnosis: Shortness of breath. Patient is a 78-year-old male with past medical history significant for severe aortic stenosis, congestive heart failure, kidney transplant, end-stage renal disease, and recent fall resulting in left scapular fracture. PCP is Dr. Pereira. He presented emergency department yesterday evening, reportedly with a chief complaint of short of breath. He is hard of hearing, making difficult to communicate. When asked about his shortness of breath, he states that has been ongoing for almost a year. He is chronically oxygen pendant on 2 to 3 L/min nasal cannula while at home. He is currently residing at [facility] for rehab after a fall resulting in a left scapular fracture and T9 compression fracture on June 16. He was transferred to [facility] as the patient was felt to be high surgical risk. Patient states that they could not do anything for him there. He believes the reason he was sent in from [facility] was for low blood pressures. CBC: WBC count 7.5, hemoglobin 8.1, hematocrit 24.9, platelets 116. CMP: Sodium 134, potassium 4.7, chloride 95, serum bicarb 31, BUN 41, creatinine 4.36, glucose 100. Lactic 1.8. LFTs mildly elevated. Troponin 0.44. NT proBNP 123,000. EKG: Normal sinus rhythm, rate 82 bpm, interventricular conduction delay, with frequent PVCs. Patient states that his dyspnea is chronic in nature. He is currently resting in bed on 3 L/min nasal cannula which she states he wears at home. Chest x-ray interpreted by me to show cardiomegaly, likely bilateral small pleural effusions, right hilar and upper lobe opacities or asymmetric pulmonary edema. Patient is currently being evaluated in the emergency department. Patient denies any weight gain or lower extremity swelling. Known to have end-stage renal disease and undergoes hemodialysis on a Friday, , Friday schedule. Denies missing any treatments. States he does not make urine, but does take Bumex on outpatient basis. He is also known to have severe aortic valve stenosis and cardiomyopathy. Most recent echocardiogram from April, estimating ejection fraction of 30 to 35%, as well as, grade 3 diastolic dysfunction, severe pulmonary hypertension with a mean gradient of 71 mmHg, as well as, severe aortic stenosis with mean gradient 38 mmHg. He denies any infectious- like symptoms such as fevers, chills, chest pain, change in his chronic cough, purulent sputum production. Does endorse an occasional cough with clear sputum. Viral screen negative for influenza, RSV, COVID. Current most recent vitals: Temperature 99 F, heart rate 77 bpm, blood pressure 119/71 mmHg, nontachypneic, SpO2 97% on 3 L/min nasal cannula. Nontoxic appearance. Progress note dated June 29, 2024. 78-year-old male seen today again in the emergency department, room 26. His procalcitonin was a bit elevated at 0.91. He is on 4 L of oxygen. He is receiving azithromycin, and Rocephin. His ejection fraction was 35 to 40%. The patient is being treated for a combination of both heart failure, systolic in nature, and possible pneumonia. Clinically, he looks better today. He is sitting in a chair next to his hospital bed. Current labs include a white count 8, hemoglobin 8.6, hematocrit 26.6, and a platelet count of 124,000. Sodium 135, potassium 5.3, chlorides 95, CO2 27, BUN 59, creatinine 6.68. Calcium is 8.2. Albumin is 3.1. Viral studies were negative. Blood and sputum cultures are currently pending. Progress note dated June 30, 2024. 78-year-old male seen today in room 376. He is resting comfortably in bed. He is on saline at 10 cc an hour, and getting nasal O2 at 3 L. He is comfortable, without any distress or difficulty. He was initially seen in the emergency department. Current labs include a white count 6.5, hemoglobin 8.2, hematocrit 26.4, and a platelet count of 104,000. Sodium 130, potassium 4.6, chloride 94, CO2 29, BUN 34, creatinine 4.03. Calcium is 8. AST is 193. ALT is 104. Procalcitonin level was 0.91. Objective - Vital Signs Vital signs: Vital Signs Temp 97.6 F 06/29/24 20:30 Pulse 50 L 06/30/24 12:00 Resp 16 06/30/24 12:00 BP 80/46 06/30/24 12:00 Pulse Ox 100 06/30/24 12:00 FiO2 Intake & Output 06/29/24 06/30/24 06/30/24 18:59 06:59 18:59 Intake Total 400 240 Output Total 4400 Balance -4000 240 Weight 77.111 kg Intake: Oral 240 Hemodialysis 400 Output: Hemodialysis 2400 Hemodialysis Net Amount 2000 Other: Voiding Method Diaper - Exam No acute distress, oriented 3. Very hard of hearing. Currently on 3 L. HEENT examination is grossly unremarkable. Mucous membranes are moist. No oral lesions. Neck supple. Full range of motion. No adenopathy thyromegaly or neck vein distention. Cardiovascular examination reveals regular rhythm rate. S1-S2 normal. No S3 or S4. Soft systolic murmur is noted. Heart sounds are distant. Lungs reveal bibasilar crackles, and diffuse rhonchi. Breath sounds are equal. No wheezes. Abdomen soft bowel sounds are heard. No masses or tenderness. Extremities are intact. No cyanosis clubbing or edema. Skin is without rash or lesion. Neurologic examination is brief but nonfocal. - Labs CBC & Chem 7: 06/30/24 06:43 06/30/24 06:43 Labs: Abnormal Lab Results - Last 24 Hours (Table) 06/30/24 06/30/24 Range/Units 06:43 06:43 RBC 2.48 L (4.30-5.90) m/uL Hgb 8.2 L (13.0-17.5) gm/dL Hct 26.4 L (39.0-53.0) % MCV 106.6 H (80.0-100.0) fL RDW 20.8 H (11.5-15.5) % Plt Count 104 L (150-450) k/uL Lymphocytes # 0.6 L (1.0-4.8) k/uL Macrocytosis Marked A Sodium 130 L (137-145) mmol/L Chloride 94 L (98-107) mmol/L BUN 34 H (9-20) mg/dL Creatinine 4.03 H (0.66-1.25) mg/dL Calcium 8.0 L (8.4-10.2) mg/dL AST 193 H (17-59) U/L ALT 104 H (4-49) U/L Alkaline Phosphatase 234 H (38-126) U/L Total Protein 6.1 L (6.3-8.2) g/dL Albumin 2.8 L (3.5-5.0) g/dL Microbiology - Last 24 Hours (Table) 06/27/24 22:07 Blood Culture - Preliminary Blood 06/28/24 18:33 Gram Stain - Preliminary Sputum Sputum Culture - Preliminary Assessment and Plan Assessment: Acute on chronic hypoxemic respiratory failure, currently on 3 L/min nasal cannula; chest x-ray interpreted by me to show cardiomegaly, likely bilateral small pleural effusions, right hilar and upper lobe opacities or asymmetric pulmonary edema. NT proBNP significantly elevated at 123,000. Suspect exacerbation of systolic congestive heart failure. End-stage renal disease, undergoes hemodialysis on a Friday, , Friday schedule. History of renal transplant. Anemia of chronic disease, hemoglobin stable at 8.1 g/dL. Elevated troponins, rule out non-ST elevation GA. History of severe aortic stenosis. History of heart failure with reduced ejection fraction. Chronic hypoxemic respiratory failure, normally on 2 to 3 L/min nasal cannula 30/12. History of hyperlipidemia. History of traumatic fall, resulting in left scapular fracture and acute compression fracture of T9 without retropulsion. Plan: Plan dated June 29, 2024. The patient is seen today in room 26, in the emergency department. He appears to be doing a bit better today than yesterday. He is sitting in a chair next to the hospital bed. He is currently on 4 L of oxygen. His ejection fraction is quite low. He is on azithromycin and Rocephin for presumed pneumonia. His procalcitonin level was a bit elevated at 0.91. Labs, x-rays, and medications are reviewed. We will continue to follow make recommendations where appropriate. Prognosis is guarded. The patient is extremely hard of hearing. Plan dated June 30, 2024. The patient is seen today in room 376. The patient is resting comfortably in bed. He continues on O2 at 3 L. He is getting saline at 10 cc an hour. The patient does have a history of aortic stenosis. He has a typical murmur. His admission diagnoses included both heart failure, and probable pneumonia. Labs, x-rays, and medications are reviewed. The patient's procalcitonin level was elevated at 0.91. We will continue to follow the patient, and make recommendations along the way. Time with Patient: Less than 30
--- NOTE | 2024-06-30 13:27 | P.PN ---
Subjective HISTORY OF PRESENT ILLNESS: This is a 78-year-old male with a past medical history significant for coronary artery disease, end-stage renal disease on hemodialysis, cardiomyopathy, and CAD. Patient follows in the office with Dr. Phillips. We have been asked to see the patient in consultation for congestive heart failure and elevated troponins. Eduardo baker examined at the bedside in the emergency room. Patient presented to the hospital with a chief complaint of shortness of breath. Patient reports he has been coughing frequently with sputum production. He also states his blood pressure has been running on the lower side. He denied any chest pain or pressure. Patient was found to have bibasilar pneumonia and was started on antibiotics. He continues to have a significant cough with sputum production at the time of examination. It is noted that the patient has severe aortic stenosis. When he was in the office in May 2024 for him and his daughter had a long conversation regarding possible aortic valve replacement and he had decided not to pursue valve replacement at that time. DIAGNOSTICS: - EKG reveals sinus mechanism with frequent PVCs. - Chest xray similar suspected bibasilar pneumonia. - Laboratory data: WBC 5.4. Hemoglobin 7.8. Platelet count 93. Sodium 135. Potassium 4.4. BUN 44. Creatinine 5.08. Troponin 0.440. 0.450. 0.426. proBNP 123,000 - Current home cardiac medications include Lipitor 80 mg at night, Bumex 2 mg daily, midodrine 5 mg 3 times a day. - Most recent echocardiogram obtained in April 2024 revealing ejection fraction 30 to 35%, mild to moderate mitral regurgitation, severe aortic st enosis, severe tricuspid regurgitation, moderate concentric LVH -Patient underwent ATA in April 2024 revealing severe aortic stenosis involving tricuspid aortic valve is heavily calcified. Cardiomyopathy with ejection fraction 35% - Cardiac catheterization history: April 2024 revealing calcified coronaries without focal obstructive disease, heavily calcified LAD. There is what appears like a stent in the proximal LAD that is patent. 06/29/2024 Patient examined this morning in the emergency room. Patient currently denies chest pain or pressure. He reports improvement in his shortness of breath. He also reports improvement in his cough. Bedside telemetry reveals sinus tachycardia. Blood pressure 111/63. 06/30/2024 Patient examined this morning at the bedside. Patient currently denies any chest pain or pressure. He denies shortness of breath. He remains on IV diuretics. Creatinine today 4.03. Blood pressure 98/50. Heart rate is in the 60s70s. PHYSICAL EXAM: VITAL SIGNS: Reviewed. GENERAL: Well-developed in no acute distress. HEENT: Head is normocephalic. Pupils are equal, round. Sclerae anicteric. Mucous membranes of the mouth are moist. Neck supple. No JVD or thyromegaly LUNGS: Respirations even and unlabored. Lungs diminished with rhonchi bilaterally HEART: Regular rate and rhythm. S1 and S2 heard. Systolic murmur noted. ABDOMEN: Soft. Nondistended. Nontender. EXTREMITIES: Normal range of motion. No clubbing or cyanosis. Peripheral pulses intact. No lower extremity edema NEUROLOGIC: Awake and alert. Oriented x 3. ASSESSMENT: Basilar pneumonia per chest x-ray Acute hypoxic respiratory failure requiring supplemental oxygen Severe aortic stenosis Acute on chronic heart failure with reduced EF Elevated troponins, type II IN, no evidence of acute coronary syndrome End-stage renal disease on hemodialysis Coronary artery disease with previous stenting Ischemic cardiomyopathy PLAN: An acute coronary event has been ruled out No need to repeat echocardiogram Continue current cardiac medications Continue telemetry monitoring Continue IV diuretics with Lasix 40 mg twice a day. Possible transition to oral diuretics tomorrow. Daily weights, accurate intake and output, and monitoring of kidney function Notified by case management that patient's family is now interested in pursuing TAVR. TAVR workup will not be done during inpatient admission. Patient may follow-up postdischarge with Dr. Phillips and can be referred to TAVR clinic when his acute issues have resolved. Further recommendations pending patient course Nurse practitioner note has been reviewed by physician. Signing provider agrees with the documented findings, assessment, and plan of care documented by HEEL PRICKER as a scribe. Objective - Vital Signs Vital signs: Vital Signs Temp 97.6 F 06/29/24 20:30 Pulse 50 L 06/30/24 13:20 Resp 16 06/30/24 12:00 BP 80/46 06/30/24 12:00 Pulse Ox 100 06/30/24 12:00 FiO2 Intake & Output 06/29/24 06/30/24 06/30/24 18:59 06:59 18:59 Intake Total 400 240 Output Total 4400 Balance -4000 240 Weight 77.111 kg Intake: Oral 240 Hemodialysis 400 Output: Hemodialysis 2400 Hemodialysis Net Amount 2000 Other: Voiding Method Diaper - Labs CBC & Chem 7: 06/30/24 06:43 06/30/24 06:43 Labs: Abnormal Lab Results - Last 24 Hours (Table) 06/30/24 06/30/24 Range/Units 06:43 06:43 RBC 2.48 L (4.30-5.90) m/uL Hgb 8.2 L (13.0-17.5) gm/dL Hct 26.4 L (39.0-53.0) % MCV 106.6 H (80.0-100.0) fL RDW 20.8 H (11.5-15.5) % Plt Count 104 L (150-450) k/uL Lymphocytes # 0.6 L (1.0-4.8) k/uL Macrocytosis Marked A Sodium 130 L (137-145) mmol/L Chloride 94 L (98-107) mmol/L BUN 34 H (9-20) mg/dL Creatinine 4.03 H (0.66-1.25) mg/dL Calcium 8.0 L (8.4-10.2) mg/dL AST 193 H (17-59) U/L ALT 104 H (4-49) U/L Alkaline Phosphatase 234 H (38-126) U/L Total Protein 6.1 L (6.3-8.2) g/dL Albumin 2.8 L (3.5-5.0) g/dL Microbiology - Last 24 Hours (Table) 06/27/24 22:07 Blood Culture - Preliminary Blood 06/28/24 18:33 Gram Stain - Preliminary Sputum Sputum Culture - Preliminary
--- NOTE | 2024-06-30 15:11 | US ---
EXAMINATION TYPE: US abdomen limited DATE OF EXAM: 06/30/2024 COMPARISON: CT 2024 CLINICAL INDICATION: Male, 78 years old with history of elevated LFTs; Elevated LFTs. Hx right kidney removed. TECHNIQUE: Grayscale and color Doppler imaging of the right upper quadrant. FINDINGS: EXAM MEASUREMENTS: Liver Length: 13.0 cm Gallbladder Wall: 0.63 cm CBD: 0.67 cm, color Doppler imaging was utilized to isolate the common bile duct for measurement. Right Kidney: Surgically absent EMERGENCY ROOM PHYSICIAN NOTES: Exam is limited due to gas. Pancreas: Obscured Liver: *Appears coarse with increased echogenicity. Gallbladder: *Anechoic appearance of fluid adjacent to the gallbladder. Wall appears thickened* Hyperechoic focus seen in the neck: 0.7 x 0.8 x 0.4 cm. Evidence for sonographic Cat's sign: No CBD: Slightly limited evaluation, appears borderline dilated. Right Kidney: Surgically absent Appearance of probable right pleural effusion in RUQ imaging. IMPRESSION: Pericholecystic fluid or gallstones and thickened gallbladder wall correlate for acute cholecystitis. [facility], , 06/30/2024 3:08 PM
[2024-06-30] MEDS: metroNIDAZOLE-NS PMX 500 MG in SALINE 1 100ML.BAG IVPB SCH (16:55)
--- NOTE | 2024-06-30 20:12 | P.PN ---
Subjective Patient is seen for follow-up for end-stage renal disease. Bedside sitter noted. Scheduled for hemodialysis today. Objective - Vital Signs Vital signs: Vital Signs Temp 97.6 F 06/29/24 20:30 Pulse 50 L 06/30/24 16:00 Resp 16 06/30/24 16:00 BP 90/53 06/30/24 16:00 Pulse Ox 100 06/30/24 16:00 FiO2 Intake & Output 06/30/24 06/30/24 07/01/24 06:59 18:59 06:59 Intake Total 480 Balance 480 Intake: Oral 480 Other: Voiding Method Diaper Diaper - Exam Patient is awake, comfortable, no acute distress. Examination of the heart S1 and S2 Examination of the lungs bilateral breath sounds are heard Abdomen is soft nontender Examination of the lower extremities shows no significant edema, chronic skin changes - Labs CBC & Chem 7: 06/30/24 06:43 06/30/24 06:43 Labs: Abnormal Lab Results - Last 24 Hours (Table) 06/30/24 06/30/24 Range/Units 06:43 06:43 RBC 2.48 L (4.30-5.90) m/uL Hgb 8.2 L (13.0-17.5) gm/dL Hct 26.4 L (39.0-53.0) % MCV 106.6 H (80.0-100.0) fL RDW 20.8 H (11.5-15.5) % Plt Count 104 L (150-450) k/uL Lymphocytes # 0.6 L (1.0-4.8) k/uL Macrocytosis Marked A Sodium 130 L (137-145) mmol/L Chloride 94 L (98-107) mmol/L BUN 34 H (9-20) mg/dL Creatinine 4.03 H (0.66-1.25) mg/dL Calcium 8.0 L (8.4-10.2) mg/dL AST 193 H (17-59) U/L ALT 104 H (4-49) U/L Alkaline Phosphatase 234 H (38-126) U/L Total Protein 6.1 L (6.3-8.2) g/dL Albumin 2.8 L (3.5-5.0) g/dL Microbiology - Last 24 Hours (Table) 06/27/24 22:07 Blood Culture - Preliminary Blood 06/28/24 18:33 Gram Stain - Preliminary Sputum Sputum Culture - Preliminary Assessment and Plan Assessment: 1. End-stage renal disease maintained on hemodialysis on Friday schedule via left upper extremity AV fistula. 2. Acute hypoxic respiratory failure. 3. Pneumonia maintained on antibiotics. 4. Fluid overload. 5. Peripheral arterial disease. 6. Anemia of chronic kidney disease. 7. Chronic kidney disease mineral bone disease maintained on calcitriol and PhosLo. 8. Acute on chronic systolic CHF with severe aortic stenosis and pulmonary hypertension. 9. Recent clavicular fracture. Plan: Hemodialysis in a.m. [place]
[2024-07-01 06:24] LABS: Anisocytosis Moderate; Basophils # (A) 0.1 k/uL (0-0.2); Basophils % (A) 1 %; Eosinophils # (A) 0.2 k/uL (0-0.7); Eosinophils % (A) 3 %; HCT 26.5 % (39.0-53.0); HGB 8.3 gm/dL (13.0-17.5); Hypochromasia Marked; Lymphocytes # (A) 0.7 k/uL (1.0-4.8); Lymphocytes % (A) 10 %; MCH 33.6 pg (25.0-35.0); MCHC 31.3 g/dL (31.0-37.0); MCV 107.2 fL (80.0-100.0); Mean Platelet Volume 10.2; Monocytes # (A) 0.4 k/uL (0-1.0); Monocytes % (A) 6 %; Neutrophils # (A) 5.3 k/uL (1.3-7.7); Neutrophils % (A) 79 %; Platelet Count 121 k/uL (150-450); RBC 2.47 m/uL (4.30-5.90); RDW 20.1 % (11.5-15.5); WBC 6.8 k/uL (3.8-10.6)
[2024-07-01 06:26] LABS: Macrocytosis Marked
[2024-07-01 06:48] LABS: ALT 109 U/L (4-49); AST 187 U/L (17-59); African American GFR (CKD) 10 (>60 ml/min/1.73 sqM); Albumin 2.7 g/dL (3.5-5.0); Alkaline Phosphatase 236 U/L (38-126); Anion Gap 10 mmol/L; Blood Urea Nitrogen 42 mg/dL (9-20); Calcium 7.7 mg/dL (8.4-10.2); Carbon Dioxide 29 mmol/L (22-30); Chloride 92 mmol/L (98-107); Glucose 78 mg/dL (74-99); Non-African American GFR(CKD) 9 (>60 ml/min/1.73 sqM); Potassium 4.6 mmol/L (3.5-5.1); Sodium 131 mmol/L (137-145); Total Bilirubin 0.9 mg/dL (0.2-1.3)
[2024-07-01] MEDS: ALBUTEROL NEBULIZED 2.5 MG/3 ML INHALATION SCH (09:13)
--- NOTE | 2024-07-01 11:36 | P.GSCN ---
History of Present Illness Consult date: 07/01/24 History of present illness: CHIEF COMPLAINT: Shortness of breath HISTORY OF PRESENT ILLNESS: This is a 78-year-old male who presented to hospital with complaints of shortness of breath. He is being treated for pneumonia, acute CHF exacerbation with EF of 35% and acute hypoxic respiratory failure. Patient also has end-stage renal disease and on hemodialysis. He is receiving hemodialysis today. He is on IV Lasix. Patient also had been hypotensive. His liver enzymes have been elevated. Family at bedside did report that patient has had some intermittent abdominal pain more in the epigastric area with diarrhea. Due to the elevated LFTs a gallbladder ultrasound had been ordered they had reported pericholecystic fluid or gallstones and thickened gallbladder wall correlate for acute cholecystitis. Patient is afebrile white count is normal. Past surgical history does include a kidney transplant in 1992 and [id number] as well as appendectomy. Patient does have a severe aortic stenosis and is being evaluated by cardiology regarding possible TAVR. Patient seen and examined with Dr. Singleton PAST MEDICAL HISTORY: See below PAST SURGICAL HISTORY: See below MEDICATIONS: See below ALLERGIES: See below SOCIAL HISTORY: No illicit drug use. REVIEW OF SYSTEMS: CONSTITUTIONAL: Denies fever or chills. HEENT: Denies blurred vision, vision changes, or eye pain. Denies hemoptysis CARDIOVASCULAR: Denies chest pain or pressure. RESPIRATORY: No shortness of breath. GASTROINTESTINAL: See HPI for pertinent findings HEMATOLOGIC: Denies bleeding disorders. GENITOURINARY: Denies any blood in urine or increased urinary frequency. SKIN: Denies pruitis. Denies rash. PHYSICAL EXAM: VITAL SIGNS: Reviewed GENERAL: Well-developed in no acute distress. HEENT: No sclera icterus. Extraocular movements grossly intact. Moist buccal mucosa. Head is atraumatic, normocephalic. No nasal drainage. ABDOMEN: Soft. Nondistended. Nontender. No rebound or guarding noted. NEUROLOGIC: Alert and oriented. Cranial nerves II through XII grossly intact. LABORATORY DATA: WBC 6.8 Hgb 8.3 platelets 121 Sodium is 131 potassium is 4.6 creatinine 5.49 Total bilirubin 0.9 AST 187 ALT 109 alk phos 236 IMAGING: Abdominal ultrasound reports pericholecystic fluid or gallstones and thickened gallbladder wall correlate for acute cholecystitis ASSESSMENT: 1. Chronic cholecystitis. Patient tolerating diet. Nontender right upper quadrant. LFTs could be elevated due to hypotension and fluid overload. No evidence of acute cholecystitis. 2. Severe aortic stenosis being evaluated by cardiology for possible TAVR 3. End-stage renal disease on hemodialysis PLAN: -No surgical intervention planned -Recommend low-fat diet -Continue to observe -Continue cardiac workup Physician Counter Server note has been reviewed by physician. Signing provider agrees with the documented findings, assessment, and plan of care. Attestation Patient seen and examined at bedside with family at bedside. Presented with chief complaint of shortness of breath. Patient did have ultrasound of the abdomen performed secondary to some elevated LFTs. Patient currently denying any abdominal pain. Abdominal ultrasound reports para cholecystic fluid or gallstones and thickened gallbladder wall. At this point, clinically without any abdominal pain, this is unlikely acute cholecystitis. Patient also with finding of severe aortic stenosis and being evaluated for possible TAVR pro cedure. He is dialysis dependent secondary to end-stage renal disease. At this point, continue with cardiac workup. As he does not appear to have clinical signs of acute cholecystitis, no surgical intervention is planned. Continue low-fat diet. Will continue to follow and make recommendations should his clinical progress change. 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%, history of renal transplant and 2 in 1992 from a donor and in 1995 from a living donor, history of neck fracture, history of Covid 19 infection, severe aortic stenosis, anemia of chronic disease neuropathy, dialysis Friday History of Any Multi-Drug Resistant Organisms: MRSA Year Discovered:: 03/19/24 MDRO Source:: rt knee, blood Past Surgical History: Appendectomy Additional Past Surgical History / Comment(s): Kidney transplant in 07/28/1992 and 1995 and the patient has a fistula in the left upper extremity Past Anesthesia/Blood Transfusion Reactions: No Reported Reaction Past Psychological History: No Psychological Hx Reported Smoking Status: Former smoker Past Alcohol Use History: Rare Additional Past Alcohol Use History / Comment(s): per pt quit smoking ten years ago Past Drug Use History: None Reported - Past Family History Mother Family Medical History: Cancer Additional Family Medical History / Comment(s): Pancreatic cancer. Father Family Medical History: CVA/TIA Additional Family Medical History / Comment(s): of stroke. Medications and Allergies Home Medications Medication Instructions Recorded Confirmed Type rOPINIRole HCL [Requip] 2 mg PO BID@0800,1700 05/01/22 06/28/24 History Calcium Acetate [PhosLo] 2,001 mg PO TID-W/MEALS 08/16/22 06/28/24 History allopurinoL [Zyloprim] 100 mg PO TUTHSA 02/12/23 06/28/24 History Midodrine [ProAmatine] 5 mg PO AC-TID 09/25/23 06/28/24 History PARoxetine [Paxil] 10 mg PO DAILY 03/19/24 06/28/24 History Atorvastatin [Lipitor] 80 mg PO HS #60 tab 03/22/24 06/28/24 Rx Acetaminophen Tab [Tylenol] 650 mg PO Q8HR PRN 06/28/24 06/28/24 History Albuterol Nebulized [Ventolin 2.5 mg INHALATION RT-Q4H PRN 06/28/24 06/28/24 History Nebulized] Bumetanide [Bumex] 2 mg PO DAILY@0600 06/28/24 06/28/24 History Famotidine [Pepcid] 20 mg PO DAILY 06/28/24 06/28/24 History Heparin Sodium,Porcine (1 ml) 5,000 unit SQ Q8HR 06/28/24 06/28/24 History [Heparin Sodium] Magnesium Hydroxide [Milk of 7,200 mg PO DAILY PRN MDD T 06/28/24 06/28/24 History Magnesia Concentrate] Na Phos,M-B/Na Phos,Di-Ba [Fleet 133 ml RECTAL DAILY PRN 06/28/24 06/28/24 History Adult] bisacodyL [Dulcolax] 10 mg RECTAL DAILY PRN 06/28/24 06/28/24 History calcitrioL 0.25 mcg PO BENTON 06/28/24 06/28/24 History Allergies Allergy/AdvReac Type Severity Reaction Status Date / Time losartan Allergy Intermediate Swelling Verified 06/28/24 09:17 Aminoglycosides Allergy Unknown Unknown Verified 06/28/24 09:17 REINIER Inhibitors Allergy Unknown Verified 06/28/24 09:17 enalapril Allergy Swelling Verified 06/28/24 09:17 enalaprilat [From Vasotec] Allergy Swelling Verified 06/28/24 09:17 ibuprofen Allergy Unknown Verified 06/28/24 09:17 lisinopril Allergy Swelling Verified 06/28/24 09:17 vancomycin Allergy Unknown Verified 06/28/24 09:17 vitamin A Allergy Unknown Verified 06/28/24 09:17 gabapentin AdvReac Hallucinati Verified 06/28/24 09:17 ons/Nightma res Surgical - Exam Osteopathic Statement: *. No significant issues noted on an osteopathic structural exam other than those noted in the History and Physical/Consult. Vital Signs Temp Pulse Resp BP Pulse Ox 99.0 F 75 18 121/106 100 06/27/24 18:47 06/27/24 18:47 06/27/24 18:47 06/27/24 18:47 06/27/24 18:47 Results - Labs 07/01/24 05:56 07/01/24 05:56 Abnormal Lab Results - Last 24 Hours (Table) 07/01/24 07/01/24 Range/Units 05:56 05:56 RBC 2.47 L (4.30-5.90) m/uL Hgb 8.3 L (13.0-17.5) gm/dL Hct 26.5 L (39.0-53.0) % MCV 107.2 H (80.0-100.0) fL RDW 20.1 H (11.5-15.5) % Plt Count 121 L (150-450) k/uL Lymphocytes # 0.7 L (1.0-4.8) k/uL Macrocytosis Marked A Sodium 131 L (137-145) mmol/L Chloride 92 L (98-107) mmol/L BUN 42 H (9-20) mg/dL Creatinine 5.49 H (0.66-1.25) mg/dL Calcium 7.7 L (8.4-10.2) mg/dL AST 187 H (17-59) U/L ALT 109 H (4-49) U/L Alkaline Phosphatase 236 H (38-126) U/L Total Protein 6.0 L (6.3-8.2) g/dL Albumin 2.7 L (3.5-5.0) g/dL Microbiology - Last 24 Hours (Table) 06/28/24 18:33 Gram Stain - Preliminary Sputum Sputum Culture - Preliminary Gram Neg Bacilli Corynebacterium species Tamera glabrata 06/27/24 22:07 Blood Culture - Preliminary Blood Diabetes panel 07/01/24 Range/Units 05:56 Sodium 131 L (137-145) mmol/L Potassium 4.6 (3.5-5.1) mmol/L Chloride 92 L (98-107) mmol/L Carbon Dioxide 29 (22-30) mmol/L BUN 42 H (9-20) mg/dL Creatinine 5.49 H (0.66-1.25) mg/dL Glucose 78 (74-99) mg/dL Calcium 7.7 L (8.4-10.2) mg/dL AST 187 H (17-59) U/L ALT 109 H (4-49) U/L Alkaline Phosphatase 236 H (38-126) U/L Total Protein 6.0 L (6.3-8.2) g/dL Albumin 2.7 L (3.5-5.0) g/dL Calcium panel 07/01/24 Range/Units 05:56 Calcium 7.7 L (8.4-10.2) mg/dL Albumin 2.7 L (3.5-5.0) g/dL Pituitary panel 07/01/24 Range/Units 05:56 Sodium 131 L (137-145) mmol/L Potassium 4.6 (3.5-5.1) mmol/L Chloride 92 L (98-107) mmol/L Carbon Dioxide 29 (22-30) mmol/L BUN 42 H (9-20) mg/dL Creatinine 5.49 H (0.66-1.25) mg/dL Glucose 78 (74-99) mg/dL Calcium 7.7 L (8.4-10.2) mg/dL Adrenal panel 07/01/24 Range/Units 05:56 Sodium 131 L (137-145) mmol/L Potassium 4.6 (3.5-5.1) mmol/L Chloride 92 L (98-107) mmol/L Carbon Dioxide 29 (22-30) mmol/L BUN 42 H (9-20) mg/dL Creatinine 5.49 H (0.66-1.25) mg/dL Glucose 78 (74-99) mg/dL Calcium 7.7 L (8.4-10.2) mg/dL Total Bilirubin 0.9 (0.2-1.3) mg/dL AST 187 H (17-59) U/L ALT 109 H (4-49) U/L Alkaline Phosphatase 236 H (38-126) U/L Total Protein 6.0 L (6.3-8.2) g/dL Albumin 2.7 L (3.5-5.0) g/dL
--- NOTE | 2024-07-01 11:49 | P.PN ---
Subjective Progress Note Date: 07/01/24 Patient is an 78-year-old male with past medical history of ESRD status post kidney transplant on hemodialysis, dyslipidemia, severe aortic stenosis, HFrEF EF 30 to 35%, severe pulmonary hypertension who presents to the ED shortness of breath. Per ED note patient is a poor historian, presented with shortness of breath, chest pain and pain with inspiration. At the time of my assessment patient was confused and was not able to provide much history. He could not recall why he was at the hospital. He did report mild shortness of breath at the time of interview but had no additional complaints. He denied experiencing chest discomfort, shortness of breath, cough, nausea, vomiting, abdominal pain, diarrhea. Of note the patient was recently admitted for clavicular fracture and discharged 1 week ago. 06/29/2024 Patient seen and examined at bedside. No events overnight. He states that his shortness of breath is improving. He is to have dialysis today. 06/30/2024 Patient seen and examined at bedside. Hemodialysis yesterday with 2 L taken off. He was relatively hypotensive but remains asymptomatic. Shortness of breath improving. 07/01/2024 Patient seen and examined at bedside. Hemodialysis today. He continues to be hypotensive and asymptomatic on midodrine. Denies chest pain or shortness of breath. Denies abdominal pain. Surgery consulted, no intervention planned. PT to evaluate tomorrow. Review of systems: Pertinent positives and negatives as discussed in HPI, a complete review of systems was performed and all other systems are negative. Physical examination: Vital signs reviewed General: Lethargic, appears at stated age, hard of hearing Derm: warm, dry, intact, large hematoma noted on left chest Head: atraumatic, normocephalic, symmetric Eyes: Did not assess Mouth: no lip lesion, mucus membranes moist Cardiovascular: S1 S2 reg, systolic ejection murmur loudest at RUSB Lungs: Wheeze bilaterally R>L Abdominal: soft, non-tender to palpation, nondistended Extremities: No cyanosis, clubbing, or pedal edema. Psych: well appearing, appropriate affect Neuro: Alert and oriented, no gross focal deficits noted on neurological examination Today's findings: Labs WBC 6.8, hemoglobin 8.3, MCV 107.2, platelets 121, sodium 131, BUN 42, creatinine 5.49, AST 187, ALT 109, ALP 236 No imaging today Assessment/Plan: Patient is a 78-year-old male with past medical history of ESRD on hemodialysis, dyslipidemia, aortic stenosis, HFrEF, severe pulmonary hypertension who presented with shortness of breath. Case was discussed with the ED physician and patient will be admitted to internal medicine service for further evaluation. Acute on chronic hypoxic respiratory failure, suspect multifactorial in setting of fluid overload secondary to ESRD and systolic CHF exacerbation (HFrEF 30 to 35%), unable to rule out community-acquired pneumonia Hypotension Severe aortic stenosis Generalized weakness Initial CXR shows suspected bibasilar opacities NT proBNP 123,000 Resume home Bumex 2 mg p.o. daily Begin metoprolol tartrate 25 mg twice daily Procalcitonin 0.91 continue IV ceftriaxone 2 g daily Continue bronchodilators Cardiac monitoring and supplemental oxygen as needed. Baseline O2 2 to 3 L. Hemodialysis today, schedule of Friday, , Friday. Midodrine increased to 10 3 times daily PT OT consulted Nephrology following for hemodialysis Cardiology following, TAVR workup as outpatient Pulmonology following Possible cholecystitis Transaminitis Initial AST 148, ALT 76, ALP 236. Continue to monitor LFTs Discontinued IV Flagyl General Surgery following, no intervention planned at this time Anemia of chronic disease Hemoglobin of 8.1 Continue to monitor Transfuse if less than 7 NSTEMI type II, possibly secondary to ESRD with CHF exacerbation ACS ruled out by cardiology Peak troponin 0.450, down trended Cardiac telemetry Cardiology following Chronic: Gout allopurinol Dyslipidemia Continue Lipitor 80 mg p.o. at bedtime F: P.o. E: Replete as needed N: Heart healthy A: Fall precautions, PT OT assessment DVT prophylaxis: Heparin 5000 units subcu every 8 hours CODE STATUS: FULL code Discussed with: Patient Anticipated discharge place: Rehab Patient is severely ill, prognosis guarded. I have seen and evaluated the patient today. Discussed with the resident and agree with the residents finding and plan as documented in the resident's note. Changes highlighted in blue font. Objective - Vital Signs Vital signs: Vital Signs Temp 97.6 F 06/29/24 20:30 Pulse 50 L 07/01/24 04:39 Resp 15 07/01/24 04:39 BP 99/54 07/01/24 04:39 Pulse Ox 100 07/01/24 04:39 FiO2 Intake & Output 01/07/01/24 07/01/24 18:59 06:59 18:59 Intake Total 480 Balance 480 Weight 60.5 kg Intake: Oral 480 Other: Voiding Method Diaper Diaper - Labs CBC & Chem 7: 07/01/24 05:56 07/01/24 05:56 Labs: Abnormal Lab Results - Last 24 Hours (Table) 06/30/24 06/30/24 07/01/24 Range/Units 06:43 06:43 05:56 RBC 2.48 L 2.47 L (4.30-5.90) m/uL Hgb 8.2 L 8.3 L (13.0-17.5) gm/dL Hct 26.4 L 26.5 L (39.0-53.0) % MCV 106.6 H 107.2 H (80.0-100.0) fL RDW 20.8 H 20.1 H (11.5-15.5) % Plt Count 104 L 121 L (150-450) k/uL Lymphocytes # 0.6 L 0.7 L (1.0-4.8) k/uL Macrocytosis Marked A Marked A Sodium 130 L (137-145) mmol/L Chloride 94 L (98-107) mmol/L BUN 34 H (9-20) mg/dL Creatinine 4.03 H (0.66-1.25) mg/dL Calcium 8.0 L (8.4-10.2) mg/dL AST 193 H (17-59) U/L ALT 104 H (4-49) U/L Alkaline Phosphatase 234 H (38-126) U/L Total Protein 6.1 L (6.3-8.2) g/dL Albumin 2.8 L (3.5-5.0) g/dL 07/01/24 Range/Units 05:56 RBC (4.30-5.90) m/uL Hgb (13.0-17.5) gm/dL Hct (39.0-53.0) % MCV (80.0-100.0) fL RDW (11.5-15.5) % Plt Count (150-450) k/uL Lymphocytes # (1.0-4.8) k/uL Macrocytosis Sodium 131 L (137-145) mmol/L Chloride 92 L (98-107) mmol/L BUN 42 H (9-20) mg/dL Creatinine 5.49 H (0.66-1.25) mg/dL Calcium 7.7 L (8.4-10.2) mg/dL AST 187 H (17-59) U/L ALT 109 H (4-49) U/L Alkaline Phosphatase 236 H (38-126) U/L Total Protein 6.0 L (6.3-8.2) g/dL Albumin 2.7 L (3.5-5.0) g/dL Microbiology - Last 24 Hours (Table) 06/27/24 22:07 Blood Culture - Preliminary Blood 06/28/24 18:33 Gram Stain - Preliminary Sputum Sputum Culture - Preliminary
--- NOTE | 2024-07-01 13:24 | P.PN ---
Subjective Progress Note Date: 07/01/24 Principal diagnosis: Shortness of breath. Patient is a 78-year-old male with past medical history significant for severe aortic stenosis, congestive heart failure, kidney transplant, end-stage renal disease, and recent fall resulting in left scapular fracture. PCP is Dr. Pereira. He presented emergency department yesterday evening, reportedly with a chief complaint of short of breath. He is hard of hearing, making difficult to communicate. When asked about his shortness of breath, he states that has been ongoing for almost a year. He is chronically oxygen pendant on 2 to 3 L/min nasal cannula while at home. He is currently residing at [facility] for rehab after a fall resulting in a left scapular fracture and T9 compression fracture on June 16. He was transferred to [facility] as the patient was felt to be high surgical risk. Patient states that they could not do anything for him there. He believes the reason he was sent in from [facility] was for low blood pressures. CBC: WBC count 7.5, hemoglobin 8.1, hematocrit 24.9, platelets 116. CMP: Sodium 134, potassium 4.7, chloride 95, serum bicarb 31, BUN 41, creatinine 4.36, glucose 100. Lactic 1.8. LFTs mildly elevated. Troponin 0.44. NT proBNP 123,000. EKG: Normal sinus rhythm, rate 82 bpm, interventricular conduction delay, with frequent PVCs. Patient states that his dyspnea is chronic in nature. He is currently resting in bed on 3 L/min nasal cannula which she states he wears at home. Chest x-ray interpreted by me to show cardiomegaly, likely bilateral small pleural effusions, right hilar and upper lobe opacities or asymmetric pulmonary edema. Patient is currently being evaluated in the emergency department. Patient denies any weight gain or lower extremity swelling. Known to have end-stage renal disease and undergoes hemodialysis on a Friday, , Friday schedule. Denies missing any treatments. States he does not make urine, but does take Bumex on outpatient basis. He is also known to have severe aortic valve stenosis and cardiomyopathy. Most recent echocardiogram from April, estimating ejection fraction of 30 to 35%, as well as, grade 3 diastolic dysfunction, severe pulmonary hypertension with a mean gradient of 71 mmHg, as well as, severe aortic stenosis with mean gradient 38 mmHg. He denies any infectious- like symptoms such as fevers, chills, chest pain, change in his chronic cough, purulent sputum production. Does endorse an occasional cough with clear sputum. Viral screen negative for influenza, RSV, COVID. Current most recent vitals: Temperature 99 F, heart rate 77 bpm, blood pressure 119/71 mmHg, nontachypneic, SpO2 97% on 3 L/min nasal cannula. Nontoxic appearance. Progress note dated June 29, 2024. 78-year-old male seen today again in the emergency department, room 26. His procalcitonin was a bit elevated at 0.91. He is on 4 L of oxygen. He is receiving azithromycin, and Rocephin. His ejection fraction was 35 to 40%. The patient is being treated for a combination of both heart failure, systolic in nature, and possible pneumonia. Clinically, he looks better today. He is sitting in a chair next to his hospital bed. Current labs include a white count 8, hemoglobin 8.6, hematocrit 26.6, and a platelet count of 124,000. Sodium 135, potassium 5.3, chlorides 95, CO2 27, BUN 59, creatinine 6.68. Calcium is 8.2. Albumin is 3.1. Viral studies were negative. Blood and sputum cultures are currently pending. Progress note dated June 30, 2024. 78-year-old male seen today in room 376. He is resting comfortably in bed. He is on saline at 10 cc an hour, and getting nasal O2 at 3 L. He is comfortable, without any distress or difficulty. He was initially seen in the emergency department. Current labs include a white count 6.5, hemoglobin 8.2, hematocrit 26.4, and a platelet count of 104,000. Sodium 130, potassium 4.6, chloride 94, CO2 29, BUN 34, creatinine 4.03. Calcium is 8. AST is 193. ALT is 104. Procalcitonin level was 0.91. Progress note dated June 10, 2024. 78-year-old male seen today in room 376. The patient is currently undergoing hemodialysis. The goal today is removal of 1.5 L. His blood pressure according to the dialysis nurse, was a little soft. He is currently on 2 L of oxygen. He is not receiving any IV fluids. Clinically, he feels better, and his breathing is improved. White count 6.8, hemoglobin 8.3, hematocrit 26.5, and platelet count 121,000. Sodium 131, potassium 4.6, chlorides 92, CO2 29, BUN 42, and creatinine 5.49. Calcium is 7.7. The rest of his labs have been reviewed. Sputum sample showing gram-negative bacilli, Tamera glabrata, and corynebacterium species. Patient remains on Rocephin. Objective - Vital Signs Vital signs: Vital Signs Temp 97.5 F L 07/01/24 08:00 Pulse 50 L 07/01/24 12:00 Resp 16 07/01/24 12:00 BP 93/47 07/01/24 12:00 Pulse Ox 100 07/01/24 08:00 FiO2 Intake & Output 06/30/24 07/01/24 07/01/24 18:59 06:59 18:59 Intake Total 480 240 Balance 480 240 Weight 60.5 kg Intake: Oral 480 240 Other: Voiding Method Diaper Diaper Diaper - Exam No acute distress, oriented 3. Very hard of hearing. Currently on 2 L. HEENT examination is grossly unremarkable. Mucous membranes are moist. No oral lesions. Neck supple. Full range of motion. No adenopathy thyromegaly or neck vein distention. Cardiovascular examination reveals regular rhythm rate. S1-S2 normal. No S3 or S4. Soft systolic murmur is noted. Heart sounds are distant. Lungs reveal bibasilar crackles, and diffuse rhonchi. Breath sounds are equal. No wheezes. Abdomen soft bowel sounds are heard. No masses or tenderness. Extremities are intact. No cyanosis clubbing or edema. Skin is without rash or lesion. Neurologic examination is brief but nonfocal. - Labs CBC & Chem 7: 07/01/24 05:56 07/01/24 05:56 Labs: Abnormal Lab Results - Last 24 Hours (Table) 07/01/24 07/01/24 Range/Units 05:56 05:56 RBC 2.47 L (4.30-5.90) m/uL Hgb 8.3 L (13.0-17.5) gm/dL Hct 26.5 L (39.0-53.0) % MCV 107.2 H (80.0-100.0) fL RDW 20.1 H (11.5-15.5) % Plt Count 121 L (150-450) k/uL Lymphocytes # 0.7 L (1.0-4.8) k/uL Macrocytosis Marked A Sodium 131 L (137-145) mmol/L Chloride 92 L (98-107) mmol/L BUN 42 H (9-20) mg/dL Creatinine 5.49 H (0.66-1.25) mg/dL Calcium 7.7 L (8.4-10.2) mg/dL AST 187 H (17-59) U/L ALT 109 H (4-49) U/L Alkaline Phosphatase 236 H (38-126) U/L Total Protein 6.0 L (6.3-8.2) g/dL Albumin 2.7 L (3.5-5.0) g/dL Microbiology - Last 24 Hours (Table) 06/27/24 22:07 Blood Culture - Preliminary Blood 06/28/24 18:33 Gram Stain - Preliminary Sputum Sputum Culture - Preliminary Gram Neg Bacilli Corynebacterium species Tamera glabrata Assessment and Plan Assessment: Acute on chronic hypoxemic respiratory failure, currently on 3 L/min nasal cannula; chest x-ray interpreted by me to show cardiomegaly, likely bilateral small pleural effusions, right hilar and upper lobe opacities or asymmetric pulmonary edema. NT proBNP significantly elevated at 123,000. Suspect exacerbation of systolic congestive heart failure. End-stage renal disease, undergoes hemodialysis on a Friday, , Friday schedule. History of renal transplant. Anemia of chronic disease, hemoglobin stable at 8.1 g/dL. Elevated troponins, rule out non-ST elevation GA. History of severe aortic stenosis. History of heart failure with reduced ejection fraction. Chronic hypoxemic respiratory failure, normally on 2 to 3 L/min nasal cannula . History of hyperlipidemia. History of traumatic fall, resulting in left scapular fracture and acute compression fracture of T9 without retropulsion. Plan: Plan dated June 29, 2024. The patient is seen today in room 26, in the emergency department. He appears to be doing a bit better today than yesterday. He is sitting in a chair next to the hospital bed. He is currently on 4 L of oxygen. His ejection fraction is quite low. He is on azithromycin and Rocephin for presumed pneumonia. His procalcitonin level was a bit elevated at 0.91. Labs, x-rays, and medications a re reviewed. We will continue to follow make recommendations where appropriate. Prognosis is guarded. The patient is extremely hard of hearing. Plan dated June 30, 2024. The patient is seen today in room 376. The patient is resting comfortably in bed. He continues on O2 at 3 L. He is getting saline at 10 cc an hour. The patient does have a history of aortic stenosis. He has a typical murmur. His admission diagnoses included both heart failure, and probable pneumonia. Labs, x-rays, and medications are reviewed. The patient's procalcitonin level was elevated at 0.91. We will continue to follow the patient, and make recommendations along the way. Plan dated July 01, 2024. The patient is seen today in room 376. He is having hemodialysis as we speak. The plan is to remove 1.5 L of fluid. He is currently on 2 L of oxygen. He is not receiving any IV fluids. Labs, x-rays, and all medications have been reviewed. The patient continues on Rocephin. His procalcitonin level was elevated at 0.91. He is basically being treated for heart failure/fluid overload, and possible pneumonia. Clinically, he is improved. Time with Patient: Less than 30
--- NOTE | 2024-07-01 16:58 | P.PN ---
Subjective Patient is seen for follow-up for end-stage renal disease. He is more awake today and answering questions appropriately. Seen on hemodialysis. Objective - Vital Signs Vital signs: Vital Signs Temp 97.5 F L 07/01/24 08:00 Pulse 50 L 07/01/24 12:00 Resp 16 07/01/24 12:00 BP 93/47 07/01/24 12:00 Pulse Ox 100 07/01/24 08:00 FiO2 Intake & Output 06/30/24 07/01/24 07/01/24 18:59 06:59 18:59 Intake Total 480 240 Balance 480 240 Weight 60.5 kg Intake: Oral 480 240 Other: Voiding Method Diaper Diaper Diaper - Exam Patient is awake, comfortable, no acute distress. Examination of the heart S1 and S2 Examination of the lungs bilateral breath sounds are heard Abdomen is soft nontender Examination of the lower extremities shows no significant edema, chronic skin changes - Labs CBC & Chem 7: 07/01/24 05:56 07/01/24 05:56 Labs: Abnormal Lab Results - Last 24 Hours (Table) 07/01/24 07/01/24 Range/Units 05:56 05:56 RBC 2.47 L (4.30-5.90) m/uL Hgb 8.3 L (13.0-17.5) gm/dL Hct 26.5 L (39.0-53.0) % MCV 107.2 H (80.0-100.0) fL RDW 20.1 H (11.5-15.5) % Plt Count 121 L (150-450) k/uL Lymphocytes # 0.7 L (1.0-4.8) k/uL Macrocytosis Marked A Sodium 131 L (137-145) mmol/L Chloride 92 L (98-107) mmol/L BUN 42 H (9-20) mg/dL Creatinine 5.49 H (0.66-1.25) mg/dL Calcium 7.7 L (8.4-10.2) mg/dL AST 187 H (17-59) U/L ALT 109 H (4-49) U/L Alkaline Phosphatase 236 H (38-126) U/L Total Protein 6.0 L (6.3-8.2) g/dL Albumin 2.7 L (3.5-5.0) g/dL Microbiology - Last 24 Hours (Table) 06/27/24 22:07 Blood Culture - Preliminary Blood 06/28/24 18:33 Gram Stain - Preliminary Sputum Sputum Culture - Preliminary Gram Neg Bacilli Corynebacterium species Tamera glabrata Assessment and Plan Assessment: 1. End-stage renal disease maintained on hemodialysis on Friday schedule via left upper extremity AV fistula. 2. Acute hypoxic respiratory failure. 3. Pneumonia maintained on antibiotics. 4. Fluid overload. 5. Peripheral arterial disease. 6. Anemia of chronic kidney disease. 7. Chronic kidney disease mineral bone disease maintained on calcitriol and PhosLo. 8. Acute on chronic systolic CHF with severe aortic stenosis and pulmonary hypertension. 9. Recent clavicular fracture. Plan: Hemodialysis today APRIL Correa
[2024-07-01] MEDS: METOPROLOL TARTRATE 12.5 MG TAB PO SCH (20:17)
--- NOTE | 2024-07-01 20:35 | PN ---
PROGRESS NOTE SUBJECTIVE: John is an 78-year-old gentleman with history of aortic stenosis, end-stage renal disease, and hemodialysis, who is admitted to hospital primarily with pneumonia, has severe aortic stenosis and has end-stage renal disease. The patient was talked to about undergoing TAVR, but opted not to. He had a cardiac catheterization in April 2024 that revealed calcified coronaries and had a ATA that revealed severe aortic stenosis with a tricuspid valve with severe LV dysfunction with an ejection fraction of 35%. I spoke to the family about aortic stenosis. We might consider doing a balloon valvuloplasty to see if it would help his symptoms and if it does, then consider sending him to TAVR as he now seems to be thinking about it. OBJECTIVE: VITAL SIGNS: Afebrile. Heart rate is 50 beats per minute, blood pressure is 93/58, respiratory rate is 18. CHEST: Reveals good air entry bilaterally. HEART: Reveals first and second heart sounds. Ejection systolic murmur in the right parasternal border. ABDOMEN: Soft. EXTREMITIES: Did not reveal any edema. Peripheral pulses are felt. ASSESSMENT: 1. Severe aortic stenosis. 2. Cardiomyopathy. 3. End-stage renal disease, on hemodialysis. 4. Bradycardia. PLAN: I am going to cut back on the dose of metoprolol to 12.5 b.i.d. MMODL / IJN: [id number] /
--- NOTE | 2024-07-01 21:41 | XR ---
EXAMINATION TYPE: XR chest 2V DATE OF EXAM: 07/01/2024 8:56 PM COMPARISON: 06/28/2024 CLINICAL INDICATION: Male, 78 years old with history of CHF, TECHNIQUE: XR chest 2V view(s) obtained. FINDINGS: The heart size is normal. The pulmonary vasculature is prominent. There is a moderate left pleural effusion.. Right lower lobe infiltration may be present. Small righ t pleural effusion may be present. Findings slightly improved from comparison IMPRESSION: 1. Bilateral pleural effusions moderate on the left. 2. Prominent pulmonary vascular markings with some increased lung markings at the right base. Correla te for pulmonary edema. Atelectasis and pneumonia could be considered. 3. Findings appear comparison study [facility], Workstation: [facility], 07/01/2024 9:38 PM
[2024-07-01] MEDS: SODIUM CHLORIDE 0.9% 500 ML 500 ML IV ONE (22:08)
[2024-07-02] MEDS: BUMETANIDE 1 MG TAB PO SCH (06:35)
[2024-07-02 07:19] LABS: Anisocytosis Slight; Basophils # (A) 0.1 k/uL (0-0.2); Basophils % (A) 1 %; Eosinophils # (A) 0.1 k/uL (0-0.7); Eosinophils % (A) 2 %; HCT 28.8 % (39.0-53.0); HGB 8.9 gm/dL (13.0-17.5); Hypochromasia Marked; Lymphocytes # (A) 0.8 k/uL (1.0-4.8); Lymphocytes % (A) 11 %; MCH 33.5 pg (25.0-35.0); MCHC 30.8 g/dL (31.0-37.0); MCV 108.7 fL (80.0-100.0); Macrocytosis Marked; Mean Platelet Volume 9.8; Monocytes # (A) 0.5 k/uL (0-1.0); Monocytes % (A) 6 %; Neutrophils # (A) 5.4 k/uL (1.3-7.7); Neutrophils % (A) 78 %; Platelet Count 145 k/uL (150-450); RBC 2.65 m/uL (4.30-5.90); RDW 19.9 % (11.5-15.5); WBC 6.9 k/uL (3.8-10.6)
[2024-07-02 07:33] LABS: ALT 110 U/L (4-49); AST 199 U/L (17-59); African American GFR (CKD) 17 (>60 ml/min/1.73 sqM); Albumin 2.9 g/dL (3.5-5.0); Alkaline Phosphatase 260 U/L (38-126); Anion Gap 12 mmol/L; Blood Urea Nitrogen 24 mg/dL (9-20); Calcium 7.4 mg/dL (8.4-10.2); Carbon Dioxide 30 mmol/L (22-30); Chloride 90 mmol/L (98-107); Glucose 73 mg/dL (74-99); Non-African American GFR(CKD) 15 (>60 ml/min/1.73 sqM); Potassium 3.2 mmol/L (3.5-5.1); Sodium 132 mmol/L (137-145); Total Protein 6.3 g/dL (6.3-8.2)
[2024-07-02] MEDS: POTASSIUM CHLORIDE ER 20 MEQ TAB.ER PO STA (08:17)
[2024-07-02] MEDS: ACETAMINOPHEN TAB 325 MG TAB PO PRN (08:17)
--- NOTE | 2024-07-02 11:22 | P.PN ---
Subjective Progress Note Date: 07/02/24 SURGICAL PROGRESS NOTE CHIEF COMPLAINT: Shortness of breath HISTORY OF PRESENT ILLNESS: Patient admitted to the hospital with pneumonia, acute CHF exacerbation, EF 35% and hypoxic respiratory failure. Surgical service following in regards to cholecystitis. Patient has no abdominal pain. He is tolerating diet. Afebrile. WBC 6.9 Hgb 8.9 total bilirubin 1.0 AST 199 ALT 110 alk phos 260 LFTs remain elevated. PHYSICAL EXAM: VITAL SIGNS: Reviewed. GENERAL: Well-developed in no acute distress. ABDOMEN: Soft. Nondistended. Nontender. No tenderness palpation right upper quadrant. No rebound. No guarding. NEUROLOGIC: Alert and alert. heard of hearing ASSESSMENT: 1. Chronic cholecystitis. Patient tolerating diet. Nontender right upper quadrant. LFTs could be elevated due to hypotension and fluid overload. No evidence of acute cholecystitis. 2. Severe aortic stenosis being evaluated by cardiology for possible TAVR 3. End-stage renal disease on hemodialysis PLAN: -No surgical intervention planned -Recommend low-fat diet -Continue cardiac workup -Continue to monitor Physician Supervisor Bindery note has been reviewed by physician. Signing provider agrees with the documented findings, assessment, and plan of care. Objective - Vital Signs Vital signs: Vital Signs Temp 98.0 F 07/02/24 08:09 Pulse 63 07/02/24 08:37 Resp 24 07/02/24 08:37 BP 104/56 07/02/24 08:09 Pulse Ox 94 L 07/02/24 08:28 FiO2 50 07/02/24 08:28 Intake & Output 07/01/24 07/02/24 07/02/24 18:59 06:59 18:59 Intake Total 980 30 10 Output Total 3500 Balance -2520 30 10 Weight 60.5 kg Intake: IV 30 10 Invasive Line 1 20 Invasive Line 2 10 10 Oral 480 Hemodialysis 500 Output: Hemodialysis 2000 Hemodialysis Net Amount 1500 Other: Voiding Method Diaper Diaper Diaper - Labs CBC & Chem 7: 07/02/24 06:41 07/02/24 06:41 Labs: Abnormal Lab Results - Last 24 Hours (Table) 07/02/24 07/02/24 Range/Units 06:41 06:41 RBC 2.65 L (4.30-5.90) m/uL Hgb 8.9 L (13.0-17.5) gm/dL Hct 28.8 L (39.0-53.0) % MCV 108.7 H (80.0-100.0) fL MCHC 30.8 L (31.0-37.0) g/dL RDW 19.9 H (11.5-15.5) % Plt Count 145 L (150-450) k/uL Lymphocytes # 0.8 L (1.0-4.8) k/uL Macrocytosis Marked A Sodium 132 L (137-145) mmol/L Potassium 3.2 L (3.5-5.1) mmol/L Chloride 90 L (98-107) mmol/L BUN 24 H (9-20) mg/dL Creatinine 3.62 H (0.66-1.25) mg/dL Glucose 73 L (74-99) mg/dL Calcium 7.4 L (8.4-10.2) mg/dL AST 199 H (17-59) U/L ALT 110 H (4-49) U/L Alkaline Phosphatase 260 H (38-126) U/L Albumin 2.9 L (3.5-5.0) g/dL Microbiology - Last 24 Hours (Table) 06/28/24 18:33 Gram Stain - Final Sputum Sputum Culture - Final Pseudomonas aeruginosa Corynebacterium species Tamera glabrata 06/27/24 22:07 Blood Culture - Preliminary Blood
--- NOTE | 2024-07-02 12:49 | P.PN ---
Subjective HISTORY OF PRESENT ILLNESS: This is a 78-year-old male with a past medical history significant for coronary artery disease, end-stage renal disease on hemodialysis, cardiomyopathy, and CAD. Patient follows in the office with Dr. Phillips. We have been asked to see the patient in consultation for congestive heart failure and elevated troponins. Eduardo baker examined at the bedside in the emergency room. Patient presented to the hospital with a chief complaint of shortness of breath. Patient reports he has been coughing frequently with sputum production. He also states his blood pressure has been running on the lower side. He denied any chest pain or pressure. Patient was found to have bibasilar pneumonia and was started on antibiotics. He continues to have a significant cough with sputum production at the time of examination. It is noted that the patient has severe aortic stenosis. When he was in the office in May 2024 for him and his daughter had a long conversation regarding possible aortic valve replacement and he had decided not to pursue valve replacement at that time. DIAGNOSTICS: - EKG reveals sinus mechanism with frequent PVCs. - Chest xray similar suspected bibasilar pneumonia. - Laboratory data: WBC 5.4. Hemoglobin 7.8. Platelet count 93. Sodium 135. Potassium 4.4. BUN 44. Creatinine 5.08. Troponin 0.440. 0.450. 0.426. proBNP 123,000 - Current home cardiac medications include Lipitor 80 mg at night, Bumex 2 mg daily, midodrine 5 mg 3 times a day. - Most recent echocardiogram obtained in April 2024 revealing ejection fraction 30 to 35%, mild to moderate mitral regurgitation, severe aortic st enosis, severe tricuspid regurgitation, moderate concentric LVH -Patient underwent ATA in April 2024 revealing severe aortic stenosis involving tricuspid aortic valve is heavily calcified. Cardiomyopathy with ejection fraction 35% - Cardiac catheterization history: April 2024 revealing calcified coronaries without focal obstructive disease, heavily calcified LAD. There is what appears like a stent in the proximal LAD that is patent. 06/29/2024 Patient examined this morning in the emergency room. Patient currently denies chest pain or pressure. He reports improvement in his shortness of breath. He also reports improvement in his cough. Bedside telemetry reveals sinus tachycardia. Blood pressure 111/63. 06/30/2024 Patient examined this morning at the bedside. Patient currently denies any chest pain or pressure. He denies shortness of breath. He remains on IV diuretics. Creatinine today 4.03. Blood pressure 98/50. Heart rate is in the 60s70s. 07/02/2024 Patient examined this morning at the bedside. Patient currently denies any chest pain or pressure. He denies any shortness of breath. Vital signs are stable. Blood pressure this morning 104/56. PHYSICAL EXAM: VITAL SIGNS: Reviewed. GENERAL: Well-developed in no acute distress. HEENT: Head is normocephalic. Pupils are equal, round. Sclerae anicteric. Mucous membranes of the mouth are moist. Neck supple. No JVD or thyromegaly LUNGS: Respirations even and unlabored. Lungs diminished with rhonchi bilaterall y HEART: Regular rate and rhythm. S1 and S2 heard. Systolic murmur noted. ABDOMEN: Soft. Nondistended. Nontender. EXTREMITIES: Normal range of motion. No clubbing or cyanosis. Peripheral pulses intact. No lower extremity edema NEUROLOGIC: Awake and alert. Oriented x 3. ASSESSMENT: Basilar pneumonia per chest x-ray Acute hypoxic respiratory failure requiring supplemental oxygen Severe aortic stenosis Acute on chronic heart failure with reduced EF Elevated troponins, type II RI, no evidence of acute coronary syndrome End-stage renal disease on hemodialysis Coronary artery disease with previous stenting Ischemic cardiomyopathy PLAN: An acute coronary event has been ruled out No need to repeat echocardiogram Continue current cardiac medications Continue telemetry monitoring Patient may follow-up postdischarge with Dr. Phillips and can be referred to TAVR clinic when his acute issues have resolved. Consider balloon valvuloplasty before TAVR to see if patient has any improvement in his symptoms. Patient is currently stable from a cardiac perspective Further recommendations pending patient course Nurse practitioner note has been reviewed by physician. Signing provider agrees with the documented findings, assessment, and plan of care documented by BRAZER FURNACE as a scribe. Objective - Vital Signs Vital signs: Vital Signs Temp 98.1 F 07/02/24 11:34 Pulse 68 07/02/24 11:53 Resp 18 07/02/24 11:53 BP 104/56 07/02/24 08:09 Pulse Ox 94 L 07/02/24 08:28 FiO2 50 07/02/24 08:28 Intake & Output 07/01/24 07/02/24 07/02/24 18:59 06:59 18:59 Intake Total 980 30 10 Output Total 3500 Balance -2520 30 10 Weight 60.5 kg Intake: IV 30 10 Invasive Line 1 20 Invasive Line 2 10 10 Oral 480 Hemodialysis 500 Output: Hemodialysis 2000 Hemodialysis Net Amount 1500 Other: Voiding Method Diaper Diaper Diaper - Labs CBC & Chem 7: 07/02/24 06:41 07/02/24 06:41 Labs: Abnormal Lab Results - Last 24 Hours (Table) 07/02/24 07/02/24 Range/Units 06:41 06:41 RBC 2.65 L (4.30-5.90) m/uL Hgb 8.9 L (13.0-17.5) gm/dL Hct 28.8 L (39.0-53.0) % MCV 108.7 H (80.0-100.0) fL MCHC 30.8 L (31.0-37.0) g/dL RDW 19.9 H (11.5-15.5) % Plt Count 145 L (150-450) k/uL Lymphocytes # 0.8 L (1.0-4.8) k/uL Macrocytosis Marked A Sodium 132 L (137-145) mmol/L Potassium 3.2 L (3.5-5.1) mmol/L Chloride 90 L (98-107) mmol/L BUN 24 H (9-20) mg/dL Creatinine 3.62 H (0.66-1.25) mg/dL Glucose 73 L (74-99) mg/dL Calcium 7.4 L (8.4-10.2) mg/dL AST 199 H (17-59) U/L ALT 110 H (4-49) U/L Alkaline Phosphatase 260 H (38-126) U/L Albumin 2.9 L (3.5-5.0) g/dL Microbiology - Last 24 Hours (Table) 06/28/24 18:33 Gram Stain - Final Sputum Sputum Culture - Final Pseudomonas aeruginosa Corynebacterium species Tamera glabrata 06/27/24 22:07 Blood Culture - Preliminary Blood
[2024-07-02] MEDS: CEFEPIME 2 GM in SODIUM CHLORIDE 0.9% 100 ML IVPB SCH (12:59)
--- NOTE | 2024-07-02 14:36 | P.PN ---
Subjective Progress Note Date: 07/02/24 Principal diagnosis: Shortness of breath. Patient is a 78-year-old male with past medical history significant for severe aortic stenosis, congestive heart failure, kidney transplant, end-stage renal disease, and recent fall resulting in left scapular fracture. PCP is Dr. Pereira. He presented emergency department yesterday evening, reportedly with a chief complaint of short of breath. He is hard of hearing, making difficult to communicate. When asked about his shortness of breath, he states that has been ongoing for almost a year. He is chronically oxygen pendant on 2 to 3 L/min nasal cannula while at home. He is currently residing at [facility] for rehab after a fall resulting in a left scapular fracture and T9 compression fracture on June 16. He was transferred to [facility] as the patient was felt to be high surgical risk. Patient states that they could not do anything for him there. He believes the reason he was sent in from [facility] was for low blood pressures. CBC: WBC count 7.5, hemoglobin 8.1, hematocrit 24.9, platelets 116. CMP: Sodium 134, potassium 4.7, chloride 95, serum bicarb 31, BUN 41, creatinine 4.36, glucose 100. Lactic 1.8. LFTs mildly elevated. Troponin 0.44. NT proBNP 123,000. EKG: Normal sinus rhythm, rate 82 bpm, interventricular conduction delay, with frequent PVCs. Patient states that his dyspnea is chronic in nature. He is currently resting in bed on 3 L/min nasal cannula which she states he wears at home. Chest x-ray interpreted by me to show cardiomegaly, likely bilateral small pleural effusions, right hilar and upper lobe opacities or asymmetric pulmonary edema. Patient is currently being evaluated in the emergency department. Patient denies any weight gain or lower extremity swelling. Known to have end-stage renal disease and undergoes hemodialysis on a Friday, , Friday schedule. Denies missing any treatments. States he does not make urine, but does take Bumex on outpatient basis. He is also known to have severe aortic valve stenosis and cardiomyopathy. Most recent echocardiogram from April, estimating ejection fraction of 30 to 35%, as well as, grade 3 diastolic dysfunction, severe pulmonary hypertension with a mean gradient of 71 mmHg, as well as, severe aortic stenosis with mean gradient 38 mmHg. He denies any infectious- like symptoms such as fevers, chills, chest pain, change in his chronic cough, purulent sputum production. Does endorse an occasional cough with clear sputum. Viral screen negative for influenza, RSV, COVID. Current most recent vitals: Temperature 99 F, heart rate 77 bpm, blood pressure 119/71 mmHg, nontachypneic, SpO2 97% on 3 L/min nasal cannula. Nontoxic appearance. Progress note dated June 29, 2024. 78-year-old male seen today again in the emergency department, room 26. His procalcitonin was a bit elevated at 0.91. He is on 4 L of oxygen. He is receiving azithromycin, and Rocephin. His ejection fraction was 35 to 40%. The patient is being treated for a combination of both heart failure, systolic in nature, and possible pneumonia. Clinically, he looks better today. He is sitting in a chair next to his hospital bed. Current labs include a white count 8, hemoglobin 8.6, hematocrit 26.6, and a platelet count of 124,000. Sodium 135, potassium 5.3, chlorides 95, CO2 27, BUN 59, creatinine 6.68. Calcium is 8.2. Albumin is 3.1. Viral studies were negative. Blood and sputum cultures are currently pending. Progress note dated June 30, 2024. 78-year-old male seen today in room 376. He is resting comfortably in bed. He is on saline at 10 cc an hour, and getting nasal O2 at 3 L. He is comfortable, without any distress or difficulty. He was initially seen in the emergency department. Current labs include a white count 6.5, hemoglobin 8.2, hematocrit 26.4, and a platelet count of 104,000. Sodium 130, potassium 4.6, chloride 94, CO2 29, BUN 34, creatinine 4.03. Calcium is 8. AST is 193. ALT is 104. Procalcitonin level was 0.91. Progress note dated July 01, 2024. 78-year-old male seen today in room 376. The patient is currently undergoing hemodialysis. The goal today is removal of 1.5 L. His blood pressure according to the dialysis nurse, was a little soft. He is currently on 2 L of oxygen. He is not receiving any IV fluids. Clinically, he feels better, and his breathing is improved. White count 6.8, hemoglobin 8.3, hematocrit 26.5, and platelet cou nt 121,000. Sodium 131, potassium 4.6, chlorides 92, CO2 29, BUN 42, and creatinine 5.49. Calcium is 7.7. The rest of his labs have been reviewed. Sputum sample showing gram-negative bacilli, Tamera glabrata, and corynebacterium species. Patient remains on Rocephin. Progress note dated July 02, 2024. 78-year-old male seen today in room 376. Many family members are in the room, at the bedside. Currently, the patient is on nasal O2, at 3 L. Saturations are 94%. He did wear BiPAP last night, with settings of 12/5, 50%. The patient's sputum sample was positive for Pseudomonas. Rocephin will be discontinued, in favor of cefepime. The patient was admitted with a diagnosis of hypoxemic respiratory failure, secondary to CHF, and possible pneumonia. Current laboratory data includes a white count 6.9, hemoglobin 8.9, hematocrit 28.8, and a platelet count of 145,000. Sodium 132, potassium 3.2, chlorides 90, CO2 30, BUN 24, creatinine 3.62. No chest x-ray today. The chest x-ray from July 01 has been reviewed. Objective - Vital Signs Vital signs: Vital Signs Temp 98.1 F 07/02/24 11:34 Pulse 68 07/02/24 11:53 Resp 18 07/02/24 11:53 BP 104/56 07/02/24 08:09 Pulse Ox 94 L 07/02/24 08:28 FiO2 50 07/02/24 08:28 Intake & Output 07/01/24 07/02/24 07/02/24 18:59 06:59 18:59 Intake Total 980 30 20 Output Total 3500 Balance -2520 30 20 Weight 60.5 kg Intake: IV 30 20 Invasive Line 1 20 Invasive Line 2 10 20 Oral 480 Hemodialysis 500 Output: Hemodialysis 2000 Hemodialysis Net Amount 1500 Other: Voiding Method Diaper Diaper Diaper - Exam No acute distress, oriented 3. Very hard of hearing. Currently on 4 L nasal cannula. HEENT examination is grossly unremarkable. Mucous membranes are moist. No oral lesions. Neck supple. Full range of motion. No adenopathy thyromegaly or neck vein distention. Cardiovascular examination reveals regular rhythm rate. S1-S2 normal. No S3 or S4. Soft systolic murmur is noted. Heart sounds are distant. Lungs reveal bibasilar crackles, and diffuse rhonchi. Breath sounds are equal. No wheezes. Abdomen soft bowel sounds are heard. No masses or tenderness. Extremities are intact. No cyanosis clubbing or edema. Skin is without rash or lesion. Neurologic examination is brief but nonfocal. - Labs CBC & Chem 7: 07/02/24 06:41 07/02/24 06:41 Labs: Abnormal Lab Results - Last 24 Hours (Table) 07/02/24 07/02/24 Range/Units 06:41 06:41 RBC 2.65 L (4.30-5.90) m/uL Hgb 8.9 L (13.0-17.5) gm/dL Hct 28.8 L (39.0-53.0) % MCV 108.7 H (80.0-100.0) fL MCHC 30.8 L (31.0-37.0) g/dL RDW 19.9 H (11.5-15.5) % Plt Count 145 L (150-450) k/uL Lymphocytes # 0.8 L (1.0-4.8) k/uL Macrocytosis Marked A Sodium 132 L (137-145) mmol/L Potassium 3.2 L (3.5-5.1) mmol/L Chloride 90 L (98-107) mmol/L BUN 24 H (9-20) mg/dL Creatinine 3.62 H (0.66-1.25) mg/dL Glucose 73 L (74-99) mg/dL Calcium 7.4 L (8.4-10.2) mg/dL AST 199 H (17-59) U/L ALT 110 H (4-49) U/L Alkaline Phosphatase 260 H (38-126) U/L Albumin 2.9 L (3.5-5.0) g/dL Microbiology - Last 24 Hours (Table) 06/28/24 18:33 Gram Stain - Final Sputum Sputum Culture - Final Pseudomonas aeruginosa Corynebacterium species Tamera glabrata 06/27/24 22:07 Blood Culture - Preliminary Blood Assessment and Plan Assessment: Acute on chronic hypoxemic respiratory failure, currently on 3 L/min nasal cannula; chest x-ray interpreted by me to show cardiomegaly, likely bilateral small pleural effusions, right hilar and upper lobe opacities or asymmetric pulmonary edema. NT proBNP significantly elevated at 123,000. Suspect exacerbation of systolic congestive heart failure. End-stage renal disease, undergoes hemodialysis on a Friday, , Friday schedule. History of renal transplant. Anemia of chronic disease, hemoglobin stable at 8.1 g/dL. Elevated troponins, rule out non-ST elevation OR. History of severe aortic stenosis. History of heart failure with reduced ejection fraction. Chronic hypoxemic respiratory failure, normally on 2 to 3 L/min nasal cannula 30/12. History of hyperlipidemia. History of traumatic fall, resulting in left scapular fracture and acute compression fracture of T9 without retropulsion. Plan: Plan dated June 29, 2024. The patient is seen today in room 26, in the emergency department. He appears to be doing a bit better today than yesterday. He is sitting in a chair next to the hospital bed. He is currently on 4 L of oxygen. His ejection fraction is quite low. He is on azithromycin and Rocephin for presumed pneumonia. His procalcitonin level was a bit elevated at 0.91. Labs, x-rays, and medications are reviewed. We will continue to follow make recommendations where appropriate. Prognosis is guarded. The patient is extremely hard of hearing. Plan dated June 30, 2024. The patient is seen today in room 376. The patient is resting comfortably in be d. He continues on O2 at 3 L. He is getting saline at 10 cc an hour. The patient does have a history of aortic stenosis. He has a typical murmur. His admission diagnoses included both heart failure, and probable pneumonia. Labs, x-rays, and medications are reviewed. The patient's procalcitonin level was elevated at 0.91. We will continue to follow the patient, and make recommendations along the way. Plan dated July 01, 2024. The patient is seen today in room 376. He is having hemodialysis as we speak. The plan is to remove 1.5 L of fluid. He is currently on 2 L of oxygen. He is not receiving any IV fluids. Labs, x-rays, and all medications have been reviewed. The patient continues on Rocephin. His procalcitonin level was elevated at 0.91. He is basically being treated for heart failure/fluid overload, and possible pneumonia. Clinically, he is improved. Plan dated July 02, 2024. The patient is seen today in room 376. Family members are at the bedside. The patient has a history of shortness of breath, with acute hypoxemic respiratory failure, secondary to CHF, and pneumonia. He has been treated for both. Sputum was positive for Pseudomonas. Rocephin is discontinued in favor of cefepime. All labs, x-rays, and medications are reviewed. The patient is a DO NOT RESUSCITATE patient. We will continue to follow make recommendations along the way. Prognosis is certainly guarded. Dictation was produced using [employer] dictation software. Please excuse any grammatical, word or spelling errors. Time with Patient: Less than 30
--- NOTE | 2024-07-02 16:01 | P.PN ---
Subjective Progress Note Date: 07/02/24 Patient is an 78-year-old male with past medical history of ESRD status post kidney transplant on hemodialysis, dyslipidemia, severe aortic stenosis, HFrEF EF 30 to 35%, severe pulmonary hypertension who presents to the ED shortness of breath. Per ED note patient is a poor historian, presented with shortness of breath, chest pain and pain with inspiration. At the time of my assessment patient was confused and was not able to provide much history. He could not recall why he was at the hospital. He did report mild shortness of breath at the time of interview but had no additional complaints. He denied experiencing chest discomfort, shortness of breath, cough, nausea, vomiting, abdominal pain, diarrhea. Of note the patient was recently admitted for clavicular fracture and discharged 1 week ago. 06/29/2024 Patient seen and examined at bedside. No events overnight. He states that his shortness of breath is improving. He is to have dialysis today. 06/30/2024 Patient seen and examined at bedside. Hemodialysis yesterday with 2 L taken off. He was relatively hypotensive but remains asymptomatic. Shortness of breath improving. 07/01/2024 Patient seen and examined at bedside. Hemodialysis today. He continues to be hypotensive and asymptomatic on midodrine. Denies chest pain or shortness of breath. Denies abdominal pain. Surgery consulted, no intervention planned. PT to evaluate tomorrow. 07/02/2024 Patient seen and examined at bedside. Overnight he was hypotensive and given 5 00 mL liter bolus and placed on BiPAP per recommendations of pulmonology. Hemodialysis yesterday removed 1.5 L in total. Denies chest pain, shortness of breath or abdominal pain. Had a lengthy discussion at bedside with family and patient about goals of care determined it was best to obtain more information from hospice care at this time. Review of systems: Pertinent positives and negatives as discussed in HPI, a complete review of systems was performed and all other systems are negative. Physical examination: Vital signs reviewed General: Well, non distressed, appears at stated age, hard of hearing Derm: warm, dry, intact, large hematoma noted on left chest Head: atraumatic, normocephalic, symmetric Eyes: Did not assess Mouth: no lip lesion, mucus membranes moist Cardiovascular: S1 S2 reg, systolic ejection murmur loudest at RUSB Lungs: diminished breath sounds at bases Abdominal: soft, non-tender to palpation, nondistended Extremities: No cyanosis, clubbing, or pedal edema. Psych: well appearing, appropriate affect Neuro: Alert and oriented, no gross focal deficits noted on neurological examination Today's findings: Labs sodium 132, potassium 3.2, chloride 90, BUN 24, creatinine 3.62, glucose 73 , AST 199, ALT 110, ALP 260 Chest x-ray findings of bilateral pleural effusions moderate on the left, prominent pulmonary vascular markings with some increased markings at right base possible pulmonary edema and atelectasis. Sputum culture positive for Pseudomonas Assessment/Plan: Patient is a 78-year-old male with past medical history of ESRD on hemodialysis, dyslipidemia, aortic stenosis, HFrEF, severe pulmonary hypertension who presented with shortness of breath. Case was discussed with the ED physician and patient will be admitted to internal medicine service for further evaluation. Acute on chronic hypoxic respiratory failure, suspect multifactorial in setting of fluid overload secondary to ESRD and systolic CHF exacerbation (HFrEF 30 to 35%), unable to rule out community-acquired pneumonia Hypotension Severe aortic stenosis Generalized weakness Initial CXR shows suspected bibasilar opacities NT proBNP 123,000 Resume home Bumex 2 mg p.o. daily Begin metoprolol tartrate 25 mg twice daily Procalcitonin 0.91 continue IV ceftriaxone 2 g daily, and cefepime 1 mg daily Continue bronchodilators Cardiac monitoring and supplemental oxygen as needed. Baseline O2 2 to 3 L. Hemodialysis schedule of Friday, , Friday. Midodrine 10 mg 3 times daily, will consider discontinuing PT OT consulted Nephrology following for hemodialysis Cardiology following, will follow-up outpatient Pulmonology following Hospice consulted Hypokalemia Given 40 mEq of potassium chloride Possible cholecystitis Transaminitis Initial AST 148, ALT 76, ALP 236. Continue to monitor LFTs Discontinued IV Flagyl General Surgery following, no intervention planned at this time Anemia of chronic disease Hemoglobin of 8.1 Continue to monitor Transfuse if less than 7 NSTEMI type II, possibly secondary to ESRD with CHF exacerbation ACS ruled out by cardiology Peak troponin 0.450, down trended Cardiac telemetry Cardiology following Chronic: Gout allopurinol Dyslipidemia Continue Lipitor 80 mg p.o. at bedtime F: P.o. E: Replete as needed N: Heart healthy A: Fall precautions, PT OT assessment DVT prophylaxis: Heparin 5000 units subcu every 8 hours CODE STATUS: No code Discussed with: Patient Anticipated discharge place: Hospice Patient is severely ill, prognosis guarded. I have seen and evaluated the patient today. Discussed with the resident and agree with the residents finding and plan as documented in the resident's note. Changes highlighted in blue font. Objective - Vital Signs Vital signs: Vital Signs Temp 97.8 F 07/02/24 03:49 Pulse 87 07/02/24 03:49 Resp 19 07/02/24 03:49 BP 90/51 07/02/24 03:49 Pulse Ox 100 07/02/24 03:49 FiO2 50 07/02/24 03:49 Intake & Output 07/01/24 07/02/24 07/02/24 18:59 06:59 18:59 Intake Total 980 30 Output Total 3500 Balance -2520 30 Weight 60.5 kg Intake: IV 30 Invasive Line 1 20 Invasive Line 2 10 Oral 480 Hemodialysis 500 Output: Hemodialysis 2000 Hemodialysis Net Amount 1500 Other: Voiding Method Diaper Diaper - Labs CBC & Chem 7: 07/02/24 06:41 07/02/24 06:41 Labs: Abnormal Lab Results - Last 24 Hours (Table) 07/02/24 Range/Units 06:41 Sodium 132 L (137-145) mmol/L Potassium 3.2 L (3.5-5.1) mmol/L Chloride 90 L (98-107) mmol/L BUN 24 H (9-20) mg/dL Creatinine 3.62 H (0.66-1.25) mg/dL Glucose 73 L (74-99) mg/dL Calcium 7.4 L (8.4-10.2) mg/dL AST 199 H (17-59) U/L ALT 110 H (4-49) U/L Alkaline Phosphatase 260 H (38-126) U/L Albumin 2.9 L (3.5-5.0) g/dL Microbiology - Last 24 Hours (Table) 06/27/24 22:07 Blood Culture - Preliminary Blood 06/28/24 18:33 Gram Stain - Preliminary Sputum Sputum Culture - Preliminary Gram Neg Bacilli Corynebacterium species Tamera glabrata
--- NOTE | 2024-07-02 20:17 | P.PN ---
Subjective Patient is seen for follow-up for end-stage renal disease. He is more awake today and answering questions appropriately. Family is present at bedside. Objective - Vital Signs Vital signs: Vital Signs Temp 97.9 F 07/02/24 17:06 Pulse 70 07/02/24 17:06 Resp 16 07/02/24 17:06 BP 93/55 07/02/24 17:06 Pulse Ox 97 07/02/24 17:06 FiO2 50 07/02/24 15:52 Intake & Output 07/02/24 07/02/24 07/03/24 06:59 18:59 06:59 Intake Total 30 610 Output Total 0 Balance 30 610 Weight 60.5 kg Intake: IV 30 20 Invasive Line 1 20 Invasive Line 2 10 20 Intake, IV Titration 50 Amount Cefepime 1 gm In Sodium 50 Chloride 0.9% 50 ml @ 12. 5 mls/hr IVPB DAILY [facility] Rx#:[id number] Oral 540 Output: Urine 0 Other: Voiding Method Diaper Diaper # Bowel Movements 0 - Exam Patient is awake, comfortable, no acute distress. Examination of the heart S1 and S2 Examination of the lungs bilateral breath sounds are heard Abdomen is soft nontender Examination of the lower extremities shows no significant edema, chronic skin changes - Labs CBC & Chem 7: 07/02/24 06:41 07/02/24 06:41 Labs: Abnormal Lab Results - Last 24 Hours (Table) 07/02/24 07/02/24 Range/Units 06:41 06:41 RBC 2.65 L (4.30-5.90) m/uL Hgb 8.9 L (13.0-17.5) gm/dL Hct 28.8 L (39.0-53.0) % MCV 108.7 H (80.0-100.0) fL MCHC 30.8 L (31.0-37.0) g/dL RDW 19.9 H (11.5-15.5) % Plt Count 145 L (150-450) k/uL Lymphocytes # 0.8 L (1.0-4.8) k/uL Macrocytosis Marked A Sodium 132 L (137-145) mmol/L Potassium 3.2 L (3.5-5.1) mmol/L Chloride 90 L (98-107) mmol/L BUN 24 H (9-20) mg/dL Creatinine 3.62 H (0.66-1.25) mg/dL Glucose 73 L (74-99) mg/dL Calcium 7.4 L (8.4-10.2) mg/dL AST 199 H (17-59) U/L ALT 110 H (4-49) U/L Alkaline Phosphatase 260 H (38-126) U/L Albumin 2.9 L (3.5-5.0) g/dL Microbiology - Last 24 Hours (Table) 06/28/24 18:33 Gram Stain - Final Sputum Sputum Culture - Final Pseudomonas aeruginosa Corynebacterium species Tamera glabrata Assessment and Plan Assessment: 1. End-stage renal disease maintained on hemodialysis on Friday schedule via left upper extremity AV fistula. 2. Acute hypoxic respiratory failure, improved 3. Pneumonia maintained on antibiotics. 4. Fluid overload. 5. Peripheral arterial disease. 6. Anemia of chronic kidney disease. 7. Chronic kidney disease mineral bone disease maintained on calcitriol and P hosLo. 8. Acute on chronic systolic CHF with severe aortic stenosis and pulmonary hypertension. 9. Recent clavicular fracture. Plan: Hemodialysis in a.m. Continue calcitriol Add Aranesp
[2024-07-02] MEDS: DARBEPOETIN ALFA 100MCG/0.5ML SYRINGE SQ SCH (22:48)
--- NOTE | 2024-07-02 23:25 | XR ---
EXAMINATION TYPE: XR ribs RT DATE OF EXAM: 07/02/2024 6:50 PM COMPARISON: 07/01/2024 CLINICAL INDICATION: Male, 78 years old with history of rib pain, hx of fall, pain TECHNIQUE: 2 view(s) obtained. FINDINGS: There may be a minimally displaced eighth rib fracture at the right lateral rib. Prior old fracture o f the ninth rib is present. There is a small pleural effusion evident. No pneumothorax is evident on these images. Chronic rotato r cuff tear of the right shoulder is likely present. There is severe subluxation of the humeral head superior from the glenoid. IMPRESSION: 1. Old ninth rib fracture. 2. 8th rib fracture may be acute and minimally displaced. 3. Right pleural fluid 4. Subluxation of the humeral head, correlate for chronic rotator cuff tear versus dislocation [facility], Workstation: [id number], 07/02/2024 11:23 PM
[2024-07-02] MEDS: bisacodyL 10 MG SUPP RECTAL PRN (23:51)
[2024-07-03 06:24] LABS: Anisocytosis Slight; Basophils % (A) 1 %; Eosinophils # (A) 0.1 k/uL (0-0.7); Eosinophils % (A) 1 %; HCT 29.9 % (39.0-53.0); HGB 9.4 gm/dL (13.0-17.5); Hypochromasia Marked; Lymphocytes # (A) 0.8 k/uL (1.0-4.8); Lymphocytes % (A) 11 %; MCH 34.1 pg (25.0-35.0); MCHC 31.6 g/dL (31.0-37.0); MCV 107.7 fL (80.0-100.0); Mean Platelet Volume 10.2; Monocytes # (A) 0.5 k/uL (0-1.0); Monocytes % (A) 7 %; Neutrophils # (A) 5.8 k/uL (1.3-7.7); Neutrophils % (A) 79 %; Platelet Count 168 k/uL (150-450); RBC 2.77 m/uL (4.30-5.90); RDW 19.9 % (11.5-15.5); WBC 7.4 k/uL (3.8-10.6)
[2024-07-03 07:05] LABS: Macrocytosis Marked
[2024-07-03 07:23] LABS: ALT 124 U/L (4-49); African American GFR (CKD) 13 (>60 ml/min/1.73 sqM); Anion Gap 11 mmol/L; Blood Urea Nitrogen 36 mg/dL (9-20); Calcium 7.7 mg/dL (8.4-10.2); Carbon Dioxide 26 mmol/L (22-30); Chloride 95 mmol/L (98-107); Glucose 89 mg/dL (74-99); Non-African American GFR(CKD) 11 (>60 ml/min/1.73 sqM); Sodium 132 mmol/L (137-145); Total Bilirubin 1.2 mg/dL (0.2-1.3); Total Protein 6.6 g/dL (6.3-8.2)
[2024-07-03 07:47] LABS: Potassium 4.9 mmol/L (3.5-5.1)
[2024-07-03 07:48] LABS: AST 264 U/L (17-59); Alkaline Phosphatase 246 U/L (38-126)
--- NOTE | 2024-07-03 08:47 | P.PN ---
Progress Note - Text Progress Note Date: 07/03/24 CHIEF COMPLAINT: Shortness of breath HISTORY OF PRESENT ILLNESS: Patient admitted to the hospital with pneumonia, acute CHF exacerbation, EF 35% and hypoxic respiratory failure. Surgical service following in regards to cholecystitis. Patient has no abdominal pain. He is tolerating diet. Afebrile. No acute events overnight. PHYSICAL EXAM: VITAL SIGNS: Reviewed. GENERAL: Well-developed in no acute distress. ABDOMEN: Soft. Nondistended. Nontender. No tenderness palpation right upper quadrant. No rebound. No guarding. NEUROLOGIC: Alert and alert. heard of hearing ASSESSMENT: 1. Chronic cholecystitis. Patient tolerating diet. Nontender right upper quadrant. LFTs could be elevated due to hypotension and fluid overload. No evidence of acute cholecystitis. 2. Severe aortic stenosis being evaluated by cardiology for possible TAVR 3. End-stage renal disease on hemodialysis PLAN: -No surgical intervention planned -Recommend low-fat diet -Continue cardiac workup -Continue to monitor Nakul Presley DO [facility] [phone]
--- NOTE | 2024-07-03 11:13 | P.PN ---
Subjective HISTORY OF PRESENT ILLNESS: This is a 78-year-old male with a past medical history significant for coronary artery disease, end-stage renal disease on hemodialysis, cardiomyopathy, and CAD. Patient follows in the office with Dr. Phillips. We have been asked to see the patient in consultation for congestive heart failure and elevated troponins. Eduardo baker examined at the bedside in the emergency room. Patient presented to the hospital with a chief complaint of shortness of breath. Patient reports he has been coughing frequently with sputum production. He also states his blood pressure has been running on the lower side. He denied any chest pain or pressure. Patient was found to have bibasilar pneumonia and was started on antibiotics. He continues to have a significant cough with sputum production at the time of examination. It is noted that the patient has severe aortic stenosis. When he was in the office in May 2024 for him and his daughter had a long conversation regarding possible aortic valve replacement and he had decided not to pursue valve replacement at that time. DIAGNOSTICS: - EKG reveals sinus mechanism with frequent PVCs. - Chest xray similar suspected bibasilar pneumonia. - Laboratory data: WBC 5.4. Hemoglobin 7.8. Platelet count 93. Sodium 135. Potassium 4.4. BUN 44. Creatinine 5.08. Troponin 0.440. 0.450. 0.426. proBNP 123,000 - Current home cardiac medications include Lipitor 80 mg at night, Bumex 2 mg daily, midodrine 5 mg 3 times a day. - Most recent echocardiogram obtained in April 2024 revealing ejection fraction 30 to 35%, mild to moderate mitral regurgitation, severe aortic st enosis, severe tricuspid regurgitation, moderate concentric LVH -Patient underwent ATA in April 2024 revealing severe aortic stenosis involving tricuspid aortic valve is heavily calcified. Cardiomyopathy with ejection fraction 35% - Cardiac catheterization history: April 2024 revealing calcified coronaries without focal obstructive disease, heavily calcified LAD. There is what appears like a stent in the proximal LAD that is patent. 06/29/2024 Patient examined this morning in the emergency room. Patient currently denies chest pain or pressure. He reports improvement in his shortness of breath. He also reports improvement in his cough. Bedside telemetry reveals sinus tachycardia. Blood pressure 111/63. 06/30/2024 Patient examined this morning at the bedside. Patient currently denies any chest pain or pressure. He denies shortness of breath. He remains on IV diuretics. Creatinine today 4.03. Blood pressure 98/50. Heart rate is in the 60s70s. 07/02/2024 Patient examined this morning at the bedside. Patient currently denies any chest pain or pressure. He denies any shortness of breath. Vital signs are stable. Blood pressure this morning 104/56. 07/03/2024 Patient examined this morning at the bedside. Patient is currently undergoing hemodialysis at the time of examination. Patient currently denies any chest pain or pressure. He denies any shortness of breath. Vital signs are stable. PHYSICAL EXAM: VITAL SIGNS: Reviewed. GENERAL: Well-developed in no acute distress. HEENT: Head is normocephalic. Pupils are equal, round. Sclerae anicteric. Mucous membranes of the mouth are moist. Neck supple. No JVD or thyromegaly LUNGS: Respirations even and unlabored. Lungs diminished with rhonchi bilaterally HEART: Regular rate and rhythm. S1 and S2 heard. Systolic murmur noted. ABDOMEN: Soft. Nondistended. Nontender. EXTREMITIES: Normal range of motion. No clubbing or cyanosis. Peripheral pulses intact. No lower extremity edema NEUROLOGIC: Awake and alert. Oriented x 3. ASSESSMENT: Basilar pneumonia per chest x-ray Acute hypoxic respiratory failure requiring supplemental oxygen Severe aortic stenosis Acute on chronic heart failure with reduced EF Elevated troponins, type II PR, no evidence of acute coronary syndrome End-stage renal disease on hemodialysis Coronary artery disease with previous stenting Ischemic cardiomyopathy PLAN: An acute coronary event has been ruled out No need to repeat echocardiogram Continue current cardiac medications Continue telemetry monitoring Patient may follow-up postdischarge with Dr. Phillips and can be referred to TAVR clinic when his acute issues have resolved. Consider balloon valvuloplasty before TAVR to see if patient has any improvement in his symptoms. Case discussed with primary medicine this morning. Patient now considering hospice. Hospice consult has been placed. Await further input. Patient is currently stable from a cardiac perspective Further recommendations pending patient course Nurse practitioner note has been reviewed by physician. Signing provider agrees with the documented findings, assessment, and plan of care documented by [employer] as a scribe. Objective - Vital Signs Vital signs: Vital Signs Temp 97.7 F 07/03/24 08:35 Pulse 68 07/03/24 08:59 Resp 20 07/03/24 08:35 BP 99/55 07/03/24 08:35 Pulse Ox 99 07/03/24 08:35 FiO2 50 07/02/24 15:52 Intake & Output 07/02/24 07/03/24 07/03/24 18:59 06:59 18:59 Intake Total 610 10 110 Output Total 0 Balance 610 10 110 Intake: IV 20 10 10 Invasive Line 2 20 10 10 Intake, IV Titration 50 Amount Cefepime 1 gm In Sodium 50 Chloride 0.9% 50 ml @ 12. 5 mls/hr IVPB DAILY [facility] Rx#:[id number] Oral 540 100 Output: Urine 0 Other: Voiding Method Diaper Diaper Diaper # Bowel Movements 0 1 - Labs CBC & Chem 7: 07/03/24 05:32 07/03/24 05:32 Labs: Abnormal Lab Results - Last 24 Hours (Table) 07/03/24 07/03/24 Range/Units 05:32 05:32 RBC 2.77 L (4.30-5.90) m/uL Hgb 9.4 L (13.0-17.5) gm/dL Hct 29.9 L (39.0-53.0) % MCV 107.7 H (80.0-100.0) fL RDW 19.9 H (11.5-15.5) % Lymphocytes # 0.8 L (1.0-4.8) k/uL Macrocytosis Marked A Sodium 132 L (137-145) mmol/L Chloride 95 L (98-107) mmol/L BUN 36 H (9-20) mg/dL Creatinine 4.67 H (0.66-1.25) mg/dL Calcium 7.7 L (8.4-10.2) mg/dL AST 264 H (17-59) U/L ALT 124 H (4-49) U/L Alkaline Phosphatase 246 H (38-126) U/L Albumin 3.0 L (3.5-5.0) g/dL Microbiology - Last 24 Hours (Table) 06/28/24 18:33 Gram Stain - Final Sputum Sputum Culture - Final Pseudomonas aeruginosa Corynebacterium species Tamera glabrata
[2024-07-03] MEDS: CEFEPIME 1 GM in SODIUM CHLORIDE 0.9% 50 ML IVPB SCH (11:53)
--- NOTE | 2024-07-03 12:11 | P.PN ---
Subjective Progress Note Date: 07/03/24 Principal diagnosis: Shortness of breath. Patient is a 78-year-old male with past medical history significant for severe aortic stenosis, congestive heart failure, kidney transplant, end-stage renal disease, and recent fall resulting in left scapular fracture. PCP is Dr. Pereira. He presented emergency department yesterday evening, reportedly with a chief complaint of short of breath. He is hard of hearing, making difficult to communicate. When asked about his shortness of breath, he states that has been ongoing for almost a year. He is chronically oxygen pendant on 2 to 3 L/min nasal cannula while at home. He is currently residing at [facility] for rehab after a fall resulting in a left scapular fracture and T9 compression fracture on June 16. He was transferred to [facility] as the patient was felt to be high surgical risk. Patient states that they could not do anything for him there. He believes the reason he was sent in from [facility] was for low blood pressures. CBC: WBC count 7.5, hemoglobin 8.1, hematocrit 24.9, platelets 116. CMP: Sodium 134, potassium 4.7, chloride 95, serum bicarb 31, BUN 41, creatinine 4.36, glucose 100. Lactic 1.8. LFTs mildly elevated. Troponin 0.44. NT proBNP 123,000. EKG: Normal sinus rhythm, rate 82 bpm, interventricular conduction delay, with frequent PVCs. Patient states that his dyspnea is chronic in nature. He is currently resting in bed on 3 L/min nasal cannula which she states he wears at home. Chest x-ray interpreted by me to show cardiomegaly, likely bilateral small pleural effusions, right hilar and upper lobe opacities or asymmetric pulmonary edema. Patient is currently being evaluated in the emergency department. Patient denies any weight gain or lower extremity swelling. Known to have end-stage renal disease and undergoes hemodialysis on a Friday, , Friday schedule. Denies missing any treatments. States he does not make urine, but does take Bumex on outpatient basis. He is also known to have severe aortic valve stenosis and cardiomyopathy. Most recent echocardiogram from April, estimating ejection fraction of 30 to 35%, as well as, grade 3 diastolic dysfunction, severe pulmonary hypertension with a mean gradient of 71 mmHg, as well as, severe aortic stenosis with mean gradient 38 mmHg. He denies any infectious- like symptoms such as fevers, chills, chest pain, change in his chronic cough, purulent sputum production. Does endorse an occasional cough with clear sputum. Viral screen negative for influenza, RSV, COVID. Current most recent vitals: Temperature 99 F, heart rate 77 bpm, blood pressure 119/71 mmHg, nontachypneic, SpO2 97% on 3 L/min nasal cannula. Nontoxic appearance. Progress note dated June 29, 2024. 78-year-old male seen today again in the emergency department, room 26. His procalcitonin was a bit elevated at 0.91. He is on 4 L of oxygen. He is receiving azithromycin, and Rocephin. His ejection fraction was 35 to 40%. The patient is being treated for a combination of both heart failure, systolic in nature, and possible pneumonia. Clinically, he looks better today. He is sitting in a chair next to his hospital bed. Current labs include a white count 8, hemoglobin 8.6, hematocrit 26.6, and a platelet count of 124,000. Sodium 135, potassium 5.3, chlorides 95, CO2 27, BUN 59, creatinine 6.68. Calcium is 8.2. Albumin is 3.1. Viral studies were negative. Blood and sputum cultures are currently pending. Progress note dated June 30, 2024. 78-year-old male seen today in room 376. He is resting comfortably in bed. He is on saline at 10 cc an hour, and getting nasal O2 at 3 L. He is comfortable, without any distress or difficulty. He was initially seen in the emergency department. Current labs include a white count 6.5, hemoglobin 8.2, hematocrit 26.4, and a platelet count of 104,000. Sodium 130, potassium 4.6, chloride 94, CO2 29, BUN 34, creatinine 4.03. Calcium is 8. AST is 193. ALT is 104. Procalcitonin level was 0.91. Progress note dated July 01, 2024. 78-year-old male seen today in room 376. The patient is currently undergoing hemodialysis. The goal today is removal of 1.5 L. His blood pressure according to the dialysis nurse, was a little soft. He is currently on 2 L of oxygen. He is not receiving any IV fluids. Clinically, he feels better, and his breathing is improved. White count 6.8, hemoglobin 8.3, hematocrit 26.5, and platelet cou nt 121,000. Sodium 131, potassium 4.6, chlorides 92, CO2 29, BUN 42, and creatinine 5.49. Calcium is 7.7. The rest of his labs have been reviewed. Sputum sample showing gram-negative bacilli, Tamera glabrata, and corynebacterium species. Patient remains on Rocephin. Progress note dated July 02, 2024. 78-year-old male seen today in room 376. Many family members are in the room, at the bedside. Currently, the patient is on nasal O2, at 3 L. Saturations are 94%. He did wear BiPAP last night, with settings of 12/5, 50%. The patient's sputum sample was positive for Pseudomonas. Rocephin will be discontinued, in favor of cefepime. The patient was admitted with a diagnosis of hypoxemic respiratory failure, secondary to CHF, and possible pneumonia. Current laboratory data includes a white count 6.9, hemoglobin 8.9, hematocrit 28.8, and a platelet count of 145,000. Sodium 132, potassium 3.2, chlorides 90, CO2 30, BUN 24, creatinine 3.62. No chest x-ray today. The chest x-ray from July 01 has been reviewed. Progress note dated July 03, 2024. 78-year-old male seen again in room 376. The patient is currently receiving hemodialysis. The goal for hemodialysis today is to remove 2 L of fluid. The patient is not receiving any IV fluids. The patient is currently on nasal O2 at 2 L. No specific complaints today. Current labs today include a white count of 7.4, hemoglobin 9.4, hematocrit 29.9, and a platelet count of 168,000. Sodium 132, potassium 4.9, chloride 95, CO2 26, BUN 36, creatinine 4.67. The rest of the comprehensive metabolic profile is reviewed. Albumin is 3. Sputum samples were positive for Pseudomonas aeruginosa, and Corynebacterium species. A rib series shows an old ninth rib fracture, and 1/8 rib fracture, which may be acute and minimally displaced. There is a right sided pleural fluid collection, and subluxation of the humeral head. Objective - Vital Signs Vital signs: Vital Signs Temp 98.1 F 07/03/24 11:27 Pulse 72 07/03/24 12:07 Resp 16 07/03/24 11:27 BP 108/51 07/03/24 11:27 Pulse Ox 99 07/03/24 08:35 FiO2 50 07/02/24 15:52 Intake & Output 07/02/24 07/03/24 07/03/24 18:59 06:59 18:59 Intake Total 610 10 110 Output Total 0 Balance 610 10 110 Intake: IV 20 10 10 Invasive Line 2 20 10 10 Intake, IV Titration 50 Amount Cefepime 1 gm In Sodium 50 Chloride 0.9% 50 ml @ 12. 5 mls/hr IVPB DAILY [facility] Rx#:[id number] Oral 540 100 Output: Urine 0 Other: Voiding Method Diaper Diaper Diaper # Bowel Movements 0 1 - Exam No acute distress, oriented 3. Very hard of hearing. Currently on 2 L nasal cannula. HEENT examination is grossly unremarkable. Mucous membranes are moist. No oral lesions. Neck supple. Full range of motion. No adenopathy thyromegaly or neck vein distention. Cardiovascular examination reveals regular rhythm rate. S1-S2 normal. No S3 or S4. Soft systolic murmur is noted. Heart sounds are distant. Lungs reveal bibasilar crackles, and diffuse rhonchi. Breath sounds are equal. No wheezes. Abdomen soft bowel sounds are heard. No masses or tenderness. Extremities are intact. No cyanosis clubbing or edema. Skin is without rash or lesion. Neurologic examination is brief but nonfocal. - Labs CBC & Chem 7: 07/03/24 05:32 07/03/24 05:32 Labs: Abnormal Lab Results - Last 24 Hours (Table) 07/03/24 07/03/24 Range/Units 05:32 05:32 RBC 2.77 L (4.30-5.90) m/uL Hgb 9.4 L (13.0-17.5) gm/dL Hct 29.9 L (39.0-53.0) % MCV 107.7 H (80.0-100.0) fL RDW 19.9 H (11.5-15.5) % Lymphocytes # 0.8 L (1.0-4.8) k/uL Macrocytosis Marked A Sodium 132 L (137-145) mmol/L Chloride 95 L (98-107) mmol/L BUN 36 H (9-20) mg/dL Creatinine 4.67 H (0.66-1.25) mg/dL Calcium 7.7 L (8.4-10.2) mg/dL AST 264 H (17-59) U/L ALT 124 H (4-49) U/L Alkaline Phosphatase 246 H (38-126) U/L Albumin 3.0 L (3.5-5.0) g/dL Microbiology - Last 24 Hours (Table) 06/28/24 18:33 Gram Stain - Final Sputum Sputum Culture - Final Pseudomonas aeruginosa Corynebacterium species Tamera glabrata Assessment and Plan Assessment: Acute on chronic hypoxemic respiratory failure, currently on 3 L/min nasal cannula; chest x-ray interpreted by me to show cardiomegaly, likely bilateral small pleural effusions, right hilar and upper lobe opacities or asymmetric pulmonary edema. NT proBNP significantly elevated at 123,000. Suspect exacerbation of systolic congestive heart failure. End-stage renal disease, undergoes hemodialysis on a Friday, , Friday schedule. History of renal transplant. Anemia of chronic disease, hemoglobin stable at 8.1 g/dL. Elevated troponins, rule out non-ST elevation OR. History of severe aortic stenosis. History of heart failure with reduced ejection fraction. Chronic hypoxemic respiratory failure, normally on 2 to 3 L/min nasal cannula 30/12. History of hyperlipidemia. History of traumatic fall, resulting in left scapular fracture and acute co mpression fracture of T9 without retropulsion. Plan: Plan dated June 29, 2024. The patient is seen today in room 26, in the emergency department. He appears to be doing a bit better today than yesterday. He is sitting in a chair next to the hospital bed. He is currently on 4 L of oxygen. His ejection fraction is quite low. He is on azithromycin and Rocephin for presumed pneumonia. His procalcitonin level was a bit elevated at 0.91. Labs, x-rays, and medications are reviewed. We will continue to follow make recommendations where appropriate. Prognosis is guarded. The patient is extremely hard of hearing. Plan dated June 30, 2024. The patient is seen today in room 376. The patient is resting comfortably in bed. He continues on O2 at 3 L. He is getting saline at 10 cc an hour. The patient does have a history of aortic stenosis. He has a typical murmur. His admission diagnoses included both heart failure, and probable pneumonia. Labs, x-rays, and medications are reviewed. The patient's procalcitonin level was elevated at 0.91. We will continue to follow the patient, and make recommendations along the way. Plan dated July 01, 2024. The patient is seen today in room 376. He is having hemodialysis as we speak. The plan is to remove 1.5 L of fluid. He is currently on 2 L of oxygen. He is not receiving any IV fluids. Labs, x-rays, and all medications have been reviewed. The patient continues on Rocephin. His procalcitonin level was elevated at 0.91. He is basically being treated for heart failure/fluid overload, and possible pneumonia. Clinically, he is improved. Plan dated July 02, 2024. The patient is seen today in room 376. Family members are at the bedside. The patient has a history of shortness of breath, with acute hypoxemic respiratory failure, secondary to CHF, and pneumonia. He has been treated for both. Sputum was positive for Pseudomonas. Rocephin is discontinued in favor of cefepime. All labs, x-rays, and medications are reviewed. The patient is a DO NOT RESUSCITATE patient. We will continue to follow make recommendations along the way. Prognosis is certainly guarded. Dictation was produced using [employer] dictation software. Please excuse any grammatical, word or spelling errors. Plan dated July 03, 1999 The patient is seen today in room 376. The patient is currently undergoing he modialysis. The goal is to remove 2 L of fluid, if his blood pressure can tolerate it. He is currently only on 2 L of nasal oxygen. He is not receiving any IV fluids. Labs, x-rays, and all medications are reviewed. The patient was placed on cefepime, for Pseudomonas in his sputum. He was admitted with a diagnosis of acute hypoxemic respiratory failure secondary to CHF, and pneumonia. We will continue to follow. Prognosis is guarded. The patient is a DO NOT RESUSCITATE patient. Time with Patient: Less than 30
--- NOTE | 2024-07-03 13:14 | P.PN ---
Subjective Progress Note Date: 07/03/24 Patient is an 78-year-old male with past medical history of ESRD status post kidney transplant on hemodialysis, dyslipidemia, severe aortic stenosis, HFrEF EF 30 to 35%, severe pulmonary hypertension who presents to the ED shortness of breath. Per ED note patient is a poor historian, presented with shortness of breath, chest pain and pain with inspiration. At the time of my assessment patient was confused and was not able to provide much history. He could not recall why he was at the hospital. He did report mild shortness of breath at the time of interview but had no additional complaints. He denied experiencing chest discomfort, shortness of breath, cough, nausea, vomiting, abdominal pain, diarrhea. Of note the patient was recently admitted for clavicular fracture and discharged 1 week ago. 06/29/2024 Patient seen and examined at bedside. No events overnight. He states that his shortness of breath is improving. He is to have dialysis today. 06/30/2024 Patient seen and examined at bedside. Hemodialysis yesterday with 2 L taken off. He was relatively hypotensive but remains asymptomatic. Shortness of breath improving. 07/01/2024 Patient seen and examined at bedside. Hemodialysis today. He continues to be hypotensive and asymptomatic on midodrine. Denies chest pain or shortness of breath. Denies abdominal pain. Surgery consulted, no intervention planned. PT to evaluate tomorrow. 07/02/2024 Patient seen and examined at bedside. Overnight he was hypotensive and given 5 00 mL liter bolus and placed on BiPAP per recommendations of pulmonology. Hemodialysis yesterday removed 1.5 L in total. Denies chest pain, shortness of breath or abdominal pain. Had a lengthy discussion at bedside with family and patient about goals of care determined it was best to obtain more information from hospice care at this time. Review of systems: Pertinent positives and negatives as discussed in HPI, a complete review of systems was performed and all other systems are negative. Physical examination: Vital signs reviewed General: Well, non distressed, appears at stated age, hard of hearing Derm: warm, dry, intact, large hematoma noted on left chest Head: atraumatic, normocephalic, symmetric Eyes: Did not assess Mouth: no lip lesion, mucus membranes moist Cardiovascular: S1 S2 reg, systolic ejection murmur loudest at RUSB Lungs: diminished breath sounds at bases Abdominal: soft, non-tender to palpation, nondistended Extremities: No cyanosis, clubbing, or pedal edema. Psych: well appearing, appropriate affect Neuro: Alert and oriented, no gross focal deficits noted on neurological examination Today's findings: Labs sodium 132, potassium 3.2, chloride 90, BUN 24, creatinine 3.62, glucose 73 , AST 199, ALT 110, ALP 260 Chest x-ray findings of bilateral pleural effusions moderate on the left, prominent pulmonary vascular markings with some increased markings at right base possible pulmonary edema and atelectasis. Sputum culture positive for Pseudomonas Assessment/Plan: Patient is a 78-year-old male with past medical history of ESRD on hemodialysis, dyslipidemia, aortic stenosis, HFrEF, severe pulmonary hypertension who presented with shortness of breath. Case was discussed with the ED physician and patient will be admitted to internal medicine service for further evaluation. Acute on chronic hypoxic respiratory failure, suspect multifactorial in setting of fluid overload secondary to ESRD and systolic CHF exacerbation (HFrEF 30 to 35%), unable to rule out community-acquired pneumonia Hypotension Severe aortic stenosis Generalized weakness Initial CXR shows suspected bibasilar opacities NT proBNP 123,000 Resume home Bumex 2 mg p.o. daily Begin metoprolol tartrate 25 mg twice daily Procalcitonin 0.91 continue IV ceftriaxone 2 g daily, and cefepime 1 mg daily Continue bronchodilators Cardiac monitoring and supplemental oxygen as needed. Baseline O2 2 to 3 L. Hemodialysis schedule of Friday, , Friday. Midodrine 10 mg 3 times daily, will consider discontinuing PT OT consulted Nephrology following for hemodialysis Cardiology following, will follow-up outpatient Pulmonology following Hospice consulted Hypokalemia Given 40 mEq of potassium chloride Possible cholecystitis Transaminitis Initial AST 148, ALT 76, ALP 236. Continue to monitor LFTs Discontinued IV Flagyl General Surgery following, no intervention planned at this time Anemia of chronic disease Hemoglobin of 8.1 Continue to monitor Transfuse if less than 7 NSTEMI type II, possibly secondary to ESRD with CHF exacerbation ACS ruled out by cardiology Peak troponin 0.450, down trended Cardiac telemetry Cardiology following Chronic: Gout allopurinol Dyslipidemia Continue Lipitor 80 mg p.o. at bedtime F: P.o. E: Replete as needed N: Heart healthy A: Fall precautions, PT OT assessment DVT prophylaxis: Heparin 5000 units subcu every 8 hours CODE STATUS: No code Discussed with: Patient Anticipated discharge place: Hospice Patient is severely ill, prognosis guarded. Objective - Vital Signs Vital signs: Vital Signs Temp 98.1 F 07/03/24 11:27 Pulse 72 07/03/24 12:07 Resp 16 07/03/24 11:27 BP 108/51 07/03/24 11:27 Pulse Ox 99 07/03/24 08:35 FiO2 50 07/02/24 15:52 Intake & Output 07/02/24 07/03/24 07/03/24 18:59 06:59 18:59 Intake Total 610 10 110 Output Total 0 Balance 610 10 110 Intake: IV 20 10 10 Invasive Line 2 20 10 10 Intake, IV Titration 50 Amount Cefepime 1 gm In Sodium 50 Chloride 0.9% 50 ml @ 12. 5 mls/hr IVPB DAILY [facility] Rx#:[id number] Oral 540 100 Output: Urine 0 Other: Voiding Method Diaper Diaper Diaper # Bowel Movements 0 1 - Labs CBC & Chem 7: 07/03/24 05:32 07/03/24 05:32 Labs: Abnormal Lab Results - Last 24 Hours (Table) 07/03/24 07/03/24 Range/Units 05:32 05:32 RBC 2.77 L (4.30-5.90) m/uL Hgb 9.4 L (13.0-17.5) gm/dL Hct 29.9 L (39.0-53.0) % MCV 107.7 H (80.0-100.0) fL RDW 19.9 H (11.5-15.5) % Lymphocytes # 0.8 L (1.0-4.8) k/uL Macrocytosis Marked A Sodium 132 L (137-145) mmol/L Chloride 95 L (98-107) mmol/L BUN 36 H (9-20) mg/dL Creatinine 4.67 H (0.66-1.25) mg/dL Calcium 7.7 L (8.4-10.2) mg/dL AST 264 H (17-59) U/L ALT 124 H (4-49) U/L Alkaline Phosphatase 246 H (38-126) U/L Albumin 3.0 L (3.5-5.0) g/dL Microbiology - Last 24 Hours (Table) 06/27/24 22:07 Blood Culture - Final Blood 06/28/24 18:33 Gram Stain - Final Sputum Sputum Culture - Final Pseudomonas aeruginosa Corynebacterium species Tamera glabrata
--- NOTE | 2024-07-03 14:09 | P.PN ---
Subjective Progress Note Date: 07/03/24 Patient is seen for follow-up for end-stage renal disease. He is more awake today and answering questions appropriately. Unable to tolerate full HD today due to hypotension despite midodrine. Patient is awake, comfortable, no acute distress. Examination of the heart S1 and S2 Examination of the lungs bilateral breath sounds are heard Abdomen is soft nontender Examination of the lower extremities shows no significant edema, chronic skin changes Objective - Vital Signs Vital signs: Vital Signs Temp 97.7 F 07/03/24 08:35 Pulse 68 07/03/24 08:59 Resp 20 07/03/24 08:35 BP 99/55 07/03/24 08:35 Pulse Ox 99 07/03/24 08:35 FiO2 50 07/02/24 15:52 Intake & Output 07/02/24 07/03/24 07/03/24 18:59 06:59 18:59 Intake Total 610 10 110 Output Total 0 Balance 610 10 110 Intake: IV 20 10 10 Invasive Line 2 20 10 10 Intake, IV Titration 50 Amount Cefepime 1 gm In Sodium 50 Chloride 0.9% 50 ml @ 12. 5 mls/hr IVPB DAILY [facility] Rx#:[id number] Oral 540 100 Output: Urine 0 Other: Voiding Method Diaper Diaper Diaper # Bowel Movements 0 1 - Labs CBC & Chem 7: 07/03/24 05:32 07/03/24 05:32 Labs: Abnormal Lab Results - Last 24 Hours (Table) 07/03/24 07/03/24 Range/Units 05:32 05:32 RBC 2.77 L (4.30-5.90) m/uL Hgb 9.4 L (13.0-17.5) gm/dL Hct 29.9 L (39.0-53.0) % MCV 107.7 H (80.0-100.0) fL RDW 19.9 H (11.5-15.5) % Lymphocytes # 0.8 L (1.0-4.8) k/uL Macrocytosis Marked A Sodium 132 L (137-145) mmol/L Chloride 95 L (98-107) mmol/L BUN 36 H (9-20) mg/dL Creatinine 4.67 H (0.66-1.25) mg/dL Calcium 7.7 L (8.4-10.2) mg/dL AST 264 H (17-59) U/L ALT 124 H (4-49) U/L Alkaline Phosphatase 246 H (38-126) U/L Albumin 3.0 L (3.5-5.0) g/dL Microbiology - Last 24 Hours (Table) 06/28/24 18:33 Gram Stain - Final Sputum Sputum Culture - Final Pseudomonas aeruginosa Corynebacterium species Tamera glabrata Assessment and Plan Assessment: 1. End-stage renal disease maintained on hemodialysis on Friday schedule via left upper extremity AV fistula. 2. Acute hypoxic respiratory failure, improved 3. Pneumonia maintained on antibiotics. 4. Fluid overload. 5. Peripheral arterial disease. 6. Anemia of chronic kidney disease. 7. Chronic kidney disease mineral bone disease maintained on calcitriol and PhosLo. 8. Acute on chronic systolic CHF with severe aortic stenosis and pulmonary hypertension. 9. Recent clavicular fracture. Plan: Hemodialysis not able to complete full treatment due to hypotension Continue midodrine 10 mg TID May need dose of IV albumin with next HD if BP remains low Will check on for HD possibly Friday or if can wait till Friday Poor intake, no UF next treatment
[2024-07-03] MEDS ORDERED: QUEtiapine 25 MG TAB PO PRN (16:21)
[2024-07-03] MEDS: traZODone HCL 50 MG TAB PO PRN (20:54)
--- NOTE | 2024-07-04 10:14 | P.PN ---
Progress Note - Text Progress Note Date: 07/04/24 HISTORY OF PRESENT ILLNESS: Patient admitted to the hospital with pneumonia, acute CHF exacerbation, EF 35% and hypoxic respiratory failure. Surgical service following in regards to cholecystitis. Patient has no abdominal pain. He is tolerating diet. Afebrile. No acute events overnight. PHYSICAL EXAM: VITAL SIGNS: Reviewed. GENERAL: Well-developed in no acute distress. ABDOMEN: Soft. Nondistended. Nontender. No tenderness palpation right upper quadrant. No rebound. No guarding. NEUROLOGIC: Alert and alert. heard of hearing ASSESSMENT: 1. Chronic cholecystitis. Patient tolerating diet. Nontender right upper quadrant. LFTs could be elevated due to hypotension and fluid overload. No evidence of acute cholecystitis. 2. Severe aortic stenosis being evaluated by cardiology for possible TAVR 3. End-stage renal disease on hemodialysis PLAN: -No surgical intervention planned -Recommend low-fat diet -Continue cardiac workup -Continue to monitor Nakul Presley DO [facility] [phone]
--- NOTE | 2024-07-04 10:51 | P.PN ---
Subjective HISTORY OF PRESENT ILLNESS: This is a 78-year-old male with a past medical history significant for coronary artery disease, end-stage renal disease on hemodialysis, cardiomyopathy, and CAD. Patient follows in the office with Dr. Phillips. We have been asked to see the patient in consultation for congestive heart failure and elevated troponins. Eduardo baker examined at the bedside in the emergency room. Patient presented to the hospital with a chief complaint of shortness of breath. Patient reports he has been coughing frequently with sputum production. He also states his blood pressure has been running on the lower side. He denied any chest pain or pressure. Patient was found to have bibasilar pneumonia and was started on antibiotics. He continues to have a significant cough with sputum production at the time of examination. It is noted that the patient has severe aortic stenosis. When he was in the office in May 2024 for him and his daughter had a long conversation regarding possible aortic valve replacement and he had decided not to pursue valve replacement at that time. DIAGNOSTICS: - EKG reveals sinus mechanism with frequent PVCs. - Chest xray similar suspected bibasilar pneumonia. - Laboratory data: WBC 5.4. Hemoglobin 7.8. Platelet count 93. Sodium 135. Potassium 4.4. BUN 44. Creatinine 5.08. Troponin 0.440. 0.450. 0.426. proBNP 123,000 - Current home cardiac medications include Lipitor 80 mg at night, Bumex 2 mg daily, midodrine 5 mg 3 times a day. - Most recent echocardiogram obtained in April 2024 revealing ejection fraction 30 to 35%, mild to moderate mitral regurgitation, severe aortic st enosis, severe tricuspid regurgitation, moderate concentric LVH -Patient underwent ATA in April 2024 revealing severe aortic stenosis involving tricuspid aortic valve is heavily calcified. Cardiomyopathy with ejection fraction 35% - Cardiac catheterization history: April 2024 revealing calcified coronaries without focal obstructive disease, heavily calcified LAD. There is what appears like a stent in the proximal LAD that is patent. 06/29/2024 Patient examined this morning in the emergency room. Patient currently denies chest pain or pressure. He reports improvement in his shortness of breath. He also reports improvement in his cough. Bedside telemetry reveals sinus tachycardia. Blood pressure 111/63. 06/30/2024 Patient examined this morning at the bedside. Patient currently denies any chest pain or pressure. He denies shortness of breath. He remains on IV diuretics. Creatinine today 4.03. Blood pressure 98/50. Heart rate is in the 60s70s. 07/02/2024 Patient examined this morning at the bedside. Patient currently denies any chest pain or pressure. He denies any shortness of breath. Vital signs are stable. Blood pressure this morning 104/56. 07/03/2024 Patient examined this morning at the bedside. Patient is currently undergoing hemodialysis at the time of examination. Patient currently denies any chest pain or pressure. He denies any shortness of breath. Vital signs are stable. 07/04/2024 Patient examined this morning the bedside. Patient currently denies chest pain or pressure. He denies shortness of breath. Vital signs are stable. According to nursing, patient is supposed to meet again with hospice tomorrow. PHYSICAL EXAM: VITAL SIGNS: Reviewed. GENERAL: Well-developed in no acute distress. HEENT: Head is normocephalic. Pupils are equal, round. Sclerae anicteric. Mucous membranes of the mouth are moist. Neck supple. No JVD or thyromegaly LUNGS: Respirations even and unlabored. Lungs diminished with rhonchi bilaterally HEART: Regular rate and rhythm. S1 and S2 heard. Systolic murmur noted. ABDOMEN: Soft. Nondistended. Nontender. EXTREMITIES: Normal range of motion. No clubbing or cyanosis. Peripheral pulses intact. No lower extremity edema NEUROLOGIC: Awake and alert. Oriented x 3. ASSESSMENT: Basilar pneumonia per chest x-ray Acute hypoxic respiratory failure requiring supplemental oxygen Severe aortic stenosis Acute on chronic heart failure with reduced EF Elevated troponins, type II DE, no evidence of acute coronary syndrome End-stage renal disease on hemodialysis Coronary artery disease with previous stenting Ischemic cardiomyopathy PLAN: An acute coronary event has been ruled out No need to repeat echocardiogram Continue current cardiac medications Continue telemetry monitoring Patient may follow-up postdischarge with Dr. Phillips and can be referred to TAVR clinic when his acute issues have resolved. Consider balloon valvuloplasty before TAVR to see if patient has any improvement in his symptoms. Case discussed with primary medicine yesterday. Patient now considering hospice. Hospice consult has been placed. Await further input. Patient is currently stable from a cardiac perspective Further recommendations pending patient course Nurse practitioner note has been reviewed by physician. Signing provider agrees with the documented findings, assessment, and plan of care documented by LACQUERER as a scribe. Objective - Vital Signs Vital signs: Vital Signs Temp 97.6 F 07/04/24 09:29 Pulse 68 07/04/24 09:29 Resp 20 07/04/24 09:29 BP 111/60 07/04/24 09:29 Pulse Ox 97 07/04/24 09:29 FiO2 50 07/02/24 15:52 Intake & Output 07/03/24 07/04/24 07/04/24 18:59 06:59 18:59 Intake Total 910 10 130 Output Total 600 Balance 310 10 130 Intake: IV 10 10 10 Invasive Line 2 10 10 10 Oral 300 120 Hemodialysis 600 Output: Hemodialysis 431 Hemodialysis Net Amount 169 Other: Voiding Method Diaper Diaper Diaper # Voids 1 - Labs CBC & Chem 7: 07/03/24 05:32 07/03/24 05:32 Labs: Microbiology - Last 24 Hours (Table) 06/27/24 22:07 Blood Culture - Final Blood
[2024-07-04 11:05] LABS: Anisocytosis Slight; HCT 27.5 % (39.0-53.0); HGB 8.6 gm/dL (13.0-17.5); Hypochromasia Marked; MCH 33.7 pg (25.0-35.0); MCHC 31.2 g/dL (31.0-37.0); MCV 108.3 fL (80.0-100.0); Macrocytosis Marked; Mean Platelet Volume 9.5; Platelet Count 123 k/uL (150-450); RBC 2.54 m/uL (4.30-5.90); RDW 19.8 % (11.5-15.5); WBC 4.9 k/uL (3.8-10.6)
[2024-07-04 11:36] LABS: ALT 137 U/L (4-49); AST 276 U/L (17-59); African American GFR (CKD) 12 (>60 ml/min/1.73 sqM); Albumin 2.8 g/dL (3.5-5.0); Alkaline Phosphatase 230 U/L (38-126); Anion Gap 7 mmol/L; Blood Urea Nitrogen 35 mg/dL (9-20); Calcium 7.8 mg/dL (8.4-10.2); Carbon Dioxide 30 mmol/L (22-30); Chloride 97 mmol/L (98-107); Glucose 94 mg/dL (74-99); Non-African American GFR(CKD) 10 (>60 ml/min/1.73 sqM); Potassium 4.4 mmol/L (3.5-5.1); Sodium 134 mmol/L (137-145); Total Bilirubin 0.8 mg/dL (0.2-1.3); Total Protein 6.2 g/dL (6.3-8.2)
[2024-07-04] MEDS: CALCIUM ACETATE 667 MG TAB PO SCH (12:09)
--- NOTE | 2024-07-04 12:42 | P.PN ---
Subjective Progress Note Date: 07/04/24 Principal diagnosis: Shortness of breath. Patient is a 78-year-old male with past medical history significant for severe aortic stenosis, congestive heart failure, kidney transplant, end-stage renal disease, and recent fall resulting in left scapular fracture. PCP is Dr. Pereira. He presented emergency department yesterday evening, reportedly with a chief complaint of short of breath. He is hard of hearing, making difficult to communicate. When asked about his shortness of breath, he states that has been ongoing for almost a year. He is chronically oxygen pendant on 2 to 3 L/min nasal cannula while at home. He is currently residing at [facility] for rehab after a fall resulting in a left scapular fracture and T9 compression fracture on June 16. He was transferred to [facility] as the patient was felt to be high surgical risk. Patient states that they could not do anything for him there. He believes the reason he was sent in from [facility] was for low blood pressures. CBC: WBC count 7.5, hemoglobin 8.1, hematocrit 24.9, platelets 116. CMP: Sodium 134, potassium 4.7, chloride 95, serum bicarb 31, BUN 41, creatinine 4.36, glucose 100. Lactic 1.8. LFTs mildly elevated. Troponin 0.44. NT proBNP 123,000. EKG: Normal sinus rhythm, rate 82 bpm, interventricular conduction delay, with frequent PVCs. Patient states that his dyspnea is chronic in nature. He is currently resting in bed on 3 L/min nasal cannula which she states he wears at home. Chest x-ray interpreted by me to show cardiomegaly, likely bilateral small pleural effusions, right hilar and upper lobe opacities or asymmetric pulmonary edema. Patient is currently being evaluated in the emergency department. Patient denies any weight gain or lower extremity swelling. Known to have end-stage renal disease and undergoes hemodialysis on a Friday, , Friday schedule. Denies missing any treatments. States he does not make urine, but does take Bumex on outpatient basis. He is also known to have severe aortic valve stenosis and cardiomyopathy. Most recent echocardiogram from April, estimating ejection fraction of 30 to 35%, as well as, grade 3 diastolic dysfunction, severe pulmonary hypertension with a mean gradient of 71 mmHg, as well as, severe aortic stenosis with mean gradient 38 mmHg. He denies any infectious- like symptoms such as fevers, chills, chest pain, change in his chronic cough, purulent sputum production. Does endorse an occasional cough with clear sputum. Viral screen negative for influenza, RSV, COVID. Current most recent vitals: Temperature 99 F, heart rate 77 bpm, blood pressure 119/71 mmHg, nontachypneic, SpO2 97% on 3 L/min nasal cannula. Nontoxic appearance. Progress note dated June 29, 2024. 78-year-old male seen today again in the emergency department, room 26. His procalcitonin was a bit elevated at 0.91. He is on 4 L of oxygen. He is receiving azithromycin, and Rocephin. His ejection fraction was 35 to 40%. The patient is being treated for a combination of both heart failure, systolic in nature, and possible pneumonia. Clinically, he looks better today. He is sitting in a chair next to his hospital bed. Current labs include a white count 8, hemoglobin 8.6, hematocrit 26.6, and a platelet count of 124,000. Sodium 135, potassium 5.3, chlorides 95, CO2 27, BUN 59, creatinine 6.68. Calcium is 8.2. Albumin is 3.1. Viral studies were negative. Blood and sputum cultures are currently pending. Progress note dated June 30, 2024. 78-year-old male seen today in room 376. He is resting comfortably in bed. He is on saline at 10 cc an hour, and getting nasal O2 at 3 L. He is comfortable, without any distress or difficulty. He was initially seen in the emergency department. Current labs include a white count 6.5, hemoglobin 8.2, hematocrit 26.4, and a platelet count of 104,000. Sodium 130, potassium 4.6, chloride 94, CO2 29, BUN 34, creatinine 4.03. Calcium is 8. AST is 193. ALT is 104. Procalcitonin level was 0.91. Progress note dated July 01, 2024. 78-year-old male seen today in room 376. The patient is currently undergoing hemodialysis. The goal today is removal of 1.5 L. His blood pressure according to the dialysis nurse, was a little soft. He is currently on 2 L of oxygen. He is not receiving any IV fluids. Clinically, he feels better, and his breathing is improved. White count 6.8, hemoglobin 8.3, hematocrit 26.5, and platelet cou nt 121,000. Sodium 131, potassium 4.6, chlorides 92, CO2 29, BUN 42, and creatinine 5.49. Calcium is 7.7. The rest of his labs have been reviewed. Sputum sample showing gram-negative bacilli, Tamera glabrata, and corynebacterium species. Patient remains on Rocephin. Progress note dated July 02, 2024. 78-year-old male seen today in room 376. Many family members are in the room, at the bedside. Currently, the patient is on nasal O2, at 3 L. Saturations are 94%. He did wear BiPAP last night, with settings of 12/5, 50%. The patient's sputum sample was positive for Pseudomonas. Rocephin will be discontinued, in favor of cefepime. The patient was admitted with a diagnosis of hypoxemic respiratory failure, secondary to CHF, and possible pneumonia. Current laboratory data includes a white count 6.9, hemoglobin 8.9, hematocrit 28.8, and a platelet count of 145,000. Sodium 132, potassium 3.2, chlorides 90, CO2 30, BUN 24, creatinine 3.62. No chest x-ray today. The chest x-ray from July 01 has been reviewed. Progress note dated July 03, 2024. 78-year-old male seen again in room 376. The patient is currently receiving hemodialysis. The goal for hemodialysis today is to remove 2 L of fluid. The patient is not receiving any IV fluids. The patient is currently on nasal O2 at 2 L. No specific complaints today. Current labs today include a white count of 7.4, hemoglobin 9.4, hematocrit 29.9, and a platelet count of 168,000. Sodium 132, potassium 4.9, chloride 95, CO2 26, BUN 36, creatinine 4.67. The rest of the comprehensive metabolic profile is reviewed. Albumin is 3. Sputum samples were positive for Pseudomonas aeruginosa, and Corynebacterium species. A rib series shows an old ninth rib fracture, and 1/8 rib fracture, which may be acute and minimally displaced. There is a right sided pleural fluid collection, and subluxation of the humeral head. Progress note dated July 04, 2024. 78-year-old male seen again in room 376. The patient continues on oxygen, 2 L. He is not receiving any IV fluids. No plans for hemodialysis today. He a pparently did poorly with hemodialysis yesterday, as his blood pressure was quite soft. Current labs include a white count 4.9, hemoglobin 8.6, hematocrit 27.5, and platelet count 123,000. Sodium 134, potassium 4.4, chlorides 97, CO2 30, BUN 35, creatinine 5.03. AST is 276. ALT is 137. Albumin is 2.8. Sputum cultures were positive for Pseudomonas, and Corynebacterium species. Objective - Vital Signs Vital signs: Vital Signs Temp 97.2 F L 07/04/24 12:00 Pulse 74 07/04/24 12:03 Resp 16 07/04/24 12:00 BP 97/51 07/04/24 12:00 Pulse Ox 99 07/04/24 12:00 FiO2 50 07/02/24 15:52 Intake & Output 07/03/24 07/04/24 07/04/24 18:59 06:59 18:59 Intake Total 910 10 130 Output Total 600 0 Balance 310 10 130 Intake: IV 10 10 10 Invasive Line 2 10 10 10 Oral 300 120 Hemodialysis 600 Output: Urine 0 Hemodialysis 431 Hemodialysis Net Amount 169 Other: Voiding Method Diaper Diaper Diaper # Voids 1 # Bowel Movements 1 - Exam No acute distress, oriented 3. Very hard of hearing. Currently on 2 L nasal cannula. HEENT examination is grossly unremarkable. Mucous membranes are moist. No oral lesions. Neck supple. Full range of motion. No adenopathy thyromegaly or neck vein distention. Cardiovascular examination reveals regular rhythm rate. S1-S2 normal. No S3 or S4. Soft systolic murmur is noted. Heart sounds are distant. Lungs reveal bibasilar crackles, and diffuse rhonchi. Breath sounds are equal. No wheezes. Abdomen soft bowel sounds are heard. No masses or tenderness. Extremities are intact. No cyanosis clubbing or edema. Skin is without rash or lesion. Neurologic examination is brief but nonfocal. - Labs CBC & Chem 7: 07/04/24 10:32 07/04/24 10:32 Labs: Abnormal Lab Results - Last 24 Hours (Table) 07/04/24 07/04/24 Range/Units 10:32 10:32 RBC 2.54 L (4.30-5.90) m/uL Hgb 8.6 L (13.0-17.5) gm/dL Hct 27.5 L (39.0-53.0) % MCV 108.3 H (80.0-100.0) fL RDW 19.8 H (11.5-15.5) % Plt Count 123 L (150-450) k/uL Macrocytosis Marked A Sodium 134 L (137-145) mmol/L Chloride 97 L (98-107) mmol/L BUN 35 H (9-20) mg/dL Creatinine 5.03 H (0.66-1.25) mg/dL Calcium 7.8 L (8.4-10.2) mg/dL AST 276 H (17-59) U/L ALT 137 H (4-49) U/L Alkaline Phosphatase 230 H (38-126) U/L Total Protein 6.2 L (6.3-8.2) g/dL Albumin 2.8 L (3.5-5.0) g/dL Microbiology - Last 24 Hours (Table) 06/27/24 22:07 Blood Culture - Final Blood Assessment and Plan Assessment: Acute on chronic hypoxemic respiratory failure, currently on 3 L/min nasal cannula; chest x-ray interpreted by me to show cardiomegaly, likely bilateral small pleural effusions, right hilar and upper lobe opacities or asymmetric pulmonary edema. NT proBNP significantly elevated at 123,000. Suspect Pseudomonas aeruginosa pneumonia, currently on cefepime. Suspect exacerbation of systolic congestive heart failure. End-stage renal disease, undergoes hemodialysis on a Friday, , Friday schedule. History of renal transplant. Anemia of chronic disease, hemoglobin stable at 8.1 g/dL. Elevated troponins, rule out non-ST elevation NM. History of severe aortic stenosis. History of heart failure with reduced ejection fraction. Chronic hypoxemic respiratory failure, normally on 2 to 3 L/min nasal cannula 30/12. History of hyperlipidemia. History of traumatic fall, resulting in left scapular fracture and acute compression fracture of T9 without retropulsion. Plan: Plan dated June 29, 2024. The patient is seen today in room 26, in the emergency department. He appears to be doing a bit better today than yesterday. He is sitting in a chair next to the hospital bed. He is currently on 4 L of oxygen. His ejection fraction is quite low. He is on azithromycin and Rocephin for presumed pneumonia. His procalcitonin level was a bit elevated at 0.91. Labs, x-rays, and medications are reviewed. We will continue to follow make recommendations where appropriate. Prognosis is guarded. The patient is extremely hard of hearing. Plan dated June 30, 2024. The patient is seen today in room 376. The patient is resting comfortably in bed. He continues on O2 at 3 L. He is getting saline at 10 cc an hour. The patient does have a history of aortic stenosis. He has a typical murmur. His admission diagnoses included both heart failure, and probable pneumonia. Labs, x-rays, and medications are reviewed. The patient's procalcitonin level was elevated at 0.91. We will continue to follow the patient, and make recommendations along the way. Plan dated July 01, 2024. The patient is seen today in room 376. He is having hemodialysis as we speak. The plan is to remove 1.5 L of fluid. He is currently on 2 L of oxygen. He is not receiving any IV fluids. Labs, x-rays, and all medications have been reviewed. The patient continues on Rocephin. His procalcitonin level was elevated at 0.91. He is basically being treated for heart failure/fluid overload, and possible pneumonia. Clinically, he is improved. Plan dated July 02, 2024. The patient is seen today in room 376. Family members are at the bedside. The patient has a history of shortness of breath, with acute hypoxemic respiratory failure, secondary to CHF, and pneumonia. He has been treated for both. Sputum was positive for Pseudomonas. Rocephin is discontinued in favor of cefepime. All labs, x-rays, and medications are reviewed. The patient is a DO NOT RESUSCITATE patient. We will continue to follow make recommendations along the way. Prognosis is certainly guarded. Dictation was produced using [employer] software. Please excuse any grammatical, word or spelling errors. Plan dated July 03, 2024. The patient is seen today in room 376. The patient is currently undergoing hemodialysis. The goal is to remove 2 L of fluid, if his blood pressure can tolerate it. He is currently only on 2 L of nasal oxygen. He is not receiving any IV fluids. Labs, x-rays, and all medications are reviewed. The patient was placed on cefepime, for Pseudomonas in his sputum. He was admitted with a diagnosis of acute hypoxemic respiratory failure secondary to CHF, and p neumonia. We will continue to follow. Prognosis is guarded. The patient is a DO NOT RESUSCITATE patient. Plan dated July 04, 2024. The patient is seen today in room 376. He is resting comfortably in bed. He is on 2 L. No respiratory distress. He had hemodialysis attempted yesterday. Acc ording to the nurse, the patient could not tolerate hemodialysis, because of his low blood pressure. The patient continues on cefepime for possible Pseudomonas pneumonia. We will continue to follow make recommendations along the way. Prognosis is poor. He is a DO NOT RESUSCITATE patient. I do not think he would be a good candidate for a transcatheter aortic valve replacement. Time with Patient: Less than 30
--- NOTE | 2024-07-04 12:44 | P.PN ---
Subjective Progress Note Date: 07/04/24 Patient is seen for follow-up for end-stage renal disease. He is more awake today and answering questions appropriately. Family considering hospice. Discussed patient would likely not be palliative candidate given his difficulties with BP on dialysis. Family planning meeting with hospice tomorrow. Patient is awake, comfortable, no acute distress. Examination of the heart S1 and S2 Examination of the lungs bilateral breath sounds are heard Abdomen is soft nontender Examination of the lower extremities shows no significant edema, chronic skin changes Objective - Vital Signs Vital signs: Vital Signs Temp 97.2 F L 07/04/24 12:00 Pulse 74 07/04/24 12:03 Resp 16 07/04/24 12:00 BP 97/51 07/04/24 12:00 Pulse Ox 99 07/04/24 12:00 FiO2 50 07/02/24 15:52 Intake & Output 07/03/24 07/04/24 07/04/24 18:59 06:59 18:59 Intake Total 910 10 130 Output Total 600 0 Balance 310 10 130 Intake: IV 10 10 10 Invasive Line 2 10 10 10 Oral 300 120 Hemodialysis 600 Output: Urine 0 Hemodialysis 431 Hemodialysis Net Amount 169 Other: Voiding Method Diaper Diaper Diaper # Voids 1 # Bowel Movements 1 - Labs CBC & Chem 7: 07/04/24 10:32 07/04/24 10:32 Labs: Abnormal Lab Results - Last 24 Hours (Table) 07/04/24 07/04/24 Range/Units 10:32 10:32 RBC 2.54 L (4.30-5.90) m/uL Hgb 8.6 L (13.0-17.5) gm/dL Hct 27.5 L (39.0-53.0) % MCV 108.3 H (80.0-100.0) fL RDW 19.8 H (11.5-15.5) % Plt Count 123 L (150-450) k/uL Macrocytosis Marked A Sodium 134 L (137-145) mmol/L Chloride 97 L (98-107) mmol/L BUN 35 H (9-20) mg/dL Creatinine 5.03 H (0.66-1.25) mg/dL Calcium 7.8 L (8.4-10.2) mg/dL AST 276 H (17-59) U/L ALT 137 H (4-49) U/L Alkaline Phosphatase 230 H (38-126) U/L Total Protein 6.2 L (6.3-8.2) g/dL Albumin 2.8 L (3.5-5.0) g/dL Microbiology - Last 24 Hours (Table) 06/27/24 22:07 Blood Culture - Final Blood Assessment and Plan Assessment: 1. End-stage renal disease maintained on hemodialysis on Friday schedule via left upper extremity AV fistula. 2. Acute hypoxic respiratory failure, improved 3. Pneumonia maintained on antibiotics. 4. Fluid overload. 5. Peripheral arterial disease. 6. Anemia of chronic kidney disease. 7. Chronic kidney disease mineral bone disease maintained on calcitriol and PhosLo. 8. Acute on chronic systolic CHF with severe aortic stenosis and pulmonary hypertension. 9. Recent clavicular fracture. Plan: Hemodialysis not able to complete full treatment due to hypotension yesterday Continue midodrine 10 mg TID Will await family meeting with hospice tomorrow prior to further HD treatments Poor intake, no UF next treatment if family decides to continue
--- NOTE | 2024-07-04 14:21 | P.PN ---
Subjective Progress Note Date: 07/04/24 Case is discussed with signals collector/analyst at bedside with family members, who are all in agreement with hospice, including the patient. Patient himself is having hallucinations and does not appear to have capacity to make reasonable decisions. Patient is not a candidate for transcatheter aortic valve replacem ent due to tenuous medical condition and inability to rehab, multiple broken ribs, broken shoulder, physical debility from prolonged hospitalization. Patient is planning to meet with hospice tomorrow to discuss further management. In discussion with family regarding hemodialysis, they understand that patient is unlikely to receive benefit from hemodialysis and his condition and do want to focus his care primarily on comfort. Pending hospice discussion tomorrow morning. Notably, patient sputum culture did return positive for Pseudomonas, he is presently on cefepime. Gen: In NAD, non-toxic HEENT: normocephalic, atraumatic, hearing acuity is intant, mucous membranes moist CVS: perfusing all extremities well, bilateral pitting edema, Respiratory: symmetric chest expansion, no accessory muscle use, GI: soft, NTTP, ND, : no suprapubic tenderness, no CVA tenderness MSK/Derm: no rashes, cyanosis Neuro: CN II-XII intact, no motor weakness, Hospital course: Patient is an 78-year-old male with past medical history of ESRD status post kidney transplant on hemodialysis, dyslipidemia, severe aortic stenosis, HFrEF EF 30 to 35%, severe pulmonary hypertension who presents to the ED shortness of breath. 06/29/2024 Patient seen and examined at bedside. No events overnight. He states that his shortness of breath is improving. He is to have dialysis today. 06/30/2024 Patient seen and examined at bedside. Hemodialysis yesterday with 2 L taken off. He was relatively hypotensive but remains asymptomatic. Shortness of breath improving. 07/01/2024 Patient seen and examined at bedside. Hemodialysis today. He continues to be hypotensive and asymptomatic on midodrine. Denies chest pain or shortness of breath. Denies abdominal pain. Surgery consulted, no intervention planned. PT to evaluate tomorrow. 07/02/2024 Patient seen and examined at bedside. Overnight he was hypotensive and given 500 mL liter bolus and placed on BiPAP per recommendations of pulmonology. Hemodialysis yesterday removed 1.5 L in total. Denies chest pain, shortness of breath or abdominal pain. Had a lengthy discussion at bedside with family and patient about goals of care determined it was best to obtain more information from hospice care at this time. Assessment/Plan: Patient is a 78-year-old male with past medical history of ESRD on hemodialysis, dyslipidemia, aortic stenosis, HFrEF, severe pulmonary hypertension who presented with shortness of breath. Case was discussed with the ED physician and patient will be admitted to internal medicine service for further evaluation. Acute on chronic hypoxic respiratory failure, suspect multifactorial in setting of fluid overload secondary to ESRD and systolic CHF exacerbation (HFrEF 30 to 35%), unable to rule out community-acquired pneumonia Hypotension Severe aortic stenosis Generalized weakness Resume home Bumex 2 mg p.o. daily Begin metoprolol tartrate 25 mg twice daily continue cefepime 1 mg daily Continue bronchodilators Cardiac monitoring and supplemental oxygen as needed. Baseline O2 2 to 3 L. Hemodialysis is dependent on decision regarding hospice, discussed this with nephrology as well as family at bedside Midodrine 10 mg 3 times daily PT OT consulted Nephrology following for hemodialysis Cardiology following, will follow-up outpatient Pulmonology following Hospice consulted Hypokalemia Given 40 mEq of potassium chloride Possible cholecystitis Transaminitis Initial AST 148, ALT 76, ALP 236. Continue to monitor LFTs Discontinued IV Flagyl General Surgery following, no intervention planned at this time Anemia of chronic disease Hemoglobin of 8.1 Continue to monitor Transfuse if less than 7 NSTEMI type II, possibly secondary to ESRD with CHF exacerbation ACS ruled out by cardiology Peak troponin 0.450, down trended Cardiac telemetry Cardiology following Chronic: Gout allopurinol Dyslipidemia Continue Lipitor 80 mg p.o. at bedtime F: P.o. E: Replete as needed N: Heart healthy A: Fall precautions, PT OT assessment DVT prophylaxis: Heparin 5000 units subcu every 8 hours CODE STATUS: No code Discussed with: Patient Anticipated discharge place: Hospice Patient is severely ill, prognosis guarded. Objective - Vital Signs Vital signs: Vital Signs Temp 97.2 F L 07/04/24 12:00 Pulse 74 07/04/24 12:03 Resp 16 07/04/24 12:00 BP 97/51 07/04/24 12:00 Pulse Ox 99 07/04/24 12:00 FiO2 50 07/02/24 15:52 Intake & Output 01/07/04/24 07/04/24 18:59 06:59 18:59 Intake Total 910 10 130 Output Total 600 0 Balance 310 10 130 Intake: IV 10 10 10 Invasive Line 2 10 10 10 Oral 300 120 Hemodialysis 600 Output: Urine 0 Hemodialysis 431 Hemodialysis Net Amount 169 Other: Voiding Method Diaper Diaper Diaper # Voids 1 # Bowel Movements 1 - Labs CBC & Chem 7: 07/04/24 10:32 07/04/24 10:32 Labs: Abnormal Lab Results - Last 24 Hours (Table) 07/04/24 07/04/24 Range/Units 10:32 10:32 RBC 2.54 L (4.30-5.90) m/uL Hgb 8.6 L (13.0-17.5) gm/dL Hct 27.5 L (39.0-53.0) % MCV 108.3 H (80.0-100.0) fL RDW 19.8 H (11.5-15.5) % Plt Count 123 L (150-450) k/uL Macrocytosis Marked A Sodium 134 L (137-145) mmol/L Chloride 97 L (98-107) mmol/L BUN 35 H (9-20) mg/dL Creatinine 5.03 H (0.66-1.25) mg/dL Calcium 7.8 L (8.4-10.2) mg/dL AST 276 H (17-59) U/L ALT 137 H (4-49) U/L Alkaline Phosphatase 230 H (38-126) U/L Total Protein 6.2 L (6.3-8.2) g/dL Albumin 2.8 L (3.5-5.0) g/dL Microbiology - Last 24 Hours (Table) 06/27/24 22:07 Blood Culture - Final Blood
[2024-07-05 06:24] LABS: Anisocytosis Slight; Basophils % (A) 1 %; Eosinophils # (A) 0.2 k/uL (0-0.7); Eosinophils % (A) 4 %; HCT 30.7 % (39.0-53.0); HGB 9.3 gm/dL (13.0-17.5); Hypochromasia Marked; Lymphocytes # (A) 0.7 k/uL (1.0-4.8); Lymphocytes % (A) 10 %; MCH 33.2 pg (25.0-35.0); MCHC 30.2 g/dL (31.0-37.0); MCV 110.1 fL (80.0-100.0); Mean Platelet Volume 9.8; Monocytes # (A) 0.5 k/uL (0-1.0); Monocytes % (A) 7 %; Neutrophils # (A) 5.1 k/uL (1.3-7.7); Neutrophils % (A) 76 %; Platelet Count 147 k/uL (150-450); RBC 2.79 m/uL (4.30-5.90); RDW 19.8 % (11.5-15.5); WBC 6.7 k/uL (3.8-10.6)
[2024-07-05 06:27] LABS: Macrocytosis Marked
[2024-07-05 06:37] LABS: Anion Gap 12 mmol/L; Blood Urea Nitrogen 40 mg/dL (9-20); Carbon Dioxide 25 mmol/L (22-30); Chloride 97 mmol/L (98-107); Glucose 82 mg/dL (74-99); Potassium 4.6 mmol/L (3.5-5.1); Sodium 134 mmol/L (137-145)
[2024-07-05 06:38] LABS: African American GFR (CKD) 10 (>60 ml/min/1.73 sqM); Calcium 7.8 mg/dL (8.4-10.2); Non-African American GFR(CKD) 9 (>60 ml/min/1.73 sqM)
[2024-07-05 10:10] VITALS: TEMP 97.5
--- NOTE | 2024-07-05 10:54 | P.PN ---
Subjective Patient is seen in follow-up for end-stage renal disease. Sitting up in bed. Family present at bedside. Met with hospice this morning. Vital signs are stable. General: No acute distress. HEENT: Head exam is unremarkable. LUNGS: No audible rhonchi or wheezes. HEART: Rate and Rhythm are regular. ABDOMEN: Nontender. EXTREMITITES: No edema. Chronic changes noted. Objective - Vital Signs Vital signs: Vital Signs Temp 97.5 F L 07/05/24 08:00 Pulse 60 07/05/24 09:27 Resp 20 07/05/24 08:00 BP 123/70 07/05/24 08:00 Pulse Ox 100 07/05/24 08:00 FiO2 50 07/02/24 15:52 Intake & Output 07/04/24 07/05/24 07/05/24 18:59 06:59 18:59 Intake Total 250 20 Output Total 0 Balance 250 20 Weight 60.5 kg Intake: IV 10 20 Invasive Line 2 10 20 Oral 240 Output: Urine 0 Other: Voiding Method Diaper Diaper Diaper # Bowel Movements 1 1 - Labs CBC & Chem 7: 07/05/24 05:57 07/05/24 05:57 Labs: Abnormal Lab Results - Last 24 Hours (Table) 07/04/24 07/04/24 07/05/24 Range/Units 10:32 10:32 05:57 RBC 2.54 L 2.79 L (4.30-5.90) m/uL Hgb 8.6 L 9.3 L (13.0-17.5) gm/dL Hct 27.5 L 30.7 L (39.0-53.0) % MCV 108.3 H 110.1 H (80.0-100.0) fL MCHC 30.2 L (31.0-37.0) g/dL RDW 19.8 H 19.8 H (11.5-15.5) % Plt Count 123 L 147 L (150-450) k/uL Lymphocytes # 0.7 L (1.0-4.8) k/uL Macrocytosis Marked A Marked A Sodium 134 L (137-145) mmol/L Chloride 97 L (98-107) mmol/L BUN 35 H (9-20) mg/dL Creatinine 5.03 H (0.66-1.25) mg/dL Calcium 7.8 L (8.4-10.2) mg/dL AST 276 H (17-59) U/L ALT 137 H (4-49) U/L Alkaline Phosphatase 230 H (38-126) U/L Total Protein 6.2 L (6.3-8.2) g/dL Albumin 2.8 L (3.5-5.0) g/dL 07/05/24 Range/Units 05:57 RBC (4.30-5.90) m/uL Hgb (13.0-17.5) gm/dL Hct (39.0-53.0) % MCV (80.0-100.0) fL MCHC (31.0-37.0) g/dL RDW (11.5-15.5) % Plt Count (150-450) k/uL Lymphocytes # (1.0-4.8) k/uL Macrocytosis Sodium 134 L (137-145) mmol/L Chloride 97 L (98-107) mmol/L BUN 40 H (9-20) mg/dL Creatinine 5.56 H (0.66-1.25) mg/dL Calcium 7.8 L (8.4-10.2) mg/dL AST (17-59) U/L ALT (4-49) U/L Alkaline Phosphatase (38-126) U/L Total Protein (6.3-8.2) g/dL Albumin (3.5-5.0) g/dL Assessment and Plan Plan: Assessment: 1. End-stage renal disease maintained on hemodialysis on Friday schedule via left upper extremity AV fistula. 2. Acute hypoxic respiratory failure. 3. Pneumonia maintained on antibiotics. 4. Fluid overload. 5. Peripheral arterial disease. 6. Anemia of chronic kidney disease. On Aranesp. 7. Chronic kidney disease mineral bone disease maintained on calcitriol and PhosLo. 8. Acute on chronic systolic CHF with ejection fraction of 35 to 40% with moderate aortic stenosis and pulmonary hypertension. Cardiology following. 9. Recent clavicular fracture. Plan: Hemodialysis tomorrow. Family considering hospice.
[2024-07-05 11:43] VITALS: BP 98/56; RESP 18
[2024-07-05 11:55] VITALS: BMI 18.1
[2024-07-05 12:31] VITALS: PULSE 60
--- NOTE | 2024-07-05 13:53 | P.DS ---
Providers Date of admission: 06/28/24 13:24 Discharge diagnoses; Acute on chronic hypoxic respiratory failure, suspect multifactorial in setting of fluid overload secondary to ESRD and systolic CHF exacerbation (HFrEF 30 to 35%), unable to rule out community-acquired pneumonia Hypotension Severe aortic stenosis Generalized weakness Hypokalemia Possible cholecystitis Transaminitis Anemia of chronic disease NSTEMI type II, possibly secondary to ESRD with CHF exacerbation Chronic: Gout Dyslipidemia Hospital course; 78-year-old male with PMH of ESRD on hemodialysis, dyslipidemia, aortic stenosis, HFrEF, severe pulmonary hypertension presented to the emergency department with shortness of breath. Over the course of his stay his shortness of breath had been improving. He did have some episodes of hypotension. There were discussions at the bedside with the family and the patient will close of care and was determined they would obtain more information hospice care. This morning, the patient and his family met with hospice care and they determined that that was the best next step. He will be discharged to [facility]. Patient sputum culture was positive for Pseudomonas and he was started on cefepime while here in the hospital, he will be discharged on ciprofloxacin for the next 3 days. PHYSICAL EXAMINATION: GENERAL: The patient is alert and oriented x3, not in any acute distress. Well developed, well nourished. HEENT: Pupils are round and equally reacting to light. EOMI. No scleral icterus. No conjunctival pallor. Normocephalic, atraumatic. CARDIOVASCULAR: S1 and S2 present. No murmurs, rubs, or gallops. PULMONARY: Chest is clear to auscultation, no wheezing or crackles. ABDOMEN: Soft, nontender, nondistended, normoactive bowel sounds. No palpable organomegaly. MUSCULOSKELETAL: No joint swelling or deformity. EXTREMITIES: No cyanosis, clubbing, or pedal edema. NEUROLOGICAL: Gross neurological examination did not reveal any focal deficits. SKIN: No rashes. Dictation was produced using [employer] dictation software. please excuse any grammatical, word or spelling errors. Attending physician: Zoë Keane MD Consults: 06/27/24 21:19 Consult Physician Routine Consulting Provider: Raymundo Garcia Consult Reason/Comments: ckd Do you want consulting provider notified?: Yes Consult Physician Routine Consulting Provider: Joey Dubon Consult Reason/Comments: pna Do you want consulting provider notified?: Yes 06/28/24 04:05 Consult Physician Routine Consulting Provider: Manuel Russo Consult Reason/Comments: Elevated tropes, CHF Do you want consulting provider notified?: Yes 06/30/24 15:58 Consult Physician Routine Consulting Provider: Nakul Presley Consult Reason/Comments: suspected cholecystitis Do you want consulting provider notified?: Yes Primary care physician: [facility] Course: I saw and evaluated the patient during the westfall and critical portions of this encounter, and discussed the case in detail with the resident author of this note, I agree with the Assessment and Plan, and my changes, if any, are highlighted in blue. Patient Condition at Discharge: Fair Plan - Discharge Summary Discharge Rx Participant: No New Discharge Prescriptions: New Ciprofloxacin HCl [Cipro] 500 mg PO BID 3 Days #6 tab Continue PARoxetine [Paxil] 10 mg PO DAILY Atorvastatin [Lipitor] 80 mg PO HS #60 tab Na Phos,M-B/Na Phos,Di-Ba [Fleet Adult] 133 ml RECTAL DAILY PRN PRN Reason: Constipation bisacodyL [Dulcolax] 10 mg RECTAL DAILY PRN PRN Reason: Constipation Albuterol Nebulized [Ventolin Nebulized] 2.5 mg INHALATION RT-Q4H PRN PRN Reason: Shortness Of Breath Acetaminophen Tab [Tylenol] 650 mg PO Q8HR PRN PRN Reason: Pain calcitrioL 0.25 mcg PO BENTON Magnesium Hydroxide [Milk of Magnesia Concentrate] 7,200 mg PO DAILY PRN MDD T PRN Reason: Constipation rOPINIRole HCL [Requip] 2 mg PO BID@0800,1700 Calcium Acetate [PhosLo] 2,001 mg PO TID-W/MEALS allopurinoL [Zyloprim] 100 mg PO TUTHSA Midodrine [ProAmatine] 5 mg PO AC-TID Heparin Sodium,Porcine (1 ml) [Heparin Sodium] 5,000 unit SQ Q8HR Famotidine [Pepcid] 20 mg PO DAILY Bumetanide [BUMEX] 2 mg PO DAILY@0600 Discharge Medication List rOPINIRole HCL [Requip] 2 mg PO BID@0800,1700 05/01/22 [History] Calcium Acetate [PhosLo] 2,001 mg PO TID-W/MEALS 08/16/22 [History] allopurinoL [Zyloprim] 100 mg PO TUTHSA 02/12/23 [History] Midodrine [ProAmatine] 5 mg PO AC-TID 09/25/23 [History] PARoxetine [Paxil] 10 mg PO DAILY 03/19/24 [History] Atorvastatin [Lipitor] 80 mg PO HS #60 tab 03/22/24 [Rx] Acetaminophen Tab [Tylenol] 650 mg PO Q8HR PRN 06/28/24 [History] Albuterol Nebulized [Ventolin Nebulized] 2.5 mg INHALATION RT-Q4H PRN 06/28/24 [History] Bumetanide [BUMEX] 2 mg PO DAILY@0600 06/28/24 [History] Famotidine [Pepcid] 20 mg PO DAILY 06/28/24 [History] Heparin Sodium,Porcine (1 ml) [Heparin Sodium] 5,000 unit SQ Q8HR 06/28/24 [History] Magnesium Hydroxide [Milk of Magnesia Concentrate] 7,200 mg PO DAILY PRN MDD T 06/28/24 [History] Na Phos,M-B/Na Phos,Di-Ba [Fleet Adult] 133 ml RECTAL DAILY PRN 06/28/24 [History] bisacodyL [Dulcolax] 10 mg RECTAL DAILY PRN 06/28/24 [History] calcitrioL 0.25 mcg PO BENTON 06/28/24 [History] Ciprofloxacin HCl [Cipro] 500 mg PO BID 3 Days #6 tab 07/05/24 [Rx] Follow up Appointment(s)/Referral(s): Fransisco Pereira MD [Primary Care Provider] - 1-2 days Discharge Disposition: DISCH TO HOSPICE MED FACILTY
--- NOTE | 2024-07-05 14:51 | P.PN ---
Subjective Progress Note Date: 07/05/24 On 07/05/2024, patient is being seen for a follow-up. Patient is quite lethargic and weak and quite obtunded and the family is at the bedside. Reviewed the records. Reviewed the labs. The patient is known to have an incisional disease and furthermore, the patient has coronary artery disease, cardiomyopathy with moderate to severe aortic stenosis. ATA was done in April 2024 revealing severe aortic stenosis with an ejection fraction of 35%. The patient was hospitalized for worsening shortness of breath. He was free of any chest pain. Response to treatment has been somewhat suboptimal. The patient's family has opted for end-of-life care/hospice. He is currently on 2 L of oxygen by nasal c annula. Hemodynamically stable. No plans for hemodialysis. White cell count is 6.7 with a hemoglobin 9.3 and a platelet count of 147. BUN is 40 with a creatinine of 5.5 and a sodium levels at 134. Objective - Vital Signs Vital signs: Vital Signs Temp 97.5 F L 07/05/24 08:00 Pulse 52 L 07/05/24 11:41 Resp 18 07/05/24 11:41 BP 98/56 07/05/24 11:41 Pulse Ox 100 07/05/24 11:41 FiO2 50 07/02/24 15:52 Intake & Output 07/04/24 07/05/24 07/05/24 18:59 06:59 18:59 Intake Total 250 20 Output Total 0 Balance 250 20 Weight 60.5 kg Intake: IV 10 20 Invasive Line 2 10 20 Oral 240 Output: Urine 0 Other: Voiding Method Diaper Diaper Diaper # Bowel Movements 1 1 - Exam The patient lethargic, weak, no signs of any respiratory distress on 3 L of oxygen by nasal cannula Head exam is unremarkable. No scleral icterus or corneal arcus noted. Neck is with jugular venous distension, thyromegaly, or carotid bruits. Carotid upstrokes are brisk bilaterally. Lungs are clear to auscultation and percussion. Diminished breath sound lung base especially in the right lung base consistent with pleural effusion Cardiac exam reveals the PMI to be normally sized and situated. Rhythm is regular. First and second heart sounds normal. A harsh systolic ejection murmur grade 4/6 heard over the apex of the left lateral sternal border, no rubs or gallops. Abdominal exam reveals normal bowel sounds, no masses, no organomegaly and no aortic enlargement. Extremities are nonedematous and both femoral and pedal pulses are normal. Examination of the skin revealed no evidence of significant rashes, suspicious appearing nevi or other concerning lesions. Neurologically, the patient is obtunded, lethargic, noncommunicating at this point Cranial nerves are essentially intact. - Labs CBC & Chem 7: 07/05/24 05:57 07/05/24 05:57 Labs: Abnormal Lab Results - Last 24 Hours (Table) 07/05/24 07/05/24 Range/Units 05:57 05:57 RBC 2.79 L (4.30-5.90) m/uL Hgb 9.3 L (13.0-17.5) gm/dL Hct 30.7 L (39.0-53.0) % MCV 110.1 H (80.0-100.0) fL MCHC 30.2 L (31.0-37.0) g/dL RDW 19.8 H (11.5-15.5) % Plt Count 147 L (150-450) k/uL Lymphocytes # 0.7 L (1.0-4.8) k/uL Macrocytosis Marked A Sodium 134 L (137-145) mmol/L Chloride 97 L (98-107) mmol/L BUN 40 H (9-20) mg/dL Creatinine 5.56 H (0.66-1.25) mg/dL Calcium 7.8 L (8.4-10.2) mg/dL Assessment and Plan Plan: Acute on chronic hypoxemic respiratory failure, currently on 3 L/min nasal cannula; chest x-ray interpreted by me to show cardiomegaly, likely bilateral bilateral pleural effusions, right more than left, right hilar and upper lobe opacities or asymmetric pulmonary edema. NT proBNP significantly elevated at 123,000. Bilateral pleural effusion Severe aortic stenosis Pseudomonas aeruginosa pneumonia, currently on cefepime. systolic systolic congestive heart failure End-stage renal disease, undergoes hemodialysis on a Friday, , Friday schedule. History of renal transplant. Anemia of chronic disease Elevated troponins, rule out non-ST elevation AR. Chronic hypoxemic respiratory failure, normally on 2 to 3 L/min nasal cannula 30/12. History of hyperlipidemia. History of traumatic fall, resulting in left scapular fracture and acute compression fracture of T9 without retropulsion. Plan: Prognosis is poor. He is a DO NOT RESUSCITATE patient. Not a candidate transcatheter aortic valve replacement. Family opted for hospice care Pulmonary critical care services will sign off. Discussed the findings with the family
--- NOTE | 2024-07-05 16:00 | P.PN ---
Subjective Progress Note Date: 07/05/24 SURGICAL PROGRESS NOTE CHIEF COMPLAINT: Shortness of breath HISTORY OF PRESENT ILLNESS: Patient admitted to the hospital with pneumonia, acute CHF exacerbation, EF 35% and hypoxic respiratory failure. Surgical service following in regards to cholecystitis. Patient has no abdominal pain. He is tolerating diet. He is more confused today. Per nursing staff patient is being discharged home today with hospice. PHYSICAL EXAM: VITAL SIGNS: Reviewed. GENERAL: Well-developed in no acute distress. ABDOMEN: Soft. Nondistended. Nontender. No tenderness palpation right upper quadrant. No rebound. No guarding. NEUROLOGIC: Confused ASSESSMENT: 1. Chronic cholecystitis. Patient tolerating diet. Nontender right upper quadrant. LFTs could be elevated due to hypotension and fluid overload. No evidence of acute cholecystitis. 2. Severe aortic stenosis 3. End-stage renal disease on hemodialysis PLAN: -Patient being discharged home with hospice -No surgical intervention planned -Recommend low-fat diet Physician Custodial Aide note has been reviewed by physician. Signing provider agrees with the documented findings, assessment, and plan of care. Attestation Patient with chronic cholecystitis. Tolerating diet. Family has opted for home hospice based on patient's current cardiac and pulmonary logic status. No plan for surgical intervention. Mert Singleton, Objective - Vital Signs Vital signs: Vital Signs Temp 97.5 F L 07/05/24 08:00 Pulse 60 07/05/24 12:30 Resp 18 07/05/24 11:41 BP 98/56 07/05/24 11:41 Pulse Ox 100 07/05/24 11:41 FiO2 50 07/02/24 15:52 Intake & Output 07/04/24 07/05/24 07/05/24 18:59 06:59 18:59 Intake Total 250 20 Output Total 0 Balance 250 20 Weight 60.5 kg 60.5 kg Intake: IV 10 20 Invasive Line 2 10 20 Oral 240 Output: Urine 0 Other: Voiding Method Diaper Diaper Diaper # Bowel Movements 1 1 - Labs CBC & Chem 7: 07/05/24 05:57 07/05/24 05:57 Labs: Abnormal Lab Results - Last 24 Hours (Table) 07/05/24 07/05/24 Range/Units 05:57 05:57 RBC 2.79 L (4.30-5.90) m/uL Hgb 9.3 L (13.0-17.5) gm/dL Hct 30.7 L (39.0-53.0) % MCV 110.1 H (80.0-100.0) fL MCHC 30.2 L (31.0-37.0) g/dL RDW 19.8 H (11.5-15.5) % Plt Count 147 L (150-450) k/uL Lymphocytes # 0.7 L (1.0-4.8) k/uL Macrocytosis Marked A Sodium 134 L (137-145) mmol/L Chloride 97 L (98-107) mmol/L BUN 40 H (9-20) mg/dL Creatinine 5.56 H (0.66-1.25) mg/dL Calcium 7.8 L (8.4-10.2) mg/dL
--- NOTE | 2024-07-06 18:12 | CDI ---
Documentation Clarification Form Date: 07/06/2024 05:48:18 PM From: Desiree Caldera Phone: Admit Date: 06/28/2024 01:24:00 PM Patient Name: John Benedict Visit Number: [id number] Discharge Date: 07/05/2024 03:45:00 PM ATTENTION: The Clinical Documentation Specialists (CDI) and [facility] Coding Staff appreciate your assistance in clarifying documentation. Please respond to the clarification below the line at the bottom and electronically sign. The CDI & [facility] Coding staff will review the response and follow-up if needed. Please note: Queries are made part of the Legal Health Record. If you have any questions, please contact the author of this message via ITS. Doctor/Provider: Raymundo Garcia There is documentation of CKD mineral bone disorder. Additional clarification is requested. History/Risk Factors: 78yo M, ACHRF, fluid overload, ESRD, ACHRF, Pseudomonas PNA, hypotension, MR, TR, AR, hypokalemia, cholecystitis, transaminases, anemia, NSTEMI type II,gout, HLD Clinical Indicators: Calcium 7.4- 8.3 Treatment: maintained on calcitriol and PhosLo Is there a more specific diagnosis that is clinically appropriate for this patient? [ x] Renal osteodystrophy [ ] CKD mineral bone disorder, NOS [ ] Other, please specify [ ] Unable to determine (Template Last Revised: August 2020) MTDD
== END 2024-07-05 15:45 | disposition hospice, home (50) | DRG 177 ==
LOC: EC 18:41 → 3SCARD 21:21 → OBSVTOIN 06-28 13:24 → 3SCARD 06-28 20:36
PROVIDERS: ADMIT Internal Medicine; ATTEND Internal Medicine
PROC: 5A1D70Z Performance of Urinary Filtration, Intermittent, Less than 6 Hours Per Day (ICD-10-PCS; 2024-06-28)
PROC: 5A09357 Assistance with Respiratory Ventilation, Less than 24 Consecutive Hours, Continuous Positive Airway Pressure (ICD-10-PCS; principal; 2024-07-02)
DX: J15.1 Pneumonia due to Pseudomonas (principal); I21.A1 Myocardial infarction type 2; J96.21 Acute and chronic respiratory failure with hypoxia; I50.43 Acute on chronic combined systolic (congestive) and diastolic (congestive) heart failure; N18.6 End stage renal disease; S22.079A Unspecified fracture of T9-T10 vertebra, initial encounter for closed fracture; I27.22 Pulmonary hypertension due to left heart disease; Z51.5 Encounter for palliative care; Z66 Do not resuscitate; T86.12 Kidney transplant failure; S22.31XA Fracture of one rib, right side, initial encounter for closed fracture; Z99.2 Dependence on renal dialysis; S42.009A Fracture of unspecified part of unspecified clavicle, initial encounter for closed fracture; S42.102A Fracture of unspecified part of scapula, left shoulder, initial encounter for closed fracture; J44.0 Chronic obstructive pulmonary disease with (acute) lower respiratory infection; F05 Delirium due to known physiological condition; I73.9 Peripheral vascular disease, unspecified; D63.1 Anemia in chronic kidney disease; I08.3 Combined rheumatic disorders of mitral, aortic and tricuspid valves; K81.1 Chronic cholecystitis; I25.5 Ischemic cardiomyopathy; K81.9 Cholecystitis, unspecified; I95.3 Hypotension of hemodialysis; E87.6 Hypokalemia; Z99.81 Dependence on supplemental oxygen; I25.10 Atherosclerotic heart disease of native coronary artery without angina pectoris; H91.90 Unspecified hearing loss, unspecified ear; R00.1 Bradycardia, unspecified; Z53.8 Procedure and treatment not carried out for other reasons; N25.0 Renal osteodystrophy; E78.5 Hyperlipidemia, unspecified; I49.3 Ventricular premature depolarization; M10.9 Gout, unspecified; R74.01 Elevation of levels of liver transaminase levels; Z86.73 Personal history of transient ischemic attack (TIA), and cerebral infarction without residual deficits; Z95.5 Presence of coronary angioplasty implant and graft; Z86.14 Personal history of Methicillin resistant Staphylococcus aureus infection; Z87.891 Personal history of nicotine dependence; Z79.899 Other long term (current) drug therapy; Z79.82 Long term (current) use of aspirin; Z91.81 History of falling
CPT/HCPCS: 36415; 71045; 71046; 76705; 80048; 80053; 82728; 83540; 83550; 83605; 83735; 83880; 84145; 84484; 85025; 85027; 85610; 85730; 86706; 87040; 87070; 87077; 87186; 87205; 87340; 87636; 90935; 93005; 93306; 94640; 94660; 94760; 96361; 96365; 96367; 96375; 96376; 99291